=== PATIENT | female | born 1940 | race Caucasian/White ===

== ENCOUNTER 2024-01-05 13:37 | Emergency (ER) | payer MEDICARE, SELFPAY ==
[2024-01-05] VITALS (9 sets, daily range): BP systolic 96–121; BP diastolic 52–88; PULSE 53–131; TEMP 35.8; O2SAT 78–97; BMI 40.4
--- NOTE | 2024-01-05 13:48 | ED.FALL1 ---
HPI HPI - Fall General Chief Complaint: Fall Stated Complaint: GENERAL WEAKNESS/FALL Time Seen by Provider: 01/05/24 13:48 Source: patient and family Mode of arrival: ambulance History of Present Illness HPI Narrative: This patient brought to us by ambulance from her home. Apparently came home from work and found her laying on the floor. She was fine at 630 this morning when he left for work. She was talking to him and was fine. She is able to give his history that she was at home and adjusting her drapes when she turned around she tripped on the speaker. She could not get up to her came home. She is complaining of severe pain in her left shoulder area. She does take blood thinners and has minor contusions to the forehead but denies any severe headache. She also has pain in her right hip and knee. She has not had syncopal episodes and as I said seems to be a pretty reliable historian in regards to what happened today. She denies any chest pain or abdominal pain. Related Data Home Medications ?Medication ?Instructions ?Recorded ?Confirmed diltiazem HCl 180 mg 180 mg PO Q24H 01/05/24 01/05/24 capsule,extended release 24 hr metoprolol tartrate 50 mg tablet 50 mg PO Q12H 01/05/24 01/05/24 simvastatin 10 mg tablet 10 mg PO DAILY 01/05/24 01/05/24 warfarin 2.5 mg tablet 2.5 mg PO .COMPLEX 01/05/24 01/05/24 Allergies Allergy/AdvReac Type Severity Reaction Status Date / Time No Known Drug Allergies Allergy Verified 01/05/24 13:50 Opioid HPI Opioid Management Most Recent Pain and Opioid Data: Last Pain Scale 10 01/05/24 14:35 Last MAR Pain Assessment 01/05/24 14:03 Exam Narrative Exam Narrative: This patient was brought to us by paramedics on a [place] collar and backboard. She was seen immediately on arrival here. Her GCS is 15 she is awake alert and is able to describe the event. However she does appear both chronically ill. Her vital signs were noted she does have some tachycardia. She has a minor abrasion to the left frontal area. She has extreme pain in the right lower extremity and also left shoulder are her 2 areas of complaint. She was kept on the backboard and collar until all imaging was completed. She has good breath sounds bilaterally and there is no respiratory distress. Heart rate and rhythm are normal. Abdomen is benign with no pain with pelvic rocking. She is able to move the left lower extremity without too much difficulty but has a lot of pain in her femur area on the right side. MDM - Fall MDM Narrative Medical decision making narrative: Extensive imaging was done and consolidation the findings include a small 4 mm subdural hematoma that may be acute. There is no midline shift. She has a mid shaft fracture with bayonet apposition of the right femur. She has a left humeral head fracture. Her white blood cell count is substantially elevated. She has white blood cells in her urine. Her lactate level substantially elevated. She was started on antibiotic therapy intravenously early on and was given 2 L of fluid. As soon as we receive the CT report on her had [facility] was summoned and I gave report to the ER physician Dr. Brar in [facility]. He is excepted the case and transfer. At the time of report her vital signs were stable. The was updated to the serious nature of all these medical problems. Discharge Plan Discharge Chief Complaint: Fall Clinical Impression: Sepsis, Acute subdural hematoma, Femur fracture, right, Closed left humeral fracture Patient Disposition: [facility] Time of Disposition Decision: 15:56 Condition: Critical Prescriptions / Home Meds: No Action diltiazem HCl 180 mg capsule,extended release 24hr 180 mg PO Q24H metoprolol tartrate 50 mg tablet 50 mg PO Q12H simvastatin 10 mg tablet 10 mg PO DAILY warfarin 2.5 mg tablet 2.5 mg PO .COMPLEX Rx Instructions: 2.5 mg orally Take 2 tablets by mouth on Friday and 1 tablet by mouth on all other days; Print Language: Telugu Referrals: Physician,Non-Staff, [Physician] - 1 week
--- NOTE | 2024-01-05 13:49 | XR_ITS ---
The [address] [address] Patient Name: MARIA GAUDALUPE JAIN MRN: [id number] date: 1940 Sex: F Assigned Patient Location: ER Current Patient Location: ER Accession/Order Number: [id number] Exam Date: 01/05/2024 14:40 Report Date: 01/05/2024 15:31 At the request of: LAZARA ASHFORD Procedure: XR chest 1V EXAM: XR shoulder LT min 2V, XR chest 1V HISTORY: Fall COMPARISON: CT chest study dated 05/21/2016, left humerus study dated 04/17/2016 TECHNIQUE: 2 views of the left shoulder were obtained. FINDINGS: There is a comminuted fracture of the left humeral head with likely involvement of the left humeral neck. Major fracture line is transversely oriented. Impaction and/or overriding of major fracture fragments possibly up to 3 cm. Mild to moderate separation of fracture fragments. No obvious dislocation. Acromioclavicular joint appears grossly intact. Soft tissues are grossly within normal limits. AP view of the chest was obtained. FINDINGS: Heart is mildly enlarged. Mild ill-defined increased density overlying the left hemithorax may represent pleural effusion, atelectatic and/or infiltrative changes. There are what appear to be mild to moderately displaced fractures of the lateral left sixth and seventh ribs. Possibility of left hemothorax may at least be considered. No obvious pneumothorax. Comminuted fracture of the left humeral head/neck as noted above. XR/XR chest 1V IMPRESSION: Left shoulder study demonstrates comminuted fracture of left humeral head with likely involvement of the left humeral neck as described. Chest study demonstrates left rib fractures as noted. Ill-defined mild increased density overlying the left hemithorax which may represent mild atelectatic and/or infiltrative changes. Left pleural effusion, possibility of left hemothorax may at least be considered. No obvious pneumothorax. Follow-up as needed. Electronically authenticated by: TAINA HENNING Date: 01/05/2024 15:31
--- NOTE | 2024-01-05 13:49 | CT_ITS ---
The [address] [address] Patient Name: MARIA GUADALUPE JAIN MRN: [facility]:[id number] date: 1940 Sex: F Assigned Patient Location: ER Current Patient Location: ER Accession/Order Number: [id number] Exam Date: 01/05/2024 14:40 Report Date: 01/05/2024 15:28 At the request of: JOE BRODY Procedure: CT cervical spine wo con EXAM: CT head/brain wo con, CT cervical spine wo con HISTORY: Unwitnessed fall, found down COMPARISON: CT head 06/21/2018. TECHNIQUE: Axial noncontrast CT imaging of the head and cervical spine was performed with coronal and sagittal reformats. This CT exam was performed using one or more of the following dose reduction techniques: Automated exposure control, adjustment of the MA and/or kV according to patient size, or use of iterative reconstruction technique. FINDINGS: CT head Calvarium/skull base: No evidence of acute fracture or destructive lesion. Mastoids and middle ears demonstrate no substantial mucosal disease. Bilateral [place] ocular lens replacements area Paranasal sinuses: No air fluid levels. Brain: Right cerebral convexity extra-axial collection which is minimally more hyperdense compared to CSF greater along the frontal convexity measuring up to 4 mm in diameter consistent with age-indeterminate subdural hemorrhage. No acute large vascular territory infarct. Remote right basal ganglia, internal capsule and prasad radiata infarct. No mass lesion or mass effect. No hydrocephalus. CT cervical spine Alignment: No substantial subluxation. Vertebrae: Vertebral body heights are maintained. No fracture. Craniocervical junction: No focal abnormality. Degenerative changes: Moderate degenerative change greater involving the lower cervical spine with multilevel advanced disc height loss and sclerotic degenerative endplate change. Small posterior disc osteophyte complexes are present at multiple levels most prominent at C6-C7 and C7-T1 with resulting likely mild canal stenosis. Multilevel moderate and/or advanced facet arthropathy with mild and/or moderate uncovertebral arthropathy is noted with multilevel mild foraminal stenosis. There is advanced left facet arthropathy at C4-C5. Additional Comments: Atherosclerotic change. Visualized portion of the upper lungs are clear. CT/CT cervical spine wo con IMPRESSION: 1. Small age-indeterminate right cerebral convexity subdural hemorrhage greater anteriorly measuring up to 4 mm with minimal mass effect on adjacent brain parenchyma. This is near CSF attenuation suggesting this subacute hemorrhage, although hyperacute hemorrhage cannot be excluded. 2. 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 3. No acute fracture or traumatic malalignment of the cervical spine. 4. Degenerative change of the cervical spine detailed above. Notification of Results Provider/Agent notified: Dr. Joe Brody Time/Date notified: 01/05/2024 1:24 PM MDT Notifying Staff: Dr. Erickson Electronically authenticated by: YESI ERICKSON Date: 01/05/2024 15:28
--- NOTE | 2024-01-05 13:49 | CT_ITS ---
The [address] [address] Patient Name: MARIA GUADALUPE JAIN MRN: [facility]:[id number] date: 1940 Sex: F Assigned Patient Location: ER Current Patient Location: ER Accession/Order Number: [id number] Exam Date: 01/05/2024 14:40 Report Date: 01/05/2024 15:28 At the request of: JOE BRODY Procedure: CT head/brain wo con EXAM: CT head/brain wo con, CT cervical spine wo con HISTORY: Unwitnessed fall, found down COMPARISON: CT head 06/21/2018. TECHNIQUE: Axial noncontrast CT imaging of the head and cervical spine was performed with coronal and sagittal reformats. This CT exam was performed using one or more of the following dose reduction techniques: Automated exposure control, adjustment of the MA and/or kV according to patient size, or use of iterative reconstruction technique. FINDINGS: CT head Calvarium/skull base: No evidence of acute fracture or destructive lesion. Mastoids and middle ears demonstrate no substantial mucosal disease. Bilateral [place] ocular lens replacements area Paranasal sinuses: No air fluid levels. Brain: Right cerebral convexity extra-axial collection which is minimally more hyperdense compared to CSF greater along the frontal convexity measuring up to 4 mm in diameter consistent with age-indeterminate subdural hemorrhage. No acute large vascular territory infarct. Remote right basal ganglia, internal capsule and prasad radiata infarct. No mass lesion or mass effect. No hydrocephalus. CT cervical spine Alignment: No substantial subluxation. Vertebrae: Vertebral body heights are maintained. No fracture. Craniocervical junction: No focal abnormality. Degenerative changes: Moderate degenerative change greater involving the lower cervical spine with multilevel advanced disc height loss and sclerotic degenerative endplate change. Small posterior disc osteophyte complexes are present at multiple levels most prominent at C6-C7 and C7-T1 with resulting likely mild canal stenosis. Multilevel moderate and/or advanced facet arthropathy with mild and/or moderate uncovertebral arthropathy is noted with multilevel mild foraminal stenosis. There is advanced left facet arthropathy at C4-C5. Additional Comments: Atherosclerotic change. Visualized portion of the upper lungs are clear. CT/CT head/brain wo con IMPRESSION: 1. Small age-indeterminate right cerebral convexity subdural hemorrhage greater anteriorly measuring up to 4 mm with minimal mass effect on adjacent brain parenchyma. This is near CSF attenuation suggesting this subacute hemorrhage, although hyperacute hemorrhage cannot be excluded. 2. 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 3. No acute fracture or traumatic malalignment of the cervical spine. 4. Degenerative change of the cervical spine detailed above. Notification of Results Provider/Agent notified: Dr. Joe Brody Time/Date notified: 01/05/2024 1:24 PM MDT Notifying Staff: Dr. Erickson Electronically authenticated by: YESI ERICKSON Date: 01/05/2024 15:28
[2024-01-05] MEDS: 0.9 % SODIUM CHLORIDE 1,000 ML 999 ML IV ×2 (14:03→15:26)
[2024-01-05] MEDS: MORPHINE SULFATE 2 MG/ML SYRINGE IV ×2 (14:03→15:58)
[2024-01-05 14:05] LABS: Basophils Absolute Auto 0.1 10^3/uL (0.0-0.1); Basophils Percent Auto 0.3 % (0.2-2.0); Hematocrit 37.5 % (36.0-48.0); Hemoglobin 11.6 g/dL (12.0-16.0); Immature Granulocytes Abs Auto 0.15 10^3/uL (0.00-0.03); Immature Granulocytes Pct Auto 0.7 % (0.0-0.5); Lymphocytes Absolute Auto 1.6 10^3/uL (1.2-3.8); Lymphocytes Percent Auto 6.9 % (20.5-60.0); Mean Corpuscular HGB Conc 30.9 g/dL (29.9-35.2); Mean Corpuscular Hemoglobin 30.3 pg (26.7-34.0); Mean Corpuscular Volume 97.9 fL (81.0-99.0); Mean Platelet Volume 12.7 fL (9.5-13.5); Monocytes Absolute Auto 1.6 10^3/uL (0.3-0.8); Monocytes Percent Auto 6.9 % (1.7-12.0); Neutrophils Absolute Auto 19.3 10^3/uL (1.4-6.5); Neutrophils Percent Auto 85.2 % (43.0-75.0); Platelet Count 183 10^3/uL (150-450); Red Blood Count 3.83 10^6/uL (4.20-5.40); Red Cell Distribution Width 14.4 % (11.0-15.0); White Blood Count 22.6 10^3/uL (4.0-11.0)
[2024-01-05 14:21] LABS: Glucometer 309 mg/dL (74-106)
[2024-01-05 14:21] LABS: Alanine Aminotransferase 21 U/L (14-59); Albumin Level 3.1 g/dL (3.4-5.0); Alkaline Phosphatase 88 U/L (46-116); Anion Gap 22.1; Aspartate Amino Transferase 24 U/L (15-37); BUN Creatinine Ratio 13.7; Bilirubin Total 0.7 mg/dL (0.2-1.0); Calcium 8.8 mg/dL (8.5-10.1); Carbon Dioxide 19.2 mmol/L (21.0-32.0); Chloride 106 mmol/L (98-107); Estimated GFR (African America 29 (>=60); Estimated GFR (Non-African Ame 24 (>=60); Globulin 3.1 g/dL; Glucose 299 mg/dL (74-106); Potassium 3.3 mmol/L (3.5-5.1); Sodium 144 mmol/L (136-145); Total Protein 6.2 g/dL (6.4-8.2)
[2024-01-05 14:25] LABS: Lactate/Lactic Acid 8.8 mmol/L (0.4-2.0); Troponin I High Sensitivity 52.3 pg/mL (4.0-51.3)
[2024-01-05 14:37] LABS: Bilirubin Urine NEGATIVE (NEGATIVE); Blood Urine TRACE-I (NEGATIVE); Clarity Urine CLEAR (CLEAR); Color Urine YELLOW (YELLOW); Glucose Urine UA NEGATIVE (NEGATIVE); Ketones Urine NEGATIVE (NEGATIVE); Leukocyte Esterase Urine TRACE (NEGATIVE); Nitrite Urine POSITIVE (NEGATIVE); Protein Urine NEGATIVE (NEG/TRACE); Specific Gravity Urine >=1.030 (1.005-1.025); Urobilinogen Urine 0.2 EU/dL (0.2-1.0); pH Urine 5.5 (5.0-9.0)
[2024-01-05 14:46] LABS: Bacteria Urine LARGE #/HPF (NONE SEEN); Mucus Urine NONE SEEN (NONE SEEN); Squamous Epithelial Cell Urine FEW #/LPF (NONE/RARE)
--- NOTE | 2024-01-05 15:00 | CT_ITS ---
The [address] [address] Patient Name: MARIA GUADALUPE JAIN MRN: [id number] date: 1940 Sex: F Assigned Patient Location: ER Current Patient Location: ER Accession/Order Number: [id number] Exam Date: 01/05/2024 14:40 Report Date: 01/05/2024 15:45 At the request of: LAZARA ASHFORD Procedure: CT pelvis wo con EXAM: CT pelvis wo con HISTORY: Fall COMPARISON: None TECHNIQUE: CT pelvis study was performed without the use of intravenous contrast. Multiple axial images were obtained. Reformatted coronal and sagittal images were obtained and reviewed. FINDINGS: There is an oblique fracture of the likely middle one third of the right femoral shaft with a greater than one shaft's width medial displacement of the distal fracture fragment. Approximately 3.5 cm overriding of the fracture fragments. Moderate lateral angulation at the fracture site. Degenerative changes about the hip joints, [id number] on the right and mild on the left. No convincing evidence of femoral head or neck fracture. No convincing evidence of pelvic fracture. Sacroiliac joints appear grossly intact. [id number] degenerative changes visualized lower lumbar spine. Partially visualized Vastus medialis, intermedius and lateralis muscles on the right appear enlarged, assumed assumed to be related to edema and/or hematoma secondary to the fracture. Similar considerations though lesser findings suggested involving the more posterior muscles. Assumed lobulated uterus which may be related to mild fibroid changes.. No obvious adnexal mass. Maldonado catheter in the bladder with air in the bladder likely related to catheterization. Bladder is contracted and not well assessed. Moderate diverticulosis of the sigmoid colon, no obvious acute diverticulitis. CT/CT pelvis wo con IMPRESSION: CT pelvis study demonstrates displaced and angulated fracture of the right femoral shaft as described. Swelling of the adjacent musculature laterally suspect for edema and/or hematoma related to the fracture. Similar considerations though lesser findings suggested involving the more posterior muscles. Degenerative changes as noted. Assumed lobulated uterus which may be related to mild fibroid changes. Electronically authenticated by: TAINA HENNING Date: 01/05/2024 15:45
--- NOTE | 2024-01-05 15:00 | XR_ITS ---
The [address] [address] Patient Name: MARIA GUADALUPE JAIN MRN: [id number] date: 1940 Sex: F Assigned Patient Location: ER Current Patient Location: ER Accession/Order Number: [id number] Exam Date: 01/05/2024 14:40 Report Date: 01/05/2024 15:31 At the request of: LAZARA ASHFORD Procedure: XR shoulder LT min 2V EXAM: XR shoulder LT min 2V, XR chest 1V HISTORY: Fall COMPARISON: CT chest study dated 05/21/2016, left humerus study dated 04/17/2016 TECHNIQUE: 2 views of the left shoulder were obtained. FINDINGS: There is a comminuted fracture of the left humeral head with likely involvement of the left humeral neck. Major fracture line is transversely oriented. Impaction and/or overriding of major fracture fragments possibly up to 3 cm. Mild to moderate separation of fracture fragments. No obvious dislocation. Acromioclavicular joint appears grossly intact. Soft tissues are grossly within normal limits. AP view of the chest was obtained. FINDINGS: Heart is mildly enlarged. Mild ill-defined increased density overlying the left hemithorax may represent pleural effusion, atelectatic and/or infiltrative changes. There are what appear to be mild to moderately displaced fractures of the lateral left sixth and seventh ribs. Possibility of left hemothorax may at least be considered. No obvious pneumothorax. Comminuted fracture of the left humeral head/neck as noted above. XR/XR shoulder LT min 2V IMPRESSION: Left shoulder study demonstrates comminuted fracture of left humeral head with likely involvement of the left humeral neck as described. Chest study demonstrates left rib fractures as noted. Ill-defined mild increased density overlying the left hemithorax which may represent mild atelectatic and/or infiltrative changes. Left pleural effusion, possibility of left hemothorax may at least be considered. No obvious pneumothorax. Follow-up as needed. Electronically authenticated by: TAINA HENNING Date: 01/05/2024 15:31
[2024-01-05] MEDS: LEVOFLOXACIN IN DEXTROSE 5 % 500 MG/100 ML PIGGYBACK 100 MG IV (15:10)
--- NOTE | 2024-01-05 15:39 | ECG_ITS ---
The [facility] Test Date: 2024-01-05 Pat Name: MARIA GUADALUPE JAIN Department: Room: - Gender: Female [employer]: : 1940 Requested By: [id number] Order Number: [id number] Reading MD: Measurements Intervals [place] Rate: 126 P: -[id number] [place]: -[id number] QRS: -39 QRSD: 94 T: 125 QT: 344 QTc: 418 Interpretive Statements 74186 Atrial fibrillation with rapid ventricular response [address] depression, probably digitalis effect 26323 Twave abnormality, possible lateral ischemia or digitalis effect 5222 Moderate voltage criteria for LVH, may be normal variant 7200 Abnormal left axis deviation 8003 Consistent with pulmonary disease 9150 abnormal ECG Compared to ECG 01/05/2024 14:03:32 No significant changes
[2024-01-05 16:28] LABS: Prothrombin Time 32.8 sec (9.0-11.6)
== END 2024-01-05 16:40 | disposition short-term general hospital (02) ==
PROVIDERS: Emergency Provider Emergency Medicine Emergency Medical Services; PCP Nurse Practitioner Family
DX: S06.5X0A Traumatic subdural hemorrhage without loss of consciousness, initial encounter (principal); A41.9 Sepsis, unspecified organism; S72.301A Unspecified fracture of shaft of right femur, initial encounter for closed fracture; S42.202A Unspecified fracture of upper end of left humerus, initial encounter for closed fracture; W01.10XA Fall on same level from slipping, tripping and stumbling with subsequent striking against unspecified object, initial encounter; Z79.01 Long term (current) use of anticoagulants
CPT/HCPCS: 36415; 36416; 70450; 71045; 72125; 72192; 73030; 80053; 81001; 83605; 84484; 85025; 85610; 93005; 96374; 96375; 96376; 99285

== ENCOUNTER 2024-04-07 14:31 | Outpatient (REF) | payer MEDICARE, SELFPAY ==
[2024-04-07 14:44] LABS: Basophils Percent Auto 0.5 % (0.2-2.0); Eosinophils Absolute Auto 0.1 10^3/uL (0.0-0.7); Eosinophils Percent Auto 1.4 % (0.9-7.0); Hemoglobin 12.3 g/dL (12.0-16.0); Immature Granulocytes Abs Auto 0.02 10^3/uL (0.00-0.03); Immature Granulocytes Pct Auto 0.3 % (0.0-0.5); Lymphocytes Absolute Auto 2.1 10^3/uL (1.2-3.8); Lymphocytes Percent Auto 33.6 % (20.5-60.0); Mean Corpuscular HGB Conc 31.5 g/dL (29.9-35.2); Mean Corpuscular Hemoglobin 29.4 pg (26.7-34.0); Mean Corpuscular Volume 93.3 fL (81.0-99.0); Mean Platelet Volume 12.7 fL (9.5-13.5); Monocytes Absolute Auto 0.5 10^3/uL (0.3-0.8); Monocytes Percent Auto 8.4 % (1.7-12.0); Neutrophils Absolute Auto 3.5 10^3/uL (1.4-6.5); Neutrophils Percent Auto 55.8 % (43.0-75.0); Platelet Count 216 10^3/uL (150-450); Red Blood Count 4.18 10^6/uL (4.20-5.40); Red Cell Distribution Width 15.7 % (11.0-15.0); White Blood Count 6.3 10^3/uL (4.0-11.0)
[2024-04-07 15:02] LABS: Estimated Average Glucose 103 mg/dL; Glycohemoglobin A1C 5.2 % (4.5-6.2)
[2024-04-07 15:08] LABS: INR 1.24; Prothrombin Time 12.9 sec (9.0-11.6)
[2024-04-07 15:28] LABS: Alanine Aminotransferase 13 U/L (14-59); Albumin Globulin Ratio 0.8; Albumin Level 2.9 g/dL (3.4-5.0); Alkaline Phosphatase 122 U/L (46-116); Anion Gap 11.1; Aspartate Amino Transferase 12 U/L (15-37); Bilirubin Total 0.5 mg/dL (0.2-1.0); Calcium 8.9 mg/dL (8.5-10.1); Carbon Dioxide 29.6 mmol/L (21.0-32.0); Chloride 102 mmol/L (98-107); Chol HDL Ratio 2.5; Cholesterol 139 mg/dL (<=200); Estimated GFR (African America >60 (>=60); Estimated GFR (Non-African Ame 57 (>=60); Globulin 3.8 g/dL; Glucose 145 mg/dL (74-106); HDL Cholesterol 55 mg/dL (40-60); Potassium 3.7 mmol/L (3.5-5.1); Sodium 139 mmol/L (136-145); Thyroid Stimulating Hormone 3.942 uIU/mL (0.358-3.740); Total Protein 6.7 g/dL (6.4-8.2); Triglycerides 100 mg/dL (<=150)
== END 2024-04-07 14:32 | disposition home or self-care (01) ==
LOC: LAB 14:31
PROVIDERS: PCP Nurse Practitioner Family; Visit Provider Nurse Practitioner Family
DX: I48.91 Unspecified atrial fibrillation (principal)
CPT/HCPCS: 36415; 80053; 80061; 83036; 83525; 84439; 84443; 85025; 85610

== ENCOUNTER 2024-04-12 11:17 | Outpatient (OUT) | payer MEDICARE, SELFPAY ==
--- OUTSIDE RECORDS SUMMARY | 2024-04-12 11:37 | XMS_ITS | CCD ---
Author Organization [facility] Care Team Providers Care Siderographist Name Role Phone DANIEL ., DR DE LEON Admitting Unavailable HOY ., DR DE LEON Attending Unavailable JOSESITO, FATMATA Primary Care Unavailable HOY ., DR DE LEON Consulting Unavailable HOY ., DR DE LEON Admitting Unavailable HOY ., DR DE LEON Attending Unavailable JOSESITO, FATMATA Primary Care Unavailable HOY ., DR DE LEON Consulting Unavailable HOY ., DR DE LEON Admitting Unavailable HOY ., DR DE LEON Attending Unavailable JOSESITO, FATMATA Primary Care Unavailable HOY ., DR DE LEON Consulting Unavailable JOSESITO, FATMATA Primary Care Unavailable PAY ., DR BAEZ Admitting Unavailable PAY ., DR BAEZ Attending Unavailable HOLSTEIN, DR CONCEPCIÓN Wang Consulting Unavailable PAY ., DR BAEZ Consulting Unavailable YVONNE CHANDLER Consulting Unavailable JOSESITO, FATMATA Admitting Unavailable JOSESITO, FATMATA Attending Unavailable JOSESITO, FATMATA Primary Care Unavailable HOY ., DR DE LEON Admitting Unavailable HOY ., DR DE LEON Attending Unavailable JOSESITO, FATMATA Primary Care Unavailable HOY ., DR DE LEON Consulting Unavailable JOSESITO, FATMATA Admitting Unavailable JOSESITO, FATMATA Attending Unavailable JOSESITO, FATMATA Primary Care Unavailable DR BERTO ALEJO Consulting Unavailable JOSESITO, FATMATA Consulting Unavailable Josesito FOUR ROLL CALENDER OPERATOR - SWITCHBOARD RECEPTIONIST, Fatmata S Primary Care Provide r TAE LAWRENCE Referring Unavailable JOSESITO, FATMATA S Primary Care Unavailable TAE LAWRENCE Referring Unavailable JOSESITO, FATMATA S Primary Care Unavailable TAE LAWRENCE Referring Unavailable JOSESITO, FATMATA S Primary Care Unavailable GER GUZMAN Referring Unavailable JOSESITO, FATMATA S Primary Care Unavailable MOISES SANCHEZ Referring Unavailable MELINDATAE BUSTOS Referring Unavailable JOSESITO, FATMATA S Primary Care Unavailable AUSTIN ZEE Admitting Unavailable AUSTIN ZEE Attending Unavailable JOSESITO, FATMATA S Primary Care Unavailable ADELINE BURLESON Consulting Unavailable EDITH GOMEZ Consulting Unavailable AUSTIN ZEE Referring Unavailable JOSESITO, FATMATA S Primary Care Unavailable AUSTIN ZEE Referring Unavailable JOSESITO, FATMATA S Primary Care Unavailable BECKY FOLEY Consulting Unavailable BECKY FOLEY Admitting Unavailable BECKY FOLEY Attending Unavailable JOSESITO, FATMATA S Primary Care Unavailable GENNY NICOLE Consulting Unavailable AUSTIN ZEE Consulting Unavailable CELINA DIAZ Consulting Unavailable ELENO RODRIGUEZ Consulting Unavailabl e Allergies Allergy Classification Reported Allergen(s) Allergy Type Date of Onset Reaction(s) Facility (2 sources) Sulfonamides (Antibiotic) Drug allergy (disorder) 3 [facility] (3 sources) Penicillins Propensity to adverse reactions to drug 4 [facility] (3 sources) Sulfonamides (Antibiotic) Propensity to adverse reactions to drug 4 [facility] Medications Current Medications Medication Drug Class(es) Dates Sig (Normalized) Sig (Original) dilTIAZem hydrochloride 90 mg oral tablet (3 sources) Calcium Channel Maxime Start: 01-14-2024 take 1 tablet by mouth once daily dilTIAZem (CARDIZEM) 90 MG tablet Take 1 tablet by mouth daily 120 tablet 3 01/14/2024 Active gabapentin 300 mg oral capsule (1 source) Anti-epileptic Agent Start: 01-12-2024 End: 01-22-2024 take 1 capsule by mouth every eight hours gabapentin (NEURONTIN) 300 MG capsule Take 1 capsule by mouth every 8 (eight) hours for 10 days. 30 capsule 0 01/12/2024 01/22/2024 Active methocarbamol 500 mg oral tablet (1 source) Muscle Relaxant Start: 01-12-2024 End: 01-22-2024 take 1 tablet by mouth every six hours methocarbamol (ROBAXIN) 500 MG tablet Take 1 tablet by mouth every 6 hours for 10 days 40 tablet 0 01/12/2024 01/22/2024 Active metoprolol tartrate 50 mg oral tablet (3 sources) beta-Adrenergic Maxime Start: 01-14-2024 take 1 tablet by mouth twice daily metoprolol tartrate (LOPRESSOR) 50 MG tablet Take 1 tablet by mouth 2 times daily 60 tablet 3 01/14/2024 Active oxyCODONE hydrochloride 5 mg oral tablet (3 sources) Opioid Agonist Start: 01-14-2024 End: 02-13-2024 take 0.5 tablet by mouth every six hours as needed for pain oxyCODONE (ROXICODONE) 5 MG immediate release tablet Indications: Displaced fracture of right femoral neck (HCC) Take 0.5 tablets by mouth every 6 hours as needed for Pain for up to 30 days. Patient takes 2.5 mg on Friday/Friday////Friday. And takes 5 mg on Friday Max Daily Amount: 10 mg 15 tablet 0 01/14/2024 02/13/2024 Active sennosides, fpc 1.76 mg/ml oral solution (3 sources) Start: 01-14-2024 take 5 mL by mouth once daily senna (SENOKOT) 8.8 MG/5ML SYRP syrup Take 5 mLs by mouth nightly 105 mL 0 01/14/2024 Active warfarin sodium 5 mg oral tablet (3 sources) Vitamin K Antagonist Start: 01-14-2024 take 1 tablet by mouth once daily warfarin (COUMADIN) 5 MG tablet Take 1 tablet by mouth daily 30 tablet 3 01/14/2024 Active Problems Active Problems Problem Classification Problem Date Documented Date Episodic/Chronic Acute cerebrovascular disease (4 sources) Hematoma of subdural space of neuraxis; Translations: [SDH (subdural hematoma)] Onset: 4 01-05-2024 Chronic Administrative/socia l admission (9 sources) Patient encounter status; Translations: [Other specified counseling] Onset: 4 01-07-2024 Episodic Cardiac dysrhythmias (5 sources) Unspecified atrial fibrillation; Translations: [UNSPECIFIED ATRIAL FIBRILLATION] Onset: 2 Chronic Deficiency and other anemia (2 sources) Anemia, unspecified; Translations: [Anemia, unspecified] Onset: 4 Episodic Disorders of lipid metabolism (1 source) Pure hypercholesterolemia, unspecified; Translations: [PURE HYPERCHOLESTEROLEMIA UNSPEC] Onset: 3 Chronic Fracture of lower limb (6 sources) Closed fracture of shaft of right femur; Translations: [Unspecified fracture of shaft of right femur, initial encounter for closed fracture] Onset: 4 01-06-2024 Episodic Fracture of neck of femur (hip) (1 source) Fracture of unspecified part of neck of right femur, initial encounter for closed fracture; Translations: [Fracture of unspecified part of neck of right femur, initial encounter for closed fracture] Onset: 4 Episodic Fracture of upper limb (7 sources) Closed fracture of proximal left humerus; Translations: [Unspecified fracture of upper end of left humerus, initial encounter for closed fracture] Onset: 4 01-06-2024 Episodic Malaise and fatigue (1 source) Chronic fatigue, unspecified; Translations: [CHRONIC FATIGUE UNSPECIFIED] Onset: 3 Chronic Nutritional deficiencies (1 source) Vitamin D deficiency, unspecified; Translations: [VITAMIN D DEFICIENCY UNSPECIFIED] Onset: 2 Chronic Other nervous system disorders (1 source) Other acute postprocedural pain; Translations: [Other acute postprocedural pain] Onset: 4 Episodic Residual codes; unclassified (1 source) Insomnia, unspecified; Translations: [INSOMNIA UNSPECIFIED] Onset: 3 Episodic Residual codes; unclassified (1 source) Pain, unspecified; Translations: [Pain, unspecified] Onset: 4 Episodic Septicemia (except in labor) (4 sources) Infectious agent in bloodstream; Translations: [Sepsis, unspecified organism] Onset: 4 01-06-2024 Episodic Unclassified (2 sources) Traumatic subdural hemorrhage with loss of consciousness status unknown, initial encounter; Translations: [Traumatic subdural hemorrhage with loss of consciousness status unknown, initial encounter] Onset: 4 Urinary tract infections (1 source) Acute cystitis without hematuria; Translations: [Acute cystitis without hematuria] Onset: 4 Episodic Past or Other Problems Problem Classification Problem Date Documented Da te Episodic/Chronic Malaise and fatigue (4 sources) Other fatigue; Translations: [OTHER FATIGUE] Onset: 03-01-2022 Episodic Other aftercare (1 source) [facility] (current) use of anticoagulants; Translations: [NURSING HOME CURRNT USE ANTICOAGULANTS] Onset: 08-12-2022 Episodic Other aftercare (1 source) [facility] (current) use of aspirin; Translations: [NURSING HOME CURRENT USE OF ASPIRIN] Onset: 08-12-2022 Episodic Other aftercare (2 sources) Other medical terminologist (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 therapy; Translations: [Other senior care (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 therapy] Onset: 07-03-2023 Episodic Other circulatory disease (1 source) Personal history of transient ischemic attack (TIA), and cerebral infarction without residual deficits; Translations: [PERS HX TIA AND CI NO RESID DEFICIT] Onset: 08-12-2022 Episodic Other connective tissue disease (4 sources) Pain in left upper arm; Translations: [PAIN IN LEFT UPPER ARM] Onset: 08-09-2022 Episodic Other connective tissue disease (1 source) Pain in left foot; Translations: [PAIN IN LEFT FOOT] Onset: 03-07-2022 Episodic Phlebitis; thrombophlebitis and thromboembolism (1 source) Personal history of other venous thrombosis and embolism; Translations: [PERS HX OTH VENOUS THROMBOSIS AND EMBO] Onset: 08-12-2022 Episodic Residual codes; unclassified (1 source) Acquired absence of both cervix and uterus; Translations: [ACQUIRED ABSENCE BOTH CERVIX AND UTERUS] Onset: 08-12-2022 Episodic Results Test Name Value Interpretation Reference Range Facility XR FEMUR RIGHT (MIN 2 VIEWS) on 03-17-2024 XR FEMUR RIGHT (MIN 2 VIEWS) History: 83-year-old female status post fixation right femur Comparison: February 09, 2024 Findings: 2 views of the right femur (AP/lateral) in a skeletally mature patient showing redemonstration orthopedic hardware in the form intramedullary nail to right femur. No signs of hardware failure or loosening. Interval signs of callus formation when compared to prior films. No acute complication visualized. Impression: Stable hardware right female with interval healing Interpreted by: Austin Zee DO Signed by: Austin Zee DO 03/17/24 Final result Normal [facility] XR SHOULDER LEFT (MIN 2 VIEW S)on 03-17-2024 XR SHOULDER LEFT (MIN 2 VIEWS) History: 83-year-old female status post left shoulder arthroplasty Comparison: 02/18/2024 Findings: 3 views of the left shoulder (AP/scapular Y/Grashey) in a skeletally mature patient showing redemonstration of left reverse total shoulder arthroplasty without any acute complication visualized. Multiple bony fragments adjacent to proximal humerus, unchanged from prior evaluation. No subluxations or dislocations visualized. Impression: Left reverse shoulder arthroplasty without acute complication Interpreted by: Austin Zee DO Signed by: Austin Zee DO 03/17/24 Final result Normal [facility] XR FEMUR RIGHT (MIN 2 VIEWS) on 02-25-2024 XR FEMUR RIGHT (MIN 2 VIEWS) History: 83yo female with left proximal humerus and right femur fracture Comparison: 01/06/24 Findings: 2 radiographic views of the right femur (AP, lateral) re-demonstrating orthopedic hardware in the form of an intramedullary nail with interlocking screws. No evidence of hardware failure. Interval healing appreciated compared to prior serial imaging. Impression: Right femoral shaft fracture s/p IMN with routine healing ____ Interpreted by: Austin Zee DO Signed by: Austin Zee, 02/25/24 Final result Normal [facility] XR SHOULDER LEFT (MIN 2 VIEW S)on 02-25-2024 XR SHOULDER LEFT (MIN 2 VIEWS) History: 83yo female with left proximal humerus and right femur fracture Comparison: 01/06/24 Findings: 3 radiographic views of the left shoulder (AP, scapular y, grashey) re-demonstrating proximal humerus fracture in unchanged alignment. Interval healing appreciated when compared to prior serial imaging. No new fracture or dislocation. No soft tissue abnormalities. Viewable lung tissue is unremarkable. Impression: Left proximal humerus fracture with routine healing. Interpreted by: Austin Zee DO Signed by: Austin Zee, 02/25/24 Final result Normal [facility] Basic Metab w/rfx MGon 02-22 Anion gap [Moles/Vol] 6 mmol/L Low 9-16 [facility] Comment on above: Performed By: #### B MPX, PT, CBC ####[id number] [place] [address] [facility] Director: Sarath Olivera MD Calcium [Mass/Vol] 8.6 mg/dL Normal 8.6-10.4 [facility] Comment on above: Performed By: #### B MPX, PT, CBC ####[facility] [address] [place] [address] Lab Director: Sarath Olivera MD Chloride [Moles/Vol] 108 mmol/L High 98-107 [facility] Comment on above: Performed By: #### B MPX, PT, CBC ####[facility] [address] [place] [address] Lab Director: Sarath Olivera MD CO2 [Moles/Vol] 30 mmol/L Normal 20-31 [facility] Comment on above: Performed By: #### B MPX, PT, CBC ####[facility] [address] [place] [address] [phone] Director: Sarath Olivera MD Creatinine [Mass/Vol] 0.7 mg/dL Normal 0.50-0.90 [facility] Comment on above: Performed By: #### B MPX, PT, CBC ####[facility] [address] [place] [address] Lab Director: Sarath Olivera MD GFR/1.73 sq M.predicted among non-blacks MDRD (S/P/Bld) [Vol rate/Area] 86 mL/min/{1.73_m2} Normal >60 [facility] Comment on above: Result Comment: These results are not intended for use in patients <18 years of age. eGFR results are calculated without a race factor using the 2020 CKD-EPI equation. Careful clinical correlation is recommended, particularly when comparing to results calculated using previous equations. The CKD-EPI equation is less accurate in patients with extremes of muscle mass, extra-renal metabolism of creatine, excessive creatine ingestion, or following therapy that affects renal tubular secretion. Performed By: #### B MPX, PT, CBC ####[facility] [address] [place] [address] Lab Director: Sarath Olivera MD Glucose [Mass/Vol] 91 mg/dL Normal 74-99 [facility] Comment on above: Performed By: #### B MPX, PT, CBC ####[facility] [address] [place] [address] Lab Director: Sarath Olivera MD Potassium [Moles/Vol] 3.9 mmol/L Normal 3.7-5.3 [facility] Comment on above: Performed By: #### B MPX, PT, CBC ####[facility] [address] [place], [place] [phone] Director: Sarath Olivera MD Sodium [Moles/Vol] 144 mmol/L Normal 136-145 [facility] Comment on above: Performed By: #### B MPX, PT, CBC ####[facility] [address] [place], [place] [phone] Director: Sarath Olivera MD Urea nitrogen [Mass/Vol] 20 mg/dL Normal 8-23 [facility] Comment on above: Performed By: #### B MPX, PT, CBC ####[facility] [address] [place], [place] [address])[phone] Director: Sarath Olivera MD CBCon 02-23-2024 Erythrocyte distribution width (RBC) [Ratio] 17.4 % High 11.8-14.4 [facility] Comment on above: Performed By: #### B MPX, PT, CBC ####[facility] [address] [place], [place] [address])[phone] Director: Sarath Olivera MD Hematocrit (Bld) [Volume fraction] 35.7 % Low 36.3-47.1 [facility] Comment on above: Performed By: #### B MPX, PT, CBC ####[facility] [address] [place], [place] [phone] Director: Sarath Olivera MD Hemoglobin (Bld) [Mass/Vol] 10.5 g/dL Low 11.9-15.1 [facility] Comment on above: Performed By: #### B MPX, PT, CBC ####[facility] [address] [place] [address])[phone] Director: Sarath Olivera MD MCH (RBC) [Entitic mass] 30.0 pg Normal 25.2-33.5 [facility] Comment on above: Performed By: #### B MPX, PT, CBC ####[facility] [address] [place], [place] [address])[phone] Director: Sarath Olivera MD MCHC (RBC) [Mass/Vol] 29.4 g/dL Normal 28.4-34.8 [facility] Comment on above: Performed By: #### B MPX, PT, CBC ####[facility] [address] [place], [place] [address])[phone] Director: Sarath Olivera MD MCV (RBC) [Entitic vol] 102.0 fL Normal 82.6-102.9 [facility] Comment on above: Performed By: #### B MPX, PT, CBC ####[place], [place] [address])[phone] Director: Sarath Olivera MD NRBC Automated 0.0 per 100 WBC Normal 0.0 [facility] Comment on above: Performed By: #### B MPX, PT, CBC ####[facility] [address] [place], [place] [address])[phone] Director: Sarath Olivera MD Platelet mean volume (Bld) [Entitic vol] 11.8 fL Normal 8.1-13.5 [facility] Comment on above: Performed By: #### B MPX, PT, CBC ####[facility] [address] [place], [place] [address])[phone] Director: Sarath Olivera MD Platelets (Bld) [#/Vol] 181 10*3/uL Normal 138-453 [facility] Comment on above: Performed By: #### B MPX, PT, CBC ####[facility] [address] [place], [place] [id number])[phone] Director: Sarath Olivera MD RBC (Bld) [#/Vol] 3.50 10*6/uL Low 3.95-5.11 [facility] Comment on above: Performed By: #### B MPX, PT, CBC ####[facility] [address] [place] [address] [id number])[phone] Director: Sarath Olivera MD WBC (Bld) [#/Vol] 5.8 10*3/uL Normal 3.5-11.3 [facility] Comment on above: Performed By: #### B MPX, PT, CBC ####[address] [address])[phone] Director: Sarath Olivera MD PTon 02-23-2024 INR Coag (PPP) [Relative time] 1.6 {INR} Normal [facility] Comment on above: Result Comment: Therapeutic Range: Moderate Anticoagulant Intensity: INR = 2.0-3.0 High Anticoagulant Intensity: INR = 2.5-3.5 Performed By: #### B MPX, PT, CBC ####[facility] [address] [place] [address])[phone] Director: Sarath Olivera MD PT Coag (PPP) [Time] 18.8 s High 11.7-14.9 [facility] Comment on above: Performed By: #### B MPX, PT, CBC ####[facility] [address] [place], [place] [phone])[phone] Director: Sarath Olivera MD Basic Metab w/rfx MGon 02-21 Anion gap [Moles/Vol] 7 mmol/L Low 9-16 [facility] Comment on above: Performed By: #### B MPX, CBC ####[facility] [address] [place] [address] Lab Director: Sarath Olivera MD Calcium [Mass/Vol] 8.3 mg/dL Low 8.6-10.4 [facility] Comment on above: Performed By: #### B MPX, CBC ####[facility] [address] [place] [address] [id number])[phone] Director: Sarath Olivera MD Chloride [Moles/Vol] 107 mmol/L Normal 98-107 [facility] Comment on above: Performed By: #### B MPX, CBC ####[facility] [address] [place] [address] [phone] Director: Sarath Olivera MD CO2 [Moles/Vol] 28 mmol/L Normal 20-31 [facility] Comment on above: Performed By: #### B MPX, CBC ####[address] [address] Lab Director: Sarath Olivera MD Creatinine [Mass/Vol] 0.9 mg/dL Normal 0.50-0.90 [facility] Comment on above: Performed By: #### B MPX, CBC ####[address] [phone])[phone] Director: Sarath Olivera MD GFR/1.73 sq M.predicted among non-blacks MDRD (S/P/Bld) [Vol rate/Area] 67 mL/min/{1.73_m2} Normal >60 [facility] Comment on above: Result Comment: These results are not intended for use in patients <18 years of age. eGFR results are calculated without a race factor using the 2020 CKD-EPI equation. Careful clinical correlation is recommended, particularly when comparing to results calculated using previous equations. The CKD-EPI equation is less accurate in patients with extremes of muscle mass, extra-renal metabolism of creatine, excessive creatine ingestion, or following therapy that affects renal tubular secretion. Performed By: #### B MPX, CBC ####[address] [address] Lab Director: Sarath Olivera MD Glucose [Mass/Vol] 105 mg/dL High 74-99 [facility] Comment on above: Performed By: #### B MPX, CBC ####[facility] [address] [place], [place] [id number])[phone] Director: Sarath Olivera MD Potassium [Moles/Vol] 4.0 mmol/L Normal 3.7-5.3 [facility] Comment on above: Performed By: #### B MPX, CBC ####[facility] [address] [place], [place] [id number])[phone] Director: Sarath Olivera MD Sodium [Moles/Vol] 142 mmol/L Normal 136-145 [facility] Comment on above: Performed By: #### B MPX, CBC ####[facility] [address] [place], [place] [address])[phone] Director: Sarath Olivera MD Urea nitrogen [Mass/Vol] 24 mg/dL High 8-23 [facility] Comment on above: Performed By: #### B MPX, CBC ####[facility] [address] [place], [place] [address])[phone] Director: Sarath Olivera MD CBCon 02-22-2024 Erythrocyte distribution width (RBC) [Ratio] 17.2 % High 11.8-14.4 [facility] Comment on above: Performed By: #### B MPX, CBC ####[facility] [address] [place], [place] [address])[phone] Director: Sarath Olivera MD Hematocrit (Bld) [Volume fraction] 32.6 % Low 36.3-47.1 [facility] Comment on above: Performed By: #### B MPX, CBC ####[facility] [address] [place], [place] [id number])[phone] Director: Sarath Olivera MD Hemoglobin (Bld) [Mass/Vol] 9.9 g/dL Low 11.9-15.1 [facility] Comment on above: Performed By: #### B MPX, CBC ####[address] [address] Lab Director: Sarath Olivera MD MCH (RBC) [Entitic mass] 30.6 pg Normal 25.2-33.5 [facility] Comment on above: Performed By: #### B MPX, CBC ####[facility] [address] [place] [address])[phone] Director: Sarath Olivera MD MCHC (RBC) [Mass/Vol] 30.4 g/dL Normal 28.4-34.8 [facility] Comment on above: Performed By: #### B MPX, CBC ####[place], [place] [address])[phone] Director: Sarath Olivera MD MCV (RBC) [Entitic vol] 100.6 fL Normal 82.6-102.9 [facility] Comment on above: Performed By: #### B MPX, CBC ####[address] [address] Lab Director: Sarath Olivera MD NRBC Automated 0.0 per 100 WBC Normal 0.0 [facility] Comment on above: Performed By: #### B MPX, CBC ####[facility] [address] [place] [address] Lab Director: Sarath Olivera MD Platelet mean volume (Bld) [Entitic vol] 12.0 fL Normal 8.1-13.5 [facility] Comment on above: Performed By: #### B MPX, CBC ####[facility] [address] [place] [address] Lab Director: Sarath Olivera MD Platelets (Bld) [#/Vol] 192 10*3/uL Normal 138-453 [facility] Comment on above: Performed By: #### B MPX, CBC ####[facility] [address] [place], [place] [phone] Director: Sarath Olivera MD RBC (Bld) [#/Vol] 3.24 10*6/uL Low 3.95-5.11 [facility] Comment on above: Performed By: #### B MPX, CBC ####[facility] [address] [place], [place] [id number])[phone] Director: Sarath Olivera MD WBC (Bld) [#/Vol] 8.0 10*3/uL Normal 3.5-11.3 [facility] Comment on above: Performed By: #### B MPX, CBC ####[facility] [address] [place] [address] [id number])[phone] Director: Sarath Olivera MD PTon 02-22-2024 INR Coag (PPP) [Relative time] 1.6 {INR} Normal [facility] Comment on above: Result Comment: Therapeutic Range: Moderate Anticoagulant Intensity: INR = 2.0-3.0 High Anticoagulant Intensity: INR = 2.5-3.5 Performed By: #### P T ####[address] [phone])[phone] Director: Sarath Olivera MD PT Coag (PPP) [Time] 18.6 s High 11.7-14.9 [facility] Comment on above: Performed By: #### P T ####[facility] [address] [place], [place] [id number])[phone] Director: Sarath Olivera MD Basic Metab w/rfx MGon 02-20 Anion gap [Moles/Vol] 6 mmol/L Low 9-16 [facility] Comment on above: Performed By: #### D AU, UAMIC #### [facility] [place] [address] [employer] Operator: Sarath Olivera MD Calcium [Mass/Vol] 8.5 mg/dL Low 8.6-10.4 [facility] Comment on above: Performed By: #### Ashley CELESTE, UAMIC #### [facility] [address] [place] [address] [phone] [employer]: Sarath Olivera MD Chloride [Moles/Vol] 108 mmol/L High 98-107 [facility] Comment on above: Performed By: #### Ashley CELESTE, UAMIC #### [facility] [address] [place] [address] [employer]: Sarath Olivera MD CO2 [Moles/Vol] 29 mmol/L Normal 20-31 [facility] Comment on above: Performed By: #### Ashley CELESTE, UAMIC #### [address] [phone] [employer] Operator: Sarath Olivera MD Creatinine [Mass/Vol] 0.7 mg/dL Normal 0.50-0.90 [facility] Comment on above: Performed By: #### Ashley CELESTE UAMIC #### [address] [address] [employer] Operator: Sarath Olivera MD GFR/1.73 sq M.predicted among non-blacks MDRD (S/P/Bld) [Vol rate/Area] 81 mL/min/{1.73_m2} Normal >60 [facility] Comment on above: Result Comment: These results are not intended for use in patients <18 years of age. eGFR results are calculated without a race factor using the 2020 CKD-EPI equation. Careful clinical correlation is recommended, particularly when comparing to results calculated using previous equations. The CKD-EPI equation is less accurate in patients with extremes of muscle mass, extra-renal metabolism of creatine, excessive creatine ingestion, or following therapy that affects renal tubular secretion. Performed By: #### Ashley CELESTE, UAMIC #### [address] [phone] [employer] Operator: Sarath Olivera MD Glucose [Mass/Vol] 122 mg/dL High 74-99 [facility] Comment on above: Performed By: #### Ashley CELESTE, UAMIC #### [facility] [address] [place] [address] [employer] Operator: Sarath Olivera MD Potassium [Moles/Vol] 4.2 mmol/L Normal 3.7-5.3 [facility] Comment on above: Performed By: #### Ashley CELESTE, UAMIC #### [facility] [address] [place] [address] [employer] Operator: Sarath Olivera MD Sodium [Moles/Vol] 143 mmol/L Normal 136-145 [facility] Comment on above: Performed By: #### Ashley CELESTE, UAMIC #### [facility] [address] [place] [address] [employer] Operator: Sarath Olivera MD Urea nitrogen [Mass/Vol] 22 mg/dL Normal 8-23 [facility] Comment on above: Performed By: #### Ashley CELESTE UAMIC #### [facility] [address] [place] [address] [employer] Operator: Sarath Olivera MD CBCon 02-21-2024 Erythrocyte distribution width (RBC) [Ratio] 17.5 % High 11.8-14.4 [facility] Comment on above: Performed By: #### Ashley CELESTE UAMIC #### [facility] [address] [place] [address] [employer] Operator: Sarath Olivera MD Hematocrit (Bld) [Volume fraction] 32.1 % Low 36.3-47.1 [facility] Comment on above: Performed By: #### Ashley CELESTE, UAMIC #### [facility] [address] [place] [address] [employer] Operator: Sarath Olivera MD Hemoglobin (Bld) [Mass/Vol] 9.7 g/dL Low 11.9-15.1 [facility] Comment on above: Performed By: #### Ashley CELESTE UAMIC #### [address] [address] [employer] Operator: Sarath Olivera MD MCH (RBC) [Entitic mass] 30.5 pg Normal 25.2-33.5 [facility] Comment on above: Performed By: #### Ashley CELESTE UAMIC #### [address] [address] [employer] Operator: Sarath Olivera MD MCHC (RBC) [Mass/Vol] 30.2 g/dL Normal 28.4-34.8 [facility] Comment on above: Performed By: #### Ashley CELESTE UAMIC #### [address] [address] [employer] Operator: Sarath Olivera MD MCV (RBC) [Entitic vol] 100.9 fL Normal 82.6-102.9 [facility] Comment on above: Performed By: #### Ashley CELESTE UAMIC #### [address] [address] [employer] Operator: Sarath Olivera MD NRBC Automated 0.0 per 100 WBC Normal 0.0 [facility] Comment on above: Performed By: #### Ashley CELESTE UAMIC #### [address] [address] [employer] Operator: Sarath Olivera MD Platelet mean volume (Bld) [Entitic vol] 11.8 fL Normal 8.1-13.5 [facility] Comment on above: Performed By: #### Ashley CELESTE UAMIC #### [address] [address] [employer] Operator: Sarath Olivera MD Platelets (Bld) [#/Vol] 183 10*3/uL Normal 138-453 [facility] Comment on above: Performed By: #### Ashley CELESTE UAMIC #### [address] [address] [employer] Operator: Sarath Olivera MD RBC (Bld) [#/Vol] 3.18 10*6/uL Low 3.95-5.11 [facility] Comment on above: Performed By: #### Ashley CELESTE UAMIC #### [address] [address] [employer] Operator: Sarath Olivera MD WBC (Bld) [#/Vol] 10.7 10*3/uL Normal 3.5-11.3 [facility] Comment on above: Performed By: #### Ashley CELESTE UAMIC #### [address] [address] [employer] Operator: Sarath Olivera MD PTon 02-21-2024 INR Coag (PPP) [Relative time] 1.6 {INR} Normal [facility] Comment on above: Result Comment: Therapeutic Range: Moderate Anticoagulant Intensity: INR = 2.0-3.0 High Anticoagulant Intensity: INR = 2.5-3.5 Performed By: #### Ashley CELESTE UAMIC #### [address] [address] [employer] Operator: Sarath Olivera MD PT Coag (PPP) [Time] 18.8 s High 11.7-14.9 [facility] Comment on above: Performed By: #### Ashley CELESTE UAMIC #### [address] [address] [employer] Operator: Sarath Olivera MD Basic Metab w/rfx MGon 02-19 Anion gap [Moles/Vol] 6 mmol/L Low 9-16 [facility] Comment on above: Performed By: #### Ashley CELESTE UAMIC #### [address] [address] [employer] Operator: Sarath Olivera MD Calcium [Mass/Vol] 8.6 mg/dL Normal 8.6-10.4 [facility] Comment on above: Performed By: #### Ashley CELESTE, UAMIC #### [address] [address] [employer] Operator: Sarath Olivera MD Chloride [Moles/Vol] 107 mmol/L Normal 98-107 [facility] Comment on above: Performed By: #### Ashley CELESTE, UAMIC #### [address] [address] [employer] Operator: Sarath Olivera MD CO2 [Moles/Vol] 30 mmol/L Normal 20-31 [facility] Comment on above: Performed By: #### Ashley CELESTE, UAMIC #### [address] [address] [employer] Operator: Sarath Olivera MD Creatinine [Mass/Vol] 0.9 mg/dL Normal 0.50-0.90 [facility] Comment on above: Performed By: ###Everton CELESTE UAMIC #### [address] [address] [employer] Operator: Sarath Olivera MD GFR/1.73 sq M.predicted among non-blacks MDRD (S/P/Bld) [Vol rate/Area] 64 mL/min/{1.73_m2} Normal >60 [facility] Comment on above: Result Comment: These results are not intended for use in patients <18 years of age. eGFR results are calculated without a race factor using the 2020 CKD-EPI equation. Careful clinical correlation is recommended, particularly when comparing to results calculated using previous equations. The CKD-EPI equation is less accurate in patients with extremes of muscle mass, extra-renal metabolism of creatine, excessive creatine ingestion, or following therapy that affects renal tubular secretion. Performed By: #### Ashley CELESTE, UAMIC #### [address] [address] [employer] Operator: Sarath Olivera MD Glucose [Mass/Vol] 143 mg/dL High 74-99 [facility] Comment on above: Performed By: #### Ashley CELESTE, UAMIC #### [facility] [address] [place] [address] [employer] Operator: Sarath Olivera MD Potassium [Moles/Vol] 4.2 mmol/L Normal 3.7-5.3 [facility] Comment on above: Performed By: #### Ashley CELESTE, UAMIC #### [facility] [address] [place] [address] [employer] Operator: Sarath Olivera MD Sodium [Moles/Vol] 143 mmol/L Normal 136-145 [facility] Comment on above: Performed By: #### Ashley CELESTE UAMIC #### [facility] [address] [place] [address] [employer] Operator: Sarath Olivera MD Urea nitrogen [Mass/Vol] 20 mg/dL Normal 8-23 [facility] Comment on above: Performed By: #### Ashley CELESTE UAMIC #### [facility] [address] [place] [address] [employer] Operator: Sarath Olivera MD CBCon 02-20-2024 Erythrocyte distribution width (RBC) [Ratio] 17.4 % High 11.8-14.4 [facility] Comment on above: Performed By: #### Ashley CELESTE UAMIC #### [facility] [address] [place] [address] [employer] Operator: Sarath Olivera MD Hematocrit (Bld) [Volume fraction] 32.6 % Low 36.3-47.1 [facility] Comment on above: Performed By: #### Ashley CELESTE UAMIC #### [facility] [address] [place] [address] [employer] Operator: Sarath Olivera MD Hemoglobin (Bld) [Mass/Vol] 9.9 g/dL Low 11.9-15.1 [facility] Comment on above: Performed By: #### Ashley CELESTE UAMIC #### [address] [address] [employer] Operator: Sarath Olivera MD MCH (RBC) [Entitic mass] 30.7 pg Normal 25.2-33.5 [facility] Comment on above: Performed By: #### Ashley CELESTE UAMIC #### [address] [address] [employer] Operator: Sarath Olivera MD MCHC (RBC) [Mass/Vol] 30.4 g/dL Normal 28.4-34.8 [facility] Comment on above: Performed By: #### Ashley CELESTE UAMIC #### [address] [address] [employer] Operator: Sarath Olivera MD MCV (RBC) [Entitic vol] 100.9 fL Normal 82.6-102.9 [facility] Comment on above: Performed By: #### Ashley CELESTE UAMIC #### [address] [address] [employer] Operator: Sarath Olivera MD NRBC Automated 0.0 per 100 WBC Normal 0.0 [facility] Comment on above: Performed By: #### Ashley CELESTE UAMIC #### [address] [address] [employer] Operator: Sarath Olivera MD Platelet mean volume (Bld) [Entitic vol] 11.6 fL Normal 8.1-13.5 [facility] Comment on above: Performed By: #### Ashley CELESTE UAMIC #### [address] [address] [employer] Operator: Sarath Olivera MD Platelets (Bld) [#/Vol] 176 10*3/uL Normal 138-453 [facility] Comment on above: Performed By: #### Ashley CELESTE UAMIC #### [facility] [address] [place] [address] [employer] Operator: Sarath Olivera MD RBC (Bld) [#/Vol] 3.23 10*6/uL Low 3.95-5.11 [facility] Comment on above: Performed By: #### Ashley CELESTE UAMIC #### [address] [address] [employer] Operator: Sarath Olivera MD WBC (Bld) [#/Vol] 12.8 10*3/uL High 3.5-11.3 [facility] Comment on above: Performed By: #### Ashley CELESTE UAMIC #### [address] [address] [employer] Operator: Sarath Olivera MD PTon 02-20-2024 INR Coag (PPP) [Relative time] 1.7 {INR} Normal [facility] Comment on above: Result Comment: Therapeutic Range: Moderate Anticoagulant Intensity: INR = 2.0-3.0 High Anticoagulant Intensity: INR = 2.5-3.5 Performed By: #### Ashley CELESTE UAMIC #### [address] [address] [employer] Operator: Sarath Olivera MD PT Coag (PPP) [Time] 19.9 s High 11.7-14.9 [facility] Comment on above: Performed By: #### Ashley CELESTE UAMIC #### [facility] [address] [place] [address] [employer] Operator: Sarath Olivera MD Basic Metab w/rfx MGon 02-18 Anion gap [Moles/Vol] 7 mmol/L Low 9-16 [facility] Comment on above: Performed By: #### B MPX, PT, CBC ####[facility] [address] [place] [address] Lab Director: Sarath Olivera MD Calcium [Mass/Vol] 8.3 mg/dL Low 8.6-10.4 [facility] Comment on above: Performed By: #### B MPX, PT, CBC ####[facility] [address] [place], [place] [phone] Director: Sarath Olivera MD Chloride [Moles/Vol] 106 mmol/L Normal 98-107 [facility] Comment on above: Performed By: #### B MPX, PT, CBC ####[facility] [address] [place], [place] [address])[phone] Director: Sarath Olivera MD CO2 [Moles/Vol] 27 mmol/L Normal 20-31 [facility] Comment on above: Performed By: #### B MPX, PT, CBC ####[facility] [address] [place], [place] [address])[phone] Director: Sarath Olivera MD Creatinine [Mass/Vol] 0.8 mg/dL Normal 0.50-0.90 [facility] Comment on above: Performed By: #### B MPX, PT, CBC ####[facility] [address] [place], [place] [phone] Director: Sarath Olivera MD GFR/1.73 sq M.predicted among non-blacks MDRD (S/P/Bld) [Vol rate/Area] 78 mL/min/{1.73_m2} Normal >60 [facility] Comment on above: Result Comment: These results are not intended for use in patients <18 years of age. eGFR results are calculated without a race factor using the 2020 CKD-EPI equation. Careful clinical correlation is recommended, particularly when comparing to results calculated using previous equations. The CKD-EPI equation is less accurate in patients with extremes of muscle mass, extra-renal metabolism of creatine, excessive creatine ingestion, or following therapy that affects renal tubular secretion. Performed By: #### B MPX, PT, CBC ####[facility] [address] [place], [place] [phone] Director: Sarath Olivera MD Glucose [Mass/Vol] 174 mg/dL High 74-99 [facility] Comment on above: Performed By: #### B MPX, PT, CBC ####[facility] [address] [place], [place] [id number])[phone] Director: Sarath Olivera MD Potassium [Moles/Vol] 4.3 mmol/L Normal 3.7-5.3 [facility] Comment on above: Performed By: #### B MPX, PT, CBC ####[facility] [address] [place], [place] [phone] Director: Sarath Olivera MD Sodium [Moles/Vol] 140 mmol/L Normal 136-145 [facility] Comment on above: Performed By: #### B MPX, PT, CBC ####[facility] [address] [place], [place] [id number])[phone] Director: Sarath Olivera MD Urea nitrogen [Mass/Vol] 14 mg/dL Normal 8-23 [facility] Comment on above: Performed By: #### B MPX, PT, CBC ####[facility] [address] [place], [place] [phone] Director: Sarath Olivera MD CBCon 02-19-2024 Erythrocyte distribution width (RBC) [Ratio] 17.8 % High 11.8-14.4 [facility] Comment on above: Performed By: #### B MPX, PT, CBC ####[facility] [address] [place], [place] [address])[phone] Director: Sarath Olivera MD Hematocrit (Bld) [Volume fraction] 33.5 % Low 36.3-47.1 [facility] Comment on above: Performed By: #### B MPX, PT, CBC ####[facility] [address] [place] [address] Lab Director: Sarath Olivera MD Hemoglobin (Bld) [Mass/Vol] 9.7 g/dL Low 11.9-15.1 [facility] Comment on above: Performed By: #### B MPX, PT, CBC ####[facility] [address] [place], [place] [phone])[phone] Director: Sarath Olivera MD MCH (RBC) [Entitic mass] 31.1 pg Normal 25.2-33.5 [facility] Comment on above: Performed By: #### B MPX, PT, CBC ####[facility] [address] [place] [address])[phone] Director: Sarath Olivera MD MCHC (RBC) [Mass/Vol] 29.0 g/dL Normal 28.4-34.8 [facility] Comment on above: Performed By: #### B MPX, PT, CBC ####[facility] [address] [place], [place] [address])[phone] Director: Sarath Olivera MD MCV (RBC) [Entitic vol] 107.4 fL High 82.6-102.9 [facility] Comment on above: Performed By: #### B MPX, PT, CBC ####[facility] [address] [place] [address] Lab Director: Sarath Olivera MD NRBC Automated 0.0 per 100 WBC Normal 0.0 [facility] Comment on above: Performed By: #### B MPX, PT, CBC ####[facility] [address] [place] [address] Lab Director: Sarath Olivera MD Platelet mean volume (Bld) [Entitic vol] 11.5 fL Normal 8.1-13.5 [facility] Comment on above: Performed By: #### B MPX, PT, CBC ####[facility] [address] [place], [place] [phone])[phone] Director: Sarath Olivera MD Platelets (Bld) [#/Vol] 165 10*3/uL Normal 138-453 [facility] Comment on above: Performed By: #### B MPX, PT, CBC ####[facility] [address] [place], [place] [phone])[phone] Director: Sarath Olivera MD RBC (Bld) [#/Vol] 3.12 10*6/uL Low 3.95-5.11 [facility] Comment on above: Performed By: #### B MPX, PT, CBC ####[place], [place] [address])[phone] Director: Sarath Olivera MD WBC (Bld) [#/Vol] 10.3 10*3/uL Normal 3.5-11.3 [facility] Comment on above: Performed By: #### B MPX, PT, CBC ####[facility] [address] [place], [place] [id number])[phone] Director: Sarath Olivera MD PTon 02-19-2024 INR Coag (PPP) [Relative time] 1.7 {INR} Normal [facility] Comment on above: Result Comment: Therapeutic Range: Moderate Anticoagulant Intensity: INR = 2.0-3.0 High Anticoagulant Intensity: INR = 2.5-3.5 Performed By: #### B MPX, PT, CBC ####[facility] [address] [place], [place] [phone])[phone] Director: Sarath Olivera MD PT Coag (PPP) [Time] 19.3 s High 11.7-14.9 [facility] Comment on above: Performed By: #### B MPX, PT, CBC ####[facility] [address] [place], [place] [phone] Director: Sarath Olivera MD CBC with Diffon 02-18-2024 Abs. Basophil <0.03 Normal 0.00-0.20 [facility] Comment on above: Performed By: #### P T, CMPX, CDP ####[place], [place] [address])[phone] Director: Sarath Olivera MD Abs. Eosinophil <0.03 Normal 0.00-0.44 [facility] Comment on above: Performed By: #### P T, CMPX, CDP ####[place], [place] [address])[phone] Director: Sarath Olivera MD Abs.Imm.Granulocyte 0.06 k/uL Normal 0.00-0.30 [facility] Comment on above: Performed By: #### P T, CMPX, CDP ####[place], [place] [address])[phone] Director: Sarath Olivera MD Abs.Neutrophil (Seg) 9.40 k/uL High 1.50-8.10 [facility] Comment on above: Performed By: #### P T, CMPX, CDP ####[place], [place] [address])[phone] Director: Sarath Olivera MD Basophils/100 WBC (Bld) 0 % Normal 0-2 [facility] Comment on above: Performed By: #### P T, CMPX, CDP ####[place], [place] [address])[phone] Director: Sarath Olivera MD Eosinophils/100 WBC (Bld) 0 % Low 1-4 [facility] Comment on above: Performed By: #### P T, CMPX, CDP ####[place], [place] [address])[phone] Director: Sarath Olivera MD Erythrocyte distribution width (RBC) [Ratio] 17.9 % High 11.8-14.4 [facility] Comment on above: Performed By: #### P T, CMPX, CDP ####[facility] [address] [place], [place] [id number])[phone] Director: Sarath Olivera MD Hematocrit (Bld) [Volume fraction] 39.2 % Normal 36.3-47.1 [facility] Comment on above: Performed By: #### P T, CMPX, CDP ####[facility] [address] [place], [place] [phone])[phone] Director: Sarath Olivera MD Hemoglobin (Bld) [Mass/Vol] 11.9 g/dL Normal 11.9-15.1 [facility] Comment on above: Performed By: #### P T, CMPX, CDP ####[facility] [address] [place], [place] [phone] Director: Sarath Olivera MD Immature granulocytes/100 WBC (Bld) 1 % High 0 [facility] Comment on above: Performed By: #### P T, CMPX, CDP ####[facility] [address] [place], [place] [id number])[phone] Director: Sarath Olivera MD Lymphocytes (Bld) [#/Vol] 1.51 10*3/uL Normal 1.10-3.70 [facility] Comment on above: Performed By: #### P T, CMPX, CDP ####[facility] [address] [place], [place] [id number])[phone] Director: Sarath Olivera MD Lymphocytes/100 WBC (Bld) 13 % Low 24-43 [facility] Comment on above: Performed By: #### P T, CMPX, CDP ####[facility] [address] [place], [place] [phone] Director: Sarath Olivera MD MCH (RBC) [Entitic mass] 30.9 pg Normal 25.2-33.5 [facility] Comment on above: Performed By: #### P T, CMPX, CDP ####[facility] [address] [place], [place] [phone])[phone] Director: Sarath Olivera MD MCHC (RBC) [Mass/Vol] 30.4 g/dL Normal 28.4-34.8 [facility] Comment on above: Performed By: #### P T, CMPX, CDP ####[facility] [address] [place] [address] [id number])[phone] Director: Sarath Olivera MD MCV (RBC) [Entitic vol] 101.8 fL Normal 82.6-102.9 [facility] Comment on above: Performed By: #### P T, CMPX, CDP ####[facility] [address] [place] [address])[phone] Director: Sarath Olivera MD Monocytes (Bld) [#/Vol] 0.50 10*3/uL Normal 0.10-1.20 [facility] Comment on above: Performed By: #### P T, CMPX, CDP ####[facility] [address] [place] [address] [phone] Director: Sarath Olivera MD Monocytes/100 WBC (Bld) 4 % Normal 3-12 [facility] Comment on above: Performed By: #### P T, CMPX, CDP ####[address] [id number])[phone] Director: Sarath Olivera MD Neutrophil (Seg) 82 % High 36-65 [facility] Comment on above: Performed By: #### P T, CMPX, CDP ####[facility] [address] [place] [address] [id number])[phone] Director: Sarath Olivera MD NRBC Automated 0.0 per 100 WBC Normal 0.0 [facility] Comment on above: Performed By: #### P T, CMPX, CDP ####[facility] [address] [place] [address] [phone] Director: Sarath Olivera MD Platelet mean volume (Bld) [Entitic vol] 11.2 fL Normal 8.1-13.5 [facility] Comment on above: Performed By: #### P T, CMPX, CDP ####[facility] [address] [place], [place] [id number])[phone] Director: Sarath Olivera MD Platelets (Bld) [#/Vol] 254 10*3/uL Normal 138-453 [facility] Comment on above: Performed By: #### P T, CMPX, CDP ####[facility] [address] [place], [place] [id number])[phone] Director: Sarath Olivera MD RBC (Bld) [#/Vol] 3.85 10*6/uL Low 3.95-5.11 [facility] Comment on above: Performed By: #### P T, CMPX, CDP ####[facility] [address] [place] [address] [id number])[phone] Director: Sarath Olivera MD RBC morphology finding Nom (Bld) ANISOCYTOSIS PRESENT Normal [facility] Comment on above: Performed By: #### P T, CMPX, CDP ####[facility] [address] [place], [place] [id number])[phone] Director: Sarath Olivera MD WBC (Bld) [#/Vol] 11.5 10*3/uL High 3.5-11.3 [facility] Comment on above: Performed By: #### P T, CMPX, CDP ####[facility] [address] [place], [place] [id number])[phone] Director: Sarath Olivera MD Comp Metabolic Pr/rfx MGon 0 7- Albumin [Mass/Vol] 3.6 g/dL Normal 3.5-5.2 [facility] Comment on above: Performed By: #### P T, CMPX, CDP ####[facility] [address] [place], [place] [id number])[phone] Director: Sarath Olivera MD Albumin/Glob Ratio 1.0 Normal 1.0-2.5 [facility] Comment on above: Performed By: #### P T, CMPX, CDP ####[facility] [address] [place], [place] [id number])[phone] Director: Sarath Olivera MD Alkaline Phos 131 U/L High 35-104 [facility] Comment on above: Performed By: #### P T, CMPX, CDP ####[facility] [address] [place] [address] [id number])[phone] Director: Sarath Olivera MD ALT [Catalytic activity/Vol] 7 U/L Low 10-35 [facility] Comment on above: Performed By: #### P T, CMPX, CDP ####[facility] [address] [place] [address] [phone] Director: Sarath Olivera MD Anion gap [Moles/Vol] 13 mmol/L Normal 9-16 [facility] Comment on above: Performed By: #### P T, CMPX, CDP ####[facility] [address] [place] [address] [phone] Director: Sarath Olivera MD AST [Catalytic activity/Vol] 26 U/L Normal 10-35 [facility] Comment on above: Performed By: #### P T, CMPX, CDP ####[facility] [address] [place] [address] [phone] Director: Sarath Olivera MD Bilirubin [Mass/Vol] 0.5 mg/dL Normal 0.00-1.20 [facility] Comment on above: Performed By: #### P T, CMPX, CDP ####[facility] [address] [place], [place] [phone] Director: Sarath Olivera MD Calcium [Mass/Vol] 9.0 mg/dL Normal 8.6-10.4 [facility] Comment on above: Performed By: #### P T, CMPX, CDP ####[facility] [address] [place] [address] 85[address])[phone] Director: Sarath Olivera MD Chloride [Moles/Vol] 103 mmol/L Normal 98-107 [facility] Comment on above: Performed By: #### P T, CMPX, CDP ####[facility] [address] [place] [address] 86002[facility])[phone] Director: Sarath Olivera MD CO2 [Moles/Vol] 27 mmol/L Normal 20-31 [facility] Comment on above: Performed By: #### P T, CMPX, CDP ####[address] [address])[phone] Director: Sarath Olivera MD Creatinine [Mass/Vol] 0.9 mg/dL Normal 0.50-0.90 [facility] Comment on above: Performed By: #### P T, CMPX, CDP ####[address] [address])[phone] Director: Sarath Olivera MD GFR/1.73 sq M.predicted among non-blacks MDRD (S/P/Bld) [Vol rate/Area] 61 mL/min/{1.73_m2} Normal >60 [facility] Comment on above: Result Comment: These results are not intended for use in patients <18 years of age. eGFR results are calculated without a race factor using the 2020 CKD-EPI equation. Careful clinical correlation is recommended, particularly when comparing to results calculated using previous equations. The CKD-EPI equation is less accurate in patients with extremes of muscle mass, extra-renal metabolism of creatine, excessive creatine ingestion, or following therapy that affects renal tubular secretion. Performed By: #### P T, CMPX, CDP ####[address] [phone] Director: Sarath Olivera MD Glucose [Mass/Vol] 240 mg/dL High 74-99 [facility] Comment on above: Performed By: #### P T, CMPX, CDP ####[facility] [address] [place], [place] [phone] Director: Sarath Olivera MD Potassium [Moles/Vol] 4.4 mmol/L Normal 3.7-5.3 [facility] Comment on above: Performed By: #### P T, CMPX, CDP ####[facility] [address] [place], [place] [phone] Director: Sarath Olivera MD Protein [Mass/Vol] 6.4 g/dL Low 6.6-8.7 [facility] Comment on above: Performed By: #### P T, CMPX, CDP ####[facility] [address] [place], [place] [phone] Director: Sarath Olivera MD Sodium [Moles/Vol] 143 mmol/L Normal 136-145 [facility] Comment on above: Performed By: #### P T, CMPX, CDP ####[facility] [address] [place], [place] [phone] Director: Sarath Olivera MD Urea nitrogen [Mass/Vol] 10 mg/dL Normal 8-23 [facility] Comment on above: Performed By: #### P T, CMPX, CDP ####[facility] [address] [place], [place] [phone] Director: Sarath Olivera MD PTon 02-18-2024 INR Coag (PPP) [Relative time] 1.4 {INR} Normal [facility] Comment on above: Result Comment: Therapeutic Range: Moderate Anticoagulant Intensity: INR = 2.0-3.0 High Anticoagulant Intensity: INR = 2.5-3.5 Performed By: #### P T, CMPX, CDP ####[facility] [address] [place], [place] [phone] lab Director: Sarath Olivera MD PT Coag (PPP) [Time] 17.1 s High 11.7-14.9 [facility] Comment on above: Performed By: #### P T, CMPX, CDP ####[facility] CenterCoCubes.comTqqbpqupxwdp3799 [place] [address] lab Director: Sarath Olivera MD Type + Screenon 02-18-2024 Type + Screen Sample Expiration 02/20/2024,2359 Arm Band Number [id number] ABO/Rh(D) O POSITIVE Antibody Screen NEGATIVE Unit Number [id number] Blood Component Type Leukocyte Reduced Red Cell Unit Division 00 Status of Unit REL FROM ALLOC Transfusion Status OK TO TRANSFUSE Crossmatch Result COMPATIBLE Unit Number [id number] Blood Component Type Leukocyte Reduced Red Cell Unit Division 00 Status of Unit REL FROM ALLOC Transfusion Status OK TO TRANSFUSE Crossmatch Result COMPATIBLE Normal [facility] Comment on above: Performed By: #### T YS ####[facility] CenterCoCubes.comVqdqrfnmxxmt5295 [place] [address] lab Director: Sarath Olivera MD XR SHOULDER LEFT (MIN 2 VIEW S)on 02-18-2024 XR SHOULDER LEFT (MIN 2 VIEWS) EXAMINATION: XRAY VIEWS OF THE LEFT SHOULDER 02/18/2024 10:57 am COMPARISON: Left shoulder radiographs performed 02/09/2024. HISTORY: ORDERING SYSTEM PROVIDED HISTORY: Post Op in PACU please, thank you!! TECHNOLOGIST PROVIDED HISTORY: Post Op in PACU please, thank you!! FINDINGS: There is a left shoulder arthroplasty without immediate complication. The AC joint is maintained. There is postsurgical change in the adjacent soft tissues. IMPRESSION: Left shoulder arthroplasty without immediate complication. Interpreted by: Lucian Dee MD Signed by: Lucian Dee MD 02/18/24 Final result Normal [facility] APTTon 02-17-2024 aPTT Coag (Bld) [Time] 28.7 s Normal 23.0-36.5 [facility] Comment on above: Result Comment: IV Heparin Therapy Range: 66.0-92.0 sec Performed By: #### P T, PTT ####[address] [address] Lab Director: Sarath Olivera MD aPTT Coag (Bld) [Time] 30.9 s Normal 23.0-36.5 [facility] Comment on above: Result Comment: IV Heparin Therapy Range: 66.0-92.0 sec Performed By: #### P TT, PT ####[address] [address] Lab Director: Sarath Olivera MD FFP, Transfuseon 02-17-2024 FFP, Transfuse Unit Number [id number] Blood Component Type FRESH PLASMA Unit Division 00 Status of Unit TRANSFUSED Transfusion Status OK TO TRANSFUSE Normal [facility] Comment on above: Performed By: #### T FFP ####[address] [address] [facility] Director: Sarath Olivera MD FFP, Transfuse Unit Number [id number] Blood Component Type FRESH PLASMA Unit Division 00 Status of Unit TRANSFUSED Transfusion Status OK TO TRANSFUSE Normal [facility] Comment on above: Performed By: #### T FFP ####[address] [address] Lab Director: Sarath Olivera MD PTon 02-17-2024 INR Coag (PPP) [Relative time] 1.5 {INR} Normal [facility] Comment on above: Result Comment: Therapeutic Range: Moderate Anticoagulant Intensity: INR = 2.0-3.0 High Anticoagulant Intensity: INR = 2.5-3.5 Performed By: #### P T, PTT ####[address] [address] Lab Director: Sarath Olivera MD PT Coag (PPP) [Time] 17.4 s High 11.7-14.9 [facility] Comment on above: Performed By: #### P T, PTT ####[address] [phone] lab Director: Sarath Olivera MD INR Coag (PPP) [Relative time] 1.7 {INR} Normal [facility] Comment on above: Result Comment: Therapeutic Range: Moderate Anticoagulant Intensity: INR = 2.0-3.0 High Anticoagulant Intensity: INR = 2.5-3.5 Performed By: #### P TT, PT ####[facility] [address] [place], [place] [phone] Lab Director: Sarath Olivera MD PT Coag (PPP) [Time] 19.8 s High 11.7-14.9 [facility] Comment on above: Performed By: #### P TT, PT ####[facility] [address] [place], [place] [phone] lab Director: Sartah Olivera MD PT (Whole Blood)on 4 Intl. Normal. Ratio 2.0 Normal [facility] Comment on above: Result Comment: Therapeutic Range: Moderate Anticoagulant Intensity: INR = 2.0-3.0 High Anticoagulant Intensity: INR = 2.5-3.5 PT Coag (PPP) [Time] 23.6 s High 10.4-14.2 [facility] CBC with Auto Differentialon 02-02-2024 Basophils (Bld) [#/Vol] [employer] Basophils/100 WBC (Bld) 0 % 0 - 2 % [facility] Eosinophils (Bld) [#/Vol] 0.08 10*3/uL [facility] Eosinophils/100 WBC (Bld) 1 % 1 - 4 % [facility] Erythrocyte distribution width (RBC) [Ratio] 16.1 % High 11.8 - 14.4 % [facility] Hematocrit (Bld) [Volume fraction] 33.7 % Low 36.3 - 47.1 % [facility] Hemoglobin (Bld) [Mass/Vol] 10.4 g/dL Low 11.9 - 15.1 g/dL [facility] Immature granulocytes (Bld) [#/Vol] [facility] Immature granulocytes/100 WBC (Bld) 0 % 0 [facility] Interpretation and review of laboratory results Abnormal [facility] Lymphocytes/100 WBC (Bld) 34 % 24 - 43 % [facility] Lymphocytes/100 WBC (Bld) 1.89 % [facility] MCH (RBC) [Entitic mass] 30.6 pg 25.2 - 33.5 pg [facility] MCHC (RBC) [Mass/Vol] 30.9 g/dL 28.4 - 34.8 g/dL [facility] MCV (RBC) [Entitic vol] 99.1 fL 82.6 - 102.9 fL [facility] Monocytes/100 WBC (Bld) 8 % 3 - 12 % [facility] Monocytes/100 WBC (Bld) 0.44 % [facility] Neutrophils/100 WBC (Bld) 57 % 36 - 65 % [facility] Nucleated RBC/100 WBC (Bld) [Ratio] 0.0 % 0.0 per 100 WBC [facility] Platelet mean volume (Bld) [Entitic vol] 11.6 fL 8.1 - 13.5 fL [facility] Platelets (Bld) [#/Vol] 250 10*3/uL [facility] RBC (Bld) [#/Vol] 3.40 10*6/uL Low 3.95 - 5.1 1 m/uL [facility] Segmented neutrophils/100 WBC (Bld) 3.17 % [facility] WBC other (Bld) [#/Vol] 5.6 [facility] CBC with Diffon 02-02-2024 Abs. Basophil <0.03 Normal 0.00-0.20 [facility] Comment on above: Performed By: #### C P, CDP #### [facility] [address] [place] [address] [employer] Operator: Concepción De La Torre MD Abs.Imm.Granulocyte <0.03 Normal 0.00-0.30 [facility] Comment on above: Performed By: #### C P, CDP #### [facility] [address] [place], [facility]83 [employer] Operator: Concepción De La Torre MD Abs.Neutrophil (Seg) 3.17 k/uL Normal 1.50-8.[address] [facility] Comment on above: Performed By: #### C P, CDP #### [address] [place], [facility]83 [employer]: Concepción De La Torre MD Basophils/100 WBC (Bld) 0 % Normal 0-2 [facility] Comment on above: Performed By: #### C P, CDP #### [address] [place], [place] [address] [employer]: Concepción De La Torre MD Eosinophils (Bld) [#/Vol] 0.08 10*3/uL Normal 0.00-0.44 [facility] Comment on above: Performed By: #### C P, CDP #### [address] [place], [facility]83 [employer]: Concepción De La Torre MD Eosinophils/100 WBC (Bld) 1 % Normal 1-4 [facility] Comment on above: Performed By: #### C P, CDP #### [address] [place], [facility]83 [employer]: Concepción De La Torre MD Erythrocyte distribution width (RBC) [Ratio] 16.1 % High 11.8-14.4 [facility] Comment on above: Performed By: #### C P, CDP #### [address] [place], [facility]83 [employer]: Concepción De La Torre MD Hematocrit (Bld) [Volume fraction] 33.7 % Low 36.3-47.1 [facility] Comment on above: Performed By: #### C P, CDP #### [address] [place] [id number] [employer]: Concepción De La Torre MD Hemoglobin (Bld) [Mass/Vol] 10.4 g/dL Low 11.9-15.1 [facility] Comment on above: Performed By: #### C P, CDP #### [facility] [address] [place], [place] [phone] [employer]: Concepción De La Torre MD Immature granulocytes/100 WBC (Bld) 0 % Normal 0 [facility] Comment on above: Performed By: #### C P, CDP #### [facility] [address] [place], [place] [phone] [employer]: Concepción De La Torre MD Lymphocytes (Bld) [#/Vol] 1.89 10*3/uL Normal 1.10-3.70 [facility] Comment on above: Performed By: #### C P, CDP #### [address] [place], [facility]83 [employer]: Concepción De La Torre MD Lymphocytes/100 WBC (Bld) 34 % Normal 24-43 [facility] Comment on above: Performed By: #### C P, CDP #### [address] [place], [place] [phone] [employer]: Concepción De La Torre MD MCH (RBC) [Entitic mass] 30.6 pg Normal 25.2-33.5 [facility] Comment on above: Performed By: #### C P, CDP #### [address] [place], [place] [phone] [employer]: Concepción De La Torre MD MCHC (RBC) [Mass/Vol] 30.9 g/dL Normal 28.4-34.8 [facility] Comment on above: Performed By: #### C P, CDP #### [address] [place] [address] [employer] Operator: Concepción De La Torre MD MCV (RBC) [Entitic vol] 99.1 fL Normal 82.6-102.9 [facility] Comment on above: Performed By: #### C P, CDP #### [facility] [address] [place] [address] [employer]: Concepción De La Torre MD Monocytes (Bld) [#/Vol] 0.44 10*3/uL Normal 0.10-1.20 [facility] Comment on above: Performed By: #### C P, CDP #### [facility] [address] [place], [place] [phone] [employer]: Concepción De La Torre MD Monocytes/100 WBC (Bld) 8 % Normal 3-12 [facility] Comment on above: Performed By: #### C P, CDP #### [address] [place] [address] [employer]: Concepción De La Torre MD Neutrophil (Seg) 57 % Normal 36-65 [facility] Comment on above: Performed By: #### C P, CDP #### [address] [place], [place] [phone] [employer]: Concepción De La Torre MD NRBC Automated 0.0 per 100 WBC Normal 0.0 [facility] Comment on above: Performed By: #### C P, CDP #### [address] [place] [address] [employer]: Concepción De La Torre MD Platelet mean volume (Bld) [Entitic vol] 11.6 fL Normal 8.1-13.5 [facility] Comment on above: Performed By: #### C P, CDP #### [address] [place] [address] [employer]: Concepción De La Torre MD Platelets (Bld) [#/Vol] 250 10*3/uL Normal 138-453 [facility] Comment on above: Performed By: #### C P, CDP #### [address] [place] [address] [employer]: Concepción De La Torre MD RBC (Bld) [#/Vol] 3.40 10*6/uL Low 3.95-5.11 [facility] Comment on above: Performed By: #### C P, CDP #### [facility] [address] [place], [place] [phone] [employer]: Concepción De La Torre MD WBC (Bld) [#/Vol] 5.6 10*3/uL Normal 3.5-11.3 [facility] Comment on above: Performed By: #### C P, CDP #### [facility] [address] [place], [place] [phone] [employer]: Concepción De La Torre MD Comp Metabolic Profon 2023 Albumin [Mass/Vol] 2.7 g/dL Low 3.5-5.2 [facility] Comment on above: Performed By: #### C P, CDP #### [facility] [address] [place], [place] [phone] [employer]: Concepción De La Torre MD Albumin/Glob Ratio 1.0 Normal 1.0-2.5 [facility] Comment on above: Performed By: #### C P, CDP #### [facility] [address] [place], [place] [phone] [employer]: Concpeción De La Torre MD Alkaline Phos 116 U/L High 35-104 [facility] Comment on above: Performed By: #### C P, CDP #### [facility] [address] [place], [place] [phone] [employer]: Concepción De La Torre MD ALT [Catalytic activity/Vol] 10 U/L Normal 5-33 [facility] Comment on above: Performed By: #### C P, CDP #### [facility] [address] [place], [place] [phone] [employer]: Concepción De La Torre MD Anion gap [Moles/Vol] 11 mmol/L Normal 9-17 [facility] Comment on above: Performed By: #### C P, CDP #### [facility] [address] [place], [place] [phone] [employer]: Concepción De La Torre MD AST [Catalytic activity/Vol] 21 U/L Normal <32 [facility] Comment on above: Performed By: #### C P, CDP #### [facility] [address] [place], [place] [phone] [employer]: Concepción De La Torre MD Bilirubin [Mass/Vol] 0.4 mg/dL Normal 0.3-1.[address] [facility] Comment on above: Performed By: #### C P, CDP #### [address] [place], [place] [phone] [employer]: Concepción De La Torre MD BUN/CRE Ratio 15 Normal 9-20 [facility] Comment on above: Performed By: #### C P, CDP #### [address] [place], [place] [phone] [employer]: Concepción De La Torre MD Calcium [Mass/Vol] 7.8 mg/dL Low 8.6-10.4 [facility] Comment on above: Performed By: #### C P, CDP #### [facility] [address] [place], [place] 7274483 [employer]: Concepción De La Torre MD Chloride [Moles/Vol] 108 mmol/L High 98-[address] [facility] Comment on above: Performed By: #### C P, CDP #### [facility] [address] [place], [place] [phone] [employer]: Concepción De La Torre MD CO2 [Moles/Vol] 24 mmol/L Normal 20-31 [facility] Comment on above: Performed By: #### C P, CDP #### [facility] [address] [place] [address] [employer]: Concepción De La Torre MD Creatinine [Mass/Vol] 0.8 mg/dL Normal 0.5-0.9 [facility] Comment on above: Performed By: #### C P, CDP #### [facility] [address] [place] [address] [employer]: Concepción De La Torre MD GFR/1.73 sq M.predicted among non-blacks MDRD (S/P/Bld) [Vol rate/Area] 73 mL/min/{1.73_m2} Normal >60 [facility] Comment on above: Result Comment: These results are not intended for use in patients <18 years of age. eGFR results are calculated without a race factor using the 2020 CKD-EPI equation. Careful clinical correlation is recommended, particularly when comparing to results calculated using previous equations. The CKD-EPI equation is less accurate in patients with extremes of muscle mass, extra-renal metabolism of creatine, excessive creatine ingestion, or following therapy that affects renal tubular secretion. Performed By: #### C P, CDP #### [facility] [address] [place] [address] [place] [address] [employer]: Concepción De aL Torre MD Glucose [Mass/Vol] 123 mg/dL High 70-99 [facility] Comment on above: Performed By: #### C P, CDP #### [facility] [address] [place] [address] [employer] Operator: Concepción De La Torre MD Potassium [Moles/Vol] 4.0 mmol/L Normal 3.7-5.3 [facility] Comment on above: Performed By: #### C P, CDP #### [facility] [address] [place] [address] [employer]: Concepción De La Torre MD Protein [Mass/Vol] 5.4 g/dL Low 6.4-8.3 [facility] Comment on above: Performed By: #### C P, CDP #### [facility] [address] [place] [address] Dr[place] [phone] [employer]: Concepción De La Torre MD Sodium [Moles/Vol] 143 mmol/L Normal 135-144 [facility] Comment on above: Performed By: #### C P, CDP #### [facility] [address] [place], [place] [phone] [employer]: Concepción De La Torre MD Urea nitrogen [Mass/Vol] 12 mg/dL Normal 8-23 [facility] Comment on above: Performed By: #### C P, CDP #### [facility] [address] [place] [address] [employer]: Concepción De La Torre MD Comprehensive Metabolic Pane [facility] 02-02-2024 Albumin [Mass/Vol] 2.7 g/dL Low 3.5 - 5.2 g/dL [facility] Albumin/Globulin [Mass ratio] 1.0 {ratio} 1.0 - 2.5 [facility] ALP [Catalytic activity/Vol] 116 U/L High 35 - 104 U/L [facility] ALT [Catalytic activity/Vol] 10 U/L 5 - 33 U/L [facility] Anion gap [Moles/Vol] 11 mmol/L 9 - 17 mmol/L [facility] AST [Catalytic activity/Vol] 21 U/L NINF - 32 U/L [facility] Bilirubin [Mass/Vol] 0.4 mg/dL 0.3 - 1 .2 mg/dL [facility] Calcium [Mass/Vol] 7.8 mg/dL Low 8.6 - 10. 4 mg/dL [facility] Chloride [Moles/Vol] 108 mmol/L High 98 - 10 7 mmol/L [facility] CO2 [Moles/Vol] 24 mmol/L 20 - 31 mmol/L [facility] Creatinine [Mass/Vol] 0.8 mg/dL 0.5 - 0.9 mg/dL [facility] Est, Glom Filt Rate 73 - [facility] Comment on above: These results are not intended for use in patients <18 years of age. eGFR results are calculated without a race factor using the 2020 CKD-EPI equation. Careful clinical correlation is recommended, particularly when comparing to results calculated using previous equations. The CKD-EPI equation is less accurate in patients with extremes of muscle mass, extra-renal metabolism of creatine, excessive creatine ingestion, or following therapy that affects renal tubular secretion. Glucose [Mass/Vol] 123 mg/dL High 70 - 99 mg/dL [facility] Interpretation and review of laboratory results Abnormal [facility] Potassium [Moles/Vol] 4.0 mmol/L 3.7 - 5.3 mmol/L [facility] Protein [Mass/Vol] 5.4 g/dL Low 6.4 - 8.3 g/dL [facility] Sodium [Moles/Vol] 143 mmol/L 135 - 144 mmol/L [facility] Urea nitrogen [Mass/Vol] 12 mg/dL 8 - 23 mg/dL [facility] Urea nitrogen/Creatinine [Mass ratio] 15 mg/mg 9 - [address] [facility] [address] HEAD WO CONTRASTon 2023 CT HEAD WO CONTRAST EXAMINATION: CT OF THE HEAD WITHOUT CONTRAST 01/23/2024 8:27 am TECHNIQUE: CT of the head was performed without the administration of intravenous contrast. Automated exposure control, iterative reconstruction, and/or weight based adjustment of the mA/kV was utilized to reduce the radiation dose to as low as reasonably achievable. COMPARISON: 01/06/2024 HISTORY: ORDERING SYSTEM PROVIDED HISTORY: SDH (subdural hematoma) ([facility]) TECHNOLOGIST PROVIDED HISTORY: F/U SDH FINDINGS: BRAIN/VENTRICLES: There is no acute infarct or acute intracranial hemorrhage present. There is no mass effect or midline shift present. 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 Periventricular hypoattenuation is unchanged. There is no ventriculomegaly or abnormal extra-axial fluid collection present. ORBITS: Limited evaluation of the orbits is unremarkable. SINUSES: The paranasal sinuses and mastoid air cells are clear. SOFT TISSUES/SKULL: No lytic or blastic osseous lesions are identified. IMPRESSION: Stable appearance of the brain without acute intracranial process identified. Interpreted by: Renny Rdoriguez MD Signed by: Renny Rodriguez MD 01/27/24 Final result Normal [facility] CBC with Diffon 01-26-2024 Abs. Basophil <0.03 Normal 0.00-0.20 [facility] Comment on above: Performed By: #### C DP, CMPF #### [facility] [address] [place], [place] [phone] [employer]: Concepción De La Torre MD Abs.Imm.Granulocyte 0.03 k/uL Normal 0.00-0.30 [facility] Comment on above: Performed By: #### C DP, CMPF #### [facility] [address] [place], [place] [phone] [employer] Operator: Concepción De La Torre MD Abs.Neutrophil (Seg) 2.15 k/uL Normal 1.50-8.[address] [facility] Comment on above: Performed By: #### C DP, CMPF #### [address] [place], [facility]83 [employer]: Concepción De La Torre MD Basophils/100 WBC (Bld) 1 % Normal 0-2 [facility] Comment on above: Performed By: #### C DP, CMPF #### [address] [place] [address] [employer]: Concepción De La Torre MD Eosinophils (Bld) [#/Vol] 0.04 10*3/uL Normal 0.00-0.44 [facility] Comment on above: Performed By: #### C DP, CMPF #### [facility] [address] [place] [address] Dr. [place], [place] [phone] [employer]: Concepción De La Torre MD Eosinophils/100 WBC (Bld) 1 % Normal 1-4 [facility] Comment on above: Performed By: #### C DP, CMPF #### [address] [place], [place] [phone] [employer]: Concepción De La Torre MD Erythrocyte distribution width (RBC) [Ratio] 16.3 % High 11.8-14.4 [facility] Comment on above: Performed By: #### C DP, CMPF #### [facility] [address] [place] [address] [place] [address] [employer]: Concepción De La Torre MD Hematocrit (Bld) [Volume fraction] 30.9 % Low 36.3-47.1 [facility] Comment on above: Performed By: #### C DP, CMPF #### [address] [place] [address] [employer]: Concepción De La Torre MD Hemoglobin (Bld) [Mass/Vol] 9.7 g/dL Low 11.9-15.1 [facility] Comment on above: Performed By: #### C DP, CMPF #### [address] [place] [address] [employer]: Concepción De La Torre MD Immature granulocytes/100 WBC (Bld) 1 % High 0 [facility] Comment on above: Performed By: #### C DP, CMPF #### [address] [place], [place] [address] [employer]: Concepción De La Torre MD Lymphocytes (Bld) [#/Vol] 0.79 10*3/uL Low 1.10-3.70 [facility] Comment on above: Performed By: #### C DP, CMPF #### [facility] [address] [place] [address] Dr. [place], [place] [address] [employer]: Concepción De La Torre MD Lymphocytes/100 WBC (Bld) 22 % Low 24-43 [facility] Comment on above: Performed By: #### C DP, CMPF #### [address] [place], [facility]83 [employer]: Concepción De La Torre MD MCH (RBC) [Entitic mass] 31.4 pg Normal 25.2-33.5 [facility] Comment on above: Performed By: #### C DP, CMPF #### [facility] [address] [place], [place] [phone] [employer]: Concepción De La Torre MD MCHC (RBC) [Mass/Vol] 31.4 g/dL Normal 28.4-34.8 [facility] Comment on above: Performed By: #### C DP, CMPF #### [facility] [address] [place], [place] [phone] [employer]: Concepción De La Torre MD MCV (RBC) [Entitic vol] 100.0 fL Normal 82.6-102.9 [facility] Comment on above: Performed By: #### C DP, CMPF #### [facility] [address] [place], [place] [phone] [employer]: Concepción De La Torre MD Monocytes (Bld) [#/Vol] 0.49 10*3/uL Normal 0.10-1.20 [facility] Comment on above: Performed By: #### C DP, CMPF #### [facility] [address] [place], [place] [phone] [employer]: Concepción De La Torre MD Monocytes/100 WBC (Bld) 14 % High 3-12 [facility] Comment on above: Performed By: #### C DP, CMPF #### [facility] [address] [place], [place] [phone] [employer]: Concepción De La Torre MD Neutrophil (Seg) 61 % Normal 36-65 [facility] Comment on above: Performed By: #### C DP, CMPF #### [facility] [address] [place], [place] [phone] [employer]: Concepción De La Torre MD NRBC Automated 0.0 per 100 WBC Normal 0.0 [facility] Comment on above: Performed By: #### C DP, CMPF #### [facility] [address] [place], [place] [phone] [employer]: Concepción De La Torre MD Platelet mean volume (Bld) [Entitic vol] 11.5 fL Normal 8.1-13.5 [facility] Comment on above: Performed By: #### C DP, CMPF #### [facility] [address] [place], [place] [phone] [employer]: Concepción De La Torre MD Platelets (Bld) [#/Vol] 271 10*3/uL Normal 138-453 [facility] Comment on above: Performed By: #### C DP, CMPF #### [facility] [address] [place], [place] [phone] [employer]: Concepción De La Torre MD RBC (Bld) [#/Vol] 3.09 10*6/uL Low 3.95-5.11 [facility] Comment on above: Performed By: #### C DP, CMPF #### [address] [place], [place] [id number] [employer]: Concepción De La Torre MD WBC (Bld) [#/Vol] 3.5 10*3/uL Normal 3.5-11.3 [facility] Comment on above: Performed By: #### C DP, CMPF #### [address] [place], [place] [phone] [employer]: Concepción De La Torre MD Comp Metabol,Fastingon 01-25 Albumin [Mass/Vol] 2.6 g/dL Low 3.5-5.2 [facility] Comment on above: Performed By: #### C DP, CMPF #### [address] [place], [place] [phone] [employer]: Concepción De La Torre MD Albumin/Glob Ratio 1.1 Normal 1.0-2.5 [facility] Comment on above: Performed By: #### C DP, CMPF #### [address] [place] [address] [employer]: Concepción De La Torre MD Alkaline Phos 92 U/L Normal 35-104 [facility] Comment on above: Performed By: #### C DP, CMPF #### [facility] [address] [place] [address] [employer]: Concepción De La Torre MD ALT [Catalytic activity/Vol] 18 U/L Normal 5-33 [facility] Comment on above: Performed By: #### C DP, CMPF #### [facility] [address] [place] [address] [employer]: Concepción De La Torre MD Anion gap [Moles/Vol] 8 mmol/L Low 9-17 [facility] Comment on above: Performed By: #### C DP, CMPF #### [facility] [address] [place] [address] [employer]: Concepción De La Torre MD AST [Catalytic activity/Vol] 23 U/L Normal <32 [facility] Comment on above: Performed By: #### C DP, CMPF #### [facility] [address] [place] [address] [employer]: Concepción De La Torre MD Bilirubin [Mass/Vol] 0.5 mg/dL Normal 0.3-1.[address] [facility] Comment on above: Performed By: #### C DP, CMPF #### [facility] [address] [place] [address] [employer]: Concepción De La Torre MD BUN/CRE Ratio 19 Normal 9-20 [facility] Comment on above: Performed By: #### C DP, CMPF #### [facility] [address] [place] [address] [employer]: Concepción De La Torre MD Calcium [Mass/Vol] 7.9 mg/dL Low 8.6-10.4 [facility] Comment on above: Performed By: #### C DP, CMPF #### [facility] [address] [place] [address] [employer]: Concepción De La Torre MD Chloride [Moles/Vol] 105 mmol/L Normal 98-[address] [facility] Comment on above: Performed By: #### C DP, CMPF #### [facility] [address] [place] [address] [employer]: Concepción De La Torre MD CO2 [Moles/Vol] 27 mmol/L Normal 20-31 [facility] Comment on above: Performed By: #### C DP, CMPF #### [facility] [address] [place], [place] [phone] [employer]: Concepción De La Torre MD Creatinine [Mass/Vol] 0.8 mg/dL Normal 0.5-0.9 [facility] Comment on above: Performed By: #### C DP, CMPF #### [facility] [address] [place] [address] [employer]: Concepción De La Torre MD GFR/1.73 sq M.predicted among non-blacks MDRD (S/P/Bld) [Vol rate/Area] 73 mL/min/{1.73_m2} Normal >60 [facility] Comment on above: Result Comment: These results are not intended for use in patients <18 years of age. eGFR results are calculated without a race factor using the 2020 CKD-EPI equation. Careful clinical correlation is recommended, particularly when comparing to results calculated using previous equations. The CKD-EPI equation is less accurate in patients with extremes of muscle mass, extra-renal metabolism of creatine, excessive creatine ingestion, or following therapy that affects renal tubular secretion. Performed By: #### C DP, CMPF #### [facility] [address] [place] [address] [employer]: Concepción De La Torre MD Glucose [Mass/Vol] 90 mg/dL Normal 70-99 [facility] Comment on above: Performed By: #### C DP, CMPF #### [facility] [address] [place], [place] [phone] [employer]: Concepción De La Torre MD Potassium [Moles/Vol] 4.1 mmol/L Normal 3.7-5.3 [facility] Comment on above: Performed By: #### C DP, CMPF #### [address] [place], [place] 6[address]1983 [employer]: Concepción De La Torre MD Protein [Mass/Vol] 5.0 g/dL Low 6.4-8.3 [facility] Comment on above: Performed By: #### C DP, CMPF #### [address] [place], [place] 1111583 [employer]: Concepción De La Torre MD Sodium [Moles/Vol] 140 mmol/L Normal 135-144 [facility] Comment on above: Performed By: #### C DP, CMPF #### [address] [place], [place] [phone] [employer]: Concepción De La Torre MD Urea nitrogen [Mass/Vol] 15 mg/dL Normal 8-23 [facility] Comment on above: Performed By: #### C DP, CMPF #### [address] [place], [facility]83 [employer]: Concepción De La Torre MD CBC with Diffon 01-19-2024 Abs. Basophil 0.03 k/uL Normal 0.00-0.20 [facility] Comment on above: Performed By: #### C DP, CP #### [facility] [address] [place] [address] Dr. [place], [place] [phone] [employer]: Concepción De La Torre MD Abs.Imm.Granulocyte 0.05 k/uL Normal 0.00-0.30 [facility] Comment on above: Performed By: #### C DP, CP #### [facility] [address] [place] [address] Dr. [place], [place] [phone] [employer]: Concepción De La Torre MD Abs.Neutrophil (Seg) 5.33 k/uL Normal 1.50-8.[address] [facility] Comment on above: Performed By: #### C DP, CP #### [address] [place], [place] [phone] [employer]: Concepción De La Torre MD Basophils/100 WBC (Bld) 0 % Normal 0-2 [facility] Comment on above: Performed By: #### C DP, CP #### [address] [place], [place] [phone] [employer]: Concepción De La Torre MD Eosinophils (Bld) [#/Vol] 0.07 10*3/uL Normal 0.00-0.44 [facility] Comment on above: Performed By: #### C DP, CP #### [address] [place], [facility]83 [employer]: Concepción De La Torre MD Eosinophils/100 WBC (Bld) 1 % Normal 1-4 [facility] Comment on above: Performed By: #### C DP, CP #### [address] [place], [facility]83 [employer]: Concepción De La Torre MD Erythrocyte distribution width (RBC) [Ratio] 16.6 % High 11.8-14.4 [facility] Comment on above: Performed By: #### C DP, CP #### [address] [place], [facility]83 [employer]: Concepción De La Torre MD Hematocrit (Bld) [Volume fraction] 30.7 % Low 36.3-47.1 [facility] Comment on above: Performed By: #### C DP, CP #### [address] [place] [address] [employer]: Concepción De La Torre MD Hemoglobin (Bld) [Mass/Vol] 9.7 g/dL Low 11.9-15.1 [facility] Comment on above: Performed By: #### C DP, CP #### [facility] [address] [place], [place] [address] [employer]: Concepción De La Torre MD Immature granulocytes/100 WBC (Bld) 1 % High 0 [facility] Comment on above: Performed By: #### C DP, CP #### [facility] [address] [place], [facility]83 [employer]: Concepción De La Torre MD Lymphocytes (Bld) [#/Vol] 1.11 10*3/uL Normal 1.10-3.70 [facility] Comment on above: Performed By: #### C DP, CP #### [address] [place], [place] [address] [employer]: Concepción De La Torre MD Lymphocytes/100 WBC (Bld) 15 % Low 24-43 [facility] Comment on above: Performed By: #### C DP, CP #### [address] [place], [facility]83 [employer]: Concepción De La Torre MD MCH (RBC) [Entitic mass] 31.1 pg Normal 25.2-33.5 [facility] Comment on above: Performed By: #### C DP, CP #### [address] [place], [place] [address] [employer]: Concepción De La Torre MD MCHC (RBC) [Mass/Vol] 31.6 g/dL Normal 28.4-34.8 [facility] Comment on above: Performed By: #### C DP, CP #### [address] [place] [address] [employer]: Concepción De La Torre MD MCV (RBC) [Entitic vol] 98.4 fL Normal 82.6-102.9 [facility] Comment on above: Performed By: #### C DP, CP #### [facility] [address] [place], [place] [phone] [employer]: Concepción De La Torre MD Monocytes (Bld) [#/Vol] 0.95 10*3/uL Normal 0.10-1.20 [facility] Comment on above: Performed By: #### C DP, CP #### [facility] [address] [place], [facility]83 [employer]: Concepción De La Torre MD Monocytes/100 WBC (Bld) 13 % High 3-12 [facility] Comment on above: Performed By: #### C DP, CP #### [facility] [address] [place], [place] [address] [employer]: Concepción De La Torre MD Neutrophil (Seg) 71 % High 36-65 [facility] Comment on above: Performed By: #### C DP, CP #### [facility] [address] [place], [facility]83 [employer]: Concepción De La Torre MD NRBC Automated 0.0 per 100 WBC Normal 0.0 [facility] Comment on above: Performed By: #### C DP, CP #### [address] [place], [facility]83 [employer]: Concepción De La Torre MD Platelet mean volume (Bld) [Entitic vol] 11.9 fL Normal 8.1-13.5 [facility] Comment on above: Performed By: #### C DP, CP #### [facility] [address] [place], [facility]83 [employer]: Concepción De La Torre MD Platelets (Bld) [#/Vol] 249 10*3/uL Normal 138-453 [facility] Comment on above: Performed By: #### C DP, CP #### [facility] [address] [place], [facility]83 [employer]: Concepción De La Torre MD RBC (Bld) [#/Vol] 3.12 10*6/uL Low 3.95-5.11 [facility] Comment on above: Performed By: #### C DP, CP #### [facility] [address] [place] [address] Dr. [place], [place] [phone] [employer]: Concepción De La Torre MD WBC (Bld) [#/Vol] 7.5 10*3/uL Normal 3.5-11.3 [facility] Comment on above: Performed By: #### C DP, CP #### [address] [place], [place] 1967483 [employer]: Concepción De La Torre MD Comp Metabolic Profon 2023 Albumin [Mass/Vol] 2.6 g/dL Low 3.5-5.2 [facility] Comment on above: Performed By: #### C DP, CP #### [address] [place] [address] [employer]: Concepción De La Torre MD Albumin/Glob Ratio 1.2 Normal 1.0-2.5 [facility] Comment on above: Performed By: #### C DP, CP #### [address] [place], [place] [phone] [employer]: Concepción De La Torre MD Alkaline Phos 78 U/L Normal 35-104 [facility] Comment on above: Performed By: #### C DP, CP #### [facility] [address] [place] [address] [place] [address] [employer]: Concepción De La Torre MD ALT [Catalytic activity/Vol] 42 U/L High 5-33 [facility] Comment on above: Performed By: #### C DP, CP #### [address] [place], [place] 8086083 [employer]: Concepción De La Torre MD Anion gap [Moles/Vol] 5 mmol/L Low 9-17 [facility] Comment on above: Performed By: #### C DP, CP #### [facility] [address] [place], [place] 0195683 [employer]: Concepción De La Torre MD AST [Catalytic activity/Vol] 43 U/L High <32 [facility] Comment on above: Performed By: #### C DP, CP #### [facility] [address] [place], [place] [phone] [employer]: Concepción De La Torre MD Bilirubin [Mass/Vol] 1.2 mg/dL Normal 0.3-1.[address] [facility] Comment on above: Performed By: #### C DP, CP #### [facility] [address] [place], [place] [phone] [employer]: Concepción De La Torre MD BUN/CRE Ratio 27 High 9-20 [facility] Comment on above: Performed By: #### C DP, CP #### [facility] [address] [place], [place] [phone] [employer]: Concepción De La Torre MD Calcium [Mass/Vol] 7.6 mg/dL Low 8.6-10.4 [facility] Comment on above: Performed By: #### C DP, CP #### [facility] [address] [place], [place] [phone] [employer]: Concepción De La Torre MD Chloride [Moles/Vol] 100 mmol/L Normal 98-[address] [facility] Comment on above: Performed By: #### C DP, CP #### [facility] [address] [place], [place] [phone] [employer]: Concepción De La Torre MD CO2 [Moles/Vol] 30 mmol/L Normal 20-31 [facility] Comment on above: Performed By: #### C DP, CP #### [facility] [address] [place], [place] [phone] [employer]: Concepción De La Torre MD Creatinine [Mass/Vol] 0.7 mg/dL Normal 0.5-0.9 [facility] Comment on above: Performed By: #### C SCHUYLER, CP #### [facility] [address] [place] [address] [employer]: Concepción De La Torre MD GFR/1.73 sq M.predicted among non-blacks MDRD (S/P/Bld) [Vol rate/Area] 85 mL/min/{1.73_m2} Normal >60 [facility] Comment on above: Result Comment: These results are not intended for use in patients <18 years of age. eGFR results are calculated without a race factor using the 2020 CKD-EPI equation. Careful clinical correlation is recommended, particularly when comparing to results calculated using previous equations. The CKD-EPI equation is less accurate in patients with extremes of muscle mass, extra-renal metabolism of creatine, excessive creatine ingestion, or following therapy that affects renal tubular secretion. Performed By: #### C SCHUYLER, CP #### [facility] [address] [place], [place] [phone] [employer]: Concepción De La Torre MD Glucose [Mass/Vol] 98 mg/dL Normal 70-99 [facility] Comment on above: Performed By: #### C SCHUYLER, CP #### [address] [place], [place] [phone] [employer]: Concepción De La Torre MD Potassium [Moles/Vol] 3.8 mmol/L Normal 3.7-5.3 [facility] Comment on above: Performed By: #### C DP, CP #### [facility] [address] [place], [place] [phone] [employer]: Concepción De La Torre MD Protein [Mass/Vol] 4.8 g/dL Low 6.4-8.3 [facility] Comment on above: Performed By: #### C SCHUYLER, CP #### [facility] [address] [place] [address] [employer]: Concepción De La Torre MD Sodium [Moles/Vol] 135 mmol/L Normal 135-144 [facility] Comment on above: Performed By: #### C DP, CP #### [facility] [address] [place] [address] [employer]: Concepción De La Torre MD Urea nitrogen [Mass/Vol] 19 mg/dL Normal 8-23 [facility] Comment on above: Performed By: #### C DP, CP #### [facility] [address] [place] [address] [employer]: Concepción De La Torre MD CBC with Auto Differentialon 01-15-2024 Basophils (Bld) [#/Vol] 0.03 10*3/uL [facility] Basophils/100 WBC (Bld) 0 % 0 - 2 % [facility] Eosinophils (Bld) [#/Vol] 0.05 10*3/uL [facility] Eosinophils/100 WBC (Bld) 0 % Low 1 - 4 % [facility] Erythrocyte distribution width (RBC) [Ratio] 15.9 % High 11.8 - 14.4 % [facility] Hematocrit (Bld) [Volume fraction] 31.7 % Low 36.3 - 47.1 % [facility] Hemoglobin (Bld) [Mass/Vol] 10.3 g/dL Low 11.9 - 15.1 g/dL [facility] Immature granulocytes (Bld) [#/Vol] 0.09 10*3/uL [facility] Immature granulocytes/100 WBC (Bld) 1 % High 0 [facility] Interpretation and review of laboratory results Abnormal [facility] Lymphocytes/100 WBC (Bld) 7 % Low 24 - 43 % [facility] Lymphocytes/100 WBC (Bld) 0.83 % Low [facility] MCH (RBC) [Entitic mass] 31.1 pg 25.2 - 33.5 pg [facility] MCHC (RBC) [Mass/Vol] 32.5 g/dL 28.4 - 34.8 g/dL [facility] MCV (RBC) [Entitic vol] 95.8 fL 82.6 - 102.9 fL [facility] Monocytes/100 WBC (Bld) 11 % 3 - 12 % [facility] Monocytes/100 WBC (Bld) 1.30 % High [facility] Neutrophils/100 WBC (Bld) 81 % High 36 - 65 % [facility] Nucleated RBC/100 WBC (Bld) [Ratio] 0.0 % 0.0 per 100 WBC [facility] Platelet mean volume (Bld) [Entitic vol] 11.8 fL 8.1 - 13.5 fL [facility] Platelets (Bld) [#/Vol] 176 10*3/uL [facility] RBC (Bld) [#/Vol] 3.31 10*6/uL Low 3.95 - 5.1 1 m/uL [facility] Segmented neutrophils/100 WBC (Bld) 9.73 % High [facility] WBC other (Bld) [#/Vol] 12.0 High [facility] CBC with Diffon 01-15-2024 Abs. Basophil 0.03 k/uL Normal 0.00-0.20 [facility] Comment on above: Performed By: #### C DP, CP #### [facility] [address] [place] [address] Dr. [place], [place] [phone] [employer]: Concepción De La Torre MD Abs.Imm.Granulocyte 0.09 k/uL Normal 0.00-0.30 [facility] Comment on above: Performed By: #### C DP, CP #### [facility] [address] [place] [address] [employer]: Concepción De La Torre MD Abs.Neutrophil (Seg) 9.73 k/uL High 1.50-8.[address] [facility] Comment on above: Performed By: #### C DP, CP #### [facility] [address] [place] [address] Dr. [place], [place] [phone] [employer]: Concepción De La Torre MD Basophils/100 WBC (Bld) 0 % Normal 0-2 [facility] Comment on above: Performed By: #### C DP, CP #### [address] [place] [address] [employer]: Concepción De La Torre MD Eosinophils (Bld) [#/Vol] 0.05 10*3/uL Normal 0.00-0.44 [facility] Comment on above: Performed By: #### C DP, CP #### [address] [place], [place] [address] [employer]: Concepción De La Torre MD Eosinophils/100 WBC (Bld) 0 % Low 1-4 [facility] Comment on above: Performed By: #### C DP, CP #### [address] [place] [address] [employer]: Concepción De La Torre MD Erythrocyte distribution width (RBC) [Ratio] 15.9 % High 11.8-14.4 [facility] Comment on above: Performed By: #### C DP, CP #### [address] [place], [place] [address] [employer]: Concepción De La Torre MD Hematocrit (Bld) [Volume fraction] 31.7 % Low 36.3-47.1 [facility] Comment on above: Performed By: #### C DP, CP #### [address] [place], [place] [address] [employer]: Concepción De La Torre MD Hemoglobin (Bld) [Mass/Vol] 10.3 g/dL Low 11.9-15.1 [facility] Comment on above: Performed By: #### C DP, CP #### [address] [place] [phone] [employer]: Concepción De La Torre MD Immature granulocytes/100 WBC (Bld) 1 % High 0 [facility] Comment on above: Performed By: #### C DP, CP #### [facility] [address] [place] [address] [employer]: Concepción De La Torre MD Lymphocytes (Bld) [#/Vol] 0.83 10*3/uL Low 1.10-3.70 [facility] Comment on above: Performed By: #### C DP, CP #### [facility] [address] [place] [address] [employer]: Concepción De La Torre MD Lymphocytes/100 WBC (Bld) 7 % Low 24-43 [facility] Comment on above: Performed By: #### C DP, CP #### [address] [place], [facility]83 [employer]: Concepción De La Torre MD MCH (RBC) [Entitic mass] 31.1 pg Normal 25.2-33.5 [facility] Comment on above: Performed By: #### C DP, CP #### [address] [place], [facility]83 [employer]: Concepción De La Torre MD MCHC (RBC) [Mass/Vol] 32.5 g/dL Normal 28.4-34.8 [facility] Comment on above: Performed By: #### C DP, CP #### [address] [place], [facility]83 [employer]: Conecpción De La Torre MD MCV (RBC) [Entitic vol] 95.8 fL Normal 82.6-102.9 [facility] Comment on above: Performed By: #### C DP, CP #### [address] [place] [address] [employer]: Concepción De La Torre MD Monocytes (Bld) [#/Vol] 1.30 10*3/uL High 0.10-1.20 [facility] Comment on above: Performed By: #### C DP, CP #### [address] [place] [phone] [employer]: Concepción De La Torre MD Monocytes/100 WBC (Bld) 11 % Normal 3-12 [facility] Comment on above: Performed By: #### C DP, CP #### [facility] [address] [place], [place] [phone] [employer]: Concepción De La Torre MD Neutrophil (Seg) 81 % High 36-65 [facility] Comment on above: Performed By: #### C DP, CP #### [facility] [address] [place], [place] [phone] [employer]: Concepción De La Torre MD NRBC Automated 0.0 per 100 WBC Normal 0.0 [facility] Comment on above: Performed By: #### C DP, CP #### [facility] [address] [place], [place] [phone] [employer]: Concepción De La Torre MD Platelet mean volume (Bld) [Entitic vol] 11.8 fL Normal 8.1-13.5 [facility] Comment on above: Performed By: #### C DP, CP #### [address] [place], [place] [phone] [employer]: Concepción De La Torre MD Platelets (Bld) [#/Vol] 176 10*3/uL Normal 138-453 [facility] Comment on above: Performed By: #### C DP, CP #### [facility] [address] [place] [address] Dr. [place], [place] [phone] [employer]: Concepción De La Torre MD RBC (Bld) [#/Vol] 3.31 10*6/uL Low 3.95-5.11 [facility] Comment on above: Performed By: #### C DP, CP #### [address] [place] [address] [employer]: Concepción De La Torre MD WBC (Bld) [#/Vol] 12.0 10*3/uL High 3.5-11.3 [facility] Comment on above: Performed By: #### C DP, CP #### [facility] [address] [place], [place] [phone] [employer]: Concepción De La Torre MD Comp Metabolic Profon 2023 Albumin [Mass/Vol] 2.8 g/dL Low 3.5-5.2 [facility] Comment on above: Performed By: #### C DP, CP #### [facility] [address] [place], [place] [phone] [employer] Operator: Concepción De La Torre MD Albumin/Glob Ratio 1.2 Normal 1.0-2.5 [facility] Comment on above: Performed By: #### C DP, CP #### [facility] [address] [place] [address] Dr. [place], [place] [phone] [employer]: Concepción De La Torre MD Alkaline Phos 74 U/L Normal 35-104 [facility] Comment on above: Performed By: #### C DP, CP #### [facility] [address] [place], [place] [phone] [employer] Operator: Concepción De La Torre MD ALT [Catalytic activity/Vol] 22 U/L Normal 5-33 [facility] Comment on above: Performed By: #### C DP, CP #### [facility] [address] [place], [place] [phone] [employer] Operator: Concepción De La Torre MD Anion gap [Moles/Vol] 10 mmol/L Normal 9-17 [facility] Comment on above: Performed By: #### C DP, CP #### [facility] [address] [place], [place] [phone] [employer] Operator: Concepción De La Torre MD AST [Catalytic activity/Vol] 36 U/L High <32 [facility] Comment on above: Performed By: #### C DP, CP #### [facility] [address] [place], [place] [phone] [employer] Operator: Concepción De La Torre MD Bilirubin [Mass/Vol] 1.3 mg/dL High 0.3-1.[address] [facility] Comment on above: Performed By: #### C DP, CP #### [facility] [address] [place], [place] [phone] [employer] Operator: Concepción De La Torre MD BUN/CRE Ratio 34 High 9-20 [facility] Comment on above: Performed By: #### C DP, CP #### [facility] [address] [place], [place] [phone] [employer] Operator: Concepción De La Torre MD Calcium [Mass/Vol] 8.2 mg/dL Low 8.6-10.4 [facility] Comment on above: Performed By: #### C DP, CP #### [facility] [address] [place], [place] [phone] [employer] Operator: Concepción De La Torre MD Chloride [Moles/Vol] 101 mmol/L Normal 98-[address] [facility] Comment on above: Performed By: #### C DP, CP #### [facility] [address] [place], [place] [phone] [employer] Operator: Concepción De La Torre MD CO2 [Moles/Vol] 26 mmol/L Normal 20-31 [facility] Comment on above: Performed By: #### C DP, CP #### [facility] [address] [place], [place] [phone] [employer] Operator: Concepción De La Torre MD Creatinine [Mass/Vol] 0.8 mg/dL Normal 0.5-0.9 [facility] Comment on above: Performed By: #### C DP, CP #### [facility] [address] [place], [place] [phone] [employer] Operator: Concepción De La Torre MD GFR/1.73 sq M.predicted among non-blacks MDRD (S/P/Bld) [Vol rate/Area] 73 mL/min/{1.73_m2} Normal >60 [facility] Comment on above: Result Comment: These results are not intended for use in patients <18 years of age. eGFR results are calculated without a race factor using the 2020 CKD-EPI equation. Careful clinical correlation is recommended, particularly when comparing to results calculated using previous equations. The CKD-EPI equation is less accurate in patients with extremes of muscle mass, extra-renal metabolism of creatine, excessive creatine ingestion, or following therapy that affects renal tubular secretion. Performed By: #### C DP, CP #### [facility] [address] [place] [address] [place] [address] [employer]: Concepción De La Torre MD Glucose [Mass/Vol] 101 mg/dL High 70-99 [facility] Comment on above: Performed By: #### C DP, CP #### [address] [place] [address] [employer] Operator: Concepción De La Torre MD Potassium [Moles/Vol] 4.6 mmol/L Normal 3.7-5.3 [facility] Comment on above: Performed By: #### C DP, CP #### [address] [place], [place] [phone] [employer] Operator: Concepción De La Torre MD Protein [Mass/Vol] 5.2 g/dL Low 6.4-8.3 [facility] Comment on above: Performed By: #### C DP, CP #### [facility] [address] [place] [address] [place] [address] [employer] Operator: Concepción De La Torre MD Sodium [Moles/Vol] 137 mmol/L Normal 135-144 [facility] Comment on above: Performed By: #### C DP, CP #### [facility] [address] [place] [address] [place] [address] [employer] Operator: Concepción De La Torre MD Urea nitrogen [Mass/Vol] 27 mg/dL High 8-23 [facility] Comment on above: Performed By: #### C DP, CP #### [facility] [address] [place] [address] [employer] Operator: Concepción De La Torre MD [facility] Metabolic [facility] 01-15-2024 Albumin [Mass/Vol] 2.8 g/dL Low 3.5 - 5.2 g/dL [facility] Albumin/Globulin [Mass ratio] 1.2 {ratio} 1.0 - 2.5 [facility] ALP [Catalytic activity/Vol] 74 U/L 35 - 104 U/L [facility] ALT [Catalytic activity/Vol] 22 U/L 5 - 33 U/L [facility] Anion gap [Moles/Vol] 10 mmol/L 9 - 17 mmol/L [facility] AST [Catalytic activity/Vol] 36 U/L High NINF - 32 U/L [facility] Bilirubin [Mass/Vol] 1.3 mg/dL High 0.3 - 1 .2 mg/dL [facility] Calcium [Mass/Vol] 8.2 mg/dL Low 8.6 - 10. 4 mg/dL [facility] Chloride [Moles/Vol] 101 mmol/L 98 - 10 7 mmol/L [facility] CO2 [Moles/Vol] 26 mmol/L 20 - 31 mmol/L [facility] Creatinine [Mass/Vol] 0.8 mg/dL 0.5 - 0.9 mg/dL [facility] Est, Glom Filt Rate 73 - [facility] Comment on above: These results are not intended for use in patients <18 years of age. eGFR results are calculated without a race factor using the 2020 CKD-EPI equation. Careful clinical correlation is recommended, particularly when comparing to results calculated using previous equations. The CKD-EPI equation is less accurate in patients with extremes of muscle mass, extra-renal metabolism of creatine, excessive creatine ingestion, or following therapy that affects renal tubular secretion. Glucose [Mass/Vol] 101 mg/dL High 70 - 99 mg/dL [facility] Interpretation and review of laboratory results Abnormal [facility] Potassium [Moles/Vol] 4.6 mmol/L 3.7 - 5.3 mmol/L [facility] Protein [Mass/Vol] 5.2 g/dL Low 6.4 - 8.3 g/dL [facility] Sodium [Moles/Vol] 137 mmol/L 135 - 144 mmol/L [facility] Urea nitrogen [Mass/Vol] 27 mg/dL High 8 - 23 mg/dL [facility] Urea nitrogen/Creatinine [Mass ratio] 34 mg/mg High 9 - 20 [facility] PTon 01-13-2024 INR Coag (PPP) [Relative time] 1.3 {INR} Normal [facility] Comment on above: Result Comment: Therapeutic Range: Moderate Anticoagulant Intensity: INR = 2.0-3.0 High Anticoagulant Intensity: INR = 2.5-3.5 Performed By: #### P T ####[address] [address] Lab Director: Sarath Olivera MD PT Coag (PPP) [Time] 15.6 s High 11.7-14.9 [facility] Comment on above: Performed By: #### P T ####[facility] [address] [place] [address] Lab Director: Sarath Olivera MD Basic Metab w/rfx MGon 01-11 Anion gap [Moles/Vol] 9 mmol/L Normal 9-16 [facility] Comment on above: Performed By: #### B MPX, CDP ####[facility] [address] [place] [address] Lab Director: Sarath Olivera MD Calcium [Mass/Vol] 8.3 mg/dL Low 8.6-10.4 [facility] Comment on above: Performed By: #### B MPX, CDP ####[facility] [address] [place] [address] Lab Director: Sarath Olievra MD Chloride [Moles/Vol] 103 mmol/L Normal 98-107 [facility] Comment on above: Performed By: #### B MPX, CDP ####[facility] [address] [place] [address] Lab Director: Sarath Olivera MD CO2 [Moles/Vol] 25 mmol/L Normal 20-31 [facility] Comment on above: Performed By: #### B MPX, CDP ####[facility] [address] [place] [address] Lab Director: Sarath Olivera MD Creatinine [Mass/Vol] 0.8 mg/dL Normal 0.50-0.90 [facility] Comment on above: Performed By: #### B MPX, CDP ####[facility] [address] [place] [address] Lab Director: Sarath Olivera MD GFR/1.73 sq M.predicted among non-blacks MDRD (S/P/Bld) [Vol rate/Area] 78 mL/min/{1.73_m2} Normal >60 [facility] Comment on above: Result Comment: These results are not intended for use in patients <18 years of age. eGFR results are calculated without a race factor using the 2020 CKD-EPI equation. Careful clinical correlation is recommended, particularly when comparing to results calculated using previous equations. The CKD-EPI equation is less accurate in patients with extremes of muscle mass, extra-renal metabolism of creatine, excessive creatine ingestion, or following therapy that affects renal tubular secretion. Performed By: #### B MPX, CDP ####[facility] [address] [place] [address] Lab Director: Sarath Olivera MD Glucose [Mass/Vol] 92 mg/dL Normal 74-99 [facility] Comment on above: Performed By: #### B MPX, CDP ####[facility] [address] [place] [address] Lab Director: Sarath Olivera MD Potassium [Moles/Vol] 4.5 mmol/L Normal 3.7-5.3 [facility] Comment on above: Performed By: #### B MPX, CDP ####[facility] [address] [place], [place] [address])[phone] Director: Sarath Olivera MD Sodium [Moles/Vol] 137 mmol/L Normal 136-145 [facility] Comment on above: Performed By: #### B MPX, CDP ####[facility] [address] [place] [address])[phone] Director: Sarath Olivera MD Urea nitrogen [Mass/Vol] 28 mg/dL High 8-23 [facility] Comment on above: Performed By: #### B MPX, CDP ####[facility] [address] [place] [address])[phone] Director: Sarath Olivera MD CBC with Diffon 01-12-2024 Abs. Basophil 0.03 k/uL Normal 0.00-0.20 [facility] Comment on above: Performed By: #### B MPX, CDP ####[facility] [address] [place] [address])[phone] Director: Sarath Olivera MD Abs.Imm.Granulocyte 0.24 k/uL Normal 0.00-0.30 [facility] Comment on above: Performed By: #### B MPX, CDP ####[facility] [address] [place], [place] [address])[phone] Director: Sarath Olivera MD Abs.Neutrophil (Seg) 6.54 k/uL Normal 1.50-8.10 [facility] Comment on above: Performed By: #### B MPX, CDP ####[facility] [address] [place], [place] [address])[phone] Director: Sarath Olivera MD Basophils/100 WBC (Bld) 0 % Normal 0-2 [facility] Comment on above: Performed By: #### B MPX, CDP ####[facility] [address] [place] [address] [place] [address] Lab Director: Sarath Olivera MD Eosinophils (Bld) [#/Vol] 0.19 10*3/uL Normal 0.00-0.44 [facility] Comment on above: Performed By: #### B MPX, CDP ####[facility] [address] [place] [address] [phone] Director: Sarath Olivera MD Eosinophils/100 WBC (Bld) 2 % Normal 1-4 [facility] Comment on above: Performed By: #### B MPX, CDP ####[address] [address])[phone] Director: Sarath Olivera MD Erythrocyte distribution width (RBC) [Ratio] 15.8 % High 11.8-14.4 [facility] Comment on above: Performed By: #### B MPX, CDP ####[place], [place] [address])[phone] Director: Sarath Olivera MD Hematocrit (Bld) [Volume fraction] 29.8 % Low 36.3-47.1 [facility] Comment on above: Performed By: #### B MPX, CDP ####[address] [address])[phone] Director: Sarath Olivera MD Hemoglobin (Bld) [Mass/Vol] 9.3 g/dL Low 11.9-15.1 [facility] Comment on above: Performed By: #### B MPX, CDP ####[facility] [address] [place] [address] [phone] Director: Saraht Olivera MD Immature granulocytes/100 WBC (Bld) 3 % High 0 [facility] Comment on above: Performed By: #### B MPX, CDP ####[facility] [address] [place] [address] Lab Director: Sarath Olivera MD Lymphocytes (Bld) [#/Vol] 1.23 10*3/uL Normal 1.10-3.70 [facility] Comment on above: Performed By: #### B MPX, CDP ####[facility] [address] [place], [place] [phone] Director: Sarath Olivera MD Lymphocytes/100 WBC (Bld) 13 % Low 24-43 [facility] Comment on above: Performed By: #### B MPX, CDP ####[facility] [address] [place], [place] [phone] Director: Sarath Olivera MD MCH (RBC) [Entitic mass] 30.9 pg Normal 25.2-33.5 [facility] Comment on above: Performed By: #### B MPX, CDP ####[facility] [address] [place] [address] [phone])[phone] Director: Sarath Olivera MD MCHC (RBC) [Mass/Vol] 31.2 g/dL Normal 28.4-34.8 [facility] Comment on above: Performed By: #### B MPX, CDP ####[facility] [address] [place] [address] [phone] Director: Sarath Olivera MD MCV (RBC) [Entitic vol] 99.0 fL Normal 82.6-102.9 [facility] Comment on above: Performed By: #### B MPX, CDP ####[facility] [address] [place], [place] [phone] Director: Sarath Olivera MD Monocytes (Bld) [#/Vol] 1.19 10*3/uL Normal 0.10-1.20 [facility] Comment on above: Performed By: #### B MPX, CDP ####[facility] [address] [place], [place] [phone] Director: Sarath Olivera MD Monocytes/100 WBC (Bld) 13 % High 3-12 [facility] Comment on above: Performed By: #### B MPX, CDP ####[facility] [address] [place] [address] Lab Director: Sarath Olivera MD Neutrophil (Seg) 69 % High 36-65 [facility] Comment on above: Performed By: #### B MPX, CDP ####[facility] [address] [place] [address] Lab Director: Sarath Olivera MD NRBC Automated 0.5 per 100 WBC High 0.0 [facility] Comment on above: Performed By: #### B MPX, CDP ####[facility] [address]aclj[address] [place] [address] Lab Director: Sarath Olivera MD Platelet mean volume (Bld) [Entitic vol] 12.4 fL Normal 8.1-13.5 [facility] Comment on above: Performed By: #### B MPX, CDP ####[facility] [address] [place] [address] Lab Director: Sarath Olivera MD Platelets (Bld) [#/Vol] 140 10*3/uL Normal 138-453 [facility] Comment on above: Performed By: #### B MPX, CDP ####[facility] [address] [place] [address] Lab Director: Sarath Olivera MD RBC (Bld) [#/Vol] 3.01 10*6/uL Low 3.95-5.11 [facility] Comment on above: Performed By: #### B MPX, CDP ####[facility] [address] [place] [address] Lab Director: Sarath Olivera MD RBC morphology finding Nom (Bld) ANISOCYTOSIS PRESENT Normal [facility] Comment on above: Performed By: #### B MPX, CDP ####[facility] [address] [place] [address] Lab Director: Sarath Olivera MD WBC (Bld) [#/Vol] 9.4 10*3/uL Normal 3.5-11.3 [facility] Comment on above: Performed By: #### B MPX, CDP ####[address] [address] lab Director: Sarath Olivera MD PTon 01-12-2024 INR Coag (PPP) [Relative time] 1.2 {INR} Normal [facility] Comment on above: Result Comment: Therapeutic Range: Moderate Anticoagulant Intensity: INR = 2.0-3.0 High Anticoagulant Intensity: INR = 2.5-3.5 Performed By: #### P T ####[address] [address] lab Director: Sarath Olivera MD PT Coag (PPP) [Time] 14.6 s Normal 11.7-14.9 [facility] Comment on above: Performed By: #### P T ####[address] [address] lab Director: Sarath Olivera MD XR CHEST PORTABLEon 01-12-20 24 XR CHEST PORTABLE EXAMINATION: ONE XRAY VIEW OF THE CHEST 01/05/2024 7:50 pm COMPARISON: CT today HISTORY: ORDERING SYSTEM PROVIDED HISTORY: eval for central line placement TECHNOLOGIST PROVIDED HISTORY: eval for central line placement FINDINGS: Small left pleural effusion. Mild left basilar atelectasis. Trace pneumothorax better characterized on the recent chest CT. Right IJ catheter extends into the region of right atrium. No right-sided pneumothorax. The right lung is clear. Stable cardiomegaly. Left rib fractures are noted. IMPRESSION: 1. Right IJ catheter with tip in the region of the right atrium. No right-sided pneumothorax noted. 2. Trace left pneumothorax as characterized on the recent chest CT. Left rib fractures and mild left basilar atelectasis remain. Interpreted by: Deon Webb MD Signed by: Deon Webb MD 01/12/24 Final result Normal [facility] Basic Metab w/rfx MGon 01-10 Anion gap [Moles/Vol] 7 mmol/L Low 9-16 [facility] Comment on above: Performed By: #### B MPX, CDP ####[facility] [address] [place], [place] [phone] Director: Sarath Olivera MD Calcium [Mass/Vol] 8.0 mg/dL Low 8.6-10.4 [facility] Comment on above: Performed By: #### B MPX, CDP ####[facility] [address] [place], [place] [phone] Director: Sarath Olivera MD Chloride [Moles/Vol] 104 mmol/L Normal 98-107 [facility] Comment on above: Performed By: #### B MPX, CDP ####[facility] [address] [place] [address] [phone] Director: Sarath Olivera MD CO2 [Moles/Vol] 24 mmol/L Normal 20-31 [facility] Comment on above: Performed By: #### B MPX, CDP ####[facility] [address] [place] [address] Lab Director: Sarath Olivera MD Creatinine [Mass/Vol] 0.8 mg/dL Normal 0.50-0.90 [facility] Comment on above: Performed By: #### B MPX, CDP ####[facility] [address] [place], [place] [phone] Director: Sarath Olivera MD GFR/1.73 sq M.predicted among non-blacks MDRD (S/P/Bld) [Vol rate/Area] 70 mL/min/{1.73_m2} Normal >60 [facility] Comment on above: Result Comment: These results are not intended for use in patients <18 years of age. eGFR results are calculated without a race factor using the 2020 CKD-EPI equation. Careful clinical correlation is recommended, particularly when comparing to results calculated using previous equations. The CKD-EPI equation is less accurate in patients with extremes of muscle mass, extra-renal metabolism of creatine, excessive creatine ingestion, or following therapy that affects renal tubular secretion. Performed By: #### B MPX, CDP ####[facility] [address] [place], [place] [address])[phone] Director: Sarath Olivera MD Glucose [Mass/Vol] 106 mg/dL High 74-99 [facility] Comment on above: Performed By: #### B MPX, CDP ####[address] [address])[phone] Director: Sarath Olivera MD Potassium [Moles/Vol] 4.7 mmol/L Normal 3.7-5.3 [facility] Comment on above: Performed By: #### B MPX, CDP ####[facility] [address] [place] [address])[phone] Director: Sarath Olivera MD Sodium [Moles/Vol] 135 mmol/L Low 136-145 [facility] Comment on above: Performed By: #### B MPX, CDP ####[facility] [address] [place] [address])[phone] Director: Sarath Olivera MD Urea nitrogen [Mass/Vol] 28 mg/dL High 8-23 [facility] Comment on above: Performed By: #### B MPX, CDP ####[facility] [address] [place], [place] [address])[phone] Director: Sarath Olivera MD CBC with Diffon 01-11-2024 Abs. Basophil <0.03 Normal 0.00-0.20 [facility] Comment on above: Performed By: #### B MPX, CDP ####[facility] [address] [place] [address])[phone] Director: Sarath Olviera MD Abs.Imm.Granulocyte 0.23 k/uL Normal 0.00-0.30 [facility] Comment on above: Performed By: #### B MPX, CDP ####[address] [address])[phone] Director: Sarath Olivera MD Abs.Neutrophil (Seg) 7.27 k/uL Normal 1.50-8.10 [facility] Comment on above: Performed By: #### B MPX, CDP ####[facility] [address] [place], [place] [address])[phone] Director: Sarath Olivera MD Basophils/100 WBC (Bld) 0 % Normal 0-2 [facility] Comment on above: Performed By: #### B MPX, CDP ####[place] [address])[phone] Director: Sarath Olivera MD Eosinophils (Bld) [#/Vol] 0.11 10*3/uL Normal 0.00-0.44 [facility] Comment on above: Performed By: #### B MPX, CDP ####[address] [address])[phone] Director: Sarath Olivera MD Eosinophils/100 WBC (Bld) 1 % Normal 1-4 [facility] Comment on above: Performed By: #### B MPX, CDP ####[facility] [address] [place] [address])[phone] Director: Sarath Olivera MD Erythrocyte distribution width (RBC) [Ratio] 15.6 % High 11.8-14.4 [facility] Comment on above: Performed By: #### B MPX, CDP ####[facility] [address] [place], [place] [address])[phone] Director: Sarath Olivera MD Hematocrit (Bld) [Volume fraction] 28.4 % Low 36.3-47.1 [facility] Comment on above: Performed By: #### B MPX, CDP ####[facility] [address] [place], [place] [address])[phone] Director: Sarath Olivera MD Hemoglobin (Bld) [Mass/Vol] 8.9 g/dL Low 11.9-15.1 [facility] Comment on above: Performed By: #### B MPX, CDP ####[facility] Fzzyhqpmdrhx9174 [place], [place] [phone])[phone] Director: Sarath Olivera MD Immature granulocytes/100 WBC (Bld) 2 % High 0 [facility] Comment on above: Performed By: #### B MPX, CDP ####[facility] [address]cp[address] [place], [place] [address])[phone] Director: Sarath Olivera MD Lymphocytes (Bld) [#/Vol] 1.31 10*3/uL Normal 1.10-3.70 [facility] Comment on above: Performed By: #### B MPX, CDP ####[facility] [address] [place] [address] [phone])[phone] Director: Sarath Olivera MD Lymphocytes/100 WBC (Bld) 13 % Low 24-43 [facility] Comment on above: Performed By: #### B MPX, CDP ####[facility] [address] [place], [place] [address])[phone] Director: Sarath Olivera MD MCH (RBC) [Entitic mass] 30.9 pg Normal 25.2-33.5 [facility] Comment on above: Performed By: #### B MPX, CDP ####[facility] [address]ud[address] [place], [place] [id number])[phone] Director: Sarath Olivera MD MCHC (RBC) [Mass/Vol] 31.3 g/dL Normal 28.4-34.8 [facility] Comment on above: Performed By: #### B MPX, CDP ####[facility] [address] [place], [place] [id number])[phone] Director: Sarath Olivera MD MCV (RBC) [Entitic vol] 98.6 fL Normal 82.6-102.9 [facility] Comment on above: Performed By: #### B MPX, CDP ####[facility] [address]uj[address] [place], [place] [id number])[phone] Director: Sarath Olivera MD Monocytes (Bld) [#/Vol] 1.42 10*3/uL High 0.10-1.20 [facility] Comment on above: Performed By: #### B MPX, CDP ####[facility] Iuqqsvlitsvf35[address] [place], [place] [phone])[phone] Director: Sarath Olivera MD Monocytes/100 WBC (Bld) 14 % High 3-12 [facility] Comment on above: Performed By: #### B MPX, CDP ####[facility] [address] [place] [address] [phone])[phone] Director: Sarath Olivera MD Neutrophil (Seg) 70 % High 36-65 [facility] Comment on above: Performed By: #### B MPX, CDP ####[facility] [address]jqff[address] [place], [place] [phone])[phone] Director: Sarath Olivera MD NRBC Automated 1.3 per 100 WBC High 0.0 [facility] Comment on above: Performed By: #### B MPX, CDP ####[facility] [address]my[address]20[address] [place], [place] [id number])[phone] Director: Sarath Olivera MD Platelet mean volume (Bld) [Entitic vol] 12.1 fL Normal 8.1-13.5 [facility] Comment on above: Performed By: #### B MPX, CDP ####[facility] [address]zmorc[address] [place], [place] [phone])[phone] Director: Sarath Olivera MD Platelets (Bld) [#/Vol] 109 10*3/uL Low 138-453 [facility] Comment on above: Performed By: #### B MPX, CDP ####[facility] Kgprlnamvrig9225 [place], [place] [phone])[phone] Director: Sarath Olivera MD RBC (Bld) [#/Vol] 2.88 10*6/uL Low 3.95-5.11 [facility] Comment on above: Performed By: #### B MPX, CDP ####[facility] [address]lf[address] [place], [place] [id number])[phone] Director: Sarath Olivera MD RBC morphology finding Nom (Bld) ANISOCYTOSIS PRESENT Normal [facility] Comment on above: Performed By: #### B MPX, CDP ####[facility] S[address]ovtebskmb5561 [place], [place] [phone])[phone] Director: Sarath Olivera MD WBC (Bld) [#/Vol] 10.4 10*3/uL Normal 3.5-11.3 [facility] Comment on above: Performed By: #### B MPX, CDP ####[facility] [address]im[address]z15[address] [place], [place] [id number])[phone] Director: Sarath Olivera MD Basic Metab w/rfx MGon 01-09 Anion gap [Moles/Vol] 7 mmol/L Low 9-16 [facility] Comment on above: Performed By: #### B MPX, CDP ####[facility] [address] [place], [place] 19305419)[phone] Director: Sarath Olivera MD Calcium [Mass/Vol] 8.4 mg/dL Low 8.6-10.4 [facility] Comment on above: Performed By: #### B MPX, CDP ####[facility] [address]sensixli8578 [place], [place] [phone])[phone] Director: Sarath Olivera MD Chloride [Moles/Vol] 109 mmol/L High 98-107 [facility] Comment on above: Performed By: #### B MPX, CDP ####[facility] Asznjxdnhwxp0953 [place], [place] [phone])[phone] Director: Sarath Olivera MD CO2 [Moles/Vol] 25 mmol/L Normal 20-31 [facility] Comment on above: Performed By: #### B MPX, CDP ####[facility] [address] [place] [address] [phone])[phone] Director: Sarath Olivera MD Creatinine [Mass/Vol] 0.8 mg/dL Normal 0.50-0.90 [facility] Comment on above: Performed By: #### B MPX, CDP ####[address] [phone] Director: Sarath Olivera MD GFR/1.73 sq M.predicted among non-blacks MDRD (S/P/Bld) [Vol rate/Area] 68 mL/min/{1.73_m2} Normal >60 [facility] Comment on above: Result Comment: These results are not intended for use in patients <18 years of age. eGFR results are calculated without a race factor using the 2020 CKD-EPI equation. Careful clinical correlation is recommended, particularly when comparing to results calculated using previous equations. The CKD-EPI equation is less accurate in patients with extremes of muscle mass, extra-renal metabolism of creatine, excessive creatine ingestion, or following therapy that affects renal tubular secretion. Performed By: #### B MPX, CDP ####[facility] [address]es[address]vxjpjw[address] [place], [place] [phone])[phone] Director: Sarath Olivera MD Glucose [Mass/Vol] 96 mg/dL Normal 74-99 [facility] Comment on above: Performed By: #### B MPX, CDP ####[facility] [address]yx[address]wjyseix67[address] [place], [place] [phone] Director: Sarath Olivera MD Potassium [Moles/Vol] 4.9 mmol/L Normal 3.7-5.3 [facility] Comment on above: Performed By: #### B MPX, CDP ####[facility] [address]iihum[address]3 [place], [place] [address])[phone] Director: Sarath Olivera MD Sodium [Moles/Vol] 141 mmol/L Normal 136-145 [facility] Comment on above: Performed By: #### B MPX, CDP ####[facility] [address] [place], [place] [address])[phone] Director: Sarath Olivera MD Urea nitrogen [Mass/Vol] 31 mg/dL High 8-23 [facility] Comment on above: Performed By: #### B MPX, CDP ####[facility] [address] [place], [place] [address])[phone] Director: Sarath Olivera MD CBC with Diffon 01-10-2024 Abs. Basophil <0.03 Normal 0.00-0.20 [facility] Comment on above: Performed By: #### B MPX, CDP ####[facility] [address] [place], [place] [address])[phone] Director: Sarath Olivera MD Abs. Eosinophil <0.03 Normal 0.00-0.44 [facility] Comment on above: Performed By: #### B MPX, CDP ####[facility] [address] [place], [place] [address])[phone] Director: Sarath Olivera MD Abs.Imm.Granulocyte 0.12 k/uL Normal 0.00-0.30 [facility] Comment on above: Performed By: #### B MPX, CDP ####[facility] [address] [place], [place] [address])[phone] Director: Sarath Olivera MD Abs.Neutrophil (Seg) 7.01 k/uL Normal 1.50-8.10 [facility] Comment on above: Performed By: #### B MPX, CDP ####[facility] [address]iolzr44[address] [place], [place] [phone])[phone] Director: Sarath Olivera MD Basophils/100 WBC (Bld) 0 % Normal 0-2 [facility] Comment on above: Performed By: #### B MPX, CDP ####[facility] [address]387 [place], [place] [id number])[phone] Director: Sarath Olivera MD Eosinophils/100 WBC (Bld) 0 % Low 1-4 [facility] Comment on above: Performed By: #### B MPX, CDP ####[facility] [address] [place] [address] [phone])[phone] Director: Sarath Olivera MD Erythrocyte distribution width (RBC) [Ratio] 15.7 % High 11.8-14.4 [facility] Comment on above: Performed By: #### B MPX, CDP ####[facility] [address] [place] [address] [phone])[phone] Director: Sarath Olivera MD Hematocrit (Bld) [Volume fraction] 28.2 % Low 36.3-47.1 [facility] Comment on above: Performed By: #### B MPX, CDP ####[facility] [address] [place] [address] [id number])[phone] Director: Sarath Olivera MD Hemoglobin (Bld) [Mass/Vol] 9.0 g/dL Low 11.9-15.1 [facility] Comment on above: Performed By: #### B MPX, CDP ####[facility] Mrshmpiodvca4425 [place], [place] [id number])[phone] Director: Sarath Olivera MD Immature granulocytes/100 WBC (Bld) 1 % High 0 [facility] Comment on above: Performed By: #### B MPX, CDP ####[facility] [address] [place] [address] [phone] Director: Sarath Olivera MD Lymphocytes (Bld) [#/Vol] 1.46 10*3/uL Normal 1.10-3.70 [facility] Comment on above: Performed By: #### B MPX, CDP ####[facility] Y[address]2471 [place], [place] [phone])[phone] Director: Sarath Olivera MD Lymphocytes/100 WBC (Bld) 15 % Low 24-43 [facility] Comment on above: Performed By: #### B MPX, CDP ####[facility] Nmhie[address]qaew[address]1153 [place], [place] [id number])[phone] Director: Sarath Olivera MD MCH (RBC) [Entitic mass] 30.8 pg Normal 25.2-33.5 [facility] Comment on above: Performed By: #### B MPX, CDP ####[facility] [address] [place] [address] [id number])[phone] Director: Sarath Olivera MD MCHC (RBC) [Mass/Vol] 31.9 g/dL Normal 28.4-34.8 [facility] Comment on above: Performed By: #### B MPX, CDP ####[facility] [address] [place], [place] [phone])[phone] Director: Sarath Olivera MD MCV (RBC) [Entitic vol] 96.6 fL Normal 82.6-102.9 [facility] Comment on above: Performed By: #### B MPX, CDP ####[facility] Visapzhqsnnm7785 [place], [place] [id number])[phone] Director: Sarath Olivera MD Monocytes (Bld) [#/Vol] 1.28 10*3/uL High 0.10-1.20 [facility] Comment on above: Performed By: #### B MPX, CDP ####[facility] Iqhyhnrvocvm2143 [place], [place] [id number])[phone] Director: Sarath Olivera MD Monocytes/100 WBC (Bld) 13 % High 3-12 [facility] Comment on above: Performed By: #### B MPX, CDP ####[facility] [address]evx[address]mt8013 [place] [address] Lab Director: Sarath Olivera MD Neutrophil (Seg) 71 % High 36-65 [facility] Comment on above: Performed By: #### B MPX, CDP ####[facility] Pxvokzovosvg0176 [place], [place] [phone])[phone] Director: Sarath Olivera MD NRBC Automated 1.1 per 100 WBC High 0.0 [facility] Comment on above: Performed By: #### B MPX, CDP ####[facility] [address]jetqjksigxa3738 [place], [place] [phone])[phone] Director: Sarath Olivera MD Platelet mean volume (Bld) [Entitic vol] 12.7 fL Normal 8.1-13.5 [facility] Comment on above: Performed By: #### B MPX, CDP ####[facility] Pqrzmceohtcj5972 [place], [place] [id number])[phone] Director: Sarath Olivera MD Platelets (Bld) [#/Vol] 102 10*3/uL Low 138-453 [facility] Comment on above: Performed By: #### B MPX, CDP ####[facility] Ffm[address]neofmtey7882 [place] [address] Lab Director: Sarath Olivera MD RBC (Bld) [#/Vol] 2.92 10*6/uL Low 3.95-5.11 [facility] Comment on above: Performed By: #### B MPX, CDP ####[facility] Erqwrmfmewju2871 [place], [place] [phone] Director: Sarath Olivera MD RBC morphology finding Nom (Bld) ANISOCYTOSIS PRESENT Normal [facility] Comment on above: Performed By: #### B MPX, CDP ####[facility] [address]uscs[address]mrhm6444 [place] [address] Lab Director: Sarath Olivera MD WBC (Bld) [#/Vol] 9.9 10*3/uL Normal 3.5-11.3 [facility] Comment on above: Performed By: #### B MPX, CDP ####[facility] [address]fghsrlm5970 [place] [address] Lab Director: Sarath Olivera MD Cult, Bloodon 01-10-2024 Cult, Blood Specimen Description .BLOOD Special Requests RT HAND NO MLS GIVEN Culture NO GROWTH 5 DAYS Report Status FINAL 01/10/2024 Normal [facility] Comment on above: Performed By: #### B CUL2 ####[address] [address] Lab Director: Sarath Olivera MD Cult,Bloodon 01-10-2024 Cult,Blood Specimen Description .BLOOD Special Requests RT AC 10ML Culture NO GROWTH 5 DAYS Report Status FINAL 01/10/2024 Normal [facility] Comment on above: Performed By: #### B C #### [address] [address] [employer] Operator: Sartah Olivera MD Fentanyl, Urineon 01-10-2024 Fentanyl/Metab Ur 21.9 ng/mL Normal [facility] Comment on above: Result Comment: (NOT E) INTERPRETIVE INFORMATION: Fentanyl and Metabolite, Urine Methodology: Quantitative Liquid Chromatography-Tandem Mass Spectrometry Positive cutoff: 1.0 ng/mL For medical purposes only; not valid for forensic use. The absence of expected drug(s) and/or drug metabolite(s) may indicate non-compliance, inappropriate timing of specimen collection relative to drug administration, poor drug absorption, diluted/adulterated urine, or limitations of testing. The concentration value must be greater than or equal to the cutoff to be reported as positive. Interpretive questions should be directed to the laboratory. This test was developed and its performance characteristics determined by [employer]. It has not been cleared or approved by the [place] Food and Drug Administration. This test was performed in a CLIA certified laboratory and is intended for clinical purposes. Performed By: #### A OPICO, AFENTU ####[facility] [address] [place], [place] [id number])[phone] Director: Claude Peter MD Norfentanyl, Ur See Note [facility] Comment on above: Result Comment: (NOT E) Unable to identify due to interfering substance(s) in the specimen. Performed By: [facility] [address] [place] [address] Quality Control Tech: Taco Chang MD, PhD CLIA Number: [id number] Performed By: #### A OPICO, AFENTU ####[facility] [address] [place] [address])[phone] Director: Claude Peter MD Opiates,Ur Confirmon 024 Codeine, Ur <20 [facility] Comment on above: Performed By: #### A OPICO, AFENTU ####[facility] [address] [place], [place] [address])[phone] Director: Claude Peter MD Hydrocodone, Ur <20 [facility] Comment on above: Performed By: #### A OPICO, AFENTU ####[facility] [address] [place] [address] Lab Director: Claude Peter MD Hydromorphone, Ur <20 [facility] Comment on above: Performed By: #### A OPICO, AFENTU ####[facility] [address]xp[address]kcq736 [place] [address] Lab Director: Claude Peter MD Morphine, Ur 331 ng/mL [facility] Comment on above: Performed By: #### A OPICO, AFENTU ####[facility] [address]yl[address] [place], [place] [id number])[phone] Director: Claude Peter MD Norhydrocodone, U <20 Normal [facility] Comment on above: Result Comment: (NOT E) Performed By: [facility] [address] [place] [id number] Quality Control Tech: Taco Chang MD, PhD CLIA Number: [id number] Performed By: #### A OPICO, AFENTU ####[facility] [address]461 [place] [address] Lab Director: Claude Peter MD Noroxycodone, Ur <20 [facility] Comment on above: Performed By: #### A OPICO AFENTU ####[facility] [address] [place] [address] Lab Director: Claude Peter MD Noroxymorphone,U <20 [facility] Comment on above: Performed By: #### A OPIPREETI AFENTU ####[facility] [address] [place] [address] Lab Director: Claude Peter MD Opiates, 6 AM Ur <10 [facility] Comment on above: Result Comment: (NOT E) INTERPRETIVE INFORMATION: Opiates, Urine, Quantitative Methodology: Quantitative Liquid Chromatography-Tandem Mass Spectrometry Positive cutoff: 20 ng/mL except as specified below 6-acetylmorphine 10 ng/mL For medical purposes only; not valid for forensic use. Identification of specific drug(s) taken by specimen donor is problematic due to common metabolites, some of which are prescription drugs themselves. The absence of expected drug(s) and/or drug metabolite(s) may indicate non-compliance, inappropriate timing of specimen collection relative to drug administration, poor drug absorption, diluted/adulterated urine, or limitations of testing. All drug analytes covered are in the non-glucuronidated (free) forms. The concentration value must be greater than or equal to the cutoff to be reported as positive. A very small amount of an unexpected drug analyte in the presence of a large amount of an expected drug analyte may reflect pharmaceutical impurity. Interpretive questions should be directed to the laboratory. This test was developed and its performance characteristics determined by [employer]. It has not been cleared or approved by the [place] Food and Drug Administration. This test was performed in a CLIA certified laboratory and is intended for clinical purposes. Performed By: #### A TRISH FOUNTAIN ####[facility] [address] [place], [place] [id number] Lab Director: Claude Peter MD Oxycodone, Ur <20 Normal [facility] Comment on above: Performed By: #### A ROSIO FOUNTAINU ####[facility] [address] [place] [address] lab Director: Claude Peter MD Oxymorphone, Ur <20 Normal [facility] Comment on above: Performed By: #### A TRISH FOUNTAIN ####[facility] [address] [place], [place] [id number] lab Director: Claude Peter MD Basic Metab w/rfx MGon 01-08 Anion gap [Moles/Vol] 7 mmol/L Low 9-16 [facility] Comment on above: Performed By: #### C SCHUYLER BMPX ####[address] [address] Lab Director: Sarath Olivera MD Calcium [Mass/Vol] 8.0 mg/dL Low 8.6-10.4 [facility] Comment on above: Performed By: #### C DP, BMPX ####[facility] [address]ogbu[address] [place] [address] Lab Director: Sarath Olivera MD Chloride [Moles/Vol] 113 mmol/L High 98-107 [facility] Comment on above: Performed By: #### C DP, BMPX ####[facility] [address]umcos[address]pt[address] [place] [address] Lab Director: Sarath Olivera MD CO2 [Moles/Vol] 23 mmol/L Normal 20-31 [facility] Comment on above: Performed By: #### C DP, BMPX ####[facility] [address] [place] [address] Lab Director: Sarath Olivera MD Creatinine [Mass/Vol] 0.9 mg/dL Normal 0.50-0.90 [facility] Comment on above: Performed By: #### C DP, BMPX ####[address] [phone] Director: Sarath Olivera MD GFR/1.73 sq M.predicted among non-blacks MDRD (S/P/Bld) [Vol rate/Area] 61 mL/min/{1.73_m2} Normal >60 [facility] Comment on above: Result Comment: These results are not intended for use in patients <18 years of age. eGFR results are calculated without a race factor using the 2020 CKD-EPI equation. Careful clinical correlation is recommended, particularly when comparing to results calculated using previous equations. The CKD-EPI equation is less accurate in patients with extremes of muscle mass, extra-renal metabolism of creatine, excessive creatine ingestion, or following therapy that affects renal tubular secretion. Performed By: #### C DP, BMPX ####[address] [address])[phone] Director: Sarath Olivera MD Glucose [Mass/Vol] 112 mg/dL High 74-99 [facility] Comment on above: Performed By: #### C DP, BMPX ####[facility] [address] [place] [address] [id number])[phone] Director: Sarath Olivera MD Potassium [Moles/Vol] 5.1 mmol/L Normal 3.7-5.3 [facility] Comment on above: Performed By: #### C DP, BMPX ####[facility] [address]qtmlqrxdzty5408 [place], [place] [id number])[phone] Director: Sarath Olivera MD Sodium [Moles/Vol] 143 mmol/L Normal 136-145 [facility] Comment on above: Performed By: #### C DP, BMPX ####[facility] [address]iffxnj9[address] [place], [place] [address])[phone] Director: Sarath Olivera MD Urea nitrogen [Mass/Vol] 31 mg/dL High 8-23 [facility] Comment on above: Performed By: #### C DP, BMPX ####[facility] [address] [place], [place] [address])[phone] Director: Sarath Olivera MD CBC with Diffon 01-09-2024 Platelet, Fluoresc. 84 k/uL Low 138-453 [facility] Comment on above: Performed By: #### Ashley CELESTE, UAMIC #### [place] [address] [employer] Operator: Sarath Olivera MD PLT, Immature Fract. 11.1 % High 1.1-10.3 [facility] Comment on above: Performed By: #### Ashley AU, UAMIC #### [place] [address] [employer] Operator: Sarath Olivera MD Abs. Basophil <0.03 Normal 0.00-0.20 [facility] Comment on above: Performed By: #### Ashley CELESTE, UAMIC #### [place] [address] [employer] Operator: Sarath Olivera MD Abs. Eosinophil <0.03 Normal 0.00-0.44 [facility] Comment on above: Performed By: #### Ashley AU, UAMIC #### [facility] [address] [place] [address] [employer] Operator: Sarath Olivera MD Abs.Imm.Granulocyte 0.09 k/uL Normal 0.00-0.30 [facility] Comment on above: Performed By: #### Ashley AU, UAMIC #### [facility] [address] [place] [address] [employer] Operator: Sarath Olivera MD Abs.Neutrophil (Seg) 9.66 k/uL High 1.50-8.10 [facility] Comment on above: Performed By: #### Ashley CELESTE UAMIC #### [address] [address] [employer] Operator: Sarath Olivera MD Basophils/100 WBC (Bld) 0 % Normal 0-2 [facility] Comment on above: Performed By: #### Ashley CELESTE UAMIC #### [address] [address] [employer] Operator: Sarath Olivera MD Eosinophils/100 WBC (Bld) 0 % Low 1-4 [facility] Comment on above: Performed By: #### Ashley CELESTE UAMIC #### [address] [address] [employer] Operator: Sarath Olivera MD Immature granulocytes/100 WBC (Bld) 1 % High 0 [facility] Comment on above: Performed By: #### Ashley CELESTE UAMIC #### [address] [address] [employer] Operator: Sarath Olivera MD Lymphocytes (Bld) [#/Vol] 0.83 10*3/uL Low 1.10-3.70 [facility] Comment on above: Performed By: #### Ashley CELESTE UAMIC #### [address] [address] [employer] Operator: Sarath Olivera MD Lymphocytes/100 WBC (Bld) 7 % Low 24-43 [facility] Comment on above: Performed By: #### Ashley CELESTE, UAMIC #### [facility] [address] [place] [address] [employer] Operator: Sarath Olivera MD Monocytes (Bld) [#/Vol] 1.03 10*3/uL Normal 0.10-1.20 [facility] Comment on above: Performed By: #### Ashley CELESTE UAMIC #### [address] [address] [employer] Operator: Sarath Olivera MD Monocytes/100 WBC (Bld) 9 % Normal 3-12 [facility] Comment on above: Performed By: #### Ashley CELESTE UAMIC #### [address] [address] [employer] Operator: Sarath Olivera MD Neutrophil (Seg) 83 % High 36-65 [facility] Comment on above: Performed By: #### Ashley CELESTE UAMIC #### [address] [address] [employer] Operator: Sarath Olivera MD Erythrocyte distribution width (RBC) [Ratio] 16.0 % High 11.8-14.4 [facility] Comment on above: Performed By: #### Ashley CELESTE UAMIC #### [address] [address] [employer] Operator: Sarath Olivera MD Hematocrit (Bld) [Volume fraction] 28.1 % Low 36.3-47.1 [facility] Comment on above: Performed By: #### Ashley CELESTE UAMIC #### [address] [address] [employer] Operator: Sarath Olivera MD Hemoglobin (Bld) [Mass/Vol] 8.5 g/dL Low 11.9-15.1 [facility] Comment on above: Performed By: #### Ashley CELESTE UAMIC #### [address] [address] [employer] Operator: Sarath Olivera MD MCH (RBC) [Entitic mass] 30.0 pg Normal 25.2-33.5 [facility] Comment on above: Performed By: #### D AU, UAMIC #### [address] [address] [employer] Operator: Sarath Olivera MD MCHC (RBC) [Mass/Vol] 30.2 g/dL Normal 28.4-34.8 [facility] Comment on above: Performed By: #### Ashley CELESTE, UAMIC #### [address] [address] [employer] Operator: Sarath Olivera MD MCV (RBC) [Entitic vol] 99.3 fL Normal 82.6-102.9 [facility] Comment on above: Performed By: #### Ashley CELESTE, UAMIC #### [address] [address] [employer] Operator: Sarath Olivera MD NRBC Automated 0.9 per 100 WBC High 0.0 [facility] Comment on above: Performed By: #### Ashley CELESTE, UAMIC #### [address] [address] [employer] Operator: Sarath Olivera MD Platelet Count See Reflexed IPF Result Normal 138-453 [facility] Comment on above: Performed By: #### Ashley CELESTE, UAMIC #### [address] [address] [employer]: Sarath Olivera MD RBC (Bld) [#/Vol] 2.83 10*6/uL Low 3.95-5.11 [facility] Comment on above: Performed By: #### Ashley CELESTE, UAMIC #### [address] [address] [employer] Operator: Sarath Olivera MD RBC morphology finding Nom (Bld) ANISOCYTOSIS PRESENT Normal [facility] Comment on above: Performed By: #### Ashley CELESTE, UAMIC #### [address] [address] [employer] Operator: Sarath Olivera MD WBC (Bld) [#/Vol] 11.6 10*3/uL High 3.5-11.3 [facility] Comment on above: Performed By: #### Ashley CELESTE UAMIC #### [facility] [address] [place] [address] [employer] Operator: Sarath Olivera MD Basic Metab w/rfx MGon 01-07 Anion gap [Moles/Vol] 8 mmol/L Low 9-16 [facility] Comment on above: Performed By: #### Ashley CELESTE UAMIC #### [address] [address] [employer] Operator: Sarath Olivera MD Calcium [Mass/Vol] 7.6 mg/dL Low 8.6-10.4 [facility] Comment on above: Performed By: #### Ashley CELESTE UAMIC #### [address] [address] [employer] Operator: Sarath Olivera MD Chloride [Moles/Vol] 114 mmol/L High 98-107 [facility] Comment on above: Performed By: #### Ashley CELESTE UAMIC #### [facility] [address] [place] [address] [employer] Operator: Sarath Olivera MD CO2 [Moles/Vol] 20 mmol/L Normal 20-31 [facility] Comment on above: Performed By: #### Ashley CELESTE UAMIC #### [facility] [address] [place] [address] [employer] Operator: Sarath Olivera MD Creatinine [Mass/Vol] 1.1 mg/dL High 0.50-0.90 [facility] Comment on above: Performed By: #### Ashley CELESTE UAMIC #### [facility] [address] [place] [address] [employer] Operator: Sarath Olivera MD GFR/1.73 sq M.predicted among non-blacks MDRD (S/P/Bld) [Vol rate/Area] 48 mL/min/{1.73_m2} Low >60 [facility] Comment on above: Result Comment: These results are not intended for use in patients <18 years of age. eGFR results are calculated without a race factor using the 2020 CKD-EPI equation. Careful clinical correlation is recommended, particularly when comparing to results calculated using previous equations. The CKD-EPI equation is less accurate in patients with extremes of muscle mass, extra-renal metabolism of creatine, excessive creatine ingestion, or following therapy that affects renal tubular secretion. Performed By: #### Ashley CELESTE, UAMIC #### [facility] [address] [place] [address] [employer] Operator: Sarath Olivera MD Glucose [Mass/Vol] 158 mg/dL High 74-99 [facility] Comment on above: Performed By: #### Ashley CELESTE UAMIC #### [facility] [address] [place] [address] [employer] Operator: Sarath Olivera MD Potassium [Moles/Vol] 5.1 mmol/L Normal 3.7-5.3 [facility] Comment on above: Performed By: #### Ashley AU, UAMIC #### [facility] [address] [place] [address] [employer] Operator: Sarath Olivera MD Sodium [Moles/Vol] 142 mmol/L Normal 136-145 [facility] Comment on above: Performed By: #### Ashley AU, UAMIC #### [facility] [address] [place] [address] [employer] Operator: Sarath Olivera MD Urea nitrogen [Mass/Vol] 31 mg/dL High 8-23 [facility] Comment on above: Performed By: #### Ashley AU, UAMIC #### [facility] [address] [place] [address] [employer] Operator: Sarath Olivera MD CBC with Diffon 01-08-2024 Abs. Basophil 0.00 k/uL Normal 0.0-0.2 [facility] Comment on above: Performed By: #### Ashley CELESTE UAMIC #### [address] [address] [employer] Operator: Sarath Olivera MD Abs.Imm.Granulocyte 0.13 k/uL Normal 0.00-0.30 [facility] Comment on above: Performed By: #### Ashley CELESTE UAMIC #### [address] [address] [employer] Operator: Sarath Olivera MD Abs.Neutrophil (Seg) 10.66 k/uL High 1.8-7.7 [facility] Comment on above: Performed By: #### Ashley CELESTE UAMIC #### [place] [address] [employer] Operator: Sarath Olivera MD Basophils/100 WBC (Bld) 0 % Normal 0-2 [facility] Comment on above: Performed By: #### Ashley CELESTE UAMIC #### [place] [address] [employer] Operator: Sarath Olivera MD Eosinophils (Bld) [#/Vol] 0.00 10*3/uL Normal 0.0-0.4 [facility] Comment on above: Performed By: #### Ashley CELESTE UAMIC #### [place] [address] [employer] Operator: Sarath Olivera MD Eosinophils/100 WBC (Bld) 0 % Low 1-4 [facility] Comment on above: Performed By: #### Ashley CELESTE UAMIC #### [facility] [address] [place] [address] [employer] Operator: Sarath Olivera MD Immature granulocytes/100 WBC (Bld) 1 % High 0 [facility] Comment on above: Performed By: #### D AU, UAMIC #### [facility] [place] [address] [employer] Operator: Sarath Olivera MD Lymphocytes (Bld) [#/Vol] 0.51 10*3/uL Low 1.0-4.8 [facility] Comment on above: Performed By: #### Ashley AU, UAMIC #### [facility] [address] [place] [address] [employer] Operator: Sarath Olivera MD Lymphocytes/100 WBC (Bld) 4 % Low 24-44 [facility] Comment on above: Performed By: #### Ashley AU, UAMIC #### [address] [address] [employer] Operator: Sarath Olivera MD Monocytes (Bld) [#/Vol] 1.40 10*3/uL High 0.1-0.8 [facility] Comment on above: Performed By: #### Ashley AU, UAMIC #### [address] [address] [employer] Operator: Sarath Olivera MD Monocytes/100 WBC (Bld) 11 % High 1-7 [facility] Comment on above: Performed By: #### Ashley AU, UAMIC #### [address] [address] [employer] Operator: Sarath Olivera MD Morphology Manoj (Bld) [Interp] ANISOCYTOSIS PRESENT Normal [facility] Comment on above: Performed By: #### Ashley AU, UAMIC #### [address] [address] [employer] Operator: Sarath Olivera MD Neutrophil (Seg) 84 % High 36-66 [facility] Comment on above: Performed By: #### Ashley AU, UAMIC #### [facility] [address] [place] [address] [employer] Operator: Sarath Olivera MD Erythrocyte distribution width (RBC) [Ratio] 15.8 % High 11.8-14.4 [facility] Comment on above: Performed By: #### Ashley CELESTE, UAMIC #### [address] [address] [employer] Operator: Sarath Olivera MD Hematocrit (Bld) [Volume fraction] 26.2 % Low 36.3-47.1 [facility] Comment on above: Performed By: #### Ashley CELESTE, UAMIC #### [address] [address] [employer] Operator: Sarath Olivera MD Hemoglobin (Bld) [Mass/Vol] 8.4 g/dL Low 11.9-15.1 [facility] Comment on above: Performed By: #### Ashley CELESTE, UAMIC #### [address] [address] [employer] Operator: Sarath Olivera MD MCH (RBC) [Entitic mass] 29.8 pg Normal 25.2-33.5 [facility] Comment on above: Performed By: #### Ashley CELESTE UAMIC #### [address] [address] [employer] Operator: Sarath Olivera MD MCHC (RBC) [Mass/Vol] 32.1 g/dL Normal 28.4-34.8 [facility] Comment on above: Performed By: #### Ashley CELESTE, UAMIC #### [address] [address] [employer] Operator: Sarath Olivera MD MCV (RBC) [Entitic vol] 92.9 fL Normal 82.6-102.9 [facility] Comment on above: Performed By: #### Ashley CELESTE, UAMIC #### [facility] [address] [place] [address] [employer] Operator: Sarath Olivera MD NRBC Automated 0.3 per 100 WBC High 0.0 [facility] Comment on above: Performed By: #### Ashley CELESTE UAMIC #### [address] [address] [employer] Operator: Sarath Olivera MD Platelet Count See Reflexed IPF Result Normal 138-453 [facility] Comment on above: Performed By: #### Ashley CELESTE, UAMIC #### [address] [address] [employer] Operator: Sarath Olivera MD Platelet, Fluoresc. 65 k/uL Low 138-453 [facility] Comment on above: Performed By: #### Ashley CELESTE UAMIC #### [address] [address] [employer] Operator: Sarath Olivera MD PLT, Immature Fract. 11.2 % High 1.1-10.3 [facility] Comment on above: Performed By: #### Ashley CELESTE, UAMIC #### [address] [address] [employer] Operator: Sarath Olivera MD RBC (Bld) [#/Vol] 2.82 10*6/uL Low 3.95-5.11 [facility] Comment on above: Performed By: #### Ashley CELESTE UAMIC #### [address] [address] [employer] Operator: Sarath Olivera MD WBC (Bld) [#/Vol] 12.7 10*3/uL High 3.5-11.3 [facility] Comment on above: Performed By: #### Ashley CELESTE, UAMIC #### [address] [address] [employer] Operator: Sarath Olivera MD Calcium, Ionicon 01-08-2024 Calcium [Moles/Vol] 1.12 mmol/L Low 1.13-1.33 [facility] Comment on above: Performed By: #### D AU, UAMIC #### [facility] [address] [place], [place] [id number] [employer] Operator: Sarath Olivera MD Magnesiumon 01-08-2024 Magnesium [Mass/Vol] 2.0 mg/dL Normal 1.6-2.4 [facility] Comment on above: Performed By: #### Ashley CELESTE, UAMIC #### [facility] [address] [place], [place] [address] [employer] Operator: Sarath Olivera MD Phosphorus, Inorg.on 024 Phosphorus, Inorg. 1.9 mg/dL Low 2.5-4.5 [facility] Comment on above: Performed By: #### Ashley CELESTE, UAMIC #### [facility] [address] [place], [place] [id number] [employer] Operator: Sarath Olivera MD XR CHEST PORTABLEon 01-08-20 XR CHEST PORTABLE EXAMINATION: ONE XRAY VIEW OF THE CHEST 01/08/2024 5:21 am COMPARISON: Yesterday HISTORY: ORDERING SYSTEM PROVIDED HISTORY: rib fractures TECHNOLOGIST PROVIDED HISTORY: rib fractures FINDINGS: Lines and tubes: Right IJ catheter with tip extending towards the right atrium is similar to the prior examination. Endotracheal tube and nasogastric tube have been removed. Cardiomegaly with left-sided pleural effusion left lower lobe consolidation being unchanged. Mild increased interstitial markings suggesting component of edema is unchanged. No pneumothorax. Comminuted left humeral fracture. Left-sided rib fractures. IMPRESSION: 1. No change in left-sided pleural effusion a left lower lobe consolidation. 2. Probable component of mild pulmonary edema. 3. Left-sided rib and shoulder fractures. Interpreted by: Berhane Pressley MD Signed by: Berhane Pressley MD 01/08/24 Final result Normal [facility] Arterial Bld Gas,POCon 01-06 FIO2 60.0 Normal [facility] HCO3 (Bld) [Moles/Vol] 20.2 mmol/L Low 21.0-28.0 [facility] Negative Base Excess (calc) 4.5 mmol/L High 0.0-2.0 [facility] Oxygen saturation in Blood 99.4 % High 94.0-98.0 [facility] pCO2, Arterial 34.6 mm Hg Low 35.0-48.0 [facility] pH, Arterial 7.374 Normal 7.350-7.450 [facility] pO2, Arterial 155.4 mm Hg High 83.0-108.0 [facility] Site Drawn Arterial Line Normal [facility] FIO2 70.0 Normal [facility] HCO3 (Bld) [Moles/Vol] 21.2 mmol/L Normal 21.0-28.0 [facility] Negative Base Excess (calc) 4.4 mmol/L High 0.0-2.0 [facility] Oxygen saturation in Blood 97.4 % Normal 94.0-98.0 [facility] pCO2, Arterial 39.8 mm Hg Normal 35.0-48.0 [facility] pH, Arterial 7.333 Low 7.350-7.450 [facility] pO2, Arterial 100.9 mm Hg Normal 83.0-108.0 [facility] FIO2 80.0 Normal [facility] HCO3 (Bld) [Moles/Vol] 21.0 mmol/L Normal 21.0-28.0 [facility] Negative Base Excess (calc) 4.1 mmol/L High 0.0-2.0 [facility] Oxygen saturation in Blood 97.2 % Normal 94.0-98.0 [facility] pCO2, Arterial 37.9 mm Hg Normal 35.0-48.0 [facility] pH, Arterial 7.353 Normal 7.350-7.450 [facility] pO2, Arterial 96.9 mm Hg Normal 83.0-108.0 [facility] Site Drawn Arterial Line Normal [facility] Basic Metab w/rfx MGon 01-06 Anion gap [Moles/Vol] 8 mmol/L Low 9-16 [facility] Comment on above: Performed By: #### C DP, MG, SRAVANTHI, BMPX ####[facility] [address] [place], [place] [address])[phone] Director: Sarath Olivera MD Calcium [Mass/Vol] 7.7 mg/dL Low 8.6-10.4 [facility] Comment on above: Performed By: #### C DP, MG, SRAVANTHI, BMPX ####[facility] [address] [place], [place] [address])[phone] Director: Sarath Olivera MD Chloride [Moles/Vol] 115 mmol/L High 98-107 [facility] Comment on above: Performed By: #### C DP, MG, SRAVANTHI, BMPX ####[facility] [address] [place], [place] [address])[phone] Director: Sarath Olivera MD CO2 [Moles/Vol] 20 mmol/L Normal 20-31 [facility] Comment on above: Performed By: #### C DP, MG, SRAVANTHI, BMPX ####[facility] [address] [place] [address] Lab Director: Sarath Olivera MD Creatinine [Mass/Vol] 1.3 mg/dL High 0.50-0.90 [facility] Comment on above: Performed By: #### C DP, MG, SRAVANTHI, BMPX ####[facility] [address] [place], [place] [address])[phone] Director: Sarath Olivera MD GFR/1.73 sq M.predicted among non-blacks MDRD (S/P/Bld) [Vol rate/Area] 41 mL/min/{1.73_m2} Low >60 [facility] Comment on above: Result Comment: These results are not intended for use in patients <18 years of age. eGFR results are calculated without a race factor using the 2020 CKD-EPI equation. Careful clinical correlation is recommended, particularly when comparing to results calculated using previous equations. The CKD-EPI equation is less accurate in patients with extremes of muscle mass, extra-renal metabolism of creatine, excessive creatine ingestion, or following therapy that affects renal tubular secretion. Performed By: #### C DP, MG, SRAVANTHI, BMPX ####[facility] [address] [place] [address])[phone] Director: Sarath Olivera MD Glucose [Mass/Vol] 150 mg/dL High 74-99 [facility] Comment on above: Performed By: #### C DP, MG, SRAVANTHI, BMPX ####[address] [address])[phone] Director: Sarath Olivera MD Potassium [Moles/Vol] 4.2 mmol/L Normal 3.7-5.3 [facility] Comment on above: Performed By: #### C DP, MG, SRAVANTHI, BMPX ####[address] [address])[phone] Director: Sarath Olivera MD Sodium [Moles/Vol] 143 mmol/L Normal 136-145 [facility] Comment on above: Performed By: #### C DP, MG, SRAVANTHI, BMPX ####[facility] [address] [place] [address])[phone] Director: Sarath Olivera MD Urea nitrogen [Mass/Vol] 36 mg/dL High 8-23 [facility] Comment on above: Performed By: #### C DP, MG, SRAVANTHI, BMPX ####[facility] [address] [place], [place] [address])[phone] Director: Sarath Olivera MD CBC with Diffon 01-07-2024 Abs. Basophil 0.00 k/uL Normal 0.0-0.2 [facility] Comment on above: Performed By: #### C DP, MG, SRAVANTHI, BMPX ####[facility] [address] [place] [address])[phone] Director: Sarath Olivera MD Abs.Imm.Granulocyte 0.00 k/uL Normal 0.00-0.30 [facility] Comment on above: Performed By: #### C DP, MG, SRAVANTHI, BMPX ####[facility] [address] [place], [place] [phone])[phone] Director: Sarath Olivera MD Abs.Neutrophil (Seg) 8.81 k/uL High 1.8-7.7 [facility] Comment on above: Performed By: #### C DP, MG, SRAVANTHI, BMPX ####[facility] [address] [place], [place] [address])[phone] Director: Sarath Olivera MD Basophils/100 WBC (Bld) 0 % Normal 0-2 [facility] Comment on above: Performed By: #### C DP, MG, SRAVATNHI, BMPX ####[facility] [address] [place], [place] [address])[phone] Director: Sarath Olivera MD Eosinophils (Bld) [#/Vol] 0.00 10*3/uL Normal 0.0-0.4 [facility] Comment on above: Performed By: #### C DP, MG, SRAVANTHI, BMPX ####[facility] [address] [place], [place] [address])[phone] Director: Sarath Olivera MD Eosinophils/100 WBC (Bld) 0 % Low 1-4 [facility] Comment on above: Performed By: #### C DP, MG, SRAVANTHI, BMPX ####[facility] [address] [place], [place] [address])[phone] Director: Sarath Olivera MD Immature granulocytes/100 WBC (Bld) 0 % Normal 0 [facility] Comment on above: Performed By: #### C DP, MG, SRAVANTHI, BMPX ####[facility] [address] [place], [place] [address])[phone] Director: Sarath Olivera MD Lymphocytes (Bld) [#/Vol] 0.69 10*3/uL Low 1.0-4.8 [facility] Comment on above: Performed By: #### C DP, MG, SRAVANTHI, BMPX ####[facility] [address] [place] [address] Lab Director: Sarath Olivera MD Lymphocytes/100 WBC (Bld) 7 % Low 24-44 [facility] Comment on above: Performed By: #### C DP, MG, SRAVANTHI, BMPX ####[facility] [address] [place], [place] [address])[phone] Director: Sarath Olivera MD Monocytes (Bld) [#/Vol] 0.40 10*3/uL Normal 0.1-0.8 [facility] Comment on above: Performed By: #### C DP, MG, SRAVANTHI, BMPX ####[facility] [address] [place] [address]([facility])[phone] Director: Sarath Olivera MD Monocytes/100 WBC (Bld) 4 % Normal 1-7 [facility] Comment on above: Performed By: #### C DP, MG, SRAVANTHI, BMPX ####[facility] [address] [place] [address])[phone] Director: Sarath Olivera MD Morphology Manoj (Bld) [Interp] ANISOCYTOSIS PRESENT Normal [facility] Comment on above: Result Comment: INCR EASED BANDS PRESENT Performed By: #### C DP, MG, SRAVANTHI, BMPX ####[facility] [address] [place], [place] [address])[phone] Director: Sarath Olivera MD Neutrophil (Seg) 89 % High 36-66 [facility] Comment on above: Performed By: #### C DP, MG, SRAVANTHI, BMPX ####[facility] [address] [place], [place] [address])[phone] Director: Sarath Olivera MD Erythrocyte distribution width (RBC) [Ratio] 14.8 % High 11.8-14.4 [facility] Comment on above: Performed By: #### C DP, MG, SRAVANTHI, BMPX ####[facility] [address] [place] [address])[phone] Director: Sarath Olivera MD Hematocrit (Bld) [Volume fraction] 25.3 % Low 36.3-47.1 [facility] Comment on above: Performed By: #### C DP, MG, SRAVANTHI, BMPX ####[facility] [address] [place], [place] [address])[phone] Director: Sarath Olivera MD Hemoglobin (Bld) [Mass/Vol] 8.3 g/dL Low 11.9-15.1 [facility] Comment on above: Performed By: #### C DP, MG, SRAVANTHI, BMPX ####[facility] [address] [place], [place] [address])[phone] Director: Sarath Olivera MD MCH (RBC) [Entitic mass] 30.3 pg Normal 25.2-33.5 [facility] Comment on above: Performed By: #### C DP, MG, SRAVANTHI, BMPX ####[facility] [address] [place], [place] [address])[phone] Director: Sarath Olivera MD MCHC (RBC) [Mass/Vol] 32.8 g/dL Normal 28.4-34.8 [facility] Comment on above: Performed By: #### C DP, MG, SRAVANTHI, BMPX ####[facility] [address] [place], [place] [address])[phone] Director: Sarath Olivera MD MCV (RBC) [Entitic vol] 92.3 fL Normal 82.6-102.9 [facility] Comment on above: Performed By: #### C DP, MG, SRAVANTHI, BMPX ####[facility] [address] [place], [place] [address])[phone] Director: Sarath Olivera MD NRBC Automated 0.0 per 100 WBC Normal 0.0 [facility] Comment on above: Performed By: #### C DP, MG, SRAVANTHI, BMPX ####[facility] [address] [place], [place] [address]19)[phone] Director: Sarath Olivera MD Platelet Count See Reflexed IPF Result Normal 138-453 [facility] Comment on above: Performed By: #### C DP, MG, SRAVANTHI, BMPX ####[facility] [address] [place], [place] [phone])[phone] Director: Sarath Olivera MD Platelet, Fluoresc. 70 k/uL Low 138-453 [facility] Comment on above: Performed By: #### C DP, MG, SRAVANTHI, BMPX ####[facility] [address] [place] [address] [phone])[phone] Director: Sarath Olivera MD PLT, Immature Fract. 10.5 % High 1.1-10.3 [facility] Comment on above: Performed By: #### C DP, MG, SRAVANTHI, BMPX ####[facility] [address] [place], [place] [address]19)[phone] Director: Sarath Olivera MD RBC (Bld) [#/Vol] 2.74 10*6/uL Low 3.95-5.11 [facility] Comment on above: Performed By: #### C DP, MG, SRAVANTHI, BMPX ####[facility] [address] [place], [place] [phone] Director: Sarath Olivera MD WBC (Bld) [#/Vol] 9.9 10*3/uL Normal 3.5-11.3 [facility] Comment on above: Performed By: #### C DP, MG, SRAVANTHI, BMPX ####[facility] [address] [place], [place] [phone])[phone] Director: Sarath Olivera MD Calcium, Ionicon 01-07-2024 Calcium [Moles/Vol] 1.13 mmol/L Normal 1.13-1.33 [facility] Comment on above: Performed By: #### I OCAL ####[address] [phone] Director: Sarath Olivera MD Cult,Urineon 01-07-2024 Cult,Urine Specimen Description .CLEAN CATCH URINE Special Requests Site: Urine Culture NO GROWTH Report Status FINAL 01/07/2024 Normal [facility] Comment on above: Performed By: #### U RC ####[address] [phone] Director: Sarath Olivera MD Gl Hemostasis TEG w/Lysison 01-07-2024 Fibrinogen, Func TEG 17.9 mm Normal 15.0-32.0 [facility] Comment on above: Performed By: #### G HLTEG ####[address] [phone] Director: Sarath Olivera MD LY30 (Lysis) TEG 1.0 % Normal 0.0-2.6 [facility] Comment on above: Performed By: #### G HLTEG ####[address] [phone] Director: Sarath Olivera MD MA Rapid TEG 54.9 mm Normal 52.0-70 [facility] Comment on above: Performed By: #### G HLTEG ####[address] [phone] Director: Sarath Olivera MD R(Reaction Time) TEG 5.7 min Normal 4.6-9.1 [facility] Comment on above: Performed By: #### G HLTEG ####[address] [phone] Director: Sarath Olivera MD Glucose (POC)on 01-07-2024 Glucose [Mass/Vol] 161 mg/dL High 74-100 [facility] Glucose [Mass/Vol] 143 mg/dL High 74-100 [facility] Glucose [Mass/Vol] 157 mg/dL High 74-100 [facility] Glucose,Whole Bloodon 2023 Glucose [Mass/Vol] 142 mg/dL High 65-105 [facility] Glucose [Mass/Vol] 145 mg/dL High 65-105 [facility] Lactic Acid (POC)on 01-07-20 24 Lactate [Moles/Vol] 1.0 mmol/L Normal 0.56-1.39 [facility] Lactate [Moles/Vol] 1.0 mmol/L Normal 0.56-1.39 [facility] Lactate [Moles/Vol] 1.1 mmol/L Normal 0.56-1.39 [facility] Magnesiumon 01-07-2024 Magnesium [Mass/Vol] 1.9 mg/dL Normal 1.6-2.4 [facility] Comment on above: Performed By: #### C DP, MG, SRAVANTHI, BMPX ####[address] [place] [address] lab Director: Sarath Olivera MD Phosphorus, Inorg.on 024 Phosphorus, Inorg. 3.1 mg/dL Normal 2.5-4.5 [facility] Comment on above: Performed By: #### C DP, MG, SRAVANTHI, BMPX ####[employer] [place], [place] [id number] Lab Director: Sarath Olivera MD XR CHEST PORTABLEon 01-07-20 24 XR CHEST PORTABLE EXAMINATION: ONE XRAY VIEW OF THE CHEST 01/07/2024 4:48 am COMPARISON: 07 January 2024 HISTORY: ORDERING SYSTEM PROVIDED HISTORY: rib fractures TECHNOLOGIST PROVIDED HISTORY: rib fractures Reason for Exam: port supine FINDINGS: AP portable view of the chest time stamped at 605 hours demonstrates an endotracheal tube terminating 2 cm above the ave and intestinal tube extending below the fundus of the stomach, tip out of the field of view. Right IJ catheter terminates in the distal SVC. No change in cardiomegaly and left pleural effusion as well as left basilar atelectasis. There is been a slight increase in the pulmonary vascularity since prior study. No extrapleural air is noted. IMPRESSION: 1. Slight increase in pulmonary vascularity since prior study. 2. No change in cardiomegaly and left pleural effusion. 3. Support tubes and lines as described above. Interpreted by: Mayelin Reynolds MD Signed by: Mayelin Reynolds MD 01/07/24 Final result Normal [facility] XR CHEST PORTABLE EXAMINATION: ONE XRAY VIEW OF THE CHEST 01/07/2024 1:23 am COMPARISON: Yesterday HISTORY: ORDERING SYSTEM PROVIDED HISTORY: assess for pneumo with increasing peep TECHNOLOGIST PROVIDED HISTORY: assess for pneumo with increasing peep Reason for Exam: port upright FINDINGS: Endotracheal tube terminates 3 cm above the ave. Enteric tube courses below the diaphragm. No pneumothorax. Severe left basilar atelectasis with small left pleural effusion similar to prior exam. Heart size is stable. IMPRESSION: Satisfactory position of support devices. Interpreted by: Deon Webb MD Signed by: Deon Webb MD 01/07/24 Final result Normal [facility] Albuminon 01-06-2024 Albumin [Mass/Vol] 2.8 g/dL Low 3.5-5.2 [facility] Comment on above: Performed By: #### V D25, HH, GLYHGB, TSHX, FT4, ALB ####[address] [place] [address] [facility] Director: Sarath Olivera MD Arterial Bld Gas,POCon 01-05 FIO2 100.0 Normal [facility] HCO3 (Bld) [Moles/Vol] 20.7 mmol/L Low 21.0-28.0 [facility] Negative Base Excess (calc) 3.5 mmol/L High 0.0-2.0 [facility] Oxygen saturation in Blood 99.5 % High 94.0-98.0 [facility] pCO2, Arterial 32.9 mm Hg Low 35.0-48.0 [facility] pH, Arterial 7.406 Normal 7.350-7.450 [facility] pO2, Arterial 164.9 mm Hg High 83.0-108.0 [facility] Site Drawn Arterial Line Normal [facility] FIO2 100.0 Normal [facility] HCO3 (Bld) [Moles/Vol] 19.1 mmol/L Low 21.0-28.0 [facility] Negative Base Excess (calc) 4.6 mmol/L High 0.0-2.0 [facility] Oxygen saturation in Blood 99.3 % High 94.0-98.0 [facility] pCO2, Arterial 29.3 mm Hg Low 35.0-48.0 [facility] pH, Arterial 7.421 Normal 7.350-7.450 [facility] pO2, Arterial 142.4 mm Hg High 83.0-108.0 [facility] Site Drawn Arterial Line Normal [facility] FIO2 3.0 Normal [facility] HCO3 (Bld) [Moles/Vol] 18.8 mmol/L Low 21.0-28.0 [facility] Negative Base Excess (calc) 5.5 mmol/L High 0.0-2.0 [facility] O2 Device Cannula Normal [facility] Oxygen saturation in Blood 90.0 % Low 94.0-98.0 [facility] pCO2, Arterial 30.6 mm Hg Low 35.0-48.0 [facility] pH, Arterial 7.395 Normal 7.350-7.450 [facility] pO2, Arterial 57.8 mm Hg Low 83.0-108.0 [facility] Site Drawn Right Radial Artery Normal [facility] FIO2 5.0 Normal [facility] HCO3 (Bld) [Moles/Vol] 12.6 mmol/L Low 21.0-28.0 [facility] Negative Base Excess (calc) 14.2 mmol/L High 0.0-2.0 [facility] Oxygen saturation in Blood 94.6 % Normal 94.0-98.0 [facility] pCO2, Arterial 32.3 mm Hg Low 35.0-48.0 [facility] pH, Arterial 7.199 Critically low 7.350-7.450 [facility] pO2, Arterial 88.8 mm Hg Normal 83.0-108.0 [facility] Site Drawn Right Radial Artery Normal [facility] Basic Metab w/rfx MGon 01-05 Anion gap [Moles/Vol] 18 mmol/L High 9-16 [facility] Comment on above: Performed By: #### C DP, SRAVANTHI, MG, BMPX, PT ####[facility] [address] [place] [address] Lab Director: Sarath Olivera MD Calcium [Mass/Vol] 7.7 mg/dL Low 8.6-10.4 [facility] Comment on above: Performed By: #### C DP, SRAVANTHI, MG, BMPX, PT ####[facility] [address] [place] [address] Lab Director: Sarath Olivera MD Chloride [Moles/Vol] 110 mmol/L High 98-107 [facility] Comment on above: Performed By: #### C DP, SRAVANTHI, MG, BMPX, PT ####[facility] [address] [place] [address] Lab Director: Sarath Olivera MD CO2 [Moles/Vol] 15 mmol/L Low 20-31 [facility] Comment on above: Performed By: #### C DP, SRAVANTHI, MG, BMPX, PT ####[address] [place] [address] Lab Director: Sarath Olivera MD Creatinine [Mass/Vol] 1.9 mg/dL High 0.50-0.90 [facility] Comment on above: Performed By: #### C DP, SRAVANTHI, MG, BMPX, PT ####[employer] [address] [place] [address] Lab Director: Sarath Olivera MD GFR/1.73 sq M.predicted among non-blacks MDRD (S/P/Bld) [Vol rate/Area] 26 mL/min/{1.73_m2} Low >60 [facility] Comment on above: Result Comment: These results are not intended for use in patients <18 years of age. eGFR results are calculated without a race factor using the 2020 CKD-EPI equation. Careful clinical correlation is recommended, particularly when comparing to results calculated using previous equations. The CKD-EPI equation is less accurate in patients with extremes of muscle mass, extra-renal metabolism of creatine, excessive creatine ingestion, or following therapy that affects renal tubular secretion. Performed By: #### C DP, SRAVANTHI, MG, BMPX, PT ####[address] [place], [place] [address])[phone] Director: Sarath Olivera MD Glucose [Mass/Vol] 173 mg/dL High 74-99 [facility] Comment on above: Performed By: #### C DP, SRAVANTHI, MG, BMPX, PT ####[employer] [address] [place] [address] Lab Director: Sarath Olivera MD Potassium [Moles/Vol] 4.6 mmol/L Normal 3.7-5.3 [facility] Comment on above: Performed By: #### C DP, SRAVANTHI, MG, BMPX, PT ####[facility] [address] [place] [address] Lab Director: Sarath Olivera MD Sodium [Moles/Vol] 143 mmol/L Normal 136-145 [facility] Comment on above: Performed By: #### C DP, SRAVANTHI, MG, BMPX, PT ####[facility] [address] [place], [place] [id number])[phone] Director: Sarath Olivera MD Urea nitrogen [Mass/Vol] 32 mg/dL High 8-23 [facility] Comment on above: Performed By: #### C DP, SRAVANTHI, MG, BMPX, PT ####[facility] [address] [place], [place] [id number])[phone] Director: Sarath Olivera MD Anion gap [Moles/Vol] 21 mmol/L High 9-16 [facility] Comment on above: Performed By: #### B MPX, CDP, SRAVANTHI, MG, LACDS ####[facility] [address] [place], [place] [address])[phone] Director: Sarath Olivera MD Calcium [Mass/Vol] 7.6 mg/dL Low 8.6-10.4 [facility] Comment on above: Performed By: #### B MPX, CDP, SRAVANTHI, MG, LACDS ####[facility] [address] [place], [place] [address])[phone] Director: Sarath Olivera MD Chloride [Moles/Vol] 113 mmol/L High 98-107 [facility] Comment on above: Performed By: #### B MPX, CDP, SRAVANTHI, MG, LACDS ####[facility] [address] [place], [place] [address])[phone] Director: Sarath Olivera MD CO2 [Moles/Vol] 9 mmol/L Critically low 20-31 [facility] Comment on above: Performed By: #### B MPX, CDP, SRAVANTHI, MG, LACDS ####[facility] [address] [place], [place] [address])[phone] Director: Saraht Olivera MD Creatinine [Mass/Vol] 1.7 mg/dL High 0.50-0.90 [facility] Comment on above: Performed By: #### B MPX, CDP, SRAVANTHI, MG, LACDS ####[address] [place] [address] Lab Director: Sarath Olivera MD GFR/1.73 sq M.predicted among non-blacks MDRD (S/P/Bld) [Vol rate/Area] 20 mL/min/{1.73_m2} Low >60 [facility] Comment on above: Result Comment: These results are not intended for use in patients <18 years of age. eGFR results are calculated without a race factor using the 2020 CKD-EPI equation. Careful clinical correlation is recommended, particularly when comparing to results calculated using previous equations. The CKD-EPI equation is less accurate in patients with extremes of muscle mass, extra-renal metabolism of creatine, excessive creatine ingestion, or following therapy that affects renal tubular secretion. Performed By: #### B MPX, CDP, SRAVANTHI, MG, LACDS ####[address] [address] Lab Director: Sarath Olivera MD Glucose [Mass/Vol] 184 mg/dL High 74-99 [facility] Comment on above: Performed By: #### B MPX, CDP, SRAVANTHI, MG, LACDS ####[address] [address])[phone] Director: Sarath Olivera MD Potassium [Moles/Vol] 4.7 mmol/L Normal 3.7-5.3 [facility] Comment on above: Performed By: #### B MPX, CDP, SRAVANTHI, MG, LACDS ####[facility] [address] [place] [address] Lab Director: Sarath Olivera MD Sodium [Moles/Vol] 143 mmol/L Normal 136-145 [facility] Comment on above: Performed By: #### B MPX, CDP, SRAVANTHI, MG, LACDS ####[facility] [address] [place] [address] Lab Director: Sarath Olivera MD Urea nitrogen [Mass/Vol] 30 mg/dL High 8-23 [facility] Comment on above: Performed By: #### B MPX, CDP, SRAVANTHI, MG, LACDS ####[facility] [address] [place], [place] [id number])[phone] Director: Sarath Olivera MD Basic Metabolic Profon 01-05 Anion gap [Moles/Vol] 9 mmol/L Normal 9-16 [facility] Comment on above: Performed By: #### P HO, MG, PT, CDP, IOCAL, BMP ####[facility] [address] [place], [place] [id number])[phone] Director: Sarath Olivear MD Calcium [Mass/Vol] 8.0 mg/dL Low 8.6-10.4 [facility] Comment on above: Performed By: #### P HO, MG, PT, CDP, IOCAL, BMP ####[facility] [address] [place] [address])[phone] Director: Sarath Olivera MD Chloride [Moles/Vol] 114 mmol/L High 98-107 [facility] Comment on above: Performed By: #### P HO, MG, PT, CDP, IOCAL, BMP ####[facility] [address] [place], [place] [id number])[phone] Director: Sarath Olivera MD CO2 [Moles/Vol] 19 mmol/L Low 20-31 [facility] Comment on above: Performed By: #### P HO, MG, PT, CDP, IOCAL, BMP ####[facility] [address] [place], [place] [id number])[phone] Director: Sarath Olivera MD Creatinine [Mass/Vol] 1.4 mg/dL High 0.50-0.90 [facility] Comment on above: Performed By: #### P HO, MG, PT, CDP, IOCAL, BMP ####[facility] [address] [place], [place] [phone] Director: Sarath Olivera MD GFR/1.73 sq M.predicted among non-blacks MDRD (S/P/Bld) [Vol rate/Area] 38 mL/min/{1.73_m2} Low >60 [facility] Comment on above: Result Comment: These results are not intended for use in patients <18 years of age. eGFR results are calculated without a race factor using the 2020 CKD-EPI equation. Careful clinical correlation is recommended, particularly when comparing to results calculated using previous equations. The CKD-EPI equation is less accurate in patients with extremes of muscle mass, extra-renal metabolism of creatine, excessive creatine ingestion, or following therapy that affects renal tubular secretion. Performed By: #### P HO, MG, PT, CDP, IOCAL, BMP ####[facility] [address] [place] [address])[phone] Director: Sarath Olivera MD Glucose [Mass/Vol] 147 mg/dL High 74-99 [facility] Comment on above: Performed By: #### P HO, MG, PT, CDP, IOCAL, BMP ####[facility] [address] [place] [address])[phone] Director: Sarath Olivera MD Potassium [Moles/Vol] 4.4 mmol/L Normal 3.7-5.3 [facility] Comment on above: Performed By: #### P HO, MG, PT, CDP, IOCAL, BMP ####[facility] [address] [place] [address] Lab Director: Sarath Olivera MD Sodium [Moles/Vol] 142 mmol/L Normal 136-145 [facility] Comment on above: Performed By: #### P HO, MG, PT, CDP, IOCAL, BMP ####[facility] [address] [place] [address])[phone] Director: Sarath Olivera MD Urea nitrogen [Mass/Vol] 36 mg/dL High 8-23 [facility] Comment on above: Performed By: #### P HO, MG, PT, CDP, IOCAL, BMP ####[facility] [address] [place], [place] [address])[phone] Director: Sarath Olivera MD CBC with Diffon 01-06-2024 Abs. Basophil 0.00 k/uL Normal 0.0-0.2 [facility] Comment on above: Performed By: #### P HO, MG, PT, CDP, IOCAL, BMP ####[facility] [address] [place], [place] [address])[phone] Director: Sarath Olivera MD Abs.Imm.Granulocyte 0.00 k/uL Normal 0.00-0.30 [facility] Comment on above: Performed By: #### P HO, MG, PT, CDP, IOCAL, BMP ####[place], [place] [address])[phone] Director: Sarath Olivera MD Abs.Neutrophil (Seg) 9.26 k/uL High 1.8-7.7 [facility] Comment on above: Performed By: #### P HO, MG, PT, CDP, IOCAL, BMP ####[place], [place] [address])[phone] Director: Sarath Olivera MD Basophils/100 WBC (Bld) 0 % Normal 0-2 [facility] Comment on above: Performed By: #### P HO, MG, PT, CDP, IOCAL, BMP ####[place], [place] [address])[phone] Director: Sarath Olivera MD Eosinophils (Bld) [#/Vol] 0.00 10*3/uL Normal 0.0-0.4 [facility] Comment on above: Performed By: #### P HO, MG, PT, CDP, IOCAL, BMP ####[place], [place] [address])[phone] Director: Sarath Olivera MD Eosinophils/100 WBC (Bld) 0 % Low 1-4 [facility] Comment on above: Performed By: #### P HO, MG, PT, CDP, IOCAL, BMP ####[address] [address])[phone] Director: Sarath Olivera MD Immature granulocytes/100 WBC (Bld) 0 % Normal 0 [facility] Comment on above: Performed By: #### P HO, MG, PT, CDP, IOCAL, BMP ####[address] [address])[phone] Director: Sarath Olivera MD Lymphocytes (Bld) [#/Vol] 0.52 10*3/uL Low 1.0-4.8 [facility] Comment on above: Performed By: #### P HO, MG, PT, CDP, IOCAL, BMP ####[address] [address])[phone] Director: Sarath Olivera MD Lymphocytes/100 WBC (Bld) 5 % Low 24-44 [facility] Comment on above: Performed By: #### P HO, MG, PT, CDP, IOCAL, BMP ####[address] [address])[phone] Director: Sarath Olivera MD Monocytes (Bld) [#/Vol] 0.52 10*3/uL Normal 0.1-0.8 [facility] Comment on above: Performed By: #### P HO, MG, PT, CDP, IOCAL, BMP ####[address] [address])[phone] Director: Sarath Olivera MD Monocytes/100 WBC (Bld) 5 % Normal 1-7 [facility] Comment on above: Performed By: #### P HO, MG, PT, CDP, IOCAL, BMP ####[address] [address])[phone] Director: Sarath Olivera MD Morphology Manoj (Bld) [Interp] Normal Normal [facility] Comment on above: Performed By: #### P HO, MG, PT, CDP, IOCAL, BMP ####[address] [place], [place] [id number])[phone] Director: Sarath Olivera MD Neutrophil (Seg) 90 % High 36-66 [facility] Comment on above: Performed By: #### P HO, MG, PT, CDP, IOCAL, BMP ####[facility] [address] [place], [place] [id number])[phone] Director: Sarath Olivera MD Erythrocyte distribution width (RBC) [Ratio] 14.5 % High 11.8-14.4 [facility] Comment on above: Performed By: #### P HO, MG, PT, CDP, IOCAL, BMP ####[address] [address])[phone] Director: Sarath Olivera MD Hematocrit (Bld) [Volume fraction] 26.9 % Low 36.3-47.1 [facility] Comment on above: Performed By: #### P HO, MG, PT, CDP, IOCAL, BMP ####[address] [id number])[phone] Director: Sarath Olivera MD Hemoglobin (Bld) [Mass/Vol] 9.0 g/dL Low 11.9-15.1 [facility] Comment on above: Performed By: #### P HO, MG, PT, CDP, IOCAL, BMP ####[facility] [address] [place], [place] [id number])[phone] Director: Sarath Olivera MD MCH (RBC) [Entitic mass] 30.8 pg Normal 25.2-33.5 [facility] Comment on above: Performed By: #### P HO, MG, PT, CDP, IOCAL, BMP ####[facility] [address] [place] [address] Lab Director: Sarath Olivera MD MCHC (RBC) [Mass/Vol] 33.5 g/dL Normal 28.4-34.8 [facility] Comment on above: Performed By: #### P HO, MG, PT, CDP, IOCAL, BMP ####[address] [id number])[phone] Director: Sarath Olivera MD MCV (RBC) [Entitic vol] 92.1 fL Normal 82.6-102.9 [facility] Comment on above: Performed By: #### P HO, MG, PT, CDP, IOCAL, BMP ####[place], [place] [address])[phone] Director: Sarath Olivera MD NRBC Automated 0.0 per 100 WBC Normal 0.0 [facility] Comment on above: Performed By: #### P HO, MG, PT, CDP, IOCAL, BMP ####[place], [place] [address])[phone] Director: Sarath Olivera MD Platelet mean volume (Bld) [Entitic vol] 12.9 fL Normal 8.1-13.5 [facility] Comment on above: Performed By: #### P HO, MG, PT, CDP, IOCAL, BMP ####[place], [place] [address])[phone] Director: Sarath Olivera MD Platelets (Bld) [#/Vol] 66 10*3/uL Low 138-453 [facility] Comment on above: Performed By: #### P HO, MG, PT, CDP, IOCAL, BMP ####[address] [id number])[phone] Director: Sarath Olivera MD RBC (Bld) [#/Vol] 2.92 10*6/uL Low 3.95-5.11 [facility] Comment on above: Performed By: #### P HO, MG, PT, CDP, IOCAL, BMP ####[address] [address])[phone] Director: Sarath Olivera MD WBC (Bld) [#/Vol] 10.3 10*3/uL Normal 3.5-11.3 [facility] Comment on above: Performed By: #### P HO, MG, PT, CDP, IOCAL, BMP ####[place], [place] [address])[phone] Director: Sarath Olivera MD Abs. Basophil 0.00 k/uL Normal 0.00-0.20 [facility] Comment on above: Performed By: #### C DP ####[place], [place] [address])[phone] Director: Sarath Olivera MD Abs.Imm.Granulocyte 0.00 k/uL Normal 0.00-0.30 [facility] Comment on above: Performed By: #### C DP ####[place], [place] [address])[phone] Director: Sarath Olivera MD Abs.Neutrophil (Seg) 12.38 k/uL High 1.50-8.10 [facility] Comment on above: Performed By: #### C DP ####[place], [place] [address])[phone] Director: Sarath Olivera MD Basophils/100 WBC (Bld) 0 % Normal 0-2 [facility] Comment on above: Performed By: #### C DP ####[place], [place] [address])[phone] Director: Sarath Olivera MD Eosinophils (Bld) [#/Vol] 0.00 10*3/uL Normal 0.00-0.44 [facility] Comment on above: Performed By: #### C DP ####[address] [id number])[phone] Director: Sarath Olivera MD Eosinophils/100 WBC (Bld) 0 % Low 1-4 [facility] Comment on above: Performed By: #### C DP ####[address] [id number])[phone] Director: Sarath Olivera MD Immature granulocytes/100 WBC (Bld) 0 % Normal 0 [facility] Comment on above: Performed By: #### C DP ####[address] [id number])[phone] Director: Sarath Olivera MD Lymphocytes (Bld) [#/Vol] 0.91 10*3/uL Low 1.10-3.70 [facility] Comment on above: Performed By: #### C DP ####[address] [id number])[phone] Director: Sarath Olivera MD Lymphocytes/100 WBC (Bld) 6 % Low 24-43 [facility] Comment on above: Performed By: #### C DP ####[address] [id number])[phone] Director: Sarath Olivera MD Monocytes (Bld) [#/Vol] 1.81 10*3/uL High 0.10-1.20 [facility] Comment on above: Performed By: #### C DP ####[address] [phone])[phone] Director: Sarath Olivera MD Monocytes/100 WBC (Bld) 12 % Normal 3-12 [facility] Comment on above: Performed By: #### C DP ####[address] [id number])[phone] Director: Sarath Olivera MD Morphology Manoj (Bld) [Interp] ANISOCYTOSIS PRESENT Normal [facility] Comment on above: Performed By: #### C DP ####[facility] [address] [place], [place] [id number])[phone] Director: Sarath Olivera MD Neutrophil (Seg) 82 % High 36-65 [facility] Comment on above: Performed By: #### C DP ####[address] [address] Lab Director: Sarath Olivera MD Erythrocyte distribution width (RBC) [Ratio] 14.9 % High 11.8-14.4 [facility] Comment on above: Performed By: #### C DP ####[address] [address])[phone] Director: Sarath Olivera MD Hematocrit (Bld) [Volume fraction] 25.3 % Low 36.3-47.1 [facility] Comment on above: Performed By: #### C DP ####[address] [phone] Director: Sarath Olivera MD Hemoglobin (Bld) [Mass/Vol] 7.7 g/dL Low 11.9-15.1 [facility] Comment on above: Performed By: #### C DP ####[address] [phone] Director: Sarath Olivera MD MCH (RBC) [Entitic mass] 30.8 pg Normal 25.2-33.5 [facility] Comment on above: Performed By: #### C DP ####[address] [phone])[phone] Director: Sarath Olivera MD MCHC (RBC) [Mass/Vol] 30.4 g/dL Normal 28.4-34.8 [facility] Comment on above: Performed By: #### C DP ####[address] [phone] Director: Sarath Olivera MD MCV (RBC) [Entitic vol] 101.2 fL Normal 82.6-102.9 [facility] Comment on above: Performed By: #### C DP ####[address] [place], [place] [phone] Director: Sarath Olivera MD NRBC Automated 0.0 per 100 WBC Normal 0.0 [facility] Comment on above: Performed By: #### C DP ####[address] [address])[phone] Director: Sarath Olivera MD Platelet mean volume (Bld) [Entitic vol] 12.7 fL Normal 8.1-13.5 [facility] Comment on above: Performed By: #### C DP ####[address] [address])[phone] Director: Sarath Olivera MD Platelets (Bld) [#/Vol] 97 10*3/uL Low 138-453 [facility] Comment on above: Performed By: #### C DP ####[address] [address])[phone] Director: Sarath Olivera MD RBC (Bld) [#/Vol] 2.50 10*6/uL Low 3.95-5.11 [facility] Comment on above: Performed By: #### C DP ####[address] [address])[phone] Director: Sarath Olivera MD WBC (Bld) [#/Vol] 15.1 10*3/uL High 3.5-11.3 [facility] Comment on above: Performed By: #### C DP ####[address] [phone] Director: Sarath Olivera MD Abs. Basophil 0.00 k/uL Normal 0.0-0.2 [facility] Comment on above: Performed By: #### C DP, SRAVANTHI, MG, BMPX, PT ####[facility] [address] [place], [place] [address])[phone] Director: Sarath Olivera MD Abs.Imm.Granulocyte 0.00 k/uL Normal 0.00-0.30 [facility] Comment on above: Performed By: #### C DP, SRAVANTHI, MG, BMPX, PT ####[facility] [address] [place] [address] Lab Director: Sarath Olivera MD Abs.Neutrophil (Seg) 17.28 k/uL High 1.8-7.7 [facility] Comment on above: Performed By: #### C DP, SRAVANTHI, MG, BMPX, PT ####[place], [place] [address])[phone] Director: Sarath Oilvera MD Basophils/100 WBC (Bld) 0 % Normal 0-2 [facility] Comment on above: Performed By: #### C DP, SRAVANTHI, MG, BMPX, PT ####[place], [place] [address])[phone] Director: Sarath Olivera MD Eosinophils (Bld) [#/Vol] 0.00 10*3/uL Normal 0.0-0.4 [facility] Comment on above: Performed By: #### C DP, SRAVANTHI, MG, BMPX, PT ####[facility] [address] [place] [address] [phone])[phone] Director: Sarath Olivera MD Eosinophils/100 WBC (Bld) 0 % Low 1-4 [facility] Comment on above: Performed By: #### C DP, SRAVANTHI, MG, BMPX, PT ####[address] [address])[phone] Director: Sarath Olivera MD Immature granulocytes/100 WBC (Bld) 0 % Normal 0 [facility] Comment on above: Performed By: #### C DP, SRAVANTHI, MG, BMPX, PT ####[facility] [address] [place] [address] Lab Director: Sarath Olivera MD Lymphocytes (Bld) [#/Vol] 1.41 10*3/uL Normal 1.0-4.8 [facility] Comment on above: Performed By: #### C DP, SRAVANTHI, MG, BMPX, PT ####[facility] [address] [place] [address] Lab Director: Sarath Olivera MD Lymphocytes/100 WBC (Bld) 7 % Low 24-44 [facility] Comment on above: Performed By: #### C DP, SRAVANTHI, MG, BMPX, PT ####[facility] [address] [place] [address])[phone] Director: Sarath Olivera MD Monocytes (Bld) [#/Vol] 1.41 10*3/uL High 0.1-0.8 [facility] Comment on above: Performed By: #### C DP, SRAVANTHI, MG, BMPX, PT ####[facility] [address] [place] [address] [phone])[phone] Director: Sarath Olivera MD Monocytes/100 WBC (Bld) 7 % Normal 1-7 [facility] Comment on above: Performed By: #### C DP, SRAVANTHI, MG, BMPX, PT ####[facility] [address] [place], [place] [phone] Director: Sarath Olivera MD Morphology Manoj (Bld) [Interp] Normal Normal [facility] Comment on above: Performed By: #### C DP, SRAVANTHI, MG, BMPX, PT ####[facility] [address] [place] [address] Lab Director: Sarath Olivera MD Neutrophil (Seg) 86 % High 36-66 [facility] Comment on above: Performed By: #### C DP, SRAVANTHI, MG, BMPX, PT ####[facility] [address] [place], [place] [id number])[phone] Director: Sarath Olivera MD Platelet, Fluoresc. Platelet clumps present, count appears decreased. Normal 138-453 [facility] Comment on above: Performed By: #### C DP, SRAVANTHI, MG, BMPX, PT ####[facility] [address] [place] [address])[phone] Director: Sarath Olivera MD Erythrocyte distribution width (RBC) [Ratio] 14.6 % High 11.8-14.4 [facility] Comment on above: Performed By: #### C DP, SRAVANTHI, MG, BMPX, PT ####[facility] [address] [place] [address])[phone] Director: Sarath Olivera MD Hematocrit (Bld) [Volume fraction] 29.0 % Low 36.3-47.1 [facility] Comment on above: Performed By: #### C DP, SRAVANTHI, MG, BMPX, PT ####[facility] [address] [place] [address])[phone] Director: Sarath Olivera MD Hemoglobin (Bld) [Mass/Vol] 9.2 g/dL Low 11.9-15.1 [facility] Comment on above: Performed By: #### C DP, SRAVANTHI, MG, BMPX, PT ####[facility] [address] [place], [place] [phone])[phone] Director: Sarath Olivera MD MCH (RBC) [Entitic mass] 31.0 pg Normal 25.2-33.5 [facility] Comment on above: Performed By: #### C DP, SRAVANTHI, MG, BMPX, PT ####[facility] [address] [place], [place] [phone] Director: Sarath Olivera MD MCHC (RBC) [Mass/Vol] 31.7 g/dL Normal 28.4-34.8 [facility] Comment on above: Performed By: #### C DP, SRAVANTHI, MG, BMPX, PT ####[address] [address] Lab Director: Sarath Olivera MD MCV (RBC) [Entitic vol] 97.6 fL Normal 82.6-102.9 [facility] Comment on above: Performed By: #### C DP, SRAVANTHI, MG, BMPX, PT ####[address] [address] Lab Director: Sarath Olivera MD NRBC Automated 0.0 per 100 WBC Normal 0.0 [facility] Comment on above: Performed By: #### C DP, SRAVANTHI, MG, BMPX, PT ####[address] [address] Lab Director: Sarath Olivera MD Platelet Count See Reflexed IPF Result Normal 138-453 [facility] Comment on above: Performed By: #### C DP, SRAVANTHI, MG, BMPX, PT ####[address] [address] Lab Director: Sarath Olivera MD RBC (Bld) [#/Vol] 2.97 10*6/uL Low 3.95-5.11 [facility] Comment on above: Performed By: #### C DP, SRAVANTHI, MG, BMPX, PT ####[address] [address] Lab Director: Sarath Olivera MD WBC (Bld) [#/Vol] 20.1 10*3/uL High 3.5-11.3 [facility] Comment on above: Performed By: #### C DP, SRAVANTHI, MG, BMPX, PT ####[address] [address] Lab Director: Sarath Olivera MD Abs. Basophil 0.00 k/uL Normal 0.0-0.2 [facility] Comment on above: Performed By: #### B MPX, CDP, SRAVANTHI, MG, LACDS ####[facility] [address] [place], [place] [address])[phone] Director: Sarath Olivera MD Abs.Imm.Granulocyte 0.00 k/uL Normal 0.00-0.30 [facility] Comment on above: Performed By: #### B MPX, CDP, SRAVANTHI, MG, LACDS ####[facility] [address] [place], [place] [address])[phone] Director: Sarath Olivera MD Abs.Neutrophil (Seg) 16.68 k/uL High 1.8-7.7 [facility] Comment on above: Performed By: #### B MPX, CDP, SRAVANTHI, MG, LACDS ####[facility] [address] [place], [place] [address])[phone] Director: Sarath Olivera MD Basophils/100 WBC (Bld) 0 % Normal 0-2 [facility] Comment on above: Performed By: #### B MPX, CDP, SRAVANTHI, MG, LACDS ####[facility] [address] [place], [place] [address])[phone] Director: Sarath Olivera MD Eosinophils (Bld) [#/Vol] 0.00 10*3/uL Normal 0.0-0.4 [facility] Comment on above: Performed By: #### B MPX, CDP, SRAVANTHI, MG, LACDS ####[facility] [address] [place], [place] [address])[phone] Director: Sarath Olivera MD Eosinophils/100 WBC (Bld) 0 % Low 1-4 [facility] Comment on above: Performed By: #### B MPX, CDP, SRAVANTHI, MG, LACDS ####[address] [id number])[phone] Director: Sarath Olivera MD Immature granulocytes/100 WBC (Bld) 0 % Normal 0 [facility] Comment on above: Performed By: #### B MPX, CDP, SRAVANTHI, MG, LACDS ####[address] [id number])[phone] Director: Sarath Olivera MD Lymphocytes (Bld) [#/Vol] 1.01 10*3/uL Normal 1.0-4.8 [facility] Comment on above: Performed By: #### B MPX, CDP, SRAVANTHI, MG, LACDS ####[address] [phone] Director: Sarath Olivera MD Lymphocytes/100 WBC (Bld) 5 % Low 24-44 [facility] Comment on above: Performed By: #### B MPX, CDP, SRAVANTHI, MG, LACDS ####[address] [address])[phone] Director: Sarath Olivera MD Monocytes (Bld) [#/Vol] 2.41 10*3/uL High 0.1-0.8 [facility] Comment on above: Performed By: #### B MPX, CDP, SRAVANTHI, MG, LACDS ####[address] [address])[phone] Director: Sarath Olivera MD Monocytes/100 WBC (Bld) 12 % High 1-7 [facility] Comment on above: Performed By: #### B MPX, CDP, SRAVANTHI, MG, LACDS ####[address] [phone] Director: Sarath Olivera MD Morphology Manoj (Bld) [Interp] MACROCYTOSIS PRESENT Normal [facility] Comment on above: Performed By: #### B MPX, CDP, SRAVANTHI, MG, LACDS ####[facility] [address] [place] [address] Lab Director: Sarath Olivera MD Neutrophil (Seg) 83 % High 36-66 [facility] Comment on above: Performed By: #### B MPX, CDP, SRAVANTHI, MG, LACDS ####[facility] [address] [place] [address] Lab Director: Sarath Olivera MD Erythrocyte distribution width (RBC) [Ratio] 14.5 % High 11.8-14.4 [facility] Comment on above: Performed By: #### B MPX, CDP, SRAVANTHI, MG, LACDS ####[facility] [address] [place], [place] [id number])[phone] Director: Sarath Olivera MD Hematocrit (Bld) [Volume fraction] 34.4 % Low 36.3-47.1 [facility] Comment on above: Performed By: #### B MPX, CDP, SRAVANTHI, MG, LACDS ####[facility] [address] [place], [place] [phone] Director: Sarath Olivera MD Hemoglobin (Bld) [Mass/Vol] 10.2 g/dL Low 11.9-15.1 [facility] Comment on above: Performed By: #### B MPX, CDP, SRAVANTHI, MG, LACDS ####[facility] [address] [place], [place] [id number])[phone] Director: Sarath Olivera MD MCH (RBC) [Entitic mass] 31.2 pg Normal 25.2-33.5 [facility] Comment on above: Performed By: #### B MPX, CDP, SRAVANTHI, MG, LACDS ####[facility] [address] [place], [place] [phone] Director: Sarath Olivera MD MCHC (RBC) [Mass/Vol] 29.7 g/dL Normal 28.4-34.8 [facility] Comment on above: Performed By: #### B MPX, CDP, SRAVANTHI, MG, LACDS ####[facility] [address] [place] [address] [id number])[phone] Director: Sarath Olivera MD MCV (RBC) [Entitic vol] 105.2 fL High 82.6-102.9 [facility] Comment on above: Performed By: #### B MPX, CDP, SRAVANTHI, MG, LACDS ####[facility] [address] [place] [address] [id number])[phone] Director: Sarath Olivera MD NRBC Automated 0.0 per 100 WBC Normal 0.0 [facility] Comment on above: Performed By: #### B MPX, CDP, SRAVANTHI, MG, LACDS ####[address] [address])[phone] Director: Sarath Olivera MD Platelet mean volume (Bld) [Entitic vol] 12.8 fL Normal 8.1-13.5 [facility] Comment on above: Performed By: #### B MPX, CDP, SRAVANTHI, MG, LACDS ####[facility] [address] [place] [address] [phone] Director: Sarath Olivera MD Platelets (Bld) [#/Vol] 126 10*3/uL Low 138-453 [facility] Comment on above: Performed By: #### B MPX, CDP, SRAVANTHI, MG, LACDS ####[facility] [address] [place] [address] [id number])[phone] Director: Sarath Olivera MD RBC (Bld) [#/Vol] 3.27 10*6/uL Low 3.95-5.11 [facility] Comment on above: Performed By: #### B MPX, CDP, SRAVANTHI, MG, LACDS ####[facility] [address] [place], [place] [id number])[phone] Director: Sarath Olivera MD WBC (Bld) [#/Vol] 20.1 10*3/uL High 3.5-11.3 [facility] Comment on above: Performed By: #### B MPX, CDP, SRAVANTHI, MG, LACDS ####[facility] [place] [address] Lab Director: Sarath Olivera MD CT CHEST ABDOMEN PELVIS WO C [facility] 01-06-2024 CT CHEST ABDOMEN PELVIS WO CONTRAST EXAMINATION: CT OF THE CHEST, ABDOMEN, AND PELVIS WITHOUT CONTRAST 01/06/2024 6:08 am TECHNIQUE: CT of the chest, abdomen and pelvis was performed without the administration of intravenous contrast. Multiplanar reformatted images are provided for review. Automated exposure control, iterative reconstruction, and/or weight based adjustment of the mA/kV was utilized to reduce the radiation dose to as low as reasonably achievable. COMPARISON: 01/05/2024 at 17:25 HISTORY: ORDERING SYSTEM PROVIDED HISTORY: liver laceration, splenic laceration, left TECHNOLOGIST PROVIDED HISTORY: liver laceration, splenic laceration, left Reason for Exam: liver lac, splenic lac FINDINGS: THE STUDY IS LIMITED DUE TO THE LACK OF IV CONTRAST Chest: Mediastinum: Cardiomegaly. Unchanged. Right-sided central line terminates in right atrium. No mediastinal lymphadenopathy. There is patulous fluid-filled esophagus along with a sliding hiatal hernia. With fluid-filled esophagus is more prominent compared to prior. Risk of aspiration. Lungs/pleura: Small left pneumothorax but showing significant increased from prior. Bilateral small pleural effusions increased from prior particularly on the right. Left lower lobe consolidations have also worsened. Soft Tissues/Bones: Comminuted impacted left humeral neck fracture unchanged. Left 2nd, 4th, 5th, 6th, 7th, 8th, 9th and 10th rib fractures. The 5th, 6, 7th, 8th ribs are fractured in 2 places. Segment of the 8th rib in between the fractures is displaced inward. Grade 4 chest wall injury. Subcutaneous emphysema posterolateral chest wall and also in the supraspinous region. Abdomen/Pelvis: Organs: A history of liver laceration is provided. This is not clearly evident on this unenhanced study. Spleen is heterogeneous with surrounding hyperdensity compatible with intra/perisplenic hematoma secondary to splenic laceration. Difficult to grade the laceration due to lack of IV contrast. Again noted is simple right renal cyst 5 cm. Fullness of the adrenal glands may reflect hyperplasia. Pancreas and gallbladder unremarkable. GI/Bowel: Sliding hiatal hernia. No bowel obstruction. No acute infective process. Pelvis: Increase in pelvic fluid which is mildly hyperdense compatible with hemo peritoneum most probably from the splenic laceration. Urinary bladder catheterized. Peritoneum/Retroperiton eum: Pelvic free fluid representing blood as noted above. Trace perihepatic pneumoperitoneum along the posteroinferior aspect. No significant lymphadenopathy. No free intraperitoneal air.. Bones/Soft Tissues: Diffuse degenerative changes. IMPRESSION: 1. Worsening left pneumothorax. There is small left pneumothorax but showing significant increased from prior. 2. Bilateral small pleural effusions increased from prior particularly on the right. 3. Left lower lobe consolidations have worsened. 4. Grade 4 chest wall injury manifested by multiple left rib fractures several of which are fractured in 2 [address].. Detailed description above. 5. Comminuted impacted left humeral neck fracture unchanged. 6. Heterogeneous spleen with surrounding hyperdensity compatible with intra/perisplenic hematoma secondary to splenic laceration. Difficult to grade the laceration due to lack of IV contrast. 7. Worsening hemoperitoneum most probably from the splenic laceration. This would indicate continued hemorrhage. Please correlate with hemodynamic status and hemoglobin levels. 8. Trace perihepatic pneumoperitoneum along the posteroinferior aspect. 9. Patulous fluid-filled esophagus along with a sliding hiatal hernia. With fluid-filled esophagus is more prominent compared to prior. Risk of aspiration. The findings were sent to the Radiology Results Communication [facility] at 9:38 am on 01/06/2024 to be communicated to a licensed caregiver. Interpreted by: Pierre Cao MD Signed by: Pierre Cao MD 01/06/24 Final result Normal [facility] CT CYSTOGRAM W CONTRASTon CT CYSTOGRAM W CONTRAST EXAMINATION: CT CYSTOGRAM 01/06/2024 6:08 am TECHNIQUE: CT of the pelvis was performed after the administration of contrast into the bladder. Multiplanar reformatted images are provided for review. Automated exposure control, iterative reconstruction, and/or weight based adjustment of the mA/kV was utilized to reduce the radiation dose to as low as reasonably achievable. COMPARISON: None. HISTORY: ORDERING SYSTEM PROVIDED HISTORY: concern for bladder injury TECHNOLOGIST PROVIDED HISTORY: concern for bladder injury Additional Contrast?->1 Reason for Exam: possible bladder injury FINDINGS: There is contrast material in the urinary bladder with a Madlonado catheter in place. Urinary bladder wall is smooth with no findings of contrast extravasation to indicate bladder wall injury. Sigmoid diverticulosis is noted. There is a moderate amount of mildly hyperdense pelvic ascites suggestive of hemorrhage. There is no acute osseous abnormality of the bony pelvis. IMPRESSION: 1. Negative CT cystogram. 2. Mildly hyperdense pelvic ascites suspicious for hemorrhage. Interpreted by: Jose Todd MD Signed by: Jose Todd MD 01/06/24 Final result Normal [facility] CT HEAD WO CONTRASTon 2023 CT HEAD WO CONTRAST EXAMINATION: CT OF THE HEAD WITHOUT CONTRAST 01/06/2024 6:08 am TECHNIQUE: CT of the head was performed without the administration of intravenous contrast. Automated exposure control, iterative reconstruction, and/or weight based adjustment of the mA/kV was utilized to reduce the radiation dose to as low as reasonably achievable. COMPARISON: None. HISTORY: ORDERING SYSTEM PROVIDED HISTORY: Reported SDH TECHNOLOGIST PROVIDED HISTORY: Reported SDH FINDINGS: BRAIN/VENTRICLES: There is no acute intracranial hemorrhage, mass effect, or midline shift. There is satisfactory overall morgan-white matter differentiation. There is cerebral atrophy. There is remote infarct in the right basal ganglia. The ventricular structures are symmetric and unremarkable. The infratentorial structures are unremarkable. ORBITS: The visualized portion of the orbits demonstrate no acute abnormality. SINUSES: The visualized paranasal sinuses and mastoid air cells demonstrate no acute abnormality. SOFT TISSUES/SKULL: No acute abnormality of the visualized skull or soft tissues. IMPRESSION: Atrophy without acute intracranial abnormality. Remote infarct in the right basal ganglia. Interpreted by: Lucian Dee MD Signed by: Lucian Dee MD 01/06/24 Final result Normal [facility] Calcium, Ionicon 01-06-2024 Calcium [Moles/Vol] 1.14 mmol/L Normal 1.13-1.33 [facility] Comment on above: Performed By: #### P HO, MG, PT, CDP, IOCAL, BMP ####[address] [place] [address] Lab Director: Sarath Olivera MD Calcium [Moles/Vol] 1.45 mmol/L High 1.13-1.33 [facility] Comment on above: Performed By: #### Ashley CELESTE, UAMIC #### [facility] [address] [place] [address] Boat Camp Operator: Sarath Olivera MD Calcium [Moles/Vol] 1.07 mmol/L Low 1.13-1.33 [facility] Comment on above: Performed By: #### I OCKEITH, LACTIC, OHP ####[facility] [address] [place], [place] [address])[phone] Director: Sarath Olivera MD Calcium [Moles/Vol] 1.07 mmol/L Low 1.13-1.33 [facility] Comment on above: Performed By: #### Ashley CELESTE UAMIC #### [facility] [address] [place] [address] [employer] Operator: Sarath Olivera MD Calcium [Moles/Vol] 1.09 mmol/L Low 1.13-1.33 [facility] Comment on above: Performed By: #### I OCAL ####[facility] [address] [place], [place] [address])[phone] Director: Sarath Olivera MD Creatinine,Random Uron 01-05 Creatinine [Mass/Vol] 155.0 mg/dL Normal 28.0-217.0 [facility] Comment on above: Performed By: #### Ashley CELESTE, URCRE, URNA ####[facility] [address] [place], [place] [address])[phone] Director: Sarath Olivera MD Drug Scr, Abuse, Uron 2023 Fentanyl, Urine Sent to reference laboratory. Separate report to follow. Abnormal NEG [facility] Comment on above: Performed By: #### Ashley CELESTE, URCRE, URNA ####[facility] [address] [facility] [place] [address] Lab Director: Sarath Olivera MD Interpretive Info Assay provides rapid clinical screening only. Presumptive positive results for Normal [facility] Comment on above: Result Comment: lega l purposes should be confirmed by another method. To request confirmation, please call the lab within 7 days of sample submission. Performed By: #### D AU, URCRE, URNA ####[facility] [address] [place] [address] Lab Director: Sarath Olivera MD Opiate(s), Ur Positive Abnormal NEG [facility] Comment on above: Result Comment: Cuto ff: 300 ng/ml Performed By: #### D AU, URCRE, URNA ####[facility] [address] [place] [address] Lab Director: Sarath Olivera MD Oxycodone, Urine Sent to reference laboratory. Separate report to follow. Abnormal NEG [facility] Comment on above: Performed By: #### D AU, URCRE, URNA ####[facility] [address] [place] [address] Lab Director: Sarath Olivera MD Amphetamine(s),Ur Negative Normal NEG [facility] Comment on above: Result Comment: Cuto ff: 1000 ng/mL Performed By: #### D AU, URCRE, URNA ####[facility] [address] [place] [address] Lab Director: Sarath Olivera MD Barbiturate(s),Ur Negative Normal NEG [facility] Comment on above: Result Comment: Cuto ff: 200 ng/ml Performed By: #### D AU, URCRE, URNA ####[facility] [address] [place] [address] Lab Director: Sarath Olivera MD Benzodiazepine(s) Negative Normal NEG [facility] Comment on above: Result Comment: Cuto ff: 200 ng/ml Performed By: #### D AU, URCRE, URNA ####[facility] [address] [place] [address] Lab Director: Sarath Olivera MD Cannabinoid(s),Ur Negative Normal NEG [facility] Comment on above: Result Comment: Cuto ff: 50 ng/ml Performed By: #### D AU, URCRE, URNA ####[facility] [address]htgli[address] [place] [address] Lab Director: Sarath Olivera MD Cocaine Metabolite Negative Normal NEG [facility] Comment on above: Result Comment: Cuto ff: 300 ng/ml Performed By: #### D AU, URCRE, URNA ####[facility] [address] [place] [address] Lab Director: Sarath Olivera MD Methadone Ql (U) Negative Normal NEG [facility] Comment on above: Result Comment: Cuto ff: 300 ng/ml Performed By: #### D AU, URCRE, URNA ####[facility] [address]zkx42[address] [place] [address] Lab Director: Sarath Olivera MD Phencyclidine, Ur Negative Normal NEG [facility] Comment on above: Result Comment: Cuto ff: 25 ng/ml Performed By: #### D AU, URCRE, URNA ####[facility] [address] [place] [address] Lab Director: Sarath Olivera MD FLUORO FOR SURGICAL PROCEDUR ESon 01-06-2024 FLUORO FOR SURGICAL PROCEDURES Radiology exam is complete. No Radiologist dictation. Please follow up with ordering provider. Final result Normal [facility] Gl Hemostasis TEG w/Lysison 01-06-2024 Fibrinogen, Func TEG 20.5 mm Normal 15.0-32.0 [facility] Comment on above: Performed By: #### G HLTEG ####[facility] [address] [place] [address] Lab Director: Sarath Olivera MD LY30 (Lysis) TEG 0.4 % Normal 0.0-2.6 [facility] Comment on above: Performed By: #### G HLTEG ####[address] [place] [address] Lab Director: Sarath Olivera MD MA Rapid TEG 61.6 mm Normal 52.0-70 [facility] Comment on above: Performed By: #### G HLTEG ####[address] [address])[phone] Director: Sarath Olivera MD R(Reaction Time) TEG 6.0 min Normal 4.6-9.1 [facility] Comment on above: Performed By: #### G HLTEG ####[address] [address])[phone] Director: Sartah Olivera MD Fibrinogen, Func TEG 21.6 mm Normal 15.0-32.0 [facility] Comment on above: Performed By: #### G HLTEG ####[address] [address])[phone] Director: Sarath Olivera MD LY30 (Lysis) TEG 0.1 % Normal 0.0-2.6 [facility] Comment on above: Performed By: #### G HLTEG ####[address] [address])[phone] Director: Sarath Olivera MD MA Rapid TEG 62.3 mm Normal 52.0-70.0 [facility] Comment on above: Performed By: #### G HLTEG ####[address] [address])[phone] Director: Sarath Olivera MD R(Reaction Time) TEG 5.7 min Normal 4.6-9.1 [facility] Comment on above: Performed By: #### G HLTEG ####[facility] [address] [place], [place] [address] Lab Director: Sarath Olivera MD Glucose (POC)on 01-06-2024 Glucose [Mass/Vol] 150 mg/dL High 74-100 [facility] Glucose [Mass/Vol] 146 mg/dL High 74-100 [facility] Glucose [Mass/Vol] 164 mg/dL High 74-100 [facility] Glucose,Whole Bloodon 2023 Glucose [Mass/Vol] 155 mg/dL High 65-105 [facility] Hemoglobin A1Con 01-06-2024 Glucose [Mass/Vol] 111 mg/dL Normal [facility] Comment on above: Result Comment: The ADA and AACC recommend providing the estimated average glucose result to permit better patient understanding of their HBA1c result. Performed By: #### V D25, HH, GLYHGB, TSHX, FT4, ALB ####[facility] [address] [place], [place] [id number] Lab Director: Sarath Olivera MD HbA1c (Bld) [Mass fraction] 5.5 % Normal 4.0-6.0 [facility] Comment on above: Performed By: #### V D25, HH, GLYHGB, TSHX, FT4, ALB ####[facility] [address] [place], [place] [phone] Lab Director: Sarath Olivera MD Hgb/Hcton 01-06-2024 Hematocrit (Bld) [Volume fraction] 29.1 % Low 36.3-47.1 [facility] Comment on above: Performed By: #### V D25, HH, GLYHGB, TSHX, FT4, ALB ####[facility] [address] [place], [place] [id number] Lab Director: Sarath Olivera MD Hemoglobin (Bld) [Mass/Vol] 8.6 g/dL Low 11.9-15.1 [facility] Comment on above: Performed By: #### V D25, HH, GLYHGB, TSHX, FT4, ALB ####[facility] [address] [place] [address] Lab Director: Sarath Olivera MD Lactate, Sepsison 01-06-2024 Lactic Acid,Sep Wbld 7.4 mmol/L High 0.5-1.9 [facility] Comment on above: Performed By: #### B MPX, CDP, SRAVANTHI, MG, LACDS ####[facility] [address] [place] [address] Lab Director: Sarath Olivera MD Lactic Acidon 01-06-2024 Lactic Acid,Whole Bl 2.8 mmol/L High 0.7-2.1 [facility] Comment on above: Performed By: #### D AU, UAMIC #### [facility] [address] [place] [address] Boat [employer] Operator: Sarath Olivera MD Lactic Acid,Whole Bl 1.8 mmol/L Normal 0.7-2.1 [facility] Comment on above: Performed By: #### I OCAL, LACTIC, OHP ####[facility] [address] [place] [address] Lab Director: Sarath Olivera MD Lactic Acid (POC)on 01-06-20 24 Lactate [Moles/Vol] 1.3 mmol/L Normal 0.56-1.39 [facility] Lactate [Moles/Vol] 1.5 mmol/L High 0.56-1.39 [facility] Lactate [Moles/Vol] 1.7 mmol/L High 0.56-1.39 [facility] Lactate [Moles/Vol] 7.2 mmol/L High 0.56-1.39 [facility] Liver Profileon 01-06-2024 Albumin [Mass/Vol] 3.0 g/dL Low 3.5-5.2 [facility] Comment on above: Performed By: #### L IVP, VD25, TROPI, PT ####[facility] [address] [place] [address])[phone] Director: Sarath Olivera MD Albumin/Glob Ratio 2.0 Normal 1.0-2.5 [facility] Comment on above: Performed By: #### L IVP, VD25, TROPI, PT ####[facility] [address] [place] [address] [phone] Director: Sarath Olivera MD Alkaline Phos 61 U/L Normal 35-104 [facility] Comment on above: Performed By: #### L IVP, VD25, TROPI, PT ####[facility] [address] [place] [address])[phone] Director: Sarath Olivera MD ALT [Catalytic activity/Vol] 19 U/L Normal 10-35 [facility] Comment on above: Performed By: #### L IVP, VD25, TROPI, PT ####[facility] [address] [place] [address])[phone] Director: Sarath Olivera MD AST [Catalytic activity/Vol] 62 U/L High 10-35 [facility] Comment on above: Performed By: #### L IVP, VD25, TROPI, PT ####[address] [address])[phone] Director: Sarath Olivera MD Bilirubin [Mass/Vol] 0.3 mg/dL Normal 0.00-1.20 [facility] Comment on above: Performed By: #### L IVP, VD25, TROPI, PT ####[facility] [address] [place] [address] [phone])[phone] Director: Sarath Olivera MD Bilirubin, Indirect Can not be calculated Normal 0.0-1 .0 [facility] Comment on above: Performed By: #### L IVP, VD25, TROPI, PT ####[facility] [address] [place] [address] Lab Director: Sarath Olivera MD Bilirubin.indirect [Mass/Vol] mg/dL Normal 0.00-0.30 [facility] Comment on above: Performed By: #### L IVP, VD25, TROPI, PT ####[facility] [address] [place], [place] [address])[phone] Director: Sarath Olivera MD Globulin (S) [Mass/Vol] 1.8 g/dL Normal [facility] Comment on above: Performed By: #### L IVP, VD25, TROPI, PT ####[facility] [address] [place], [place] [address])[phone] Director: Sarath Olivera MD Protein [Mass/Vol] 4.8 g/dL Low 6.6-8.7 [facility] Comment on above: Performed By: #### L IVP, VD25, TROPI, PT ####[facility] [address] [place], [place] [address])[phone] Director: Sarath Olivera MD Magnesiumon 01-06-2024 Magnesium [Mass/Vol] 1.9 mg/dL Normal 1.6-2.4 [facility] Comment on above: Performed By: #### P HO, MG, PT, CDP, IOCAL, BMP ####[facility] [address] [place], [place] [address])[phone] Director: Sarath Olivera MD Magnesium [Mass/Vol] 1.6 mg/dL Normal 1.6-2.4 [facility] Comment on above: Performed By: #### C DP, SRAVANTHI, MG, BMPX, PT ####[facility] [address] [place], [place] [phone] Director: Sarath Olivera MD Magnesium [Mass/Vol] 1.8 mg/dL Normal 1.6-2.4 [facility] Comment on above: Result Comment: QA F LAGS AND/OR RANGES MODIFIED BY DEMOGRAPHIC UPDATE ON 01/05 AT 0131 Performed By: #### B MPX, CDP, SRAVANTHI, MG, LACDS ####[address] [address] Lab Director: Sarath Olivera MD Open Heart Panelon 4 Jerrell Test INFORMATION NOT PROVIDED [facility] Comment on above: Performed By: #### Ashley AU, UAMIC #### [address] [address] [employer] Operator: Sarath Olivera MD Body Temp. 37.0 Normal [facility] Comment on above: Performed By: #### Ashley CELESTE, UAMIC #### [address] [address] [employer] Operator: Sarath Olivera MD Carboxy Hgb 0.8 % Normal 0-5 [facility] Comment on above: Result Comment: Reference Range: Non-Smokers 0-2% Average Smoker 2-4% Heavy Smoker <10% Performed By: #### Ashley CELESTE, UAMIC #### [address] [address] [employer] Operator: Sarath Olivera MD Chloride [Moles/Vol] 116 mmol/L High 98-110 [facility] Comment on above: Performed By: #### Ashley CELESTE, UAMIC #### [address] [address] [employer] Operator: Sarath Olivera MD FIO2 50% Normal [facility] Comment on above: Performed By: #### Ashley AU, UAMIC #### [facility] [address] [place] [address] [employer] Operator: Sarath Olivera MD Glucose [Mass/Vol] 138 mg/dL High 65-105 [facility] Comment on above: Performed By: #### D AU, UAMIC #### [email or web address] [address] [place] [address] [employer] Operator: Sarath Olivera MD HCO3 (Bld) [Moles/Vol] 19.3 mmol/L Low 22-27 [facility] Comment on above: Performed By: #### Ashley AU, UAMIC #### [facility] [address] [place] [address] [employer] Operator: Sarath Olivera MD Hematocrit (Bld) [Volume fraction] 25.5 % Low 36.3-47.1 [facility] Comment on above: Performed By: #### Ashley CELESTE, UAMIC #### [email or web address] [address] [place] [address] [employer] Operator: Sarath Olivera MD Hemoglobin (Bld) [Mass/Vol] 8.2 g/dL Low 11.9-15.1 [facility] Comment on above: Performed By: #### Ashley AU, UAMIC #### [facility] [address] [place] [address] [employer] Operator: Sarath Olivera MD Negative Base Excess 6.1 mmol/L High 0.0-2.0 [facility] Comment on above: Performed By: #### Ashley CELESTE, UAMIC #### [email or web address] [address] [place] [address] [employer] Operator: Sarath Olivera MD Oxygen (Bld) [Partial pressure] 106.0 mm[Hg] High 75-95 [facility] Comment on above: Performed By: #### Ashley CELESTE, UAMIC #### [email or web address] [address] [place] [address] [employer] Operator: Sarath Olivera MD Oxygen saturation in Blood 97.7 % Normal 94-100 [facility] Comment on above: Performed By: #### Ashley AU, UAMIC #### [facility] [address] [place] [address] [employer] Operator: Sarath Olivera MD pCO2 40.0 mmHg Normal 32-45 [facility] Comment on above: Performed By: #### Ashley CELESTE, UAMIC #### [facility] [address] [place] [address] [employer] Operator: Sarath Olivera MD pH (Bld) 7.304 [pH] Low 7.350-7.450 [facility] Comment on above: Performed By: #### Ashley CELESTE UAMIC #### [facility] [address] [place] [address] [employer] Operator: Sarath Olivera MD Potassium [Moles/Vol] 4.6 mmol/L Normal 3.6-5.0 [facility] Comment on above: Performed By: #### Ashley CELESTE UAMIC #### [address] [address] [employer] Operator: Sarath Olivera MD Sodium [Moles/Vol] 142 mmol/L Normal 136-145 [facility] Comment on above: Performed By: #### Ashley CELESTE UAMIC #### [facility] [address] [place] [address] [employer] Operator: Sarath Olivera MD Jerrell Test INFORMATION NOT PROVIDED [facility] Comment on above: Performed By: #### I OCAL, LACTIC, OHP ####[facility] [address] [place] [address] Lab Director: Sarath Olivera MD Body Temp. 36.0 Normal [facility] Comment on above: Performed By: #### I OCAL, LACTIC, OHP ####[facility] [address] [place] [address] Lab Director: Sarath Olivera MD Carboxy Hgb 1.6 % Normal 0-5 [facility] Comment on above: Result Comment: Reference Range: Non-Smokers 0-2% Average Smoker 2-4% Heavy Smoker <10% Performed By: #### I OCAL, LACTIC, OHP ####[facility] [address] [place] [address] Lab Director: Sarath Olivera MD Chloride [Moles/Vol] 115 mmol/L High 98-110 [facility] Comment on above: Performed By: #### I OCAL, LACTIC, OHP ####[facility] [address] [place], [place] [phone])[phone] Director: Sarath Olivera MD FIO2 70% Normal [facility] Comment on above: Performed By: #### I OCAL, LACTIC, OHP ####[facility] [address] [place], [place] [phone])[phone] Director: Sarath Olivera MD Glucose [Mass/Vol] 138 mg/dL High 65-105 [facility] Comment on above: Performed By: #### I OCAL, LACTIC, OHP ####[facility] [address] [place], [place] [address])[phone] Director: Sarath Olivera MD HCO3 (Bld) [Moles/Vol] 17.8 mmol/L Low 22-27 [facility] Comment on above: Performed By: #### I OCAL, LACTIC, OHP ####[facility] [address] [place] [address] Lab Director: Sarath Olivera MD Hematocrit (Bld) [Volume fraction] 25.6 % Low 36.3-47.1 [facility] Comment on above: Performed By: #### I OCAL, LACTIC, OHP ####[facility] [address] [place], [place] [address])[phone] Director: Sarath Olivera MD Hemoglobin (Bld) [Mass/Vol] 8.2 g/dL Low 11.9-15.1 [facility] Comment on above: Performed By: #### I OCAL, LACTIC, OHP ####[facility] [address] [place], [place] [phone])[phone] Director: Sarath Olivera MD Negative Base Excess 8.4 mmol/L High 0.0-2.0 [facility] Comment on above: Performed By: #### I OCAL, LACTIC, OHP ####[facility] [address] [place], [place] [phone])[phone] Director: Sarath Olivera MD Oxygen (Bld) [Partial pressure] 102.0 mm[Hg] High 75-95 [facility] Comment on above: Performed By: #### I OCAL, LACTIC, OHP ####[facility] [address]ub[address] [place], [place] [phone] Director: Sarath Olivera MD Oxygen saturation in Blood 96.8 % Normal 94-100 [facility] Comment on above: Performed By: #### I OCAL, LACTIC, OHP ####[facility] [address] [place], [place] [phone])[phone] Director: Sarath Olivera MD pCO2 42.6 mmHg Normal 32-45 [facility] Comment on above: Performed By: #### I OCAL, LACTIC, OHP ####[facility] [address] [place], [place] [phone])[phone] Director: Sarath Olivera MD pH (Bld) 7.246 [pH] Low 7.350-7.450 [facility] Comment on above: Performed By: #### I OCAL, LACTIC, OHP ####[facility] [address] [place], [place] [phone])[phone] Director: Sarath Olivera MD Potassium [Moles/Vol] 4.5 mmol/L Normal 3.6-5.0 [facility] Comment on above: Performed By: #### I OCAL, LACTIC, OHP ####[facility] [address] [place], [place] [phone])[phone] Director: Sarath Olivera MD Sodium [Moles/Vol] 140 mmol/L Normal 136-145 [facility] Comment on above: Performed By: #### I OCAL, LACTIC, OHP ####[facility] [address] [place] [address] Lab Director: Sarath Olivera MD PTon 01-06-2024 INR Coag (PPP) [Relative time] 1.4 {INR} Normal [facility] Comment on above: Result Comment: Therapeutic Range: Moderate Anticoagulant Intensity: INR = 2.0-3.0 High Anticoagulant Intensity: INR = 2.5-3.5 Performed By: #### P HO, MG, PT, CDP, IOCAL, BMP ####[facility] [address] [place], [place] [address])[phone] Director: Sarath Olivera MD PT Coag (PPP) [Time] 17.3 s High 11.7-14.9 [facility] Comment on above: Performed By: #### P HO, MG, PT, CDP, IOCAL, BMP ####[facility] [address] [place], [place] [address])[phone] Director: Sarath Olivera MD INR Coag (PPP) [Relative time] 1.6 {INR} Normal [facility] Comment on above: Result Comment: Therapeutic Range: Moderate Anticoagulant Intensity: INR = 2.0-3.0 High Anticoagulant Intensity: INR = 2.5-3.5 Performed By: #### L IVP, VD25, TROPI, PT ####[facility] [address] [place], [place] [phone])[phone] Director: Sarath Olivera MD PT Coag (PPP) [Time] 18.4 s High 11.7-14.9 [facility] Comment on above: Performed By: #### L IVP, VD25, TROPI, PT ####[facility] [address] [place], [place] [address])[phone] Director: Sarath Olivera MD INR Coag (PPP) [Relative time] 1.5 {INR} Normal [facility] Comment on above: Result Comment: Therapeutic Range: Moderate Anticoagulant Intensity: INR = 2.0-3.0 High Anticoagulant Intensity: INR = 2.5-3.5 Performed By: #### C DP, SRAVANTHI, MG, BMPX, PT ####[facility] [address] [place], [place] [address])[phone] Director: Sarath Olivera MD PT Coag (PPP) [Time] 17.8 s High 11.7-14.9 [facility] Comment on above: Performed By: #### C DP, SRAVANTHI, MG, BMPX, PT ####[facility] [address] [place], [place] [address])[phone] Director: Sarath Olivera MD Phosphorus, Inorg.on 024 Phosphorus, Inorg. 3.2 mg/dL Normal 2.5-4.5 [facility] Comment on above: Performed By: #### P HO, MG, PT, CDP, IOCAL, BMP ####[facility] [address] [place], [place] [address])[phone] Director: Sarath Olivera MD Phosphorus, Inorg. 4.7 mg/dL High 2.5-4.5 [facility] Comment on above: Performed By: #### C DP, SRAVANTHI, MG, BMPX, PT ####[facility] [address] [place], [place] [address])[phone] Director: Sarath Olivera MD Phosphorus, Inorg. 4.7 mg/dL High 2.5-4.5 [facility] Comment on above: Performed By: #### B MPX, CDP, SRAVANTHI, MG, LACDS ####[facility] [address] [place], [place] [address])[phone] Director: Sarath Olivera MD Sodium, Random Uron 01-06-20 24 Sodium (U) [Moles/Vol] 25 mmol/L Normal [facility] Comment on above: Result Comment: No n ormal range established. Performed By: #### D AU, URCRE, URNA ####[facility] [address] [place], [place] [id number] Lab Director: Sarath Olivera MD TSH w/reflex to FT4on 2023 Thyroid Stim. Horm. 3.13 uIU/mL Normal 0.27-4.20 [facility] Comment on above: Performed By: #### V D25, HH, GLYHGB, TSHX, FT4, ALB ####[facility] [address] [place] [address] Lab Director: Sarath Olivera MD Thyroxine, Freeon 01-06-2024 Thyroxine, Free 0.9 ng/dL Low 0.92-1.68 [facility] Comment on above: Performed By: #### V D25, HH, GLYHGB, TSHX, FT4, ALB ####[facility] [address] [place] [address] Lab Director: Sarath Olivera MD Troponinon 01-06-2024 Troponin, High Sens 114 ng/L Critically high 0-14 [facility] Comment on above: Result Comment: High Sensitivity Troponin values cannot be compared with other Troponin methodologies. Performed By: #### L IVP, VD25, TROPI, PT ####[facility] [address] [place] [address] Lab Director: Sarath Olivera MD Type + Screenon 01-06-2024 Type + Screen Sample Expiration 01/08/2024,8499 Arm Band Number [id number] ABO/Rh(D) O POSITIVE Antibody Screen NEGATIVE Unit Number [id number] Blood Component Type Leukocyte Reduced Red Cell Unit Division 00 Status of Unit TRANSFUSED Transfusion Status OK TO TRANSFUSE Crossmatch Result COMPATIBLE Unit Number [id number] Blood Component Type Leukocyte Reduced Red Cell Unit Division 00 Status of Unit TRANSFUSED Transfusion Status OK TO TRANSFUSE Crossmatch Result COMPATIBLE Normal [facility] Comment on above: Performed By: #### T YS ####[address] [address] Lab Director: Sarath Olivera MD Vitamin B12on 01-06-2024 Cobalamin (Vitamin B12) [Mass/Vol] 253 pg/mL Normal 232-1245 [facility] Comment on above: Performed By: #### E RTPF, GHTEG, B12 ####[address] [address] Lab Director: Sarath Olivera MD Vitamin D 25 OHon 01-06-2024 Vitamin D 25 OH 34.7 ng/mL Normal 30.0-100.0 [facility] Comment on above: Result Comment: Reference Range: Vitamin D status Range Deficiency <20 ng/mL Mild Deficiency 20-30 ng/mL Sufficiency 30-100 ng/mL Toxicity >100 ng/mL Performed By: #### V D25, HH, GLYHGB, TSHX, FT4, ALB ####[address] [address] lab Director: Sarath Olivera MD Vitamin D 25 OH 34.3 ng/mL Normal 30.0-100.0 [facility] Comment on above: Result Comment: Reference Range: Vitamin D status Range Deficiency <20 ng/mL Mild Deficiency 20-30 ng/mL Sufficiency 30-100 ng/mL Toxicity >100 ng/mL Performed By: #### L IVP, VD25, TROPI, PT ####[address] [address] Lab Director: Sarath Olivera MD XR CHEST PORTABLEon 01-06-20 24 XR CHEST PORTABLE EXAMINATION: ONE XRAY VIEW OF THE CHEST 01/06/2024 9:32 pm COMPARISON: January 06, 2024 HISTORY: ORDERING SYSTEM PROVIDED HISTORY: intubated TECHNOLOGIST PROVIDED HISTORY: intubated FINDINGS: There is mild cardiomegaly. Pulmonary venous congestion is seen. Perihilar pulmonary consolidation is present. No pneumothorax. Endotracheal tube tip terminates in the midthoracic trachea. Feeding tube terminates within the proximal stomach. Central line terminates in the SVC or junction. There is mild left-sided pleural effusion. Left humeral head fracture is seen. IMPRESSION: 1. Cardiomegaly with pulmonary venous congestion. 2. Perihilar pulmonary consolidation. 3. Mild left-sided pleural effusion. 4. Lines and tubes as above. Interpreted by: Chevy Parra MD Signed by: Chevy Parra MD 01/06/24 Final result Normal [facility] XR CHEST PORTABLE EXAMINATION: ONE XRAY VIEW OF THE CHEST 01/06/2024 4:23 am COMPARISON: January 05, 2024 HISTORY: ORDERING SYSTEM PROVIDED HISTORY: pneumo hemothorax TECHNOLOGIST PROVIDED HISTORY: pneumo hemothorax FINDINGS: The cardiomediastinal silhouette is enlarged, stable. Right-sided central venous catheter extends into the right atrium. Mild congestive changes are present. Left-sided pleural effusion with trace left apical pneumothorax. Worsening atelectasis or contusion at the left lung base. Stable left-sided rib fractures. IMPRESSION: 1. Left-sided pleural effusion with trace left apical pneumothorax. 2. Worsening atelectasis or contusion at the left lung base. 3. Cardiomegaly. Mild congestive changes. Interpreted by: Concepción Godoy MD Signed by: Concepción Godoy MD 01/06/24 Final result Normal [facility] XR FEMUR RIGHT (MIN 2 VIEWS) on 01-06-2024 XR FEMUR RIGHT (MIN 2 VIEWS) EXAMINATION: 4 XRAY VIEWS OF THE RIGHT FEMUR 01/06/2024 9:32 pm COMPARISON: None. HISTORY: ORDERING SYSTEM PROVIDED HISTORY: S/p IMN. Please capture all hardware and full length of femur. To be completed in PACU TECHNOLOGIST PROVIDED HISTORY: S/p IMN. Please capture all hardware and full length of femur. To be completed in PACU FINDINGS: The joints are normal in alignment. Internal fixation hardware is seen in-situ of MR fixating the humeral diaphysis fracture. The alignment has improved following internal fixation. Soft tissue gas is seen. No unexpected radiopaque foreign bodies are seen. IMPRESSION: Internal fixation hardware fixating the humeral diaphysis fracture with improved alignment. Interpreted by: Chevy Parra MD Signed by: Chevy Parra MD 01/06/24 Final result Normal [facility] XR SHOULDER LEFT (MIN 2 VIEW S)on 01-06-2024 XR SHOULDER LEFT (MIN 2 VIEWS) EXAMINATION: 3 XRAY VIEWS OF THE LEFT SHOULDER 01/06/2024 9:32 pm COMPARISON: None. HISTORY: ORDERING SYSTEM PROVIDED HISTORY: s/p closed treatment TECHNOLOGIST PROVIDED HISTORY: s/p closed treatment FINDINGS: Comminuted fracture of the proximal humerus is seen, with similar alignment compared to prior radiograph. Joint is normal in alignment. Endotracheal tube terminates in the lower thoracic trachea. Central line, feeding tube are optimal inspiration. There is mild left-sided pleural effusion. Left-sided rib fractures are seen. IMPRESSION: 1. Comminuted fracture of the proximal humerus with similar alignment compared to prior radiograph. 2. Mild left-sided pleural effusion. Interpreted by: Chevy Parra MD Signed by: Chevy Parra MD 01/06/24 Final result Normal [facility] Basic Metabolic Profon 01-04 Anion gap [Moles/Vol] 16 mmol/L Normal 9-16 [facility] Comment on above: Performed By: #### ESTEFANÍA HENDRICKS, BMP ####[facility] [address] [place] [address] Lab Director: Sarath Olivera MD Calcium [Mass/Vol] 6.3 mg/dL Low 8.6-10.4 [facility] Comment on above: Performed By: #### Andrés SIMON CK, BMP ####[facility] [address] [place] [address] lab Director: Sarath Olivera MD Chloride [Moles/Vol] 115 mmol/L High 98-107 [facility] Comment on above: Performed By: #### Andrés SIMON CK, BMP ####[facility] [address] [place] [address] lab Director: Sarath Olivera MD CO2 [Moles/Vol] 13 mmol/L Low 20-31 [facility] Comment on above: Performed By: #### Andrés SIMON CK, BMP ####[facility] [address] [place] [address] Lab Director: Sarath Olivera MD Creatinine [Mass/Vol] 1.3 mg/dL High 0.50-0.90 [facility] Comment on above: Performed By: #### M AURORA CK, BMP ####[address] [address] Lab Director: Sarath Olivera MD GFR/1.73 sq M.predicted among non-blacks MDRD (S/P/Bld) [Vol rate/Area] 29 mL/min/{1.73_m2} Low >60 [facility] Comment on above: Result Comment: These results are not intended for use in patients <18 years of age. eGFR results are calculated without a race factor using the 2020 CKD-EPI equation. Careful clinical correlation is recommended, particularly when comparing to results calculated using previous equations. The CKD-EPI equation is less accurate in patients with extremes of muscle mass, extra-renal metabolism of creatine, excessive creatine ingestion, or following therapy that affects renal tubular secretion. Performed By: #### ESTEFANÍA HENDRICKS, BMP ####[facility] [address] [place] [address] Lab Director: Sarath Olivera MD Glucose [Mass/Vol] 174 mg/dL High 74-99 [facility] Comment on above: Performed By: #### Andrés SIMON CK, BMP ####[facility] [address] [place] [address] Lab Director: Sarath Olivera MD Potassium [Moles/Vol] 3.4 mmol/L Low 3.7-5.3 [facility] Comment on above: Result Comment: SPEC IMEN SLIGHTLY HEMOLYZED, RESULTS MAY BE ADVERSELY AFFECTED. Performed By: #### M AURORA CK, BMP ####[facility] [address] [place] [address] Lab Director: Sarath Olivera MD Sodium [Moles/Vol] 144 mmol/L Normal 136-145 [facility] Comment on above: Performed By: #### Andrés SIMON CK, BMP ####[facility] [address] [place] [address] [phone] Director: Sarath Olivera MD Urea nitrogen [Mass/Vol] 23 mg/dL Normal 8-23 [facility] Comment on above: Performed By: #### Andrés SIMON CK, BMP ####[facility] [address] [place] [address] [phone] Director: Sarath Olivera MD CBCon 01-05-2024 Erythrocyte distribution width (RBC) [Ratio] 14.4 % Normal 11.8-14.4 [facility] Comment on above: Performed By: #### Ashley CELESTE UAMIC #### [address] [address] [employer]: Sarath Olivera MD Hematocrit (Bld) [Volume fraction] 31.8 % Low 36.3-47.1 [facility] Comment on above: Performed By: #### Ashley CELESTE UAMIC #### [address] [address] [employer] Operator: Sarath Olivera MD Hemoglobin (Bld) [Mass/Vol] 9.9 g/dL Low 11.9-15.1 [facility] Comment on above: Performed By: #### Ashley CELESTE UAMIC #### [facility] [address] [place] [address] [employer]: Sarath Olivera MD MCH (RBC) [Entitic mass] 31.2 pg Normal 25.2-33.5 [facility] Comment on above: Performed By: #### Ashley CELESTE, UAMIC #### [facility] [address] [place] [address] [employer]: Sarath Olivera MD MCHC (RBC) [Mass/Vol] 31.1 g/dL Normal 28.4-34.8 [facility] Comment on above: Performed By: #### Ashley CELESTE, UAMIC #### [address] [address] [employer]: Sarath Olivera MD MCV (RBC) [Entitic vol] 100.3 fL Normal 82.6-102.9 [facility] Comment on above: Performed By: #### Ashley CELESTE, UAMIC #### [address] [address] [employer]: Sarath Olivera MD NRBC Automated 0.0 per 100 WBC Normal 0.0 [facility] Comment on above: Performed By: #### Ashley CELESTE UAMIC #### [address] [address] [employer]: Sarath Olivera MD Platelet mean volume (Bld) [Entitic vol] 12.8 fL Normal 8.1-13.5 [facility] Comment on above: Performed By: #### Ashley CELESTE UAMIC #### [address] [address] [employer]: Sarath Olivera MD Platelets (Bld) [#/Vol] 146 10*3/uL Normal 138-453 [facility] Comment on above: Performed By: #### Ashley CELESTE UAMIC #### [address] [address] [employer]: Sarath Olivera MD RBC (Bld) [#/Vol] 3.17 10*6/uL Low 3.95-5.11 [facility] Comment on above: Performed By: #### Ashley CELESTE, UAMIC #### [address] [address] [employer] Operator: Sarath Olivera MD WBC (Bld) [#/Vol] 22.0 10*3/uL High 3.5-11.3 [facility] Comment on above: Performed By: #### D AU, UAMIC #### [facility] [place] [phone] [employer] Operator: Sarath Olivera MD CT CHEST ABDOMEN PELVIS WO C Sergio 01-05-2024 CT CHEST ABDOMEN PELVIS WO CONTRAST EXAMINATION: CT OF THE CHEST, ABDOMEN, AND PELVIS WITHOUT CONTRAST; CT OF THE LUMBAR SPINE WITHOUT CONTRAST; CT OF THE THORACIC SPINE WITHOUT CONTRAST 01/05/2024 5:09 pm TECHNIQUE: CT of the chest, abdomen and pelvis was performed without the administration of intravenous contrast. Multiplanar reformatted images are provided for review. Automated exposure control, iterative reconstruction, and/or weight based adjustment of the mA/kV was utilized to reduce the radiation dose to as low as reasonably achievable.; CT of the lumbar spine was performed without the administration of intravenous contrast. Multiplanar reformatted images are provided for review. Adjustment of mA and/or kV according to patient size was utilized. Automated exposure control, iterative reconstruction, and/or weight based adjustment of the mA/kV was utilized to reduce the radiation dose to as low as reasonably achievable.; CT of the thoracic spine was performed without the administration of intravenous contrast. Multiplanar reformatted images are provided for review. Automated exposure control, iterative reconstruction, and/or weight based adjustment of the mA/kV was utilized to reduce the radiation dose to as low as reasonably achievable. COMPARISON: None HISTORY: ORDERING SYSTEM PROVIDED HISTORY: trauma TECHNOLOGIST PROVIDED HISTORY: trauma Decision Support Exception - unselect if not a suspected or confirmed emergency medical condition->Emergency Medical Condition (MA) Reason for Exam: trauma FINDINGS: Chest: Mediastinum: There are a few less than 1 cm mediastinal lymph nodes but no obvious lymphadenopathy. The thoracic aorta is not aneurysmal. The heart size is enlarged. Lungs/pleura: The lung parenchyma demonstrates left lower lobe consolidation. There are scattered calcified granulomas. There is right basilar atelectasis. There is a tiny left pneumothorax. There is a small left hemothorax. Soft Tissues/Bones: There is a comminuted fracture involving the surgical neck of the humerus with avulsion of the greater tuberosity. There are minimally displaced fractures involving the left lateral 4th through 7th ribs. There is also minimally displaced posterior left 6th rib fracture. There are displaced left posterior 7th, 8th and 9th rib fractures. There is also a displaced fracture involving the left 8th posterolateral rib. There is subcutaneous emphysema noted at the fracture sites. Abdomen/Pelvis: Organs: The liver, gallbladder, pancreas and adrenal glands appear unremarkable for a non contrasted study. The kidneys demonstrate no calcifications. There is a 5 cm cyst involving the right kidney. No hydronephrosis is seen. There is a suggestion of a perisplenic hematoma GI/Bowel: Evaluation of the bowel is limited as no enteric contrast was given. No dilated loops of bowel are seen. 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 Pelvis: There is a small amount of high density pelvic fluid. Peritoneum/Retroperiton eum: The abdominal aorta is not aneurysmal. There are shotty mesenteric and retroperitoneal lymph nodes but no retroperitoneal or mesenteric lymphadenopathy is seen. There is stranding within the left paracolic gutter. Bones/Soft Tissues: No acute bony abnormalities are noted. There are shotty inguinal lymph nodes noted. CT thoracic and lumbar spine: Bones/alignment: The alignment of the thoracic and lumbar spine is within normal limits. No acute fractures or dislocations are seen. 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 Paraspinal soft tissues: No paraspinal masses are seen. IMPRESSION: 1. Multiple left-sided rib fractures with a tiny left pneumothorax and small left hemothorax. 2. Left lower lobe consolidation likely representing pulmonary contusion. 3. Comminuted fracture involving the surgical neck of the left humerus with avulsion of the greater tuberosity. 4. Question perisplenic hematoma. I would suggest follow-up CT scan with intravenous contrast for further evaluation. 5. Small amount of high density pelvic fluid likely blood products. 6. No acute osseous abnormality involving the thoracic or lumbar spine. Interpreted by: Amol Martínez MD Signed by: Amol Martínez MD 01/05/24 Final result Normal [facility] CT LUMBAR SPINE BONY RECONST RUCTIONon 01-05-2024 CT LUMBAR SPINE BONY RECONSTRUCTION EXAMINATION: CT OF THE CHEST, ABDOMEN, AND PELVIS WITHOUT CONTRAST; CT OF THE LUMBAR SPINE WITHOUT CONTRAST; CT OF THE THORACIC SPINE WITHOUT CONTRAST 01/05/2024 5:09 pm TECHNIQUE: CT of the chest, abdomen and pelvis was performed without the administration of intravenous contrast. Multiplanar reformatted images are provided for review. Automated exposure control, iterative reconstruction, and/or weight based adjustment of the mA/kV was utilized to reduce the radiation dose to as low as reasonably achievable.; CT of the lumbar spine was performed without the administration of intravenous contrast. Multiplanar reformatted images are provided for review. Adjustment of mA and/or kV according to patient size was utilized. Automated exposure control, iterative reconstruction, and/or weight based adjustment of the mA/kV was utilized to reduce the radiation dose to as low as reasonably achievable.; CT of the thoracic spine was performed without the administration of intravenous contrast. Multiplanar reformatted images are provided for review. Automated exposure control, iterative reconstruction, and/or weight based adjustment of the mA/kV was utilized to reduce the radiation dose to as low as reasonably achievable. COMPARISON: None HISTORY: ORDERING SYSTEM PROVIDED HISTORY: trauma TECHNOLOGIST PROVIDED HISTORY: trauma Decision Support Exception - unselect if not a suspected or confirmed emergency medical condition->Emergency Medical Condition (MA) Reason for Exam: trauma FINDINGS: Chest: Mediastinum: There are a few less than 1 cm mediastinal lymph nodes but no obvious lymphadenopathy. The thoracic aorta is not aneurysmal. The heart size is enlarged. Lungs/pleura: The lung parenchyma demonstrates left lower lobe consolidation. There are scattered calcified granulomas. There is right basilar atelectasis. There is a tiny left pneumothorax. There is a small left hemothorax. Soft Tissues/Bones: There is a comminuted fracture involving the surgical neck of the humerus with avulsion of the greater tuberosity. There are minimally displaced fractures involving the left lateral 4th through 7th ribs. There is also minimally displaced posterior left 6th rib fracture. There are displaced left posterior 7th, 8th and 9th rib fractures. There is also a displaced fracture involving the left 8th posterolateral rib. There is subcutaneous emphysema noted at the fracture sites. Abdomen/Pelvis: Organs: The liver, gallbladder, pancreas and adrenal glands appear unremarkable for a non contrasted study. The kidneys demonstrate no calcifications. There is a 5 cm cyst involving the right kidney. No hydronephrosis is seen. There is a suggestion of a perisplenic hematoma GI/Bowel: Evaluation of the bowel is limited as no enteric contrast was given. No dilated loops of bowel are seen. 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 Pelvis: There is a small amount of high density pelvic fluid. Peritoneum/Retroperiton eum: The abdominal aorta is not aneurysmal. There are shotty mesenteric and retroperitoneal lymph nodes but no retroperitoneal or mesenteric lymphadenopathy is seen. There is stranding within the left paracolic gutter. Bones/Soft Tissues: No acute bony abnormalities are noted. There are shotty inguinal lymph nodes noted. CT thoracic and lumbar spine: Bones/alignment: The alignment of the thoracic and lumbar spine is within normal limits. No acute fractures or dislocations are seen. 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 Paraspinal soft tissues: No paraspinal masses are seen. IMPRESSION: 1. Multiple left-sided rib fractures with a tiny left pneumothorax and small left hemothorax. 2. Left lower lobe consolidation likely representing pulmonary contusion. 3. Comminuted fracture involving the surgical neck of the left humerus with avulsion of the greater tuberosity. 4. Question perisplenic hematoma. I would suggest follow-up CT scan with intravenous contrast for further evaluation. 5. Small amount of high density pelvic fluid likely blood products. 6. No acute osseous abnormality involving the thoracic or lumbar spine. Interpreted by: Amol Martínez MD Signed by: Amol Martínez MD 01/05/24 Final result Normal [facility] CT THORACIC SPINE BONY RECON STRUCTIONon 01-05-2024 CT THORACIC SPINE BONY RECONSTRUCTION EXAMINATION: CT OF THE CHEST, ABDOMEN, AND PELVIS WITHOUT CONTRAST; CT OF THE LUMBAR SPINE WITHOUT CONTRAST; CT OF THE THORACIC SPINE WITHOUT CONTRAST 01/05/2024 5:09 pm TECHNIQUE: CT of the chest, abdomen and pelvis was performed without the administration of intravenous contrast. Multiplanar reformatted images are provided for review. Automated exposure control, iterative reconstruction, and/or weight based adjustment of the mA/kV was utilized to reduce the radiation dose to as low as reasonably achievable.; CT of the lumbar spine was performed without the administration of intravenous contrast. Multiplanar reformatted images are provided for review. Adjustment of mA and/or kV according to patient size was utilized. Automated exposure control, iterative reconstruction, and/or weight based adjustment of the mA/kV was utilized to reduce the radiation dose to as low as reasonably achievable.; CT of the thoracic spine was performed without the administration of intravenous contrast. Multiplanar reformatted images are provided for review. Automated exposure control, iterative reconstruction, and/or weight based adjustment of the mA/kV was utilized to reduce the radiation dose to as low as reasonably achievable. COMPARISON: None HISTORY: ORDERING SYSTEM PROVIDED HISTORY: trauma TECHNOLOGIST PROVIDED HISTORY: trauma Decision Support Exception - unselect if not a suspected or confirmed emergency medical condition->Emergency Medical Condition (MA) Reason for Exam: trauma FINDINGS: Chest: Mediastinum: There are a few less than 1 cm mediastinal lymph nodes but no obvious lymphadenopathy. The thoracic aorta is not aneurysmal. The heart size is enlarged. Lungs/pleura: The lung parenchyma demonstrates left lower lobe consolidation. There are scattered calcified granulomas. There is right basilar atelectasis. There is a tiny left pneumothorax. There is a small left hemothorax. Soft Tissues/Bones: There is a comminuted fracture involving the surgical neck of the humerus with avulsion of the greater tuberosity. There are minimally displaced fractures involving the left lateral 4th through 7th ribs. There is also minimally displaced posterior left 6th rib fracture. There are displaced left posterior 7th, 8th and 9th rib fractures. There is also a displaced fracture involving the left 8th posterolateral rib. There is subcutaneous emphysema noted at the fracture sites. Abdomen/Pelvis: Organs: The liver, gallbladder, pancreas and adrenal glands appear unremarkable for a non contrasted study. The kidneys demonstrate no calcifications. There is a 5 cm cyst involving the right kidney. No hydronephrosis is seen. There is a suggestion of a perisplenic hematoma GI/Bowel: Evaluation of the bowel is limited as no enteric contrast was given. No dilated loops of bowel are seen. 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 Pelvis: There is a small amount of high density pelvic fluid. Peritoneum/Retroperiton eum: The abdominal aorta is not aneurysmal. There are shotty mesenteric and retroperitoneal lymph nodes but no retroperitoneal or mesenteric lymphadenopathy is seen. There is stranding within the left paracolic gutter. Bones/Soft Tissues: No acute bony abnormalities are noted. There are shotty inguinal lymph nodes noted. CT thoracic and lumbar spine: Bones/alignment: The alignment of the thoracic and lumbar spine is within normal limits. No acute fractures or dislocations are seen. 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 Paraspinal soft tissues: No paraspinal masses are seen. IMPRESSION: 1. Multiple left-sided rib fractures with a tiny left pneumothorax and small left hemothorax. 2. Left lower lobe consolidation likely representing pulmonary contusion. 3. Comminuted fracture involving the surgical neck of the left humerus with avulsion of the greater tuberosity. 4. Question perisplenic hematoma. I would suggest follow-up CT scan with intravenous contrast for further evaluation. 5. Small amount of high density pelvic fluid likely blood products. 6. No acute osseous abnormality involving the thoracic or lumbar spine. Interpreted by: Amol Martínez MD Signed by: Amol Martínez MD 01/05/24 Final result Normal [facility] Creatine Kinaseon 01-05-2024 CK [Catalytic activity/Vol] 725 U/L High 26-192 [facility] Comment on above: Performed By: #### M YO, CK, BMP ####[facility] [address] [place] [phone] Lab Director: Sarath Olivera MD Drug Scr, Abuse, Uron 2023 Fentanyl, Urine Sent to reference laboratory. Separate report to follow. Abnormal NEG [facility] Comment on above: Result Comment: OZZIE CHRISTINE NOTIFIED (Positive cutoff 5 ng/ml) Performed By: #### Ashley CELESTE UAMIC #### [facility] [address] [place] [address] [phone] [employer] Operator: Sarath Olivera MD Oxycodone, Urine Sent to reference laboratory. Separate report to follow. Abnormal NEG [facility] Comment on above: Result Comment: OZZIE CHRISTINE NOTIFIED (Positive cutoff 100 ng/mL) Performed By: #### Ashley AU, UAMIC #### [facility] [address] [place], [place] [id number] [employer] Operator: Sarath Olivera MD Interpretive Info Assay provides rapid clinical screening only. Presumptive positive results for Normal [facility] Comment on above: Result Comment: lega l purposes should be confirmed by another method. To request confirmation, please call the lab within 7 days of sample submission. Performed By: #### D AU, UAMIC #### [email or web address] [address] [place] [address] [employer] Operator: Sarath Olivera MD Opiate(s), Ur Positive Abnormal NEG [facility] Comment on above: Result Comment: Cuto ff: 300 ng/ml Performed By: #### Ashley AU, UAMIC #### [facility] [address] [place] [address] [employer] Operator: Sarath Olivera MD Amphetamine(s),Ur Negative Normal NEG [facility] Comment on above: Result Comment: Cuto ff: 1000 ng/mL Performed By: #### Ashley AU, UAMIC #### [facility] [address] [place] [phone] [employer] Operator: Sarath Olivera MD Barbiturate(s),Ur Negative Normal NEG [facility] Comment on above: Result Comment: Cuto ff: 200 ng/ml Performed By: #### Ashley AU, UAMIC #### [email or web address] [address] [place] [address] [employer] Operator: Sarath Olivera MD Benzodiazepine(s) Negative Normal NEG [facility] Comment on above: Result Comment: Cuto ff: 200 ng/ml Performed By: #### Ashley AU, UAMIC #### [facility] [address] [place] [address] [employer] Operator: Sarath Olivera MD Cannabinoid(s),Ur Negative Normal NEG [facility] Comment on above: Result Comment: Cuto ff: 50 ng/ml Performed By: #### D AU, UAMIC #### [facility] [address] [place] [phone] [employer] Operator: Sarath Olivera MD Cocaine Metabolite Negative Normal NEG [facility] Comment on above: Result Comment: Cuto ff: 300 ng/ml Performed By: #### D AU, UAMIC #### [facility] [address] [place] [address] [employer] Operator: Sarath Olivera MD Methadone Ql (U) Negative Normal NEG [facility] Comment on above: Result Comment: Cuto ff: 300 ng/ml Performed By: #### Ashley AU, UAMIC #### [email or web address] [address] [place] [address] [employer] Operator: Sarath Olivera MD Phencyclidine, Ur Negative Normal NEG [facility] Comment on above: Result Comment: Cuto ff: 25 ng/ml Performed By: #### Ashley CELESTE, UAMIC #### [facility] [address] [place] [address] [employer] Operator: Sarath Olivera MD Ethanol Alcoholon 01-05-2024 Ethanol [Mass/Vol] mg/dL Normal <10 [facility] Comment on above: Performed By: #### Abel ACTMARILIN ALCB ####[facility] [address] [place] [address] [phone] Director: Sarath Olivera MD Ethanol percent <0.010 Normal <0.010 [facility] Comment on above: Performed By: #### Abel ACTMARILIN ALCB ####[facility] [address] [place], [place] [address])[phone] Director: Sarath Olivera MD Global Hemostasis(TEG 6S)on 01-05-2024 Angle TEG 75.0 deg Normal 63.0-78.0 [facility] Comment on above: Performed By: #### E RTPF GHTEG, B12 ####[facility] [address] [place], [place] [phone] Director: Sarath Olivera MD Fibrinogen, Func TEG 23.0 mm Normal 15.0-32.0 [facility] Comment on above: Performed By: #### E RTPF GHTEG, B12 ####[facility] [address] [place], [place] [phone] Director: Sarath Olivera MD K (Kinetics) TEG 1.1 min Normal 0.8-2.1 [facility] Comment on above: Performed By: #### E RTPFRACHIDTEG, B12 ####[facility] [address] [place], [place] [phone] Director: Sarath Olivera MD MA (Max Clot) TEG 65.4 mm Normal 52.0-69.0 [facility] Comment on above: Performed By: #### E RTPFRACHIDTEG, B12 ####[facility] [address]xcdcus[address] [place], [place] [phone] Director: Sarath Olivera MD MA Rapid TEG 65.2 mm Normal 52.0-70 [facility] Comment on above: Performed By: #### E RTPRACHID OrtizTECachorro, B12 ####[facility] [address]ypblznw[address] [place], [place] [phone] Director: Sarath Olivera MD R TEG w/Hep 4.6 min Normal 4.3-8.3 [facility] Comment on above: Performed By: #### E RTPRACHID OrtizTECachorro, B12 ####[facility] [address]bieajn[address] [place], [place] [phone] Director: Sarath Olivera MD R(Reaction Time) TEG 4.7 min Normal 4.6-9.1 [facility] Comment on above: Performed By: #### E RTPFRACHIDTEG, B12 ####[facility] [address]ibpjnvs[address] [place], [place] [phone] Director: Sarath Olivera MD Lactate, Sepsison 01-05-2024 Lactic Acid,Sep Wbld 7.9 mmol/L High 0.5-1.9 [facility] Comment on above: Performed By: #### L ACDS ####[facility] [address]jmfjff[address] [place], [place] [phone] Director: Sarath Olivera MD Lactic Acidon 01-05-2024 Lactic Acid,Whole Bl 7.0 mmol/L High 0.7-2.1 [facility] Comment on above: Performed By: #### L ACTIC, ALCB ####[facility] [address]lbyx[address] [place] [address] Lab Director: Sarath Olivera MD Myoglobinon 01-05-2024 Myoglobin [Mass/Vol] 3228 ng/mL High 25-58 [facility] Comment on above: Performed By: #### M YO, CK, BMP ####[facility] [address] [place] [address] Lab Director: Sarath Olivera MD PTon 01-05-2024 INR Coag (PPP) [Relative time] 1.4 {INR} Normal [facility] Comment on above: Result Comment: Therapeutic Range: Moderate Anticoagulant Intensity: INR = 2.0-3.0 High Anticoagulant Intensity: INR = 2.5-3.5 Performed By: #### Ashley CELESTE UAMIC #### [facility] [place] [address] Boat [employer] Operator: Sarath Olivera MD PT Coag (PPP) [Time] 16.6 s High 11.7-14.9 [facility] Comment on above: Performed By: #### Ashley CELESTE UAMIC #### [facility] [address] [place] [address] [employer] Operator: Sarath Olivera MD Trauma Profileon 01-05-2024 Anion gap [Moles/Vol] 15 mmol/L Normal 9-16 [facility] Comment on above: Performed By: #### E RTPF, GHTEG, B12 ####[facility] [address] [place] [address] [phone] Director: Sarath Olivera MD Chloride [Moles/Vol] 111 mmol/L High 98-107 [facility] Comment on above: Performed By: #### E RTPF GHTEG, B12 ####[facility] [address]cx[address]fa[address] [place] [address] Lab Director: Sarath Olivera MD CO2 [Moles/Vol] 17 mmol/L Low 20-31 [facility] Comment on above: Performed By: #### E RTPF, GHTEG, B12 ####[facility] [address] [place], [place] [address])[phone] Director: Sarath Olivera MD Creatinine [Mass/Vol] 1.5 mg/dL High 0.50-0.90 [facility] Comment on above: Performed By: #### E RTPAngel GHTEG, B12 ####[facility] [address] [place], [place] [phone] Director: Sarath Olivera MD Ethanol [Mass/Vol] mg/dL Normal <10 [facility] Comment on above: Performed By: #### E RTPF, GHTEG, B12 ####[facility] [address] [place], [place] [phone] Director: Sarath Olivera MD Ethanol percent <0.010 Normal <0.010 [facility] Comment on above: Performed By: #### E RTPAngel, GHTEG, B12 ####[facility] [address] [place], [place] [address])[phone] Director: Sarath Olivera MD GFR/1.73 sq M.predicted among non-blacks MDRD (S/P/Bld) [Vol rate/Area] 23 mL/min/{1.73_m2} Low >60 [facility] Comment on above: Result Comment: These results are not intended for use in patients <18 years of age. eGFR results are calculated without a race factor using the 2020 CKD-EPI equation. Careful clinical correlation is recommended, particularly when comparing to results calculated using previous equations. The CKD-EPI equation is less accurate in patients with extremes of muscle mass, extra-renal metabolism of creatine, excessive creatine ingestion, or following therapy that affects renal tubular secretion. Performed By: #### E RTPAngel GHTEG, B12 ####[facility] [address] [place], [place] [phone] Director: Sarath Olivera MD Glucose [Mass/Vol] 191 mg/dL High 74-99 [facility] Comment on above: Performed By: #### E RTPAngel GHTEG, B12 ####[facility] [address] [place], [place] [phone] Director: Sarath Olivera MD Potassium [Moles/Vol] 3.6 mmol/L Low 3.7-5.3 [facility] Comment on above: Performed By: #### E RTPAngel GHTEG, B12 ####[facility] [address] [place] [address] [phone] Director: Sarath Olivera MD Sodium [Moles/Vol] 143 mmol/L Normal 136-145 [facility] Comment on above: Performed By: #### E RTRACHID WATSONTEG, B12 ####[facility] [address] [place], [place] [phone] Director: Sarath Olivera MD Urea nitrogen [Mass/Vol] 26 mg/dL High 8-23 [facility] Comment on above: Performed By: #### E RTPAngel GHTEG, B12 ####[facility] [address] [place] [address] [phone] Director: Sarath Olivera MD HCG Screen, Blood Negative Normal NEG [facility] Comment on above: Result Comment: Spec imens with hCG levels near the threshold of the test (25 mIU/mL) may give a negative or indeterminate result. In such cases, another test should be performed with a new specimen in 48-72 hours. If early is suspected clinically in this setting, correlation with quantitative serum b-hCG level is suggested. [employer] has confirmed the use of plasma for this test. This has not been cleared or approved by the U.S. Food and Drug Administration. The FDA has determined that such clearance is not necessary. Performed By: #### E FRANCESCA JUNE, B12 ####[facility]jal [address]ipwjnn[address] [place] [address] lab Director: Sarath Olivera MD aPTT Coag (Bld) [Time] 28.7 s Normal 23.0-36.5 [facility] Comment on above: Result Comment: IV Heparin Therapy Range: 66.0-92.0 sec Performed By: #### E FRANCESCA JUNE, B12 ####[facility] [address] [address] lab Director: Sarath Olivera MD INR Coag (PPP) [Relative time] 4.4 {INR} Normal [facility] Comment on above: Result Comment: Therapeutic Range: Moderate Anticoagulant Intensity: INR = 2.0-3.0 High Anticoagulant Intensity: INR = 2.5-3.5 Performed By: #### E FRANCESCA JUNE, B12 ####[facility] CenterCoCubes.comNfftzifiwahq[address] [place] [address] lab Director: Sarath Olivera MD PT Coag (PPP) [Time] 40.5 s High 11.7-14.9 [facility] Comment on above: Performed By: #### E FRANCESCA JUNE, B12 ####[facility] CenterCoCubes.comEwojzjnilboq[address] [place] [address] Lab Director: Sarath Olivera MD Body Temp. 37.0 Normal [facility] Comment on above: Performed By: #### E FRANCESCA JUNE, B12 ####[facility] [address] [place] [address] lab Director: Sarath Olivera MD Carboxy Hgb 2.7 % Normal 0-5 [facility] Comment on above: Result Comment: Reference Range: Non-Smokers 0-2% Average Smoker 2-4% Heavy Smoker <10% Performed By: #### E RACHID JUNETECachorro, B12 ####[facility] [address]iz[address] [place] [address] Lab Director: Sarath Olivera MD Erythrocyte distribution width (RBC) [Ratio] 14.4 % Normal 11.8-14.4 [facility] Comment on above: Performed By: #### E RACHID JUNETECachorro, B12 ####[facility] [address] [place] [address] Lab Director: Sarath Olivera MD FIO2 INFORMATION NOT PROVIDED Normal [facility] Comment on above: Performed By: #### E RACHID JUNETECachorro, B12 ####[facility] [address] [place], [place] [phone] Director: Sarath Olivera MD HCO3 (Bld) [Moles/Vol] 17.2 mmol/L Low 24-30 [facility] Comment on above: Performed By: #### E RACHID JUNETECachorro, B12 ####[facility] [address] [place] [address] Lab Director: Sarath Olivera MD Hematocrit (Bld) [Volume fraction] 32.6 % Low 36.3-47.1 [facility] Comment on above: Performed By: #### E RACHID JUNETECachorro, B12 ####[facility] [address] [place] [address] Lab Director: Sarath Olivera MD Hemoglobin (Bld) [Mass/Vol] 9.8 g/dL Low 11.9-15.1 [facility] Comment on above: Performed By: #### E RACHID JUNETECachorro, B12 ####[facility] [address] [place], [place] [phone] Director: Sarath Olivera MD MCH (RBC) [Entitic mass] 31.4 pg Normal 25.2-33.5 [facility] Comment on above: Performed By: #### E RTRACHID WATSONTEG, B12 ####[facility] [address] [place], [place] [phone] Director: Sarath Olivera MD MCHC (RBC) [Mass/Vol] 30.1 g/dL Normal 28.4-34.8 [facility] Comment on above: Performed By: #### E RTRACHID WATSONTEG, B12 ####[facility] [address] [place] [address] Lab Director: Sarath Olivera MD MCV (RBC) [Entitic vol] 104.5 fL High 82.6-102.9 [facility] Comment on above: Performed By: #### E RACHID JUNETEG, B12 ####[facility] [address] [place] [address])[phone] Director: Sarath Olivera MD Negative Base Excess 9.9 mmol/L High 0.0-2.0 [facility] Comment on above: Performed By: #### E RACHID JUNETECachorro, B12 ####[facility] [address] [place] [address] [phone] Director: Sarath Olivera MD NRBC Automated 0.0 per 100 WBC Normal 0.0 [facility] Comment on above: Performed By: #### E RACHID JUNETECachorro, B12 ####[facility] [address] [place] [address] [phone] Director: Sarath Olivera MD Oxygen saturation in Blood 65.9 % Normal 60.0-85.0 [facility] Comment on above: Performed By: #### E RTRACHID WATSONTECachorro, B12 ####[facility] [address] [place], [place] [phone] Director: Sarath Olivera MD pCO2 45.1 mm Hg Normal 39-55 [facility] Comment on above: Performed By: #### E RTRACHID WATSONTEG, B12 ####[facility] [address] [place] [address] Lab Director: Sarath Olivera MD pH (Bld) 7.205 [pH] Critically low 7.320-7.420 [facility] Comment on above: Performed By: #### E RACHID JUNETEG, B12 ####[facility] [address] [place] [address] Lab Director: Sarath Olivera MD Platelet mean volume (Bld) [Entitic vol] 12.6 fL Normal 8.1-13.5 [facility] Comment on above: Performed By: #### E FRANCESCA JUNE, B12 ####[facility] [address] [place] [address] Lab Director: Sarath Olivera MD Platelets (Bld) [#/Vol] 140 10*3/uL Normal 138-453 [facility] Comment on above: Performed By: #### E RACHID JUNETECachorro, B12 ####[facility] [address] [place] [address] Lab Director: Sarath Olivera MD pO2 41.3 mm Hg Normal 30-50 [facility] Comment on above: Performed By: #### E RACHID JUNETECachorro, B12 ####[facility] [address]75[address] [place] [address] Lab Director: Sarath Olivera MD RBC (Bld) [#/Vol] 3.12 10*6/uL Low 3.95-5.11 [facility] Comment on above: Performed By: #### E RACHID JUNETECachorro, B12 ####[facility] [address] [place] [address] Lab Director: Sarath Olivera MD WBC (Bld) [#/Vol] 22.6 10*3/uL High 3.5-11.3 [facility] Comment on above: Performed By: #### E RTPF, RACHIDTEG, B12 ####[facility] [address] [place], [place] [phone] Director: Sarath Olivera MD Blood Bank BILL FOR SERVICES PERFORMED Normal [facility] Comment on above: Performed By: #### E RTPF, RACHIDTEG, B12 ####[facility] [address] [place] [address] [phone] Director: Sarath Olivera MD Urinalysis w/ Microon 2023 Bilirubin, SemiQt,Ur Negative Abnormal NEG [facility] Comment on above: Performed By: #### D AU, UAMIC #### [address] [address] [employer] Operator: Sarath Olivera MD Casts 5 TO 10 Normal 0-2 [facility] Comment on above: Result Comment: HYAL INE Performed By: #### D AU, UAMIC #### [facility] [address] [place] [address] [employer] Operator: Sarath Olivera MD Epithelial cells LM Ql (Urine sed) 20 TO 50 Normal 0-5 [facility] Comment on above: Performed By: #### D AU, UAMIC #### [address] [address] [employer] Operator: Sarath Olivera MD Mucus Strands 1+ Normal [facility] Comment on above: Performed By: #### D AU, UAMIC #### [facility] [address] [place] [address] [employer] Operator: Sarath Olivera MD Urine RBC's 0 TO 2 Normal 0-2 [facility] Comment on above: Performed By: #### D AU, UAMIC #### [facility] [address] [place] [address] [employer] Operator: Sarath Olivera MD Urine WBC's 20 TO 50 Normal 0-5 [facility] Comment on above: Performed By: #### Ashley CELESTE, UAMIC #### [facility] [address] [place] [address] [employer] Operator: Sarath Olivera MD Blood, Urine MODERATE Abnormal NEG [facility] Comment on above: Performed By: #### Ashley AU, UAMIC #### [facility] [address] [place] [address] [employer] Operator: Sarath Olivera MD Clarity (U) Turbid Abnormal CLEAR [facility] Comment on above: Performed By: #### Ashley AU, UAMIC #### [facility] [address] [place] [address] [employer] Operator: Sarath Olivera MD Color (U) Dark Yellow Abnormal YEL [facility] Comment on above: Performed By: #### Ashley AU, UAMIC #### [facility] [address] [place] [address] [employer]: Sarath Olivera MD Glucose Ql (U) TRACE Abnormal NEG [facility] Comment on above: Performed By: #### Ashley AU, UAMIC #### [facility] [address] [place] [address] [employer]: Sarath Olivera MD Ketones Ql (U) Negative Normal NEG [facility] Comment on above: Performed By: #### Ashley AU, UAMIC #### [facility] [address] [place] [address] [employer] Operator: Sarath Olivera MD Leukocyte esterase Test strip Ql (U) TRACE Abnormal NEG [facility] Comment on above: Performed By: #### Ashley AU, UAMIC #### [facility] [address] [place] [address] [employer] Operator: Sarath Olivera MD Nitrite,Ur Negative Normal NEG [facility] Comment on above: Performed By: #### D AU, UAMIC #### [facility] [place] [address] [employer] Operator: Sarath Olivera MD PH,Ur 5.0 Normal 5.0-8.0 [facility] Comment on above: Performed By: #### Ashley AU, UAMIC #### [address] [address] [employer] Operator: Sarath Olivera MD Protein Ql (U) 2+ mg/dL Abnormal NEG [facility] Comment on above: Performed By: #### Ashley CELESTE, UAMIC #### [facility] [address] [place] [address] [employer] Operator: Sarath Olivera MD Spec. [place],Ur 1.022 Normal 1.005-1.030 [facility] Comment on above: Performed By: #### Ashley CELESTE, UAMIC #### [address] [address] [employer] Operator: Sarath Olivera MD Urobilinogen,Ur Normal Normal 0.0-1.0 [facility] Comment on above: Performed By: #### Ashley AU, UAMIC #### [address] [address] [employer] Operator: Sarath Olivera MD XR ELBOW LEFT (MIN 3 VIEWS)o n 01-05-2024 XR ELBOW LEFT (MIN 3 VIEWS) EXAMINATION: THREE XRAY VIEWS OF THE LEFT ELBOW 01/05/2024 7:50 pm COMPARISON: None. HISTORY: ORDERING SYSTEM PROVIDED HISTORY: AP, Lat, Obl, trauma TECHNOLOGIST PROVIDED HISTORY: AP, Lat, Obl, trauma FINDINGS: No elbow joint effusion. No elevation of the anterior fat pad. Bones, joint spaces, and alignment are maintained. No acute fracture or dislocation. IMPRESSION: No acute fracture or dislocation. Interpreted by: Deon Webb MD Signed by: Deon Webb MD 01/05/24 Final result Normal [facility] XR FEMUR LEFT (MIN 2 VIEWS)o n 01-05-2024 XR FEMUR LEFT (MIN 2 VIEWS) EXAMINATION: 2 XRAY VIEWS OF THE LEFT FEMUR 01/05/2024 9:41 pm COMPARISON: None. HISTORY: ORDERING SYSTEM PROVIDED HISTORY: Trauma/Fracture, Ap, Lat TECHNOLOGIST PROVIDED HISTORY: Trauma/Fracture, Ap, Lat FINDINGS: Left femur is intact. No acute fracture. 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 IMPRESSION: No acute fracture. 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 Interpreted by: Deon Webb MD Signed by: Deon Webb MD 01/05/24 Final result Normal [facility] XR FEMUR RIGHT (MIN 2 VIEWS) on 01-05-2024 XR FEMUR RIGHT (MIN 2 VIEWS) EXAMINATION: 2 XRAY VIEWS OF THE RIGHT FEMUR 01/05/2024 9:41 pm COMPARISON: None. HISTORY: ORDERING SYSTEM PROVIDED HISTORY: Trauma post traction, AP, Lat TECHNOLOGIST PROVIDED HISTORY: Trauma post traction, AP, Lat FINDINGS: Interval placement of traction device in the distal femur. There is partial improvement of the alignment in the proximal 3rd of the femur at the fracture site. There is persistent medial displacement of the femur with improved fracture overlap. IMPRESSION: Interval placement of traction device in the distal femur with partial improvement of the alignment in the proximal 3rd of the femur at the fracture site. Interpreted by: Deon Webb MD Signed by: Deon Webb MD 01/05/24 Final result Normal [facility] XR FEMUR RIGHT (MIN 2 VIEWS) EXAMINATION: 2 XRAY VIEWS OF THE RIGHT FEMUR 01/05/2024 7:50 pm COMPARISON: None. HISTORY: ORDERING SYSTEM PROVIDED HISTORY: AP, Lat femur fx TECHNOLOGIST PROVIDED HISTORY: AP, Lat femur fx FINDINGS: Acute traumatic fracture is present in the proximal 3rd right femoral diaphysis with apex lateral angulation and fracture overlap. The right hip joint is maintained. Distal right femur is intact. The knee joint is grossly maintained. IMPRESSION: Acute traumatic fracture of the proximal 3rd right femoral diaphysis. Interpreted by: Deon Webb MD Signed by: Deon Webb MD 01/05/24 Final result Normal [facility] XR KNEE RIGHT (1-2 VIEWS)on 01-05-2024 XR KNEE RIGHT (1-2 VIEWS) EXAMINATION: TWO XRAY VIEWS OF THE RIGHT KNEE 01/05/2024 9:41 pm COMPARISON: Earlier today HISTORY: ORDERING SYSTEM PROVIDED HISTORY: post traction. TECHNOLOGIST PROVIDED HISTORY: post traction. FINDINGS: Traction device in the distal femur. Remaining bones and joint spaces are maintained. Patellofemoral osteoarthritis. No acute fracture or dislocation. IMPRESSION: No acute abnormality in the right knee. Interpreted by: Deon Webb MD Signed by: Deon Webb MD 01/05/24 Final result Normal [facility] XR KNEE RIGHT (3 VIEWS)on XR KNEE RIGHT (3 VIEWS) EXAMINATION: THREE XRAY VIEWS OF THE RIGHT KNEE 01/05/2024 7:50 pm COMPARISON: None. HISTORY: ORDERING SYSTEM PROVIDED HISTORY: AP, Lat and obl trauma TECHNOLOGIST PROVIDED HISTORY: AP, Lat and obl trauma FINDINGS: No joint effusion. Mild patellofemoral osteoarthritis. Mild medial compartment osteoarthritis. Remaining bones and joint spaces are maintained. No acute fracture or dislocation. IMPRESSION: 1. No acute fracture or dislocation. 2. Mild osteoarthritis. Interpreted by: Deon Webb MD Signed by: Deon Webb MD 01/05/24 Final result Normal [facility] XR SHOULDER LEFT (MIN 2 VIEW S)on 01-05-2024 XR SHOULDER LEFT (MIN 2 VIEWS) EXAMINATION: 3 XRAY VIEWS OF THE LEFT SHOULDER 01/05/2024 7:50 pm COMPARISON: None. HISTORY: ORDERING SYSTEM PROVIDED HISTORY: trauma prox humerus, ap, scap y and axillary. TECHNOLOGIST PROVIDED HISTORY: trauma prox humerus, ap, scap y and axillary. FINDINGS: Comminuted acute traumatic fracture is present of the left proximal humerus involving the surgical neck, greater tuberosity and lesser tuberosity. The humeral head is displaced posterior relative to the glenohumeral joint and humeral shaft. Acromioclavicular alignment is maintained. Left rib fractures partially imaged. IMPRESSION: 1. Comminuted acute traumatic fracture of the left proximal humerus involving the surgical neck, greater tuberosity and lesser tuberosity. 2. Posterior displacement of the humeral head relative to the glenohumeral joint and humeral shaft. 3. Left rib fractures partially imaged. Interpreted by: Deon Webb MD Signed by: Deon Webb MD 01/05/24 Final result Normal [facility] CBC AUTO DIFFon 12-10-2022 BASO # 0.0 103/ul Normal 0.0-0.1 [facility] Comment on above: Performed By: #### C BC ####[facility] [address] [place] [phone]. Sofiya Lozano Basophils/100 WBC (Bld) 0.4 % Normal 0.2-2.0 [facility] Comment on above: Performed By: #### C BC ####[facility] [address] [place] [address]Dr. Sofiya Lozano EO # 0.0 103/ul Normal 0.0-0.7 [facility] Comment on above: Performed By: #### C BC ####[facility] [address] [place] [address]Dr. Sofiya Lozano Eosinophils/100 WBC (Bld) 0.8 % Critically low 0.9-7.0 [facility] Comment on above: Performed By: #### C BC ####[facility] [address] [place] [address]Dr. Sofiya Lozano Erythrocyte distribution width (RBC) [Ratio] 13.6 % Normal 11.0-15.0 [facility] Comment on above: Performed By: #### C BC ####[facility] [address] [place] [phone]. Sofiya Lozano Hematocrit (Bld) [Volume fraction] 41.0 % Normal 36.0-48.0 [facility] Comment on above: Performed By: #### C BC ####[facility] [address] [place] [phone]. Sofiya Lozano Hemoglobin (Bld) [Mass/Vol] 13.0 g/dL Normal 12.0-16.0 [facility] Comment on above: Performed By: #### C BC ####[facility] [address] [place], [place] [address]Dr. Sofiya Lozano IG # 0.00 10e3/ul Normal 0.00-0.03 [facility] Comment on above: Performed By: #### C BC ####[facility] [address] [place], [place] [address]Vu. Sofiya Lozano IG % 0.0 % Normal 0.0-0.5 [facility] Comment on above: Performed By: #### C BC ####[facility] [address] [place] [phone]. Sofiya Lozano LYMPH # 1.5 103/ul Normal 1.2-3.8 [facility] Comment on above: Performed By: #### C BC ####[facility] [address] [place] [phone]. Sofiya Lozano Lymphocytes/100 WBC (Bld) 27.9 % Normal 20.5-60.0 [facility] Comment on above: Performed By: #### C BC ####[facility] [address] [place] [phone]. Sofiya Lozano MANUAL DIFF REQ NO Normal [facility] Comment on above: Performed By: #### C BC ####[facility] [address] [place] [phone]. Sofiya Lozano MCH (RBC) [Entitic mass] 30.0 pg Normal 26.7-34.0 [facility] Comment on above: Performed By: #### C BC ####[facility] [address] [place] [id number]. Sofiya Lozano MCHC (RBC) [Mass/Vol] 31.7 g/dL Normal 29.9-35.2 [facility] Comment on above: Performed By: #### C BC ####[facility] [address] [place] [id number]. Sofiya Lozano MCV (RBC) [Entitic vol] 94.5 fL Normal 81.0-99.0 [facility] Comment on above: Performed By: #### C BC ####[facility] X[address]cx[address]li[address] [place] [id number]. Sofiya Lozano MONO # 0.5 103/ul Normal 0.3-0.8 [facility] Comment on above: Performed By: #### C BC ####[facility] [address]vdbmc[address] [place] [id number]. Sofiya Lozano Monocytes/100 WBC (Bld) 8.6 % Normal 1.7-12.0 [facility] Comment on above: Performed By: #### C BC ####[facility] [address]azs[address] [place] [id number]. Sofiya Lozano NEUT # 3.3 103/ul Normal 1.4-6.5 [facility] Comment on above: Performed By: #### C BC ####[facility] [address]dpfugmkrf78[address] [place] [id number]. Sofiya Lozano Neutrophils/100 WBC (Bld) 62.3 % Normal 43.0-75.0 [facility] Comment on above: Performed By: #### C BC ####[facility] [address] [place] [id number]. Sofiya Lozano Platelet mean volume (Bld) [Entitic vol] 11.9 fL Normal 9.5-13.5 [facility] Comment on above: Performed By: #### C BC ####[facility] [address]wfw[address] [place] [id number]. Sofiya Lozano PLT 166 103/ul Normal 150-450 [facility] Comment on above: Performed By: #### C BC ####[facility] [address]xrhkuida44[address] [place] [id number]. Sofiya Lozano RBC 4.34 106/ul Normal 4.20-5.40 [facility] Comment on above: Performed By: #### C BC ####[facility] Yyqntj[address]vjk[address] [place] [id number]. Sofiya Lozano WBC 5.2 103/ul Normal 4.0-11.0 [facility] Comment on above: Performed By: #### C BC ####[facility] [address]xoprrzg[address] [place] [id number]. Sofiya Lozano FREE THYROXINE INDEX T7on FTI 2.50 Normal 1.30-4.50 [facility] Comment on above: Performed By: #### C MP, TSH, LIPID, T7 ####[facility] [address] [place], [place] [address]KwDr. Sofiya Lozano T3U 32.0 % Normal 30.0-39.0 [facility] Comment on above: Performed By: #### C MP, TSH, LIPID, T7 ####[facility] Istcygnskk12[address] [place], [place] [address]LyDr. Sofiya Lozano T4 [Mass/Vol] 7.80 ug/dL Normal 4.80-13.90 [facility] Comment on above: Performed By: #### C MP, TSH, LIPID, T7 ####[facility] [address]nbxgfylvy75[address] [place], [place] [address]DtSandi Lozano GLYCOHEMOGLOBIN A1Con 2022 ADA RECOMMENDATION SEE BELOW Normal [facility] Comment on above: Result Comment: ADA RECOMMENDED LIMIT 4.0 - 6.0 ADA THERAPEUTIC TARGET < 7.0 ACTION SUGGESTED > 7.0 Performed By: #### A 1C #### [facility] [address] [address] [address] Sofiya Lozano Glucose [Mass/Vol] 117 mg/dL Normal [facility] Comment on above: Performed By: #### A 1C #### [facility] [address] [address] [address] Sofiya Lozano HbA1c (Bld) [Mass fraction] 5.7 % Normal 4.5-6.2 [facility] Comment on above: Performed By: #### A 1C #### [facility] [address] [address] [address] Sofiya Lozano LIPID PROFILEon 12-10-2022 CHOL-HDL RATIO NORM SEE BELOW Normal [facility] Comment on above: Result Comment: 3.3 - 4.4 LOW RISK 4.4 - 7.1 AVERAGE RISK 7.1 - 11.0 MODERATE RISK >11.0 HIGH RISK Performed By: #### C MP, TSH, LIPID, T7 ####[facility] [address] [place] [id number]. Sofiya Lozano Cholesterol [Mass/Vol] 155 mg/dL Normal <=200 [facility] Comment on above: Performed By: #### C MP, TSH, LIPID, T7 ####[facility] [address]nrjouxbmm68[address] [place], [place] [address]Ad. Sofiya Lozano Cholesterol in HDL [Mass/Vol] 61 mg/dL Critically high 40-60 [facility] Comment on above: Performed By: #### C MP, TSH, LIPID, T7 ####[facility] X[address]dvysevg[address] [place] [id number]. Sofiya Lozano Cholesterol in LDL [Mass/Vol] 75.6 mg/dL Normal [facility] Comment on above: Performed By: #### C MP, TSH, LIPID, T7 ####[facility] X[address]lh[address] [place] [id number]. Sofiya Lozano Cholesterol.total/Cho lesterol in HDL [Mass ratio] 2.5 {ratio} Normal [facility] Comment on above: Performed By: #### C MP, TSH, LIPID, T7 ####[facility] [address]invhogf[address] [place] [id number]. Sofiya Lozano HDL NORMAL > or = 60 mg/dl - LO W CARDIOVASCULAR RISK <40 mg/dl - HIGH CARDIOVASCULAR RISK Normal [facility] Comment on above: Performed By: #### C MP, TSH, LIPID, T7 ####[facility] [address]pq[address]dl[address] [place] [id number]. Sofiya Lozano LDL CALC NORMAL SEE BELOW Normal [facility] Comment on above: Result Comment: <100 mg/dl OPTIMAL 100 - 129 mg/dl NEAR OR ABOVE OPTIMAL 130 - 159 mg/dl BORDERLINE HIGH 160 - 189 mg/dl HIGH >190 mg/dl VERY HIGH Performed By: #### C MP, TSH, LIPID, T7 ####[facility] [address] [place] [id number]. Sofiya Lozano Triglyceride [Mass/Vol] 92 mg/dL Normal <=150 [facility] Comment on above: Performed By: #### C MP, TSH, LIPID, T7 ####[facility] Gbbcngvmmd34[address] [place] [id number]. Sofiya Lozano VLDL CALC 18.4 mg/dL Normal [facility] Comment on above: Performed By: #### C MP, TSH, LIPID, T7 ####[facility] [address] [place] [address]Dr. Sofiya Lozano PROF 14(COMP METB)on 023 Albumin [Mass/Vol] 3.4 g/dL Normal 3.4-5.0 [facility] Comment on above: Performed By: #### C MP, TSH, LIPID, T7 ####[facility] [address]re[address] [place] [address]Dr. Sofiya Lozano Albumin/Globulin [Mass ratio] 1.0 {ratio} Normal [facility] Comment on above: Performed By: #### C MP, TSH, LIPID, T7 ####[facility] [address]pnmadbcwf12[address] [place] [address]Dr. Sofiya Lozano ALP [Catalytic activity/Vol] 85 U/L Normal 46-116 [facility] Comment on above: Performed By: #### C MP, TSH, LIPID, T7 ####[facility] [address]zrwks[address]yb[address] [place] [address]Dr. Sofiya Lozano ALT [Catalytic activity/Vol] 21 U/L Normal 14-59 [facility] Comment on above: Performed By: #### C MP, TSH, LIPID, T7 ####[facility] [address] [place], [place] [address]Dr. Sofiya Lozano Anion gap [Moles/Vol] 9.0 mmol/L Normal [facility] Comment on above: Performed By: #### C MP, TSH, LIPID, T7 ####[facility] [address] [place] [address]Dr. Sofiya Lozano AST [Catalytic activity/Vol] 18 U/L Normal 15-37 [facility] Comment on above: Performed By: #### C MP, TSH, LIPID, T7 ####[facility] [address]klwkxe[address] [place] [address]Dr. Sofiya Lozano Bilirubin [Mass/Vol] 0.4 mg/dL Normal 0.2-1.0 [facility] Comment on above: Performed By: #### C MP, TSH, LIPID, T7 ####[facility] [address]vjysjyjjx[address] [place] [address]Dr. Sofiya Lozano Calcium [Mass/Vol] 9.0 mg/dL Normal 8.5-10.1 [facility] Comment on above: Performed By: #### C MP, TSH, LIPID, T7 ####[facility] [address]frzxlbwmr62[address] [place] [address]Dr. Sofiya Lozano Chloride [Moles/Vol] 109 mmol/L Critically high 98-107 [facility] Comment on above: Performed By: #### C MP, TSH, LIPID, T7 ####[facility] [address]vmdvmixmy[address] [place] [address]Dr. Sofiya Lozano CO2 [Moles/Vol] 31.0 mmol/L Normal 21.0-32.0 [facility] Comment on above: Performed By: #### C MP, TSH, LIPID, T7 ####[facility] V[address]ctwusyzm[address] [place] [address]Dr. Sofiya Lozano Creatinine [Mass/Vol] 1.10 mg/dL Critically high 0.55-1.02 [facility] Comment on above: Performed By: #### C MP, TSH, LIPID, T7 ####[facility] [address]rwrqrzvgx64[address] [place] [address]Dr. Sofiya Lozano EGFR-AF [place] 57 mL/min/1.73m2 Critically low >=60 [facility] Comment on above: Performed By: #### C MP, TSH, LIPID, T7 ####[facility] It[address]ipyb[address] [place] [address]Dr. Sofiya Lozano EGFR-NON AF [place] 47 mL/min/1.73m2 Critically low >=60 [facility] Comment on above: Performed By: #### C MP, TSH, LIPID, T7 ####[facility] Rizb[address]jwxj36[address] [place] [address]Dr. Sofiya Lozano Globulin (S) [Mass/Vol] 3.4 g/dL Normal [facility] Comment on above: Performed By: #### C MP, TSH, LIPID, T7 ####[facility] [address]ixjet[address] [place] [address]Dr. Sofiya Lozano Glucose [Mass/Vol] 109 mg/dL Critically high 74-106 [facility] Comment on above: Performed By: #### C MP, TSH, LIPID, T7 ####[facility] Dciakts[address]xg17[address] [place] [address]Dr. Sofiya Lozano Potassium [Moles/Vol] 4.0 mmol/L Normal 3.5-5.1 [facility] Comment on above: Performed By: #### C MP, TSH, LIPID, T7 ####[facility] Gyorsiuusx[address] [place], [place] [address]Dr. Sofiya Lozano Protein [Mass/Vol] 6.8 g/dL Normal 6.4-8.2 [facility] Comment on above: Performed By: #### C MP, TSH, LIPID, T7 ####[facility] [address]oltat[address] [place], [place] [address]Dr. Sofiya Lozano Sodium [Moles/Vol] 145 mmol/L Normal 136-145 [facility] Comment on above: Performed By: #### C MP, TSH, LIPID, T7 ####[facility] Eeqtvwc[address] [place], [place] [address]Dr. Sofiya Lozano Urea nitrogen [Mass/Vol] 21.0 mg/dL Critically high 7.0-18.0 [facility] Comment on above: Performed By: #### C MP, TSH, LIPID, T7 ####[facility] [address] [place], [place] [address]Dr. Sofiya Lozano Urea nitrogen/Creatinine [Mass ratio] 19.1 mg/mg Normal [facility] Comment on above: Performed By: #### C MP, TSH, LIPID, T7 ####[facility] [address]xfxxyob[address] [place], [place] [address]Dr. Sofiya Lozano TSHon 12-10-2022 TSH 3.603 uIU/mL Normal 0.358-3.740 [facility] Comment on above: Performed By: #### C MP, TSH, LIPID, T7 ####[facility] [address] [place], [place] [address]Dr. Sofiya Lozano CBC AUTO DIFFon 08-09-2022 BASO # 0.0 103/ul Normal 0.0-0.1 [facility] Comment on above: Performed By: #### C BC #### [facility] [address] [address] [address] Sofiya Lozano Basophils/100 WBC (Bld) 0.2 % Normal 0.2-2.0 [facility] Comment on above: Performed By: #### C BC #### [facility] [address] [place] [address] Dr. Sofiya Lozano EO # 0.0 103/ul Normal 0.0-0.7 [facility] Comment on above: Performed By: #### C BC #### [facility] [address] [place] [address] Dr. Sofiya Lozano Eosinophils/100 WBC (Bld) 0.8 % Critically low 0.9-7.0 [facility] Comment on above: Performed By: #### C BC #### [facility] [address] [place] [address] Dr. Sofiya Lozano Erythrocyte distribution width (RBC) [Ratio] 13.7 % Normal 11.0-15.0 [facility] Comment on above: Performed By: #### C BC #### [facility] [address] [place] [address] Dr. Sofiya Lozano Hematocrit (Bld) [Volume fraction] 39.0 % Normal 36.0-48.0 [facility] Comment on above: Performed By: #### C BC #### [facility] [address] [place] [address] Dr. Sofiya Lozano Hemoglobin (Bld) [Mass/Vol] 13.0 g/dL Normal 12.0-16.0 [facility] Comment on above: Performed By: #### C BC #### [facility] [address] [place] [address] Dr. Sofiya Lozano IG # 0.01 10e3/ul Normal 0.00-0.03 [facility] Comment on above: Performed By: #### C BC #### [facility] [address] [place] [address] Dr. Sofiya Lozano IG % 0.2 % Normal 0.0-0.5 [facility] Comment on above: Performed By: #### C BC #### [facility] [address] [address] [address] Sofiya Lozano LYMPH # 0.9 103/ul Critically low 1.2-3.8 [facility] Comment on above: Performed By: #### C BC #### [facility] [address] [address] [address] Sofiya Lozano Lymphocytes/100 WBC (Bld) 19.1 % Critically low 20.5-60.0 [facility] Comment on above: Performed By: #### C BC #### [facility] [address] [place] [address] Dr. Sofiya Lozano MANUAL DIFF REQ NO Normal [facility] Comment on above: Performed By: #### C BC #### [facility] [address] [place] [address] Dr. Sofiya Lozano MCH (RBC) [Entitic mass] 30.6 pg Normal 26.7-34.0 [facility] Comment on above: Performed By: #### C BC #### [facility] [address] [place] [address] Dr. Sofiya Lozano MCHC (RBC) [Mass/Vol] 33.3 g/dL Normal 29.9-35.2 [facility] Comment on above: Performed By: #### C BC #### [facility] [address] [place] [address] Dr. Sofiya Lozano MCV (RBC) [Entitic vol] 91.8 fL Normal 81.0-99.0 [facility] Comment on above: Performed By: #### C BC #### [facility] [address] [place] [address] Dr. Sofiya Lozano MONO # 0.5 103/ul Normal 0.3-0.8 [facility] Comment on above: Performed By: #### C BC #### [facility] [address] [place] [address] Dr. Sofiya Lozano Monocytes/100 WBC (Bld) 10.5 % Normal 1.7-12.0 [facility] Comment on above: Performed By: #### C BC #### [facility] [address] [place] [address] Dr. Sofiya Lozano NEUT # 3.4 103/ul Normal 1.4-6.5 [facility] Comment on above: Performed By: #### C BC #### [facility] [address] [place] [address] Dr. Sofiya Lozano Neutrophils/100 WBC (Bld) 69.2 % Normal 43.0-75.0 [facility] Comment on above: Performed By: #### C BC #### [facility] [address] [place] [address] Dr. Sofiya Lozano Platelet mean volume (Bld) [Entitic vol] 11.7 fL Normal 9.5-13.5 [facility] Comment on above: Performed By: #### C BC #### [facility] [address] [place] [address] Dr. Sofiya Lozano PLT 158 103/ul Normal 150-450 [facility] Comment on above: Performed By: #### C BC #### [facility] [address] [place] [address] Dr. Sofiya Lozano RBC 4.25 106/ul Normal 4.20-5.40 [facility] Comment on above: Performed By: #### C BC #### [facility] [address] [place] [address] Dr. Sofiya Lozano WBC 4.9 103/ul Normal 4.0-11.0 [facility] Comment on above: Performed By: #### C BC #### [facility] [address] [place] [address] Dr. Sofiya Lozano PROF CHEM 8 (BAS METB)on Anion gap [Moles/Vol] 10.1 mmol/L Normal [facility] Comment on above: Performed By: #### B MP #### [facility] [address] [place] [address] Dr. Sofiya Lozano Calcium [Mass/Vol] 8.5 mg/dL Normal 8.5-10.1 [facility] Comment on above: Performed By: #### B MP #### [facility] [address] [address] [address] Sofiya Lozano Chloride [Moles/Vol] 102 mmol/L Normal 98-107 [facility] Comment on above: Performed By: #### B MP #### [facility] [address] [address] [address] Sofiya Lozano CO2 [Moles/Vol] 28.1 mmol/L Normal 21.0-32.0 [facility] Comment on above: Performed By: #### B MP #### [facility] [address] [address] [address] Sofiya Lozano Creatinine [Mass/Vol] 0.97 mg/dL Normal 0.55-1.02 [facility] Comment on above: Performed By: #### B MP #### [facility] [address] [place] [address] Dr. Sofiya Lozano EGFR-AF [place] >60 Normal >=60 [facility] Comment on above: Performed By: #### B MP #### [facility] [address] [address] [address] Sofiya Lozano EGFR-NON AF [place] 55 mL/min/1.73m2 Critically low >=60 [facility] Comment on above: Performed By: #### B MP #### [facility] [address] [address] [address] Sofiya Lozano Glucose [Mass/Vol] 128 mg/dL Critically high 74-106 [facility] Comment on above: Performed By: #### B MP #### [facility] [address] [address] [address] Sofiya Lozano Potassium [Moles/Vol] 4.2 mmol/L Normal 3.5-5.1 [facility] Comment on above: Performed By: #### B MP #### [facility] [address] [place] [address] Dr. Sofiya Lozano Sodium [Moles/Vol] 136 mmol/L Normal 136-145 [facility] Comment on above: Performed By: #### B MP #### [facility] [address] [address] [address] Sofiya Lozano Urea nitrogen [Mass/Vol] 20.0 mg/dL Critically high 7.0-18.0 [facility] Comment on above: Performed By: #### B MP #### [facility] [address] [place] [address] Dr. Sofiya Lozano Urea nitrogen/Creatinine [Mass ratio] 20.6 mg/mg Normal [facility] Comment on above: Performed By: #### B MP #### [facility] [address] [place] [address] Dr. Sofiya Lozano PROTIMEon 08-09-2022 INR Coag (PPP) [Relative time] 2.00 {INR} Normal [facility] Comment on above: Performed By: #### P TT, PT #### [facility] [address] [place] [address] Dr. Sofiya Lozano INR GUIDELINES SEE BELOW Normal [facility] Comment on above: Result Comment: FIGUEROA RED INR: 2.0 - 3.0 CONDITIONS NOT LISTED BELOW 2.5 - 3.5 FOR PROSTHETIC HEART VALVE REPLACEMENT 2.5 - 3.5 RECURRENT THROMBOSIS Performed By: #### P TT, PT #### [facility] [address] [place] [address] Dr. Sofiya Lozano PT Coag (PPP) [Time] 20.6 s Critically high 9.0-11.6 [facility] Comment on above: Performed By: #### P TT, PT #### [facility] [address] [place] [address] Dr. Sofiya Lozano PTTon 08-09-2022 aPTT Coag (Bld) [Time] 38.5 s Critically high 22.3-36.2 [facility] Comment on above: Performed By: #### P TT, PT ####[facility] [address] [place], [place] [address]Dr. Sofiya Lozano US VENOUS DOPPLER L Isabel US VENOUS DOPPLER L ARM EXAMINATION: US VENOUS DOPPLER L ARM HISTORY: Pain COMPARISON: 03/03/2019 TECHNIQUE: Grayscale and color ultrasound FINDINGS: Region: Left arm Thrombus: None Flow: Normal Compressibility: Noncompressibility of the superficial basilic vein, likely sequela of chronic thrombus seen on the prior exam IMPRESSION: No deep vein thrombus in the left arm *Exam performed in accordance with [facility] practice guidelines- Peripheral venous ultrasound, October 28, 2009. Electronically authenticated by: CONCEPCIÓN WOMACK Date: 2022-08-09 15:59 Normal [facility] PROTIMEon 05-13-2022 INR Coag (PPP) [Relative time] 2.76 {INR} Normal [facility] Comment on above: Performed By: #### P T #### [facility] [address] [place] [address] Dr. Sofiya Lozano INR GUIDELINES SEE BELOW Normal [facility] Comment on above: Result Comment: FIGUEROA RED INR: 2.0 - 3.0 CONDITIONS NOT LISTED BELOW 2.5 - 3.5 FOR PROSTHETIC HEART VALVE REPLACEMENT 2.5 - 3.5 RECURRENT THROMBOSIS Performed By: #### P T #### [facility] [address] [place] [address] Dr. Sofiya Lozano PT Coag (PPP) [Time] 27.9 s Critically high 9.0-11.6 [facility] Comment on above: Performed By: #### P T #### [facility] [address] [place] [address] Dr. Sofiya Lozano PROTIMEon 04-15-2022 INR Coag (PPP) [Relative time] 2.18 {INR} Normal [facility] Comment on above: Performed By: #### P T #### [facility] [address] [place] [address] Dr. Sofiya Lozano INR GUIDELINES SEE BELOW Normal [facility] Comment on above: Result Comment: FIGUEROA RED INR: 2.0 - 3.0 CONDITIONS NOT LISTED BELOW 2.5 - 3.5 FOR PROSTHETIC HEART VALVE REPLACEMENT 2.5 - 3.5 RECURRENT THROMBOSIS Performed By: #### P T #### [facility] [address] [place] [address] Dr. Sofiya Lozano PT Coag (PPP) [Time] 22.4 s Critically high 9.0-11.6 [facility] Comment on above: Performed By: #### P T #### [facility] [address] [address] [address] Sofiya Lozano VIT D 25-OH LABCORPon 2021 Vitamin D, 25-Hydroxy 23.7 ng/mL Critically low 30.0-100.0 [facility] Comment on above: Result Comment: Jailyn min D deficiency has been defined by the [place] of Medicine and an Endocrine Society practice guideline as a level of serum 25-OH vitamin D less than 20 ng/mL (1,2). The Endocrine Society went on to further define vitamin D insufficiency as a level between 21 and 29 ng/mL (2). 1. IOM ([place] of Medicine). 2010. Dietary reference intakes for calcium and D. [place]: The National Academies Press. 2. Negin MF, Francisco CUNN[place], Summer FERNANDEZ, et al. Evaluation, treatment, and prevention of vitamin D deficiency: an Endocrine Society clinical practice guideline. JCEM. 2010; 96(7):1911-30. Performed By: #### V ITADLC #### [facility] [address] [place] [address] Dr. Sofiya Lozano VITAMIN B12on 03-01-2022 Cobalamin (Vitamin B12) [Mass/Vol] 258.0 pg/mL Normal 193.0-986.0 [facility] Comment on above: Performed By: #### V ITB12 #### [facility] [address] [address] [address] Sofiya Lozano PROTIMEon 12-24-2021 INR Coag (PPP) [Relative time] 1.79 {INR} Normal [facility] Comment on above: Performed By: #### P T #### [facility] [address] [address] [address] Sofiya Lozano INR GUIDELINES SEE BELOW Normal [facility] Comment on above: Result Comment: FIGUEROA RED INR: 2.0 - 3.0 CONDITIONS NOT LISTED BELOW 2.5 - 3.5 FOR PROSTHETIC HEART VALVE REPLACEMENT 2.5 - 3.5 RECURRENT THROMBOSIS Performed By: #### P T #### [facility] [address] [place] [address] Dr. Sofiya Lozano PT Coag (PPP) [Time] 18.6 s Critically high 9.0-11.6 [facility] Comment on above: Performed By: #### P T #### [facility] [address] [address] [address] Sofiya Lozano Encounters Encounter Date Encounter Type Care Provider Facility Start: 03-15-2024 End: 03-15-[address] [facility] Start: 02-17-2024 End: 02-23-2024 Evaluation and management of inpatient [facility] Start: 02-09-2024 End: 02-09-[address] [facility] Start: 02-02-2024 End: 02-02-2024 ambulatory [facility] Start: 02-02-2024 End: 02-02-2024 Subsequent hospital visit by physician Fatmata De Dios CNP [facility] Start: 01-26-2024 End: 01-26-2024 ambulatory [facility] Start: 01-23-2024 End: 01-25-2024 ambulatory [facility] Start: 01-23-2024 End: 01-25-2024 Subsequent hospital visit by physician Dima Cat Scan Room [facility] CT Scan Comment on above: SDH (subdural hemato ma) (HCC) Start: 01-19-2024 End: 01-19-2024 ambulatory [facility] Start: 01-15-2024 End: 01-15-2024 ambulatory [facility] Start: 01-15-2024 End: 01-15-2024 Subsequent hospital visit by physician Fatmata De Dios CNP Work Phone: [facility] Start: 01-05-2024 End: 01-13-2024 Evaluation and management of inpatient BECKY FOLEY [facility] Start: 07-03-2023 End: 07-03-2023 ambulatory [facility] [facility] Start: 12-14-2022 Encounter for genera l adult medical examination without abnormal findings DR MOISES SANCHEZ . [facility] Start: 12-10-2022 End: 12-11-[address] MOISES SANCHEZ . Facility: Start: 12-10-2022 End: 12-11-2022 Encounter for general adult medical examination without abnormal findings DR MOISES SANCHEZ . Facility:[facility]1 Start: 08-12-2022 ambulatory FATMATA BELLAMY Facility: [facility]1 Start: 08-09-2022 End: 08-09-2022 ambulatory FATMATA BELLAMY Facility:[facility]1 Start: 05-13-2022 End: 06-03-[address] MOISES SANCHEZ . Facility:[facility]1 Start: 04-15-2022 End: 05-04-[address] MOISES SANCHEZ . Facility:[facility]1 Start: 03-01-2022 End: 03-02-2022 ambulatory FATMATA BELLAMY Facility:[facility]1 Start: 12-24-2021 End: 01-01-[address] MOISES SANCHEZ . Facility: Procedures Date Procedure Procedure Detail Performing Clinician Start: 02-02-2024 Comprehensive metabo lic panel Tae Lawrence MD Work Phone: Start: 01-15-2024 Comprehensive metabo lic panel Tae Lawrence MD Work Phone: Plan of Treatment Date Care Activity Detail Author Start: 03-04-2024 Influenza vaccination Flu vaccine (# 1) [facility] Start: 02-19-2024 End: 02-19-2024 Patient encounter procedure 02/19/2024 10:30 AM EDT Office Visit [facility] [address] [address] [place] [address] Celina Daiz, DO [address] [facility] [address] [place] [address] Follow up with Sylvia or Adelina in two weeks with CTH prior to appointment for SDH [facility] Comment on above: Follow up with Sylvia or Adelina in two weeks with CTH prior to appointment for SDH Start: 02-09-2024 End: 02-09-2024 Patient encounter procedure 02/09/2024 11:30 AM EDT Office Visit [facility] [address] [place] [address] [address] [place] [address] Austin Zee, DO [address] [phone] LEFT PROX HUMERUS/ RIGHT TIB COMING FORM [facility]. R/S w/Deisy due to Covid [phone] [facility] Comment on above: LEFT PROX HUMERUS/ R IGHT TIB COMING FORM [facility]. R/S w/Deisy due to Covid [phone] Start: 02-02-2024 End: 02-02-2024 Patient encounter procedure 02/02/2024 10:15 AM EDT Office Visit [facility] [address] [place] [phone] Austin Zee, DO [address] [address] LEFT PROX HUMERUS/ RIGHT TIB COMING FORM [facility] Comment on above: LEFT PROX HUMERUS/ R IGHT TIB COMING FORM [facility] Start: 01-21-2024 End: 01-21-2024 Patient encounter procedure 01/21/2024 3:15 PM EDT Office Visit [facility] [address] [phone] Austin Zee, DO [address] [phone] R fem IMN, closed tx left proximal humerus [facility] Comment on above: R fem IMN, closed tx left proximal humerus Start: 01-21-2024 End: 01-21-2024 Patient encounter procedure 01/21/2024 11:30 AM EDT Office Visit [place] [address] [facility] [address] Floor, [address] [place] [phone] Sylvia Malone W, FOUR ROLL CALENDER OPERATOR - SWITCHBOARD RECEPTIONIST [address] [facility] [address] [place], [place] [id number] Follow up with Sylvia or Adelina in two weeks with CTH prior to appointment for [facility] Comment on above: Follow up with Sylvia or Adelina in two weeks with CTH prior to appointment for SDH Start: 08-04-2023 Annual Wellness Visi t (Medicare Advantage) Annual Wellness Visit (Medicare Advantage) [facility] Start: 04-04-2023 COVID-19 Vaccine ( season) COVID-19 Vaccine ( season) [facility] Start: 1999 Respiratory Syncytia l Virus (RSV) or age 60 yrs+ (1 - 1-dose 60+ series) Respiratory Syncytial Virus (RSV) or age 60 yrs+ (1 - 1-dose 60+ series) [facility] Start: 1994 Screening for osteoporosis DEXA (modify frequency per FRAX score) [facility] Start: 1958 DTaP/Tdap/Td vaccine (1 - Tdap) DTaP/Tdap/Td vaccine (1 - Tdap) [facility] Start: 1951 Depression Screen Depression Screen [facility] End: 01-23-2024 CT Head WO contrast [facility] Work Phone: Comment on above: 1 Occurrences starti ng 01/23/2024 until 01/23/2024 Payers Date Payer Category Payer Self-pay [id number] 1960 Unknown [id number] 1940 Unknown [id number] 2.16.84 [id number] 1940 Unknown [id number] 2.16.84 0.1.073211.3.579.2.593 1940 Unknown [id number] 2.16.84 0.1.300090.3.579.2.593 1940 Unknown [id number] 2.16.84 0.1.493414.3.579.2.593 1940 Unknown [id number] 2.16.84 0.1.680449.3.579.2.593 1940 Unknown [id number] 2.16.84 0.1.461773.3.579.2.593 1939 Unknown [id number] 2.16.84 0.1.606082.3.579.2.593 1939 Unknown [id number] 2.16.8 40.1.070024.3.579.2.173 1939 Unknown [id number] 2.16.8 40.1.443739.3.579.2.173 1939 Unknown [id number] 2.16.8 40.1.262871.3.579.2.173 1939 Unknown [id number] 2.16.8 40.1.202894.3.579.2.173 1939 Unknown [id number] 2.16.8 40.1.105477.3.579.2.173 1940 Unknown [id number] 2.16. 840.1.268941.3.579.2.175 1940 Unknown [id number] 2.16 840.1.344833.3.579.2.175 1940 Unknown [id number] 2.16 840.1.465722.3.579.2.175 1940 Unknown [id number] 2.16 840.1.695763.3.579.2.175 Social History Date Type Detail Facility Start: 01-10-2024 Tobacco smoking stat [facility] Never smoked tobacco [facility] Start: 01-10-2024 Tobacco use and exposure Smokeless tobacco non-user [facility] Start: 01-05-2024 End: 01-10-2024 History of Social function [facility] [employer] Start: 01-05-2024 End: 01-10-2024 Tobacco use panel [facility] [employer] Physical abuse Denies [facility] Start: 1940 Sex Assigned At Not on file B ON [employer] Medical Equipment Procedure Code Equipment Code Equipment Origin al Text Equipment Identifier Dates Nail Im Fem 12x4 20 Mm Rt Greater Trochanteric Strl T2 Alpha - [id number], [id number] FDA Start: 01-06-2024 Screw Bne L90mm Dia6.5mm Canc Fem Ti Lag Rory Saad Partially - [id number] [id number], [id number] FDA Start: 01-06-2024 Screw Bne L90mm Dia6.5mm Canc Fem Ti Lag Rory Saad Partially - [id number] ()[id number], [id number] FDA Start: 01-06-[address] 5x37 5mm - [id number] ()[id number] [id number], [id number] FDA Start: 01-06-2024 Screw Bne L50mm Dia5mm Saad For T2 Alpha Nailing Sys - [id number] [id number], [id number] FDA Start: 01-06-2024 Screw Bne Lck 5x 45 Mm Adv Strl Alpha - [id number] Start: 01-06-2024 Clinical Note 03-01-2022 Note Date & Type Note Facility 03-01-2022 Note PROCEDURE: XR FOOT L T MIN 3 VIEWS HISTORY: Pain in left foot , chronic COMPARISON: None. FINDINGS: BONES:Moderate degenerative changes involving the tarsal-metatarsal joints. No fracture, dislocation, bone lesion. Small calcaneal plantar spur. SOFT TISSUES:No visible soft tissue swelling. EFFUSION:None visible. OTHER: Negative. IMPRESSION: 1. Moderate degenerative changes of the midfoot. 2. No acute bone abnormality. Electronically authenticated by: BERTO ALEJO Date: 2022-03-01 17:38 [facility] Evaluation note Note Date & Type Note Facility Evaluation note Diagnosis SDH (subdural hematoma) (HCC) Subdural hemorrhage documented in this encounter [facility] Summary Purpose Family History No Family History Records FoundNo Family History Records FoundNo Family History Records Found Advance Directives No Advanced Directives Records FoundLatest Code Status on File Code Status Date Activated Date Inactivated Comments Full Code 01/05/2024 7:14 PM 01/13/2024 11:31 PM Healthcare Agents on File Name Relationship Healthcare Agent Relationshi p Communication Chava Jain Spouse Primary Decision Maker Latest Code Status on File Code Status Date Activated Date Inactivated Comments Full Code 01/05/2024 7:14 PM 01/13/2024 11:31 PM Healthcare Agents on File Name Relationship Healthcare Agent Relationshi p Communication Chava Jain Spouse Primary Decision Maker Healthcare Agents on File Name Relationship Healthcare Agent Relationshi p Communication Chava Jain Spouse Primary Decision Maker Reason for Referral Specialty Diagnoses / Procedures Referred By Brianna t Referred To Contact Radiology Diagnoses SDH (subdural hematoma) (HCC) Procedures CT HEAD WO CONTRAST Ger Guzman APRN - CNP [address] [address] Referral ID Status Reason Start Date Expiration Date Visits Re quested Visits Authorized [id number] Closed 01/20/2024 04/18/2024 1 1 Additional Source Comments INFORMATION SOURCE (unrecogn ized section and content) DATE CREATED AUTHOR 12/15/2022 [facility] DATE CREATED AUTHOR AUTHOR'S ORGANIZ ATION 02/03/2024 [facility] DATE CREATED AUTHOR AUTHOR'S ORGANIZ ATION 03/19/2024 [facility] Care Teams (unrecognized sec tion and content) Siderographist Relationship Specialty Start Date End Date Fatmata Bellamy APRN - CNP [address] [place] [address] [place] [address] PCP - General 01/06/24 Siderographist Relationship Specialty Start Date End Date Josesito Fatmata Barney APRN - MARLIN [address] [place] [address] [place] [address] PCP - General 01/06/24 Siderographist Relationship Specialty Start Date End Date Josesito Fatmata Barney APRN - MARLIN [address] [place] [address] [place] [address] PCP - General 01/06/24 Reason for Visit (unrecogniz ed section and content) Specialty Diagnoses / Procedures Referred By Brianna christensen Referred To Contact Radiology Diagnoses SDH (subdural hematoma) (HCC) Procedures CT HEAD WO CONTRAST Ger Guzman, FOUR ROLL CALENDER OPERATOR - SWITCHBOARD RECEPTIONIST [address] [address] Referral ID Status Reason Start Date Expiration Date Visits Re quested Visits Authorized [id number] Closed 01/20/2024 04/18/2024 1 1 FOR RECORDS PERTAINING TO PATIENTS WHO ARE OR HAVE BEEN ENROLLED IN A CHEMICAL DEPENDENCY/SUBSTANCEABUSE PROGRAM, SOME INFORMATION MAY BE OMITTED. This clinical summary was aggregated from multiple sources. Caution should be exercised in using it in the provision of clinical care. This summary normalizes information from multiple sources, and as a consequence, information in this document may materially change the coding, format and clinical context of patient data. In addition, data may be omitted in some cases. CLINICAL DECISIONS SHOULD BE BASED ON THE PRIMARY CLINICAL RECORDS. [facility] [employer] provides no warranty or guarantee of the accuracy or completeness of information in this document.
[2024-04-12 12:47] LABS: INR 1.71; Prothrombin Time 17.2 sec (9.0-11.6)
== END 2024-04-12 11:18 | disposition home or self-care (01) ==
LOC: LAB 11:18
PROVIDERS: PCP Nurse Practitioner Family; Visit Provider Nurse Practitioner Family
DX: I48.91 Unspecified atrial fibrillation (principal)
CPT/HCPCS: 36415; 85610

== ENCOUNTER 2024-11-08 10:55 | Outpatient (OUT) | payer MEDICARE, SELFPAY ==
--- NOTE | 2024-11-08 11:04 | XR_ITS ---
The [place] [id number] Patient Name: MARIA GUADALUPE JAIN MRN: [id number] date: 1940 Sex: F Assigned Patient Location: [facility] Current Patient Location: [facility] Accession/Order Number: [id number] Exam Date: 11/08/2024 13:19 Report Date: 11/08/2024 13:21 At the request of: LIGIA BELLAMY Procedure: XR hip RT min 2V 3 views right hip plain film COMPARISON: 09/26/2020 HISTORY: Acute right hip pain for 2 weeks. ACUTE FINDINGS: Healed/healing fracture of the proximal shaft of right femur DEGENERATIVE CHANGE: Similar mild right hip degeneration SOFT TISSUE FINDINGS: Unremarkable JOINT EFFUSION: None POSTOP CHANGES: No hardware complication. BONY MINERALIZATION: Adequate XR/XR hip RT min 2V IMPRESSION: Adequate visualized fixation hardware of the right hip. No acute bony findings. Leena/healing fracture of the proximal shaft of the right femur. Similar degenerative change Impression dictated by: Garfield Mathew M.D.11/08/2024 1:21 PM Dictation Location: [employer] Electronically authenticated by: [id number] Y Date: 11/08/2024 13:21
--- OUTSIDE RECORDS SUMMARY | 2024-11-08 11:17 | XMS_ITS | CCD ---
Author Organization [facility] Care Team Providers Care Electrical Design Engineer Name Role Phone DANIEL ., DR DE [...] Unavailable PAY ., DR BAEZ Attending Unavailable [place], DR CONCEPCIÓN Wang Consulting Unavailable PAY ., [...] Consulting Unavailable JOSESITO, FATMATA Consulting Unavailable Josesito FISHER SPONGE HOOKING - WHITE SUGAR SYRUP OPERATOR, Fatmata S Primary Care Provide r TAE LAWRENCE Referring Unavailable JOSESITO, FATMATA S Primary Care Unavailable TAE LAWRENCE Referring Unavailable JOSESITO, FATMATA S Primary Care Unavailable TAE LAWRENCE Referring Unavailable JOSESITO, FATMATA S Primary Care Unavailable GER GUZMAN Referring Unavailable JOSESITO, FATMATA S Primary Care Unavailable MOISES SANCHEZ Referring Unavailable TAE LAWRENCE Referring Unavailable JOSESITO, FATMATA S Primary Care Unavailable JOSESITO, FATMATA S Primary Care Unavailable AUSTIN ZEE Referring Unavailable JOSESITO, FATMATA S Primary Care Unavailable AUSTIN ZEE Referring Unavailable JOSESITO, FATMATA S Primary Care Unavailable BECKY FOLEY Admitting Unavailable BECKY FOLEY Consulting Unavailable BECKY FOLEY Attending Unavailable GENNY NICOLE Consulting Unavailable AUSTIN ZEE Consulting Unavailable CELINA DIAZ Consulting Unavailable ELENO RODRIGUEZ Consulting UnavailAUSTIN Pacheco Admitting Unavailable FATMATA BELLAMY Primary Care Unavailable AUSTIN ZEE Attending Unavailable ADELINE BURLESON Consulting Unavailable EDITH GOMEZ Consulting Unavailable FATMATA BELLAMY Primary Care Unavailable AUSTIN ZEE Referring Unavailable Allergies Allergy Classification Reported Allergen(s) Allergy Type Date of Onset Reaction(s) Facility (2 sources) Sulfonamides (Antibiotic) Drug allergy (disorder) 3 [facility] (3 sources) Penicillins Propensity to adverse reactions to drug 4 [facility] (3 sources) Sulfonamides (Antibiotic) Propensity to adverse reactions to drug 4 [facility] Medications Current Medications Medication Drug Class(es) Dates [...] 15 tablet 0 01/14/2024 02/13/2024 Active sennosides, senior living 1.76 mg/ml oral solution (3 sources) Start: [...] Translations: [PURE HYPERCHOLESTEROLEMIA UNSPEC] Onset: 3 Chronic Malaise and fatigue (1 source) Chronic fatigue, unspecified; Translations: [CHRONIC FATIGUE UNSPECIFIED] Onset: 3 Chronic Nutritional deficiencies (1 source) Vitamin D deficiency, unspecified; Translations: [VITAMIN D DEFICIENCY UNSPECIFIED] Onset: 2 Chronic Residual codes; unclassified (1 source) Insomnia, unspecified; Translations: [INSOMNIA UNSPECIFIED] Onset: 3 Episodic Residual codes; unclassified (1 source) Pain, unspecified; Translations: [Pain, unspecified] Onset: 4 Episodic Unclassified (2 sources) Traumatic subdural hemorrhage with loss of consciousness status unknown, initial encounter; Translations: [Traumatic subdural hemorrhage with loss of consciousness status unknown, initial encounter] Onset: 4 Past or Other Problems Problem Classification Problem Date Documented Da te Episodic/Chronic Fracture of lower limb (6 sources) Closed fracture of shaft of right femur; Translations: [Unspecified fracture of shaft of right femur, initial encounter for closed fracture] Onset: 01-06-2024 01-06-2024 Episodic Fracture of neck of femur (hip) (1 source) Fracture of unspecified part of neck of right femur, initial encounter for closed fracture; Translations: [Fracture of unspecified part of neck of right femur, initial encounter for closed fracture] Onset: 01-05-2024 Episodic Fracture of upper limb (7 sources) Closed fracture of proximal left humerus; Translations: [Unspecified fracture of upper end of left humerus, initial encounter for closed fracture] Onset: 01-06-2024 01-06-2024 Episodic Malaise and fatigue (4 sources) Other fatigue; Translations: [OTHER FATIGUE] Onset: 03-01-2022 Episodic Other aftercare (1 source) hearing therapist (current) use of anticoagulants; Translations: [IRRIGATION INSTALLATION SPECIALIST CURRNT USE ANTICOAGULANTS] Onset: 08-12-2022 Episodic Other aftercare (1 source) nursing home (current) use of aspirin; Translations: [DETENTION CURRENT USE OF ASPIRIN] Onset: 08-12-2022 Episodic Other aftercare (2 sources) Other 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 (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 therapy; Translations: [Other 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 (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 therapy] Onset: 07-03-2023 Episodic Other [...] [PAIN IN LEFT FOOT] Onset: 03-07-2022 Episodic Other nervous system disorders (1 source) Other acute postprocedural pain; Translations: [Other acute postprocedural pain] Onset: 02-17-2024 Episodic Phlebitis; thrombophlebitis and thromboembolism (1 source) Personal history of other venous thrombosis and embolism; Translations: [PERS HX OTH VENOUS THROMBOSIS AND EMBO] Onset: 08-12-2022 Episodic Residual codes; unclassified (1 source) Acquired absence of both cervix and uterus; Translations: [ACQUIRED ABSENCE BOTH CERVIX AND UTERUS] Onset: 08-12-2022 Episodic Septicemia (except in labor) (4 sources) Infectious agent in bloodstream; Translations: [Sepsis, unspecified organism] Onset: 01-06-2024 01-06-2024 Episodic Urinary tract infections (1 source) Acute cystitis without hematuria; Translations: [Acute cystitis without hematuria] Onset: 01-05-2024 Episodic Results Test Name Value Interpretation Reference Range Facility XR FEMUR RIGHT (MIN 2 VIEWS) on 06-02-2024 XR FEMUR RIGHT (MIN 2 VIEWS) History: 83 y.o. year old female status post intramedullary fixation Right femur Comparison: 03/15/2024 Findings: 2 views of the Right femur (AP/lateral) in a skeletally mature patient showing redemonstration of orthopedic hardware in the form of intramedullary nail to Right femur. No signs of hardware failure or loosening. Unchanged alignment. Interval callus formation when compared to prior films. No new acute osseous abnormalities. No radiopaque foreign bodies. Impression: Stable hardware Right femur Interpreted by: Austin Zee DO Signed by: Austin Zee DO 06/02/24 Final result Normal [facility] XR SHOULDER LEFT (MIN 2 VIEW S)on 06-02-2024 XR SHOULDER LEFT (MIN 2 VIEWS) History: 83-year-old female status post left reverse shoulder arthroplasty Comparison: 03/15/2024 Findings: 3 views of left shoulder (AP/Grashey/scapular Y) in a skeletally mature individual showing redemonstration of the left shoulder arthroplasty without any acute complication. No subluxations or dislocations visualized. Multiple bony ossicles consistent with proximal humerus fracture once again visualized, but no change in alignment. Impression: Stable arthroplasty left proximal humerus Interpreted by: Austin Zee DO Signed by: Austin Zee DO 06/02/24 Final result Normal [facility] XR FEMUR RIGHT (MIN 2 VIEWS) on [...] Austin Zee DO 03/17/24 Final result Normal [facility] XR SHOULDER LEFT (MIN 2 VIEW S)on [...] Austin Zee DO 03/17/24 Final result Normal [facility] XR FEMUR RIGHT (MIN 2 VIEWS) on [...] by: Austin Zee, 02/25/24 Final result Normal [facility] XR SHOULDER LEFT (MIN 2 VIEW S)on [...] by: Austin Zee, 02/25/24 Final result Normal [facility] Basic Metab w/rfx MGon 02-22 Anion gap [Moles/Vol] 6 mmol/L Low 9-16 [facility] Comment on above: Performed By: #### B C #### [place] [address] Rag Washer: Sarath Olivera MD Calcium [Mass/Vol] 8.6 mg/dL Normal 8.6-10.4 [facility] Comment on above: Performed By: #### B C #### [place] [address] Rag Washer: Sarath lOivera MD Chloride [Moles/Vol] 108 mmol/L High 98-[address] [facility] Comment on above: Performed By: #### B C #### [place] [address] Rag Washer: Sarath Olivera MD CO2 [Moles/Vol] 30 mmol/L Normal 20-31 [facility] Comment on above: Performed By: #### B C #### [address] [place] [address] Rag Washer: Sarath Olivera MD Creatinine [Mass/Vol] 0.7 mg/dL Normal 0.50-0.90 [facility] Comment on above: Performed By: #### B C #### [facility] [address] [place] [address] Rag Washer: Sarath Olivera MD GFR/1.73 sq M.predicted among non-blacks MDRD (S/P/Bld) [Vol rate/Area] 86 mL/min/{1.73_m2} Normal >60 [facility] Comment on above: Result Comment: These results [...] renal tubular secretion. Performed By: #### B C #### [facility] [address] [place] [address] Rag Washer: Sarath Olivera MD Glucose [Mass/Vol] 91 mg/dL Normal 74-99 [facility] Comment on above: Performed By: #### B C #### [facility] [address] [place] [address] Rag Washer: Sarath Olivera MD Potassium [Moles/Vol] 3.9 mmol/L Normal 3.7-5.3 [facility] Comment on above: Performed By: #### B C #### [facility] [address] [place] [address] Rag Washer: Sarath Olivera MD Sodium [Moles/Vol] 144 mmol/L Normal 136-145 [facility] Comment on above: Performed By: #### B C #### [facility] [address] [place] [address] Rag Washer: Sarath Olivera MD Urea nitrogen [Mass/Vol] 20 mg/dL Normal 8-23 [facility] Comment on above: Performed By: #### B C #### [address] [address] Rag Washer: Sarath Olivera MD CBCon 02-23-2024 Erythrocyte distribution width (RBC) [Ratio] 17.4 % High 11.8-14.4 [facility] Comment on above: Performed By: #### B C #### [address] [address] Rag Washer: Sarath Olivera MD Hematocrit (Bld) [Volume fraction] 35.7 % Low 36.3-47.1 [facility] Comment on above: Performed By: #### B C #### [address] [address] Rag Washer: Sarath Olivera MD Hemoglobin (Bld) [Mass/Vol] 10.5 g/dL Low 11.9-15.1 [facility] Comment on above: Performed By: #### B C #### [address] [address] Rag Washer: Sarath Olivera MD MCH (RBC) [Entitic mass] 30.0 pg Normal 25.2-33.5 [facility] Comment on above: Performed By: #### B C #### [address] [address] Rag Washer: Sarath Olivera MD MCHC (RBC) [Mass/Vol] 29.4 g/dL Normal 28.4-34.8 [facility] Comment on above: Performed By: #### B C #### [address] [address] Rag Washer: Sarath Olivera MD MCV (RBC) [Entitic vol] 102.0 fL Normal 82.6-102.9 [facility] Comment on above: Performed By: #### B C #### [address] [address] Rag Washer: Sarath Olivera MD NRBC Automated 0.0 per 100 WBC Normal 0.0 [facility] Comment on above: Performed By: #### B C #### [address] [address] Rag Washer: Sarath Olivera MD Platelet mean volume (Bld) [Entitic vol] 11.8 fL Normal 8.1-13.5 [facility] Comment on above: Performed By: #### B C #### [address] [address] Rag Washer: Sarath Olivera MD Platelets (Bld) [#/Vol] 181 10*3/uL Normal 138-453 [facility] Comment on above: Performed By: #### B C #### [address] [address] Rag Washer: Sarath Olivera MD RBC (Bld) [#/Vol] 3.50 10*6/uL Low 3.95-5.11 [facility] Comment on above: Performed By: #### B C #### [address] [address] Rag Washer: Sarath Olivera MD WBC (Bld) [#/Vol] 5.8 10*3/uL Normal 3.5-11.3 [facility] Comment on above: Performed By: #### B C #### [address] [address] Rag Washer: Sarath Olivera MD PTon 02-23-2024 INR Coag (PPP) [Relative time] 1.6 {INR} Normal [facility] Comment on above: Result Comment: Therapeutic Range: Moderate Anticoagulant Intensity: INR = 2.0-3.0 High Anticoagulant Intensity: INR = 2.5-3.5 Performed By: #### B C #### [address] [address] Rag Washer: Sarath Olivera MD PT Coag (PPP) [Time] 18.8 s High 11.7-14.[address] [facility] Comment on above: Performed By: #### B C #### [address] [address] Rag Washer: Sarath Olivera MD Basic Metab w/rfx MGon 02-21 Anion gap [Moles/Vol] 7 mmol/L Low 9-16 [facility] Comment on above: Performed By: #### B C #### [address] [address] Rag Washer: Sarath Olivera MD Calcium [Mass/Vol] 8.3 mg/dL Low 8.6-10.4 [facility] Comment on above: Performed By: #### B C #### [address] [address] Rag Washer: Sarath Olivera MD Chloride [Moles/Vol] 107 mmol/L Normal 98-[address] [facility] Comment on above: Performed By: #### B C #### [address] [address] Rag Washer: Sarath Olivera MD CO2 [Moles/Vol] 28 mmol/L Normal 20-31 [facility] Comment on above: Performed By: #### B C #### [address] [address] Rag Washer: Sarath Olivera MD Creatinine [Mass/Vol] 0.9 mg/dL Normal 0.50-0.90 [facility] Comment on above: Performed By: #### B C #### [facility] [address] [place] [address] Rag Washer: Sarath Olivera MD GFR/1.73 sq M.predicted among non-blacks MDRD (S/P/Bld) [Vol rate/Area] 67 mL/min/{1.73_m2} Normal >60 [facility] Comment on above: Result Comment: These results [...] renal tubular secretion. Performed By: #### B C #### [address] [address] Rag Washer: Sarath Olivera MD Glucose [Mass/Vol] 105 mg/dL High 74-99 [facility] Comment on above: Performed By: #### B C #### [facility] [address] [place] [address] Rag Washer: Sarath Olivera MD Potassium [Moles/Vol] 4.0 mmol/L Normal 3.7-5.3 [facility] Comment on above: Performed By: #### B C #### [facility] [address] [place] [address] Rag Washer: Sarath Olivera MD Sodium [Moles/Vol] 142 mmol/L Normal 136-145 [facility] Comment on above: Performed By: #### B C #### [facility] [address] [place] [address] Rag Washer: Sarath Olivera MD Urea nitrogen [Mass/Vol] 24 mg/dL High 8-23 [facility] Comment on above: Performed By: #### B C #### [address] [address] Rag Washer: Sarath Olivera MD CBCon 02-22-2024 Erythrocyte distribution width (RBC) [Ratio] 17.2 % High 11.8-14.4 [facility] Comment on above: Performed By: #### B C #### [address] [address] Rag Washer: Sarath Olivera MD Hematocrit (Bld) [Volume fraction] 32.6 % Low 36.3-47.1 [facility] Comment on above: Performed By: #### B C #### [address] [address] Rag Washer: Sarath Olivera MD Hemoglobin (Bld) [Mass/Vol] 9.9 g/dL Low 11.9-15.1 [facility] Comment on above: Performed By: #### B C #### [address] [address] Rag Washer: Sarath Olivera MD MCH (RBC) [Entitic mass] 30.6 pg Normal 25.2-33.5 [facility] Comment on above: Performed By: #### B C #### [address] [address] Rag Washer: Sarath Olivera MD MCHC (RBC) [Mass/Vol] 30.4 g/dL Normal 28.4-34.8 [facility] Comment on above: Performed By: #### B C #### [address] [address] Rag Washer: Sarath Olivera MD MCV (RBC) [Entitic vol] 100.6 fL Normal 82.6-102.9 [facility] Comment on above: Performed By: #### B C #### [address] [address] Rag Washer: Sarath Olivera MD NRBC Automated 0.0 per 100 WBC Normal 0.0 [facility] Comment on above: Performed By: #### B C #### [address] [address] Rag Washer: Sarath Olivera MD Platelet mean volume (Bld) [Entitic vol] 12.0 fL Normal 8.1-13.5 [facility] Comment on above: Performed By: #### B C #### [address] [address] Rag Washer: Sarath Olivera MD Platelets (Bld) [#/Vol] 192 10*3/uL Normal 138-453 [facility] Comment on above: Performed By: #### B C #### [address] [address] Rag Washer: Sarath Olivera MD RBC (Bld) [#/Vol] 3.24 10*6/uL Low 3.95-5.11 [facility] Comment on above: Performed By: #### B C #### [address] [address] Rag Washer: Sarath Olivera MD WBC (Bld) [#/Vol] 8.0 10*3/uL Normal 3.5-11.3 [facility] Comment on above: Performed By: #### B C #### [address] [address] Rag Washer: Sarath Olivera MD PTon 02-22-2024 INR Coag (PPP) [Relative time] 1.6 {INR} Normal [facility] Comment on above: Result Comment: Therapeutic Range: Moderate Anticoagulant Intensity: INR = 2.0-3.0 High Anticoagulant Intensity: INR = 2.5-3.5 Performed By: #### D AU, UAMIC #### [address] [address] Rag Washer: Sarath Olivera MD PT Coag (PPP) [Time] 18.6 s High 11.7-14.[address] [facility] Comment on above: Performed By: #### D AU UAMIC #### [facility] [address] [place] [address] Rag Washer: Sarath Olivera MD Basic Metab w/rfx MGon 02-20 Anion gap [Moles/Vol] 6 mmol/L Low 9-16 [facility] Comment on above: Performed By: #### P T, BMPX, CBC ####[facility] [address] [place], [place] [address])[phone] Director: Sarath Olivera MD Calcium [Mass/Vol] 8.5 mg/dL Low 8.6-10.4 [facility] Comment on above: Performed By: #### P T, BMPX, CBC ####[facility] [address] [place], [place] [address])[phone] Director: Sarath Olivera MD Chloride [Moles/Vol] 108 mmol/L High 98-[address] [facility] Comment on above: Performed By: #### P T, BMPX, CBC ####[facility] [address] [place], [place] [id number])[phone] Director: Sarath Olivera MD CO2 [Moles/Vol] 29 mmol/L Normal 20-31 [facility] Comment on above: Performed By: #### P T, BMPX, CBC ####[facility] [address] [place], [place] [id number])[phone] Director: Sarath Olivera MD Creatinine [Mass/Vol] 0.7 mg/dL Normal 0.50-0.90 [facility] Comment on above: Performed By: #### P T, BMPX, CBC ####[facility] [address] [place], [place] [address])[phone] Director: Sarath Olivera MD GFR/1.73 sq M.predicted among non-blacks MDRD (S/P/Bld) [Vol rate/Area] 81 mL/min/{1.73_m2} Normal >60 [facility] Comment on above: Result Comment: These results [...] tubular secretion. Performed By: #### P T, BMPX, CBC ####[facility] [address] [place] [address])[phone] Director: Sarath Olivera MD Glucose [Mass/Vol] 122 mg/dL High 74-99 [facility] Comment on above: Performed By: #### P T, BMPX, CBC ####[facility] [address] [place] [address])[phone] Director: Sarath Olivera MD Potassium [Moles/Vol] 4.2 mmol/L Normal 3.7-5.3 [facility] Comment on above: Performed By: #### P T, BMPX, CBC ####[facility] [address] [place] [address] Lab Director: Sarath Olivera MD Sodium [Moles/Vol] 143 mmol/L Normal 136-145 [facility] Comment on above: Performed By: #### P T, BMPX, CBC ####[facility] [address] [place] [address] Lab Director: Sarath Olivera MD Urea nitrogen [Mass/Vol] 22 mg/dL Normal 8-23 [facility] Comment on above: Performed By: #### P T, BMPX, CBC ####[facility] [address] [place] [address])[phone] Director: Sarath Olivera MD CBCon 02-21-2024 Erythrocyte distribution width (RBC) [Ratio] 17.5 % High 11.8-14.4 [facility] Comment on above: Performed By: #### P T, BMPX, CBC ####[facility] [address] [place] [address] Lab Director: Sarath Olivera MD Hematocrit (Bld) [Volume fraction] 32.1 % Low 36.3-47.1 [facility] Comment on above: Performed By: #### P T, BMPX, CBC ####[facility] [address] [place], [place] [address])[phone] Director: Sarath Olivera MD Hemoglobin (Bld) [Mass/Vol] 9.7 g/dL Low 11.9-15.1 [facility] Comment on above: Performed By: #### P T, BMPX, CBC ####[facility] [address] [place], [place] [address])[phone] Director: Sarath Olivera MD MCH (RBC) [Entitic mass] 30.5 pg Normal 25.2-33.5 [facility] Comment on above: Performed By: #### P T, BMPX, CBC ####[facility] [address] [place], [place] [address])[phone] Director: Sarath Olivera MD MCHC (RBC) [Mass/Vol] 30.2 g/dL Normal 28.4-34.8 [facility] Comment on above: Performed By: #### P T, BMPX, CBC ####[facility] [address] [place], [place] [address])[phone] Director: Sarath Olivera MD MCV (RBC) [Entitic vol] 100.9 fL Normal 82.6-102.9 [facility] Comment on above: Performed By: #### P T, BMPX, CBC ####[facility] [address] [place] [address] Lab Director: Sarath Olivera MD NRBC Automated 0.0 per 100 WBC Normal 0.0 [facility] Comment on above: Performed By: #### P T, BMPX, CBC ####[facility] [address] [place], [place] [id number])[phone] Director: Sarath Olivera MD Platelet mean volume (Bld) [Entitic vol] 11.8 fL Normal 8.1-13.5 [facility] Comment on above: Performed By: #### P T, BMPX, CBC ####[facility] [address] [place], [place] [id number])[phone] Director: Sarath Olivera MD Platelets (Bld) [#/Vol] 183 10*3/uL Normal 138-453 [facility] Comment on above: Performed By: #### P T, BMPX, CBC ####[facility] [address] [place], [place] [id number])[phone] Director: Sarath Olivera MD RBC (Bld) [#/Vol] 3.18 10*6/uL Low 3.95-5.11 [facility] Comment on above: Performed By: #### P T, BMPX, CBC ####[facility] [address] [place] [address] [id number])[phone] Director: Sarath Olivear MD WBC (Bld) [#/Vol] 10.7 10*3/uL Normal 3.5-11.3 [facility] Comment on above: Performed By: #### P T, BMPX, CBC ####[facility] [address] [place], [place] [address])[phone] Director: Sarath Olivera MD PTon 02-21-2024 INR Coag (PPP) [Relative time] 1.6 {INR} Normal [facility] Comment on above: Result Comment: Therapeutic Range: Moderate Anticoagulant Intensity: INR = 2.0-3.0 High Anticoagulant Intensity: INR = 2.5-3.5 Performed By: #### P T, BMPX, CBC ####[facility] [address] [place], [place] [address])[phone] Director: Sarath Olivera MD PT Coag (PPP) [Time] 18.8 s High 11.7-14.[address] [facility] Comment on above: Performed By: #### P T, BMPX, CBC ####[facility] [address] [place], [place] [address])[phone] Director: Sarath Olivera MD Basic Metab w/rfx MGon 02-19 Anion gap [Moles/Vol] 6 mmol/L Low 9-16 [facility] Comment on above: Performed By: #### P T, BMPX, CBC ####[facility] [address] [place], [place] [address])[phone] Director: Sarath Olivera MD Calcium [Mass/Vol] 8.6 mg/dL Normal 8.6-10.4 [facility] Comment on above: Performed By: #### P T, BMPX, CBC ####[facility] [address] [place], [place] [address])[phone] Director: Sarath Olivera MD Chloride [Moles/Vol] 107 mmol/L Normal 98-[address] [facility] Comment on above: Performed By: #### P T, BMPX, CBC ####[facility] [address] [place], [place] [address])[phone] Director: Sarath Olivera MD CO2 [Moles/Vol] 30 mmol/L Normal 20-31 [facility] Comment on above: Performed By: #### P T, BMPX, CBC ####[facility] [address] [place], [place] [address])[phone] Director: Sarath Olivera MD Creatinine [Mass/Vol] 0.9 mg/dL Normal 0.50-0.90 [facility] Comment on above: Performed By: #### P T, BMPX, CBC ####[facility] [address] [place] [address] Lab Director: Sarath Olivera MD GFR/1.73 sq M.predicted among non-blacks MDRD (S/P/Bld) [Vol rate/Area] 64 mL/min/{1.73_m2} Normal >60 [facility] Comment on above: Result Comment: These results [...] tubular secretion. Performed By: #### P T, BMPX, CBC ####[facility] [place] [address] [phone] Director: Sarath Olivera MD Glucose [Mass/Vol] 143 mg/dL High 74-99 [facility] Comment on above: Performed By: #### P T, BMPX, CBC ####[facility] [address] [place] [address] Lab Director: Sarath Olivera MD Potassium [Moles/Vol] 4.2 mmol/L Normal 3.7-5.3 [facility] Comment on above: Performed By: #### P T, BMPX, CBC ####[facility] [address]blawk79[address] [place] [address] Lab Director: Sarath Olivera MD Sodium [Moles/Vol] 143 mmol/L Normal 136-145 [facility] Comment on above: Performed By: #### P T, BMPX, CBC ####[facility] Sllcmmftfzya1096 [place], [place] [phone] Director: Sarath Olivera MD Urea nitrogen [Mass/Vol] 20 mg/dL Normal 8-23 [facility] Comment on above: Performed By: #### P T, BMPX, CBC ####[facility] [address] [place] [address] Lab Director: Sarath Olivera MD CBCon 02-20-2024 Erythrocyte distribution width (RBC) [Ratio] 17.4 % High 11.8-14.4 [facility] Comment on above: Performed By: #### P T, BMPX, CBC ####[facility] If[address]ctyzdh[address] [place] [address] [phone] Director: Sarath Olivera MD Hematocrit (Bld) [Volume fraction] 32.6 % Low 36.3-47.1 [facility] Comment on above: Performed By: #### P T, BMPX, CBC ####[facility] [address] [place] [address] 90956[facility])[phone] Director: Sarath Olivera MD Hemoglobin (Bld) [Mass/Vol] 9.9 g/dL Low 11.9-15.1 [facility] Comment on above: Performed By: #### P T, BMPX, CBC ####[facility] [place] [facility] [address] [place] [address] 39324[facility])[phone] Director: Sarath Olivera MD MCH (RBC) [Entitic mass] 30.7 pg Normal 25.2-33.5 [facility] Comment on above: Performed By: #### P T, BMPX, CBC ####[facility] [address] [place] [address] Lab Director: Sarath Olivera MD MCHC (RBC) [Mass/Vol] 30.4 g/dL Normal 28.4-34.8 [facility] Comment on above: Performed By: #### P T, BMPX, CBC ####[facility] [address] [place] [address] Lab Director: Sarath Olivera MD MCV (RBC) [Entitic vol] 100.9 fL Normal 82.6-102.9 [facility] Comment on above: Performed By: #### P T, BMPX, CBC ####[facility] [place] [facility] [address] [place] [address] [phone] Director: Sarath Olivera MD NRBC Automated 0.0 per 100 WBC Normal 0.0 [facility] Comment on above: Performed By: #### P T, BMPX, CBC ####[facility] [place] [facility] [address] [place] [address] [phone] Director: Sarath Olivera MD Platelet mean volume (Bld) [Entitic vol] 11.6 fL Normal 8.1-13.5 [facility] Comment on above: Performed By: #### P T, BMPX, CBC ####[address] [phone] Director: Sarath Olivera MD Platelets (Bld) [#/Vol] 176 10*3/uL Normal 138-453 [facility] Comment on above: Performed By: #### P T, BMPX, CBC ####[address] [phone])[phone] Director: Sarath Olivera MD RBC (Bld) [#/Vol] 3.23 10*6/uL Low 3.95-5.11 [facility] Comment on above: Performed By: #### P T, BMPX, CBC ####[facility] [place] [facility] [address] [place] [address] [phone] Director: Sarath Olivera MD WBC (Bld) [#/Vol] 12.8 10*3/uL High 3.5-11.3 [facility] Comment on above: Performed By: #### P T, BMPX, CBC ####[facility] [place] [facility] [address] [place], [place] [phone] Director: Sarath Olivera MD PTon 02-20-2024 INR Coag (PPP) [Relative time] 1.7 {INR} Normal [facility] Comment on above: Result Comment: Therapeutic Range: Moderate Anticoagulant Intensity: INR = 2.0-3.0 High Anticoagulant Intensity: INR = 2.5-3.5 Performed By: #### P T, BMPX, CBC ####[facility] [place] [facility] [address] [place] [address] [phone] Director: Sarath Olivera MD PT Coag (PPP) [Time] 19.9 s High 11.7-14.[address] [facility] Comment on above: Performed By: #### P T, BMPX, CBC ####[facility] [address] [place] [address] 79397[facility])[phone] Director: Sarath Olivera MD Basic Metab w/rfx MGon 02-18 Anion gap [Moles/Vol] 7 mmol/L Low 9-16 [facility] Comment on above: Performed By: #### C BC, PT, BMPX ####[facility] [address] [place] [address] [phone] Director: Sarath Olivera MD Calcium [Mass/Vol] 8.3 mg/dL Low 8.6-10.4 [facility] Comment on above: Performed By: #### C BC, PT, BMPX ####[facility] [address] [place] [address] [phone] Director: Sarath Olivera MD Chloride [Moles/Vol] 106 mmol/L Normal 98-[address] [facility] Comment on above: Performed By: #### C BC, PT, BMPX ####[facility] [address]jtslwaqwng750[address] [place], [place] [phone] Director: Sarath Olivera MD CO2 [Moles/Vol] 27 mmol/L Normal 20-31 [facility] Comment on above: Performed By: #### C BC, PT, BMPX ####[facility] Wuqcinfvzepy0453 [place] [address] Lab Director: Sarath Olivera MD Creatinine [Mass/Vol] 0.8 mg/dL Normal 0.50-0.90 [facility] Comment on above: Performed By: #### C PAOLA PT, BMPX ####[facility] [address] [place] [address] Lab Director: Sarath Olivera MD GFR/1.73 sq M.predicted among non-blacks MDRD (S/P/Bld) [Vol rate/Area] 78 mL/min/{1.73_m2} Normal >60 [facility] Comment on above: Result Comment: These results [...] renal tubular secretion. Performed By: #### C PAOLA PT, BMPX ####[facility] [address] [place] [address] 67987[facility])[phone] Director: Sarath Olivera MD Glucose [Mass/Vol] 174 mg/dL High 74-99 [facility] Comment on above: Performed By: #### C PAOLA PT, BMPX ####[facility] [address] [place] [address] Lab Director: Sarath Olivera MD Potassium [Moles/Vol] 4.3 mmol/L Normal 3.7-5.3 [facility] Comment on above: Performed By: #### C PAOLA PT, BMPX ####[facility] [address] [place] [address] 11949 Lab Director: Sarath Olivera MD Sodium [Moles/Vol] 140 mmol/L Normal 136-145 [facility] Comment on above: Performed By: #### C PAOLA PT, BMPX ####[address] [address] Lab Director: Sarath Olivera MD Urea nitrogen [Mass/Vol] 14 mg/dL Normal 8-23 [facility] Comment on above: Performed By: #### C BC, PT, BMPX ####[facility] Ef[address]hrfxekd85[address] [place], [place] [phone] Director: Sarath Olivera MD CBCon 02-19-2024 Erythrocyte distribution width (RBC) [Ratio] 17.8 % High 11.8-14.4 [facility] Comment on above: Performed By: #### C BC, PT, BMPX ####[facility] [place] [facility] [address] [place] [address] [phone] Director: Sarath Olivera MD Hematocrit (Bld) [Volume fraction] 33.5 % Low 36.3-47.1 [facility] Comment on above: Performed By: #### C BC, PT, BMPX ####[facility] [place] [facility] [address] [place] [address] [phone] Director: Sarath Olivera MD Hemoglobin (Bld) [Mass/Vol] 9.7 g/dL Low 11.9-15.1 [facility] Comment on above: Performed By: #### C BC, PT, BMPX ####[facility] [address] [place] [address] [phone] Director: Sarath Olivera MD MCH (RBC) [Entitic mass] 31.1 pg Normal 25.2-33.5 [facility] Comment on above: Performed By: #### C BC, PT, BMPX ####[facility] [place] [facility] [address]14[address] [place], [place] [phone] Director: Sarath Olivera MD MCHC (RBC) [Mass/Vol] 29.0 g/dL Normal 28.4-34.8 [facility] Comment on above: Performed By: #### C BC, PT, BMPX ####[facility] [address]rvrej[address] [place], [place] [phone] Director: Sarath Olivera MD MCV (RBC) [Entitic vol] 107.4 fL High 82.6-102.9 [facility] Comment on above: Performed By: #### C BC, PT, BMPX ####[facility] [address]ub[address]oeaz[address] [place], [place] [phone] Director: Sarath Olivera MD NRBC Automated 0.0 per 100 WBC Normal 0.0 [facility] Comment on above: Performed By: #### C BC, PT, BMPX ####[facility] T[address]pcblna0072 [place], [place] [phone] Director: Sarath Olivera MD Platelet mean volume (Bld) [Entitic vol] 11.5 fL Normal 8.1-13.5 [facility] Comment on above: Performed By: #### C BC, PT, BMPX ####[facility] Fsqlanczomvz8746 [place], [place] [phone] Director: Sarath Olivera MD Platelets (Bld) [#/Vol] 165 10*3/uL Normal 138-453 [facility] Comment on above: Performed By: #### C BC, PT, BMPX ####[facility] Iphpzefmgieu2892 [place], [place] [phone] Director: Sarath Olivera MD RBC (Bld) [#/Vol] 3.12 10*6/uL Low 3.95-5.11 [facility] Comment on above: Performed By: #### C BC, PT, BMPX ####[facility] Qhcygmuhhkry5[address] [place], [place] [phone] Director: Sarath Olivera MD WBC (Bld) [#/Vol] 10.3 10*3/uL Normal 3.5-11.3 [facility] Comment on above: Performed By: #### C BC, PT, BMPX ####[facility] [place] [facility] [address] [place] [address]18 Lab Director: Sarath Olivera MD PTon INR Coag (PPP) [Relative time] 1.7 {INR} Normal [facility] Comment on above: Result Comment: Therapeutic Range: Moderate Anticoagulant Intensity: INR = 2.0-3.0 High Anticoagulant Intensity: INR = 2.5-3.5 Performed By: #### C BC, PT, BMPX ####[facility] [address] [place] [address] 99963 Lab Director: Sarath Olivera MD PT Coag (PPP) [Time] 19.3 s High 11.7-14.[address] [facility] Comment on above: Performed By: #### C BC, PT, BMPX ####[address] [address])[phone] Director: Sarath Olivera MD CBC with Diffon Abs. Basophil <0.03 Normal 0.00-0.20 [facility] Comment on above: Performed By: #### B C #### [place] [address] Rag Washer: Sarath Olivera MD Abs. Eosinophil <0.03 Normal 0.00-0.44 [facility] Comment on above: Performed By: #### B C #### [facility] [place] [facility] [address] [place] [address] Rag Washer: Sarath Olivera MD Abs.Imm.Granulocyte 0.06 k/uL Normal 0.00-0.30 [facility] Comment on above: Performed By: #### B C #### [place] [address] Rag Washer: Sarath Olivera MD Abs.Neutrophil (Seg) 9.40 k/uL High 1.50-8.[address] [facility] Comment on above: Performed By: #### B C #### [address] [address] Rag Washer: Sarath Olivera MD Basophils/100 WBC (Bld) 0 % Normal 0-2 [facility] Comment on above: Performed By: #### B C #### [address] [address] Rag Washer: Sarath Olivera MD Eosinophils/100 WBC (Bld) 0 % Low 1-4 [facility] Comment on above: Performed By: #### B C #### [address] [address] Rag Washer: Sarath Olivera MD Erythrocyte distribution width (RBC) [Ratio] 17.9 % High 11.8-14.4 [facility] Comment on above: Performed By: #### B C #### [address] [address] Rag Washer: Sarath Olivera MD Hematocrit (Bld) [Volume fraction] 39.2 % Normal 36.3-47.1 [facility] Comment on above: Performed By: #### B C #### [address] [address] Rag Washer: Sarath Olivera MD Hemoglobin (Bld) [Mass/Vol] 11.9 g/dL Normal 11.9-15.1 [facility] Comment on above: Performed By: #### B C #### [address] [address] Rag Washer: Sarath Olivera MD Immature granulocytes/100 WBC (Bld) 1 % High 0 [facility] Comment on above: Performed By: #### B C #### [address] [address] Rag Washer: Sarath Olivera MD Lymphocytes (Bld) [#/Vol] 1.51 10*3/uL Normal 1.10-3.70 [facility] Comment on above: Performed By: #### B C #### [address] [address] Rag Washer: Sarath Olivera MD Lymphocytes/100 WBC (Bld) 13 % Low 24-43 [facility] Comment on above: Performed By: #### B C #### [place] [address] Rag Washer: Sarath Olivera MD MCH (RBC) [Entitic mass] 30.9 pg Normal 25.2-33.5 [facility] Comment on above: Performed By: #### B C #### [place] [address] Rag Washer: Sarath Olivera MD MCHC (RBC) [Mass/Vol] 30.4 g/dL Normal 28.4-34.8 [facility] Comment on above: Performed By: #### B C #### [place] [address] Rag Washer: Sarath Olivera MD MCV (RBC) [Entitic vol] 101.8 fL Normal 82.6-102.9 [facility] Comment on above: Performed By: #### B C #### [place] [address] Rag Washer: Sarath Olivera MD Monocytes (Bld) [#/Vol] 0.50 10*3/uL Normal 0.10-1.20 [facility] Comment on above: Performed By: #### B C #### [place] [address] Rag Washer: Sarath Olivera MD Monocytes/100 WBC (Bld) 4 % Normal 3-12 [facility] Comment on above: Performed By: #### B C #### [address] [address] Rag Washer: Sarath Olivera MD Neutrophil (Seg) 82 % High 36-65 [facility] Comment on above: Performed By: #### B C #### [address] [address] Rag Washer: Sarath Olivera MD NRBC Automated 0.0 per 100 WBC Normal 0.0 [facility] Comment on above: Performed By: #### B C #### [address] [address] Rag Washer: Sarath Olivera MD Platelet mean volume (Bld) [Entitic vol] 11.2 fL Normal 8.1-13.5 [facility] Comment on above: Performed By: #### B C #### [address] [address] Rag Washer: Sarath Olivera MD Platelets (Bld) [#/Vol] 254 10*3/uL Normal 138-453 [facility] Comment on above: Performed By: #### B C #### [address] [address] Rag Washer: Sarath Olivera MD RBC (Bld) [#/Vol] 3.85 10*6/uL Low 3.95-5.11 [facility] Comment on above: Performed By: #### B C #### [address] [address] Rag Washer: Sarath Olivera MD RBC morphology finding Nom (Bld) ANISOCYTOSIS PRESENT Normal [facility] Comment on above: Performed By: #### B C #### [address] [address] Rag Washer: Sarath Olivera MD WBC (Bld) [#/Vol] 11.5 10*3/uL High 3.5-11.3 [facility] Comment on above: Performed By: #### B C #### [address] [address] Rag Washer: Sarath Olivera MD Comp Metabolic Pr/rfx MGon 0 - Albumin [Mass/Vol] 3.6 g/dL Normal 3.5-5.2 [facility] Comment on above: Performed By: #### B C #### [address] [address] Rag Washer: Sarath Olivera MD Albumin/Glob Ratio 1.0 Normal 1.0-2.5 [facility] Comment on above: Performed By: #### B C #### [address] [address] Rag Washer: Sarath Olivera MD Alkaline Phos 131 U/L High 35-104 [facility] Comment on above: Performed By: #### B C #### [address] [address] Rag Washer: Sarath Olivera MD ALT [Catalytic activity/Vol] 7 U/L Low 10-35 [facility] Comment on above: Performed By: #### B C #### [address] [address] Rag Washer: Sarath Olivera MD Anion gap [Moles/Vol] 13 mmol/L Normal 9-16 [facility] Comment on above: Performed By: #### B C #### [address] [address] Rag Washer: Sarath Olivera MD AST [Catalytic activity/Vol] 26 U/L Normal 10-35 [facility] Comment on above: Performed By: #### B C #### [address] [address] Rag Washer: Sarath Olivera MD Bilirubin [Mass/Vol] 0.5 mg/dL Normal 0.00-1.[address] [facility] Comment on above: Performed By: #### B C #### [address] [address] Rag Washer: Sarath Olivera MD Calcium [Mass/Vol] 9.0 mg/dL Normal 8.6-10.4 [facility] Comment on above: Performed By: #### B C #### [address] [address] Rag Washer: Sarath Olivera MD Chloride [Moles/Vol] 103 mmol/L Normal 98-[address] [facility] Comment on above: Performed By: #### B C #### [address] [address] Rag Washer: Sarath Olivera MD CO2 [Moles/Vol] 27 mmol/L Normal 20-31 [facility] Comment on above: Performed By: #### B C #### [address] [address] Rag Washer: Sarath Olivera MD Creatinine [Mass/Vol] 0.9 mg/dL Normal 0.50-0.90 [facility] Comment on above: Performed By: #### B C #### [address] [address] Rag Washer: Sarath Olivera MD GFR/1.73 sq M.predicted among non-blacks MDRD (S/P/Bld) [Vol rate/Area] 61 mL/min/{1.73_m2} Normal >60 [facility] Comment on above: Result Comment: These results [...] renal tubular secretion. Performed By: #### B C #### [address] [address] Rag Washer: Sarath Olivera MD Glucose [Mass/Vol] 240 mg/dL High 74-99 [facility] Comment on above: Performed By: #### B C #### [address] [address] Rag Washer: Sarath Olivera MD Potassium [Moles/Vol] 4.4 mmol/L Normal 3.7-5.3 [facility] Comment on above: Performed By: #### B C #### [address] [address] Rag Washer: Sarath Olivera MD Protein [Mass/Vol] 6.4 g/dL Low 6.6-8.7 [facility] Comment on above: Performed By: #### B C #### [address] [address] Rag Washer: Sarath Olivera MD Sodium [Moles/Vol] 143 mmol/L Normal 136-145 [facility] Comment on above: Performed By: #### B C #### [address] [address] Rag Washer: Sarath Olivera MD Urea nitrogen [Mass/Vol] 10 mg/dL Normal 8-23 [facility] Comment on above: Performed By: #### B C #### [address] [address] Rag Washer: Sarath Olivera MD PTon 02-18-2024 INR Coag (PPP) [Relative time] 1.4 {INR} Normal [facility] Comment on above: Result Comment: Therapeutic Range: Moderate Anticoagulant Intensity: INR = 2.0-3.0 High Anticoagulant Intensity: INR = 2.5-3.5 Performed By: #### B C #### [address] [address] Rag Washer: Sarath Olivera MD PT Coag (PPP) [Time] 17.1 s High 11.7-14.[address] [facility] Comment on above: Performed By: #### B C #### [address] [id number] Rag Washer: Sarath Olivera MD Type + Screenon 02-18-2024 Type + Screen Sample Expiration 02/20/2024,2359 Arm Band Number [id number] ABO/Rh(D) O POSITIVE Antibody Screen NEGATIVE Unit Number [id number] Blood Component Type Leukocyte Reduced Red Cell Unit Division 00 Status of Unit REL FROM ALLOC Transfusion Status OK TO TRANSFUSE Crossmatch Result COMPATIBLE Unit Number [id number] Blood Component Type Leukocyte Reduced Red Cell Unit Division 00 Status of Unit REL FROM ALLOC Transfusion Status OK TO TRANSFUSE Crossmatch Result COMPATIBLE Normal [facility] Comment on above: Performed By: #### T YS #### [address] [address] Rag Washer: Sarath Olivera MD XR SHOULDER LEFT (MIN [...] Lucian Dee MD 02/18/24 Final result Normal [facility] APTTon 02-17-2024 aPTT Coag (Bld) [Time] 28.7 s Normal 23.0-36.5 [facility] Comment on above: Result Comment: IV Heparin Therapy Range: 66.0-92.0 sec Performed By: #### D BOOKER UAMIC #### [address] [address] Rag Washer: Sarath Olivera MD aPTT Coag (Bld) [Time] 30.9 s Normal 23.0-36.5 [facility] Comment on above: Result Comment: IV Heparin Therapy Range: 66.0-92.0 sec Performed By: #### B C #### [address] [address] Rag Washer: Saraht Olivera MD FFP, Transfuseon 02-17-2024 FFP, Transfuse Unit Number [id number] Blood Component Type FRESH PLASMA Unit Division 00 Status of Unit TRANSFUSED Transfusion Status OK TO TRANSFUSE [facility] Comment on above: Performed By: #### B C #### [address] [address] Rag Washer: Sarath Olivera MD FFP, Transfuse Unit Number [id number] Blood Component Type FRESH PLASMA Unit Division 00 Status of Unit TRANSFUSED Transfusion Status OK TO TRANSFUSE [facility] Comment on above: Performed By: #### T FFP #### [place] [address] Rag Washer: Sarath Olivera MD PTon 02-17-2024 INR Coag (PPP) [Relative time] 1.5 {INR} Normal [facility] Comment on above: Result Comment: Therapeutic Range: Moderate Anticoagulant Intensity: INR = 2.0-3.0 High Anticoagulant Intensity: INR = 2.5-3.5 Performed By: #### D BOOKER UAMIC #### [address] [address] Rag Washer: Sarath Olivera MD PT Coag (PPP) [Time] 17.4 s High 11.7-14.[address] [facility] Comment on above: Performed By: #### D AU, UAMIC #### [employer] [address] [place], [place] [phone] Rag Washer: Sarath Olivera MD INR Coag (PPP) [Relative time] 1.7 {INR} Normal [facility] Comment on above: Result Comment: Therapeutic Range: Moderate Anticoagulant Intensity: INR = 2.0-3.0 High Anticoagulant Intensity: INR = 2.5-3.5 Performed By: #### B C #### [employer] [address] [place] [address] [phone] Rag Washer: Sarath Olivera MD PT Coag (PPP) [Time] 19.8 s High 11.7-14.[address] [facility] Comment on above: Performed By: #### B C #### [employer] [address] [place] [address] Rag Washer: Sarath Olivera MD PT (Whole Blood)on 4 Intl. Normal. Ratio 2.0 Normal [facility] Comment on above: Result Comment: Therapeutic Range: Moderate Anticoagulant Intensity: INR = 2.0-3.0 High Anticoagulant Intensity: INR = 2.5-3.5 PT Coag (PPP) [Time] 23.6 s High 10.4-14.[address] [facility] CBC with Auto Differentialon 02-02-2024 Basophils (Bld) [#/Vol] [facility] Basophils/100 WBC (Bld) 0 % 0 - 2 % [facility] Eosinophils (Bld) [#/Vol] 0.08 10*3/uL [facility] Eosinophils/100 WBC (Bld) 1 % 1 - 4 % [facility] Erythrocyte distribution width (RBC) [Ratio] 16.1 % High 11.8 - 14.4 % [facility] Hematocrit (Bld) [Volume fraction] 33.7 % Low 36.3 - 47.1 % [facility] Hemoglobin (Bld) [Mass/Vol] 10.4 g/dL Low 11.9 - 15.1 g/dL [facility] Immature granulocytes (Bld) [#/Vol] [facility] Immature granulocytes/100 WBC (Bld) 0 % 0 [facility] Interpretation and review of laboratory results Abnormal [facility] Lymphocytes/100 WBC (Bld) 34 % 24 - 43 % [facility] Lymphocytes/100 WBC (Bld) 1.89 % [facility] MCH (RBC) [Entitic mass] 30.6 pg 25.2 - 33.5 pg [facility] MCHC (RBC) [Mass/Vol] 30.9 g/dL 28.4 - 34.8 g/dL [facility] MCV (RBC) [Entitic vol] 99.1 fL 82.6 - 102.9 fL [facility] Monocytes/100 WBC (Bld) 8 % 3 - 12 % [facility] Monocytes/100 WBC (Bld) 0.44 % [facility] Neutrophils/100 WBC (Bld) 57 % 36 - 65 % [facility] Nucleated RBC/100 WBC (Bld) [Ratio] 0.0 % 0.0 per 100 WBC [facility] Platelet mean volume (Bld) [Entitic vol] 11.6 fL 8.1 - 13.5 fL [facility] Platelets (Bld) [#/Vol] 250 10*3/uL [facility] RBC (Bld) [#/Vol] 3.40 10*6/uL Low 3.95 - 5.1 1 m/uL [facility] Segmented neutrophils/100 WBC (Bld) 3.17 % [facility] WBC other (Bld) [#/Vol] 5.6 [facility] CBC with Diffon 02-02-2024 Abs. Basophil <0.03 Normal 0.00-0.[address] [facility] Comment on above: Performed By: #### C P, CDP #### [facility] [address] [place] [address] Rag Washer: Concepción De La Torre MD Abs.Imm.Granulocyte <0.03 Normal 0.00-0.30 [facility] Comment on above: Performed By: #### C P, CDP #### [address] [place], [id number] Rag Washer: Concepción De La Torre MD Abs.Neutrophil (Seg) 3.17 k/uL Normal 1.50-8.10 [facility] Comment on above: Performed By: #### C P, CDP #### [address] [place], [id number] Rag Washer: Concepción De La Torre MD Basophils/100 WBC (Bld) 0 % Normal 0-2 [facility] Comment on above: Performed By: #### C P, CDP #### [address] [place] [address] Rag Washer: Concepción De La Torre MD Eosinophils (Bld) [#/Vol] 0.08 10*3/uL Normal 0.00-0.44 [facility] Comment on above: Performed By: #### C P, CDP #### [address] [place], [place] [address] Rag Washer: Concepción De La Torre MD Eosinophils/100 WBC (Bld) 1 % Normal 1-4 [facility] Comment on above: Performed By: #### C P, CDP #### [address] [place], [id number] Rag Washer: Concepción De La Torre MD Erythrocyte distribution width (RBC) [Ratio] 16.1 % High 11.8-14.4 [facility] Comment on above: Performed By: #### C P, CDP #### [address] [place] [id number] Rag Washer: Concepción De La Torre MD Hematocrit (Bld) [Volume fraction] 33.7 % Low 36.3-47.1 [facility] Comment on above: Performed By: #### C P, CDP #### [facility] [address] [place] [address] Rag Washer: Concepción De La Torre MD Hemoglobin (Bld) [Mass/Vol] 10.4 g/dL Low 11.9-15.1 [facility] Comment on above: Performed By: #### C P, CDP #### [address] [place], [place] [id number] Rag Washer: Concepción De La Torre MD Immature granulocytes/100 WBC (Bld) 0 % Normal 0 [facility] Comment on above: Performed By: #### C P, CDP #### [address] [place] [address] Rag Washer: Concepción De La Torre MD Lymphocytes (Bld) [#/Vol] 1.89 10*3/uL Normal 1.10-3.70 [facility] Comment on above: Performed By: #### C P, CDP #### [address] [place], [place] [id number] Rag Washer: Concepción De La Torre MD Lymphocytes/100 WBC (Bld) 34 % Normal 24-43 [facility] Comment on above: Performed By: #### C P, CDP #### [address] [place] [address] Rag Washer: Concepción De La Torre MD MCH (RBC) [Entitic mass] 30.6 pg Normal 25.2-33.5 [facility] Comment on above: Performed By: #### C P, CDP #### [address] [place] [address] Rag Washer: Concepción De La Torre MD MCHC (RBC) [Mass/Vol] 30.9 g/dL Normal 28.4-34.8 [facility] Comment on above: Performed By: #### C P, CDP #### [address] [place] [address] Rag Washer: Concepción De La Torre MD MCV (RBC) [Entitic vol] 99.1 fL Normal 82.6-102.9 [facility] Comment on above: Performed By: #### C P, CDP #### [facility] [address] [place] [address] Dr. [place], [place] [phone] Rag Washer: Concepción De La Torre MD Monocytes (Bld) [#/Vol] 0.44 10*3/uL Normal 0.10-1.20 [facility] Comment on above: Performed By: #### C P, CDP #### [address] [place], [place] [id number] Rag Washer: Concepción De La Torre MD Monocytes/100 WBC (Bld) 8 % Normal 3-12 [facility] Comment on above: Performed By: #### C P, CDP #### [address] [place], [id number] Rag Washer: Concepción De La Torre MD Neutrophil (Seg) 57 % Normal 36-65 [facility] Comment on above: Performed By: #### C P, CDP #### [address] [place], [place] [phone] Rag Washer: Concepción De La Torre MD NRBC Automated 0.0 per 100 WBC Normal 0.0 [facility] Comment on above: Performed By: #### C P, CDP #### [address] [place], [id number] Rag Washer: Concepción De La Torre MD Platelet mean volume (Bld) [Entitic vol] 11.6 fL Normal 8.1-13.5 [facility] Comment on above: Performed By: #### C P, CDP #### [address] [place], [place] [phone] Rag Washer: Concepción De La Torre MD Platelets (Bld) [#/Vol] 250 10*3/uL Normal 138-453 [facility] Comment on above: Performed By: #### C P, CDP #### [facility] [address] [place], [place] [phone] Rag Washer: Concepción De La Torre MD RBC (Bld) [#/Vol] 3.40 10*6/uL Low 3.95-5.11 [facility] Comment on above: Performed By: #### C P, CDP #### [facility] [address] [place], [place] [phone] Rag Washer: Concepción De La Torre MD WBC (Bld) [#/Vol] 5.6 10*3/uL Normal 3.5-11.3 [facility] Comment on above: Performed By: #### C P, CDP #### [facility] [address] [place], [place] [phone] Rag Washer: Concepción De La Torre MD Comp Metabolic Profon 2023 Albumin [Mass/Vol] 2.7 g/dL Low 3.5-5.2 [facility] Comment on above: Performed By: #### C P, CDP #### [facility] [address] [place], [place] [phone] Rag Washer: Concepción De La Torre MD Albumin/Glob Ratio 1.0 Normal 1.0-2.5 [facility] Comment on above: Performed By: #### C P, CDP #### [facility] [address] [place], [place] [phone] Rag Washer: Concepción De La Torre MD Alkaline Phos 116 U/L High 35-[address] [facility] Comment on above: Performed By: #### C P, CDP #### [facility] [address] [place] [address] Rag Washer: Concepción De La Torre MD ALT [Catalytic activity/Vol] 10 U/L Normal 5-33 [facility] Comment on above: Performed By: #### C P, CDP #### [facility] [address] [place], [place] [phone] Rag Washer: Concepción De La Torre MD Anion gap [Moles/Vol] 11 mmol/L Normal 9-17 [facility] Comment on above: Performed By: #### C P, CDP #### [facility] [address] [place], [place] [phone] Rag Washer: Concepción De La Torre MD AST [Catalytic activity/Vol] 21 U/L Normal <32 [facility] Comment on above: Performed By: #### C P, CDP #### [facility] [address] [place], [place] [phone] Rag Washer: Concepción D eLa Torre MD Bilirubin [Mass/Vol] 0.4 mg/dL Normal 0.3-1.2 [facility] Comment on above: Performed By: #### C P, CDP #### [facility] [address] [place] [address] Dr. [place], [place] [phone] Rag Washer: Concepción De La Torre MD BUN/CRE Ratio 15 Normal 9-[address] [facility] Comment on above: Performed By: #### C P, CDP #### [address] [place], [place] [phone] Rag Washer: Concepción De La Torre MD Calcium [Mass/Vol] 7.8 mg/dL Low 8.6-10.4 [facility] Comment on above: Performed By: #### C P, CDP #### [facility] [address] [place], [place] [phone] Rag Washer: Concepción De La Torre MD Chloride [Moles/Vol] 108 mmol/L High 98-107 [facility] Comment on above: Performed By: #### C P, CDP #### [facility] [address] [place], [place] 7241583 Rag Washer: Concepción De La Torre MD CO2 [Moles/Vol] 24 mmol/L Normal 20-31 [facility] Comment on above: Performed By: #### C P, CDP #### [facility] [address] [place] [address] Rag Washer: Concepción De La Torre MD Creatinine [Mass/Vol] 0.8 mg/dL Normal 0.5-0.9 [facility] Comment on above: Performed By: #### C P, CDP #### [facility] [address] [place] [address] Rag Washer: Concepción De La Torre MD GFR/1.73 sq M.predicted among non-blacks MDRD (S/P/Bld) [Vol rate/Area] 73 mL/min/{1.73_m2} Normal >60 [facility] Comment on above: Result Comment: These [...] Performed By: #### C P, CDP #### [facility] [address] [place] [address] Rag Washer: Concepción De La Torre MD Glucose [Mass/Vol] 123 mg/dL High 70-99 [facility] Comment on above: Performed By: #### C P, CDP #### [facility] [address] [place] [address] Rag Washer: Concepción De La Torre MD Potassium [Moles/Vol] 4.0 mmol/L Normal 3.7-5.3 [facility] Comment on above: Performed By: #### C P, CDP #### [facility] [address] [place] [address] Rag Washer: Concepción De La Torre MD Protein [Mass/Vol] 5.4 g/dL Low 6.4-8.3 [facility] Comment on above: Performed By: #### C P, CDP #### [facility] [address] [place] [address] Rag Washer: Concepción De La Torre MD Sodium [Moles/Vol] 143 mmol/L Normal 135-144 [facility] Comment on above: Performed By: #### C P, CDP #### [facility] [address] [place] [address] Rag Washer: Concepción De La Torre MD Urea nitrogen [Mass/Vol] 12 mg/dL Normal 8-23 [facility] Comment on above: Performed By: #### C P, CDP #### [facility] [address] [place] [address] Rag Washer: Concepción De La Torre MD Comprehensive Metabolic Pane [facility] 02-02-2024 Albumin [Mass/Vol] 2.7 g/dL Low 3.5 - 5.2 g/dL [facility] Albumin/Globulin [Mass ratio] 1.0 {ratio} 1.0 - 2.5 [facility] ALP [Catalytic activity/Vol] 116 U/L High 35 - 104 U/L [facility] ALT [Catalytic activity/Vol] 10 U/L 5 - 33 U/L [facility] Anion gap [Moles/Vol] 11 mmol/L 9 - 17 mmol/L [facility] AST [Catalytic activity/Vol] 21 U/L NINF - 32 U/L [facility] Bilirubin [Mass/Vol] 0.4 mg/dL 0.3 - 1 .2 mg/dL [facility] Calcium [Mass/Vol] 7.8 mg/dL Low 8.6 - 10. 4 mg/dL [facility] Chloride [Moles/Vol] 108 mmol/L High 98 - 10 7 mmol/L [facility] CO2 [Moles/Vol] 24 mmol/L 20 - 31 mmol/L [facility] Creatinine [Mass/Vol] 0.8 mg/dL 0.5 - 0.9 mg/dL [facility] Est, Glom Filt Rate 73 - PINF [facility] Comment on above: These results are not [...] 123 mg/dL High 70 - 99 mg/dL [facility] Interpretation and review of laboratory results Abnormal [facility] Potassium [Moles/Vol] 4.0 mmol/L 3.7 - 5.3 mmol/L [facility] Protein [Mass/Vol] 5.4 g/dL Low 6.4 - 8.3 g/dL [facility] Sodium [Moles/Vol] 143 mmol/L 135 - 144 mmol/L [facility] Urea nitrogen [Mass/Vol] 12 mg/dL 8 - 23 mg/dL [facility] Urea nitrogen/Creatinine [Mass ratio] 15 mg/mg 9 - [address] [facility] [address] HEAD WO CONTRASTon 2023 [...] ORDERING SYSTEM PROVIDED HISTORY: SDH (subdural hematoma) ([facility]) TECHNOLOGIST PROVIDED HISTORY: F/U SDH FINDINGS: BRAIN/VENTRICLES: [...] acute intracranial process identified. Interpreted by: Renny Rodriguez MD Signed by: Renny Rodriguez MD 01/27/24 Final result Normal [facility] CBC with Diffon 01-26-2024 Abs. Basophil <0.03 Normal 0.00-0.[address] [facility] Comment on above: Performed By: #### C DP, CMPF #### [address] [place] [address] Rag Washer: Concepción De La Torre MD Abs.Imm.Granulocyte 0.03 k/uL Normal 0.00-0.30 [facility] Comment on above: Performed By: #### C DP, CMPF #### [address] [place] [address] Rag Washer: Concepción De La Torre MD Abs.Neutrophil (Seg) 2.15 k/uL Normal 1.50-8.10 [facility] Comment on above: Performed By: #### C DP, CMPF #### [address] [place] [address] Rag Washer: Concepción De La Torre MD Basophils/100 WBC (Bld) 1 % Normal 0-2 [facility] Comment on above: Performed By: #### C DP, CMPF #### [address] [place] [address] Rag Washer: Concepción De La Torre MD Eosinophils (Bld) [#/Vol] 0.04 10*3/uL Normal 0.00-0.44 [facility] Comment on above: Performed By: #### C DP, CMPF #### [address] [place] [phone] Rag Washer: Concepción De La Torre MD Eosinophils/100 WBC (Bld) 1 % Normal 1-4 [facility] Comment on above: Performed By: #### C DP, CMPF #### [address] [place] [address] Rag Washer: Concepción De La Torre MD Erythrocyte distribution width (RBC) [Ratio] 16.3 % High 11.8-14.4 [facility] Comment on above: Performed By: #### C DP, CMPF #### [facility] [address] [place] [address] Rag Washer: Concepción De La Torre MD Hematocrit (Bld) [Volume fraction] 30.9 % Low 36.3-47.1 [facility] Comment on above: Performed By: #### C DP, CMPF #### [address] [place] [address] Rag Washer: Concepción De La Torre MD Hemoglobin (Bld) [Mass/Vol] 9.7 g/dL Low 11.9-15.1 [facility] Comment on above: Performed By: #### C DP, CMPF #### [facility] [address] [place] [address] Dr. [place] [phone] Rag Washer: Concepción De La Torre MD Immature granulocytes/100 WBC (Bld) 1 % High 0 [facility] Comment on above: Performed By: #### C DP, CMPF #### [address] [place], [id number] Rag Washer: Concepción De La Torre MD Lymphocytes (Bld) [#/Vol] 0.79 10*3/uL Low 1.10-3.70 [facility] Comment on above: Performed By: #### C DP, CMPF #### [facility] [address] [place], [id number] Rag Washer: Concepción De La Torre MD Lymphocytes/100 WBC (Bld) 22 % Low 24-43 [facility] Comment on above: Performed By: #### C DP, CMPF #### [facility] [address] [place], [id number] Rag Washer: Concepción De La Torre MD MCH (RBC) [Entitic mass] 31.4 pg Normal 25.2-33.5 [facility] Comment on above: Performed By: #### C DP, CMPF #### [facility] [address] [place] [address] [place] [address] Rag Washer: Concepción De La Torre MD MCHC (RBC) [Mass/Vol] 31.4 g/dL Normal 28.4-34.8 [facility] Comment on above: Performed By: #### C DP, CMPF #### [facility] [address] [place] [address] [place] [address] Rag Washer: Concepción De La Torre MD MCV (RBC) [Entitic vol] 100.0 fL Normal 82.6-102.9 [facility] Comment on above: Performed By: #### C DP, CMPF #### [address] [place] [address] Rag Washer: Concepción De La Torre MD Monocytes (Bld) [#/Vol] 0.49 10*3/uL Normal 0.10-1.20 [facility] Comment on above: Performed By: #### C DP, CMPF #### [address] [place] [address] Rag Washer: Concepción De La Torre MD Monocytes/100 WBC (Bld) 14 % High 3-12 [facility] Comment on above: Performed By: #### C DP, CMPF #### [facility] [address] [place] [address] [place] [address] Rag Washer: Concepción De La Torre MD Neutrophil (Seg) 61 % Normal 36-65 [facility] Comment on above: Performed By: #### C DP, CMPF #### [facility] [address] [place], [place] [phone] Rag Washer: Concepción De La Torre MD NRBC Automated 0.0 per 100 WBC Normal 0.0 [facility] Comment on above: Performed By: #### C DP, CMPF #### [facility] [address] [place], [place] [phone] Rag Washer: Concepción De La Torre MD Platelet mean volume (Bld) [Entitic vol] 11.5 fL Normal 8.1-13.5 [facility] Comment on above: Performed By: #### C DP, CMPF #### [facility] [address] [place], [place] [phone] Rag Washer: Concepción De La Torre MD Platelets (Bld) [#/Vol] 271 10*3/uL Normal 138-453 [facility] Comment on above: Performed By: #### C DP, CMPF #### [facility] [address] [place], [place] [phone] Rag Washer: Concepción De La Torre MD RBC (Bld) [#/Vol] 3.09 10*6/uL Low 3.95-5.11 [facility] Comment on above: Performed By: #### C DP, CMPF #### [facility] [address] [place], [place] [phone] Rag Washer: Concepción De La Torre MD WBC (Bld) [#/Vol] 3.5 10*3/uL Normal 3.5-11.3 [facility] Comment on above: Performed By: #### C DP, CMPF #### [facility] [address] [place], [place] [phone] Rag Washer: Concepción De La Torre MD Comp Metabol,Fastingon 01-25 -2023 Albumin [Mass/Vol] 2.6 g/dL Low 3.5-5.2 [facility] Comment on above: Performed By: #### C DP, CMPF #### [facility] [address] [place], [place] [phone] Rag Washer: Concepción De La Torre MD Albumin/Glob Ratio 1.1 Normal 1.0-2.5 [facility] Comment on above: Performed By: #### C DP, CMPF #### [facility] [address] [place], [place] [phone] Rag Washer: Concepción De La Torre MD Alkaline Phos 92 U/L Normal 35-[address] [facility] Comment on above: Performed By: #### C DP, CMPF #### [facility] [address] [place], [place] [phone] Rag Washer: Concepción De La Torre MD ALT [Catalytic activity/Vol] 18 U/L Normal 5-33 [facility] Comment on above: Performed By: #### C DP, CMPF #### [facility] [address] [place], [place] [phone] Rag Washer: Concepción De La Torre MD Anion gap [Moles/Vol] 8 mmol/L Low 9-17 [facility] Comment on above: Performed By: #### C DP, CMPF #### [facility] [address] [place], [place] 1445483 Rag Washer: Concepción De La Torre MD AST [Catalytic activity/Vol] 23 U/L Normal <32 [facility] Comment on above: Performed By: #### C DP, CMPF #### [facility] [address] [place], [place] [phone] Rag Washer: Concepción De La Torre MD Bilirubin [Mass/Vol] 0.5 mg/dL Normal 0.3-1.2 [facility] Comment on above: Performed By: #### C DP, CMPF #### [facility] [address] [place], [place] 1129683 Rag Washer: Concepción De La Torre MD BUN/CRE Ratio 19 Normal 9-[address] [facility] Comment on above: Performed By: #### C DP, CMPF #### [facility] [address] [place], [place] [phone] Rag Washer: Concepción De La Torre MD Calcium [Mass/Vol] 7.9 mg/dL Low 8.6-10.4 [facility] Comment on above: Performed By: #### C DP, CMPF #### [facility] [address] [place], [place] [phone] Rag Washer: Concepción De La Torre MD Chloride [Moles/Vol] 105 mmol/L Normal 98-107 [facility] Comment on above: Performed By: #### C DP, CMPF #### [facility] [address] [place] [address] Rag Washer: Concepción De La Torre MD CO2 [Moles/Vol] 27 mmol/L Normal 20-31 [facility] Comment on above: Performed By: #### C DP, CMPF #### [facility] [address] [place] [address] Rag Washer: Concepción De La Torre MD Creatinine [Mass/Vol] 0.8 mg/dL Normal 0.5-0.9 [facility] Comment on above: Performed By: #### C DP, CMPF #### [facility] [address] [place] [address] Dr. [place], [place] [phone] Rag Washer: Concepción De La Torre MD GFR/1.73 sq M.predicted among non-blacks MDRD (S/P/Bld) [Vol rate/Area] 73 mL/min/{1.73_m2} Normal >60 [facility] Comment on above: Result Comment: These [...] Performed By: #### C DP, CMPF #### [facility] [address] [place] [address] Rag Washer: Concepción De La Torre MD Glucose [Mass/Vol] 90 mg/dL Normal 70-99 [facility] Comment on above: Performed By: #### C DP, CMPF #### [facility] [address] [place], [place] [phone] Rag Washer: Concepción De La Torre MD Potassium [Moles/Vol] 4.1 mmol/L Normal 3.7-5.3 [facility] Comment on above: Performed By: #### C DP, CMPF #### [facility] [address] [place], [place] [phone] Rag Washer: Concepción De La Torre MD Protein [Mass/Vol] 5.0 g/dL Low 6.4-8.3 [facility] Comment on above: Performed By: #### C DP, CMPF #### [address] [place], [place] [phone] Rag Washer: Concepción De La Torre MD Sodium [Moles/Vol] 140 mmol/L Normal 135-144 [facility] Comment on above: Performed By: #### C DP, CMPF #### [address] [place], [place] [phone] Rag Washer: Concepción De La Torre MD Urea nitrogen [Mass/Vol] 15 mg/dL Normal 8-23 [facility] Comment on above: Performed By: #### C DP, CMPF #### [facility] [address] [place] [address] Dr. [place], [place] [phone] Rag Washer: Concepción De La Torre MD CBC with Diffon 01-19-2024 Abs. Basophil 0.03 k/uL Normal 0.00-0.[address] [facility] Comment on above: Performed By: #### C DP, CP #### [facility] [address] [place] [address] Rag Washer: Concepción De La Torre MD Abs.Imm.Granulocyte 0.05 k/uL Normal 0.00-0.30 [facility] Comment on above: Performed By: #### C DP, CP #### [address] [place], [place] [address] Rag Washer: Concepción De La Torre MD Abs.Neutrophil (Seg) 5.33 k/uL Normal 1.50-8.10 [facility] Comment on above: Performed By: #### C DP, CP #### [address] [place], [place] [address] Rag Washer: Concepción De La Torre MD Basophils/100 WBC (Bld) 0 % Normal 0-2 [facility] Comment on above: Performed By: #### C DP, CP #### [address] [place] [address] Rag Washer: Concepción De La Torre MD Eosinophils (Bld) [#/Vol] 0.07 10*3/uL Normal 0.00-0.44 [facility] Comment on above: Performed By: #### C DP, CP #### [address] [place] [address] Rag Washer: Concepción De La Torre MD Eosinophils/100 WBC (Bld) 1 % Normal 1-4 [facility] Comment on above: Performed By: #### C DP, CP #### [address] [place], [place] [address] Rag Washer: Concepción De La Torre MD Erythrocyte distribution width (RBC) [Ratio] 16.6 % High 11.8-14.4 [facility] Comment on above: Performed By: #### C DP, CP #### [address] [place] [address] Rag Washer: Concepción De La Torre MD Hematocrit (Bld) [Volume fraction] 30.7 % Low 36.3-47.1 [facility] Comment on above: Performed By: #### C DP, CP #### [address] [place], [place] 6231483 Rag Washer: Concepción De La Torre MD Hemoglobin (Bld) [Mass/Vol] 9.7 g/dL Low 11.9-15.1 [facility] Comment on above: Performed By: #### C DP, CP #### [facility] [address] [place], [place] [phone] Rag Washer: Concepción De La Torre MD Immature granulocytes/100 WBC (Bld) 1 % High 0 [facility] Comment on above: Performed By: #### C DP, CP #### [facility] [address] [place], [place] [phone] Rag Washer: Concepción De La Torre MD Lymphocytes (Bld) [#/Vol] 1.11 10*3/uL Normal 1.10-3.70 [facility] Comment on above: Performed By: #### C DP, CP #### [facility] [address] [place] [address] Dr. [place], [id number] Rag Washer: Concepción De La Torre MD Lymphocytes/100 WBC (Bld) 15 % Low 24-43 [facility] Comment on above: Performed By: #### C DP, CP #### [address] [place], [place] [phone] Rag Washer: Concepción De La Torre MD MCH (RBC) [Entitic mass] 31.1 pg Normal 25.2-33.5 [facility] Comment on above: Performed By: #### C DP, CP #### [facility] [address] [place] [address] Dr. [place], [place] [phone] Rag Washer: Concepción De La Torre MD MCHC (RBC) [Mass/Vol] 31.6 g/dL Normal 28.4-34.8 [facility] Comment on above: Performed By: #### C DP, CP #### [facility] [address] [place] [address] [place] [address] Rag Washer: Concepción De La Torre MD MCV (RBC) [Entitic vol] 98.4 fL Normal 82.6-102.9 [facility] Comment on above: Performed By: #### C DP, CP #### [facility] [address] [place], [id number] Rag Washer: Concepción De La Torre MD Monocytes (Bld) [#/Vol] 0.95 10*3/uL Normal 0.10-1.20 [facility] Comment on above: Performed By: #### C DP, CP #### [facility] [address] [place], [place] [address] Rag Washer: Concepción De La Torre MD Monocytes/100 WBC (Bld) 13 % High 3-12 [facility] Comment on above: Performed By: #### C DP, CP #### [address] [place], [place] [address] Rag Washer: Concepción De La Torre MD Neutrophil (Seg) 71 % High 36-65 [facility] Comment on above: Performed By: #### C DP, CP #### [address] Mendez, [place] [address] Rag Washer: Concepción De La Torre MD NRBC Automated 0.0 per 100 WBC Normal 0.0 [facility] Comment on above: Performed By: #### C DP, CP #### [address] Mendez, [place] [address] Rag Washer: Concepción De La Torre MD Platelet mean volume (Bld) [Entitic vol] 11.9 fL Normal 8.1-13.5 [facility] Comment on above: Performed By: #### C DP, CP #### [address] Mendez, [id number] Rag Washer: Concepción De La Torre MD Platelets (Bld) [#/Vol] 249 10*3/uL Normal 138-453 [facility] Comment on above: Performed By: #### C DP, CP #### [facility] [address] [place], [place] [id number] Rag Washer: Concepción De La Torre MD RBC (Bld) [#/Vol] 3.12 10*6/uL Low 3.95-5.11 [facility] Comment on above: Performed By: #### C DP, CP #### [facility] [address] [place], [place] [phone] Rag Washer: Concepción De La Torre MD WBC (Bld) [#/Vol] 7.5 10*3/uL Normal 3.5-11.3 [facility] Comment on above: Performed By: #### C DP, CP #### [address] [place]endez, [place] [id number] Rag Washer: Concepción De La Torre MD Comp Metabolic Profon 2023 Albumin [Mass/Vol] 2.6 g/dL Low 3.5-5.2 [facility] Comment on above: Performed By: #### C DP, CP #### [address] [place]endez, [place] [id number] Rag Washer: Concepción De La Torre MD Albumin/Glob Ratio 1.2 Normal 1.0-2.5 [facility] Comment on above: Performed By: #### C DP, CP #### [facility] [address] [place], [place] [id number] Rag Washer: Concepción De La Torre MD Alkaline Phos 78 U/L Normal 35-[address] [facility] Comment on above: Performed By: #### C DP, CP #### [facility] [address] [place], [place] [phone] Rag Washer: Concepción De La Torre MD ALT [Catalytic activity/Vol] 42 U/L High 5-33 [facility] Comment on above: Performed By: #### C DP, CP #### [facility] [address] [place], [place] [phone] Rag Washer: Concepción De La Torre MD Anion gap [Moles/Vol] 5 mmol/L Low 9-17 [facility] Comment on above: Performed By: #### C DP, CP #### [facility] [address] [place], [place] [phone] Rag Washer: Concepción De La Torre MD AST [Catalytic activity/Vol] 43 U/L High <32 [facility] Comment on above: Performed By: #### C DP, CP #### [facility] [address] [place], [place] [id number] Rag Washer: Concepción De La Torre MD Bilirubin [Mass/Vol] 1.2 mg/dL Normal 0.3-1.2 [facility] Comment on above: Performed By: #### C DP, CP #### [facility] [address] [place], [place] [phone] Rag Washer: Concepción De La Torre MD BUN/CRE Ratio 27 High 9-[address] [facility] Comment on above: Performed By: #### C DP, CP #### [facility] [address] [place], [place] [phone] Rag Washer: Concepción De La Torre MD Calcium [Mass/Vol] 7.6 mg/dL Low 8.6-10.4 [facility] Comment on above: Performed By: #### C DP, CP #### [facility] [address] [place], [place] [phone] Rag Washer: Concepción De La Torre MD Chloride [Moles/Vol] 100 mmol/L Normal 98-107 [facility] Comment on above: Performed By: #### C DP, CP #### [facility] [address] [place], [place] [phone] Rag Washer: Concepción De La Torre MD CO2 [Moles/Vol] 30 mmol/L Normal 20-31 [facility] Comment on above: Performed By: #### C DP, CP #### [facility] [address] [place] [address] Rag Washer: Concepción De La Torre MD Creatinine [Mass/Vol] 0.7 mg/dL Normal 0.5-0.9 [facility] Comment on above: Performed By: #### C DP, CP #### [facility] [address] [place] [address] Rag Washer: Concepción De La Torre MD GFR/1.73 sq M.predicted among non-blacks MDRD (S/P/Bld) [Vol rate/Area] 85 mL/min/{1.73_m2} Normal >60 [facility] Comment on above: Result Comment: These [...] Performed By: #### C DP, CP #### [address] [place] [address] Rag Washer: Concepción De La Torre MD Glucose [Mass/Vol] 98 mg/dL Normal 70-99 [facility] Comment on above: Performed By: #### C DP, CP #### [address] [place] [address] Rag Washer: Concepción De La Torre MD Potassium [Moles/Vol] 3.8 mmol/L Normal 3.7-5.3 [facility] Comment on above: Performed By: #### C DP, CP #### [address] [place] [address] Rag Washer: Concepción De La Torre MD Protein [Mass/Vol] 4.8 g/dL Low 6.4-8.3 [facility] Comment on above: Performed By: #### C DP, CP #### [facility] [address] [place] [address] Rag Washer: Concepción De La Torre MD Sodium [Moles/Vol] 135 mmol/L Normal 135-144 [facility] Comment on above: Performed By: #### C DP, CP #### [facility] [address] [place] [address] Rag Washer: Concepción De La Torre MD Urea nitrogen [Mass/Vol] 19 mg/dL Normal 8-23 [facility] Comment on above: Performed By: #### C DP, CP #### [facility] [address] [place] [address] Rag Washer: Concepción De La Torre MD CBC with Auto Differentialon 01-15-2024 Basophils (Bld) [#/Vol] 0.03 10*3/uL [facility] Basophils/100 WBC (Bld) 0 % 0 - 2 % [facility] Eosinophils (Bld) [#/Vol] 0.05 10*3/uL [facility] Eosinophils/100 WBC (Bld) 0 % Low 1 - 4 % [facility] Erythrocyte distribution width (RBC) [Ratio] 15.9 % High 11.8 - 14.4 % [facility] Hematocrit (Bld) [Volume fraction] 31.7 % Low 36.3 - 47.1 % [facility] Hemoglobin (Bld) [Mass/Vol] 10.3 g/dL Low 11.9 - 15.1 g/dL [facility] Immature granulocytes (Bld) [#/Vol] 0.09 10*3/uL [facility] Immature granulocytes/100 WBC (Bld) 1 % High 0 [facility] Interpretation and review of laboratory results Abnormal [facility] Lymphocytes/100 WBC (Bld) 7 % Low 24 - 43 % [facility] Lymphocytes/100 WBC (Bld) 0.83 % Low [facility] MCH (RBC) [Entitic mass] 31.1 pg 25.2 - 33.5 pg [facility] MCHC (RBC) [Mass/Vol] 32.5 g/dL 28.4 - 34.8 g/dL [facility] MCV (RBC) [Entitic vol] 95.8 fL 82.6 - 102.9 fL [facility] Monocytes/100 WBC (Bld) 11 % 3 - 12 % [facility] Monocytes/100 WBC (Bld) 1.30 % High [facility] Neutrophils/100 WBC (Bld) 81 % High 36 - 65 % [facility] Nucleated RBC/100 WBC (Bld) [Ratio] 0.0 % 0.0 per 100 WBC [facility] Platelet mean volume (Bld) [Entitic vol] 11.8 fL 8.1 - 13.5 fL [facility] Platelets (Bld) [#/Vol] 176 10*3/uL [facility] RBC (Bld) [#/Vol] 3.31 10*6/uL Low 3.95 - 5.1 1 m/uL [facility] Segmented neutrophils/100 WBC (Bld) 9.73 % High [facility] WBC other (Bld) [#/Vol] 12.0 High [facility] CBC with Diffon 01-15-2024 Abs. Basophil 0.03 k/uL Normal 0.00-0.[address] [facility] Comment on above: Performed By: #### C SCHUYLER, CP #### [facility] [address] [place] [address] [place] [address] Rag Washer: Concepción De La Torre MD Abs.Imm.Granulocyte 0.09 k/uL Normal 0.00-0.30 [facility] Comment on above: Performed By: #### C SCHUYLER, CP #### [facility] [address] [place] [address] [place] [address] Rag Washer: Concepción De La Torre MD Abs.Neutrophil (Seg) 9.73 k/uL High 1.50-8.10 [facility] Comment on above: Performed By: #### C DP, CP #### [facility] [address] [place] [address] Dr. [place]endez, [place] [phone] Rag Washer: Concepción De La Torre MD Basophils/100 WBC (Bld) 0 % Normal 0-2 [facility] Comment on above: Performed By: #### C DP, CP #### [facility] [address] [place] [address] Dr. [place]endez, [id number] Rag Washer: Concepción DeL a Torre MD Eosinophils (Bld) [#/Vol] 0.05 10*3/uL Normal 0.00-0.44 [facility] Comment on above: Performed By: #### C DP, CP #### [address] [place], [place] [address] Rag Washer: Concepción De La Torre MD Eosinophils/100 WBC (Bld) 0 % Low 1-4 [facility] Comment on above: Performed By: #### C DP, CP #### [address] [place], [place] [address] Rag Washer: Concepción De La Torre MD Erythrocyte distribution width (RBC) [Ratio] 15.9 % High 11.8-14.4 [facility] Comment on above: Performed By: #### C DP, CP #### [address] [place], [id number] Rag Washer: Concepción De La Torre MD Hematocrit (Bld) [Volume fraction] 31.7 % Low 36.3-47.1 [facility] Comment on above: Performed By: #### C DP, CP #### [address] [place], [id number] Rag Washer: Concepción De La Torre MD Hemoglobin (Bld) [Mass/Vol] 10.3 g/dL Low 11.9-15.1 [facility] Comment on above: Performed By: #### C DP, CP #### [address] [place]endez, [id number] Rag Washer: Concepción De La Torre MD Immature granulocytes/100 WBC (Bld) 1 % High 0 [facility] Comment on above: Performed By: #### C DP, CP #### [facility] [address] [place] [address] Dr. [place]endez, [place] [phone] Rag Washer: Concepción De La Torre MD Lymphocytes (Bld) [#/Vol] 0.83 10*3/uL Low 1.10-3.70 [facility] Comment on above: Performed By: #### C DP, CP #### [address] [place] [address] Rag Washer: Concepción De La Torre MD Lymphocytes/100 WBC (Bld) 7 % Low 24-43 [facility] Comment on above: Performed By: #### C DP, CP #### [address] [place] [phone] Rag Washer: Concepción De La Torre MD MCH (RBC) [Entitic mass] 31.1 pg Normal 25.2-33.5 [facility] Comment on above: Performed By: #### C DP, CP #### [address] [place] [address] Rag Washer: Concepción De La Torre MD MCHC (RBC) [Mass/Vol] 32.5 g/dL Normal 28.4-34.8 [facility] Comment on above: Performed By: #### C DP, CP #### [address] [place] [address] Rag Washer: Concepción De La Torre MD MCV (RBC) [Entitic vol] 95.8 fL Normal 82.6-102.9 [facility] Comment on above: Performed By: #### C DP, CP #### [address] [place] [address] Rag Washer: Concepción De La Torre MD Monocytes (Bld) [#/Vol] 1.30 10*3/uL High 0.10-1.20 [facility] Comment on above: Performed By: #### C DP, CP #### [facility] [address] [place], [place] [phone] Rag Washer: Concepción De La Torre MD Monocytes/100 WBC (Bld) 11 % Normal 3-12 [facility] Comment on above: Performed By: #### C DP, CP #### [facility] [address] [place], [id number] Rag Washer: Concepción De La Torre MD Neutrophil (Seg) 81 % High 36-65 [facility] Comment on above: Performed By: #### C DP, CP #### [address] [place], [id number] Rag Washer: Concepción De La Torre MD NRBC Automated 0.0 per 100 WBC Normal 0.0 [facility] Comment on above: Performed By: #### C DP, CP #### [address] [place], [id number] Rag Washer: Concepción De La Torre MD Platelet mean volume (Bld) [Entitic vol] 11.8 fL Normal 8.1-13.5 [facility] Comment on above: Performed By: #### C DP, CP #### [address] [place], [id number] Rag Washer: Concepción De La Torre MD Platelets (Bld) [#/Vol] 176 10*3/uL Normal 138-453 [facility] Comment on above: Performed By: #### C DP, CP #### [facility] [address] [place] [address] Dr. [place]endez, [place] [phone] Rag Washer: Concepción De La Torre MD RBC (Bld) [#/Vol] 3.31 10*6/uL Low 3.95-5.11 [facility] Comment on above: Performed By: #### C DP, CP #### [address] [place] [address] Rag Washer: Concepción De La Torre MD WBC (Bld) [#/Vol] 12.0 10*3/uL High 3.5-11.3 [facility] Comment on above: Performed By: #### C DP, CP #### [facility] [address] [place], [place] [phone] Rag Washer: Concepción De La Torre MD Comp Metabolic Profon 2023 Albumin [Mass/Vol] 2.8 g/dL Low 3.5-5.2 [facility] Comment on above: Performed By: #### C DP, CP #### [facility] [address] [place], [place] [phone] Rag Washer: Concepción De La Torre MD Albumin/Glob Ratio 1.2 Normal 1.0-2.5 [facility] Comment on above: Performed By: #### C DP, CP #### [facility] [address] [place], [place] [phone] Rag Washer: Concepción De La Torre MD Alkaline Phos 74 U/L Normal 35-[address] [facility] Comment on above: Performed By: #### C DP, CP #### [facility] [address] [place], [place] [phone] Rag Washer: Concepción De La Torre MD ALT [Catalytic activity/Vol] 22 U/L Normal 5-33 [facility] Comment on above: Performed By: #### C DP, CP #### [facility] [address] [place], [place] [phone] Rag Washer: Concepción De La Torre MD Anion gap [Moles/Vol] 10 mmol/L Normal 9-17 [facility] Comment on above: Performed By: #### C DP, CP #### [facility] [address] [place] [address] Rag Washer: Concepción De La Torre MD AST [Catalytic activity/Vol] 36 U/L High <32 [facility] Comment on above: Performed By: #### C DP, CP #### [facility] [address] [place], [place] [phone] Rag Washer: Concepción De La Torre MD Bilirubin [Mass/Vol] 1.3 mg/dL High 0.3-1.2 [facility] Comment on above: Performed By: #### C DP, CP #### [facility] [address] [place], [place] [phone] Rag Washer: Concepción De La Torre MD BUN/CRE Ratio 34 High 9-[address] [facility] Comment on above: Performed By: #### C DP, CP #### [facility] [address] [place], [place] [phone] Rag Washer: Concepción De La Torre MD Calcium [Mass/Vol] 8.2 mg/dL Low 8.6-10.4 [facility] Comment on above: Performed By: #### C DP, CP #### [facility] [address] [place], [place] [phone] Rag Washer: Concepción De La Torre MD Chloride [Moles/Vol] 101 mmol/L Normal 98-107 [facility] Comment on above: Performed By: #### C DP, CP #### [facility] [address] [place], [place] [phone] Rag Washer: Concepción De La Torre MD CO2 [Moles/Vol] 26 mmol/L Normal 20-31 [facility] Comment on above: Performed By: #### C DP, CP #### [facility] [address] [place], [place] [phone] Rag Washer: Concepción De La Torre MD Creatinine [Mass/Vol] 0.8 mg/dL Normal 0.5-0.9 [facility] Comment on above: Performed By: #### C DP, CP #### [facility] [address] [place] [address] Rag Washer: Concepción De La Torre MD GFR/1.73 sq M.predicted among non-blacks MDRD (S/P/Bld) [Vol rate/Area] 73 mL/min/{1.73_m2} Normal >60 [facility] Comment on above: Result Comment: These [...] Performed By: #### C DP, CP #### [address] [place] [address] Rag Washer: Concepción De La Torre MD Glucose [Mass/Vol] 101 mg/dL High 70-99 [facility] Comment on above: Performed By: #### C DP, CP #### [address] [place] [address] Rag Washer: Concepción De La Torre MD Potassium [Moles/Vol] 4.6 mmol/L Normal 3.7-5.3 [facility] Comment on above: Performed By: #### C DP, CP #### [address] [place] [address] Rag Washer: Concepción De La Torre MD Protein [Mass/Vol] 5.2 g/dL Low 6.4-8.3 [facility] Comment on above: Performed By: #### C DP, CP #### [address] [place] [address] Rag Washer: Concepción De La Torre MD Sodium [Moles/Vol] 137 mmol/L Normal 135-144 [facility] Comment on above: Performed By: #### C DP, CP #### [address] [place] [address] Rag Washer: Concepción De La Torre MD Urea nitrogen [Mass/Vol] 27 mg/dL High 8-23 [facility] Comment on above: Performed By: #### C DP, CP #### [facility] [address] [place] [address] Rag Washer: Concepción De La Torre MD Comprehensive Metabolic Pane [facility] 01-15-2024 Albumin [Mass/Vol] 2.8 g/dL Low 3.5 - 5.2 g/dL [facility] Albumin/Globulin [Mass ratio] 1.2 {ratio} 1.0 - 2.5 [facility] ALP [Catalytic activity/Vol] 74 U/L 35 - 104 U/L [facility] ALT [Catalytic activity/Vol] 22 U/L 5 - 33 U/L [facility] Anion gap [Moles/Vol] 10 mmol/L 9 - 17 mmol/L [facility] AST [Catalytic activity/Vol] 36 U/L High NINF - 32 U/L [facility] Bilirubin [Mass/Vol] 1.3 mg/dL High 0.3 - 1 .2 mg/dL [facility] Calcium [Mass/Vol] 8.2 mg/dL Low 8.6 - 10. 4 mg/dL [facility] Chloride [Moles/Vol] 101 mmol/L 98 - 10 7 mmol/L [facility] CO2 [Moles/Vol] 26 mmol/L 20 - 31 mmol/L [facility] Creatinine [Mass/Vol] 0.8 mg/dL 0.5 - 0.9 mg/dL [facility] Est, Glom Filt Rate 73 - PINF [facility] Comment on above: These results are not [...] 101 mg/dL High 70 - 99 mg/dL [facility] Interpretation and review of laboratory results Abnormal [facility] Potassium [Moles/Vol] 4.6 mmol/L 3.7 - 5.3 mmol/L [facility] Protein [Mass/Vol] 5.2 g/dL Low 6.4 - 8.3 g/dL [facility] Sodium [Moles/Vol] 137 mmol/L 135 - 144 mmol/L [facility] Urea nitrogen [Mass/Vol] 27 mg/dL High 8 - 23 mg/dL [facility] Urea nitrogen/Creatinine [Mass ratio] 34 mg/mg High 9 - 20 [facility] PTon 01-13-2024 INR Coag (PPP) [Relative time] 1.3 {INR} Normal [facility] Comment on above: Result Comment: Therapeutic Range: Moderate Anticoagulant Intensity: INR = 2.0-3.0 High Anticoagulant Intensity: INR = 2.5-3.5 Performed By: #### P T ####[place] [address] Lab Director: Sarath Olivera MD PT Coag (PPP) [Time] 15.6 s High 11.7-14.[address] [facility] Comment on above: Performed By: #### P T ####[address] [address] Lab Director: Sarath Olivera MD Basic Metab w/rfx MGon 01-11 Anion gap [Moles/Vol] 9 mmol/L Normal 9-16 [facility] Comment on above: Performed By: #### B C #### [facility] [address] [place] [id number] Rag Washer: Sarath Olivera MD Calcium [Mass/Vol] 8.3 mg/dL Low 8.6-10.4 [facility] Comment on above: Performed By: #### B C #### [place] [address] Rag Washer: Sarath Olivera MD Chloride [Moles/Vol] 103 mmol/L Normal 98-[address] [facility] Comment on above: Performed By: #### B C #### [address] [address] Rag Washer: Sarath Olivera MD CO2 [Moles/Vol] 25 mmol/L Normal 20-31 [facility] Comment on above: Performed By: #### B C #### [address] [address] Rag Washer: Sarath Olivera MD Creatinine [Mass/Vol] 0.8 mg/dL Normal 0.50-0.90 [facility] Comment on above: Performed By: #### B C #### [address] [address] Rag Washer: Sarath Olivera MD GFR/1.73 sq M.predicted among non-blacks MDRD (S/P/Bld) [Vol rate/Area] 78 mL/min/{1.73_m2} Normal >60 [facility] Comment on above: Result Comment: These results [...] renal tubular secretion. Performed By: #### B C #### [address] [address] Rag Washer: Sarath Olivera MD Glucose [Mass/Vol] 92 mg/dL Normal 74-99 [facility] Comment on above: Performed By: #### B C #### [address] [address] Rag Washer: Sarath Olivera MD Potassium [Moles/Vol] 4.5 mmol/L Normal 3.7-5.3 [facility] Comment on above: Performed By: #### B C #### [place] [address] Rag Washer: Sarath Olivera MD Sodium [Moles/Vol] 137 mmol/L Normal 136-145 [facility] Comment on above: Performed By: #### B C #### [place] [address] Rag Washer: Sarath Olivera MD Urea nitrogen [Mass/Vol] 28 mg/dL High 8- [facility] Comment on above: Performed By: #### B C #### [place] [address] Rag Washer: Sarath Olivera MD CBC with Diffon 01-12-2024 Abs. Basophil 0.03 k/uL Normal 0.00-0.20 [facility] Comment on above: Performed By: #### B C #### [place] [address] Rag Washer: Sarath Olivera MD Abs.Imm.Granulocyte 0.24 k/uL Normal 0.00-0.30 [facility] Comment on above: Performed By: #### B C #### [place] [address] Rag Washer: Sarath Olivera MD Abs.Neutrophil (Seg) 6.54 k/uL Normal 1.50-8.[address] [facility] Comment on above: Performed By: #### B C #### [place] [address] Rag Washer: Sarath Olivera MD Basophils/100 WBC (Bld) 0 % Normal 0-2 [facility] Comment on above: Performed By: #### B C #### [address] [place] [address] Rag Washer: Sarath Olivera MD Eosinophils (Bld) [#/Vol] 0.19 10*3/uL Normal 0.00-0.44 [facility] Comment on above: Performed By: #### B C #### [address] [address] Rag Washer: Sarath Olivera MD Eosinophils/100 WBC (Bld) 2 % Normal 1-4 [facility] Comment on above: Performed By: #### B C #### [address] [address] Rag Washer: Sarath Olivera MD Erythrocyte distribution width (RBC) [Ratio] 15.8 % High 11.8-14.4 [facility] Comment on above: Performed By: #### B C #### [address] [address] Rag Washer: Sarath Olivera MD Hematocrit (Bld) [Volume fraction] 29.8 % Low 36.3-47.1 [facility] Comment on above: Performed By: #### B C #### [address] [address] Rag Washer: Sarath Olivera MD Hemoglobin (Bld) [Mass/Vol] 9.3 g/dL Low 11.9-15.1 [facility] Comment on above: Performed By: #### B C #### [address] [address] Rag Washer: Sarath Olivera MD Immature granulocytes/100 WBC (Bld) 3 % High 0 [facility] Comment on above: Performed By: #### B C #### [address] [address] Rag Washer: Sarath Olivera MD Lymphocytes (Bld) [#/Vol] 1.23 10*3/uL Normal 1.10-3.70 [facility] Comment on above: Performed By: #### B C #### [place] [address] Rag Washer: Sarath Olivera MD Lymphocytes/100 WBC (Bld) 13 % Low 24-43 [facility] Comment on above: Performed By: #### B C #### [place] [address] Rag Washer: Sarath Olivera MD MCH (RBC) [Entitic mass] 30.9 pg Normal 25.2-33.5 [facility] Comment on above: Performed By: #### B C #### [place] [address] Rag Washer: Sarath Olivera MD MCHC (RBC) [Mass/Vol] 31.2 g/dL Normal 28.4-34.8 [facility] Comment on above: Performed By: #### B C #### [place] [address] Rag Washer: Sarath Olivera MD MCV (RBC) [Entitic vol] 99.0 fL Normal 82.6-102.9 [facility] Comment on above: Performed By: #### B C #### [place] [address] Rag Washer: Sarath Olivera MD Monocytes (Bld) [#/Vol] 1.19 10*3/uL Normal 0.10-1.20 [facility] Comment on above: Performed By: #### B C #### [place] [address] Rag Washer: Sarath Olivera MD Monocytes/100 WBC (Bld) 13 % High 3-12 [facility] Comment on above: Performed By: #### B C #### [address] [address] Rag Washer: Sarath Olivera MD Neutrophil (Seg) 69 % High 36-65 [facility] Comment on above: Performed By: #### B C #### [address] [address] Rag Washer: Sarath Olivera MD NRBC Automated 0.5 per 100 WBC High 0.0 [facility] [facility] Comment on above: Performed By: #### B C #### [address] [address] Rag Washer: Sarath Olivera MD Platelet mean volume (Bld) [Entitic vol] 12.4 fL Normal 8.1-13.5 [facility] Comment on above: Performed By: #### B C #### [address] [address] Rag Washer: Sarath Olivera MD Platelets (Bld) [#/Vol] 140 10*3/uL Normal 138-453 [facility] Comment on above: Performed By: #### B C #### [address] [address] Rag Washer: Sarath Olivera MD RBC (Bld) [#/Vol] 3.01 10*6/uL Low 3.95-5.11 [facility] Comment on above: Performed By: #### B C #### [address] [address] Rag Washer: Sarath Olivera MD RBC morphology finding Nom (Bld) ANISOCYTOSIS PRESENT Normal [facility] Comment on above: Performed By: #### B C #### [address] [address] Rag Washer: Sarath Olivera MD WBC (Bld) [#/Vol] 9.4 10*3/uL Normal 3.5-11.3 [facility] Comment on above: Performed By: #### B C #### [address] [address] Rag Washer: Sarath Olivera MD PTon 01-12-2024 INR Coag (PPP) [Relative time] 1.2 {INR} Normal [facility] Comment on above: Result Comment: Therapeutic Range: Moderate Anticoagulant Intensity: INR = 2.0-3.0 High Anticoagulant Intensity: INR = 2.5-3.5 Performed By: #### B C #### [address] [id number] Rag Washer: Sarath Olivera MD PT Coag (PPP) [Time] 14.6 s Normal 11.7-14.[address] [facility] Comment on above: Performed By: #### B C #### [address] [address] Rag Washer: Sarath Olivera MD XR CHEST PORTABLEon 01-12-20 XR CHEST PORTABLE EXAMINATION: ONE XRAY VIEW [...] Deon Webb MD 01/12/24 Final result Normal [facility] Basic Metab w/rfx MGon 01-10 Anion gap [Moles/Vol] 7 mmol/L Low 9-16 [facility] Comment on above: Performed By: #### L ACTIC, ALCB #### [facility] [address] [place] [address] Rag Washer: Sarath Olivera MD Calcium [Mass/Vol] 8.0 mg/dL Low 8.6-10.4 [facility] Comment on above: Performed By: #### L ACTIC, ALCB #### [facility] [address] [place] [address] Rag Washer: Sarath Olivera MD Chloride [Moles/Vol] 104 mmol/L Normal 98-[address] [facility] Comment on above: Performed By: #### L ACTMARILIN ALCB #### [facility] [address] [place] [address] Rag Washer: Sarath Olivera MD CO2 [Moles/Vol] 24 mmol/L Normal 20-31 [facility] Comment on above: Performed By: #### L ACTMARILIN ALCB #### [facility] [address] [place] [address] Rag Washer: Sarath Olivera MD Creatinine [Mass/Vol] 0.8 mg/dL Normal 0.50-0.90 [facility] Comment on above: Performed By: #### L ACTMARILIN, ALCB #### [address] [address] Rag Washer: Sarath Olivera MD GFR/1.73 sq M.predicted among non-blacks MDRD (S/P/Bld) [Vol rate/Area] 70 mL/min/{1.73_m2} Normal >60 [facility] Comment on above: Result Comment: These results [...] affects renal tubular secretion. Performed By: #### L ACTIC, ALCB #### [facility] [address] [place] [address] Rag Washer: Sarath Olivera MD Glucose [Mass/Vol] 106 mg/dL High 74-99 [facility] Comment on above: Performed By: #### L ACTIC, ALCB #### [facility] [address] [place] [address] Rag Washer: Sarath Olivera MD Potassium [Moles/Vol] 4.7 mmol/L Normal 3.7-5.3 [facility] Comment on above: Performed By: #### L ACTIC, ALCB #### [facility] [address] [place] [address] Rag Washer: Sarath Olivera MD Sodium [Moles/Vol] 135 mmol/L Low 136-145 [facility] Comment on above: Performed By: #### L ACTIC, ALCB #### [facility] [address] [place] [address] Rag Washer: Sarath Olivera MD Urea nitrogen [Mass/Vol] 28 mg/dL High 8-23 [facility] Comment on above: Performed By: #### L ACTIC, ALCB #### [facility] [address] [place] [address] Rag Washer: Sarath Olivera MD CBC with Diffon 01-11-2024 Abs. Basophil <0.03 Normal 0.00-0.20 [facility] Comment on above: Performed By: #### L ACTIC, ALCB #### [facility] [address] [place] [address] Rag Washer: Sarath Olivera MD Abs.Imm.Granulocyte 0.23 k/uL Normal 0.00-0.30 [facility] Comment on above: Performed By: #### L ACTIC, ALCB #### [address] [address] Rag Washer: Sarath Olivera MD Abs.Neutrophil (Seg) 7.27 k/uL Normal 1.50-8.[address] [facility] Comment on above: Performed By: #### L ACTIC, ALCB #### [address] [address] Rag Washer: Sarath Olivera MD Basophils/100 WBC (Bld) 0 % Normal 0-2 [facility] Comment on above: Performed By: #### L ACTIC, ALCB #### [address] [address] Rag Washer: Sarath Olivera MD Eosinophils (Bld) [#/Vol] 0.11 10*3/uL Normal 0.00-0.44 [facility] Comment on above: Performed By: #### L ACTIC, ALCB #### [address] [address] Rag Washer: Sarath Olivera MD Eosinophils/100 WBC (Bld) 1 % Normal 1-4 [facility] Comment on above: Performed By: #### L ACTIC, ALCB #### [address] [address] Rag Washer: Sarath Olivera MD Erythrocyte distribution width (RBC) [Ratio] 15.6 % High 11.8-14.4 [facility] Comment on above: Performed By: #### L ACTIC, ALCB #### [facility] [address] [place] [address] Rag Washer: Sarath Olivera MD Hematocrit (Bld) [Volume fraction] 28.4 % Low 36.3-47.1 [facility] Comment on above: Performed By: #### L ACTIC, ALCB #### [address] [address] Rag Washer: Sarath Olivera MD Hemoglobin (Bld) [Mass/Vol] 8.9 g/dL Low 11.9-15.1 [facility] Comment on above: Performed By: #### L ACTIC, ALCB #### [address] [address] Rag Washer: Sarath Olivera MD Immature granulocytes/100 WBC (Bld) 2 % High 0 [facility] Comment on above: Performed By: #### L ACTIC, ALCB #### [address] [address] Rag Washer: Sarath Olivera MD Lymphocytes (Bld) [#/Vol] 1.31 10*3/uL Normal 1.10-3.70 [facility] Comment on above: Performed By: #### L MARY ALCB #### [address] [address] Rag Washer: Sarath Olivera MD Lymphocytes/100 WBC (Bld) 13 % Low 24-43 [facility] Comment on above: Performed By: #### L ACTIC, ALCB #### [address] [address] Rag Washer: Sarath Olivera MD MCH (RBC) [Entitic mass] 30.9 pg Normal 25.2-33.5 [facility] Comment on above: Performed By: #### L ACTIC, ALCB #### [address] [address] Rag Washer: Sarath Olivera MD MCHC (RBC) [Mass/Vol] 31.3 g/dL Normal 28.4-34.8 [facility] Comment on above: Performed By: #### L ACTMARILIN, ALCB #### [facility] [address] [place] [address] Rag Washer: Sarath Olivera MD MCV (RBC) [Entitic vol] 98.6 fL Normal 82.6-102.9 [facility] Comment on above: Performed By: #### L MARY ALCB #### [address] [address] Rag Washer: Sarath Olivera MD Monocytes (Bld) [#/Vol] 1.42 10*3/uL High 0.10-1.20 [facility] Comment on above: Performed By: #### L ACTMARILIN ALCB #### [address] [address] Rag Washer: Sarath Olivera MD Monocytes/100 WBC (Bld) 14 % High 3-12 [facility] Comment on above: Performed By: #### L MARY ALCB #### [address] [address] Rag Washer: Sarath Olivera MD Neutrophil (Seg) 70 % High 36-65 [facility] Comment on above: Performed By: #### L MARY ALCB #### [address] [address] Rag Washer: Sarath Olivera MD NRBC Automated 1.3 per 100 WBC High 0.0 [facility] Comment on above: Performed By: #### L MARY ALCB #### [address] [address] Rag Washer: Sarath Olivera MD Platelet mean volume (Bld) [Entitic vol] 12.1 fL Normal 8.1-13.5 [facility] Comment on above: Performed By: #### L MARY ALCB #### [address] [address] Rag Washer: Sarath Olivera MD Platelets (Bld) [#/Vol] 109 10*3/uL Low 138-453 [facility] Comment on above: Performed By: #### L MARY ALCB #### [address] [address] Rag Washer: Sarath Olivera MD RBC (Bld) [#/Vol] 2.88 10*6/uL Low 3.95-5.11 [facility] Comment on above: Performed By: #### L MARY ALCB #### [address] [address] Rag Washer: Sarath Olivera MD RBC morphology finding Nom (Bld) ANISOCYTOSIS PRESENT Normal [facility] Comment on above: Performed By: #### L MARY ALCB #### [address] [address] Rag Washer: Sarath Olivera MD WBC (Bld) [#/Vol] 10.4 10*3/uL Normal 3.5-11.3 [facility] Comment on above: Performed By: #### L MARY ALCB #### [address] [address] Rag Washer: Sarath Olivera MD Basic Metab w/rfx MGon 01-09 Anion gap [Moles/Vol] 7 mmol/L Low 9-16 [facility] Comment on above: Performed By: #### B C #### [address] [address] Rag Washer: Sarath Olivera MD Calcium [Mass/Vol] 8.4 mg/dL Low 8.6-10.4 [facility] Comment on above: Performed By: #### B C #### [address] [address] Rag Washer: Sarath Olivera MD Chloride [Moles/Vol] 109 mmol/L High 98-[address] [facility] Comment on above: Performed By: #### B C #### [address] [address] Rag Washer: Sarath Olivera MD CO2 [Moles/Vol] 25 mmol/L Normal 20-31 [facility] Comment on above: Performed By: #### B C #### [address] [address] Rag Washer: Sarath Olivera MD Creatinine [Mass/Vol] 0.8 mg/dL Normal 0.50-0.90 [facility] Comment on above: Performed By: #### B C #### [address] [address] Rag Washer: Sarath Olivera MD GFR/1.73 sq M.predicted among non-blacks MDRD (S/P/Bld) [Vol rate/Area] 68 mL/min/{1.73_m2} Normal >60 [facility] Comment on above: Result Comment: These results [...] renal tubular secretion. Performed By: #### B C #### [address] [address] Rag Washer: Sarath Olivera MD Glucose [Mass/Vol] 96 mg/dL Normal 74-99 [facility] Comment on above: Performed By: #### B C #### [address] [address] Rag Washer: Sarath Olivera MD Potassium [Moles/Vol] 4.9 mmol/L Normal 3.7-5.3 [facility] Comment on above: Performed By: #### B C #### [address] [place] [address] Rag Washer: Sarath Olivera MD Sodium [Moles/Vol] 141 mmol/L Normal 136-145 [facility] Comment on above: Performed By: #### B C #### [address] [address] Rag Washer: Sarath Olivera MD Urea nitrogen [Mass/Vol] 31 mg/dL High 8-23 [facility] Comment on above: Performed By: #### B C #### [address] [address] Rag Washer: Sarath Olivera MD CBC with Diffon 01-10-2024 Abs. Basophil <0.03 Normal 0.00-0.20 [facility] Comment on above: Performed By: #### B C #### [address] [address] Rag Washer: Sarath Olivera MD Abs. Eosinophil <0.03 Normal 0.00-0.44 [facility] Comment on above: Performed By: #### B C #### [address] [address] Rag Washer: Sarath Olivera MD Abs.Imm.Granulocyte 0.12 k/uL Normal 0.00-0.30 [facility] Comment on above: Performed By: #### B C #### [address] [address] Rag Washer: Sarath Olivera MD Abs.Neutrophil (Seg) 7.01 k/uL Normal 1.50-8.[address] [facility] Comment on above: Performed By: #### B C #### [address] [address] Rag Washer: Sarath Olivera MD Basophils/100 WBC (Bld) 0 % Normal 0-2 [facility] Comment on above: Performed By: #### B C #### [address] [address] Rag Washer: Sarath Olivera MD Eosinophils/100 WBC (Bld) 0 % Low 1-4 [facility] Comment on above: Performed By: #### B C #### [address] [address] Rag Washer: Sarath Olivera MD Erythrocyte distribution width (RBC) [Ratio] 15.7 % High 11.8-14.4 [facility] Comment on above: Performed By: #### B C #### [address] [address] Rag Washer: Sarath Olivera MD Hematocrit (Bld) [Volume fraction] 28.2 % Low 36.3-47.1 [facility] Comment on above: Performed By: #### B C #### [address] [address] Rag Washer: Sarath Olivera MD Hemoglobin (Bld) [Mass/Vol] 9.0 g/dL Low 11.9-15.1 [facility] Comment on above: Performed By: #### B C #### [address] [address] Rag Washer: Sarath Olivera MD Immature granulocytes/100 WBC (Bld) 1 % High 0 [facility] Comment on above: Performed By: #### B C #### [address] [address] Rag Washer: Sarath Olivera MD Lymphocytes (Bld) [#/Vol] 1.46 10*3/uL Normal 1.10-3.70 [facility] Comment on above: Performed By: #### B C #### [address] [address] Rag Washer: Sarath Olivera MD Lymphocytes/100 WBC (Bld) 15 % Low 24-43 [facility] Comment on above: Performed By: #### B C #### [address] [address] Rag Washer: Sarath Olivera MD MCH (RBC) [Entitic mass] 30.8 pg Normal 25.2-33.5 [facility] Comment on above: Performed By: #### B C #### [address] [address] Rag Washer: Sarath Olivera MD MCHC (RBC) [Mass/Vol] 31.9 g/dL Normal 28.4-34.8 [facility] Comment on above: Performed By: #### B C #### [place] [address] Rag Washer: Sarath Olivera MD MCV (RBC) [Entitic vol] 96.6 fL Normal 82.6-102.9 [facility] Comment on above: Performed By: #### B C #### [address] [address] Rag Washer: Sarath Olivera MD Monocytes (Bld) [#/Vol] 1.28 10*3/uL High 0.10-1.20 [facility] Comment on above: Performed By: #### B C #### [place] [address] Rag Washer: Sarath Olivera MD Monocytes/100 WBC (Bld) 13 % High 3-12 [facility] Comment on above: Performed By: #### B C #### [address] [address] Rag Washer: Sarath Olivera MD Neutrophil (Seg) 71 % High 36-65 [facility] Comment on above: Performed By: #### B C #### [address] [address] Rag Washer: Sarath Olivera MD NRBC Automated 1.1 per 100 WBC High 0.0 [facility] Comment on above: Performed By: #### B C #### [address] [address] Rag Washer: Sarath Olivera MD Platelet mean volume (Bld) [Entitic vol] 12.7 fL Normal 8.1-13.5 [facility] Comment on above: Performed By: #### B C #### [address] [address] Rag Washer: Sarath Olivera MD Platelets (Bld) [#/Vol] 102 10*3/uL Low 138-453 [facility] Comment on above: Performed By: #### B C #### [address] [address] Rag Washer: Sarath Olivera MD RBC (Bld) [#/Vol] 2.92 10*6/uL Low 3.95-5.11 [facility] Comment on above: Performed By: #### B C #### [address] [address] Rag Washer: Sarath Olivera MD RBC morphology finding Nom (Bld) ANISOCYTOSIS PRESENT Normal [facility] Comment on above: Performed By: #### B C #### [address] [address] Rag Washer: Sarath Olivera MD WBC (Bld) [#/Vol] 9.9 10*3/uL Normal 3.5-11.3 [facility] Comment on above: Performed By: #### B C #### [address] [address] Rag Washer: Sarath Olivera MD Cult, Bloodon 01-10-2024 Cult, Blood Specimen Description .BLOOD Special Requests RT HAND NO MLS GIVEN Culture NO GROWTH 5 DAYS Report Status FINAL 01/10/2024 [facility] Comment on above: Performed By: #### B C #### [facility] [address] [place], [place] [phone] Rag Washer: Sarath Olivera MD Cult,Bloodon 01-10-2024 Cult,Blood Specimen Description .BLOOD Special Requests RT AC 10ML Culture NO GROWTH 5 DAYS Report Status FINAL 01/10/2024 [facility] Comment on above: Performed By: #### B C #### [facility] [address] [place] [address] [phone] Rag Washer: Sarath Olivera MD Fentanyl, Urineon 01-10-2024 Fentanyl/Metab Ur 21.9 ng/mL [facility] Comment on above: Result Comment: (NOT E) [...] developed and its performance characteristics determined by [facility]. It has not been cleared or approved by the [place] Food and Drug Administration. This test was performed in a CLIA certified laboratory and is intended for clinical purposes. Performed By: #### D AU, UAMIC #### [facility] [address] [place] [address] [phone] Rag Washer: Sarath Olivera MD Norfentanyl, Ur See Note [facility] Comment on above: Result Comment: (NOT E) Unable to identify due to interfering substance(s) in the specimen. Performed By: [facility] [address] [place] [address] Travel Attendants: Taco Chang MD, PhD CLIA Number: [id number] Performed By: #### D AU, UAMIC #### [facility] [address] [place] [address] Rag Washer: Sarath Olivera MD Opiates,Ur Confirmon 024 Codeine, Ur <20 Normal [facility] Comment on above: Performed By: #### D AU, UAMIC #### [facility] [address] [place] [address] Rag Washer: Sarath Olivera MD Hydrocodone, Ur <20 Normal [facility] Comment on above: Performed By: #### D AU, UAMIC #### [facility] [address] [place] [address] Rag Washer: Sarath Olivera MD Hydromorphone, Ur <20 Normal [facility] Comment on above: Performed By: #### D AU, UAMIC #### [facility] [address] [place] [address] Rag Washer: Sarath Olivera MD Morphine, Ur 331 ng/mL Normal [facility] Comment on above: Performed By: #### D AU, UAMIC #### [facility] [address] [place] [phone] Rag Washer: Sarath Olivera MD Norhydrocodone, U <20 Normal [facility] Comment on above: Result Comment: (NOT E) Performed By: [facility] [address] [place] [address] Travel Attendants: Taco Chang MD, PhD CLIA Number: [id number] Performed By: #### D AU, UAMIC #### [facility] [address] [place] [address] Rag Washer: Sarath Olivera MD Noroxycodone, Ur <20 Normal [facility] Comment on above: Performed By: #### D AU, UAMIC #### [facility] [address] [place] [address] [phone] Rag Washer: Sarath Olivera MD Noroxymorphone,U <20 Normal [facility] Comment on above: Performed By: #### Ashley AU, UAMIC #### [facility] [address] [place] [address] [phone] Rag Washer: Sarath Olivera MD Opiates, 6 AM Ur <10 Normal [facility] Comment on above: Result Comment: (NOT [...] developed and its performance characteristics determined by [facility]. It has not been cleared or approved by the [place] Food and Drug Administration. This test was performed in a CLIA certified laboratory and is intended for clinical purposes. Performed By: #### D AU, UAMIC #### [facility] [address] [place] [address] [phone] Rag Washer: Sarath Olivera MD Oxycodone, Ur <20 Normal [facility] Comment on above: Performed By: #### Ashley AU, UAMIC #### [facility] [address] [place] [phone] Rag Washer: Sarath Madoff, MD Oxymorphone, Ur <20 Normal [facility] Comment on above: Performed By: #### D AU, UAMIC #### [address] [address] Rag Washer: Sarath Olivera MD Basic Metab w/rfx MGon 01-08 Anion gap [Moles/Vol] 7 mmol/L Low 9-16 [facility] Comment on above: Performed By: #### B C #### [address] [address] Rag Washer: Sarath Olivera MD Calcium [Mass/Vol] 8.0 mg/dL Low 8.6-10.4 [facility] Comment on above: Performed By: #### B C #### [address] [address] Rag Washer: Sarath Olivera MD Chloride [Moles/Vol] 113 mmol/L High 98-[address] [facility] Comment on above: Performed By: #### B C #### [address] [address] Rag Washer: Sarath Olivera MD CO2 [Moles/Vol] 23 mmol/L Normal 20-31 [facility] Comment on above: Performed By: #### B C #### [address] [address] Rag Washer: Sarath Olivera MD Creatinine [Mass/Vol] 0.9 mg/dL Normal 0.50-0.90 [facility] Comment on above: Performed By: #### B C #### [address] [address] Rag Washer: Sarath Olivera MD GFR/1.73 sq M.predicted among non-blacks MDRD (S/P/Bld) [Vol rate/Area] 61 mL/min/{1.73_m2} Normal >60 [facility] Comment on above: Result Comment: These results [...] renal tubular secretion. Performed By: #### B C #### [address] [address] Rag Washer: Sarath Olivera MD Glucose [Mass/Vol] 112 mg/dL High 74-99 [facility] Comment on above: Performed By: #### B C #### [address] [address] Rag Washer: Sarath Olivera MD Potassium [Moles/Vol] 5.1 mmol/L Normal 3.7-5.3 [facility] Comment on above: Performed By: #### B C #### [address] [address] Rag Washer: Sarath Olivera MD Sodium [Moles/Vol] 143 mmol/L Normal 136-145 [facility] Comment on above: Performed By: #### B C #### [address] [address] Rag Washer: Sarath Olivera MD Urea nitrogen [Mass/Vol] 31 mg/dL High 8-23 [facility] Comment on above: Performed By: #### B C #### [address] [address] Rag Washer: Sarath Olivera MD CBC with Diffon 01-09-2024 Platelet, Fluoresc. 84 k/uL Low 138-453 [facility] Comment on above: Performed By: #### B C #### [address] [address] Rag Washer: Sarath Olivera MD PLT, Immature Fract. 11.1 % High 1.1-10.[address] [facility] Comment on above: Performed By: #### B C #### [address] [address] Rag Washer: Sarath Olivera MD Abs. Basophil <0.03 Normal 0.00-0.20 [facility] Comment on above: Performed By: #### B C #### [place] [address] Rag Washer: Sarath Olivera MD Abs. Eosinophil <0.03 Normal 0.00-0.44 [facility] Comment on above: Performed By: #### B C #### [place] [address] Rag Washer: Sarath Olivera MD Abs.Imm.Granulocyte 0.09 k/uL Normal 0.00-0.30 [facility] Comment on above: Performed By: #### B C #### [place] [address] Rag Washer: Sarath Olivera MD Abs.Neutrophil (Seg) 9.66 k/uL High 1.50-8.[address] [facility] Comment on above: Performed By: #### B C #### [place] [address] Rag Washer: Sarath Olivera MD Basophils/100 WBC (Bld) 0 % Normal 0-2 [facility] Comment on above: Performed By: #### B C #### [place] [address] Rag Washer: Sarath Olivera MD Eosinophils/100 WBC (Bld) 0 % Low 1-4 [facility] Comment on above: Performed By: #### B C #### [address] [address] Rag Washer: Sarath Olivera MD Immature granulocytes/100 WBC (Bld) 1 % High 0 [facility] Comment on above: Performed By: #### B C #### [address] [address] Rag Washer: Sarath Olivera MD Lymphocytes (Bld) [#/Vol] 0.83 10*3/uL Low 1.10-3.70 [facility] Comment on above: Performed By: #### B C #### [address] [address] Rag Washer: Sarath Olivera MD Lymphocytes/100 WBC (Bld) 7 % Low 24-43 [facility] Comment on above: Performed By: #### B C #### [address] [address] Rag Washer: Sarath Olivera MD Monocytes (Bld) [#/Vol] 1.03 10*3/uL Normal 0.10-1.20 [facility] Comment on above: Performed By: #### B C #### [address] [address] Rag Washer: Sarath Olivera MD Monocytes/100 WBC (Bld) 9 % Normal 3-12 [facility] Comment on above: Performed By: #### B C #### [address] [address] Rag Washer: Sarath Olivera MD Neutrophil (Seg) 83 % High 36-65 [facility] Comment on above: Performed By: #### B C #### [address] [address] Rag Washer: Sarath Olivera MD Erythrocyte distribution width (RBC) [Ratio] 16.0 % High 11.8-14.4 [facility] Comment on above: Performed By: #### B C #### [address] [address] Rag Washer: Sarath Olivera MD Hematocrit (Bld) [Volume fraction] 28.1 % Low 36.3-47.1 [facility] Comment on above: Performed By: #### B C #### [address] [address] Rag Washer: Sarath Olivera MD Hemoglobin (Bld) [Mass/Vol] 8.5 g/dL Low 11.9-15.1 [facility] Comment on above: Performed By: #### B C #### [address] [address] Rag Washer: Sarath Olivera MD MCH (RBC) [Entitic mass] 30.0 pg Normal 25.2-33.5 [facility] Comment on above: Performed By: #### B C #### [address] [address] Rag Washer: Sarath Olivera MD MCHC (RBC) [Mass/Vol] 30.2 g/dL Normal 28.4-34.8 [facility] Comment on above: Performed By: #### B C #### [address] [address] Rag Washer: Sarath Olivera MD MCV (RBC) [Entitic vol] 99.3 fL Normal 82.6-102.9 [place] [facility] Comment on above: Performed By: #### B C #### [address] [address] Rag Washer: Sarath Olivera MD NRBC Automated 0.9 per 100 WBC High 0.0 [facility] Comment on above: Performed By: #### B C #### [address] [address] Rag Washer: Sarath Olivera MD Platelet Count See Reflexed IPF Result Normal 138-453 [facility] Comment on above: Performed By: #### B C #### [address] [address] Rag Washer: Sarath Olivera MD RBC (Bld) [#/Vol] 2.83 10*6/uL Low 3.95-5.11 [facility] Comment on above: Performed By: #### B C #### [address] [address] Rag Washer: Sarath Olivera MD RBC morphology finding Nom (Bld) ANISOCYTOSIS PRESENT Normal [facility] Comment on above: Performed By: #### B C #### [address] [address] Rag Washer: Sarath Olivera MD WBC (Bld) [#/Vol] 11.6 10*3/uL High 3.5-11.3 [facility] Comment on above: Performed By: #### B C #### [address] [address] Rag Washer: Sarath Olivera MD Basic Metab w/rfx MGon 01-07 Anion gap [Moles/Vol] 8 mmol/L Low 9-16 [facility] Comment on above: Performed By: #### B C #### [address] [address] Rag Washer: Sarath Olivera MD Calcium [Mass/Vol] 7.6 mg/dL Low 8.6-10.4 [facility] Comment on above: Performed By: #### B C #### [address] [address] Rag Washer: Sarath Olivera MD Chloride [Moles/Vol] 114 mmol/L High 98-[address] [facility] Comment on above: Performed By: #### B C #### [address] [address] Rag Washer: Sarath Olivera MD CO2 [Moles/Vol] 20 mmol/L Normal 20-31 [facility] Comment on above: Performed By: #### B C #### [address] [address] Rag Washer: Sarath Olivera MD Creatinine [Mass/Vol] 1.1 mg/dL High 0.50-0.90 [facility] Comment on above: Performed By: #### B C #### [address] [address] Rag Washer: Sarath Olivera MD GFR/1.73 sq M.predicted among non-blacks MDRD (S/P/Bld) [Vol rate/Area] 48 mL/min/{1.73_m2} Low >60 [facility] Comment on above: Result Comment: These results [...] renal tubular secretion. Performed By: #### B C #### [address] [address] Rag Washer: Sarath Olivera MD Glucose [Mass/Vol] 158 mg/dL High 74-99 [facility] Comment on above: Performed By: #### B C #### [address] [address] Rag Washer: Sarath Olivera MD Potassium [Moles/Vol] 5.1 mmol/L Normal 3.7-5.3 [facility] Comment on above: Performed By: #### B C #### [address] [address] Rag Washer: Sarath Olivera MD Sodium [Moles/Vol] 142 mmol/L Normal 136-145 [facility] Comment on above: Performed By: #### B C #### [address] [address] Rag Washer: Sarath Olivera MD Urea nitrogen [Mass/Vol] 31 mg/dL High 8-23 [facility] Comment on above: Performed By: #### B C #### [address] [address] Rag Washer: Sarath Olivera MD CBC with Diffon 01-08-2024 Abs. Basophil 0.00 k/uL Normal 0.0-0.2 [facility] Comment on above: Performed By: #### B C #### [address] [address] Rag Washer: Sarath Olivera MD Abs.Imm.Granulocyte 0.13 k/uL Normal 0.00-0.30 [facility] Comment on above: Performed By: #### B C #### [address] [address] Rag Washer: Sarath Olivera MD Abs.Neutrophil (Seg) 10.66 k/uL High 1.8-7.[address] [facility] Comment on above: Performed By: #### B C #### [address] [address] Rag Washer: Sarath Olivera MD Basophils/100 WBC (Bld) 0 % Normal 0-2 [facility] Comment on above: Performed By: #### B C #### [address] [address] Rag Washer: Sarath Olivera MD Eosinophils (Bld) [#/Vol] 0.00 10*3/uL Normal 0.0-0.4 [facility] Comment on above: Performed By: #### B C #### [address] [address] Rag Washer: Sarath Olivera MD Eosinophils/100 WBC (Bld) 0 % Low 1-4 [facility] Comment on above: Performed By: #### B C #### [address] [address] Rag Washer: Sarath Olivera MD Immature granulocytes/100 WBC (Bld) 1 % High 0 [facility] Comment on above: Performed By: #### B C #### [address] [address] Rag Washer: Sarath Olivera MD Lymphocytes (Bld) [#/Vol] 0.51 10*3/uL Low 1.0-4.8 [facility] Comment on above: Performed By: #### B C #### [address] [address] Rag Washer: Sarath Olivera MD Lymphocytes/100 WBC (Bld) 4 % Low 24-44 [facility] Comment on above: Performed By: #### B C #### [address] [address] Rag Washer: Sarath Olivera MD Monocytes (Bld) [#/Vol] 1.40 10*3/uL High 0.1-0.8 [facility] Comment on above: Performed By: #### B C #### [address] [address] Rag Washer: Sarath Olivera MD Monocytes/100 WBC (Bld) 11 % High 1-7 [facility] Comment on above: Performed By: #### B C #### [address] [address] Rag Washer: Sarath Olivera MD Morphology Manoj (Bld) [Interp] ANISOCYTOSIS PRESENT Normal [facility] Comment on above: Performed By: #### B C #### [address] [address] Rag Washer: Sarath Olivera MD Neutrophil (Seg) 84 % High 36-66 [facility] Comment on above: Performed By: #### B C #### [address] [address] Rag Washer: Sarath Olivera MD Erythrocyte distribution width (RBC) [Ratio] 15.8 % High 11.8-14.4 [facility] Comment on above: Performed By: #### B C #### [address] [address] Rag Washer: Sarath Olivera MD Hematocrit (Bld) [Volume fraction] 26.2 % Low 36.3-47.1 [facility] Comment on above: Performed By: #### B C #### [address] [address] Rag Washer: Sarath Olivera MD Hemoglobin (Bld) [Mass/Vol] 8.4 g/dL Low 11.9-15.1 [facility] Comment on above: Performed By: #### B C #### [address] [address] Rag Washer: Sarath Olivera MD MCH (RBC) [Entitic mass] 29.8 pg Normal 25.2-33.5 [facility] Comment on above: Performed By: #### B C #### [address] [address] Rag Washer: Sarath Olivera MD MCHC (RBC) [Mass/Vol] 32.1 g/dL Normal 28.4-34.8 [facility] Comment on above: Performed By: #### B C #### [address] [address] Rag Washer: Sarath Olivera MD MCV (RBC) [Entitic vol] 92.9 fL Normal 82.6-102.9 [facility] Comment on above: Performed By: #### B C #### [address] [address] Rag Washer: Sarath Olivera MD NRBC Automated 0.3 per 100 WBC High 0.0 [facility] Comment on above: Performed By: #### B C #### [address] [address] Rag Washer: Sarath Olivera MD Platelet Count See Reflexed IPF Result Normal [facility] [place] [address] Comment on above: Performed By: #### B C #### [address] [address] Rag Washer: Sarath Olivera MD Platelet, Fluoresc. 65 k/uL Low 138-[address] [place] [address] Comment on above: Performed By: #### B C #### [address] [address] Rag Washer: Sarath Olivera MD PLT, Immature Fract. 11.2 % High 1.1-10.[address] [facility] Comment on above: Performed By: #### B C #### [address] [address] Rag Washer: Sarath Olivera MD RBC (Bld) [#/Vol] 2.82 10*6/uL Low 3.95-5.11 [facility] Comment on above: Performed By: #### B C #### [address] [address] Rag Washer: Sarath Olivera MD WBC (Bld) [#/Vol] 12.7 10*3/uL High 3.5-11.3 [facility] Comment on above: Performed By: #### B C #### [facility] [address] [place] [address] Rag Washer: Sarath Olivera MD Calcium, Ionicon 01-08-2024 Calcium [Moles/Vol] 1.12 mmol/L Low 1.13-1.[address] [facility] Comment on above: Performed By: #### B C #### [facility] [address] [place] [address] Rag Washer: Sarath Olivera MD Magnesiumon 01-08-2024 Magnesium [Mass/Vol] 2.0 mg/dL Normal 1.6-2.[address] [facility] Comment on above: Performed By: #### B C #### [facility] [address] [place] [address] Rag Washer: Sarath Olivera MD Phosphorus, Inorg.on 024 Phosphorus, Inorg. 1.9 mg/dL Low 2.5-4.5 [facility] Comment on above: Performed By: #### B C #### [facility] [address] [place] [address] Rag Washer: Sarath Olivera MD XR CHEST PORTABLEon 01-08-20 24 XR CHEST PORTABLE EXAMINATION: ONE XRAY [...] Berhane Pressley MD 01/08/24 Final result Normal [facility] Arterial Bld Gas,POCon 01-06 FIO2 60.0 Normal [facility] HCO3 (Bld) [Moles/Vol] 20.2 mmol/L Low 21.0-28.0 [facility] Negative Base Excess (calc) 4.5 mmol/L High 0.0-2.0 [facility] Oxygen saturation in Blood 99.4 % High 94.0-98.0 [facility] pCO2, Arterial 34.6 mm Hg Low 35.0-48.0 [facility] pH, Arterial 7.374 Normal 7.350-7.450 [facility] pO2, Arterial 155.4 mm Hg High 83.0-108.0 [facility] Site Drawn Arterial Line Normal [facility] FIO2 70.0 Normal [facility] HCO3 (Bld) [Moles/Vol] 21.2 mmol/L Normal 21.0-28.0 [facility] Negative Base Excess (calc) 4.4 mmol/L High 0.0-2.0 [facility] Oxygen saturation in Blood 97.4 % Normal 94.0-98.0 [facility] pCO2, Arterial 39.8 mm Hg Normal 35.0-48.0 [facility] pH, Arterial 7.333 Low 7.350-7.450 [facility] pO2, Arterial 100.9 mm Hg Normal 83.0-108.0 [facility] FIO2 80.0 Normal [facility] HCO3 (Bld) [Moles/Vol] 21.0 mmol/L Normal 21.0-28.0 [facility] Negative Base Excess (calc) 4.1 mmol/L High 0.0-2.0 [facility] Oxygen saturation in Blood 97.2 % Normal 94.0-98.0 [facility] pCO2, Arterial 37.9 mm Hg Normal 35.0-48.0 [facility] pH, Arterial 7.353 Normal 7.350-7.450 [facility] pO2, Arterial 96.9 mm Hg Normal 83.0-108.0 [facility] Site Drawn Arterial Line Normal [facility] Basic Metab w/rfx MGon 01-06 Anion gap [Moles/Vol] 8 mmol/L Low 9-16 [facility] Comment on above: Performed By: #### B C #### [address] [address] Rag Washer: Sarath Olivera MD Calcium [Mass/Vol] 7.7 mg/dL Low 8.6-10.4 [facility] Comment on above: Performed By: #### B C #### [address] [address] Rag Washer: Sarath Olivera MD Chloride [Moles/Vol] 115 mmol/L High 98-[address] [facility] Comment on above: Performed By: #### B C #### [address] [address] Rag Washer: Sarath Olivera MD CO2 [Moles/Vol] 20 mmol/L Normal 20-31 [facility] Comment on above: Performed By: #### B C #### [facility] [address] [place] [address] Rag Washer: Sarath Olivera MD Creatinine [Mass/Vol] 1.3 mg/dL High 0.50-0.90 [facility] Comment on above: Performed By: #### B C #### [address] [address] Rag Washer: Sarath Olivera MD GFR/1.73 sq M.predicted among non-blacks MDRD (S/P/Bld) [Vol rate/Area] 41 mL/min/{1.73_m2} Low >60 [facility] Comment on above: Result Comment: These results [...] renal tubular secretion. Performed By: #### B C #### [address] [address] Rag Washer: Sarath Olivera MD Glucose [Mass/Vol] 150 mg/dL High 74-99 [facility] Comment on above: Performed By: #### B C #### [address] [address] Rag Washer: Sarath Olivera MD Potassium [Moles/Vol] 4.2 mmol/L Normal 3.7-5.3 [facility] Comment on above: Performed By: #### B C #### [address] [address] Rag Washer: Sarath Olivera MD Sodium [Moles/Vol] 143 mmol/L Normal 136-145 [facility] Comment on above: Performed By: #### B C #### [address] [address] Rag Washer: Sarath Olivera MD Urea nitrogen [Mass/Vol] 36 mg/dL High 8-23 [facility] Comment on above: Performed By: #### B C #### [address] [address] Rag Washer: Sarath Olivera MD CBC with Diffon 01-07-2024 Abs. Basophil 0.00 k/uL Normal 0.0-0.2 [facility] Comment on above: Performed By: #### B C #### [address] [address] Rag Washer: Sarath Olivera MD Abs.Imm.Granulocyte 0.00 k/uL Normal 0.00-0.30 [facility] Comment on above: Performed By: #### B C #### [place] [address] Rag Washer: Sarath Olivera MD Abs.Neutrophil (Seg) 8.81 k/uL High 1.8-7.[address] [facility] Comment on above: Performed By: #### B C #### [place] [address] Rag Washer: Sarath Olivera MD Basophils/100 WBC (Bld) 0 % Normal 0-2 [facility] Comment on above: Performed By: #### B C #### [place] [address] Rag Washer: Sarath Olivera MD Eosinophils (Bld) [#/Vol] 0.00 10*3/uL Normal 0.0-0.4 [facility] Comment on above: Performed By: #### B C #### [address] [address] Rag Washer: Sarath Olivera MD Eosinophils/100 WBC (Bld) 0 % Low 1-4 [facility] Comment on above: Performed By: #### B C #### [address] [address] Rag Washer: Sarath Olivera MD Immature granulocytes/100 WBC (Bld) 0 % Normal 0 [facility] Comment on above: Performed By: #### B C #### [address] [address] Rag Washer: Sarath Olivera MD Lymphocytes (Bld) [#/Vol] 0.69 10*3/uL Low 1.0-4.8 [facility] Comment on above: Performed By: #### B C #### [address] [place] [address] Rag Washer: Sarath Olivera MD Lymphocytes/100 WBC (Bld) 7 % Low 24-44 [facility] Comment on above: Performed By: #### B C #### [address] [address] Rag Washer: Sarath Olivera MD Monocytes (Bld) [#/Vol] 0.40 10*3/uL Normal 0.1-0.8 [facility] Comment on above: Performed By: #### B C #### [address] [address] Rag Washer: Sarath Olivera MD Monocytes/100 WBC (Bld) 4 % Normal 1-7 [facility] Comment on above: Performed By: #### B C #### [address] [address] Rag Washer: Sarath Olivera MD Morphology Manoj (Bld) [Interp] ANISOCYTOSIS PRESENT Normal [facility] Comment on above: Result Comment: INCR EASED BANDS PRESENT Performed By: #### B C #### [address] [address] Rag Washer: Sarath Olivera MD Neutrophil (Seg) 89 % High 36-66 [facility] Comment on above: Performed By: #### B C #### [address] [address] Rag Washer: Sarath Olivera MD Erythrocyte distribution width (RBC) [Ratio] 14.8 % High 11.8-14.4 [facility] Comment on above: Performed By: #### B C #### [address] [address] Rag Washer: Sarath Olivera MD Hematocrit (Bld) [Volume fraction] 25.3 % Low 36.3-47.1 [facility] Comment on above: Performed By: #### B C #### [address] [address] Rag Washer: Sarath Olivera MD Hemoglobin (Bld) [Mass/Vol] 8.3 g/dL Low 11.9-15.1 [facility] Comment on above: Performed By: #### B C #### [address] [address] Rag Washer: Sarath Olivera MD MCH (RBC) [Entitic mass] 30.3 pg Normal 25.2-33.5 [facility] Comment on above: Performed By: #### B C #### [address] [address] Rag Washer: Sarath Olivera MD MCHC (RBC) [Mass/Vol] 32.8 g/dL Normal 28.4-34.8 [facility] Comment on above: Performed By: #### B C #### [address] [address] Rag Washer: Sarath Olivera MD MCV (RBC) [Entitic vol] 92.3 fL Normal 82.6-102.9 [facility] Comment on above: Performed By: #### B C #### [address] [address] Rag Washer: Sarath Olivera MD NRBC Automated 0.0 per 100 WBC Normal 0.0 [facility] Comment on above: Performed By: #### B C #### [address] [address] Rag Washer: Sarath Olivera MD Platelet Count See Reflexed IPF Result Normal 138-453 [facility] Comment on above: Performed By: #### B C #### [address] [address] Rag Washer: Sarath Olivera MD Platelet, Fluoresc. 70 k/uL Low 138-453 [facility] Comment on above: Performed By: #### B C #### [address] [address] Rag Washer: Sarath Olivera MD PLT, Immature Fract. 10.5 % High 1.1-10.[address] [facility] Comment on above: Performed By: #### B C #### [address] [address] Rag Washer: Sarath Olivera MD RBC (Bld) [#/Vol] 2.74 10*6/uL Low 3.95-5.11 [facility] Comment on above: Performed By: #### B C #### [address] [address] Rag Washer: Sarath Olivera MD WBC (Bld) [#/Vol] 9.9 10*3/uL Normal 3.5-11.3 [facility] Comment on above: Performed By: #### B C #### [place] [address] Rag Washer: Sarath Olivera MD Calcium, Ionicon 01-07-2024 Calcium [Moles/Vol] 1.13 mmol/L Normal 1.13-1.[address] [facility] Comment on above: Performed By: #### I OCAL ####[address] [phone] Director: Sarath Olivera MD Cult,Urineon 01-07-2024 Cult,Urine Specimen Description .CLEAN CATCH URINE Special Requests Site: Urine Culture NO GROWTH Report Status FINAL 01/07/2024 Normal [facility] Comment on above: Performed By: #### B C #### [address] [address] Rag Washer: Sarath Olivera MD Gl Hemostasis TEG w/Lysison 01-07-2024 Fibrinogen, Func TEG 17.9 mm Normal 15.0-32.[address] [facility] Comment on above: Performed By: #### B C #### [address] [address] Rag Washer: Sarath Olivera MD LY30 (Lysis) TEG 1.0 % Normal 0.0-2.6 [facility] Comment on above: Performed By: #### B C #### [address] [address] Rag Washer: Sarath Olivera MD MA Rapid TEG 54.9 mm Normal 52.0-70 [facility] Comment on above: Performed By: #### B C #### [address] [address] Rag Washer: Sarath Olivera MD R(Reaction Time) TEG 5.7 min Normal 4.6-9.[address] [facility] Comment on above: Performed By: #### B C #### [address] [address] Rag Washer: Sarath Olivera MD Glucose (POC)on 01-07-2024 Glucose [Mass/Vol] 161 mg/dL High 74-100 [facility] Glucose [Mass/Vol] 143 mg/dL High 74-100 [facility] Glucose [Mass/Vol] 157 mg/dL High 74-100 [facility] Glucose,Whole Bloodon 2023 Glucose [Mass/Vol] 142 mg/dL High 65-105 [facility] Glucose [Mass/Vol] 145 mg/dL High 65-105 [facility] Lactic Acid (POC)on 01-07-20 Lactate [Moles/Vol] 1.0 mmol/L Normal 0.56-1.39 [facility] Lactate [Moles/Vol] 1.0 mmol/L Normal 0.56-1.39 [facility] Lactate [Moles/Vol] 1.1 mmol/L Normal 0.56-1.39 [facility] Magnesiumon 01-07-2024 Magnesium [Mass/Vol] 1.9 mg/dL Normal 1.6-2.[address] [facility] Comment on above: Performed By: #### B C #### [facility] [address] [place], [place] [phone] Rag Washer: Sarath Olivera MD Phosphorus, Inorg.on 024 Phosphorus, Inorg. 3.1 mg/dL Normal 2.5-4.5 [facility] Comment on above: Performed By: #### B C #### [employer] [address] [place], [place] [id number] Rag Washer: Sarath Olivera MD XR CHEST PORTABLEon 01-07-20 XR CHEST PORTABLE EXAMINATION: ONE XRAY VIEW [...] Mayelin Reynolds MD 01/07/24 Final result Normal [facility] XR CHEST PORTABLE EXAMINATION: ONE XRAY VIEW [...] Deon Webb MD 01/07/24 Final result Normal [facility] Albuminon 01-06-2024 Albumin [Mass/Vol] 2.8 g/dL Low 3.5-5.2 [facility] Comment on above: Performed By: #### A LB, FT4, TSHX, GLYHGB, HH, VD25 ####[facility] [address] [place] [address] [facility] Director: Sarath Olivera MD Arterial Bld Gas,POCon 01-05 FIO2 100.0 Normal [facility] HCO3 (Bld) [Moles/Vol] 20.7 mmol/L Low 21.0-28.0 [facility] Negative Base Excess (calc) 3.5 mmol/L High 0.0-2.0 [facility] Oxygen saturation in Blood 99.5 % High 94.0-98.0 [facility] pCO2, Arterial 32.9 mm Hg Low 35.0-48.0 [facility] pH, Arterial 7.406 Normal 7.350-7.450 [facility] pO2, Arterial 164.9 mm Hg High 83.0-108.0 [facility] Site Drawn Arterial Line Normal [facility] FIO2 100.0 Normal [facility] HCO3 (Bld) [Moles/Vol] 19.1 mmol/L Low 21.0-28.0 [facility] Negative Base Excess (calc) 4.6 mmol/L High 0.0-2.0 [facility] Oxygen saturation in Blood 99.3 % High 94.0-98.0 [facility] pCO2, Arterial 29.3 mm Hg Low 35.0-48.0 [facility] pH, Arterial 7.421 Normal 7.350-7.450 [facility] pO2, Arterial 142.4 mm Hg High 83.0-108.0 [facility] Site Drawn Arterial Line Normal [facility] FIO2 3.0 Normal [facility] HCO3 (Bld) [Moles/Vol] 18.8 mmol/L Low 21.0-28.0 [facility] Negative Base Excess (calc) 5.5 mmol/L High 0.0-2.0 [facility] O2 Device Cannula Normal [facility] Oxygen saturation in Blood 90.0 % Low 94.0-98.0 [facility] pCO2, Arterial 30.6 mm Hg Low 35.0-48.0 [facility] pH, Arterial 7.395 Normal 7.350-7.450 [facility] pO2, Arterial 57.8 mm Hg Low 83.0-108.0 [facility] Site Drawn Right Radial Artery Normal [facility] FIO2 5.0 Normal [facility] HCO3 (Bld) [Moles/Vol] 12.6 mmol/L Low 21.0-28.0 [facility] Negative Base Excess (calc) 14.2 mmol/L High 0.0-2.0 [facility] Oxygen saturation in Blood 94.6 % Normal 94.0-98.0 [facility] pCO2, Arterial 32.3 mm Hg Low 35.0-48.0 [facility] pH, Arterial 7.199 Critically low 7.350-7.450 [facility] pO2, Arterial 88.8 mm Hg Normal 83.0-108.0 [facility] Site Drawn Right Radial Artery Normal [facility] Basic Metab w/rfx MGon 01-05 Anion gap [Moles/Vol] 18 mmol/L High 9-16 [facility] Comment on above: Performed By: #### Ashley CELESTE UAMIC #### [facility] [address] [place] [address] Rag Washer: Sarath Olivera MD Calcium [Mass/Vol] 7.7 mg/dL Low 8.6-10.4 [facility] Comment on above: Performed By: #### Ashley CELESTE UAMIC #### [address] [address] Rag Washer: Sarath Olivera MD Chloride [Moles/Vol] 110 mmol/L High 98-[address] [facility] Comment on above: Performed By: #### Ashley CELESTE UAMIC #### [facility] [address] [place] [address] Rag Washer: Sarath Olivera MD CO2 [Moles/Vol] 15 mmol/L Low 20-31 [facility] Comment on above: Performed By: ###Everton CELESTE UAMIC #### [facility] [address] [place] [address] Rag Washer: Sarath Olivera MD Creatinine [Mass/Vol] 1.9 mg/dL High 0.50-0.90 [facility] Comment on above: Performed By: #### Ashley CELESTE UAMIC #### [facility] [address] [place] [address] Rag Washer: Sarath Olivera MD GFR/1.73 sq M.predicted among non-blacks MDRD (S/P/Bld) [Vol rate/Area] 26 mL/min/{1.73_m2} Low >60 [facility] Comment on above: Result Comment: These results [...] renal tubular secretion. Performed By: #### Ashley CELESTE UAMIC #### [facility] [address] [place] [address] Rag Washer: Sarath Olivera MD Glucose [Mass/Vol] 173 mg/dL High 74-99 [facility] Comment on above: Performed By: #### Ashley CELESTE UAMIC #### [facility] [address] [place] [address] Rag Washer: Sarath Olivera MD Potassium [Moles/Vol] 4.6 mmol/L Normal 3.7-5.3 [facility] Comment on above: Performed By: #### Ashley CELESTE UAMIC #### [facility] [address] [place] [address] Rag Washer: Sarath Olivera MD Sodium [Moles/Vol] 143 mmol/L Normal 136-145 [facility] Comment on above: Performed By: #### Ashley CELESTE UAMIC #### [facility] [address] [place] [address] Rag Washer: Sarath Olivera MD Urea nitrogen [Mass/Vol] 32 mg/dL High 8-23 [facility] Comment on above: Performed By: #### Ashley CELESTE UAMIC #### [facility] [employer] ([employer]) [address] [place] [address] Rag Washer: Sarath Olivera MD Anion gap [Moles/Vol] 21 mmol/L High 9-16 [facility] Comment on above: Performed By: #### B C #### [facility] [address] [place] [address] Rag Washer: Sarath Olivera MD Calcium [Mass/Vol] 7.6 mg/dL Low 8.6-10.4 [facility] Comment on above: Performed By: #### B C #### [facility] [place] [address] Rag Washer: Sarath Olivera MD Chloride [Moles/Vol] 113 mmol/L High 98-[address] [facility] Comment on above: Performed By: #### B C #### [facility] [address] [place] [address] Rag Washer: Sarath Olivera MD CO2 [Moles/Vol] 9 mmol/L Critically low 20-31 [facility] Comment on above: Performed By: #### B C #### [facility] [place] [address] Rag Washer: Sarath Olivera MD Creatinine [Mass/Vol] 1.7 mg/dL High 0.50-0.90 [facility] Comment on above: Performed By: #### B C #### [address] [address] Rag Washer: Sarath Olivera MD GFR/1.73 sq M.predicted among non-blacks MDRD (S/P/Bld) [Vol rate/Area] 20 mL/min/{1.73_m2} Low >60 [facility] Comment on above: Result Comment: These results [...] renal tubular secretion. Performed By: #### B C #### [id number] [place] [address] Rag Washer: Sarath Olivera MD Glucose [Mass/Vol] 184 mg/dL High 74-99 [facility] Comment on above: Performed By: #### B C #### [id number] [place] [address] Rag Washer: Sarath Olivera MD Potassium [Moles/Vol] 4.7 mmol/L Normal 3.7-5.3 [facility] Comment on above: Performed By: #### B C #### [facility] [address] [place] [address] Rag Washer: Sarath Olivera MD Sodium [Moles/Vol] 143 mmol/L Normal 136-145 [facility] Comment on above: Performed By: #### B C #### [facility] [address] [place] [address] Rag Washer: Sarath Olivera MD Urea nitrogen [Mass/Vol] 30 mg/dL High 8-23 [facility] Comment on above: Performed By: #### B C #### [address] [address] Rag Washer: Sarath Olivera MD Basic Metabolic Profon 01-05 Anion gap [Moles/Vol] 9 mmol/L Normal 9-16 [facility] Comment on above: Performed By: #### B MP, IOCAL, PT, SRAVANTHI, CDP, MG ####[facility] [address] [place] [address] Lab Director: Sarath Olivera MD Calcium [Mass/Vol] 8.0 mg/dL Low 8.6-10.4 [facility] Comment on above: Performed By: #### B MP, IOCAL, PT, SRAVANTHI, CDP, MG ####[facility] [address] [place] [address] Lab Director: Sarath Olivera MD Chloride [Moles/Vol] 114 mmol/L High 98-[address] [facility] Comment on above: Performed By: #### B MP, IOCAL, PT, SRAVANTHI, CDP, MG ####[facility] [address] [place] [address] Lab Director: Sarath Olivera MD CO2 [Moles/Vol] 19 mmol/L Low 20-31 [facility] Comment on above: Performed By: #### B MP, IOCAL, PT, SRAVANTHI, CDP, MG ####[address] [place] [address] Lab Director: Sarath Olivera MD Creatinine [Mass/Vol] 1.4 mg/dL High 0.50-0.90 [facility] Comment on above: Performed By: #### B MP, IOCAL, PT, SRAVANTHI, CDP, MG ####[address] [address] Lab Director: Sarath Olivera MD GFR/1.73 sq M.predicted among non-blacks MDRD (S/P/Bld) [Vol rate/Area] 38 mL/min/{1.73_m2} Low >60 [facility] Comment on above: Result Comment: These results [...] renal tubular secretion. Performed By: #### B MP, IOCAL, PT, SRAVANTHI, CDP, MG ####[address] [place] [address] Lab Director: Sarath Olivera MD Glucose [Mass/Vol] 147 mg/dL High 74-99 [facility] Comment on above: Performed By: #### B MP, IOCAL, PT, SRAVANTHI, CDP, MG ####[address] [place] [address] Lab Director: Sarath Olivera MD Potassium [Moles/Vol] 4.4 mmol/L Normal 3.7-5.3 [facility] Comment on above: Performed By: #### B MP, IOCAL, PT, SRAVANTHI, CDP, MG ####[facility] [address] [place], [place] [address])[phone] Director: Sarath Olivera MD Sodium [Moles/Vol] 142 mmol/L Normal 136-145 [facility] Comment on above: Performed By: #### B MP, IOCAL, PT, SRAVANTHI, CDP, MG ####[facility] [address] [place], [place] [address])[phone] Director: Sarath Olivera MD Urea nitrogen [Mass/Vol] 36 mg/dL High 8-23 [facility] Comment on above: Performed By: #### B MP, IOCAL, PT, SRAVANTHI, CDP, MG ####[facility] [address] [place], [place] [address])[phone] Director: Sarath Olivera MD CBC with Diffon 01-06-2024 Abs. Basophil 0.00 k/uL Normal 0.0-0.2 [facility] Comment on above: Performed By: #### B MP, IOCAL, PT, SRAVANTHI, CDP, MG ####[facility] [address] [place], [place] [address])[phone] Director: Sarath Olivera MD Abs.Imm.Granulocyte 0.00 k/uL Normal 0.00-0.30 [facility] Comment on above: Performed By: #### B MP, IOCAL, PT, SRAVANTHI, CDP, MG ####[facility] [address] [place], [place] [address])[phone] Director: Sarath Olivera MD Abs.Neutrophil (Seg) 9.26 k/uL High 1.8-7.[address] [facility] Comment on above: Performed By: #### B MP, IOCAL, PT, SRAVANTHI, CDP, MG ####[facility] [address] [place], [place] [address])[phone] Director: Sarath Olivera MD Basophils/100 WBC (Bld) 0 % Normal 0-2 [facility] Comment on above: Performed By: #### B MP, IOCAL, PT, SRAVANTHI, CDP, MG ####[address] [address])[phone] Director: Sarath Olivera MD Eosinophils (Bld) [#/Vol] 0.00 10*3/uL Normal 0.0-0.4 [facility] Comment on above: Performed By: #### B MP, IOCAL, PT, SRAVANTHI, CDP, MG ####[facility] [address] [place] [address])[phone] Director: Sarath Olivera MD Eosinophils/100 WBC (Bld) 0 % Low 1-4 [facility] Comment on above: Performed By: #### B MP, IOCAL, PT, SRAVANTHI, CDP, MG ####[address] [address])[phone] Director: Sarath Olivera MD Immature granulocytes/100 WBC (Bld) 0 % Normal 0 [facility] Comment on above: Performed By: #### B MP, IOCAL, PT, SRAVANTHI, CDP, MG ####[address] [address])[phone] Director: Sarath Olivera MD Lymphocytes (Bld) [#/Vol] 0.52 10*3/uL Low 1.0-4.8 [facility] Comment on above: Performed By: #### B MP, IOCAL, PT, SRAVANTHI, CDP, MG ####[facility] [address] [place] [address])[phone] Director: Sarath Olivera MD Lymphocytes/100 WBC (Bld) 5 % Low 24-44 [facility] Comment on above: Performed By: #### B MP, IOCAL, PT, SRAVANTHI, CDP, MG ####[facility] [address] [place] [address] Lab Director: Sarath Olivera MD Monocytes (Bld) [#/Vol] 0.52 10*3/uL Normal 0.1-0.8 [facility] Comment on above: Performed By: #### B MP, IOCAL, PT, SRAVANTHI, CDP, MG ####[address] [phone] Director: Sarath Olivera MD Monocytes/100 WBC (Bld) 5 % Normal 1-7 [facility] Comment on above: Performed By: #### B MP, IOCAL, PT, SRAVANTHI, CDP, MG ####[address] [address])[phone] Director: Sarath Olivera MD Morphology Manoj (Bld) [Interp] Normal Normal [facility] Comment on above: Performed By: #### B MP, IOCAL, PT, SRAVANTHI, CDP, MG ####[address] [address])[phone] Director: Sarath Olivera MD Neutrophil (Seg) 90 % High 36-66 [facility] Comment on above: Performed By: #### B MP, IOCAL, PT, SRAVANTHI, CDP, MG ####[address] [address])[phone] Director: Sarath Olivera MD Erythrocyte distribution width (RBC) [Ratio] 14.5 % High 11.8-14.4 [facility] Comment on above: Performed By: #### B MP, IOCAL, PT, SRAVANTHI, CDP, MG ####[facility] [address] [place], [place] [address])[phone] Director: Sarath Olivera MD Hematocrit (Bld) [Volume fraction] 26.9 % Low 36.3-47.1 [facility] Comment on above: Performed By: #### B MP, IOCAL, PT, SRAVANTHI, CDP, MG ####[address] [place] [address] Lab Director: Sarath Olivera MD Hemoglobin (Bld) [Mass/Vol] 9.0 g/dL Low 11.9-15.1 [facility] Comment on above: Performed By: #### B MP, IOCAL, PT, SRAVANTHI, CDP, MG ####[address] [address] Lab Director: Sartah Olivera MD MCH (RBC) [Entitic mass] 30.8 pg Normal 25.2-33.5 [facility] Comment on above: Performed By: #### B MP, IOCAL, PT, SRAVANTHI, CDP, MG ####[place] [address] lab Director: Sarath Olivera MD MCHC (RBC) [Mass/Vol] 33.5 g/dL Normal 28.4-34.8 [facility] Comment on above: Performed By: #### B MP, IOCAL, PT, RSAVANTHI, CDP, MG ####[place] [address] Lab Director: Sarath Olivera MD MCV (RBC) [Entitic vol] 92.1 fL Normal 82.6-102.9 [facility] Comment on above: Performed By: #### B MP, IOCAL, PT, SRAVANTHI, CDP, MG ####[place] [address] Lab Director: Sarath Olivera MD NRBC Automated 0.0 per 100 WBC Normal 0.0 [facility] Comment on above: Performed By: #### B MP, IOCAL, PT, SRAVANTHI, CDP, MG ####[place] [address] Lab Director: Sarath Olivera MD Platelet mean volume (Bld) [Entitic vol] 12.9 fL Normal 8.1-13.5 [facility] Comment on above: Performed By: #### B MP, IOCAL, PT, SRAVANTHI, CDP, MG ####[facility] [address] [place] [address] Lab Director: Sarath Olivera MD Platelets (Bld) [#/Vol] 66 10*3/uL Low 138-453 [facility] Comment on above: Performed By: #### B MP, IOCAL, PT, SRAVANTHI, CDP, MG ####[facility] [address] [place] [address]([facility])[phone] Director: Sarath Olivera MD RBC (Bld) [#/Vol] 2.92 10*6/uL Low 3.95-5.11 [facility] Comment on above: Performed By: #### B MP, IOCAL, PT, SRAVANTHI, CDP, MG ####[address] [address])[phone] Director: Sarath Olivera MD WBC (Bld) [#/Vol] 10.3 10*3/uL Normal 3.5-11.3 [facility] Comment on above: Performed By: #### B MP, IOCAL, PT, SRAVANTHI, CDP, MG ####[facility] [address] [place] [address]([facility])[phone] Director: Sarath Olivera MD Abs. Basophil 0.00 k/uL Normal 0.00-0.20 [facility] Comment on above: Performed By: #### C DP ####[facility] [address] [place], [place] [address])[phone] Director: Sartah Olivera MD Abs.Imm.Granulocyte 0.00 k/uL Normal 0.00-0.30 [facility] Comment on above: Performed By: #### C DP ####[facility] [address] [place], [place] [address])[phone] Director: Sarath Olivera MD Abs.Neutrophil (Seg) 12.38 k/uL High 1.50-8.[address] [facility] Comment on above: Performed By: #### C DP ####[address] [address])[phone] Director: Sarath Olivera MD Basophils/100 WBC (Bld) 0 % Normal 0-2 [facility] Comment on above: Performed By: #### C DP ####[address] [address]([facility])[phone] Director: Sarath Olivera MD Eosinophils (Bld) [#/Vol] 0.00 10*3/uL Normal 0.00-0.44 [facility] Comment on above: Performed By: #### C DP ####[address] [address])[phone] Director: Sarath Olivera MD Eosinophils/100 WBC (Bld) 0 % Low 1-4 [facility] Comment on above: Performed By: #### C DP ####[address] [address])[phone] Director: Sarath Olivera MD Immature granulocytes/100 WBC (Bld) 0 % Normal 0 [facility] Comment on above: Performed By: #### C DP ####[address] [address])[phone] Director: Sarath Olivera MD Lymphocytes (Bld) [#/Vol] 0.91 10*3/uL Low 1.10-3.70 [facility] Comment on above: Performed By: #### C DP ####[address] [address])[phone] Director: Sarath Olivera MD Lymphocytes/100 WBC (Bld) 6 % Low 24-43 [facility] Comment on above: Performed By: #### C DP ####[address] [address] Lab Director: Sarath Olivera MD Monocytes (Bld) [#/Vol] 1.81 10*3/uL High 0.10-1.20 [facility] Comment on above: Performed By: #### C DP ####[address] [id number])[phone] Director: Sarath Olivera MD Monocytes/100 WBC (Bld) 12 % Normal 3-12 [facility] Comment on above: Performed By: #### C DP ####[address] [phone] Director: Sarath Olivera MD Morphology Manoj (Bld) [Interp] ANISOCYTOSIS PRESENT Normal [facility] Comment on above: Performed By: #### C DP ####[address] [address])[phone] Director: Sarath Olivera MD Neutrophil (Seg) 82 % High 36-65 [facility] Comment on above: Performed By: #### C DP ####[address] [address])[phone] Director: Sarath Olivera MD Erythrocyte distribution width (RBC) [Ratio] 14.9 % High 11.8-14.4 [facility] Comment on above: Performed By: #### C DP ####[address] [address])[phone] Director: Sarath Olivera MD Hematocrit (Bld) [Volume fraction] 25.3 % Low 36.3-47.1 [facility] Comment on above: Performed By: #### C DP ####[address] [address])[phone] Director: Sarath Olivera MD Hemoglobin (Bld) [Mass/Vol] 7.7 g/dL Low 11.9-15.1 [facility] Comment on above: Performed By: #### C DP ####[address] [place], [place] [id number])[phone] Director: Sarath Olivera MD MCH (RBC) [Entitic mass] 30.8 pg Normal 25.2-33.5 [facility] Comment on above: Performed By: #### C DP ####[address] [phone] Director: Sarath Olivera MD MCHC (RBC) [Mass/Vol] 30.4 g/dL Normal 28.4-34.8 [facility] Comment on above: Performed By: #### C DP ####[address] [phone] Director: Sarath Olivera MD MCV (RBC) [Entitic vol] 101.2 fL Normal 82.6-102.9 [facility] Comment on above: Performed By: #### C DP ####[address] [id number])[phone] Director: Sarath Olivera MD NRBC Automated 0.0 per 100 WBC Normal 0.0 [facility] Comment on above: Performed By: #### C DP ####[address] [id number])[phone] Director: Sarath Olivera MD Platelet mean volume (Bld) [Entitic vol] 12.7 fL Normal 8.1-13.5 [facility] Comment on above: Performed By: #### C DP ####[address] [phone] Director: Sarath Olivera MD Platelets (Bld) [#/Vol] 97 10*3/uL Low 138-453 [facility] Comment on above: Performed By: #### C DP ####[address] [phone] Director: Sarath Olivera MD RBC (Bld) [#/Vol] 2.50 10*6/uL Low 3.95-5.11 [facility] Comment on above: Performed By: #### C DP ####[address] [id number])[phone] Director: Sarath Olivera MD WBC (Bld) [#/Vol] 15.1 10*3/uL High 3.5-11.3 [facility] Comment on above: Performed By: #### C DP ####[address] [address])[phone] Director: Sarath Olivera MD Abs. Basophil 0.00 k/uL Normal 0.0-0.2 [facility] Comment on above: Performed By: #### Ashley CELESTE UAMIC #### [place] [address] Rag Washer: Sarath Olivera MD Abs.Imm.Granulocyte 0.00 k/uL Normal 0.00-0.30 [facility] Comment on above: Performed By: #### Ashley CELESTE UAMIC #### [address] [address] Rag Washer: Sarath Olivera MD Abs.Neutrophil (Seg) 17.28 k/uL High 1.8-7.[address] [facility] Comment on above: Performed By: #### Ashley CELESTE UAMIC #### [address] [address] Rag Washer: Sarath Olivera MD Basophils/100 WBC (Bld) 0 % Normal 0-2 [facility] Comment on above: Performed By: #### Ashley CELESTE UAMIC #### [address] [address] Rag Washer: Sarath Olivera MD Eosinophils (Bld) [#/Vol] 0.00 10*3/uL Normal 0.0-0.4 [facility] Comment on above: Performed By: #### Ashley CELESTE, UAMIC #### [facility] [address] [place] [address] Rag Washer: Sarath Olivera MD Eosinophils/100 WBC (Bld) 0 % Low 1-4 [facility] Comment on above: Performed By: #### Ashley CELESTE, UAMIC #### [facility] [address] [place] [address] Rag Washer: Sarath Olivera MD Immature granulocytes/100 WBC (Bld) 0 % Normal 0 [facility] Comment on above: Performed By: #### Ashley CELESTE, UAMIC #### [facility] [address] [place] [address] Rag Washer: Sarath Olivera MD Lymphocytes (Bld) [#/Vol] 1.41 10*3/uL Normal 1.0-4.8 [facility] Comment on above: Performed By: #### Ashley CELESTE, UAMIC #### [facility] [address] [place] [address] Rag Washer: Sarath Olivera MD Lymphocytes/100 WBC (Bld) 7 % Low 24-44 [facility] Comment on above: Performed By: #### Ashley CELESTE UAMIC #### [facility] [address] [place] [address] Rag Washer: Sarath Olivera MD Monocytes (Bld) [#/Vol] 1.41 10*3/uL High 0.1-0.8 [facility] Comment on above: Performed By: #### Ashley CELESTE, UAMIC #### [facility] [address] [place] [address] Rag Washer: Sarath Olivera MD Monocytes/100 WBC (Bld) 7 % Normal 1-7 [facility] Comment on above: Performed By: #### Ashley CELESTE, UAMIC #### [facility] [place] [address] Rag Washer: Sarath Olivera MD Morphology Manoj (Bld) [Interp] Normal Normal [facility] Comment on above: Performed By: #### Ashley AU, UAMIC #### [address] [address] Rag Washer: Sarath Olivera MD Neutrophil (Seg) 86 % High 36-66 [facility] Comment on above: Performed By: #### Ashley AU, UAMIC #### [address] [address] Rag Washer: Sarath Olivera MD Platelet, Fluoresc. Platelet clumps present, count appears decreased. Normal 138-453 [facility] Comment on above: Performed By: #### Ashley CELESTE UAMIC #### [address] [address] Rag Washer: Sarath Olivera MD Erythrocyte distribution width (RBC) [Ratio] 14.6 % High 11.8-14.4 [facility] Comment on above: Performed By: #### Ashley CELESTE, UAMIC #### [address] [address] Rag Washer: Sarath Olivera MD Hematocrit (Bld) [Volume fraction] 29.0 % Low 36.3-47.1 [facility] Comment on above: Performed By: #### Ashley AU, UAMIC #### [address] [address] Rag Washer: Sarath Olivera MD Hemoglobin (Bld) [Mass/Vol] 9.2 g/dL Low 11.9-15.1 [facility] Comment on above: Performed By: #### Ashley CELESTE, UAMIC #### [facility] [address] [place] [address] Rag Washer: Sarath Olivera MD MCH (RBC) [Entitic mass] 31.0 pg Normal 25.2-33.5 [facility] Comment on above: Performed By: #### Ashley CELESTE UAMIC #### [address] [address] Rag Washer: Sarath Olivera MD MCHC (RBC) [Mass/Vol] 31.7 g/dL Normal 28.4-34.8 [facility] Comment on above: Performed By: #### Ashley CELESTE UAMIC #### [address] [address] Rag Washer: Sarath Olivera MD MCV (RBC) [Entitic vol] 97.6 fL Normal 82.6-102.9 [facility] Comment on above: Performed By: #### Ashley CELESTE UAMIC #### [address] [address] Rag Washer: Sarath Olivera MD NRBC Automated 0.0 per 100 WBC Normal 0.0 [facility] Comment on above: Performed By: #### Ashley CELESTE UAMIC #### [address] [address] Rag Washer: Sarath Olivera MD Platelet Count See Reflexed IPF Result Normal 138-453 [facility] Comment on above: Performed By: #### Ashley CELESTE UAMIC #### [address] [address] Rag Washer: Sarath Olivera MD RBC (Bld) [#/Vol] 2.97 10*6/uL Low 3.95-5.11 [facility] Comment on above: Performed By: #### Ashley CELESTE UAMIC #### [address] [address] Rag Washer: Sarath Olivera MD WBC (Bld) [#/Vol] 20.1 10*3/uL High 3.5-11.3 [facility] Comment on above: Performed By: #### D AU, UAMIC #### [address] [address] Rag Washer: Sarath Olivera MD Abs. Basophil 0.00 k/uL Normal 0.0-0.2 [facility] Comment on above: Performed By: #### B C #### [address] [address] Rag Washer: Sarath Olivera MD Abs.Imm.Granulocyte 0.00 k/uL Normal 0.00-0.30 [facility] Comment on above: Performed By: #### B C #### [address] [address] Rag Washer: Sarath Olivera MD Abs.Neutrophil (Seg) 16.68 k/uL High 1.8-7.[address] [facility] Comment on above: Performed By: #### B C #### [address] [address] Rag Washer: Sarath Olivera MD Basophils/100 WBC (Bld) 0 % Normal 0-2 [facility] Comment on above: Performed By: #### B C #### [address] [address] Rag Washer: Sarath Olivera MD Eosinophils (Bld) [#/Vol] 0.00 10*3/uL Normal 0.0-0.4 [facility] Comment on above: Performed By: #### B C #### [address] [address] Rag Washer: Sarath Olivera MD Eosinophils/100 WBC (Bld) 0 % Low 1-4 [facility] Comment on above: Performed By: #### B C #### [address] [address] Rag Washer: Sarath Olivera MD Immature granulocytes/100 WBC (Bld) 0 % Normal 0 [facility] Comment on above: Performed By: #### B C #### [address] [address] Rag Washer: Sarath Olivera MD Lymphocytes (Bld) [#/Vol] 1.01 10*3/uL Normal 1.0-4.8 [facility] Comment on above: Performed By: #### B C #### [address] [address] Rag Washer: Sarath Olivera MD Lymphocytes/100 WBC (Bld) 5 % Low 24-44 [facility] Comment on above: Performed By: #### B C #### [address] [address] Rag Washer: Sarath Olivera MD Monocytes (Bld) [#/Vol] 2.41 10*3/uL High 0.1-0.8 [facility] Comment on above: Performed By: #### B C #### [address] [address] Rag Washer: Sarath Olivera MD Monocytes/100 WBC (Bld) 12 % High 1-7 [facility] Comment on above: Performed By: #### B C #### [address] [address] Rag Washer: Sarath Olivera MD Morphology Manoj (Bld) [Interp] MACROCYTOSIS PRESENT Normal [facility] Comment on above: Performed By: #### B C #### [address] [address] Rag Washer: Sarath Olivera MD Neutrophil (Seg) 83 % High 36-66 [facility] Comment on above: Performed By: #### B C #### [address] [address] Rag Washer: Sarath Olivera MD Erythrocyte distribution width (RBC) [Ratio] 14.5 % High 11.8-14.4 [facility] Comment on above: Performed By: #### B C #### [address] [address] Rag Washer: Sarath Olivera MD Hematocrit (Bld) [Volume fraction] 34.4 % Low 36.3-47.1 [facility] Comment on above: Performed By: #### B C #### [address] [address] Rag Washer: Sarath Olivera MD Hemoglobin (Bld) [Mass/Vol] 10.2 g/dL Low 11.9-15.1 [facility] Comment on above: Performed By: #### B C #### [address] [address] Rag Washer: Sarath Olivera MD MCH (RBC) [Entitic mass] 31.2 pg Normal 25.2-33.5 [facility] Comment on above: Performed By: #### B C #### [address] [address] Rag Washer: Sarath Olivera MD MCHC (RBC) [Mass/Vol] 29.7 g/dL Normal 28.4-34.8 [facility] Comment on above: Performed By: #### B C #### [address] [address] Rag Washer: Sarath Olivera MD MCV (RBC) [Entitic vol] 105.2 fL High 82.6-102.9 [facility] Comment on above: Performed By: #### B C #### [address] [address] Rag Washer: Sarath Olivera MD NRBC Automated 0.0 per 100 WBC Normal 0.0 [facility] Comment on above: Performed By: #### B C #### [address] [address] Rag Washer: Sarath Olivera MD Platelet mean volume (Bld) [Entitic vol] 12.8 fL Normal 8.1-13.5 [facility] Comment on above: Performed By: #### B C #### [facility] [address] [place] [address] Rag Washer: Sarath Olivera MD Platelets (Bld) [#/Vol] 126 10*3/uL Low 138-453 [facility] Comment on above: Performed By: #### B C #### [place] [address] Rag Washer: Sarath Olivera MD RBC (Bld) [#/Vol] 3.27 10*6/uL Low 3.95-5.11 [facility] Comment on above: Performed By: #### B C #### [address] [address] Rag Washer: Sarath Olivera MD WBC (Bld) [#/Vol] 20.1 10*3/uL High 3.5-11.3 [facility] Comment on above: Performed By: #### B C #### [address] [address] Rag Washer: Sarath Olivera MD CT CHEST ABDOMEN PELVIS WO C [facility] 01-06-2024 CT CHEST ABDOMEN PELVIS WO CONTRAST [...] Pierre Cao MD 01/06/24 Final result Normal [facility] CT CYSTOGRAM W CONTRASTon CT CYSTOGRAM W [...] material in the urinary bladder with a Maldonado catheter in place. Urinary bladder wall is [...] Jose Todd MD 01/06/24 Final result Normal [facility] CT HEAD WO CONTRASTon 2023 CT HEAD [...] Lucian Dee MD 01/06/24 Final result Normal [facility] Calcium, Ionicon 01-06-2024 Calcium [Moles/Vol] 1.14 mmol/L Normal 1.13-1.[address] [facility] Comment on above: Performed By: #### B MP, IOCAL, PT, SRAVANTHI, CDP, MG ####[facility] [address] [place] [address] Lab Director: Sarath Olivera MD Calcium [Moles/Vol] 1.45 mmol/L High 1.13-1.[address] [facility] Comment on above: Performed By: #### I OCAL, LACTIC, OHP ####[facility] [address] [place] [address] Lab Director: Sarath Olivera MD Calcium [Moles/Vol] 1.07 mmol/L Low 1.13-1.[address] [facility] Comment on above: Performed By: #### B C #### [facility] [address] [place] [address] Rag Washer: Sarath Olivera MD Calcium [Moles/Vol] 1.07 mmol/L Low 1.13-1.[address] [facility] Comment on above: Performed By: #### I OCAL ####[place] [address] Lab Director: Sarath Olivera MD Calcium [Moles/Vol] 1.09 mmol/L Low 1.13-1.[address] [facility] Comment on above: Performed By: #### B C #### [place] [address] Rag Washer: Sarath Olivera MD Creatinine,Random Uron 01-05 Creatinine [Mass/Vol] 155.0 mg/dL Normal 28.0-217.0 [facility] Comment on above: Performed By: #### U RNA, URCRE, CLARENCE ####[place], [place] [address])[phone] Director: Sarath Olivera MD Drug Scr, Abuse, Uron 2023 Fentanyl, Urine Sent to reference laboratory. Separate report to follow. Abnormal NEG [facility] Comment on above: Performed By: #### U RNA, URCRE, CLARENCE ####[place] [address] Lab Director: Sarath Olivera MD Interpretive Info Assay provides rapid clinical screening only. Presumptive positive results for Normal [facility] Comment on above: Result Comment: lega l purposes should be confirmed by another method. To request confirmation, please call the lab within 7 days of sample submission. Performed By: #### U RNA, URCRE, CLARENCE ####[place] [address] Lab Director: Sarath Olivera MD Opiate(s), Ur Positive Abnormal NEG [facility] Comment on above: Result Comment: Cuto ff: 300 ng/ml Performed By: #### U RNA, URCRE, CLARENCE ####[place] [address] Lab Director: Sarath Olivera MD Oxycodone, Urine Sent to reference laboratory. Separate report to follow. Abnormal NEG [facility] Comment on above: Performed By: #### U RNA, URCRE, CLARENCE ####[facility] [address] [place] [address] Lab Director: Sarath Olivera MD Amphetamine(s),Ur Negative Normal NEG [facility] Comment on above: Result Comment: Cuto ff: 1000 ng/mL Performed By: #### U RNA, URCRE, CLARENCE ####[facility] [address] [place], [place] [phone] Director: Sarath Olivera MD Barbiturate(s),Ur Negative Normal NEG [facility] Comment on above: Result Comment: Cuto ff: 200 ng/ml Performed By: #### U RNA, URCRE, CLARENCE ####[facility] [address] [place], [place] [phone] Director: Sarath Olivera MD Benzodiazepine(s) Negative Normal NEG [facility] Comment on above: Result Comment: Cuto ff: 200 ng/ml Performed By: #### U RNA, URCRE, CLARENCE ####[facility] [address] [place] [address] Lab Director: Sarath Olivera MD Cannabinoid(s),Ur Negative Normal NEG [facility] Comment on above: Result Comment: Cuto ff: 50 ng/ml Performed By: #### U RNA, URCRE, CLARENCE ####[facility] [address] [place], [place] [phone] Director: Sarath Olivera MD Cocaine Metabolite Negative Normal NEG [facility] Comment on above: Result Comment: Cuto ff: 300 ng/ml Performed By: #### U RNA, URCRE, CLARENCE ####[facility] [address] [place] [address] Lab Director: Sarath Olivera MD Methadone Ql (U) Negative Normal NEG [facility] Comment on above: Result Comment: Cuto ff: 300 ng/ml Performed By: #### U RNA, URCRE, CLARENCE ####[address] [place] [address] Lab Director: Sarath Olivera MD Phencyclidine, Ur Negative Normal NEG [facility] Comment on above: Result Comment: Cuto ff: 25 ng/ml Performed By: #### U RNA, URCRE, CLARENCE ####[address] [address] Lab Director: Sarath Olivera MD FLUORO FOR SURGICAL PROCEDUR ESon 01-06-2024 FLUORO FOR SURGICAL PROCEDURES Radiology exam is complete. No Radiologist dictation. Please follow up with ordering provider. Final result Normal [facility] Gl Hemostasis TEG w/Lysison 01-06-2024 Fibrinogen, Func TEG 20.5 mm Normal 15.0-32.[address] [facility] Comment on above: Performed By: #### Ashley CELESTE UAMIC #### [place] [address] Rag Washer: Sarath Olivera MD LY30 (Lysis) TEG 0.4 % Normal 0.0-2.6 [facility] Comment on above: Performed By: #### Ashley CELESTE UAMIC #### [address] [address] Rag Washer: Sarath Olivera MD MA Rapid TEG 61.6 mm Normal 52.0-70 [facility] Comment on above: Performed By: #### Ashley CELESTE UAMIC #### [address] [address] Rag Washer: Sarath Olivera MD R(Reaction Time) TEG 6.0 min Normal 4.6-9.[address] [facility] Comment on above: Performed By: #### Ashley CELESTE UAMIC #### [id number] [place] [address] Rag Washer: Sarath Olivera MD Fibrinogen, Func TEG 21.6 mm Normal 15.0-32.[address] [facility] Comment on above: Performed By: #### B C #### [address] [address] Rag Washer: Sarath Olivera MD LY30 (Lysis) TEG 0.1 % Normal 0.0-2.6 [facility] Comment on above: Performed By: #### B C #### [address] [address] Rag Washer: Sarath Olivera MD MA Rapid TEG 62.3 mm Normal 52.0-70.0 [facility] Comment on above: Performed By: #### B C #### [address] [address] Rag Washer: Sarath Olivera MD R(Reaction Time) TEG 5.7 min Normal 4.6-9.[address] [facility] Comment on above: Performed By: #### B C #### [address] [address] Rag Washer: Sarath Olivera MD Glucose (POC)on 01-06-2024 Glucose [Mass/Vol] 150 mg/dL High 74-100 [facility] Glucose [Mass/Vol] 146 mg/dL High 74-100 [facility] Glucose [Mass/Vol] 164 mg/dL High 74-100 [facility] Glucose,Whole Bloodon 2023 Glucose [Mass/Vol] 155 mg/dL High 65-105 [facility] Hemoglobin A1Con 01-06-2024 Glucose [Mass/Vol] 111 mg/dL Normal [facility] Comment on above: Result Comment: The ADA and AACC recommend providing the estimated average glucose result to permit better patient understanding of their HBA1c result. Performed By: #### D BOOKER UAMIC #### [facility] [address] [place] [address] Rag Washer: Sarath Olivera MD HbA1c (Bld) [Mass fraction] 5.5 % Normal 4.0-6.0 [facility] Comment on above: Performed By: #### D BOOKER UAMIC #### [facility] [address] [place] [address] Rag Washer: Sarath Olivera MD Hgb/Hcton 01-06-2024 Hematocrit (Bld) [Volume fraction] 29.1 % Low 36.3-47.1 [facility] Comment on above: Performed By: #### A LB, FT4, TSHX, GLYHGB, HH, VD25 ####[facility] [address] [place], [place] [phone] Director: Sarath Olivera MD Hemoglobin (Bld) [Mass/Vol] 8.6 g/dL Low 11.9-15.1 [facility] Comment on above: Performed By: #### A LB, FT4, TSHX, GLYHGB, HH, VD25 ####[facility] [address] [place], [place] [phone])[phone] Director: Sarath Olivera MD Lactate, Sepsison 01-06-2024 Lactic Acid,Sep Wbld 7.4 mmol/L High 0.5-1.[address] [facility] Comment on above: Performed By: #### B C #### [facility] [address] [place] [address] Rag Washer: Sarath Olivera MD Lactic Acidon 01-06-2024 Lactic Acid,Whole Bl 2.8 mmol/L High 0.7-2.[address] [facility] Comment on above: Performed By: #### I OCAL, LACTIC, OHP ####[facility] [address] [place] [address] Lab Director: Sarath Olivera MD Lactic Acid,Whole Bl 1.8 mmol/L Normal 0.7-2.[address] [facility] Comment on above: Performed By: #### B C #### [facility] [address] [place] [address] [phone] Rag Washer: Sarath Olivera MD Lactic Acid (POC)on 01-06-20 24 Lactate [Moles/Vol] 1.3 mmol/L Normal 0.56-1.39 [facility] Lactate [Moles/Vol] 1.5 mmol/L High 0.56-1.39 [facility] Lactate [Moles/Vol] 1.7 mmol/L High 0.56-1.39 [facility] Lactate [Moles/Vol] 7.2 mmol/L High 0.56-1.39 [facility] Liver Profileon 01-06-2024 Albumin [Mass/Vol] 3.0 g/dL Low 3.5-5.2 [facility] Comment on above: Performed By: #### Abel HERNANDEZ ALCB #### [facility] [address] [place] [address] Rag Washer: Sarath Olivera MD Albumin/Glob Ratio 2.0 Normal 1.0-2.5 [facility] Comment on above: Performed By: #### Abel HERNANDEZ ALCB #### [facility] [address] [place] [address] [phone] Rag Washer: Sarath Olivera MD Alkaline Phos 61 U/L Normal 35-104 [facility] Comment on above: Performed By: #### Abel HERNANDEZ ALCB #### [facility] [address] [place] [address] [phone] Rag Washer: Sarath Olivera MD ALT [Catalytic activity/Vol] 19 U/L Normal 10-35 [facility] Comment on above: Performed By: #### Abel HERNANDEZ ALCB #### [facility] [address] [place] [address] Rag Washer: Sarath Olivera MD AST [Catalytic activity/Vol] 62 U/L High 10-35 [facility] Comment on above: Performed By: #### L ACTIC, ALCB #### [address] [address] Rag Washer: Sarath Olivera MD Bilirubin [Mass/Vol] 0.3 mg/dL Normal 0.00-1.[address] [facility] Comment on above: Performed By: #### L ACTIC, ALCB #### [address] [address] Rag Washer: Sarath Olivera MD Bilirubin, Indirect Can not be calculated Normal 0.0-1 .0 [facility] Comment on above: Performed By: #### L ACTIC, ALCB #### [address] [address] Rag Washer: Sarath Olivera MD Bilirubin.indirect [Mass/Vol] mg/dL Normal 0.00-0.30 [facility] Comment on above: Performed By: #### L ACTIC, ALCB #### [facility] [address] [place] [address] Rag Washer: Sarath Olivera MD Globulin (S) [Mass/Vol] 1.8 g/dL Normal [facility] Comment on above: Performed By: #### L ACTIC, ALCB #### [facility] [address] [place] [address] Rag Washer: Sarath Olivera MD Protein [Mass/Vol] 4.8 g/dL Low 6.6-8.7 [facility] Comment on above: Performed By: #### L ACTIC, ALCB #### [facility] [address] [place] [address] Rag Washer: Sarath Olivera MD Magnesiumon 06-04-2024 Magnesium [Mass/Vol] 1.9 mg/dL Normal 1.6-2.[address] [facility] Comment on above: Performed By: #### B MP, IOCAL, PT, SRAVANTHI, CDP, MG ####[facility] [address] [place] [address] Lab Director: Sarath Olivera MD Magnesium [Mass/Vol] 1.6 mg/dL Normal 1.6-2.[address] [facility] Comment on above: Performed By: #### D AU, UAMIC #### [facility] [address] [place] [address] Rag Washer: Sarath Olivera MD Magnesium [Mass/Vol] 1.8 mg/dL Normal 1.6-2.[address] [facility] Comment on above: Result Comment: QA F LAGS AND/OR RANGES MODIFIED BY DEMOGRAPHIC UPDATE ON 01/05 AT 0131 Performed By: #### B C #### [facility] [address] [place] [address] Rag Washer: Sarath Olivera MD Open Heart Panelon 4 Jerrell Test INFORMATION NOT PROVIDED Normal [facility] Comment on above: Performed By: #### I OCAL, LACTIC, OHP ####[facility] [address] [place] [address] Lab Director: Sarath Olivera MD Body Temp. 37.0 Normal [facility] Comment on above: Performed By: #### I OCAL, LACTIC, OHP ####[facility] [address] [place] [address] Lab Director: Sarath Olivera MD Carboxy Hgb 0.8 % Normal 0-5 [facility] Comment on above: Result Comment: Reference Range: Non-Smokers 0-2% Average Smoker 2-4% Heavy Smoker <10% Performed By: #### I OCAL, LACTIC, OHP ####[facility] [address] [place] [address] Lab Director: Sarath Olivera MD Chloride [Moles/Vol] 116 mmol/L High 98-[address] [facility] Comment on above: Performed By: #### I OCAL, LACTIC, OHP ####[facility] [address] [place] [address] Lab Director: Sarath Olivera MD FIO2 50% Normal [facility] Comment on above: Performed By: #### I OCAL, LACTIC, OHP ####[facility] [address] [place], [place] [phone] Director: Sarath Olivera MD Glucose [Mass/Vol] 138 mg/dL High 65-105 [facility] Comment on above: Performed By: #### I OCAL, LACTIC, OHP ####[facility] [address] [place] [address] Lab Director: Sarath Olivera MD HCO3 (Bld) [Moles/Vol] 19.3 mmol/L Low 22-27 [facility] Comment on above: Performed By: #### I OCAL, LACTIC, OHP ####[facility] [address] [place], [place] [phone] Director: Sarath Olivera MD Hematocrit (Bld) [Volume fraction] 25.5 % Low 36.3-47.1 [facility] Comment on above: Performed By: #### I OCAL, LACTIC, OHP ####[facility] [address] [place], [place] [phone] Director: Sarath Olivera MD Hemoglobin (Bld) [Mass/Vol] 8.2 g/dL Low 11.9-15.1 [facility] Comment on above: Performed By: #### I OCAL, LACTIC, OHP ####[facility] [address] [place] [address] Lab Director: Sarath Olivera MD Negative Base Excess 6.1 mmol/L High 0.0-2.[address] [facility] Comment on above: Performed By: #### I OCAL, LACTIC, OHP ####[facility] [address] [place], [place] [phone] Director: Sarath Olivera MD Oxygen (Bld) [Partial pressure] 106.0 mm[Hg] High 75-95 [facility] Comment on above: Performed By: #### I OCAL, LACTIC, OHP ####[facility] [address] [place], [place] [phone] Director: Sarath Olivera MD Oxygen saturation in Blood 97.7 % Normal 94-100 [facility] Comment on above: Performed By: #### I OCAL, LACTIC, OHP ####[facility] [address] [place] [address] [phone] Director: Sarath Olivera MD pCO2 40.0 mmHg Normal 32-45 [facility] Comment on above: Performed By: #### I OCAL, LACTIC, OHP ####[facility] [address] [place], [place] [phone] Director: Sarath Olivera MD pH (Bld) 7.304 [pH] Low 7.350-7.450 [facility] Comment on above: Performed By: #### I OCAL, LACTIC, OHP ####[facility] [address] [place], [place] [phone] Director: Sarath Olivera MD Potassium [Moles/Vol] 4.6 mmol/L Normal 3.6-5.0 [facility] Comment on above: Performed By: #### I OCAL, LACTIC, OHP ####[facility] [address] [place], [place] [phone] Director: Sarath Olivera MD Sodium [Moles/Vol] 142 mmol/L Normal 136-145 [facility] Comment on above: Performed By: #### I OCAL, LACTIC, OHP ####[facility] [address] [place] [address] Lab Director: Sarath Olivera MD Jerrell Test INFORMATION NOT PROVIDED [facility] Comment on above: Performed By: #### B C #### [address] [address] Rag Washer: Sarath Olivera MD Body Temp. 36.0 Normal [facility] Comment on above: Performed By: #### B C #### [address] [address] Rag Washer: Sarath Olivera MD Carboxy Hgb 1.6 % Normal 0-5 [facility] Comment on above: Result Comment: Reference Range: Non-Smokers 0-2% Average Smoker 2-4% Heavy Smoker <10% Performed By: #### B C #### [address] [address] Rag Washer: Sarath Olivera MD Chloride [Moles/Vol] 115 mmol/L High 98-[address] [facility] Comment on above: Performed By: #### B C #### [address] [address] Rag Washer: Sarath Olivera MD FIO2 70% Normal [facility] Comment on above: Performed By: #### B C #### [address] [address] Rag Washer: Sarath Olivera MD Glucose [Mass/Vol] 138 mg/dL High 65-105 [facility] Comment on above: Performed By: #### B C #### [address] [address] Rag Washer: Sarath Olivera MD HCO3 (Bld) [Moles/Vol] 17.8 mmol/L Low 22-27 [facility] Comment on above: Performed By: #### B C #### [address] [address] Rag Washer: Sarath Olivera MD Hematocrit (Bld) [Volume fraction] 25.6 % Low 36.3-47.1 [facility] Comment on above: Performed By: #### B C #### [address] [address] Rag Washer: Sarath Olivera MD Hemoglobin (Bld) [Mass/Vol] 8.2 g/dL Low 11.9-15.1 [facility] Comment on above: Performed By: #### B C #### [address] [address] Rag Washer: Sarath Olivera MD Negative Base Excess 8.4 mmol/L High 0.0-2.[address] [facility] Comment on above: Performed By: #### B C #### [address] [address] Rag Washer: Sarath Olivera MD Oxygen (Bld) [Partial pressure] 102.0 mm[Hg] High 75-95 [facility] Comment on above: Performed By: #### B C #### [address] [address] Rag Washer: Sarath Olivera MD Oxygen saturation in Blood 96.8 % Normal 94-100 [facility] Comment on above: Performed By: #### B C #### [address] [address] Rag Washer: Sarath Olivera MD pCO2 42.6 mmHg Normal 32-45 [facility] Comment on above: Performed By: #### B C #### [address] [address] Rag Washer: Sarath Olivera MD pH (Bld) 7.246 [pH] Low 7.350-7.450 [facility] Comment on above: Performed By: #### B C #### [address] [address] Rag Washer: Sarath Olivera MD Potassium [Moles/Vol] 4.5 mmol/L Normal 3.6-5.0 [facility] Comment on above: Performed By: #### B C #### [address] [address] Rag Washer: Sarath Olivera MD Sodium [Moles/Vol] 140 mmol/L Normal 136-145 [facility] Comment on above: Performed By: #### B C #### [place] [address] Rag Washer: Sarath Olivera MD PTon 01-06-2024 INR Coag (PPP) [Relative time] 1.4 {INR} Normal [facility] Comment on above: Result Comment: Therapeutic Range: Moderate Anticoagulant Intensity: INR = 2.0-3.0 High Anticoagulant Intensity: INR = 2.5-3.5 Performed By: #### B MP, IOCAL, PT, SRAVANTHI, CDP, MG ####[place], [place] [address])[phone] Director: Sarath Olivera MD PT Coag (PPP) [Time] 17.3 s High 11.7-14.[address] [facility] Comment on above: Performed By: #### B MP, IOCAL, PT, SRAVANTHI, CDP, MG ####[address] [address])[phone] Director: Sarath Olivera MD INR Coag (PPP) [Relative time] 1.6 {INR} Normal [facility] Comment on above: Result Comment: Therapeutic Range: Moderate Anticoagulant Intensity: INR = 2.0-3.0 High Anticoagulant Intensity: INR = 2.5-3.5 Performed By: #### L ACTMARILIN ALCB #### [facility] [address] [place] [phone] Rag Washer: Sarath Olivera MD PT Coag (PPP) [Time] 18.4 s High 11.7-14.[address] [facility] Comment on above: Performed By: #### L ACTMARILIN, ALCB #### [facility] [address] [place] [address] Rag Washer: Sarath Olivera MD INR Coag (PPP) [Relative time] 1.5 {INR} Normal [facility] Comment on above: Result Comment: Therapeutic Range: Moderate Anticoagulant Intensity: INR = 2.0-3.0 High Anticoagulant Intensity: INR = 2.5-3.5 Performed By: #### D BOOKER UAMIC #### [facility] [address] [place] [address] Rag Washer: Sarath Olivera MD PT Coag (PPP) [Time] 17.8 s High 11.7-14.[address] [facility] Comment on above: Performed By: #### Ashley CELESTE UAMIC #### [facility] [address] [place] [phone] Rag Washer: Sarath Olivera MD Phosphorus, Inorg.on 024 Phosphorus, Inorg. 3.2 mg/dL Normal 2.5-4.5 [facility] Comment on above: Performed By: #### B MP, IOCAL, PT, SRAVANTHI, CDP, MG ####[facility] [place] [address] Lab Director: Sarath Olivera MD Phosphorus, Inorg. 4.7 mg/dL High 2.5-4.5 [facility] Comment on above: Performed By: #### D BOOKER, UAMIC #### [facility] [address] [place] [address] Rag Washer: Sarath Olivera MD Phosphorus, Inorg. 4.7 mg/dL High 2.5-4.5 [facility] Comment on above: Performed By: #### B C #### [facility] [address] [place] [address] Rag Washer: Sarath Olivera MD Sodium, Random Uron 01-06-20 24 Sodium (U) [Moles/Vol] 25 mmol/L Normal [facility] Comment on above: Result Comment: No n ormal range established. Performed By: #### U RNA, URCRE, CLARENCE ####[facility] [address] [place] [address] Lab Director: Sarath Olivera MD TSH w/reflex to FT4on 2023 Thyroid Stim. Horm. 3.13 uIU/mL Normal 0.27-4.[address] [facility] Comment on above: Performed By: #### A LB, FT4, TSHX, GLYHGB, HH, VD25 ####[facility] [place] [address] Lab Director: Sarath Olivera MD Thyroxine, Freeon 01-06-2024 Thyroxine, Free 0.9 ng/dL Low 0.92-1.68 [facility] Comment on above: Performed By: #### A LB, FT4, TSHX, GLYHGB, HH, VD25 ####[facility] [address] [place] [address] Lab Director: Sarath Olivera MD Troponinon 01-06-2024 Troponin, High Sens 114 ng/L Critically high 0-14 [facility] Comment on above: Result Comment: High Sensitivity Troponin values cannot be compared with other Troponin methodologies. Performed By: #### L ACTIC, ALCB #### [facility] [address] [place] [address] Rag Washer: Sarath Olivera MD Type + Screenon 01-06-2024 Type + Screen Sample Expiration 01/08/2024,2359 Arm Band Number [id number] ABO/Rh(D) O POSITIVE Antibody Screen NEGATIVE Unit Number [id number] Blood Component Type Leukocyte Reduced Red Cell Unit Division 00 Status of Unit TRANSFUSED Transfusion Status OK TO TRANSFUSE Crossmatch Result COMPATIBLE Unit Number [id number] Blood Component Type Leukocyte Reduced Red Cell Unit Division 00 Status of Unit TRANSFUSED Transfusion Status OK TO TRANSFUSE Crossmatch Result COMPATIBLE Normal [facility] Comment on above: Performed By: #### B C #### [facility] [address] [place] [address] Rag Washer: Sarath Olivera MD Vitamin B12on 01-06-2024 Cobalamin (Vitamin B12) [Mass/Vol] 253 pg/mL Normal 232-1245 [facility] Comment on above: Performed By: #### B C #### [address] [address] Rag Washer: Sarath Olivera MD Vitamin D 25 OHon 01-06-2024 Vitamin D 25 OH 34.7 ng/mL Normal 30.0-100.0 [facility] Comment on above: Result Comment: Reference Range: Vitamin D status Range Deficiency <20 ng/mL Mild Deficiency 20-30 ng/mL Sufficiency 30-100 ng/mL Toxicity >100 ng/mL Performed By: #### D AU, UAMIC #### [address] [address] Rag Washer: Sarath Olivera MD Vitamin D 25 [place] 34.3 ng/mL Normal 30.0-100.0 [facility] Comment on above: Result Comment: Reference Range: Vitamin D status Range Deficiency <20 ng/mL Mild Deficiency 20-30 ng/mL Sufficiency 30-100 ng/mL Toxicity >100 ng/mL Performed By: #### L ACTIC, ALCB #### [address] [address] Rag Washer: Sarath Olivera MD XR CHEST PORTABLEon 01-06-20 [...] Chevy Parra MD 01/06/24 Final result Normal [facility] XR CHEST PORTABLE EXAMINATION: ONE XRAY VIEW [...] Concepción Godoy MD 01/06/24 Final result Normal [facility] XR FEMUR RIGHT (MIN 2 VIEWS) on [...] Chevy Parra MD 01/06/24 Final result Normal [facility] XR SHOULDER LEFT (MIN 2 VIEW S)on [...] Chevy Parra MD 01/06/24 Final result Normal [facility] Basic Metabolic Profon 01-04 Anion gap [Moles/Vol] 16 mmol/L Normal 9-16 [facility] Comment on above: Performed By: #### Ashley CELESTE UAMIC #### [employer] [address] [place] [address] [phone] Rag Washer: Sarath Olivera MD Calcium [Mass/Vol] 6.3 mg/dL Low 8.6-10.4 [facility] Comment on above: Performed By: #### Ashley CELESTE UAMIC #### [employer] [address] [place] [address] [phone] Rag Washer: Sarath Olivera MD Chloride [Moles/Vol] 115 mmol/L High 98-[address] [facility] Comment on above: Performed By: #### Ashley CELESTE UAMIC #### [facility] [address] [place] [address] Rag Washer: Sarath Olivera MD CO2 [Moles/Vol] 13 mmol/L Low 20-31 [facility] Comment on above: Performed By: #### Ashley CELESTE UAMIC #### [address] [address] Rag Washer: Sarath Olivera MD Creatinine [Mass/Vol] 1.3 mg/dL High 0.50-0.90 [facility] Comment on above: Performed By: #### Ashley CELESTE UAMIC #### [address] [address] Rag Washer: Sarath Olivera MD GFR/1.73 sq M.predicted among non-blacks MDRD (S/P/Bld) [Vol rate/Area] 29 mL/min/{1.73_m2} Low >60 [facility] Comment on above: Result Comment: These results [...] renal tubular secretion. Performed By: #### Ashley CELESTE UAMIC #### [address] [address] Rag Washer: Sarath Olivera MD Glucose [Mass/Vol] 174 mg/dL High 74-99 [facility] Comment on above: Performed By: #### Ashley CELESTE UAMIC #### [address] [address] Rag Washer: Sarath Olivera MD Potassium [Moles/Vol] 3.4 mmol/L Low 3.7-5.3 [facility] Comment on above: Result Comment: SPEC IMEN SLIGHTLY HEMOLYZED, RESULTS MAY BE ADVERSELY AFFECTED. Performed By: #### Ashley CELESTE UAMIC #### [address] [address] Rag Washer: Sarath Olivera MD Sodium [Moles/Vol] 144 mmol/L Normal 136-145 [facility] Comment on above: Performed By: #### Ashley CELESTE UAMIC #### [address] [address] Rag Washer: Sarath Olivera MD Urea nitrogen [Mass/Vol] 23 mg/dL Normal 8-23 [facility] Comment on above: Performed By: #### Ashley CELESTE UAMIC #### [address] [address] Rag Washer: Sarath Olivera MD CBCon 01-05-2024 Erythrocyte distribution width (RBC) [Ratio] 14.4 % Normal 11.8-14.4 [facility] Comment on above: Performed By: #### B C #### [address] [address] Rag Washer: Sarath Olivera MD Hematocrit (Bld) [Volume fraction] 31.8 % Low 36.3-47.1 [facility] Comment on above: Performed By: #### B C #### [address] [address] Rag Washer: Sarath Olivera MD Hemoglobin (Bld) [Mass/Vol] 9.9 g/dL Low 11.9-15.1 [facility] Comment on above: Performed By: #### B C #### [address] [address] Rag Washer: Sarath Olivera MD MCH (RBC) [Entitic mass] 31.2 pg Normal 25.2-33.5 [facility] Comment on above: Performed By: #### B C #### [address] [address] Rag Washer: Sarath Olivera MD MCHC (RBC) [Mass/Vol] 31.1 g/dL Normal 28.4-34.8 [facility] Comment on above: Performed By: #### B C #### [address] [address] Rag Washer: Sarath Olivera MD MCV (RBC) [Entitic vol] 100.3 fL Normal 82.6-102.9 [facility] Comment on above: Performed By: #### B C #### [address] [address] Rag Washer: Sarath Olivera MD NRBC Automated 0.0 per 100 WBC Normal 0.0 [facility] Comment on above: Performed By: #### B C #### [address] [address] Rag Washer: Sarath Olivera MD Platelet mean volume (Bld) [Entitic vol] 12.8 fL Normal 8.1-13.5 [facility] Comment on above: Performed By: #### B C #### [address] [address] Rag Washer: Sarath Olivera MD Platelets (Bld) [#/Vol] 146 10*3/uL Normal 138-453 [facility] Comment on above: Performed By: #### B C #### [address] [address] Rag Washer: Sarath Olivera MD RBC (Bld) [#/Vol] 3.17 10*6/uL Low 3.95-5.11 [facility] Comment on above: Performed By: #### B C #### [address] [address] Rag Washer: Sarath Olivera MD WBC (Bld) [#/Vol] 22.0 10*3/uL High 3.5-11.3 [facility] Comment on above: Performed By: #### B C #### [employer] [address] [place] [address] Rag Washer: Sarath Olivera MD CT CHEST [facility] CHEST ABDOMEN PELVIS WO CONTRAST [...] Amol Martínez MD 01/05/24 Final result Normal [facility] CT LUMBAR SPINE BONY RECONST RUCTIONon 01-05-2024 [...] Amol Martínez MD 01/05/24 Final result Normal [facility] CT THORACIC SPINE BONY RECON STRUCTIONon 01-05-2024 [...] Amol Martínez MD 01/05/24 Final result Normal [facility] Creatine Kinaseon 01-05-2024 CK [Catalytic activity/Vol] 725 U/L High 26-192 [facility] Comment on above: Performed By: #### Ashley CELESTE UAMIC #### [employer] [address] [place] [address] [phone] Rag Washer: Sarath Olivera MD Drug Scr, Abuse, Uron 2023 Fentanyl, Urine Sent to reference laboratory. Separate report to follow. Abnormal NEG [facility] Comment on above: Result Comment: OZZIE CHRISTINE NOTIFIED (Positive cutoff 5 ng/ml) Performed By: #### Ashley CELESTE UAMIC #### [employer] [address] [place] [address] [phone] Rag Washer: Sarath Olivera MD Oxycodone, Urine Sent to reference laboratory. Separate report to follow. Abnormal NEG [facility] Comment on above: Result Comment: OZZIE CHRISTINE NOTIFIED (Positive cutoff 100 ng/mL) Performed By: #### Ashley CELESTE UAMIC #### [employer] [address] [place] [address] [phone] Rag Washer: Sarath Olivera MD Interpretive Info Assay provides rapid clinical screening only. Presumptive positive results for Normal [facility] Comment on above: Result Comment: lega l purposes should be confirmed by another method. To request confirmation, please call the lab within 7 days of sample submission. Performed By: #### Ashley AU, UAMIC #### [facility] [address] [place] [phone] Rag Washer: Sarath Olivera MD Opiate(s), Ur Positive Abnormal NEG [facility] Comment on above: Result Comment: Cuto ff: 300 ng/ml Performed By: #### Ashley AU, UAMIC #### [facility] [address] [place] [address] Rag Washer: Sarath Olivera MD Amphetamine(s),Ur Negative Normal NEG [facility] Comment on above: Result Comment: Cuto ff: 1000 ng/mL Performed By: #### Ashley AU, UAMIC #### [facility] [address] [place] [address] Rag Washer: Sarath Olivera MD Barbiturate(s),Ur Negative Normal NEG [facility] Comment on above: Result Comment: Cuto ff: 200 ng/ml Performed By: #### Ashley AU, UAMIC #### [address] [address] Rag Washer: Sartah Olivera MD Benzodiazepine(s) Negative Normal NEG [facility] Comment on above: Result Comment: Cuto ff: 200 ng/ml Performed By: #### Ashley AU, UAMIC #### [facility] [address] [place] [address] Rag Washer: Sarath Olivera MD Cannabinoid(s),Ur Negative Normal NEG [facility] Comment on above: Result Comment: Cuto ff: 50 ng/ml Performed By: #### Ashley AU, UAMIC #### [facility] [address] [place] [address] Rag Washer: Sarath Olivera MD Cocaine Metabolite Negative Normal NEG [facility] Comment on above: Result Comment: Cuto ff: 300 ng/ml Performed By: #### D AU, UAMIC #### [address] [address] Rag Washer: Sarath Olivera MD Methadone Ql (U) Negative Normal NEG [facility] Comment on above: Result Comment: Cuto ff: 300 ng/ml Performed By: #### D AU, UAMIC #### [address] [address] Rag Washer: Sarath Olivera MD Phencyclidine, Ur Negative Normal NEG [facility] Comment on above: Result Comment: Cuto ff: 25 ng/ml Performed By: #### D BOOKER UAMIC #### [address] [address] Rag Washer: Sarath Olivera MD Ethanol Alcoholon 01-05-2024 Ethanol [Mass/Vol] mg/dL Normal <10 [facility] Comment on above: Performed By: #### B C #### [address] [address] Rag Washer: Sarath Olivera MD Ethanol percent <0.010 Normal <0.010 [facility] Comment on above: Performed By: #### B C #### [address] [address] Rag Washer: Sarath Olivera MD Global Hemostasis(TEG 6S)on 01-05-2024 Angle TEG 75.0 deg Normal 63.0-78.0 [facility] Comment on above: Performed By: #### B C #### [address] [address] Rag Washer: Sarath Olivera MD Fibrinogen, Func TEG 23.0 mm Normal 15.0-32.[address] [facility] Comment on above: Performed By: #### B C #### [address] [address] Rag Washer: Sarath Olivera MD K (Kinetics) TEG 1.1 min Normal 0.8-2.1 [facility] Comment on above: Performed By: #### B C #### [address] [address] Rag Washer: Sarath Olivera MD MA (Max Clot) TEG 65.4 mm Normal 52.0-69.0 [facility] Comment on above: Performed By: #### B C #### [address] [address] Rag Washer: Sarath Olivera MD MA Rapid TEG 65.2 mm Normal 52.0-70 [facility] Comment on above: Performed By: #### B C #### [address] [address] Rag Washer: Sarath Olivera MD R TEG w/Hep 4.6 min Normal 4.3-8.3 [facility] Comment on above: Performed By: #### B C #### [address] [address] Rag Washer: Sarath Olivera MD R(Reaction Time) TEG 4.7 min Normal 4.6-9.[address] [facility] Comment on above: Performed By: #### B C #### [address] [address] Rag Washer: Sarath Olivera MD Lactate, Sepsison 01-05-2024 Lactic Acid,Sep Wbld 7.9 mmol/L High 0.5-1.[address] [facility] Comment on above: Performed By: #### D AU, UAMIC #### [address] [address] Rag Washer: Sarath Olivera MD Lactic Acidon 01-05-2024 Lactic Acid,Whole Bl 7.0 mmol/L High 0.7-2.[address] [facility] Comment on above: Performed By: #### L ACTMARILIN ALCB #### [address] [address] Rag Washer: Sarath Olivera MD Myoglobinon 01-05-2024 Myoglobin [Mass/Vol] 3228 ng/mL High 25-[address] [facility] Comment on above: Performed By: #### D AU, UAMIC #### [address] [address] Rag Washer: Sarath Olivera MD PTon 01-05-2024 INR Coag (PPP) [Relative time] 1.4 {INR} Normal [facility] Comment on above: Result Comment: Therapeutic Range: Moderate Anticoagulant Intensity: INR = 2.0-3.0 High Anticoagulant Intensity: INR = 2.5-3.5 Performed By: #### B C #### [address] [address] Rag Washer: Sarath Olivera MD PT Coag (PPP) [Time] 16.6 s High 11.7-14.[address] [facility] Comment on above: Performed By: #### B C #### [address] [address] Rag Washer: Sarath Olivera MD Trauma Profileon 01-05-2024 Anion gap [Moles/Vol] 15 mmol/L Normal 9-16 [facility] Comment on above: Performed By: #### B C #### [address] [address] Rag Washer: Sarath Olivera MD Chloride [Moles/Vol] 111 mmol/L High 98-[address] [facility] Comment on above: Performed By: #### B C #### [address] [address] Rag Washer: Sarath Olivera MD CO2 [Moles/Vol] 17 mmol/L Low 20-31 [facility] Comment on above: Performed By: #### B C #### [address] [address] Rag Washer: Sarath Olivera MD Creatinine [Mass/Vol] 1.5 mg/dL High 0.50-0.90 [facility] Comment on above: Performed By: #### B C #### [address] [address] Rag Washer: Sarath Olivera MD Ethanol [Mass/Vol] mg/dL Normal <10 [facility] Comment on above: Performed By: #### B C #### [address] [address] Rag Washer: Sarath Olivera MD Ethanol percent <0.010 Normal <0.010 [facility] Comment on above: Performed By: #### B C #### [address] [address] Rag Washer: Sarath Olivera MD GFR/1.73 sq M.predicted among non-blacks MDRD (S/P/Bld) [Vol rate/Area] 23 mL/min/{1.73_m2} Low >60 [facility] Comment on above: Result Comment: These results [...] renal tubular secretion. Performed By: #### B C #### [address] [address] Rag Washer: Sarath Olivera MD Glucose [Mass/Vol] 191 mg/dL High 74-99 [facility] Comment on above: Performed By: #### B C #### [facility] [place] [address] [place] [address] Rag Washer: Sarath Olivera MD Potassium [Moles/Vol] 3.6 mmol/L Low 3.7-5.3 [facility] Comment on above: Performed By: #### B C #### [address] [address] Rag Washer: Sarath Olivera MD Sodium [Moles/Vol] 143 mmol/L Normal 136-145 [facility] Comment on above: Performed By: #### B C #### [facility] [address] [place] [address] Rag Washer: Sarath Olivera MD Urea nitrogen [Mass/Vol] 26 mg/dL High 8-23 [facility] Comment on above: Performed By: #### B C #### [address] [address] Rag Washer: Sarath Olivera MD HCG Screen, Blood Negative Normal NEG [facility] Comment on above: Result Comment: Spec imens with hCG levels near the threshold of the test (25 mIU/mL) may give a negative or indeterminate result. In such cases, another test should be performed with a new specimen in 48-72 hours. If early is suspected clinically in this setting, correlation with quantitative serum b-hCG level is suggested. [employer] has confirmed the use of plasma for this test. This has not been cleared or approved by the [place]. Food and Drug Administration. The FDA has determined that such clearance is not necessary. Performed By: #### B C #### [address] [address] Rag Washer: Sarath Olivera MD aPTT Coag (Bld) [Time] 28.7 s Normal 23.0-36.5 [facility] Comment on above: Result Comment: IV Heparin Therapy Range: 66.0-92.0 sec Performed By: #### B C #### [address] [address] Rag Washer: Sarath Olivera MD INR Coag (PPP) [Relative time] 4.4 {INR} Normal [facility] Comment on above: Result Comment: Therapeutic Range: Moderate Anticoagulant Intensity: INR = 2.0-3.0 High Anticoagulant Intensity: INR = 2.5-3.5 Performed By: #### B C #### [address] [address] Rag Washer: Sarath Olivera MD PT Coag (PPP) [Time] 40.5 s High 11.7-14.[address] [facility] Comment on above: Performed By: #### B C #### [address] [address] Rag Washer: Sarath Olivera MD Body Temp. 37.0 Normal [facility] Comment on above: Performed By: #### B C #### [address] [address] Rag Washer: Sarath Olivera MD Carboxy Hgb 2.7 % Normal 0-5 [facility] Comment on above: Result Comment: Reference Range: Non-Smokers 0-2% Average Smoker 2-4% Heavy Smoker <10% Performed By: #### B C #### [address] [address] Rag Washer: Sarath Olivera MD Erythrocyte distribution width (RBC) [Ratio] 14.4 % Normal 11.8-14.4 [facility] Comment on above: Performed By: #### B C #### [address] [address] Rag Washer: Sarath Olivera MD FIO2 INFORMATION NOT PROVIDED Normal [facility] Comment on above: Performed By: #### B C #### [address] [address] Rag Washer: Sarath Olivera MD HCO3 (Bld) [Moles/Vol] 17.2 mmol/L Low 24-30 [facility] Comment on above: Performed By: #### B C #### [address] [address] Rag Washer: Sarath Olivera MD Hematocrit (Bld) [Volume fraction] 32.6 % Low 36.3-47.1 [facility] Comment on above: Performed By: #### B C #### [address] [address] Rag Washer: Sarath Olivera MD Hemoglobin (Bld) [Mass/Vol] 9.8 g/dL Low 11.9-15.1 [facility] Comment on above: Performed By: #### B C #### [address] [address] Rag Washer: Sarath Olivera MD MCH (RBC) [Entitic mass] 31.4 pg Normal 25.2-33.5 [facility] Comment on above: Performed By: #### B C #### [address] [address] Rag Washer: Sarath Olivera MD MCHC (RBC) [Mass/Vol] 30.1 g/dL Normal 28.4-34.8 [facility] Comment on above: Performed By: #### B C #### [address] [address] Rag Washer: Sarath Olivera MD MCV (RBC) [Entitic vol] 104.5 fL High 82.6-102.9 [facility] Comment on above: Performed By: #### B C #### [address] [address] Rag Washer: Sarath Olivera MD Negative Base Excess 9.9 mmol/L High 0.0-2.[address] [facility] Comment on above: Performed By: #### B C #### [address] [address] Rag Washer: Sarath Olivera MD NRBC Automated 0.0 per 100 WBC Normal 0.0 [facility] Comment on above: Performed By: #### B C #### [address] [address] Rag Washer: Sarath Olivera MD Oxygen saturation in Blood 65.9 % Normal 60.0-85.0 [facility] Comment on above: Performed By: #### B C #### [address] [address] Rag Washer: Sarath Olivera MD pCO2 45.1 mm Hg Normal 39-55 [facility] Comment on above: Performed By: #### B C #### [address] [address] Rag Washer: Sarath Olivera MD pH (Bld) 7.205 [pH] Critically low 7.320-7.420 [facility] Comment on above: Performed By: #### B C #### [address] [address] Rag Washer: Sarath Olivera MD Platelet mean volume (Bld) [Entitic vol] 12.6 fL Normal 8.1-13.5 [facility] Comment on above: Performed By: #### B C #### [address] [address] Rag Washer: Sarath Olivera MD Platelets (Bld) [#/Vol] 140 10*3/uL Normal 138-453 [facility] Comment on above: Performed By: #### B C #### [address] [address] Rag Washer: Sarath Olivera MD pO2 41.3 mm Hg Normal 30-50 [facility] Comment on above: Performed By: #### B C #### [address] [address] Rag Washer: Sarath Olivera MD RBC (Bld) [#/Vol] 3.12 10*6/uL Low 3.95-5.11 [facility] Comment on above: Performed By: #### B C #### [address] [address] Rag Washer: Sarath Olivera MD WBC (Bld) [#/Vol] 22.6 10*3/uL High 3.5-11.3 [facility] Comment on above: Performed By: #### B C #### [address] [address] Rag Washer: Sarath Olivera MD Blood Bank BILL FOR SERVICES PERFORMED Normal [facility] Comment on above: Performed By: #### B C #### [address] [address] Rag Washer: Sarath Olivera MD Urinalysis w/ Microon 2023 Bilirubin, SemiQt,Ur Negative Abnormal NEG [facility] Comment on above: Performed By: #### Ashley CELESTE UAMIC #### [address] [address] Rag Washer: Sarath Olivera MD Casts 5 TO 10 Normal 0-2 [facility] Comment on above: Result Comment: HYAL INE Performed By: #### Ashley CELESTE UAMIC #### [address] [address] Rag Washer: Sarath Olivera MD Epithelial cells LM Ql (Urine sed) 20 TO 50 Normal 0-5 [facility] Comment on above: Performed By: #### D AU, UAMIC #### [facility] [address] [place] [address] Rag Washer: Sarath Olivera MD Mucus Strands 1+ Normal [facility] Comment on above: Performed By: #### D AU, UAMIC #### [facility] [address] [place] [address] Rag Washer: Sarath Olivera MD Urine RBC's 0 TO 2 Normal 0-2 [facility] Comment on above: Performed By: #### D AU, UAMIC #### [facility] [address] [place] [address] Rag Washer: Sarath Olivera MD Urine WBC's 20 TO 50 Normal 0-5 [facility] Comment on above: Performed By: #### Ashley AU, UAMIC #### [facility] [address] [place] [address] Rag Washer: Sarath Olivera MD Blood, Urine MODERATE Abnormal NEG [facility] Comment on above: Performed By: #### Ashley AU, UAMIC #### [address] [address] Rag Washer: Sarath Olivera MD Clarity (U) Turbid Abnormal CLEAR [facility] Comment on above: Performed By: #### Ashley AU, UAMIC #### [facility] [address] [place] [address] Rag Washer: Sarath Olivera MD Color (U) Dark Yellow Abnormal YEL [facility] Comment on above: Performed By: #### Ashley AU, UAMIC #### [facility] [address] [place] [address] Rag Washer: Sarath Olivera MD Glucose Ql (U) TRACE Abnormal NEG [facility] Comment on above: Performed By: #### Ashley AU, UAMIC #### [facility] [address] [place] [address] Rag Washer: Sarath Olivera MD Ketones Ql (U) Negative Normal NEG [facility] Comment on above: Performed By: #### Ashley AU, UAMIC #### [facility] [address] [address] Rag Washer: Sarath Olivera MD Leukocyte esterase Test strip Ql (U) TRACE Abnormal NEG [facility] Comment on above: Performed By: #### Ashley AU, UAMIC #### [facility] [address] [place] [address] Rag Washer: Sarath Olivera MD Nitrite,Ur Negative Normal NEG [facility] Comment on above: Performed By: #### Ashley AU, UAMIC #### [address] [address] Rag Washer: Sarath Olivera MD PH,Ur 5.0 Normal 5.0-8.0 [facility] Comment on above: Performed By: #### Ashley AU, UAMIC #### [address] [address] Rag Washer: Sarath Olivera MD Protein Ql (U) 2+ mg/dL Abnormal NEG [facility] Comment on above: Performed By: #### Ashley AU, UAMIC #### [address] [address] Rag Washer: Sarath Olivera MD Spec. [place],Ur 1.022 Normal 1.005-1.030 [facility] Comment on above: Performed By: #### Ashley AU, UAMIC #### [address] [address] Rag Washer: Sarath Olivera MD Urobilinogen,Ur Normal Normal 0.0-1.0 [facility] Comment on above: Performed By: #### Ashley AU, UAMIC #### [facility] [address] [place] [address] Rag Washer: Sarath Olivera MD XR ELBOW LEFT (MIN [...] Deon Webb MD 01/05/24 Final result Normal [facility] XR FEMUR LEFT (MIN 2 VIEWS)o n [...] Deon Webb MD 01/05/24 Final result Normal [facility] XR FEMUR RIGHT (MIN 2 VIEWS) on [...] Deon Webb MD 01/05/24 Final result Normal [facility] XR FEMUR RIGHT (MIN 2 VIEWS) EXAMINATION: [...] Deon Webb MD 01/05/24 Final result Normal [facility] XR KNEE RIGHT (1-2 VIEWS)on 01-05-2024 XR [...] Deon Webb MD 01/05/24 Final result Normal [facility] XR KNEE RIGHT (3 VIEWS)on XR KNEE [...] Deon Webb MD 01/05/24 Final result Normal [facility] XR SHOULDER LEFT (MIN 2 VIEW S)on [...] Deon Webb MD 01/05/24 Final result Normal [facility] CBC AUTO DIFFon 12-10-2022 BASO # 0.0 103/ul Normal 0.0-0.1 [facility] Comment on above: Performed By: #### C BC ####[facility] [address] [place], [place] [address]Dr. Sofiya Loznao Basophils/100 WBC (Bld) 0.4 % Normal 0.2-2.0 [facility] Comment on above: Performed By: #### C BC ####[facility] Zrrpdfphcw[address] [place], [place] [address]Dr. Sofiya Lozano EO # 0.0 103/ul Normal 0.0-0.7 [facility] Comment on above: Performed By: #### C BC ####[facility] Flmkcxwoxc[address] [place], [place] [address]Dr. Sofiya Lozano Eosinophils/100 WBC (Bld) 0.8 % Critically low 0.9-7.0 [facility] Comment on above: Performed By: #### C BC ####[facility] [address]vkvzyhgn[address] [place], [place] [address]Dr. Sofiya Lozano Erythrocyte distribution width (RBC) [Ratio] 13.6 % Normal 11.0-15.0 [facility] Comment on above: Performed By: #### C BC ####[facility] [address] [place], [place] [address]Dr. Sofiya Lozano Hematocrit (Bld) [Volume fraction] 41.0 % Normal 36.0-48.0 [facility] Comment on above: Performed By: #### C BC ####[facility] [address] [place] [address]Dr. Sofiya Lozano Hemoglobin (Bld) [Mass/Vol] 13.0 g/dL Normal 12.0-16.0 [facility] Comment on above: Performed By: #### C BC ####[facility] [address] [place] [address]Dr. Sofiya Lozano IG # 0.00 10e3/ul Normal 0.00-0.03 [facility] Comment on above: Performed By: #### C BC ####[facility] [address]wnetqmp[address] [place] [address]Dr. Sofiya Lozano IG % 0.0 % Normal 0.0-0.5 [facility] Comment on above: Performed By: #### C BC ####[facility] Migixbavzl[address] [place] [address]Dr. Sofiya Lozano LYMPH # 1.5 103/ul Normal 1.2-3.8 [facility] Comment on above: Performed By: #### C BC ####[facility] Sfpwpjwrgd4607 [place] [address]DrSandi Lozano Lymphocytes/100 WBC (Bld) 27.9 % Normal 20.5-60.0 [facility] Comment on above: Performed By: #### C BC ####[facility] [address]avqftre[address] [place] [address]DrSandi Lozano MANUAL DIFF REQ NO Normal [facility] Comment on above: Performed By: #### C BC ####[facility] Jgrcrvzxqk3152 [place] [address]DrSandi Lozano MCH (RBC) [Entitic mass] 30.0 pg Normal 26.7-34.0 [facility] Comment on above: Performed By: #### C BC ####[facility] [address]jhoxueik[address] [place] [address]Dr. Sofiya Lozano MCHC (RBC) [Mass/Vol] 31.7 g/dL Normal 29.9-35.2 [facility] Comment on above: Performed By: #### C BC ####[facility] [address] [place] [id number]. Sofiya Lozano MCV (RBC) [Entitic vol] 94.5 fL Normal 81.0-99.0 [facility] Comment on above: Performed By: #### C BC ####[facility] Qgelujlkml[address] [place], [place] [address]DrSandi Lozano MONO # 0.5 103/ul Normal 0.3-0.8 [facility] Comment on above: Performed By: #### C BC ####[facility] Il[address]xdfqf[address] [place], [place] [address]Dr. Sofiya Lozano Monocytes/100 WBC (Bld) 8.6 % Normal 1.7-12.0 [facility] Comment on above: Performed By: #### C BC ####[facility] Dzwkybwhox[address] [place], [place] [address]Dr. Sofiya Lozano NEUT # 3.3 103/ul Normal 1.4-6.5 [facility] Comment on above: Performed By: #### C BC ####[facility] Jxbef[address] [place], [place] [address]DrSandi Lzoano Neutrophils/100 WBC (Bld) 62.3 % Normal 43.0-75.0 [facility] Comment on above: Performed By: #### C BC ####[facility] U[address]sw[address] [place], [place] [address]Dr. Sofiya Lozano Platelet mean volume (Bld) [Entitic vol] 11.9 fL Normal 9.5-13.5 [facility] Comment on above: Performed By: #### C BC ####[facility] Yocusgfvbc[address] [place], [place] [address]Dr. Sofiya Lozano PLT 166 103/ul Normal 150-450 [facility] Comment on above: Performed By: #### C BC ####[facility] [address] [place], [place] [address]Dr. Sofiya Lozano RBC 4.34 106/ul Normal 4.20-5.40 [facility] Comment on above: Performed By: #### C BC ####[facility] A[address] [place] [address]Dr. Sofiya Lozano WBC 5.2 103/ul Normal 4.0-11.0 [facility] Comment on above: Performed By: #### C BC ####[facility] [address]mezffx36[address] [place] [address]Dr. Sofiya Lozano FREE THYROXINE INDEX T7on FTI 2.50 Normal 1.30-4.50 [facility] Comment on above: Performed By: #### C MP, TSH, LIPID, T7 ####[facility] [address]eg[address]wlb[address] [place] [address]Dr. Sofiya Lozano T3U 32.0 % Normal 30.0-39.0 [facility] Comment on above: Performed By: #### C MP, TSH, LIPID, T7 ####[facility] Esdpxtvwru[address] [place] [address]DrSandi Lozano T4 [Mass/Vol] 7.80 ug/dL Normal 4.80-13.90 [facility] Comment on above: Performed By: #### C MP, TSH, LIPID, T7 ####[facility] Xxoute[address]ht[address] [place] [address]Dr. Sofiya Lozano GLYCOHEMOGLOBIN A1Con 2022 ADA RECOMMENDATION SEE BELOW Normal [facility] Comment on above: Result Comment: ADA RECOMMENDED LIMIT 4.0 - 6.0 ADA THERAPEUTIC TARGET < 7.0 ACTION SUGGESTED > 7.0 Performed By: #### A 1C #### [facility] [address] [place] [address] [address] Sofiya Lozano Glucose [Mass/Vol] 117 mg/dL Normal [facility] Comment on above: Performed By: #### A 1C #### [facility] [address] [place] [address] [address] Sofiya Lozano HbA1c (Bld) [Mass fraction] 5.7 % Normal 4.5-6.2 [facility] Comment on above: Performed By: #### A 1C #### [facility] [address] [place], [place] [address] Dr. Sofiya Lozano LIPID PROFILEon 12-10-2022 CHOL-HDL RATIO NORM SEE BELOW Normal [facility] Comment on above: Result Comment: 3.3 - 4.4 LOW RISK 4.4 - 7.1 AVERAGE RISK 7.1 - 11.0 MODERATE RISK >11.0 HIGH RISK Performed By: #### C MP, TSH, LIPID, T7 ####[facility] [address] [place], [place] [address]Sx. Sofiya Lozano Cholesterol [Mass/Vol] 155 mg/dL Normal <=200 [facility] Comment on above: Performed By: #### C MP, TSH, LIPID, T7 ####[facility] [address]xevszmhd1660 [place], [place] [address]Tg. Sofiya Lozano Cholesterol in HDL [Mass/Vol] 61 mg/dL Critically high 40-60 [facility] Comment on above: Performed By: #### C MP, TSH, LIPID, T7 ####[facility] [address]ysfu[address]spi[address] [place] [id number]. Sofiya Lozano Cholesterol in LDL [Mass/Vol] 75.6 mg/dL Normal [facility] Comment on above: Performed By: #### C MP, TSH, LIPID, T7 ####[facility] Lazxtqppgx7506 [place], [place] [address]Jg. Sofiya Lozano Cholesterol.total/Cho lesterol in HDL [Mass ratio] 2.5 {ratio} Normal [facility] Comment on above: Performed By: #### C MP, TSH, LIPID, T7 ####[facility] [address]zarcgotk8[address] [place] [id number]. Sofiya Lozano HDL NORMAL > or = 60 mg/dl - LO W CARDIOVASCULAR RISK <40 mg/dl - HIGH CARDIOVASCULAR RISK Normal [facility] Comment on above: Performed By: #### C MP, TSH, LIPID, T7 ####[facility] Qxmdbysggh[address] [place] [id number]. Sofiya Lozano LDL CALC NORMAL SEE BELOW Normal [facility] Comment on above: Result Comment: <100 mg/dl OPTIMAL 100 - 129 mg/dl NEAR OR ABOVE OPTIMAL 130 - 159 mg/dl BORDERLINE HIGH 160 - 189 mg/dl HIGH >190 mg/dl VERY HIGH Performed By: #### C MP, TSH, LIPID, T7 ####[facility] [address]xp[address] [place] [id number]. Sofiya Lozano Triglyceride [Mass/Vol] 92 mg/dL Normal <=150 [facility] Comment on above: Performed By: #### C MP, TSH, LIPID, T7 ####[facility] Zgejkrqbgi6725 [place] [id number]. Sofiya Lozano VLDL CALC 18.4 mg/dL Normal [facility] Comment on above: Performed By: #### C MP, TSH, LIPID, T7 ####[facility] [address]zuvouqa4[address] [place] [address]Dr. Sofiya Lozano PROF 14(COMP METB)on 023 Albumin [Mass/Vol] 3.4 g/dL Normal 3.4-5.0 [facility] Comment on above: Performed By: #### C MP, TSH, LIPID, T7 ####[facility] [address]wsyai[address] [place] [id number]. Sofiya Lozano Albumin/Globulin [Mass ratio] 1.0 {ratio} Normal [facility] Comment on above: Performed By: #### C MP, TSH, LIPID, T7 ####[facility] [address]qua[address] [place] [address]Dr. Sofiya Lozano ALP [Catalytic activity/Vol] 85 U/L Normal 46-116 [facility] Comment on above: Performed By: #### C MP, TSH, LIPID, T7 ####[facility] Ch[address]zvaowwr4705 [place] [id number]. Sofiya Lozano ALT [Catalytic activity/Vol] 21 U/L Normal 14-59 [facility] Comment on above: Performed By: #### C MP, TSH, LIPID, T7 ####[facility] Mpsygquxho8601 [place] [address]Dr. Sofiya Lozano Anion gap [Moles/Vol] 9.0 mmol/L Normal [facility] Comment on above: Performed By: #### C MP, TSH, LIPID, T7 ####[facility] Wptdbrmnyo[address] [place] [address]Dr. Sofiya Lozano AST [Catalytic activity/Vol] 18 U/L Normal 15-37 [facility] Comment on above: Performed By: #### C MP, TSH, LIPID, T7 ####[facility] S[address]mytswpf[address] [place] [address]Dr. Sofiya Lozano Bilirubin [Mass/Vol] 0.4 mg/dL Normal 0.2-1.0 [facility] Comment on above: Performed By: #### C MP, TSH, LIPID, T7 ####[facility] [address] [place], [place] [address]Dr. Sofiya Lozano Calcium [Mass/Vol] 9.0 mg/dL Normal 8.5-10.1 [facility] Comment on above: Performed By: #### C MP, TSH, LIPID, T7 ####[facility] [address]ounhrs[address] [place], [place] [address]Dr. Sofiya Lozano Chloride [Moles/Vol] 109 mmol/L Critically high 98-107 [facility] Comment on above: Performed By: #### C MP, TSH, LIPID, T7 ####[facility] [address]ec[address] [place], [place] [address]Dr. Sofiya Lozano CO2 [Moles/Vol] 31.0 mmol/L Normal 21.0-32.0 [facility] Comment on above: Performed By: #### C MP, TSH, LIPID, T7 ####[facility] [address]udof[address]km[address] [place] [address]Dr. Sofiya Lozano Creatinine [Mass/Vol] 1.10 mg/dL Critically high 0.55-1.02 [facility] Comment on above: Performed By: #### C MP, TSH, LIPID, T7 ####[facility] Yqsglksttz[address] [place] [address]Dr. Sofiya Lozano EGFR-AF SAO TOMEAN 57 mL/min/1.73m2 Critically low >=60 [facility] Comment on above: Performed By: #### C MP, TSH, LIPID, T7 ####[facility] Tkbneeftig[address] [place] [id number]. Sofiya Lozano EGFR-NON AF SAO TOMEAN 47 mL/min/1.73m2 Critically low >=60 [facility] Comment on above: Performed By: #### C MP, TSH, LIPID, T7 ####[facility] [address] [place] [address]Dr. Sofiya Lozano Globulin (S) [Mass/Vol] 3.4 g/dL Normal [facility] Comment on above: Performed By: #### C MP, TSH, LIPID, T7 ####[facility] Monfuscnve[address] [place] [address]Dr. Sofiya Lozano Glucose [Mass/Vol] 109 mg/dL Critically high 74-106 [facility] Comment on above: Performed By: #### C MP, TSH, LIPID, T7 ####[facility] [address]fsduxtvr[address] [place] [address]Dr. Sofiya Lozano Potassium [Moles/Vol] 4.0 mmol/L Normal 3.5-5.1 [facility] Comment on above: Performed By: #### C MP, TSH, LIPID, T7 ####[facility] Acaldtziwt[address] [place] [address]Dr. Sofiya Lozano Protein [Mass/Vol] 6.8 g/dL Normal 6.4-8.2 [facility] Comment on above: Performed By: #### C MP, TSH, LIPID, T7 ####[facility] [address]pacw[address] [place] [address]Dr. Sofiya Lozano Sodium [Moles/Vol] 145 mmol/L Normal 136-145 [facility] Comment on above: Performed By: #### C MP, TSH, LIPID, T7 ####[facility] Zxctivjqth[address] [place] [address]Dr. Sofiya Lozano Urea nitrogen [Mass/Vol] 21.0 mg/dL Critically high 7.0-18.0 [facility] Comment on above: Performed By: #### C MP, TSH, LIPID, T7 ####[facility] [address] [place], [place] [address]Dr. Sofiya Lozano Urea nitrogen/Creatinine [Mass ratio] 19.1 mg/mg Normal [facility] Comment on above: Performed By: #### C MP, TSH, LIPID, T7 ####[facility] [address]fr[address] [place], [place] [address]TnDr. Sofiya Lozano TSHon 12-10-2022 TSH 3.603 uIU/mL Normal 0.358-3.740 [facility] Comment on above: Performed By: #### C MP, TSH, LIPID, T7 ####[facility] I[address]qmmtp[address] [place], [place] [address]YwSandi Lozano CBC AUTO DIFFon 08-09-2022 BASO # 0.0 103/ul Normal 0.0-0.1 [facility] Comment on above: Performed By: #### C BC #### [facility] [address] [place] [address] [address] Sofiya Lozano Basophils/100 WBC (Bld) 0.2 % Normal 0.2-2.0 [facility] Comment on above: Performed By: #### C BC #### [facility] [address] [place] [address] [address] Sofiya Lozano EO # 0.0 103/ul Normal 0.0-0.7 [facility] Comment on above: Performed By: #### C BC #### [facility] [address] [place] [address] [address] Sofiya Lozano Eosinophils/100 WBC (Bld) 0.8 % Critically low 0.9-7.0 [facility] Comment on above: Performed By: #### C BC #### [facility] [address] [place] [address] [address] Sofiya Lozano Erythrocyte distribution width (RBC) [Ratio] 13.7 % Normal 11.0-15.0 [facility] Comment on above: Performed By: #### C BC #### [facility] [address] [place] [address] [address] Sofiya Lozano Hematocrit (Bld) [Volume fraction] 39.0 % Normal 36.0-48.0 [facility] Comment on above: Performed By: #### C BC #### [facility] [address] [place] [address] Dr. Sofiya Lozano Hemoglobin (Bld) [Mass/Vol] 13.0 g/dL Normal 12.0-16.0 [facility] Comment on above: Performed By: #### C BC #### [facility] [address] [place] [address] Dr. Sofiya Lozano IG # 0.01 10e3/ul Normal 0.00-0.03 [facility] Comment on above: Performed By: #### C BC #### [facility] [address] [place] [address] Dr. Sofiya Lozano IG % 0.2 % Normal 0.0-0.5 [facility] Comment on above: Performed By: #### C BC #### [facility] [address] [place] [address] Dr. Sofiya Lozano LYMPH # 0.9 103/ul Critically low 1.2-3.8 [facility] Comment on above: Performed By: #### C BC #### [facility] [address] [place] [address] Dr. Sofiya Lozano Lymphocytes/100 WBC (Bld) 19.1 % Critically low 20.5-60.0 [facility] Comment on above: Performed By: #### C BC #### [facility] [address] [place] [address] Dr. Sofiya Lozano MANUAL DIFF REQ NO Normal [facility] Comment on above: Performed By: #### C BC #### [facility] [address] [place] [address] Dr. Sofiya Lozano MCH (RBC) [Entitic mass] 30.6 pg Normal 26.7-34.0 [facility] Comment on above: Performed By: #### C BC #### [facility] [address] [place] [address] Dr. Sofiya Lozano MCHC (RBC) [Mass/Vol] 33.3 g/dL Normal 29.9-35.2 [facility] Comment on above: Performed By: #### C BC #### [facility] [address] [place] [address] [address] Sofiya Lozano MCV (RBC) [Entitic vol] 91.8 fL Normal 81.0-99.0 [facility] Comment on above: Performed By: #### C BC #### [facility] [address] [place] [address] [address] Sofiya Lozano MONO # 0.5 103/ul Normal 0.3-0.8 [facility] Comment on above: Performed By: #### C BC #### [facility] [address] [place] [address] Dr. Sofiya Lozano Monocytes/100 WBC (Bld) 10.5 % Normal 1.7-12.0 [facility] Comment on above: Performed By: #### C BC #### [facility] [address] [place] [address] Dr. Sofiya Lozano NEUT # 3.4 103/ul Normal 1.4-6.5 [facility] Comment on above: Performed By: #### C BC #### [facility] [address] [place] [address] Dr. Sofiya Lozano Neutrophils/100 WBC (Bld) 69.2 % Normal 43.0-75.0 [facility] Comment on above: Performed By: #### C BC #### [facility] [address] [place] [address] Dr. Sofiya Lozano Platelet mean volume (Bld) [Entitic vol] 11.7 fL Normal 9.5-13.5 [facility] Comment on above: Performed By: #### C BC #### [facility] [address] [place] [address] Dr. Sofiya Lozano PLT 158 103/ul Normal 150-450 [facility] Comment on above: Performed By: #### C BC #### [facility] [address] [place] [address] Dr. Sofiya Lozano RBC 4.25 106/ul Normal 4.20-5.40 [facility] Comment on above: Performed By: #### C BC #### [facility] [address] [place] [address] Dr. Sofiya Lozano WBC 4.9 103/ul Normal 4.0-11.0 [facility] Comment on above: Performed By: #### C BC #### [facility] [address] [place] [address] [address] Sofiya Lozano PROF CHEM 8 (BAS METB)on Anion gap [Moles/Vol] 10.1 mmol/L Normal [facility] Comment on above: Performed By: #### B MP #### [facility] [address] [place] [address] [address] Sofiya Lozano Calcium [Mass/Vol] 8.5 mg/dL Normal 8.5-10.1 [facility] Comment on above: Performed By: #### B MP #### [facility] [address] [place] [address] [address] Sofiya Lozano Chloride [Moles/Vol] 102 mmol/L Normal 98-107 [facility] Comment on above: Performed By: #### B MP #### [facility] [address] [place] [address] [address] Sofiya Lozano CO2 [Moles/Vol] 28.1 mmol/L Normal 21.0-32.0 [facility] Comment on above: Performed By: #### B MP #### [facility] [address] [place] [address] Dr. Sofiya Lozano Creatinine [Mass/Vol] 0.97 mg/dL Normal 0.55-1.02 [facility] Comment on above: Performed By: #### B MP #### [facility] [address] [place] [address] Dr. Sofiya Lozano EGFR-AF SAO TOMEAN >60 Normal >=60 [facility] Comment on above: Performed By: #### B MP #### [facility] [address] [place] [address] [address] Sofiya Lozano EGFR-NON AF SAO TOMEAN 55 mL/min/1.73m2 Critically low >=60 [facility] Comment on above: Performed By: #### B MP #### [facility] [address] [place] [address] [address] Sofiya Lozano Glucose [Mass/Vol] 128 mg/dL Critically high 74-106 [facility] Comment on above: Performed By: #### B MP #### [facility] [address] [place] [address] [address] Sofiya Lozano Potassium [Moles/Vol] 4.2 mmol/L Normal 3.5-5.1 [facility] Comment on above: Performed By: #### B MP #### [facility] [address] [place] [address] [address] Sofiya Lozano Sodium [Moles/Vol] 136 mmol/L Normal 136-145 [facility] Comment on above: Performed By: #### B MP #### [facility] [address] [place] [address] Dr. Sofiya Lozano Urea nitrogen [Mass/Vol] 20.0 mg/dL Critically high 7.0-18.0 [facility] Comment on above: Performed By: #### B MP #### [facility] [address] [place] [address] Dr. Sofiya Lozano Urea nitrogen/Creatinine [Mass ratio] 20.6 mg/mg Normal [facility] Comment on above: Performed By: #### B MP #### [facility] [address] [place] [address] Dr. Sofiya Lozano PROTIMEon 08-09-2022 INR Coag (PPP) [Relative time] 2.00 {INR} Normal [facility] Comment on above: Performed By: #### P TT, PT #### [facility] [address] [place] [address] Dr. Sofiya Lozano INR GUIDELINES SEE BELOW Normal [facility] Comment on above: Result Comment: FIGUEROA RED INR: 2.0 - 3.0 CONDITIONS NOT LISTED BELOW 2.5 - 3.5 FOR PROSTHETIC HEART VALVE REPLACEMENT 2.5 - 3.5 RECURRENT THROMBOSIS Performed By: #### P TT, PT #### [facility] [address] [place] [address] Dr. Sofiya Lozano PT Coag (PPP) [Time] 20.6 s Critically high 9.0-11.6 [facility] Comment on above: Performed By: #### P TT, PT #### [facility] [address] [place] [address] [address] Sofiya Lozano PTTon 08-09-2022 aPTT Coag (Bld) [Time] 38.5 s Critically high 22.3-36.2 [facility] Comment on above: Performed By: #### P TT, PT ####[facility] [address] [place] [address]Dr. Sofiya Lozano US VENOUS DOPPLER L Isabel [...] left arm *Exam performed in accordance with AIUM practice guidelines- Peripheral venous ultrasound, October 28, 2009. Electronically authenticated by: CONCEPCIÓN WOMACK Date: 2022-08-09 15:59 Normal [facility] PROTIMEon 05-13-2022 INR Coag (PPP) [Relative time] 2.76 {INR} Normal [facility] Comment on above: Performed By: #### P T #### [facility] [address] [place] [address] Dr. Sofiya Lozano INR GUIDELINES SEE BELOW Normal [facility] Comment on above: Result Comment: FIGUEROA RED INR: 2.0 - 3.0 CONDITIONS NOT LISTED BELOW 2.5 - 3.5 FOR PROSTHETIC HEART VALVE REPLACEMENT 2.5 - 3.5 RECURRENT THROMBOSIS Performed By: #### P T #### [facility] [address] [place] [address] [address] Sofiya Lozano PT Coag (PPP) [Time] 27.9 s Critically high 9.0-11.6 [facility] Comment on above: Performed By: #### P T #### [facility] [address] [place] [address] [address] Sofiya Lozano PROTIMEon 04-15-2022 INR Coag (PPP) [Relative time] 2.18 {INR} Normal [facility] Comment on above: Performed By: #### P T #### [facility] [address] [place] [address] [address] Sofiya Lozano INR GUIDELINES SEE BELOW Normal [facility] Comment on above: Result Comment: FIGUEROA RED INR: 2.0 - 3.0 CONDITIONS NOT LISTED BELOW 2.5 - 3.5 FOR PROSTHETIC HEART VALVE REPLACEMENT 2.5 - 3.5 RECURRENT THROMBOSIS Performed By: #### P T #### [facility] [address] [place] [address] [address] Sofiya Lozano PT Coag (PPP) [Time] 22.4 s Critically high 9.0-11.6 [facility] Comment on above: Performed By: #### P T #### [facility] [address] [place] [address] Dr. Sofiya Lozano VIT D 25-OH LABCORPon 2021 Vitamin D, 25-Hydroxy 23.7 ng/mL Critically low 30.0-100.0 [facility] Comment on above: Result Comment: Jailyn min D deficiency has been defined by the [place] of [employer] and an Endocrine Society practice guideline as a level of serum 25-OH vitamin D less than 20 ng/mL (1,2). The Endocrine Society went on to further define vitamin D insufficiency as a level between 21 and 29 ng/mL (2). 1. IOM ([place] of [employer]). 2010. Dietary reference intakes for calcium and D. [place]: The National Academies Press. 2. Negin MF, [place], Summer FERNANDEZ, et al. Evaluation, treatment, and prevention of vitamin D deficiency: an Endocrine Society clinical practice guideline. JCEM. 2010; 96(7):1911-30. Performed By: #### V ITADLC #### [facility] [address] [place] [address] Dr. Sofiya Lozano VITAMIN B12on 03-01-2022 Cobalamin (Vitamin B12) [Mass/Vol] 258.0 pg/mL Normal 193.0-986.0 [facility] Comment on above: Performed By: #### V ITB12 #### [facility] [address] [place], [place] [address] Dr. Sofiya Lozano PROTIMEon 12-24-2021 INR Coag (PPP) [Relative time] 1.79 {INR} Normal [facility] Comment on above: Performed By: #### P T #### [facility] [address] [place] [address] [address] Sofiya Lozano INR GUIDELINES SEE BELOW Normal [facility] Comment on above: Result Comment: FIGUEROA RED INR: 2.0 - 3.0 CONDITIONS NOT LISTED BELOW 2.5 - 3.5 FOR PROSTHETIC HEART VALVE REPLACEMENT 2.5 - 3.5 RECURRENT THROMBOSIS Performed By: #### P T #### [facility] [address] [place] [id number] Dr. Sofiya Lozano PT Coag (PPP) [Time] 18.6 s Critically high 9.0-11.6 [facility] Comment on above: Performed By: #### P T #### [facility] [address] [place] [address] Dr. Sofiya Lozano Encounters Encounter Date Encounter Type Care Provider Facility Start: 05-17-2024 End: 05-17-2024 ambulatory [facility] Start: 03-15-2024 End: 03-15-2024 ambulatory [facility] Start: 02-17-2024 End: 02-23-2024 [facility] Start: 02-09-2024 End: 02-09-2024 ambulatory [facility] Start: 02-02-2024 End: 02-02-2024 ambulatory [facility] Start: 02-02-2024 End: 02-02-2024 Subsequent hospital visit by physician Fatmata Bellamy APRN - MAR[place] Work Phone: [facility] Start: 01-26-2024 End: 01-26-2024 ambulatory TAE TIERA LAWRENCE [facility] Start: 01-23-2024 End: 01-25-2024 ambulatory GER GUZMAN [facility] Start: 01-23-2024 End: 01-25-2024 Subsequent hospital visit by physician [facility] Cat Scan Room [facility] CT Scan Comment on above: SDH (subdural hemato ma) (HCC) Start: 01-19-2024 End: 01-19-2024 ambulatory T[facility]ed [facility] Start: 01-15-2024 End: 01-15-2024 ambulatory [facility] Start: 01-15-2024 End: 01-15-2024 Subsequent hospital visit by physician Fatmata De Dios CNP Work Phone: [facility] Start: 01-05-2024 End: 01-13-2024 Evaluation and management of inpatient FATMATA Savita JOSESITO [facility] Start: 07-03-2023 End: 07-03-2023 ambulatory MOISES Andrés [facility]injal [facility] Start: 12-14-2022 Encounter for genera l adult medical examination without abnormal findings DR MOISES SANCHEZ . [facility] Start: 12-10-2022 End: 12-11-[address] MOISES SANCHEZ . Facility:[facility]1 Start: 12-10-2022 End: 12-11-2022 Encounter for general [...] End: 01-01-[address] MOISES SANCHEZ . Facility:[facility]1 Procedures Date Procedure Procedure Detail Performing Clinician Start: 02-02-2024 Comprehensive metabo lic panel Tae Lawrence MD Work Phone: Start: 01-15-2024 Comprehensive metabo lic panel Tae Lawrence MD Work Phone: Plan of Treatment Date Care Activity Detail Author Start: 03-04-2024 Influenza vaccination Flu vaccine (# 1) ANTOINE STEARNS [facility] Start: 02-19-2024 End: 02-19-2024 Patient encounter procedure 02/19/2024 10:30 AM EDT Office Visit [facility] [id number] [place] [address] [id number] Celina Diaz, DO [address] [place] [address] Follow up with Sylvia or Adelina in two weeks with CTH prior to appointment for SDH [facility] Comment on above: Follow up with Sylvia or Adelina in two weeks with CTH prior to appointment for SDH Start: 02-09-2024 End: 02-09-2024 Patient encounter procedure 02/09/2024 11:30 AM EDT Office Visit [facility] [address] [place] [id number] Austin Zee, DO [address] [facility] [address] [place], [place] [phone] LEFT PROX HUMERUS/ RIGHT TIB COMING FORM [facility]. R/S w/Deisy due to Covid [phone] [facility] Comment on above: LEFT PROX HUMERUS/ R IGHT TIB COMING FORM [facility]. R/S w/Deisy due to Covid [phone] Start: 02-02-2024 End: 02-02-2024 Patient encounter procedure 02/02/2024 10:15 AM EDT Office Visit [facility] [address] [place] [phone] Austin Zee, DO [address] [place], [place] [address] LEFT PROX HUMERUS/ RIGHT TIB COMING FORM [facility] Comment on above: LEFT PROX HUMERUS/ R IGHT TIB COMING FORM [facility] Start: 01-21-2024 End: 01-21-2024 Patient encounter procedure 01/21/2024 3:15 PM EDT [facility] [address] [place] [phone] Austin Zee, [address] [facility] [address] [place], [place] [phone] R fem IMN, closed tx left proximal humerus [facility] Comment on above: R fem IMN, closed tx left proximal humerus Start: 01-21-2024 End: 01-21-2024 Patient encounter procedure 01/21/2024 11:30 AM EDT Office Visit [facility] [address] [facility] [address] - [address] Floor, [address] [place] [address] Sylvia Malone W, [employer] - WHITE [employer]AR SYRUP OPERATOR [address] [facility] [address] [place], [place] [id number] Follow up with Sylvia or Adelina in two weeks with CTH prior to appointment for SDH [facility] Comment on above: Follow up with Sylvia or Adelina in two weeks with CTH prior to appointment for SDH Start: 08-04-2023 Annual Wellness Visi t (Medicare Advantage) Annual Wellness Visit (Medicare Advantage) [facility] Start: 04-04-2023 COVID-19 Vaccine ( season) COVID-19 Vaccine ( season) [facility] Start: 1999 Respiratory Syncytia l Virus (RSV) or age 60 yrs+ (1 - 1-dose 60+ series) Respiratory Syncytial Virus (RSV) or age 60 yrs+ (1 - 1-dose 60+ series) [facility] Start: 1994 Screening for osteoporosis DEXA (modify frequency per FRAX score) [facility] Start: 1958 DTaP/Tdap/Td vaccine (1 - Tdap) DTaP/Tdap/Td vaccine (1 - Tdap) [facility] Start: 1951 Depression Screen Depression Screen [facility] [place] [employer] End: 01-23-2024 CT Head WO [facility] Work Phone: Comment on above: 1 Occurrences starti ng 01/23/2024 until 01/23/2024 Payers Date Payer Category Payer Self-pay [id number] 1960 Unknown [id number] 1939 Unknown [id number] 2.16.84 0.1.731124.3.579.2.593 1939 Unknown [id number] 2.16.84 0.1.745212.3.579.2.593 1939 Unknown [id number] 2.16.84 0.1.379394.3.579.2.593 1939 Unknown [id number] 2.16.84 0.1.747380.3.579.2.593 1939 Unknown [id number] 2.16.84 0.1.937185.3.579.2.593 1939 Unknown [id number] 2.16.84 0.1.992802.3.579.2.593 1939 Unknown [id number] 2.16.84 0.1.813700.3.579.2.593 1939 Unknown [id number] 2.16.8 40.1.162961.3.579.2.173 1939 Unknown [id number] 2.16.8 40.1.491623.3.579.2.173 1939 Unknown [id number] 2.16.8 40.1.348520.3.579.2.173 1939 Unknown [id number] 2.16.8 40.1.047586.3.579.2.173 1939 Unknown [id number] 2.16.8 40.1.560569.3.579.2.173 1939 Unknown [id number] 2.16. 840.1.032908.3.579.2.175 1939 Unknown [id number] 2.16. 840.1.322878.3.579.2.175 1939 Unknown [id number] 2.16. 840.1.957780.3.579.2.175 1939 Unknown [id number] 2.16. 840.1.198921.3.579.2.175 1939 Unknown [id number] 2.16. 840.1.224420.3.579.2.175 Social History Date Type Detail Facility Start: 01-10-2024 Tobacco smoking stat [facility] Never smoked tobacco [facility] Start: 01-10-2024 Tobacco use and exposure Smokeless tobacco non-user [facility] Start: 01-05-2024 End: 01-10-2024 History of Social function [facility] Start: 01-05-2024 End: 01-10-2024 Tobacco use panel [facility] Physical abuse Denies [facility] [employer] [facility] Start: 1940 Sex Assigned At Not on file B [facility] Medical Equipment Procedure Code Equipment Code Equipment Origin al Text Equipment Identifier Dates Nail Im Fem 12x4 20 Mm Rt Greater Trochanteric Strl T2 Alpha - [id number], [id number] FDA Start: 01-06-2024 Screw Bne L90mm Dia6.5mm Canc Fem Ti Lag Rory Saad Partially - [id number] [id number], [id number] FDA Start: 01-06-2024 Screw Bne L90mm Dia6.5mm Canc Fem Ti Lag Rory Saad Partially - [id number] [id number], [id number] FDA Start: 01-06-[address] 5x37 5mm - [id number] [id number], [id number] FDA Start: 01-06-2024 Screw Bne L50mm Dia5mm Saad For T2 Alpha Nailing Sys - [id number] [id number], [id number] FDA Start: 01-06-2024 Screw Bne Lck 5x 45 Mm Adv Strl Alpha - [id number] Start: 01-06-2024 Clinical Note 03-01-2022 Note [...] by: BERTO ALEJO Date: 2022-03-01 17:38 [facility] Evaluation note Note Date & Type Note Facility Evaluation note Diagnosis SDH (subdural hematoma) (HCC) Subdural hemorrhage documented in this encounter [facility] Summary Purpose Family History No Family History [...] Referral Specialty Diagnoses / Procedures Referred By Contac t Referred To Contact Radiology Diagnoses SDH (subdural hematoma) (HCC) Procedures CT HEAD WO CONTRAST Ger Guzman APRN - WHITE [employer] SYRUP OPERATOR [address] [address] Referral ID Status Reason Start Date Expiration Date Visits Re quested Visits Authorized [id number] Closed 01/20/2024 04/18/2024 1 1 Additional Source Comments INFORMATION SOURCE (unrecogn ized section and content) DATE CREATED AUTHOR 12/15/2022 [facility] DATE CREATED AUTHOR AUTHOR'S ORGANIZ ATION [facility]03/2024 [facility] DATE CREATED AUTHOR AUTHOR'S ORGANIZ ATION 06/04/2024 [facility] Care Teams (unrecognized sec tion and content) Electrical Design Engineer Relationship Specialty Start Date End Date Fatmata Bellamy APRN - CNP [facility] [place] [address] PCP - General 01/06/24 Electrical Design Engineer Relationship Specialty Start Date End Date Fatmata Bellamy APRN - CNP [address] [place] [id number] PCP - General 01/06/24 Electrical Design Engineer Relationship Specialty Start Date End Date Fatmata Bellamy APRN - CNP [facility] [place] [address] PCP - General 01/06/24 Reason for Visit (unrecogniz ed section and content) Specialty Diagnoses / Procedures Referred By Contac t Referred To Contact Radiology Diagnoses SDH (subdural hematoma) (HCC) Procedures CT HEAD WO CONTRAST Ger Guzman APRN - WH[employer] SYRUP OPERATOR [address] [address] Referral ID Status Reason Start Date Expiration Date Visits Re quested Visits Authorized [id number] Closed 01/20/2024 04/18/2024 1 1 FOR RECORDS [...] BE BASED ON THE PRIMARY CLINICAL RECORDS. [facility]. provides no warranty or guarantee of the accuracy or completeness of information in this document.
== END 2024-11-08 10:56 | disposition home or self-care (01) ==
LOC: RAD 10:58
PROVIDERS: PCP Nurse Practitioner Family; Visit Provider Nurse Practitioner Family
DX: M25.551 Pain in right hip (principal); S72.301D Unspecified fracture of shaft of right femur, subsequent encounter for closed fracture with routine healing; Z98.890 Other specified postprocedural states
CPT/HCPCS: 73502

== ENCOUNTER 2024-11-10 10:02 | Outpatient (RCR) | payer MEDICARE, SELFPAY | END 2024-11-11 07:08 | disposition home or self-care (01) | LOC: PT 10:02 | PROVIDERS: PCP Nurse Practitioner Family; Visit Provider Nurse Practitioner Family | DX: M25.551 Pain in right hip (principal) | CPT/HCPCS: 97163 ==

== ENCOUNTER 2024-12-06 09:29 | Outpatient (OUT) | payer MEDICARE, SELFPAY | END 2024-12-06 09:30 | disposition home or self-care (01) | LOC: RAD 09:29 | PROVIDERS: PCP Nurse Practitioner Family; Visit Provider Nurse Practitioner Family | DX: M81.0 Age-related osteoporosis without current pathological fracture (principal); M85.80 Other specified disorders of bone density and structure, unspecified site | CPT/HCPCS: 77080 ==

== ENCOUNTER 2024-12-13 23:27 | Emergency (ER) | payer MEDICARE, SELFPAY ==
[2024-12-13 23:34] VITALS: BP 150/85; PULSE 70; TEMP 36.9; O2SAT 97; BMI 24.3
--- OUTSIDE RECORDS SUMMARY | 2024-12-13 23:37 | XMS_ITS | CCD ---
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 Role Phone DANIEL ., DR DE [...] Unavailable PAY ., DR BAEZ Attending Unavailable REYNOLDS, DR CONCEPCIÓN Wang Consulting Unavailable PAY ., [...] Consulting Unavailable JOSESITO, FATMATA Consulting Unavailable Josesito NETWORK ASSOCIATE - REPAIRER SHOE STICKS, Fatmata S Primary Care Provide r TAE LAWRENCE Referring Unavailable JOSESITO, FATMATA S Primary Care Unavailable TAE LAWRENCE Referring Unavailable JOSESITO, FATMATA S Primary Care Unavailable TAE LAWRENCE Referring Unavailable JOSESITO, FATMTAA S Primary Care Unavailable GER GUZMAN Referring Unavailable JOSESITO, FATMATA S Primary Care Unavailable MOISES SANCHEZ Referring Unavailable TAE LAWRENCE Referring Unavailable JOSESITO, FATMATA S Primary Care Unavailable AUSTIN ZEE Referring Unavailable JOSESITO, FATMATA S Primary Care Unavailable JOSESITO, FATMATA S Primary Care Unavailable BOOTHBYAUSTIN C Referring Unavailable TILLE, STEPHANY A Referring Unavailable JOSESITO, FATMATA S Primary Care Unavailable MARY GILMORE Referring Unavailable JOSESITO, FATMATA S Primary Care Unavailable AUSTIN ZEE Attending Unavailable JOSESITO, FATMATA S Primary Care Unavailable ADELINE BURLESON Consulting Unavailable AUSTIN ZEE Admitting Unavailable EDITH GOMEZ Consulting Unavailable JOSESITO, FATMATA S Primary Care Unavailable BECKY FOLEY Admitting Unavailable BECKY FOLEY Consulting Unavailable BECKY FOLEY Attending Unavailable GENNY NICOLE Consulting Unavailable AUSTIN ZEE Consulting Unavailable CELINA DIAZ Consulting Unavailable ELENO RODRIGUEZ Consulting Unavaillisbeth e AUSTIN ZEE Referring Unavailable JOSESITO, FATMATA S Primary Care Unavailable Allergies Allergy Classification Reported Allergen(s) Allergy Type Date of Onset Reaction(s) Facility (2 sources) Sulfonamides (Antibiotic) Drug allergy (disorder) 3 [facility] (3 sources) Penicillins Propensity to adverse reactions to drug 4 [facility] (3 sources) Sulfonamides (Antibiotic) Propensity to adverse reactions to drug 4 [facility] Medications Current Medications Medication Drug [...] 15 tablet 0 01/14/2024 02/13/2024 Active sennosides, detention 1.76 mg/ml oral solution (3 sources) Start: [...] unspecified; Translations: [INSOMNIA UNSPECIFIED] Onset: 3 Episodic Unclassified (2 sources) Traumatic subdural hemorrhage with loss of consciousness status unknown, initial encounter; Translations: [Traumatic subdural hemorrhage with loss of consciousness status unknown, initial encounter] Onset: 4 Unclassified (1 source) Low back pain, unspecified; Translations: [Low back pain, unspecified] Onset: 5 Past or Other Problems Problem Classification Problem [...] Onset: 03-01-2022 Episodic Other aftercare (1 source) 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; Translations: [SNF CURRNT USE ANTICOAGULANTS] Onset: 08-12-2022 Episodic Other aftercare (1 source) group home (current) use of aspirin; Translations: [SNF CURRENT USE OF ASPIRIN] Onset: 08-12-2022 Episodic Other aftercare (2 sources) 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; Translations: [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] Onset: 07-03-2023 Episodic Other [...] BOTH CERVIX AND UTERUS] Onset: 08-12-2022 Episodic Residual codes; unclassified (1 source) Pain, unspecified; Translations: [Pain, unspecified] Onset: 02-09-2024 Episodic Septicemia (except in labor) (4 sources) Infectious agent in bloodstream; Translations: [Sepsis, unspecified organism] Onset: 01-06-2024 01-06-2024 Episodic Urinary tract infections (1 source) Acute cystitis without hematuria; Translations: [Acute cystitis without hematuria] Onset: 01-05-2024 Episodic Results Test Name Value Interpretation Reference Range Facility XR FEMUR RIGHT (MIN 2 VIEWS) on 11-22-2024 XR FEMUR RIGHT (MIN 2 VIEWS) History: [...] Interpreted by: Mary Gilmore PA Preliminary result Normal [facility] XR SHOULDER LEFT (MIN 2 VIEW S)on 11-22-2024 XR SHOULDER LEFT (MIN 2 VIEWS) History: 83 y.o. year [...] Interpreted by: Mary Gilmore PA Preliminary result Normal [facility] XR FEMUR RIGHT (MIN 2 VIEWS) on [...] Austin Zee DO 06/02/24 Final result Normal [facility] XR SHOULDER LEFT (MIN 2 VIEW S)on [...] Austin Zee DO Signed by: Austin Zee, 06/02/24 Final result Normal [facility] XR FEMUR RIGHT (MIN 2 VIEWS) on [...] Signed by: Austin Zee, 03/17/24 Final result Normal [facility] XR SHOULDER LEFT (MIN 2 VIEW S)on [...] Signed by: Austin Zee, 03/17/24 Final result Normal [facility] XR FEMUR RIGHT (MIN 2 VIEWS) on [...] by: Austin Zee, 02/25/24 Final result Normal [facility] XR SHOULDER LEFT (MIN 2 VIEW S)on [...] by: Austin Zee, 02/25/24 Final result Normal [facility] Basic Metab w/rfx MGon 02-22 Anion gap [Moles/Vol] 6 mmol/L Low 9-16 [facility] Comment on above: Performed By: #### B C #### [facility] [address] [place] [address] [employer]: Sarath Olivera MD Calcium [Mass/Vol] 8.6 mg/dL Normal 8.6-10.4 [facility] Comment on above: Performed By: #### B C #### [facility] [address] [place], [place] [phone] [employer]: Sarath Olivera MD Chloride [Moles/Vol] 108 mmol/L High 98-107 [facility] Comment on above: Performed By: #### B C #### [address] [address] [employer]: Sarath Olivera MD CO2 [Moles/Vol] 30 mmol/L Normal 20-31 [facility] Comment on above: Performed By: #### B C #### [address] [address] [employer]: Sarath Olivera MD Creatinine [Mass/Vol] 0.7 mg/dL Normal 0.50-0.90 [facility] Comment on above: Performed By: #### B C #### [address] [address] [employer]: Sarath Olivera MD GFR/1.73 sq M.predicted among non-blacks MDRD (S/P/Bld) [Vol rate/Area] 86 mL/min/{1.73_m2} Normal >60 [facility] Comment on above: Result Comment: These results [...] secretion. Performed By: #### B C #### [address] [address] [employer]: Sarath Olivera MD Glucose [Mass/Vol] 91 mg/dL Normal 74-99 [facility] Comment on above: Performed By: #### B C #### [address] [address] [employer]: Sarath Olivera MD Potassium [Moles/Vol] 3.9 mmol/L Normal 3.7-5.3 [facility] Comment on above: Performed By: #### B C #### [address] [address] [employer]: Sarath Olivera MD Sodium [Moles/Vol] 144 mmol/L Normal 136-145 [facility] Comment on above: Performed By: #### B C #### [address] [address] [employer]: Sarath Olivera MD Urea nitrogen [Mass/Vol] 20 mg/dL Normal 8-23 [facility] Comment on above: Performed By: #### B C #### [address] [address] [employer]: Sarath Olivera MD CBCon 02-23-2024 Erythrocyte distribution width (RBC) [Ratio] 17.4 % High 11.8-14.4 [facility] Comment on above: Performed By: #### B C #### [address] [address] [employer]: Sarath Olivera MD Hematocrit (Bld) [Volume fraction] 35.7 % Low 36.3-47.1 [facility] Comment on above: Performed By: #### B C #### [address] [address] [employer]: Sarath Olivera MD Hemoglobin (Bld) [Mass/Vol] 10.5 g/dL Low 11.9-15.1 [facility] Comment on above: Performed By: #### B C #### [address] [address] [employer]: Sarath Olivera MD MCH (RBC) [Entitic mass] 30.0 pg Normal 25.2-33.5 [facility] Comment on above: Performed By: #### B C #### [address] [address] [employer]: Sarath Olivera MD MCHC (RBC) [Mass/Vol] 29.4 g/dL Normal 28.4-34.8 [facility] Comment on above: Performed By: #### B C #### [address] [address] [employer]: Sarath Olivera MD MCV (RBC) [Entitic vol] 102.0 fL Normal 82.6-102.9 [facility] Comment on above: Performed By: #### B C #### [address] [address] [employer]: Sarath Olivera MD NRBC Automated 0.0 per 100 WBC Normal 0.0 [facility] Comment on above: Performed By: #### B C #### [address] [address] [employer]: Sarath Olivera MD Platelet mean volume (Bld) [Entitic vol] 11.8 fL Normal 8.1-13.5 [facility] Comment on above: Performed By: #### B C #### [address] [address] [employer]: Sarath Olivera MD Platelets (Bld) [#/Vol] 181 10*3/uL Normal 138-453 [facility] Comment on above: Performed By: #### B C #### [address] [address] [employer]: Sarath Olivera MD RBC (Bld) [#/Vol] 3.50 10*6/uL Low 3.95-5.11 [facility] Comment on above: Performed By: #### B C #### [address] [address] [employer]: Sarath Olivera MD WBC (Bld) [#/Vol] 5.8 10*3/uL Normal 3.5-11.3 [facility] Comment on above: Performed By: #### B C #### [address] [address] [employer]: Sarath Olivera MD PTon 02-23-2024 INR Coag (PPP) [Relative time] 1.6 {INR} Normal [facility] Comment on above: Result Comment: Therapeutic Range: Moderate Anticoagulant Intensity: INR = 2.0-3.0 High Anticoagulant Intensity: INR = 2.5-3.5 Performed By: #### B C #### [address] [address] [employer]: Sarath Olivear MD PT Coag (PPP) [Time] 18.8 s High 11.7-14.9 [facility] Comment on above: Performed By: #### B C #### [address] [address] [employer]: Sarath Olivera MD Basic Metab w/rfx MGon 02-21 Anion gap [Moles/Vol] 7 mmol/L Low 9-16 [facility] Comment on above: Performed By: #### B C #### [address] [address] [employer]: Sarath Olivera MD Calcium [Mass/Vol] 8.3 mg/dL Low 8.6-10.4 [facility] Comment on above: Performed By: #### B C #### [address] [address] [employer]: Sarath Olivera MD Chloride [Moles/Vol] 107 mmol/L Normal 98-107 [facility] Comment on above: Performed By: #### B C #### [address] [address] [employer]: Sarath Olivera MD CO2 [Moles/Vol] 28 mmol/L Normal 20-31 [facility] Comment on above: Performed By: #### B C #### [facility] [employer] [address] [place] [address] [employer]: Sarath Olivera MD Creatinine [Mass/Vol] 0.9 mg/dL Normal 0.50-0.90 [facility] Comment on above: Performed By: #### B C #### [facility] [employer] [address] [place] [address] [employer]: Sarath Olivera MD GFR/1.73 sq M.predicted among non-blacks MDRD (S/P/Bld) [Vol rate/Area] 67 mL/min/{1.73_m2} Normal >60 [facility] Comment on above: Result Comment: These results [...] secretion. Performed By: #### B C #### [facility] [employer] [address] [place] [address] [employer]: Sarath Olivera MD Glucose [Mass/Vol] 105 mg/dL High 74-99 [facility] Comment on above: Performed By: #### B C #### [facility] [employer] [address] [place] [address] [employer]: Sarath Olivera MD Potassium [Moles/Vol] 4.0 mmol/L Normal 3.7-5.3 [facility] Comment on above: Performed By: #### B C #### [facility] [employer] [address] [place] [address] [employer]: Sarath Olivera MD Sodium [Moles/Vol] 142 mmol/L Normal 136-145 [facility] Comment on above: Performed By: #### B C #### [address] [address] [employer]: Sarath Olivera MD Urea nitrogen [Mass/Vol] 24 mg/dL High 8- [facility] Comment on above: Performed By: #### B C #### [address] [address] [employer]: Sarath Olivera MD CBCon 02-22-2024 Erythrocyte distribution width (RBC) [Ratio] 17.2 % High 11.8-14.4 [facility] Comment on above: Performed By: #### B C #### [address] [address] [employer]: Sarath Olivera MD Hematocrit (Bld) [Volume fraction] 32.6 % Low 36.3-47.1 [facility] Comment on above: Performed By: #### B C #### [address] [address] [employer]: Sarath Olivera MD Hemoglobin (Bld) [Mass/Vol] 9.9 g/dL Low 11.9-15.1 [facility] Comment on above: Performed By: #### B C #### [address] [address] [employer]: Sarath Olivera MD MCH (RBC) [Entitic mass] 30.6 pg Normal 25.2-33.5 [facility] Comment on above: Performed By: #### B C #### [address] [address] [employer]: Sarath Olivera MD MCHC (RBC) [Mass/Vol] 30.4 g/dL Normal 28.4-34.8 [facility] Comment on above: Performed By: #### B C #### [address] [address] [employer]: Sarath Olivera MD MCV (RBC) [Entitic vol] 100.6 fL Normal 82.6-102.9 [facility] Comment on above: Performed By: #### B C #### [address] [address] [employer]: Sarath Olivera MD NRBC Automated 0.0 per 100 WBC Normal 0.0 [facility] Comment on above: Performed By: #### B C #### [address] [address] [employer]: Sarath Olivera MD Platelet mean volume (Bld) [Entitic vol] 12.0 fL Normal 8.1-13.5 [facility] Comment on above: Performed By: #### B C #### [address] [address] [employer]: Sarath Olivera MD Platelets (Bld) [#/Vol] 192 10*3/uL Normal 138-453 [facility] Comment on above: Performed By: #### B C #### [address] [address] [employer]: Sarath Olivera MD RBC (Bld) [#/Vol] 3.24 10*6/uL Low 3.95-5.11 [facility] Comment on above: Performed By: #### B C #### [address] [address] [employer]: Sarath Olivera MD WBC (Bld) [#/Vol] 8.0 10*3/uL Normal 3.5-11.3 [facility] Comment on above: Performed By: #### B C #### [address] [address] [employer]: Sarath Olivera MD PTon 02-22-2024 INR Coag (PPP) [Relative time] 1.6 {INR} Normal [facility] Comment on above: Result Comment: Therapeutic Range: Moderate Anticoagulant Intensity: INR = 2.0-3.0 High Anticoagulant Intensity: INR = 2.5-3.5 Performed By: #### D BOOKER UAMIC #### [facility] [address] [place] [address] [employer]: Sarath Olivera MD PT Coag (PPP) [Time] 18.6 s High 11.7-14.9 [facility] Comment on above: Performed By: #### D BOOKER UAMIC #### [facility] [employer] [address] [place] [address] [employer]: Sarath Olivera MD Basic Metab w/rfx MGon 02-20 Anion gap [Moles/Vol] 6 mmol/L Low 9-16 [facility] Comment on above: Performed By: #### B MPX, PT, CBC ####[facility] [address] [place], [place] [address])[phone] Director: Sarath Olivera MD Calcium [Mass/Vol] 8.5 mg/dL Low 8.6-10.4 [facility] Comment on above: Performed By: #### B MPX, PT, CBC ####[facility] [address] [place], [place] [phone] Director: Sarath Olivera MD Chloride [Moles/Vol] 108 mmol/L High 98-107 [facility] Comment on above: Performed By: #### B MPX, PT, CBC ####[facility] [address] [place], [place] [phone] Director: Sarath Olivera MD CO2 [Moles/Vol] 29 mmol/L Normal 20-31 [facility] Comment on above: Performed By: #### B MPX, PT, CBC ####[facility] [address] [place], [place] [address])[phone] Director: Sarath Olivera MD Creatinine [Mass/Vol] 0.7 mg/dL Normal 0.50-0.90 [facility] Comment on above: Performed By: #### B MPX, PT, CBC ####[facility] [address] [place] [address] Lab Director: Sarath Olivera MD GFR/1.73 sq M.predicted among non-blacks MDRD (S/P/Bld) [Vol rate/Area] 81 mL/min/{1.73_m2} Normal >60 [facility] Comment on above: Result Comment: These results [...] Performed By: #### B MPX, PT, CBC ####[facility] [address] [place] [address] [phone] Director: Sarath Olivera MD Glucose [Mass/Vol] 122 mg/dL High 74-99 [facility] Comment on above: Performed By: #### B MPX, PT, CBC ####[facility] [address] [place] [address] [phone])[phone] Director: Sarath Olivera MD Potassium [Moles/Vol] 4.2 mmol/L Normal 3.7-5.3 [facility] Comment on above: Performed By: #### B MPX, PT, CBC ####[facility] [address] [place] [address] [phone] Director: Sarath Olivera MD Sodium [Moles/Vol] 143 mmol/L Normal 136-145 [facility] Comment on above: Performed By: #### B MPX, PT, CBC ####[facility] [address] [place] [address] Lab Director: Sarath Olivera MD Urea nitrogen [Mass/Vol] 22 mg/dL Normal 8-23 [facility] Comment on above: Performed By: #### B MPX, PT, CBC ####[facility] [address] [place], [place] [phone] Director: Sarath Olivera MD CBCon 02-21-2024 Erythrocyte distribution width (RBC) [Ratio] 17.5 % High 11.8-14.4 [facility] Comment on above: Performed By: #### B MPX, PT, CBC ####[facility] [address] [place], [place] [phone] Director: Sarath Olivera MD Hematocrit (Bld) [Volume fraction] 32.1 % Low 36.3-47.1 [facility] Comment on above: Performed By: #### B MPX, PT, CBC ####[facility] [address] [place], [place] [phone])[phone] Director: Sarath Olivera MD Hemoglobin (Bld) [Mass/Vol] 9.7 g/dL Low 11.9-15.1 [facility] Comment on above: Performed By: #### B MPX, PT, CBC ####[facility] [address] [place], [place] [phone] Director: Sarath Olivera MD MCH (RBC) [Entitic mass] 30.5 pg Normal 25.2-33.5 [facility] Comment on above: Performed By: #### B MPX, PT, CBC ####[facility] [address] [place], [place] [phone] Director: Sarath Olivera MD MCHC (RBC) [Mass/Vol] 30.2 g/dL Normal 28.4-34.8 [facility] Comment on above: Performed By: #### B MPX, PT, CBC ####[facility] [address] [place], [place] [phone] Director: Sarath Olivera MD MCV (RBC) [Entitic vol] 100.9 fL Normal 82.6-102.9 [facility] Comment on above: Performed By: #### B MPX, PT, CBC ####[facility] [address] [place] [address] [phone] Director: Sarath Olivera MD NRBC Automated 0.0 per 100 WBC Normal 0.0 [facility] Comment on above: Performed By: #### B MPX, PT, CBC ####[address] [phone] Director: Sarath Olivera MD Platelet mean volume (Bld) [Entitic vol] 11.8 fL Normal 8.1-13.5 [facility] Comment on above: Performed By: #### B MPX, PT, CBC ####[facility] [address] [place] [address] [phone])[phone] Director: Sarath Olivera MD Platelets (Bld) [#/Vol] 183 10*3/uL Normal 138-453 [facility] Comment on above: Performed By: #### B MPX, PT, CBC ####[address] [phone] Director: Sarath Olivera MD RBC (Bld) [#/Vol] 3.18 10*6/uL Low 3.95-5.11 [facility] Comment on above: Performed By: #### B MPX, PT, CBC ####[facility] [address] [place] [address] [phone] Director: Sarath Olivera MD WBC (Bld) [#/Vol] 10.7 10*3/uL Normal 3.5-11.3 [facility] Comment on above: Performed By: #### B MPX, PT, CBC ####[facility] [address] Lab Director: Sarath Olivera MD PTon 02-21-2024 INR Coag (PPP) [Relative time] 1.6 {INR} Normal [facility] Comment on above: Result Comment: Therapeutic Range: Moderate Anticoagulant Intensity: INR = 2.0-3.0 High Anticoagulant Intensity: INR = 2.5-3.5 Performed By: #### B MPX, PT, CBC ####[address] [address] Lab Director: Sarath Olivera MD PT Coag (PPP) [Time] 18.8 s High 11.7-14.9 [facility] Comment on above: Performed By: #### B MPX, PT, CBC ####[facility] [address] [place] [address] Lab Director: Sarath Olivera MD Basic Metab w/rfx MGon 02-193 Anion gap [Moles/Vol] 6 mmol/L Low 9-16 [facility] Comment on above: Performed By: #### P T, BMPX, CBC ####[facility] [address] [place] [address] Lab Director: Sarath Olivera MD Calcium [Mass/Vol] 8.6 mg/dL Normal 8.6-10.4 [facility] Comment on above: Performed By: #### P T, BMPX, CBC ####[facility] [address] [place] [address] Lab Director: Sarath Olivera MD Chloride [Moles/Vol] 107 mmol/L Normal 98-107 [facility] Comment on above: Performed By: #### P T, BMPX, CBC ####[facility] [address] [place] [address] Lab Director: Sarath Olivera MD CO2 [Moles/Vol] 30 mmol/L Normal 20-31 [facility] Comment on above: Performed By: #### P T, BMPX, CBC ####[facility] [address] [place] [address] Lab Director: Sarath Olivera MD Creatinine [Mass/Vol] 0.9 mg/dL Normal 0.50-0.90 [facility] Comment on above: Performed By: #### P T, BMPX, CBC ####[facility] [address] [place] [address] Lab Director: Sarath Olivera MD GFR/1.73 sq M.predicted among non-blacks MDRD (S/P/Bld) [Vol rate/Area] 64 mL/min/{1.73_m2} Normal >60 [facility] Comment on above: Result Comment: These results [...] By: #### P T, BMPX, CBC ####[facility] [address] [place] [address] Lab Director: Sarath Olivera MD Glucose [Mass/Vol] 143 mg/dL High 74-99 [facility] Comment on above: Performed By: #### P T, BMPX, CBC ####[facility] [address] [place] [address] Lab Director: Sarath Olivera MD Potassium [Moles/Vol] 4.2 mmol/L Normal 3.7-5.3 [facility] Comment on above: Performed By: #### P T, BMPX, CBC ####[facility] [address] [place] [address] Lab Director: Sarath Olivera MD Sodium [Moles/Vol] 143 mmol/L Normal 136-145 [facility] Comment on above: Performed By: #### P T, BMPX, CBC ####[facility] [address] [place] [address] Lab Director: Sarath Olivera MD Urea nitrogen [Mass/Vol] 20 mg/dL Normal 8-23 [facility] Comment on above: Performed By: #### P T, BMPX, CBC ####[facility] [address] [place] [address] Lab Director: Sarath Olivera MD CBCon 02-20-2024 Erythrocyte distribution width (RBC) [Ratio] 17.4 % High 11.8-14.4 [facility] Comment on above: Performed By: #### P T, BMPX, CBC ####[facility] [address] [place] [address] Lab Director: Sarath Olivera MD Hematocrit (Bld) [Volume fraction] 32.6 % Low 36.3-47.1 [facility] Comment on above: Performed By: #### P T, BMPX, CBC ####[facility] [address] [place] [address] Lab Director: Sarath Olivera MD Hemoglobin (Bld) [Mass/Vol] 9.9 g/dL Low 11.9-15.1 [facility] Comment on above: Performed By: #### P T, BMPX, CBC ####[facility] [address] [place] [address] Lab Director: Sarath Olivera MD MCH (RBC) [Entitic mass] 30.7 pg Normal 25.2-33.5 [facility] Comment on above: Performed By: #### P T, BMPX, CBC ####[facility] [address] [place] [address] Lab Director: Sarath Olivera MD MCHC (RBC) [Mass/Vol] 30.4 g/dL Normal 28.4-34.8 [facility] Comment on above: Performed By: #### P T, BMPX, CBC ####[facility] [address] [place] [address] [phone] Director: Sarath Olivera MD MCV (RBC) [Entitic vol] 100.9 fL Normal 82.6-102.9 [facility] Comment on above: Performed By: #### P T, BMPX, CBC ####[facility] [address] [place] [address] [phone] Director: Sarath Olivera MD NRBC Automated 0.0 per 100 WBC Normal 0.0 [facility] Comment on above: Performed By: #### P T, BMPX, CBC ####[address] [phone] Director: Sarath Olivera MD Platelet mean volume (Bld) [Entitic vol] 11.6 fL Normal 8.1-13.5 [facility] Comment on above: Performed By: #### P T, BMPX, CBC ####[address] [phone] Director: Sarath Olivera MD Platelets (Bld) [#/Vol] 176 10*3/uL Normal 138-453 [facility] Comment on above: Performed By: #### P T, BMPX, CBC ####[facility] [address] [place] [address] [phone] Director: Sarath Olivera MD RBC (Bld) [#/Vol] 3.23 10*6/uL Low 3.95-5.11 [facility] Comment on above: Performed By: #### P T, BMPX, CBC ####[facility] [address] [place] [address] [phone] Director: Sarath Olivera MD WBC (Bld) [#/Vol] 12.8 10*3/uL High 3.5-11.3 [facility] Comment on above: Performed By: #### P T, BMPX, CBC ####[facility] [address] [place] [address] Lab Director: Sarath Olivera MD PTon 02-20-2024 INR Coag (PPP) [Relative time] 1.7 {INR} Normal [facility] Comment on above: Result Comment: Therapeutic Range: Moderate Anticoagulant Intensity: INR = 2.0-3.0 High Anticoagulant Intensity: INR = 2.5-3.5 Performed By: #### P T, BMPX, CBC ####[facility] [address] [place] [address] Lab Director: Sarath Olivera MD PT Coag (PPP) [Time] 19.9 s High 11.7-14.9 [facility] Comment on above: Performed By: #### P T, BMPX, CBC ####[facility] [address] [place] [address] Lab Director: Sarath Olivera MD Basic Metab w/rfx MGon 02-18 Anion gap [Moles/Vol] 7 mmol/L Low 9-16 [facility] Comment on above: Performed By: #### C BC, PT, BMPX ####[facility] [address] [place] [address] Lab Director: Sarath Olivera MD Calcium [Mass/Vol] 8.3 mg/dL Low 8.6-10.4 [facility] Comment on above: Performed By: #### C BC, PT, BMPX ####[facility] [address] [place] [address] Lab Director: Sarath Olivera MD Chloride [Moles/Vol] 106 mmol/L Normal 98-107 [facility] Comment on above: Performed By: #### C BC, PT, BMPX ####[facility] [address] [place] [address] Lab Director: Sarath Olivera MD CO2 [Moles/Vol] 27 mmol/L Normal 20-31 [facility] Comment on above: Performed By: #### C BC, PT, BMPX ####[address] [address] Lab Director: Sarath Olivera MD Creatinine [Mass/Vol] 0.8 mg/dL Normal 0.50-0.90 [facility] Comment on above: Performed By: #### C PAOLA, PT, BMPX ####[address] [address] Lab Director: Sarath Olivera MD GFR/1.73 sq M.predicted among non-blacks MDRD (S/P/Bld) [Vol rate/Area] 78 mL/min/{1.73_m2} Normal >60 [facility] Comment on above: Result Comment: These results [...] Performed By: #### C PAOLA PT, BMPX ####[facility] [address] [place] [address] Lab Director: Sarath Olivera MD Glucose [Mass/Vol] 174 mg/dL High 74-99 [facility] Comment on above: Performed By: #### C BC PT, BMPX ####[facility] [address] [place] [address] Lab Director: Sarath Olivera MD Potassium [Moles/Vol] 4.3 mmol/L Normal 3.7-5.3 [facility] Comment on above: Performed By: #### C BC, PT, BMPX ####[facility] [address] [place], [place] [phone] Director: Sarath Olivera MD Sodium [Moles/Vol] 140 mmol/L Normal 136-145 [facility] Comment on above: Performed By: #### C BC, PT, BMPX ####[facility] [address] [place], [place] [phone] Director: Sarath Olivera MD Urea nitrogen [Mass/Vol] 14 mg/dL Normal 8-23 [facility] Comment on above: Performed By: #### C BC, PT, BMPX ####[facility] [address] [place], [place] [phone] Director: Sarath Olivera MD CBCon 02-19-2024 Erythrocyte distribution width (RBC) [Ratio] 17.8 % High 11.8-14.4 [facility] Comment on above: Performed By: #### C BC, PT, BMPX ####[facility] [address] [place], [place] [address])[phone] Director: Sarath Olivera MD Hematocrit (Bld) [Volume fraction] 33.5 % Low 36.3-47.1 [facility] Comment on above: Performed By: #### C BC, PT, BMPX ####[facility] [address] [place], [place] [address])[phone] Director: Sarath Olivera MD Hemoglobin (Bld) [Mass/Vol] 9.7 g/dL Low 11.9-15.1 [facility] Comment on above: Performed By: #### C BC, PT, BMPX ####[facility] [address] [place], [place] [phone] Director: Sarath Olivera MD MCH (RBC) [Entitic mass] 31.1 pg Normal 25.2-33.5 [facility] Comment on above: Performed By: #### C BC, PT, BMPX ####[facility] [address] [place], [place] [phone] Director: Sarath Olivera MD MCHC (RBC) [Mass/Vol] 29.0 g/dL Normal 28.4-34.8 [facility] Comment on above: Performed By: #### C BC, PT, BMPX ####[facility] [address] [place], [place] [phone] Director: Sarath Olivera MD MCV (RBC) [Entitic vol] 107.4 fL High 82.6-102.9 [facility] Comment on above: Performed By: #### C BC, PT, BMPX ####[facility] [address] [place], [place] [phone] Director: Sarath Olivera MD NRBC Automated 0.0 per 100 WBC Normal 0.0 [facility] Comment on above: Performed By: #### C BC, PT, BMPX ####[facility] [address] [place] [address] [phone] Director: Sarath Olivera MD Platelet mean volume (Bld) [Entitic vol] 11.5 fL Normal 8.1-13.5 [facility] Comment on above: Performed By: #### C BC, PT, BMPX ####[facility] [address] [place] [address] [phone] Director: Sarath Olivera MD Platelets (Bld) [#/Vol] 165 10*3/uL Normal 138-453 [facility] Comment on above: Performed By: #### C BC, PT, BMPX ####[facility] [address] [place], [place] [phone] Director: Sarath Olivera MD RBC (Bld) [#/Vol] 3.12 10*6/uL Low 3.95-5.11 [facility] Comment on above: Performed By: #### C BC, PT, BMPX ####[facility] [address] [place], [place] [phone] Director: Sarath Olivera MD WBC (Bld) [#/Vol] 10.3 10*3/uL Normal 3.5-11.3 [facility] Comment on above: Performed By: #### C BC, PT, BMPX ####[facility] [address] [place], [place] [address])[phone] Director: Sarath Olivera MD PTon 9 INR Coag (PPP) [Relative time] 1.7 {INR} Normal [facility] Comment on above: Result Comment: Therapeutic Range: Moderate Anticoagulant Intensity: INR = 2.0-3.0 High Anticoagulant Intensity: INR = 2.5-3.5 Performed By: #### C BC, PT, BMPX ####[place], [place] [address])[phone] Director: Sarath Olivera MD PT Coag (PPP) [Time] 19.3 s High 11.7-14.9 [facility] Comment on above: Performed By: #### C BC, PT, BMPX ####[place], [place] [address])[phone] Director: Sarath Olivera MD CBC with Diffon 7 Abs. Basophil <0.03 Normal 0.00-0.20 [facility] Comment on above: Performed By: #### B C #### [facility] [employer] [address] [place] [address] [employer]: Sarath Olivera MD Abs. Eosinophil <0.03 Normal 0.00-0.44 [facility] Comment on above: Performed By: #### B C #### [facility] [address] [place] [address] [employer]: Sarath Olivera MD Abs.Imm.Granulocyte 0.06 k/uL Normal 0.00-0.30 [facility] Comment on above: Performed By: #### B C #### [address] [address] [employer]: Sarath Olivera MD Abs.Neutrophil (Seg) 9.40 k/uL High 1.50-8.10 [facility] Comment on above: Performed By: #### B C #### [address] [address] [employer]: Sarath Olivera MD Basophils/100 WBC (Bld) 0 % Normal 0-2 [facility] Comment on above: Performed By: #### B C #### [address] [address] [employer]: Sarath Olivera MD Eosinophils/100 WBC (Bld) 0 % Low 1-4 [facility] Comment on above: Performed By: #### B C #### [address] [address] [employer]: Sarath Olivera MD Erythrocyte distribution width (RBC) [Ratio] 17.9 % High 11.8-14.4 [facility] Comment on above: Performed By: #### B C #### [address] [address] [employer]: Sarath Olivera MD Hematocrit (Bld) [Volume fraction] 39.2 % Normal 36.3-47.1 [facility] Comment on above: Performed By: #### B C #### [address] [address] [employer]: Sarath Olivera MD Hemoglobin (Bld) [Mass/Vol] 11.9 g/dL Normal 11.9-15.1 [facility] Comment on above: Performed By: #### B C #### [address] [address] [employer]: Sarath Olivera MD Immature granulocytes/100 WBC (Bld) 1 % High 0 [facility] Comment on above: Performed By: #### B C #### [address] [address] [employer]: Sarath Olivera MD Lymphocytes (Bld) [#/Vol] 1.51 10*3/uL Normal 1.10-3.70 [facility] Comment on above: Performed By: #### B C #### [address] [address] [employer]: Sarath Olivera MD Lymphocytes/100 WBC (Bld) 13 % Low 24-43 [facility] Comment on above: Performed By: #### B C #### [address] [address] [employer]: Sarath Olivera MD MCH (RBC) [Entitic mass] 30.9 pg Normal 25.2-33.5 [facility] Comment on above: Performed By: #### B C #### [place] [address] [employer]: Sarath Olivera MD MCHC (RBC) [Mass/Vol] 30.4 g/dL Normal 28.4-34.8 [facility] Comment on above: Performed By: #### B C #### [address] [address] [employer]: Sarath Olivera MD MCV (RBC) [Entitic vol] 101.8 fL Normal 82.6-102.9 [facility] Comment on above: Performed By: #### B C #### [address] [address] [employer]: Sarath Olivera MD Monocytes (Bld) [#/Vol] 0.50 10*3/uL Normal 0.10-1.20 [facility] Comment on above: Performed By: #### B C #### [address] [address] [employer]: Sarath Olivera MD Monocytes/100 WBC (Bld) 4 % Normal 3-12 [facility] Comment on above: Performed By: #### B C #### [address] [address] [employer]: Sarath Olivera MD Neutrophil (Seg) 82 % High 36-65 [facility] Comment on above: Performed By: #### B C #### [address] [address] [employer]: Sarath Olivera MD NRBC Automated 0.0 per 100 WBC Normal 0.0 [facility] Comment on above: Performed By: #### B C #### [address] [address] [employer]: Sarath Olivera MD Platelet mean volume (Bld) [Entitic vol] 11.2 fL Normal 8.1-13.5 [facility] Comment on above: Performed By: #### B C #### [address] [address] [employer]: Sarath Olivera MD Platelets (Bld) [#/Vol] 254 10*3/uL Normal 138-453 [facility] Comment on above: Performed By: #### B C #### [address] [address] [employer]: Sarath Olivera MD RBC (Bld) [#/Vol] 3.85 10*6/uL Low 3.95-5.11 [facility] Comment on above: Performed By: #### B C #### [address] [address] [employer]: Sarath Olivera MD RBC morphology finding Nom (Bld) ANISOCYTOSIS PRESENT Normal [facility] Comment on above: Performed By: #### B C #### [address] [address] [employer]: Sarath Olivera MD WBC (Bld) [#/Vol] 11.5 10*3/uL High 3.5-11.3 [facility] Comment on above: Performed By: #### B C #### [address] [address] [employer]: Sarath Olivera MD Comp Metabolic Pr/rfx MGon 0 - Albumin [Mass/Vol] 3.6 g/dL Normal 3.5-5.2 [facility] Comment on above: Performed By: #### B C #### [address] [address] [employer]: Sarath Olivera MD Albumin/Glob Ratio 1.0 Normal 1.0-2.5 [facility] Comment on above: Performed By: #### B C #### [address] [address] [employer]: Sarath Olivera MD Alkaline Phos 131 U/L High 35-104 [facility] Comment on above: Performed By: #### B C #### [address] [address] [employer]: Sarath Olivera MD ALT [Catalytic activity/Vol] 7 U/L Low 10-35 [facility] Comment on above: Performed By: #### B C #### [address] [address] [employer]: Sarath Olivera MD Anion gap [Moles/Vol] 13 mmol/L Normal 9-16 [facility] Comment on above: Performed By: #### B C #### [address] [address] [employer]: Sarath Olivera MD AST [Catalytic activity/Vol] 26 U/L Normal 10-35 [facility] Comment on above: Performed By: #### B C #### [address] [address] [employer]: Sarath Olivera MD Bilirubin [Mass/Vol] 0.5 mg/dL Normal 0.00-1.20 [facility] Comment on above: Performed By: #### B C #### [address] [address] [employer]: Sarath Olivera MD Calcium [Mass/Vol] 9.0 mg/dL Normal 8.6-10.4 [facility] Comment on above: Performed By: #### B C #### [address] [address] [employer]: Sarath Olivera MD Chloride [Moles/Vol] 103 mmol/L Normal 98-107 [facility] Comment on above: Performed By: #### B C #### [address] [address] [employer]: Sarath Olivera MD CO2 [Moles/Vol] 27 mmol/L Normal 20-31 [facility] Comment on above: Performed By: #### B C #### [address] [address] [employer]: Sarath Olivera MD Creatinine [Mass/Vol] 0.9 mg/dL Normal 0.50-0.90 [facility] Comment on above: Performed By: #### B C #### [address] [address] [employer]: Sarath Olivera MD GFR/1.73 sq M.predicted among non-blacks MDRD (S/P/Bld) [Vol rate/Area] 61 mL/min/{1.73_m2} Normal >60 [facility] Comment on above: Result Comment: These results [...] secretion. Performed By: #### B C #### [facility] [employer] [address] [place] [address] [employer]: Sarath Olivera MD Glucose [Mass/Vol] 240 mg/dL High 74-99 [facility] Comment on above: Performed By: #### B C #### [address] [address] [employer]: Sarath Olivera MD Potassium [Moles/Vol] 4.4 mmol/L Normal 3.7-5.3 [facility] Comment on above: Performed By: #### B C #### [facility] [employer] [address] [place] [address] [employer]: Sarath Olivera MD Protein [Mass/Vol] 6.4 g/dL Low 6.6-8.7 [facility] Comment on above: Performed By: #### B C #### [facility] [employer] [address] [place] [address] [employer]: Sarath Olivera MD Sodium [Moles/Vol] 143 mmol/L Normal 136-145 [facility] Comment on above: Performed By: #### B C #### [address] [address] [employer]: Sarath Olivera MD Urea nitrogen [Mass/Vol] 10 mg/dL Normal 8-23 [facility] Comment on above: Performed By: #### B C #### [address] [address] [employer]: Sarath Olivera MD PTon 02-18-2024 INR Coag (PPP) [Relative time] 1.4 {INR} Normal [facility] Comment on above: Result Comment: Therapeutic Range: Moderate Anticoagulant Intensity: INR = 2.0-3.0 High Anticoagulant Intensity: INR = 2.5-3.5 Performed By: #### B C #### [address] [address] [employer]: Sarath Olivera MD PT Coag (PPP) [Time] 17.1 s High 11.7-14.9 [facility] Comment on above: Performed By: #### B C #### [address] [address] [employer]: Sarath Olivera MD Type + Screenon 02-18-2024 Type + Screen Sample Expiration 02/20/2024,2359 Arm Band Number [id number] ABO/Rh(D) O POSITIVE Antibody Screen NEGATIVE Unit Number [id number] Blood Component Type Leukocyte Reduced Red Cell Unit Division 00 Status of Unit REL FROM ALLOC Transfusion Status OK TO TRANSFUSE Crossmatch Result COMPATIBLE Unit Number [id number] Blood Component Type Leukocyte Reduced Red Cell Unit Division 00 Status of Unit REL FROM ALLOC Transfusion Status OK TO TRANSFUSE Crossmatch Result COMPATIBLE Normal [facility] Comment on above: Performed By: #### T YS #### [address] [address] [employer]: Sarath Olivera MD XR SHOULDER LEFT (MIN [...] Lucian Dee MD 02/18/24 Final result Normal [facility] APTTon 02-17-2024 aPTT Coag (Bld) [Time] 28.7 s Normal 23.0-36.5 [facility] Comment on above: Result Comment: IV Heparin Therapy Range: 66.0-92.0 sec Performed By: #### D AU, UAMIC #### [address] [address] [employer]: Sarath Olivera MD aPTT Coag (Bld) [Time] 30.9 s Normal 23.0-36.5 [facility] Comment on above: Result Comment: IV Heparin Therapy Range: 66.0-92.0 sec Performed By: #### B C #### [address] [address] [employer]: Sarath Olivera MD FFP, Transfuseon 02-17-2024 FFP, Transfuse Unit Number [id number] Blood Component Type FRESH PLASMA Unit Division 00 Status of Unit TRANSFUSED Transfusion Status OK TO TRANSFUSE [facility] Comment on above: Performed By: #### B C #### [address] [address] [employer]: Sarath Olivera MD FFP, Transfuse Unit Number [id number] Blood Component Type FRESH PLASMA Unit Division 00 Status of Unit TRANSFUSED Transfusion Status OK TO TRANSFUSE [facility] Comment on above: Performed By: #### T FFP #### [address] [address] [employer]: Sarath Olivera MD PTon 02-17-2024 INR Coag (PPP) [Relative time] 1.5 {INR} Normal [facility] Comment on above: Result Comment: Therapeutic Range: Moderate Anticoagulant Intensity: INR = 2.0-3.0 High Anticoagulant Intensity: INR = 2.5-3.5 Performed By: #### D CECY CELESTE #### [facility] [address] [place] [address] [employer]: Sarath Olivera MD PT Coag (PPP) [Time] 17.4 s High 11.7-14.9 [facility] Comment on above: Performed By: #### D CECY CELESTE #### [facility] [address] [place] [address] [employer]: Sarath Olivera MD INR Coag (PPP) [Relative time] 1.7 {INR} Normal [facility] Comment on above: Result Comment: Therapeutic Range: Moderate Anticoagulant Intensity: INR = 2.0-3.0 High Anticoagulant Intensity: INR = 2.5-3.5 Performed By: #### B C #### [facility] [address] [place] [address] [employer]: Sarath Olivera MD PT Coag (PPP) [Time] 19.8 s High 11.7-14.9 [facility] Comment on above: Performed By: #### B C #### [facility] [address] [place] [address] [employer]: Sarath Olivera MD PT (Whole Blood)on 4 Intl. Normal. Ratio 2.0 Normal [facility] Comment on above: Result Comment: Therapeutic Range: Moderate Anticoagulant Intensity: INR = 2.0-3.0 High Anticoagulant Intensity: INR = 2.5-3.5 PT Coag (PPP) [Time] 23.6 s High 10.4-14.2 [facility] CBC with Auto Differentialon 02-02-2024 Basophils (Bld) [#/Vol] [place] Basophils/100 WBC (Bld) 0 % 0 - 2 % [place] Eosinophils (Bld) [#/Vol] 0.08 10*3/uL [place] Eosinophils/100 WBC (Bld) 1 % 1 - 4 % [facility] Erythrocyte distribution width (RBC) [Ratio] 16.1 % High 11.8 - 14.4 % [facility] Hematocrit (Bld) [Volume fraction] 33.7 % Low 36.3 - 47.1 % [facility] Hemoglobin (Bld) [Mass/Vol] 10.4 g/dL Low 11.9 - 15.1 g/dL [facility] Immature granulocytes (Bld) [#/Vol] [facility] Immature granulocytes/100 WBC (Bld) 0 % 0 [facility] Interpretation and review of laboratory results Abnormal [facility] Lymphocytes/100 WBC (Bld) 34 % 24 - 43 % [facility] Lymphocytes/100 WBC (Bld) 1.89 % [facility] MCH (RBC) [Entitic mass] 30.6 pg 25.2 - 33.5 pg [facility] MCHC (RBC) [Mass/Vol] 30.9 g/dL 28.4 - 34.8 g/dL [facility] MCV (RBC) [Entitic vol] 99.1 fL 82.6 - 102.9 fL [facility] Monocytes/100 WBC (Bld) 8 % 3 - 12 % [facility] Monocytes/100 WBC (Bld) 0.44 % [facility] Neutrophils/100 WBC (Bld) 57 % 36 - 65 % [facility] Nucleated RBC/100 WBC (Bld) [Ratio] 0.0 % 0.0 per 100 WBC [facility] Platelet mean volume (Bld) [Entitic vol] 11.6 fL 8.1 - 13.5 fL [facility] Platelets (Bld) [#/Vol] 250 10*3/uL [facility] RBC (Bld) [#/Vol] 3.40 10*6/uL Low 3.95 - 5.1 1 m/uL [facility] Segmented neutrophils/100 WBC (Bld) 3.17 % [facility] WBC other (Bld) [#/Vol] 5.6 [facility] CBC with Diffon 02-02-2024 Abs. Basophil <0.03 Normal 0.00-0.20 [facility] Comment on above: Performed By: #### C P, CDP #### [facility] [address] [place], [place] [phone] [employer]: Concepción De La Torre MD Abs.Imm.Granulocyte <0.03 Normal 0.00-0.30 [facility] Comment on above: Performed By: #### C P, CDP #### [facility] [address] [place], [place] [address] [employer]: Concepción De La Torre MD Abs.Neutrophil (Seg) 3.17 k/uL Normal 1.50-8.10 [facility] Comment on above: Performed By: #### C P, CDP #### [facility] [address] [place], [facility] [employer]: Concepción De La Torre MD Basophils/100 WBC (Bld) 0 % Normal 0-2 [facility] Comment on above: Performed By: #### C P, CDP #### [facility] [address] [place] [address] [place] [place], [place] [phone] [employer]: Concepción De La Torre MD Eosinophils (Bld) [#/Vol] 0.08 10*3/uL Normal 0.00-0.44 [facility] Comment on above: Performed By: #### C P, CDP #### [facility] [address] [place], [place] [phone] [employer]: Concepción De La Torre MD Eosinophils/100 WBC (Bld) 1 % Normal 1-4 [facility] Comment on above: Performed By: #### C P, CDP #### [address] [place], [place] [phone] [employer]: Concepción De La Torre MD Erythrocyte distribution width (RBC) [Ratio] 16.1 % High 11.8-14.4 [facility] Comment on above: Performed By: #### C P, CDP #### [facility] [address] [place], [place] [phone] [employer]: Concepción De La Torre MD Hematocrit (Bld) [Volume fraction] 33.7 % Low 36.3-47.1 [facility] Comment on above: Performed By: #### C P, CDP #### [facility] [address] [place], [facility]83 [employer]: Concepción De La Torre MD Hemoglobin (Bld) [Mass/Vol] 10.4 g/dL Low 11.9-15.1 [facility] Comment on above: Performed By: #### C P, CDP #### [address] [place], [place] [phone] [employer]: Concepción De La Torre MD Immature granulocytes/100 WBC (Bld) 0 % Normal 0 [facility] Comment on above: Performed By: #### C P, CDP #### [address] [place], [place] [id number] [employer]: Concepción De La Torre MD Lymphocytes (Bld) [#/Vol] 1.89 10*3/uL Normal 1.10-3.70 [facility] Comment on above: Performed By: #### C P, CDP #### [facility] [address] [place] [address] Dr. [place], [place] [address] [employer]: Concepción De La Torre MD Lymphocytes/100 WBC (Bld) 34 % Normal 24-43 [facility] Comment on above: Performed By: #### C P, CDP #### [address] [place], [facility]83 [employer]: Concepción De La Torre MD MCH (RBC) [Entitic mass] 30.6 pg Normal 25.2-33.5 [facility] Comment on above: Performed By: #### C P, CDP #### [address] [place], [place] [phone] [employer]: Concepción De La Torre MD MCHC (RBC) [Mass/Vol] 30.9 g/dL Normal 28.4-34.[address] [facility] Comment on above: Performed By: #### C P, CDP #### [address] [place], [place] [phone] [employer]: Concepción De La Torre MD MCV (RBC) [Entitic vol] 99.1 fL Normal 82.6-102.9 [facility] Comment on above: Performed By: #### C P, CDP #### [address] [place], [place] [phone] [employer]: Concepción De La Torre MD Monocytes (Bld) [#/Vol] 0.44 10*3/uL Normal 0.10-1.20 [facility] Comment on above: Performed By: #### C P, CDP #### [address] [place], [place] [phone] [employer]: Concepción De La Torre MD Monocytes/100 WBC (Bld) 8 % Normal 3-12 [facility] Comment on above: Performed By: #### C P, CDP #### [address] [place], [place] [phone] [employer]: Concepción De La Torre MD Neutrophil (Seg) 57 % Normal 36-65 [facility] Comment on above: Performed By: #### C P, CDP #### [address] [place], [place] [phone] [employer]: Concepción De La Torre MD NRBC Automated 0.0 per 100 WBC Normal 0.0 [facility] Comment on above: Performed By: #### C P, CDP #### [address] [place], [place] [phone] [employer]: Concepción De La Torre MD Platelet mean volume (Bld) [Entitic vol] 11.6 fL Normal 8.1-13.5 [facility] Comment on above: Performed By: #### C P, CDP #### [facility] [address] [place] [address] [employer]: Concepción De La Torre MD Platelets (Bld) [#/Vol] 250 10*3/uL Normal 138-453 [facility] Comment on above: Performed By: #### C P, CDP #### [facility] [address] [place] [address] Dr. [place], [place] [phone] [employer]: Concepción De La Torre MD RBC (Bld) [#/Vol] 3.40 10*6/uL Low 3.95-5.11 [facility] Comment on above: Performed By: #### C P, CDP #### [address] [place], [place] [phone] [employer]: Concepción De La Torre MD WBC (Bld) [#/Vol] 5.6 10*3/uL Normal 3.5-11.3 [facility] Comment on above: Performed By: #### C P, CDP #### [address] [place], [place] [phone] [employer]: Concepción De La Torre MD Comp Metabolic Profon 2023 Albumin [Mass/Vol] 2.7 g/dL Low 3.5-5.2 [facility] Comment on above: Performed By: #### C P, CDP #### [facility] [address] [place] [address] Dr. [place], [place] [phone] [employer]: Concepción De La Torre MD Albumin/Glob Ratio 1.0 Normal 1.0-2.5 [facility] Comment on above: Performed By: #### C P, CDP #### [facility] [address] [place] [address] [place] [address] [employer]: Concepción De La Torre MD Alkaline Phos 116 U/L High 35-104 [facility] Comment on above: Performed By: #### C P, CDP #### [facility] [address] [place], [place] [phone] [employer]: Concepción De La Torre MD ALT [Catalytic activity/Vol] 10 U/L Normal 5-33 [facility] Comment on above: Performed By: #### C P, CDP #### [facility] [address] [place], [place] [phone] [employer]: Concepción De La Torre MD Anion gap [Moles/Vol] 11 mmol/L Normal 9-[address] [facility] Comment on above: Performed By: #### C P, CDP #### [facility] [address] [place], [place] [phone] [employer]: Concepción De La Torre MD AST [Catalytic activity/Vol] 21 U/L Normal <32 [facility] Comment on above: Performed By: #### C P, CDP #### [facility] [address] [place], [place] [phone] [employer]: Concepción De La Torre MD Bilirubin [Mass/Vol] 0.4 mg/dL Normal 0.3-1.2 [facility] Comment on above: Performed By: #### C P, CDP #### [facility] [address] [place], [place] [phone] [employer]: Concepción De La Torre MD BUN/CRE Ratio 15 Normal 9-20 [facility] Comment on above: Performed By: #### C P, CDP #### [facility] [address] [place], [place] [phone] [employer]: Concepción De La Torre MD Calcium [Mass/Vol] 7.8 mg/dL Low 8.6-10.4 [facility] Comment on above: Performed By: #### C P, CDP #### [facility] [address] [place], [place] [phone] [employer]: Concepción De La Torre MD Chloride [Moles/Vol] 108 mmol/L High 98-107 [facility] Comment on above: Performed By: #### C P, CDP #### [facility] [address] [place], [place] [phone] [employer]: Concepción De La Torre MD CO2 [Moles/Vol] 24 mmol/L Normal 20-31 [facility] Comment on above: Performed By: #### C P, CDP #### [facility] [address] [place], [place] [phone] [employer]: Concepción De La Torre MD Creatinine [Mass/Vol] 0.8 mg/dL Normal 0.5-0.[address] [facility] Comment on above: Performed By: #### C P, CDP #### [facility] [address] [place] [address] [employer]: Concepción De La Torre MD GFR/1.73 sq M.predicted among non-blacks MDRD (S/P/Bld) [Vol rate/Area] 73 mL/min/{1.73_m2} Normal >60 [facility] Comment on above: Result Comment: These [...] Performed By: #### C P, CDP #### [facility] [address] [place], [place] [phone] [employer]: Concepción De La Torre MD Glucose [Mass/Vol] 123 mg/dL High 70-99 [facility] Comment on above: Performed By: #### C P, CDP #### [facility] [address] [place] [address] [employer]: Concepción De La Torre MD Potassium [Moles/Vol] 4.0 mmol/L Normal 3.7-5.[address] [facility] Comment on above: Performed By: #### C P, CDP #### [facility] [address] [place] [address] [employer]: Concepción De La Torre MD Protein [Mass/Vol] 5.4 g/dL Low 6.4-8.3 [facility] Comment on above: Performed By: #### C P, CDP #### [facility] [address] [place] [address] [employer]: Concepción De La Torre MD Sodium [Moles/Vol] 143 mmol/L Normal 135-144 [facility] Comment on above: Performed By: #### C P, CDP #### [facility] [address] [place], [place] [phone] [employer]: Concepción De La Torre MD Urea nitrogen [Mass/Vol] 12 mg/dL Normal 8-23 [facility] Comment on above: Performed By: #### C P, CDP #### [facility] [address] [place] [address] [employer]: Concepción De La Torre MD Comprehensive Metabolic Pane [facility] 02-02-2024 Albumin [Mass/Vol] 2.7 g/dL Low 3.5 - 5.2 g/dL [facility] Albumin/Globulin [Mass ratio] 1.0 {ratio} 1.0 - 2.5 [facility] ALP [Catalytic activity/Vol] 116 U/L High 35 - 104 U/L [facility] ALT [Catalytic activity/Vol] 10 U/L 5 - 33 U/L [facility] Anion gap [Moles/Vol] 11 mmol/L 9 - 17 mmol/L [facility] AST [Catalytic activity/Vol] 21 U/L NINF - 32 U/L [facility] Bilirubin [Mass/Vol] 0.4 mg/dL 0.3 - 1 .2 mg/dL [facility] Calcium [Mass/Vol] 7.8 mg/dL Low 8.6 - 10. 4 mg/dL [facility] Chloride [Moles/Vol] 108 mmol/L High 98 - 10 7 mmol/L [facility] CO2 [Moles/Vol] 24 mmol/L 20 - 31 mmol/L [facility] Creatinine [Mass/Vol] 0.8 mg/dL 0.5 - 0.9 mg/dL [facility] Est, Glom Filt Rate 73 - [facility] Comment on above: These results are [...] 123 mg/dL High 70 - 99 mg/dL [facility] Interpretation and review of laboratory results Abnormal [facility] Potassium [Moles/Vol] 4.0 mmol/L 3.7 - 5.3 mmol/L [facility] Protein [Mass/Vol] 5.4 g/dL Low 6.4 - 8.3 g/dL [facility] Sodium [Moles/Vol] 143 mmol/L 135 - 144 mmol/L [facility] Urea nitrogen [Mass/Vol] 12 mg/dL 8 - 23 mg/dL [facility] Urea nitrogen/Creatinine [Mass ratio] 15 mg/mg 9 - [address] [facility] [address] HEAD WO CONTRASTon 2023 CT [...] acute intracranial process identified. Interpreted by: Renny Rodirguez MD Signed by: Renny Rodriguez MD 01/27/24 Final result Normal [facility] CBC with Diffon 01-26-2024 Abs. Basophil <0.03 Normal 0.00-0.20 [facility] Comment on above: Performed By: #### C SCHUYLER CMPF #### [address] [place] [phone] [employer]: Concepción De La Torre MD Abs.Imm.Granulocyte 0.03 k/uL Normal 0.00-0.30 [facility] Comment on above: Performed By: #### C SCHUYLER CMPF #### [address] [place], [facility]83 [employer]: Concepción De La Torre MD Abs.Neutrophil (Seg) 2.15 k/uL Normal 1.50-8.10 [facility] Comment on above: Performed By: #### C SCHUYLER CMPF #### [address] [place], [facility]83 [employer]: Concepción De La Torre MD Basophils/100 WBC (Bld) 1 % Normal 0-2 [facility] Comment on above: Performed By: #### C SCHUYLER CMPF #### [address] [place] [address] [employer]: Concepción De La Torre MD Eosinophils (Bld) [#/Vol] 0.04 10*3/uL Normal 0.00-0.44 [facility] Comment on above: Performed By: #### C SCHUYLER CMPF #### [facility] [address] [place], [place] [phone] [employer]: Concepción De La Torre MD Eosinophils/100 WBC (Bld) 1 % Normal 1-4 [facility] Comment on above: Performed By: #### C DP, CMPF #### [address] [place], [place] [phone] [employer]: Concepción De La Torre MD Erythrocyte distribution width (RBC) [Ratio] 16.3 % High 11.8-14.4 [facility] Comment on above: Performed By: #### C DP, CMPF #### [address] [place], [place] [phone] [employer]: Concepción De La Torre MD Hematocrit (Bld) [Volume fraction] 30.9 % Low 36.3-47.1 [facility] Comment on above: Performed By: #### C DP, CMPF #### [address] [place], [place] [phone] [employer]: Concepción De La Torre MD Hemoglobin (Bld) [Mass/Vol] 9.7 g/dL Low 11.9-15.1 [facility] Comment on above: Performed By: #### C DP, CMPF #### [address] [place], [place] [phone] [employer]: Concepción De La Torre MD Immature granulocytes/100 WBC (Bld) 1 % High 0 [facility] Comment on above: Performed By: #### C DP, CMPF #### [address] [place], [place] [phone] [employer]: Concepción De La Torre MD Lymphocytes (Bld) [#/Vol] 0.79 10*3/uL Low 1.10-3.70 [facility] Comment on above: Performed By: #### C DP, CMPF #### [address] [place] [address] [employer]: Concepción De La Torre MD Lymphocytes/100 WBC (Bld) 22 % Low 24-43 [facility] Comment on above: Performed By: #### C DP, CMPF #### [facility] [address] [place] [address] [employer]: Concepción De La Torre MD MCH (RBC) [Entitic mass] 31.4 pg Normal 25.2-33.5 [facility] Comment on above: Performed By: #### C DP, CMPF #### [facility] [address] [place], [facility]83 [employer]: Concepción De La Torre MD MCHC (RBC) [Mass/Vol] 31.4 g/dL Normal 28.4-34.[address] [facility] Comment on above: Performed By: #### C DP, CMPF #### [address] [place], [facility]83 [employer]: Concepción De La Torre MD MCV (RBC) [Entitic vol] 100.0 fL Normal 82.6-102.9 [facility] Comment on above: Performed By: #### C DP, CMPF #### [address] [place], [place] [phone] [employer]: Concepción De La Torre MD Monocytes (Bld) [#/Vol] 0.49 10*3/uL Normal 0.10-1.20 [facility] Comment on above: Performed By: #### C DP, CMPF #### [facility] [address] [place] [address] [employer]: Concepción De La Torre MD Monocytes/100 WBC (Bld) 14 % High 3-12 [facility] Comment on above: Performed By: #### C DP, CMPF #### [facility] [address] [place], [place] [phone] [employer]: Concepción De La Torre MD Neutrophil (Seg) 61 % Normal 36-65 [facility] Comment on above: Performed By: #### C DP, CMPF #### [facility] [address] [place] [address] [employer]: Concepción De La Torre MD NRBC Automated 0.0 per 100 WBC Normal 0.0 [facility] Comment on above: Performed By: #### C DP, CMPF #### [facility] [address] [place] [address] [employer]: Concepción De La Torre MD Platelet mean volume (Bld) [Entitic vol] 11.5 fL Normal 8.1-13.5 [facility] Comment on above: Performed By: #### C DP, CMPF #### [address] [place] [address] [employer]: Concepción De La Torre MD Platelets (Bld) [#/Vol] 271 10*3/uL Normal 138-453 [facility] Comment on above: Performed By: #### C DP, CMPF #### [address] [place], [place] [phone] [employer]: Concepción De La Torre MD RBC (Bld) [#/Vol] 3.09 10*6/uL Low 3.95-5.11 [facility] Comment on above: Performed By: #### C DP, CMPF #### [address] [place] [address] [employer]: Concepción De La Torre MD WBC (Bld) [#/Vol] 3.5 10*3/uL Normal 3.5-11.3 [facility] Comment on above: Performed By: #### C DP, CMPF #### [facility] [address] [place] [address] [employer]: Concepción De La Torre MD Comp Metabol,Fastingon 01-25 Albumin [Mass/Vol] 2.6 g/dL Low 3.5-5.2 [facility] Comment on above: Performed By: #### C DP, CMPF #### [facility] [address] [place], [place] [phone] [employer]: Concepción De La Torre MD Albumin/Glob Ratio 1.1 Normal 1.0-2.5 [facility] Comment on above: Performed By: #### C DP, CMPF #### [facility] [address] [place], [place] [phone] [employer]: Concepción De La Torre MD Alkaline Phos 92 U/L Normal 35-104 [facility] Comment on above: Performed By: #### C DP, CMPF #### [facility] [address] [place], [place] [phone] [employer]: Concepción De La Torre MD ALT [Catalytic activity/Vol] 18 U/L Normal 5-33 [facility] Comment on above: Performed By: #### C DP, CMPF #### [facility] [address] [place] [address] Dr. [place], [place] [phone] [employer]: Concepción De La Torre MD Anion gap [Moles/Vol] 8 mmol/L Low 9-[address] [facility] Comment on above: Performed By: #### C DP, CMPF #### [facility] [address] [place] [address] Dr. [place], [place] [phone] [employer]: Concepción De La Torre MD AST [Catalytic activity/Vol] 23 U/L Normal <32 [facility] Comment on above: Performed By: #### C DP, CMPF #### [facility] [address] [place] [address] Dr. [place], [place] [phone] [employer]: Concepción De La Torre MD Bilirubin [Mass/Vol] 0.5 mg/dL Normal 0.3-1.2 [facility] Comment on above: Performed By: #### C DP, CMPF #### [facility] [address] [place] [address] [place] [address] [employer]: Concepción De La Torre MD BUN/CRE Ratio 19 Normal 9-20 [facility] Comment on above: Performed By: #### C DP, CMPF #### [facility] [address] [place], [place] [phone] [employer]: Concepción De La Torre MD Calcium [Mass/Vol] 7.9 mg/dL Low 8.6-10.4 [facility] Comment on above: Performed By: #### C DP, CMPF #### [facility] [address] [place], [place] [phone] [employer]: Concepción De La Torre MD Chloride [Moles/Vol] 105 mmol/L Normal 98-107 [facility] Comment on above: Performed By: #### C DP, CMPF #### [facility] [address] [place], [place] [phone] [employer]: Concepción De La Torre MD CO2 [Moles/Vol] 27 mmol/L Normal 20-31 [facility] Comment on above: Performed By: #### C DP, CMPF #### [facility] [address] [place], [place] [phone] [employer]: Concepción De La Torre MD Creatinine [Mass/Vol] 0.8 mg/dL Normal 0.5-0.[address] [facility] Comment on above: Performed By: #### C DP, CMPF #### [facility] [address] [place] [address] [employer]: Concepción De La Torre MD GFR/1.73 sq M.predicted among non-blacks MDRD (S/P/Bld) [Vol rate/Area] 73 mL/min/{1.73_m2} Normal >60 [facility] Comment on above: Result Comment: These [...] tubular secretion. Performed By: #### C SCHUYLER, CMPF #### [facility] [address] [place] [address] Dr. [place], [place] [phone] [employer]: Concepción De La Torre MD Glucose [Mass/Vol] 90 mg/dL Normal 70-99 [facility] Comment on above: Performed By: #### C DP, CMPF #### [facility] [address] [place] [address] [employer]: Concepción De La Torre MD Potassium [Moles/Vol] 4.1 mmol/L Normal 3.7-5.[address] [facility] Comment on above: Performed By: #### C SCHUYLER, CMPF #### [address] [place] [address] [employer]: Concepción De La Torre MD Protein [Mass/Vol] 5.0 g/dL Low 6.4-8.3 [facility] Comment on above: Performed By: #### C SCHUYLER, CMPF #### [address] [place] [address] [employer]: Concepción De La Torre MD Sodium [Moles/Vol] 140 mmol/L Normal 135-144 [facility] Comment on above: Performed By: #### C DP, CMPF #### [facility] [address] [place] [address] [place] [address] [employer]: Concepción De La Torre MD Urea nitrogen [Mass/Vol] 15 mg/dL Normal 8-23 [facility] Comment on above: Performed By: #### C DP, CMPF #### [address] [place], [place] [phone] [employer]: Concepción De La Torre MD CBC with Diffon 01-19-2024 Abs. Basophil 0.03 k/uL Normal 0.00-0.20 [facility] Comment on above: Performed By: #### C DP, CP #### [address] [place] [address] [employer]: Concepción De La Torre MD Abs.Imm.Granulocyte 0.05 k/uL Normal 0.00-0.30 [facility] Comment on above: Performed By: #### C DP, CP #### [address] [place] [address] [employer]: Concepción De La Torre MD Abs.Neutrophil (Seg) 5.33 k/uL Normal 1.50-8.10 [facility] Comment on above: Performed By: #### C DP, CP #### [address] [place] [address] [employer]: Concepción De La Torre MD Basophils/100 WBC (Bld) 0 % Normal 0-2 [facility] Comment on above: Performed By: #### C DP, CP #### [address] [place] [address] [employer]: Concepción De La Torre MD Eosinophils (Bld) [#/Vol] 0.07 10*3/uL Normal 0.00-0.44 [facility] Comment on above: Performed By: #### C DP, CP #### [address] [place], [place] [address] [employer]: Concepción De La Torre MD Eosinophils/100 WBC (Bld) 1 % Normal 1-4 [facility] Comment on above: Performed By: #### C DP, CP #### [address] [place] [address] [employer]: Concepción De La Torre MD Erythrocyte distribution width (RBC) [Ratio] 16.6 % High 11.8-14.4 [facility] Comment on above: Performed By: #### C DP, CP #### [place] [address] [place], [place] [phone] [employer]: Concepción De La Torre MD Hematocrit (Bld) [Volume fraction] 30.7 % Low 36.3-47.1 [facility] Comment on above: Performed By: #### C DP, CP #### [facility] [address] [place], [facility]83 [employer]: Concepción De La Torre MD Hemoglobin (Bld) [Mass/Vol] 9.7 g/dL Low 11.9-15.1 [facility] Comment on above: Performed By: #### C DP, CP #### [address] [place], [facility]83 [employer]: Concepción De La Torre MD Immature granulocytes/100 WBC (Bld) 1 % High 0 [facility] Comment on above: Performed By: #### C DP, CP #### [facility] [address] [place] [address] Dr. [place], [facility]83 [employer]: Concepción De La Torre MD Lymphocytes (Bld) [#/Vol] 1.11 10*3/uL Normal 1.10-3.70 [facility] Comment on above: Performed By: #### C DP, CP #### [address] [place], [facility]83 [employer]: Concepción De La Torre MD Lymphocytes/100 WBC (Bld) 15 % Low 24-43 [facility] Comment on above: Performed By: #### C DP, CP #### [facility] [address] [place], [facility]83 [employer]: Concepción De La Torre MD MCH (RBC) [Entitic mass] 31.1 pg Normal 25.2-33.5 [facility] Comment on above: Performed By: #### C DP, CP #### [facility] [address] [place] [address] Dr. [place], [facility]83 [employer]: Concepción De La Torre MD MCHC (RBC) [Mass/Vol] 31.6 g/dL Normal 28.4-34.[address] [facility] [address] [facility] Comment on above: Performed By: #### C DP, CP #### [facility] [address] [place], [place] [id number] [employer]: Concepción De La Torre MD MCV (RBC) [Entitic vol] 98.4 fL Normal 82.6-102.9 [facility] Comment on above: Performed By: #### C DP, CP #### [address] [place] [address] [employer]: Concepción De La Torre MD Monocytes (Bld) [#/Vol] 0.95 10*3/uL Normal 0.10-1.20 [facility] Comment on above: Performed By: #### C DP, CP #### [address] [place] [address] [employer]: Concepción De La Torre MD Monocytes/100 WBC (Bld) 13 % High 3-12 [facility] Comment on above: Performed By: #### C DP, CP #### [address] [place] [address] [employer]: Concepción De La Torre MD Neutrophil (Seg) 71 % High 36-65 [facility] Comment on above: Performed By: #### C DP, CP #### [address] [place], [place] [phone] [employer]: Concepción De La Torre MD NRBC Automated 0.0 per 100 WBC Normal 0.0 [facility] Comment on above: Performed By: #### C DP, CP #### [address] [place], [place] [phone] [employer]: Concepción De La Torre MD Platelet mean volume (Bld) [Entitic vol] 11.9 fL Normal 8.1-13.5 [facility] Comment on above: Performed By: #### C DP, CP #### [facility] [address] [place], [place] [phone] [employer]: Concepción De La Torre MD Platelets (Bld) [#/Vol] 249 10*3/uL Normal 138-453 [facility] Comment on above: Performed By: #### C DP, CP #### [facility] [address] [place] [address] [employer]: Concepción DeL a Torre MD RBC (Bld) [#/Vol] 3.12 10*6/uL Low 3.95-5.11 [facility] Comment on above: Performed By: #### C DP, CP #### [facility] [address] [place], [place] [phone] [employer]: Concepción De La Torre MD WBC (Bld) [#/Vol] 7.5 10*3/uL Normal 3.5-11.3 [facility] Comment on above: Performed By: #### C DP, CP #### [facility] [address] [place], [place] [phone] [employer]: Concepción De La Torre MD Comp Metabolic Profon 2023 Albumin [Mass/Vol] 2.6 g/dL Low 3.5-5.2 [facility] Comment on above: Performed By: #### C DP, CP #### [facility] [address] [place], [place] [phone] [employer]: Concepción De La Torre MD Albumin/Glob Ratio 1.2 Normal 1.0-2.5 [facility] Comment on above: Performed By: #### C DP, CP #### [facility] [address] [place] [address] [employer]: Concepción De La Torre MD Alkaline Phos 78 U/L Normal 35-104 [facility] Comment on above: Performed By: #### C DP, CP #### [facility] [address] [place], [place] [phone] [employer]: Concepción De La Torre MD ALT [Catalytic activity/Vol] 42 U/L High 5-33 [facility] Comment on above: Performed By: #### C DP, CP #### [facility] [address] [place], [place] [phone] [employer]: Concepción De La Torre MD Anion gap [Moles/Vol] 5 mmol/L Low 9-[address] [facility] Comment on above: Performed By: #### C DP, CP #### [facility] [address] [place], [place] [phone] [employer]: Concepción De La Torre MD AST [Catalytic activity/Vol] 43 U/L High <32 [facility] Comment on above: Performed By: #### C DP, CP #### [facility] [address] [place], [place] [phone] [employer]: Concepción De La Torre MD Bilirubin [Mass/Vol] 1.2 mg/dL Normal 0.3-1.2 [facility] Comment on above: Performed By: #### C DP, CP #### [facility] [address] [place], [place] [phone] [employer]: Concepción De La Torre MD BUN/CRE Ratio 27 High 9-20 [facility] Comment on above: Performed By: #### C DP, CP #### [facility] [address] [place], [place] [phone] [employer]: Concepción De La Torre MD Calcium [Mass/Vol] 7.6 mg/dL Low 8.6-10.4 [facility] Comment on above: Performed By: #### C DP, CP #### [facility] [address] [place], [place] [phone] [employer]: Concepción De La Torre MD Chloride [Moles/Vol] 100 mmol/L Normal 98-107 [facility] Comment on above: Performed By: #### C DP, CP #### [facility] [address] [place] [address] [employer]: Concepción De La Torre MD CO2 [Moles/Vol] 30 mmol/L Normal 20-31 [facility] Comment on above: Performed By: #### C DP, CP #### [facility] [address] [place] [address] [employer]: Concepción De La Torre MD Creatinine [Mass/Vol] 0.7 mg/dL Normal 0.5-0.[address] [facility] Comment on above: Performed By: #### C DP, CP #### [facility] [address] [place] [address] [employer]: Concepción De La Torre MD GFR/1.73 sq M.predicted among non-blacks MDRD (S/P/Bld) [Vol rate/Area] 85 mL/min/{1.73_m2} Normal >60 [facility] Comment on above: Result Comment: These [...] Performed By: #### C DP, CP #### [facility] [address] [place] [address] [employer]: Concepción De La Torre MD Glucose [Mass/Vol] 98 mg/dL Normal 70-99 [facility] Comment on above: Performed By: #### C DP, CP #### [facility] [address] [place] [address] [employer]: Concepción De La Torre MD Potassium [Moles/Vol] 3.8 mmol/L Normal 3.7-5.[address] [facility] Comment on above: Performed By: #### C DP, CP #### [facility] [address] [place] [address] [employer]: Concepción De La Torre MD Protein [Mass/Vol] 4.8 g/dL Low 6.4-8.3 [facility] Comment on above: Performed By: #### C DP, CP #### [facility] [address] [place] [address] [employer]: Concepción De La Torre MD Sodium [Moles/Vol] 135 mmol/L Normal 135-144 [facility] Comment on above: Performed By: #### C DP, CP #### [facility] [address] [place] [address] [employer]: Concepción De La Torre MD Urea nitrogen [Mass/Vol] 19 mg/dL Normal 8-23 [facility] Comment on above: Performed By: #### C DP, CP #### [facility] [address] [place] [address] [employer]: Concepción De La Torre MD CBC with Auto Differentialon 01-15-2024 Basophils (Bld) [#/Vol] 0.03 10*3/uL [facility] Basophils/100 WBC (Bld) 0 % 0 - 2 % [facility] Eosinophils (Bld) [#/Vol] 0.05 10*3/uL [facility] Eosinophils/100 WBC (Bld) 0 % Low 1 - 4 % [facility] Erythrocyte distribution width (RBC) [Ratio] 15.9 % High 11.8 - 14.4 % [facility] Hematocrit (Bld) [Volume fraction] 31.7 % Low 36.3 - 47.1 % [facility] Hemoglobin (Bld) [Mass/Vol] 10.3 g/dL Low 11.9 - 15.1 g/dL [facility] Immature granulocytes (Bld) [#/Vol] 0.09 10*3/uL [facility] Immature granulocytes/100 WBC (Bld) 1 % High 0 [facility] Interpretation and review of laboratory results Abnormal [facility] Lymphocytes/100 WBC (Bld) 7 % Low 24 - 43 % [facility] Lymphocytes/100 WBC (Bld) 0.83 % Low [facility] MCH (RBC) [Entitic mass] 31.1 pg 25.2 - 33.5 pg [facility] MCHC (RBC) [Mass/Vol] 32.5 g/dL 28.4 - 34.8 g/dL [facility] MCV (RBC) [Entitic vol] 95.8 fL 82.6 - 102.9 fL [facility] Monocytes/100 WBC (Bld) 11 % 3 - 12 % [facility] Monocytes/100 WBC (Bld) 1.30 % High [facility] Neutrophils/100 WBC (Bld) 81 % High 36 - 65 % [facility] Nucleated RBC/100 WBC (Bld) [Ratio] 0.0 % 0.0 per 100 WBC [facility] Platelet mean volume (Bld) [Entitic vol] 11.8 fL 8.1 - 13.5 fL [facility] Platelets (Bld) [#/Vol] 176 10*3/uL [facility] RBC (Bld) [#/Vol] 3.31 10*6/uL Low 3.95 - 5.1 1 m/uL [facility] Segmented neutrophils/100 WBC (Bld) 9.73 % High [facility] WBC other (Bld) [#/Vol] 12.0 High [facility] CBC with Diffon 01-15-2024 Abs. Basophil 0.03 k/uL Normal 0.00-0.20 [facility] Comment on above: Performed By: #### C SCHUYLER, CP #### [facility] [address] [place] [address] [employer]: Concepción De La Torre MD Abs.Imm.Granulocyte 0.09 k/uL Normal 0.00-0.30 [facility] Comment on above: Performed By: #### C SCHUYLER, CP #### [facility] [address] [place], [place] [phone] [employer]: Concepción De La Torre MD Abs.Neutrophil (Seg) 9.73 k/uL High 1.50-8.10 [facility] Comment on above: Performed By: #### C DP, CP #### [address] [place], [facility]83 [employer]: Concepción De La Torre MD Basophils/100 WBC (Bld) 0 % Normal 0-2 [facility] Comment on above: Performed By: #### C DP, CP #### [address] [place] [address] [employer]: Concepción De La Torre MD Eosinophils (Bld) [#/Vol] 0.05 10*3/uL Normal 0.00-0.44 [facility] Comment on above: Performed By: #### C DP, CP #### [address] [place], [facility]83 [employer]: Concepción De La Torre MD Eosinophils/100 WBC (Bld) 0 % Low 1-4 [facility] Comment on above: Performed By: #### C DP, CP #### [address] [place], [facility]83 [employer]: Concepción De La Torre MD Erythrocyte distribution width (RBC) [Ratio] 15.9 % High 11.8-14.4 [facility] Comment on above: Performed By: #### C DP, CP #### [address] [place], [facility]83 [employer]: Concepción De La Torre MD Hematocrit (Bld) [Volume fraction] 31.7 % Low 36.3-47.1 [facility] Comment on above: Performed By: #### C DP, CP #### [address] [place], [facility]83 [employer]: Concecpión De La Torre MD Hemoglobin (Bld) [Mass/Vol] 10.3 g/dL Low 11.9-15.1 [facility] Comment on above: Performed By: #### C DP, CP #### [address] [place] [address] [employer]: Concepción De La Torre MD Immature granulocytes/100 WBC (Bld) 1 % High 0 [facility] Comment on above: Performed By: #### C DP, CP #### [facility] [address] [place] [address] Dr[address] [place], [place] [phone] [employer]: Concepción De La Torre MD Lymphocytes (Bld) [#/Vol] 0.83 10*3/uL Low 1.10-3.70 [facility] Comment on above: Performed By: #### C DP, CP #### [address] [place], [facility]83 [employer]: Concepción De La Torre MD Lymphocytes/100 WBC (Bld) 7 % Low 24-43 [facility] Comment on above: Performed By: #### C DP, CP #### [address] [place], [place] [phone] [employer]: Concepción De La Torre MD MCH (RBC) [Entitic mass] 31.1 pg Normal 25.2-33.5 [facility] Comment on above: Performed By: #### C DP, CP #### [address] [place], [place] [phone] [employer]: Concepción De La Torre MD MCHC (RBC) [Mass/Vol] 32.5 g/dL Normal 28.4-34.[address] [facility] Comment on above: Performed By: #### C DP, CP #### [address] [place] [address] [employer]: Concepción De La Torre MD MCV (RBC) [Entitic vol] 95.8 fL Normal 82.6-102.9 [facility] Comment on above: Performed By: #### C DP, CP #### [facility] [address] [place], [place] [phone] [employer]: Concepción De La Torre MD Monocytes (Bld) [#/Vol] 1.30 10*3/uL High 0.10-1.20 [facility] Comment on above: Performed By: #### C DP, CP #### [facility] [address] [place], [place] [phone] [employer]: Concepción De La Torre MD Monocytes/100 WBC (Bld) 11 % Normal 3-12 [facility] Comment on above: Performed By: #### C DP, CP #### [address] [place], [facility]83 [employer]: Concepción De La Torre MD Neutrophil (Seg) 81 % High 36-65 [facility] Comment on above: Performed By: #### C DP, CP #### [address] [place], [place] [phone] [employer]: Concepción De La Torre MD NRBC Automated 0.0 per 100 WBC Normal 0.0 [facility] Comment on above: Performed By: #### C DP, CP #### [address] [place], [facility]83 [employer]: Concepción De La Torre MD Platelet mean volume (Bld) [Entitic vol] 11.8 fL Normal 8.1-13.5 [facility] Comment on above: Performed By: #### C DP, CP #### [address] [place], [place] [phone] [employer]: Concepción De La Torre MD Platelets (Bld) [#/Vol] 176 10*3/uL Normal 138-453 [facility] Comment on above: Performed By: #### C DP, CP #### [address] [place], [place] [phone] [employer]: Concepción De La Torre MD RBC (Bld) [#/Vol] 3.31 10*6/uL Low 3.95-5.11 [facility] Comment on above: Performed By: #### C DP, CP #### [facility] [address] [place], [place] [phone] [employer]: Concepción De La Torre MD WBC (Bld) [#/Vol] 12.0 10*3/uL High 3.5-11.3 [facility] Comment on above: Performed By: #### C DP, CP #### [address] [place] [address] [employer]: Concepción De La Torre MD Comp Metabolic Profon 2023 Albumin [Mass/Vol] 2.8 g/dL Low 3.5-5.2 [facility] Comment on above: Performed By: #### C DP, CP #### [facility] [address] [place] [address] Dr. [place], [place] [phone] [employer]: Concepicón De La Torre MD Albumin/Glob Ratio 1.2 Normal 1.0-2.5 [facility] Comment on above: Performed By: #### C DP, CP #### [address] [place], [place] [phone] [employer]: Concepción De La Torre MD Alkaline Phos 74 U/L Normal 35-104 [facility] Comment on above: Performed By: #### C DP, CP #### [facility] [address] [place], [place] [phone] [employer]: Concepción De La Torre MD ALT [Catalytic activity/Vol] 22 U/L Normal 5-33 [facility] Comment on above: Performed By: #### C DP, CP #### [facility] [address] [place], [place] [phone] [employer]: Concepción De La Torre MD Anion gap [Moles/Vol] 10 mmol/L Normal 9-[address] [facility] Comment on above: Performed By: #### C DP, CP #### [facility] [address] [place], [place] [phone] [employer]: Concepción De La Torre MD AST [Catalytic activity/Vol] 36 U/L High <32 [facility] Comment on above: Performed By: #### C DP, CP #### [facility] [address] [place], [place] [phone] [employer]: Concepción De La Torre MD Bilirubin [Mass/Vol] 1.3 mg/dL High 0.3-1.2 [facility] Comment on above: Performed By: #### C DP, CP #### [facility] [address] [place], [place] [phone] [employer]: Concepción De La Torre MD BUN/CRE Ratio 34 High 9-20 [facility] Comment on above: Performed By: #### C DP, CP #### [address] [place], [place] [phone] [employer]: Concepción De La Torre MD Calcium [Mass/Vol] 8.2 mg/dL Low 8.6-10.4 [facility] Comment on above: Performed By: #### C DP, CP #### [facility] [address] [place], [place] [phone] [employer]: Concepción De La Torre MD Chloride [Moles/Vol] 101 mmol/L Normal 98-107 [facility] Comment on above: Performed By: #### C DP, CP #### [facility] [address] [place] [address] [employer]: Concepción De La Torre MD CO2 [Moles/Vol] 26 mmol/L Normal 20-31 [facility] Comment on above: Performed By: #### C DP, CP #### [facility] [address] [place] [address] [place] [address] [employer]: Concepción De La Torre MD Creatinine [Mass/Vol] 0.8 mg/dL Normal 0.5-0.[address] [facility] Comment on above: Performed By: #### C DP, CP #### [address] [place] [address] [employer]: Concepción De La Torre MD GFR/1.73 sq M.predicted among non-blacks MDRD (S/P/Bld) [Vol rate/Area] 73 mL/min/{1.73_m2} Normal >60 [facility] Comment on above: Result Comment: These [...] Performed By: #### C DP, CP #### [address] [place] [address] [employer]: Concepción De La Torre MD Glucose [Mass/Vol] 101 mg/dL High 70-99 [facility] Comment on above: Performed By: #### C DP, CP #### [address] [place] [address] [employer]: Concepción De La Torre MD Potassium [Moles/Vol] 4.6 mmol/L Normal 3.7-5.[address] [facility] Comment on above: Performed By: #### C DP, CP #### [address] [place] [address] [employer]: Concepción De La Torre MD Protein [Mass/Vol] 5.2 g/dL Low 6.4-8.3 [facility] Comment on above: Performed By: #### C DP, CP #### [facility] [address] [place], [place] [phone] [employer]: Concepción De La Torre MD Sodium [Moles/Vol] 137 mmol/L Normal 135-144 [facility] Comment on above: Performed By: #### C DP, CP #### [facility] [address] [place], [place] [phone] [employer]: Concepción De La Torre MD Urea nitrogen [Mass/Vol] 27 mg/dL High 8-23 [facility] Comment on above: Performed By: #### C DP, CP #### [facility] [address] [place] [address] [employer]: Concepción De La Torre MD Comprehensive Metabolic Pane [facility] 01-15-2024 Albumin [Mass/Vol] 2.8 g/dL Low 3.5 - 5.2 g/dL [facility] Albumin/Globulin [Mass ratio] 1.2 {ratio} 1.0 - 2.5 [facility] ALP [Catalytic activity/Vol] 74 U/L 35 - 104 U/L [facility] ALT [Catalytic activity/Vol] 22 U/L 5 - 33 U/L [facility] Anion gap [Moles/Vol] 10 mmol/L 9 - 17 mmol/L [facility] AST [Catalytic activity/Vol] 36 U/L High NINF - 32 U/L [facility] Bilirubin [Mass/Vol] 1.3 mg/dL High 0.3 - 1 .2 mg/dL [facility] Calcium [Mass/Vol] 8.2 mg/dL Low 8.6 - 10. 4 mg/dL [facility] Chloride [Moles/Vol] 101 mmol/L 98 - 10 7 mmol/L [facility] CO2 [Moles/Vol] 26 mmol/L 20 - 31 mmol/L [facility] Creatinine [Mass/Vol] 0.8 mg/dL 0.5 - 0.9 mg/dL [facility] Est, Glom Filt Rate 73 - PINF [facility] Comment on above: These results are [...] 101 mg/dL High 70 - 99 mg/dL [facility] Interpretation and review of laboratory results Abnormal [facility] Potassium [Moles/Vol] 4.6 mmol/L 3.7 - 5.3 mmol/L [facility] Protein [Mass/Vol] 5.2 g/dL Low 6.4 - 8.3 g/dL [facility] Sodium [Moles/Vol] 137 mmol/L 135 - 144 mmol/L [facility] Urea nitrogen [Mass/Vol] 27 mg/dL High 8 - 23 mg/dL [facility] Urea nitrogen/Creatinine [Mass ratio] 34 mg/mg High 9 - 20 [facility] PTon 01-13-2024 INR Coag (PPP) [Relative time] 1.3 {INR} Normal [facility] Comment on above: Result Comment: Therapeutic Range: Moderate Anticoagulant Intensity: INR = 2.0-3.0 High Anticoagulant Intensity: INR = 2.5-3.5 Performed By: #### P T ####[id number] [place], [place] [id number] Lab Director: Sarath Olivera MD PT Coag (PPP) [Time] 15.6 s High 11.7-14.9 [facility] Comment on above: Performed By: #### P T ####[employer] [id number] [place], [place] [id number] Lab Director: Sarath Olivera MD Basic Metab w/rfx MGon 01-11 Anion gap [Moles/Vol] 9 mmol/L Normal 9-16 [facility] Comment on above: Performed By: #### B C #### [address] [address] [employer]: Sarath Olivera MD Calcium [Mass/Vol] 8.3 mg/dL Low 8.6-10.4 [facility] Comment on above: Performed By: #### B C #### [address] [address] [employer]: Sarath Olivera MD Chloride [Moles/Vol] 103 mmol/L Normal 98-107 [facility] Comment on above: Performed By: #### B C #### [address] [address] [employer]: Sarath Olivera MD CO2 [Moles/Vol] 25 mmol/L Normal 20-31 [facility] Comment on above: Performed By: #### B C #### [address] [address] [employer]: Sarath Olivera MD Creatinine [Mass/Vol] 0.8 mg/dL Normal 0.50-0.90 [facility] Comment on above: Performed By: #### B C #### [address] [address] [employer]: Sarath Olivera MD GFR/1.73 sq M.predicted among non-blacks MDRD (S/P/Bld) [Vol rate/Area] 78 mL/min/{1.73_m2} Normal >60 [facility] Comment on above: Result Comment: These results [...] secretion. Performed By: #### B C #### [address] [address] [employer]: Sarath Olivera MD Glucose [Mass/Vol] 92 mg/dL Normal 74-99 [facility] Comment on above: Performed By: #### B C #### [address] [address] [employer]: Sarath Olivera MD Potassium [Moles/Vol] 4.5 mmol/L Normal 3.7-5.3 [facility] Comment on above: Performed By: #### B C #### [address] [address] [employer]: Sarath Olivera MD Sodium [Moles/Vol] 137 mmol/L Normal 136-145 [facility] Comment on above: Performed By: #### B C #### [address] [address] [employer]: Sarath Olivera MD Urea nitrogen [Mass/Vol] 28 mg/dL High 8-23 [facility] Comment on above: Performed By: #### B C #### [address] [address] [employer]: Sarath Olivera MD CBC with Diffon 01-12-2024 Abs. Basophil 0.03 k/uL Normal 0.00-0.20 [facility] Comment on above: Performed By: #### B C #### [address] [address] [employer]: Sarath Olivera MD Abs.Imm.Granulocyte 0.24 k/uL Normal 0.00-0.30 [facility] Comment on above: Performed By: #### B C #### [address] [address] [employer]: Sarath Olivrea MD Abs.Neutrophil (Seg) 6.54 k/uL Normal 1.50-8.10 [facility] Comment on above: Performed By: #### B C #### [address] [address] [employer]: Sarath Olivera MD Basophils/100 WBC (Bld) 0 % Normal 0-2 [facility] Comment on above: Performed By: #### B C #### [address] [address] [employer]: Sarath Olivera MD Eosinophils (Bld) [#/Vol] 0.19 10*3/uL Normal 0.00-0.44 [facility] Comment on above: Performed By: #### B C #### [address] [address] [employer]: Sarath Olivera MD Eosinophils/100 WBC (Bld) 2 % Normal 1-4 [facility] Comment on above: Performed By: #### B C #### [address] [address] [employer]: Sarath Olivera MD Erythrocyte distribution width (RBC) [Ratio] 15.8 % High 11.8-14.4 [facility] Comment on above: Performed By: #### B C #### [address] [address] [employer]: Sarath Olivera MD Hematocrit (Bld) [Volume fraction] 29.8 % Low 36.3-47.1 [facility] Comment on above: Performed By: #### B C #### [address] [address] [employer]: Sarath Olivera MD Hemoglobin (Bld) [Mass/Vol] 9.3 g/dL Low 11.9-15.1 [facility] Comment on above: Performed By: #### B C #### [address] [address] [employer]: Sarath Olivera MD Immature granulocytes/100 WBC (Bld) 3 % High 0 [facility] Comment on above: Performed By: #### B C #### [address] [address] [employer]: Sarath Olivera MD Lymphocytes (Bld) [#/Vol] 1.23 10*3/uL Normal 1.10-3.70 [facility] Comment on above: Performed By: #### B C #### [address] [address] [employer]: Sarath Olivera MD Lymphocytes/100 WBC (Bld) 13 % Low 24-43 [facility] Comment on above: Performed By: #### B C #### [place] [address] [employer]: Sarath Olivera MD MCH (RBC) [Entitic mass] 30.9 pg Normal 25.2-33.5 [facility] Comment on above: Performed By: #### B C #### [address] [address] [employer]: Sarath Olivera MD MCHC (RBC) [Mass/Vol] 31.2 g/dL Normal 28.4-34.8 [facility] Comment on above: Performed By: #### B C #### [place] [address] [employer]: Sarath Olivera MD MCV (RBC) [Entitic vol] 99.0 fL Normal 82.6-102.9 [facility] Comment on above: Performed By: #### B C #### [place] [address] [employer]: Sarath Olivera MD Monocytes (Bld) [#/Vol] 1.19 10*3/uL Normal 0.10-1.20 [facility] Comment on above: Performed By: #### B C #### [address] [address] [employer]: Sarath Olivera MD Monocytes/100 WBC (Bld) 13 % High 3-12 [facility] Comment on above: Performed By: #### B C #### [address] [address] [employer]: Sarath Olivera MD Neutrophil (Seg) 69 % High 36-65 [facility] Comment on above: Performed By: #### B C #### [address] [address] [employer]: Sarath Olivera MD NRBC Automated 0.5 per 100 WBC High 0.0 [facility] Comment on above: Performed By: #### B C #### [address] [address] [employer]: Sarath Olivera MD Platelet mean volume (Bld) [Entitic vol] 12.4 fL Normal 8.1-13.5 [facility] Comment on above: Performed By: #### B C #### [address] [address] [employer]: Sarath Olivera MD Platelets (Bld) [#/Vol] 140 10*3/uL Normal 138-453 [facility] Comment on above: Performed By: #### B C #### [address] [address] [employer]: Sarath Olivera MD RBC (Bld) [#/Vol] 3.01 10*6/uL Low 3.95-5.11 [facility] Comment on above: Performed By: #### B C #### [address] [address] [employer]: Sarath Olivera MD RBC morphology finding Nom (Bld) ANISOCYTOSIS PRESENT Normal [facility] Comment on above: Performed By: #### B C #### [address] [address] [employer]: Sarath Olivera MD WBC (Bld) [#/Vol] 9.4 10*3/uL Normal 3.5-11.3 [facility] Comment on above: Performed By: #### B C #### [address] [address] [employer]: Sarath Olivera MD PTon 01-12-2024 INR Coag (PPP) [Relative time] 1.2 {INR} Normal [facility] Comment on above: Result Comment: Therapeutic Range: Moderate Anticoagulant Intensity: INR = 2.0-3.0 High Anticoagulant Intensity: INR = 2.5-3.5 Performed By: #### B C #### [address] [address] [employer]: Sarath Olivera MD PT Coag (PPP) [Time] 14.6 s Normal 11.7-14.9 [facility] Comment on above: Performed By: #### B C #### [address] [address] [employer]: Sarath Olivera MD XR CHEST PORTABLEon 01-12-20 [...] Deon Webb MD 01/12/24 Final result Normal [facility] Basic Metab w/rfx MGon 01-10 Anion gap [Moles/Vol] 7 mmol/L Low 9-16 [facility] Comment on above: Performed By: #### L ACTIC ALCB #### [address] [address] [employer]: Sarath Olivera MD Calcium [Mass/Vol] 8.0 mg/dL Low 8.6-10.4 [facility] Comment on above: Performed By: #### L ACTIC ALCB #### [facility] [employer] [address] [place] [address] [employer]: Sarath Olivera MD Chloride [Moles/Vol] 104 mmol/L Normal 98-107 [facility] Comment on above: Performed By: #### L ACTIC ALCB #### [facility] [employer] [address] [place] [address] [employer]: Sarath Olivera MD CO2 [Moles/Vol] 24 mmol/L Normal 20-31 [facility] Comment on above: Performed By: #### L ACTIC ALCB #### [facility] [employer] [address] [place] [address] [employer]: Sarath Olivera MD Creatinine [Mass/Vol] 0.8 mg/dL Normal 0.50-0.90 [facility] Comment on above: Performed By: #### L ACTMARILIN ALCB #### [facility] [employer] [address] [place] [address] [employer]: Sarath Olivera MD GFR/1.73 sq M.predicted among non-blacks MDRD (S/P/Bld) [Vol rate/Area] 70 mL/min/{1.73_m2} Normal >60 [facility] Comment on above: Result Comment: These results [...] renal tubular secretion. Performed By: #### L MARY ALCB #### [facility] [employer] [address] [place] [address] [employer]: Sarath Olivera MD Glucose [Mass/Vol] 106 mg/dL High 74-99 [facility] Comment on above: Performed By: #### L MARY ALCB #### [facility] [employer] [address] [place] [address] [employer]: Sarath Olivera MD Potassium [Moles/Vol] 4.7 mmol/L Normal 3.7-5.3 [facility] Comment on above: Performed By: #### L MARY ALCB #### [address] [address] [employer]: Sarath Olivera MD Sodium [Moles/Vol] 135 mmol/L Low 136-145 [facility] Comment on above: Performed By: #### L MARY ALCB #### [facility] [employer] [address] [place] [address] [employer]: Sarath Olivera MD Urea nitrogen [Mass/Vol] 28 mg/dL High 8-23 [facility] Comment on above: Performed By: #### L MARY ALCB #### [facility] [employer] [address] [place] [address] [employer]: Sarath Olivera MD CBC with Diffon 01-10-2023 Abs. Basophil <0.03 Normal 0.00-0.20 [facility] Comment on above: Performed By: #### L MARY ALCB #### [address] [place] [address] [employer]: Sarath Olivera MD Abs.Imm.Granulocyte 0.23 k/uL Normal 0.00-0.30 [facility] Comment on above: Performed By: #### L ACTIC, ALCB #### [facility] [employer] [address] [place] [address] [employer]: Sarath Olivera MD Abs.Neutrophil (Seg) 7.27 k/uL Normal 1.50-8.10 [facility] Comment on above: Performed By: #### L ACTIC, ALCB #### [facility] [employer] [address] [place] [address] [employer]: Sarath Olivera MD Basophils/100 WBC (Bld) 0 % Normal 0-2 [facility] Comment on above: Performed By: #### L ACTIC, ALCB #### [facility] [employer] [address] [place] [address] [employer]: Sarath Olivera MD Eosinophils (Bld) [#/Vol] 0.11 10*3/uL Normal 0.00-0.44 [facility] Comment on above: Performed By: #### L ACTIC, ALCB #### [facility] [employer] [address] [place] [address] [employer]: Sarath Olivera MD Eosinophils/100 WBC (Bld) 1 % Normal 1-4 [facility] Comment on above: Performed By: #### L ACTIC, ALCB #### [facility] [employer] [address] [place] [address] [employer]: Sarath Olivera MD Erythrocyte distribution width (RBC) [Ratio] 15.6 % High 11.8-14.4 [facility] Comment on above: Performed By: #### L ACTIC, ALCB #### [facility] [employer] [address] [place] [address] [employer]: Sarath Olivera MD Hematocrit (Bld) [Volume fraction] 28.4 % Low 36.3-47.1 [facility] Comment on above: Performed By: #### L ACTIC, ALCB #### [facility] [employer] [address] [place] [address] [employer]: Sarath Olivera MD Hemoglobin (Bld) [Mass/Vol] 8.9 g/dL Low 11.9-15.1 [facility] Comment on above: Performed By: #### L ACTIC, ALCB #### [address] [address] [employer]: Sarath Olivera MD Immature granulocytes/100 WBC (Bld) 2 % High 0 [facility] Comment on above: Performed By: #### L ACTIC, ALCB #### [facility] [employer] [address] [place] [address] [employer]: Sarath Olivera MD Lymphocytes (Bld) [#/Vol] 1.31 10*3/uL Normal 1.10-3.70 [facility] Comment on above: Performed By: #### L ACTIC, ALCB #### [facility] [employer] [address] [place] [address] [employer]: Sarath Olivera MD Lymphocytes/100 WBC (Bld) 13 % Low 24-43 [facility] Comment on above: Performed By: #### L ACTIC, ALCB #### [facility] [address] [place] [address] [employer]: Sarath Olivera MD MCH (RBC) [Entitic mass] 30.9 pg Normal 25.2-33.5 [facility] Comment on above: Performed By: #### L ACTIC, ALCB #### [facility] [employer] [address] [place] [address] [employer]: Sarath Olivera MD MCHC (RBC) [Mass/Vol] 31.3 g/dL Normal 28.4-34.8 [facility] Comment on above: Performed By: #### L MARY ALCB #### [address] [address] [employer]: Sarath Olivera MD MCV (RBC) [Entitic vol] 98.6 fL Normal 82.6-102.9 [facility] Comment on above: Performed By: #### L MARY ALCB #### [address] [address] [employer]: Sarath Olivera MD Monocytes (Bld) [#/Vol] 1.42 10*3/uL High 0.10-1.20 [facility] Comment on above: Performed By: #### Abel HERNANDEZ ALCB #### [address] [address] [employer]: Sarath Olivera MD Monocytes/100 WBC (Bld) 14 % High 3-12 [facility] Comment on above: Performed By: #### L MARY ALCB #### [address] [address] [employer]: Sarath Olivera MD Neutrophil (Seg) 70 % High 36-65 [facility] Comment on above: Performed By: #### L MARY ALCB #### [address] [address] [employer]: Sarath Olivera MD NRBC Automated 1.3 per 100 WBC High 0.0 [facility] Comment on above: Performed By: #### L MARY ALCB #### [address] [address] [employer]: Sarath Olivera MD Platelet mean volume (Bld) [Entitic vol] 12.1 fL Normal 8.1-13.5 [facility] Comment on above: Performed By: #### L ACTIC, ALCB #### [address] [address] [employer]: Sarath Olivera MD Platelets (Bld) [#/Vol] 109 10*3/uL Low 138-453 [facility] Comment on above: Performed By: #### L ACTIC, ALCB #### [address] [address] [employer]: Sarath Olivera MD RBC (Bld) [#/Vol] 2.88 10*6/uL Low 3.95-5.11 [facility] Comment on above: Performed By: #### L ACTIC, ALCB #### [address] [address] [employer]: Sarath Olivera MD RBC morphology finding Nom (Bld) ANISOCYTOSIS PRESENT Normal [facility] Comment on above: Performed By: #### L ACTMARILIN, ALCB #### [address] [address] [employer]: Sarath Olivera MD WBC (Bld) [#/Vol] 10.4 10*3/uL Normal 3.5-11.3 [facility] Comment on above: Performed By: #### L ACTMARILIN, ALCB #### [address] [address] [employer]: Sarath Olivera MD Basic Metab w/rfx MGon 01-09 Anion gap [Moles/Vol] 7 mmol/L Low 9-16 [facility] Comment on above: Performed By: #### B C #### [address] [address] [employer]: Sarath Olivera MD Calcium [Mass/Vol] 8.4 mg/dL Low 8.6-10.4 [facility] Comment on above: Performed By: #### B C #### [facility] [employer] [address] [place] [address] [employer]: Sarath Olivera MD Chloride [Moles/Vol] 109 mmol/L High 98-107 [facility] Comment on above: Performed By: #### B C #### [facility] [address] [place] [address] [employer]: Sarath Olivera MD CO2 [Moles/Vol] 25 mmol/L Normal 20-31 [facility] Comment on above: Performed By: #### B C #### [facility] [employer] [address] [place] [address] [employer]: Sarath Olivera MD Creatinine [Mass/Vol] 0.8 mg/dL Normal 0.50-0.90 [facility] Comment on above: Performed By: #### B C #### [address] [address] [employer]: Sarath Olivera MD GFR/1.73 sq M.predicted among non-blacks MDRD (S/P/Bld) [Vol rate/Area] 68 mL/min/{1.73_m2} Normal >60 [facility] Comment on above: Result Comment: These results [...] secretion. Performed By: #### B C #### [facility] [employer] [address] [place] [address] [employer]: Sarath Olivera MD Glucose [Mass/Vol] 96 mg/dL Normal 74-99 [facility] Comment on above: Performed By: #### B C #### [address] [address] [employer]: Sarath Olivera MD Potassium [Moles/Vol] 4.9 mmol/L Normal 3.7-5.3 [facility] Comment on above: Performed By: #### B C #### [address] [address] [employer]: Sarath Olivera MD Sodium [Moles/Vol] 141 mmol/L Normal 136-145 [facility] Comment on above: Performed By: #### B C #### [address] [address] [employer]: Sarath Olivera MD Urea nitrogen [Mass/Vol] 31 mg/dL High 8-23 [facility] Comment on above: Performed By: #### B C #### [address] [address] [employer]: Sarath Olivera MD CBC with Diffon 01-10-2024 Abs. Basophil <0.03 Normal 0.00-0.20 [facility] Comment on above: Performed By: #### B C #### [address] [address] [employer]: Sarath Olivera MD Abs. Eosinophil <0.03 Normal 0.00-0.44 [facility] Comment on above: Performed By: #### B C #### [address] [address] [employer]: Sarath Olivera MD Abs.Imm.Granulocyte 0.12 k/uL Normal 0.00-0.30 [facility] Comment on above: Performed By: #### B C #### [address] [address] [employer]: Sarath Olivera MD Abs.Neutrophil (Seg) 7.01 k/uL Normal 1.50-8.10 [facility] Comment on above: Performed By: #### B C #### [address] [address] [employer]: Sarath Olivera MD Basophils/100 WBC (Bld) 0 % Normal 0-2 [facility] Comment on above: Performed By: #### B C #### [address] [address] [employer]: Sarath Olivera MD Eosinophils/100 WBC (Bld) 0 % Low 1-4 [facility] Comment on above: Performed By: #### B C #### [address] [address] [employer]: Sarath Olivera MD Erythrocyte distribution width (RBC) [Ratio] 15.7 % High 11.8-14.4 [facility] Comment on above: Performed By: #### B C #### [address] [address] [employer]: Sarath Olivera MD Hematocrit (Bld) [Volume fraction] 28.2 % Low 36.3-47.1 [facility] Comment on above: Performed By: #### B C #### [address] [address] [employer]: Sarath Olivera MD Hemoglobin (Bld) [Mass/Vol] 9.0 g/dL Low 11.9-15.1 [facility] Comment on above: Performed By: #### B C #### [address] [address] [employer]: Sarath Olivera MD Immature granulocytes/100 WBC (Bld) 1 % High 0 [facility] Comment on above: Performed By: #### B C #### [address] [address] [employer]: Sarath Olivera MD Lymphocytes (Bld) [#/Vol] 1.46 10*3/uL Normal 1.10-3.70 [facility] Comment on above: Performed By: #### B C #### [address] [address] [employer]: Sarath Olivera MD Lymphocytes/100 WBC (Bld) 15 % Low 24-43 [facility] Comment on above: Performed By: #### B C #### [address] [address] [employer]: Sarath Olivera MD MCH (RBC) [Entitic mass] 30.8 pg Normal 25.2-33.5 [facility] Comment on above: Performed By: #### B C #### [address] [address] [employer]: Sarath Olivera MD MCHC (RBC) [Mass/Vol] 31.9 g/dL Normal 28.4-34.8 [facility] Comment on above: Performed By: #### B C #### [address] [address] [employer]: Sarath Olivera MD MCV (RBC) [Entitic vol] 96.6 fL Normal 82.6-102.9 [facility] Comment on above: Performed By: #### B C #### [address] [address] [employer]: Sarath Olivera MD Monocytes (Bld) [#/Vol] 1.28 10*3/uL High 0.10-1.20 [facility] Comment on above: Performed By: #### B C #### [address] [address] [employer]: Sarath Olivera MD Monocytes/100 WBC (Bld) 13 % High 3-12 [facility] Comment on above: Performed By: #### B C #### [address] [address] [employer]: Sarath Olivera MD Neutrophil (Seg) 71 % High 36-65 [facility] Comment on above: Performed By: #### B C #### [address] [address] [employer]: Sarath Olivera MD NRBC Automated 1.1 per 100 WBC High 0.0 [facility] Comment on above: Performed By: #### B C #### [address] [address] [employer]: Sarath Olivera MD Platelet mean volume (Bld) [Entitic vol] 12.7 fL Normal 8.1-13.5 [facility] Comment on above: Performed By: #### B C #### [address] [address] [employer]: Sarath Olivera MD Platelets (Bld) [#/Vol] 102 10*3/uL Low 138-453 [facility] Comment on above: Performed By: #### B C #### [address] [address] [employer]: Sarath Olivera MD RBC (Bld) [#/Vol] 2.92 10*6/uL Low 3.95-5.11 [facility] Comment on above: Performed By: #### B C #### [address] [address] [employer]: Sarath Olivera MD RBC morphology finding Nom (Bld) ANISOCYTOSIS PRESENT Normal [facility] Comment on above: Performed By: #### B C #### [address] [address] [employer]: Sarath Olivera MD WBC (Bld) [#/Vol] 9.9 10*3/uL Normal 3.5-11.3 [facility] Comment on above: Performed By: #### B C #### [address] [address] [employer]: Sarath Olivera MD Cult, Bloodon 01-10-2024 Cult, Blood Specimen Description .BLOOD Special Requests RT HAND NO MLS GIVEN Culture NO GROWTH 5 DAYS Report Status FINAL 01/10/2024 Normal [facility] Comment on above: Performed By: #### B C #### [address] [address] [employer]: Sarath Olivera MD Cult,Bloodon 01-10-2024 Cult,Blood Specimen Description .BLOOD Special Requests RT AC 10ML Culture NO GROWTH 5 DAYS Report Status FINAL 01/10/2024 [facility] Comment on above: Performed By: #### B C #### [address] [address] [employer]: Sarath Olivera MD Fentanyl, Urineon 01-10-2024 Fentanyl/Metab Ur 21.9 ng/mL Normal [facility] Comment on above: Result Comment: [...] developed and its performance characteristics determined by [employer]. It has not been cleared or approved by the [place] Food and Drug Administration. This test was performed in a CLIA certified laboratory and is intended for clinical purposes. Performed By: #### D AU, UAMIC #### [address] [address] [employer]: Sarath Olivera MD Norfentanyl, Ur See Note Normal [facility] Comment on above: Result Comment: (NOT E) Unable to identify due to interfering substance(s) in the specimen. Performed By: [employer] [address] [place] [address] Environmental Services Technician: Taco Chang MD, PhD CLIA Number: [id number] Performed By: #### D AU, UAMIC #### [address] [address] [employer]: Sarath Olivera MD Opiates,Ur Confirmon 024 Codeine, Ur <20 Normal [facility] Comment on above: Performed By: #### D AU, UAMIC #### [address] [address] [employer]: Sarath Olivera MD Hydrocodone, Ur <20 Normal [facility] Comment on above: Performed By: #### D AU, UAMIC #### [address] [address] [employer]: Sarath Olivera MD Hydromorphone, Ur <20 Normal [facility] Comment on above: Performed By: #### D AU, UAMIC #### [address] [address] [employer]: Sarath Olivera MD Morphine, Ur 331 ng/mL Normal [facility] Comment on above: Performed By: #### D AU, UAMIC #### [address] [address] [employer]: Sarath Olivera MD Norhydrocodone, U <20 Normal [facility] Comment on above: Result Comment: (NOT E) Performed By: [employer] [address] [place] [id number] Environmental Services Technician: Taco Chang MD, PhD CLIA Number: [id number] Performed By: #### D AU, UAMIC #### [facility] [address] [place] [address] [employer]: Sarath Olivera MD Noroxycodone, Ur <20 Normal [facility] Comment on above: Performed By: #### D AU, UAMIC #### [facility] [address] [place] [address] [employer]: Sarath Olivera MD Noroxymorphone,U <20 Normal [facility] Comment on above: Performed By: #### D AU, UAMIC #### [facility] [address] [place] [address] [employer]: Sarath Olivera MD Opiates, 6 AM Ur <10 Normal [facility] Comment on above: Result Comment: (NOT E) [...] developed and its performance characteristics determined by [employer]. It has not been cleared or approved by the [place] Food and Drug Administration. This test was performed in a CLIA certified laboratory and is intended for clinical purposes. Performed By: #### D AU, UAMIC #### [facility] [employer] [address] [place] [address] [employer]: Sarath Olivera MD Oxycodone, Ur <20 Normal [facility] Comment on above: Performed By: #### D BOOKER UAMIC #### [address] [address] [employer]: Sarath Olivera MD Oxymorphone, Ur <20 Normal [facility] Comment on above: Performed By: #### D BOOKER UAMIC #### [address] [address] [employer]: Sarath Olivera MD Basic Metab w/rfx MGon 01-08 Anion gap [Moles/Vol] 7 mmol/L Low 9-16 [facility] Comment on above: Performed By: #### B C #### [address] [address] [employer]: Sarath Olivera MD Calcium [Mass/Vol] 8.0 mg/dL Low 8.6-10.4 [facility] Comment on above: Performed By: #### B C #### [address] [address] [employer]: Sarath Olivera MD Chloride [Moles/Vol] 113 mmol/L High 98-107 [facility] Comment on above: Performed By: #### B C #### [address] [address] [employer]: Sarath Olivera MD CO2 [Moles/Vol] 23 mmol/L Normal 20-31 [facility] Comment on above: Performed By: #### B C #### [address] [address] [employer]: Sarath Olivera MD Creatinine [Mass/Vol] 0.9 mg/dL Normal 0.50-0.90 [facility] Comment on above: Performed By: #### B C #### [facility] [employer] [address] [place] [address] [employer]: Sarath Olivera MD GFR/1.73 sq M.predicted among non-blacks MDRD (S/P/Bld) [Vol rate/Area] 61 mL/min/{1.73_m2} Normal >60 [facility] Comment on above: Result Comment: These results [...] secretion. Performed By: #### B C #### [address] [address] [employer]: Sarath Olivera MD Glucose [Mass/Vol] 112 mg/dL High 74-99 [facility] Comment on above: Performed By: #### B C #### [address] [address] [employer]: Sarath Olivera MD Potassium [Moles/Vol] 5.1 mmol/L Normal 3.7-5.3 [facility] Comment on above: Performed By: #### B C #### [facility] [employer] [address] [place] [address] [employer]: Sarath Olivera MD Sodium [Moles/Vol] 143 mmol/L Normal 136-145 [facility] Comment on above: Performed By: #### B C #### [facility] [employer] [address] [place] [address] [employer]: Sarath Olivera MD Urea nitrogen [Mass/Vol] 31 mg/dL High 8-23 [facility] Comment on above: Performed By: #### B C #### [address] [address] [employer]: Sarath Olivera MD CBC with Diffon 01-09-2024 Platelet, Fluoresc. 84 k/uL Low 138-453 [facility] Comment on above: Performed By: #### B C #### [place] [address] [employer]: Sarath Olivera MD PLT, Immature Fract. 11.1 % High 1.1-10.3 [facility] Comment on above: Performed By: #### B C #### [place] [address] [employer]: Sarath Olivera MD Abs. Basophil <0.03 Normal 0.00-0.20 [facility] Comment on above: Performed By: #### B C #### [place] [address] [employer]: Sarath Olivera MD Abs. Eosinophil <0.03 Normal 0.00-0.44 [facility] Comment on above: Performed By: #### B C #### [address] [address] [employer]: Sarath Olivera MD Abs.Imm.Granulocyte 0.09 k/uL Normal 0.00-0.30 [facility] Comment on above: Performed By: #### B C #### [place] [address] [employer]: Sarath Olivera MD Abs.Neutrophil (Seg) 9.66 k/uL High 1.50-8.10 [facility] Comment on above: Performed By: #### B C #### [address] [address] [employer]: Sarath Olivera MD Basophils/100 WBC (Bld) 0 % Normal 0-2 [facility] Comment on above: Performed By: #### B C #### [address] [address] [employer]: Sarath Olivera MD Eosinophils/100 WBC (Bld) 0 % Low 1-4 [facility] Comment on above: Performed By: #### B C #### [address] [address] [employer]: Sarath Olivera MD Immature granulocytes/100 WBC (Bld) 1 % High 0 [facility] Comment on above: Performed By: #### B C #### [address] [address] [employer]: Sarath Olivera MD Lymphocytes (Bld) [#/Vol] 0.83 10*3/uL Low 1.10-3.70 [facility] Comment on above: Performed By: #### B C #### [address] [address] [employer]: Sarath Olivera MD Lymphocytes/100 WBC (Bld) 7 % Low 24-43 [facility] Comment on above: Performed By: #### B C #### [address] [address] [employer]: Sarath Olivera MD Monocytes (Bld) [#/Vol] 1.03 10*3/uL Normal 0.10-1.20 [facility] Comment on above: Performed By: #### B C #### [address] [address] [employer]: Sarath Olivera MD Monocytes/100 WBC (Bld) 9 % Normal 3-12 [facility] Comment on above: Performed By: #### B C #### [address] [address] [employer]: Sarath Olivera MD Neutrophil (Seg) 83 % High 36-65 [facility] Comment on above: Performed By: #### B C #### [address] [address] [employer]: Sarath Olivera MD Erythrocyte distribution width (RBC) [Ratio] 16.0 % High 11.8-14.4 [facility] Comment on above: Performed By: #### B C #### [place] [address] [employer]: Sarath Olivera MD Hematocrit (Bld) [Volume fraction] 28.1 % Low 36.3-47.1 [facility] Comment on above: Performed By: #### B C #### [place] [address] [employer]: Sarath Olivera MD Hemoglobin (Bld) [Mass/Vol] 8.5 g/dL Low 11.9-15.1 [facility] Comment on above: Performed By: #### B C #### [place] [address] [employer]: Sarath Olivera MD MCH (RBC) [Entitic mass] 30.0 pg Normal 25.2-33.5 [facility] Comment on above: Performed By: #### B C #### [place] [address] [employer]: Sarath Olivera MD MCHC (RBC) [Mass/Vol] 30.2 g/dL Normal 28.4-34.8 [facility] Comment on above: Performed By: #### B C #### [address] [address] [employer]: Sarath Olivera MD MCV (RBC) [Entitic vol] 99.3 fL Normal 82.6-102.9 [facility] Comment on above: Performed By: #### B C #### [address] [address] [employer]: Sarath Olivera MD NRBC Automated 0.9 per 100 WBC High 0.0 [facility] Comment on above: Performed By: #### B C #### [address] [address] [employer]: Sarath Olivera MD Platelet Count See Reflexed IPF Result Normal 138-453 [facility] Comment on above: Performed By: #### B C #### [address] [address] [employer]: Sarath Olivera MD RBC (Bld) [#/Vol] 2.83 10*6/uL Low 3.95-5.11 [facility] Comment on above: Performed By: #### B C #### [address] [address] [employer]: Sarath Olivera MD RBC morphology finding Nom (Bld) ANISOCYTOSIS PRESENT Normal [facility] Comment on above: Performed By: #### B C #### [address] [address] [employer]: Sarath Olivera MD WBC (Bld) [#/Vol] 11.6 10*3/uL High 3.5-11.3 [facility] Comment on above: Performed By: #### B C #### [address] [address] [employer]: Sarath Olivera MD Basic Metab w/rfx MGon 01-07 Anion gap [Moles/Vol] 8 mmol/L Low 9-16 [facility] Comment on above: Performed By: #### B C #### [address] [address] [employer]: Sarath Olivera MD Calcium [Mass/Vol] 7.6 mg/dL Low 8.6-10.4 [facility] Comment on above: Performed By: #### B C #### [facility] [address] [place] [address] [employer]: Sarath Olivera MD Chloride [Moles/Vol] 114 mmol/L High 98-107 [facility] Comment on above: Performed By: #### B C #### [facility] [address] [place] [address] [employer]: Sarath Olivera MD CO2 [Moles/Vol] 20 mmol/L Normal 20-31 [facility] Comment on above: Performed By: #### B C #### [address] [address] [employer]: Sarath Olivera MD Creatinine [Mass/Vol] 1.1 mg/dL High 0.50-0.90 [facility] Comment on above: Performed By: #### B C #### [address] [address] [employer]: Sarath Olivera MD GFR/1.73 sq M.predicted among non-blacks MDRD (S/P/Bld) [Vol rate/Area] 48 mL/min/{1.73_m2} Low >60 [facility] Comment on above: Result Comment: These results [...] secretion. Performed By: #### B C #### [address] [address] [employer]: Sarath Olivera MD Glucose [Mass/Vol] 158 mg/dL High 74-99 [facility] Comment on above: Performed By: #### B C #### [address] [address] [employer]: Sarath Olivera MD Potassium [Moles/Vol] 5.1 mmol/L Normal 3.7-5.3 [facility] Comment on above: Performed By: #### B C #### [address] [address] [employer]: Sarath Olivera MD Sodium [Moles/Vol] 142 mmol/L Normal 136-145 [facility] Comment on above: Performed By: #### B C #### [address] [address] [employer]: Sarath Olivera MD Urea nitrogen [Mass/Vol] 31 mg/dL High 8-23 [facility] Comment on above: Performed By: #### B C #### [address] [address] [employer]: Sarath Olivera MD CBC with Diffon 01-08-2024 Abs. Basophil 0.00 k/uL Normal 0.0-0.2 [facility] Comment on above: Performed By: #### B C #### [address] [address] [employer]: Sarath Olivera MD Abs.Imm.Granulocyte 0.13 k/uL Normal 0.00-0.30 [facility] Comment on above: Performed By: #### B C #### [address] [address] [employer]: Sarath Olivera MD Abs.Neutrophil (Seg) 10.66 k/uL High 1.8-7.7 [facility] Comment on above: Performed By: #### B C #### [address] [id number] [employer]: Sarath Olivera MD Basophils/100 WBC (Bld) 0 % Normal 0-2 [facility] Comment on above: Performed By: #### B C #### [address] [address] [employer]: Sarath Olivera MD Eosinophils (Bld) [#/Vol] 0.00 10*3/uL Normal 0.0-0.4 [facility] Comment on above: Performed By: #### B C #### [address] [address] [employer]: Sarath Olivera MD Eosinophils/100 WBC (Bld) 0 % Low 1-4 [facility] Comment on above: Performed By: #### B C #### [address] [address] [employer]: Sarath Olivera MD Immature granulocytes/100 WBC (Bld) 1 % High 0 [facility] Comment on above: Performed By: #### B C #### [address] [address] [employer]: Sarath Olivera MD Lymphocytes (Bld) [#/Vol] 0.51 10*3/uL Low 1.0-4.8 [facility] Comment on above: Performed By: #### B C #### [address] [address] [employer]: Sarath Olivera MD Lymphocytes/100 WBC (Bld) 4 % Low 24-44 [facility] Comment on above: Performed By: #### B C #### [address] [address] [employer]: Sarath Olivera MD Monocytes (Bld) [#/Vol] 1.40 10*3/uL High 0.1-0.8 [facility] Comment on above: Performed By: #### B C #### [address] [address] [employer]: Sarath Olivera MD Monocytes/100 WBC (Bld) 11 % High 1-7 [facility] Comment on above: Performed By: #### B C #### [address] [address] [employer]: Sarath Olivera MD Morphology Manoj (Bld) [Interp] ANISOCYTOSIS PRESENT Normal [facility] Comment on above: Performed By: #### B C #### [address] [address] [employer]: Sarath Olivera MD Neutrophil (Seg) 84 % High 36-66 [facility] Comment on above: Performed By: #### B C #### [address] [address] [employer]: Sarath Olivera MD Erythrocyte distribution width (RBC) [Ratio] 15.8 % High 11.8-14.4 [facility] Comment on above: Performed By: #### B C #### [address] [address] [employer]: Sarath Olivera MD Hematocrit (Bld) [Volume fraction] 26.2 % Low 36.3-47.1 [facility] Comment on above: Performed By: #### B C #### [address] [address] [employer]: Sarath Olivera MD Hemoglobin (Bld) [Mass/Vol] 8.4 g/dL Low 11.9-15.1 [facility] Comment on above: Performed By: #### B C #### [address] [address] [employer]: Sarath Olivera MD MCH (RBC) [Entitic mass] 29.8 pg Normal 25.2-33.5 [facility] Comment on above: Performed By: #### B C #### [address] [address] [employer]: Sarath Olivera MD MCHC (RBC) [Mass/Vol] 32.1 g/dL Normal 28.4-34.8 [facility] Comment on above: Performed By: #### B C #### [address] [address] [employer]: Sarath Olivera MD MCV (RBC) [Entitic vol] 92.9 fL Normal 82.6-102.9 [facility] Comment on above: Performed By: #### B C #### [address] [address] [employer]: Sarath Olivera MD NRBC Automated 0.3 per 100 WBC High 0.0 [facility] Comment on above: Performed By: #### B C #### [address] [address] [employer]: Sarath Olivera MD Platelet Count See Reflexed IPF Result Normal [address] [place] [address] Comment on above: Performed By: #### B C #### [address] [address] [employer]: Sarath Olivera MD Platelet, Fluoresc. 65 k/uL Low 138-969 [facility] Comment on above: Performed By: #### B C #### [address] [address] [employer]: Sarath Olivera MD PLT, Immature Fract. 11.2 % High 1.1-10.3 [facility] Comment on above: Performed By: #### B C #### [address] [address] [employer]: Sarath Olivera MD RBC (Bld) [#/Vol] 2.82 10*6/uL Low 3.95-5.11 [facility] Comment on above: Performed By: #### B C #### [facility] [address] [place] [address] [employer]: Saarth Olivera MD WBC (Bld) [#/Vol] 12.7 10*3/uL High 3.5-11.3 [facility] Comment on above: Performed By: #### B C #### [address] [address] [employer]: Sarath Olivera MD Calcium, Ionicon 01-08-2024 Calcium [Moles/Vol] 1.12 mmol/L Low 1.13-1.33 [facility] Comment on above: Performed By: #### B C #### [address] [address] [employer]: Sarath Olivera MD Magnesiumon 01-08-2024 Magnesium [Mass/Vol] 2.0 mg/dL Normal 1.6-2.4 [facility] Comment on above: Performed By: #### B C #### [address] [address] [employer]: Sarath Olivera MD Phosphorus, Inorg.on 024 Phosphorus, Inorg. 1.9 mg/dL Low 2.5-4.5 [facility] Comment on above: Performed By: #### B C #### [address] [address] [employer]: Sarath Olivera MD XR CHEST PORTABLEon 01-08-20 [...] Berhane Pressley MD 01/08/24 Final result Normal [facility] Arterial Bld Gas,POCon 01-06 FIO2 60.0 Normal [facility] HCO3 (Bld) [Moles/Vol] 20.2 mmol/L Low 21.0-28.0 [facility] Negative Base Excess (calc) 4.5 mmol/L High 0.0-2.0 [facility] Oxygen saturation in Blood 99.4 % High 94.0-98.0 [facility] pCO2, Arterial 34.6 mm Hg Low 35.0-48.0 [facility] pH, Arterial 7.374 Normal 7.350-7.450 [facility] pO2, Arterial 155.4 mm Hg High 83.0-108.0 [facility] Site Drawn Arterial Line Normal [facility] FIO2 70.0 Normal [facility] HCO3 (Bld) [Moles/Vol] 21.2 mmol/L Normal 21.0-28.0 [facility] Negative Base Excess (calc) 4.4 mmol/L High 0.0-2.0 [facility] Oxygen saturation in Blood 97.4 % Normal 94.0-98.0 [facility] pCO2, Arterial 39.8 mm Hg Normal 35.0-48.0 [facility] pH, Arterial 7.333 Low 7.350-7.450 [facility] pO2, Arterial 100.9 mm Hg Normal 83.0-108.0 [facility] FIO2 80.0 Normal [facility] HCO3 (Bld) [Moles/Vol] 21.0 mmol/L Normal 21.0-28.0 [facility] Negative Base Excess (calc) 4.1 mmol/L High 0.0-2.0 [facility] Oxygen saturation in Blood 97.2 % Normal 94.0-98.0 [facility] pCO2, Arterial 37.9 mm Hg Normal 35.0-48.0 [facility] pH, Arterial 7.353 Normal 7.350-7.450 [facility] pO2, Arterial 96.9 mm Hg Normal 83.0-108.0 [facility] Site Drawn Arterial Line Normal [facility] Basic Metab w/rfx MGon 01-06 Anion gap [Moles/Vol] 8 mmol/L Low 9-16 [facility] Comment on above: Performed By: #### B C #### [facility] [employer] [address] [place] [address] [employer]: Sarath Olivera MD Calcium [Mass/Vol] 7.7 mg/dL Low 8.6-10.4 [facility] Comment on above: Performed By: #### B C #### [facility] [employer] [address] [place] [address] [employer]: Sarath Olivera MD Chloride [Moles/Vol] 115 mmol/L High 98-107 [facility] Comment on above: Performed By: #### B C #### [facility] [employer] [address] [place] [address] [employer]: Sarath Olivera MD CO2 [Moles/Vol] 20 mmol/L Normal 20-31 [facility] Comment on above: Performed By: #### B C #### [facility] [employer] [address] [place] [id number] [employer]: Sarath Olivera MD Creatinine [Mass/Vol] 1.3 mg/dL High 0.50-0.90 [facility] Comment on above: Performed By: #### B C #### [address] [address] [employer]: Sarath Olivera MD GFR/1.73 sq M.predicted among non-blacks MDRD (S/P/Bld) [Vol rate/Area] 41 mL/min/{1.73_m2} Low >60 [facility] Comment on above: Result Comment: These results [...] secretion. Performed By: #### B C #### [address] [address] [employer]: Sarath Olivera MD Glucose [Mass/Vol] 150 mg/dL High 74-99 [facility] Comment on above: Performed By: #### B C #### [facility] [employer] [address] [place] [address] [employer]: Sarath Olivera MD Potassium [Moles/Vol] 4.2 mmol/L Normal 3.7-5.3 [facility] Comment on above: Performed By: #### B C #### [facility] [employer] [address] [place] [address] [employer]: Sarath Olivera MD Sodium [Moles/Vol] 143 mmol/L Normal 136-145 [facility] Comment on above: Performed By: #### B C #### [address] [address] [employer]: Sarath Olivera MD Urea nitrogen [Mass/Vol] 36 mg/dL High 8-23 [facility] Comment on above: Performed By: #### B C #### [address] [address] [employer]: Sarath Olivera MD CBC with Diffon 01-07-2024 Abs. Basophil 0.00 k/uL Normal 0.0-0.2 [facility] Comment on above: Performed By: #### B C #### [address] [address] [employer]: Sarath Olivera MD Abs.Imm.Granulocyte 0.00 k/uL Normal 0.00-0.30 [facility] Comment on above: Performed By: #### B C #### [address] [address] [employer]: Sarath Olivera MD Abs.Neutrophil (Seg) 8.81 k/uL High 1.8-7.7 [facility] Comment on above: Performed By: #### B C #### [address] [address] [employer]: Sarath Olivera MD Basophils/100 WBC (Bld) 0 % Normal 0-2 [facility] Comment on above: Performed By: #### B C #### [address] [address] [employer]: Sarath Olivera MD Eosinophils (Bld) [#/Vol] 0.00 10*3/uL Normal 0.0-0.4 [facility] Comment on above: Performed By: #### B C #### [address] [address] [employer]: Sarath Olivera MD Eosinophils/100 WBC (Bld) 0 % Low 1-4 [facility] Comment on above: Performed By: #### B C #### [address] [address] [employer]: Sarath Olivera MD Immature granulocytes/100 WBC (Bld) 0 % Normal 0 [facility] Comment on above: Performed By: #### B C #### [address] [address] [employer]: Sarath Olivera MD Lymphocytes (Bld) [#/Vol] 0.69 10*3/uL Low 1.0-4.8 [facility] Comment on above: Performed By: #### B C #### [address] [address] [employer]: Sarath Olivera MD Lymphocytes/100 WBC (Bld) 7 % Low 24-44 [facility] Comment on above: Performed By: #### B C #### [address] [address] [employer]: Sarath Olivera MD Monocytes (Bld) [#/Vol] 0.40 10*3/uL Normal 0.1-0.8 [facility] Comment on above: Performed By: #### B C #### [address] [address] [employer]: Sarath Olivera MD Monocytes/100 WBC (Bld) 4 % Normal 1-7 [facility] Comment on above: Performed By: #### B C #### [address] [address] [employer]: Sarath Olivera MD Morphology Manoj (Bld) [Interp] ANISOCYTOSIS PRESENT Normal [facility] Comment on above: Result Comment: INCR EASED BANDS PRESENT Performed By: #### B C #### [address] [address] [employer]: Sarath Olivera MD Neutrophil (Seg) 89 % High 36-66 [facility] Comment on above: Performed By: #### B C #### [address] [address] [employer]: Sarath Olivrea MD Erythrocyte distribution width (RBC) [Ratio] 14.8 % High 11.8-14.4 [facility] Comment on above: Performed By: #### B C #### [address] [address] [employer]: Sarath Olivera MD Hematocrit (Bld) [Volume fraction] 25.3 % Low 36.3-47.1 [facility] Comment on above: Performed By: #### B C #### [address] [address] [employer]: Sarath Olivera MD Hemoglobin (Bld) [Mass/Vol] 8.3 g/dL Low 11.9-15.1 [facility] Comment on above: Performed By: #### B C #### [address] [address] [employer]: Sarath Olivera MD MCH (RBC) [Entitic mass] 30.3 pg Normal 25.2-33.5 [facility] Comment on above: Performed By: #### B C #### [address] [address] [employer]: Sarath Olivera MD MCHC (RBC) [Mass/Vol] 32.8 g/dL Normal 28.4-34.8 [facility] Comment on above: Performed By: #### B C #### [address] [address] [employer]: Sarath Olivera MD MCV (RBC) [Entitic vol] 92.3 fL Normal 82.6-102.9 [facility] Comment on above: Performed By: #### B C #### [address] [address] [employer]: Sarath Olivera MD NRBC Automated 0.0 per 100 WBC Normal 0.0 [facility] Comment on above: Performed By: #### B C #### [address] [address] [employer]: Sarath Olivera MD Platelet Count See Reflexed IPF Result Normal 138-453 [facility] Comment on above: Performed By: #### B C #### [address] [address] [employer]: Sarath Olivera MD Platelet, Fluoresc. 70 k/uL Low 138-453 [facility] Comment on above: Performed By: #### B C #### [address] [address] [employer]: Sarath Olivera MD PLT, Immature Fract. 10.5 % High 1.1-10.3 [facility] Comment on above: Performed By: #### B C #### [address] [address] [employer]: Sarath Olivera MD RBC (Bld) [#/Vol] 2.74 10*6/uL Low 3.95-5.11 [facility] Comment on above: Performed By: #### B C #### [address] [address] [employer]: Sarath Olivera MD WBC (Bld) [#/Vol] 9.9 10*3/uL Normal 3.5-11.3 [facility] Comment on above: Performed By: #### B C #### [address] [address] [employer]: Sarath Olivera MD Calcium, Ionicon 01-07-2024 Calcium [Moles/Vol] 1.13 mmol/L Normal 1.13-1.33 [facility] Comment on above: Performed By: #### I OCAL ####[address] [address] Lab Director: Sarath Olivera MD Cult,Urineon 01-07-2024 Cult,Urine Specimen Description .CLEAN CATCH URINE Special Requests Site: Urine Culture NO GROWTH Report Status FINAL 01/07/2024 Normal [facility] Comment on above: Performed By: #### B C #### [address] [address] [employer]: Sarath Olivera MD Gl Hemostasis TEG w/Lysison 01-07-2024 Fibrinogen, Func TEG 17.9 mm Normal 15.0-32.0 [facility] Comment on above: Performed By: #### B C #### [address] [address] [employer]: Sarath Olivera MD LY30 (Lysis) TEG 1.0 % Normal 0.0-2.6 [facility] Comment on above: Performed By: #### B C #### [address] [address] [employer]: Sarath Olivera MD MA Rapid TEG 54.9 mm Normal 52.0-70 [facility] Comment on above: Performed By: #### B C #### [address] [address] [employer]: Sarath Olivera MD R(Reaction Time) TEG 5.7 min Normal 4.6-9.1 [facility] Comment on above: Performed By: #### B C #### [address] [address] [employer]: Sarath Olivera MD Glucose (POC)on 01-07-2024 Glucose [Mass/Vol] 161 mg/dL High 74-100 [facility] Glucose [Mass/Vol] 143 mg/dL High 74-100 [facility] Glucose [Mass/Vol] 157 mg/dL High 74-100 [facility] Glucose,Whole Bloodon 2023 Glucose [Mass/Vol] 142 mg/dL High 65-105 [facility] Glucose [Mass/Vol] 145 mg/dL High 65-105 [facility] Lactic Acid (POC)on 01-07-20 24 Lactate [Moles/Vol] 1.0 mmol/L Normal 0.56-1.39 [facility] Lactate [Moles/Vol] 1.0 mmol/L Normal 0.56-1.39 [facility] Lactate [Moles/Vol] 1.1 mmol/L Normal 0.56-1.39 [facility] Magnesiumon 01-07-2024 Magnesium [Mass/Vol] 1.9 mg/dL Normal 1.6-2.4 [facility] Comment on above: Performed By: #### B C #### [employer] [address] [place] [address] [employer]: Sarath Olivera MD Phosphorus, Inorg.on 024 Phosphorus, Inorg. 3.1 mg/dL Normal 2.5-4.5 [facility] Comment on above: Performed By: #### B C #### [employer] [address] [place] [address] [phone] [employer]: Sarath Olivera MD XR CHEST PORTABLEon 01-07-20 [...] Mayelin Reynolds MD 01/07/24 Final result Normal [facility] XR CHEST PORTABLE EXAMINATION: ONE XRAY VIEW [...] Deon Webb MD 01/07/24 Final result Normal [facility] Albuminon 01-06-2024 Albumin [Mass/Vol] 2.8 g/dL Low 3.5-5.2 [facility] Comment on above: Performed By: #### A LB, FT4, TSHX, GLYHGB, HH, VD25 ####[facility] [address] [place] [address] [facility] Director: Sarath Olivera MD Arterial Bld Gas,POCon 01-05 FIO2 100.0 Normal [facility] HCO3 (Bld) [Moles/Vol] 20.7 mmol/L Low 21.0-28.0 [facility] Negative Base Excess (calc) 3.5 mmol/L High 0.0-2.0 [facility] Oxygen saturation in Blood 99.5 % High 94.0-98.0 [facility] pCO2, Arterial 32.9 mm Hg Low 35.0-48.0 [facility] pH, Arterial 7.406 Normal 7.350-7.450 [facility] pO2, Arterial 164.9 mm Hg High 83.0-108.0 [facility] Site Drawn Arterial Line Normal [facility] FIO2 100.0 Normal [facility] HCO3 (Bld) [Moles/Vol] 19.1 mmol/L Low 21.0-28.0 [facility] Negative Base Excess (calc) 4.6 mmol/L High 0.0-2.0 [facility] Oxygen saturation in Blood 99.3 % High 94.0-98.0 [facility] pCO2, Arterial 29.3 mm Hg Low 35.0-48.0 [facility] pH, Arterial 7.421 Normal 7.350-7.450 [facility] pO2, Arterial 142.4 mm Hg High 83.0-108.0 [facility] Site Drawn Arterial Line Normal [facility] FIO2 3.0 Normal [facility] HCO3 (Bld) [Moles/Vol] 18.8 mmol/L Low 21.0-28.0 [facility] Negative Base Excess (calc) 5.5 mmol/L High 0.0-2.0 [facility] O2 Device Cannula Normal [facility] Oxygen saturation in Blood 90.0 % Low 94.0-98.0 [facility] pCO2, Arterial 30.6 mm Hg Low 35.0-48.0 [facility] pH, Arterial 7.395 Normal 7.350-7.450 [facility] pO2, Arterial 57.8 mm Hg Low 83.0-108.0 [facility] Site Drawn Right Radial Artery Normal [facility] FIO2 5.0 Normal [facility] HCO3 (Bld) [Moles/Vol] 12.6 mmol/L Low 21.0-28.0 [facility] Negative Base Excess (calc) 14.2 mmol/L High 0.0-2.0 [facility] Oxygen saturation in Blood 94.6 % Normal 94.0-98.0 [facility] pCO2, Arterial 32.3 mm Hg Low 35.0-48.0 [facility] pH, Arterial 7.199 Critically low 7.350-7.450 [facility] pO2, Arterial 88.8 mm Hg Normal 83.0-108.0 [facility] Site Drawn Right Radial Artery Normal [facility] Basic Metab w/rfx MGon 01-05 Anion gap [Moles/Vol] 18 mmol/L High 9-16 [facility] Comment on above: Performed By: #### Ashley CELESTE UAMIC #### [facility] [employer] [address] [place] [address] [employer]: Sarath Olivera MD Calcium [Mass/Vol] 7.7 mg/dL Low 8.6-10.4 [facility] Comment on above: Performed By: #### Ashley CELESTE UAMIC #### [facility] [employer] [address] [place] [address] [employer]: Sarath Olivera MD Chloride [Moles/Vol] 110 mmol/L High 98-107 [facility] Comment on above: Performed By: #### Ashley CELESTE UAMIC #### [facility] [address] [place] [address] [employer]: Sarath Olivera MD CO2 [Moles/Vol] 15 mmol/L Low 20-31 [facility] Comment on above: Performed By: #### Ashley CELESTE UAMIC #### [employer] [address] [place] [address] [employer]: Sarath Olivera MD Creatinine [Mass/Vol] 1.9 mg/dL High 0.50-0.90 [facility] Comment on above: Performed By: #### Ashley CELESTE UAMIC #### [facility] [address] [place] [address] [employer]: Sarath Olivera MD GFR/1.73 sq M.predicted among non-blacks MDRD (S/P/Bld) [Vol rate/Area] 26 mL/min/{1.73_m2} Low >60 [facility] Comment on above: Result Comment: These results [...] Performed By: #### Ashley CELESTE, UAMIC #### [facility] [address] [place] [address] [employer]: Sarath Olivera MD Glucose [Mass/Vol] 173 mg/dL High 74-99 [facility] Comment on above: Performed By: #### Ashley CELESTE, UAMIC #### [facility] [employer] [address] [place] [address] [employer]: Sarath Olivera MD Potassium [Moles/Vol] 4.6 mmol/L Normal 3.7-5.3 [facility] Comment on above: Performed By: #### Ashley AU, UAMIC #### [facility] [address] [place] [address] [employer]: Sarath Olivera MD Sodium [Moles/Vol] 143 mmol/L Normal 136-145 [facility] Comment on above: Performed By: #### Ashley AU, UAMIC #### [facility] [address] [place] [address] [employer]: Sarath Olivera MD Urea nitrogen [Mass/Vol] 32 mg/dL High 8-23 [facility] Comment on above: Performed By: #### Ashley AU, UAMIC #### [facility] [address] [place] [address] [employer]: Sarath Olivera MD Anion gap [Moles/Vol] 21 mmol/L High 9-16 [facility] Comment on above: Performed By: #### B C #### [address] [address] [employer]: Sarath Olivera MD Calcium [Mass/Vol] 7.6 mg/dL Low 8.6-10.4 [facility] Comment on above: Performed By: #### B C #### [address] [address] [employer]: Sarath Olivera MD Chloride [Moles/Vol] 113 mmol/L High 98-107 [facility] Comment on above: Performed By: #### B C #### [address] [address] [employer]: Sarath Olivera MD CO2 [Moles/Vol] 9 mmol/L Critically low 20-31 [facility] Comment on above: Performed By: #### B C #### [address] [address] [employer]: Sarath Olivera MD Creatinine [Mass/Vol] 1.7 mg/dL High 0.50-0.90 [facility] Comment on above: Performed By: #### B C #### [address] [address] [employer]: Sarath Olivera MD GFR/1.73 sq M.predicted among non-blacks MDRD (S/P/Bld) [Vol rate/Area] 20 mL/min/{1.73_m2} Low >60 [facility] Comment on above: Result Comment: These results [...] secretion. Performed By: #### B C #### [facility] [employer] [address] [place] [address] [employer]: Sarath Olivera MD Glucose [Mass/Vol] 184 mg/dL High 74-99 [facility] Comment on above: Performed By: #### B C #### [address] [address] [employer]: Sarath Olivera MD Potassium [Moles/Vol] 4.7 mmol/L Normal 3.7-5.3 [facility] Comment on above: Performed By: #### B C #### [address] [address] [employer]: Sarath Olivera MD Sodium [Moles/Vol] 143 mmol/L Normal 136-145 [facility] Comment on above: Performed By: #### B C #### [address] [address] [employer]: Sarath Olivera MD Urea nitrogen [Mass/Vol] 30 mg/dL High 8-23 [facility] Comment on above: Performed By: #### B C #### [address] [address] [employer]: Sarath Olivera MD Basic Metabolic Profon 01-05 Anion gap [Moles/Vol] 9 mmol/L Normal 9-16 [facility] Comment on above: Performed By: #### B MP, IOCAL, CDP, PT, MG, SRAVANTHI ####[facility] [address] [place] [address])[phone] Director: Sarath Olivera MD Calcium [Mass/Vol] 8.0 mg/dL Low 8.6-10.4 [facility] Comment on above: Performed By: #### B MP, IOCAL, CDP, PT, MG, SRAVANTHI ####[facility] [address] [place] [address] Lab Director: Sarath Olivera MD Chloride [Moles/Vol] 114 mmol/L High 98-107 [facility] Comment on above: Performed By: #### B MP, IOCAL, CDP, PT, MG, SRAVANTHI ####[facility] [address] [place] [address] Lab Director: Sarath Olivera MD CO2 [Moles/Vol] 19 mmol/L Low 20-31 [facility] Comment on above: Performed By: #### B MP, IOCAL, CDP, PT, MG, SRAVANTHI ####[address] [address] Lab Director: Sarath Olivera MD Creatinine [Mass/Vol] 1.4 mg/dL High 0.50-0.90 [facility] Comment on above: Performed By: #### B MP, IOCAL, CDP, PT, MG, SRAVANTHI ####[address] [address] Lab Director: Sarath Olivera MD GFR/1.73 sq M.predicted among non-blacks MDRD (S/P/Bld) [Vol rate/Area] 38 mL/min/{1.73_m2} Low >60 [facility] Comment on above: Result Comment: These results [...] secretion. Performed By: #### B MP, IOCAL, CDP, PT, MG, SRAVANTHI ####[facility] [address] [place] [address] Lab Director: Sarath Olivera MD Glucose [Mass/Vol] 147 mg/dL High 74-99 [facility] Comment on above: Performed By: #### B MP, IOCAL, CDP, PT, MG, SRAVANTHI ####[facility] [address] [place], [place] [address])[phone] Director: Sarath Olivera MD Potassium [Moles/Vol] 4.4 mmol/L Normal 3.7-5.3 [facility] Comment on above: Performed By: #### B MP, IOCAL, CDP, PT, MG, SRAVANTHI ####[facility] [address] [place], [place] [address])[phone] Director: Sarath Olivera MD Sodium [Moles/Vol] 142 mmol/L Normal 136-145 [facility] Comment on above: Performed By: #### B MP, IOCAL, CDP, PT, MG, SRAVANTHI ####[facility] [address] [place], [place] [address])[phone] Director: Sarath Olivera MD Urea nitrogen [Mass/Vol] 36 mg/dL High 8-23 [facility] Comment on above: Performed By: #### B MP, IOCAL, CDP, PT, MG, SRAVANTHI ####[facility] [address] [place], [place] [address])[phone] Director: Sarath Olivera MD CBC with Diffon 01-06-2024 Abs. Basophil 0.00 k/uL Normal 0.0-0.2 [facility] Comment on above: Performed By: #### B MP, IOCAL, CDP, PT, MG, SRAVANTHI ####[facility] [address] [place], [place] [address])[phone] Director: Sarath Olivera MD Abs.Imm.Granulocyte 0.00 k/uL Normal 0.00-0.30 [facility] Comment on above: Performed By: #### B MP, IOCAL, CDP, PT, MG, SRAVANTHI ####[facility] [address] [place], [place] [address])[phone] Director: Sarath Olivera MD Abs.Neutrophil (Seg) 9.26 k/uL High 1.8-7.7 [facility] Comment on above: Performed By: #### B MP, IOCAL, CDP, PT, MG, SRAVANTHI ####[address] [address])[phone] Director: Sarath Olivera MD Basophils/100 WBC (Bld) 0 % Normal 0-2 [facility] Comment on above: Performed By: #### B MP, IOCAL, CDP, PT, MG, SRAVANTHI ####[facility] [address] [place] [address] Lab Director: Sarath Olivera MD Eosinophils (Bld) [#/Vol] 0.00 10*3/uL Normal 0.0-0.4 [facility] Comment on above: Performed By: #### B MP, IOCAL, CDP, PT, MG, SRAVANTHI ####[address] [address])[phone] Director: Sarath Olivera MD Eosinophils/100 WBC (Bld) 0 % Low 1-4 [facility] Comment on above: Performed By: #### B MP, IOCAL, CDP, PT, MG, SRAVANTHI ####[address] [address])[phone] Director: Sarath Olivera MD Immature granulocytes/100 WBC (Bld) 0 % Normal 0 [facility] Comment on above: Performed By: #### B MP, IOCAL, CDP, PT, MG, SRAVANTHI ####[facility] [address] [place] [address])[phone] Director: Sarath Olivera MD Lymphocytes (Bld) [#/Vol] 0.52 10*3/uL Low 1.0-4.8 [facility] Comment on above: Performed By: #### B MP, IOCAL, CDP, PT, MG, SRAVANTHI ####[facility] [address] [place] [address])[phone] Director: Sarath Olivera MD Lymphocytes/100 WBC (Bld) 5 % Low 24-44 [facility] Comment on above: Performed By: #### B MP, IOCAL, CDP, PT, MG, SRAVANTHI ####[address] [id number])[phone] Director: Sarath Olivera MD Monocytes (Bld) [#/Vol] 0.52 10*3/uL Normal 0.1-0.8 [facility] Comment on above: Performed By: #### B MP, IOCAL, CDP, PT, MG, SRAVANTHI ####[place], [place] [address])[phone] Director: Sarath Olivera MD Monocytes/100 WBC (Bld) 5 % Normal 1-7 [facility] Comment on above: Performed By: #### B MP, IOCAL, CDP, PT, MG, SRAVANTHI ####[place], [place] [address])[phone] Director: Sarath Olivera MD Morphology Manoj (Bld) [Interp] Normal Normal [facility] Comment on above: Performed By: #### B MP, IOCAL, CDP, PT, MG, SRAVANTHI ####[address] [id number])[phone] Director: Sarath Olivera MD Neutrophil (Seg) 90 % High 36-66 [facility] Comment on above: Performed By: #### B MP, IOCAL, CDP, PT, MG, SRAVANTHI ####[address] [address])[phone] Director: Sarath Olivera MD Erythrocyte distribution width (RBC) [Ratio] 14.5 % High 11.8-14.4 [facility] Comment on above: Performed By: #### B MP, IOCAL, CDP, PT, MG, SRAVANTHI ####[address] [place] [address] Lab Director: Sarath Olivera MD Hematocrit (Bld) [Volume fraction] 26.9 % Low 36.3-47.1 [facility] Comment on above: Performed By: #### B MP, IOCAL, CDP, PT, MG, SRAVANTHI ####[facility] [address] [place] [address] Lab Director: Sarath Olivera MD Hemoglobin (Bld) [Mass/Vol] 9.0 g/dL Low 11.9-15.1 [facility] Comment on above: Performed By: #### B MP, IOCAL, CDP, PT, MG, SRAVANTHI ####[place] [address] Lab Director: Sarath Olivera MD MCH (RBC) [Entitic mass] 30.8 pg Normal 25.2-33.5 [facility] Comment on above: Performed By: #### B MP, IOCAL, CDP, PT, MG, SRAVANTHI ####[facility] [address] [place] [address] Lab Director: Sarath Olivera MD MCHC (RBC) [Mass/Vol] 33.5 g/dL Normal 28.4-34.8 [facility] Comment on above: Performed By: #### B MP, IOCAL, CDP, PT, MG, SRAVANTHI ####[facility] [address] [place] [address] Lab Director: Sarath Olivera MD MCV (RBC) [Entitic vol] 92.1 fL Normal 82.6-102.9 [facility] Comment on above: Performed By: #### B MP, IOCAL, CDP, PT, MG, SRAVANTHI ####[facility] [address] [place] [address] Lab Director: Sarath Olivera MD NRBC Automated 0.0 per 100 WBC Normal 0.0 [facility] Comment on above: Performed By: #### B MP, IOCAL, CDP, PT, MG, SRAVANTHI ####[address] [address])[phone] Director: Sarath Olivera MD Platelet mean volume (Bld) [Entitic vol] 12.9 fL Normal 8.1-13.5 [facility] Comment on above: Performed By: #### B MP, IOCAL, CDP, PT, MG, SRAVANTHI ####[address] [address])[phone] Director: Sarath Olivera MD Platelets (Bld) [#/Vol] 66 10*3/uL Low 138-453 [facility] Comment on above: Performed By: #### B MP, IOCAL, CDP, PT, MG, SRAVANTHI ####[place], [place] [address])[phone] Director: Sarath Olivera MD RBC (Bld) [#/Vol] 2.92 10*6/uL Low 3.95-5.11 [facility] Comment on above: Performed By: #### B MP, IOCAL, CDP, PT, MG, SRAVANTHI ####[place], [place] [address])[phone] Director: Sarath Olivera MD WBC (Bld) [#/Vol] 10.3 10*3/uL Normal 3.5-11.3 [facility] Comment on above: Performed By: #### B MP, IOCAL, CDP, PT, MG, SRAVANTHI ####[address] [address])[phone] Director: Sarath Olivera MD Abs. Basophil 0.00 k/uL Normal 0.00-0.20 [facility] Comment on above: Performed By: #### C DP ####[address] [address])[phone] Director: Sarath Olivera MD Abs.Imm.Granulocyte 0.00 k/uL Normal 0.00-0.30 [facility] Comment on above: Performed By: #### C DP ####[place], [place] [address])[phone] Director: Sarath Olivera MD Abs.Neutrophil (Seg) 12.38 k/uL High 1.50-8.10 [facility] Comment on above: Performed By: #### C DP ####[place], [place] [address])[phone] Director: Sarath Olivera MD Basophils/100 WBC (Bld) 0 % Normal 0-2 [facility] Comment on above: Performed By: #### C DP ####[place], [place] [address])[phone] Director: Sarath Olivera MD Eosinophils (Bld) [#/Vol] 0.00 10*3/uL Normal 0.00-0.44 [facility] Comment on above: Performed By: #### C DP ####[place], [place] [address])[phone] Director: Sarath Olivera MD Eosinophils/100 WBC (Bld) 0 % Low 1-4 [facility] Comment on above: Performed By: #### C DP ####[place], [place] [address])[phone] Director: Sarath Olivera MD Immature granulocytes/100 WBC (Bld) 0 % Normal 0 [facility] Comment on above: Performed By: #### C DP ####[place], [place] [address])[phone] Director: Sarath Olivera MD Lymphocytes (Bld) [#/Vol] 0.91 10*3/uL Low 1.10-3.70 [facility] Comment on above: Performed By: #### C DP ####[address], [place] 50632419)[phone] Director: Sarath Olivera MD Lymphocytes/100 WBC (Bld) 6 % Low 24-43 [facility] Comment on above: Performed By: #### C DP ####[address] [phone] Director: Sarath Olivera MD Monocytes (Bld) [#/Vol] 1.81 10*3/uL High 0.10-1.20 [facility] Comment on above: Performed By: #### C DP ####[address] [id number])[phone] Director: Sarath Olivera MD Monocytes/100 WBC (Bld) 12 % Normal 3-12 [facility] Comment on above: Performed By: #### C DP ####[address] [address])[phone] Director: Sarath Olivera MD Morphology Manoj (Bld) [Interp] ANISOCYTOSIS PRESENT Normal [facility] Comment on above: Performed By: #### C DP ####[address] [id number])[phone] Director: Sarath Olivera MD Neutrophil (Seg) 82 % High 36-65 [facility] Comment on above: Performed By: #### C DP ####[address] [address])[phone] Director: Sarath Olivera MD Erythrocyte distribution width (RBC) [Ratio] 14.9 % High 11.8-14.4 [facility] Comment on above: Performed By: #### C DP ####[address] [address])[phone] Director: Sarath Olivera MD Hematocrit (Bld) [Volume fraction] 25.3 % Low 36.3-47.1 [facility] Comment on above: Performed By: #### C DP ####[address] [address] Lab Director: Sarath Olivera MD Hemoglobin (Bld) [Mass/Vol] 7.7 g/dL Low 11.9-15.1 [facility] Comment on above: Performed By: #### C DP ####[place], [place] [address])[phone] Director: Sarath Olivera MD MCH (RBC) [Entitic mass] 30.8 pg Normal 25.2-33.5 [facility] Comment on above: Performed By: #### C DP ####[place], [place] [address])[phone] Director: Sarath Olivera MD MCHC (RBC) [Mass/Vol] 30.4 g/dL Normal 28.4-34.8 [facility] Comment on above: Performed By: #### C DP ####[address] [address])[phone] Director: Sarath Olivera MD MCV (RBC) [Entitic vol] 101.2 fL Normal 82.6-102.9 [facility] Comment on above: Performed By: #### C DP ####[place], [place] [address])[phone] Director: Sarath Olivera MD NRBC Automated 0.0 per 100 WBC Normal 0.0 [facility] Comment on above: Performed By: #### C DP ####[place], [place] [address])[phone] Director: Sarath Olivera MD Platelet mean volume (Bld) [Entitic vol] 12.7 fL Normal 8.1-13.5 [facility] Comment on above: Performed By: #### C DP ####[place], [place] [address])[phone] Director: Sarath Olivera MD Platelets (Bld) [#/Vol] 97 10*3/uL Low 138-453 [facility] Comment on above: Performed By: #### C DP ####[address] [id number])[phone] Director: Sarath Olivera MD RBC (Bld) [#/Vol] 2.50 10*6/uL Low 3.95-5.11 [facility] Comment on above: Performed By: #### C DP ####[address] [address])[phone] Director: Sarath Olivera MD WBC (Bld) [#/Vol] 15.1 10*3/uL High 3.5-11.3 [facility] Comment on above: Performed By: #### C DP ####[address] [address])[phone] Director: Sarath Olivera MD Abs. Basophil 0.00 k/uL Normal 0.0-0.2 [facility] Comment on above: Performed By: #### JOSIE RUSSELLMIC #### [facility] [employer] [address] [place] [address] [employer]: Sarath Olivera MD Abs.Imm.Granulocyte 0.00 k/uL Normal 0.00-0.30 [facility] Comment on above: Performed By: #### Ashley CELESTE UAMIC #### [facility] [employer] [address] [place] [address] [employer]: Sarath Olivera MD Abs.Neutrophil (Seg) 17.28 k/uL High 1.8-7.7 [facility] Comment on above: Performed By: #### Ashley CELESTE UAMIC #### [facility] [employer] [address] [place] [address] [employer]: Sarath Olivera MD Basophils/100 WBC (Bld) 0 % Normal 0-2 [facility] Comment on above: Performed By: #### Ashley CELESTE UAMIC #### [address] [address] [employer]: Sarath Olivera MD Eosinophils (Bld) [#/Vol] 0.00 10*3/uL Normal 0.0-0.4 [facility] Comment on above: Performed By: #### Ashley CELESTE UAMIC #### [address] [address] [employer]: Sarath Olivera MD Eosinophils/100 WBC (Bld) 0 % Low 1-4 [facility] Comment on above: Performed By: #### Ashley CELESTE UAMIC #### [address] [address] [employer]: Sarath Olivera MD Immature granulocytes/100 WBC (Bld) 0 % Normal 0 [facility] Comment on above: Performed By: #### Ashley CELESTE UAMIC #### [address] [address] [employer]: Sarath Olivera MD Lymphocytes (Bld) [#/Vol] 1.41 10*3/uL Normal 1.0-4.8 [facility] Comment on above: Performed By: #### Ashley CELESTE UAMIC #### [address] [address] [employer]: Sarath Olivera MD Lymphocytes/100 WBC (Bld) 7 % Low 24-44 [facility] Comment on above: Performed By: #### Ashley CELESTE, UAMIC #### [address] [address] [employer]: Sarath Olivera MD Monocytes (Bld) [#/Vol] 1.41 10*3/uL High 0.1-0.8 [facility] Comment on above: Performed By: #### Ashley AU, UAMIC #### [address] [address] [employer]: Sarath Olivera MD Monocytes/100 WBC (Bld) 7 % Normal 1-7 [facility] Comment on above: Performed By: #### Ashley AU, UAMIC #### [address] [address] [employer]: Sarath Olivera MD Morphology Manoj (Bld) [Interp] Normal Normal [facility] Comment on above: Performed By: #### Ashley AU, UAMIC #### [address] [address] [employer]: Sarath Olivera MD Neutrophil (Seg) 86 % High 36-66 [facility] Comment on above: Performed By: #### Ashley CELESTE, UAMIC #### [address] [address] [employer]: Sarath Olivera MD Platelet, Fluoresc. Platelet clumps present, count appears decreased. Normal 138-453 [facility] Comment on above: Performed By: #### Ashley AU, UAMIC #### [address] [address] [employer]: Sarath Olivera MD Erythrocyte distribution width (RBC) [Ratio] 14.6 % High 11.8-14.4 [facility] Comment on above: Performed By: #### Ashley AU, UAMIC #### [facility] [employer] [address] [place] [address] [employer]: Sarath Olivera MD Hematocrit (Bld) [Volume fraction] 29.0 % Low 36.3-47.1 [facility] Comment on above: Performed By: #### Ashley AU, UAMIC #### [facility] [employer] [address] [place] [address] [employer]: Sarath Olivera MD Hemoglobin (Bld) [Mass/Vol] 9.2 g/dL Low 11.9-15.1 [facility] Comment on above: Performed By: #### Ashley CELESTE UAMIC #### [address] [address] [employer]: Sarath Olivera MD MCH (RBC) [Entitic mass] 31.0 pg Normal 25.2-33.5 [facility] Comment on above: Performed By: #### Ashley CELESTE UAMIC #### [address] [address] [employer]: Sarath Olivera MD MCHC (RBC) [Mass/Vol] 31.7 g/dL Normal 28.4-34.8 [facility] Comment on above: Performed By: #### Ashley CELESTE UAMIC #### [address] [address] [employer]: Sarath Olivera MD MCV (RBC) [Entitic vol] 97.6 fL Normal 82.6-102.9 [facility] Comment on above: Performed By: #### Ashley CELESTE UAMIC #### [address] [address] [employer]: Sarath Olivera MD NRBC Automated 0.0 per 100 WBC Normal 0.0 [facility] Comment on above: Performed By: #### Ashley CELESTE UAMIC #### [address] [address] [employer]: Sarath Olivera MD Platelet Count See Reflexed IPF Result Normal 138-453 [facility] Comment on above: Performed By: #### Ashley CELESTE UAMIC #### [address] [address] [employer]: Sarath Olivera MD RBC (Bld) [#/Vol] 2.97 10*6/uL Low 3.95-5.11 [facility] Comment on above: Performed By: #### D BOOKER UAMIC #### [place] [address] [employer]: Sarath Olivera MD WBC (Bld) [#/Vol] 20.1 10*3/uL High 3.5-11.3 [facility] Comment on above: Performed By: #### D BOOKER UAMIC #### [place] [address] [employer]: Sarath Olivera MD Abs. Basophil 0.00 k/uL Normal 0.0-0.2 [facility] Comment on above: Performed By: #### B C #### [place] [address] [employer]: Sarath Olivera MD Abs.Imm.Granulocyte 0.00 k/uL Normal 0.00-0.30 [facility] Comment on above: Performed By: #### B C #### [place] [address] [employer]: Sarath Olivera MD Abs.Neutrophil (Seg) 16.68 k/uL High 1.8-7.7 [facility] Comment on above: Performed By: #### B C #### [place] [address] [employer]: Sarath Olivera MD Basophils/100 WBC (Bld) 0 % Normal 0-2 [facility] Comment on above: Performed By: #### B C #### [place] [address] [employer]: Sarath Olivera MD Eosinophils (Bld) [#/Vol] 0.00 10*3/uL Normal 0.0-0.4 [facility] Comment on above: Performed By: #### B C #### [address] [address] [employer]: Sarath Olivera MD Eosinophils/100 WBC (Bld) 0 % Low 1-4 [facility] Comment on above: Performed By: #### B C #### [address] [address] [employer]: Sarath Olivera MD Immature granulocytes/100 WBC (Bld) 0 % Normal 0 [facility] Comment on above: Performed By: #### B C #### [address] [address] [employer]: Sarath Olivera MD Lymphocytes (Bld) [#/Vol] 1.01 10*3/uL Normal 1.0-4.8 [facility] Comment on above: Performed By: #### B C #### [address] [address] [employer]: Sarath Olivear MD Lymphocytes/100 WBC (Bld) 5 % Low 24-44 [facility] Comment on above: Performed By: #### B C #### [address] [address] [employer]: Sarath Olivera MD Monocytes (Bld) [#/Vol] 2.41 10*3/uL High 0.1-0.8 [facility] Comment on above: Performed By: #### B C #### [address] [address] [employer]: Sarath Olivera MD Monocytes/100 WBC (Bld) 12 % High 1-7 [facility] Comment on above: Performed By: #### B C #### [address] [address] [employer]: Sarath Olivera MD Morphology Manoj (Bld) [Interp] MACROCYTOSIS PRESENT Normal [facility] Comment on above: Performed By: #### B C #### [address] [address] [employer]: Sarath Olivera MD Neutrophil (Seg) 83 % High 36-66 [facility] Comment on above: Performed By: #### B C #### [address] [address] [employer]: Sarath Olivera MD Erythrocyte distribution width (RBC) [Ratio] 14.5 % High 11.8-14.4 [facility] Comment on above: Performed By: #### B C #### [address] [address] [employer]: Sarath Olivera MD Hematocrit (Bld) [Volume fraction] 34.4 % Low 36.3-47.1 [facility] Comment on above: Performed By: #### B C #### [address] [address] [employer]: Sarath Olivera MD Hemoglobin (Bld) [Mass/Vol] 10.2 g/dL Low 11.9-15.1 [facility] Comment on above: Performed By: #### B C #### [address] [address] [employer]: Sarath Olivera MD MCH (RBC) [Entitic mass] 31.2 pg Normal 25.2-33.5 [facility] Comment on above: Performed By: #### B C #### [address] [address] [employer]: Sarath Olivera MD MCHC (RBC) [Mass/Vol] 29.7 g/dL Normal 28.4-34.8 [facility] Comment on above: Performed By: #### B C #### [address] [address] [employer]: Sarath Olivera MD MCV (RBC) [Entitic vol] 105.2 fL High 82.6-102.9 [facility] Comment on above: Performed By: #### B C #### [address] [address] [employer]: Sarath Olivera MD NRBC Automated 0.0 per 100 WBC Normal 0.0 [facility] Comment on above: Performed By: #### B C #### [address] [address] [employer]: Sarath Olivera MD Platelet mean volume (Bld) [Entitic vol] 12.8 fL Normal 8.1-13.5 [facility] Comment on above: Performed By: #### B C #### [address] [address] [employer]: Sarath Olivera MD Platelets (Bld) [#/Vol] 126 10*3/uL Low 138-453 [facility] Comment on above: Performed By: #### B C #### [address] [address] [employer]: Sarath Olivera MD RBC (Bld) [#/Vol] 3.27 10*6/uL Low 3.95-5.11 [facility] Comment on above: Performed By: #### B C #### [address] [address] [employer]: Sarath Olivera MD WBC (Bld) [#/Vol] 20.1 10*3/uL High 3.5-11.3 [facility] Comment on above: Performed By: #### B C #### [address] [address] [employer]: Sarath Olivera MD CT CHEST ABDOMEN PELVIS [facility] 01-06-2024 CT CHEST ABDOMEN PELVIS WO [...] Pierre Cao MD 01/06/24 Final result Normal [facility] CT CYSTOGRAM W CONTRASTon CT CYSTOGRAM W [...] Jose Todd MD 01/06/24 Final result Normal [facility] CT HEAD WO CONTRASTon 2023 CT HEAD [...] Lucian Dee MD 01/06/24 Final result Normal [facility] Calcium, Ionicon 01-06-2024 Calcium [Moles/Vol] 1.14 mmol/L Normal 1.13-1.33 [facility] Comment on above: Performed By: #### B MP, IOCAL, CDP, PT, MG, SRAVANTHI ####[facility] [address] [place], [place] [id number] Lab Director: Sarath Olivera MD Calcium [Moles/Vol] 1.45 mmol/L High 1.13-1.33 [facility] Comment on above: Performed By: #### I OCAL, LACTIC, OHP ####[employer] [address] [place], [place] [id number] Lab Director: Sarath Olivera MD Calcium [Moles/Vol] 1.07 mmol/L Low 1.13-1.33 [facility] Comment on above: Performed By: #### B C #### [address] [address] [employer]: Sarath Olivera MD Calcium [Moles/Vol] 1.07 mmol/L Low 1.13-1.33 [facility] Comment on above: Performed By: #### I OCAL ####[address] [address] Lab Director: Sarath Olivera MD Calcium [Moles/Vol] 1.09 mmol/L Low 1.13-1.33 [facility] Comment on above: Performed By: #### B C #### [address] [address] [employer]: Sarath Olivera MD Creatinine,Random Uron 01-05 Creatinine [Mass/Vol] 155.0 mg/dL Normal 28.0-217.0 [facility] Comment on above: Performed By: #### U RNA, URCRE, CLARENCE ####[address] [address] Lab Director: Sarath Olivera MD Drug Scr, Abuse, Uron 2023 Fentanyl, Urine Sent to reference laboratory. Separate report to follow. Abnormal NEG [facility] Comment on above: Performed By: #### U RNA, URCRE, CLARENCE ####[address] [address] Lab Director: Sarath Olivera MD Interpretive Info Assay provides rapid clinical screening only. Presumptive positive results for Normal [facility] Comment on above: Result Comment: lega l purposes should be confirmed by another method. To request confirmation, please call the lab within 7 days of sample submission. Performed By: #### U RNA, URCRE, CLARENCE ####[address] [address] Lab Director: Sarath Olivera MD Opiate(s), Ur Positive Abnormal NEG [facility] Comment on above: Result Comment: Cuto ff: 300 ng/ml Performed By: #### U RNA, URCRE, CLARENCE ####[facility] [address] [place] [address] Lab Director: Sarath Olivera MD Oxycodone, Urine Sent to reference laboratory. Separate report to follow. Abnormal NEG [facility] Comment on above: Performed By: #### U RNA, URCRE, CLARENCE ####[facility] [address] [place] [address] Lab Director: Sarath Olivera MD Amphetamine(s),Ur Negative Normal NEG [facility] [place] [facility] Comment on above: Result Comment: Cuto ff: 1000 ng/mL Performed By: #### U RNA, URCRE, CLARENCE ####[facility] [address] [place] [address] Lab Director: Sarath Olivera MD Barbiturate(s),Ur Negative Normal NEG [facility] [place] [facility] Comment on above: Result Comment: Cuto ff: 200 ng/ml Performed By: #### U RNA, URCRE, CLARENCE ####[facility] [address] [place] [address] Lab Director: Sarath Olivera MD Benzodiazepine(s) Negative Normal NEG [facility] [place] [facility] Comment on above: Result Comment: Cuto ff: 200 ng/ml Performed By: #### U RNA, URCRE, CLARENCE ####[facility] [address] [place] [address] Lab Director: Sarath Olivera MD Cannabinoid(s),Ur Negative Normal NEG [facility] [place] [facility] Comment on above: Result Comment: Cuto ff: 50 ng/ml Performed By: #### U RNA, URCRE, CLARENCE ####[facility] [address] [place] [address] Lab Director: Sarath Olivera MD Cocaine Metabolite Negative Normal NEG [facility] Comment on above: Result Comment: Cuto ff: 300 ng/ml Performed By: #### U RNA, URCRE, CLARENCE ####[facility] [address] [place] [address] Lab Director: Sarath Olivera MD Methadone Ql (U) Negative Normal NEG [facility] Comment on above: Result Comment: Cuto ff: 300 ng/ml Performed By: #### U RNA, URCRE, CLARENCE ####[address] [address] Lab Director: Sarath Olivera MD Phencyclidine, Ur Negative Normal NEG [facility] [place] [facility] Comment on above: Result Comment: Cuto ff: 25 ng/ml Performed By: #### U RNA, URCRE, CLARENCE ####[facility] [address] [place] [address] Lab Director: Sarath Olivera MD FLUORO FOR SURGICAL PROCEDUR ESon 01-06-2024 FLUORO FOR SURGICAL PROCEDURES Radiology exam is complete. No Radiologist dictation. Please follow up with ordering provider. Final result Normal [facility] Gl Hemostasis TEG w/Lysison 01-06-2024 Fibrinogen, Func TEG 20.5 mm Normal 15.0-32.0 [facility] Comment on above: Performed By: #### D AU UAMIC #### [facility] [employer] [address] [place] [address] [employer]: Sarath Olivera MD LY30 (Lysis) TEG 0.4 % Normal 0.0-2.6 [facility] Comment on above: Performed By: #### D AU, UAMIC #### [facility] [employer] [address] [place] [address] [employer]: Sarath Olivera MD MA Rapid TEG 61.6 mm Normal 52.0-70 [facility] Comment on above: Performed By: #### D AU, UAMIC #### [address] [address] [employer]: Sarath Olivera MD R(Reaction Time) TEG 6.0 min Normal 4.6-9.1 [facility] Comment on above: Performed By: #### D AU, UAMIC #### [address] [address] [employer]: Sarath Olivera MD Fibrinogen, Func TEG 21.6 mm Normal 15.0-32.0 [facility] Comment on above: Performed By: #### B C #### [address] [address] [employer]: Sarath Olivera MD LY30 (Lysis) TEG 0.1 % Normal 0.0-2.6 [facility] Comment on above: Performed By: #### B C #### [address] [address] [employer]: Sarath Olivera MD MA Rapid TEG 62.3 mm Normal 52.0-70.0 [facility] Comment on above: Performed By: #### B C #### [address] [address] [employer]: Sarath Olivera MD R(Reaction Time) TEG 5.7 min Normal 4.6-9.1 [facility] Comment on above: Performed By: #### B C #### [address] [address] [employer]: Sarath Olivera MD Glucose (POC)on 01-06-2024 Glucose [Mass/Vol] 150 mg/dL High 74-100 [facility] Glucose [Mass/Vol] 146 mg/dL High 74-100 [facility] Glucose [Mass/Vol] 164 mg/dL High 74-100 [facility] Glucose,Whole Bloodon 2023 Glucose [Mass/Vol] 155 mg/dL High 65-105 [facility] Hemoglobin A1Con 01-06-2024 Glucose [Mass/Vol] 111 mg/dL Normal [facility] Comment on above: Result Comment: The ADA and AACC recommend providing the estimated average glucose result to permit better patient understanding of their HBA1c result. Performed By: #### D BOOKER UAMIC #### [employer] [address] [place] [address] [employer]: Sarath Olivera MD HbA1c (Bld) [Mass fraction] 5.5 % Normal 4.0-6.0 [facility] Comment on above: Performed By: #### D BOOKER UAMIC #### [facility] [address] [place] [address] [employer]: Sarath Olivera MD Hgb/Hcton 01-06-2024 Hematocrit (Bld) [Volume fraction] 29.1 % Low 36.3-47.1 [facility] Comment on above: Performed By: #### A LB, FT4, TSHX, GLYHGB, HH, VD25 ####[employer] [address] [place] [address] Lab Director: Sarath Olivera MD Hemoglobin (Bld) [Mass/Vol] 8.6 g/dL Low 11.9-15.1 [facility] Comment on above: Performed By: #### A LB, FT4, TSHX, GLYHGB, HH, VD25 ####[facility] [address] [place] [address] Lab Director: Sarath Olivera MD Lactate, Sepsison 01-06-2024 Lactic Acid,Sep Wbld 7.4 mmol/L High 0.5-1.9 [facility] Comment on above: Performed By: #### B C #### [facility] [address] [place] [address] [employer]: Sarath Olivera MD Lactic Acidon 01-06-2024 Lactic Acid,Whole Bl 2.8 mmol/L High 0.7-2.1 [facility] Comment on above: Performed By: #### I OCAL LACTIC, OHP ####[facility] [address] [place], [place] [id number] Lab Director: Sarath Olivera MD Lactic Acid,Whole Bl 1.8 mmol/L Normal 0.7-2.1 [facility] Comment on above: Performed By: #### B C #### [facility] [employer] [address] [place] [address] [employer]: Sarath Olivera MD Lactic Acid (POC)on 01-06-20 24 Lactate [Moles/Vol] 1.3 mmol/L Normal 0.56-1.39 [facility] Lactate [Moles/Vol] 1.5 mmol/L High 0.56-1.39 [facility] Lactate [Moles/Vol] 1.7 mmol/L High 0.56-1.39 [facility] Lactate [Moles/Vol] 7.2 mmol/L High 0.56-1.39 [facility] Liver Profileon 01-06-2024 Albumin [Mass/Vol] 3.0 g/dL Low 3.5-5.2 [facility] Comment on above: Performed By: #### L MARY ALCB #### [facility] [address] [place] [address] [employer]: Sarath Olivera MD Albumin/Glob Ratio 2.0 Normal 1.0-2.5 [facility] Comment on above: Performed By: #### L ACTMARILIN ALCB #### [employer] [address] [place] [address] [employer]: Sarath Olivera MD Alkaline Phos 61 U/L Normal 35-104 [facility] Comment on above: Performed By: #### L ACTMARILIN, ALCB #### [facility] [address] [place] [address] [employer]: Sarath Olivera MD ALT [Catalytic activity/Vol] 19 U/L Normal [address] [place] [address] Comment on above: Performed By: #### L ACTIC, ALCB #### [facility] [address] [place] [address] [employer]: Sarath Olivera MD AST [Catalytic activity/Vol] 62 U/L High 10-35 [facility] Comment on above: Performed By: #### L ACTIC, ALCB #### [facility] [employer] [address] [place] [address] [employer]: Sarath Olivera MD Bilirubin [Mass/Vol] 0.3 mg/dL Normal 0.00-1.20 [facility] Comment on above: Performed By: #### L ACTIC, ALCB #### [facility] [employer] [address] [place] [address] [employer]: Sarath Olivera MD Bilirubin, Indirect Can not be calculated Normal 0.0-1 .0 [facility] Comment on above: Performed By: #### L ACTIC, ALCB #### [facility] [employer] [address] [place] [address] [employer]: Sarath Olivera MD Bilirubin.indirect [Mass/Vol] mg/dL Normal 0.00-0.30 [facility] Comment on above: Performed By: #### L ACTIC, ALCB #### [facility] [employer] [address] [place] [address] [employer]: Sarath Olivera MD Globulin (S) [Mass/Vol] 1.8 g/dL Normal [facility] Comment on above: Performed By: #### L ACTIC, ALCB #### [facility] [employer] [address] [place] [address] [employer]: Sarath Olivera MD Protein [Mass/Vol] 4.8 g/dL Low 6.6-8.7 [facility] Comment on above: Performed By: #### L ACTIC, ALCB #### [facility] [address] [place] [address] [employer]: Sarath Olivera MD Magnesiumon 0 Magnesium [Mass/Vol] 1.9 mg/dL Normal 1.6-2.4 [facility] Comment on above: Performed By: #### B MP, IOCAL, CDP, PT, MG, SRAVANTHI ####[facility] [address] [place] [address])[phone] Director: Sarath Olivera MD Magnesium [Mass/Vol] 1.6 mg/dL Normal 1.6-2.4 [facility] Comment on above: Performed By: #### D AU, UAMIC #### [facility] [employer] [address] [place] [address] [employer]: Sarath Olivera MD Magnesium [Mass/Vol] 1.8 mg/dL Normal 1.6-2.4 [facility] Comment on above: Result Comment: QA F LAGS AND/OR RANGES MODIFIED BY DEMOGRAPHIC UPDATE ON 01/05 AT 0131 Performed By: #### B C #### [facility] [employer] [facility] [place] [address] [employer]: Sarath Olivera MD Open Heart Panelon 4 Jerrell Test INFORMATION NOT PROVIDED Normal [facility] Comment on above: Performed By: #### I OCAL, LACTIC, OHP ####[facility] [address] [place], [place] [phone] Director: Sarath Olivera MD Body Temp. 37.0 Normal [facility] Comment on above: Performed By: #### I OCAL, LACTIC, OHP ####[facility] [address] [place] [address] Lab Director: Sarath Olivera MD Carboxy Hgb 0.8 % Normal 0-5 [facility] Comment on above: Result Comment: Reference Range: Non-Smokers 0-2% Average Smoker 2-4% Heavy Smoker <10% Performed By: #### I OCAL, LACTIC, OHP ####[facility] [address] [place], [place] [phone] Director: Sarath Olivera MD Chloride [Moles/Vol] 116 mmol/L High 98-110 [facility] Comment on above: Performed By: #### I OCAL, LACTIC, OHP ####[facility] [address] [place], [place] [phone] Director: Sarath Olivera MD FIO2 50% Normal [facility] Comment on above: Performed By: #### I OCAL, LACTIC, OHP ####[facility] [address] [place], [place] [phone] Director: Sarath Olivera MD Glucose [Mass/Vol] 138 mg/dL High 65-105 [facility] Comment on above: Performed By: #### I OCAL, LACTIC, OHP ####[facility] [address] [place], [place] [phone])[phone] Director: Sarath Olivera MD HCO3 (Bld) [Moles/Vol] 19.3 mmol/L Low 22-27 [facility] Comment on above: Performed By: #### I OCAL, LACTIC, OHP ####[facility] [address] [place], [place] [phone] Director: Sarath Olivera MD Hematocrit (Bld) [Volume fraction] 25.5 % Low 36.3-47.1 [facility] Comment on above: Performed By: #### I OCAL, LACTIC, OHP ####[facility] [address] [place] [address] Lab Director: Sarath Olivera MD Hemoglobin (Bld) [Mass/Vol] 8.2 g/dL Low 11.9-15.1 [facility] Comment on above: Performed By: #### I OCAL, LACTIC, OHP ####[facility] [address] [place], [place] [phone] Director: Sarath Olivera MD Negative Base Excess 6.1 mmol/L High 0.0-2.0 [facility] Comment on above: Performed By: #### I OCAL, LACTIC, OHP ####[facility] [address] [place], [place] [phone] Director: Sarath Olivera MD Oxygen (Bld) [Partial pressure] 106.0 mm[Hg] High 75-95 [facility] Comment on above: Performed By: #### I OCAL, LACTIC, OHP ####[facility] [address] [place], [place] [phone] Director: Sarath Olivera MD Oxygen saturation in Blood 97.7 % Normal 94-100 [facility] Comment on above: Performed By: #### I OCAL, LACTIC, OHP ####[facility] [address] [place], [place] [phone] Director: Sarath Olivera MD pCO2 40.0 mmHg Normal 32-45 [facility] Comment on above: Performed By: #### I OCAL, LACTIC, OHP ####[facility] [address] [place], [place] [phone] Director: Sarath Olivera MD pH (Bld) 7.304 [pH] Low 7.350-7.450 [facility] Comment on above: Performed By: #### I OCAL, LACTIC, OHP ####[facility] [address] [place], [place] [phone] Director: Sarath Olivera MD Potassium [Moles/Vol] 4.6 mmol/L Normal 3.6-5.0 [facility] Comment on above: Performed By: #### I OCAL, LACTIC, OHP ####[facility] [address] [place] [address] Lab Director: Sarath Olivera MD Sodium [Moles/Vol] 142 mmol/L Normal 136-145 [facility] Comment on above: Performed By: #### I OCAL, LACTIC, OHP ####[address] [address] Lab Director: Sarath Olivera MD Jerrell Test INFORMATION NOT PROVIDED [facility] Comment on above: Performed By: #### B C #### [address] [address] [employer]: Sarath Olivera MD Body Temp. 36.0 Normal [facility] Comment on above: Performed By: #### B C #### [address] [address] [employer]: Sarath Olivera MD Carboxy Hgb 1.6 % Normal 0-5 [facility] Comment on above: Result Comment: Reference Range: Non-Smokers 0-2% Average Smoker 2-4% Heavy Smoker <10% Performed By: #### B C #### [address] [address] [employer]: Sarath Olivera MD Chloride [Moles/Vol] 115 mmol/L High 98-110 [facility] Comment on above: Performed By: #### B C #### [address] [address] [employer]: Sarath Olivera MD FIO2 70% Normal [facility] Comment on above: Performed By: #### B C #### [address] [address] [employer]: Sarath Olivera MD Glucose [Mass/Vol] 138 mg/dL High 65-105 [facility] Comment on above: Performed By: #### B C #### [address] [address] [employer]: Sarath Olivera MD HCO3 (Bld) [Moles/Vol] 17.8 mmol/L Low 22-27 [facility] Comment on above: Performed By: #### B C #### [address] [address] [employer]: Sarath Olivera MD Hematocrit (Bld) [Volume fraction] 25.6 % Low 36.3-47.1 [facility] Comment on above: Performed By: #### B C #### [address] [address] [employer]: Sarath Olivera MD Hemoglobin (Bld) [Mass/Vol] 8.2 g/dL Low 11.9-15.1 [facility] Comment on above: Performed By: #### B C #### [address] [address] [employer]: Sarath Olivera MD Negative Base Excess 8.4 mmol/L High 0.0-2.0 [facility] Comment on above: Performed By: #### B C #### [address] [address] [employer]: Sarath Olivera MD Oxygen (Bld) [Partial pressure] 102.0 mm[Hg] High 75-95 [facility] Comment on above: Performed By: #### B C #### [address] [address] [employer]: Sarath Olivera MD Oxygen saturation in Blood 96.8 % Normal 94-100 [facility] Comment on above: Performed By: #### B C #### [address] [address] [employer]: Sarath Olivera MD pCO2 42.6 mmHg Normal 32-45 [facility] Comment on above: Performed By: #### B C #### [address] [address] [employer]: Sarath Olivera MD pH (Bld) 7.246 [pH] Low 7.350-7.450 [facility] Comment on above: Performed By: #### B C #### [address] [address] [employer]: Sarath Olivera MD Potassium [Moles/Vol] 4.5 mmol/L Normal 3.6-5.0 [facility] Comment on above: Performed By: #### B C #### [address] [address] [employer]: Sarath Olivera MD Sodium [Moles/Vol] 140 mmol/L Normal 136-145 [facility] Comment on above: Performed By: #### B C #### [address] [address] [employer]: Sarath Olivera MD PTon 01-06-2024 INR Coag (PPP) [Relative time] 1.4 {INR} Normal [facility] Comment on above: Result Comment: Therapeutic Range: Moderate Anticoagulant Intensity: INR = 2.0-3.0 High Anticoagulant Intensity: INR = 2.5-3.5 Performed By: #### B MP, IOCAL, CDP, PT, MG, SRAVANTHI ####[address] [address] Lab Director: Sarath Olivera MD PT Coag (PPP) [Time] 17.3 s High 11.7-14.9 [facility] Comment on above: Performed By: #### B MP, IOCAL, CDP, PT, MG, SRAVANTHI ####[address] [address] [place] [address] Lab Director: Sarath Olivera MD INR Coag (PPP) [Relative time] 1.6 {INR} Normal [facility] Comment on above: Result Comment: Therapeutic Range: Moderate Anticoagulant Intensity: INR = 2.0-3.0 High Anticoagulant Intensity: INR = 2.5-3.5 Performed By: #### RIOS SANZ #### [facility] [address] [place] [address] [employer]: Sarath Olivera MD PT Coag (PPP) [Time] 18.4 s High 11.7-14.9 [facility] Comment on above: Performed By: #### L MELANY HERNANDEZB #### [facility] [address] [place] [address] [employer]: Sarath Olivera MD INR Coag (PPP) [Relative time] 1.5 {INR} Normal [facility] Comment on above: Result Comment: Therapeutic Range: Moderate Anticoagulant Intensity: INR = 2.0-3.0 High Anticoagulant Intensity: INR = 2.5-3.5 Performed By: #### Ashley CELESTE UAMIC #### [facility] [employer] [address] [place] [address] [employer]: Sarath Olivera MD PT Coag (PPP) [Time] 17.8 s High 11.7-14.9 [facility] Comment on above: Performed By: #### D BOOKER UAMIC #### [facility] [address] [place] [address] [employer]: Sarath Olivera MD Phosphorus, Inorg.on 024 Phosphorus, Inorg. 3.2 mg/dL Normal 2.5-4.5 [facility] Comment on above: Performed By: #### B MP, IOCAL, CDP, PT, MG, SRAVANTHI ####[facility] [address] [place] [address] Lab Director: Sarath Olivera MD Phosphorus, Inorg. 4.7 mg/dL High 2.5-4.5 [facility] Comment on above: Performed By: #### D AU, UAMIC #### [facility] [address] [place] [address] [employer]: Sarath Olivera MD Phosphorus, Inorg. 4.7 mg/dL High 2.5-4.5 [facility] Comment on above: Performed By: #### B C #### [facility] [employer] [facility] [place] [address] [employer]: Sarath Olivera MD Sodium, Random Uron 01-06-20 24 Sodium (U) [Moles/Vol] 25 mmol/L Normal [facility] Comment on above: Result Comment: No n ormal range established. Performed By: #### U RNA, URCRE, CLARENCE ####[facility] [address] [place] [address] Lab Director: Sarath Olivera MD TSH w/reflex to FT4on 2023 Thyroid Stim. Horm. 3.13 uIU/mL Normal 0.27-4.20 [facility] Comment on above: Performed By: #### A LB, FT4, TSHX, GLYHGB, HH, VD25 ####[facility] [address] [place] [address] Lab Director: Sarath Olivera MD Thyroxine, Freeon 01-06-2024 Thyroxine, Free 0.9 ng/dL Low 0.92-1.68 [facility] Comment on above: Performed By: #### A LB, FT4, TSHX, GLYHGB, HH, VD25 ####[facility] [address] [place] [address] Lab Director: Sarath Olivera MD Troponinon 01-06-2024 Troponin, High Sens 114 ng/L Critically high 0-14 [facility] Comment on above: Result Comment: High Sensitivity Troponin values cannot be compared with other Troponin methodologies. Performed By: #### L MELANY HERNANDEZB #### [facility] [employer] [address] [place] [address] [employer]: Sarath Olivera MD Type + Screenon 01-06-2024 Type + Screen Sample Expiration 01/08/2024,2359 Arm Band Number [id number] ABO/Rh(D) O POSITIVE Antibody Screen NEGATIVE Unit Number [id number] Blood Component Type Leukocyte Reduced Red Cell Unit Division 00 Status of Unit TRANSFUSED Transfusion Status OK TO TRANSFUSE Crossmatch Result COMPATIBLE Unit Number [id number] Blood Component Type Leukocyte Reduced Red Cell Unit Division 00 Status of Unit TRANSFUSED Transfusion Status OK TO TRANSFUSE Crossmatch Result COMPATIBLE Normal [facility] Comment on above: Performed By: #### B C #### [facility] [employer] [address] [place] [address] [employer]: Sarath Olivera MD Vitamin B12on 01-06-2024 Cobalamin (Vitamin B12) [Mass/Vol] 253 pg/mL Normal 232-1245 [facility] Comment on above: Performed By: #### B C #### [facility] [employer] [address] [place] [address] [employer]: Sarath Olivera MD Vitamin D 25 OHon 01-06-2024 Vitamin D 25 [place] 34.7 ng/mL Normal 30.0-100.0 [facility] Comment on above: Result Comment: Reference Range: Vitamin D status Range Deficiency <20 ng/mL Mild Deficiency 20-30 ng/mL Sufficiency 30-100 ng/mL Toxicity >100 ng/mL Performed By: #### D AU, UAMIC #### [address] [address] [employer]: Sarath Olivera MD Vitamin D 25 [place] 34.3 ng/mL Normal 30.0-100.0 [facility] Comment on above: Result Comment: Reference Range: Vitamin D status Range Deficiency <20 ng/mL Mild Deficiency 20-30 ng/mL Sufficiency 30-100 ng/mL Toxicity >100 ng/mL Performed By: #### L ACTIC, ALCB #### [facility] [employer] [facility] [place] [phone] [employer]: Sarath Olivera MD XR CHEST PORTABLEon 01-06-20 XR CHEST PORTABLE EXAMINATION: ONE XRAY VIEW [...] Chevy Parra MD 01/06/24 Final result Normal [facility] XR CHEST PORTABLE EXAMINATION: ONE XRAY VIEW [...] Concepción Godoy MD 01/06/24 Final result Normal [facility] XR FEMUR RIGHT (MIN 2 VIEWS) on [...] Chevy Parra MD 01/06/24 Final result Normal [facility] XR SHOULDER LEFT (MIN 2 VIEW S)on [...] Chevy Parra MD 01/06/24 Final result Normal [facility] Basic Metabolic Profon 01-04 Anion gap [Moles/Vol] 16 mmol/L Normal 9-16 [facility] Comment on above: Performed By: #### D AU, UAMIC #### [facility] [employer] [facility] [place] [address] [employer]: Sarath Olivera MD Calcium [Mass/Vol] 6.3 mg/dL Low 8.6-10.4 [facility] Comment on above: Performed By: #### D AU, UAMIC #### [facility] [address] [place] [address] [employer]: Sarath Olivera MD Chloride [Moles/Vol] 115 mmol/L High 98-107 [facility] Comment on above: Performed By: #### D AU, UAMIC #### [facility] [address] [place] [address] [employer]: Sarath Olivera MD CO2 [Moles/Vol] 13 mmol/L Low 20-31 [facility] Comment on above: Performed By: #### Ashley CELESTE, UAMIC #### [facility] [address] [place] [address] [employer]: Sarath Olivera MD Creatinine [Mass/Vol] 1.3 mg/dL High 0.50-0.90 [facility] Comment on above: Performed By: #### Ashley CELESTE, UAMIC #### [address] [address] [employer]: Sarath Olivera MD GFR/1.73 sq M.predicted among non-blacks MDRD (S/P/Bld) [Vol rate/Area] 29 mL/min/{1.73_m2} Low >60 [facility] Comment on above: Result Comment: These results [...] renal tubular secretion. Performed By: #### Ashley AU, UAMIC #### [address] [address] [employer]: Sarath Olivera MD Glucose [Mass/Vol] 174 mg/dL High 74-99 [facility] Comment on above: Performed By: #### Ashley CELESTE UAMIC #### [facility] [employer] [address] [place] [address] [employer]: Sarath Olivera MD Potassium [Moles/Vol] 3.4 mmol/L Low 3.7-5.3 [facility] Comment on above: Result Comment: SPEC IMEN SLIGHTLY HEMOLYZED, RESULTS MAY BE ADVERSELY AFFECTED. Performed By: #### Ashley CELESTE UAMIC #### [facility] [employer] [address] [place] [address] [employer]: Sarath Olivera MD Sodium [Moles/Vol] 144 mmol/L Normal 136-145 [facility] Comment on above: Performed By: #### Ashley CELESTE UAMIC #### [facility] [employer] [address] [place] [address] [employer]: Sarath Olivera MD Urea nitrogen [Mass/Vol] 23 mg/dL Normal 8-23 [facility] Comment on above: Performed By: #### Ashley CELESTE UAMIC #### [facility] [employer] [address] [place] [address] [employer]: Sarath Olivera MD CBCon 01-05-2024 Erythrocyte distribution width (RBC) [Ratio] 14.4 % Normal 11.8-14.4 [facility] Comment on above: Performed By: #### B C #### [facility] [employer] [address] [place] [address] [employer]: Sarath Olivera MD Hematocrit (Bld) [Volume fraction] 31.8 % Low 36.3-47.1 [facility] Comment on above: Performed By: #### B C #### [facility] [employer] [address] [place] [address] [employer]: Sarath Olivera MD Hemoglobin (Bld) [Mass/Vol] 9.9 g/dL Low 11.9-15.1 [facility] Comment on above: Performed By: #### B C #### [address] [address] [employer]: Sarath Olivera MD MCH (RBC) [Entitic mass] 31.2 pg Normal 25.2-33.5 [facility] Comment on above: Performed By: #### B C #### [address] [address] [employer]: Sarath Olivera MD MCHC (RBC) [Mass/Vol] 31.1 g/dL Normal 28.4-34.8 [facility] Comment on above: Performed By: #### B C #### [address] [address] [employer]: Sarath Olivera MD MCV (RBC) [Entitic vol] 100.3 fL Normal 82.6-102.9 [facility] Comment on above: Performed By: #### B C #### [address] [address] [employer]: Sarath Olivera MD NRBC Automated 0.0 per 100 WBC Normal 0.0 [facility] Comment on above: Performed By: #### B C #### [address] [address] [employer]: Sarath Olivera MD Platelet mean volume (Bld) [Entitic vol] 12.8 fL Normal 8.1-13.5 [facility] Comment on above: Performed By: #### B C #### [address] [address] [employer]: Sarath Olivera MD Platelets (Bld) [#/Vol] 146 10*3/uL Normal 138-453 [facility] Comment on above: Performed By: #### B C #### [address] [address] [employer]: Sarath Olivera MD RBC (Bld) [#/Vol] 3.17 10*6/uL Low 3.95-5.11 [facility] Comment on above: Performed By: #### B C #### [facility] [address] [place], [place] [phone] [employer]: Sarath Olivera MD WBC (Bld) [#/Vol] 22.0 10*3/uL High 3.5-11.3 [facility] Comment on above: Performed By: #### B C #### [facility] [address] [place], [place] [id number] [employer]: Sarath Olivera MD CT CHEST ABDOMEN PELVIS WO C ONTRASTon 01-05-2024 CT CHEST ABDOMEN PELVIS WO CONTRAST [...] Amol Martínez MD 01/05/24 Final result Normal [facility] CT LUMBAR SPINE BONY RECONST RUCTIONon 01-05-2024 [...] Amol Martínez MD 01/05/24 Final result Normal [facility] CT THORACIC SPINE BONY RECON STRUCTIONon 01-05-2024 [...] Amol Martínez MD 01/05/24 Final result Normal [facility] Creatine Kinaseon 01-05-2024 CK [Catalytic activity/Vol] 725 U/L High 26-192 [facility] Comment on above: Performed By: #### Ashley CELESTE UAMIC #### [facility] [address] [place] [address] [employer]: Sarath Olivera MD Drug Scr, Abuse, Uron 2023 Fentanyl, Urine Sent to reference laboratory. Separate report to follow. Abnormal NEG [facility] Comment on above: Result Comment: OZZIE CHRISTINE NOTIFIED (Positive cutoff 5 ng/ml) Performed By: #### Ashley CELESTE UAMIC #### [facility] [employer] [address] [place] [phone] [employer]: Sarath Olivera MD Oxycodone, Urine Sent to reference laboratory. Separate report to follow. Abnormal NEG [facility] Comment on above: Result Comment: OZZIE CHRISTINE NOTIFIED (Positive cutoff 100 ng/mL) Performed By: #### Ashley AU, UAMIC #### [facility] [address] [place] [address] [employer]: Sarath Olivera MD Interpretive Info Assay provides rapid clinical screening only. Presumptive positive results for Normal [facility] Comment on above: Result Comment: lega l purposes should be confirmed by another method. To request confirmation, please call the lab within 7 days of sample submission. Performed By: #### Ashley AU, UAMIC #### [facility] [address] [place] [address] [employer]: Sarath Olivera MD Opiate(s), Ur Positive Abnormal NEG [facility] Comment on above: Result Comment: Cuto ff: 300 ng/ml Performed By: #### Ashley AU, UAMIC #### [facility] [address] [place] [address] [employer]: Sarath Olivera MD Amphetamine(s),Ur Negative Normal NEG [facility] [place] [facility] Comment on above: Result Comment: Cuto ff: 1000 ng/mL Performed By: #### Ashley AU, UAMIC #### [facility] [address] [place] [address] [employer]: Sarath Olivera MD Barbiturate(s),Ur Negative Normal NEG [facility] [place] [facility] Comment on above: Result Comment: Cuto ff: 200 ng/ml Performed By: #### Ashley AU, UAMIC #### [facility] [address] [place] [address] [employer]: Sarath Olivera MD Benzodiazepine(s) Negative Normal NEG [facility] [place] [facility] Comment on above: Result Comment: Cuto ff: 200 ng/ml Performed By: #### D AU, UAMIC #### [facility] [address] [place] [address] [employer]: Sarath Olivera MD Cannabinoid(s),Ur Negative Normal NEG [facility] [place] [facility] Comment on above: Result Comment: Cuto ff: 50 ng/ml Performed By: #### Ashley AU, UAMIC #### [address] [address] [employer]: Sarath Olivera MD Cocaine Metabolite Negative Normal NEG [facility] Comment on above: Result Comment: Cuto ff: 300 ng/ml Performed By: #### Ashley CELESTE, UAMIC #### [address] [address] [employer]: Sarath Olivera MD Methadone Ql (U) Negative Normal NEG [facility] Comment on above: Result Comment: Cuto ff: 300 ng/ml Performed By: #### Ashley CELESTE, UAMIC #### [address] [address] [employer]: Sarath Olivera MD Phencyclidine, Ur Negative Normal NEG [facility] [place] [facility] Comment on above: Result Comment: Cuto ff: 25 ng/ml Performed By: #### Ashley CELESTE, UAMIC #### [address] [address] [employer]: Sarath Olivera MD Ethanol Alcoholon 01-05-2024 Ethanol [Mass/Vol] mg/dL Normal <10 [facility] Comment on above: Performed By: #### B C #### [address] [address] [employer]: Sarath Olivera MD Ethanol percent <0.010 Normal <0.010 [facility] Comment on above: Performed By: #### B C #### [facility] [employer] [address] [place] [address] [employer]: Sarath Olivera MD Global Hemostasis(TEG 6S)on 01-05-2024 Angle TEG 75.0 deg Normal 63.0-78.0 [facility] Comment on above: Performed By: #### B C #### [address] [address] [employer]: Sarath Olivera MD Fibrinogen, Func TEG 23.0 mm Normal 15.0-32.0 [facility] Comment on above: Performed By: #### B C #### [address] [address] [employer]: Sarath Olivera MD K (Kinetics) TEG 1.1 min Normal 0.8-2.1 [facility] Comment on above: Performed By: #### B C #### [address] [address] [employer]: Sarath Olivera MD MA (Max Clot) TEG 65.4 mm Normal 52.0-69.0 [facility] [place] [facility] Comment on above: Performed By: #### B C #### [address] [address] [employer]: Sarath Olivera MD MA Rapid TEG 65.2 mm Normal 52.0-70 [facility] Comment on above: Performed By: #### B C #### [address] [address] [employer]: Sarath Olivera MD R TEG w/Hep 4.6 min Normal 4.3-8.3 [facility] Comment on above: Performed By: #### B C #### [address] [address] [employer]: Sarath Olivera MD R(Reaction Time) TEG 4.7 min Normal 4.6-9.1 [facility] Comment on above: Performed By: #### B C #### [address] [address] [employer]: Sarath Olivera MD Lactate, Sepsison 01-05-2024 Lactic Acid,Sep Wbld 7.9 mmol/L High 0.5-1.9 [facility] Comment on above: Performed By: #### Ashley CELESTE UAMIC #### [address] [address] [employer]: Sarath Olivera MD Lactic Acidon 01-05-2024 Lactic Acid,Whole Bl 7.0 mmol/L High 0.7-2.1 [facility] Comment on above: Performed By: #### L ACTIC, ALCB #### [facility] [address] [place] [address] [employer]: Sarath Olivera MD Myoglobinon 01-05-2024 Myoglobin [Mass/Vol] 3228 ng/mL High 25-58 [facility] Comment on above: Performed By: #### Ashley CELESTE UAMIC #### [address] [address] [employer]: Sarath Olivera MD PTon 01-05-2024 INR Coag (PPP) [Relative time] 1.4 {INR} Normal [facility] Comment on above: Result Comment: Therapeutic Range: Moderate Anticoagulant Intensity: INR = 2.0-3.0 High Anticoagulant Intensity: INR = 2.5-3.5 Performed By: #### B C #### [address] [address] [employer]: Sarath Olivera MD PT Coag (PPP) [Time] 16.6 s High 11.7-14.9 [facility] Comment on above: Performed By: #### B C #### [address] [address] [employer]: Sarath Olivera MD Trauma Profileon 01-05-2024 Anion gap [Moles/Vol] 15 mmol/L Normal 9-16 [facility] Comment on above: Performed By: #### B C #### [address] [address] [employer]: Sarath Olivera MD Chloride [Moles/Vol] 111 mmol/L High 98-107 [facility] Comment on above: Performed By: #### B C #### [address] [address] [employer]: Sarath Olivera MD CO2 [Moles/Vol] 17 mmol/L Low 20-31 [facility] Comment on above: Performed By: #### B C #### [address] [address] [employer]: Sarath Olivera MD Creatinine [Mass/Vol] 1.5 mg/dL High 0.50-0.90 [facility] Comment on above: Performed By: #### B C #### [address] [address] [employer]: Sarath Olivera MD Ethanol [Mass/Vol] mg/dL Normal <10 [facility] Comment on above: Performed By: #### B C #### [address] [address] [employer]: Sarath Olivera MD Ethanol percent <0.010 Normal <0.010 [facility] Comment on above: Performed By: #### B C #### [address] [address] [employer]: Sarath Olivera MD GFR/1.73 sq M.predicted among non-blacks MDRD (S/P/Bld) [Vol rate/Area] 23 mL/min/{1.73_m2} Low >60 [facility] Comment on above: Result Comment: These results [...] secretion. Performed By: #### B C #### [address] [address] [employer]: Sarath Olivera MD Glucose [Mass/Vol] 191 mg/dL High 74-99 [facility] Comment on above: Performed By: #### B C #### [address] [address] [employer]: Sarath Olivera MD Potassium [Moles/Vol] 3.6 mmol/L Low 3.7-5.3 [facility] Comment on above: Performed By: #### B C #### [address] [address] [employer]: Sarath Olivera MD Sodium [Moles/Vol] 143 mmol/L Normal 136-145 [facility] Comment on above: Performed By: #### B C #### [address] [address] [employer]: Sarath Olivera MD Urea nitrogen [Mass/Vol] 26 mg/dL High 8-23 [facility] Comment on above: Performed By: #### B C #### [address] [address] [employer]: Sarath Olivera MD HCG Screen, Blood Negative Normal NEG [facility] Comment on above: Result Comment: Spec imens with hCG levels near the threshold of the test (25 mIU/mL) may give a negative or indeterminate result. In such cases, another test should be performed with a new specimen in 48-72 hours. If early is suspected clinically in this setting, correlation with quantitative serum b-hCG level is suggested. [facility] has confirmed the use of plasma for this test. This has not been cleared or approved by the U.[place]. Food and Drug Administration. The FDA has determined that such clearance is not necessary. Performed By: #### B C #### [address] [address] [employer]: Sarath Olivera MD aPTT Coag (Bld) [Time] 28.7 s Normal 23.0-36.5 [facility] Comment on above: Result Comment: IV Heparin Therapy Range: 66.0-92.0 sec Performed By: #### B C #### [address] [address] [employer]: Sarath Olivera MD INR Coag (PPP) [Relative time] 4.4 {INR} Normal [facility] Comment on above: Result Comment: Therapeutic Range: Moderate Anticoagulant Intensity: INR = 2.0-3.0 High Anticoagulant Intensity: INR = 2.5-3.5 Performed By: #### B C #### [address] [address] [employer]: Sarath Olivera MD PT Coag (PPP) [Time] 40.5 s High 11.7-14.9 [facility] Comment on above: Performed By: #### B C #### [address] [address] [employer]: Sarath Olivera MD Body Temp. 37.0 Normal [facility] Comment on above: Performed By: #### B C #### [address] [address] [employer]: Sarath Olivera MD Carboxy Hgb 2.7 % Normal 0-5 [facility] Comment on above: Result Comment: Reference Range: Non-Smokers 0-2% Average Smoker 2-4% Heavy Smoker <10% Performed By: #### B C #### [address] [address] [employer]: Sarath Olivera MD Erythrocyte distribution width (RBC) [Ratio] 14.4 % Normal 11.8-14.4 [facility] Comment on above: Performed By: #### B C #### [address] [address] [employer]: Sarath Olivera MD FIO2 INFORMATION NOT PROVIDED [facility] Comment on above: Performed By: #### B C #### [address] [address] [employer]: Sarath Olivera MD HCO3 (Bld) [Moles/Vol] 17.2 mmol/L Low 24-30 [facility] Comment on above: Performed By: #### B C #### [address] [address] [employer]: Sarath Olivera MD Hematocrit (Bld) [Volume fraction] 32.6 % Low 36.3-47.1 [facility] Comment on above: Performed By: #### B C #### [address] [address] [employer]: Sarath Olivera MD Hemoglobin (Bld) [Mass/Vol] 9.8 g/dL Low 11.9-15.1 [facility] Comment on above: Performed By: #### B C #### [address] [address] [employer]: Sarath Olivera MD MCH (RBC) [Entitic mass] 31.4 pg Normal 25.2-33.5 [facility] Comment on above: Performed By: #### B C #### [address] [address] [employer]: Sarath Olivera MD MCHC (RBC) [Mass/Vol] 30.1 g/dL Normal 28.4-34.8 [facility] Comment on above: Performed By: #### B C #### [address] [address] [employer]: Sarath Olivera MD MCV (RBC) [Entitic vol] 104.5 fL High 82.6-102.9 [facility] Comment on above: Performed By: #### B C #### [address] [address] [employer]: Sarath Olivera MD Negative Base Excess 9.9 mmol/L High 0.0-2.0 [facility] Comment on above: Performed By: #### B C #### [address] [address] [employer]: Sarath Olivera MD NRBC Automated 0.0 per 100 WBC Normal 0.0 [facility] Comment on above: Performed By: #### B C #### [address] [address] [employer]: Sarath Olivera MD Oxygen saturation in Blood 65.9 % Normal 60.0-85.0 [facility] Comment on above: Performed By: #### B C #### [address] [address] [employer]: Sarath Olivera MD pCO2 45.1 mm Hg Normal 39-55 [facility] Comment on above: Performed By: #### B C #### [address] [address] [employer]: Sarath Olivera MD pH (Bld) 7.205 [pH] Critically low 7.320-7.420 [facility] Comment on above: Performed By: #### B C #### [address] [address] [employer]: Sarath Olivera MD Platelet mean volume (Bld) [Entitic vol] 12.6 fL Normal 8.1-13.5 [facility] Comment on above: Performed By: #### B C #### [address] [place] [address] [employer]: Sarath Olivera MD Platelets (Bld) [#/Vol] 140 10*3/uL Normal 138-453 [facility] Comment on above: Performed By: #### B C #### [address] [address] [employer]: Sarath Olivera MD pO2 41.3 mm Hg Normal 30-50 [facility] Comment on above: Performed By: #### B C #### [address] [address] [employer]: Sarath Olivera MD RBC (Bld) [#/Vol] 3.12 10*6/uL Low 3.95-5.11 [facility] Comment on above: Performed By: #### B C #### [address] [address] [employer]: Sarath Olivera MD WBC (Bld) [#/Vol] 22.6 10*3/uL High 3.5-11.3 [facility] Comment on above: Performed By: #### B C #### [address] [address] [employer]: Sarath Olivera MD Blood Bank BILL FOR SERVICES PERFORMED Normal [facility] Comment on above: Performed By: #### B C #### [address] [address] [employer]: Sarath Olivera MD Urinalysis w/ Microon 2023 Bilirubin, SemiQt,Ur Negative Abnormal NEG [facility] Comment on above: Performed By: #### D AU, UAMIC #### [address] [address] [employer]: Sarath Olivera MD Casts 5 TO 10 Normal 0-2 [facility] Comment on above: Result Comment: HYAL INE Performed By: #### Ashley AU, UAMIC #### [address] [address] [employer]: Sarath Olivera MD Epithelial cells LM Ql (Urine sed) 20 TO 50 Normal 0-5 [facility] Comment on above: Performed By: #### Ashley CELESTE, UAMIC #### [address] [address] [employer]: Sarath Olivera MD Mucus Strands 1+ Normal [facility] Comment on above: Performed By: #### Ashley CELESTE, UAMIC #### [address] [address] [employer]: Sarath Olivera MD Urine RBC's 0 TO 2 Normal 0-2 [facility] Comment on above: Performed By: #### Ashley CELESTE, UAMIC #### [facility] [employer] [address] [place] [address] [employer]: Sarath Olivera MD Urine WBC's 20 TO 50 Normal 0-5 [facility] Comment on above: Performed By: #### Ashley AU, UAMIC #### [address] [address] [employer]: Sarath Olivera MD Blood, Urine MODERATE Abnormal NEG [facility] Comment on above: Performed By: #### Ashley AU, UAMIC #### [facility] [employer] [address] [place] [address] [employer]: Sarath Olivera MD Clarity (U) Turbid Abnormal CLEAR [facility] Comment on above: Performed By: #### Ashley AU, UAMIC #### [facility] [employer] [address] [place] [address] [employer]: Sarath Olivera MD Color (U) Dark Yellow Abnormal YEL [facility] Comment on above: Performed By: #### Ashley AU, UAMIC #### [address] [address] [employer]: Sarath Olivera MD Glucose Ql (U) TRACE Abnormal NEG [facility] Comment on above: Performed By: #### Ashley AU, UAMIC #### [address] [address] [employer]: Sarath Olivera MD Ketones Ql (U) Negative Normal NEG [facility] Comment on above: Performed By: #### Ashley AU, UAMIC #### [address] [address] [employer]: Sarath Olivera MD Leukocyte esterase Test strip Ql (U) TRACE Abnormal NEG [facility] Comment on above: Performed By: #### Ashley CELESTE, UAMIC #### [address] [address] [employer]: Sarath Olivera MD Nitrite,Ur Negative Normal NEG [facility] Comment on above: Performed By: #### Ashley CELESTE, UAMIC #### [address] [address] [employer]: Sarath Olivera MD PH,Ur 5.0 Normal 5.0-8.0 [facility] Comment on above: Performed By: #### Ashley CELESTE, UAMIC #### [address] [address] [employer]: Sarath Olivera MD Protein Ql (U) 2+ mg/dL Abnormal NEG [facility] Comment on above: Performed By: #### Ashley AU, UAMIC #### [address] [address] [employer]: Sarath Olivera MD Spec. Snowflake,Ur 1.022 Normal 1.005-1.030 [facility] Comment on above: Performed By: #### D AU, UAMIC #### [facility] [address] [place] [address] [employer]: Sarath Olivera MD Urobilinogen,Ur Normal Normal 0.0-1.0 [facility] Comment on above: Performed By: #### D AU, UAMIC #### [facility] [employer] [address] [place] [address] [employer]: Sarath Olivera MD XR ELBOW LEFT (MIN [...] Deon Webb MD 01/05/24 Final result Normal [facility] XR FEMUR LEFT (MIN 2 VIEWS)o n [...] Deon Webb MD 01/05/24 Final result Normal [facility] XR FEMUR RIGHT (MIN 2 VIEWS) on [...] Deon Webb MD 01/05/24 Final result Normal [facility] XR FEMUR RIGHT (MIN 2 VIEWS) EXAMINATION: [...] Deon Webb MD 01/05/24 Final result Normal [facility] XR KNEE RIGHT (1-2 VIEWS)on 01-05-2024 XR [...] Deon Webb MD 01/05/24 Final result Normal [facility] XR KNEE RIGHT (3 VIEWS)on XR KNEE [...] Deon Webb MD 01/05/24 Final result Normal [facility] XR SHOULDER LEFT (MIN 2 VIEW S)on [...] Deon Webb MD 01/05/24 Final result Normal [facility] CBC AUTO DIFFon 12-10-2022 BASO # 0.0 103/ul Normal 0.0-0.1 [facility] Comment on above: Performed By: #### C BC ####[facility] [address] [place] [id number]. Sofiya Lozano Basophils/100 WBC (Bld) 0.4 % Normal 0.2-2.0 [facility] Comment on above: Performed By: #### C BC ####[facility] Rdvunrmhee[address] [place] [address]Dr. Yilan Lozano EO # 0.0 103/ul Normal 0.0-0.7 [facility] Comment on above: Performed By: #### C BC ####[facility] G[address] [place] [id number]. Yilan Lozano Eosinophils/100 WBC (Bld) 0.8 % Critically low 0.9-7.0 [facility] Comment on above: Performed By: #### C BC ####[facility] Kirpf[address] [place] [address]Dr. Sofiya Lozano Erythrocyte distribution width (RBC) [Ratio] 13.6 % Normal 11.0-15.0 [facility] Comment on above: Performed By: #### C BC ####[facility] G[address] [place], [place] [address]Dr. Sofiya Lozano Hematocrit (Bld) [Volume fraction] 41.0 % Normal 36.0-48.0 [facility] Comment on above: Performed By: #### C BC ####[facility] Uptolvdfts[address] [place], [place] [address]Dr. Sofiya Lozano Hemoglobin (Bld) [Mass/Vol] 13.0 g/dL Normal 12.0-16.0 [facility] Comment on above: Performed By: #### C BC ####[facility] Hnttm[address] [place], [place] [address]Dr. Sofiya Lozano IG # 0.00 10e3/ul Normal 0.00-0.03 [facility] Comment on above: Performed By: #### C BC ####[facility] Xganafvsyq[address] [place], [place] [address]Dr. Sofiya Lozano IG % 0.0 % Normal 0.0-0.5 [facility] Comment on above: Performed By: #### C BC ####[facility] W[address]eggl[address]ftc[address] [place], [place] [address]Dr. Sofiya Lozano LYMPH # 1.5 103/ul Normal 1.2-3.8 [facility] Comment on above: Performed By: #### C BC ####[facility] Onkphmxmpv[address] [place], [place] [address]Dr. Sofiya Lozano Lymphocytes/100 WBC (Bld) 27.9 % Normal 20.5-60.0 [facility] Comment on above: Performed By: #### C BC ####[facility] Gehysongmb[address] [place], [place] [address]Dr. Sofiya Lozano MANUAL DIFF REQ NO Normal [facility] Comment on above: Performed By: #### C BC ####[facility] Dnnclxjnpy[address] [place] [phone]. Sofiya Lozano MCH (RBC) [Entitic mass] 30.0 pg Normal 26.7-34.0 [facility] Comment on above: Performed By: #### C BC ####[facility] Xqkhfgleaf[address] [place] [address]Dr. Sofiya Lozano MCHC (RBC) [Mass/Vol] 31.7 g/dL Normal 29.9-35.2 [facility] Comment on above: Performed By: #### C BC ####[facility] Mnltimnihc[address] [place] [address]Dr. Sofiya Blake MCV (RBC) [Entitic vol] 94.5 fL Normal 81.0-99.0 [facility] Comment on above: Performed By: #### C BC ####[facility] Wurdqvvs[address] [place], [place] [address]Dr. Sofiya Lozano MONO # 0.5 103/ul Normal 0.3-0.8 [facility] Comment on above: Performed By: #### C BC ####[facility] Ssnuuafric[address] [place], [place] [address]Dr. Landyjonathan Lozano Monocytes/100 WBC (Bld) 8.6 % Normal 1.7-12.0 [facility] Comment on above: Performed By: #### C BC ####[facility] Dakpelzzfn[address] [place], [place] [address]Dr. Landyjonathan Lozano NEUT # 3.3 103/ul Normal 1.4-6.5 [facility] Comment on above: Performed By: #### C BC ####[facility] Ebayfr[address]cd[address] [place], [place] [address]Dr. Sofiya Lozano Neutrophils/100 WBC (Bld) 62.3 % Normal 43.0-75.0 [facility] Comment on above: Performed By: #### C BC ####[facility] Bosoogxlys[address] [place], [place] [address]Dr. Sofiya Lozano Platelet mean volume (Bld) [Entitic vol] 11.9 fL Normal 9.5-13.5 [facility] Comment on above: Performed By: #### C BC ####[facility] [address]mpw[address] [place], [place] [address]Ry. Sofiya Lozano PLT 166 103/ul Normal 150-450 [facility] Comment on above: Performed By: #### C BC ####[facility] Hbjmhcfjpk9531 [place], [place] [address]Fx. Sofiya Lozano RBC 4.34 106/ul Normal 4.20-5.40 [facility] Comment on above: Performed By: #### C BC ####[facility] Laruohlodn6162 [place], [place] [address]Mf. Sofiya Lozano WBC 5.2 103/ul Normal 4.0-11.0 [facility] Comment on above: Performed By: #### C BC ####[facility] Ultodxtfxk3835 [place], [place] [address]Mx. Landyjonathan Blake FREE THYROXINE INDEX T7on FTI 2.50 Normal 1.30-4.50 [facility] Comment on above: Performed By: #### C MP, TSH, LIPID, T7 ####[facility] Xxqzsoazzj3792 [place], [place] [address]Ar. Sofiya Blake T3U 32.0 % Normal 30.0-39.0 [facility] Comment on above: Performed By: #### C MP, TSH, LIPID, T7 ####[facility] Dzwrvwuqtv16[address] [place], [place] [address]Qy. Sofiya Blake T4 [Mass/Vol] 7.80 ug/dL Normal 4.80-13.90 [facility] Comment on above: Performed By: #### C MP, TSH, LIPID, T7 ####[facility] Adkhw[address]ij[address] [place], [place] [address]Vn. Sofiya Blake GLYCOHEMOGLOBIN A1Con 2022 ADA RECOMMENDATION SEE BELOW Normal [facility] Comment on above: Result Comment: ADA RECOMMENDED LIMIT 4.0 - 6.0 ADA THERAPEUTIC TARGET < 7.0 ACTION SUGGESTED > 7.0 Performed By: #### A 1C #### [facility] [address] [place], [place] [address] Dr. Sofiya Lozano Glucose [Mass/Vol] 117 mg/dL Normal [facility] Comment on above: Performed By: #### A 1C #### [facility] [address] [place] [address] [address] Sofiya Lozano HbA1c (Bld) [Mass fraction] 5.7 % Normal 4.5-6.2 [facility] Comment on above: Performed By: #### A 1C #### [facility] [address] [place] [address] [address] Sofiya Lozano LIPID PROFILEon 12-10-2022 CHOL-HDL RATIO NORM SEE BELOW Normal [facility] Comment on above: Result Comment: 3.3 - 4.4 LOW RISK 4.4 - 7.1 AVERAGE RISK 7.1 - 11.0 MODERATE RISK >11.0 HIGH RISK Performed By: #### C MP, TSH, LIPID, T7 ####[facility] Z[address]hs[address] [place] [address]Dr. Sofiya Lozano Cholesterol [Mass/Vol] 155 mg/dL Normal <=200 [facility] Comment on above: Performed By: #### C MP, TSH, LIPID, T7 ####[facility] Ex[address] [place] [address]DrSandi Lozano Cholesterol in HDL [Mass/Vol] 61 mg/dL Critically high 40-60 [facility] Comment on above: Performed By: #### C MP, TSH, LIPID, T7 ####[facility] Lrrrwedsgz[address] [place] [address]Dr. Sofiya Lozano Cholesterol in LDL [Mass/Vol] 75.6 mg/dL Normal [facility] Comment on above: Performed By: #### C MP, TSH, LIPID, T7 ####[facility] [address] [place] [address]DrSandi Lozano Cholesterol.total/Cho lesterol in HDL [Mass ratio] 2.5 {ratio} Normal [facility] Comment on above: Performed By: #### C MP, TSH, LIPID, T7 ####[facility] Ejrphjcnxn[address] [place] [id number]. Sofiya Lozano HDL NORMAL > or = 60 mg/dl - LO W CARDIOVASCULAR RISK <40 mg/dl - HIGH CARDIOVASCULAR RISK Normal [facility] Comment on above: Performed By: #### C MP, TSH, LIPID, T7 ####[facility] Fbenbzmvyi[address] [place] [address]Dr. oSfiya Lozano LDL CALC NORMAL SEE BELOW Normal [facility] Comment on above: Result Comment: <100 mg/dl OPTIMAL 100 - 129 mg/dl NEAR OR ABOVE OPTIMAL 130 - 159 mg/dl BORDERLINE HIGH 160 - 189 mg/dl HIGH >190 mg/dl VERY HIGH Performed By: #### C MP, TSH, LIPID, T7 ####[facility] Jts[address]zp[address] [place] [address]Dr. Sofiya Lozano Triglyceride [Mass/Vol] 92 mg/dL Normal <=150 [facility] Comment on above: Performed By: #### C MP, TSH, LIPID, T7 ####[facility] Urmwxscnax[address] [place] [address]Dr. Sofiya Lozano VLDL CALC 18.4 mg/dL Normal [facility] Comment on above: Performed By: #### C MP, TSH, LIPID, T7 ####[facility] Pi[address]jq[address]zql[address] [place] [address]Dr. Sofiya Lozano PROF 14(COMP METB)on 023 Albumin [Mass/Vol] 3.4 g/dL Normal 3.4-5.0 [facility] Comment on above: Performed By: #### C MP, TSH, LIPID, T7 ####[facility] Ugukj[address]ymn[address] [place] [address]Dr. Sofiya Lozano Albumin/Globulin [Mass ratio] 1.0 {ratio} Normal [facility] Comment on above: Performed By: #### C MP, TSH, LIPID, T7 ####[facility] Qhavvwqkcx[address] [place] [address]Dr. Sofiya Lozano ALP [Catalytic activity/Vol] 85 U/L Normal 46-116 [facility] Comment on above: Performed By: #### C MP, TSH, LIPID, T7 ####[facility] Gbohgewwcc[address] [place] [address]Dr. Sofiya Lozano ALT [Catalytic activity/Vol] 21 U/L Normal 14-59 [facility] Comment on above: Performed By: #### C MP, TSH, LIPID, T7 ####[facility] Eojgcjgbov[address] [place] [address]Dr. Sofiya Lozano Anion gap [Moles/Vol] 9.0 mmol/L Normal [facility] Comment on above: Performed By: #### C MP, TSH, LIPID, T7 ####[facility] Ycdxlltggx[address] [place] [address]Dr. Sofiya Lozano AST [Catalytic activity/Vol] 18 U/L Normal 15-37 [facility] Comment on above: Performed By: #### C MP, TSH, LIPID, T7 ####[facility] Bzhsgizthi[address] [place] [address]Dr. Sofiya Lozano Bilirubin [Mass/Vol] 0.4 mg/dL Normal 0.2-1.0 [facility] Comment on above: Performed By: #### C MP, TSH, LIPID, T7 ####[facility] [address] [place], [place] [address]Dr. Sofiya Lozano Calcium [Mass/Vol] 9.0 mg/dL Normal 8.5-10.1 [facility] Comment on above: Performed By: #### C MP, TSH, LIPID, T7 ####[facility] Dbbgcwdktw[address] [place] [address]Dr. Sofiya Lozano Chloride [Moles/Vol] 109 mmol/L Critically high 98-107 [facility] Comment on above: Performed By: #### C MP, TSH, LIPID, T7 ####[facility] Ttlsffxwrb[address] [place] [address]Dr. Sofiya Lozano CO2 [Moles/Vol] 31.0 mmol/L Normal 21.0-32.0 [facility] Comment on above: Performed By: #### C MP, TSH, LIPID, T7 ####[facility] Hrutpdbasu[address] [place] [address]Dr. Sofiya Lozano Creatinine [Mass/Vol] 1.10 mg/dL Critically high 0.55-1.02 [facility] Comment on above: Performed By: #### C MP, TSH, LIPID, T7 ####[facility] W[address]jfjm[address] [place] [address]Dr. Sofiya Lozano EGFR-AF GABONESE 57 mL/min/1.73m2 Critically low >=60 [facility] Comment on above: Performed By: #### C MP, TSH, LIPID, T7 ####[facility] Sjnedimwcv[address] [place] [address]Dr. Sofiya Lozano EGFR-NON AF GABONESE 47 mL/min/1.73m2 Critically low >=60 [facility] Comment on above: Performed By: #### C MP, TSH, LIPID, T7 ####[facility] Oqnzwvacbp[address] [place] [address]Dr. Sofiya Lozano Globulin (S) [Mass/Vol] 3.4 g/dL Normal [facility] Comment on above: Performed By: #### C MP, TSH, LIPID, T7 ####[facility] Upjetchobb[address] [place] [address]Dr. Sofiya Lozano Glucose [Mass/Vol] 109 mg/dL Critically high 74-106 [facility] Comment on above: Performed By: #### C MP, TSH, LIPID, T7 ####[facility] Jmwawlfcoe[address] [place] [address]Dr. Sofiya Lozano Potassium [Moles/Vol] 4.0 mmol/L Normal 3.5-5.1 [facility] Comment on above: Performed By: #### C MP, TSH, LIPID, T7 ####[facility] Doxoridtuk[address] [place] [address]Dr. Sofiya Lozano Protein [Mass/Vol] 6.8 g/dL Normal 6.4-8.2 [facility] Comment on above: Performed By: #### C MP, TSH, LIPID, T7 ####[facility] Seggnfwpgx4[address] [place] [address]Dr. Sofiya Lozano Sodium [Moles/Vol] 145 mmol/L Normal 136-145 [facility] Comment on above: Performed By: #### C MP, TSH, LIPID, T7 ####[facility] Eyqizejkad[address] [place] [address]Dr. Sofiya Lozano Urea nitrogen [Mass/Vol] 21.0 mg/dL Critically high 7.0-18.0 [facility] Comment on above: Performed By: #### C MP, TSH, LIPID, T7 ####[facility] Vzrabwicia[address] [place] [id number]. Sofiya Lozano Urea nitrogen/Creatinine [Mass ratio] 19.1 mg/mg Normal [facility] Comment on above: Performed By: #### C MP, TSH, LIPID, T7 ####[facility] Ppov[address]odxkz[address] [place] [address]DrSandi Lozano TSHon 12-10-2022 TSH 3.603 uIU/mL Normal 0.358-3.740 [facility] Comment on above: Performed By: #### C MP, TSH, LIPID, T7 ####[facility] Ncmavcobnl7566 [place] [address]Dr. Sofiya Lozano CBC AUTO DIFFon 08-09-2022 BASO # 0.0 103/ul Normal 0.0-0.1 [facility] Comment on above: Performed By: #### C BC #### [facility] [address] [place] [address] Dr. Sofiya Lozano Basophils/100 WBC (Bld) 0.2 % Normal 0.2-2.0 [facility] Comment on above: Performed By: #### C BC #### [facility] [address] [place] [address] Dr. Sofiya Lozano EO # 0.0 103/ul Normal 0.0-0.7 [facility] Comment on above: Performed By: #### C BC #### [facility] [address] [place] [address] Dr. Sofiya Lozano Eosinophils/100 WBC (Bld) 0.8 % Critically low 0.9-7.0 [facility] Comment on above: Performed By: #### C BC #### [facility] [address] [address] [address] Sofiya Lozano Erythrocyte distribution width (RBC) [Ratio] 13.7 % Normal 11.0-15.0 [facility] Comment on above: Performed By: #### C BC #### [facility] [address] [place] [address] Dr. Sofiya Lozano Hematocrit (Bld) [Volume fraction] 39.0 % Normal 36.0-48.0 [facility] Comment on above: Performed By: #### C BC #### [facility] [address] [place] [address] Dr. Sofiya Lozano Hemoglobin (Bld) [Mass/Vol] 13.0 g/dL Normal 12.0-16.0 [facility] Comment on above: Performed By: #### C BC #### [facility] [address] [place] [address] Dr. Sofiya Lozano IG # 0.01 10e3/ul Normal 0.00-0.03 [facility] Comment on above: Performed By: #### C BC #### [facility] [address] [place] [address] Dr. Sofiya Lozano IG % 0.2 % Normal 0.0-0.5 [facility] Comment on above: Performed By: #### C BC #### [facility] [address] [place] [address] Dr. Sofiya Lozano LYMPH # 0.9 103/ul Critically low 1.2-3.8 [facility] Comment on above: Performed By: #### C BC #### [facility] [address] [place] [address] Dr. Sofiya Lozano Lymphocytes/100 WBC (Bld) 19.1 % Critically low 20.5-60.0 [facility] Comment on above: Performed By: #### C BC #### [facility] [address] [place] [address] Dr. Sofiya Lozano MANUAL DIFF REQ NO Normal [facility] Comment on above: Performed By: #### C BC #### [facility] [address] [place] [address] Dr. Sofiya Lozano MCH (RBC) [Entitic mass] 30.6 pg Normal 26.7-34.0 [facility] Comment on above: Performed By: #### C BC #### [facility] [address] [place] [address] Dr. Sofiya Lozano MCHC (RBC) [Mass/Vol] 33.3 g/dL Normal 29.9-35.2 [facility] Comment on above: Performed By: #### C BC #### [facility] [address] [place] [address] Dr. Sofiya Lozano MCV (RBC) [Entitic vol] 91.8 fL Normal 81.0-99.0 [facility] Comment on above: Performed By: #### C BC #### [facility] [address] [place] [address] Dr. Sofiya Lozano MONO # 0.5 103/ul Normal 0.3-0.8 [facility] Comment on above: Performed By: #### C BC #### [facility] [address] [place] [address] Dr. Sofiya Lozano Monocytes/100 WBC (Bld) 10.5 % Normal 1.7-12.0 [facility] Comment on above: Performed By: #### C BC #### [facility] [address] [place] [address] Dr. Sofiya Lozano NEUT # 3.4 103/ul Normal 1.4-6.5 [facility] Comment on above: Performed By: #### C BC #### [facility] [address] [place] [address] Dr. Sofiya Lozano Neutrophils/100 WBC (Bld) 69.2 % Normal 43.0-75.0 [facility] Comment on above: Performed By: #### C BC #### [facility] [address] [place] [address] Dr. Sofiya Lozano Platelet mean volume (Bld) [Entitic vol] 11.7 fL Normal 9.5-13.5 [facility] Comment on above: Performed By: #### C BC #### [facility] [address] [place] [address] Dr. Sofiya Lozano PLT 158 103/ul Normal 150-450 [facility] Comment on above: Performed By: #### C BC #### [facility] [address] [place] [address] Dr. Sofiya Lozano RBC 4.25 106/ul Normal 4.20-5.40 [facility] Comment on above: Performed By: #### C BC #### [facility] [address] [place] [address] Dr. Sofiya Lozano WBC 4.9 103/ul Normal 4.0-11.0 [facility] Comment on above: Performed By: #### C BC #### [facility] [address] [place] [address] Dr. Sofiya Lozano PROF CHEM 8 (BAS METB)on Anion gap [Moles/Vol] 10.1 mmol/L Normal [facility] Comment on above: Performed By: #### B MP #### [facility] [address] [place] [address] Dr. Sofiya Lozano Calcium [Mass/Vol] 8.5 mg/dL Normal 8.5-10.1 [facility] Comment on above: Performed By: #### B MP #### [facility] [address] [place] [address] Dr. Sofiya Lozano Chloride [Moles/Vol] 102 mmol/L Normal 98-107 [facility] Comment on above: Performed By: #### B MP #### [facility] [address] [place] [address] Dr. Sofiya Lozano CO2 [Moles/Vol] 28.1 mmol/L Normal 21.0-32.0 [facility] Comment on above: Performed By: #### B MP #### [facility] [address] [place] [address] Dr. Sofiya Lozano Creatinine [Mass/Vol] 0.97 mg/dL Normal 0.55-1.02 [facility] Comment on above: Performed By: #### B MP #### [facility] [address] [place] [address] Dr. Sofiya Lozano EGFR-AF GABONESE >60 Normal >=60 [facility] Comment on above: Performed By: #### B MP #### [facility] [address] [address] [address] Sofiya Lozano EGFR-NON AF GABONESE 55 mL/min/1.73m2 Critically low >=60 [facility] Comment on above: Performed By: #### B MP #### [facility] [address] [address] [address] Sofiya Lozano Glucose [Mass/Vol] 128 mg/dL Critically high 74-106 [facility] Comment on above: Performed By: #### B MP #### [facility] [address] [address] [address] Sofiya Lozano Potassium [Moles/Vol] 4.2 mmol/L Normal 3.5-5.1 [facility] Comment on above: Performed By: #### B MP #### [facility] [address] [address] [address] Sofiya Lozano Sodium [Moles/Vol] 136 mmol/L Normal 136-145 [facility] Comment on above: Performed By: #### B MP #### [facility] [address] [address] [address] Sofiya Lozano Urea nitrogen [Mass/Vol] 20.0 mg/dL Critically high 7.0-18.0 [facility] Comment on above: Performed By: #### B MP #### [facility] [address] [address] [address] oSfiya Lozano Urea nitrogen/Creatinine [Mass ratio] 20.6 mg/mg Normal [facility] Comment on above: Performed By: #### B MP #### [facility] [address] [address] [address] Sofiya Lozano PROTIMEon 08-09-2022 INR Coag (PPP) [Relative time] 2.00 {INR} Normal [facility] Comment on above: Performed By: #### P TT, PT #### [facility] [address] [address] [address] Sofiya Lozano INR GUIDELINES SEE BELOW Normal [facility] Comment on above: Result Comment: FIGUEROA RED INR: 2.0 - 3.0 CONDITIONS NOT LISTED BELOW 2.5 - 3.5 FOR PROSTHETIC HEART VALVE REPLACEMENT 2.5 - 3.5 RECURRENT THROMBOSIS Performed By: #### P TT, PT #### [facility] [address] [address] [address] Sofiya Lozano PT Coag (PPP) [Time] 20.6 s Critically high 9.0-11.6 [facility] Comment on above: Performed By: #### P TT, PT #### [facility] [address] [address] [address] Sofiya Lozano PTTon 08-09-2022 aPTT Coag (Bld) [Time] 38.5 s Critically high 22.3-36.2 [facility] Comment on above: Performed By: #### P TT, PT ####[facility] [id number] [place] [address]Dr. Sofiya Lozano US VENOUS DOPPLER L Isabel [...] CONCEPCIÓN WOMACK Date: 2022-08-09 15:59 Normal [facility] PROTIMEon 05-13-2022 INR Coag (PPP) [Relative time] 2.76 {INR} Normal [facility] Comment on above: Performed By: #### P T #### [facility] [address] [address] [address] Sofiya Lozano INR GUIDELINES SEE BELOW Normal [facility] Comment on above: Result Comment: FIGUEROA RED INR: 2.0 - 3.0 CONDITIONS NOT LISTED BELOW 2.5 - 3.5 FOR PROSTHETIC HEART VALVE REPLACEMENT 2.5 - 3.5 RECURRENT THROMBOSIS Performed By: #### P T #### [facility] [address] [address] [address] Sofiya Lozano PT Coag (PPP) [Time] 27.9 s Critically high 9.0-11.6 [facility] Comment on above: Performed By: #### P T #### [facility] [address] [address] [address] Sofiya Lozano PROTIMEon 04-15-2022 INR Coag (PPP) [Relative time] 2.18 {INR} Normal [facility] Comment on above: Performed By: #### P T #### [facility] [address] [address] [address] Sofiya Lozano INR GUIDELINES SEE BELOW Normal [facility] Comment on above: Result Comment: FIGUEROA RED INR: 2.0 - 3.0 CONDITIONS NOT LISTED BELOW 2.5 - 3.5 FOR PROSTHETIC HEART VALVE REPLACEMENT 2.5 - 3.5 RECURRENT THROMBOSIS Performed By: #### P T #### [facility] [address] [address] [address] Sofiya Lozano PT Coag (PPP) [Time] 22.4 s Critically high 9.0-11.6 [facility] Comment on above: Performed By: #### P T #### [facility] [address] [address] [address] Sofiya Lozano VIT D 25-OH LABCORPon 2021 Vitamin D, 25-Hydroxy 23.7 ng/mL Critically low 30.0-100.0 [facility] Comment on above: Result Comment: Jailyn min D deficiency has been defined by the [place] of [employer] and an Endocrine Society practice guideline as a level of serum 25-OH vitamin D less than 20 ng/mL (1,2). The Endocrine Society went on to further define vitamin D insufficiency as a level between 21 and 29 ng/mL (2). 1. IOM ([place] of [employer]). 2010. Dietary reference intakes for calcium and D. [place]: The National Academies Press. 2. Negin MATSON, Francisco CUNNINGHAM, Summer FERNANDEZ, et al. Evaluation, treatment, and prevention of vitamin D deficiency: an Endocrine Society clinical practice guideline. JCEM. 2010; 96(7):1911-30. Performed By: #### V ITADLC #### [facility] [address] [address] [address] Sofiya Lozano VITAMIN B12on 03-01-2022 Cobalamin (Vitamin B12) [Mass/Vol] 258.0 pg/mL Normal 193.0-986.0 [facility] Comment on above: Performed By: #### V ITB12 #### [facility] [address] [address] [address] Sofiya Lozano PROTIMEon 12-24-2021 INR Coag (PPP) [Relative time] 1.79 {INR} Normal [facility] Comment on above: Performed By: #### P T #### [facility] [address] [address] [address] Sofiya Lozano INR GUIDELINES SEE BELOW Normal [facility] Comment on above: Result Comment: FIGUEROA RED INR: 2.0 - 3.0 CONDITIONS NOT LISTED BELOW 2.5 - 3.5 FOR PROSTHETIC HEART VALVE REPLACEMENT 2.5 - 3.5 RECURRENT THROMBOSIS Performed By: #### P T #### [facility] [address] [address] [address] Sofiya Lozano PT Coag (PPP) [Time] 18.6 s Critically high 9.0-11.6 [facility] Comment on above: Performed By: #### P T #### [facility] [address] [address] [address] Sofiya Lozano Encounters Encounter Date Encounter Type Care Provider Facility Start: 11-29-2024 End: 11-29-2024 ambulatory STEPHANY HARGROVE [facility] Start: 11-15-2024 End: 11-15-2024 ambulatory MARY GILMORE [facility] Start: 05-17-2024 End: 05-17-2024 ambulatory [facility] Start: 03-15-2024 End: 03-15-2024 ambulatory [facility] Start: 02-17-2024 End: 02-23-2024 Evaluation and management of inpatient [facility] Start: 02-09-2024 End: 02-09-2024 ambulatory FATMATA BELLAMY [facility] Start: 02-02-2024 End: 02-02-2024 ambulatory [facility] Start: 02-02-2024 End: 02-02-2024 Subsequent hospital visit by physician Fatmata Bellamy APRN - [employer] Work Phone: [facility] Start: 01-26-2024 End: 01-26-2024 ambulatory TAE [facility] Start: 01-23-2024 End: 01-25-2024 ambulatory GER [facility] Start: 01-23-2024 End: 01-25-2024 Subsequent hospital visit by physician Dima [facility] Scan Room [facility] CT Scan Comment on above: SDH (subdural hemato ma) ([facility]) Start: 01-19-2024 End: 01-19-2024 ambulatory [facility] Start: 01-15-2024 End: 01-15-2024 ambulatory [facility] Start: 01-15-2024 End: 01-15-2024 Subsequent hospital visit by physician Fatmata Bellamy APRN - [employer] Work Phone: [facility] Start: 01-05-2024 End: 01-13-2024 Evaluation and management of inpatient FATMATA BELLAMY [facility] Start: 07-03-2023 End: 07-03-2023 ambulatory MOISES SANCHEZ [facility] Start: 12-14-2022 Encounter for genera l adult medical examination without abnormal findings DR MOISES SANCHEZ . [facility] Start: 12-10-2022 End: 12-11-[address] MOISES SANCHEZ . Facility:[facility] Start: 12-10-2022 End: 12-11-2022 Encounter for general adult medical examination without abnormal findings DR MOISES SANCHEZ . Facility:[facility] Start: 08-12-2022 ambulatory FATMATA BELLAMY Facility: [facility] Start: 08-09-2022 End: 08-09-2022 ambulatory FATMATA JOSESITO Facility:[facility] Start: 05-13-2022 End: 06-03-[address] MOISES SANCHEZ . Facility: Start: 04-15-2022 End: 05-04-[address] MOISES [...] Influenza vaccination Flu vaccine (# 1) ANTOINE DARYN [facility] Start: 02-19-2024 End: 02-19-2024 Patient encounter procedure 02/19/2024 10:30 AM EDT Office Visit [facility] [address] [place] [address] [place] [address] Celina Diaz, DO [address] [facility] [address] [place] [address] Follow up with Sylvia or Adelina in two weeks with CTH prior to appointment for SDH [facility] Comment on above: Follow up with Sylvia or Adelina in two weeks with CTH prior to appointment for SDH Start: 02-09-2024 End: 02-09-2024 Patient encounter procedure 02/09/2024 11:30 AM EDT Office Visit [facility] Medicine [address] [place] [address] [place] [id number] Austin Zee, DO [address] [place], [place] [id number] LEFT PROX HUMERUS/ RIGHT TIB COMING FORM [facility]. R/S w/Deisy due to Covid [phone] [facility] Comment on above: LEFT PROX HUMERUS/ R IGHT TIB COMING FORM [facility]. R/S w/Deisy due to Covid [phone] Start: 02-02-2024 End: 02-02-2024 Patient encounter procedure 02/02/2024 10:15 AM EDT Office Visit [facility] [address] [facility] [address] [place] [phone] Austin Zee, DO [address] [facility] [address] [place] [address] LEFT PROX HUMERUS/ RIGHT TIB COMING FORM [facility] Comment on above: LEFT PROX HUMERUS/ R IGHT TIB COMING FORM [facility] Start: 01-21-2024 End: 01-21-2024 Patient encounter procedure 01/21/2024 3:15 PM EDT Office Visit [facility] [address] [facility] [address] [place] [phone] Austin Zee, DO [address] [facility] [address] [place] [address] R fem IMN, closed tx left proximal humerus [facility] Comment on above: R fem IMN, closed tx left proximal humerus Start: 01-21-2024 End: 01-21-2024 Patient encounter procedure 01/21/2024 11:30 AM EDT Office Visit [facility] [address] [facility] [address] Floor, [address] [place] [phone] Sylvia Malone W, NETWORK ASSOCIATE - REPAIRER [employer]OE [employer]ICKS [address] [facility] [address] [place], [place] [id number] Follow up with Sylvia or Adelina in two weeks with CTH prior to appointment for SDH [facility] Comment on above: Follow up with Sylvia or Adelina in two weeks with C[facility] prior to appointment for SDH Start: 08-04-2023 Annual Wellness Visi t (Medicare Advantage) Annual Wellness Visit (Medicare Advantage) [facility] Start: 04-04-2023 COVID-19 Vaccine ( season) COVID-19 Vaccine ( season) [facility] Start: 1999 Respiratory Syncytia l Virus (RSV) or age 60 yrs+ (1 - 1-dose 60+ series) Respiratory Syncytial Virus (RSV) or age 60 yrs+ (1 - 1-dose 60+ series) [facility] Start: 1994 Screening for osteoporosis DEXA (modify frequency per FRAX score) [facility] Start: 1958 DTaP/Tdap/Td vaccine (1 - Tdap) DTaP/Tdap/Td vaccine (1 - Tdap) [facility] Start: 1951 Depression Screen Depression Screen [facility] End: 01-23-2024 CT Head WO contrast [facility] Work Phone: Comment on above: 1 Occurrences starti ng 01/23/2024 until 01/23/2024 Payers Date Payer Category Payer Self-pay [id number] Unknown [id number] 1940 Unknown [id number] 2.16.84 [id number] 1939 Unknown [id number] 2.16.84 0.1.235711.3.579.2.593 1939 Unknown [id number] 2.16.84 0.1.586307.3.579.2.593 1939 Unknown [id number] 2.16.84 0.1.699406.3.579.2.593 1939 Unknown [id number] 2.16.84 0.1.676976.3.579.2.593 1939 Unknown [id number] 2.16.84 0.1.713697.3.579.2.593 1939 Unknown [id number] 2.16.84 0.1.620993.3.579.2.593 1939 Unknown [id number] 2.16.8 40.1.351735.3.579.2.173 1939 Unknown [id number] 2.16.8 40.1.885092.3.579.2.173 1939 Unknown [id number] 2.16.8 40.1.311071.3.579.2.173 1939 Unknown [id number] 2.16.8 40.1.491831.3.579.2.173 1939 Unknown [id number] 2.16.8 40.1.061523.3.579.2.173 1939 Unknown [id number] 2.16. 840.1.426260.3.579.2.175 1939 Unknown [id number] 2.16. 840.1.061204.3.579.2.175 1939 Unknown [id number] 2.16. 840.1.397756.3.579.2.175 1939 Unknown [id number] 2.16. 840.1.021232.3.579.2.175 1939 Unknown [id number] 2.16. 840.1.524983.3.579.2.175 1939 Unknown [id number] 2.16. 840.1.362337.3.579.2.175 1939 Unknown [id number] 2.16. 840.1.441876.3.579.2.175 Social History Date Type Detail Facility Start: 01-10-2024 Tobacco smoking stat [facility] Never smoked tobacco [facility] Start: 01-10-2024 Tobacco use and exposure Smokeless tobacco non-user [facility] Start: 01-05-2024 End: 01-10-2024 History of Social function [facility] Start: 01-05-2024 End: 01-10-2024 Tobacco use panel [facility] Physical abuse Denies [facility] Start: 1940 Sex Assigned At Not on file B ON [facility] Medical Equipment Procedure Code Equipment Code Equipment Origin al Text Equipment Identifier Dates Nail Im Fem 12x4 20 Mm Rt Greater Trochanteric Strl T2 Alpha - [id number], [id number] FDA Start: 01-06-2024 Screw Bne L90mm Dia6.5mm Canc Fem Ti Lag Rory Saad Partially - [id number] ()[id number] [id number], [id number] FDA Start: 01-06-2024 Screw Bne L90mm Dia6.5mm Canc Fem Ti Lag Rory Saad Partially - [id number] ()[id number] [id number], [id number] FDA Start: 01-06-[address] 5x37 5mm - [id number] ()[id number] [id number], [id number] FDA Start: 01-06-2024 Screw Bne L50mm Dia5mm Saad For T2 Alpha Nailing Sys - [id number] ()[id number] [id number], [id number] FDA Start: 01-06-2024 Screw Bne Lck 5x 45 Mm Adv Strl Alpha - [id number] Start: 01-06-2024 Clinical Note 03-01-2022 Note [...] by: BERTO ALEJO Date: 2022-03-01 17:38 [facility] Evaluation note Note Date & Type Note Facility Evaluation note Diagnosis SDH (subdural hematoma) (HCC) Subdural hemorrhage documented in this encounter [facility] Summary Purpose Family History No [...] Procedures CT HEAD WO CONTRAST Ger Guzman, NETWORK ASSOCIATE - REPAIRER [employer] [address] [address] Referral ID Status Reason Start Date Expiration Date Visits Re quested Visits Authorized [id number] Closed 01/20/2024 04/18/2024 1 1 Additional Source Comments INFORMATION SOURCE (unrecogn ized section and content) DATE CREATED AUTHOR 12/15/2022 [facility] DATE CREATED AUTHOR AUTHOR'S ORGANIZ ATION 02/03/2024 [facility] DATE CREATED AUTHOR AUTHOR'S ORGANIZ ATION 12/02/2024 [facility] Care Teams (unrecognized sec tion and content) Die Cut Operator Relationship Specialty Start Date End Date Fatmata Bellamy APRN - REPAIRER [employer] [address] [place] [address] PCP - General 01/06/24 Die Cut Operator Relationship Specialty Start Date End Date Fatmata BellamyKARISSA - MARLIN [address] [place] [address] [place] [address] PCP - General 01/06/24 Die Cut Operator Relationship Specialty Start Date End Date Fatmata BellamyKARISSA - REPAIRER [employer]OE STICKS [address] [facility] [place] [address] PCP - General 01/06/24 Reason for Visit (unrecogniz ed section and content) Specialty Diagnoses / Procedures Referred By Contac t Referred To Contact Radiology Diagnoses SDH (subdural hematoma) (HCC) Procedures CT HEAD WO CONTRAST Ger Guzman, KARISSA - MARLIN [address] [facility] [address] [place] [address] Referral ID Status Reason Start Date Expiration Date Visits Re quested Visits Authorized [id number] Closed 01/20/2024 04/18/2024 1 1 FOR RECORDS [...] BE BASED ON THE PRIMARY CLINICAL RECORDS. [facility] [employer] provides no warranty or guarantee of the accuracy or completeness of information in this document.
[2024-12-14] MEDS: HYDROCODONE/ACET 5-325 MG TABLET 1 TAB PO (00:42)
[2024-12-14] MEDS: ONDANSETRON 4 MG RAPDIS TABLET SL (00:42)
--- NOTE | 2024-12-14 00:44 | ED.BACK1 ---
HPI HPI - Back Pain/Injury General Chief Complaint: Back Pain/Injury Stated Complaint: SCIATIC NERVE PAIN Time Seen by Provider: 12/13/24 23:51 Source: patient Mode of arrival: Wheelchair Limitations: no limitations History of Present Illness HPI Narrative: This 84-year-old female is brought to the emergency department by her for evaluation of right buttock pain that radiates down the anterior aspect of her right leg to her knee. The patient was recently seen by orthopedic surgery in [place] where she was told that she has sciatica. She recently had a fall with a left shoulder fracture and right knee injury/fracture. She had surgery at that time. She has had sciatica symptoms in the past but most recently she started having some low back pain several weeks ago. She followed up with her surgeon who did x-rays and told her that her low back is a mess . She followed up with a chiropractor and had a manipulation without significant improvement. She then followed up with her family physician and was given a shot of Toradol and a short course of prednisone and diclofenac. This helped her somewhat but she is out of these medications at this time. She denies any recent falls but states she thinks that she flared up her sciatica when she was standing at the sink and almost fell over her wheelchair. She twisted her back at that time and her sciatica symptoms seem to emanate from that event. She does not have any weakness or numbness. She only has pain. The pain is in the right buttock area and on the right anterior leg. She has no calf pain or swelling. She is on Coumadin. Her neuroexam is normal. She is not having any fever. She is tender over the piriformis muscle and lateral aspect of the right greater trochanter and consistent with acute sciatica. She was anxious to be medicated in the emergency department and stated that she was on multiple narcotic medications while hospitalized for 3 months last year and does not feel that this is a problem for her. She was given a dose of [place] in the emergency department and a Zofran. She was given a shot of Toradol at her 's request. I explained to her that in light of the fact that she is on Coumadin Lopez 2 inhibitors are somewhat contraindicated. I agreed to give her a shot of Toradol but otherwise was not going to prescribe additional steroids or Lopez 2 inhibitors. She was agreeable to this. Related Data Home Medications ?Medication ?Instructions ?Recorded ?Confirmed simvastatin 10 mg tablet 10 mg PO DAILY 01/05/24 12/13/24 warfarin 2.5 mg tablet 2.5 mg PO .COMPLEX 01/05/24 12/13/24 alendronate 70 mg tablet mg PO 12/13/24 diclofenac sodium 75 mg mg PO 12/13/24 tablet,delayed release diltiazem HCl 60 mg tablet mg 12/13/24 metoprolol tartrate 25 mg tablet mg 12/13/24 prednisone 20 mg tablet mg 12/13/24 Allergies Allergy/AdvReac Type Severity Reaction Status Date / Time Sulfa (Sulfonamide Allergy Unknown Verified 12/13/24 23:41 Antibiotics) Opioid HPI Opioid Management Most Recent Opioid Data: Last Pain Scale 10 12/13/24, 23:42 Review of Systems ROS Status of ROS 10 or more systems reviewed and unremarkable except as noted in history and below Exam Narrative Exam Narrative: Vital signs and Nursing Notes reviewed: Is afebrile with a normal pulse, blood pressure is elevated 150/85, she is not hypoxic also ox of 97% on room air General: Awake, alert, oriented, no acute distress, sitting in a wheelchair HEENT: Normocephalic atraumatic, mucous membranes are moist and pink, eyes are clear, normal conjunctiva, vision is grossly intact Chest: Lungs are clear to auscultation with good air entry, there is no wheezing rhonchi or rales appreciated no accessory muscle use, patient is speaking in complete sentences-no chest wall tenderness to palpation CVS: Regular rate and rhythm S1-S2, no murmurs rubs or gallops, pulses are brisk and equal bilaterally ABD: Soft, nondistended, nontender, no rebound guarding or rigidity, bowel sounds are normal, no pulsatile masses appreciated Extremities: There is tenderness in the right buttock area and at the greater trochanter on the right consistent with acute sciatica/piriformis syndrome. Palpation of the sciatic nerve refers the patient's pain down her leg. She does not have any calf pain or swelling. There is no weakness numbness or tingling. Skin: Normal in appearance without rash,pallor, petechiae or purpura Neuro: No focal deficits, upper and lower extremity strength and sensation is intact, there is no saddle anesthesia Constitutional Vital Signs, click to edit/add: Last Vital Signs Temp 98.4 F 12/13/24 23:34 Pulse 70 12/13/24 23:34 Resp 14 12/13/24 23:34 BP 150/85 H 12/13/24 23:34 Pulse Ox 97 12/13/24 23:34 O2 Del Method Room Air 12/13/24 23:34 Course Vital Signs Vital signs: Vital Signs Temperature 98.4 F 12/13/24 23:34 Pulse Rate 70 12/13/24 23:34 Respiratory Rate 14 12/13/24 23:34 Blood Pressure 150/85 H 12/13/24 23:34 Pulse Oximetry 97 12/13/24 23:34 Oxygen Delivery Method Room Air 12/13/24 23:34 Temperature 98.4 F 12/13/24 23:34 Pulse Rate 70 12/13/24 23:34 Respiratory Rate 14 12/13/24 23:34 Blood Pressure 150/85 H 12/13/24 23:34 Pulse Oximetry 97 12/13/24 23:34 Oxygen Delivery Method Room Air 12/13/24 23:34 MDM - Back Pain/Injury MDM Narrative Medical decision making narrative: Patient medicated with Toradol and a dose of [place] in the emergency department. OARRS was reviewed. She does not have any active narcotic prescriptions. I explained to the patient and her that I am reluctant to give her any Lopez 2 inhibitors or additional steroids. She has been on narcotics in the past without any untoward side effects. I did explain that this could cause her to have dizziness and increase her propensity for falls but they verbalized understanding of this. At this point her pain is their major concern. She recently had x-rays done at her orthopedics office and radiographic studies did not appear to be indicated. She does not have any urinary symptoms. She has no weakness numbness or tingling just pain. She was discharged home with a prescription for [place] Zofran and Colace. I encouraged her to follow-up closely with her family physician for further evaluation and treatment. The orthopedic surgeon she did see in [place] has referred her to somebody in [facility] for pain management or further evaluation and treatment. Neither the patient nor her could exactly tell me who she had been referred to. Discharge Plan Discharge Chief Complaint: Back Pain/Injury Clinical Impression: Sciatica Patient Disposition: Home, Self-Care Time of Disposition Decision: 00:45 Condition: Good Mode of Transportation: Private Vehicle Prescriptions / Home Meds: No Action prednisone 20 mg tablet alendronate 70 mg tablet PO diclofenac sodium 75 mg tablet,delayed release (DR/EC) PO diltiazem HCl 60 mg tablet metoprolol tartrate 25 mg tablet simvastatin 10 mg tablet 10 mg PO DAILY warfarin 2.5 mg tablet 2.5 mg PO .COMPLEX Rx Instructions: 2.5 mg orally Take 2 tablets by mouth on Friday and 1 tablet by mouth on all other days; Print Language: Nicaraguan Instructions: Sciatica (ED) Referrals: LIGIA BELLAMY [Primary Care Provider, Family Practice] - 1 week Discharge Date/Time: 12/14/24 01:05
[2024-12-14] MEDS: KETOROLAC TROMETHAMINE 30 MG/ML VIAL IM (01:00)
[2024-12-14] MEDS: HYDROCODONE/ACET 5-325 MG TABLET 2 TAB PO (01:00)
== END 2024-12-14 01:05 | disposition home or self-care (01) ==
PROVIDERS: Emergency Provider Emergency Medicine; PCP Nurse Practitioner Family
DX: M54.41 Lumbago with sciatica, right side (principal); M79.661 Pain in right lower leg; M25.561 Pain in right knee
CPT/HCPCS: 96372; 99285; J1885; Q0162

== ENCOUNTER 2024-12-15 10:30 | Outpatient (OUT) | payer MEDICARE, SELFPAY ==
--- NOTE | 2024-12-15 10:39 | MR_ITS ---
The [address] [address] Patient Name: MARIA GUADALUPE JAIN MRN: [facility]:[id number] date: 1940 Sex: F Assigned Patient Location: MRI Current Patient Location: MRI Accession/Order Number: [id number] Exam Date: 12/15/2024 14:29 Report Date: 12/15/2024 14:36 At the request of: LIGIA BELLAMY Procedure: MR lumbar spine wo con MR lumbar spine wo con 12/15/2024 11:44 AM SIGNS AND SYMPTOMS: Low back pain radiating into right hip ^Spondylolisthesis PROTOCOL: Multiplanar multisequence MR images of the lumbar spine without IV contrast COMPARISON: 05/31/2021 FINDINGS: 2 mm of retrolisthesis of L2 upon L3. There is 3 mm of anterolisthesis of L4 upon L5.. There is preservation of vertebral body heights. There is disc desiccation and mild disc height loss at L2-L3 at L3-L4. There is disc desiccation and moderate to severe disc height loss at L5-S1. There is Modic type II fatty endplate degenerative change at L5-S1.. The marrow signal is within normal limits, otherwise. The conus terminates at the superior endplate of the L2 vertebral body level. No epidural or paraspinous fluid collection is appreciated. 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 This abuts the lateral margin of the L3 vertebral body on the right also approximating the exiting right L3 nerve roots in the lateral margin of the right elbow 3 L4 neural foramen. No definite extent into the spinal canal. Lesion appears to extend anteriorly and inferiorly along the iliopsoas off of the inferior margin of the exam. There is a large simple cyst in the right renal cortex. At T12-L1: There is a normal disc, central canal, and neural foramen. At L1-L2: There is a normal disc, central canal, and neural foramen. At L2-L3: There is a broad-based disc bulge with facet hypertrophy and ligament flavum thickening. There is mild narrowing of the spinal canal with moderate right neural foraminal stenosis. At L3-L4: There is a broad-based disc bulge with facet hypertrophy and ligament flavum thickening. There is moderate spinal canal stenosis. No significant neural foraminal narrowing is noted. At L4-L5: There is a broad-based disc bulge with facet hypertrophy. There is mild spinal canal stenosis with mild to moderate left and moderate neural foraminal narrowing. At L5-S1: There is a circumferential disc bulge with facet hypertrophy and ligamentum flavum thickening. There is mild spinal canal narrowing with moderate to severe right and moderate left neural foraminal narrowing. Is mild mass effect on the exiting right L5 nerve roots. 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 This abuts the lateral margin of the L3 vertebral body on the right also approximating the exiting right L3 nerve roots in the lateral margin of the right elbow 3 L4 neural foramen. No definite extent into the spinal canal. Lesion appears to extend anteriorly and inferiorly along the iliopsoas off of the inferior margin of the exam. Follow-up with contrast-enhanced MR images of the lumbar spine and contrast-enhanced CT of the abdomen and pelvis may be helpful in further defining this process. At L5-S1: There is a circumferential disc bulge with facet hypertrophy and ligamentum flavum thickening. There is mild spinal canal narrowing with moderate to severe right and moderate left neural foraminal narrowing. Is mild mass effect on the exiting right L5 nerve roots. Lesser degrees of degenerative changes are noted as above. Impression dictated by: Rohith Harris M.D. 12/15/2024 2:36 PM Dictation Location: [place] [address] Electronically authenticated by: [id number] Y Date: 12/15/2024 14:36
== END 2024-12-15 10:31 | disposition home or self-care (01) ==
LOC: MRI 10:32
PROVIDERS: PCP Nurse Practitioner Family; Visit Provider Nurse Practitioner Family
DX: M43.16 Spondylolisthesis, lumbar region (principal); M51.369 Other intervertebral disc degeneration, lumbar region without mention of lumbar back pain or lower extremity pain; R93.7 Abnormal findings on diagnostic imaging of other parts of musculoskeletal system
CPT/HCPCS: 72148

== ENCOUNTER 2024-12-22 07:29 | Emergency (ER) | payer MEDICARE, SELFPAY ==
[2024-12-22 07:42] VITALS: BP 119/75; PULSE 97; TEMP 36.6; O2SAT 97; BMI 24.3
--- OUTSIDE RECORDS SUMMARY | 2024-12-22 08:00 | XMS_ITS | CCD ---
Author Organization [facility] Care Team Providers Care Senior Sales Compensation Analyst Name Role Phone DANIEL ., DR DE [...] Unavailable PAY ., DR BAEZ Attending Unavailable FIVE POINTS, DR CONCEPCIÓN Wang Consulting Unavailable PAY ., [...] Consulting Unavailable JOSESITO, FATMATA Consulting Unavailable Josesito EMPLOYEE BENEFITS ATTORNEY - COMPUTER HARDWARE ENGINEER, Fatmata S Primary Care Provide r TAE [...] Sulfonamides (Antibiotic) Drug allergy (disorder) 3 [facility] (3 sources) Penicillins Propensity to adverse reactions to drug 4 [facility] (3 sources) Sulfonamides (Antibiotic) Propensity to adverse reactions to drug 4 [facility] Medications Current Medications Medication Drug Class(es) [...] 15 tablet 0 01/14/2024 02/13/2024 Active sennosides, halfway 1.76 mg/ml oral solution (3 sources) Start: [...] Onset: 03-01-2022 Episodic Other aftercare (1 source) 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; Translations: [[facility] CURRNT USE ANTICOAGULANTS] Onset: 08-12-2022 Episodic Other aftercare (1 source) retirement (current) use of aspirin; Translations: [[facility] CURRENT USE OF ASPIRIN] Onset: 08-12-2022 Episodic Other aftercare (2 sources) Other 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 (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 therapy; Translations: [Other 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 (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 therapy] Onset: 07-03-2023 Episodic Other [...] by: Mary Gilmore PA Preliminary result Normal [facility] XR SHOULDER LEFT (MIN 2 VIEW [...] by: Mary Gilmore PA Preliminary result Normal [facility] XR FEMUR RIGHT (MIN 2 VIEWS) [...] Austin Zee DO 06/02/24 Final result Normal [facility] XR SHOULDER LEFT (MIN 2 VIEW [...] by: Austin Zee, 06/02/24 Final result Normal [facility] XR FEMUR RIGHT (MIN 2 VIEWS) [...] by: Austin Zee, 03/17/24 Final result Normal [facility] XR SHOULDER LEFT (MIN 2 VIEW [...] by: Austin Zee, 03/17/24 Final result Normal [facility] XR FEMUR RIGHT (MIN 2 VIEWS) [...] by: Austin Zee, 02/25/24 Final result Normal [facility] XR SHOULDER LEFT (MIN 2 VIEW [...] by: Austin Zee, 02/25/24 Final result Normal [facility] Basic Metab w/rfx MGon 02-22 Anion gap [Moles/Vol] 6 mmol/L Low 9-16 [facility] Comment on above: Performed By: #### B C #### [employer] [address] [place] [address] Director Counseling Bureau: Sarath Olivera MD Calcium [Mass/Vol] 8.6 mg/dL Normal 8.6-10.4 [facility] Comment on above: Performed By: #### B C #### [employer] [address] [place], [place] [id number] Director Counseling Bureau: Sarath Olivera MD Chloride [Moles/Vol] 108 mmol/L High 98-107 [facility] Comment on above: Performed By: #### B C #### [address] [address] Director Counseling Bureau: Sarath Olivera MD CO2 [Moles/Vol] 30 mmol/L Normal 20-31 [facility] Comment on above: Performed By: #### B C #### [address] [address] Director Counseling Bureau: Sarath Olivera MD Creatinine [Mass/Vol] 0.7 mg/dL Normal 0.50-0.90 [facility] Comment on above: Performed By: #### B C #### [address] [address] Director Counseling Bureau: Sarath Olivera MD GFR/1.73 sq M.predicted among non-blacks MDRD (S/P/Bld) [Vol rate/Area] 86 mL/min/{1.73_m2} Normal >60 [facility] Comment on above: Result Comment: These [...] secretion. Performed By: #### B C #### [address] [address] Director Counseling Bureau: Sarath Olivera MD Glucose [Mass/Vol] 91 mg/dL Normal 74-99 [facility] Comment on above: Performed By: #### B C #### [address] [address] Director Counseling Bureau: Sarath Olivera MD Potassium [Moles/Vol] 3.9 mmol/L Normal 3.7-5.3 [facility] Comment on above: Performed By: #### B C #### [address] [address] Director Counseling Bureau: Sarath Olivera MD Sodium [Moles/Vol] 144 mmol/L Normal 136-145 [facility] Comment on above: Performed By: #### B C #### [address] [address] Director Counseling Bureau: Sarath Olivera MD Urea nitrogen [Mass/Vol] 20 mg/dL Normal 8-23 [facility] Comment on above: Performed By: #### B C #### [address] [address] Director Counseling Bureau: Sarath Olivera MD CBCon 02-23-2024 Erythrocyte distribution width (RBC) [Ratio] 17.4 % High 11.8-14.4 [facility] Comment on above: Performed By: #### B C #### [address] [address] Director Counseling Bureau: Sarath Olivera MD Hematocrit (Bld) [Volume fraction] 35.7 % Low 36.3-47.1 [facility] Comment on above: Performed By: #### B C #### [address] [address] Director Counseling Bureau: Sarath Olivera MD Hemoglobin (Bld) [Mass/Vol] 10.5 g/dL Low 11.9-15.1 [facility] Comment on above: Performed By: #### B C #### [address] [address] Director Counseling Bureau: Sarath Olivera MD MCH (RBC) [Entitic mass] 30.0 pg Normal 25.2-33.5 [facility] Comment on above: Performed By: #### B C #### [address] [address] Director Counseling Bureau: Sarath Olivera MD MCHC (RBC) [Mass/Vol] 29.4 g/dL Normal 28.4-34.8 [facility] Comment on above: Performed By: #### B C #### [address] [address] Director Counseling Bureau: Sarath Olievra MD MCV (RBC) [Entitic vol] 102.0 fL Normal 82.6-102.9 [facility] Comment on above: Performed By: #### B C #### [address] [address] Director Counseling Bureau: Sarath Olivera MD NRBC Automated 0.0 per 100 WBC Normal 0.0 [facility] Comment on above: Performed By: #### B C #### [address] [address] Director Counseling Bureau: Sarath Olivera MD Platelet mean volume (Bld) [Entitic vol] 11.8 fL Normal 8.1-13.5 [facility] Comment on above: Performed By: #### B C #### [address] [address] Director Counseling Bureau: Sarath Olivera MD Platelets (Bld) [#/Vol] 181 10*3/uL Normal 138-453 [facility] Comment on above: Performed By: #### B C #### [address] [address] Director Counseling Bureau: Sarath Olivera MD RBC (Bld) [#/Vol] 3.50 10*6/uL Low 3.95-5.11 [facility] Comment on above: Performed By: #### B C #### [address] [address] Director Counseling Bureau: Sarath Olivera MD WBC (Bld) [#/Vol] 5.8 10*3/uL Normal 3.5-11.3 [facility] Comment on above: Performed By: #### B C #### [address] [address] Director Counseling Bureau: Sarath Olivera MD PTon 02-23-2024 INR Coag (PPP) [Relative time] 1.6 {INR} Normal [facility] Comment on above: Result Comment: Therapeutic Range: Moderate Anticoagulant Intensity: INR = 2.0-3.0 High Anticoagulant Intensity: INR = 2.5-3.5 Performed By: #### B C #### [address] [address] Director Counseling Bureau: Sarath Olivera MD PT Coag (PPP) [Time] 18.8 s High 11.7-14.9 [facility] Comment on above: Performed By: #### B C #### [address] [address] Director Counseling Bureau: Sarath Olivera MD Basic Metab w/rfx MGon 02-21 Anion gap [Moles/Vol] 7 mmol/L Low 9-16 [facility] Comment on above: Performed By: #### B C #### [address] [address] Director Counseling Bureau: Sarath Olivera MD Calcium [Mass/Vol] 8.3 mg/dL Low 8.6-10.4 [facility] Comment on above: Performed By: #### B C #### [address] [address] Director Counseling Bureau: Sarath Olivera MD Chloride [Moles/Vol] 107 mmol/L Normal 98-107 [facility] Comment on above: Performed By: #### B C #### [address] [address] Director Counseling Bureau: Sarath Olivera MD CO2 [Moles/Vol] 28 mmol/L Normal 20-31 [facility] Comment on above: Performed By: #### B C #### [facility] [address] [place] [address] Director Counseling Bureau: Sarath Olivera MD Creatinine [Mass/Vol] 0.9 mg/dL Normal 0.50-0.90 [facility] Comment on above: Performed By: #### B C #### [facility] [address] [place] [address] Director Counseling Bureau: Sarath Olivera MD GFR/1.73 sq M.predicted among non-blacks MDRD (S/P/Bld) [Vol rate/Area] 67 mL/min/{1.73_m2} Normal >60 [facility] Comment on above: Result Comment: These [...] secretion. Performed By: #### B C #### [facility] [address] [place] [address] Director Counseling Bureau: Sarath Olivera MD Glucose [Mass/Vol] 105 mg/dL High 74-99 [facility] Comment on above: Performed By: #### B C #### [facility] [address] [place] [address] Director Counseling Bureau: Sarath Olivera MD Potassium [Moles/Vol] 4.0 mmol/L Normal 3.7-5.3 [facility] Comment on above: Performed By: #### B C #### [facility] [address] [place] [address] Director Counseling Bureau: Sarath Olivera MD Sodium [Moles/Vol] 142 mmol/L Normal 136-145 [facility] Comment on above: Performed By: #### B C #### [address] [address] Director Counseling Bureau: Sarath Olivera MD Urea nitrogen [Mass/Vol] 24 mg/dL High 8- [facility] Comment on above: Performed By: #### B C #### [address] [address] Director Counseling Bureau: Sarath Olivera MD CBCon 02-22-2024 Erythrocyte distribution width (RBC) [Ratio] 17.2 % High 11.8-14.4 [facility] Comment on above: Performed By: #### B C #### [address] [address] Director Counseling Bureau: Sarath Olivera MD Hematocrit (Bld) [Volume fraction] 32.6 % Low 36.3-47.1 [facility] Comment on above: Performed By: #### B C #### [address] [address] Director Counseling Bureau: Sarath Olivera MD Hemoglobin (Bld) [Mass/Vol] 9.9 g/dL Low 11.9-15.1 [facility] Comment on above: Performed By: #### B C #### [address] [address] Director Counseling Bureau: Sarath Olivera MD MCH (RBC) [Entitic mass] 30.6 pg Normal 25.2-33.5 [facility] Comment on above: Performed By: #### B C #### [address] [address] Director Counseling Bureau: Sarath Olivera MD MCHC (RBC) [Mass/Vol] 30.4 g/dL Normal 28.4-34.8 [facility] Comment on above: Performed By: #### B C #### [address] [address] Director Counseling Bureau: Sarath Olivera MD MCV (RBC) [Entitic vol] 100.6 fL Normal 82.6-102.9 [facility] Comment on above: Performed By: #### B C #### [address] [address] Director Counseling Bureau: Sarath Olivera MD NRBC Automated 0.0 per 100 WBC Normal 0.0 [facility] Comment on above: Performed By: #### B C #### [address] [address] Director Counseling Bureau: Sarath Olivera MD Platelet mean volume (Bld) [Entitic vol] 12.0 fL Normal 8.1-13.5 [facility] Comment on above: Performed By: #### B C #### [address] [address] Director Counseling Bureau: Sarath Olivera MD Platelets (Bld) [#/Vol] 192 10*3/uL Normal 138-453 [facility] Comment on above: Performed By: #### B C #### [address] [address] Director Counseling Bureau: Sarath Olivera MD RBC (Bld) [#/Vol] 3.24 10*6/uL Low 3.95-5.11 [facility] Comment on above: Performed By: #### B C #### [address] [address] Director Counseling Bureau: Sarath Olivera MD WBC (Bld) [#/Vol] 8.0 10*3/uL Normal 3.5-11.3 [facility] Comment on above: Performed By: #### B C #### [address] [address] Director Counseling Bureau: Sarath Olivera MD PTon 02-22-2024 INR Coag (PPP) [Relative time] 1.6 {INR} Normal [facility] Comment on above: Result Comment: Therapeutic Range: Moderate Anticoagulant Intensity: INR = 2.0-3.0 High Anticoagulant Intensity: INR = 2.5-3.5 Performed By: #### D BOOKER UAMIC #### [facility] [address] [place] [address] Director Counseling Bureau: Sarath Olivera MD PT Coag (PPP) [Time] 18.6 s High 11.7-14.9 [facility] Comment on above: Performed By: #### D BOOKER UAMIC #### [facility] [address] [place] [address] Director Counseling Bureau: Sarath Olivera MD Basic Metab w/rfx MGon 02-20 Anion gap [Moles/Vol] 6 mmol/L Low 9-16 [facility] Comment on above: Performed By: #### B MPX, PT, CBC ####[facility] [address] [place], [place] [address])[phone] Director: Sarath Olivera MD Calcium [Mass/Vol] 8.5 mg/dL Low 8.6-10.4 [facility] Comment on above: Performed By: #### B MPX, PT, CBC ####[facility] [address] [place], [place] [phone] Director: Sarath Olivera MD Chloride [Moles/Vol] 108 mmol/L High 98-107 [facility] Comment on above: Performed By: #### B MPX, PT, CBC ####[facility] [address] [place], [place] [phone] Director: Sarath Olivera MD CO2 [Moles/Vol] 29 mmol/L Normal 20-31 [facility] Comment on above: Performed By: #### B MPX, PT, CBC ####[facility] [address] [place], [place] [address])[phone] Director: Sarath Olivera MD Creatinine [Mass/Vol] 0.7 mg/dL Normal 0.50-0.90 [facility] Comment on above: Performed By: #### B MPX, PT, CBC ####[facility] [address] [place] [address] Lab Director: Sarath Olivera MD GFR/1.73 sq M.predicted among non-blacks MDRD (S/P/Bld) [Vol rate/Area] 81 mL/min/{1.73_m2} Normal >60 [facility] Comment on above: Result Comment: These [...] Performed By: #### B MPX, PT, CBC ####[facility] [address] [place] [address] [phone] Director: Sarath Olivera MD Glucose [Mass/Vol] 122 mg/dL High 74-99 [facility] Comment on above: Performed By: #### B MPX, PT, CBC ####[facility] [address] [place] [address] [phone] Director: Sarath Olivera MD Potassium [Moles/Vol] 4.2 mmol/L Normal 3.7-5.3 [facility] Comment on above: Performed By: #### B MPX, PT, CBC ####[facility] [address] [place] [address] [phone] Director: Sarath Olivera MD Sodium [Moles/Vol] 143 mmol/L Normal 136-145 [facility] Comment on above: Performed By: #### B MPX, PT, CBC ####[facility] [address] [place] [address] Lab Director: Sarath Olivera MD Urea nitrogen [Mass/Vol] 22 mg/dL Normal 8-23 [facility] Comment on above: Performed By: #### B MPX, PT, CBC ####[facility] [address] [place], [place] [phone] Director: Sarath Olivera MD CBCon 02-21-2024 Erythrocyte distribution width (RBC) [Ratio] 17.5 % High 11.8-14.4 [facility] Comment on above: Performed By: #### B MPX, PT, CBC ####[facility] [address] [place], [place] [phone] Director: Sarath Olivera MD Hematocrit (Bld) [Volume fraction] 32.1 % Low 36.3-47.1 [facility] Comment on above: Performed By: #### B MPX, PT, CBC ####[facility] [address] [place], [place] [phone] Director: Sarath Olivera MD Hemoglobin (Bld) [Mass/Vol] 9.7 g/dL Low 11.9-15.1 [facility] Comment on above: Performed By: #### B MPX, PT, CBC ####[facility] [address] [place], [place] [phone] Director: Sarath Olivera MD MCH (RBC) [Entitic mass] 30.5 pg Normal 25.2-33.5 [facility] Comment on above: Performed By: #### B MPX, PT, CBC ####[facility] [address] [place], [place] [phone] Director: Sarath Olivera MD MCHC (RBC) [Mass/Vol] 30.2 g/dL Normal 28.4-34.8 [facility] Comment on above: Performed By: #### B MPX, PT, CBC ####[facility] [address] [place], [place] [phone] Director: Sarath Olivera MD MCV (RBC) [Entitic vol] 100.9 fL Normal 82.6-102.9 [facility] Comment on above: Performed By: #### B MPX, PT, CBC ####[facility] [address] [place] [address] [phone] Director: Sarath Olivera MD NRBC Automated 0.0 per 100 WBC Normal 0.0 [facility] Comment on above: Performed By: #### B MPX, PT, CBC ####[address] [phone] Director: Sarath Olivera MD Platelet mean volume (Bld) [Entitic vol] 11.8 fL Normal 8.1-13.5 [facility] Comment on above: Performed By: #### B MPX, PT, CBC ####[facility] [address] [place] [address] [phone] Director: Sarath Olivera MD Platelets (Bld) [#/Vol] 183 10*3/uL Normal 138-453 [facility] Comment on above: Performed By: #### B MPX, PT, CBC ####[address] [phone] Director: Sarath Olivera MD RBC (Bld) [#/Vol] 3.18 10*6/uL Low 3.95-5.11 [facility] Comment on above: Performed By: #### B MPX, PT, CBC ####[facility] [address] [place] [address] [phone] Director: Sarath Olivera MD WBC (Bld) [#/Vol] 10.7 10*3/uL Normal 3.5-11.3 [facility] Comment on above: Performed By: #### B MPX, PT, CBC ####[facility] [address] Lab Director: Sarath Olivera MD PTon 02-21-2024 INR Coag (PPP) [Relative time] 1.6 {INR} Normal [facility] Comment on above: Result Comment: Therapeutic Range: Moderate Anticoagulant Intensity: INR = 2.0-3.0 High Anticoagulant Intensity: INR = 2.5-3.5 Performed By: #### B MPX, PT, CBC ####[address] [address] Lab Director: Sarath Olivera MD PT Coag (PPP) [Time] 18.8 s High 11.7-14.9 [facility] Comment on above: Performed By: #### B MPX, PT, CBC ####[facility] [address] [place] [address] Lab Director: Sarath Olivera MD Basic Metab w/rfx MGon 02-193 Anion gap [Moles/Vol] 6 mmol/L Low 9-16 [facility] Comment on above: Performed By: #### P T, BMPX, CBC ####[facility] [address] [place] [address] Lab Director: Sarath Olivera MD Calcium [Mass/Vol] 8.6 mg/dL Normal 8.6-10.4 [facility] Comment on above: Performed By: #### P T, BMPX, CBC ####[facility] [address] [place] [address] Lab Director: Sarath Olivera MD Chloride [Moles/Vol] 107 mmol/L Normal 98-107 [facility] Comment on above: Performed By: #### P T, BMPX, CBC ####[facility] [address] [place] [address] Lab Director: Sarath lOivera MD CO2 [Moles/Vol] 30 mmol/L Normal 20-31 [facility] Comment on above: Performed By: #### P T, BMPX, CBC ####[facility] [address] [place] [address] Lab Director: Sarath Olivera MD Creatinine [Mass/Vol] 0.9 mg/dL Normal 0.50-0.90 [facility] Comment on above: Performed By: #### P T, BMPX, CBC ####[facility] [address] [place] [address] Lab Director: Sarath Olivera MD GFR/1.73 sq M.predicted among non-blacks MDRD (S/P/Bld) [Vol rate/Area] 64 mL/min/{1.73_m2} Normal >60 [facility] Comment on above: Result Comment: These [...] By: #### P T, BMPX, CBC ####[facility] [address] [place] [address] Lab Director: Sarath Olivera MD Glucose [Mass/Vol] 143 mg/dL High 74-99 [facility] Comment on above: Performed By: #### P T, BMPX, CBC ####[facility] [address] [place] [address] Lab Director: Sarath Olivera MD Potassium [Moles/Vol] 4.2 mmol/L Normal 3.7-5.3 [facility] Comment on above: Performed By: #### P T, BMPX, CBC ####[facility] [address] [place] [address] Lab Director: Sarath Olivera MD Sodium [Moles/Vol] 143 mmol/L Normal 136-145 [facility] Comment on above: Performed By: #### P T, BMPX, CBC ####[facility] [address] [place] [address] Lab Director: Sarath Olivera MD Urea nitrogen [Mass/Vol] 20 mg/dL Normal 8-23 [facility] Comment on above: Performed By: #### P T, BMPX, CBC ####[facility] [address] [place] [address] Lab Director: Sarath Olivera MD CBCon 02-20-2024 Erythrocyte distribution width (RBC) [Ratio] 17.4 % High 11.8-14.4 [facility] Comment on above: Performed By: #### P T, BMPX, CBC ####[facility] [address] [place] [address] Lab Director: Sarath Olivera MD Hematocrit (Bld) [Volume fraction] 32.6 % Low 36.3-47.1 [facility] Comment on above: Performed By: #### P T, BMPX, CBC ####[facility] [address] [place] [address] Lab Director: Sarath Olivera MD Hemoglobin (Bld) [Mass/Vol] 9.9 g/dL Low 11.9-15.1 [facility] Comment on above: Performed By: #### P T, BMPX, CBC ####[facility] [address] [place] [address] Lab Director: Sarath Olivera MD MCH (RBC) [Entitic mass] 30.7 pg Normal 25.2-33.5 [facility] Comment on above: Performed By: #### P T, BMPX, CBC ####[facility] [address] [place] [address] Lab Director: Sarath Olivera MD MCHC (RBC) [Mass/Vol] 30.4 g/dL Normal 28.4-34.8 [facility] Comment on above: Performed By: #### P T, BMPX, CBC ####[facility] [address] [place] [address] [phone] Director: Sarath Olivera MD MCV (RBC) [Entitic vol] 100.9 fL Normal 82.6-102.9 [facility] Comment on above: Performed By: #### P T, BMPX, CBC ####[facility] [address] [place] [address] [phone] Director: Sarath Olivera MD NRBC Automated 0.0 per 100 WBC Normal 0.0 [facility] Comment on above: Performed By: #### P T, BMPX, CBC ####[address] [phone] Director: Sarath Olivera MD Platelet mean volume (Bld) [Entitic vol] 11.6 fL Normal 8.1-13.5 [facility] Comment on above: Performed By: #### P T, BMPX, CBC ####[address] [phone] Director: Sarath Olivera MD Platelets (Bld) [#/Vol] 176 10*3/uL Normal 138-453 [facility] Comment on above: Performed By: #### P T, BMPX, CBC ####[facility] [address] [place] [address] [phone] Director: Sarath Olivera MD RBC (Bld) [#/Vol] 3.23 10*6/uL Low 3.95-5.11 [facility] Comment on above: Performed By: #### P T, BMPX, CBC ####[facility] [address] [place] [address] [phone] Director: Sarath Olivera MD WBC (Bld) [#/Vol] 12.8 10*3/uL High 3.5-11.3 [facility] Comment on above: Performed By: #### P T, BMPX, CBC ####[facility] [address] [place] [address] Lab Director: Sarath Olivera MD PTon 02-20-2024 INR Coag (PPP) [Relative time] 1.7 {INR} Normal [facility] Comment on above: Result Comment: Therapeutic Range: Moderate Anticoagulant Intensity: INR = 2.0-3.0 High Anticoagulant Intensity: INR = 2.5-3.5 Performed By: #### P T, BMPX, CBC ####[facility] [address] [place] [address] Lab Director: Sarath Olivera MD PT Coag (PPP) [Time] 19.9 s High 11.7-14.9 [facility] Comment on above: Performed By: #### P T, BMPX, CBC ####[facility] [address] [place] [address] Lab Director: Sarath Olivera MD Basic Metab w/rfx MGon 02-18 Anion gap [Moles/Vol] 7 mmol/L Low 9-16 [facility] Comment on above: Performed By: #### C BC, PT, BMPX ####[facility] [address] [place] [address] Lab Director: Sarath Olivera MD Calcium [Mass/Vol] 8.3 mg/dL Low 8.6-10.4 [facility] Comment on above: Performed By: #### C BC, PT, BMPX ####[facility] [address] [place] [address] Lab Director: Sarath Olivera MD Chloride [Moles/Vol] 106 mmol/L Normal 98-107 [facility] Comment on above: Performed By: #### C BC, PT, BMPX ####[facility] [address] [place] [address] Lab Director: Sarath Olivera MD CO2 [Moles/Vol] 27 mmol/L Normal 20-31 [facility] Comment on above: Performed By: #### C BC, PT, BMPX ####[address] [address] Lab Director: Sarath Olivera MD Creatinine [Mass/Vol] 0.8 mg/dL Normal 0.50-0.90 [facility] Comment on above: Performed By: #### C PAOLA, PT, BMPX ####[address] [address] Lab Director: Sarath Olivera MD GFR/1.73 sq M.predicted among non-blacks MDRD (S/P/Bld) [Vol rate/Area] 78 mL/min/{1.73_m2} Normal >60 [facility] Comment on above: Result Comment: These [...] Performed By: #### C PAOLA PT, BMPX ####[facility] [address] [place] [address] Lab Director: Sarath Olivera MD Glucose [Mass/Vol] 174 mg/dL High 74-99 [facility] Comment on above: Performed By: #### C BC PT, BMPX ####[facility] [address] [place] [address] Lab Director: Sarath Olivera MD Potassium [Moles/Vol] 4.3 mmol/L Normal 3.7-5.3 [facility] Comment on above: Performed By: #### C BC, PT, BMPX ####[facility] [address] [place], [place] [phone] Director: Sarath Olivera MD Sodium [Moles/Vol] 140 mmol/L Normal 136-145 [facility] Comment on above: Performed By: #### C BC, PT, BMPX ####[facility] [address] [place], [place] [phone] Director: Sarath Olivera MD Urea nitrogen [Mass/Vol] 14 mg/dL Normal 8-23 [facility] Comment on above: Performed By: #### C BC, PT, BMPX ####[facility] [address] [place], [place] [phone] Director: Sarath Olivera MD CBCon 02-19-2024 Erythrocyte distribution width (RBC) [Ratio] 17.8 % High 11.8-14.4 [facility] Comment on above: Performed By: #### C BC, PT, BMPX ####[facility] [address] [place], [place] [address])[phone] Director: Sarath Olivera MD Hematocrit (Bld) [Volume fraction] 33.5 % Low 36.3-47.1 [facility] Comment on above: Performed By: #### C BC, PT, BMPX ####[facility] [address] [place], [place] [address])[phone] Director: Sarath Olivera MD Hemoglobin (Bld) [Mass/Vol] 9.7 g/dL Low 11.9-15.1 [facility] Comment on above: Performed By: #### C BC, PT, BMPX ####[facility] [address] [place], [place] [phone] Director: Sarath Olivera MD MCH (RBC) [Entitic mass] 31.1 pg Normal 25.2-33.5 [facility] Comment on above: Performed By: #### C BC, PT, BMPX ####[facility] [address] [place], [place] [phone] Director: Sarath Olivera MD MCHC (RBC) [Mass/Vol] 29.0 g/dL Normal 28.4-34.8 [facility] Comment on above: Performed By: #### C BC, PT, BMPX ####[facility] [address] [place], [place] [phone] Director: Sarath Olivera MD MCV (RBC) [Entitic vol] 107.4 fL High 82.6-102.9 [facility] Comment on above: Performed By: #### C BC, PT, BMPX ####[facility] [address] [place], [place] [phone] Director: Sarath Olivera MD NRBC Automated 0.0 per 100 WBC Normal 0.0 [facility] Comment on above: Performed By: #### C BC, PT, BMPX ####[facility] [address] [place] [address] [phone] Director: Sarath Olivera MD Platelet mean volume (Bld) [Entitic vol] 11.5 fL Normal 8.1-13.5 [facility] Comment on above: Performed By: #### C BC, PT, BMPX ####[facility] [address] [place] [address] [phone] Director: Sarath Olivera MD Platelets (Bld) [#/Vol] 165 10*3/uL Normal 138-453 [facility] Comment on above: Performed By: #### C BC, PT, BMPX ####[facility] [address] [place], [place] [phone] Director: Sarath Olivera MD RBC (Bld) [#/Vol] 3.12 10*6/uL Low 3.95-5.11 [facility] Comment on above: Performed By: #### C BC, PT, BMPX ####[facility] [address] [place], [place] [phone] Director: Sarath Olivera MD WBC (Bld) [#/Vol] 10.3 10*3/uL Normal 3.5-11.3 [facility] Comment on above: Performed By: #### C BC, PT, BMPX ####[facility] [address] [place], [place] [address])[phone] Director: Sarath Olivera MD PTon 8 INR Coag (PPP) [Relative time] 1.7 {INR} Normal [facility] Comment on above: Result Comment: Therapeutic Range: Moderate Anticoagulant Intensity: INR = 2.0-3.0 High Anticoagulant Intensity: INR = 2.5-3.5 Performed By: #### C BC, PT, BMPX ####[place], [place] [address])[phone] Director: Sarath Olivera MD PT Coag (PPP) [Time] 19.3 s High 11.7-14.9 [facility] Comment on above: Performed By: #### C BC, PT, BMPX ####[place], [place] [address])[phone] Director: Sarath Olivera MD CBC with Diffon 8 Abs. Basophil <0.03 Normal 0.00-0.20 [facility] Comment on above: Performed By: #### B C #### [facility] [place] [address] [place] [address] Director Counseling Bureau: Sarath Olivera MD Abs. Eosinophil <0.03 Normal 0.00-0.44 [facility] Comment on above: Performed By: #### B C #### [facility] [address] [place] [address] Director Counseling Bureau: Sarath Olivera MD Abs.Imm.Granulocyte 0.06 k/uL Normal 0.00-0.30 [facility] Comment on above: Performed By: #### B C #### [address] [address] Director Counseling Bureau: Sarath Olivera MD Abs.Neutrophil (Seg) 9.40 k/uL High 1.50-8.10 [facility] Comment on above: Performed By: #### B C #### [address] [address] Director Counseling Bureau: Sarath Olivera MD Basophils/100 WBC (Bld) 0 % Normal 0-2 [facility] Comment on above: Performed By: #### B C #### [address] [address] Director Counseling Bureau: Sarath Olivera MD Eosinophils/100 WBC (Bld) 0 % Low 1-4 [facility] Comment on above: Performed By: #### B C #### [address] [address] Director Counseling Bureau: Sarath Olivera MD Erythrocyte distribution width (RBC) [Ratio] 17.9 % High 11.8-14.4 [facility] Comment on above: Performed By: #### B C #### [address] [address] Director Counseling Bureau: Sarath Olivera MD Hematocrit (Bld) [Volume fraction] 39.2 % Normal 36.3-47.1 [facility] Comment on above: Performed By: #### B C #### [address] [address] Director Counseling Bureau: Sarath Olivera MD Hemoglobin (Bld) [Mass/Vol] 11.9 g/dL Normal 11.9-15.1 [facility] Comment on above: Performed By: #### B C #### [address] [address] Director Counseling Bureau: Sarath Olivera MD Immature granulocytes/100 WBC (Bld) 1 % High 0 [facility] Comment on above: Performed By: #### B C #### [address] [address] Director Counseling Bureau: Sarath Olivera MD Lymphocytes (Bld) [#/Vol] 1.51 10*3/uL Normal 1.10-3.70 [facility] Comment on above: Performed By: #### B C #### [address] [address] Director Counseling Bureau: Sarath Olivera MD Lymphocytes/100 WBC (Bld) 13 % Low 24-43 [facility] Comment on above: Performed By: #### B C #### [address] [address] Director Counseling Bureau: Sarath Olivera MD MCH (RBC) [Entitic mass] 30.9 pg Normal 25.2-33.5 [facility] Comment on above: Performed By: #### B C #### [place] [address] Director Counseling Bureau: Sarath Olivera MD MCHC (RBC) [Mass/Vol] 30.4 g/dL Normal 28.4-34.8 [facility] Comment on above: Performed By: #### B C #### [address] [address] Director Counseling Bureau: Sarath Olivera MD MCV (RBC) [Entitic vol] 101.8 fL Normal 82.6-102.9 [facility] Comment on above: Performed By: #### B C #### [address] [address] Director Counseling Bureau: Sarath Olivera MD Monocytes (Bld) [#/Vol] 0.50 10*3/uL Normal 0.10-1.20 [facility] Comment on above: Performed By: #### B C #### [address] [address] Director Counseling Bureau: Sarath Olivera MD Monocytes/100 WBC (Bld) 4 % Normal 3-12 [facility] Comment on above: Performed By: #### B C #### [address] [address] Director Counseling Bureau: Sarath Olivera MD Neutrophil (Seg) 82 % High 36-65 [facility] Comment on above: Performed By: #### B C #### [address] [address] Director Counseling Bureau: Sarath Olivera MD NRBC Automated 0.0 per 100 WBC Normal 0.0 [facility] Comment on above: Performed By: #### B C #### [address] [address] Director Counseling Bureau: Sarath Olivera MD Platelet mean volume (Bld) [Entitic vol] 11.2 fL Normal 8.1-13.5 [facility] Comment on above: Performed By: #### B C #### [address] [address] Director Counseling Bureau: Sarath Olivera MD Platelets (Bld) [#/Vol] 254 10*3/uL Normal 138-453 [facility] Comment on above: Performed By: #### B C #### [address] [address] Director Counseling Bureau: Sarath Olivera MD RBC (Bld) [#/Vol] 3.85 10*6/uL Low 3.95-5.11 [facility] Comment on above: Performed By: #### B C #### [address] [address] Director Counseling Bureau: Sarath Olivera MD RBC morphology finding Nom (Bld) ANISOCYTOSIS PRESENT Normal [facility] Comment on above: Performed By: #### B C #### [address] [address] Director Counseling Bureau: Sarath Olivera MD WBC (Bld) [#/Vol] 11.5 10*3/uL High 3.5-11.3 [facility] Comment on above: Performed By: #### B C #### [address] [address] Director Counseling Bureau: Sarath Olivera MD Comp Metabolic Pr/rfx MGon 0 - Albumin [Mass/Vol] 3.6 g/dL Normal 3.5-5.2 [facility] Comment on above: Performed By: #### B C #### [address] [address] Director Counseling Bureau: Sarath Olivera MD Albumin/Glob Ratio 1.0 Normal 1.0-2.5 [facility] Comment on above: Performed By: #### B C #### [address] [address] Director Counseling Bureau: Sarath Olivera MD Alkaline Phos 131 U/L High 35-104 [facility] Comment on above: Performed By: #### B C #### [address] [address] Director Counseling Bureau: Sarath Olivera MD ALT [Catalytic activity/Vol] 7 U/L Low 10-35 [facility] Comment on above: Performed By: #### B C #### [address] [address] Director Counseling Bureau: Sarath Olivera MD Anion gap [Moles/Vol] 13 mmol/L Normal 9-16 [facility] Comment on above: Performed By: #### B C #### [address] [address] Director Counseling Bureau: Sarath Olivera MD AST [Catalytic activity/Vol] 26 U/L Normal 10-35 [facility] Comment on above: Performed By: #### B C #### [address] [address] Director Counseling Bureau: Sarath Olivera MD Bilirubin [Mass/Vol] 0.5 mg/dL Normal 0.00-1.20 [facility] Comment on above: Performed By: #### B C #### [address] [address] Director Counseling Bureau: Sarath Olivera MD Calcium [Mass/Vol] 9.0 mg/dL Normal 8.6-10.4 [facility] Comment on above: Performed By: #### B C #### [address] [address] Director Counseling Bureau: Sarath Olivera MD Chloride [Moles/Vol] 103 mmol/L Normal 98-107 [facility] Comment on above: Performed By: #### B C #### [address] [address] Director Counseling Bureau: Sarath Olivera MD CO2 [Moles/Vol] 27 mmol/L Normal 20-31 [facility] Comment on above: Performed By: #### B C #### [address] [address] Director Counseling Bureau: Sarath Olivera MD Creatinine [Mass/Vol] 0.9 mg/dL Normal 0.50-0.90 [facility] Comment on above: Performed By: #### B C #### [address] [address] Director Counseling Bureau: Sarath Olivera MD GFR/1.73 sq M.predicted among non-blacks MDRD (S/P/Bld) [Vol rate/Area] 61 mL/min/{1.73_m2} Normal >60 [facility] Comment on above: Result Comment: These [...] secretion. Performed By: #### B C #### [facility] [address] [place] [address] Director Counseling Bureau: Sarath Olivera MD Glucose [Mass/Vol] 240 mg/dL High 74-99 [facility] Comment on above: Performed By: #### B C #### [address] [address] Director Counseling Bureau: Sarath Olivera MD Potassium [Moles/Vol] 4.4 mmol/L Normal 3.7-5.3 [facility] Comment on above: Performed By: #### B C #### [facility] [address] [place] [address] Director Counseling Bureau: Sarath Olivera MD Protein [Mass/Vol] 6.4 g/dL Low 6.6-8.7 [facility] Comment on above: Performed By: #### B C #### [facility] [address] [place] [address] Director Counseling Bureau: Sarath Olivera MD Sodium [Moles/Vol] 143 mmol/L Normal 136-145 [facility] Comment on above: Performed By: #### B C #### [address] [address] Director Counseling Bureau: Sarath Olivera MD Urea nitrogen [Mass/Vol] 10 mg/dL Normal 8-23 [facility] Comment on above: Performed By: #### B C #### [address] [address] Director Counseling Bureau: Sarath Olivera MD PTon 02-18-2024 INR Coag (PPP) [Relative time] 1.4 {INR} Normal [facility] Comment on above: Result Comment: Therapeutic Range: Moderate Anticoagulant Intensity: INR = 2.0-3.0 High Anticoagulant Intensity: INR = 2.5-3.5 Performed By: #### B C #### [address] [address] Director Counseling Bureau: Sarath Olivera MD PT Coag (PPP) [Time] 17.1 s High 11.7-14.9 [facility] Comment on above: Performed By: #### B C #### [address] [address] Director Counseling Bureau: Sarath Olivera MD Type + Screenon 02-18-2024 Type + Screen Sample Expiration 02/20/2024,2359 Arm Band Number [id number] ABO/Rh(D) O POSITIVE Antibody Screen NEGATIVE Unit Number [id number] Blood Component Type Leukocyte Reduced Red Cell Unit Division 00 Status of Unit REL FROM ALLOC Transfusion Status OK TO TRANSFUSE Crossmatch Result COMPATIBLE Unit Number [id number] Blood Component Type Leukocyte Reduced Red Cell Unit Division 00 Status of Unit REL FROM ALLOC Transfusion Status OK TO TRANSFUSE Crossmatch Result COMPATIBLE Normal [facility] Comment on above: Performed By: #### T YS #### [address] [address] Director Counseling Bureau: Sarath Olivera MD XR SHOULDER LEFT (MIN [...] Lucian Dee MD 02/18/24 Final result Normal [facility] APTTon 02-17-2024 aPTT Coag (Bld) [Time] 28.7 s Normal 23.0-36.5 [facility] Comment on above: Result Comment: IV Heparin Therapy Range: 66.0-92.0 sec Performed By: #### D AU, UAMIC #### [address] [address] Director Counseling Bureau: Sarath Olivera MD aPTT Coag (Bld) [Time] 30.9 s Normal 23.0-36.5 [facility] Comment on above: Result Comment: IV Heparin Therapy Range: 66.0-92.0 sec Performed By: #### B C #### [address] [address] Director Counseling Bureau: Sarath Olivera MD FFP, Transfuseon 02-17-2024 FFP, Transfuse Unit Number [id number] Blood Component Type FRESH PLASMA Unit Division 00 Status of Unit TRANSFUSED Transfusion Status OK TO TRANSFUSE [facility] Comment on above: Performed By: #### B C #### [address] [address] Director Counseling Bureau: Sarath Olivera MD FFP, Transfuse Unit Number [id number] Blood Component Type FRESH PLASMA Unit Division 00 Status of Unit TRANSFUSED Transfusion Status OK TO TRANSFUSE [facility] Comment on above: Performed By: #### T FFP #### [address] [address] Director Counseling Bureau: Sarath Olivera MD PTon 02-17-2024 INR Coag (PPP) [Relative time] 1.5 {INR} Normal [facility] Comment on above: Result Comment: Therapeutic Range: Moderate Anticoagulant Intensity: INR = 2.0-3.0 High Anticoagulant Intensity: INR = 2.5-3.5 Performed By: #### D CECY CELESTE #### [facility] [address] [place] [address] Director Counseling Bureau: Sarath Olivera MD PT Coag (PPP) [Time] 17.4 s High 11.7-14.9 [facility] Comment on above: Performed By: #### D CECY CELESTE #### [facility] [address] [place] [address] Director Counseling Bureau: Sarath Olivera MD INR Coag (PPP) [Relative time] 1.7 {INR} Normal [facility] Comment on above: Result Comment: Therapeutic Range: Moderate Anticoagulant Intensity: INR = 2.0-3.0 High Anticoagulant Intensity: INR = 2.5-3.5 Performed By: #### B C #### [facility] [address] [place] [address] Director Counseling Bureau: Sarath Olivera MD PT Coag (PPP) [Time] 19.8 s High 11.7-14.9 [facility] Comment on above: Performed By: #### B C #### [facility] [address] [place] [address] Director Counseling Bureau: Sarath Olivera MD PT (Whole Blood)on 4 Intl. Normal. Ratio 2.0 Normal [facility] Comment on above: Result Comment: Therapeutic Range: Moderate Anticoagulant Intensity: INR = 2.0-3.0 High Anticoagulant Intensity: INR = 2.5-3.5 PT Coag (PPP) [Time] 23.6 s High 10.4-14.2 [facility] CBC with Auto Differentialon 02-02-2024 Basophils (Bld) [#/Vol] [employer] Basophils/100 WBC (Bld) 0 % 0 - 2 % [employer] Eosinophils (Bld) [#/Vol] 0.08 10*3/uL [employer] Eosinophils/100 WBC (Bld) 1 % 1 - 4 % [facility] Erythrocyte distribution width (RBC) [Ratio] 16.1 % High 11.8 - 14.4 % [facility] Hematocrit (Bld) [Volume fraction] 33.7 % Low 36.3 - 47.1 % [facility] Hemoglobin (Bld) [Mass/Vol] 10.4 g/dL Low 11.9 - 15.1 g/dL [facility] Immature granulocytes (Bld) [#/Vol] [facility] Immature granulocytes/100 WBC (Bld) 0 % 0 [facility] Interpretation and review of laboratory results Abnormal [facility] Lymphocytes/100 WBC (Bld) 34 % 24 - 43 % [facility] Lymphocytes/100 WBC (Bld) 1.89 % [facility] MCH (RBC) [Entitic mass] 30.6 pg 25.2 - 33.5 pg [facility] MCHC (RBC) [Mass/Vol] 30.9 g/dL 28.4 - 34.8 g/dL [facility] MCV (RBC) [Entitic vol] 99.1 fL 82.6 - 102.9 fL [facility] Monocytes/100 WBC (Bld) 8 % 3 - 12 % [facility] Monocytes/100 WBC (Bld) 0.44 % [facility] Neutrophils/100 WBC (Bld) 57 % 36 - 65 % [facility] Nucleated RBC/100 WBC (Bld) [Ratio] 0.0 % 0.0 per 100 WBC [facility] Platelet mean volume (Bld) [Entitic vol] 11.6 fL 8.1 - 13.5 fL [facility] Platelets (Bld) [#/Vol] 250 10*3/uL [facility] RBC (Bld) [#/Vol] 3.40 10*6/uL Low 3.95 - 5.1 1 m/uL [facility] Segmented neutrophils/100 WBC (Bld) 3.17 % [facility] WBC other (Bld) [#/Vol] 5.6 [facility] CBC with Diffon 02-02-2024 Abs. Basophil <0.03 Normal 0.00-0.[address] [facility] Comment on above: Performed By: #### C P, CDP #### [facility] [address] [place], [place] [id number] Director Counseling Bureau: Concepción De La Torre MD Abs.Imm.Granulocyte <0.03 Normal 0.00-0.30 [facility] Comment on above: Performed By: #### C P, CDP #### [facility] [address] [place], [place] [address] Director Counseling Bureau: Concepción De La Torre MD Abs.Neutrophil (Seg) 3.17 k/uL Normal 1.50-8.10 [facility] Comment on above: Performed By: #### C P, CDP #### [facility] [address] [place], [facility]83 Director Counseling Bureau: Concepción De La Torre MD Basophils/100 WBC (Bld) 0 % Normal 0-2 [facility] Comment on above: Performed By: #### C P, CDP #### [facility] [address] [place] [address] Dr. [place], [place] [id number] Director Counseling Bureau: Concepción De La Torre MD Eosinophils (Bld) [#/Vol] 0.08 10*3/uL Normal 0.00-0.44 [facility] Comment on above: Performed By: #### C P, CDP #### [facility] [address] [place], [place] [id number] Director Counseling Bureau: Concepción De La Torre MD Eosinophils/100 WBC (Bld) 1 % Normal 1-4 [facility] Comment on above: Performed By: #### C P, CDP #### [address] [place], [place] 0907983 Director Counseling Bureau: Concepción De La Torre MD Erythrocyte distribution width (RBC) [Ratio] 16.1 % High 11.8-14.4 [facility] Comment on above: Performed By: #### C P, CDP #### [facility] [address] [place], [place] [id number] Director Counseling Bureau: Concepción De La Torre MD Hematocrit (Bld) [Volume fraction] 33.7 % Low 36.3-47.1 [facility] Comment on above: Performed By: #### C P, CDP #### [facility] [address] [place], [facility]83 Director Counseling Bureau: Concepción De La Torre MD Hemoglobin (Bld) [Mass/Vol] 10.4 g/dL Low 11.9-15.1 [facility] Comment on above: Performed By: #### C P, CDP #### [address] [place], [place] [id number] Director Counseling Bureau: Concepción De La Torre MD Immature granulocytes/100 WBC (Bld) 0 % Normal 0 [facility] Comment on above: Performed By: #### C P, CDP #### [address] [place], [place] [id number] Director Counseling Bureau: Concepción De La Torre MD Lymphocytes (Bld) [#/Vol] 1.89 10*3/uL Normal 1.10-3.70 [facility] Comment on above: Performed By: #### C P, CDP #### [facility] [address] [place] [address] Dr. [place], [place] [address] Director Counseling Bureau: Concepción De La Torre MD Lymphocytes/100 WBC (Bld) 34 % Normal 24-43 [facility] Comment on above: Performed By: #### C P, CDP #### [address] [place], [facility]83 Director Counseling Bureau: Concepción De La Torre MD MCH (RBC) [Entitic mass] 30.6 pg Normal 25.2-33.5 [facility] Comment on above: Performed By: #### C P, CDP #### [address] [place], [place] 7278883 Director Counseling Bureau: Concepción De La Torre MD MCHC (RBC) [Mass/Vol] 30.9 g/dL Normal 28.4-34.8 [facility] Comment on above: Performed By: #### C P, CDP #### [address] [place], [place] 0389083 Director Counseling Bureau: Concepción De La Torre MD MCV (RBC) [Entitic vol] 99.1 fL Normal 82.6-102.9 [facility] Comment on above: Performed By: #### C P, CDP #### [address] [place], [place] [id number] Director Counseling Bureau: Concepción De La Torre MD Monocytes (Bld) [#/Vol] 0.44 10*3/uL Normal 0.10-1.20 [facility] Comment on above: Performed By: #### C P, CDP #### [address] [place], [place] [id number] Director Counseling Bureau: Concepción De La Torre MD Monocytes/100 WBC (Bld) 8 % Normal 3-12 [facility] Comment on above: Performed By: #### C P, CDP #### [address] [place], [place] [phone] Director Counseling Bureau: Concepción De La Torre MD Neutrophil (Seg) 57 % Normal 36-65 [facility] Comment on above: Performed By: #### C P, CDP #### [address] [place], [place] [id number] Director Counseling Bureau: Concepción De La Torre MD NRBC Automated 0.0 per 100 WBC Normal 0.0 [facility] Comment on above: Performed By: #### C P, CDP #### [address] [place], [place] [id number] Director Counseling Bureau: Concepción De La Torre MD Platelet mean volume (Bld) [Entitic vol] 11.6 fL Normal 8.1-13.5 [facility] Comment on above: Performed By: #### C P, CDP #### [facility] [address] [place] [address] Director Counseling Bureau: Concepción De La Torre MD Platelets (Bld) [#/Vol] 250 10*3/uL Normal 138-453 [facility] Comment on above: Performed By: #### C P, CDP #### [facility] [address] [place] [address] Dr. [place], [place] [phone] Director Counseling Bureau: Concepción De La Torre MD RBC (Bld) [#/Vol] 3.40 10*6/uL Low 3.95-5.11 [facility] Comment on above: Performed By: #### C P, CDP #### [address] [place], [place] [id number] Director Counseling Bureau: Concepción De La Torre MD WBC (Bld) [#/Vol] 5.6 10*3/uL Normal 3.5-11.3 [facility] Comment on above: Performed By: #### C P, CDP #### [address] [place], [place] [id number] Director Counseling Bureau: Concepción De La Torre MD Comp Metabolic Profon 2023 Albumin [Mass/Vol] 2.7 g/dL Low 3.5-5.2 [facility] Comment on above: Performed By: #### C P, CDP #### [facility] [address] [place] [address] Dr. [place], [place] [id number] Director Counseling Bureau: Concepción De La Torre MD Albumin/Glob Ratio 1.0 Normal 1.0-2.5 [facility] Comment on above: Performed By: #### C P, CDP #### [facility] [address] [place] [address] [place] [address] Director Counseling Bureau: Concepción De La Torre MD Alkaline Phos 116 U/L High 35-[address] [facility] Comment on above: Performed By: #### C P, CDP #### [facility] [address] [place], [place] [phone] Director Counseling Bureau: Concepción De La Torre MD ALT [Catalytic activity/Vol] 10 U/L Normal 5-33 [facility] Comment on above: Performed By: #### C P, CDP #### [facility] [address] [place], [place] [id number] Director Counseling Bureau: Concepción De La Torre MD Anion gap [Moles/Vol] 11 mmol/L Normal 9-17 [facility] Comment on above: Performed By: #### C P, CDP #### [facility] [address] [place], [place] 1929683 Director Counseling Bureau: Concepción De La Torre MD AST [Catalytic activity/Vol] 21 U/L Normal <32 [facility] Comment on above: Performed By: #### C P, CDP #### [facility] [address] [place], [place] [id number] Director Counseling Bureau: Concepción De La Torre MD Bilirubin [Mass/Vol] 0.4 mg/dL Normal 0.3-1.2 [facility] Comment on above: Performed By: #### C P, CDP #### [facility] [address] [place], [place] 9961283 Director Counseling Bureau: Concepción De La Torre MD BUN/CRE Ratio 15 Normal 9-[address] [facility] Comment on above: Performed By: #### C P, CDP #### [facility] [address] [place], [place] [phone] Director Counseling Bureau: Concepción De La Trore MD Calcium [Mass/Vol] 7.8 mg/dL Low 8.6-10.4 [facility] Comment on above: Performed By: #### C P, CDP #### [facility] [address] [place], [place] [phone] Director Counseling Bureau: Concepción De La Torre MD Chloride [Moles/Vol] 108 mmol/L High 98-107 [facility] Comment on above: Performed By: #### C P, CDP #### [facility] [address] [place], [place] 9344483 Director Counseling Bureau: Concepción De La Torre MD CO2 [Moles/Vol] 24 mmol/L Normal 20-31 [facility] Comment on above: Performed By: #### C P, CDP #### [facility] [address] [place], [place] [phone] Director Counseling Bureau: Concepción De La Torre MD Creatinine [Mass/Vol] 0.8 mg/dL Normal 0.5-0.9 [facility] Comment on above: Performed By: #### C P, CDP #### [facility] [address] [place] [address] Director Counseling Bureau: Concepción De La Torre MD GFR/1.73 sq M.predicted among non-blacks MDRD (S/P/Bld) [Vol rate/Area] 73 mL/min/{1.73_m2} Normal >60 [facility] Comment on above: Result Comment: [...] Performed By: #### C P, CDP #### [facility] [address] [place], [place] [phone] Director Counseling Bureau: Concepción De La Torre MD Glucose [Mass/Vol] 123 mg/dL High 70-99 [facility] Comment on above: Performed By: #### C P, CDP #### [facility] [address] [place] [address] Director Counseling Bureau: Concepción De La Torre MD Potassium [Moles/Vol] 4.0 mmol/L Normal 3.7-5.3 [facility] Comment on above: Performed By: #### C P, CDP #### [facility] [address] [place] [address] Director Counseling Bureau: Concepción De La Torre MD Protein [Mass/Vol] 5.4 g/dL Low 6.4-8.3 [facility] Comment on above: Performed By: #### C P, CDP #### [facility] [address] [place] [address] Director Counseling Bureau: Concepción De La Torre MD Sodium [Moles/Vol] 143 mmol/L Normal 135-144 [facility] Comment on above: Performed By: #### C P, CDP #### [facility] [address] [place], [place] [phone] Director Counseling Bureau: Concepción De La Torre MD Urea nitrogen [Mass/Vol] 12 mg/dL Normal 8-23 [facility] Comment on above: Performed By: #### C P, CDP #### [facility] [address] [place] [address] Director Counseling Bureau: Concepción De La Torre MD Comprehensive Metabolic Pane [facility] 02-02-2024 Albumin [Mass/Vol] 2.7 g/dL Low 3.5 - 5.2 g/dL [facility] Albumin/Globulin [Mass ratio] 1.0 {ratio} 1.0 - 2.5 [facility] ALP [Catalytic activity/Vol] 116 U/L High 35 - 104 U/L [facility] ALT [Catalytic activity/Vol] 10 U/L 5 - 33 U/L [facility] Anion gap [Moles/Vol] 11 mmol/L 9 - 17 mmol/L [facility] AST [Catalytic activity/Vol] 21 U/L NINF - 32 U/L [facility] Bilirubin [Mass/Vol] 0.4 mg/dL 0.3 - 1 .2 mg/dL [facility] Calcium [Mass/Vol] 7.8 mg/dL Low 8.6 - 10. 4 mg/dL [facility] Chloride [Moles/Vol] 108 mmol/L High 98 - 10 7 mmol/L [facility] CO2 [Moles/Vol] 24 mmol/L 20 - 31 mmol/L [facility] Creatinine [Mass/Vol] 0.8 mg/dL 0.5 - 0.9 mg/dL [facility] Est, Glom Filt Rate 73 - PINF [facility] Comment on above: These results are [...] 123 mg/dL High 70 - 99 mg/dL [facility] Interpretation and review of laboratory results Abnormal [facility] Potassium [Moles/Vol] 4.0 mmol/L 3.7 - 5.3 mmol/L [facility] Protein [Mass/Vol] 5.4 g/dL Low 6.4 - 8.3 g/dL [facility] Sodium [Moles/Vol] 143 mmol/L 135 - 144 mmol/L [facility] Urea nitrogen [Mass/Vol] 12 mg/dL 8 - 23 mg/dL [facility] Urea nitrogen/Creatinine [Mass ratio] 15 mg/mg 9 - [address] [facility] [address] HEAD WO CONTRASTon 2023 CT HEAD [...] ORDERING SYSTEM PROVIDED HISTORY: SDH (subdural hematoma) ([facility]) TECHNOLOGIST PROVIDED HISTORY: F/U SDH [...] Renny Rodriguez MD 01/27/24 Final result Normal [facility] CBC with Diffon 01-26-2024 Abs. Basophil <0.03 Normal 0.00-0.[address] [facility] Comment on above: Performed By: #### C SCHUYLER CMPF #### [address] [place] [id number] Director Counseling Bureau: Concepción De La Torre MD Abs.Imm.Granulocyte 0.03 k/uL Normal 0.00-0.30 [facility] Comment on above: Performed By: #### C SCHUYLER CMPF #### [address] [place], [facility]83 Director Counseling Bureau: Concepción De La Torre MD Abs.Neutrophil (Seg) 2.15 k/uL Normal 1.50-8.10 [facility] Comment on above: Performed By: #### C SCHUYLER CMPF #### [address] [place], [facility]83 Director Counseling Bureau: Concepción De La Torre MD Basophils/100 WBC (Bld) 1 % Normal 0-2 [facility] Comment on above: Performed By: #### C SCHUYLER CMPF #### [address] [place] [address] Director Counseling Bureau: Concepción De La Torre MD Eosinophils (Bld) [#/Vol] 0.04 10*3/uL Normal 0.00-0.44 [facility] Comment on above: Performed By: #### C SCHUYLER CMPF #### [facility] [address] [place], [place] [phone] Director Counseling Bureau: Concepción De La Torre MD Eosinophils/100 WBC (Bld) 1 % Normal 1-4 [facility] Comment on above: Performed By: #### C DP, CMPF #### [address] [place], [place] [id number] Director Counseling Bureau: Concepción De La Torre MD Erythrocyte distribution width (RBC) [Ratio] 16.3 % High 11.8-14.4 [facility] Comment on above: Performed By: #### C DP, CMPF #### [address] [place], [place] [id number] Director Counseling Bureau: Concepción De La Torre MD Hematocrit (Bld) [Volume fraction] 30.9 % Low 36.3-47.1 [facility] Comment on above: Performed By: #### C DP, CMPF #### [address] [place], [place] [phone] Director Counseling Bureau: Concepción De La Torre MD Hemoglobin (Bld) [Mass/Vol] 9.7 g/dL Low 11.9-15.1 [facility] Comment on above: Performed By: #### C DP, CMPF #### [address] [place], [place] [id number] Director Counseling Bureau: Concepción De La Torre MD Immature granulocytes/100 WBC (Bld) 1 % High 0 [facility] Comment on above: Performed By: #### C DP, CMPF #### [address] [place], [place] [phone] Director Counseling Bureau: Concepción De La Torre MD Lymphocytes (Bld) [#/Vol] 0.79 10*3/uL Low 1.10-3.70 [facility] Comment on above: Performed By: #### C DP, CMPF #### [address] [place] [address] Director Counseling Bureau: Concepción De La Torre MD Lymphocytes/100 WBC (Bld) 22 % Low 24-43 [facility] Comment on above: Performed By: #### C DP, CMPF #### [facility] [address] [place] [address] Director Counseling Bureau: Concepción De La Torre MD MCH (RBC) [Entitic mass] 31.4 pg Normal 25.2-33.5 [facility] Comment on above: Performed By: #### C DP, CMPF #### [facility] [address] [place], [facility]83 Director Counseling Bureau: Concepción De La Torre MD MCHC (RBC) [Mass/Vol] 31.4 g/dL Normal 28.4-34.8 [facility] Comment on above: Performed By: #### C DP, CMPF #### [address] [place], [facility]83 Director Counseling Bureau: Concepción De La Torre MD MCV (RBC) [Entitic vol] 100.0 fL Normal 82.6-102.9 [facility] Comment on above: Performed By: #### C DP, CMPF #### [address] [place], [place] 8509483 Director Counseling Bureau: Concepción De La Torre MD Monocytes (Bld) [#/Vol] 0.49 10*3/uL Normal 0.10-1.20 [facility] Comment on above: Performed By: #### C DP, CMPF #### [facility] [address] [place] [address] Director Counseling Bureau: Concepción De La Torre MD Monocytes/100 WBC (Bld) 14 % High 3-12 [facility] Comment on above: Performed By: #### C DP, CMPF #### [facility] [address] [place], [place] [phone] Director Counseling Bureau: Concepción De La Torre MD Neutrophil (Seg) 61 % Normal 36-65 [facility] Comment on above: Performed By: #### C DP, CMPF #### [facility] [address] [place] [address] Director Counseling Bureau: Concepción De La Torre MD NRBC Automated 0.0 per 100 WBC Normal 0.0 [facility] Comment on above: Performed By: #### C DP, CMPF #### [facility] [address] [place] [address] Director Counseling Bureau: Concepción De La Torre MD Platelet mean volume (Bld) [Entitic vol] 11.5 fL Normal 8.1-13.5 [facility] Comment on above: Performed By: #### C DP, CMPF #### [address] [place] [address] Director Counseling Bureau: Concepción De La Torre MD Platelets (Bld) [#/Vol] 271 10*3/uL Normal 138-453 [facility] Comment on above: Performed By: #### C DP, CMPF #### [address] [place], [place] [phone] Director Counseling Bureau: Concepción De La Torre MD RBC (Bld) [#/Vol] 3.09 10*6/uL Low 3.95-5.11 [facility] Comment on above: Performed By: #### C DP, CMPF #### [address] [place] [address] Director Counseling Bureau: Concepción De La Torre MD WBC (Bld) [#/Vol] 3.5 10*3/uL Normal 3.5-11.3 [facility] Comment on above: Performed By: #### C DP, CMPF #### [facility] [address] [place] [address] Director Counseling Bureau: Concepción De La Torre MD Comp Metabol,Fastingon 01-25 Albumin [Mass/Vol] 2.6 g/dL Low 3.5-5.2 [facility] Comment on above: Performed By: #### C DP, CMPF #### [facility] [address] [place], [place] [phone] Director Counseling Bureau: Concepción De La Torre MD Albumin/Glob Ratio 1.1 Normal 1.0-2.5 [facility] Comment on above: Performed By: #### C DP, CMPF #### [facility] [address] [place], [place] [phone] Director Counseling Bureau: Concepción De La Torre MD Alkaline Phos 92 U/L Normal 35-[address] [facility] Comment on above: Performed By: #### C DP, CMPF #### [facility] [address] [place], [place] [phone] Director Counseling Bureau: Concepción De La Torre MD ALT [Catalytic activity/Vol] 18 U/L Normal 5-33 [facility] Comment on above: Performed By: #### C DP, CMPF #### [facility] [address] [place] [address] Dr. [place], [place] [phone] Director Counseling Bureau: Concepción De La Torre MD Anion gap [Moles/Vol] 8 mmol/L Low 9-17 [facility] Comment on above: Performed By: #### C DP, CMPF #### [facility] [address] [place] [address] Dr. [place], [place] [phone] Director Counseling Bureau: Concepción De La Torre MD AST [Catalytic activity/Vol] 23 U/L Normal <32 [facility] Comment on above: Performed By: #### C DP, CMPF #### [facility] [address] [place] [address] Dr. [place], [place] [id number] Director Counseling Bureau: Concepción De La Torre MD Bilirubin [Mass/Vol] 0.5 mg/dL Normal 0.3-1.2 [facility] Comment on above: Performed By: #### C DP, CMPF #### [facility] [address] [place] [address] [place] [address] Director Counseling Bureau: Concepción De La Torre MD BUN/CRE Ratio 19 Normal 9-[address] [facility] Comment on above: Performed By: #### C DP, CMPF #### [facility] [address] [place], [place] 9574583 Director Counseling Bureau: Concepción De La Torre MD Calcium [Mass/Vol] 7.9 mg/dL Low 8.6-10.4 [facility] Comment on above: Performed By: #### C DP, CMPF #### [facility] [address] [place], [place] 9002583 Director Counseling Bureau: Concepción De La Torre MD Chloride [Moles/Vol] 105 mmol/L Normal 98-107 [facility] Comment on above: Performed By: #### C DP, CMPF #### [facility] [address] [place], [place] [phone] Director Counseling Bureau: Concepción De La Torre MD CO2 [Moles/Vol] 27 mmol/L Normal 20-31 [facility] Comment on above: Performed By: #### C DP, CMPF #### [facility] [address] [place], [place] [phone] Director Counseling Bureau: Concepción De La Torre MD Creatinine [Mass/Vol] 0.8 mg/dL Normal 0.5-0.9 [facility] Comment on above: Performed By: #### C DP, CMPF #### [facility] [address] [place] [address] Director Counseling Bureau: Concepción De La Torre MD GFR/1.73 sq M.predicted among non-blacks MDRD (S/P/Bld) [Vol rate/Area] 73 mL/min/{1.73_m2} Normal >60 [facility] Comment on above: Result Comment: [...] Performed By: #### C SCHUYLER, CMPF #### [facility] [address] [place] [address] Dr. [place], [place] [phone] Director Counseling Bureau: Concepción De La Torre MD Glucose [Mass/Vol] 90 mg/dL Normal 70-99 [facility] Comment on above: Performed By: #### C DP, CMPF #### [facility] [address] [place] [address] Director Counseling Bureau: Concepción De La Torre MD Potassium [Moles/Vol] 4.1 mmol/L Normal 3.7-5.3 [facility] Comment on above: Performed By: #### C SCHUYLER, CMPF #### [address] [place] [address] Director Counseling Bureau: Concepción De La Torre MD Protein [Mass/Vol] 5.0 g/dL Low 6.4-8.3 [facility] Comment on above: Performed By: #### C SCHUYLER, CMPF #### [address] [place] [address] Director Counseling Bureau: Concepción De La Torre MD Sodium [Moles/Vol] 140 mmol/L Normal 135-144 [facility] Comment on above: Performed By: #### C DP, CMPF #### [facility] [address] [place] [address] [place] [address] Director Counseling Bureau: Concepción De La Torre MD Urea nitrogen [Mass/Vol] 15 mg/dL Normal 8-23 [facility] Comment on above: Performed By: #### C DP, CMPF #### [address] [place], [place] [id number] Director Counseling Bureau: Concepción De La Torre MD CBC with Diffon 01-19-2024 Abs. Basophil 0.03 k/uL Normal 0.00-0.[address] [facility] Comment on above: Performed By: #### C DP, CP #### [address] [place] [address] Director Counseling Bureau: Concepción De La Torre MD Abs.Imm.Granulocyte 0.05 k/uL Normal 0.00-0.30 [facility] Comment on above: Performed By: #### C DP, CP #### [address] [place] [address] Director Counseling Bureau: Concepción De La Torre MD Abs.Neutrophil (Seg) 5.33 k/uL Normal 1.50-8.10 [facility] Comment on above: Performed By: #### C DP, CP #### [address] [place] [address] Director Counseling Bureau: Concepción De La Torre MD Basophils/100 WBC (Bld) 0 % Normal 0-2 [facility] Comment on above: Performed By: #### C DP, CP #### [address] [place] [address] Director Counseling Bureau: Concepción De La Torre MD Eosinophils (Bld) [#/Vol] 0.07 10*3/uL Normal 0.00-0.44 [facility] Comment on above: Performed By: #### C DP, CP #### [address] [place], [place] [address] Director Counseling Bureau: Concepción De La Torre MD Eosinophils/100 WBC (Bld) 1 % Normal 1-4 [facility] Comment on above: Performed By: #### C DP, CP #### [address] [place] [address] Director Counseling Bureau: Concepción De La Torre MD Erythrocyte distribution width (RBC) [Ratio] 16.6 % High 11.8-14.4 [facility] Comment on above: Performed By: #### C DP, CP #### [place] [address] [place], [place] [id number] Director Counseling Bureau: Concepción De La Torre MD Hematocrit (Bld) [Volume fraction] 30.7 % Low 36.3-47.1 [facility] Comment on above: Performed By: #### C DP, CP #### [facility] [address] [place], [facility]83 Director Counseling Bureau: Concepción De La Torre MD Hemoglobin (Bld) [Mass/Vol] 9.7 g/dL Low 11.9-15.1 [facility] Comment on above: Performed By: #### C DP, CP #### [address] [place], [facility]83 Director Counseling Bureau: Concepción De La Torre MD Immature granulocytes/100 WBC (Bld) 1 % High 0 [facility] Comment on above: Performed By: #### C DP, CP #### [facility] [address] [place] [address] Dr. [place], [facility]83 Director Counseling Bureau: Concepción De La Torre MD Lymphocytes (Bld) [#/Vol] 1.11 10*3/uL Normal 1.10-3.70 [facility] Comment on above: Performed By: #### C DP, CP #### [address] [place], [facility]83 Director Counseling Bureau: Concepción De La Torre MD Lymphocytes/100 WBC (Bld) 15 % Low 24-43 [facility] Comment on above: Performed By: #### C DP, CP #### [facility] [address] [place], [facility]83 Director Counseling Bureau: Concepción De La Torre MD MCH (RBC) [Entitic mass] 31.1 pg Normal 25.2-33.5 [facility] Comment on above: Performed By: #### C DP, CP #### [facility] [address] [place] [address] Dr. [place], [facility]83 Director Counseling Bureau: Concepción De La Torre MD MCHC (RBC) [Mass/Vol] 31.6 g/dL Normal 28.4-34.8 [facility] Comment on above: Performed By: #### C DP, CP #### [facility] [address] [place], [place] [id number] Director Counseling Bureau: Concepción De La Torre MD MCV (RBC) [Entitic vol] 98.4 fL Normal 82.6-102.9 [facility] Comment on above: Performed By: #### C DP, CP #### [address] [place] [address] Director Counseling Bureau: Concepción De La Torre MD Monocytes (Bld) [#/Vol] 0.95 10*3/uL Normal 0.10-1.20 [facility] Comment on above: Performed By: #### C DP, CP #### [address] [place] [address] Director Counseling Bureau: Concepción De La Torre MD Monocytes/100 WBC (Bld) 13 % High 3-12 [facility] Comment on above: Performed By: #### C DP, CP #### [address] [place] [address] Director Counseling Bureau: Concepción De La Torre MD Neutrophil (Seg) 71 % High 36-65 [facility] Comment on above: Performed By: #### C DP, CP #### [address] [place], [place] [id number] Director Counseling Bureau: Concepción De La Torre MD NRBC Automated 0.0 per 100 WBC Normal 0.0 [facility] Comment on above: Performed By: #### C DP, CP #### [address] [place], [place] [id number] Director Counseling Bureau: Concepción De La Torre MD Platelet mean volume (Bld) [Entitic vol] 11.9 fL Normal 8.1-13.5 [facility] Comment on above: Performed By: #### C DP, CP #### [facility] [address] [place], [place] [id number] Director Counseling Bureau: Concepción De La Torre MD Platelets (Bld) [#/Vol] 249 10*3/uL Normal 138-453 [facility] Comment on above: Performed By: #### C DP, CP #### [facility] [address] [place] [address] Director Counseling Bureau: Concepción De La Torre MD RBC (Bld) [#/Vol] 3.12 10*6/uL Low 3.95-5.11 [facility] Comment on above: Performed By: #### C DP, CP #### [facility] [address] [place], [place] [id number] Director Counseling Bureau: Concepción De La Torre MD WBC (Bld) [#/Vol] 7.5 10*3/uL Normal 3.5-11.3 [facility] Comment on above: Performed By: #### C DP, CP #### [facility] [address] [place], [place] [id number] Director Counseling Bureau: Concepción De La Torre MD Comp Metabolic Profon 2023 Albumin [Mass/Vol] 2.6 g/dL Low 3.5-5.2 [facility] Comment on above: Performed By: #### C DP, CP #### [facility] [address] [place], [place] [id number] Director Counseling Bureau: Concepción De aL Torre MD Albumin/Glob Ratio 1.2 Normal 1.0-2.5 [facility] Comment on above: Performed By: #### C DP, CP #### [facility] [address] [place] [address] Director Counseling Bureau: Concepción De La Torre MD Alkaline Phos 78 U/L Normal 35-[address] [facility] Comment on above: Performed By: #### C DP, CP #### [facility] [address] [place], [place] [id number] Director Counseling Bureau: Concepción De La Torre MD ALT [Catalytic activity/Vol] 42 U/L High 5-33 [facility] Comment on above: Performed By: #### C DP, CP #### [facility] [address] [place], [place] [id number] Director Counseling Bureau: Concepción De La Torre MD Anion gap [Moles/Vol] 5 mmol/L Low 9-17 [facility] Comment on above: Performed By: #### C DP, CP #### [facility] [address] [place], [place] [id number] Director Counseling Bureau: Concepción De La Torre MD AST [Catalytic activity/Vol] 43 U/L High <32 [facility] Comment on above: Performed By: #### C DP, CP #### [facility] [address] [place], [place] [id number] Director Counseling Bureau: Concepción De La Torre MD Bilirubin [Mass/Vol] 1.2 mg/dL Normal 0.3-1.2 [facility] Comment on above: Performed By: #### C DP, CP #### [facility] [address] [place], [place] [id number] Director Counseling Bureau: Concepción De La Torre MD BUN/CRE Ratio 27 High 9-[address] [facility] Comment on above: Performed By: #### C DP, CP #### [facility] [address] [place], [place] [id number] Director Counseling Bureau: Concepción De La Torre MD Calcium [Mass/Vol] 7.6 mg/dL Low 8.6-10.4 [facility] Comment on above: Performed By: #### C DP, CP #### [facility] [address] [place], [place] [id number] Director Counseling Bureau: Concepción De La Torre MD Chloride [Moles/Vol] 100 mmol/L Normal 98-107 [facility] Comment on above: Performed By: #### C DP, CP #### [facility] [address] [place] [address] Director Counseling Bureau: Concepción De La Torre MD CO2 [Moles/Vol] 30 mmol/L Normal 20-31 [facility] Comment on above: Performed By: #### C DP, CP #### [facility] [address] [place] [address] Director Counseling Bureau: Concepción De La Torre MD Creatinine [Mass/Vol] 0.7 mg/dL Normal 0.5-0.9 [facility] Comment on above: Performed By: #### C DP, CP #### [facility] [address] [place] [address] Director Counseling Bureau: Concepción De La Torre MD GFR/1.73 sq M.predicted among non-blacks MDRD (S/P/Bld) [Vol rate/Area] 85 mL/min/{1.73_m2} Normal >60 [facility] Comment on above: Result Comment: [...] Performed By: #### C DP, CP #### [facility] [address] [place] [address] Director Counseling Bureau: Concepción De La Torre MD Glucose [Mass/Vol] 98 mg/dL Normal 70-99 [facility] Comment on above: Performed By: #### C DP, CP #### [facility] [address] [place] [address] Director Counseling Bureau: Concepción De La Torre MD Potassium [Moles/Vol] 3.8 mmol/L Normal 3.7-5.3 [facility] Comment on above: Performed By: #### C DP, CP #### [facility] [address] [place] [address] Director Counseling Bureau: Concepción De La Torre MD Protein [Mass/Vol] 4.8 g/dL Low 6.4-8.3 [facility] Comment on above: Performed By: #### C DP, CP #### [facility] [address] [place] [address] Director Counseling Bureau: Concepción De La Torre MD Sodium [Moles/Vol] 135 mmol/L Normal 135-144 [facility] Comment on above: Performed By: #### C DP, CP #### [facility] [address] [place] [address] Director Counseling Bureau: Concepción De La Torre MD Urea nitrogen [Mass/Vol] 19 mg/dL Normal 8-23 [facility] Comment on above: Performed By: #### C DP, CP #### [facility] [address] [place] [address] Director Counseling Bureau: Concepción De La Torre MD CBC with Auto Differentialon 01-15-2024 Basophils (Bld) [#/Vol] 0.03 10*3/uL [facility] Basophils/100 WBC (Bld) 0 % 0 - 2 % [facility] Eosinophils (Bld) [#/Vol] 0.05 10*3/uL [facility] Eosinophils/100 WBC (Bld) 0 % Low 1 - 4 % [facility] Erythrocyte distribution width (RBC) [Ratio] 15.9 % High 11.8 - 14.4 % [facility] Hematocrit (Bld) [Volume fraction] 31.7 % Low 36.3 - 47.1 % [facility] Hemoglobin (Bld) [Mass/Vol] 10.3 g/dL Low 11.9 - 15.1 g/dL [facility] Immature granulocytes (Bld) [#/Vol] 0.09 10*3/uL [facility] Immature granulocytes/100 WBC (Bld) 1 % High 0 [facility] Interpretation and review of laboratory results Abnormal [facility] Lymphocytes/100 WBC (Bld) 7 % Low 24 - 43 % [facility] Lymphocytes/100 WBC (Bld) 0.83 % Low [facility] MCH (RBC) [Entitic mass] 31.1 pg 25.2 - 33.5 pg [facility] MCHC (RBC) [Mass/Vol] 32.5 g/dL 28.4 - 34.8 g/dL [facility] MCV (RBC) [Entitic vol] 95.8 fL 82.6 - 102.9 fL [facility] Monocytes/100 WBC (Bld) 11 % 3 - 12 % [facility] Monocytes/100 WBC (Bld) 1.30 % High [facility] Neutrophils/100 WBC (Bld) 81 % High 36 - 65 % [facility] Nucleated RBC/100 WBC (Bld) [Ratio] 0.0 % 0.0 per 100 WBC [facility] Platelet mean volume (Bld) [Entitic vol] 11.8 fL 8.1 - 13.5 fL [facility] Platelets (Bld) [#/Vol] 176 10*3/uL [facility] RBC (Bld) [#/Vol] 3.31 10*6/uL Low 3.95 - 5.1 1 m/uL [facility] Segmented neutrophils/100 WBC (Bld) 9.73 % High [facility] WBC other (Bld) [#/Vol] 12.0 High [facility] CBC with Diffon 01-15-2024 Abs. Basophil 0.03 k/uL Normal 0.00-0.[address] [facility] Comment on above: Performed By: #### C SCHUYLER, CP #### [facility] [address] [place] [address] Director Counseling Bureau: Concepción De La Torre MD Abs.Imm.Granulocyte 0.09 k/uL Normal 0.00-0.30 [facility] Comment on above: Performed By: #### C SCHUYLER, CP #### [facility] [address] [place], [place] [id number] Director Counseling Bureau: Concepción De La Torre MD Abs.Neutrophil (Seg) 9.73 k/uL High 1.50-8.10 [facility] Comment on above: Performed By: #### C DP, CP #### [address] [place], [facility]83 Director Counseling Bureau: Concepción De La Torre MD Basophils/100 WBC (Bld) 0 % Normal 0-2 [facility] Comment on above: Performed By: #### C DP, CP #### [address] [place] [address] Director Counseling Bureau: Concepción De La Torre MD Eosinophils (Bld) [#/Vol] 0.05 10*3/uL Normal 0.00-0.44 [facility] Comment on above: Performed By: #### C DP, CP #### [address] [place], [facility]83 Director Counseling Bureau: Concepción De La Torre MD Eosinophils/100 WBC (Bld) 0 % Low 1-4 [facility] Comment on above: Performed By: #### C DP, CP #### [address] [place], [facility]83 Director Counseling Bureau: Concepción De La Torre MD Erythrocyte distribution width (RBC) [Ratio] 15.9 % High 11.8-14.4 [facility] Comment on above: Performed By: #### C DP, CP #### [address] [place], [facility]83 Director Counseling Bureau: Concepción De La Torre MD Hematocrit (Bld) [Volume fraction] 31.7 % Low 36.3-47.1 [facility] Comment on above: Performed By: #### C DP, CP #### [address] [place], [facility]83 Director Counseling Bureau: Concepción De La Torre MD Hemoglobin (Bld) [Mass/Vol] 10.3 g/dL Low 11.9-15.1 [facility] Comment on above: Performed By: #### C DP, CP #### [address] [place] [address] Director Counseling Bureau: Concepción De La Torre MD Immature granulocytes/100 WBC (Bld) 1 % High 0 [facility] Comment on above: Performed By: #### C DP, CP #### [facility] [address] [place] [address] Dr. [place], [place] [id number] Director Counseling Bureau: Cocnepción De La Torre MD Lymphocytes (Bld) [#/Vol] 0.83 10*3/uL Low 1.10-3.70 [facility] Comment on above: Performed By: #### C DP, CP #### [address] [place], [facility]83 Director Counseling Bureau: Concepción De La Torre MD Lymphocytes/100 WBC (Bld) 7 % Low 24-43 [facility] Comment on above: Performed By: #### C DP, CP #### [address] [place], [place] [id number] Director Counseling Bureau: Concepción De La Torre MD MCH (RBC) [Entitic mass] 31.1 pg Normal 25.2-33.5 [facility] Comment on above: Performed By: #### C DP, CP #### [address] [place], [place] [id number] Director Counseling Bureau: Concepción De La Torre MD MCHC (RBC) [Mass/Vol] 32.5 g/dL Normal 28.4-34.8 [facility] Comment on above: Performed By: #### C DP, CP #### [address] [place] [address] Director Counseling Bureau: Concepción De La Torre MD MCV (RBC) [Entitic vol] 95.8 fL Normal 82.6-102.9 [facility] Comment on above: Performed By: #### C DP, CP #### [facility] [address] [place], [place] [id number] Director Counseling Bureau: Concepción De La Torre MD Monocytes (Bld) [#/Vol] 1.30 10*3/uL High 0.10-1.20 [facility] Comment on above: Performed By: #### C DP, CP #### [facility] [address] [place], [place] [id number] Director Counseling Bureau: Concepción De La Torre MD Monocytes/100 WBC (Bld) 11 % Normal 3-12 [facility] Comment on above: Performed By: #### C DP, CP #### [address] [place], [facility]83 Director Counseling Bureau: Concepción De La Torre MD Neutrophil (Seg) 81 % High 36-65 [facility] Comment on above: Performed By: #### C DP, CP #### [address] [place], [place] [id number] Director Counseling Bureau: Concepción De La Torre MD NRBC Automated 0.0 per 100 WBC Normal 0.0 [facility] Comment on above: Performed By: #### C DP, CP #### [address] [place], [facility]83 Director Counseling Bureau: Concepción De La Torre MD Platelet mean volume (Bld) [Entitic vol] 11.8 fL Normal 8.1-13.5 [facility] Comment on above: Performed By: #### C DP, CP #### [address] [place], [place] [id number] Director Counseling Bureau: Concepción De La Torre MD Platelets (Bld) [#/Vol] 176 10*3/uL Normal 138-453 [facility] Comment on above: Performed By: #### C DP, CP #### [address] [place], [place] [id number] Director Counseling Bureau: Concepción De La Torre MD RBC (Bld) [#/Vol] 3.31 10*6/uL Low 3.95-5.11 [facility] Comment on above: Performed By: #### C DP, CP #### [facility] [address] [place], [place] [phone] Director Counseling Bureau: Concepción De La Torre MD WBC (Bld) [#/Vol] 12.0 10*3/uL High 3.5-11.3 [facility] Comment on above: Performed By: #### C DP, CP #### [address] [place] [address] Director Counseling Bureau: Concepción De La Torre MD Comp Metabolic Profon 2023 Albumin [Mass/Vol] 2.8 g/dL Low 3.5-5.2 [facility] Comment on above: Performed By: #### C DP, CP #### [facility] [address] [place] [address] Dr. [place], [place] [id number] Director Counseling Bureau: Concepción De La Torre MD Albumin/Glob Ratio 1.2 Normal 1.0-2.5 [facility] Comment on above: Performed By: #### C DP, CP #### [address] [place], [place] 0534383 Director Counseling Bureau: Concepción De La Torre MD Alkaline Phos 74 U/L Normal 35-[address] [facility] Comment on above: Performed By: #### C DP, CP #### [facility] [address] [place], [place] [id number] Director Counseling Bureau: Concepción De La Torre MD ALT [Catalytic activity/Vol] 22 U/L Normal 5-33 [facility] Comment on above: Performed By: #### C DP, CP #### [facility] [address] [place], [place] [id number] Director Counseling Bureau: Concepción De La Torre MD Anion gap [Moles/Vol] 10 mmol/L Normal 9-17 [facility] Comment on above: Performed By: #### C DP, CP #### [facility] [address] [place], [place] [id number] Director Counseling Bureau: Concepción De La Torre MD AST [Catalytic activity/Vol] 36 U/L High <32 [facility] Comment on above: Performed By: #### C DP, CP #### [facility] [address] [place], [place] [id number] Director Counseling Bureau: Concepción De La Torre MD Bilirubin [Mass/Vol] 1.3 mg/dL High 0.3-1.2 [facility] Comment on above: Performed By: #### C DP, CP #### [facility] [address] [place], [place] [id number] Director Counseling Bureau: Concepción De La Torre MD BUN/CRE Ratio 34 High 9-[address] [facility] Comment on above: Performed By: #### C DP, CP #### [address] [place], [place] 0622083 Director Counseling Bureau: Concepción De La Torre MD Calcium [Mass/Vol] 8.2 mg/dL Low 8.6-10.4 [facility] Comment on above: Performed By: #### C DP, CP #### [facility] [address] [place], [place] [id number] Director Counseling Bureau: Concepción De La Torre MD Chloride [Moles/Vol] 101 mmol/L Normal 98-107 [facility] Comment on above: Performed By: #### C DP, CP #### [facility] [address] [place] [address] Director Counseling Bureau: Concepción De La Torre MD CO2 [Moles/Vol] 26 mmol/L Normal 20-31 [facility] Comment on above: Performed By: #### C DP, CP #### [facility] [address] [place] [address] [place] [address] Director Counseling Bureau: Concepción De La Torre MD Creatinine [Mass/Vol] 0.8 mg/dL Normal 0.5-0.9 [facility] Comment on above: Performed By: #### C DP, CP #### [address] [place] [address] Director Counseling Bureau: Concepción De La Torre MD GFR/1.73 sq M.predicted among non-blacks MDRD (S/P/Bld) [Vol rate/Area] 73 mL/min/{1.73_m2} Normal >60 [facility] Comment on above: Result Comment: [...] Performed By: #### C DP, CP #### [address] [place] [address] Director Counseling Bureau: Concepción De La Torre MD Glucose [Mass/Vol] 101 mg/dL High 70-99 [facility] Comment on above: Performed By: #### C DP, CP #### [address] [place] [address] Director Counseling Bureau: Concepción De La Torre MD Potassium [Moles/Vol] 4.6 mmol/L Normal 3.7-5.3 [facility] Comment on above: Performed By: #### C DP, CP #### [address] [place] [address] Director Counseling Bureau: Concepción De La Torre MD Protein [Mass/Vol] 5.2 g/dL Low 6.4-8.3 [facility] Comment on above: Performed By: #### C DP, CP #### [facility] [address] [place], [place] [id number] Director Counseling Bureau: Concepción De La Torre MD Sodium [Moles/Vol] 137 mmol/L Normal 135-144 [facility] Comment on above: Performed By: #### C DP, CP #### [facility] [address] [place], [place] [id number] Director Counseling Bureau: Concepción De La Torre MD Urea nitrogen [Mass/Vol] 27 mg/dL High 8-23 [facility] Comment on above: Performed By: #### C DP, CP #### [facility] [address] [place] [address] Director Counseling Bureau: Concepción De La Torre MD Comprehensive Metabolic Pane [facility] 01-15-2024 Albumin [Mass/Vol] 2.8 g/dL Low 3.5 - 5.2 g/dL [facility] Albumin/Globulin [Mass ratio] 1.2 {ratio} 1.0 - 2.5 [facility] ALP [Catalytic activity/Vol] 74 U/L 35 - 104 U/L [facility] ALT [Catalytic activity/Vol] 22 U/L 5 - 33 U/L [facility] Anion gap [Moles/Vol] 10 mmol/L 9 - 17 mmol/L [facility] AST [Catalytic activity/Vol] 36 U/L High NINF - 32 U/L [facility] Bilirubin [Mass/Vol] 1.3 mg/dL High 0.3 - 1 .2 mg/dL [facility] Calcium [Mass/Vol] 8.2 mg/dL Low 8.6 - 10. 4 mg/dL [facility] Chloride [Moles/Vol] 101 mmol/L 98 - 10 7 mmol/L [facility] CO2 [Moles/Vol] 26 mmol/L 20 - 31 mmol/L [facility] Creatinine [Mass/Vol] 0.8 mg/dL 0.5 - 0.9 mg/dL [facility] Est, Glom Filt Rate 73 - PINF [facility] Comment on above: These results are [...] 101 mg/dL High 70 - 99 mg/dL [facility] Interpretation and review of laboratory results Abnormal [facility] Potassium [Moles/Vol] 4.6 mmol/L 3.7 - 5.3 mmol/L [facility] Protein [Mass/Vol] 5.2 g/dL Low 6.4 - 8.3 g/dL [facility] Sodium [Moles/Vol] 137 mmol/L 135 - 144 mmol/L [facility] Urea nitrogen [Mass/Vol] 27 mg/dL High 8 - 23 mg/dL [facility] Urea nitrogen/Creatinine [Mass ratio] 34 mg/mg High 9 - 20 [facility] PTon 01-13-2024 INR Coag (PPP) [Relative time] 1.3 {INR} Normal [facility] Comment on above: Result Comment: Therapeutic Range: Moderate Anticoagulant Intensity: INR = 2.0-3.0 High Anticoagulant Intensity: INR = 2.5-3.5 Performed By: #### P T ####[facility] CenterNeighborMDGfemawnepow[facility] [place], [place] [id number] Lab Director: Sarath Olivera MD PT Coag (PPP) [Time] 15.6 s High 11.7-14.9 [facility] Comment on above: Performed By: #### P T ####[employer] [address] [place], [place] [id number] Lab Director: Sarath Olivera MD Basic Metab w/rfx MGon 01-11 Anion gap [Moles/Vol] 9 mmol/L Normal 9-16 [facility] Comment on above: Performed By: #### B C #### [address] [address] Director Counseling Bureau: Sarath Olivera MD Calcium [Mass/Vol] 8.3 mg/dL Low 8.6-10.4 [facility] Comment on above: Performed By: #### B C #### [address] [address] Director Counseling Bureau: Sarath Olivera MD Chloride [Moles/Vol] 103 mmol/L Normal 98-107 [facility] Comment on above: Performed By: #### B C #### [address] [address] Director Counseling Bureau: Sarath Olivera MD CO2 [Moles/Vol] 25 mmol/L Normal 20-31 [facility] Comment on above: Performed By: #### B C #### [address] [address] Director Counseling Bureau: Sarath Olivera MD Creatinine [Mass/Vol] 0.8 mg/dL Normal 0.50-0.90 [facility] Comment on above: Performed By: #### B C #### [address] [address] Director Counseling Bureau: Sarath Olivera MD GFR/1.73 sq M.predicted among non-blacks MDRD (S/P/Bld) [Vol rate/Area] 78 mL/min/{1.73_m2} Normal >60 [facility] Comment on above: Result Comment: These [...] secretion. Performed By: #### B C #### [address] [address] Director Counseling Bureau: Sarath Olivera MD Glucose [Mass/Vol] 92 mg/dL Normal 74-99 [facility] Comment on above: Performed By: #### B C #### [address] [address] Director Counseling Bureau: Sarath Olivera MD Potassium [Moles/Vol] 4.5 mmol/L Normal 3.7-5.3 [facility] Comment on above: Performed By: #### B C #### [address] [address] Director Counseling Bureau: Sarath Olivera MD Sodium [Moles/Vol] 137 mmol/L Normal 136-145 [facility] Comment on above: Performed By: #### B C #### [address] [address] Director Counseling Bureau: Sarath Olivera MD Urea nitrogen [Mass/Vol] 28 mg/dL High 8-23 [facility] Comment on above: Performed By: #### B C #### [address] [address] Director Counseling Bureau: Sarath Olivera MD CBC with Diffon 01-12-2024 Abs. Basophil 0.03 k/uL Normal 0.00-0.20 [facility] Comment on above: Performed By: #### B C #### [address] [address] Director Counseling Bureau: Sarath Olivera MD Abs.Imm.Granulocyte 0.24 k/uL Normal 0.00-0.30 [facility] Comment on above: Performed By: #### B C #### [address] [address] Director Counseling Bureau: Sarath Olivera MD Abs.Neutrophil (Seg) 6.54 k/uL Normal 1.50-8.10 [facility] Comment on above: Performed By: #### B C #### [address] [address] Director Counseling Bureau: Sarath Olivera MD Basophils/100 WBC (Bld) 0 % Normal 0-2 [facility] Comment on above: Performed By: #### B C #### [address] [address] Director Counseling Bureau: Sarath Olivera MD Eosinophils (Bld) [#/Vol] 0.19 10*3/uL Normal 0.00-0.44 [facility] Comment on above: Performed By: #### B C #### [address] [address] Director Counseling Bureau: Sarath Olivera MD Eosinophils/100 WBC (Bld) 2 % Normal 1-4 [facility] Comment on above: Performed By: #### B C #### [address] [address] Director Counseling Bureau: Sarath Olivera MD Erythrocyte distribution width (RBC) [Ratio] 15.8 % High 11.8-14.4 [facility] Comment on above: Performed By: #### B C #### [address] [address] Director Counseling Bureau: Sarath Olivera MD Hematocrit (Bld) [Volume fraction] 29.8 % Low 36.3-47.1 [facility] Comment on above: Performed By: #### B C #### [address] [address] Director Counseling Bureau: Sarath Olivera MD Hemoglobin (Bld) [Mass/Vol] 9.3 g/dL Low 11.9-15.1 [facility] Comment on above: Performed By: #### B C #### [address] [address] Director Counseling Bureau: Sarath Olivera MD Immature granulocytes/100 WBC (Bld) 3 % High 0 [facility] Comment on above: Performed By: #### B C #### [address] [address] Director Counseling Bureau: Sarath Olivera MD Lymphocytes (Bld) [#/Vol] 1.23 10*3/uL Normal 1.10-3.70 [facility] Comment on above: Performed By: #### B C #### [address] [address] Director Counseling Bureau: Sarath Olivera MD Lymphocytes/100 WBC (Bld) 13 % Low 24-43 [facility] Comment on above: Performed By: #### B C #### [place] [address] Director Counseling Bureau: Sarath Olivera MD MCH (RBC) [Entitic mass] 30.9 pg Normal 25.2-33.5 [facility] Comment on above: Performed By: #### B C #### [address] [address] Director Counseling Bureau: Sarath Olivera MD MCHC (RBC) [Mass/Vol] 31.2 g/dL Normal 28.4-34.8 [facility] Comment on above: Performed By: #### B C #### [place] [address] Director Counseling Bureau: Sarath Olivera MD MCV (RBC) [Entitic vol] 99.0 fL Normal 82.6-102.9 [facility] Comment on above: Performed By: #### B C #### [place] [address] Director Counseling Bureau: Sarath Olivera MD Monocytes (Bld) [#/Vol] 1.19 10*3/uL Normal 0.10-1.20 [facility] Comment on above: Performed By: #### B C #### [address] [address] Director Counseling Bureau: Sarath Olivera MD Monocytes/100 WBC (Bld) 13 % High 3-12 [facility] Comment on above: Performed By: #### B C #### [address] [address] Director Counseling Bureau: Sarath Olivera MD Neutrophil (Seg) 69 % High 36-65 [facility] Comment on above: Performed By: #### B C #### [address] [address] Director Counseling Bureau: Sarath Olivera MD NRBC Automated 0.5 per 100 WBC High 0.0 [facility] Comment on above: Performed By: #### B C #### [address] [address] Director Counseling Bureau: Sarath Olivera MD Platelet mean volume (Bld) [Entitic vol] 12.4 fL Normal 8.1-13.5 [facility] Comment on above: Performed By: #### B C #### [address] [address] Director Counseling Bureau: Sarath Olivera MD Platelets (Bld) [#/Vol] 140 10*3/uL Normal 138-453 [facility] Comment on above: Performed By: #### B C #### [address] [address] Director Counseling Bureau: Sarath Olivera MD RBC (Bld) [#/Vol] 3.01 10*6/uL Low 3.95-5.11 [facility] Comment on above: Performed By: #### B C #### [address] [address] Director Counseling Bureau: Sarath Olivera MD RBC morphology finding Nom (Bld) ANISOCYTOSIS PRESENT Normal [facility] Comment on above: Performed By: #### B C #### [address] [address] Director Counseling Bureau: Sarath Olivera MD WBC (Bld) [#/Vol] 9.4 10*3/uL Normal 3.5-11.3 [facility] Comment on above: Performed By: #### B C #### [address] [address] Director Counseling Bureau: Sarath Olivera MD PTon 01-12-2024 INR Coag (PPP) [Relative time] 1.2 {INR} Normal [facility] Comment on above: Result Comment: Therapeutic Range: Moderate Anticoagulant Intensity: INR = 2.0-3.0 High Anticoagulant Intensity: INR = 2.5-3.5 Performed By: #### B C #### [address] [address] Director Counseling Bureau: Sarath Olivera MD PT Coag (PPP) [Time] 14.6 s Normal 11.7-14.9 [facility] Comment on above: Performed By: #### B C #### [address] [address] Director Counseling Bureau: Sarath Olivera MD XR CHEST PORTABLEon 01-12-20 [...] Deon Webb MD 01/12/24 Final result Normal [facility] Basic Metab w/rfx MGon 01-10 Anion gap [Moles/Vol] 7 mmol/L Low 9-16 [facility] Comment on above: Performed By: #### L ACTIC ALCB #### [address] [address] Director Counseling Bureau: Sarath Olivera MD Calcium [Mass/Vol] 8.0 mg/dL Low 8.6-10.4 [facility] Comment on above: Performed By: #### L ACTIC ALCB #### [facility] [address] [place] [address] Director Counseling Bureau: Sarath Olivera MD Chloride [Moles/Vol] 104 mmol/L Normal 98-107 [facility] Comment on above: Performed By: #### L ACTIC ALCB #### [facility] [address] [place] [address] Director Counseling Bureau: Sarath Olivera MD CO2 [Moles/Vol] 24 mmol/L Normal 20-31 [facility] Comment on above: Performed By: #### L ACTIC ALCB #### [facility] [address] [place] [address] Director Counseling Bureau: Sarath Olivera MD Creatinine [Mass/Vol] 0.8 mg/dL Normal 0.50-0.90 [facility] Comment on above: Performed By: #### L ACTMARILIN ALCB #### [facility] [address] [place] [address] Director Counseling Bureau: Sarath Olivera MD GFR/1.73 sq M.predicted among non-blacks MDRD (S/P/Bld) [Vol rate/Area] 70 mL/min/{1.73_m2} Normal >60 [facility] Comment on above: Result Comment: These [...] Performed By: #### L MARY ALCB #### [facility] [address] [place] [address] Director Counseling Bureau: Sarath Olivera MD Glucose [Mass/Vol] 106 mg/dL High 74-99 [facility] Comment on above: Performed By: #### L MARY ALCB #### [facility] [address] [place] [address] Director Counseling Bureau: Sarath Olivera MD Potassium [Moles/Vol] 4.7 mmol/L Normal 3.7-5.3 [facility] Comment on above: Performed By: #### L MARY ALCB #### [address] [address] Director Counseling Bureau: Sarath Olivera MD Sodium [Moles/Vol] 135 mmol/L Low 136-145 [facility] Comment on above: Performed By: #### L MARY ALCB #### [facility] [address] [place] [address] Director Counseling Bureau: Sarath Olivera MD Urea nitrogen [Mass/Vol] 28 mg/dL High 8-23 [facility] Comment on above: Performed By: #### L MARY ALCB #### [facility] [address] [place] [address] Director Counseling Bureau: Sarath Olivera MD CBC with Diffon 01-10-2023 Abs. Basophil <0.03 Normal 0.00-0.20 [facility] Comment on above: Performed By: #### L MARY ALCB #### [address] [place] [address] Director Counseling Bureau: Sarath Olivera MD Abs.Imm.Granulocyte 0.23 k/uL Normal 0.00-0.30 [facility] Comment on above: Performed By: #### L ACTIC, ALCB #### [facility] [address] [place] [address] Director Counseling Bureau: Sarath Olivera MD Abs.Neutrophil (Seg) 7.27 k/uL Normal 1.50-8.10 [facility] Comment on above: Performed By: #### L ACTIC, ALCB #### [facility] [address] [place] [address] Director Counseling Bureau: Sarath Olivera MD Basophils/100 WBC (Bld) 0 % Normal 0-2 [facility] Comment on above: Performed By: #### L ACTIC, ALCB #### [facility] [address] [place] [address] Director Counseling Bureau: Sarath Olivera MD Eosinophils (Bld) [#/Vol] 0.11 10*3/uL Normal 0.00-0.44 [facility] Comment on above: Performed By: #### L ACTIC, ALCB #### [facility] [address] [place] [address] Director Counseling Bureau: Sarath Olivera MD Eosinophils/100 WBC (Bld) 1 % Normal 1-4 [facility] Comment on above: Performed By: #### L ACTIC, ALCB #### [facility] [address] [place] [address] Director Counseling Bureau: Sarath Olivera MD Erythrocyte distribution width (RBC) [Ratio] 15.6 % High 11.8-14.4 [facility] Comment on above: Performed By: #### L ACTIC, ALCB #### [facility] [address] [place] [address] Director Counseling Bureau: Sarath Olivera MD Hematocrit (Bld) [Volume fraction] 28.4 % Low 36.3-47.1 [facility] Comment on above: Performed By: #### L ACTIC, ALCB #### [facility] [address] [place] [address] Director Counseling Bureau: Sarath Olivera MD Hemoglobin (Bld) [Mass/Vol] 8.9 g/dL Low 11.9-15.1 [facility] Comment on above: Performed By: #### L ACTIC, ALCB #### [address] [address] Director Counseling Bureau: Sarath Olivera MD Immature granulocytes/100 WBC (Bld) 2 % High 0 [facility] Comment on above: Performed By: #### L ACTIC, ALCB #### [facility] [address] [place] [address] Director Counseling Bureau: Sarath Olivera MD Lymphocytes (Bld) [#/Vol] 1.31 10*3/uL Normal 1.10-3.70 [facility] Comment on above: Performed By: #### L ACTIC, ALCB #### [facility] [address] [place] [address] Director Counseling Bureau: Sarath Olivera MD Lymphocytes/100 WBC (Bld) 13 % Low 24-43 [facility] Comment on above: Performed By: #### L ACTIC, ALCB #### [facility] [address] [place] [address] Director Counseling Bureau: Sarath Olivera MD MCH (RBC) [Entitic mass] 30.9 pg Normal 25.2-33.5 [facility] Comment on above: Performed By: #### L ACTIC, ALCB #### [facility] [address] [place] [address] Director Counseling Bureau: Sarath Olivera MD MCHC (RBC) [Mass/Vol] 31.3 g/dL Normal 28.4-34.8 [facility] Comment on above: Performed By: #### L MARY ALCB #### [address] [address] Director Counseling Bureau: Sarath Olivera MD MCV (RBC) [Entitic vol] 98.6 fL Normal 82.6-102.9 [facility] Comment on above: Performed By: #### L MARY ALCB #### [address] [address] Director Counseling Bureau: Sarath Olivera MD Monocytes (Bld) [#/Vol] 1.42 10*3/uL High 0.10-1.20 [facility] Comment on above: Performed By: #### Abel HERNANDEZ ALCB #### [address] [address] Director Counseling Bureau: Sarath Olivera MD Monocytes/100 WBC (Bld) 14 % High 3-12 [facility] Comment on above: Performed By: #### L MARY ALCB #### [address] [address] Director Counseling Bureau: aSrath Olivera MD Neutrophil (Seg) 70 % High 36-65 [facility] Comment on above: Performed By: #### L MARY ALCB #### [address] [address] Director Counseling Bureau: Sarath Olivera MD NRBC Automated 1.3 per 100 WBC High 0.0 [facility] Comment on above: Performed By: #### L MARY ALCB #### [address] [address] Director Counseling Bureau: Sarath Olivera MD Platelet mean volume (Bld) [Entitic vol] 12.1 fL Normal 8.1-13.5 [facility] Comment on above: Performed By: #### L ACTIC, ALCB #### [address] [address] Director Counseling Bureau: Sarath Olivera MD Platelets (Bld) [#/Vol] 109 10*3/uL Low 138-453 [facility] Comment on above: Performed By: #### L ACTIC, ALCB #### [address] [address] Director Counseling Bureau: Sarath Olivera MD RBC (Bld) [#/Vol] 2.88 10*6/uL Low 3.95-5.11 [facility] Comment on above: Performed By: #### L ACTIC, ALCB #### [address] [address] Director Counseling Bureau: Sarath Olivera MD RBC morphology finding Nom (Bld) ANISOCYTOSIS PRESENT Normal [facility] Comment on above: Performed By: #### L ACTMARILIN, ALCB #### [address] [address] Director Counseling Bureau: Sarath Olivera MD WBC (Bld) [#/Vol] 10.4 10*3/uL Normal 3.5-11.3 [facility] Comment on above: Performed By: #### L ACTMARILIN, ALCB #### [address] [address] Director Counseling Bureau: Sarath Olivera MD Basic Metab w/rfx MGon 01-09 Anion gap [Moles/Vol] 7 mmol/L Low 9-16 [facility] Comment on above: Performed By: #### B C #### [address] [address] Director Counseling Bureau: Sarath Olivera MD Calcium [Mass/Vol] 8.4 mg/dL Low 8.6-10.4 [facility] Comment on above: Performed By: #### B C #### [facility] [address] [place] [address] Director Counseling Bureau: Sarath Olivera MD Chloride [Moles/Vol] 109 mmol/L High 98-107 [facility] Comment on above: Performed By: #### B C #### [facility] [address] [place] [address] Director Counseling Bureau: Sarath Olivera MD CO2 [Moles/Vol] 25 mmol/L Normal 20-31 [facility] Comment on above: Performed By: #### B C #### [facility] [address] [place] [address] Director Counseling Bureau: Sarath Olivera MD Creatinine [Mass/Vol] 0.8 mg/dL Normal 0.50-0.90 [facility] Comment on above: Performed By: #### B C #### [address] [address] Director Counseling Bureau: Sarath Olivera MD GFR/1.73 sq M.predicted among non-blacks MDRD (S/P/Bld) [Vol rate/Area] 68 mL/min/{1.73_m2} Normal >60 [facility] Comment on above: Result Comment: These [...] secretion. Performed By: #### B C #### [facility] [address] [place] [address] Director Counseling Bureau: Sarath Olivera MD Glucose [Mass/Vol] 96 mg/dL Normal 74-99 [facility] Comment on above: Performed By: #### B C #### [address] [address] Director Counseling Bureau: Sarath Olivera MD Potassium [Moles/Vol] 4.9 mmol/L Normal 3.7-5.3 [facility] Comment on above: Performed By: #### B C #### [address] [address] Director Counseling Bureau: Sarath Olivera MD Sodium [Moles/Vol] 141 mmol/L Normal 136-145 [facility] Comment on above: Performed By: #### B C #### [address] [address] Director Counseling Bureau: Sarath Olivera MD Urea nitrogen [Mass/Vol] 31 mg/dL High 8-23 [facility] Comment on above: Performed By: #### B C #### [address] [address] Director Counseling Bureau: Sarath Olivera MD CBC with Diffon 01-10-2024 Abs. Basophil <0.03 Normal 0.00-0.20 [facility] Comment on above: Performed By: #### B C #### [address] [address] Director Counseling Bureau: Sarath Olivera MD Abs. Eosinophil <0.03 Normal 0.00-0.44 [facility] Comment on above: Performed By: #### B C #### [address] [address] Director Counseling Bureau: Sarath Olivera MD Abs.Imm.Granulocyte 0.12 k/uL Normal 0.00-0.30 [facility] Comment on above: Performed By: #### B C #### [address] [address] Director Counseling Bureau: Sarath Olivera MD Abs.Neutrophil (Seg) 7.01 k/uL Normal 1.50-8.10 [facility] Comment on above: Performed By: #### B C #### [address] [address] Director Counseling Bureau: Sarath Olivera MD Basophils/100 WBC (Bld) 0 % Normal 0-2 [facility] Comment on above: Performed By: #### B C #### [address] [address] Director Counseling Bureau: Sarath Olivera MD Eosinophils/100 WBC (Bld) 0 % Low 1-4 [facility] Comment on above: Performed By: #### B C #### [address] [address] Director Counseling Bureau: Sarath Olivera MD Erythrocyte distribution width (RBC) [Ratio] 15.7 % High 11.8-14.4 [facility] Comment on above: Performed By: #### B C #### [address] [address] Director Counseling Bureau: Sarath Olivera MD Hematocrit (Bld) [Volume fraction] 28.2 % Low 36.3-47.1 [facility] Comment on above: Performed By: #### B C #### [address] [address] Director Counseling Bureau: Sarath Olivera MD Hemoglobin (Bld) [Mass/Vol] 9.0 g/dL Low 11.9-15.1 [facility] Comment on above: Performed By: #### B C #### [address] [address] Director Counseling Bureau: Sarath Olivera MD Immature granulocytes/100 WBC (Bld) 1 % High 0 [facility] Comment on above: Performed By: #### B C #### [address] [address] Director Counseling Bureau: Sarath Olivera MD Lymphocytes (Bld) [#/Vol] 1.46 10*3/uL Normal 1.10-3.70 [facility] Comment on above: Performed By: #### B C #### [address] [address] Director Counseling Bureau: Sarath Olviera MD Lymphocytes/100 WBC (Bld) 15 % Low 24-43 [facility] Comment on above: Performed By: #### B C #### [address] [address] Director Counseling Bureau: Sarath Olivera MD MCH (RBC) [Entitic mass] 30.8 pg Normal 25.2-33.5 [facility] Comment on above: Performed By: #### B C #### [address] [address] Director Counseling Bureau: Sarath Olivera MD MCHC (RBC) [Mass/Vol] 31.9 g/dL Normal 28.4-34.8 [facility] Comment on above: Performed By: #### B C #### [address] [address] Director Counseling Bureau: Sarath Olivera MD MCV (RBC) [Entitic vol] 96.6 fL Normal 82.6-102.9 [facility] Comment on above: Performed By: #### B C #### [address] [address] Director Counseling Bureau: Sarath Olivera MD Monocytes (Bld) [#/Vol] 1.28 10*3/uL High 0.10-1.20 [facility] Comment on above: Performed By: #### B C #### [address] [address] Director Counseling Bureau: Sarath Olivera MD Monocytes/100 WBC (Bld) 13 % High 3-12 [facility] Comment on above: Performed By: #### B C #### [address] [address] Director Counseling Bureau: Sarath Olivera MD Neutrophil (Seg) 71 % High 36-65 [facility] Comment on above: Performed By: #### B C #### [address] [address] Director Counseling Bureau: Sarath Olivera MD NRBC Automated 1.1 per 100 WBC High 0.0 [facility] Comment on above: Performed By: #### B C #### [address] [address] Director Counseling Bureau: Sarath Olivera MD Platelet mean volume (Bld) [Entitic vol] 12.7 fL Normal 8.1-13.5 [facility] Comment on above: Performed By: #### B C #### [address] [address] Director Counseling Bureau: Sarath Olivera MD Platelets (Bld) [#/Vol] 102 10*3/uL Low 138-453 [facility] Comment on above: Performed By: #### B C #### [address] [address] Director Counseling Bureau: Sarath Olviera MD RBC (Bld) [#/Vol] 2.92 10*6/uL Low 3.95-5.11 [facility] Comment on above: Performed By: #### B C #### [address] [address] Director Counseling Bureau: Sarath Olivera MD RBC morphology finding Nom (Bld) ANISOCYTOSIS PRESENT Normal [facility] Comment on above: Performed By: #### B C #### [address] [address] Director Counseling Bureau: Sarath Olivera MD WBC (Bld) [#/Vol] 9.9 10*3/uL Normal 3.5-11.3 [facility] Comment on above: Performed By: #### B C #### [address] [address] Director Counseling Bureau: Sarath Olivera MD Cult, Bloodon 01-10-2024 Cult, Blood Specimen Description .BLOOD Special Requests RT HAND NO MLS GIVEN Culture NO GROWTH 5 DAYS Report Status FINAL 01/10/2024 Normal [facility] Comment on above: Performed By: #### B C #### [address] [address] Director Counseling Bureau: Sarath Olivera MD Cult,Bloodon 01-10-2024 Cult,Blood Specimen Description .BLOOD Special Requests RT AC 10ML Culture NO GROWTH 5 DAYS Report Status FINAL 01/10/2024 [facility] Comment on above: Performed By: #### B C #### [address] [address] Director Counseling Bureau: Sarath Olivera MD Fentanyl, Urineon 01-10-2024 Fentanyl/Metab Ur 21.9 ng/mL Normal [facility] Comment on above: Result Comment: (NOT E) [...] developed and its performance characteristics determined by [employer]. It has not been cleared or approved by the [place] Food and Drug Administration. This test was performed in a CLIA certified laboratory and is intended for clinical purposes. Performed By: #### D AU, UAMIC #### [address] [address] Director Counseling Bureau: Sarath Olivera MD Norfentanyl, Ur See Note Normal [facility] Comment on above: Result Comment: (NOT E) Unable to identify due to interfering substance(s) in the specimen. Performed By: [employer] [address] [place] [address] Home Administrator: Taco Chang MD, PhD CLIA Number: [id number] Performed By: #### D AU, UAMIC #### [address] [address] Director Counseling Bureau: Sarath Olivera MD Opiates,Ur Confirmon 024 Codeine, Ur <20 Normal [facility] Comment on above: Performed By: #### D AU, UAMIC #### [address] [address] Director Counseling Bureau: Sarath Olivera MD Hydrocodone, Ur <20 Normal [facility] Comment on above: Performed By: #### D AU, UAMIC #### [address] [address] Director Counseling Bureau: Sarath Olivera MD Hydromorphone, Ur <20 Normal [facility] Comment on above: Performed By: #### D AU, UAMIC #### [address] [address] Director Counseling Bureau: Sarath Olivera MD Morphine, Ur 331 ng/mL Normal [facility] Comment on above: Performed By: #### D AU, UAMIC #### [address] [address] Director Counseling Bureau: Sarath Olivera MD Norhydrocodone, U <20 Normal [facility] Comment on above: Result Comment: (NOT E) Performed By: [employer] [address] [place] [address] Home Administrator: Taco Chang MD, PhD CLIA Number: [id number] Performed By: #### D AU, UAMIC #### [facility] [address] [place] [address] Director Counseling Bureau: Sarath Olivera MD Noroxycodone, Ur <20 Normal [facility] Comment on above: Performed By: #### D AU, UAMIC #### [facility] [address] [place] [address] Director Counseling Bureau: Sarath Olivera MD Noroxymorphone,U <20 Normal [facility] Comment on above: Performed By: #### D AU, UAMIC #### [facility] [address] [place] [address] Director Counseling Bureau: Sarath Olivera MD Opiates, 6 AM Ur <10 Normal [facility] Comment on above: Result Comment: [...] developed and its performance characteristics determined by [employer]. It has not been cleared or approved by the [place] Food and Drug Administration. This test was performed in a CLIA certified laboratory and is intended for clinical purposes. Performed By: #### D AU, UAMIC #### [facility] [address] [place] [address] Director Counseling Bureau: Sarath Olivera MD Oxycodone, Ur <20 Normal [facility] Comment on above: Performed By: #### D BOOKER UAMIC #### [address] [address] Director Counseling Bureau: Sarath Olivera MD Oxymorphone, Ur <20 Normal [facility] Comment on above: Performed By: #### D BOOKER UAMIC #### [address] [address] Director Counseling Bureau: Sarath Olivera MD Basic Metab w/rfx MGon 01-08 Anion gap [Moles/Vol] 7 mmol/L Low 9-16 [facility] Comment on above: Performed By: #### B C #### [address] [address] Director Counseling Bureau: Sarath Olivera MD Calcium [Mass/Vol] 8.0 mg/dL Low 8.6-10.4 [facility] Comment on above: Performed By: #### B C #### [address] [address] Director Counseling Bureau: Sarath Olivera MD Chloride [Moles/Vol] 113 mmol/L High 98-107 [facility] Comment on above: Performed By: #### B C #### [address] [address] Director Counseling Bureau: Sarath Olivera MD CO2 [Moles/Vol] 23 mmol/L Normal 20-31 [facility] Comment on above: Performed By: #### B C #### [address] [address] Director Counseling Bureau: Sarath Olivera MD Creatinine [Mass/Vol] 0.9 mg/dL Normal 0.50-0.90 [facility] Comment on above: Performed By: #### B C #### [facility] [address] [place] [address] Director Counseling Bureau: Sarath Olivera MD GFR/1.73 sq M.predicted among non-blacks MDRD (S/P/Bld) [Vol rate/Area] 61 mL/min/{1.73_m2} Normal >60 [facility] Comment on above: Result Comment: These [...] secretion. Performed By: #### B C #### [address] [address] Director Counseling Bureau: Sarath Olivera MD Glucose [Mass/Vol] 112 mg/dL High 74-99 [facility] Comment on above: Performed By: #### B C #### [address] [address] Director Counseling Bureau: Sarath Olivera MD Potassium [Moles/Vol] 5.1 mmol/L Normal 3.7-5.3 [facility] Comment on above: Performed By: #### B C #### [facility] [address] [place] [address] Director Counseling Bureau: Sarath Olivera MD Sodium [Moles/Vol] 143 mmol/L Normal 136-145 [facility] Comment on above: Performed By: #### B C #### [facility] [address] [place] [address] Director Counseling Bureau: Sarath Olivera MD Urea nitrogen [Mass/Vol] 31 mg/dL High 8-23 [facility] Comment on above: Performed By: #### B C #### [address] [address] Director Counseling Bureau: Sarath Olivera MD CBC with Diffon 01-09-2024 Platelet, Fluoresc. 84 k/uL Low 138-453 [facility] Comment on above: Performed By: #### B C #### [place] [address] Director Counseling Bureau: Sarath Olivera MD PLT, Immature Fract. 11.1 % High 1.1-10.3 [facility] Comment on above: Performed By: #### B C #### [place] [address] Director Counseling Bureau: Sarath Olivera MD Abs. Basophil <0.03 Normal 0.00-0.20 [facility] Comment on above: Performed By: #### B C #### [place] [address] Director Counseling Bureau: Sarath Olivera MD Abs. Eosinophil <0.03 Normal 0.00-0.44 [facility] Comment on above: Performed By: #### B C #### [address] [address] Director Counseling Bureau: Sarath Olivera MD Abs.Imm.Granulocyte 0.09 k/uL Normal 0.00-0.30 [facility] Comment on above: Performed By: #### B C #### [place] [address] Director Counseling Bureau: Sarath Olivera MD Abs.Neutrophil (Seg) 9.66 k/uL High 1.50-8.10 [facility] Comment on above: Performed By: #### B C #### [address] [address] Director Counseling Bureau: Sarath Olivera MD Basophils/100 WBC (Bld) 0 % Normal 0-2 [facility] Comment on above: Performed By: #### B C #### [address] [address] Director Counseling Bureau: Sarath Olivera MD Eosinophils/100 WBC (Bld) 0 % Low 1-4 [facility] Comment on above: Performed By: #### B C #### [address] [address] Director Counseling Bureau: Sarath Olivera MD Immature granulocytes/100 WBC (Bld) 1 % High 0 [facility] Comment on above: Performed By: #### B C #### [address] [address] Director Counseling Bureau: Sarath Olivera MD Lymphocytes (Bld) [#/Vol] 0.83 10*3/uL Low 1.10-3.70 [facility] Comment on above: Performed By: #### B C #### [address] [address] Director Counseling Bureau: Sarath Olivera MD Lymphocytes/100 WBC (Bld) 7 % Low 24-43 [facility] Comment on above: Performed By: #### B C #### [address] [address] Director Counseling Bureau: Sarath Olivera MD Monocytes (Bld) [#/Vol] 1.03 10*3/uL Normal 0.10-1.20 [facility] Comment on above: Performed By: #### B C #### [address] [address] Director Counseling Bureau: Sarath Olivera MD Monocytes/100 WBC (Bld) 9 % Normal 3-12 [facility] Comment on above: Performed By: #### B C #### [address] [address] Director Counseling Bureau: Sarath Olivera MD Neutrophil (Seg) 83 % High 36-65 [facility] Comment on above: Performed By: #### B C #### [address] [address] Director Counseling Bureau: Sarath Olivera MD Erythrocyte distribution width (RBC) [Ratio] 16.0 % High 11.8-14.4 [facility] Comment on above: Performed By: #### B C #### [place] [address] Director Counseling Bureau: Sarath Olivera MD Hematocrit (Bld) [Volume fraction] 28.1 % Low 36.3-47.1 [facility] Comment on above: Performed By: #### B C #### [place] [address] Director Counseling Bureau: Sarath Olivera MD Hemoglobin (Bld) [Mass/Vol] 8.5 g/dL Low 11.9-15.1 [facility] Comment on above: Performed By: #### B C #### [place] [address] Director Counseling Bureau: Sarath Olivera MD MCH (RBC) [Entitic mass] 30.0 pg Normal 25.2-33.5 [facility] Comment on above: Performed By: #### B C #### [place] [address] Director Counseling Bureau: Sarath Olivera MD MCHC (RBC) [Mass/Vol] 30.2 g/dL Normal 28.4-34.8 [facility] Comment on above: Performed By: #### B C #### [address] [address] Director Counseling Bureau: Sarath Olivera MD MCV (RBC) [Entitic vol] 99.3 fL Normal 82.6-102.9 [facility] Comment on above: Performed By: #### B C #### [address] [address] Director Counseling Bureau: Sarath Olivera MD NRBC Automated 0.9 per 100 WBC High 0.0 [facility] Comment on above: Performed By: #### B C #### [address] [address] Director Counseling Bureau: Sarath Olivera MD Platelet Count See Reflexed IPF Result Normal 138-453 [facility] Comment on above: Performed By: #### B C #### [address] [address] Director Counseling Bureau: Sarath Olivera MD RBC (Bld) [#/Vol] 2.83 10*6/uL Low 3.95-5.11 [facility] Comment on above: Performed By: #### B C #### [address] [address] Director Counseling Bureau: Sarath Olivera MD RBC morphology finding Nom (Bld) ANISOCYTOSIS PRESENT Normal [facility] Comment on above: Performed By: #### B C #### [address] [address] Director Counseling Bureau: Sarath Olivera MD WBC (Bld) [#/Vol] 11.6 10*3/uL High 3.5-11.3 [facility] Comment on above: Performed By: #### B C #### [address] [address] Director Counseling Bureau: Sarath Olivera MD Basic Metab w/rfx MGon 01-07 Anion gap [Moles/Vol] 8 mmol/L Low 9-16 [facility] Comment on above: Performed By: #### B C #### [address] [address] Director Counseling Bureau: Sarath Olivera MD Calcium [Mass/Vol] 7.6 mg/dL Low 8.6-10.4 [facility] Comment on above: Performed By: #### B C #### [facility] [address] [place] [address] Director Counseling Bureau: Sarath Olivera MD Chloride [Moles/Vol] 114 mmol/L High 98-107 [facility] Comment on above: Performed By: #### B C #### [facility] [address] [place] [address] Director Counseling Bureau: Sarath Olivera MD CO2 [Moles/Vol] 20 mmol/L Normal 20-31 [facility] Comment on above: Performed By: #### B C #### [address] [address] Director Counseling Bureau: Sarath Olivera MD Creatinine [Mass/Vol] 1.1 mg/dL High 0.50-0.90 [facility] Comment on above: Performed By: #### B C #### [address] [address] Director Counseling Bureau: Sarath Olivera MD GFR/1.73 sq M.predicted among non-blacks MDRD (S/P/Bld) [Vol rate/Area] 48 mL/min/{1.73_m2} Low >60 [facility] Comment on above: Result Comment: These [...] secretion. Performed By: #### B C #### [address] [address] Director Counseling Bureau: Sarath Olivera MD Glucose [Mass/Vol] 158 mg/dL High 74-99 [facility] Comment on above: Performed By: #### B C #### [address] [address] Director Counseling Bureau: Sarath Olivera MD Potassium [Moles/Vol] 5.1 mmol/L Normal 3.7-5.3 [facility] Comment on above: Performed By: #### B C #### [address] [address] Director Counseling Bureau: Sarath Olivera MD Sodium [Moles/Vol] 142 mmol/L Normal 136-145 [facility] Comment on above: Performed By: #### B C #### [address] [address] Director Counseling Bureau: Sarath Olivera MD Urea nitrogen [Mass/Vol] 31 mg/dL High 8-23 [facility] Comment on above: Performed By: #### B C #### [address] [address] Director Counseling Bureau: Sarath Olivera MD CBC with Diffon 01-08-2024 Abs. Basophil 0.00 k/uL Normal 0.0-0.2 [facility] Comment on above: Performed By: #### B C #### [address] [address] Director Counseling Bureau: Sarath Olivera MD Abs.Imm.Granulocyte 0.13 k/uL Normal 0.00-0.30 [facility] Comment on above: Performed By: #### B C #### [address] [address] Director Counseling Bureau: Sarath Olivera MD Abs.Neutrophil (Seg) 10.66 k/uL High 1.8-7.7 [facility] Comment on above: Performed By: #### B C #### [address] [id number] Director Counseling Bureau: Sarath Olivera MD Basophils/100 WBC (Bld) 0 % Normal 0-2 [facility] Comment on above: Performed By: #### B C #### [address] [address] Director Counseling Bureau: Sarath Olivera MD Eosinophils (Bld) [#/Vol] 0.00 10*3/uL Normal 0.0-0.4 [facility] Comment on above: Performed By: #### B C #### [address] [address] Director Counseling Bureau: Sarath Olivera MD Eosinophils/100 WBC (Bld) 0 % Low 1-4 [facility] Comment on above: Performed By: #### B C #### [address] [address] Director Counseling Bureau: Sarath Olivera MD Immature granulocytes/100 WBC (Bld) 1 % High 0 [facility] Comment on above: Performed By: #### B C #### [address] [address] Director Counseling Bureau: Sarath Olivera MD Lymphocytes (Bld) [#/Vol] 0.51 10*3/uL Low 1.0-4.8 [facility] Comment on above: Performed By: #### B C #### [address] [address] Director Counseling Bureau: Sarath Olivera MD Lymphocytes/100 WBC (Bld) 4 % Low 24-44 [facility] Comment on above: Performed By: #### B C #### [address] [address] Director Counseling Bureau: Sarath Olivera MD Monocytes (Bld) [#/Vol] 1.40 10*3/uL High 0.1-0.8 [facility] Comment on above: Performed By: #### B C #### [address] [address] Director Counseling Bureau: Sarath Olivera MD Monocytes/100 WBC (Bld) 11 % High 1-7 [facility] Comment on above: Performed By: #### B C #### [address] [address] Director Counseling Bureau: Sarath Olivera MD Morphology Manoj (Bld) [Interp] ANISOCYTOSIS PRESENT Normal [facility] Comment on above: Performed By: #### B C #### [address] [address] Director Counseling Bureau: Sarath Olivera MD Neutrophil (Seg) 84 % High 36-66 [facility] Comment on above: Performed By: #### B C #### [address] [address] Director Counseling Bureau: Sarath Olivera MD Erythrocyte distribution width (RBC) [Ratio] 15.8 % High 11.8-14.4 [facility] Comment on above: Performed By: #### B C #### [address] [address] Director Counseling Bureau: Sarath Olivera MD Hematocrit (Bld) [Volume fraction] 26.2 % Low 36.3-47.1 [facility] Comment on above: Performed By: #### B C #### [address] [address] Director Counseling Bureau: Sarath Olivera MD Hemoglobin (Bld) [Mass/Vol] 8.4 g/dL Low 11.9-15.1 [facility] Comment on above: Performed By: #### B C #### [address] [address] Director Counseling Bureau: Sarath Olivera MD MCH (RBC) [Entitic mass] 29.8 pg Normal 25.2-33.5 [facility] Comment on above: Performed By: #### B C #### [address] [address] Director Counseling Bureau: Sarath Olivera MD MCHC (RBC) [Mass/Vol] 32.1 g/dL Normal 28.4-34.8 [facility] Comment on above: Performed By: #### B C #### [address] [address] Director Counseling Bureau: Sarath Olivera MD MCV (RBC) [Entitic vol] 92.9 fL Normal 82.6-102.9 [facility] Comment on above: Performed By: #### B C #### [address] [address] Director Counseling Bureau: Sarath Olivera MD NRBC Automated 0.3 per 100 WBC High 0.0 [facility] Comment on above: Performed By: #### B C #### [address] [address] Director Counseling Bureau: Sarath Olivera MD Platelet Count See Reflexed IPF Result Normal [address] [place] [address] Comment on above: Performed By: #### B C #### [address] [address] Director Counseling Bureau: Sarath Olivera MD Platelet, Fluoresc. 65 k/uL Low 138-582 [facility] Comment on above: Performed By: #### B C #### [address] [address] Director Counseling Bureau: Sarath Olivera MD PLT, Immature Fract. 11.2 % High 1.1-10.3 [facility] Comment on above: Performed By: #### B C #### [address] [address] Director Counseling Bureau: Sarath Olivera MD RBC (Bld) [#/Vol] 2.82 10*6/uL Low 3.95-5.11 [facility] Comment on above: Performed By: #### B C #### [facility] [address] [place] [address] Director Counseling Bureau: Sarath Olivera MD WBC (Bld) [#/Vol] 12.7 10*3/uL High 3.5-11.3 [facility] Comment on above: Performed By: #### B C #### [address] [address] Director Counseling Bureau: Sarath Olivera MD Calcium, Ionicon 01-08-2024 Calcium [Moles/Vol] 1.12 mmol/L Low 1.13-1.33 [facility] Comment on above: Performed By: #### B C #### [address] [address] Director Counseling Bureau: Sarath Olivera MD Magnesiumon 01-08-2024 Magnesium [Mass/Vol] 2.0 mg/dL Normal 1.6-2.4 [facility] Comment on above: Performed By: #### B C #### [address] [address] Director Counseling Bureau: Sarath Olivera MD Phosphorus, Inorg.on 024 Phosphorus, Inorg. 1.9 mg/dL Low 2.5-4.5 [facility] Comment on above: Performed By: #### B C #### [address] [address] Director Counseling Bureau: Sarath Olivera MD XR CHEST PORTABLEon 01-08-20 [...] Berhane Pressley MD 01/08/24 Final result Normal [facility] Arterial Bld Gas,POCon 01-06 FIO2 60.0 Normal [facility] HCO3 (Bld) [Moles/Vol] 20.2 mmol/L Low 21.0-28.0 [facility] Negative Base Excess (calc) 4.5 mmol/L High 0.0-2.0 [facility] Oxygen saturation in Blood 99.4 % High 94.0-98.0 [facility] pCO2, Arterial 34.6 mm Hg Low 35.0-48.0 [facility] pH, Arterial 7.374 Normal 7.350-7.450 [facility] pO2, Arterial 155.4 mm Hg High 83.0-108.0 [facility] Site Drawn Arterial Line Normal [facility] FIO2 70.0 Normal [facility] HCO3 (Bld) [Moles/Vol] 21.2 mmol/L Normal 21.0-28.0 [facility] Negative Base Excess (calc) 4.4 mmol/L High 0.0-2.0 [facility] Oxygen saturation in Blood 97.4 % Normal 94.0-98.0 [facility] pCO2, Arterial 39.8 mm Hg Normal 35.0-48.0 [facility] pH, Arterial 7.333 Low 7.350-7.450 [facility] pO2, Arterial 100.9 mm Hg Normal 83.0-108.0 [facility] FIO2 80.0 Normal [facility] HCO3 (Bld) [Moles/Vol] 21.0 mmol/L Normal 21.0-28.0 [facility] Negative Base Excess (calc) 4.1 mmol/L High 0.0-2.0 [facility] Oxygen saturation in Blood 97.2 % Normal 94.0-98.0 [facility] pCO2, Arterial 37.9 mm Hg Normal 35.0-48.0 [facility] pH, Arterial 7.353 Normal 7.350-7.450 [facility] pO2, Arterial 96.9 mm Hg Normal 83.0-108.0 [facility] Site Drawn Arterial Line Normal [facility] Basic Metab w/rfx MGon 01-06 Anion gap [Moles/Vol] 8 mmol/L Low 9-16 [facility] Comment on above: Performed By: #### B C #### [facility] [address] [place] [address] Director Counseling Bureau: Sarath Olivera MD Calcium [Mass/Vol] 7.7 mg/dL Low 8.6-10.4 [facility] Comment on above: Performed By: #### B C #### [facility] [address] [place] [address] Director Counseling Bureau: Sarath Olivera MD Chloride [Moles/Vol] 115 mmol/L High 98-107 [facility] Comment on above: Performed By: #### B C #### [facility] [address] [place] [address] Director Counseling Bureau: Sarath Olivera MD CO2 [Moles/Vol] 20 mmol/L Normal 20-31 [facility] Comment on above: Performed By: #### B C #### [facility] [address] [place] [phone] Director Counseling Bureau: Sarath Olivera MD Creatinine [Mass/Vol] 1.3 mg/dL High 0.50-0.90 [facility] Comment on above: Performed By: #### B C #### [address] [address] Director Counseling Bureau: Sarath Olivera MD GFR/1.73 sq M.predicted among non-blacks MDRD (S/P/Bld) [Vol rate/Area] 41 mL/min/{1.73_m2} Low >60 [facility] Comment on above: Result Comment: These [...] secretion. Performed By: #### B C #### [address] [address] Director Counseling Bureau: Sarath Olivera MD Glucose [Mass/Vol] 150 mg/dL High 74-99 [facility] Comment on above: Performed By: #### B C #### [facility] [address] [place] [address] Director Counseling Bureau: Sarath Olivera MD Potassium [Moles/Vol] 4.2 mmol/L Normal 3.7-5.3 [facility] Comment on above: Performed By: #### B C #### [facility] [address] [place] [address] Director Counseling Bureau: Sarath Olivera MD Sodium [Moles/Vol] 143 mmol/L Normal 136-145 [facility] Comment on above: Performed By: #### B C #### [address] [address] Director Counseling Bureau: Sarath Olivera MD Urea nitrogen [Mass/Vol] 36 mg/dL High 8-23 [facility] Comment on above: Performed By: #### B C #### [address] [address] Director Counseling Bureau: Sarath Olivera MD CBC with Diffon 01-07-2024 Abs. Basophil 0.00 k/uL Normal 0.0-0.2 [facility] Comment on above: Performed By: #### B C #### [address] [address] Director Counseling Bureau: Sarath Olivera MD Abs.Imm.Granulocyte 0.00 k/uL Normal 0.00-0.30 [facility] Comment on above: Performed By: #### B C #### [address] [address] Director Counseling Bureau: Sarath Olivera MD Abs.Neutrophil (Seg) 8.81 k/uL High 1.8-7.7 [facility] Comment on above: Performed By: #### B C #### [address] [address] Director Counseling Bureau: Sarath Olivera MD Basophils/100 WBC (Bld) 0 % Normal 0-2 [facility] Comment on above: Performed By: #### B C #### [address] [address] Director Counseling Bureau: Sarath Olivera MD Eosinophils (Bld) [#/Vol] 0.00 10*3/uL Normal 0.0-0.4 [facility] Comment on above: Performed By: #### B C #### [address] [address] Director Counseling Bureau: Sarath Olivera MD Eosinophils/100 WBC (Bld) 0 % Low 1-4 [facility] Comment on above: Performed By: #### B C #### [address] [address] Director Counseling Bureau: Sarath Olivera MD Immature granulocytes/100 WBC (Bld) 0 % Normal 0 [facility] Comment on above: Performed By: #### B C #### [address] [address] Director Counseling Bureau: Sarath Olivera MD Lymphocytes (Bld) [#/Vol] 0.69 10*3/uL Low 1.0-4.8 [facility] Comment on above: Performed By: #### B C #### [address] [address] Director Counseling Bureau: Sarath Olivera MD Lymphocytes/100 WBC (Bld) 7 % Low 24-44 [facility] Comment on above: Performed By: #### B C #### [address] [address] Director Counseling Bureau: Sarath Olivera MD Monocytes (Bld) [#/Vol] 0.40 10*3/uL Normal 0.1-0.8 [facility] Comment on above: Performed By: #### B C #### [address] [address] Director Counseling Bureau: Sarath Olivera MD Monocytes/100 WBC (Bld) 4 % Normal 1-7 [facility] Comment on above: Performed By: #### B C #### [address] [address] Director Counseling Bureau: Sarath Olivera MD Morphology Manoj (Bld) [Interp] ANISOCYTOSIS PRESENT Normal [facility] Comment on above: Result Comment: INCR EASED BANDS PRESENT Performed By: #### B C #### [address] [address] Director Counseling Bureau: Sarath Olivera MD Neutrophil (Seg) 89 % High 36-66 [facility] Comment on above: Performed By: #### B C #### [address] [address] Director Counseling Bureau: Sarath Olivera MD Erythrocyte distribution width (RBC) [Ratio] 14.8 % High 11.8-14.4 [facility] Comment on above: Performed By: #### B C #### [address] [address] Director Counseling Bureau: Sarath Olivera MD Hematocrit (Bld) [Volume fraction] 25.3 % Low 36.3-47.1 [facility] Comment on above: Performed By: #### B C #### [address] [address] Director Counseling Bureau: Sarath Olivera MD Hemoglobin (Bld) [Mass/Vol] 8.3 g/dL Low 11.9-15.1 [facility] Comment on above: Performed By: #### B C #### [address] [address] Director Counseling Bureau: Sarath Olivera MD MCH (RBC) [Entitic mass] 30.3 pg Normal 25.2-33.5 [facility] Comment on above: Performed By: #### B C #### [address] [address] Director Counseling Bureau: Sarath Olivera MD MCHC (RBC) [Mass/Vol] 32.8 g/dL Normal 28.4-34.8 [facility] Comment on above: Performed By: #### B C #### [address] [address] Director Counseling Bureau: Sarath Olivera MD MCV (RBC) [Entitic vol] 92.3 fL Normal 82.6-102.9 [facility] Comment on above: Performed By: #### B C #### [address] [address] Director Counseling Bureau: Sarath Olivera MD NRBC Automated 0.0 per 100 WBC Normal 0.0 [facility] Comment on above: Performed By: #### B C #### [address] [address] Director Counseling Bureau: Sarath Olivera MD Platelet Count See Reflexed IPF Result Normal 138-453 [facility] Comment on above: Performed By: #### B C #### [address] [address] Director Counseling Bureau: Sarath Olivera MD Platelet, Fluoresc. 70 k/uL Low 138-453 [facility] Comment on above: Performed By: #### B C #### [address] [address] Director Counseling Bureau: Sarath Olivera MD PLT, Immature Fract. 10.5 % High 1.1-10.3 [facility] Comment on above: Performed By: #### B C #### [address] [address] Director Counseling Bureau: Sarath Olivera MD RBC (Bld) [#/Vol] 2.74 10*6/uL Low 3.95-5.11 [facility] Comment on above: Performed By: #### B C #### [address] [address] Director Counseling Bureau: Sarath Olivera MD WBC (Bld) [#/Vol] 9.9 10*3/uL Normal 3.5-11.3 [facility] Comment on above: Performed By: #### B C #### [address] [address] Director Counseling Bureau: Sarath Olivera MD Calcium, Ionicon 01-07-2024 Calcium [Moles/Vol] 1.13 mmol/L Normal 1.13-1.33 [facility] Comment on above: Performed By: #### I OCAL ####[address] [address] Lab Director: Sarath Olivera MD Cult,Urineon 01-07-2024 Cult,Urine Specimen Description .CLEAN CATCH URINE Special Requests Site: Urine Culture NO GROWTH Report Status FINAL 01/07/2024 Normal [facility] Comment on above: Performed By: #### B C #### [address] [address] Director Counseling Bureau: Sarath Olivera MD Gl Hemostasis TEG w/Lysison 01-07-2024 Fibrinogen, Func TEG 17.9 mm Normal 15.0-32.0 [facility] Comment on above: Performed By: #### B C #### [address] [address] Director Counseling Bureau: Sarath Olivera MD LY30 (Lysis) TEG 1.0 % Normal 0.0-2.6 [facility] Comment on above: Performed By: #### B C #### [address] [address] Director Counseling Bureau: Sarath Olivera MD MA Rapid TEG 54.9 mm Normal 52.0-70 [facility] Comment on above: Performed By: #### B C #### [address] [address] Director Counseling Bureau: Sarath Olivera MD R(Reaction Time) TEG 5.7 min Normal 4.6-9.1 [facility] Comment on above: Performed By: #### B C #### [address] [address] Director Counseling Bureau: Sarath Olivera MD Glucose (POC)on 01-07-2024 Glucose [Mass/Vol] 161 mg/dL High 74-100 [facility] Glucose [Mass/Vol] 143 mg/dL High 74-100 [facility] Glucose [Mass/Vol] 157 mg/dL High 74-100 [facility] Glucose,Whole Bloodon 2023 Glucose [Mass/Vol] 142 mg/dL High 65-105 [facility] Glucose [Mass/Vol] 145 mg/dL High 65-105 [facility] Lactic Acid (POC)on 01-07-20 24 Lactate [Moles/Vol] 1.0 mmol/L Normal 0.56-1.39 [facility] Lactate [Moles/Vol] 1.0 mmol/L Normal 0.56-1.39 [facility] Lactate [Moles/Vol] 1.1 mmol/L Normal 0.56-1.39 [facility] Magnesiumon 01-07-2024 Magnesium [Mass/Vol] 1.9 mg/dL Normal 1.6-2.4 [facility] Comment on above: Performed By: #### B C #### [employer] [address] [place] [address] Director Counseling Bureau: Sarath Olivera MD Phosphorus, Inorg.on 024 Phosphorus, Inorg. 3.1 mg/dL Normal 2.5-4.5 [facility] Comment on above: Performed By: #### B C #### [employer] [address] [place] [address] [phone] Director Counseling Bureau: Sarath Olivera MD XR CHEST PORTABLEon 01-07-20 [...] Mayelin Reynolds MD 01/07/24 Final result Normal [facility] XR CHEST PORTABLE EXAMINATION: ONE XRAY [...] Deon Webb MD 01/07/24 Final result Normal [facility] Albuminon 01-06-2024 Albumin [Mass/Vol] 2.8 g/dL Low 3.5-5.2 [facility] Comment on above: Performed By: #### A LB, FT4, TSHX, GLYHGB, HH, VD25 ####[facility] [address] [place] [address] [facility] Director: Sarath Olivera MD Arterial Bld Gas,POCon 01-05 FIO2 100.0 Normal [facility] HCO3 (Bld) [Moles/Vol] 20.7 mmol/L Low 21.0-28.0 [facility] Negative Base Excess (calc) 3.5 mmol/L High 0.0-2.0 [facility] Oxygen saturation in Blood 99.5 % High 94.0-98.0 [facility] pCO2, Arterial 32.9 mm Hg Low 35.0-48.0 [facility] pH, Arterial 7.406 Normal 7.350-7.450 [facility] pO2, Arterial 164.9 mm Hg High 83.0-108.0 [facility] Site Drawn Arterial Line Normal [facility] FIO2 100.0 Normal [facility] HCO3 (Bld) [Moles/Vol] 19.1 mmol/L Low 21.0-28.0 [facility] Negative Base Excess (calc) 4.6 mmol/L High 0.0-2.0 [facility] Oxygen saturation in Blood 99.3 % High 94.0-98.0 [facility] pCO2, Arterial 29.3 mm Hg Low 35.0-48.0 [facility] pH, Arterial 7.421 Normal 7.350-7.450 [facility] pO2, Arterial 142.4 mm Hg High 83.0-108.0 [facility] Site Drawn Arterial Line Normal [facility] FIO2 3.0 Normal [facility] HCO3 (Bld) [Moles/Vol] 18.8 mmol/L Low 21.0-28.0 [facility] Negative Base Excess (calc) 5.5 mmol/L High 0.0-2.0 [facility] O2 Device Cannula Normal [facility] Oxygen saturation in Blood 90.0 % Low 94.0-98.0 [facility] pCO2, Arterial 30.6 mm Hg Low 35.0-48.0 [facility] pH, Arterial 7.395 Normal 7.350-7.450 [facility] pO2, Arterial 57.8 mm Hg Low 83.0-108.0 [facility] Site Drawn Right Radial Artery Normal [facility] FIO2 5.0 Normal [facility] HCO3 (Bld) [Moles/Vol] 12.6 mmol/L Low 21.0-28.0 [facility] Negative Base Excess (calc) 14.2 mmol/L High 0.0-2.0 [facility] Oxygen saturation in Blood 94.6 % Normal 94.0-98.0 [facility] pCO2, Arterial 32.3 mm Hg Low 35.0-48.0 [facility] pH, Arterial 7.199 Critically low 7.350-7.450 [facility] pO2, Arterial 88.8 mm Hg Normal 83.0-108.0 [facility] Site Drawn Right Radial Artery Normal [facility] Basic Metab w/rfx MGon 01-05 Anion gap [Moles/Vol] 18 mmol/L High 9-16 [facility] Comment on above: Performed By: #### Ashley CELESTE UAMIC #### [facility] [place] [address] [place] [address] Director Counseling Bureau: Sarath Olivera MD Calcium [Mass/Vol] 7.7 mg/dL Low 8.6-10.4 [facility] Comment on above: Performed By: #### Ashley CELESTE UAMIC #### [facility] [place] [address] [place] [address] Director Counseling Bureau: Sarath Olivera MD Chloride [Moles/Vol] 110 mmol/L High 98-107 [facility] Comment on above: Performed By: #### Ashley CELESTE UAMIC #### [facility] [address] [place] [address] Director Counseling Bureau: Sarath Olivera MD CO2 [Moles/Vol] 15 mmol/L Low 20-31 [facility] Comment on above: Performed By: #### Ashley CELESTE UAMIC #### [employer] [address] [place] [address] Director Counseling Bureau: Sarath Olivera MD Creatinine [Mass/Vol] 1.9 mg/dL High 0.50-0.90 [facility] Comment on above: Performed By: #### Ashley CELESTE UAMIC #### [facility] [address] [place] [address] Director Counseling Bureau: Sarath Olivera MD GFR/1.73 sq M.predicted among non-blacks MDRD (S/P/Bld) [Vol rate/Area] 26 mL/min/{1.73_m2} Low >60 [facility] Comment on above: Result Comment: These [...] Performed By: #### Ashley CELESTE, UAMIC #### [facility] [address] [place] [address] Director Counseling Bureau: Sarath Olivera MD Glucose [Mass/Vol] 173 mg/dL High 74-99 [facility] Comment on above: Performed By: #### Ashley CELESTE, UAMIC #### [facility] [place] [address] [place] [address] Director Counseling Bureau: Sarath Olivera MD Potassium [Moles/Vol] 4.6 mmol/L Normal 3.7-5.3 [facility] Comment on above: Performed By: #### Ashley AU, UAMIC #### [facility] [address] [place] [address] Director Counseling Bureau: Sarath Olivera MD Sodium [Moles/Vol] 143 mmol/L Normal 136-145 [facility] Comment on above: Performed By: #### Ashley AU, UAMIC #### [facility] [address] [place] [address] Director Counseling Bureau: Sarath Olivera MD Urea nitrogen [Mass/Vol] 32 mg/dL High 8-23 [facility] Comment on above: Performed By: #### Ashley AU, UAMIC #### [facility] [address] [place] [address] Director Counseling Bureau: Sarath Olivera MD Anion gap [Moles/Vol] 21 mmol/L High 9-16 [facility] Comment on above: Performed By: #### B C #### [address] [address] Director Counseling Bureau: Sarath Olivera MD Calcium [Mass/Vol] 7.6 mg/dL Low 8.6-10.4 [facility] Comment on above: Performed By: #### B C #### [address] [address] Director Counseling Bureau: Sarath Olivera MD Chloride [Moles/Vol] 113 mmol/L High 98-107 [facility] Comment on above: Performed By: #### B C #### [address] [address] Director Counseling Bureau: Sarath Olivera MD CO2 [Moles/Vol] 9 mmol/L Critically low 20-31 [facility] Comment on above: Performed By: #### B C #### [address] [address] Director Counseling Bureau: Sarath Olivera MD Creatinine [Mass/Vol] 1.7 mg/dL High 0.50-0.90 [facility] Comment on above: Performed By: #### B C #### [address] [address] Director Counseling Bureau: Sarath Olivera MD GFR/1.73 sq M.predicted among non-blacks MDRD (S/P/Bld) [Vol rate/Area] 20 mL/min/{1.73_m2} Low >60 [facility] Comment on above: Result Comment: These [...] secretion. Performed By: #### B C #### [facility] [place] [address] [place] [address] Director Counseling Bureau: Sarath Olivera MD Glucose [Mass/Vol] 184 mg/dL High 74-99 [facility] Comment on above: Performed By: #### B C #### [address] [address] Director Counseling Bureau: Sarath Olivera MD Potassium [Moles/Vol] 4.7 mmol/L Normal 3.7-5.3 [facility] Comment on above: Performed By: #### B C #### [address] [address] Director Counseling Bureau: Sarath Olivera MD Sodium [Moles/Vol] 143 mmol/L Normal 136-145 [facility] Comment on above: Performed By: #### B C #### [address] [address] Director Counseling Bureau: Sarath Olivera MD Urea nitrogen [Mass/Vol] 30 mg/dL High 8-23 [facility] Comment on above: Performed By: #### B C #### [address] [address] Director Counseling Bureau: Sarath Olivera MD Basic Metabolic Profon 01-05 Anion gap [Moles/Vol] 9 mmol/L Normal 9-16 [facility] Comment on above: Performed By: #### B MP, IOCAL, CDP, PT, MG, SRAVANTHI ####[facility] [address] [place] [address])[phone] Director: Sarath Olivera MD Calcium [Mass/Vol] 8.0 mg/dL Low 8.6-10.4 [facility] Comment on above: Performed By: #### B MP, IOCAL, CDP, PT, MG, SRAVANTHI ####[facility] [address] [place] [address] Lab Director: Sarath Olivera MD Chloride [Moles/Vol] 114 mmol/L High 98-107 [facility] Comment on above: Performed By: #### B MP, IOCAL, CDP, PT, MG, SRAVANTHI ####[facility] [address] [place] [address] Lab Director: Sarath Olivera MD CO2 [Moles/Vol] 19 mmol/L Low 20-31 [facility] Comment on above: Performed By: #### B MP, IOCAL, CDP, PT, MG, SRAVANTHI ####[address] [address] Lab Director: Sarath Olivera MD Creatinine [Mass/Vol] 1.4 mg/dL High 0.50-0.90 [facility] Comment on above: Performed By: #### B MP, IOCAL, CDP, PT, MG, SRAVANTHI ####[address] [address] Lab Director: Sarath Olivera MD GFR/1.73 sq M.predicted among non-blacks MDRD (S/P/Bld) [Vol rate/Area] 38 mL/min/{1.73_m2} Low >60 [facility] Comment on above: Result Comment: These [...] B MP, IOCAL, CDP, PT, MG, SRAVANTHI ####[facility] [address] [place] [address] Lab Director: Sarath Olivera MD Glucose [Mass/Vol] 147 mg/dL High 74-99 [facility] Comment on above: Performed By: #### B MP, IOCAL, CDP, PT, MG, SRAVANTHI ####[facility] [address] [place], [place] [address])[phone] Director: Sarath Olivera MD Potassium [Moles/Vol] 4.4 mmol/L Normal 3.7-5.3 [facility] Comment on above: Performed By: #### B MP, IOCAL, CDP, PT, MG, SRAVANTHI ####[facility] [address] [place], [place] [address])[phone] Director: Sarath Olivera MD Sodium [Moles/Vol] 142 mmol/L Normal 136-145 [facility] Comment on above: Performed By: #### B MP, IOCAL, CDP, PT, MG, SRAVANTHI ####[facility] [address] [place], [place] [address])[phone] Director: Sarath Olivera MD Urea nitrogen [Mass/Vol] 36 mg/dL High 8-23 [facility] Comment on above: Performed By: #### B MP, IOCAL, CDP, PT, MG, SRAVANTHI ####[facility] [address] [place], [place] [address])[phone] Director: Sarath Olivera MD CBC with Diffon 01-06-2024 Abs. Basophil 0.00 k/uL Normal 0.0-0.2 [facility] Comment on above: Performed By: #### B MP, IOCAL, CDP, PT, MG, SRAVANTHI ####[facility] [address] [place], [place] [address])[phone] Director: Sarath Olivera MD Abs.Imm.Granulocyte 0.00 k/uL Normal 0.00-0.30 [facility] Comment on above: Performed By: #### B MP, IOCAL, CDP, PT, MG, SRAVANTHI ####[facility] [address] [place], [place] [address])[phone] Director: Sarath Olivera MD Abs.Neutrophil (Seg) 9.26 k/uL High 1.8-7.7 [facility] Comment on above: Performed By: #### B MP, IOCAL, CDP, PT, MG, SRAVANTHI ####[address] [address])[phone] Director: Sarath Olivera MD Basophils/100 WBC (Bld) 0 % Normal 0-2 [facility] Comment on above: Performed By: #### B MP, IOCAL, CDP, PT, MG, SRAVANTHI ####[facility] [address] [place] [address] Lab Director: Sarath Olivera MD Eosinophils (Bld) [#/Vol] 0.00 10*3/uL Normal 0.0-0.4 [facility] Comment on above: Performed By: #### B MP, IOCAL, CDP, PT, MG, SRAVANTHI ####[address] [address])[phone] Director: Sarath Olivera MD Eosinophils/100 WBC (Bld) 0 % Low 1-4 [facility] Comment on above: Performed By: #### B MP, IOCAL, CDP, PT, MG, SRAVANTHI ####[address] [address])[phone] Director: Sarath Olivera MD Immature granulocytes/100 WBC (Bld) 0 % Normal 0 [facility] Comment on above: Performed By: #### B MP, IOCAL, CDP, PT, MG, SRAVANTHI ####[facility] [address] [place] [address])[phone] Director: Sarath Olivera MD Lymphocytes (Bld) [#/Vol] 0.52 10*3/uL Low 1.0-4.8 [facility] Comment on above: Performed By: #### B MP, IOCAL, CDP, PT, MG, SRAVANTHI ####[facility] [address] [place] [address])[phone] Director: Sarath Olivera MD Lymphocytes/100 WBC (Bld) 5 % Low 24-44 [facility] Comment on above: Performed By: #### B MP, IOCAL, CDP, PT, MG, SRAVANTHI ####[address] [id number])[phone] Director: Sarath Olivera MD Monocytes (Bld) [#/Vol] 0.52 10*3/uL Normal 0.1-0.8 [facility] Comment on above: Performed By: #### B MP, IOCAL, CDP, PT, MG, SRAVANTHI ####[place], [place] [address])[phone] Director: Sarath Olivera MD Monocytes/100 WBC (Bld) 5 % Normal 1-7 [facility] Comment on above: Performed By: #### B MP, IOCAL, CDP, PT, MG, SRAVANTHI ####[place], [place] [address])[phone] Director: Sarath Olivera MD Morphology Manoj (Bld) [Interp] Normal Normal [facility] Comment on above: Performed By: #### B MP, IOCAL, CDP, PT, MG, SRAVANTHI ####[address] [phone] Director: Sarath Olivera MD Neutrophil (Seg) 90 % High 36-66 [facility] Comment on above: Performed By: #### B MP, IOCAL, CDP, PT, MG, SRAVANTHI ####[address] [address])[phone] Director: Sarath Olivera MD Erythrocyte distribution width (RBC) [Ratio] 14.5 % High 11.8-14.4 [facility] Comment on above: Performed By: #### B MP, IOCAL, CDP, PT, MG, SRAVANTHI ####[address] [place] [address] Lab Director: Sraath Olivera MD Hematocrit (Bld) [Volume fraction] 26.9 % Low 36.3-47.1 [facility] Comment on above: Performed By: #### B MP, IOCAL, CDP, PT, MG, SRAVANTHI ####[facility] [address] [place] [address] Lab Director: Sarath Olivera MD Hemoglobin (Bld) [Mass/Vol] 9.0 g/dL Low 11.9-15.1 [facility] Comment on above: Performed By: #### B MP, IOCAL, CDP, PT, MG, SRAVANTHI ####[place] [address] Lab Director: Sarath Olivera MD MCH (RBC) [Entitic mass] 30.8 pg Normal 25.2-33.5 [facility] Comment on above: Performed By: #### B MP, IOCAL, CDP, PT, MG, SRAVANTHI ####[facility] [address] [place] [address] Lab Director: Sarath Olivera MD MCHC (RBC) [Mass/Vol] 33.5 g/dL Normal 28.4-34.8 [facility] Comment on above: Performed By: #### B MP, IOCAL, CDP, PT, MG, SRAVANTHI ####[facility] [address] [place] [address] Lab Director: Sarath Olivera MD MCV (RBC) [Entitic vol] 92.1 fL Normal 82.6-102.9 [facility] Comment on above: Performed By: #### B MP, IOCAL, CDP, PT, MG, SRAVANTHI ####[facility] [address] [place] [address] Lab Director: Sarath Olivera MD NRBC Automated 0.0 per 100 WBC Normal 0.0 [facility] Comment on above: Performed By: #### B MP, IOCAL, CDP, PT, MG, SRAVANTHI ####[address] [address])[phone] Director: Sarath Olivera MD Platelet mean volume (Bld) [Entitic vol] 12.9 fL Normal 8.1-13.5 [facility] Comment on above: Performed By: #### B MP, IOCAL, CDP, PT, MG, SRAVANTHI ####[address] [address])[phone] Director: Sarath Olivera MD Platelets (Bld) [#/Vol] 66 10*3/uL Low 138-453 [facility] Comment on above: Performed By: #### B MP, IOCAL, CDP, PT, MG, SRAVANTHI ####[place], [place] [address])[phone] Director: Sarath Olivera MD RBC (Bld) [#/Vol] 2.92 10*6/uL Low 3.95-5.11 [facility] Comment on above: Performed By: #### B MP, IOCAL, CDP, PT, MG, SRAVANTHI ####[place], [place] [address])[phone] Director: Sarath Olivera MD WBC (Bld) [#/Vol] 10.3 10*3/uL Normal 3.5-11.3 [facility] Comment on above: Performed By: #### B MP, IOCAL, CDP, PT, MG, SRAVANTHI ####[address] [address])[phone] Director: Sarath Olivera MD Abs. Basophil 0.00 k/uL Normal 0.00-0.20 [facility] Comment on above: Performed By: #### C DP ####[address] [address])[phone] Director: Sarath Olivera MD Abs.Imm.Granulocyte 0.00 k/uL Normal 0.00-0.30 [facility] Comment on above: Performed By: #### C DP ####[place], [place] [address])[phone] Director: Sarath Olivera MD Abs.Neutrophil (Seg) 12.38 k/uL High 1.50-8.10 [facility] Comment on above: Performed By: #### C DP ####[place], [place] [address])[phone] Director: Sarath Olivera MD Basophils/100 WBC (Bld) 0 % Normal 0-2 [facility] Comment on above: Performed By: #### C DP ####[place], [place] [address])[phone] Director: Sarath Olivera MD Eosinophils (Bld) [#/Vol] 0.00 10*3/uL Normal 0.00-0.44 [facility] Comment on above: Performed By: #### C DP ####[place], [place] [address])[phone] Director: Sarath Olivera MD Eosinophils/100 WBC (Bld) 0 % Low 1-4 [facility] Comment on above: Performed By: #### C DP ####[place], [place] [address])[phone] Director: Sarath Olivera MD Immature granulocytes/100 WBC (Bld) 0 % Normal 0 [facility] Comment on above: Performed By: #### C DP ####[place], [place] [address])[phone] Director: Sarath Olivera MD Lymphocytes (Bld) [#/Vol] 0.91 10*3/uL Low 1.10-3.70 [facility] Comment on above: Performed By: #### C DP ####[address], [place] [phone] Director: Sarath Olivera MD Lymphocytes/100 WBC (Bld) 6 % Low 24-43 [facility] Comment on above: Performed By: #### C DP ####[address] [id number])[phone] Director: Sarath Olivera MD Monocytes (Bld) [#/Vol] 1.81 10*3/uL High 0.10-1.20 [facility] Comment on above: Performed By: #### C DP ####[address] [phone])[phone] Director: Sarath Olivera MD Monocytes/100 WBC (Bld) 12 % Normal 3-12 [facility] Comment on above: Performed By: #### C DP ####[address] [address])[phone] Director: Sarath Olivera MD Morphology Manoj (Bld) [Interp] ANISOCYTOSIS PRESENT Normal [facility] Comment on above: Performed By: #### C DP ####[address] [id number])[phone] Director: Sarath Olivera MD Neutrophil (Seg) 82 % High 36-65 [facility] Comment on above: Performed By: #### C DP ####[address] [address])[phone] Director: Sarath Olivera MD Erythrocyte distribution width (RBC) [Ratio] 14.9 % High 11.8-14.4 [facility] Comment on above: Performed By: #### C DP ####[address] [address])[phone] Director: Sarath Olivera MD Hematocrit (Bld) [Volume fraction] 25.3 % Low 36.3-47.1 [facility] Comment on above: Performed By: #### C DP ####[address] [address] Lab Director: Sarath Olivera MD Hemoglobin (Bld) [Mass/Vol] 7.7 g/dL Low 11.9-15.1 [facility] Comment on above: Performed By: #### C DP ####[place], [place] [address])[phone] Director: Sarath Olivera MD MCH (RBC) [Entitic mass] 30.8 pg Normal 25.2-33.5 [facility] Comment on above: Performed By: #### C DP ####[place], [place] [address])[phone] Director: Sarath Olivera MD MCHC (RBC) [Mass/Vol] 30.4 g/dL Normal 28.4-34.8 [facility] Comment on above: Performed By: #### C DP ####[address] [address])[phone] Director: Sarath Olivera MD MCV (RBC) [Entitic vol] 101.2 fL Normal 82.6-102.9 [facility] Comment on above: Performed By: #### C DP ####[place], [place] [address])[phone] Director: Sarath Olivera MD NRBC Automated 0.0 per 100 WBC Normal 0.0 [facility] Comment on above: Performed By: #### C DP ####[place], [place] [address])[phone] Director: Sarath Olivera MD Platelet mean volume (Bld) [Entitic vol] 12.7 fL Normal 8.1-13.5 [facility] Comment on above: Performed By: #### C DP ####[place], [place] [address])[phone] Director: Sarath Olivera MD Platelets (Bld) [#/Vol] 97 10*3/uL Low 138-453 [facility] Comment on above: Performed By: #### C DP ####[address] [id number])[phone] Director: Sarath Olivera MD RBC (Bld) [#/Vol] 2.50 10*6/uL Low 3.95-5.11 [facility] Comment on above: Performed By: #### C DP ####[address] [address])[phone] Director: Sarath Olivera MD WBC (Bld) [#/Vol] 15.1 10*3/uL High 3.5-11.3 [facility] Comment on above: Performed By: #### C DP ####[address] [address])[phone] Director: Sarath Olivera MD Abs. Basophil 0.00 k/uL Normal 0.0-0.2 [facility] Comment on above: Performed By: #### JOSIE RUSSELLMIC #### [facility] [address] [place] [address] Director Counseling Bureau: Sarath Olivera MD Abs.Imm.Granulocyte 0.00 k/uL Normal 0.00-0.30 [facility] Comment on above: Performed By: #### Ashley CELESTE UAMIC #### [facility] [address] [place] [address] Director Counseling Bureau: Sarath Olivera MD Abs.Neutrophil (Seg) 17.28 k/uL High 1.8-7.7 [facility] Comment on above: Performed By: #### Ashley CELESTE UAMIC #### [facility] [address] [place] [address] Director Counseling Bureau: Sarath Olivera MD Basophils/100 WBC (Bld) 0 % Normal 0-2 [facility] Comment on above: Performed By: #### Ashley CELESTE UAMIC #### [address] [address] Director Counseling Bureau: Sarath Olivera MD Eosinophils (Bld) [#/Vol] 0.00 10*3/uL Normal 0.0-0.4 [facility] Comment on above: Performed By: #### Ashley CELESTE UAMIC #### [address] [address] Director Counseling Bureau: Sarath Olivera MD Eosinophils/100 WBC (Bld) 0 % Low 1-4 [facility] Comment on above: Performed By: #### Ashley CELESTE UAMIC #### [address] [address] Director Counseling Bureau: Sarath Olivera MD Immature granulocytes/100 WBC (Bld) 0 % Normal 0 [facility] Comment on above: Performed By: #### Ashley CELESTE UAMIC #### [address] [address] Director Counseling Bureau: Sarath Olivera MD Lymphocytes (Bld) [#/Vol] 1.41 10*3/uL Normal 1.0-4.8 [facility] Comment on above: Performed By: #### Ashley CELESTE UAMIC #### [address] [address] Director Counseling Bureau: Sarath Olivera MD Lymphocytes/100 WBC (Bld) 7 % Low 24-44 [facility] Comment on above: Performed By: #### Ashley CELESTE, UAMIC #### [address] [address] Director Counseling Bureau: Sarath Olivera MD Monocytes (Bld) [#/Vol] 1.41 10*3/uL High 0.1-0.8 [facility] Comment on above: Performed By: #### Ashley AU, UAMIC #### [address] [address] Director Counseling Bureau: Sarath Olivera MD Monocytes/100 WBC (Bld) 7 % Normal 1-7 [facility] Comment on above: Performed By: #### Ashley AU, UAMIC #### [address] [address] Director Counseling Bureau: Sarath Olivera MD Morphology Manoj (Bld) [Interp] Normal Normal [facility] Comment on above: Performed By: #### Ashley AU, UAMIC #### [address] [address] Director Counseling Bureau: Sarath Olivera MD Neutrophil (Seg) 86 % High 36-66 [facility] Comment on above: Performed By: #### Ashley CELESTE, UAMIC #### [address] [address] Director Counseling Bureau: Sarath Olivera MD Platelet, Fluoresc. Platelet clumps present, count appears decreased. Normal 138-453 [facility] Comment on above: Performed By: #### Ashley AU, UAMIC #### [address] [address] Director Counseling Bureau: Sarath Olivera MD Erythrocyte distribution width (RBC) [Ratio] 14.6 % High 11.8-14.4 [facility] Comment on above: Performed By: #### Ashley AU, UAMIC #### [facility] [address] [place] [address] Director Counseling Bureau: Sarath Olivera MD Hematocrit (Bld) [Volume fraction] 29.0 % Low 36.3-47.1 [facility] Comment on above: Performed By: #### Ashley AU, UAMIC #### [facility] [address] [place] [address] Director Counseling Bureau: Sarath Olivera MD Hemoglobin (Bld) [Mass/Vol] 9.2 g/dL Low 11.9-15.1 [facility] Comment on above: Performed By: #### Ashley CELESTE UAMIC #### [address] [address] Director Counseling Bureau: Sarath Olivera MD MCH (RBC) [Entitic mass] 31.0 pg Normal 25.2-33.5 [facility] Comment on above: Performed By: #### Ashley CELESTE UAMIC #### [address] [address] Director Counseling Bureau: Sarath Olivera MD MCHC (RBC) [Mass/Vol] 31.7 g/dL Normal 28.4-34.8 [facility] Comment on above: Performed By: #### Ashley CELESTE UAMIC #### [address] [address] Director Counseling Bureau: Sarath Olivera MD MCV (RBC) [Entitic vol] 97.6 fL Normal 82.6-102.9 [facility] Comment on above: Performed By: #### Ashley CELESTE UAMIC #### [address] [address] Director Counseling Bureau: Sarath Olivera MD NRBC Automated 0.0 per 100 WBC Normal 0.0 [facility] Comment on above: Performed By: #### Ashley CELESTE UAMIC #### [address] [address] Director Counseling Bureau: Sarath Olivera MD Platelet Count See Reflexed IPF Result Normal 138-453 [facility] Comment on above: Performed By: #### Ashley CELESTE UAMIC #### [address] [address] Director Counseling Bureau: Sarath Olivera MD RBC (Bld) [#/Vol] 2.97 10*6/uL Low 3.95-5.11 [facility] Comment on above: Performed By: #### D BOOKER UAMIC #### [place] [address] Director Counseling Bureau: Sarath Olivera MD WBC (Bld) [#/Vol] 20.1 10*3/uL High 3.5-11.3 [facility] Comment on above: Performed By: #### D BOOKER UAMIC #### [place] [address] Director Counseling Bureau: Sarath Olivera MD Abs. Basophil 0.00 k/uL Normal 0.0-0.2 [facility] Comment on above: Performed By: #### B C #### [place] [address] Director Counseling Bureau: Sarath Olivera MD Abs.Imm.Granulocyte 0.00 k/uL Normal 0.00-0.30 [facility] Comment on above: Performed By: #### B C #### [place] [address] Director Counseling Bureau: Sarath Olivera MD Abs.Neutrophil (Seg) 16.68 k/uL High 1.8-7.7 [facility] Comment on above: Performed By: #### B C #### [place] [address] Director Counseling Bureau: Sarath Olivera MD Basophils/100 WBC (Bld) 0 % Normal 0-2 [facility] Comment on above: Performed By: #### B C #### [place] [address] Director Counseling Bureau: Sarath Olivera MD Eosinophils (Bld) [#/Vol] 0.00 10*3/uL Normal 0.0-0.4 [facility] Comment on above: Performed By: #### B C #### [address] [address] Director Counseling Bureau: Sarath Olivera MD Eosinophils/100 WBC (Bld) 0 % Low 1-4 [facility] Comment on above: Performed By: #### B C #### [address] [address] Director Counseling Bureau: Sarath Olivera MD Immature granulocytes/100 WBC (Bld) 0 % Normal 0 [facility] Comment on above: Performed By: #### B C #### [address] [address] Director Counseling Bureau: Sarath Olivera MD Lymphocytes (Bld) [#/Vol] 1.01 10*3/uL Normal 1.0-4.8 [facility] Comment on above: Performed By: #### B C #### [address] [address] Director Counseling Bureau: Sarath Olivera MD Lymphocytes/100 WBC (Bld) 5 % Low 24-44 [facility] Comment on above: Performed By: #### B C #### [address] [address] Director Counseling Bureau: Sarath Olivera MD Monocytes (Bld) [#/Vol] 2.41 10*3/uL High 0.1-0.8 [facility] Comment on above: Performed By: #### B C #### [address] [address] Director Counseling Bureau: Sarath Olivera MD Monocytes/100 WBC (Bld) 12 % High 1-7 [facility] Comment on above: Performed By: #### B C #### [address] [address] Director Counseling Bureau: Sarath Olivera MD Morphology Manoj (Bld) [Interp] MACROCYTOSIS PRESENT Normal [facility] Comment on above: Performed By: #### B C #### [address] [address] Director Counseling Bureau: Sarath Olivera MD Neutrophil (Seg) 83 % High 36-66 [facility] Comment on above: Performed By: #### B C #### [address] [address] Director Counseling Bureau: Sarath Olivera MD Erythrocyte distribution width (RBC) [Ratio] 14.5 % High 11.8-14.4 [facility] Comment on above: Performed By: #### B C #### [address] [address] Director Counseling Bureau: Sarath Olivera MD Hematocrit (Bld) [Volume fraction] 34.4 % Low 36.3-47.1 [facility] Comment on above: Performed By: #### B C #### [address] [address] Director Counseling Bureau: Sarath Olivera MD Hemoglobin (Bld) [Mass/Vol] 10.2 g/dL Low 11.9-15.1 [facility] Comment on above: Performed By: #### B C #### [address] [address] Director Counseling Bureau: Sarath Olivera MD MCH (RBC) [Entitic mass] 31.2 pg Normal 25.2-33.5 [facility] Comment on above: Performed By: #### B C #### [address] [address] Director Counseling Bureau: Sarath Olivera MD MCHC (RBC) [Mass/Vol] 29.7 g/dL Normal 28.4-34.8 [facility] Comment on above: Performed By: #### B C #### [address] [address] Director Counseling Bureau: Sarath Olivera MD MCV (RBC) [Entitic vol] 105.2 fL High 82.6-102.9 [facility] Comment on above: Performed By: #### B C #### [address] [address] Director Counseling Bureau: Sarath Olivera MD NRBC Automated 0.0 per 100 WBC Normal 0.0 [facility] Comment on above: Performed By: #### B C #### [address] [address] Director Counseling Bureau: Sarath Olivera MD Platelet mean volume (Bld) [Entitic vol] 12.8 fL Normal 8.1-13.5 [facility] Comment on above: Performed By: #### B C #### [address] [address] Director Counseling Bureau: Sarath Olivera MD Platelets (Bld) [#/Vol] 126 10*3/uL Low 138-453 [facility] Comment on above: Performed By: #### B C #### [address] [address] Director Counseling Bureau: Sarath Olivera MD RBC (Bld) [#/Vol] 3.27 10*6/uL Low 3.95-5.11 [facility] Comment on above: Performed By: #### B C #### [address] [address] Director Counseling Bureau: Sarath Olivera MD WBC (Bld) [#/Vol] 20.1 10*3/uL High 3.5-11.3 [facility] Comment on above: Performed By: #### B C #### [address] [address] Director Counseling Bureau: Sarath Olivera MD CT CHEST ABDOMEN PELVIS [facility] 01-06-2024 CT CHEST ABDOMEN PELVIS WO [...] Pierre Cao MD 01/06/24 Final result Normal [facility] CT CYSTOGRAM W CONTRASTon CT CYSTOGRAM [...] Jose Todd MD 01/06/24 Final result Normal [facility] CT HEAD WO CONTRASTon 2023 CT [...] Lucian Dee MD 01/06/24 Final result Normal [facility] Calcium, Ionicon 01-06-2024 Calcium [Moles/Vol] 1.14 mmol/L Normal 1.13-1.33 [facility] Comment on above: Performed By: #### B MP, IOCAL, CDP, PT, MG, SRAVANTHI ####[facility] [address] [place], [place] [id number] Lab Director: Sarath Olivera MD Calcium [Moles/Vol] 1.45 mmol/L High 1.13-1.33 [facility] Comment on above: Performed By: #### I OCAL, LACTIC, OHP ####[employer] [address] [place], [place] [address] Lab Director: Sarath Olivera MD Calcium [Moles/Vol] 1.07 mmol/L Low 1.13-1.33 [facility] Comment on above: Performed By: #### B C #### [address] [address] Director Counseling Bureau: Sarath Olivera MD Calcium [Moles/Vol] 1.07 mmol/L Low 1.13-1.33 [facility] Comment on above: Performed By: #### I OCAL ####[address] [address] Lab Director: Sarath Olivera MD Calcium [Moles/Vol] 1.09 mmol/L Low 1.13-1.33 [facility] Comment on above: Performed By: #### B C #### [address] [address] Director Counseling Bureau: Sarath Olivera MD Creatinine,Random Uron 01-05 Creatinine [Mass/Vol] 155.0 mg/dL Normal 28.0-217.0 [facility] Comment on above: Performed By: #### U RNA, URCRE, CLARENCE ####[address] [address] Lab Director: Sarath Olivera MD Drug Scr, Abuse, Uron 2023 Fentanyl, Urine Sent to reference laboratory. Separate report to follow. Abnormal NEG [facility] Comment on above: Performed By: #### U RNA, URCRE, CLARENCE ####[address] [address] Lab Director: Sarath Olivera MD Interpretive Info Assay provides rapid clinical screening only. Presumptive positive results for Normal [facility] Comment on above: Result Comment: lega l purposes should be confirmed by another method. To request confirmation, please call the lab within 7 days of sample submission. Performed By: #### U RNA, URCRE, CLARENCE ####[address] [address] Lab Director: Sarath Olivera MD Opiate(s), Ur Positive Abnormal NEG [facility] Comment on above: Result Comment: Cuto ff: 300 ng/ml Performed By: #### U RNA, URCRE, CLARENCE ####[facility] [address] [place] [address] Lab Director: Sarath Olivera MD Oxycodone, Urine Sent to reference laboratory. Separate report to follow. Abnormal NEG [facility] Comment on above: Performed By: #### U RNA, URCRE, CLARENCE ####[facility] [address] [place] [address] Lab Director: Sarath Olivera MD Amphetamine(s),Ur Negative Normal NEG [facility] Comment on above: Result Comment: Cuto ff: 1000 ng/mL Performed By: #### U RNA, URCRE, CLARENCE ####[facility] [address] [place] [address] Lab Director: Sarath Olivera MD Barbiturate(s),Ur Negative Normal NEG [facility] Comment on above: Result Comment: Cuto ff: 200 ng/ml Performed By: #### U RNA, URCRE, CLARENCE ####[facility] [address] [place] [address] Lab Director: Sarath Olivera MD Benzodiazepine(s) Negative Normal NEG [facility] Comment on above: Result Comment: Cuto ff: 200 ng/ml Performed By: #### U RNA, URCRE, CLARENCE ####[facility] [address] [place] [address] Lab Director: Sarath Olivera MD Cannabinoid(s),Ur Negative Normal NEG [facility] Comment on above: Result Comment: Cuto ff: 50 ng/ml Performed By: #### U RNA, URCRE, CLARENCE ####[facility] [address] [place] [address] Lab Director: Sarath Olivera MD Cocaine Metabolite Negative Normal NEG [facility] Comment on above: Result Comment: Cuto ff: 300 ng/ml Performed By: #### U RNA, URCRE, CLARENCE ####[facility] [address] [place] [address] Lab Director: Sarath Olivera MD Methadone Ql (U) Negative Normal NEG [facility] Comment on above: Result Comment: Cuto ff: 300 ng/ml Performed By: #### U RNA, URCRE, CLARENCE ####[address] [address] Lab Director: Sarath Olivera MD Phencyclidine, Ur Negative Normal NEG [facility] Comment on above: Result Comment: Cuto ff: 25 ng/ml Performed By: #### U RNA, URCRE, CLARENCE ####[facility] [address] [place] [address] Lab Director: Sarath Olivera MD FLUORO FOR SURGICAL PROCEDUR ESon 01-06-2024 FLUORO FOR SURGICAL PROCEDURES Radiology exam is complete. No Radiologist dictation. Please follow up with ordering provider. Final result Normal [facility] Gl Hemostasis TEG w/Lysison 01-06-2024 Fibrinogen, Func TEG 20.5 mm Normal 15.0-32.0 [facility] Comment on above: Performed By: #### D AU UAMIC #### [facility] [address] [place] [address] Director Counseling Bureau: Sarath Olivera MD LY30 (Lysis) TEG 0.4 % Normal 0.0-2.6 [facility] Comment on above: Performed By: #### D AU, UAMIC #### [facility] [address] [place] [address] Director Counseling Bureau: Sarath Olivera MD MA Rapid TEG 61.6 mm Normal 52.0-70 [facility] Comment on above: Performed By: #### D AU, UAMIC #### [address] [address] Director Counseling Bureau: Sarath Olivera MD R(Reaction Time) TEG 6.0 min Normal 4.6-9.1 [facility] Comment on above: Performed By: #### D AU, UAMIC #### [address] [address] Director Counseling Bureau: Sarath Olivera MD Fibrinogen, Func TEG 21.6 mm Normal 15.0-32.0 [facility] Comment on above: Performed By: #### B C #### [address] [address] Director Counseling Bureau: Sarath Olivera MD LY30 (Lysis) TEG 0.1 % Normal 0.0-2.6 [facility] Comment on above: Performed By: #### B C #### [address] [address] Director Counseling Bureau: Sarath Olivera MD MA Rapid TEG 62.3 mm Normal 52.0-70.0 [facility] Comment on above: Performed By: #### B C #### [address] [address] Director Counseling Bureau: Sarath Olivera MD R(Reaction Time) TEG 5.7 min Normal 4.6-9.1 [facility] Comment on above: Performed By: #### B C #### [address] [address] Director Counseling Bureau: Sarath Olivera MD Glucose (POC)on 01-06-2024 Glucose [Mass/Vol] 150 mg/dL High 74-100 [facility] Glucose [Mass/Vol] 146 mg/dL High 74-100 [facility] Glucose [Mass/Vol] 164 mg/dL High 74-100 [facility] Glucose,Whole Bloodon 2023 Glucose [Mass/Vol] 155 mg/dL High 65-105 [facility] Hemoglobin A1Con 01-06-2024 Glucose [Mass/Vol] 111 mg/dL Normal [facility] Comment on above: Result Comment: The ADA and AACC recommend providing the estimated average glucose result to permit better patient understanding of their HBA1c result. Performed By: #### D BOOKER UAMIC #### [employer] [address] [place] [address] Director Counseling Bureau: Sarath Olivera MD HbA1c (Bld) [Mass fraction] 5.5 % Normal 4.0-6.0 [facility] Comment on above: Performed By: #### D BOOKER UAMIC #### [employer] [address] [place] [address] Director Counseling Bureau: Sarath Olivera MD Hgb/Hcton 01-06-2024 Hematocrit (Bld) [Volume fraction] 29.1 % Low 36.3-47.1 [facility] Comment on above: Performed By: #### A LB, FT4, TSHX, GLYHGB, HH, VD25 ####[employer] [address] [place] [address] Lab Director: Saarth Olivera MD Hemoglobin (Bld) [Mass/Vol] 8.6 g/dL Low 11.9-15.1 [facility] Comment on above: Performed By: #### A LB, FT4, TSHX, GLYHGB, HH, VD25 ####[facility] [address] [place] [address] Lab Director: Sarath Olivera MD Lactate, Sepsison 01-06-2024 Lactic Acid,Sep Wbld 7.4 mmol/L High 0.5-1.9 [facility] Comment on above: Performed By: #### B C #### [employer] [address] [place] [address] Director Counseling Bureau: Sarath Olivera MD Lactic Acidon 01-06-2024 Lactic Acid,Whole Bl 2.8 mmol/L High 0.7-2.1 [facility] Comment on above: Performed By: #### I OCAL LACTIC, OHP ####[facility] [address] [place], [place] [id number] Lab Director: Sarath Olivera MD Lactic Acid,Whole Bl 1.8 mmol/L Normal 0.7-2.1 [facility] Comment on above: Performed By: #### B C #### [facility] [address] [place] [address] Director Counseling Bureau: Sarath Olivera MD Lactic Acid (POC)on 01-06-20 24 Lactate [Moles/Vol] 1.3 mmol/L Normal 0.56-1.39 [facility] Lactate [Moles/Vol] 1.5 mmol/L High 0.56-1.39 [facility] Lactate [Moles/Vol] 1.7 mmol/L High 0.56-1.39 [facility] Lactate [Moles/Vol] 7.2 mmol/L High 0.56-1.39 [facility] Liver Profileon 01-06-2024 Albumin [Mass/Vol] 3.0 g/dL Low 3.5-5.2 [facility] Comment on above: Performed By: #### L MARY ALCB #### [employer] [address] [place] [address] Director Counseling Bureau: Sarath Olivera MD Albumin/Glob Ratio 2.0 Normal 1.0-2.5 [facility] Comment on above: Performed By: #### L ACTMARILIN ALCB #### [employer] [place] [address] [place] [address] Director Counseling Bureau: Sarath Olivera MD Alkaline Phos 61 U/L Normal 35-104 [facility] Comment on above: Performed By: #### L ACTMARILIN, ALCB #### [facility] [place] [address] [place] [address] Director Counseling Bureau: Sarath Olivera MD ALT [Catalytic activity/Vol] 19 U/L Normal [address] [place] [address] Comment on above: Performed By: #### L ACTIC, ALCB #### [facility] [place] [address] [place] [address] Director Counseling Bureau: Sarath Olivera MD AST [Catalytic activity/Vol] 62 U/L High 10-35 [facility] Comment on above: Performed By: #### L ACTIC, ALCB #### [facility] [address] [place] [address] Director Counseling Bureau: Sarath Olivera MD Bilirubin [Mass/Vol] 0.3 mg/dL Normal 0.00-1.20 [facility] Comment on above: Performed By: #### L ACTIC, ALCB #### [facility] [address] [place] [address] Director Counseling Bureau: Sarath Olivera MD Bilirubin, Indirect Can not be calculated Normal 0.0-1 .0 [facility] Comment on above: Performed By: #### L ACTIC, ALCB #### [facility] [address] [place] [address] Director Counseling Bureau: Sarath Olivera MD Bilirubin.indirect [Mass/Vol] mg/dL Normal 0.00-0.30 [facility] Comment on above: Performed By: #### L ACTIC, ALCB #### [facility] [address] [place] [address] Director Counseling Bureau: Sarath Olivera MD Globulin (S) [Mass/Vol] 1.8 g/dL Normal [facility] Comment on above: Performed By: #### L ACTIC, ALCB #### [facility] [address] [place] [address] Director Counseling Bureau: Sarath Olivera MD Protein [Mass/Vol] 4.8 g/dL Low 6.6-8.7 [facility] Comment on above: Performed By: #### L ACTIC, ALCB #### [facility] [address] [place] [address] Director Counseling Bureau: Sarath Olivera MD Magnesiumon 7 Magnesium [Mass/Vol] 1.9 mg/dL Normal 1.6-2.4 [facility] Comment on above: Performed By: #### B MP, IOCAL, CDP, PT, MG, SRAVANTHI ####[facility] [address] [place] [phone])[phone] Director: Sarath Olivera MD Magnesium [Mass/Vol] 1.6 mg/dL Normal 1.6-2.4 [facility] Comment on above: Performed By: #### D AU, UAMIC #### [facility] [address] [place] [address] Director Counseling Bureau: Sarath Olivera MD Magnesium [Mass/Vol] 1.8 mg/dL Normal 1.6-2.4 [facility] Comment on above: Result Comment: QA F LAGS AND/OR RANGES MODIFIED BY DEMOGRAPHIC UPDATE ON 01/05 AT 0131 Performed By: #### B C #### [facility] [place] [facility] [place] [address] Director Counseling Bureau: Sarath Olivera MD Open Heart Panelon 4 Jerrell Test INFORMATION NOT PROVIDED Normal [facility] Comment on above: Performed By: #### I OCAL, LACTIC, OHP ####[facility] [address] [place], [place] [phone] Director: Sarath Olivera MD Body Temp. 37.0 Normal [facility] Comment on above: Performed By: #### I OCAL, LACTIC, OHP ####[facility] [address] [place] [address] Lab Director: Sarath Olivera MD Carboxy Hgb 0.8 % Normal 0-5 [facility] Comment on above: Result Comment: Reference Range: Non-Smokers 0-2% Average Smoker 2-4% Heavy Smoker <10% Performed By: #### I OCAL, LACTIC, OHP ####[facility] [address] [place], [place] [phone] Director: Sarath Olivera MD Chloride [Moles/Vol] 116 mmol/L High 98-110 [facility] Comment on above: Performed By: #### I OCAL, LACTIC, OHP ####[facility] [address] [place], [place] [phone] Director: Sarath Olivera MD FIO2 50% Normal [facility] Comment on above: Performed By: #### I OCAL, LACTIC, OHP ####[facility] [address] [place], [place] [phone] Director: Sarath Olivera MD Glucose [Mass/Vol] 138 mg/dL High 65-105 [facility] Comment on above: Performed By: #### I OCAL, LACTIC, OHP ####[facility] [address] [place], [place] [phone] Director: Sarath Olivera MD HCO3 (Bld) [Moles/Vol] 19.3 mmol/L Low 22-27 [facility] Comment on above: Performed By: #### I OCAL, LACTIC, OHP ####[facility] [address] [place], [place] [phone] Director: Sarath Olivera MD Hematocrit (Bld) [Volume fraction] 25.5 % Low 36.3-47.1 [facility] Comment on above: Performed By: #### I OCAL, LACTIC, OHP ####[facility] [address] [place] [address] Lab Director: Sarath Olivera MD Hemoglobin (Bld) [Mass/Vol] 8.2 g/dL Low 11.9-15.1 [facility] Comment on above: Performed By: #### I OCAL, LACTIC, OHP ####[facility] [address] [place], [place] [phone] Director: Sarath Olivera MD Negative Base Excess 6.1 mmol/L High 0.0-2.0 [facility] Comment on above: Performed By: #### I OCAL, LACTIC, OHP ####[facility] [address] [place], [place] [phone] Director: Sarath Olivera MD Oxygen (Bld) [Partial pressure] 106.0 mm[Hg] High 75-95 [facility] Comment on above: Performed By: #### I OCAL, LACTIC, OHP ####[facility] [address] [place], [place] [phone] Director: Sarath Olivera MD Oxygen saturation in Blood 97.7 % Normal 94-100 [facility] Comment on above: Performed By: #### I OCAL, LACTIC, OHP ####[facility] [address] [place], [place] [phone] Director: Sarath Olivera MD pCO2 40.0 mmHg Normal 32-45 [facility] Comment on above: Performed By: #### I OCAL, LACTIC, OHP ####[facility] [address] [place], [place] [phone] Director: Sarath Olivera MD pH (Bld) 7.304 [pH] Low 7.350-7.450 [facility] Comment on above: Performed By: #### I OCAL, LACTIC, OHP ####[facility] [address] [place], [place] [phone] Director: Sarath Olivera MD Potassium [Moles/Vol] 4.6 mmol/L Normal 3.6-5.0 [facility] Comment on above: Performed By: #### I OCAL, LACTIC, OHP ####[facility] [address] [place] [address] Lab Director: Sarath Olivera MD Sodium [Moles/Vol] 142 mmol/L Normal 136-145 [facility] Comment on above: Performed By: #### I OCAL, LACTIC, OHP ####[address] [address] Lab Director: Sarath Olivera MD Jerrell Test INFORMATION NOT PROVIDED [facility] Comment on above: Performed By: #### B C #### [address] [address] Director Counseling Bureau: Sarath Olivera MD Body Temp. 36.0 Normal [facility] Comment on above: Performed By: #### B C #### [address] [address] Director Counseling Bureau: Sarath Olivera MD Carboxy Hgb 1.6 % Normal 0-5 [facility] Comment on above: Result Comment: Reference Range: Non-Smokers 0-2% Average Smoker 2-4% Heavy Smoker <10% Performed By: #### B C #### [address] [address] Director Counseling Bureau: Sarath Olivera MD Chloride [Moles/Vol] 115 mmol/L High 98-110 [facility] Comment on above: Performed By: #### B C #### [address] [address] Director Counseling Bureau: Sarath Olivera MD FIO2 70% Normal [facility] Comment on above: Performed By: #### B C #### [address] [address] Director Counseling Bureau: Sarath Olivera MD Glucose [Mass/Vol] 138 mg/dL High 65-105 [facility] Comment on above: Performed By: #### B C #### [address] [address] Director Counseling Bureau: Sarath Olivera MD HCO3 (Bld) [Moles/Vol] 17.8 mmol/L Low 22-27 [facility] Comment on above: Performed By: #### B C #### [address] [address] Director Counseling Bureau: Sarath Olivera MD Hematocrit (Bld) [Volume fraction] 25.6 % Low 36.3-47.1 [facility] Comment on above: Performed By: #### B C #### [address] [address] Director Counseling Bureau: Sarath Olivera MD Hemoglobin (Bld) [Mass/Vol] 8.2 g/dL Low 11.9-15.1 [facility] Comment on above: Performed By: #### B C #### [address] [address] Director Counseling Bureau: Sarath Olivera MD Negative Base Excess 8.4 mmol/L High 0.0-2.0 [facility] Comment on above: Performed By: #### B C #### [address] [address] Director Counseling Bureau: Sarath Olivera MD Oxygen (Bld) [Partial pressure] 102.0 mm[Hg] High 75-95 [facility] Comment on above: Performed By: #### B C #### [address] [address] Director Counseling Bureau: Sarath Olivera MD Oxygen saturation in Blood 96.8 % Normal 94-100 [facility] Comment on above: Performed By: #### B C #### [address] [address] Director Counseling Bureau: Sarath Olivera MD pCO2 42.6 mmHg Normal 32-45 [facility] Comment on above: Performed By: #### B C #### [address] [address] Director Counseling Bureau: Sarath Olivera MD pH (Bld) 7.246 [pH] Low 7.350-7.450 [facility] Comment on above: Performed By: #### B C #### [address] [address] Director Counseling Bureau: Sarath Olivera MD Potassium [Moles/Vol] 4.5 mmol/L Normal 3.6-5.0 [facility] Comment on above: Performed By: #### B C #### [address] [address] Director Counseling Bureau: Sarath Olivera MD Sodium [Moles/Vol] 140 mmol/L Normal 136-145 [facility] Comment on above: Performed By: #### B C #### [address] [address] Director Counseling Bureau: Sarath Olivera MD PTon 01-06-2024 INR Coag (PPP) [Relative time] 1.4 {INR} Normal [facility] Comment on above: Result Comment: Therapeutic Range: Moderate Anticoagulant Intensity: INR = 2.0-3.0 High Anticoagulant Intensity: INR = 2.5-3.5 Performed By: #### B MP, IOCAL, CDP, PT, MG, SRAVANTHI ####[address] [address] Lab Director: Sarath Olivera MD PT Coag (PPP) [Time] 17.3 s High 11.7-14.9 [facility] Comment on above: Performed By: #### B MP, IOCAL, CDP, PT, MG, SRAVANTHI ####[address] [address] [place] [address] Lab Director: Sarath Olivera MD INR Coag (PPP) [Relative time] 1.6 {INR} Normal [facility] Comment on above: Result Comment: Therapeutic Range: Moderate Anticoagulant Intensity: INR = 2.0-3.0 High Anticoagulant Intensity: INR = 2.5-3.5 Performed By: #### RIOS SANZ #### [facility] [address] [place] [address] Director Counseling Bureau: Sarath Olivera MD PT Coag (PPP) [Time] 18.4 s High 11.7-14.9 [facility] Comment on above: Performed By: #### L MELANY HERNANDEZB #### [facility] [address] [place] [address] Director Counseling Bureau: Sarath Olivera MD INR Coag (PPP) [Relative time] 1.5 {INR} Normal [facility] Comment on above: Result Comment: Therapeutic Range: Moderate Anticoagulant Intensity: INR = 2.0-3.0 High Anticoagulant Intensity: INR = 2.5-3.5 Performed By: #### Ashley CELESTE UAMIC #### [facility] [address] [place] [address] Director Counseling Bureau: Sarath Olivera MD PT Coag (PPP) [Time] 17.8 s High 11.7-14.9 [facility] Comment on above: Performed By: #### D BOOKER UAMIC #### [facility] [address] [place] [address] Director Counseling Bureau: Sarath Olivera MD Phosphorus, Inorg.on 024 Phosphorus, Inorg. 3.2 mg/dL Normal 2.5-4.5 [facility] Comment on above: Performed By: #### B MP, IOCAL, CDP, PT, MG, SRAVANTHI ####[facility] [address] [place] [address] Lab Director: Sarath Olivera MD Phosphorus, Inorg. 4.7 mg/dL High 2.5-4.5 [facility] Comment on above: Performed By: #### D AU, UAMIC #### [facility] [address] [place] [address] Director Counseling Bureau: Sarath Olivera MD Phosphorus, Inorg. 4.7 mg/dL High 2.5-4.5 [facility] Comment on above: Performed By: #### B C #### [facility] [place] [facility] [place] [address] Director Counseling Bureau: Sarath Olivera MD Sodium, Random Uron 01-06-20 24 Sodium (U) [Moles/Vol] 25 mmol/L Normal [facility] Comment on above: Result Comment: No n ormal range established. Performed By: #### U RNA, URCRE, CLARENCE ####[facility] [address] [place] [address] Lab Director: Sarath Olivera MD TSH w/reflex to FT4on 2023 Thyroid Stim. Horm. 3.13 uIU/mL Normal 0.27-4.20 [facility] Comment on above: Performed By: #### A LB, FT4, TSHX, GLYHGB, HH, VD25 ####[facility] [address] [place] [address] Lab Director: Sarath Olivera MD Thyroxine, Freeon 01-06-2024 Thyroxine, Free 0.9 ng/dL Low 0.92-1.68 [facility] Comment on above: Performed By: #### A LB, FT4, TSHX, GLYHGB, HH, VD25 ####[facility] [address] [place] [address] Lab Director: Sarath Olivera MD Troponinon 01-06-2024 Troponin, High Sens 114 ng/L Critically high 0-14 [facility] Comment on above: Result Comment: High Sensitivity Troponin values cannot be compared with other Troponin methodologies. Performed By: #### L MELANY HERNANDEZB #### [facility] [address] [place] [address] Director Counseling Bureau: Sarath Olivera MD Type + Screenon 01-06-2024 Type + Screen Sample Expiration 01/08/2024,2359 Arm Band Number [id number] ABO/Rh(D) O POSITIVE Antibody Screen NEGATIVE Unit Number [id number] Blood Component Type Leukocyte Reduced Red Cell Unit Division 00 Status of Unit TRANSFUSED Transfusion Status OK TO TRANSFUSE Crossmatch Result COMPATIBLE Unit Number [id number] Blood Component Type Leukocyte Reduced Red Cell Unit Division 00 Status of Unit TRANSFUSED Transfusion Status OK TO TRANSFUSE Crossmatch Result COMPATIBLE Normal [facility] Comment on above: Performed By: #### B C #### [facility] [address] [place] [address] Director Counseling Bureau: Sarath Olivera MD Vitamin B12on 01-06-2024 Cobalamin (Vitamin B12) [Mass/Vol] 253 pg/mL Normal 232-1245 [facility] Comment on above: Performed By: #### B C #### [facility] [address] [place] [address] Director Counseling Bureau: Sarath Olivera MD Vitamin D 25 OHon 01-06-2024 Vitamin D 25 [place] 34.7 ng/mL Normal 30.0-100.0 [facility] Comment on above: Result Comment: Reference Range: Vitamin D status Range Deficiency <20 ng/mL Mild Deficiency 20-30 ng/mL Sufficiency 30-100 ng/mL Toxicity >100 ng/mL Performed By: #### D AU, UAMIC #### [address] [address] Director Counseling Bureau: Sarath Olivera MD Vitamin D 25 [place] 34.3 ng/mL Normal 30.0-100.0 [facility] Comment on above: Result Comment: Reference Range: Vitamin D status Range Deficiency <20 ng/mL Mild Deficiency 20-30 ng/mL Sufficiency 30-100 ng/mL Toxicity >100 ng/mL Performed By: #### L ACTIC, ALCB #### [facility] [place] [phone] Director Counseling Bureau: Sarath Olivera MD XR CHEST PORTABLEon 01-06-20 [...] Chevy Parra MD 01/06/24 Final result Normal [facility] XR CHEST PORTABLE EXAMINATION: ONE XRAY [...] Concepción Godoy MD 01/06/24 Final result Normal [facility] XR FEMUR RIGHT (MIN 2 VIEWS) [...] Chevy Parra MD 01/06/24 Final result Normal [facility] XR SHOULDER LEFT (MIN 2 VIEW [...] Chevy Parra MD 01/06/24 Final result Normal [facility] Basic Metabolic Profon 01-04 Anion gap [Moles/Vol] 16 mmol/L Normal 9-16 [facility] Comment on above: Performed By: #### D AU, UAMIC #### [facility] [place] [address] Director Counseling Bureau: Sarath Olivera MD Calcium [Mass/Vol] 6.3 mg/dL Low 8.6-10.4 [facility] Comment on above: Performed By: #### D AU, UAMIC #### [facility] [address] [place] [address] Director Counseling Bureau: Sarath Olivera MD Chloride [Moles/Vol] 115 mmol/L High 98-107 [facility] Comment on above: Performed By: #### D AU, UAMIC #### [facility] [address] [place] [address] Director Counseling Bureau: Sarath Olivera MD CO2 [Moles/Vol] 13 mmol/L Low 20-31 [facility] Comment on above: Performed By: #### Ashley CELESTE, UAMIC #### [facility] [address] [place] [address] Director Counseling Bureau: Sarath Olivera MD Creatinine [Mass/Vol] 1.3 mg/dL High 0.50-0.90 [facility] Comment on above: Performed By: #### Ashley CELESTE, UAMIC #### [address] [address] Director Counseling Bureau: Sarath Olivera MD GFR/1.73 sq M.predicted among non-blacks MDRD (S/P/Bld) [Vol rate/Area] 29 mL/min/{1.73_m2} Low >60 [facility] Comment on above: Result Comment: These [...] Performed By: #### Ashley AU, UAMIC #### [address] [address] Director Counseling Bureau: Sarath Olivera MD Glucose [Mass/Vol] 174 mg/dL High 74-99 [facility] Comment on above: Performed By: #### Ashley CELESTE UAMIC #### [facility] [address] [place] [address] Director Counseling Bureau: Sarath Olivera MD Potassium [Moles/Vol] 3.4 mmol/L Low 3.7-5.3 [facility] Comment on above: Result Comment: SPEC IMEN SLIGHTLY HEMOLYZED, RESULTS MAY BE ADVERSELY AFFECTED. Performed By: #### Ashley CELESTE UAMIC #### [facility] [address] [place] [address] Director Counseling Bureau: Sarath Olivera MD Sodium [Moles/Vol] 144 mmol/L Normal 136-145 [facility] Comment on above: Performed By: #### Ashley CELESTE UAMIC #### [facility] [address] [place] [address] Director Counseling Bureau: Sarath Olivera MD Urea nitrogen [Mass/Vol] 23 mg/dL Normal 8-23 [facility] Comment on above: Performed By: #### Ashley CELESTE UAMIC #### [facility] [address] [place] [address] Director Counseling Bureau: Sarath Olivera MD CBCon 01-05-2024 Erythrocyte distribution width (RBC) [Ratio] 14.4 % Normal 11.8-14.4 [facility] Comment on above: Performed By: #### B C #### [facility] [address] [place] [address] Director Counseling Bureau: Sarath Olivera MD Hematocrit (Bld) [Volume fraction] 31.8 % Low 36.3-47.1 [facility] Comment on above: Performed By: #### B C #### [facility] [address] [place] [address] Director Counseling Bureau: Sarath Olivera MD Hemoglobin (Bld) [Mass/Vol] 9.9 g/dL Low 11.9-15.1 [facility] Comment on above: Performed By: #### B C #### [address] [address] Director Counseling Bureau: Sarath Olivera MD MCH (RBC) [Entitic mass] 31.2 pg Normal 25.2-33.5 [facility] Comment on above: Performed By: #### B C #### [address] [address] Director Counseling Bureau: Sarath Olivera MD MCHC (RBC) [Mass/Vol] 31.1 g/dL Normal 28.4-34.8 [facility] Comment on above: Performed By: #### B C #### [address] [address] Director Counseling Bureau: Sarath Olivera MD MCV (RBC) [Entitic vol] 100.3 fL Normal 82.6-102.9 [facility] Comment on above: Performed By: #### B C #### [address] [address] Director Counseling Bureau: Sarath Olivera MD NRBC Automated 0.0 per 100 WBC Normal 0.0 [facility] Comment on above: Performed By: #### B C #### [address] [address] Director Counseling Bureau: Sarath Olivera MD Platelet mean volume (Bld) [Entitic vol] 12.8 fL Normal 8.1-13.5 [facility] Comment on above: Performed By: #### B C #### [address] [address] Director Counseling Bureau: Sarath Olivera MD Platelets (Bld) [#/Vol] 146 10*3/uL Normal 138-453 [facility] Comment on above: Performed By: #### B C #### [address] [address] Director Counseling Bureau: Sarath Olivera MD RBC (Bld) [#/Vol] 3.17 10*6/uL Low 3.95-5.11 [facility] Comment on above: Performed By: #### B C #### [employer] [address] [place], [place] [phone] Director Counseling Bureau: Sarath Olivera MD WBC (Bld) [#/Vol] 22.0 10*3/uL High 3.5-11.3 [facility] Comment on above: Performed By: #### B C #### [employer] [address] [place], [place] [phone] Director Counseling Bureau: Sarath Olivera MD CT CHEST ABDOMEN PELVIS [...] Amol Martínez MD 01/05/24 Final result Normal [facility] CT LUMBAR SPINE BONY RECONST RUCTIONon [...] Amol Martínez MD 01/05/24 Final result Normal [facility] CT THORACIC SPINE BONY RECON STRUCTIONon [...] Amol Martínez MD 01/05/24 Final result Normal [facility] Creatine Kinaseon 01-05-2024 CK [Catalytic activity/Vol] 725 U/L High 26-192 [facility] Comment on above: Performed By: #### Ashley CELESTE UAMIC #### [facility] [address] [place] [address] Director Counseling Bureau: Sarath Olivera MD Drug Scr, Abuse, Uron 2023 Fentanyl, Urine Sent to reference laboratory. Separate report to follow. Abnormal NEG [facility] Comment on above: Result Comment: OZZIE CHRISTINE NOTIFIED (Positive cutoff 5 ng/ml) Performed By: #### Ashley CELESTE UAMIC #### [facility] [address] [place] [phone] Director Counseling Bureau: Sartah Olivera MD Oxycodone, Urine Sent to reference laboratory. Separate report to follow. Abnormal NEG [facility] Comment on above: Result Comment: OZZIE CHRISTINE NOTIFIED (Positive cutoff 100 ng/mL) Performed By: #### Ashley AU, UAMIC #### [employer] [address] [place] [address] Director Counseling Bureau: Sarath Olivera MD Interpretive Info Assay provides rapid clinical screening only. Presumptive positive results for Normal [facility] Comment on above: Result Comment: lega l purposes should be confirmed by another method. To request confirmation, please call the lab within 7 days of sample submission. Performed By: #### Ashley AU, UAMIC #### [employer] [address] [place] [address] Director Counseling Bureau: Sarath Olivera MD Opiate(s), Ur Positive Abnormal NEG [facility] Comment on above: Result Comment: Cuto ff: 300 ng/ml Performed By: #### Ashley AU, UAMIC #### [employer] [address] [place] [address] Director Counseling Bureau: Sarath Olivera MD Amphetamine(s),Ur Negative Normal NEG [facility] Comment on above: Result Comment: Cuto ff: 1000 ng/mL Performed By: #### Ashley AU, UAMIC #### [employer] [address] [place] [address] Director Counseling Bureau: Sarath Olivera MD Barbiturate(s),Ur Negative Normal NEG [facility] Comment on above: Result Comment: Cuto ff: 200 ng/ml Performed By: #### Ashley AU, UAMIC #### [employer] [address] [place] [address] Director Counseling Bureau: Sarath Olivera MD Benzodiazepine(s) Negative Normal NEG [facility] Comment on above: Result Comment: Cuto ff: 200 ng/ml Performed By: #### D AU, UAMIC #### [employer] [address] [place] [address] Director Counseling Bureau: Sarath Olivera MD Cannabinoid(s),Ur Negative Normal NEG [facility] Comment on above: Result Comment: Cuto ff: 50 ng/ml Performed By: #### Ashley AU, UAMIC #### [address] [address] Director Counseling Bureau: Sarath Olivera MD Cocaine Metabolite Negative Normal NEG [facility] Comment on above: Result Comment: Cuto ff: 300 ng/ml Performed By: #### Ashley CELESTE, UAMIC #### [address] [address] Director Counseling Bureau: Sarath Olivera MD Methadone Ql (U) Negative Normal NEG [facility] Comment on above: Result Comment: Cuto ff: 300 ng/ml Performed By: #### Ashley CELESTE, UAMIC #### [address] [address] Director Counseling Bureau: Sarath Olivera MD Phencyclidine, Ur Negative Normal NEG [facility] Comment on above: Result Comment: Cuto ff: 25 ng/ml Performed By: #### Ashley CELESTE, UAMIC #### [address] [address] Director Counseling Bureau: Sarath Olivera MD Ethanol Alcoholon 01-05-2024 Ethanol [Mass/Vol] mg/dL Normal <10 [facility] Comment on above: Performed By: #### B C #### [address] [address] Director Counseling Bureau: Sarath Olivera MD Ethanol percent <0.010 Normal <0.010 [facility] Comment on above: Performed By: #### B C #### [facility] [address] [place] [address] Director Counseling Bureau: Sarath Olivera MD Global Hemostasis(TEG 6S)on 01-05-2024 Angle TEG 75.0 deg Normal 63.0-78.0 [facility] Comment on above: Performed By: #### B C #### [address] [address] Director Counseling Bureau: Sarath Olivera MD Fibrinogen, Func TEG 23.0 mm Normal 15.0-32.0 [facility] Comment on above: Performed By: #### B C #### [address] [address] Director Counseling Bureau: Sarath Olivera MD K (Kinetics) TEG 1.1 min Normal 0.8-2.1 [facility] Comment on above: Performed By: #### B C #### [address] [address] Director Counseling Bureau: Sarath Olivera MD MA (Max Clot) TEG 65.4 mm Normal 52.0-69.0 [facility] Comment on above: Performed By: #### B C #### [address] [address] Director Counseling Bureau: Sarath Olivera MD MA Rapid TEG 65.2 mm Normal 52.0-70 [facility] Comment on above: Performed By: #### B C #### [address] [address] Director Counseling Bureau: Sarath Olivera MD R TEG w/Hep 4.6 min Normal 4.3-8.3 [facility] Comment on above: Performed By: #### B C #### [address] [address] Director Counseling Bureau: Sarath Olivera MD R(Reaction Time) TEG 4.7 min Normal 4.6-9.1 [facility] Comment on above: Performed By: #### B C #### [address] [address] Director Counseling Bureau: Sarath Olivera MD Lactate, Sepsison 01-05-2024 Lactic Acid,Sep Wbld 7.9 mmol/L High 0.5-1.9 [facility] Comment on above: Performed By: #### Ashley CELESTE UAMIC #### [address] [address] Director Counseling Bureau: Sarath Olivera MD Lactic Acidon 01-05-2024 Lactic Acid,Whole Bl 7.0 mmol/L High 0.7-2.1 [facility] Comment on above: Performed By: #### L ACTIC, ALCB #### [facility] [address] [place] [address] Director Counseling Bureau: Sarath Olivera MD Myoglobinon 01-05-2024 Myoglobin [Mass/Vol] 3228 ng/mL High 25-58 [facility] Comment on above: Performed By: #### Ashley CELESTE UAMIC #### [address] [address] Director Counseling Bureau: Sarath Olivera MD PTon 01-05-2024 INR Coag (PPP) [Relative time] 1.4 {INR} Normal [facility] Comment on above: Result Comment: Therapeutic Range: Moderate Anticoagulant Intensity: INR = 2.0-3.0 High Anticoagulant Intensity: INR = 2.5-3.5 Performed By: #### B C #### [address] [address] Director Counseling Bureau: Sarath Olivera MD PT Coag (PPP) [Time] 16.6 s High 11.7-14.9 [facility] Comment on above: Performed By: #### B C #### [address] [address] Director Counseling Bureau: Sarath Olivera MD Trauma Profileon 01-05-2024 Anion gap [Moles/Vol] 15 mmol/L Normal 9-16 [facility] Comment on above: Performed By: #### B C #### [address] [address] Director Counseling Bureau: Sarath Olivera MD Chloride [Moles/Vol] 111 mmol/L High 98-107 [facility] Comment on above: Performed By: #### B C #### [address] [address] Director Counseling Bureau: Sarath Olivera MD CO2 [Moles/Vol] 17 mmol/L Low 20-31 [facility] Comment on above: Performed By: #### B C #### [address] [address] Director Counseling Bureau: Sarath Olivera MD Creatinine [Mass/Vol] 1.5 mg/dL High 0.50-0.90 [facility] Comment on above: Performed By: #### B C #### [address] [address] Director Counseling Bureau: Sarath Olivera MD Ethanol [Mass/Vol] mg/dL Normal <10 [facility] Comment on above: Performed By: #### B C #### [address] [address] Director Counseling Bureau: Sarath Olivera MD Ethanol percent <0.010 Normal <0.010 [facility] Comment on above: Performed By: #### B C #### [address] [address] Director Counseling Bureau: Sarath Olivera MD GFR/1.73 sq M.predicted among non-blacks MDRD (S/P/Bld) [Vol rate/Area] 23 mL/min/{1.73_m2} Low >60 [facility] Comment on above: Result Comment: These [...] secretion. Performed By: #### B C #### [address] [address] Director Counseling Bureau: Sarath Olivera MD Glucose [Mass/Vol] 191 mg/dL High 74-99 [facility] Comment on above: Performed By: #### B C #### [address] [address] Director Counseling Bureau: Sarath Olivera MD Potassium [Moles/Vol] 3.6 mmol/L Low 3.7-5.3 [facility] Comment on above: Performed By: #### B C #### [address] [address] Director Counseling Bureau: Sarath Olivera MD Sodium [Moles/Vol] 143 mmol/L Normal 136-145 [facility] Comment on above: Performed By: #### B C #### [address] [address] Director Counseling Bureau: Sarath Olivera MD Urea nitrogen [Mass/Vol] 26 mg/dL High 8-23 [facility] Comment on above: Performed By: #### B C #### [address] [address] Director Counseling Bureau: Sarath Olivera MD HCG Screen, Blood Negative Normal NEG [facility] Comment on above: Result Comment: Spec imens with hCG levels near the threshold of the test (25 mIU/mL) may give a negative or indeterminate result. In such cases, another test should be performed with a new specimen in 48-72 hours. If early is suspected clinically in this setting, correlation with quantitative serum b-hCG level is suggested. [facility] has confirmed the use of plasma for this test. This has not been cleared or approved by the U.S. Food and Drug Administration. The FDA has determined that such clearance is not necessary. Performed By: #### B C #### [address] [address] Director Counseling Bureau: Sarath Olivera MD aPTT Coag (Bld) [Time] 28.7 s Normal 23.0-36.5 [facility] Comment on above: Result Comment: IV Heparin Therapy Range: 66.0-92.0 sec Performed By: #### B C #### [address] [address] Director Counseling Bureau: Sarath Olivera MD INR Coag (PPP) [Relative time] 4.4 {INR} Normal [facility] Comment on above: Result Comment: Therapeutic Range: Moderate Anticoagulant Intensity: INR = 2.0-3.0 High Anticoagulant Intensity: INR = 2.5-3.5 Performed By: #### B C #### [address] [address] Director Counseling Bureau: Sarath Olivera MD PT Coag (PPP) [Time] 40.5 s High 11.7-14.9 [facility] Comment on above: Performed By: #### B C #### [address] [address] Director Counseling Bureau: Sarath Olivera MD Body Temp. 37.0 Normal [facility] Comment on above: Performed By: #### B C #### [address] [address] Director Counseling Bureau: Sarath Olivera MD Carboxy Hgb 2.7 % Normal 0-5 [facility] Comment on above: Result Comment: Reference Range: Non-Smokers 0-2% Average Smoker 2-4% Heavy Smoker <10% Performed By: #### B C #### [address] [address] Director Counseling Bureau: Sarath Olivera MD Erythrocyte distribution width (RBC) [Ratio] 14.4 % Normal 11.8-14.4 [facility] Comment on above: Performed By: #### B C #### [address] [address] Director Counseling Bureau: Sarath Olivera MD FIO2 INFORMATION NOT PROVIDED [facility] Comment on above: Performed By: #### B C #### [address] [address] Director Counseling Bureau: Sarath Olivera MD HCO3 (Bld) [Moles/Vol] 17.2 mmol/L Low 24-30 [facility] Comment on above: Performed By: #### B C #### [address] [address] Director Counseling Bureau: Sarath Olivera MD Hematocrit (Bld) [Volume fraction] 32.6 % Low 36.3-47.1 [facility] Comment on above: Performed By: #### B C #### [address] [address] Director Counseling Bureau: Sarath Olivera MD Hemoglobin (Bld) [Mass/Vol] 9.8 g/dL Low 11.9-15.1 [facility] Comment on above: Performed By: #### B C #### [address] [address] Director Counseling Bureau: Sarath Olivera MD MCH (RBC) [Entitic mass] 31.4 pg Normal 25.2-33.5 [facility] Comment on above: Performed By: #### B C #### [address] [address] Director Counseling Bureau: Sarath Olivera MD MCHC (RBC) [Mass/Vol] 30.1 g/dL Normal 28.4-34.8 [facility] Comment on above: Performed By: #### B C #### [address] [address] Director Counseling Bureau: Sarath Olivera MD MCV (RBC) [Entitic vol] 104.5 fL High 82.6-102.9 [facility] Comment on above: Performed By: #### B C #### [address] [address] Director Counseling Bureau: Sarath Olivera MD Negative Base Excess 9.9 mmol/L High 0.0-2.0 [facility] Comment on above: Performed By: #### B C #### [address] [address] Director Counseling Bureau: Sarath Olivera MD NRBC Automated 0.0 per 100 WBC Normal 0.0 [facility] Comment on above: Performed By: #### B C #### [address] [address] Director Counseling Bureau: Sarath Olivera MD Oxygen saturation in Blood 65.9 % Normal 60.0-85.0 [facility] Comment on above: Performed By: #### B C #### [address] [address] Director Counseling Bureau: Sarath Olivera MD pCO2 45.1 mm Hg Normal 39-55 [facility] Comment on above: Performed By: #### B C #### [address] [address] Director Counseling Bureau: Sarath Olivera MD pH (Bld) 7.205 [pH] Critically low 7.320-7.420 [facility] Comment on above: Performed By: #### B C #### [address] [address] Director Counseling Bureau: Sarath Olivera MD Platelet mean volume (Bld) [Entitic vol] 12.6 fL Normal 8.1-13.5 [facility] Comment on above: Performed By: #### B C #### [address] [place] [address] Director Counseling Bureau: Sarath Olivera MD Platelets (Bld) [#/Vol] 140 10*3/uL Normal 138-453 [facility] Comment on above: Performed By: #### B C #### [address] [address] Director Counseling Bureau: Sarath Olivera MD pO2 41.3 mm Hg Normal 30-50 [facility] Comment on above: Performed By: #### B C #### [address] [address] Director Counseling Bureau: Sarath Olivera MD RBC (Bld) [#/Vol] 3.12 10*6/uL Low 3.95-5.11 [facility] Comment on above: Performed By: #### B C #### [address] [address] Director Counseling Bureau: Sarath Olivera MD WBC (Bld) [#/Vol] 22.6 10*3/uL High 3.5-11.3 [facility] Comment on above: Performed By: #### B C #### [address] [address] Director Counseling Bureau: Sarath Olivera MD Blood Bank BILL FOR SERVICES PERFORMED Normal [facility] Comment on above: Performed By: #### B C #### [address] [address] Director Counseling Bureau: Sarath Olivera MD Urinalysis w/ Microon 2023 Bilirubin, SemiQt,Ur Negative Abnormal NEG [facility] Comment on above: Performed By: #### D AU, UAMIC #### [address] [address] Director Counseling Bureau: Sarath Olivera MD Casts 5 TO 10 Normal 0-2 [facility] Comment on above: Result Comment: HYAL INE Performed By: #### Ashley AU, UAMIC #### [address] [address] Director Counseling Bureau: Sarath Olivera MD Epithelial cells LM Ql (Urine sed) 20 TO 50 Normal 0-5 [facility] Comment on above: Performed By: #### Ashley CELESTE, UAMIC #### [address] [address] Director Counseling Bureau: Sarath Olivera MD Mucus Strands 1+ Normal [facility] Comment on above: Performed By: #### Ashley CELESTE, UAMIC #### [address] [address] Director Counseling Bureau: Sarath Olivera MD Urine RBC's 0 TO 2 Normal 0-2 [facility] Comment on above: Performed By: #### Ashley CELESTE, UAMIC #### [facility] [address] [place] [address] Director Counseling Bureau: Sarath Olivera MD Urine WBC's 20 TO 50 Normal 0-5 [facility] Comment on above: Performed By: #### Ashley AU, UAMIC #### [address] [address] Director Counseling Bureau: Sarath Olivera MD Blood, Urine MODERATE Abnormal NEG [facility] Comment on above: Performed By: #### Ashley AU, UAMIC #### [facility] [address] [place] [address] Director Counseling Bureau: Sarath Olivera MD Clarity (U) Turbid Abnormal CLEAR [facility] Comment on above: Performed By: #### Ashley AU, UAMIC #### [facility] [address] [place] [address] Director Counseling Bureau: Sarath Olivera MD Color (U) Dark Yellow Abnormal YEL [facility] Comment on above: Performed By: #### Ashley AU, UAMIC #### [address] [address] Director Counseling Bureau: Sarath Olivera MD Glucose Ql (U) TRACE Abnormal NEG [facility] Comment on above: Performed By: #### Ashley AU, UAMIC #### [address] [address] Director Counseling Bureau: Sarath Olivera MD Ketones Ql (U) Negative Normal NEG [facility] Comment on above: Performed By: #### Ashley AU, UAMIC #### [address] [address] Director Counseling Bureau: Sarath Olivera MD Leukocyte esterase Test strip Ql (U) TRACE Abnormal NEG [facility] Comment on above: Performed By: #### Ashley CELESTE, UAMIC #### [address] [address] Director Counseling Bureau: Sarath Olivera MD Nitrite,Ur Negative Normal NEG [facility] Comment on above: Performed By: #### Ashley CELESTE, UAMIC #### [address] [address] Director Counseling Bureau: Sarath Olivera MD PH,Ur 5.0 Normal 5.0-8.0 [facility] Comment on above: Performed By: #### Ashley CELESTE, UAMIC #### [address] [address] Director Counseling Bureau: Sarath Olivera MD Protein Ql (U) 2+ mg/dL Abnormal NEG [facility] Comment on above: Performed By: #### Ashley AU, UAMIC #### [address] [address] Director Counseling Bureau: Sarath Olivera MD Spec. [place],Ur 1.022 Normal 1.005-1.030 [facility] Comment on above: Performed By: #### D AU, UAMIC #### [facility] [address] [place] [address] Director Counseling Bureau: Sarath Olivera MD Urobilinogen,Ur Normal Normal 0.0-1.0 [facility] Comment on above: Performed By: #### D AU, UAMIC #### [facility] [address] [place] [address] Director Counseling Bureau: Sarath Olivera MD XR ELBOW LEFT (MIN [...] Deon Webb MD 01/05/24 Final result Normal [facility] XR FEMUR LEFT (MIN 2 VIEWS)o [...] Deon Webb MD 01/05/24 Final result Normal [facility] XR FEMUR RIGHT (MIN 2 VIEWS) [...] Deon Webb MD 01/05/24 Final result Normal [facility] XR FEMUR RIGHT (MIN 2 VIEWS) [...] Deon Webb MD 01/05/24 Final result Normal [facility] XR KNEE RIGHT (1-2 VIEWS)on 01-05-2024 [...] Deon Webb MD 01/05/24 Final result Normal [facility] XR KNEE RIGHT (3 VIEWS)on XR [...] Deon Webb MD 01/05/24 Final result Normal [facility] XR SHOULDER LEFT (MIN 2 VIEW [...] Deon Webb MD 01/05/24 Final result Normal [facility] CBC AUTO DIFFon 12-10-2022 BASO # 0.0 103/ul Normal 0.0-0.1 [facility] Comment on above: Performed By: #### C BC ####[facility] [address] [place] [id number]. Sofiya Lozano Basophils/100 WBC (Bld) 0.4 % Normal 0.2-2.0 [facility] Comment on above: Performed By: #### C BC ####[facility] [address] [place] [id number]. Yilan Lozano EO # 0.0 103/ul Normal 0.0-0.7 [facility] Comment on above: Performed By: #### C BC ####[facility] [address] [place] [id number]. Yilan Lozano Eosinophils/100 WBC (Bld) 0.8 % Critically low 0.9-7.0 [facility] Comment on above: Performed By: #### C BC ####[facility] [address] [place] [address]Dr. Sofiya Lozano Erythrocyte distribution width (RBC) [Ratio] 13.6 % Normal 11.0-15.0 [facility] Comment on above: Performed By: #### C BC ####[facility] [address] [place], [place] [address]Dr. Sofiya Lozano Hematocrit (Bld) [Volume fraction] 41.0 % Normal 36.0-48.0 [facility] Comment on above: Performed By: #### C BC ####[facility] [address] [place], [place] [address]Dr. Sofiya Lozano Hemoglobin (Bld) [Mass/Vol] 13.0 g/dL Normal 12.0-16.0 [facility] Comment on above: Performed By: #### C BC ####[facility] [address] [place], [place] [address]Dr. Sofiya Lozano IG # 0.00 10e3/ul Normal 0.00-0.03 [facility] Comment on above: Performed By: #### C BC ####[facility] [address] [place], [place] [address]Dr. Sofiya Lozano IG % 0.0 % Normal 0.0-0.5 [facility] Comment on above: Performed By: #### C BC ####[facility] [address] [place], [place] [address]Dr. Sofiya Lozano LYMPH # 1.5 103/ul Normal 1.2-3.8 [facility] Comment on above: Performed By: #### C BC ####[facility] [address] [place], [place] [address]Dr. Sofiya Lozano Lymphocytes/100 WBC (Bld) 27.9 % Normal 20.5-60.0 [facility] Comment on above: Performed By: #### C BC ####[facility] [address] [place], [place] [address]Dr. Sofiya Lozano MANUAL DIFF REQ NO Normal [facility] [place] [facility] Comment on above: Performed By: #### C BC ####[facility] [address] [place] [phone]. Sofiya Lozano MCH (RBC) [Entitic mass] 30.0 pg Normal 26.7-34.0 [facility] Comment on above: Performed By: #### C BC ####[facility] [address] [place] [phone]. Sofiya Lozano MCHC (RBC) [Mass/Vol] 31.7 g/dL Normal 29.9-35.2 [facility] Comment on above: Performed By: #### C BC ####[facility] [address] [place] [phone]. Sofiya Blake MCV (RBC) [Entitic vol] 94.5 fL Normal 81.0-99.0 [facility] Comment on above: Performed By: #### C BC ####[facility] [address] [place], [place] [address]Dr. Sofiya Lozano MONO # 0.5 103/ul Normal 0.3-0.8 [facility] Comment on above: Performed By: #### C BC ####[facility] [address] [place], [place] [address]Dr. Landyjonathan Lozano Monocytes/100 WBC (Bld) 8.6 % Normal 1.7-12.0 [facility] Comment on above: Performed By: #### C BC ####[facility] [address] [place], [place] [address]Dr. Landyjonathan Lozano NEUT # 3.3 103/ul Normal 1.4-6.5 [facility] Comment on above: Performed By: #### C BC ####[facility] [address] [place], [place] [address]Dr. Sofiya Lozano Neutrophils/100 WBC (Bld) 62.3 % Normal 43.0-75.0 [facility] Comment on above: Performed By: #### C BC ####[facility] [address] [place], [place] [address]Dr. Sofiya Lozano Platelet mean volume (Bld) [Entitic vol] 11.9 fL Normal 9.5-13.5 [facility] Comment on above: Performed By: #### C BC ####[facility] [address] [place], [place] [address]Np. Sofiya Lozano PLT 166 103/ul Normal 150-450 [facility] Comment on above: Performed By: #### C BC ####[facility] [address] [place], [place] [address]Ab. Sofiya Lozano RBC 4.34 106/ul Normal 4.20-5.40 [facility] Comment on above: Performed By: #### C BC ####[facility] [address] [place], [place] [address]Lp. Sofiya Lozano WBC 5.2 103/ul Normal 4.0-11.0 [facility] Comment on above: Performed By: #### C BC ####[facility] [address] [place], [place] [address]Re. Landyjonathan Blake FREE THYROXINE INDEX T7on FTI 2.50 Normal 1.30-4.50 [facility] Comment on above: Performed By: #### C MP, TSH, LIPID, T7 ####[facility] [address] [place], [place] [address]Hf. Sofiya Blake T3U 32.0 % Normal 30.0-39.0 [facility] Comment on above: Performed By: #### C MP, TSH, LIPID, T7 ####[facility] [address] [place], [place] [address]Yc. Sofiya Blake T4 [Mass/Vol] 7.80 ug/dL Normal 4.80-13.90 [facility] Comment on above: Performed By: #### C MP, TSH, LIPID, T7 ####[facility] [address] [place], [place] [address]Ub. Sofiya Blake GLYCOHEMOGLOBIN A1Con 2022 ADA RECOMMENDATION SEE BELOW Normal [facility] Comment on above: Result Comment: ADA RECOMMENDED LIMIT 4.0 - 6.0 ADA THERAPEUTIC TARGET < 7.0 ACTION SUGGESTED > 7.0 Performed By: #### A 1C #### [facility] [address] [place], [place] [address] Dr. Sofiya Lozano Glucose [Mass/Vol] 117 mg/dL Normal [facility] Comment on above: Performed By: #### A 1C #### [facility] [address] [place] [address] [address] Sofiya Lozano HbA1c (Bld) [Mass fraction] 5.7 % Normal 4.5-6.2 [facility] Comment on above: Performed By: #### A 1C #### [facility] [address] [place] [address] [address] Sofiya Lozano LIPID PROFILEon 12-10-2022 CHOL-HDL RATIO NORM SEE BELOW Normal [facility] Comment on above: Result Comment: 3.3 - 4.4 LOW RISK 4.4 - 7.1 AVERAGE RISK 7.1 - 11.0 MODERATE RISK >11.0 HIGH RISK Performed By: #### C MP, TSH, LIPID, T7 ####[facility] [address] [place] [address]Dr. Sofiya Lozano Cholesterol [Mass/Vol] 155 mg/dL Normal <=200 [facility] Comment on above: Performed By: #### C MP, TSH, LIPID, T7 ####[facility] [address] [place] [address]DrSandi Lozano Cholesterol in HDL [Mass/Vol] 61 mg/dL Critically high 40-60 [facility] Comment on above: Performed By: #### C MP, TSH, LIPID, T7 ####[facility] [address] [place] [id number]. Sofiya Lozano Cholesterol in LDL [Mass/Vol] 75.6 mg/dL Normal [facility] Comment on above: Performed By: #### C MP, TSH, LIPID, T7 ####[facility] [address] [place] [address]DrSandi Lozano Cholesterol.total/Cho lesterol in HDL [Mass ratio] 2.5 {ratio} Normal [facility] Comment on above: Performed By: #### C MP, TSH, LIPID, T7 ####[facility] [address] [place] [id number]. Sofiya Lozano HDL NORMAL > or = 60 mg/dl - LO W CARDIOVASCULAR RISK <40 mg/dl - HIGH CARDIOVASCULAR RISK Normal [facility] Comment on above: Performed By: #### C MP, TSH, LIPID, T7 ####[facility] [address] [place] [address]Dr. Sofiya Lozano LDL CALC NORMAL SEE BELOW Normal [facility] [place] [facility] Comment on above: Result Comment: <100 mg/dl OPTIMAL 100 - 129 mg/dl NEAR OR ABOVE OPTIMAL 130 - 159 mg/dl BORDERLINE HIGH 160 - 189 mg/dl HIGH >190 mg/dl VERY HIGH Performed By: #### C MP, TSH, LIPID, T7 ####[facility] [address] [place] [address]Dr. Sofiya Lozano Triglyceride [Mass/Vol] 92 mg/dL Normal <=150 [facility] Comment on above: Performed By: #### C MP, TSH, LIPID, T7 ####[facility] [address] [place] [address]Dr. Sofiya Lozano VLDL CALC 18.4 mg/dL Normal [facility] Comment on above: Performed By: #### C MP, TSH, LIPID, T7 ####[facility] [address] [place] [address]Dr. Sofiya Lozano PROF 14(COMP METB)on 023 Albumin [Mass/Vol] 3.4 g/dL Normal 3.4-5.0 [facility] Comment on above: Performed By: #### C MP, TSH, LIPID, T7 ####[facility] [address] [place] [address]Dr. Sofiya Lozano Albumin/Globulin [Mass ratio] 1.0 {ratio} Normal [facility] Comment on above: Performed By: #### C MP, TSH, LIPID, T7 ####[facility] [address] [place] [address]Dr. Sofiya Lozano ALP [Catalytic activity/Vol] 85 U/L Normal 46-116 [facility] Comment on above: Performed By: #### C MP, TSH, LIPID, T7 ####[facility] [address] [place] [address]Dr. Sofiya Lozano ALT [Catalytic activity/Vol] 21 U/L Normal 14-59 [facility] Comment on above: Performed By: #### C MP, TSH, LIPID, T7 ####[facility] [address] [place] [address]Dr. Sofiya Lozano Anion gap [Moles/Vol] 9.0 mmol/L Normal [facility] Comment on above: Performed By: #### C MP, TSH, LIPID, T7 ####[facility] [address] [place] [address]Dr. Sofiya Lozano AST [Catalytic activity/Vol] 18 U/L Normal 15-37 [facility] Comment on above: Performed By: #### C MP, TSH, LIPID, T7 ####[facility] [address] [place] [address]Dr. Sofiya Lozano Bilirubin [Mass/Vol] 0.4 mg/dL Normal 0.2-1.0 [facility] Comment on above: Performed By: #### C MP, TSH, LIPID, T7 ####[facility] [address] [place], [place] [address]Dr. Sofiya Lozano Calcium [Mass/Vol] 9.0 mg/dL Normal 8.5-10.1 [facility] Comment on above: Performed By: #### C MP, TSH, LIPID, T7 ####[facility] [address] [place] [address]Dr. Sofiya Lozano Chloride [Moles/Vol] 109 mmol/L Critically high 98-107 [facility] Comment on above: Performed By: #### C MP, TSH, LIPID, T7 ####[facility] [address] [place] [address]Dr. Sofiya Lozano CO2 [Moles/Vol] 31.0 mmol/L Normal 21.0-32.0 [facility] Comment on above: Performed By: #### C MP, TSH, LIPID, T7 ####[facility] [address] [place] [address]Dr. Sofiya Lozano Creatinine [Mass/Vol] 1.10 mg/dL Critically high 0.55-1.02 [facility] Comment on above: Performed By: #### C MP, TSH, LIPID, T7 ####[facility] [address] [place] [address]Dr. Sofiya Lozano EGFR-AF DUTCH 57 mL/min/1.73m2 Critically low >=60 [facility] Comment on above: Performed By: #### C MP, TSH, LIPID, T7 ####[facility] [address] [place] [address]Dr. Sofiya Lozano EGFR-NON AF DUTCH 47 mL/min/1.73m2 Critically low >=60 [facility] Comment on above: Performed By: #### C MP, TSH, LIPID, T7 ####[facility] [address] [address]Dr. Sofiya Lozano Globulin (S) [Mass/Vol] 3.4 g/dL Normal [facility] Comment on above: Performed By: #### C MP, TSH, LIPID, T7 ####[facility] [address] [address]Dr. Sofiya Lozano Glucose [Mass/Vol] 109 mg/dL Critically high 74-106 [facility] Comment on above: Performed By: #### C MP, TSH, LIPID, T7 ####[facility] [address] [address]Dr. Sofiya Lozano Potassium [Moles/Vol] 4.0 mmol/L Normal 3.5-5.1 [facility] Comment on above: Performed By: #### C MP, TSH, LIPID, T7 ####[facility] [address] [address]Dr. Sofiya Lozano Protein [Mass/Vol] 6.8 g/dL Normal 6.4-8.2 [facility] Comment on above: Performed By: #### C MP, TSH, LIPID, T7 ####[facility] [address] [address]Dr. Sofiya Lozano Sodium [Moles/Vol] 145 mmol/L Normal 136-145 [facility] Comment on above: Performed By: #### C MP, TSH, LIPID, T7 ####[facility] [address] [id number]. Sofiya Lozano Urea nitrogen [Mass/Vol] 21.0 mg/dL Critically high 7.0-18.0 [facility] Comment on above: Performed By: #### C MP, TSH, LIPID, T7 ####[facility] [address] [id number]. Sofiya Lozano Urea nitrogen/Creatinine [Mass ratio] 19.1 mg/mg Normal [facility] Comment on above: Performed By: #### C MP, TSH, LIPID, T7 ####[facility] [address] [address]DrSandi Lozano TSHon 12-10-2022 TSH 3.603 uIU/mL Normal 0.358-3.740 [facility] Comment on above: Performed By: #### C MP, TSH, LIPID, T7 ####[facility] [address] [address]Dr. Sofiya Lozano CBC AUTO DIFFon 08-09-2022 BASO # 0.0 103/ul Normal 0.0-0.1 [facility] Comment on above: Performed By: #### C BC #### [facility] [address] [place] [address] Dr. Sofiya Lozano Basophils/100 WBC (Bld) 0.2 % Normal 0.2-2.0 [facility] Comment on above: Performed By: #### C BC #### [facility] [address] [place] [address] Dr. Sofiya Lozano EO # 0.0 103/ul Normal 0.0-0.7 [facility] Comment on above: Performed By: #### C BC #### [facility] [address] [place] [address] Dr. Sofiya Lozano Eosinophils/100 WBC (Bld) 0.8 % Critically low 0.9-7.0 [facility] Comment on above: Performed By: #### C BC #### [facility] [address] [address] [address] Sofiya Lozano Erythrocyte distribution width (RBC) [Ratio] 13.7 % Normal 11.0-15.0 [facility] Comment on above: Performed By: #### C BC #### [facility] [address] [place] [address] Dr. Sofiya Lozano Hematocrit (Bld) [Volume fraction] 39.0 % Normal 36.0-48.0 [facility] Comment on above: Performed By: #### C BC #### [facility] [address] [place] [address] Dr. Sofiya Lozano Hemoglobin (Bld) [Mass/Vol] 13.0 g/dL Normal 12.0-16.0 [facility] Comment on above: Performed By: #### C BC #### [facility] [address] [place] [address] Dr. Sofiya Lozano IG # 0.01 10e3/ul Normal 0.00-0.03 [facility] Comment on above: Performed By: #### C BC #### [facility] [address] [place] [address] Dr. Sofiya Lozano IG % 0.2 % Normal 0.0-0.5 [facility] Comment on above: Performed By: #### C BC #### [facility] [address] [place] [address] Dr. Sofiya Lozano LYMPH # 0.9 103/ul Critically low 1.2-3.8 [facility] Comment on above: Performed By: #### C BC #### [facility] [address] [place] [address] Dr. Sofiya Lozano Lymphocytes/100 WBC (Bld) 19.1 % Critically low 20.5-60.0 [facility] Comment on above: Performed By: #### C BC #### [facility] [address] [place] [address] Dr. Sofiya Lozano MANUAL DIFF REQ NO Normal [facility] Comment on above: Performed By: #### C BC #### [facility] [address] [place] [address] Dr. Sofiya Lozano MCH (RBC) [Entitic mass] 30.6 pg Normal 26.7-34.0 [facility] Comment on above: Performed By: #### C BC #### [facility] [address] [place] [address] Dr. Sofiya Lozano MCHC (RBC) [Mass/Vol] 33.3 g/dL Normal 29.9-35.2 [facility] Comment on above: Performed By: #### C BC #### [facility] [address] [place] [address] Dr. Sofiya Lozano MCV (RBC) [Entitic vol] 91.8 fL Normal 81.0-99.0 [facility] Comment on above: Performed By: #### C BC #### [facility] [address] [place] [address] Dr. Sofiya Lozano MONO # 0.5 103/ul Normal 0.3-0.8 [facility] Comment on above: Performed By: #### C BC #### [facility] [address] [place] [address] Dr. Sofiya Lozano Monocytes/100 WBC (Bld) 10.5 % Normal 1.7-12.0 [facility] Comment on above: Performed By: #### C BC #### [facility] [address] [place] [address] Dr. Sofiya Lozano NEUT # 3.4 103/ul Normal 1.4-6.5 [facility] Comment on above: Performed By: #### C BC #### [facility] [address] [place] [address] Dr. Sofiya Lozano Neutrophils/100 WBC (Bld) 69.2 % Normal 43.0-75.0 [facility] Comment on above: Performed By: #### C BC #### [facility] [address] [place] [address] Dr. Sfoiya Lozano Platelet mean volume (Bld) [Entitic vol] 11.7 fL Normal 9.5-13.5 [facility] Comment on above: Performed By: #### C BC #### [facility] [address] [place] [address] Dr. Sofiya Lozano PLT 158 103/ul Normal 150-450 [facility] Comment on above: Performed By: #### C BC #### [facility] [address] [place] [address] Dr. Sofiya Lozano RBC 4.25 106/ul Normal 4.20-5.40 [facility] Comment on above: Performed By: #### C BC #### [facility] [address] [place] [address] Dr. Sofiya Lozano WBC 4.9 103/ul Normal 4.0-11.0 [facility] Comment on above: Performed By: #### C BC #### [facility] [address] [place] [address] Dr. Sofiya Lozano PROF CHEM 8 (BAS METB)on Anion gap [Moles/Vol] 10.1 mmol/L Normal [facility] Comment on above: Performed By: #### B MP #### [facility] [address] [place] [address] Dr. Sofiya Lozano Calcium [Mass/Vol] 8.5 mg/dL Normal 8.5-10.1 [facility] Comment on above: Performed By: #### B MP #### [facility] [address] [place] [address] Dr. Sofiya Lozano Chloride [Moles/Vol] 102 mmol/L Normal 98-107 [facility] Comment on above: Performed By: #### B MP #### [facility] [address] [place] [address] Dr. Sofiya Lozano CO2 [Moles/Vol] 28.1 mmol/L Normal 21.0-32.0 [facility] Comment on above: Performed By: #### B MP #### [facility] [address] [place] [address] Dr. Sofiya Lozano Creatinine [Mass/Vol] 0.97 mg/dL Normal 0.55-1.02 [facility] Comment on above: Performed By: #### B MP #### [facility] [address] [place] [address] Dr. Sofiya Lozano EGFR-AF DUTCH >60 Normal >=60 [facility] Comment on above: Performed By: #### B MP #### [facility] [address] [address] [address] Sofiya Lozano EGFR-NON AF DUTCH 55 mL/min/1.73m2 Critically low >=60 [facility] Comment on above: Performed By: #### B MP #### [facility] [address] [address] [address] Sofiya Lozano Glucose [Mass/Vol] 128 mg/dL Critically high 74-106 [facility] Comment on above: Performed By: #### B MP #### [facility] [address] [address] [address] Sofiya Lozano Potassium [Moles/Vol] 4.2 mmol/L Normal 3.5-5.1 [facility] Comment on above: Performed By: #### B MP #### [facility] [address] [address] [address] Sofiya Lozano Sodium [Moles/Vol] 136 mmol/L Normal 136-145 [facility] Comment on above: Performed By: #### B MP #### [facility] [address] [address] [address] Sofiya Lozano Urea nitrogen [Mass/Vol] 20.0 mg/dL Critically high 7.0-18.0 [facility] Comment on above: Performed By: #### B MP #### [facility] [address] [address] [address] Sofiya Lozano Urea nitrogen/Creatinine [Mass ratio] 20.6 mg/mg Normal [facility] Comment on above: Performed By: #### B MP #### [facility] [address] [address] [address] Sofiya Lozano PROTIMEon 08-09-2022 INR Coag (PPP) [Relative time] 2.00 {INR} Normal [facility] Comment on above: Performed By: #### P TT, PT #### [facility] [address] [address] [address] Sofiya Lozano INR GUIDELINES SEE BELOW Normal [facility] Comment on above: Result Comment: FIGUEROA RED INR: 2.0 - 3.0 CONDITIONS NOT LISTED BELOW 2.5 - 3.5 FOR PROSTHETIC HEART VALVE REPLACEMENT 2.5 - 3.5 RECURRENT THROMBOSIS Performed By: #### P TT, PT #### [facility] [address] [address] [address] Sofiya Lozano PT Coag (PPP) [Time] 20.6 s Critically high 9.0-11.6 [facility] Comment on above: Performed By: #### P TT, PT #### [facility] [address] [address] [address] Sofiya Lozano PTTon 08-09-2022 aPTT Coag (Bld) [Time] 38.5 s Critically high 22.3-36.2 [facility] Comment on above: Performed By: #### P TT, PT ####[facility] [address] [address]Dr. Sofiya Lozano US VENOUS DOPPLER L Isabel [...] CONCEPCIÓN WOMACK Date: 2022-08-09 15:59 Normal [facility] PROTIMEon 05-13-2022 INR Coag (PPP) [Relative time] 2.76 {INR} Normal [facility] Comment on above: Performed By: #### P T #### [facility] [address] [address] [address] Sofiya Lozano INR GUIDELINES SEE BELOW Normal [facility] Comment on above: Result Comment: FIGUEROA RED INR: 2.0 - 3.0 CONDITIONS NOT LISTED BELOW 2.5 - 3.5 FOR PROSTHETIC HEART VALVE REPLACEMENT 2.5 - 3.5 RECURRENT THROMBOSIS Performed By: #### P T #### [facility] [address] [address] [address] Sofiya Lozano PT Coag (PPP) [Time] 27.9 s Critically high 9.0-11.6 [facility] Comment on above: Performed By: #### P T #### [facility] [address] [address] [address] Sofiya Lozano PROTIMEon 04-15-2022 INR Coag (PPP) [Relative time] 2.18 {INR} Normal [facility] Comment on above: Performed By: #### P T #### [facility] [address] [address] [address] Sofiya Lozano INR GUIDELINES SEE BELOW Normal [facility] Comment on above: Result Comment: FIGUEROA RED INR: 2.0 - 3.0 CONDITIONS NOT LISTED BELOW 2.5 - 3.5 FOR PROSTHETIC HEART VALVE REPLACEMENT 2.5 - 3.5 RECURRENT THROMBOSIS Performed By: #### P T #### [facility] [address] [address] [address] Sofiya Lozano PT Coag (PPP) [Time] 22.4 s Critically high 9.0-11.6 [facility] Comment on above: Performed By: #### P T #### [facility] [address] [address] [address] Sofiya Lozano VIT D 25-OH LABCORPon 2021 Vitamin D, 25-Hydroxy 23.7 ng/mL Critically low 30.0-100.0 [facility] Comment on above: Result Comment: Jailyn min D deficiency has been defined by the [place] of [employer] and an Endocrine Society practice guideline as a level of serum 25-OH vitamin D less than 20 ng/mL (1,2). The Endocrine Society went on to further define vitamin D insufficiency as a level between 21 and 29 ng/mL (2). 1. IOM ([place] of [employer]). 2010. Dietary reference intakes for calcium and D. [place]: The National Academies Press. 2. Negin MATSON, Francisco CUNNINGHAM, Summer FERNANDEZ, et al. Evaluation, treatment, and prevention of vitamin D deficiency: an Endocrine Society clinical practice guideline. JCEM. 2010; 96(7):1911-30. Performed By: #### V ITADLC #### [facility] [address] [address] [address] Sofiya Lozano VITAMIN B12on 03-01-2022 Cobalamin (Vitamin B12) [Mass/Vol] 258.0 pg/mL Normal 193.0-986.0 [facility] Comment on above: Performed By: #### V ITB12 #### [facility] [address] [address] [address] Sofiya Lozano PROTIMEon 12-24-2021 INR Coag (PPP) [Relative time] 1.79 {INR} Normal [facility] Comment on above: Performed By: #### P T #### [facility] [address] [address] [address] Sofyia Lozano INR GUIDELINES SEE BELOW Normal [facility] Comment on above: Result Comment: FIGUEROA RED INR: 2.0 - 3.0 CONDITIONS NOT LISTED BELOW 2.5 - 3.5 FOR PROSTHETIC HEART VALVE REPLACEMENT 2.5 - 3.5 RECURRENT THROMBOSIS Performed By: #### P T #### [facility] [address] [address] [address] Sofiya Lozano PT Coag (PPP) [Time] 18.6 s Critically high 9.0-11.6 [facility] Comment on above: Performed By: #### P T #### [facility] [address] [address] [address] Sofiya Lozano Encounters Encounter Date Encounter Type Care Provider Facility Start: 11-29-2024 End: 11-29-2024 ambulatory STEPHANY HARGROVE [facility] Start: 11-15-2024 End: 11-15-2024 ambulatory MARY GILMORE [facility] Start: 05-17-2024 End: 05-17-2024 ambulatory [facility] Start: 03-15-2024 End: 03-15-2024 ambulatory [facility] Start: 02-17-2024 End: 02-23-2024 Evaluation and management of inpatient [facility] Start: 02-09-2024 End: 02-09-2024 ambulatory FATMATA BELLAMY [facility] Start: 02-02-2024 End: 02-02-2024 ambulatory TAE Hameed [facility] Start: 02-02-2024 End: 02-02-2024 Subsequent hospital visit by physician Fatmata Bellamy APRN - COMPUTER HARDWARE ENGINEER Work Phone: [facility] Start: 01-26-2024 End: 01-26-2024 ambulatory TAE Hameed [facility] Start: 01-23-2024 End: 01-25-2024 ambulatory GER Hameed [facility] Start: 01-23-2024 End: 01-25-2024 Subsequent hospital visit by physician D[facility] Scan Room [facility] Scan Comment on above: SDH (subdural hemato ma) ([facility]) Start: 01-19-2024 End: 01-19-2024 ambulatory TAE Hameed [facility] Start: 01-15-2024 End: 01-15-2024 ambulatory [facility] Start: 01-15-2024 End: 01-15-2024 Subsequent hospital visit by physician Fatmtaa Bellamy APRN - COMPUTER HARDWARE ENGINEER Work Phone: [facility] Start: 01-05-2024 End: 01-13-2024 Evaluation and management of inpatient FATMATA BELLAMY [facility] Start: 07-03-2023 End: 07-03-2023 ambulatory MOISES SANCHEZ [facility] Start: 12-14-2022 Encounter for genera l adult medical examination without abnormal findings DR MOISES SANCHEZ . [facility] Start: 12-10-2022 End: 12-11-[address] MOISES [...] vaccination Flu vaccine (# 1) ANTOINE DARYN [facility] Start: 02-19-2024 End: 02-19-2024 Patient encounter procedure 02/19/2024 10:30 AM EDT Office Visit [facility] [address] [place] [address] [place] [address] Celina Diaz, DO [address] [facility] [address] [place] [address] Follow up with Sylvia or Adelina in two weeks with CTH prior to appointment for SDH [facility] Comment on above: Follow up with Sylvia or Adelina in two weeks with CTH prior to appointment for SDH Start: 02-09-2024 End: 02-09-2024 Patient encounter procedure 02/09/2024 11:30 AM EDT Office Visit [facility] [address] [place] [address] [place] [address] Austin Zee, DO [address] [place], [place] [id number] LEFT PROX HUMERUS/ RIGHT TIB COMING FORM [facility]. R/S w/Deisy due to Covid [phone] [facility] Comment on above: LEFT PROX HUMERUS/ R IGHT TIB COMING FORM [facility]. R/S w/Deisy due to Covid [phone] Start: 02-02-2024 End: 02-02-2024 Patient encounter procedure 02/02/2024 10:15 AM EDT Office Visit [facility] [address] [facility] [address] [place] [phone] Austin Zee, DO [address] [facility] [address] [place] [address] LEFT PROX HUMERUS/ RIGHT TIB COMING FORM [facility] Comment on above: LEFT PROX HUMERUS/ R IGHT TIB COMING FORM [facility] Start: 01-21-2024 End: 01-21-2024 Patient encounter procedure 01/21/2024 3:15 PM EDT Office Visit [facility] [address] [facility] [address] [place] [phone] Austin eZe, DO [address] [facility] [address] [place] [address] R fem IMN, closed tx left proximal humerus [facility] Comment on above: R fem IMN, closed tx left proximal humerus Start: 01-21-2024 End: 01-21-2024 Patient encounter procedure 01/21/2024 11:30 AM EDT Office Visit [facility] [address] [facility] [address], [address] [place] [phone] Sylvia Malone W, EMPLOYEE BENEFITS ATTORNEY - COMPUTER HARDWARE ENGINEER [address] [facility] [address] [place] [employer], [place] [id number] Follow up with Sylvia or Adelina in two weeks with CTH prior to appointment for SDH [facility] Comment on above: Follow up with Sylvia or Adelina in two weeks with CTH prior to appointment for SDH Start: 08-04-2023 Annual Wellness Visi t (Medicare Advantage) Annual Wellness Visit (Medicare Advantage) [facility] Start: 04-04-2023 COVID-19 Vaccine ( season) COVID-19 Vaccine ( season) [facility] Start: 1999 Respiratory Syncytia l Virus (RSV) or age 60 yrs+ (1 - 1-dose 60+ series) Respiratory Syncytial Virus (RSV) or age 60 yrs+ (1 - 1-dose 60+ series) [facility] Start: 1994 Screening for osteoporosis DEXA (modify frequency per FRAX score) [facility] Start: 1958 DTaP/Tdap/Td vaccine (1 - Tdap) DTaP/Tdap/Td vaccine (1 - Tdap) [facility] Start: 1951 Depression Screen Depression Screen [facility] End: 01-23-2024 CT Head WO contrast [facility] Work Phone: Comment on above: 1 Occurrences starti ng 01/23/2024 until 01/23/2024 Payers Date Payer Category Payer Self-pay [id number] 1960 Unknown [id number] 1940 Unknown [id number] 2.16.84 [id number] 1939 Unknown [id number] 2.16.84 0.1.056180.3.579.2.593 1939 Unknown [id number] 2.16.84 0.1.046813.3.579.2.593 1939 Unknown [id number] 2.16.84 0.1.467058.3.579.2.593 1939 Unknown [id number] 2.16.84 0.1.991978.3.579.2.593 1939 Unknown [id number] 2.16.84 0.1.060155.3.579.2.593 1939 Unknown [id number] 2.16.84 0.1.837568.3.579.2.593 1939 Unknown [id number] 2.16.8 40.1.194420.3.579.2.173 1939 Unknown [id number] 2.16.8 40.1.758215.3.579.2.173 1939 Unknown [id number] 2.16.8 40.1.614078.3.579.2.173 1939 Unknown [id number] 2.16.8 40.1.301776.3.579.2.173 1939 Unknown [id number] 2.16.8 40.1.142672.3.579.2.173 1939 Unknown [id number] 2.16. 840.1.062732.3.579.2.175 1939 Unknown [id number] 2.16. 840.1.253439.3.579.2.175 1939 Unknown [id number] 2.16. 840.1.211323.3.579.2.175 1939 Unknown [id number] 2.16. 840.1.974512.3.579.2.175 1939 Unknown [id number] 2.16. 840.1.184569.3.579.2.175 1939 Unknown [id number] 2.16. 840.1.841123.3.579.2.175 1939 Unknown [id number] 2.16. 840.1.610902.3.579.2.175 Social History Date Type Detail Facility Start: 01-10-2024 Tobacco smoking stat [facility] Never smoked tobacco [facility] Start: 01-10-2024 Tobacco use and exposure Smokeless tobacco non-user [facility] Start: 01-05-2024 End: 01-10-2024 History of Social function [facility] Start: 01-05-2024 End: 01-10-2024 Tobacco use panel [facility] Physical abuse Denies [facility] Start: 1940 Sex Assigned At Not on file B ON [facility] Medical Equipment Procedure Code Equipment Code Equipment Origin al Text Equipment Identifier Dates Nail Im Fem 12x4 20 Mm Rt Greater Trochanteric Strl T2 Alpha - [id number], [id number] FDA Start: 01-06-2024 Screw Bne L90mm Dia6.5mm Canc Fem Ti Lag Rory Saad Partially - [id number] ()[id number] [id number], [id number] FDA Start: 01-06-2024 Screw Bne L90mm Dia6.5mm Canc Fem Ti Lag Rory Saad Partially - [id number] ()[id number] [id number], [id number] FDA Start: 01-06-[address] 5x37 5mm - [id number] ()[id number] [id number] 6, [id number] FDA Start: 01-06-2024 Screw Bne L50mm Dia5mm Saad For T2 Alpha Nailing Sys - [id number] ()[id number] [id number], [id number] FDA Start: 01-06-2024 Screw Bne Lck 5x 45 Mm Adv Strl Alpha - [id number] Start: 01-06-2024 Clinical Note 03-01-2022 Note [...] by: BERTO ALEJO Date: 2022-03-01 17:38 [facility] Evaluation note Note Date & Type Note Facility Evaluation note Diagnosis SDH (subdural hematoma) (HCC) Subdural hemorrhage documented in this encounter [facility] Summary Purpose Family History No Family [...] Procedures CT HEAD WO CONTRAST Ger Guzman, EMPLOYEE BENEFITS ATTORNEY - COMPUTER HARDWARE ENGINEER [address] [address] Referral ID Status Reason Start Date Expiration Date Visits Re quested Visits Authorized [id number] Closed 01/20/2024 04/18/2024 1 1 Additional Source Comments INFORMATION SOURCE (unrecogn ized section and content) DATE CREATED AUTHOR 12/15/2022 [facility] DATE CREATED AUTHOR AUTHOR'S ORGANIZ ATION 02/03/2024 [facility] DATE CREATED AUTHOR AUTHOR'S ORGANIZ ATION 12/02/2024 [facility] Care Teams (unrecognized sec tion and content) Senior Sales Compensation Analyst Relationship Specialty Start Date End Date Fatmata Bellamy APRN - COMPUTER HARDWARE ENGINEER [address] [place] [id number] PCP - General 01/06/24 Senior Sales Compensation Analyst Relationship Specialty Start Date End Date Fatmata BellamyKARISSA - MARLIN [address] [place] [address] [place] [address] PCP - General 01/06/24 Senior Sales Compensation Analyst Relationship Specialty Start Date End Date Fatmata BellamyKARISSA - COMPUTER HARDWARE ENGINEER [address] [place] [address] PCP - General 01/06/24 Reason for Visit (unrecogniz ed section and content) Specialty Diagnoses / Procedures Referred By Contac t Referred To Contact Radiology Diagnoses SDH (subdural hematoma) (HCC) Procedures CT HEAD WO CONTRAST Ger Guzman, KARISSA - MARLIN [address] [facility] [address] [place] [address] Referral ID Status Reason Start Date Expiration Date Visits Re quested Visits Authorized [id number] Closed 01/20/2024 04/18/2024 1 1 FOR RECORDS [...] BE BASED ON THE PRIMARY CLINICAL RECORDS. [facility] [employer] provides no warranty or guarantee of the accuracy or completeness of information in this document.
--- NOTE | 2024-12-22 08:32 | ED.GENADUL1 ---
HPI HPI - General Adult General Chief complaint: Extremity Injury, Lower Stated complaint: LEG/BACK PAIN Time Seen by Provider: 12/22/24 07:39 Source: patient and family Mode of arrival: Wheelchair Limitations: no limitations History of Present Illness HPI narrative: This 84-year-old female presents to the ED with chief complaint of severe sciatic-like distribution pain of the right leg. She had a fall 11 months ago resulting in a subdural hematoma and a fracture of the midshaft of the right femur for which she underwent open reduction internal fixation. A few months after that she started noticing right gluteal and right hip and thigh pain. She has been treated for this off-and-on and most recently was seen 8 days ago in this ED. She has been placed on steroids, gabapentin and diclofenac. 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 Patient states they have an appointment scheduled with an orthopedist in [place] in a month from now but will try to expedite it and they have made another appointment with an orthopedist across the street which is in 2 weeks from now. In the meantime her pain is not significantly improved. She states she took 3 of the 75 mg tablets last night which helped her pain. Based on her drug list I feel she is referring to diclofenac. Patient has chronic atrial fibrillation and takes Coumadin and metoprolol. Related Data Home Medications ?Medication ?Instructions ?Recorded ?Confirmed simvastatin 10 mg tablet 10 mg PO DAILY 01/05/24 12/22/24 warfarin 2.5 mg tablet 2.5 mg PO DAILY 01/05/24 12/22/24 alendronate 70 mg tablet 70 mg PO .weekly 12/13/24 12/22/24 diclofenac sodium 75 mg 75 mg PO BID PRN pain 12/13/24 12/22/24 tablet,delayed release diltiazem HCl 60 mg tablet 60 mg PO DAILY 12/13/24 12/22/24 metoprolol tartrate 25 mg tablet 12.5 mg PO BID 12/13/24 12/22/24 ascorbic acid (vitamin C) 500 mg 500 mg PO DAILY 12/22/24 12/22/24 tablet gabapentin 100 mg capsule 100 mg PO .QHS 12/22/24 12/22/24 Previous Rx's ?Medication ?Instructions ?Recorded hydrocodone 5 mg-acetaminophen 325 1 tab PO TID PRN pain #15 tabs 12/22/24 mg tablet Allergies Allergy/AdvReac Type Severity Reaction Status Date / Time Sulfa (Sulfonamide Allergy Unknown Verified 12/22/24 07:42 Antibiotics) Opioid HPI Opioid Management Most Recent Opioid Data: Last Pain Scale 10 Today, 08:02 Review of Systems ROS Status of ROS 10 or more systems reviewed and unremarkable except as noted in history and below PFSH PFS Social History Little interest or pleasure in doing things: not at all Feeling down, depressed, or hopeless: not at all Exam Narrative Exam Narrative: Patient is sitting on a chair when I walk into and appears uncomfortable. She does not wish to lay on the cart stating that the seated position is less painful for her. Hemodynamics are stable. She is mentating normally. HEENT exam is normal to inspection. Neck is supple. Lung sounds are clear to auscultation bilaterally with good air entry. Heart has irregular rhythm with controlled rate abdomen soft, protuberant, nontender. She localizes tenderness in the right lower paralumbar soft tissue. Due to obesity and her legs being quite heavy she does not tolerate any attempted straight leg raising. Constitutional Vital Signs, click to edit/add: Last Vital Signs Temp 97.9 F 12/22/24 07:42 Pulse 97 H 12/22/24 07:42 Resp 22 H 12/22/24 07:42 BP 119/75 12/22/24 07:42 Pulse Ox 97 12/22/24 07:42 O2 Del Method Room Air 12/22/24 07:42 Course Vital Signs Vital signs: Vital Signs Temperature 97.9 F 12/22/24 07:42 Pulse Rate 97 H 12/22/24 07:42 Respiratory Rate 22 H 12/22/24 07:42 Blood Pressure 119/75 12/22/24 07:42 Pulse Oximetry 97 12/22/24 07:42 Oxygen Delivery Method Room Air 12/22/24 07:42 Temperature 97.9 F 12/22/24 07:42 Pulse Rate 97 H 12/22/24 07:42 Respiratory Rate 22 H 12/22/24 07:42 Blood Pressure 119/75 12/22/24 07:42 Pulse Oximetry 97 12/22/24 07:42 Oxygen Delivery Method Room Air 12/22/24 07:42 Medical Decision Making MDM Narrative Medical decision making narrative: Patient presents with worsening of her known problem. She was last seen for this problem in the ED on December 14. The following day she had an MRI of the lumbar spine that had been ordered earlier. I have reviewed the results of that and discussed it with her and her . I feel that she will benefit from surgery. No short-term solutions are available at this time. Also she will need further workup for the mass on the right iliopsoas. Patient was concerned that she was not getting any relief at home and I offered her a hospital stay. She was seen by Dr. Rayo who came down to the ED but then declined hospital admission when she found out she would be transferred to a rehab facility. She reports good relief in the ED with IV morphine and I am placing her on a short course of [place]. Her INR was elevated at 4.15. She is to skip 1 dose of Coumadin. I have also advised that with her being on a blood thinner such as Coumadin she should not take any nonsteroidals and is to stop taking diclofenac. Follow-up is advised with her PCP and she is to return anytime for worsening symptoms. Lab Data Labs: Lab Results 12/22/24 Range/Units 08:40 WBC 8.2 (4.0-11.0) 10^3/uL RBC 4.12 L (4.20-5.40) 10^6/uL Hgb 12.4 (12.0-16.0) g/dL Hct 38.4 (36.0-48.0) % MCV 93.2 (81.0-99.0) fL MCH 30.1 (26.7-34.0) pg MCHC 32.3 (29.9-35.2) g/dL RDW 16.9 H (11.0-15.0) % Plt Count 208 (150-450) 10^3/uL MPV 11.9 (9.5-13.5) fL Neut % (Auto) 81.0 H (43.0-75.0) % Lymph % (Auto) 9.3 L (20.5-60.0) % [place] % (Auto) 9.1 (1.7-12.0) % Eos % (Auto) 0.2 L (0.9-7.0) % Baso % (Auto) 0.2 (0.2-2.0) % Neut # (Auto) 6.6 H (1.4-6.5) 10^3/uL Lymph # (Auto) 0.8 L (1.2-3.8) 10^3/uL [place]arro # (Auto) 0.7 (0.3-0.8) 10^3/uL Eos # (Auto) 0.0 (0.0-0.7) 10^3/uL Baso # (Auto) 0.0 (0.0-0.1) 10^3/uL Abs Immat Gran (auto) 0.02 (0.00-0.03) 10^3/uL Imm/Tot Granulo (auto) 0.2 (0.0-0.5) % PT 38.2 H (9.0-11.6) sec INR 4.15 H* Sodium 144 (136-145) mmol/L Potassium 4.3 (3.5-5.1) mmol/L Chloride 106 (98-107) mmol/L Carbon Dioxide 28.4 (21.0-32.0) mmol/L Anion Gap 13.9 BUN 27.0 H (7.0-18.0) mg/dL Creatinine 1.04 H (0.55-1.02) mg/dL Est GFR ( Amer) >60 (>=60 mL/min/1.73m^2) Est GFR (Non-Af Amer) 50 L (>=60 mL/min/1.73m^2) BUN/Creatinine Ratio 26.0 Glucose 163 H (74-106) mg/dL Calcium 8.7 (8.5-10.1) mg/dL Total Bilirubin 0.9 (0.2-1.0) mg/dL AST 18 (15-37) U/L ALT 32 (14-59) U/L Alkaline Phosphatase 77 (46-116) U/L Total Protein 5.7 L (6.4-8.2) g/dL Albumin 2.8 L (3.4-5.0) g/dL Globulin 2.9 g/dL Albumin/Globulin Ratio 1.0 Discharge Plan Discharge Chief Complaint: Extremity Injury, Lower Clinical Impression: Right lumbar radiculopathy, Elevated INR Patient Disposition: Home, Self-Care Time of Disposition Decision: 11:07 Condition: Fair Mode of Transportation: Private Vehicle Prescriptions / Home Meds: New hydrocodone-acetaminophen 5-325 mg tablet 1 tab PO TID PRN (Reason: pain) Qty: 15 0RF No Action alendronate 70 mg tablet 70 mg PO .weekly Rx Instructions: mondays diclofenac sodium 75 mg tablet,delayed release (DR/EC) 75 mg PO BID PRN (Reason: pain) diltiazem HCl 60 mg tablet 60 mg PO DAILY metoprolol tartrate 25 mg tablet 12.5 mg PO BID gabapentin 100 mg capsule 100 mg PO .QHS ascorbic acid (vitamin C) 500 mg tablet 500 mg PO DAILY simvastatin 10 mg tablet 10 mg PO DAILY warfarin 2.5 mg tablet 2.5 mg PO DAILY Print Language: Icelandic Instructions: Lumbar Radiculopathy (ED), Elevated INR (ED) Additional Instructions: Stop taking diclofenac because it interacts unfavorably with Coumadin. Skip today's dose of Coumadin. Get your INR repeated in 2 or 3 days. Take an [id number] stool softener to prevent constipation caused by the new pain medication you are being prescribed today. Return anytime for worsening symptoms. Referrals: LIGIA BELLAMY [Primary Care Provider, Family Practice] - 1 week Discharge Date/Time: 12/22/24 11:34
[2024-12-22 08:49] LABS: Basophils Percent Auto 0.2 % (0.2-2.0); Eosinophils Percent Auto 0.2 % (0.9-7.0); Hematocrit 38.4 % (36.0-48.0); Hemoglobin 12.4 g/dL (12.0-16.0); Immature Granulocytes Abs Auto 0.02 10^3/uL (0.00-0.03); Immature Granulocytes Pct Auto 0.2 % (0.0-0.5); Lymphocytes Absolute Auto 0.8 10^3/uL (1.2-3.8); Lymphocytes Percent Auto 9.3 % (20.5-60.0); Mean Corpuscular HGB Conc 32.3 g/dL (29.9-35.2); Mean Corpuscular Hemoglobin 30.1 pg (26.7-34.0); Mean Corpuscular Volume 93.2 fL (81.0-99.0); Mean Platelet Volume 11.9 fL (9.5-13.5); Monocytes Absolute Auto 0.7 10^3/uL (0.3-0.8); Monocytes Percent Auto 9.1 % (1.7-12.0); Neutrophils Absolute Auto 6.6 10^3/uL (1.4-6.5); Platelet Count 208 10^3/uL (150-450); Red Blood Count 4.12 10^6/uL (4.20-5.40); Red Cell Distribution Width 16.9 % (11.0-15.0); White Blood Count 8.2 10^3/uL (4.0-11.0)
[2024-12-22] MEDS: 0.9 % SODIUM CHLORIDE 1,000 ML 125 ML IV (08:51)
[2024-12-22] MEDS: ONDANSETRON PF 4 MG/2 ML VIAL IV (08:51)
[2024-12-22] MEDS: MORPHINE SULFATE 2 MG/ML SYRINGE IV (08:53)
[2024-12-22 09:04] LABS: Prothrombin Time 38.2 sec (9.0-11.6)
[2024-12-22 09:05] LABS: Alanine Aminotransferase 32 U/L (14-59); Albumin Level 2.8 g/dL (3.4-5.0); Alkaline Phosphatase 77 U/L (46-116); Anion Gap 13.9; Aspartate Amino Transferase 18 U/L (15-37); Bilirubin Total 0.9 mg/dL (0.2-1.0); Calcium 8.7 mg/dL (8.5-10.1); Carbon Dioxide 28.4 mmol/L (21.0-32.0); Chloride 106 mmol/L (98-107); Estimated GFR (African America >60 (>=60 mL/min/1.73m^2); Estimated GFR (Non-African Ame 50 (>=60 mL/min/1.73m^2); Globulin 2.9 g/dL; Glucose 163 mg/dL (74-106); Potassium 4.3 mmol/L (3.5-5.1); Sodium 144 mmol/L (136-145); Total Protein 5.7 g/dL (6.4-8.2)
[2024-12-22 09:08] LABS: INR 4.15
== END 2024-12-22 11:34 | disposition home or self-care (01) ==
PROVIDERS: Emergency Provider Emergency Medicine; PCP Nurse Practitioner Family
DX: M51.16 Intervertebral disc disorders with radiculopathy, lumbar region (principal); I48.20 Chronic atrial fibrillation, unspecified; Z79.01 Long term (current) use of anticoagulants; Z79.899 Other long term (current) drug therapy; R79.1 Abnormal coagulation profile; R22.41 Localized swelling, mass and lump, right lower limb
CPT/HCPCS: 36415; 80053; 85025; 85610; 96374; 96375; 99284; J2270; J2405

== ENCOUNTER 2024-12-26 02:18 | Inpatient (IN) | payer MEDICARE, SELFPAY ==
--- OUTSIDE RECORDS SUMMARY | 2024-11-29 14:50 | XMS_ITS ---
Author Name Auto Generated Organization [facility] Care Team Providers Care Head Up Operator Name Role Phone LIGIA BELLAMY S Primary Care Unavailable AUSTIN ZEE Referring Unavailable STEPHANY HARGROVE Referring Unavailable JOSESITO, LIGIA S Primary Care Unavailable JOSESITO, LIGIA S Primary Care Unavailable BECKY FOLEY Admitting Unavailable BECKY FOLEY Consulting Unavailable BECKY FOLEY Attending Unavailable GENNY NICOLE Consulting Unavailable AUSTIN ZEE Consulting Unavailable CELINA PATRICK Consulting Unavailable ELENO RODRIGUEZ Consulting UnavailAUSTIN Pacheco Attending Unavailable JOSESITO, LIGIA S Primary Care Unavailable ADELINE BURLESON Consulting Unavailable AUSTIN ZEE Admitting Unavailable EDITH GOMEZ Consulting Unavailable MARY GILMORE Referring Unavailable JOSESITO, LIGIA S Primary Care Unavailable AUSTIN ZEE Referring Unavailable JOSESITO, LIGIA S Primary Care Unavailable AUSTIN ZEE Referring Unavailable JOSESITO, LIGIA S Primary Care Unavailable MELINDATAE Referring Unavailable JOSESITO, LIGIA S Primary Care Unavailable GER GUZMAN Referring Unavailable JOSESITO, LIGIA S Primary Care Unavailable MELINDATAE BUSTOS Referring Unavailable JOSESITO, LIGIA S Primary Care Unavailable JOSESITO, LIGIA S Primary Care Unavailable MELINDATAE BUSTOS Referring Unavailable JOSESITO, LIGIA S Primary Care Unavailable MELINDATAE BUSTOS Referring Unavailable PROBLEMS DATE TYPE CONDITION / CODE ATTENDING STATUS [facility] 11/29/2024 Unknown Low back pain, unspecified / M54.50(ICD-10) [facility] 01/06/2024 Unknown Unspecified frac ture of shaft of right femur, subsequent encounter for closed fracture with routine healing / S72.301D(ICD-10) [facility] 01/06/2024 Unknown Unspecified frac ture of upper end of left humerus, subsequent encounter for fracture with routine healing / S42.202D(ICD-10) [facility] 02/17/2024 Unknown Other acute postprocedural pain / G89.18(ICD-10) AUSTIN ZEE [facility] 02/09/2024 Unknown Pain, unspecifie d / R52(ICD-10) [facility] 02/02/2024 Admitting diagnosis Unspecified fracture of right femur, initial encounter for closed fracture / S72.91XA(ICD-10) [facility] 01/26/2024 Admitting diagnosis Unspecified fracture of shaft of humerus, unspecified arm, initial encounter for closed fracture / S42.309A(ICD-10) [facility] 01/15/2024 Admitting diagnosis Anemia, unspecified / D64.9(ICD-10) [facility] 01/06/2024 Unknown Other displaced fracture of upper end of left humerus, initial encounter for closed fracture / S42.292A(ICD-10) BECKY FOLEY [facility] 01/06/2024 Unknown Sepsis, unspecif ied organism / A41.9(ICD-10) BECKY FOLEY [facility] 01/05/2024 Unknown Traumatic subdur al hemorrhage with loss of consciousness status unknown, initial encounter / S06.5XAA(ICD-10) BECKY FOLEY [facility] 01/05/2024 Unknown Acute cystitis without hematuria / N30.00(ICD-10) BECKY FOLEY [facility] 01/05/2024 Unknown Fracture of unspecified part of neck of right femur, initial encounter for closed fracture / S72.001A(ICD-10) BECKY FOLEY [facility] PROCEDURES No Procedure Records Found RESULTS XR SHOULDER LEFT (MIN 2 VIEWS) Observed: 11/22/2024 8:35 AM Status: P Source: [facility] History: 83 y.o. year old fe male status post intramedullary fixation Right femur Comparison: 05/17/2024 Findings: 2 views of the Right femur (AP/lateral) in a skeletally mature patient showing redemonstration of orthopedic hardware in the form of intramedullary nail to Right femur. No signs of hardware failure or loosening. Unchanged alignment. Interval callus formation when compared to prior films. No new acute osseous abnormalities. No radiopaque foreign bodies. Impression: Stable hardware Right femur History: 83-year-old female status post left reverse shoulder arthroplasty Comparison: 05/17/2024 Findings: 3 views of left shoulder (AP/Grashey/scapular Y) in a skeletally mature individual showing redemonstration of the left shoulder arthroplasty without any acute complication. No subluxations or dislocations visualized. Multiple bony ossicles consistent with proximal humerus fracture once again visualized, but no change in alignment. Impression: Stable arthroplasty left proximal humerus Interpreted by: Mary Gilmore PA Preliminary result XR FEMUR RIGHT (MIN 2 VIEWS) Observed: 0 11/22/2024 8:35 AM Status: P Source: [facility] History: 83 y.o. year old fe male status post intramedullary fixation Right femur Comparison: 05/17/2024 Findings: 2 views of the Right femur (AP/lateral) in a skeletally mature patient showing redemonstration of orthopedic hardware in the form of intramedullary nail to Right femur. No signs of hardware failure or loosening. Unchanged alignment. Interval callus formation when compared to prior films. No new acute osseous abnormalities. No radiopaque foreign bodies. Impression: Stable hardware Right femur History: 83-year-old female status post left reverse shoulder arthroplasty Comparison: 05/17/2024 Findings: 3 views of left shoulder (AP/Grashey/scapular Y) in a skeletally mature individual showing redemonstration of the left shoulder arthroplasty without any acute complication. No subluxations or dislocations visualized. Multiple bony ossicles consistent with proximal humerus fracture once again visualized, but no change in alignment. Impression: Stable arthroplasty left proximal humerus Interpreted by: Mary Gilmore PA Preliminary result XR SHOULDER LEFT (MIN 2 VIEWS) Observed: 06/02/2024 10:08 AM Status: F Source: [facility] History: 83-year-old female status post left reverse [...] by: Austin Zee DO 06/02/24 Final result XR FEMUR RIGHT (MIN 2 VIEWS) Observed: 1 10:08 AM Status: F Source: [facility] History: 83 y.o. year old fe male status post intramedullary fixation Right femur Comparison: [...] by: Austin Zee DO 06/02/24 Final result XR SHOULDER LEFT (MIN 2 VIEWS) Observed: 03/17/2024 10:26 AM Status: F Source: [facility] History: 83-year-old female status post left shoulder [...] Austin Zee DO Signed by: Austin Zee, 03/17/24 Final result XR FEMUR RIGHT (MIN 2 VIEWS) Observed: 0 03/17/2024 10:26 AM Status: F Source: [facility] History: 83-year-old female status post fixation right [...] by: Austin Zee DO 03/17/24 Final result XR SHOULDER LEFT (MIN 2 VIEWS) Observed: 02/25/2024 10:48 AM Status: F Source: [facility] History: 83yo female with left proximal humerus and right femur fracture Comparison: 01/06/24 Findings: 3 radiographic views of the left shoulder (AP, scapular y, grashey) re- demonstrating proximal humerus fracture in unchanged alignment. Interval healing appreciated when compared to prior serial imaging. No new fracture or dislocation. No soft tissue abnormalities. Viewable lung tissue is unremarkable. Impression: Left proximal humerus fracture with routine healing. Interpreted by: Austin Zee DO Signed by: Austin Zee DO 02/25/24 Final result XR FEMUR RIGHT (MIN 2 VIEWS) Observed: 0 02/25/2024 10:47 AM Status: F Source: [facility] History: 83yo female with left proximal humerus and right femur fracture Comparison: 01/06/24 Findings: 2 radiographic views of the right femur (AP, lateral) re-demonstrating orthopedic hardware in the form of an intramedullary nail with interlocking screws. No evidence of hardware failure. Interval healing appreciated compared to prior serial imaging. Impression: Right femoral shaft fracture s/p IMN with routine healing Interpreted by: Austin Zee DO Signed by: Austin Zee, 02/25/24 Final result CBC Collected: 6:39 AM Status: F Source: [facility] TYPE CODE TESTS RESULT OUT OF RANGE REFERENCE UNITS LAB WBC(LOINC) WBC Count 5.8 3.5-11.3 k/uL LAB RBC(LOINC) RBC Count 3.50 Low 3.95-5.11 m/uL LAB HGB(LOINC) Hemoglobin 10.5 Low 11.9-15.1 g/dL LAB HCT(LOINC) Hematocrit 35.7 Low 36.3-47.1 % LAB MCV(LOINC) MCV 102.0 82.6-102.9 fL LAB MCH(LOINC) MCH 30.0 25.2-33.5 pg LAB MCHC(LOINC) MCHC 29.4 28.4-34.8 g/dL LAB RDW(LOINC) RDW 17.4 High 11.8-14.4 % LAB PLT(LOINC) Platelet Count 181 138-453 k/uL LAB MPVX(LOINC) MPV 11.8 8.1-13.5 fL LAB NRBCS(LOINC) NRBC Automated 0.0 0.0 per 100 WBC Performed By: #### BMPX, CBC , PT #### [facility] [facility] [place] [address] Cnc Maintenance Technician: Sarath Olivera MD PT Collected: 02/23/2024 6:39 AM Status: F Source: [facility] TYPE CODE TESTS RESULT OUT OF RANGE REFERENCE UNITS LAB PTR(LOINC) Prothrombin Time 18.8 High 11.7-14.9 se c LAB INR(LOINC) INR 1.6 Result Comment: Therapeutic Range: Moderate Anticoagulant Intensity: INR = 2.0-3.0 High Anticoagulant Intensity: INR = 2.5-3.5 Performed By: #### BMPX, CBC , PT #### [facility] [facility] [address] [place] [address] Cnc Maintenance Technician: Sarath Olivera MD BASIC METAB W/RFX MG Collected: 02/23/2024 6:39 AM S tatus: F Source: [facility] TYPE CODE TESTS RESULT OUT OF RANGE REFERENCE UNITS LAB NA(LOINC) NA (Sodium) 144 136-145 mmol/L LAB K(LOINC) K (Potassium) 3.9 3.7-5.3 mmol/L LAB CL(LOINC) Chloride 108 High 98-107 mmol/L LAB HCO(LOINC) CO2 30 20-31 mmol/L LAB GAP(LOINC) Anion Gap 6 Low 9-16 mmol/L LAB GLU(LOINC) Glucose 91 74-99 mg/dL LAB BUN(LOINC) BUN (Urea N) 20 8-23 mg/dL LAB CRE(LOINC) Creatinine 0.7 0.50-0.90 mg/dL LAB EGFR(LOINC) eGFR 86 >60 mL/min/1. 73m2 Result Comment: These results are not intended [...] following therapy that affects renal tubular secretion. LAB CA(LOINC) Calcium 8.6 8.6-10.4 mg/dL Performed By: #### BMPX, CBC , PT #### [facility] [facility] [address] [place] [address] Cnc Maintenance Technician: Sarath Olivera MD PT Collected: 02/22/2024 1:58 PM Status: F Source: [facility] TYPE CODE TESTS RESULT OUT OF RANGE REFERENCE UNITS LAB PTR(LOINC) Prothrombin Time 18.6 High 11.7-14.9 se c LAB INR(LOINC) INR 1.6 Result Comment: Therapeutic Range: Moderate Anticoagulant Intensity: INR = 2.0-3.0 High Anticoagulant Intensity: INR = 2.5-3.5 Performed By: #### PT #### [address] [id number] Cnc Maintenance Technician: Sarath Olivera MD CBC Collected: 7:36 AM Status: F Source: [facility] TYPE CODE TESTS RESULT OUT OF RANGE REFERENCE UNITS LAB WBC(LOINC) WBC Count 8.0 3.5-11.3 k/uL LAB RBC(LOINC) RBC Count 3.24 Low 3.95-5.11 m/uL LAB HGB(LOINC) Hemoglobin 9.9 Low 11.9-15.1 g/dL LAB HCT(LOINC) Hematocrit 32.6 Low 36.3-47.1 % LAB MCV(LOINC) MCV 100.6 82.6-102.9 fL LAB MCH(LOINC) MCH 30.6 25.2-33.5 pg LAB MCHC(LOINC) MCHC 30.4 28.4-34.8 g/dL LAB RDW(LOINC) RDW 17.2 High 11.8-14.4 % LAB PLT(LOINC) Platelet Count 192 138-453 k/uL LAB MPVX(LOINC) MPV 12.0 8.1-13.5 fL LAB NRBCS(LOINC) NRBC Automated 0.0 0.0 per 100 WBC Performed By: #### CBC, BMPX #### [address] [id number] Cnc Maintenance Technician: Sarath Olivera MD BASIC METAB W/RFX MG Collected: 02/22/2024 7:36 AM S tatus: F Source: [facility] TYPE CODE TESTS RESULT OUT OF RANGE REFERENCE UNITS LAB NA(LOINC) NA (Sodium) 142 136-145 mmol/L LAB K(LOINC) K (Potassium) 4.0 3.7-5.3 mmol/L LAB CL(LOINC) Chloride 107 98-107 mmol/L LAB HCO(LOINC) CO2 28 20-31 mmol/L LAB GAP(LOINC) Anion Gap 7 Low 9-16 mmol/L LAB GLU(LOINC) Glucose 105 High 74-99 mg/dL LAB BUN(LOINC) BUN (Urea N) 24 High 8-23 mg/dL LAB CRE(LOINC) Creatinine 0.9 0.50-0.90 mg/dL LAB EGFR(LOINC) eGFR 67 >60 mL/min/1. 73m2 Result Comment: These results are not intended [...] following therapy that affects renal tubular secretion. LAB CA(LOINC) Calcium 8.3 Low 8.6-10.4 mg/dL Performed By: #### CBC, BMPX #### [facility] [place] [address] Cnc Maintenance Technician: Sarath Olivera MD CBC Collected: 4 5:45 AM Status: F Source: [facility] TYPE CODE TESTS RESULT OUT OF RANGE REFERENCE UNITS LAB WBC(LOINC) WBC Count 10.7 3.5-11.3 k/uL LAB RBC(LOINC) RBC Count 3.18 Low 3.95-5.11 m/uL LAB HGB(LOINC) Hemoglobin 9.7 Low 11.9-15.1 g/dL LAB HCT(LOINC) Hematocrit 32.1 Low 36.3-47.1 % LAB MCV(LOINC) MCV 100.9 82.6-102.9 fL LAB MCH(LOINC) MCH 30.5 25.2-33.5 pg LAB MCHC(LOINC) MCHC 30.2 28.4-34.8 g/dL LAB RDW(LOINC) RDW 17.5 High 11.8-14.4 % LAB PLT(LOINC) Platelet Count 183 138-453 k/uL LAB MPVX(LOINC) MPV 11.8 8.1-13.5 fL LAB NRBCS(LOINC) NRBC Automated 0.0 0.0 per 100 WBC Performed By: #### BMPX, PT, CBC #### [facility] [facility] [address] [place] [id number] Cnc Maintenance Technician: Sarath Olivera MD BASIC METAB W/RFX MG Collected: 02/21/2024 5:45 AM S tatus: F Source: [facility] TYPE CODE TESTS RESULT OUT OF RANGE REFERENCE UNITS LAB NA(LOINC) NA (Sodium) 143 136-145 mmol/L LAB K(LOINC) K (Potassium) 4.2 3.7-5.3 mmol/L LAB CL(LOINC) Chloride 108 High 98-107 mmol/L LAB HCO(LOINC) CO2 29 20-31 mmol/L LAB GAP(LOINC) Anion Gap 6 Low 9-16 mmol/L LAB GLU(LOINC) Glucose 122 High 74-99 mg/dL LAB BUN(LOINC) BUN (Urea N) 22 8-23 mg/dL LAB CRE(LOINC) Creatinine 0.7 0.50-0.90 mg/dL LAB EGFR(LOINC) eGFR 81 >60 mL/min/1. 73m2 Result Comment: These results are not intended [...] following therapy that affects renal tubular secretion. LAB CA(LOINC) Calcium 8.5 Low 8.6-10.4 mg/dL Performed By: #### BMPX, PT, CBC #### [facility] [facility] [address] [place] [id number] Cnc Maintenance Technician: Sarath Olivera MD PT Collected: 02/21/2024 5:45 AM Status: F Source: [facility] TYPE CODE TESTS RESULT OUT OF RANGE REFERENCE UNITS LAB PTR(LOINC) Prothrombin Time 18.8 High 11.7-14.9 se c LAB INR(LOINC) INR 1.6 Result Comment: Therapeutic Range: Moderate Anticoagulant Intensity: INR = 2.0-3.0 High Anticoagulant Intensity: INR = 2.5-3.5 Performed By: #### BMPX, PT, CBC #### [address] [id number] Cnc Maintenance Technician: Sarath Olivera MD CBC Collected: 5:05 AM Status: F Source: [facility] TYPE CODE TESTS RESULT OUT OF RANGE REFERENCE UNITS LAB WBC(LOINC) WBC Count 12.8 High 3.5-11.3 k/uL LAB RBC(LOINC) RBC Count 3.23 Low 3.95-5.11 m/uL LAB HGB(LOINC) Hemoglobin 9.9 Low 11.9-15.1 g/dL LAB HCT(LOINC) Hematocrit 32.6 Low 36.3-47.1 % LAB MCV(LOINC) MCV 100.9 82.6-102.9 fL LAB MCH(LOINC) MCH 30.7 25.2-33.5 pg LAB MCHC([facility]) MCHC 30.4 28.4-34.8 g/dL LAB RDW(LOINC) RDW 17.4 High 11.8-14.4 % LAB PLT(LOINC) Platelet Count 176 138-453 k/uL LAB MPVX(INC) MPV 11.6 8.1-13.5 fL LAB NRBCS([facility]) NRBC Automated 0.0 0.0 per 100 WBC Performed By: #### PT, BMPX, CBC #### [facility] [address] [place] [id number] Cnc Maintenance Technician: Sarath Olivera MD PT Collected: 02/20/2024 5:05 AM Status: F Source: [facility] TYPE CODE TESTS RESULT OUT OF RANGE REFERENCE UNITS LAB PTR(LOINC) Prothrombin Time 19.9 High 11.7-14.9 se c LAB INR(LOINC) INR 1.7 Result Comment: Therapeutic Range: Moderate Anticoagulant Intensity: INR = 2.0-3.0 High Anticoagulant Intensity: INR = 2.5-3.5 Performed By: #### PT, BMPX, CBC #### [facility] [employer] [address] [place] [address] [phone] Cnc Maintenance Technician: Sarath Olivera MD BASIC METAB W/RFX MG Collected: 02/20/2024 5:05 AM S tatus: F Source: [facility] TYPE CODE TESTS RESULT OUT OF RANGE REFERENCE UNITS LAB NA(LOINC) NA (Sodium) 143 136-145 mmol/L LAB K(LOINC) K (Potassium) 4.2 3.7-5.3 mmol/L LAB CL(LOINC) Chloride 107 98-107 mmol/L LAB HCO(LOINC) CO2 30 20-31 mmol/L LAB GAP(LOINC) Anion Gap 6 Low 9-16 mmol/L LAB GLU(LOINC) Glucose 143 High 74-99 mg/dL LAB BUN(LOINC) BUN (Urea N) 20 8-23 mg/dL LAB CRE(LOINC) Creatinine 0.9 0.50-0.90 mg/dL LAB EGFR(LOINC) eGFR 64 >60 mL/min/1. 73m2 Result Comment: These results are not intended [...] following therapy that affects renal tubular secretion. LAB CA(LOINC) Calcium 8.6 8.6-10.4 mg/dL Performed By: #### PT, BMPX, CBC #### [employer] [address] [place] [address] [phone] Cnc Maintenance Technician: Sarath Olivera MD PT Collected: 02/19/2024 6:03 AM Status: F Source: [facility] TYPE CODE TESTS RESULT OUT OF RANGE REFERENCE UNITS LAB PTR(LOINC) Prothrombin Time 19.3 High 11.7-14.9 se c LAB INR(LOINC) INR 1.7 Result Comment: Therapeutic Range: Moderate Anticoagulant Intensity: INR = 2.0-3.0 High Anticoagulant Intensity: INR = 2.5-3.5 Performed By: #### CBC, PT, BMPX #### [employer] [address] [place] [phone] Cnc Maintenance Technician: Sarath Olivera MD BASIC METAB W/RFX MG Collected: 02/19/2024 6:03 AM S tatus: F Source: [facility] TYPE CODE TESTS RESULT OUT OF RANGE REFERENCE UNITS LAB NA(LOINC) NA (Sodium) 140 136-145 mmol/L LAB K(LOINC) K (Potassium) 4.3 3.7-5.3 mmol/L LAB CL(LOINC) Chloride 106 98-107 mmol/L LAB HCO(LOINC) CO2 27 20-31 mmol/L LAB GAP(LOINC) Anion Gap 7 Low 9-16 mmol/L LAB GLU(LOINC) Glucose 174 High 74-99 mg/dL LAB BUN(LOINC) BUN (Urea N) 14 8-23 mg/dL LAB CRE(LOINC) Creatinine 0.8 0.50-0.90 mg/dL LAB EGFR(LOINC) eGFR 78 >60 mL/min/1. 73m2 Result Comment: These results are not intended [...] following therapy that affects renal tubular secretion. LAB CA(LOINC) Calcium 8.3 Low 8.6-10.4 mg/dL Performed By: #### CBC, PT, BMPX #### [facility] [employer] [facility] [place] [address] Cnc Maintenance Technician: Sarath Olivera MD CBC Collected: 6:03 AM Status: F Source: [facility] TYPE CODE TESTS RESULT OUT OF RANGE REFERENCE UNITS LAB WBC(LOINC) WBC Count 10.3 3.5-11.3 k/uL LAB RBC(LOINC) RBC Count 3.12 Low 3.95-5.11 m/uL LAB HGB(LOINC) Hemoglobin 9.7 Low 11.9-15.1 g/dL LAB HCT(LOINC) Hematocrit 33.5 Low 36.3-47.1 % LAB MCV(LOINC) MCV 107.4 High 82.6-102.9 fL LAB MCH(LOINC) MCH 31.1 25.2-33.5 pg LAB MCHC(LOINC) MCHC 29.0 28.4-34.8 g/dL LAB RDW(LOINC) RDW 17.8 High 11.8-14.4 % LAB PLT(LOINC) Platelet Count 165 138-453 k/uL LAB MPVX(LOINC) MPV 11.5 8.1-13.5 fL LAB NRBCS(LOINC) NRBC Automated 0.0 0.0 per 100 WBC Performed By: #### CBC, PT, BMPX #### [facility] [employer] [facility] [place] [address] Cnc Maintenance Technician: Sarath Olivera MD CBC WITH DIFF Collected: 4 2:35 PM Status: F Source: [facility] TYPE CODE TESTS RESULT OUT OF RANGE REFERENCE UNITS LAB WBC(LOINC) WBC Count 11.5 High 3.5-11.3 k/uL LAB RBC(LOINC) RBC Count 3.85 Low 3.95-5.11 m/uL LAB HGB(LOINC) Hemoglobin 11.9 11.9-15.1 g/dL LAB HCT(LOINC) Hematocrit 39.2 36.3-47.1 % LAB MCV(LOINC) MCV 101.8 82.6-102.9 fL LAB MCH(LOINC) MCH 30.9 25.2-33.5 pg LAB MCHC(LOINC) MCHC 30.4 28.4-34.8 g/dL LAB RDW(LOINC) RDW 17.9 High 11.8-14.4 % LAB PLT(LOINC) Platelet Count 254 138-453 k/uL LAB MPVX(LOINC) MPV 11.2 8.1-13.5 fL LAB NRBCS(LOINC) NRBC Automated 0.0 0.0 per 100 WBC LAB SEG(LOINC) Neutrophil (Seg) 82 High 36-65 % LAB LYM(LOINC) Lymphocyte 13 Low 24-43 % LAB MON(LOINC) Monocyte 4 3-12 % LAB EO(LOINC) Eosinophil 0 Low 1-4 % LAB BASO(LOINC) Basophil 0 0-2 % LAB IGRAN(LOINC) Immature Granulocyte 1 High 0 % LAB ASEG(LOINC) Abs.Neutrophil (Seg) 9.40 High 1.50-8.10 k/uL LAB ALYM(LOINC) Abs. Lymph 1.51 1.10-3.70 k/uL LAB AMONO(LOINC) Abs. Monocyte 0.50 0.10-1.20 k/u L LAB AEO(LOINC) Abs. Eosinophil <0.03 0.00-0.44 k/uL LAB ABASO(LOINC) Abs. Basophil <0.03 0.00-0.20 k/u L LAB AIGRAN(LOINC) Abs.Imm.Granul ocyte 0.06 0.00-0.30 k/uL LAB RCOM(LOINC) RBC Morphology ANISOCYTOSIS PRESENT Performed By: #### RUBIA CMPX , PT #### [employer] [address] [place] [phone] [employer]nc Maintenance Technician: Sarath Olivera MD PT Collected: 02/18/2024 2:35 PM Status: F Source: [facility] TYPE CODE TESTS RESULT OUT OF RANGE REFERENCE UNITS LAB PTR(LOINC) Prothrombin Time 17.1 High 11.7-14.9 se c LAB INR(LOINC) INR 1.4 Result Comment: Therapeutic Range: Moderate Anticoagulant Intensity: INR = 2.0-3.0 High Anticoagulant Intensity: INR = 2.5-3.5 Performed By: #### YAMILKA BARKLEYX , PT #### [facility] [employer] [address] [place] [phone] Cnc Maintenance Technician: Sarath Olivera MD COMP METABOLIC NJ/RFX MG Collected: 02/18/2024 2:35 P M Status: F Source: [facility] TYPE CODE TESTS RESULT OUT OF RANGE REFERENCE UNITS LAB NA(LOINC) NA (Sodium) 143 136-145 mmol/L LAB K(LOINC) K (Potassium) 4.4 3.7-5.3 mmol/L LAB CL(LOINC) Chloride 103 98-107 mmol/L LAB HCO(LOINC) CO2 27 20-31 mmol/L LAB GAP(LOINC) Anion Gap 13 9-16 mmol/L LAB GLU(LOINC) Glucose 240 High 74-99 mg/dL LAB BUN(LOINC) BUN (Urea N) 10 8-23 mg/dL LAB CRE(LOINC) Creatinine 0.9 0.50-0.90 mg/dL LAB EGFR(LOINC) eGFR 61 >60 mL/min/1. 73m2 Result Comment: These results are not intended [...] following therapy that affects renal tubular secretion. LAB CA(LOINC) Calcium 9.0 8.6-10.4 mg/dL LAB TP(LOINC) Protein, Total 6.4 Low 6.6-8.7 g/dL LAB ALB(LOINC) Albumin 3.6 3.5-5.2 g/dL LAB AG(LOINC) Albumin/Glob Ratio 1.0 1.0-2.5 LAB TBIL(LOINC) Bilirubin, Total 0.5 0.00-1.20 mg/dL LAB ALP(LOINC) Alkaline Phos 131 High 35-104 U/L LAB ALT(LOINC) ALT 7 Low 10-35 U/L LAB AST(LOINC) AST 26 10-35 U/L Performed By: #### CDP, CMPX , PT #### [facility] [employer] [address] [place] [id number] Cnc Maintenance Technician: Sarath Olivera MD XR SHOULDER LEFT (MIN 2 VIEWS) Observed: 02/18/2024 12:00 PM Status: F Source: [facility] EXAMINATION: XRAY VIEWS OF THE LEFT SHOULDER [...] by: Lucian Dee MD 02/18/24 Final result PT Collected: 02/17/2024 2:39 PM Status: F Source: [facility] TYPE CODE TESTS RESULT OUT OF RANGE REFERENCE UNITS LAB PTR(LOINC) Prothrombin Time 17.4 High 11.7-14.9 se c LAB INR(LOINC) INR 1.5 Result Comment: Therapeutic Range: Moderate Anticoagulant Intensity: INR = 2.0-3.0 High Anticoagulant Intensity: INR = 2.5-3.5 Performed By: #### PTT, PT # ### [address] [address] [employer]nc Maintenance Technician: Sarath Olivera MD APTT Collected: 2:39 PM Status: F Source: [facility] TYPE CODE TESTS RESULT OUT OF RANGE REFERENCE UNITS LAB PTTR(LOINC) PTT 28.7 23.0-36.5 sec Result Comment: IV Heparin Therapy Range: 66.0-92.0 sec Performed By: #### PTT, PT # ### [address] [id number] [employer]nc Maintenance Technician: Sarath Olivera MD FFP, TRANSFUSE Observed: 02/17/2024 12:45 PM Status: F Source: [facility] Unit Number [id number] Blood Component Type FRESH PLASMA Unit Division 00 Status of Unit TRANSFUSED Transfusion Status OK TO TRANSFUSE Performed By: #### TFFP #### [address] [phone] [employer]nc Maintenance Technician: Sarath Olivera MD PT Collected: 02/17/2024 10:52 AM Status: F Source: [facility] TYPE CODE TESTS RESULT OUT OF RANGE REFERENCE UNITS LAB PTR(LOINC) Prothrombin Time 19.8 High 11.7-14.9 se c LAB INR(LOINC) INR 1.7 Result Comment: Therapeutic Range: Moderate Anticoagulant Intensity: INR = 2.0-3.0 High Anticoagulant Intensity: INR = 2.5-3.5 Performed By: #### PT, PTT # ### [address] [id number] [employer] Maintenance Technician: Sarath Olivera MD APTT Collected: 07/16/202 4 10:52 AM Status: F Source: [facility] TYPE CODE TESTS RESULT OUT OF RANGE REFERENCE UNITS LAB PTTR(LOINC) PTT 30.9 23.0-36.5 sec Result Comment: IV Heparin Therapy Range: 66.0-92.0 sec Performed By: #### PT, PTT # ### [address] [address] [employer] Maintenance Technician: Sarath Olivera MD FFP, TRANSFUSE Observed: 02/17/2024 8:30 AM Status: F Source: [facility] Unit Number [id number] Blood Component Type FRESH PLASMA Unit Division 00 Status of Unit TRANSFUSED Transfusion Status OK TO TRANSFUSE Performed By: #### TFFP #### [address] [address] [employer]nc Maintenance Technician: Sarath Olivera MD TYPE + SCREEN Observed: 02/17/2024 7:58 AM Status: F Source: [facility] Sample Expiration 02/20/2024 ,2359 Arm Band Number [id number] ABO/Rh(D) O POSITIVE Antibody Screen NEGATIVE Unit Number [id number] Blood Component Type Leukocyte Reduced Red Cell Unit Division 00 Status of Unit REL FROM ALLOC Transfusion Status OK TO TRANSFUSE Crossmatch Result COMPATIBLEUnit Number [id number] Blood Component Type Leukocyte Reduced Red Cell Unit Division 00 Status of Unit REL FROM ALLOC Transfusion Status OK TO TRANSFUSE Crossmatch Result COMPATIBLE Performed By: #### TYS #### [address] [id number] Cnc Maintenance Technician: Sarath Olivera MD PT (WHOLE BLOOD) Collected: 7:26 AM Status: F Source: [facility] TYPE CODE TESTS RESULT OUT OF RANGE REFERENCE UNITS LAB PTOR(LOINC) PT (Whole Blood) 23.6 High 10.4-14.2 sec LAB INRO(LOINC) Intl. Normal. Ratio 2.0 Result Comment: Therapeutic Range: Moderate Anticoagulant Intensity: INR = 2.0-3.0 High Anticoagulant Intensity: INR = 2.5-3.5 CBC WITH DIFF Collected: 02/02/2024 10:06 AM Status: F Source: [facility] TYPE CODE TESTS RESULT OUT OF RANGE REFERENCE UNITS LAB WBC(LOINC) WBC Count 5.6 3.5-11.3 k/uL LAB RBC(LOINC) RBC Count 3.40 Low 3.95-5.11 m/uL LAB HGB(LOINC) Hemoglobin 10.4 Low 11.9-15.1 g/dL LAB HCT(LOINC) Hematocrit 33.7 Low 36.3-47.1 % LAB MCV(LOINC) MCV 99.1 82.6-102.9 fL LAB MCH(LOINC) MCH 30.6 25.2-33.5 pg LAB MCHC(LOINC) MCHC 30.9 28.4-34.8 g/dL LAB RDW(LOINC) RDW 16.1 High 11.8-14.4 % LAB PLT(LOINC) Platelet Count 250 138-453 k/uL LAB MPVX(LOINC) MPV 11.6 8.1-13.5 fL LAB NRBCS(LOINC) NRBC Automated 0.0 0.0 per 100 WBC LAB SEG(LOINC) Neutrophil (Seg) 57 36-65 % LAB LYM(LOINC) Lymphocyte 34 24-43 % LAB MON(LOINC) Monocyte 8 3-12 % LAB EO(LOINC) Eosinophil 1 1-4 % LAB BASO(LOINC) Basophil 0 0-2 % LAB IGRAN(LOINC) Immature Granulocyte 0 0 % LAB ASEG(LOINC) Abs.Neutrophil (Seg) 3.17 1.50-8.10 k/uL LAB ALYM(LOINC) Abs. Lymph 1.89 1.10-3.70 k/uL LAB AMONO(LOINC) Abs. Monocyte 0.44 0.10-1.20 k/u L LAB AEO(LOINC) Abs. Eosinophil 0.08 0.00-0.44 k/u L LAB ABASO(LOINC) Abs. Basophil <0.03 0.00-0.20 k/u L LAB AIGRAN(LOINC) Abs.Imm.Granulo cyte <0.03 0.00-0.30 k/uL Performed By: #### CP, CDP # ### [facility] [address] [place] [address] Cnc Maintenance Technician: Juaquin De La Torre MD COMP METABOLIC PROF Collected: 02/02/20 24 10:06 AM Status: F Source: [facility] TYPE CODE TESTS RESULT OUT OF RANGE REFERENCE UNITS LAB NA(LOINC) NA (Sodium) 143 135-144 mmol/L LAB K(LOINC) K (Potassium) 4.0 3.7-5.3 mmol/L LAB CL(LOINC) Chloride 108 High 98-107 mmol/L LAB HCO(LOINC) CO2 24 20-31 mmol/L LAB GAP(LOINC) Anion Gap 11 9-17 mmol/L LAB GLU(LOINC) Glucose 123 High 70-99 mg/dL LAB BUN(LOINC) BUN (Urea N) 12 8-23 mg/dL LAB CRE(LOINC) Creatinine 0.8 0.5-0.9 mg/dL LAB EGFR(LOINC) eGFR 73 >60 mL/min/1. 73m2 Result Comment: These results are not intended [...] following therapy that affects renal tubular secretion. LAB BUNCRE(LOINC) BUN/CRE Ratio 15 9-20 LAB CA(LOINC) Calcium 7.8 Low 8.6-10.4 mg/dL LAB TP(LOINC) Protein, Total 5.4 Low 6.4-8.3 g/dL LAB ALB(LOINC) Albumin 2.7 Low 3.5-5.2 g/dL LAB AG(LOINC) Albumin/Glob Ratio 1.0 1.0-2.5 LAB TBIL(LOINC) Bilirubin, Total 0.4 0.3-1.2 mg/dL LAB ALP(LOINC) Alkaline Phos 116 High 35-104 U/L LAB ALT(LOINC) ALT 10 5-33 U/L LAB AST(LOINC) AST 21 <32 U/L Performed By: #### CP, CDP # ### [facility] [address] [place] [address] Cnc Maintenance Technician: Juaquin De La Torre MD CT HEAD WO CONTRAST Observed: 01/27/2024 9:44 AM Status: F Source: [facility] EXAMINATION: CT OF THE HEAD WITHOUT CONTRAST 01/23/2024 8:27 am TECHNIQUE: CT of the head was performed without the administration of intravenous contrast. Automated exposure control, iterative reconstruction, and/or weight based adjustment of the mA/kV was utilized to reduce the radiation dose to as low as reasonably achievable. COMPARISON: 01/06/2024 HISTORY: ORDERING SYSTEM PROVIDED HISTORY: SDH (subdural hematoma) ([facility]) TECHNOLOGIST PROVIDED HISTORY: F/U SDH [...] by: Renny Rodriguez MD 01/27/24 Final result CBC WITH DIFF Collected: 01/26/2024 6:35 AM Status: F Source: [facility] TYPE CODE TESTS RESULT OUT OF RANGE REFERENCE UNITS LAB WBC(LOINC) WBC Count 3.5 3.5-11.3 k/uL LAB RBC(LOINC) RBC Count 3.09 Low 3.95-5.11 m/uL LAB HGB(LOINC) Hemoglobin 9.7 Low 11.9-15.1 g/dL LAB HCT(LOINC) Hematocrit 30.9 Low 36.3-47.1 % LAB MCV(LOINC) MCV 100.0 82.6-102.9 fL LAB MCH(LOINC) MCH 31.4 25.2-33.5 pg LAB MCHC(LOINC) MCHC 31.4 28.4-34.8 g/dL LAB RDW(LOINC) RDW 16.3 High 11.8-14.4 % LAB PLT(LOINC) Platelet Count 271 138-453 k/uL LAB MPVX(LOINC) MPV 11.5 8.1-13.5 fL LAB NRBCS(LOINC) NRBC Automated 0.0 0.0 per 100 WBC LAB SEG(LOINC) Neutrophil (Seg) 61 36-65 % LAB LYM(LOINC) Lymphocyte 22 Low 24-43 % LAB MON(LOINC) Monocyte 14 High 3-12 % LAB EO(LOINC) Eosinophil 1 1-4 % LAB BASO(LOINC) Basophil 1 0-2 % LAB IGRAN(LOINC) Immature Granulocyte 1 High 0 % LAB ASEG(LOINC) Abs.Neutrophil (Seg) 2.15 1.50-8.10 k/uL LAB ALYM(LOINC) Abs. Lymph 0.79 Low 1.10-3.70 k/uL LAB AMONO(LOINC) Abs. Monocyte 0.49 0.10-1.20 k/u L LAB AEO(LOINC) Abs. Eosinophil 0.04 0.00-0.44 k/u L LAB ABASO(LOINC) Abs. Basophil <0.03 0.00-0.20 k/u L LAB AIGRAN(LOINC) Abs.Imm.Granulo cyte 0.03 0.00-0.30 k/uL Performed By: #### CDP, CMPF #### [facility] [address] [place] [address] Cnc Maintenance Technician: Juaquin De La Torre MD COMP METABOL,FASTING Collected: 024 6:35 AM Status: F Source: [facility] TYPE CODE TESTS RESULT OUT OF RANGE REFERENCE UNITS LAB NA(LOINC) NA (Sodium) 140 135-144 mmol/L LAB K(LOINC) K (Potassium) 4.1 3.7-5.3 mmol/L LAB CL(LOINC) Chloride 105 98-107 mmol/L LAB HCO(LOINC) CO2 27 20-31 mmol/L LAB GAP(LOINC) Anion Gap 8 Low 9-17 mmol/L LAB GLUF(LOINC) Glucose, Fasting 90 70-99 mg/dL LAB BUN(LOINC) BUN (Urea N) 15 8-23 mg/dL LAB CRE(LOINC) Creatinine 0.8 0.5-0.9 mg/dL LAB EGFR(LOINC) eGFR 73 >60 mL/min/1 .73m2 Result Comment: These results are not intended [...] following therapy that affects renal tubular secretion. LAB BUNCRE(LOINC) BUN/CRE Ratio 19 9-20 LAB CA(LOINC) Calcium 7.9 Low 8.6-10.4 mg/dL LAB TP(LOINC) Protein, Total 5.0 Low 6.4-8.3 g/dL LAB ALB(LOINC) Albumin 2.6 Low 3.5-5.2 g/dL LAB AG(LOINC) Albumin/Glob Ratio 1.1 1.0-2.5 LAB TBIL(LOINC) Bilirubin, Total 0.5 0.3-1.2 mg/dL LAB ALP(LOINC) Alkaline Phos 92 35-104 U/L LAB ALT(LOINC) ALT 18 5-33 U/L LAB AST(LOINC) AST 23 <32 U/L Performed By: #### CDP, CMPF #### [facility] [address] [place] [address] Cnc Maintenance Technician: Juaquin De La Torre MD CBC WITH DIFF Collected: 01/19/2024 7:30 AM Status: F Source: [facility] TYPE CODE TESTS RESULT OUT OF RANGE REFERENCE UNITS LAB WBC(LOINC) WBC Count 7.5 3.5-11.3 k/uL LAB RBC(LOINC) RBC Count 3.12 Low 3.95-5.11 m/uL LAB HGB(LOINC) Hemoglobin 9.7 Low 11.9-15.1 g/dL LAB HCT(LOINC) Hematocrit 30.7 Low 36.3-47.1 % LAB MCV(LOINC) MCV 98.4 82.6-102.9 fL LAB MCH(LOINC) MCH 31.1 25.2-33.5 pg LAB MCHC(LOINC) MCHC 31.6 28.4-34.8 g/dL LAB RDW(LOINC) RDW 16.6 High 11.8-14.4 % LAB PLT(LOINC) Platelet Count 249 138-453 k/uL LAB MPVX(LOINC) MPV 11.9 8.1-13.5 fL LAB NRBCS(LOINC) NRBC Automated 0.0 0.0 per 100 WBC LAB SEG(LOINC) Neutrophil (Seg) 71 High 36-65 % LAB LYM(LOINC) Lymphocyte 15 Low 24-43 % LAB MON(LOINC) Monocyte 13 High 3-12 % LAB EO(LOINC) Eosinophil 1 1-4 % LAB BASO(LOINC) Basophil 0 0-2 % LAB IGRAN(LOINC) Immature Granulocyte 1 High 0 % LAB ASEG(LOINC) Abs.Neutrophil (Seg) 5.33 1.50-8.10 k/uL LAB ALYM(LOINC) Abs. Lymph 1.11 1.10-3.70 k/uL LAB AMONO(LOINC) Abs. Monocyte 0.95 0.10-1.20 k/u L LAB AEO(LOINC) Abs. Eosinophil 0.07 0.00-0.44 k/u L LAB ABASO(LOINC) Abs. Basophil 0.03 0.00-0.20 k/u L LAB AIGRAN(LOINC) Abs.Imm.Granulo cyte 0.05 0.00-0.30 k/uL Performed By: #### CDP, CP # ### [facility] [address] [place] [address] Cnc Maintenance Technician: Juaquin De La Torre MD COMP METABOLIC PROF Collected: 01/19/20 24 7:30 AM Status: F Source: [facility] TYPE CODE TESTS RESULT OUT OF RANGE REFERENCE UNITS LAB NA(LOINC) NA (Sodium) 135 135-144 mmol/L LAB K(LOINC) K (Potassium) 3.8 3.7-5.3 mmol/L LAB CL(LOINC) Chloride 100 98-107 mmol/L LAB HCO(LOINC) CO2 30 20-31 mmol/L LAB GAP(LOINC) Anion Gap 5 Low 9-17 mmol/L LAB GLU(LOINC) Glucose 98 70-99 mg/dL LAB BUN(LOINC) BUN (Urea N) 19 8-23 mg/dL LAB CRE(LOINC) Creatinine 0.7 0.5-0.9 mg/dL LAB EGFR(LOINC) eGFR 85 >60 mL/min/1. 73m2 Result Comment: These results are not intended [...] following therapy that affects renal tubular secretion. LAB BUNCRE(LOINC) BUN/CRE Ratio 27 High 9-20 LAB CA(LOINC) Calcium 7.6 Low 8.6-10.4 mg/dL LAB TP(LOINC) Protein, Total 4.8 Low 6.4-8.3 g/dL LAB ALB(LOINC) Albumin 2.6 Low 3.5-5.2 g/dL LAB AG(LOINC) Albumin/Glob Ratio 1.2 1.0-2.5 LAB TBIL(LOINC) Bilirubin, Total 1.2 0.3-1.2 mg/dL LAB ALP(LOINC) Alkaline Phos 78 35-104 U/L LAB ALT(LOINC) ALT 42 High 5-33 U/L LAB AST(LOINC) AST 43 High <32 U/L Performed By: #### CDP, CP # ### [facility] [address] [place] [address] Cnc Maintenance Technician: Juaquin De La Torre MD CBC WITH DIFF Collected: 01/15/2024 7:25 AM Status: F Source: [facility] TYPE CODE TESTS RESULT OUT OF RANGE REFERENCE UNITS LAB WBC(LOINC) WBC Count 12.0 High 3.5-11.3 k/uL LAB RBC(LOINC) RBC Count 3.31 Low 3.95-5.11 m/uL LAB HGB(LOINC) Hemoglobin 10.3 Low 11.9-15.1 g/dL LAB HCT(LOINC) Hematocrit 31.7 Low 36.3-47.1 % LAB MCV(LOINC) MCV 95.8 82.6-102.9 fL LAB MCH(LOINC) MCH 31.1 25.2-33.5 pg LAB MCHC(LOINC) MCHC 32.5 28.4-34.8 g/dL LAB RDW(LOINC) RDW 15.9 High 11.8-14.4 % LAB PLT(LOINC) Platelet Count 176 138-453 k/uL LAB MPVX(LOINC) MPV 11.8 8.1-13.5 fL LAB NRBCS(LOINC) NRBC Automated 0.0 0.0 per 100 WBC LAB SEG(LOINC) Neutrophil (Seg) 81 High 36-65 % LAB LYM(LOINC) Lymphocyte 7 Low 24-43 % LAB MON(LOINC) Monocyte 11 3-12 % LAB EO(LOINC) Eosinophil 0 Low 1-4 % LAB BASO(LOINC) Basophil 0 0-2 % LAB IGRAN(LOINC) Immature Granulocyte 1 High 0 % LAB ASEG(LOINC) Abs.Neutrophil (Seg) 9.73 High 1.50-8.10 k/uL LAB ALYM(LOINC) Abs. Lymph 0.83 Low 1.10-3.70 k/uL LAB AMONO(LOINC) Abs. Monocyte 1.30 High 0.10-1.20 k/u L LAB AEO(LOINC) Abs. Eosinophil 0.05 0.00-0.44 k/u L LAB ABASO(LOINC) Abs. Basophil 0.03 0.00-0.20 k/u L LAB AIGRAN(LOINC) Abs.Imm.Granulo cyte 0.09 0.00-0.30 k/uL Performed By: #### CP, CDP # ### [facility] [address] [place] [address] Cnc Maintenance Technician: Juaquin De La Torre MD COMP METABOLIC PROF Collected: 01/15/20 24 7:25 AM Status: F Source: [facility] TYPE CODE TESTS RESULT OUT OF RANGE REFERENCE UNITS LAB NA(LOINC) NA (Sodium) 137 135-144 mmol/L LAB K(LOINC) K (Potassium) 4.6 3.7-5.3 mmol/L LAB CL(LOINC) Chloride 101 98-107 mmol/L LAB HCO(LOINC) CO2 26 20-31 mmol/L LAB GAP(LOINC) Anion Gap 10 9-17 mmol/L LAB GLU(LOINC) Glucose 101 High 70-99 mg/dL LAB BUN(LOINC) BUN (Urea N) 27 High 8-23 mg/dL LAB CRE(LOINC) Creatinine 0.8 0.5-0.9 mg/dL LAB EGFR(LOINC) eGFR 73 >60 mL/min/1. 73m2 Result Comment: These results are not intended [...] following therapy that affects renal tubular secretion. LAB BUNCRE(LOINC) BUN/CRE Ratio 34 High 9-20 LAB CA(LOINC) Calcium 8.2 Low 8.6-10.4 mg/dL LAB TP(LOINC) Protein, Total 5.2 Low 6.4-8.3 g/dL LAB ALB(LOINC) Albumin 2.8 Low 3.5-5.2 g/dL LAB AG(LOINC) Albumin/Glob Ratio 1.2 1.0-2.5 LAB TBIL(LOINC) Bilirubin, Total 1.3 High 0.3-1.2 mg/dL LAB ALP(LOINC) Alkaline Phos 74 35-104 U/L LAB ALT(LOINC) ALT 22 5-33 U/L LAB AST(LOINC) AST 36 High <32 U/L Performed By: #### CP, CDP # ### [facility] [address] [place] [address] Cnc Maintenance Technician: Juaquin De La Torre MD PT Collected: 01/13/2024 9:48 AM Status: F Source: [facility] TYPE CODE TESTS RESULT OUT OF RANGE REFERENCE UNITS LAB PTR(LOINC) Prothrombin Time 15.6 High 11.7-14.9 se c LAB INR(LOINC) INR 1.3 Result Comment: Therapeutic Range: Moderate Anticoagulant Intensity: INR = 2.0-3.0 High Anticoagulant Intensity: INR = 2.5-3.5 Performed By: #### PT #### [address] [place] [address] Cnc Maintenance Technician: Sarath Olivera MD PT Collected: 01/12/2024 12:54 PM Status: F Source: [facility] TYPE CODE TESTS RESULT OUT OF RANGE REFERENCE UNITS LAB PTR(LOINC) Prothrombin Time 14.6 11.7-14.9 se c LAB INR(LOINC) INR 1.2 Result Comment: Therapeutic Range: Moderate Anticoagulant Intensity: INR = 2.0-3.0 High Anticoagulant Intensity: INR = 2.5-3.5 Performed By: #### PT #### [facility] [address] [place] [address] Cnc Maintenance Technician: Sarath Olivera MD XR CHEST PORTABLE Observed: 01/12/2024 10:36 AM Status: F Source: [facility] EXAMINATION: ONE XRAY VIEW OF THE CHEST [...] by: Deon Webb MD 01/12/24 Final result CBC WITH DIFF Collected: 8:18 AM Status: F Source: [facility] TYPE CODE TESTS RESULT OUT OF RANGE REFERENCE UNITS LAB WBC(LOINC) WBC Count 9.4 3.5-11.3 k/uL LAB RBC(LOINC) RBC Count 3.01 Low 3.95-5.11 m/uL LAB HGB(LOINC) Hemoglobin 9.3 Low 11.9-15.1 g/dL LAB HCT(LOINC) Hematocrit 29.8 Low 36.3-47.1 % LAB MCV(LOINC) MCV 99.0 82.6-102.9 fL LAB MCH(LOINC) MCH 30.9 25.2-33.5 pg LAB MCHC(LOINC) MCHC 31.2 28.4-34.8 g/dL LAB RDW(LOINC) RDW 15.8 High 11.8-14.4 % LAB PLT(LOINC) Platelet Count 140 138-453 k/uL LAB MPVX(LOINC) MPV 12.4 8.1-13.5 fL LAB NRBCS(LOINC) NRBC Automated 0.5 High 0.0 per 100 WBC LAB SEG(LOINC) Neutrophil (Seg) 69 High 36-65 % LAB LYM(LOINC) Lymphocyte 13 Low 24-43 % LAB MON(LOINC) Monocyte 13 High 3-12 % LAB EO(LOINC) Eosinophil 2 1-4 % LAB BASO(LOINC) Basophil 0 0-2 % LAB IGRAN(LOINC) Immature Granulocyte 3 High 0 % LAB ASEG(LOINC) Abs.Neutrophil (Seg) 6.54 1.50-8.10 k/uL LAB ALYM(LOINC) Abs. Lymph 1.23 1.10-3.70 k/uL LAB AMONO(LOINC) Abs. Monocyte 1.19 0.10-1.20 k/u L LAB AEO(LOINC) Abs. Eosinophil 0.19 0.00-0.44 k/uL LAB ABASO(LOINC) Abs. Basophil 0.03 0.00-0.20 k/u L LAB AIGRAN(LOINC) Abs.Imm.Granul ocyte 0.24 0.00-0.30 k/uL LAB RCOM(LOINC) RBC Morphology ANISOCYTOSIS PRESENT Performed By: #### CDP, BMPX #### [facility] [place], [place] [id number] Cnc Maintenance Technician: Sarath Olivera MD BASIC METAB W/RFX MG Collected: 01/12/2024 8:18 AM S tatus: F Source: [facility] TYPE CODE TESTS RESULT OUT OF RANGE REFERENCE UNITS LAB NA(LOINC) NA (Sodium) 137 136-145 mmol/L LAB K(LOINC) K (Potassium) 4.5 3.7-5.3 mmol/L LAB CL(LOINC) Chloride 103 98-107 mmol/L LAB HCO(LOINC) CO2 25 20-31 mmol/L LAB GAP(LOINC) Anion Gap 9 9-16 mmol/L LAB GLU(LOINC) Glucose 92 74-99 mg/dL LAB BUN(LOINC) BUN (Urea N) 28 High 8-23 mg/dL LAB CRE(LOINC) Creatinine 0.8 0.50-0.90 mg/dL LAB EGFR(LOINC) eGFR 78 >60 mL/min/1. 73m2 Result Comment: These results are not intended [...] following therapy that affects renal tubular secretion. LAB CA(LOINC) Calcium 8.3 Low 8.6-10.4 mg/dL Performed By: #### CDP, BMPX #### [facility] [address] [place] [id number] Cnc Maintenance Technician: Sarath Olivera MD CBC WITH DIFF Collected: 4 6:40 AM Status: F Source: [facility] TYPE CODE TESTS RESULT OUT OF RANGE REFERENCE UNITS LAB WBC(LOINC) WBC Count 10.4 3.5-11.3 k/uL LAB RBC(LOINC) RBC Count 2.88 Low 3.95-5.11 m/uL LAB HGB(LOINC) Hemoglobin 8.9 Low 11.9-15.1 g/dL LAB HCT(LOINC) Hematocrit 28.4 Low 36.3-47.1 % LAB MCV(LOINC) MCV 98.6 82.6-102.9 fL LAB MCH(LOINC) MCH 30.9 25.2-33.5 pg LAB MCHC(LOINC) MCHC 31.3 28.4-34.8 g/dL LAB RDW(LOINC) RDW 15.6 High 11.8-14.4 % LAB PLT(LOINC) Platelet Count 109 Low 138-453 k/uL LAB MPVX(LOINC) MPV 12.1 8.1-13.5 fL LAB NRBCS(LOINC) NRBC Automated 1.3 High 0.0 per 100 WBC LAB SEG(LOINC) Neutrophil (Seg) 70 High 36-65 % LAB LYM(LOINC) Lymphocyte 13 Low 24-43 % LAB MON(LOINC) Monocyte 14 High 3-12 % LAB EO(LOINC) Eosinophil 1 1-4 % LAB BASO(LOINC) Basophil 0 0-2 % LAB IGRAN(LOINC) Immature Granulocyte 2 High 0 % LAB ASEG(LOINC) Abs.Neutrophil (Seg) 7.27 1.50-8.10 k/uL LAB ALYM(LOINC) Abs. Lymph 1.31 1.10-3.70 k/uL LAB AMONO(LOINC) Abs. Monocyte 1.42 High 0.10-1.20 k/u L LAB AEO(LOINC) Abs. Eosinophil 0.11 0.00-0.44 k/uL LAB ABASO(LOINC) Abs. Basophil <0.03 0.00-0.20 k/u L LAB AIGRAN(LOINC) Abs.Imm.Granul ocyte 0.23 0.00-0.30 k/uL LAB RCOM(LOINC) RBC Morphology ANISOCYTOSIS PRESENT Performed By: #### CDP, BMPX #### [place] [address] Cnc Maintenance Technician: Sarath Olivera MD BASIC METAB W/RFX MG Collected: 01/11/2024 6:40 AM S tatus: F Source: [facility] TYPE CODE TESTS RESULT OUT OF RANGE REFERENCE UNITS LAB NA(LOINC) NA (Sodium) 135 Low 136-145 mmol/L LAB K(LOINC) K (Potassium) 4.7 3.7-5.3 mmol/L LAB CL(LOINC) Chloride 104 98-107 mmol/L LAB HCO(LOINC) CO2 24 20-31 mmol/L LAB GAP(LOINC) Anion Gap 7 Low 9-16 mmol/L LAB GLU(LOINC) Glucose 106 High 74-99 mg/dL LAB BUN(LOINC) BUN (Urea N) 28 High 8-23 mg/dL LAB CRE(LOINC) Creatinine 0.8 0.50-0.90 mg/dL LAB EGFR(LOINC) eGFR 70 >60 mL/min/1. 73m2 Result Comment: These results are not intended [...] following therapy that affects renal tubular secretion. LAB CA(LOINC) Calcium 8.0 Low 8.6-10.4 mg/dL Performed By: #### CDP, BMPX #### [facility] [address] [place] [address] Cnc Maintenance Technician: Sarath Olivera MD CBC WITH DIFF Collected: 4 6:49 AM Status: F Source: [facility] TYPE CODE TESTS RESULT OUT OF RANGE REFERENCE UNITS LAB WBC(LOINC) WBC Count 9.9 3.5-11.3 k/uL LAB RBC(LOINC) RBC Count 2.92 Low 3.95-5.11 m/uL LAB HGB(LOINC) Hemoglobin 9.0 Low 11.9-15.1 g/dL LAB HCT(LOINC) Hematocrit 28.2 Low 36.3-47.1 % LAB MCV(LOINC) MCV 96.6 82.6-102.9 fL LAB MCH(LOINC) MCH 30.8 25.2-33.5 pg LAB MCHC(LOINC) MCHC 31.9 28.4-34.8 g/dL LAB RDW(LOINC) RDW 15.7 High 11.8-14.4 % LAB PLT(LOINC) Platelet Count 102 Low 138-453 k/uL LAB MPVX(LOINC) MPV 12.7 8.1-13.5 fL LAB NRBCS(LOINC) NRBC Automated 1.1 High 0.0 per 100 WBC LAB SEG(LOINC) Neutrophil (Seg) 71 High 36-65 % LAB LYM(LOINC) Lymphocyte 15 Low 24-43 % LAB MON(LOINC) Monocyte 13 High 3-12 % LAB EO(LOINC) Eosinophil 0 Low 1-4 % LAB BASO(LOINC) Basophil 0 0-2 % LAB IGRAN(LOINC) Immature Granulocyte 1 High 0 % LAB ASEG(LOINC) Abs.Neutrophil (Seg) 7.01 1.50-8.10 k/uL LAB ALYM(LOINC) Abs. Lymph 1.46 1.10-3.70 k/uL LAB AMONO(LOINC) Abs. Monocyte 1.28 High 0.10-1.20 k/u L LAB AEO(LOINC) Abs. Eosinophil <0.03 0.00-0.44 k/uL LAB ABASO(LOINC) Abs. Basophil <0.03 0.00-0.20 k/u L LAB AIGRAN(LOINC) Abs.Imm.Granul ocyte 0.12 0.00-0.30 k/uL LAB RCOM(LOINC) RBC Morphology ANISOCYTOSIS PRESENT Performed By: #### CDP, BMPX #### [facility] [place], [place] [id number] Cnc Maintenance Technician: Sarath Olivera MD BASIC METAB W/RFX MG Collected: 01/10/2024 6:49 AM S tatus: F Source: [facility] TYPE CODE TESTS RESULT OUT OF RANGE REFERENCE UNITS LAB NA(LOINC) NA (Sodium) 141 136-145 mmol/L LAB K(LOINC) K (Potassium) 4.9 3.7-5.3 mmol/L LAB CL(LOINC) Chloride 109 High 98-107 mmol/L LAB HCO(LOINC) CO2 25 20-31 mmol/L LAB GAP(LOINC) Anion Gap 7 Low 9-16 mmol/L LAB GLU(LOINC) Glucose 96 74-99 mg/dL LAB BUN(LOINC) BUN (Urea N) 31 High 8-23 mg/dL LAB CRE(LOINC) Creatinine 0.8 0.50-0.90 mg/dL LAB EGFR(LOINC) eGFR 68 >60 mL/min/1. 73m2 Result Comment: These results are not intended [...] following therapy that affects renal tubular secretion. LAB CA(LOINC) Calcium 8.4 Low 8.6-10.4 mg/dL Performed By: #### CDP, BMPX #### [facility] [address] [place] [address] Cnc Maintenance Technician: Sarath Olivera MD BASIC METAB W/RFX MG Collected: 01/09/2024 8:03 AM S tatus: F Source: [facility] TYPE CODE TESTS RESULT OUT OF RANGE REFERENCE UNITS LAB NA(LOINC) NA (Sodium) 143 136-145 mmol/L LAB K(LOINC) K (Potassium) 5.1 3.7-5.3 mmol/L LAB CL(LOINC) Chloride 113 High 98-107 mmol/L LAB HCO(LOINC) CO2 23 20-31 mmol/L LAB GAP(LOINC) Anion Gap 7 Low 9-16 mmol/L LAB GLU(LOINC) Glucose 112 High 74-99 mg/dL LAB BUN(LOINC) BUN (Urea N) 31 High 8-23 mg/dL LAB CRE(LOINC) Creatinine 0.9 0.50-0.90 mg/dL LAB EGFR(LOINC) eGFR 61 >60 mL/min/1. 73m2 Result Comment: These results are not intended [...] following therapy that affects renal tubular secretion. LAB CA(LOINC) Calcium 8.0 Low 8.6-10.4 mg/dL Performed By: #### BMPX, CDP #### [facility] [address], [place] [id number] Cnc Maintenance Technician: Sarath Olievra MD CBC WITH DIFF Collected: 8:03 AM Status: F Source: [facility] TYPE CODE TESTS RESULT OUT OF RANGE REFERENCE UNITS LAB WBC(LOINC) WBC Count 11.6 High 3.5-11.3 k/uL LAB RBC(LOINC) RBC Count 2.83 Low 3.95-5.11 m/uL LAB HGB(LOINC) Hemoglobin 8.5 Low 11.9-15.1 g/dL LAB HCT(LOINC) Hematocrit 28.1 Low 36.3-47.1 % LAB MCV(LOINC) MCV 99.3 82.6-102.9 fL LAB MCH(LOINC) MCH 30.0 25.2-33.5 pg LAB MCHC(LOINC) MCHC 30.2 28.4-34.8 g/dL LAB RDW(LOINC) RDW 16.0 High 11.8-14.4 % LAB PLT(LOINC) Platelet Count See Reflexed IPF Result 138-453 k/uL LAB PLTFL(LOINC) Platelet, Fluoresc. 84 Low 138-453 k/uL LAB IPLTF(LOINC) PLT, Immature Fract. 11.1 High 1.1-10.3 % LAB NRBCS(LOINC) NRBC Automated 0.9 High 0.0 per 100 WBC LAB RCOM(LOINC) RBC Morphology ANISOCYTOSIS PRESENT LAB SEG(LOINC) Neutrophil (Seg) 83 High 36-65 % LAB LYM(LOINC) Lymphocyte 7 Low 24-43 % LAB MON(LOINC) Monocyte 9 3-12 % LAB EO(LOINC) Eosinophil 0 Low 1-4 % LAB BASO(LOINC) Basophil 0 0-2 % LAB IGRAN(LOINC) Immature Granulocyte 1 High 0 % LAB ASEG(LOINC) Abs.Neutrophil (Seg) 9.66 High 1.50-8.10 k/uL LAB ALYM(LOINC) Abs. Lymph 0.83 Low 1.10-3.70 k/uL LAB AMONO(LOINC) Abs. Monocyte 1.03 0.10-1.20 k/u L LAB AEO(LOINC) Abs. Eosinophil <0.03 0.00-0.44 k/uL LAB ABASO(LOINC) Abs. Basophil <0.03 0.00-0.20 k/u L LAB AIGRAN(LOINC) Abs.Imm.Granul ocyte 0.09 0.00-0.30 k/uL Performed By: #### BMPX, CDP #### [facility] [address] [place] [address] Cnc Maintenance Technician: Sarath Olivera MD XR CHEST PORTABLE Observed: 01/08/2024 7:03 AM Status: F Source: [facility] EXAMINATION: ONE XRAY VIEW OF THE CHEST [...] by: Berhane Pressley MD 01/08/24 Final result BASIC METAB W/RFX MG Collected: 01/08/2024 4:20 AM S tatus: F Source: [facility] TYPE CODE TESTS RESULT OUT OF RANGE REFERENCE UNITS LAB NA(LOINC) NA (Sodium) 142 136-145 mmol/L LAB K(LOINC) K (Potassium) 5.1 3.7-5.3 mmol/L LAB CL(LOINC) Chloride 114 High 98-107 mmol/L LAB HCO(LOINC) CO2 20 20-31 mmol/L LAB GAP(LOINC) Anion Gap 8 Low 9-16 mmol/L LAB GLU(LOINC) Glucose 158 High 74-99 mg/dL LAB BUN(LOINC) BUN (Urea N) 31 High 8-23 mg/dL LAB CRE(LOINC) Creatinine 1.1 High 0.50-0.90 mg/dL LAB EGFR(LOINC) eGFR 48 Low >60 mL/min/1. 73m2 Result Comment: These results are not intended [...] following therapy that affects renal tubular secretion. LAB CA(LOINC) Calcium 7.6 Low 8.6-10.4 mg/dL Performed By: #### BMPX, SRAVANTHI , CDP, MG, IOCAL #### [facility] [address] [place] [id number] Cnc Maintenance Technician: Sarath Olivera MD MAGNESIUM Collected: 4:20 AM Status: F Source: [facility] TYPE CODE TESTS RESULT OUT OF RANGE REFERENCE UNITS LAB MG(LOINC) Magnesium 2.0 1.6-2.4 mg/dL Performed By: #### BMPX, SRAVANTHI , CDP, MG, IOCAL #### [facility] [address] [place] [id number] Cnc Maintenance Technician: Sarath Olivera MD PHOSPHORUS, INORG. Collected: 01/08/2024 4:20 AM Sta tus: F Source: [facility] TYPE CODE TESTS RESULT OUT OF RANGE REFERENCE UNITS LAB SRAVANTHI(LOINC) Phosphorus, Inorg. 1.9 Low 2.5-4.5 mg/dL Performed By: #### BMPX, SRAVANTHI , CDP, MG, IOCAL #### [facility] [address] [place] [id number] Cnc Maintenance Technician: Sarath Olivera MD CALCIUM, IONIC Collected: 4:20 AM Status: F Source: [facility] TYPE CODE TESTS RESULT OUT OF RANGE REFERENCE UNITS LAB IOCA(LOINC) Calcium, Ionic 1.12 Low 1.13-1.33 mmol/L Performed By: #### BMPX, SRAVANTHI , CDP, MG, IOCAL #### [facility] [address] [place] [id number] Cnc Maintenance Technician: Sarath Olivera MD CBC WITH DIFF Collected: 4:20 AM Status: F Source: [facility] TYPE CODE TESTS RESULT OUT OF RANGE REFERENCE UNITS LAB WBC(LOINC) WBC Count 12.7 High 3.5-11.3 k/uL LAB RBC(LOINC) RBC Count 2.82 Low 3.95-5.11 m/uL LAB HGB(LOINC) Hemoglobin 8.4 Low 11.9-15.1 g/dL LAB HCT(LOINC) Hematocrit 26.2 Low 36.3-47.1 % LAB MCV(LOINC) MCV 92.9 82.6-102.9 fL LAB MCH(LOINC) MCH 29.8 25.2-33.5 pg LAB MCHC(LOINC) MCHC 32.1 28.4-34.8 g/dL LAB RDW(LOINC) RDW 15.8 High 11.8-14.4 % LAB PLT(LOINC) Platelet Count See Reflexed IPF Result 138-453 k/uL LAB PLTFL(LOINC) Platelet, Fluoresc. 65 Low 138-453 k/uL LAB IPLTF(LOINC) PLT, Immature Fract. 11.2 High 1.1-10.3 % LAB NRBCS(LOINC) NRBC Automated 0.3 High 0.0 per 100 WBC LAB IGRAN(LOINC) Immature Granulocyte 1 High 0 % LAB SEG(LOINC) Neutrophil (Seg) 84 High 36-66 % LAB LYM(LOINC) Lymphocyte 4 Low 24-44 % LAB MON(LOINC) Monocyte 11 High 1-7 % LAB EO(LOINC) Eosinophil 0 Low 1-4 % LAB BASO(LOINC) Basophil 0 0-2 % LAB AIGRAN(LOINC) Abs.Imm.Granul ocyte 0.13 0.00-0.30 k/uL LAB ASEG(LOINC) Abs.Neutrophil (Seg) 10.66 High 1.8-7.7 k/uL LAB ALYM(LOINC) Abs. Lymph 0.51 Low 1.0-4.8 k/uL LAB AMONO(LOINC) Abs. Monocyte 1.40 High 0.1-0.8 k/uL LAB AEO(LOINC) Abs. Eosinophil 0.00 0.0-0.4 k/uL LAB ABASO(LOINC) Abs. Basophil 0.00 0.0-0.2 k/uL LAB MORPH(LOINC) Morphology ANISOCYTOSIS PRESENT Performed By: #### BMPX, SRAVANTHI , CDP, MG, IOCAL #### [facility] [id number] Cnc Maintenance Technician: Sarath Olivera MD ARTERIAL BLD GAS,POC Collected: 11:35 AM Status: F Source: [facility] TYPE CODE TESTS RESULT OUT OF RANGE REFERENCE UNITS LAB PHOAP(LOINC) pH, Arterial 7.374 7.350-7.450 LAB PCO2AP(LOINC) pCO2, Arterial 34.6 Low 35.0-48.0 mm Hg LAB PO2AP(LOINC) pO2, Arterial 155.4 High 83.0-108.0 mm Hg LAB HCOOA(LOINC) Bicarbonate,A rterial (calc) 20.2 Low 21.0-28.0 mmol/L LAB NBEOA(LOINC) Negative Base Excess (calc) 4.5 High 0.0-2.0 mmol/L LAB SOOA(LOINC) O2 Sat, Art (calc) 99.4 High 94.0-98.0 % LAB SITEP(LOINC) Site Drawn Arterial Line LAB FIO2O(LOINC) FIO2 60.0 GLUCOSE (POC) Collected: 01/07/2024 11:35 AM Status: F Source: [facility] TYPE CODE TESTS RESULT OUT OF RANGE REFERENCE UNITS LAB GLUCO(LOINC) Glucose (POC) 161 High 74-100 mg/dL LACTIC ACID (POC) Collected: 01/07/2024 11:35 AM Sta tus: F Source: [facility] TYPE CODE TESTS RESULT OUT OF RANGE REFERENCE UNITS LAB LACOP(LOINC) Lactic Acid (POC) 1.0 0.56-1.39 mmol/L XR CHEST PORTABLE Observed: 01/07/2024 8:34 AM Status: F Source: [facility] EXAMINATION: ONE XRAY VIEW OF THE CHEST [...] by: Mayelin Reynolds MD 01/07/24 Final result GLUCOSE,WHOLE BLOOD Collected: 01/07/20 6:53 AM Status: F Source: [facility] TYPE CODE TESTS RESULT OUT OF RANGE REFERENCE UNITS LAB FGLU(LOINC) Glucose,Whol e Blood 142 High 65-105 mg/dL ARTERIAL BLD GAS,POC Collected: 01/07/2024 5:47 AM S tatus: F Source: [facility] TYPE CODE TESTS RESULT OUT OF RANGE REFERENCE UNITS LAB PHOAP(LOINC) pH, Arterial 7.333 Low 7.350-7.450 LAB PCO2AP(LOINC) pCO2, Arterial 39.8 35.0-48.0 m m Hg LAB PO2AP(LOINC) pO2, Arterial 100.9 83.0-108.0 mm Hg LAB HCOOA(LOINC) Bicarbonate,Ar terial (calc) 21.2 21.0-28.0 mmol/L LAB NBEOA(LOINC) Negative Base Excess (calc) 4.4 High 0.0-2.0 mmol/L LAB SOOA(LOINC) O2 Sat, Art (calc) 97.4 94.0-98.0 % LAB FIO2O(LOINC) FIO2 70.0 GLUCOSE (POC) Collected: 01/07/2024 5:47 AM Status: F Source: [facility] TYPE CODE TESTS RESULT OUT OF RANGE REFERENCE UNITS LAB GLUCO(LOINC) Glucose (POC) 143 High 74-100 mg/dL LACTIC ACID (POC) Collected: 01/07/2024 5:47 AM Stat us: F Source: [facility] TYPE CODE TESTS RESULT OUT OF RANGE REFERENCE UNITS LAB LACOP(LOINC) Lactic Acid (POC) 1.0 0.56-1.39 mmol/L BASIC METAB W/RFX MG Collected: 01/07/2024 3:45 AM S tatus: F Source: [facility] TYPE CODE TESTS RESULT OUT OF RANGE REFERENCE UNITS LAB NA(LOINC) NA (Sodium) 143 136-145 mmol/L LAB K(LOINC) K (Potassium) 4.2 3.7-5.3 mmol/L LAB CL(LOINC) Chloride 115 High 98-107 mmol/L LAB HCO(LOINC) CO2 20 20-31 mmol/L LAB GAP(LOINC) Anion Gap 8 Low 9-16 mmol/L LAB GLU(LOINC) Glucose 150 High 74-99 mg/dL LAB BUN(LOINC) BUN (Urea N) 36 High 8-23 mg/dL LAB CRE(LOINC) Creatinine 1.3 High 0.50-0.90 mg/dL LAB EGFR(LOINC) eGFR 41 Low >60 mL/min/1. 73m2 Result Comment: These results are not intended [...] following therapy that affects renal tubular secretion. LAB CA(LOINC) Calcium 7.7 Low 8.6-10.4 mg/dL Performed By: #### BMPX, SRAVANTHI , MG, CDP #### [facility] [address] [place] [phone] Cnc Maintenance Technician: Sarath Olivera MD MAGNESIUM Collected: 3:45 AM Status: F Source: [facility] TYPE CODE TESTS RESULT OUT OF RANGE REFERENCE UNITS LAB MG(LOINC) Magnesium 1.9 1.6-2.4 mg/dL Performed By: #### BMPX, SRAVANTHI , MG, CDP #### [facility] [address] [place] [address] [phone] Cnc Maintenance Technician: Sarath Olivera MD PHOSPHORUS, INORG. Collected: 01/07/2024 3:45 AM Sta tus: F Source: [facility] TYPE CODE TESTS RESULT OUT OF RANGE REFERENCE UNITS LAB SRAVANTHI(LOINC) Phosphorus, Inorg. 3.1 2.5-4.5 mg/dL Performed By: #### BMPX, SRAVANTHI , MG, CDP #### [facility] [place], [place] [phone] Cnc Maintenance Technician: Sarath Olivera MD CBC WITH DIFF Collected: 4 3:45 AM Status: F Source: [facility] TYPE CODE TESTS RESULT OUT OF RANGE REFERENCE UNITS LAB WBC(LOINC) WBC Count 9.9 3.5-11.3 k/uL LAB RBC(LOINC) RBC Count 2.74 Low 3.95-5.11 m/uL LAB HGB(LOINC) Hemoglobin 8.3 Low 11.9-15.1 g/dL LAB HCT(LOINC) Hematocrit 25.3 Low 36.3-47.1 % LAB MCV(LOINC) MCV 92.3 82.6-102.9 fL LAB MCH(LOINC) MCH 30.3 25.2-33.5 pg LAB MCHC(LOINC) MCHC 32.8 28.4-34.8 g/dL LAB RDW(LOINC) RDW 14.8 High 11.8-14.4 % LAB PLT(LOINC) Platelet Count See Reflexed IPF Result 138-453 k/uL LAB PLTFL(LOINC) Platelet, Fluoresc. 70 Low 138-453 k/uL LAB IPLTF(LOINC) PLT, Immature Fract. 10.5 High 1.1-10.3 % LAB NRBCS(LOINC) NRBC Automated 0.0 0.0 per 100 WBC LAB IGRAN(LOINC) Immature Granulocyte 0 0 % LAB SEG(LOINC) Neutrophil (Seg) 89 High 36-66 % LAB LYM(LOINC) Lymphocyte 7 Low 24-44 % LAB MON(LOINC) Monocyte 4 1-7 % LAB EO(LOINC) Eosinophil 0 Low 1-4 % LAB BASO(LOINC) Basophil 0 0-2 % LAB AIGRAN(LOINC) Abs.Imm.Granul ocyte 0.00 0.00-0.30 k/uL LAB ASEG(LOINC) Abs.Neutrophil (Seg) 8.81 High 1.8-7.7 k/uL LAB ALYM(LOINC) Abs. Lymph 0.69 Low 1.0-4.8 k/uL LAB AMONO(LOINC) Abs. Monocyte 0.40 0.1-0.8 k/uL LAB AEO(LOINC) Abs. Eosinophil 0.00 0.0-0.4 k/uL LAB ABASO(LOINC) Abs. Basophil 0.00 0.0-0.2 k/uL LAB MORPH(LOINC) Morphology ANISOCYTOSIS PRESENT Result Comment: INCREASED BA NDS PRESENT Performed By: #### BMPX, SRAVANTHI , MG, CDP #### [facility] [place], [place] [phone] Cnc Maintenance Technician: Sarath Olivera MD XR CHEST PORTABLE Observed: 01/07/2024 3:27 AM Status: F Source: [facility] EXAMINATION: ONE XRAY VIEW OF THE CHEST [...] by: Deon Webb MD 01/07/24 Final result GLUCOSE,WHOLE BLOOD Collected: 01/07/20 2:55 AM Status: F Source: [facility] TYPE CODE TESTS RESULT OUT OF RANGE REFERENCE UNITS LAB FGLU(LOINC) Glucose,Whol e Blood 145 High 65-105 mg/dL CALCIUM, IONIC Collected: 2:36 AM Status: F Source: [facility] TYPE CODE TESTS RESULT OUT OF RANGE REFERENCE UNITS LAB IOCA(LOINC) Calcium, Ionic 1.13 1.13-1.33 mmol/L Performed By: #### IOCAL ### # [facility] [address] [place] [id number] Cnc Maintenance Technician: Sarath Olivera MD ARTERIAL BLD GAS,POC Collected: 01/07/2024 2:07 AM S tatus: F Source: [facility] TYPE CODE TESTS RESULT OUT OF RANGE REFERENCE UNITS LAB PHOAP(LOINC) pH, Arterial 7.353 7.350-7.450 LAB PCO2AP(LOINC) pCO2, Arterial 37.9 35.0-48.0 mm Hg LAB PO2AP(LOINC) pO2, Arterial 96.9 83.0-108.0 mm Hg LAB HCOOA(LOINC) Bicarbonate,A rterial (calc) 21.0 21.0-28.0 mmol/L LAB NBEOA(LOINC) Negative Base Excess (calc) 4.1 High 0.0-2.0 mmol/L LAB SOOA(LOINC) O2 Sat, Art (calc) 97.2 94.0-98.0 % LAB SITEP(LOINC) Site Drawn Arterial Line LAB FIO2O(LOINC) FIO2 80.0 GLUCOSE (POC) Collected: 01/07/2024 2:07 AM Status: F Source: [facility] TYPE CODE TESTS RESULT OUT OF RANGE REFERENCE UNITS LAB GLUCO(LOINC) Glucose (POC) 157 High 74-100 mg/dL LACTIC ACID (POC) Collected: 01/07/2024 2:07 AM Stat us: F Source: [facility] TYPE CODE TESTS RESULT OUT OF RANGE REFERENCE UNITS LAB LACOP(LOINC) Lactic Acid (POC) 1.1 0.56-1.39 mmol/L ARTERIAL BLD GAS,POC Collected: 024 11:40 PM Status: F Source: [facility] TYPE CODE TESTS RESULT OUT OF RANGE REFERENCE UNITS LAB PHOAP(LOINC) pH, Arterial 7.406 7.350-7.450 LAB PCO2AP(LOINC) pCO2, Arterial 32.9 Low 35.0-48.0 mm Hg LAB PO2AP(LOINC) pO2, Arterial 164.9 High 83.0-108.0 mm Hg LAB HCOOA(LOINC) Bicarbonate,A rterial (calc) 20.7 Low 21.0-28.0 mmol/L LAB NBEOA(LOINC) Negative Base Excess (calc) 3.5 High 0.0-2.0 mmol/L LAB SOOA(LOINC) O2 Sat, Art (calc) 99.5 High 94.0-98.0 % LAB SITEP(LOINC) Site Drawn Arterial Line LAB FIO2O(LOINC) FIO2 100.0 GLUCOSE (POC) Collected: 01/06/2024 11:40 PM Status: F Source: [facility] TYPE CODE TESTS RESULT OUT OF RANGE REFERENCE UNITS LAB GLUCO(LOINC) Glucose (POC) 150 High 74-100 mg/dL LACTIC ACID (POC) Collected: 01/06/2024 11:40 PM Sta tus: F Source: [facility] TYPE CODE TESTS RESULT OUT OF RANGE REFERENCE UNITS LAB LACOP(LOINC) Lactic Acid (POC) 1.3 0.56-1.39 mmol/L XR SHOULDER LEFT (MIN 2 VIEWS) Observed: 01/06/2024 11:19 PM Status: F Source: [facility] EXAMINATION: 3 XRAY VIEWS OF THE LEFT [...] by: Chevy Parra MD 01/06/24 Final result XR FEMUR RIGHT (MIN 2 VIEWS) Observed: 01/06/2024 11:17 PM Status: F Source: [facility] EXAMINATION: 4 XRAY VIEWS OF THE RIGHT [...] by: Chevy Parra MD 01/06/24 Final result XR CHEST PORTABLE Observed: 01/06/2024 11:12 PM Status: F Source: [facility] EXAMINATION: ONE XRAY VIEW OF THE CHEST [...] by: Chevy Parra MD 01/06/24 Final result PT Collected: 01/06/2024 10:38 PM Status: F Source: [facility] TYPE CODE TESTS RESULT OUT OF RANGE REFERENCE UNITS LAB PTR(LOINC) Prothrombin Time 17.3 High 11.7-14.9 se c LAB INR(LOINC) INR 1.4 Result Comment: Therapeutic Range: Moderate Anticoagulant Intensity: INR = 2.0-3.0 High Anticoagulant Intensity: INR = 2.5-3.5 Performed By: #### BMP, IOCA L, CDP, PT, MG, SRAVANTHI #### [facility] [address] [place] [address] Cnc Maintenance Technician: Sarath Olivera MD BASIC METABOLIC PROF Collected: 024 10:38 PM Status: F Source: [facility] TYPE CODE TESTS RESULT OUT OF RANGE REFERENCE UNITS LAB NA(LOINC) NA (Sodium) 142 136-145 mmol/L LAB K(LOINC) K (Potassium) 4.4 3.7-5.3 mmol/L LAB CL(LOINC) Chloride 114 High 98-107 mmol/L LAB HCO(LOINC) CO2 19 Low 20-31 mmol/L LAB GAP(LOINC) Anion Gap 9 9-16 mmol/L LAB GLU(LOINC) Glucose 147 High 74-99 mg/dL LAB BUN(LOINC) BUN (Urea N) 36 High 8-23 mg/dL LAB CRE(LOINC) Creatinine 1.4 High 0.50-0.90 mg/dL LAB EGFR(LOINC) eGFR 38 Low >60 mL/min/1. 73m2 Result Comment: These results are not intended [...] following therapy that affects renal tubular secretion. LAB CA(LOINC) Calcium 8.0 Low 8.6-10.4 mg/dL Performed By: #### BMP, IOCA L, CDP, PT, MG, SRAVANTHI #### [facility] [address] [place] [phone] Cnc Maintenance Technician: Sarath Olivera MD MAGNESIUM Collected: 4 10:38 PM Status: F Source: [facility] TYPE CODE TESTS RESULT OUT OF RANGE REFERENCE UNITS LAB MG(LOINC) Magnesium 1.9 1.6-2.4 mg/dL Performed By: #### BMP, IOCA L, CDP, PT, MG, SRAVANTHI #### [facility] [address] [place] [phone] Cnc Maintenance Technician: Sarath Olivera MD PHOSPHORUS, INORG. Collected: 4 10:38 PM Status: F Source: [facility] TYPE CODE TESTS RESULT OUT OF RANGE REFERENCE UNITS LAB SRAVANTHI(LOINC) Phosphorus, Inorg. 3.2 2.5-4.5 mg/dL Performed By: #### BMP, IOCA L, CDP, PT, MG, SRAVANTHI #### [facility] [address] [place] [phone] Cnc Maintenance Technician: Sarath Olivera MD CALCIUM, IONIC Collected: 4 10:38 PM Status: F Source: [facility] TYPE CODE TESTS RESULT OUT OF RANGE REFERENCE UNITS LAB IOCA(LOINC) Calcium, Ionic 1.14 1.13-1.33 mmol/L Performed By: #### BMP, IOCA L, CDP, PT, MG, SRAVANTHI #### [facility] [phone] Cnc Maintenance Technician: Sarath Olivera MD CBC WITH DIFF Collected: 4 10:38 PM Status: F Source: [facility] TYPE CODE TESTS RESULT OUT OF RANGE REFERENCE UNITS LAB WBC(LOINC) WBC Count 10.3 3.5-11.3 k/uL LAB RBC(LOINC) RBC Count 2.92 Low 3.95-5.11 m/uL LAB HGB(LOINC) Hemoglobin 9.0 Low 11.9-15.1 g/dL LAB HCT(LOINC) Hematocrit 26.9 Low 36.3-47.1 % LAB MCV(LOINC) MCV 92.1 82.6-102.9 fL LAB MCH(LOINC) MCH 30.8 25.2-33.5 pg LAB MCHC(LOINC) MCHC 33.5 28.4-34.8 g/dL LAB RDW(LOINC) RDW 14.5 High 11.8-14.4 % LAB PLT(LOINC) Platelet Count 66 Low 138-453 k/uL LAB MPVX(LOINC) MPV 12.9 8.1-13.5 fL LAB NRBCS(LOINC) NRBC Automated 0.0 0.0 per 100 WBC LAB IGRAN(LOINC) Immature Granulocyte 0 0 % LAB SEG(LOINC) Neutrophil (Seg) 90 High 36-66 % LAB LYM(LOINC) Lymphocyte 5 Low 24-44 % LAB MON(LOINC) Monocyte 5 1-7 % LAB EO(LOINC) Eosinophil 0 Low 1-4 % LAB BASO(LOINC) Basophil 0 0-2 % LAB AIGRAN(LOINC) Abs.Imm.Granulo cyte 0.00 0.00-0.30 k/uL LAB ASEG(LOINC) Abs.Neutrophil (Seg) 9.26 High 1.8-7.7 k/uL LAB ALYM(LOINC) Abs. Lymph 0.52 Low 1.0-4.8 k/uL LAB AMONO(LOINC) Abs. Monocyte 0.52 0.1-0.8 k/uL LAB AEO(LOINC) Abs. Eosinophil 0.00 0.0-0.4 k/uL LAB ABASO(LOINC) Abs. Basophil 0.00 0.0-0.2 k/uL LAB MORPH(LOINC) Morphology Normal Performed By: #### BMP, IOCA L, CDP, PT, MG, SRAVANTHI #### [facility] [place], [place] [phone] Cnc Maintenance Technician: Sarath Olivera MD GL HEMOSTASIS TEG W/LYSIS Collected: 10:38 PM Status: F Source: [facility] TYPE CODE TESTS RESULT OUT OF RANGE REFERENCE UNITS LAB RTEG(LOINC) R(Reaction Time) TEG 5.7 4.6-9.1 min LAB LY30(LOINC) LY30 (Lysis) TEG 1.0 0.0-2.6 % LAB MARTEG(INC) MA Rapid TEG 54.9 52.0-70 mm LAB MAFF(LOINC) Fibrinogen, Func TEG 17.9 15.0-32.0 mm Performed By: #### GHLTEG ## ## [facility] [place], [place] [phone] Cnc Maintenance Technician: Sarath Olivera MD ARTERIAL BLD GAS,POC Collected: 024 10:31 PM Status: F Source: [facility] TYPE CODE TESTS RESULT OUT OF RANGE REFERENCE UNITS LAB PHOAP(LOINC) pH, Arterial 7.421 7.350-7.450 LAB PCO2AP(LOINC) pCO2, Arterial 29.3 Low 35.0-48.0 mm Hg LAB PO2AP(LOINC) pO2, Arterial 142.4 High 83.0-108.0 mm Hg LAB HCOOA(LOINC) Bicarbonate,A rterial (calc) 19.1 Low 21.0-28.0 mmol/L LAB NBEOA(LOINC) Negative Base Excess (calc) 4.6 High 0.0-2.0 mmol/L LAB SOOA(LOINC) O2 Sat, Art (calc) 99.3 High 94.0-98.0 % LAB SITEP(LOINC) Site Drawn Arterial Line LAB FIO2O(LOINC) FIO2 100.0 GLUCOSE (POC) Collected: 01/06/2024 10:31 PM Status: F Source: [facility] TYPE CODE TESTS RESULT OUT OF RANGE REFERENCE UNITS LAB GLUCO(LOINC) Glucose (POC) 146 High 74-100 mg/dL LACTIC ACID (POC) Collected: 01/06/2024 10:31 PM Sta tus: F Source: [facility] TYPE CODE TESTS RESULT OUT OF RANGE REFERENCE UNITS LAB LACOP(LOINC) Lactic Acid (POC) 1.5 High 0.56-1.39 mmol/L FLUORO FOR SURGICAL PROCEDURES Observed: 01/06/2024 9:13 PM Status: F Source: [facility] Radiology exam is complete. No Radiologist dictation. Please follow up with ordering provider. Final result OPEN HEART PANEL Collected: 8:44 PM Status: F Source: [facility] TYPE CODE TESTS RESULT OUT OF RANGE REFERENCE UNITS LAB PHGAS(LOINC) pH 7.304 Low 7.350-7.450 LAB PCO2(LOINC) pCO2 40.0 32-45 mmHg LAB PO2(LOINC) pO2 106.0 High 75-95 mmHg LAB HCO3(LOINC) HCO3 19.3 Low 22-27 mmol/L LAB NBEX(LOINC) Negative Base Excess 6.1 High 0.0-2.0 mmol/L LAB O2SAT(LOINC) O2 Saturation 97.7 94-100 % LAB COHB(LOINC) Carboxy Hgb 0.8 0-5 % Result Comment: Reference Range: Non-Smokers 0-2% Average Smoker 2-4% Heavy Smoker <10% LAB TEMP(LOINC) Body Temp. 37.0 LAB JERRELL(LOINC) Jerrell Test INFORMATION NOT PROVIDED LAB FIO2(LOINC) FIO2 50% LAB CVHGB(LOINC) Hemoglobin 8.2 Low 11.9-15.1 gm/dL LAB CVHCT(LOINC) Hematocrit 25.5 Low 36.3-47.1 % LAB GLUO(LOINC) Glucose,Whole Blood 138 High 65-105 mg/dL LAB WBCL(LOINC) Chloride - Whole Bl 116 High 98-110 mmol/L LAB WBK(LOINC) Potassium - Whole Bl 4.6 3.6-5.0 mmol/L LAB WBNA(LOINC) Sodium - Whole Blood 142 136-145 mmol/L Performed By: #### IOCAL, AMINA CTIC, OHP #### [facility] [address] [place] [address] [phone] Cnc Maintenance Technician: Sarath Olivera MD CALCIUM, IONIC Collected: 4 8:44 PM Status: F Source: [facility] TYPE CODE TESTS RESULT OUT OF RANGE REFERENCE UNITS LAB IOCA([facility]) Calcium, Ionic 1.45 High 1.13-1.33 mmol/L Performed By: #### IOCAL, AMINA CTIC, OHP #### [facility] [address] [place] [address] [phone] Cnc Maintenance Technician: Sarath Olivera MD LACTIC ACID Collected: 4 8:44 PM Status: F Source: [facility] TYPE CODE TESTS RESULT OUT OF RANGE REFERENCE UNITS LAB LACWB(INC) Lactic Acid,Whole Bl 2.8 High 0.7-2.1 mmol/L Performed By: #### IOCAL, AMINA CTIC, OHP #### [facility] [employer] [address] [place] [address] [phone] Cnc Maintenance Technician: Sarath Olivera MD OPEN HEART PANEL Collected: 4 8:07 PM Status: F Source: [facility] TYPE CODE TESTS RESULT OUT OF RANGE REFERENCE UNITS LAB PHGAS(LOINC) pH 7.246 Low 7.350-7.450 LAB PCO2(LOINC) pCO2 42.6 32-45 mmHg LAB PO2(LOINC) pO2 102.0 High 75-95 mmHg LAB HCO3(LOINC) HCO3 17.8 Low 22-27 mmol/L LAB NBEX(LOINC) Negative Base Excess 8.4 High 0.0-2.0 mmol/L LAB O2SAT(LOINC) O2 Saturation 96.8 94-100 % LAB COHB(LOINC) Carboxy Hgb 1.6 0-5 % Result Comment: Reference Range: Non-Smokers 0-2% Average Smoker 2-4% Heavy Smoker <10% LAB TEMP([facility]) Body Temp. 36.0 LAB JERRELL([facility]) Jerrell Test INFORMATION NOT PROVIDED LAB FIO2([facility]) FIO2 70% LAB CVHGB([facility]) Hemoglobin 8.2 Low 11.9-15.1 gm/dL LAB CVHCT([facility]) Hematocrit 25.6 Low 36.3-47.1 % LAB GLUO([facility]) Glucose,Whole Blood 138 High 65-105 mg/dL LAB WBCL([facility]) Chloride - Whole Bl 115 High 98-110 mmol/L LAB WBK([facility]) Potassium - Whole Bl 4.5 3.6-5.0 mmol/L LAB WBNA([facility]) Sodium - Whole Blood 140 136-145 mmol/L Performed By: #### OHP, LACT IC, IOCAL #### [facility] [employer] [address] [place] [address] [phone] Cnc Maintenance Technician: Sarath Olivera MD CALCIUM, IONIC Collected: 8:07 PM Status: F Source: [facility] TYPE CODE TESTS RESULT OUT OF RANGE REFERENCE UNITS LAB IOCA([facility]) Calcium, Ionic 1.07 Low 1.13-1.33 mmol/L Performed By: #### OHP, LACT IC, IOCAL #### [facility] [employer] [address] [place] [address] [phone] Cnc Maintenance Technician: Sarath Olivera MD LACTIC ACID Collected: 8:07 PM Status: F Source: [facility] TYPE CODE TESTS RESULT OUT OF RANGE REFERENCE UNITS LAB LACWB([facility]) Lactic Acid,Whole Bl 1.8 0.7-2.1 mmol/L Performed By: #### OHP, LACT IC, IOCAL #### [facility] [employer] [address] [place] [address] [phone] Cnc Maintenance Technician: Sarath Olivera MD GL HEMOSTASIS TEG W/LYSIS Collected: 01/06/2024 6:11 PM Status: F Source: [facility] TYPE CODE TESTS RESULT OUT OF RANGE REFERENCE UNITS LAB RTEG(LOINC) R(Reaction Time) TEG 6.0 4.6-9.1 min LAB LY30(LOINC) LY30 (Lysis) TEG 0.4 0.0-2.6 % LAB MARTEG(LOINC) MA Rapid TEG 61.6 52.0-70 mm LAB MAFF(LOINC) Fibrinogen, Func TEG 20.5 15.0-32.0 mm Performed By: #### GHLTEG ## ## [facility] [employer] [facility] [place] [address] Cnc Maintenance Technician: Sarath Olivera MD CBC WITH DIFF Collected: 4 6:11 PM Status: F Source: [facility] TYPE CODE TESTS RESULT OUT OF RANGE REFERENCE UNITS LAB WBC(LOINC) WBC Count 15.1 High 3.5-11.3 k/uL LAB RBC(LOINC) RBC Count 2.50 Low 3.95-5.11 m/uL LAB HGB(LOINC) Hemoglobin 7.7 Low 11.9-15.1 g/dL LAB HCT(LOINC) Hematocrit 25.3 Low 36.3-47.1 % LAB MCV(LOINC) MCV 101.2 82.6-102.9 fL LAB MCH(LOINC) MCH 30.8 25.2-33.5 pg LAB MCHC(LOINC) MCHC 30.4 28.4-34.8 g/dL LAB RDW(LOINC) RDW 14.9 High 11.8-14.4 % LAB PLT(LOINC) Platelet Count 97 Low 138-453 k/uL LAB MPVX(LOINC) MPV 12.7 8.1-13.5 fL LAB NRBCS(LOINC) NRBC Automated 0.0 0.0 per 100 WBC LAB IGRAN(LOINC) Immature Granulocyte 0 0 % LAB SEG(LOINC) Neutrophil (Seg) 82 High 36-65 % LAB LYM(LOINC) Lymphocyte 6 Low 24-43 % LAB MON(LOINC) Monocyte 12 3-12 % LAB EO(LOINC) Eosinophil 0 Low 1-4 % LAB BASO(LOINC) Basophil 0 0-2 % LAB AIGRAN(LOINC) Abs.Imm.Granul ocyte 0.00 0.00-0.30 k/uL LAB ASEG(LOINC) Abs.Neutrophil (Seg) 12.38 High 1.50-8.10 k/uL LAB ALYM(LOINC) Abs. Lymph 0.91 Low 1.10-3.70 k/uL LAB AMONO(LOINC) Abs. Monocyte 1.81 High 0.10-1.20 k/u L LAB AEO(LOINC) Abs. Eosinophil 0.00 0.00-0.44 k/uL LAB ABASO(LOINC) Abs. Basophil 0.00 0.00-0.20 k/u L LAB MORPH(LOINC) Morphology ANISOCYTOSIS PRESENT Performed By: #### CDP #### [employer] [facility] [place] [address] Cnc Maintenance Technician: Sarath Olivera MD ARTERIAL BLD GAS,POC Collected: 01/06/2024 4:40 PM S tatus: F Source: [facility] TYPE CODE TESTS RESULT OUT OF RANGE REFERENCE UNITS LAB PHOAP(LOINC) pH, Arterial 7.395 7.350-7.450 LAB PCO2AP(LOINC) pCO2, Arterial 30.6 Low 35.0-48.0 m m Hg LAB PO2AP(LOINC) pO2, Arterial 57.8 Low 83.0-108.0 mm Hg LAB HCOOA(LOINC) Bicarbonate,Ar terial (calc) 18.8 Low 21.0-28.0 mmol/L LAB NBEOA(LOINC) Negative Base Excess (calc) 5.5 High 0.0-2.0 mmol/L LAB SOOA(LOINC) O2 Sat, Art (calc) 90.0 Low 94.0-98.0 % LAB O2DELO(LOINC) O2 Device Cannula LAB SITEP(LOINC) Site Drawn Right Radial Artery LAB FIO2O(LOINC) FIO2 3.0 LACTIC ACID (POC) Collected: 01/06/2024 4:40 PM Stat us: F Source: [facility] TYPE CODE TESTS RESULT OUT OF RANGE REFERENCE UNITS LAB LACOP(LOINC) Lactic Acid (POC) 1.7 High 0.56-1.39 mmol/L XR CHEST PORTABLE Observed: 01/06/2024 1:09 PM Status: F Source: [facility] EXAMINATION: ONE XRAY VIEW OF THE CHEST [...] 3. Cardiomegaly. Mild congestive changes. Interpreted by: Juaquin Godoy MD Signed by: Juaquin Godoy MD 01/06/24 Final result HGB/HCT Collected: 12:58 PM Status: F Source: [facility] TYPE CODE TESTS RESULT OUT OF RANGE REFERENCE UNITS LAB HGB(LOINC) Hemoglobin 8.6 Low 11.9-15.1 g/dL LAB HCT(LOINC) Hematocrit 29.1 Low 36.3-47.1 % Performed By: #### ALB, FT4, TSHX, GLYHGB, HH, VD25 #### [employer] [address] [place] [id number] Cnc Maintenance Technician: Sarath Olivera MD ALBUMIN Collected: 12:58 PM Status: F Source: [facility] TYPE CODE TESTS RESULT OUT OF RANGE REFERENCE UNITS LAB ALB(LOINC) Albumin 2.8 Low 3.5-5.2 g/dL Performed By: #### ALB, FT4, TSHX, GLYHGB, HH, VD25 #### [employer] [address] [place] [address] [id number] Cnc Maintenance Technician: Sarath Olivera MD THYROXINE, FREE Collected: 12:58 PM Status: F Source: [facility] TYPE CODE TESTS RESULT OUT OF RANGE REFERENCE UNITS LAB FT4(LOINC) Thyroxine, Free 0.9 Low 0.92-1.68 ng/dL Performed By: #### ALB, FT4, TSHX, GLYHGB, HH, VD25 #### [facility] [employer] [address] [place] [phone] Cnc Maintenance Technician: Sarath Olivera MD TSH W/REFLEX TO FT4 Collected: 01/06/20 12:58 PM Status: F Source: [facility] TYPE CODE TESTS RESULT OUT OF RANGE REFERENCE UNITS LAB TSH([facility]) Thyroid Stim. Horm. 3.13 0.27-4.20 uIU/mL Performed By: #### ALB, FT4, TSHX, GLYHGB, HH, VD25 #### [address] [address] Cnc Maintenance Technician: Sarath Olivera MD VITAMIN D 25 [place] Collected: 12:58 PM Status: F Source: [facility] TYPE CODE TESTS RESULT OUT OF RANGE REFERENCE UNITS LAB VD25([facility]) Vitamin D 25 [place] 34.7 30.0-100.0 ng/mL Result Comment: Reference Range: Vitamin D status Range Deficiency <20 ng/mL Mild Deficiency 20-30 ng/mL Sufficiency 30-100 ng/mL Toxicity >100 ng/mL Performed By: #### ALB, FT4, TSHX, GLYHGB, HH, VD25 #### [facility] [employer] [address] [place] [address] [phone] Cnc Maintenance Technician: Sarath Olivera MD HEMOGLOBIN A1C Collected: 01/06/2024 12:58 PM Status : F Source: [facility] TYPE CODE TESTS RESULT OUT OF RANGE REFERENCE UNITS LAB PA1CM(LOINC) Hemoglobin A1C 5.5 4.0-6.0 % LAB EAG(LOINC) Estimated Ave Gluc 111 mg/dL Result Comment: The ADA and AACC recommend providing the estimated average glucose result to permit better patient understanding of their HBA1c result. Performed By: #### ALB, FT4, TSHX, GLYHGB, HH, VD25 #### [employer] [address] [place] [phone] Cnc Maintenance Technician: Sarath Olivera MD CT CHEST ABDOMEN PELVIS WO CONTRAST Observed: 01/06/2024 9:41 AM Status: F Source: [facility] EXAMINATION: CT OF THE CHEST, ABDOMEN, AND [...] from the splenic laceration. Urinary bladder catheterized. Peritoneum/Retroperitoneum: Pelvic free fluid representing blood as noted [...] by: Pierre Cao MD 01/06/[address] CYSTOGRAM W CONTRAST Observed: 2023 8:31 AM Status: F Source: [facility] EXAMINATION: CT CYSTOGRAM 01/06/2024 6:08 am TECHNIQUE: [...] by: Jose Todd MD 01/06/[address] HEAD WO CONTRAST Observed: 01/06/2024 8:19 AM Status: F Source: [facility] EXAMINATION: CT OF THE HEAD WITHOUT CONTRAST [...] by: Lucian Dee MD 01/06/24 Final result CALCIUM, IONIC Collected: 4:19 AM Status: F Source: [facility] TYPE CODE TESTS RESULT OUT OF RANGE REFERENCE UNITS LAB IOCA(LOINC) Calcium, Ionic 1.07 Low 1.13-1.33 mmol/L Performed By: #### IOCAL ### # [employer] [facility] [place] [address] Cnc Maintenance Technician: Sarath Olivera MD PT Collected: 01/06/2024 4:19 AM Status: F Source: [facility] TYPE CODE TESTS RESULT OUT OF RANGE REFERENCE UNITS LAB PTR(LOINC) Prothrombin Time 18.4 High 11.7-14.9 se c LAB INR(LOINC) INR 1.6 Result Comment: Therapeutic Range: Moderate Anticoagulant Intensity: INR = 2.0-3.0 High Anticoagulant Intensity: INR = 2.5-3.5 Performed By: #### PT, TROPI , VD25, LIVP #### [facility] [address] [place] [address] [phone] Cnc Maintenance Technician: Sarath Olivera MD LIVER PROFILE Collected: 4:19 AM Status: F Source: [facility] TYPE CODE TESTS RESULT OUT OF RANGE REFERENCE UNITS LAB ALB(LOINC) Albumin 3.0 Low 3.5-5.2 g/dL LAB ALP(LOINC) Alkaline Phos 61 35-104 U/L LAB ALT(LOINC) ALT 19 10-35 U/L LAB AST(LOINC) AST 62 High 10-35 U/L LAB TBIL(LOINC) Bilirubin, Total 0.3 0.00-1.20 mg/dL LAB DBILI(LOINC) Bilirubin, Direct <0.2 0.00-0.30 mg/dL LAB IBIL(LOINC) Bilirubin, Indirect Can not be calculated 0.0-1.0 mg/dL LAB TP(LOINC) Protein, Total 4.8 Low 6.6-8.7 g/dL LAB GLOB(LOINC) Globulin Fraction 1.8 g/dL LAB AG(LOINC) Albumin/Glob Ratio 2.0 1.0-2.5 Performed By: #### PT, TROPI , VD25, LIVP #### [facility] [employer] [address] [place] [phone] Cnc Maintenance Technician: Sarath Olivera MD TROPONIN Collected: 01/06/2024 4:19 AM Status: F Source: [facility] TYPE CODE TESTS RESULT OUT OF RANGE REFERENCE UNITS LAB HSTROP(LOINC) Troponin, High Sens 114 High alert 0-14 ng/L Result Comment: High Sensiti vity Troponin values cannot be compared with other Troponin methodologies. Performed By: #### PT, TROPI , VD25, LIVP #### [facility] [employer] [address] [place] [address] [phone] Cnc Maintenance Technician: Sarath Olivera MD VITAMIN D 25 [place] Collected: 4:19 AM Status: F Source: [facility] TYPE CODE TESTS RESULT OUT OF RANGE REFERENCE UNITS LAB VD25(LOINC) Vitamin D 25 [place] 34.3 30.0-100.0 ng/mL Result Comment: Reference Range: Vitamin D status Range Deficiency <20 ng/mL Mild Deficiency 20-30 ng/mL Sufficiency 30-100 ng/mL Toxicity >100 ng/mL Performed By: #### PT, TROPI , VD25, LIVP #### [facility] [place], [place] [phone] Cnc Maintenance Technician: Sarath Olivera MD GL HEMOSTASIS TEG W/LYSIS Collected: 01/06/2024 4:19 AM Status: F Source: [facility] TYPE CODE TESTS RESULT OUT OF RANGE REFERENCE UNITS LAB RTEG(LOINC) R(Reaction Time) TEG 5.7 4.6-9.1 min LAB LY30(LOINC) LY30 (Lysis) TEG 0.1 0.0-2.6 % LAB MARTEG(LOINC) MA Rapid TEG 62.3 52.0-70.0 mm LAB MAFF(LOINC) Fibrinogen, Func TEG 21.6 15.0-32.0 mm Performed By: #### GHLTEG ## ## [facility] [employer] [facility] [place], [place] [phone] Cnc Maintenance Technician: Sarath Olivera MD ARTERIAL BLD GAS,POC Collected: 01/06/2024 3:04 AM S tatus: F Source: [facility] TYPE CODE TESTS RESULT OUT OF RANGE REFERENCE UNITS LAB PHOAP(LOINC) pH, Arterial 7.199 Low alert 7.350-7.450 LAB PCO2AP(LOINC) pCO2, Arterial 32.3 Low 35.0-48.0 m m Hg LAB PO2AP(LOINC) pO2, Arterial 88.8 83.0-108.0 mm Hg LAB HCOOA(LOINC) Bicarbonate,Ar terial (calc) 12.6 Low 21.0-28.0 mmol/L LAB NBEOA(LOINC) Negative Base Excess (calc) 14.2 High 0.0-2.0 mmol/L LAB SOOA(LOINC) O2 Sat, Art (calc) 94.6 94.0-98.0 % LAB SITEP(LOINC) Site Drawn Right Radial Artery LAB FIO2O(LOINC) FIO2 5.0 GLUCOSE (POC) Collected: 01/06/2024 3:04 AM Status: F Source: [facility] TYPE CODE TESTS RESULT OUT OF RANGE REFERENCE UNITS LAB GLUCO(LOINC) Glucose (POC) 164 High 74-100 mg/dL LACTIC ACID (POC) Collected: 01/06/2024 3:04 AM Stat us: F Source: [facility] TYPE CODE TESTS RESULT OUT OF RANGE REFERENCE UNITS LAB LACOP(LOINC) Lactic Acid (POC) 7.2 High 0.56-1.39 mmol/L GLUCOSE,WHOLE BLOOD Collected: 01/06/20 2:56 AM Status: F Source: [facility] TYPE CODE TESTS RESULT OUT OF RANGE REFERENCE UNITS LAB FGLU(LOINC) Glucose,Whol e Blood 155 High 65-105 mg/dL PT Collected: 01/06/2024 2:33 AM Status: F Source: [facility] TYPE CODE TESTS RESULT OUT OF RANGE REFERENCE UNITS LAB PTR(LOINC) Prothrombin Time 17.8 High 11.7-14.9 se c LAB INR(LOINC) INR 1.5 Result Comment: Therapeutic Range: Moderate Anticoagulant Intensity: INR = 2.0-3.0 High Anticoagulant Intensity: INR = 2.5-3.5 Performed By: #### PT, BMPX, MG, SRAVANTHI, CDP #### [facility] [address] [place] [phone] Cnc Maintenance Technician: Sarath Olivera MD BASIC METAB W/RFX MG Collected: 01/06/2024 2:33 AM S tatus: F Source: [facility] TYPE CODE TESTS RESULT OUT OF RANGE REFERENCE UNITS LAB NA(LOINC) NA (Sodium) 143 136-145 mmol/L LAB K(LOINC) K (Potassium) 4.6 3.7-5.3 mmol/L LAB CL(LOINC) Chloride 110 High 98-107 mmol/L LAB HCO(LOINC) CO2 15 Low 20-31 mmol/L LAB GAP(LOINC) Anion Gap 18 High 9-16 mmol/L LAB GLU(LOINC) Glucose 173 High 74-99 mg/dL LAB BUN(LOINC) BUN (Urea N) 32 High 8-23 mg/dL LAB CRE(LOINC) Creatinine 1.9 High 0.50-0.90 mg/dL LAB EGFR(LOINC) eGFR 26 Low >60 mL/min/1. 73m2 Result Comment: These results are not intended [...] following therapy that affects renal tubular secretion. LAB CA(LOINC) Calcium 7.7 Low 8.6-10.4 mg/dL Performed By: #### PT, BMPX, MG, SRAVANTHI, CDP #### [facility] [address] [place] [phone] Cnc Maintenance Technician: Sarath Olivera MD MAGNESIUM Collected: 2:33 AM Status: F Source: [facility] TYPE CODE TESTS RESULT OUT OF RANGE REFERENCE UNITS LAB MG(LOINC) Magnesium 1.6 1.6-2.4 mg/dL Performed By: #### PT, BMPX, MG, SRAVANTHI, CDP #### [employer] [address] [place] [phone] Cnc Maintenance Technician: Sarath Olivera MD PHOSPHORUS, INORG. Collected: 01/06/2024 2:33 AM Sta tus: F Source: [facility] TYPE CODE TESTS RESULT OUT OF RANGE REFERENCE UNITS LAB SRAVANTHI(LOINC) Phosphorus, Inorg. 4.7 High 2.5-4.5 mg/dL Performed By: #### PT, BMPX, MG, SRAVANTHI, CDP #### [facility] [facility] [address] [place] [phone] Cnc Maintenance Technician: Sarath Olivera MD CBC WITH DIFF Collected: 01/06/2024 2:33 AM Status: F Source: [facility] TYPE CODE TESTS RESULT OUT OF RANGE REFERENCE UNITS LAB WBC(LOINC) WBC Count 20.1 High 3.5-11.3 k/uL LAB RBC(LOINC) RBC Count 2.97 Low 3.95-5.11 m/uL LAB HGB(LOINC) Hemoglobin 9.2 Low 11.9-15.1 g/dL LAB HCT(LOINC) Hematocrit 29.0 Low 36.3-47.1 % LAB MCV(LOINC) MCV 97.6 82.6-102.9 fL LAB MCH(LOINC) MCH 31.0 25.2-33.5 pg LAB MCHC(LOINC) MCHC 31.7 28.4-34.8 g/dL LAB RDW(LOINC) RDW 14.6 High 11.8-14.4 % LAB PLT(LOINC) Platelet Count See Reflexed IPF Result 138-453 k/uL LAB PLTFL(LOINC) Platelet, Fluoresc. Platelet clumps present, count appears decreased. 138-453 k/uL LAB NRBCS(LOINC) NRBC Automated 0.0 0.0 per 100 WBC LAB IGRAN(LOINC) Immature Granulocyte 0 0 % LAB SEG(LOINC) Neutrophil (Seg) 86 High 36-66 % LAB LYM(LOINC) Lymphocyte 7 Low 24-44 % LAB MON(LOINC) Monocyte 7 1-7 % LAB EO(LOINC) Eosinophil 0 Low 1-4 % LAB BASO(LOINC) Basophil 0 0-2 % LAB AIGRAN(LOINC) Abs.Imm.Granulo cyte 0.00 0.00-0.30 k/uL LAB ASEG(LOINC) Abs.Neutrophil (Seg) 17.28 High 1.8-7.7 k/uL LAB ALYM(LOINC) Abs. Lymph 1.41 1.0-4.8 k/uL LAB AMONO(LOINC) Abs. Monocyte 1.41 High 0.1-0.8 k/uL LAB AEO(LOINC) Abs. Eosinophil 0.00 0.0-0.4 k/uL LAB ABASO(LOINC) Abs. Basophil 0.00 0.0-0.2 k/uL LAB MORPH(LOINC) Morphology Normal Performed By: #### PT, BMPX, MG, SRAVANTHI, CDP #### [facility] [address] [place] [address] Cnc Maintenance Technician: Sarath Olivera MD CREATININE,RANDOM UR Collected: 024 1:59 AM Status: F Source: [facility] TYPE CODE TESTS RESULT OUT OF RANGE REFERENCE UNITS LAB CREUR(LOINC) Creatinine Conc. 155.0 28.0-217.0 mg/dL Performed By: #### URNA, URC RE, CLARENCE #### [facility] [employer] [address] [place] [address] [phone] Cnc Maintenance Technician: Sarath Olivera MD SODIUM, RANDOM UR Collected: 4 1:59 AM Status: F Source: [facility] TYPE CODE TESTS RESULT OUT OF RANGE REFERENCE UNITS LAB NAUR(LOINC) Na Conc. Urine 25 mmol/L Result Comment: No normal ra nge established. Performed By: #### URNA, URC RE, CLARENCE #### [address] [address] Cnc Maintenance Technician: Sarath Olivera MD DRUG SCR, ABUSE, UR Collected: 01/06/20 24 1:59 AM Status: F Source: [facility] TYPE CODE TESTS RESULT OUT OF RANGE REFERENCE UNITS LAB AMPH(LOINC) Amphetamine(s), Ur NEGATIVE NEG Result Comment: Cutoff: 1000 ng/mL LAB NADER(LOINC) Barbiturate(s), Ur NEGATIVE NEG Result Comment: Cutoff: 200 ng/ml LAB JOSH(LOINC) Benzodiazepine( s) NEGATIVE NEG Result Comment: Cutoff: 200 ng/ml LAB BE(LOINC) Cocaine Metabolite NEGATIVE NEG Result Comment: Cutoff: 300 ng/ml LAB METH(LOINC) Methadone NEGATIVE NEG Result Comment: Cutoff: 300 ng/ml LAB OPIA(LOINC) Opiate(s), Ur POSITIVE Abnormal NEG Result Comment: Cutoff: 300 ng/ml LAB PCP(LOINC) Phencyclidine, Ur NEGATIVE NEG Result Comment: Cutoff: 25 n g/ml LAB THC(LOINC) Cannabinoid(s), Ur NEGATIVE NEG Result Comment: Cutoff: 50 n g/ml LAB UOXY(LOINC) Oxycodone, Urine Sent to reference laboratory. Separate report to follow. Abnormal NEG LAB UFENT(LOINC) Fentanyl, Urine Sent to reference laboratory. Separate report to follow. Abnormal NEG LAB DAUII(LOINC) Interpretive Info Assay provides rapid clinical screening only. Presumptive positive results for Result Comment: legal purpos es should be confirmed by another method. To request confirmation, please call the lab within 7 days of sample submission. Performed By: #### URNA, URC RE, CLARENCE #### [address] [address] Cnc Maintenance Technician: Sarath Olivera MD CALCIUM, IONIC Collected: 4 12:41 AM Status: F Source: [facility] TYPE CODE TESTS RESULT OUT OF RANGE REFERENCE UNITS LAB IOCA(LOINC) Calcium, Ionic 1.09 Low 1.13-1.33 mmol/L Performed By: #### IOCAL ### # [address] [phone] Cnc Maintenance Technician: Sarath Olivera MD LACTATE, SEPSIS Collected: 4 12:11 AM Status: F Source: [facility] TYPE CODE TESTS RESULT OUT OF RANGE REFERENCE UNITS LAB LACSWB(LOINC) Lactic Acid,Sep Wbld 7.4 High 0.5-1.9 mmol/L Performed By: #### LACDS, MG , SRAVANTHI, CDP, BMPX #### [address] [phone] Cnc Maintenance Technician: Sarath Olivera MD BASIC METAB W/RFX MG Collected: 024 12:11 AM Status: F Source: [facility] TYPE CODE TESTS RESULT OUT OF RANGE REFERENCE UNITS LAB NA(LOINC) NA (Sodium) 143 136-145 mmol/L LAB K(LOINC) K (Potassium) 4.7 3.7-5.3 mmol/L LAB CL(LOINC) Chloride 113 High 98-107 mmol/L LAB HCO(LOINC) CO2 9 Low alert 20-31 mmol/L LAB GAP(LOINC) Anion Gap 21 High 9-16 mmol/L LAB GLU(LOINC) Glucose 184 High 74-99 mg/dL LAB BUN(LOINC) BUN (Urea N) 30 High 8-23 mg/dL LAB CRE(LOINC) Creatinine 1.7 High 0.50-0.90 mg/dL LAB EGFR(LOINC) eGFR 20 Low >60 mL/min/1. 73m2 Result Comment: These results are not intended [...] following therapy that affects renal tubular secretion. LAB CA(LOINC) Calcium 7.6 Low 8.6-10.4 mg/dL Performed By: #### LACDS, MG , SRAVANTHI, CDP, BMPX #### [facility] [address] [place] [address] [phone] Cnc Maintenance Technician: Sarath Olivera MD MAGNESIUM Collected: 4 12:11 AM Status: F Source: [facility] TYPE CODE TESTS RESULT OUT OF RANGE REFERENCE UNITS LAB MG(LOINC) Magnesium 1.8 1.6-2.4 mg/dL Result Comment: QA FLAGS AND /OR RANGES MODIFIED BY DEMOGRAPHIC UPDATE ON 01/05 AT 0131 Performed By: #### LACDS, MG , SRAVANTHI, CDP, BMPX #### [facility] [address] [place] [phone] Cnc Maintenance Technician: Sarath Olivera MD PHOSPHORUS, INORG. Collected: 12:11 AM Status: F Source: [facility] TYPE CODE TESTS RESULT OUT OF RANGE REFERENCE UNITS LAB SRAVANTHI(LOINC) Phosphorus, Inorg. 4.7 High 2.5-4.5 mg/dL Performed By: #### LACDS, MG , SRAVANTHI, CDP, BMPX #### [facility] [facility] [address] [place] [address] [phone] Cnc Maintenance Technician: Sarath Olivera MD CBC WITH DIFF Collected: 4 12:11 AM Status: F Source: [facility] TYPE CODE TESTS RESULT OUT OF RANGE REFERENCE UNITS LAB WBC(LOINC) WBC Count 20.1 High 3.5-11.3 k/uL LAB RBC(LOINC) RBC Count 3.27 Low 3.95-5.11 m/uL LAB HGB(LOINC) Hemoglobin 10.2 Low 11.9-15.1 g/dL LAB HCT(LOINC) Hematocrit 34.4 Low 36.3-47.1 % LAB MCV(LOINC) MCV 105.2 High 82.6-102.9 fL LAB MCH(LOINC) MCH 31.2 25.2-33.5 pg LAB MCHC(LOINC) MCHC 29.7 28.4-34.8 g/dL LAB RDW(LOINC) RDW 14.5 High 11.8-14.4 % LAB PLT(LOINC) Platelet Count 126 Low 138-453 k/uL LAB MPVX(LOINC) MPV 12.8 8.1-13.5 fL LAB NRBCS(LOINC) NRBC Automated 0.0 0.0 per 100 WBC LAB IGRAN(LOINC) Immature Granulocyte 0 0 % LAB SEG(LOINC) Neutrophil (Seg) 83 High 36-66 % LAB LYM(LOINC) Lymphocyte 5 Low 24-44 % LAB MON(LOINC) Monocyte 12 High 1-7 % LAB EO(LOINC) Eosinophil 0 Low 1-4 % LAB BASO(LOINC) Basophil 0 0-2 % LAB AIGRAN(LOINC) Abs.Imm.Granul ocyte 0.00 0.00-0.30 k/uL LAB ASEG(LOINC) Abs.Neutrophil (Seg) 16.68 High 1.8-7.7 k/uL LAB ALYM(LOINC) Abs. Lymph 1.01 1.0-4.8 k/uL LAB AMONO(LOINC) Abs. Monocyte 2.41 High 0.1-0.8 k/uL LAB AEO(LOINC) Abs. Eosinophil 0.00 0.0-0.4 k/uL LAB ABASO(LOINC) Abs. Basophil 0.00 0.0-0.2 k/uL LAB MORPH(LOINC) Morphology MACROCYTOSIS PRESENT Performed By: #### LACDS, MG , SRAVANTHI, CDP, BMPX #### [facility] [place] [address] Cnc Maintenance Technician: Sarath Olivera MD CULT,URINE Observed: 01/05/2024 11:15 PM Status: F Source: [facility] Specimen Description .CLEAN CATCH URINE Special Requests Site: Urine Culture NO GROWTH Report Status FINAL 01/07/2024 Performed By: #### URC #### [facility] [employer] [facility] [place] [address] Cnc Maintenance Technician: Sarath Olivera MD XR KNEE RIGHT (1-2 VIEWS) Observed: 10/2023 11:08 PM Status: F Source: [facility] EXAMINATION: TWO XRAY VIEWS OF THE RIGHT [...] by: Deon Webb MD 01/05/24 Final result XR FEMUR RIGHT (MIN 2 VIEWS) Observed: 0 01/05/2024 11:07 PM Status: F Source: [facility] EXAMINATION: 2 XRAY VIEWS OF THE RIGHT [...] by: Deon Webb MD 01/05/24 Final result XR FEMUR LEFT (MIN 2 VIEWS) Observed: 11:06 PM Status: F Source: [facility] EXAMINATION: 2 XRAY VIEWS OF THE LEFT FEMUR 01/05/2024 9:41 pm COMPARISON: None. HISTORY: ORDERING SYSTEM PROVIDED HISTORY: Trauma/Fracture, Ap, Lat TECHNOLOGIST PROVIDED HISTORY: Trauma/Fracture, Ap, Lat FINDINGS: Left femur is intact. No acute fracture. 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 IMPRESSION: No acute fracture. 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 Interpreted by: Deon Webb MD Signed by: Deon Webb MD 01/05/24 Final result XR ELBOW LEFT (MIN 3 VIEWS) Observed: 01/05/2024 11:05 PM Status: F Source: [facility] EXAMINATION: THREE XRAY VIEWS OF THE LEFT [...] by: Deon Webb MD 01/05/24 Final result XR SHOULDER LEFT (MIN 2 VIEWS) Observed: 01/05/2024 11:04 PM Status: F Source: [facility] EXAMINATION: 3 XRAY VIEWS OF THE LEFT [...] by: Deon Webb MD 01/05/24 Final result XR KNEE RIGHT (3 VIEWS) Observed: 2023 11:03 PM Status: F Source: [facility] EXAMINATION: THREE XRAY VIEWS OF THE RIGHT [...] by: Deon Webb MD 01/05/24 Final result XR FEMUR RIGHT (MIN 2 VIEWS) Observed: 01/05/2024 11:00 PM Status: F Source: [facility] EXAMINATION: 2 XRAY VIEWS OF THE RIGHT [...] by: Deon Webb MD 01/05/24 Final result LACTIC ACID Collected: 9:05 PM Status: F Source: [facility] TYPE CODE TESTS RESULT OUT OF RANGE REFERENCE UNITS LAB LACWB(LOINC) Lactic Acid,Whole Bl 7.0 High 0.7-2.1 mmol/L Performed By: #### LACTIC, A LCB #### [facility] [address] [place] [address] [phone] Cnc Maintenance Technician: Sarath Olivera MD ETHANOL ALCOHOL Collected: 01/05/2024 9:05 PM Status : F Source: [facility] TYPE CODE TESTS RESULT OUT OF RANGE REFERENCE UNITS LAB ALC(LOINC) Ethanol <10 <10 mg/dL LAB ETP(LOINC) Ethanol percent <0.010 <0.010 % Performed By: #### LACTIC, A LCB #### [facility] [address] [place] [address] [phone] Cnc Maintenance Technician: Sarath Olivera MD URINALYSIS W/ MICRO Collected: 01/05/20 24 8:17 PM Status: F Source: [facility] TYPE CODE TESTS RESULT OUT OF RANGE REFERENCE UNITS LAB UCO(LOINC) Color Dark Yellow Abnormal YEL LAB UTU(LOINC) Clarity, Urine Turbid Abnormal CLEAR LAB UGL(LOINC) Glucose,Semi-q nt,Ur TRACE Abnormal NEG mg/dL LAB UBI(LOINC) Bilirubin, SemiQt,Ur NEGATIVE Verified by ictotest. Abnormal NEG LAB UKE(LOINC) Ketones, Urine NEGATIVE NEG mg/dL LAB USG(LOINC) Spec. Cisco,Ur 1.022 1.005-1.030 LAB UHB(LOINC) Blood, Urine MODERATE Abnormal NEG LAB UPH(LOINC) PH,Ur 5.0 5.0-8.0 LAB UPR(LOINC) Protein, Semi-qnt,Ur 2+ Abnormal NEG mg/dL LAB UUR(LOINC) Urobilinogen,U r Normal 0.0-1.0 EU/dL LAB UNI(LOINC) Nitrite,Ur NEGATIVE NEG LAB ULE(LOINC) Leukocyte Esterase TRACE Abnormal NEG LAB UWBC(LOINC) Urine WBC's 20 TO 50 0-5 /HPF LAB URBC(LOINC) Urine RBC's 0 TO 2 0-2 /HPF LAB CAST(LOINC) Casts 5 TO 10 0-2 /LPF Result Comment: HYALINE LAB EPITH(LOINC) Epithelial cells 20 TO 50 0-5 /HPF LAB MUC(LOINC) Mucus Strands 1+ Performed By: #### CLARENCE, UAWV C #### [facility] [address] [place] [phone] Cnc Maintenance Technician: Sarath Olivera MD DRUG SCR, ABUSE, UR Collected: 01/05/20 24 8:17 PM Status: F Source: [facility] TYPE CODE TESTS RESULT OUT OF RANGE REFERENCE UNITS LAB AMPH(LOINC) Amphetamine(s), Ur NEGATIVE NEG Result Comment: Cutoff: 1000 ng/mL LAB NADER(LOINC) Barbiturate(s), Ur NEGATIVE NEG Result Comment: Cutoff: 200 ng/ml LAB JOSH(LOINC) Benzodiazepine( s) NEGATIVE NEG Result Comment: Cutoff: 200 ng/ml LAB BE(LOINC) Cocaine Metabolite NEGATIVE NEG Result Comment: Cutoff: 300 ng/ml LAB METH(LOINC) Methadone NEGATIVE NEG Result Comment: Cutoff: 300 ng/ml LAB OPIA(LOINC) Opiate(s), Ur POSITIVE Abnormal NEG Result Comment: Cutoff: 300 ng/ml LAB PCP(LOINC) Phencyclidine, Ur NEGATIVE NEG Result Comment: Cutoff: 25 n g/ml LAB THC(LOINC) Cannabinoid(s), Ur NEGATIVE NEG Result Comment: Cutoff: 50 n g/ml LAB UOXY(LOINC) Oxycodone, Urine Sent to reference laboratory. Separate report to follow. Abnormal NEG Result Comment: OZZIE MELO NOT IFIED (Positive cutoff 100 ng/mL) LAB UFENT(LOINC) Fentanyl, Urine Sent to reference laboratory. Separate report to follow. Abnormal NEG Result Comment: OZZIE MELO NOT IFIED (Positive cutoff 5 ng/ml) LAB DAUII(LOINC) Interpretive Info Assay provides rapid clinical screening only. Presumptive positive results for Result Comment: legal purpos es should be confirmed by another method. To request confirmation, please call the lab within 7 days of sample submission. Performed By: #### CLARENCE, UAMI C #### [facility] [address] [place] [id number] Cnc Maintenance Technician: Sarath Olivera MD OPIATES,UR CONFIRM Collected: 4 8:17 PM Status: F Source: [facility] TYPE CODE TESTS RESULT OUT OF RANGE REFERENCE UNITS LAB HYDCUA(LOINC) Hydrocodone, Ur <20 ng/mL LAB OXCUA(LOINC) Oxycodone, Ur <20 ng/mL LAB OXMUA(LOINC) Oxymorphone, Ur <20 ng/mL LAB HYDMUA(LOINC) Hydromorphon e, Ur <20 ng/mL LAB CODUA(LOINC) Codeine, Ur <20 ng/mL LAB MIKE(LOINC) Morphine, Ur 331 ng/mL LAB O6UA(LOINC) Opiates, 6 AM Ur <10 ng/mL Result Comment: (NOTE) INTERPRETIVE INFORMATION: Opiates, Urine, Quantitative Methodology: Quantitative [...] developed and its performance characteristics determined by [facility]. It has not been cleared or approved by the [place] Food and Drug Administration. This test was performed in a CLIA certified laboratory and is intended for clinical purposes. LAB NOXCUA(LOINC) Noroxycodone , Ur <20 ng/mL LAB NOXMUA(LOINC) Noroxymorpho ne,U <20 ng/mL LAB NOHCUA(LOINC) Norhydrocodo ne, U <20 ng/mL Result Comment: (NOTE) Performed By: [facility] [address] [place] [id number] Motorized Squad Captain: Taco Chang MD, PhD CLIA Number: [id number] Performed By: #### Estevan CHAMBERS [facility]ICO #### [facility] [address] [address] Cnc Maintenance Technician: Claude Peter MD FENTANYL, URINE Collected: 4 8:17 PM Status: F Source: [facility] TYPE CODE TESTS RESULT OUT OF RANGE REFERENCE UNITS LAB FENTUA(LOINC) Fentanyl/Met ab Ur 21.9 ng/mL Result Comment: (NOTE) INTERPRETIVE INFORMATION: Fentanyl and Metabolite, Urine Methodology: [...] developed and its performance characteristics determined by [facility]. It has not been cleared or approved by the [place] Food and Drug Administration. This test was performed in a CLIA certified laboratory and is intended for clinical purposes. LAB NFENTU(LOINC) Norfentanyl, Ur See Note ng/mL Result Comment: (NOTE) Unable to identify due to interfering substance(s) in the specimen. Performed By: [facility] [address] [place] [address] Motorized Squad Captain: Taco Chang MD, PhD CLIA Number: [id number] Performed By: #### Estevan CHAMBERS OPICO #### [facility] [address] [place] [address] Cnc Maintenance Technician: Claude Peter MD CT THORACIC SPINE BONY RECONSTRUCTION Observed: 01/05/2024 7:36 PM Status: F Source: [facility] EXAMINATION: CT OF THE CHEST, ABDOMEN, AND [...] small amount of high density pelvic fluid. Peritoneum/Retroperitoneum: The abdominal aorta is not aneurysmal. There [...] by: Amol Martínez MD 01/05/[address] LUMBAR SPINE BONY RECONSTRUCTION Observed: 01/05/2024 7:36 PM Status: F Source: [facility] EXAMINATION: CT OF THE CHEST, ABDOMEN, AND [...] small amount of high density pelvic fluid. Peritoneum/Retroperitoneum: The abdominal aorta is not aneurysmal. There [...] by: Amol Martínez MD 01/05/[address] CHEST ABDOMEN PELVIS WO CONTRAST Observed: 01/05/2024 7:36 PM Status: F Source: [facility] EXAMINATION: CT OF THE CHEST, ABDOMEN, AND [...] small amount of high density pelvic fluid. Peritoneum/Retroperitoneum: The abdominal aorta is not aneurysmal. There [...] by: Amol Martínez MD 01/05/24 Final result CBC Collected: 4 6:49 PM Status: F Source: [facility] TYPE CODE TESTS RESULT OUT OF RANGE REFERENCE UNITS LAB WBC(LOINC) WBC Count 22.0 High 3.5-11.3 k/uL LAB RBC(LOINC) RBC Count 3.17 Low 3.95-5.11 m/uL LAB HGB(LOINC) Hemoglobin 9.9 Low 11.9-15.1 g/dL LAB HCT(LOINC) Hematocrit 31.8 Low 36.3-47.1 % LAB MCV(LOINC) MCV 100.3 82.6-102.9 fL LAB MCH(LOINC) MCH 31.2 25.2-33.5 pg LAB MCHC(LOINC) MCHC 31.1 28.4-34.8 g/dL LAB RDW(LOINC) RDW 14.4 11.8-14.4 % LAB PLT(LOINC) Platelet Count 146 138-453 k/uL LAB MPVX(LOINC) MPV 12.8 8.1-13.5 fL LAB NRBCS(LOINC) NRBC Automated 0.0 0.0 per 100 WBC Performed By: #### PT, CBC # ### [address] [id number] Cnc Maintenance Technician: Sarath Olivera MD PT Collected: 01/05/2024 6:49 PM Status: F Source: [facility] TYPE CODE TESTS RESULT OUT OF RANGE REFERENCE UNITS LAB PTR(LOINC) Prothrombin Time 16.6 High 11.7-14.9 se c LAB INR(LOINC) INR 1.4 Result Comment: Therapeutic Range: Moderate Anticoagulant Intensity: INR = 2.0-3.0 High Anticoagulant Intensity: INR = 2.5-3.5 Performed By: #### PT, CBC # ### [address] [id number] Cnc Maintenance Technician: Sarath Olivera MD LACTATE, SEPSIS Collected: 6:14 PM Status: F Source: [facility] TYPE CODE TESTS RESULT OUT OF RANGE REFERENCE UNITS LAB LACSWB(LOINC) Lactic Acid,Sep Wbld 7.9 High 0.5-1.9 mmol/L Performed By: #### LACDS ### # [address] [id number] Cnc Maintenance Technician: Sarath Olivera MD BASIC METABOLIC PROF Collected: 01/05/2024 6:14 PM S tatus: F Source: [facility] TYPE CODE TESTS RESULT OUT OF RANGE REFERENCE UNITS LAB NA(LOINC) NA (Sodium) 144 136-145 mmol/L LAB K(LOINC) K (Potassium) 3.4 Low 3.7-5.3 mmol/L Result Comment: SPECIMEN SLI GHTLY HEMOLYZED, RESULTS MAY BE ADVERSELY AFFECTED. LAB CL(LOINC) Chloride 115 High 98-107 mmol/L LAB HCO(LOINC) CO2 13 Low 20-31 mmol/L LAB GAP(LOINC) Anion Gap 16 9-16 mmol/L LAB GLU(LOINC) Glucose 174 High 74-99 mg/dL LAB BUN(LOINC) BUN (Urea N) 23 8-23 mg/dL LAB CRE(LOINC) Creatinine 1.3 High 0.50-0.90 mg/dL LAB EGFR(LOINC) eGFR 29 Low >60 mL/min/1. 73m2 Result Comment: These results are not intended [...] following therapy that affects renal tubular secretion. LAB CA(LOINC) Calcium 6.3 Low 8.6-10.4 mg/dL Performed By: #### BMP, CK, KAYODE #### [facility] [address] [place] [address] [id number] Cnc Maintenance Technician: Sarath Olivera MD CREATINE KINASE Collected: 01/05/2024 6:14 PM Status : F Source: [facility] TYPE CODE TESTS RESULT OUT OF RANGE REFERENCE UNITS LAB CK(LOINC) Creatine Kinase 725 High 26-192 U/L Performed By: #### BMP, CK, KAYODE #### [facility] [address] [place] [address] [id number] Cnc Maintenance Technician: Sarath Olivera MD MYOGLOBIN Collected: 6:14 PM Status: F Source: [facility] TYPE CODE TESTS RESULT OUT OF RANGE REFERENCE UNITS LAB KAYODE(LOINC) Myoglobin 3228 High 25-58 ng/mL Performed By: #### BMP, CK, KAYODE #### [facility] [address] [place] [address] [id number] Cnc Maintenance Technician: Sarath Olivera MD CULT, BLOOD Observed: 01/05/2024 5:58 PM Status: F Source: [facility] Specimen Description .BLOOD Special Requests RT HAND NO MLS GIVEN Culture NO GROWTH 5 DAYS Report Status FINAL 01/10/2024 Performed By: #### BCUL2 ### # [address] [id number] Cnc Maintenance Technician: Sarath Olivera MD CULT,BLOOD Observed: 01/05/2024 5:56 PM Status: F Source: [facility] Specimen Description .BLOOD Special Requests RT AC 10ML Culture NO GROWTH 5 DAYS Report Status FINAL 01/10/2024 Performed By: #### BC #### [address] [id number] Cnc Maintenance Technician: Sarath Olivera MD TYPE + SCREEN Observed: 01/05/2024 5:19 PM Status: F Source: [facility] Sample Expiration 01/08/2024 ,2359 Arm Band Number [id number] ABO/Rh(D) O POSITIVE Antibody Screen NEGATIVE Unit Number [id number] Blood Component Type Leukocyte Reduced Red Cell Unit Division 00 Status of Unit TRANSFUSED Transfusion Status OK TO TRANSFUSE Crossmatch Result COMPATIBLEUnit Number [id number] Blood Component Type Leukocyte Reduced Red Cell Unit Division 00 Status of Unit TRANSFUSED Transfusion Status OK TO TRANSFUSE Crossmatch Result COMPATIBLE Performed By: #### TYS #### [address] [id number] Cnc Maintenance Technician: Sarath Olivera MD TRAUMA PROFILE Collected: 5:14 PM Status: F Source: [facility] TYPE CODE TESTS RESULT OUT OF RANGE REFERENCE UNITS LAB ALC(LOINC) Ethanol <10 <10 mg/dL LAB ETP(LOINC) Ethanol percent <0.010 <0.010 % LAB BBANK(INC) Blood Bank BILL FOR SERVICES PERFORMED LAB BUN(LOINC) BUN (Urea N) 26 High 8-23 mg/dL LAB WBC(LOINC) WBC Count 22.6 High 3.5-11.3 k/uL LAB RBC(LOINC) RBC Count 3.12 Low 3.95-5.11 m/uL LAB HGB(LOINC) Hemoglobin 9.8 Low 11.9-15.1 g/dL LAB HCT(LOINC) Hematocrit 32.6 Low 36.3-47.1 % LAB MCV(LOINC) MCV 104.5 High 82.6-102.9 fL LAB MCH(LOINC) MCH 31.4 25.2-33.5 pg LAB MCHC(LOINC) MCHC 30.1 28.4-34.8 g/dL LAB RDW(LOINC) RDW 14.4 11.8-14.4 % LAB PLT(LOINC) Platelet Count 140 138-453 k/uL LAB MPVX(LOINC) MPV 12.6 8.1-13.5 fL LAB NRBCS(LOINC) NRBC Automated 0.0 0.0 per 100 WBC LAB CRE(LOINC) Creatinine 1.5 High 0.50-0.90 mg/dL LAB EGFR(LOINC) eGFR 23 Low >60 mL/min/1 .73m2 Result Comment: These results are not intended [...] following therapy that affects renal tubular secretion. LAB GLU(LOINC) Glucose 191 High 74-99 mg/dL LAB HCG(LOINC) HCG Screen, Blood NEGATIVE NEG Result Comment: Specimens wi th hCG levels near the threshold of the test (25 mIU/mL) may give a negative or indeterminate result. In such cases, another test should be performed with a new specimen in 48-72 hours. If early is suspected clinically in this setting, correlation with quantitative serum b-hCG level is suggested. [facility] has confirmed the use of plasma for this test. This has not been cleared or approved by the U.S. Food and Drug Administration. The FDA has determined that such clearance is not necessary. LAB NA(LOINC) NA (Sodium) 143 136-145 mmol/L LAB K(LOINC) K (Potassium) 3.6 Low 3.7-5.3 mmol/L LAB CL(LOINC) Chloride 111 High 98-107 mmol/L LAB HCO(LOINC) CO2 17 Low 20-31 mmol/L LAB GAP(LOINC) Anion Gap 15 9-16 mmol/L LAB PTR(LOINC) Prothrombin Time 40.5 High 11.7-14.9 sec LAB INR(LOINC) INR 4.4 Result Comment: Therapeutic Range: Moderate Anticoagulant Intensity: INR = 2.0-3.0 High Anticoagulant Intensity: INR = 2.5-3.5 LAB PTTR(LOINC) PTT 28.7 23.0-36.5 sec Result Comment: IV Heparin Therapy Range: 66.0-92.0 sec LAB VPHGAS(LOINC) pH 7.205 Low alert 7.320-7.420 LAB PCO2V(LOINC) pCO2 45.1 39-55 mm Hg LAB PO2V(LOINC) pO2 41.3 30-50 mm Hg LAB VHCO3V(LOINC) HCO3 17.2 Low 24-30 mmol/L LAB VNBEX(LOINC) Negative Base Excess 9.9 High 0.0-2.0 mmol/L LAB O2SATV(LOINC) O2 Saturation 65.9 60.0-85.0 % LAB COHB(LOINC) Carboxy Hgb 2.7 0-5 % Result Comment: Reference Range: Non-Smokers 0-2% Average Smoker 2-4% Heavy Smoker <10% LAB TEMP(LOINC) Body Temp. 37.0 LAB FIO2(LOINC) FIO2 INFORMATION NOT PROVIDED Performed By: #### ERTPF, B1 2, GHTEG #### [facility] [place] [address] Cnc Maintenance Technician: Sarath Olivera MD GLOBAL HEMOSTASIS(TEG 6S) Collected: 5:14 PM Status: F Source: [facility] TYPE CODE TESTS RESULT OUT OF RANGE REFERENCE UNITS LAB RTEG(LOINC) R(Reaction Time) TEG 4.7 4.6-9.1 min LAB KTEG(LOINC) K (Kinetics) TEG 1.1 0.8-2.1 min LAB ATEG(LOINC) Angle TEG 75.0 63.0-78.0 deg LAB MATEG(LOINC) MA (Max Clot) TEG 65.4 52.0-69.0 mm LAB RTEGH(LOINC) R TEG w/Hep 4.6 4.3-8.3 min LAB MARTEG(LOINC) MA Rapid TEG 65.2 52.0-70 mm LAB MAFF(LOINC) Fibrinogen, Func TEG 23.0 15.0-32.0 mm Performed By: #### ERTPF, B1 2, GHTEG #### [facility] [address] [place] [address] Cnc Maintenance Technician: Sarath Olivera MD VITAMIN B12 Collected: 4 5:14 PM Status: F Source: [facility] TYPE CODE TESTS RESULT OUT OF RANGE REFERENCE UNITS LAB B12([facility]) Vitamin B12 335 354-8191 pg/mL Performed By: #### ERTPF, B1 2, GHTEG #### [facility] [address] [place] [address] Cnc Maintenance Technician: Sarath Olivera MD ALLERGIES No Allergies Records Found ENCOUNTERS ADMIT/DISCHARGE ACCOUNT NUMBER ADMITTING ENCOUNTER CLASS LOCATION SOURCE 11/29/2024/ 5 [id number] Ambulatory Building:[facility] 11/15/2024/ 5 [id number] Ambulatory Building:[facility] 05/17/2024/ 4 [id number] Ambulatory Building:[facility] 03/15/2024/ 4 [id number] Ambulatory Building:[facility] 02/17/2024/ 4 [id number] AUSTIN ZEE Inpatient Encounter Building[facility] [address] [place] [address] 02/09/2024/ 4 [id number] Ambulatory Building:[facility] 02/02/2024/ 4 [id number] Ambulatory Building:[facility] 01/26/2024/ 4 [id number] Ambulatory Building:[facility] 01/23/2024/ 4 [id number] Ambulatory Building:[facility] 01/19/2024/ 4 [id number] Ambulatory Building:[facility] 01/15/2024/ 4 [id number] Ambulatory Building:[facility] 01/05/2024/ 4 [id number] BECKY FOLEY Inpatient Encounter Building:[facility] Room: 044ed: [address] [place] [address] PAYERS ENCOUNTER GUARANTOR PAYER SUBSCRIBER SOURCE 11/29/2024 MARIA GUADALUPE Barney MASONDOB: [facility] [address], [place] [address]Rch: (HP) Primary Insurance:[place] [facility] MEDICAREPolicy Number: [id number] Date:[id number] [address], [place] [address]SZ: MARIA GUADALUPE S MASONDOB: [id number] [facility] [address], [place] [address]Mli: (HP) [facility] 11/15/2024 MARIA GUADALUPE S MASONDOB: [facility] [address], [place] [address]Qck: (HP) Primary Insurance:[place] [facility] MEDICAREPolicy Number: [id number] Date:1164-65-26[address], [place] [address]YN: MARIA GUADALUPE S MASONDOB: [id number] [facility] [address], [place] [address]Ida: (HP) [facility] 05/17/2024 MARIA GUADALUPE S MASONDOB: [facility] [address], [place] [address]Zcl: (HP) Primary Insurance:[facility] MEDICAREPolicy Number: [id number] Date:2023-08-04 MARIA GUADALUPE S MASONDOB: [id number] [facility] [address], [place] [address]Mlm: (HP) [facility] 05/17/2024 Secondary Insurance:[facility] MEDICAREPolicy Number: [id number] Date:2023-08-04 MARIA GUADALUPE Barney MASONDOB: [id number] [facility] [address], [place] [address]Rxt: (HP) [facility] 03/15/2024 MARIA GUDAALUPE Barney MASONDOB: [facility] [address], [place] [address]Jcy: (HP) Primary Insurance:BS MEDICAREPolicy Number: [id number] Date:2023-08-04 MARIA GUADALUPE Barney MASONDOB: [id number] [facility] [address], [place] [address]Mmh: (HP) [facility] 03/15/2024 Secondary Insurance:[facility] MEDICAREPolicy Number: [id number] Date:2023-08-04 MARIA GUADALUPE Barney MASONDOB: [id number] [facility] [address], [place] [address]Anl: (HP) [facility] 02/17/2024 MARIA GUADALUPE Barney MASONDOB: [facility] [address], [place] [address]Urw: (HP) Primary Insurance:[facility] MEDICAREPolicy Number: [id number] Date:2023-08-04 MARIA GUADALUPE Barney MASONDOB: [id number] [facility] [address], [place] [address]Nvx: (HP) [facility] 02/09/2024 MARIA GUADALUPE Barney MASONDOB: [facility] [address], [place] [address]Pek: (HP) Primary Insurance:[facility] MEDICAREPolicy Number: [id number] Date:2023-08-04 MARIA GUADALUPE Barney MASONDOB: [id number], [place] [address]Fij: (HP) [facility] 02/09/2024 Secondary Insurance:[facility] MEDICAREPolicy Number: [id number] Date:2023-08-04 MARIA GUADALUPE Barney MASONDOB: [id number], [place] [address]Auv: (HP) [facility] 02/02/2024 MARIA GUADALUPE Barney MASONDOB: [address], [place] [address]Lcg: (HP) Primary Insurance:[facility] MEDICAREPolicy Number: [id number] Date:2023-08-04 MARIA GUADALUPE Barney MASONDOB: [id number], [place] [address]Rgm: (HP) [facility] 01/26/2024 MARIA GUADALUPE Barney MASONDOB: [address], [place] [address]Avw: (HP) Primary Insurance:[facility] MEDICAREPolSev[employer].y Number: [id number] Date:2023-08-04 MARIA GUADALUPE Barney MASONDOB: [id number], [place] [address]Ftp: (HP) [facility] 01/23/2024 MARIA GUADALUPE Barney MASONDOB: [address], [place] [address]Klh: (HP) Primary Insurance:[facility] MEDICAREPolicy Number: [id number] Date:2023-08-04 MARIA GUADALUPE Barney MASONDOB: [id number], [place] [address]Csq: (HP) [facility] 01/19/2024 MARIA GUADALUPE Barney MASONDOB: [address], [place] [address]Fsk: (HP) Primary Insurance:[employer] MEDICAREPolicy Number: [id number] Date:2023-08-04 MARIA GUADALUPE Barney MASONDOB: [id number] [address], [place] [address]Sdu: (HP) [facility] 01/15/2024 MARIA GUADALUPE Barney MASONDOB: [place] [place], [place] [address]Ewy: (HP) Primary Insurance:[employer] MEDICAREPolicy Number: [id number] Date:2023-08-04 MARIA GUADALUPE Barney MASONDOB: [id number] [place] [place] [address]Sjd: (HP) [facility] 01/05/2024 MARIA GUADALUPE MASONDOB: [place] [place] [address]Heu: (HP) Primary Insurance:[employer] MEDICAREPolicy Number: [id number] Date:2023-08-04 MARIA GUADALUPE ROBLEDOONDOB: [id number] [place] [place], [place] [address]Nsk: (HP) [facility]
[2024-12-26] VITALS (8 sets, daily range): BP systolic 99–156; BP diastolic 77–91; PULSE 80–113; TEMP 36.5–37.1; O2SAT 92–98; BMI 25.5; BMI 25.4
--- OUTSIDE RECORDS SUMMARY | 2024-12-26 02:26 | XMS_ITS | Clinical Summary ---
Author Organization [facility] Address [address] [place] [id number] Care Team Providers Care Laboratory Specialist Name Role Phone Miley Chadwick MD Primary Care Provider [phone] Allergies Active Allergy Reactions Criticality Noted Date Comments Sulfa (Sulfonamide Antibiotics) Mental Status Change 04/24/2016 Medications diltiazem CD (CARDIZEM CD) 180 mg 24 hr capsule Take 180 mg by mouth once daily. Active metoprolol tartrate, short acting, (LOPRESSOR) 50 mg tablet Take 50 mg by mouth twice daily. Active warfarin (COUMADIN) 2.5 mg tablet Take 2.5 mg by mouth daily as directed. 1 tablet Friday, Friday, Friday, and 1.5 tablet Fri, Fri, and Friday Active simvastatin (ZOCOR) 10 mg tablet Take 10 mg by mouth daily at bedtime. Active aspirin, enteric coated (ASPIRIN, ENTERIC COATED) 81 mg EC tablet Take 81 mg by mouth once daily. Active alendronate (FOSAMAX) 70 mg tablet Take 70 mg by mouth once each week. Active Active Problems No known active problems Social History Tobacco Use Types Packs/Day Years Used Date Smoking Tobacco: Never Alcohol Use Standard Drinks/Week Comments No 0 (1 standard drink = 0.6 oz pur e alcohol) Comments No Sex and Gender Information Value Date Recorded Sex Assigned at Not on file Legal Sex Female 9:05 AM EDT Gender Identity Not on file Sexual Orientation Not on file Last Filed Vital Signs Vital Sign Reading Time Taken Comments Blood Pressure 129/85 05/14/2016 10:53 AM EDT Pulse 60 05/14/2016 10:53 AM EDT Temperature - - Respiratory Rate 18 05/14/2016 10:53 AM EDT Oxygen Saturation 96% 05/14/2016 10:53 AM EDT Inhaled Oxygen Concentration - - Weight 83.5 kg (184 lb) 05/14/2016 10:53 AM EDT Height 172.7 cm (5' 8 ) 05/14/2016 10:53 AM EDT Body Mass Index 27.98 05/14/2016 10:53 AM EDT Plan of Treatment Health Maintenance Due Date Last Done Comments Anxiety Screening 1958 Depression Screening 1958 DTaP,Tdap,Td Vaccine (1 - Tdap) 1958 Diabetes Screening 1984 Pneumococcal Vaccine: 50+ (1 of 1 - PCV) 1989 Shingrix Vaccine (1 of 2) 1989 Bone Density Screening 2004 RSV Vaccine (1 - 1-dose 75+ series) 2014 Covid-19 Vaccine ( - season) 2024 Advance Directive Discussion 08/04/2024 Influenza Vaccine (Season Ended) 2025 Insurance [facility] PPO Care Teams Laboratory Specialist Relationship Specialty Start Date End Date Miley Chadwick MD [address] [place] [id number] PCP - General Family Medicine 08/04/15
--- OUTSIDE RECORDS SUMMARY | 2024-12-26 02:26 | XMS_ITS | Clinical Summary ---
Author Organization [facility] Address [address] [place] [address] Care Team Providers Care Casket Liner Name Role Phone Unavailable Primary Care Provider Unavailabl e Social History Tobacco Use Types Packs/Day Years Used Date Smoking Tobacco: Never Assessed Comments Unknown Sex and Gender Information Value Date Recorded Sex Assigned at Not on file Legal Sex Female 6:36 PM EDT Gender Identity Not on file Sexual Orientation Not on file Last Filed Vital Signs Vital Sign Reading Time Taken Comments Blood Pressure 125/73 09/21/2018 12:00 PM EST Pulse - - Temperature - - Respiratory Rate - - Oxygen Saturation - - Inhaled Oxygen Concentration - - Weight 81.6 kg (180 lb) 07/25/2021 12:00 PM EST Height 163.8 cm (5' 4.5 ) 07/25/2021 12:00 PM ES T Body Mass Index 30.42 07/25/2021 12:00 PM EST Plan of Treatment Health Maintenance Due Date Last Done Comments Pneumococcal Vaccine: 65+ Years (2 of 2 - PCV) 016 04/12/2015 Influenza Vaccine (Season Ended) 2025 05/13/20 18 Insurance [facility] MEDIC[facility]
--- OUTSIDE RECORDS SUMMARY | 2024-12-26 02:27 | XMS_ITS | Clinical Summary ---
Author Organization [facility] Address [address] [place] [address] Care Team Providers Care Bone Puller Name Role Phone Fatmata Adams POULTRY BONER - KNUCKLE BENDER Primary Care Provide r Allergies Active Allergy Reactions Criticality Noted Date Comments Penicillins 01/05/2024 Sulfa Antibiotics Other (See Comments) Medium 01/05/20 24 Mental status changes pulled in from [facility] Medications dilTIAZem (CARDIZEM) 90 MG tablet Take 1 tablet by mouth daily 120 tablet 3 4 Active Additional Information Patient taking differently:90 mg OralDAILY WITH BREAKFAST, Reported on 02/16/2024 senna (SENOKOT) 8.8 MG/5ML SYRP syrup Take 5 mLs by mouth nightly 105 mL 4 Active bisacodyl (DULCOLAX) [address] 1 suppository rectally daily as needed for Constipation Active Calcium Carbonate Antacid (CALCIUM CARBONATE PO) Take 750 mg by mouth every 6 hours as needed (GI upset) Active sodium phosphate (FLEET) 7-19 GM/118ML Place 1 enema rectally daily as needed Active loperamide (IMODIUM) 2 MG capsule Take 1 capsule by mouth daily as needed for Diarrhea Active magnesium hydroxide (MILK OF MAGNESIA) 400 MG/5ML suspension Take 5 mLs by mouth daily as needed for Constipation Active polyethylene glycol (MIRALAX) 17 g PACK packet Take 17 g by mouth daily Active aluminum & magnesium hydroxide-simet hicone (MAALOX) 200-200-20 MG/5ML SUSP suspension Take 5 mLs by mouth every 6 hours as needed for Indigestion Active metoprolol tartrate (LOPRESSOR) 25 MG tablet Take 0.5 tablets by mouth 2 times daily 60 tablet Active warfarin (COUMADIN) 1 MG tablet Take 1 tablet by mouth at bedtime 30 tablet 3 4 Active Hospital, Clinic, or Other Facility Administered Medication Ordered Dose Route Frequency Start Date End Date Status methylPREDNISolone acetate (DEPO-MEDROL) injection 80 mgIndications:Lumbar pain 80 mg IX ONCE 11/30/2024 12/03/2024 Ended BUPivacaine (MARCAINE) 0.25 % injection 5 mgIndications:Lumbar pain 5 mg IX ONCE 11/30/2024 12/03/2024 Ended Active Problems Problem Noted Date Diagnosed Date Osteoarthritis of left shoul donis, unspecified osteoarthritis type 02/17/2024 Atrial fibrillation 02/17/2024 Primary hypertension 02/17/2024 History of DVT (deep vein thrombosis) 02/17/2024 ACP (advance care planning) 01/07/2024 Palliative care encounter 01/07/2024 DNR (do not resuscitate) discussion 01/07/2024 Septicemia 01/06/2024 Closed fracture of left proximal humerus 024 Closed fracture of shaft of right femur 01/06/20 SDH (subdural hematoma) 01/05/2024 Encounters Date Type Department Care Team Description 12/14/2024 Telephone [facility] [address] [phone] Yaneli Lui LPN Other 12/07/2024 Telephone [facility] [address] [phone] Austin Zee, requesting callback, patient in pain 12/02/2024 Telephone [facility] [address] [phone] Austin Zee, Other (Records needed) 11/29/2024 2:55 PM EDT Ancillary Procedure [facility] [address] [place] [address] [address] [place] [address] Lumbar pain 11/29/2024 2:15 PM EDT Office Visit [facility] [address] [place] [address] Austin Zee DO Lumbar pain (Primary Dx) 11/23/2024 Telephone [facility] [address] [facility] [address] [place] [address] Isaiah Bueno PA PT Referral 11/15/2024 10:30 AM EDT Office Visit [facility] [address] [place] [address] Isaiah Bueno PA Pain; Closed fracture of shaft of right femur with routine healing, unspecified fracture morphology, subsequent encounter; Closed fracture of proximal end of left humerus with routine healing, unspecified fracture morphology, subsequent encounter 11/15/2024 10:20 AM EDT Ancillary Procedure [facility] [address] [place] [address] Pain; Closed fracture of shaft of right femur with routine healing, unspecified fracture morphology, subsequent encounter; Closed fracture of proximal end of left humerus with routine healing, unspecified fracture morphology, subsequent encounter from Last 3 Months Family History Medical History Relation Name Comments No Known Problems Father No Known Problems Mother Relation Name Status Comments Father Mother Social History Tobacco Use Types Packs/Day Years Used Date Smoking Tobacco: Never Smokeless Tobacco: Never Tobacco Cessation:Counseling Given: Not Answered Interpersonal Safety Domain Source: IP Abuse Scr eening Answer Date Recorded Physical abuse Denies 01/05/2024 Verbal abuse Denies 01/05/2024 Emotional abuse Denies 01/05/2024 Financial abuse Denies 01/05/2024 Sexual abuse Denies 01/05/2024 Comments No Sex and Gender Information Value Date Recorded Sex Assigned at Not on file Legal Sex Female 2:48 PM EST Gender Identity Not on file Sexual Orientation Not on file Last Filed Vital Signs Vital Sign Reading Time Taken Comments Blood Pressure 158/80 02/23/2024 7:34 AM EDT Pulse 102 02/23/2024 7:34 AM EDT Temperature 36.7 C (98.1 F) 02/23/2024 7:34 AM EDT Respiratory Rate 14 11/29/2024 2:24 PM EDT Oxygen Saturation 93% 02/23/2024 7:34 AM EDT Inhaled Oxygen Concentration - - Weight 72.6 kg (160 lb) 11/29/2024 2:24 PM EDT Height 172.7 cm (5' 7.99 ) 11/29/2024 2:24 PM ED T Body Mass Index 24.33 11/29/2024 2:24 PM EDT Plan of Treatment Upcoming Encounters Date Type Department Care Team (Late st Contact Info) Description 02/16/2025 10:30 AM EDT Office Visit [facility] [address] [facility] [address] [place] [address] Isaiah Bueno PA [facility] [facility] [address] [place], [place] [id number] 3mfu Lt shoulder, rt femur Health Maintenance Due Date Last Done Comments Depression Screen 1952 DTaP/Tdap/Td vaccine (1 - Tdap) 1958 DEXA (modify frequency per FRAX score) 1994 Respiratory Syncytial Virus (RSV) or age 60 yrs+ (1 - 1-dose 75+ series) 2014 COVID-19 Vaccine ( season) 2024 08/15/2021, 10/11/2020, 09/20/2020 Annual Wellness Visit (Medicare Advantage) 08/04/2024 Flu vaccine (Season Ended) 03/04/202504/25, 06/05/2020, 05/13/2018, Additional history exists Pneumococcal 50+ years Vaccine Completed 04/25/2023, 04/12/2015 Shingles vaccine Completed 04/25/2023, 02/24/2023 Hepatitis A vaccine Aged Out No longe r eligible based on patient's age to complete this topic Hepatitis B vaccine Aged Out No longe r eligible based on patient's age to complete this topic Hib vaccine Aged Out No longer eligi ble based on patient's age to complete this topic Meningococcal (ACWY) vaccine Aged Out No longer eligible based on patient's age to complete this topic Meningococcal B vaccine Aged Out No l onger eligible based on patient's age to complete this topic Polio vaccine Aged Out No longer elig ible based on patient's age to complete this topic Medical Devices Implanted Type Area Ict Systems Test Engineer Device Identifier Shelf Expiration Date Model / Serial / Lot Screw Peripheral 38mm - [id number] Implanted:Qty: 1 on 02/18/2024 by Austin Zee, DO at [facility] Shoulde r/Arm/W rist/Niño nd Left: Shoulder [employer]-PMM [id number] / / Nail Im Fem [id number] Mm Rt Greater Trochanteric Strl T2 Alpha - [id number] Implanted:Qty: 1 on 01/06/2024 [facility] [employer] [id number] 07/03/2031 [id number] / / [id number] Screw Bne L90mm Dia6.5mm Canc Fem Ti Lag Rory Saad Partially - [id number] Implanted:Qty: 1 on 01/06/2024 by Austin Zee, DO at [facility] ORTHOPEDICS [employer] [id number] 09/03/2027 [id number] / / [id number] Screw Bne L90mm Dia6.5mm Canc Fem Ti Lag Rory Saad Partially - [id number] Implanted:Qty: 1 on 01/06/2024 [facility] [employer] [id number] 09/03/2027 [id number] / / [id number] Screw Lk St 6a541ar - [id number] Implanted:Qty: 1 on 01/06/2024 [facility] [employer] [id number] 05/03/2033 [id number] / / [id number] Screw Bne L50mm Dia5mm Saad For T2 Alpha Nailing Sys - [id number] Implanted:Qty: 1 on 01/06/2024 [facility] [id number] 01/31/2033 [id number] / / [id number] Screw Bne Lck 5x45 Mm Adv Strl Alpha - [id number] Implanted:Qty: 1 on 01/06/2024 by Austin Zee, DO at [facility] [employer] [facility] [id number] / / Sphere Alvin [id number] Std Reversed Aequalis Perform - [id number] Implanted:Qty: 1 on 02/18/2024 by Austin Zee, DO at [facility] Left: Shoulder [facility] 11/19/2028 [id number] / [id number] / Baseplate Alvin [id number] +3mm Lat Offset Augmented Aequalis - [id number] Implanted:Qty: 1 on 02/18/2024 by Austin Zee, DO at [facility] Left: Shoulder [facility] 12/18/2028 [id number] / [id number] / Retractor James 24mm For Shldr Sys Aequalis Reversed Ii - [id number] Implanted:Qty: 1 on 02/18/2024 by Austin Zee, DO at [facility] Left: Shoulder [facility] 07/01/2028 [id number] / [id number] / Stem Hum H130mm Dia7mm Yel Co Chrome Ally Niño James For - [id number] Implanted:Qty: 1 on 02/18/2024 by Austin Zee, DO at [facility] Left: Shoulder [facility] 06/22/2028 [id number] / [id number] / Cement Bone 40gm Hi Visc Palacos R - [id number] Implanted:Qty: 1 on 02/18/2024 by Austin Zee, DO at [facility] Left: Shoulder [facility] 06/03/2028 [id number] / / [id number] Insert Hum [id number] Thk+6mm Lat Reversed Frac Shldr Sys - [id number] Implanted:Qty: 1 on 02/18/2024 by Austin Zee, DO at [facility] Left: Shoulder [employer] 10/12/2027 [id number] / / [id number] Screw Bone L35mm Dia6.5mm Ti St Full Thrd Ctrl For Alvin - [id number] Implanted:Qty: 1 on 02/18/2024 by Austin Zee, DO at [facility] Left: Shoulder [employer] [id number] / / Screw Bone L22mm Dia5mm Ti St Full Thrd Periph For Alvin - [id number] Implanted:Qty: 1 on 02/18/2024 by Austin Zee, DO at [facility] Left: Shoulder [employer] [id number] / / Impl Capped Shoulder S3 Total Adv Reverse [employer] - [id number] Implanted:Qty: 1 on 02/18/2024 by Austin Zee, DO at [facility] Left: Shoulder [employer] [id number] EDICAL / / Explanted Type Area Ict Systems Test Engineer Device Identifier Shelf Expiration Date Model / Serial / Lot Kwire Drill Tip Recon [id number] - [id number] Explanted:Qty: 1 on 01/06/2024 by Austin Zee, DO at [facility] Right: Femur [employer] [id number] / / Kwire Thrd Recon [id number] - [id number] Explanted:Qty: 1 on 01/06/2024 by Austin Zee, DO at [facility] Right: Femur [employer] [id number] / / Kwire Drill Tip Recon [id number] - [id number] Explanted:Qty: 1 on 01/06/2024 by Austin Zee, DO at [facility] Right: Femur [employer] [id number] / / Guidewire Orthopedic 2.5x220 Mm Alvin Aequalis Perform - [id number] Explanted:Qty: 1 on 02/18/2024 by Austin Zee DO at [facility] Left: Shoulder [employer] 11/25/2028 [id number] / / [id number] Procedures Procedure Name Priority Date/Time Associated Diagnosis Comments DRAIN/INJECT LARGE JOINT/BURSA Routine 11/30/2024 5:15 AM EDT Lumbar pain XR SHOULDER LEFT (MIN 2 VIEWS) Routine 11/15/2024 10:25 AM EDT Pain Closed fracture of shaft of right femur with routine healing, unspecified fracture morphology, subsequent encounter Closed fracture of proximal end of left humerus with routine healing, unspecified fracture morphology, subsequent encounter Procedure Note - Isaiah Bueno PA - 11/15/2024 10:25 AM EDTThis note is in progress. History: 83 y.o. year old female status post intramedullary fixation Rightfemur Comparison: 05/17/2024 Findings: 2 views of the Right femur (AP/lateral) in a skeletally maturepatient showing redemonstration of orthopedic hardware in the form ofintramedullary nail to Right femur. No signs of hardware failure orloosening. Unchanged alignment. Interval callus formation when comparedto prior films. No new acute osseous abnormalities. No radiopaqueforeign bodies. Impression: Stable hardware Right femur History: 83-year-old female status post left reverse shoulderarthroplasty Comparison: 05/17/2024 Findings: 3 views of left shoulder (AP/Grashey/scapular Y) in a skeletallymature individual showing redemonstration of the left shoulderarthroplasty without any acute complication. No subluxations ordislocations visualized. Multiple bony ossicles consistent with proximalhumerus fracture once again visualized, but no change in alignment. Impression: Stable arthroplasty left proximal humerus XR FEMUR RIGHT (MIN 2 VIEWS) Routine 11/15/2024 10:25 AM EDT Pain Closed fracture of shaft of right femur with routine healing, unspecified fracture morphology, subsequent encounter Closed fracture of proximal end of left humerus with routine healing, unspecified fracture morphology, subsequent encounter Procedure Note - Isaiah Bueno PA - 11/15/2024 10:25 AM EDTThis note is in progress. History: 83 y.o. year old female status post intramedullary fixation Rightfemur Comparison: 05/17/2024 Findings: 2 views of the Right femur (AP/lateral) in a skeletally maturepatient showing redemonstration of orthopedic hardware in the form ofintramedullary nail to Right femur. No signs of hardware failure orloosening. Unchanged alignment. Interval callus formation when comparedto prior films. No new acute osseous abnormalities. No radiopaqueforeign bodies. Impression: Stable hardware Right femur History: 83-year-old female status post left reverse shoulderarthroplasty Comparison: 05/17/2024 Findings: 3 views of left shoulder (AP/Grashey/scapular Y) in a skeletallymature individual showing redemonstration of the left shoulderarthroplasty without any acute complication. No subluxations ordislocations visualized. Multiple bony ossicles consistent with proximalhumerus fracture once again visualized, but no change in alignment. Impression: Stable arthroplasty left proximal humerus from Last 3 Months Insurance [facility] MEDICARE Advance Directives * Full Code (Latest Code Status on File) Date Activated Date Inactivated Comments 02/17/2024 8:10 AM 02/23/2024 4:59 PM * Full Code Date Activated Date Inactivated Comments 01/05/2024 7:14 PM 01/13/2024 11:31 PM Healthcare Agents on File Name Relationship Healthcare Agent Relationshi p Communication Chava Diallo Spouse Primary Decision Maker Care Teams Bone Puller Relationship Specialty Start Date End Date Fatmata Adams, POULTRY BONER - KNUCKLE BENDER [address] [place] [address] PCP - General 01/06/24
--- OUTSIDE RECORDS SUMMARY | 2024-12-26 02:27 | XMS_ITS | Encounter Summary ---
Author Organization [facility] Address [address] [place] [address] Care Team Providers Care Emr Trainer Name Role Phone Fatmata Adams BEADING MACHINE OPERATOR - TECHNICIAN ANATOMIC PATHOLOGY Primary Care Provide r Reason for Visit * Reason Onset Date Comments Other 12/14/2024 Encounter Details Date Type Department Care Team (Late st Contact Info) Description 12/14/2024 Telephone [facility] [address] [facility] [address] [place] [phone] Yaneli Lui LPN Other Social History Tobacco Use Types Packs/Day Years Used Date Smoking Tobacco: Never Smokeless Tobacco: Never Interpersonal Safety Domain Source: IP Abuse Scr eening Answer Date Recorded Physical abuse Denies 01/05/2024 Verbal abuse Denies 01/05/2024 Emotional abuse Denies 01/05/2024 Financial abuse Denies 01/05/2024 Sexual abuse Denies 01/05/2024 Comments No Sex and Gender Information Value Date Recorded Sex Assigned at Not on file Legal Sex Female 2:48 PM EST Gender Identity Not on file Sexual Orientation Not on file documented as of this encounter Plan of Treatment Upcoming Encounters Date Type Department Care Team (Late st Contact Info) Description 02/16/2025 10:30 AM EDT Office Visit [facility] [address] [facility] [address] [place] [address] Isaiah Bueno PA [address] [facility] [address] [place] [address] 3mfu Lt shoulder, rt femur documented as of this encounter Visit Diagnoses Not on filedocumented in this encounter Care Teams Emr Trainer Relationship Specialty Start Date End Date Fatmata Adams, BEADING MACHINE OPERATOR - TECHNICIAN ANATOMIC PATHOLOGY [address] [place], [place] [phone] PCP - General 01/06/24 documented as of this encounter
--- OUTSIDE RECORDS SUMMARY | 2024-12-26 02:27 | XMS_ITS | Encounter Summary ---
Author Organization [facility] Address [address] [place] [address] Care Team Providers Care Laundry Manager Name Role Phone Fatmata Adams APRN [facility] Primary Care Provide r Reason for Referral * Imaging (Routine) - Closed Specialty Diagnoses / Procedures Referred By Brianna christensen Referred To Contact Radiology Diagnoses Nonintractable headache, unspecified chronicity pattern, unspecified headache type Procedures MRI BRAIN WO CONTRAST Fatmata Adams APRN - GIMP TACKER [address] [place] [address] Phone: tel: fax: Referral ID Status Reason Start Date Expiration Date Visits Re quested Visits Authorized [id number] Closed 08/09/2022 08/09/2023 1 1 Encounter Details Date Type Department Care Team (Latest Contact Info) Description 08/09/2022 Transcribe Orders Chin Pre Access [address] [place] [address] [phone] Fatmata Adams, PRIVACY ANALYST - [facility] [address] [place] [address] Nonintractable headache, unspecified chronicity pattern, unspecified headache type (Primary Dx) Social History Tobacco Use Types Packs/Day Years [...] Description 02/16/2025 10:30 AM EDT Office Visit [facility] [address] [facility] [address] [place] [address] Isaiah Bueno PA [address] [facility] [address] [place] [address] 3mfu Lt shoulder, rt femur Scheduled Orders Name Type Priority Associated Diagnoses Orde r Schedule MRI BRAIN WO CONTRAST Imaging Routine Nonintractable headache, unspecified chronicity pattern, unspecified headache type Expected: 08/09/2022, Expires: 08/09/2023 documented as of this encounter Visit Diagnoses Diagnosis Nonintractable headache, unspecified chronicity pattern, unspecified headache type- Primary documented in this encounter Care Teams Laundry Manager Relationship Specialty Start Date End Date Fatmata Adams, PRIVACY ANALYST - GIMP TACKER [address] [place] [phone] PCP - General 01/06/24 documented as of this encounter
--- NOTE | 2024-12-26 02:40 | PC.NURSE ---
this patient complains of chronic lower back pain, was seen here a couple days ago for this lower back pain no recent falls, injury or trauma to cause this lower back pain this patient requested to remain in the wheel chair
--- NOTE | 2024-12-26 03:08 | ED.BACK1 ---
HPI HPI - Back Pain/Injury General Chief Complaint: Back Pain/Injury Stated Complaint: back pain Time Seen by Provider: 12/26/24 02:30 Source: patient Mode of arrival: Wheelchair Limitations: no limitations History of Present Illness HPI Narrative: cc - intractable back pain This 84-year-old female had a fall 11 months ago resulting in a subdural hematoma and a fracture of the midshaft of the right femur for which she underwent open reduction and internal fixation.? A few months after that she started noticing right gluteal and lateral right hip and thigh pain.? She has been treated for this on and off and was seen in this emergency department on December 22, 2024.? Prior to that she had been evaluated on December 14, 2024.? She was placed on steroids, gabapentin and diclofenac before eventually being told to stop the diclofenac and being placed on opiates and Colace.? She had an MRI of the lumbar spine in mid December which showed extensive degenerative changes and evidence of right-sided nerve impingement, as well as disc herniation in the lower lumbar spine.? A right iliopsoas muscle surface mass was also reported.? The patient was scheduled to see an orthopedist in [place] in January, but she is trying to get in with one of the orthopedists associated with Dr[facility] if she can get in sooner.? Patient presents with acute exacerbation of her chronic underlying low back pain. This is her third emergency department visit in the last 2 weeks. On the last one, she was offered admission but declined. Dr. Rayo told her to return to the ED if she did not receive improvement with home medications. She has not improved and now has returned for reevaluation and expectation of admission. No relief in her symptoms despite taking opiates, which have now caused some constipation. She did pass a small amount of stool in the last 12 hours. No nausea, vomiting or abdominal pain. She has decreased appetite for solid foods but she is able to take in fluids normally. No urinary symptoms. No fever or chills. No cough or URI symptoms. Related Data Home Medications ?Medication ?Instructions ?Recorded ?Confirmed simvastatin 10 mg tablet 10 mg PO DAILY 01/05/24 12/22/24 warfarin 2.5 mg tablet 2.5 mg PO DAILY 01/05/24 12/22/24 alendronate 70 mg tablet 70 mg PO .weekly 12/13/24 12/22/24 diclofenac sodium 75 mg 75 mg PO BID PRN pain 12/13/24 12/22/24 tablet,delayed release diltiazem HCl 60 mg tablet 60 mg PO DAILY 12/13/24 12/22/24 metoprolol tartrate 25 mg tablet 12.5 mg PO BID 12/13/24 12/22/24 ascorbic acid (vitamin C) 500 mg 500 mg PO DAILY 12/22/24 12/22/24 tablet gabapentin 100 mg capsule 100 mg PO .QHS 12/22/24 12/22/24 Previous Rx's ?Medication ?Instructions ?Recorded hydrocodone 5 mg-acetaminophen 325 1 tab PO TID PRN pain #15 tabs 12/22/24 mg tablet Allergies Allergy/AdvReac Type Severity Reaction Status Date / Time Sulfa (Sulfonamide Allergy Unknown Verified 12/26/24 02:36 Antibiotics) Opioid HPI Opioid Management Most Recent Opioid Data: Last Pain Scale 4 Today, 06:04 Last ED Pain Assessment Today, 06:04 Last MAR Pain Assessment Today, 03:33 [facility] Social History Little interest or pleasure in doing things: not at all Feeling down, depressed, or hopeless: not at all Exam Narrative Exam Narrative: General: Alert, no acute distress, patient resting comfortably Skin: warm, intact, no pallor noted Head: Normocephalic, atraumatic HEENT: Slightly dry oral mucosa Cardiovascular: Regular Rate and Rhythm without murmur, gallop or rub. Respiratory: No acute distress Abdomen: Normal bowel sounds, soft, nontender, no masses detected. No rebound, guarding, or rigidity noted. Back: inspection of the back shows no obvious deformity, no swelling, no ecchymosis, contusion, abrasion, swelling, erythema, fluctuance or induration. Tenderness noted to right paralumbar area. Straight leg raise testing is limited due to the size of the patient's legs in her position in the wheelchair in which she is currently sitting. She does not want to get into the ED cot No CVA tenderness noted bilaterally. Musculoskeletal: No deformity noted to bilateral lower extremities. no cyanosis or mottling noted. 1+ pitting bilateral lower extremity edema. Normal sensation noted to both lower extremities. Neurological: AAOx4, normal sensory and motor observed. L5-S1 reflexes intact symmetrically. DTR 2+ at patellar bilaterally. Psychiatric: Cooperative and interactive. Constitutional Vital Signs, click to edit/add: Last Vital Signs Temp 98.8 F 12/26/24 02:36 Pulse 87 12/26/24 04:18 Resp 19 12/26/24 04:18 BP 124/82 12/26/24 04:52 Pulse Ox 96 12/26/24 04:18 O2 Del Method Room Air 12/26/24 02:36 Course Vital Signs Vital signs: Vital Signs Temperature 98.8 F 12/26/24 02:36 Pulse Rate 113 H 12/26/24 02:36 Respiratory Rate 21 H 12/26/24 02:36 Blood Pressure 156/77 H 12/26/24 02:36 Pulse Oximetry 98 12/26/24 02:36 Oxygen Delivery Method Room Air 12/26/24 02:36 Temperature 98.8 F 12/26/24 02:36 Pulse Rate 87 12/26/24 04:18 Respiratory Rate 19 12/26/24 04:18 Blood Pressure 124/82 12/26/24 04:52 Pulse Oximetry 96 12/26/24 04:18 Oxygen Delivery Method Room Air 12/26/24 02:36 MDM - Back Pain/Injury MDM Narrative Medical decision making narrative: Patient presents with acute exacerbation of her chronic underlying low back pain. This is her third emergency department visit in the last 2 weeks. On the last 1, she was offered admission but declined. Dr. Rayo told her to return to the ED if she did not receive improvement with home medications. She has not improved and now has returned for reevaluation and expectation of admission. No relief in her symptoms despite taking opiates, which have now caused some constipation. She did pass a small amount of stool in the last 12 hours. No nausea, vomiting or abdominal pain. She has decreased appetite for solid foods but she is able to take in fluids normally. No urinary symptoms. No fever or chills. No cough or URI symptoms. Peripheral IV established and blood drawn and sent for testing. She was ordered to receive IV Zofran so that she would not have any nausea when she received the IV morphine that I ordered for her. This is a chronic condition with acute exacerbation and she has undergone numerous testing modalities for this including recent MRI. There is no benefit to getting x-ray or CT scan at this time. She was found to have tachycardia and therefore lactate and blood cultures were ordered for this patient. After review of labs, she will be admitted upstairs to Dr. Rayo's service for intractable low back pain secondary to sciatica. Patient stated that she was unable to give us a urine sample. White blood cell count was normal but lactate was elevated. I ordered the patient to receive IV Rocephin for coverage of potential sepsis. Urine was once again requested and the patient was unable to give a sample. Pain was initially controlled with morphine but it started to return and @ 0450 she requested more pain medicine. I ordered IV Dilaudid and IV Solu-medrol to be given. @ 0530 She was brought to the bathroom to get a urine sample - UA was negative for infection. @[address] Rayo to discuss admission. he is familiar with this patient and [facility] Data Attestation: I reviewed the patient's lab results. Labs: Lab Results 12/26/24 12/26/24 Range/Units 03:25 05:28 WBC 6.5 (4.0-11.0) 10^3/uL RBC 4.01 L (4.20-5.40) 10^6/uL Hgb 12.2 (12.0-16.0) g/dL Hct 37.2 (36.0-48.0) % MCV 92.8 (81.0-99.0) fL MCH 30.4 (26.7-34.0) pg MCHC 32.8 (29.9-35.2) g/dL RDW 16.7 H (11.0-15.0) % Plt Count 220 (150-450) 10^3/uL MPV 11.7 (9.5-13.5) fL Neut % (Auto) 70.4 (43.0-75.0) % Lymph % (Auto) 15.7 L (20.5-60.0) % Dent % (Auto) 11.6 (1.7-12.0) % Eos % (Auto) 1.6 (0.9-7.0) % Baso % (Auto) 0.5 (0.2-2.0) % Neut # (Auto) 4.6 (1.4-6.5) 10^3/uL Lymph # (Auto) 1.0 L (1.2-3.8) 10^3/uL Dent # (Auto) 0.8 (0.3-0.8) 10^3/uL Eos # (Auto) 0.1 (0.0-0.7) 10^3/uL Baso # (Auto) 0.0 (0.0-0.1) 10^3/uL Abs Immat Gran (auto) 0.01 (0.00-0.03) 10^3/uL Imm/Tot Granulo (auto) 0.2 (0.0-0.5) % Sodium 141 (136-145) mmol/L Potassium 4.2 (3.5-5.1) mmol/L Chloride 106 (98-107) mmol/L Carbon Dioxide 27.8 (21.0-32.0) mmol/L Anion Gap 11.4 BUN 18.0 (7.0-18.0) mg/dL Creatinine 0.90 (0.55-1.02) mg/dL Est GFR ( Amer) >60 (>=60 mL/min/1.73m^2) Est GFR (Non-Af Amer) 60 (>=60 mL/min/1.73m^2) BUN/Creatinine Ratio 20.0 Glucose 112 H (74-106) mg/dL Lactate 2.7 H* (0.4-2.0) mmol/L Calcium 9.3 (8.5-10.1) mg/dL Urine Color Yellow (YELLOW) Urine Clarity Clear (CLEAR) Urine pH 6.0 (5.0-9.0) Ur Specific [place] 1.025 (1.005-1.025) Urine Protein Negative (NEG/TRACE) mg/dL Urine Glucose (UA) Negative (NEGATIVE) mg/dL Urine Ketones Negative (NEGATIVE) mg/dL Urine Occult Blood Negative (NEGATIVE) Urine Nitrite Negative (NEGATIVE) Urine Bilirubin Negative (NEGATIVE) Urine Urobilinogen 0.2 (0.2-1.0) EU/dL Ur Leukocyte Esterase Negative (NEGATIVE) Discharge Plan Discharge Chief Complaint: Back Pain/Injury Clinical Impression: Intractable low back pain, Sepsis, Acute right-sided back pain with sciatica, Right lumbar radiculopathy Patient Disposition: Admitted As Inpatient Time of Disposition Decision: 03:15
[2024-12-26] MEDS: ONDANSETRON PF 4 MG/2 ML VIAL IV (03:33)
[2024-12-26] MEDS: MORPHINE SULFATE 4 MG/ML VIAL IV (03:33)
[2024-12-26 03:36] LABS: Basophils Percent Auto 0.5 % (0.2-2.0); Eosinophils Absolute Auto 0.1 10^3/uL (0.0-0.7); Eosinophils Percent Auto 1.6 % (0.9-7.0); Hematocrit 37.2 % (36.0-48.0); Hemoglobin 12.2 g/dL (12.0-16.0); Immature Granulocytes Abs Auto 0.01 10^3/uL (0.00-0.03); Immature Granulocytes Pct Auto 0.2 % (0.0-0.5); Lymphocytes Percent Auto 15.7 % (20.5-60.0); Mean Corpuscular HGB Conc 32.8 g/dL (29.9-35.2); Mean Corpuscular Hemoglobin 30.4 pg (26.7-34.0); Mean Corpuscular Volume 92.8 fL (81.0-99.0); Mean Platelet Volume 11.7 fL (9.5-13.5); Monocytes Absolute Auto 0.8 10^3/uL (0.3-0.8); Monocytes Percent Auto 11.6 % (1.7-12.0); Neutrophils Absolute Auto 4.6 10^3/uL (1.4-6.5); Neutrophils Percent Auto 70.4 % (43.0-75.0); Platelet Count 220 10^3/uL (150-450); Red Blood Count 4.01 10^6/uL (4.20-5.40); Red Cell Distribution Width 16.7 % (11.0-15.0); White Blood Count 6.5 10^3/uL (4.0-11.0)
[2024-12-26 03:57] LABS: Anion Gap 11.4; Calcium 9.3 mg/dL (8.5-10.1); Carbon Dioxide 27.8 mmol/L (21.0-32.0); Chloride 106 mmol/L (98-107); Estimated GFR (African America >60 (>=60 mL/min/1.73m^2); Estimated GFR (Non-African Ame 60 (>=60 mL/min/1.73m^2); Glucose 112 mg/dL (74-106); Potassium 4.2 mmol/L (3.5-5.1); Sodium 141 mmol/L (136-145)
[2024-12-26 04:17] LABS: Lactate/Lactic Acid 2.7 mmol/L (0.4-2.0)
[2024-12-26] MEDS: 0.9 % SODIUM CHLORIDE 1,000 ML 250 ML IV (04:20)
[2024-12-26] MEDS: CEFTRIAXONE 1,000 MG in 0.9 % SODIUM CHLORIDE 50 ML 100 MG IV (05:02)
[2024-12-26] MEDS: HYDROMORPHONE HCL 1 MG/ML CARTRIDGE IVP (05:30)
[2024-12-26] MEDS: METHYLPREDNISOLONE SOD SUCC PF 125 MG/2 ML VIAL IVP ×4 (05:31→22:17)
[2024-12-26 05:41] LABS: Bilirubin Urine NEGATIVE (NEGATIVE); Blood Urine NEGATIVE (NEGATIVE); Clarity Urine CLEAR (CLEAR); Color Urine YELLOW (YELLOW); Glucose Urine UA NEGATIVE (NEGATIVE); Ketones Urine NEGATIVE (NEGATIVE); Leukocyte Esterase Urine NEGATIVE (NEGATIVE); Nitrite Urine NEGATIVE (NEGATIVE); Protein Urine NEGATIVE (NEG/TRACE); Specific Gravity Urine 1.025 (1.005-1.025); Urobilinogen Urine 0.2 EU/dL (0.2-1.0)
[2024-12-26 05:42] LABS: Urine Microscopic Indicated NO
[2024-12-26 06:53] LABS: Lactate/Lactic Acid 2.4 mmol/L (0.4-2.0)
--- NOTE | 2024-12-26 06:53 | PC.NURSE ---
this patient and her son informed that the patient's room number will be 230, and Alta will call me when she is ready for you. this patient and her son voices no concerns and this patient shows no signs of distress
[2024-12-26 08:54] LABS: Alanine Aminotransferase 26 U/L (14-59); Albumin Globulin Ratio 0.9; Albumin Level 2.8 g/dL (3.4-5.0); Alkaline Phosphatase 87 U/L (46-116); Aspartate Amino Transferase 23 U/L (15-37); Bilirubin Direct 0.3 mg/dL (0.0-0.2); Bilirubin Total 0.9 mg/dL (0.2-1.0); Globulin 3.2 g/dL; Magnesium 1.5 mg/dL (1.8-2.4); Thyroid Stimulating Hormone 4.911 uIU/mL (0.358-3.740)
[2024-12-26 08:57] LABS: Troponin I High Sensitivity 12.8 pg/mL (4.0-51.3)
[2024-12-26 08:58] LABS: INR 1.36; Partial Thromboplastin Time 27.6 sec (22.3-36.2)
[2024-12-26] MEDS: KETOROLAC TROMETHAMINE 30 MG/ML VIAL 15 MG IVP ×3 (09:54→20:43)
[2024-12-26] MEDS: ENSURE HP 237 ML LIQUID PO ×2 (09:54→13:42)
[2024-12-26] MEDS: GABAPENTIN 100 MG CAPSULE PO (09:54)
[2024-12-26] MEDS: DILTIAZEM HCL 60 MG TABLET PO (09:54)
[2024-12-26] MEDS: METOPROLOL TARTRATE 25 MG TABLET 12.5 MG PO ×2 (09:54→20:43)
[2024-12-26] MEDS: ORPHENADRINE 60 MG/2 ML VIAL 30 MG IV ×2 (09:55→20:43)
--- NOTE | 2024-12-26 10:50 | P.HP_ITS ---
HPI H&P: HPI History of Present Illness Chief complaint: back pain, INTRACTABLE BACK PAIN Narrative: Patient was seen and evaluated in the emergency room a few days ago, due to increasing back pain, she was given medication there was some improvement and she was able to ambulate in the emergency room, we discussed increasing her gabapentin, and then continuing to pursue outpatient evaluation which she has a visit with Dr. Hayes coming up in a week and a half, but at home her pain continued to deteriorate, she decreased her oral intake secondary to not wanting to wanting to go to the bathroom, with the pain worsening especially right lower extremity with now progressing to some weakness secondary to the pain, she Gloria presented to the emergency room for evaluation, MRI scan was reviewed patient will be admitted for workup and treatment of same I saw patient up in the medical surgical floor, resting comfortably in bed, does have pain with any movement, especially focusing on the right side of her back and down into her right leg, denies any other complaints, she does have a positive lactate from the ER as well as an elevated BNP the patient denies chest pain or shortness of breath she does have significant peripheral edema however Opioid HPI Opioid Management Most Recent Pain and Opioid Data: Last Pain Scale 5 Today, 10:10 Last Pain Assessment Today, 09:28 Last ED Pain Assessment Today, 06:04 Last MAR Pain Assessment Today, 03:33 Last ORT Total Score 0 Today, 09:25 Last ORT Risk Category Low Risk Today, 09:25 Review of Systems ROS Status of ROS 10 or more systems reviewed and unremark able except as noted in history and below PFS PFS Medical History (Updated 12/26/24 @ 12:05 by James Rayo MD) High cholesterol ?E78.00 - Pure hypercholesterolemia, unspecified (ICD-10) Atrial fibrillation ?I48.91 - Unspecified atrial fibrillation (ICD-10) Hypertension ?I10 - Essential (primary) hypertension (ICD-10) Surgical History (Updated 12/26/24 @ 09:21 by Alta Culp RN) 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.612 - Presence of left artificial shoulder joint (ICD-10) History of hysterectomy ?Z90.710 - Acquired absence of both cervix and uterus (ICD-10) Family History (Updated 12/26/24 @ 09:22 by Alta Culp RN) Father Family history of myocardial infarction Social History (Updated 12/26/24 @ 09:23 by Alta Culp RN) Within the past year, how often did you have a drink containing alcohol: 2-4 times a month Smoking status: Former smoker Non-prescribed substance use: denies use Highest level of school completed/degree received: GED or equivalent Little interest or pleasure in doing things: not at all Feeling down, depressed, or hopeless: not at all Meds Home Medications and Allergies Home Medications ?Medication ?Instructions ?Recorded ?Confirmed ?Type simvastatin 10 mg tablet 10 mg PO QPM 01/05/24 History warfarin 2.5 mg tablet 2.5 mg PO DAILY 01/05/24 History alendronate 70 mg tablet 70 mg PO .weekly 12/13/24 History diclofenac sodium 75 mg 75 mg PO BID PRN pain 12/26/24 History tablet,delayed release diltiazem HCl 60 mg tablet 60 mg PO DAILY 12/13/24 History metoprolol tartrate 25 mg tablet 12.5 mg PO BID 12/26/24 History gabapentin 100 mg capsule 100 mg PO .QHS 12/22/2412/03 History cholecalciferol (vitamin D3) 50 50 mcg PO DAILY 12/26/24 History mcg (2,000 unit) tablet hydrocodone 5 mg-acetaminophen 325 1 tab PO Q8H PRN pa in 12/26/24 12/26/24 History mg tablet ondansetron HCl 4 mg tablet 4 mg PO Q6H PRN nausea and vomiting 12/26/24 12/26/24 History Allergies Allergy/AdvReac Type Severity Reaction Status Date / Time Sulfa (Sulfonamide Allergy Unknown Verified 12/26/24 02:36 Antibiotics) Exam Constitutional Vital Signs, click to edit/add: Last Vital Signs Temp 98.8 F 12/26/24 02:36 Pulse 87 12/26/24 04:18 Resp 19 12/26/24 04:18 BP 124/82 12/26/24 04:52 Pulse Ox 96 12/26/24 04:18 O2 Del Method Room Air 12/26/24 02:36 Documenting provider has reviewed patient's vital signs: yes Common normals: apparent distress (Moderate painful distress with any movement) Chest Common normals: inspection of chest normal Respiratory Common normals: normal respiratory effort and no retractions Cardio Common normals: no murmurs Rate: tachycardic Rhythm: abnormal rhythm GI Common normals: Normal to inspection, nondistended, normoactive bowel sounds present, soft to palpation and non-tender Extremity Common normals: abnormal to inspection (3 + edema) Neuro Common normals: oriented x3, CN's II-XII intact bilaterally and moves all extremities Sensorium/orientation: oriented to person, oriented to place and oriented to time Results Labs Labs: Short CBC 12/26/24 Range/Units 03:25 WBC 6.5 (4.0-11.0) 10^3/uL Hgb 12.2 (12.0-16.0) g/dL Hct 37.2 (36.0-48.0) % Plt Count 220 (150-450) 10^3/uL BMP 12/26/24 03:25 Sodium 141 Potassium 4.2 Chloride 106 Carbon Dioxide 27.8 BUN 18.0 Creatinine 0.90 Glucose 112 H Calcium 9.3 Liver Function 12/26/24 Range/Units 03:25 Total Bilirubin 0.9 (0.2-1.0) mg/dL Direct Bilirubin 0.3 H (0.0-0.2) mg/dL AST 23 (15-37) U/L ALT 26 (14-59) U/L Alkaline Phosphatase 87 (46-116) U/L Albumin 2.8 L (3.4-5.0) g/dL Urine 12/26/24 Range/Units 05:28 Urine Color Yellow (YELLOW) Urine Clarity Clear (CLEAR) Urine pH 6.0 (5.0-9.0) Ur Specific [place] 1.025 (1.005-1.025) Urine Protein Negative (NEG/TRACE) mg/dL Urine Glucose (UA) Negative (NEGATIVE) mg/dL Assessment and Plan Assessment and Plan (1) Acute right-sided back pain with sciatica: (2) Intractable low back pain: (3) Right lumbar radiculopathy: (4) Atrial fibrillation: (5) Hypertension: (6) High cholesterol: (7) Acute diastolic heart failure: (8) Hypomagnesemia: (9) Lactic acidosis: Plan Admission findings: Sinus tachycardia and respiratory distress secondary to pain secondary to lumbar radiculopathy with right lower extremity radiculopathy and some weakness secondary to the pain with movement, in ER also found to have significant lactic acidosis without infectious etiology but acute diastolic heart failure L5 radiculopathy-steroids, low-dose Toradol and Norflex, IV pain medication for pain control, physical therapy to evaluate patient, if not improving may need to consider transfer for urgent surgical intervention Acute diastolic heart failure-diuresed today, compression hose, repeat labs in a.m. troponin negative Atrial fibrillation with: Controlled ventricular response but INR is low, give extra dose today Hypomagnesemia-supplement Lactic acidosis-uncertain etiology, monitor for symptoms, patient started on antibiotics in ER will maintain Hypercholesterolemia maintain home medications Admission status: Patient mated with intractable low back pain after failed outpatient treatment and frequent ER visit, significant radiculopathy with weakness secondary to pain of right lower extremity, medically necessary treatment will span 2 midnights. Inpatient status. IV pain medication needed continue close monitoring of vital signs
[2024-12-26] MEDS: POLYETHYLENE GLYCOL 3350 17 GM POWDER PACKET PO (12:30)
[2024-12-26] MEDS: FUROSEMIDE 40 MG/4 ML VIAL IVP ×2 (12:30→22:17)
[2024-12-26] MEDS: WARFARIN SODIUM 5 MG TABLET PO (16:27)
[2024-12-26] MEDS: MAGNESIUM OXIDE 400 MG TABLET PO (20:43)
[2024-12-26] MEDS: GABAPENTIN 300 MG CAPSULE PO (22:16)
[2024-12-27] VITALS (9 sets, daily range): BP systolic 101–139; BP diastolic 64–91; PULSE 63–104; TEMP 36.4–36.6; O2SAT 91–97
[2024-12-27] MEDS: KETOROLAC TROMETHAMINE 30 MG/ML VIAL 15 MG IVP ×4 (04:12→21:08)
[2024-12-27] MEDS: METHYLPREDNISOLONE SOD SUCC PF 125 MG/2 ML VIAL IVP (04:12)
[2024-12-27] MEDS: CEFTRIAXONE 1,000 MG in 0.9 % SODIUM CHLORIDE 50 ML 100 MG IV (04:13)
[2024-12-27] MEDS: LEVOTHYROXINE SODIUM 25 MCG TABLET PO (05:56)
[2024-12-27 07:17] LABS: Hematocrit 31.1 % (36.0-48.0); Hemoglobin 10.4 g/dL (12.0-16.0); Mean Corpuscular HGB Conc 33.4 g/dL (29.9-35.2); Mean Corpuscular Hemoglobin 30.7 pg (26.7-34.0); Mean Corpuscular Volume 91.7 fL (81.0-99.0); Platelet Count 221 10^3/uL (150-450); Red Blood Count 3.39 10^6/uL (4.20-5.40); Red Cell Distribution Width 16.5 % (11.0-15.0); White Blood Count 7.9 10^3/uL (4.0-11.0)
[2024-12-27 07:38] LABS: Anion Gap 13.6; BUN Creatinine Ratio 28.1; Calcium 8.6 mg/dL (8.5-10.1); Carbon Dioxide 29.3 mmol/L (21.0-32.0); Chloride 106 mmol/L (98-107); Estimated GFR (African America >60 (>=60 mL/min/1.73m^2); Estimated GFR (Non-African Ame 55 (>=60 mL/min/1.73m^2); Glucose 163 mg/dL (74-106); Potassium 3.9 mmol/L (3.5-5.1); Sodium 145 mmol/L (136-145)
[2024-12-27 07:39] LABS: INR 1.34; Prothrombin Time 13.8 sec (9.0-11.6)
[2024-12-27 07:58] LABS: Band Neutrophils Absolute 0.1 10^3/uL (0.0-0.3); Lymphocytes Absolute Manual 0.23 10^3/uL (1.20-3.80); Monocytes Absolute Manual 0.15 10^3/uL (0.30-0.80); Segmented Neut Absolute Manual 7.42 10^3/uL (1.4-6.5)
[2024-12-27 07:59] LABS: Anisocytosis 1+
--- NOTE | 2024-12-27 08:07 | P.PN_ITS ---
Exam Constitutional Vital Signs, click to edit/add: Last Vital Signs Temp 97.8 F 12/27/24 07:53 Pulse 89 12/27/24 07:53 Resp 18 12/27/24 07:53 BP 131/83 12/27/24 07:53 Pulse Ox 96 12/27/24 07:53 O2 Del Method Room Air 12/27/24 07:53 Progress Note: Objective Labs Labs: Short CBC 12/27/24 Range/Units 06:44 WBC 7.9 (4.0-11.0) 10^3/uL Hgb 10.4 L (12.0-16.0) g/dL Hct 31.1 L (36.0-48.0) % Plt Count 221 (150-450) 10^3/uL BMP 12/27/24 06:44 Sodium 145 Potassium 3.9 Chloride 106 Carbon Dioxide 29.3 BUN 27.0 H Creatinine 0.96 Glucose 163 H Calcium 8.6 Liver Function 12/26/24 Range/Units 03:25 Total Bilirubin 0.9 (0.2-1.0) mg/dL Direct Bilirubin 0.3 H (0.0-0.2) mg/dL AST 23 (15-37) U/L ALT 26 (14-59) U/L Alkaline Phosphatase 87 (46-116) U/L Albumin 2.8 L (3.4-5.0) g/dL Progress Note: A&P Assessment and Plan (1) Acute right-sided back pain with sciatica: (2) Intractable low back pain: (3) Right lumbar radiculopathy: (4) Atrial fibrillation: (5) Hypertension: (6) High cholesterol: (7) Acute diastolic heart failure: (8) Hypomagnesemia: (9) Lactic acidosis: Plan Admission findings: Sinus tachycardia and respiratory distress secondary to pain secondary to lumbar radiculopathy with right lower extremity radiculopathy and some weakness secondary to the pain with movement, in ER also found to have significant lactic acidosis without infectious etiology but acute diastolic heart failure L5 radiculopathy-steroids, low-dose Toradol and Norflex, IV pain medication for pain control, physical therapy to evaluate patient, so far with current treatment pain is improving, physical therapy to evaluate patient tomorrow, likely needs rehab Acute diastolic heart failure-IV Lasix given twice daily yesterday without any significant improvement with only 1 L diuresed BNP is higher today we will try patient on Bumex drip, echocardiogram in a.m. Atrial fibrillation with: Controlled ventricular response but INR is low, give extra dose again today Iron deficiency anemia-monitor daily Hypomagnesemia-supplement Lactic acidosis-uncertain etiology, monitor for symptoms, patient started on antibiotics in ER will maintain Hypercholesterolemia maintain home medications Admission status: Patient with acute diastolic heart failure not responding to IV therapy will require IV Bumex drip today, echocardiogram tomorrow, medically necessary treatment spanning more than 2 midnights. Inpatient status ?
[2024-12-27] MEDS: METOPROLOL TARTRATE 25 MG TABLET 12.5 MG PO ×2 (09:17→21:07)
[2024-12-27] MEDS: DILTIAZEM HCL 60 MG TABLET PO (09:17)
[2024-12-27] MEDS: PANTOPRAZOLE SODIUM 40 MG TABLET.DR PO (09:18)
[2024-12-27] MEDS: MAGNESIUM OXIDE 400 MG TABLET PO ×2 (09:18→21:07)
[2024-12-27] MEDS: ORPHENADRINE 60 MG/2 ML VIAL 30 MG IV ×2 (09:18→21:07)
[2024-12-27] MEDS: ENSURE HP 237 ML LIQUID PO ×2 (09:19→14:20)
[2024-12-27] MEDS: BUMETANIDE 10 MG in 0.9 % SODIUM CHLORIDE 160 ML 20 MG IV (09:19)
[2024-12-27] MEDS: POLYETHYLENE GLYCOL 3350 17 GM POWDER PACKET PO (09:19)
[2024-12-27] MEDS: GABAPENTIN 100 MG CAPSULE PO (09:24)
[2024-12-27] MEDS: METHYLPREDNISOLONE SOD SUCC PF 125 MG/2 ML VIAL 60 MG IVP ×3 (11:23→23:32)
[2024-12-27] MEDS: WARFARIN SODIUM 5 MG TABLET PO (16:45)
[2024-12-27] MEDS: GABAPENTIN 300 MG CAPSULE PO (21:07)
[2024-12-28] VITALS (8 sets, daily range): BP systolic 105–143; BP diastolic 60–87; PULSE 55–81; TEMP 36.4–36.7; O2SAT 92–98
[2024-12-28] MEDS: KETOROLAC TROMETHAMINE 30 MG/ML VIAL 15 MG IVP (03:56)
[2024-12-28] MEDS: CEFTRIAXONE 1,000 MG in 0.9 % SODIUM CHLORIDE 50 ML 100 MG IV (04:15)
[2024-12-28] MEDS: METHYLPREDNISOLONE SOD SUCC PF 125 MG/2 ML VIAL 60 MG IVP (04:15)
[2024-12-28 05:18] LABS: Basophils Percent Auto 0.1 % (0.2-2.0); Hemoglobin 11.2 g/dL (12.0-16.0); Immature Granulocytes Abs Auto 0.03 10^3/uL (0.00-0.03); Immature Granulocytes Pct Auto 0.3 % (0.0-0.5); Lymphocytes Absolute Auto 0.5 10^3/uL (1.2-3.8); Mean Corpuscular HGB Conc 32.9 g/dL (29.9-35.2); Mean Corpuscular Hemoglobin 30.3 pg (26.7-34.0); Mean Corpuscular Volume 91.9 fL (81.0-99.0); Mean Platelet Volume 11.9 fL (9.5-13.5); Monocytes Absolute Auto 0.3 10^3/uL (0.3-0.8); Monocytes Percent Auto 2.6 % (1.7-12.0); Neutrophils Absolute Auto 10.9 10^3/uL (1.4-6.5); Platelet Count 231 10^3/uL (150-450); Red Cell Distribution Width 16.8 % (11.0-15.0); White Blood Count 11.7 10^3/uL (4.0-11.0)
[2024-12-28 05:29] LABS: Anion Gap 12.2; Calcium 8.6 mg/dL (8.5-10.1); Carbon Dioxide 34.1 mmol/L (21.0-32.0); Chloride 105 mmol/L (98-107); Estimated GFR (African America 57 (>=60 mL/min/1.73m^2); Estimated GFR (Non-African Ame 47 (>=60 mL/min/1.73m^2); Glucose 146 mg/dL (74-106); Potassium 3.3 mmol/L (3.5-5.1); Prothrombin Time 19.8 sec (9.0-11.6); Sodium 148 mmol/L (136-145)
[2024-12-28] MEDS: LEVOTHYROXINE SODIUM 25 MCG TABLET PO (05:33)
--- NOTE | 2024-12-28 06:00 | CA_ITS ---
Patient Name: MARIA GUADALUPE JAIN MR#: [id number] : 1940 Exam Date: 12/28/2024 Ordering Doctor: DR MOISES SANCHEZ . ECHOCARDIOGRAM REPORT PROCEDURE: CA ECHO DOPPLER COMPLETE INDICATIONS: elevated bnp, atrial fibrillation, hypertension COMPARISON: None. DESCRIPTION: COMPLETE ECHOCARDIOGRAM Real-time transthoracic echocardiography with 2D, M-mode, spectral and color flow Doppler performed. QUALITY: Technical quality was good. LEFT VENTRICLE: Normal chamber size. Thickened septal wall. Systolic function is at the lower limits of normal. LV EF: Lower limits of normal left ventricular ejection fraction, (50-55%). DIASTOLIC: Not adequately assessed due to heart rhythm. ATRIAL SEPTUM: Visually appears intact. LEFT ATRIUM: Moderate dilatation. RIGHT ATRIUM: Severe dilatation. RIGHT VENTRICLE: Moderate dilatation. Mildly reduced right ventricular systolic function. TRICUSPID VALVE: Normal mobility and thickness. No stenosis with moderate to severe regurgitation. Doppler studies reveal moderately (45-60) elevated right sided pressures. RVSP 49 mmHg MITRAL VALVE: Normal mobility and thickness. No evidence of mitral valve stenosis. There is no mitral annular calcification. Mild mitral regurgitation. AORTIC VALVE: Normal trileaflet appearance. Mildly calcified aortic valve. Normal leaflet mobility. No evidence of aortic valve stenosis. Trivial aortic regurgitation. AORTIC ROOT: Normal diameter and appearance, measuring 3.2 cm. PULMONIC VALVE: Normal thickness and mobility. No stenosis. Mild regurgitation. PERICARDIUM: No evidence of pericardial effusion. IVC: IVC is normal in size, does not collapse. PLEURA: CONCLUSION: 1. The left ventricular is normal in size and exhibits low normal systolic function. Estimated LVEF is 50 to 55%. 2. Moderately dilated right ventricle with mildly reduced systolic function. 3. Moderate left and severe right atrial dilatation. 4. Moderate to severe tricuspid regurgitation. 5. Mild mitral and pulmonic regurgitation. 6. Moderately elevated right-sided pressures. RVSP is 49 mmHg. Adult Echocardiography Procedure Report Left Ventricle LVEDD (3.7 - 5.6 cm): 5.12 cm LVESD (2.2 - 4.0 cm): 3.62 cm LVIVS thickness (0.6 - 1.2 cm): 1.12 cm LVPW thickness (0.5 - 1.0 cm): 0.94 cm LVOT Max Gradient: 1.36 mm[Hg], 1.38 mm[Hg], 1.91 mm[Hg] LVOT Area (cm2): 0.62 m/s Peak Velocity (LVOT): 0.58 m/s, 0.59 m/s, 0.69 m/s LVOT Diameter 1.95 cm Left Atrium LA Volume Index (2D A2C): 45.41 ml/m2 Left Atrium Systolic Dimension: 4.47 cm Mitral Valve Mitral Valve E-Wave Peak Velocity: 0.92 m/s Right Ventricle Aorta AO Root Diam: 3.21 cm Aortic Valve AoV Area (Peak Ryan): 1.79 cm2, 1.67 cm2, 1.72 cm2 Peak Velocity(Antegrade Flow): 1.05 m/s, 1.02 m/s Peak Gradient(Antegrade Flow): 4.38 mm[Hg], 4.18 mm[Hg] Tricuspid Valve Peak Velocity (Regurgitant Flow): 2.85 m/s, 3.17 m/s, 3.24 m/s Pulmonic Valve Peak Velocity: 1.33 m/s Peak Gradient: 7.12 mm[Hg] Right Atrium Right Atrium Systolic Pressure: 107.90 ml, 107.90 ml Dictated by: Tello Jiménez M.D. on 12/28/2024 at 13:19 Approved by: Tello Jiménez M.D. on 12/28/2024 at 13:23
--- NOTE | 2024-12-28 07:37 | P.DS_ITS ---
DS: Providers Provider Date of admission: 12/26/24 08:00 Primary care physician: LIGIA BELLAMY Consults: 12/26/24 Consult to Dietitian Routine Reason for consultation: Weight loss 12/26/24 08:17 Consult to Pharmacy Routine Consulting Provider: Reason for consultation: Please [place] me when Med Rec is Updated Has provider been notified: No Occupational Therapy Eval and Treat Routine Reason for consultation: Only if needed for Rehab Has provider been notified: No Physical Therapy Eval and Treat Routine Reason for consultation: Eval and Treat Has provider been notified: No 12/26/24 10:49 Consult to Digital Advertising Analyst Routine Has provider been notified: No Reason for consult:: Care Home DS: Diagnosis Discharge Diagnosis (1) Acute right-sided back pain with sciatica: (2) Intractable low back pain: (3) Right lumbar radiculopathy: (4) Atrial fibrillation: (5) Hypertension: (6) High cholesterol: (7) Acute diastolic heart failure: (8) Hypomagnesemia: (9) Lactic acidosis: Plan Admission findings: Sinus tachycardia and respiratory distress secondary to pain secondary to lumbar radiculopathy with right lower extremity radiculopathy and some weakness secondary to the pain with movement, in ER also found to have significant lactic acidosis without infectious etiology but acute diastolic heart failure L5 radiculopathy-steroids, low-dose Toradol and Norflex, IV pain medication for pain control, physical therapy to evaluate patient, so far with current treatment pain is improving, physical therapy to evaluate patient tomorrow, likely needs rehab Acute diastolic heart failure-IV Lasix given twice daily yesterday without any significant improvement with only 1 L diuresed BNP is higher today we will try patient on Bumex drip, echocardiogram in a.m. Atrial fibrillation with: Controlled ventricular response but INR is low, give extra dose again today Iron deficiency anemia-monitor daily Hypomagnesemia-supplement Lactic acidosis-uncertain etiology, monitor for symptoms, patient started on antibiotics in ER will maintain Hypercholesterolemia maintain home medications Admission status: Patient with acute diastolic heart failure not responding to IV therapy will require IV Bumex drip today, echocardiogram tomorrow, medically necessary treatment spanning more than 2 midnights. Inpatient status ? DS: Summary Time Spent with Patient Time attestation: Total time spent providing and/or coordinating discharge services: Exam Constitutional Vital Signs, click to edit/add: Last Vital Signs Temp 97.5 F L 12/28/24 04:21 Pulse 81 12/28/24 04:21 Resp 18 12/28/24 04:21 BP 140/87 12/28/24 04:21 Pulse Ox 96 12/28/24 04:21 O2 Del Method Room Air 12/28/24 04:21 DS: Data Data Completed and Pending Labs on day of discharge: Labs from last 24 hours 12/28/24 12/27/24 04:57 06:44 WBC 11.7 H RBC 3.70 L Hgb 11.2 L Hct 34.0 L MCV 91.9 MCH 30.3 MCHC 32.9 RDW 16.8 H Plt Count 231 MPV 11.9 Neut % (Auto) 93.0 H Lymph % (Auto) 4.0 L [place] % (Auto) 2.6 Eos % (Auto) 0.0 L Baso % (Auto) 0.1 L Neut # (Auto) 10.9 H Lymph # (Auto) 0.5 L [place] # (Auto) 0.3 Eos # (Auto) 0.0 Baso # (Auto) 0.0 Abs Immat Gran (auto) 0.03 Seg Neuts % (Manual) 94.0 H Band Neutrophils % 1.0 Lymphocytes % (Manual) 3.0 L Monocytes % (Manual) 2.0 Eosinophils % (Manual) 0.0 L Basophils % (Manual) 0.0 L Imm/Tot Granulo (auto) 0.3 Neutrophils # (Manual) 7.42 H Band Neutrophils # 0.1 Lymphocytes # (Manual) 0.23 L Monocytes # (Manual) 0.15 L Eosinophils # (Manual) 0.00 Basophils # (Manual) 0.00 Anisocytosis 1+ PT 19.8 H 13.8 H INR 2.00 1.34 Sodium 148 H 145 Potassium 3.3 L 3.9 Chloride 105 106 Carbon Dioxide 34.1 H 29.3 Anion Gap 12.2 13.6 BUN 33.0 H 27.0 H Creatinine 1.10 H 0.96 Est GFR ( Amer) 57 L >60 Est GFR (Non-Af Amer) 47 L 55 L BUN/Creatinine Ratio 30.0 28.1 Glucose 146 H 163 H Calcium 8.6 8.6 NT-Pro-B Natriuret Pep 5214.0 H* 4092.0 H* Discharge Plan Discharge Discharge Medications: No Action alendronate 70 mg tablet 70 mg PO .weekly Rx Instructions: mondays diclofenac sodium 75 mg tablet,delayed release (DR/EC) 75 mg PO BID PRN (Reason: pain) diltiazem HCl 60 mg tablet 60 mg PO DAILY metoprolol tartrate 25 mg tablet 12.5 mg PO BID gabapentin 100 mg capsule 100 mg PO .QHS hydrocodone-acetaminophen 5-325 mg tablet 1 tab PO Q8H PRN (Reason: pain) ondansetron HCl 4 mg tablet 4 mg PO Q6H PRN (Reason: nausea and vomiting) cholecalciferol (vitamin D3) 50 mcg (2,000 unit) tablet 50 mcg PO DAILY simvastatin 10 mg tablet 10 mg PO QPM warfarin 2.5 mg tablet 2.5 mg PO DAILY Patient Comments: FRIDAY THRU FRIDAY Print Language: Scottish
[2024-12-28] MEDS: POLYETHYLENE GLYCOL 3350 17 GM POWDER PACKET PO (09:33)
[2024-12-28] MEDS: METOPROLOL TARTRATE 25 MG TABLET 12.5 MG PO ×2 (09:33→21:55)
[2024-12-28] MEDS: DILTIAZEM HCL 60 MG TABLET PO (09:33)
[2024-12-28] MEDS: POTASSIUM CHLORIDE 10 MEQ ER TABLET 20 MEQ PO ×2 (09:33→21:55)
[2024-12-28] MEDS: PANTOPRAZOLE SODIUM 40 MG TABLET.DR PO (09:33)
[2024-12-28] MEDS: GABAPENTIN 100 MG CAPSULE PO (09:33)
[2024-12-28] MEDS: MAGNESIUM OXIDE 400 MG TABLET PO ×2 (09:33→21:55)
[2024-12-28] MEDS: ACETAMINOPHEN 500 MG TABLET 1000 MG PO (12:08)
[2024-12-28] MEDS: METHYLPREDNISOLONE SOD SUCC PF 125 MG/2 ML VIAL 40 MG IVP ×3 (12:08→23:20)
--- NOTE | 2024-12-28 13:35 | SWNOTE1 ---
SW met with pt. Pt currently goes to [facility] for outpatient therapy. Pt has walker at home to use if needed. OT recommends rehab and SW discussed this with pt. Pt voiced wanting to return home at discharge. SW advised pt of the differences between rehab and home health. Pt voiced having been to rehab at the [facility] and getting home health in the past. Pt came in room during conversation, SW explained we are talking about discharge planning. Pt felt she should go to rehab. He spoke about her pain and she has a follow up on January 07 with ortho. SW recommended pt goes to rehab for short term stay for safety. PT will assess this afternoon and SW to stop back in.
--- NOTE | 2024-12-28 13:43 | SWNOTE1 ---
Important Message from Medicare reviewed and discussed with patient. Pt. verbalized understanding and signed the form. Original given to patient and copy placed in patient?s chart.
[2024-12-28] MEDS: BUMETANIDE 10 MG in 0.9 % SODIUM CHLORIDE 160 ML IV (13:54)
[2024-12-28] MEDS: SACUBITRIL/VALSARTAN 24 MG-26 MG TABLET 1 TAB PO ×2 (13:55→21:55)
--- NOTE | 2024-12-28 16:02 | SWNOTE1 ---
SW stopped back in room and spoke with pt and . PT had not been in to evaluate. SW asked pt and if they discussed rehab. She voiced she was having some pain again. Pt's voiced that he truly recommends she goes to rehab for a short time as he is concerned about her coming home and having pain and he is not able to help. Pt is tearful and stated last summer she was at [facility] and 2 rehab places and he understands she wants to go home, but concerned about her. SW let pt know it will not be detention and hopeful she will get some answers at her ortho follow up. Her appointment is January 07. SW asked pt if she was alright with SW sending referral to facility since she is a precert. This will allow SW to get plan started and if she does not end up needing rehab, then SW can cancel. Pt and in agreement. They voiced they want the [facility] since she has been there in past and is going to outpt therapy there. Referral sent to [facility]. Referral included face sheet, ED note, H&P, provider notes, case management report,nursing notes, diagnostic imaging, med list, and PT/OT notes.
[2024-12-28] MEDS: WARFARIN SODIUM 2.5 MG TABLET PO (18:23)
[2024-12-28] MEDS: LACTULOSE 10 GM/15 ML BOTTLE 237 ML 30 GM PO (21:55)
[2024-12-28] MEDS: GABAPENTIN 300 MG CAPSULE PO (21:55)
[2024-12-29] VITALS (7 sets, daily range): BP systolic 92–145; BP diastolic 46–84; PULSE 54–77; TEMP 36.3–36.9; O2SAT 92–96; BMI 24.6
[2024-12-29] MEDS: ONDANSETRON PF 4 MG/2 ML VIAL IV (01:31)
[2024-12-29 05:46] LABS: Basophils Percent Auto 0.1 % (0.2-2.0); Hematocrit 39.2 % (36.0-48.0); Immature Granulocytes Abs Auto 0.05 10^3/uL (0.00-0.03); Immature Granulocytes Pct Auto 0.4 % (0.0-0.5); Lymphocytes Absolute Auto 0.4 10^3/uL (1.2-3.8); Lymphocytes Percent Auto 3.1 % (20.5-60.0); Mean Corpuscular HGB Conc 33.2 g/dL (29.9-35.2); Mean Corpuscular Hemoglobin 30.4 pg (26.7-34.0); Mean Corpuscular Volume 91.8 fL (81.0-99.0); Mean Platelet Volume 11.8 fL (9.5-13.5); Monocytes Absolute Auto 0.8 10^3/uL (0.3-0.8); Monocytes Percent Auto 6.2 % (1.7-12.0); Neutrophils Absolute Auto 11.2 10^3/uL (1.4-6.5); Neutrophils Percent Auto 90.2 % (43.0-75.0); Platelet Count 263 10^3/uL (150-450); Red Blood Count 4.27 10^6/uL (4.20-5.40); Red Cell Distribution Width 16.8 % (11.0-15.0); White Blood Count 12.4 10^3/uL (4.0-11.0)
[2024-12-29] MEDS: METHYLPREDNISOLONE SOD SUCC PF 125 MG/2 ML VIAL 40 MG IVP (05:54)
[2024-12-29] MEDS: CEFTRIAXONE 1,000 MG in 0.9 % SODIUM CHLORIDE 50 ML 100 MG IV (05:54)
[2024-12-29] MEDS: LEVOTHYROXINE SODIUM 25 MCG TABLET PO (05:54)
[2024-12-29 06:06] LABS: Prothrombin Time 39.8 sec (9.0-11.6)
[2024-12-29 06:12] LABS: Anion Gap 13.7; BUN Creatinine Ratio 27.1; Calcium 8.6 mg/dL (8.5-10.1); Carbon Dioxide 34.3 mmol/L (21.0-32.0); Chloride 103 mmol/L (98-107); Estimated GFR (African America 48 (>=60 mL/min/1.73m^2); Estimated GFR (Non-African Ame 39 (>=60 mL/min/1.73m^2); Glucose 166 mg/dL (74-106); Sodium 148 mmol/L (136-145)
[2024-12-29 06:22] LABS: INR 4.34
--- NOTE | 2024-12-29 06:49 | CM.NOTE ---
Zeke txt sent to Dr. Rayo regarding PT recommendation for home with family, Dr. Rayo will see how pt does with PT today for discharge planning.
--- NOTE | 2024-12-29 07:00 | US_ITS ---
[address] [address] Patient Name: MARIA GUADALUPE JAIN MRN: [id number] date: 1940 Sex: F Assigned Patient Location: [place] Current Patient Location: [place] Accession/Order Number: [id number] Exam Date: 12/29/2024 08:35 Report Date: 12/29/2024 08:38 At the request of: MOISES SANCHEZ MD Procedure: US aorta ULTRASOUND OF THE ABDOMINAL AORTA COMPARISON: 12/15/2024 Real-time ultrasound evaluation of the abdominal aorta was performed. The proximal AP diameter is 2.2 and the width is 1.8. Through the midsegment, the aorta measure 1.6 and the width is 1.6. Distally, the diameter measures 1.7 and the width measures 1.5. No aneurysm is seen. The bifurcation is visualized and the iliac arteries are normal caliber. There is no periaortic fluid. 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 There is internal blood flow on color Doppler imaging. US/US aorta IMPRESSION: NO AORTIC ANEURYSM. 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 There is internal blood flow on color Doppler imaging. Impression dictated by: Rohith Harris M.D. 12/29/2024 8:38 AM Dictation Location: [place] [address] Electronically authenticated by: [id number] Y Date: 12/29/2024 08:38
--- NOTE | 2024-12-29 08:05 | P.PN_ITS ---
Progress Note: Subjective Subjective Interval history: Patient denies any dyspnea, denies pain but she does have pain noted with activity Exam Constitutional Vital Signs, click to edit/add: Last Vital Signs Temp 97.7 F 12/29/24 04:00 Pulse 77 12/29/24 04:00 Resp 16 12/29/24 04:00 BP 130/62 12/29/24 04:00 Pulse Ox 96 12/29/24 04:00 O2 Del Method Room Air 12/29/24 04:00 Documenting provider has reviewed patient's vital signs: yes Common normals: no apparent distress (Minimal pain with movement) Chest Common normals: inspection of chest normal Respiratory Common normals: normal respiratory effort and no retractions Cardio Common normals: regular rate and no murmurs Rhythm: abnormal rhythm GI Common normals: Normal to inspection, nondistended, normoactive bowel sounds present, soft to palpation and non-tender Back & Pelvis Common normals: CVA tenderness (Tenderness in paralumbar sacral area) Extremity Common normals: abnormal to inspection (3 + edema) Neuro Common normals: oriented x3, CN's II-XII intact bilaterally and moves all extremities Sensorium/orientation: oriented to person, oriented to place and oriented to time Progress Note: Objective Labs Labs: Short CBC 12/29/24 Range/Units 05:31 WBC 12.4 H (4.0-11.0) 10^3/uL Hgb 13.0 (12.0-16.0) g/dL Hct 39.2 (36.0-48.0) % Plt Count 263 (150-450) 10^3/uL BMP 12/29/24 05:31 Sodium 148 H Potassium 3.0 L Chloride 103 Carbon Dioxide 34.3 H BUN 35.0 H Creatinine 1.29 H Glucose 166 H Calcium 8.6 Progress Note: A&P Assessment and Plan (1) Acute right-sided back pain with sciatica: (2) Intractable low back pain: (3) Right lumbar radiculopathy: (4) Atrial fibrillation: (5) Hypertension: (6) High cholesterol: (7) Acute diastolic heart failure: (8) Hypomagnesemia: (9) Lactic acidosis: Plan Admission findings: Sinus tachycardia and respiratory distress secondary to pain secondary to lumbar radiculopathy with right lower extremity radiculopathy and some weakness secondary to the pain with movement, in ER also found to have significant lactic acidosis without infectious etiology but acute diastolic heart failure L5 radiculopathy-cut back on steroids, physical therapy to evaluate patient today for possible rehabilitation Acute diastolic heart failure-repeat diuresis again today, consult to cardiology, echocardiogram pending Atrial fibrillation with: Heart rate control is improved today, INR still low adjusting dose Iron deficiency anemia-monitor daily Hypomagnesemia-supplement mod severe constipation -lactulose and MiraLAX Lactic acidosis-uncertain etiology, monitor for symptoms, patient started on antibiotics in ER will maintain Hypercholesterolemia maintain home medications Admission status: Patient with acute diastolic heart failure not responding to IV therapy will require IV Bumex drip today, echocardiogram tomorrow, medically necessary treatment spanning more than 2 midnights. Inpatient status ? Urinary Catheter Management Urinary Catheter Management Pure Wirobyn: Cath placed during this visit: no
--- NOTE | 2024-12-29 08:06 | P.DS_ITS ---
DS: Providers Provider Date of admission: 12/26/24 08:00 Primary care physician: FATMATA BELLAMY Consults: 12/26/24 Consult to Dietitian Routine Reason for consultation: Weight loss 12/26/24 08:17 Consult to Pharmacy Routine Consulting Provider: Reason for consultation: Please [place] me when Med Rec is Updated Has provider been notified: No Occupational Therapy Eval and Treat Routine Reason for consultation: Only if needed for Rehab Has provider been notified: No Physical Therapy Eval and Treat Routine Reason for consultation: Eval and Treat Has provider been notified: No 12/26/24 10:49 Consult to Cook Pressure Routine Has provider been notified: No Reason for consult:: Correction 12/28/24 Consult to Cardiology Routine Reason for consultation: Elevated BNP 12/29/24 07:32 Physical Therapy Eval and Treat Routine Reason for consultation: re-eval - needs to ambulate 100feet unassisted or change to needs rehab Has provider been notified: No DS: Diagnosis Discharge Diagnosis (1) Acute right-sided back pain with sciatica: (2) Intractable low back pain: (3) Right lumbar radiculopathy: (4) Atrial fibrillation: (5) Hypertension: (6) High cholesterol: (7) Acute diastolic heart failure: (8) Hypomagnesemia: (9) Lactic acidosis: Plan Admission findings: Sinus tachycardia and respiratory distress secondary to pain secondary to lumbar radiculopathy with right lower extremity radiculopathy and some weakness secondary to the pain with movement, in ER also found to have significant lactic acidosis without infectious etiology but acute diastolic heart failure L5 radiculopathy-improved at the time of discharge Acute diastolic heart failure-BNP still elevated at the time of discharge but edema is improved at the time of discharge Atrial fibrillation with: Heart rate control is improved today, continue to follow INRs as an outpatient Coumadin toxicity today-holding Coumadin today, restart tomorrow and Coumadin clinic to take over dosing tomorrow Iron deficiency anemia-follow Hypomagnesemia-supplement mod severe constipation -lactulose and MiraLAX Lactic acidosis-uncertain etiology, no focal signs or symptoms from an infection standpoint continue dosing antibiotics Hypercholesterolemia maintain home medications Admission status: Patient with acute diastolic heart failure not responding to IV therapy will require IV Bumex drip today, echocardiogram tomorrow, medically necessary treatment spanning more than 2 midnights. Inpatient status ? DS: Summary Hospital Course Hospital Course: Patient was seen and evaluated in the emergency room 3 or 4 days prior to coming in, treated in the ER and felt improved and was sent home, at that time I saw her down in the ER he increased her gabapentin it does not sound like she did that. She Gloria presented to the emergency with increasing back pain and unable to ambulate secondary to pain. Also found to have peripheral edema laboratory workup confirmed acute diastolic heart failure, medications were adjusted added Carol Chapa, patient already on a beta-lluvia, so far tolerating those meds well her edema is improved, her BNP is elevated her echocardiogram shows a good ejection fraction, consultation with cardiology they reviewed the case we will discuss that further just prior to being discharged but at this point she is improved to the point from a pain standpoint and the diastolic heart failure standpoint that she can be discharged to home in improving condition. Medications see list. See us in the office next year or 2 or next week Time Spent with Patient Time attestation: Total time spent providing and/or coordinating discharge services: Exam Constitutional Vital Signs, click to edit/add: Last Vital Signs Temp 97.7 F 12/29/24 04:00 Pulse 77 12/29/24 04:00 Resp 16 12/29/24 04:00 BP 130/62 12/29/24 04:00 Pulse Ox 96 12/29/24 04:00 O2 Del Method Room Air 12/29/24 04:00 Documenting provider has reviewed patient's vital signs: yes Common normals: no apparent distress (Minimal pain with movement) Chest Common normals: inspection of chest normal Respiratory Common normals: normal respiratory effort and no retractions Cardio Common normals: regular rate and no murmurs Rhythm: abnormal rhythm GI Common normals: Normal to inspection, nondistended, normoactive bowel sounds present, soft to palpation and non-tender Back & Pelvis Common normals: CVA tenderness (Tenderness in paralumbar sacral area) Extremity Common normals: abnormal to inspection (1+ edema-improved edema) Neuro Common normals: oriented x3, CN's II-XII intact bilaterally and moves all extremities Sensorium/orientation: oriented to person, oriented to place and oriented to time DS: Data Data Completed and Pending Labs on day of discharge: Labs from last 24 hours 12/29/24 05:31 WBC 12.4 H RBC 4.27 Hgb 13.0 Hct 39.2 MCV 91.8 MCH 30.4 MCHC 33.2 RDW 16.8 H Plt Count 263 MPV 11.8 Neut % (Auto) 90.2 H Lymph % (Auto) 3.1 L [place] % (Auto) 6.2 Eos % (Auto) 0.0 L Baso % (Auto) 0.1 L Neut # (Auto) 11.2 H Lymph # (Auto) 0.4 L [place] # (Auto) 0.8 Eos # (Auto) 0.0 Baso # (Auto) 0.0 Abs Immat Gran (auto) 0.05 H Imm/Tot Granulo (auto) 0.4 PT 39.8 H INR 4.34 H* Sodium 148 H Potassium 3.0 L Chloride 103 Carbon Dioxide 34.3 H Anion Gap 13.7 BUN 35.0 H Creatinine 1.29 H Est GFR ( Amer) 48 L Est GFR (Non-Af Amer) 39 L BUN/Creatinine Ratio 27.1 Glucose 166 H Calcium 8.6 NT-Pro-B Natriuret Pep 2985.0 H* Preliminary micro results at discharge 12/26/24 03:50 Blood Culture Result 2 - Preliminary Blood - Right Antecubital NO GROWTH AT 36-48 HOURS. FINAL TO FOLLOW. 12/26/24 03:25 Blood Culture Result 1 - Preliminary Blood - Left Antecubital NO GROWTH AT 36-48 HOURS. FINAL TO FOLLOW. Discharge Plan Discharge Disposition: Home, Self-Care Discharge Medications: New cefdinir 300 mg capsule 600 mg PO DAILY Qty: 14 0RF furosemide 40 mg Tablet 40 mg PO QD Qty: 30 11RF isosorbide mononitrate 30 mg Tablet Extended Release 24 Hr 30 mg PO QD Qty: 30 11RF magnesium oxide 400 mg (241.3 mg magnesium) Tablet 400 mg PO BID Qty: 60 11RF gabapentin 300 mg Capsule 300 mg PO QHS Qty: 30 11RF Rx Instructions: Plus the 100 mg in the am tramadol 50 mg Tablet 50 mg PO Q8H PRN (Reason: Pain Scale 7-10) 7 Days Qty: 21 0RF levothyroxine 25 mcg Tablet 25 mcg PO ACB Qty: 30 11RF pantoprazole 40 mg Tablet,Delayed Release (Dr/Ec) 40 mg PO DAILY Qty: 30 11RF Entresto 24-26 mg Tablet 1 tab PO BID Qty: 60 11RF prednisone 10 mg tablet 30 mg PO DAILY Qty: 20 0RF Rx Instructions: 3/day for 3 days, 2/day for 3 days, 1/day for 3 days, 1/2 /day for 4 days Continued alendronate 70 mg tablet 70 mg PO .weekly Rx Instructions: mondays diclofenac sodium 75 mg tablet,delayed release (DR/EC) 75 mg PO BID PRN (Reason: pain) diltiazem HCl 60 mg tablet 60 mg PO DAILY metoprolol tartrate 25 mg tablet 12.5 mg PO BID gabapentin 100 mg capsule 100 mg PO .QHS hydrocodone-acetaminophen 5-325 mg tablet 1 tab PO Q8H PRN (Reason: pain) ondansetron HCl 4 mg tablet 4 mg PO Q6H PRN (Reason: nausea and vomiting) cholecalciferol (vitamin D3) 50 mcg (2,000 unit) tablet 50 mcg PO DAILY simvastatin 10 mg tablet 10 mg PO QPM warfarin 2.5 mg tablet 2.5 mg PO DAILY Patient Comments: FRIDAY THRU FRIDAY Print Language: Hungarian Forms: Portal Instructions Follow Up Appointments: January 04 @ 10:30am with Fatmata Bellamy NP [phone]
--- NOTE | 2024-12-29 08:27 | CM.NOTE ---
Faxed PT notes to [facility].
[2024-12-29] MEDS: PREDNISONE 20 MG TABLET 30 MG PO (09:18)
[2024-12-29] MEDS: SACUBITRIL/VALSARTAN 24 MG-26 MG TABLET 1 TAB PO (09:18)
[2024-12-29] MEDS: MAGNESIUM OXIDE 400 MG TABLET PO (09:18)
[2024-12-29] MEDS: DILTIAZEM HCL 60 MG TABLET PO (09:18)
[2024-12-29] MEDS: GABAPENTIN 100 MG CAPSULE PO (09:18)
[2024-12-29] MEDS: PANTOPRAZOLE SODIUM 40 MG TABLET.DR PO (09:19)
[2024-12-29] MEDS: POTASSIUM CHLORIDE 10 MEQ ER TABLET 20 MEQ PO (09:19)
[2024-12-29] MEDS: ISOSORBIDE MONONITRATE 30 MG TAB.ER.24H PO (09:19)
[2024-12-29] MEDS: ENSURE HP 237 ML LIQUID PO (09:19)
[2024-12-29] MEDS: POTASSIUM CHLORIDE 40 MEQ in 0.9 % SODIUM CHLORIDE 250 ML 67.5 MEQ IV (09:20)
[2024-12-29] MEDS: ACETAMINOPHEN 500 MG TABLET 1000 MG PO (09:20)
--- NOTE | 2024-12-29 11:12 | PT.DAILY ---
Physical Therapy Daily Note PT Daily Note/Assess Start: 12/29/24 10:56 Freq: Status: Active Protocol: Document 12/29/24 10:57 NIESHA (Rec: 12/29/24 11:12 NIESHA [id number]) Physical Therapy Daily Note/Assessment Time In/Time Out Time In 10:15 Time Out 10:40 Pain In Pain N/A Pain Out Pain N/A Subjective Subjective Pt sitting in recliner upon arrival. Reports overly tired today from being up all night using toilet. Denies pain in R hip currently but is medicated. Agreeable to PT. Therapeutic Exercise Time Therapeutic Exercise 5 Minutes (minutes) Therapeutic Exercise 0 Units Therapeutic Exercise Treatment Therapeutic Exercise Pt instructed to perform bilat LE strengthening ex in Treatment BS chair to improve functional mobility prior to gait and transfers. Therapeutic Activity Time Therapeutic Activity 13 Minutes (minutes) Therapeutic Activity 1 Units Therapeutic Activity Treatment Chair Transfer Modified Independent Ability Therapeutic Activity Sit>stand Patricio due to IV pole. Assistance needed to Comments harish lópez. Pt amb 100' with RW, SBA with assist for IV pole. Pt demonstrates slow pawan and minimal antalgia. C/o leg weakness and needing to turn around to head back to room. Easily fatigued with gait. Returned to recliner with call light in reach and needs met. Total Physical Therapy Time Total Therapy 18 Minutes Total Physical 1 Therapy Units Summary Daily Note Summary Low pain in R hip as she was medicated for this. Functional transfers pt is Patricio due to having IV. Pt does fatigue quickly with gait/dynamic standing activities. Pt would benefit from SNF to regain strength and endurance -while addressing R hip pain.
--- NOTE | 2024-12-29 11:57 | CM.NOTE ---
Talked with pt after PT evaluation, pt continues to want to return home with outpatient PT services. Discussed with pt safety issues and concerns of pain returning. Pt continues to refuse skilled at this time. Zeke txt sent to Dr. Rayo for update on pt's PT note and pt's wishes. Zeke txt also about going home with Ultram per pt's request and also outpatient pain management. No orders will be given at discharge for Ultram or outpatient pain clinic. Pt will f/u in office with Debra Douglass.
--- NOTE | 2024-12-29 12:15 | CM.NOTE ---
Updated Mayra kay [place] that pt has decided to return home and do outpatient PT.
--- NOTE | 2024-12-29 19:34 | PM.CACN ---
History of Present Illness History of Present Illness Chief complaint: back pain, INTRACTABLE BACK PAIN Narrative: This 84-year-old female has a history of afib, HTN, HFpEF, a fall 11 months ago resulting in a subdural hematoma and a right midshaft femur fracture, for which she underwent open reduction and internal fixation. Several months later, she began experiencing right gluteal, lateral hip, and thigh pain. She has had intermittent treatment, including steroids, gabapentin, and diclofenac (later discontinued), and is currently on opioids and Colace. She was evaluated in this ED on December 22, 2024, and previously on December 14, 2024. A lumbar spine MRI in mid-December revealed extensive degenerative changes with right-sided nerve impingement, lower lumbar disc herniation, and a right iliopsoas muscle surface mass. She is scheduled to see orthopedics in [place] in January but is attempting to be seen sooner through Dr. Trevino?s group. On admission, she was found to be in sinus tachycardia and respiratory distress, attributed to severe pain from lumbar radiculopathy involving the right lower extremity. She also had weakness with movement due to pain. Labs revealed significant lactic acidosis without evidence of infection, and imaging/labs suggested acute decompensated diastolic heart failure. Pt is seen and examined at the bedside today, accompanied by her son. She denies chest pain, SOB, palpitations, lightheadedness or dizziness, or LE edema. Review of Systems ROS Status of ROS 10 or more systems reviewed and unremarkable except as noted in history and below [facility] Medical History (Updated 12/26/24 @ 14:14 by Alta Culp RN) History of CVA (cerebrovascular accident) ?Z86.73 - Personal history of transient ischemic attack (TIA), and cerebral infarction without residual deficits (ICD-10) High cholesterol ?E78.00 - Pure hypercholesterolemia, unspecified (ICD-10) Atrial fibrillation ?I48.91 - Unspecified atrial fibrillation (ICD-10) Hypertension ?I10 - Essential (primary) hypertension (ICD-10) Surgical History (Updated 12/26/24 @ 09:21 by Alta Culp RN) 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.612 - Presence of left artificial shoulder joint (ICD-10) History of hysterectomy ?Z90.710 - Acquired absence of both cervix and uterus (ICD-10) Family History (Updated 12/26/24 @ 09:22 by Alta Culp RN) Father Family history of myocardial infarction Social History (Updated 12/26/24 @ 09:23 by Alta Culp RN) Within the past year, how often did you have a drink containing alcohol: 2-4 times a month Smoking status: Former smoker Non-prescribed substance use: denies use Highest level of school completed/degree received: GED or equivalent Little interest or pleasure in doing things: not at all Feeling down, depressed, or hopeless: not at all Meds Home Medications and Allergies Home Medications ?Medication ?Instructions ?Recorded ?Confirmed ?Type simvastatin 10 mg tablet 10 mg PO QPM 01/05/24 12/26/24 History warfarin 2.5 mg tablet 2.5 mg PO DAILY 01/05/24 12/26/24 History alendronate 70 mg tablet 70 mg PO .weekly 12/13/24 12/26/24 History diclofenac sodium 75 mg 75 mg PO BID PRN pain 12/13/24 12/26/24 History tablet,delayed release diltiazem HCl 60 mg tablet 60 mg PO DAILY 12/13/24 12/26/24 History metoprolol tartrate 25 mg tablet 12.5 mg PO BID 12/13/24 12/26/24 History gabapentin 100 mg capsule 100 mg PO .QHS 12/22/24 12/26/24 History cholecalciferol (vitamin D3) 50 50 mcg PO DAILY 12/26/24 12/26/24 History mcg (2,000 unit) tablet hydrocodone 5 mg-acetaminophen 325 1 tab PO Q8H PRN pain 12/26/24 12/26/24 History mg tablet ondansetron HCl 4 mg tablet 4 mg PO Q6H PRN nausea and vomiting 12/26/24 12/26/24 History cefdinir 300 mg capsule 600 mg (2 x 300 mg) PO DAILY #14 12/29/24 Rx caps furosemide 40 mg tablet 40 mg PO QD #30 tabs 12/29/24 Rx gabapentin 300 mg capsule 300 mg PO QHS #30 caps 12/29/24 Rx isosorbide mononitrate 30 mg 30 mg PO QD #30 tabs 12/29/24 Rx tablet,extended release 24 hr levothyroxine 25 mcg tablet 25 mcg PO ACB #30 tabs 12/29/24 Rx magnesium oxide 400 mg (241.3 mg 400 mg PO BID #60 tabs 12/29/24 Rx magnesium) tablet pantoprazole 40 mg tablet,delayed 40 mg PO DAILY #30 tabs 12/29/24 Rx release prednisone 10 mg tablet 30 mg (3 x 10 mg) PO DAILY #20 tabs 12/29/24 Rx sacubitril 24 mg-valsartan 26 mg 1 tab PO BID #60 tabs 12/29/24 Rx tablet (Entresto) tramadol 50 mg tablet 50 mg PO Q8H PRN Pain Scale 7-10 7 12/29/24 Rx days #21 tabs Allergies Allergy/AdvReac Type Severity Reaction Status Date / Time Sulfa (Sulfonamide Allergy Unknown Verified 12/26/24 02:36 Antibiotics) Exam Constitutional Vital Signs, click to edit/add: Last Vital Signs Temp 97.4 F L 12/29/24 16:21 Pulse 60 12/29/24 16:21 Resp 18 12/29/24 16:21 BP 92/46 L 12/29/24 16:21 Pulse Ox 94 L 12/29/24 16:21 O2 Del Method Room Air 12/29/24 16:21 Common normals: no apparent distress General appearance: cooperative Orientation/consciousness: Yes awake, Yes oriented to person, Yes oriented to place and Yes oriented to time Chest Common normals: inspection of chest normal Respiratory Common normals: normal respiratory effort Effort & inspection: able to speak in complete sentences Auscultation: clear to auscultation bilaterally Cardio Common normals: no JVD and peripheral pulses 2+ throughout Heart sounds: S1 normal and S2 normal Peripheral pulses: pulses 2+ throughout Results Labs and Meds Lab results: Coagulation 12/29/24 Range/Units 05:31 PT 39.8 H (9.0-11.6) sec CBC 12/29/24 Range/Units 05:31 WBC 12.4 H (4.0-11.0) 10^3/uL RBC 4.27 (4.20-5.40) 10^6/uL Hgb 13.0 (12.0-16.0) g/dL Hct 39.2 (36.0-48.0) % Plt Count 263 (150-450) 10^3/uL Neut # (Auto) 11.2 H (1.4-6.5) 10^3/uL Lymph # (Auto) 0.4 L (1.2-3.8) 10^3/uL Pine # (Auto) 0.8 (0.3-0.8) 10^3/uL Eos # (Auto) 0.0 (0.0-0.7) 10^3/uL Baso # (Auto) 0.0 (0.0-0.1) 10^3/uL Comprehensive Metabolic Panel 12/29/24 Range/Units 05:31 Sodium 148 H (136-145) mmol/L Potassium 3.0 L (3.5-5.1) mmol/L Chloride 103 (98-107) mmol/L Carbon Dioxide 34.3 H (21.0-32.0) mmol/L BUN 35.0 H (7.0-18.0) mg/dL Creatinine 1.29 H (0.55-1.02) mg/dL Glucose 166 H (74-106) mg/dL Calcium 8.6 (8.5-10.1) mg/dL Intake and Output 12/29/24 12/29/24 12/29/24 07:59 15:59 23:59 Intake Total 50 / 650 970.000 / 970.000 Balance 50 / 200 970.000 / 970.000 Intake: Oral 500 / 500 IV 50 / 50 470.000 / 470.000 Bumetanide 10 mg In 0.9 % 200 / 200 Sodium Chloride 160 ml @ 10 mls /hr IV ONCE ONE Rx#:[id number] Ceftriaxone 1,000 mg In 0.9 % 50 / 50 Sodium Chloride 50 ml @ 100 mls /hr IV Q24H FAIZA Rx#:[id number] Potassium Chloride 40 meq In 0. 270.000 / 270.000 9 % Sodium Chloride 250 ml @ 67 .5 mls/hr IV Q6H PRN Rx#: [id number] Other: # Voids 4 2 # Bowel Movements 1 Weight 73.4 kg Assessment and Plan Assessment and Plan (1) Acute right-sided back pain with sciatica: (2) Intractable low back pain: (3) Right lumbar radiculopathy: (4) Atrial fibrillation: (5) Hypertension: (6) High cholesterol: (7) Acute diastolic heart failure: (8) Hypomagnesemia: (9) Lactic acidosis: Plan #HFpEF NYHA Class I symptoms. Euvolemic and clinically compensated. On admission, she had +3 lower extremity edema (initially on Bumex gtt), now improved to trace. Pro-BNP peaked at 52,140, indicating significant cardiac strain. TTE on 12/28/24 demonstrated LVEF 50?55%, moderate to severe tricuspid regurgitation, and an RVSP of 49 mmHg, consistent with elevated right-sided pressures. Overall findings are consistent with volume-overload heart failure now medically optimized. ? Continue furosemide 40 mg daily ? Continue Entresto BID ? Initiate SGLT2 inhibitor (e.g., dapagliflozin 10 mg daily), pending renal function and tolerance ? Monitor daily weights, I/O, and reassess volume status regularly #Atrial Fibrillation CHADS2-VASc score is at least 6 (HTN, HF, female sex, age >75, prior CVA), placing her at high thromboembolic risk. Rhythm is currently rate-controlled and stable without recent episodes of rapid ventricular response. ? Continue metoprolol tartrate 12.5 mg BID ? Continue diltiazem 60 mg daily ? Warfarin on hold due to supratherapetic INR of 4.34 today 12/29/2024 #Hyperlipidemia Lipid levels are currently at goal. No reported statin intolerance. ? Continue simvastatin 10 mg daily Plan Overview: ? Maintain euvolemia with diuretics and guideline-directed therapy for HFpEF ? Continue rate control for atrial fibrillation ? Recommend SGLT2 inhibitor unless contraindicated to improve heart failure outcomes ? Maintain statin therapy for vascular protection Peter Cole, [facility] Cardiovascular Medicine
--- NOTE | 2024-12-30 14:53 | CM.DCFOLLOWU ---
1st attempt. No answer
--- NOTE | 2025-01-04 14:56 | CM.DCFOLLOWU ---
Person spoke with: patient How are you feeling? having pain on and off How is your pain? it is alright, worse at night Did you understand your discharge instructions?yes Do you have any questions about your discharge instructions? no Were you given any prescriptions at discharge?yes Were you able to get your prescriptions filled?yes Do you understand how to take your medications as ordered?yes Do you have any questions about your follow up appointment and do you plan to keep your follow up appointment? no questions, had follow up today Is there anything else that you would like to discuss?no Questions/Comments/Concerns/Other:N/A
== END 2024-12-29 18:29 | disposition home or self-care (01) | DRG 291 ==
LOC: ER 03:15 → MS 08:04
PROVIDERS: Admitting Provider Family Medicine; Emergency Provider Emergency Medicine; PCP Nurse Practitioner Family; Visit Provider Family Medicine
DX: I11.0 Hypertensive heart disease with heart failure (principal); I50.31 Acute diastolic (congestive) heart failure; E87.20 Acidosis, unspecified; M54.41 Lumbago with sciatica, right side; E78.00 Pure hypercholesterolemia, unspecified; I48.91 Unspecified atrial fibrillation; M54.16 Radiculopathy, lumbar region; Z79.891 Long term (current) use of opiate analgesic; Z96.612 Presence of left artificial shoulder joint; Z90.710 Acquired absence of both cervix and uterus; Z87.891 Personal history of nicotine dependence; Z79.01 Long term (current) use of anticoagulants; E83.42 Hypomagnesemia; R06.03 Acute respiratory distress; D50.9 Iron deficiency anemia, unspecified; G89.29 Other chronic pain; K59.00 Constipation, unspecified; T45.515A Adverse effect of anticoagulants, initial encounter; Z91.81 History of falling; Z86.73 Personal history of transient ischemic attack (TIA), and cerebral infarction without residual deficits; Z79.899 Other long term (current) drug therapy; I07.1 Rheumatic tricuspid insufficiency
CPT/HCPCS: 36415; 76706; 80048; 80076; 81003; 83605; 83735; 83880; 84436; 84443; 84484; 85007; 85025; 85027; 85610; 85730; 87040; 93306; 94761; 96365; 96375; 97165; 97530; 97535; 99285; J0696; J1171; J1885; J1938; J2270; J2360; J2405; J2919; J3480; J7512

== ENCOUNTER 2025-01-02 23:47 | Emergency (ER) | payer MEDICARE, SELFPAY ==
--- OUTSIDE RECORDS SUMMARY | 2025-01-02 23:53 | XMS_ITS | Encounter Summary ---
Author Organization [facility] Address [address] [place] [address] Care Team Providers Care Satellite Tv Technician Name Role Phone Fatmata Adams APRN [facility] Primary Care Provide r Reason for Referral * Imaging (Routine) - Closed Specialty Diagnoses / Procedures Referred By Brianna christensen Referred To Contact Radiology Diagnoses Nonintractable headache, unspecified chronicity pattern, unspecified headache type Procedures MRI BRAIN WO CONTRAST Fatmata Adams, KARISSA - RAIL MAINTENANCE WORKER [address] [place] [address] Phone: tel: fax: Referral ID Status Reason Start Date Expiration Date Visits Re quested Visits Authorized [id number] Closed 08/09/2022 08/09/2023 1 1 Encounter Details Date Type Department Care Team (Latest Contact Info) Description 08/09/2022 Transcribe Orders Chin Pre Access [address] [place] [address] [id number] Fatmata Adams, ELIGIBILITY SPECIALIST - [facility] [address] [place] [address] Nonintractable headache, unspecified chronicity pattern, unspecified headache [...] Description 02/16/2025 10:30 AM EDT Office Visit [facility] [address] [facility] [address] [place] [address] Isaiah Bueno PA [address] [place] [address] 3mfu Lt shoulder, rt femur Scheduled Orders Name Type Priority Associated Diagnoses Orde r Schedule MRI BRAIN WO CONTRAST Imaging Routine Nonintractable headache, unspecified chronicity pattern, unspecified headache type Expected: 08/09/2022, Expires: 08/09/2023 documented as of this encounter Visit Diagnoses Diagnosis Nonintractable headache, unspecified chronicity pattern, unspecified headache type- Primary documented in this encounter Care Teams Satellite Tv Technician Relationship Specialty Start Date End Date Fatmata Adams, ELIGIBILITY SPECIALIST - RAIL MAINTENANCE WORKER [address] [place] [id number] PCP - General 01/06/24 documented as of this encounter
--- OUTSIDE RECORDS SUMMARY | 2025-01-02 23:53 | XMS_ITS | CCD ---
Author Organization [facility] CliniSyde Care Team Providers Care Education Professional Name Role Phone DANIEL ., DR DE [...] Unavailable PAY ., DR BAEZ Attending Unavailable WILLOWBROOK, DR CONCEPCIÓN Wang Consulting Unavailable PAY ., DR BAEZ Consulting Unavailable YVONNE CHANDLER Consulting Unavailable JOSESITO, FATMATA Admitting Unavailable JOSESITO, FATMATA Attending Unavailable JOSESITO, FATMATA Primary Care Unavailable HOY ., DR DE LEON Admitting Unavailable HOY ., DR DE LEON Attending Unavailable JOSESITO, FATMATA Primary Care Unavailable HOY ., DR DE LEON Consulting Unavailable JOSESITO, FATMATA Admitting Unavailable JOSESITO, FATMATA Attending Unavailable JOSESITO, FATAMTA Primary Care Unavailable DR BERTO ALEJO Consulting Unavailable JOSESITO, FATMATA Consulting Unavailable Josesito METER MAINTENANCE PERSON - QC TECH, Fatmata S Primary Care Provide r TAE [...] Primary Care Unavailable AUSTIN ZEE Referring Unavailable JOSESTIO, FATMATA S Primary Care Unavailable JOSESITO, FATMATA [...] Sulfonamides (Antibiotic) Drug allergy (disorder) 3 [facility] (3 sources) Penicillins Propensity to adverse reactions to drug 4 [facility] (3 sources) Sulfonamides (Antibiotic) Propensity to adverse reactions to drug 4 [facility] Medications Current Medications Medication Drug Class(es) [...] 15 tablet 0 01/14/2024 02/13/2024 Active sennosides, penitentiary 1.76 mg/ml oral solution (3 sources) Start: [...] Onset: 03-01-2022 Episodic Other aftercare (1 source) manager pediatric (current) use of anticoagulants; Translations: [LONGTERM CURRNT USE ANTICOAGULANTS] Onset: 08-12-2022 Episodic Other aftercare (1 source) detention (current) use of aspirin; Translations: [LONGTERM CURRENT USE OF ASPIRIN] Onset: 08-12-2022 Episodic Other aftercare (2 sources) 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; Translations: [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] Onset: 07-03-2023 Episodic Other [...] by: Mary Gilmore PA Preliminary result Normal [facility] XR SHOULDER LEFT (MIN 2 VIEW [...] by: Mary Gilmore PA Preliminary result Normal [facility] XR FEMUR RIGHT (MIN 2 VIEWS) [...] Austin Zee DO 06/02/24 Final result Normal [facility] XR SHOULDER LEFT (MIN 2 VIEW [...] by: Austin Zee, 06/02/24 Final result Normal [facility] XR FEMUR RIGHT (MIN 2 VIEWS) [...] by: Austin Zee, 03/17/24 Final result Normal [facility] XR SHOULDER LEFT (MIN 2 VIEW [...] by: Austin Zee, 03/17/24 Final result Normal [facility] XR FEMUR RIGHT (MIN 2 VIEWS) [...] by: Austin Zee, 02/25/24 Final result Normal [facility] XR SHOULDER LEFT (MIN 2 VIEW [...] by: Austin Zee, 02/25/24 Final result Normal [facility] Basic Metab w/rfx MGon 02-22 Anion gap [Moles/Vol] 6 mmol/L Low 9-16 [facility] Comment on above: Performed By: #### B C #### [employer] [address] [place] [address] Rail Bender: Sarath Olivera MD Calcium [Mass/Vol] 8.6 mg/dL Normal 8.6-10.4 [facility] Comment on above: Performed By: #### B C #### [employer] [address] [place], [place] [phone] Rail Bender: Sarath Olivera MD Chloride [Moles/Vol] 108 mmol/L High 98-107 [facility] Comment on above: Performed By: #### B C #### [address] [address] Rail Bender: Sarath Olivera MD CO2 [Moles/Vol] 30 mmol/L Normal 20-31 [facility] Comment on above: Performed By: #### B C #### [address] [address] Rail Bender: Sarath Olivera MD Creatinine [Mass/Vol] 0.7 mg/dL Normal 0.50-0.90 [facility] Comment on above: Performed By: #### B C #### [address] [address] Rail Bender: Sarath Olivera MD GFR/1.73 sq M.predicted among non-blacks MDRD (S/P/Bld) [Vol rate/Area] 86 mL/min/{1.73_m2} Normal >60 [facility] Comment on above: Result Comment: These [...] secretion. Performed By: #### B C #### [address] [address] Rail Bender: Sarath Olivera MD Glucose [Mass/Vol] 91 mg/dL Normal 74-99 [facility] Comment on above: Performed By: #### B C #### [address] [address] Rail Bender: Sarath Olivrea MD Potassium [Moles/Vol] 3.9 mmol/L Normal 3.7-5.3 [facility] Comment on above: Performed By: #### B C #### [address] [address] Rail Bender: Sarath Olivera MD Sodium [Moles/Vol] 144 mmol/L Normal 136-145 [facility] Comment on above: Performed By: #### B C #### [address] [address] Rail Bender: Sarath Olivera MD Urea nitrogen [Mass/Vol] 20 mg/dL Normal 8-23 [facility] Comment on above: Performed By: #### B C #### [address] [address] Rail Bender: Sarath Olivera MD CBCon 02-23-2024 Erythrocyte distribution width (RBC) [Ratio] 17.4 % High 11.8-14.4 [facility] Comment on above: Performed By: #### B C #### [address] [address] Rail Bender: Sarath Olivera MD Hematocrit (Bld) [Volume fraction] 35.7 % Low 36.3-47.1 [facility] Comment on above: Performed By: #### B C #### [address] [address] Rail Bender: Sarath Olivera MD Hemoglobin (Bld) [Mass/Vol] 10.5 g/dL Low 11.9-15.1 [facility] Comment on above: Performed By: #### B C #### [address] [address] Rail Bender: Sarath Olivera MD MCH (RBC) [Entitic mass] 30.0 pg Normal 25.2-33.5 [facility] Comment on above: Performed By: #### B C #### [address] [address] Rail Bender: Sarath Olivera MD MCHC (RBC) [Mass/Vol] 29.4 g/dL Normal 28.4-34.8 [facility] Comment on above: Performed By: #### B C #### [address] [address] Rail Bender: Sarath Olivera MD MCV (RBC) [Entitic vol] 102.0 fL Normal 82.6-102.9 [facility] Comment on above: Performed By: #### B C #### [address] [address] Rail Bender: Sarath Olivera MD NRBC Automated 0.0 per 100 WBC Normal 0.0 [facility] Comment on above: Performed By: #### B C #### [address] [address] Rail Bender: Sarath Olivera MD Platelet mean volume (Bld) [Entitic vol] 11.8 fL Normal 8.1-13.5 [facility] Comment on above: Performed By: #### B C #### [address] [address] Rail Bender: Sarath Olivera MD Platelets (Bld) [#/Vol] 181 10*3/uL Normal 138-453 [facility] Comment on above: Performed By: #### B C #### [address] [address] Rail Bender: Sarath Olivera MD RBC (Bld) [#/Vol] 3.50 10*6/uL Low 3.95-5.11 [facility] Comment on above: Performed By: #### B C #### [address] [address] Rail Bender: Sarath Olivera MD WBC (Bld) [#/Vol] 5.8 10*3/uL Normal 3.5-11.3 [facility] Comment on above: Performed By: #### B C #### [address] [address] Rail Bender: Sarath Olivera MD PTon 02-23-2024 INR Coag (PPP) [Relative time] 1.6 {INR} Normal [facility] Comment on above: Result Comment: Therapeutic Range: Moderate Anticoagulant Intensity: INR = 2.0-3.0 High Anticoagulant Intensity: INR = 2.5-3.5 Performed By: #### B C #### [address] [address] Rail Bender: Sarath Olivera MD PT Coag (PPP) [Time] 18.8 s High 11.7-14.9 [facility] Comment on above: Performed By: #### B C #### [address] [address] Rail Bender: Sarath Olivera MD Basic Metab w/rfx MGon 02-21 Anion gap [Moles/Vol] 7 mmol/L Low 9-16 [facility] Comment on above: Performed By: #### B C #### [address] [address] Rail Bender: Sarath Olivera MD Calcium [Mass/Vol] 8.3 mg/dL Low 8.6-10.4 [facility] Comment on above: Performed By: #### B C #### [address] [address] Rail Bender: Sarath Olivera MD Chloride [Moles/Vol] 107 mmol/L Normal 98-107 [facility] Comment on above: Performed By: #### B C #### [address] [address] Rail Bender: Sarath Olivera MD CO2 [Moles/Vol] 28 mmol/L Normal 20-31 [facility] Comment on above: Performed By: #### B C #### [facility] [employer] [address] [place] [address] Rail Bender: Sarath Olivera MD Creatinine [Mass/Vol] 0.9 mg/dL Normal 0.50-0.90 [facility] Comment on above: Performed By: #### B C #### [facility] [employer] [address] [place] [address] Rail Bender: Sarath Olivera MD GFR/1.73 sq M.predicted among non-blacks MDRD (S/P/Bld) [Vol rate/Area] 67 mL/min/{1.73_m2} Normal >60 [facility] Comment on above: Result Comment: These [...] secretion. Performed By: #### B C #### [facility] [employer] [address] [place] [address] Rail Bender: Sarath Olivera MD Glucose [Mass/Vol] 105 mg/dL High 74-99 [facility] Comment on above: Performed By: #### B C #### [facility] [employer] [address] [place] [address] Rail Bender: Sarath Olivera MD Potassium [Moles/Vol] 4.0 mmol/L Normal 3.7-5.3 [facility] Comment on above: Performed By: #### B C #### [facility] [employer] [address] [place] [address] Rail Bender: Sarath Olivera MD Sodium [Moles/Vol] 142 mmol/L Normal 136-145 [facility] Comment on above: Performed By: #### B C #### [address] [address] Rail Bender: Sarath Olivera MD Urea nitrogen [Mass/Vol] 24 mg/dL High 8- [facility] Comment on above: Performed By: #### B C #### [address] [address] Rail Bender: Sarath Olivera MD CBCon 02-22-2024 Erythrocyte distribution width (RBC) [Ratio] 17.2 % High 11.8-14.4 [facility] Comment on above: Performed By: #### B C #### [address] [address] Rail Bender: Sarath Olivera MD Hematocrit (Bld) [Volume fraction] 32.6 % Low 36.3-47.1 [facility] Comment on above: Performed By: #### B C #### [address] [address] Rail Bender: Sarath Olivera MD Hemoglobin (Bld) [Mass/Vol] 9.9 g/dL Low 11.9-15.1 [facility] Comment on above: Performed By: #### B C #### [address] [address] Rail Bender: Sarath Olivera MD MCH (RBC) [Entitic mass] 30.6 pg Normal 25.2-33.5 [facility] Comment on above: Performed By: #### B C #### [address] [address] Rail Bender: Sarath Olivera MD MCHC (RBC) [Mass/Vol] 30.4 g/dL Normal 28.4-34.8 [facility] Comment on above: Performed By: #### B C #### [address] [address] Rail Bender: Sarath Olivera MD MCV (RBC) [Entitic vol] 100.6 fL Normal 82.6-102.9 [facility] Comment on above: Performed By: #### B C #### [address] [address] Rail Bender: Sarath Olivera MD NRBC Automated 0.0 per 100 WBC Normal 0.0 [facility] Comment on above: Performed By: #### B C #### [address] [address] Rail Bender: Sarath Olivera MD Platelet mean volume (Bld) [Entitic vol] 12.0 fL Normal 8.1-13.5 [facility] Comment on above: Performed By: #### B C #### [address] [address] Rail Bender: Sarath Olivera MD Platelets (Bld) [#/Vol] 192 10*3/uL Normal 138-453 [facility] Comment on above: Performed By: #### B C #### [address] [address] Rail Bender: Sarath Olivera MD RBC (Bld) [#/Vol] 3.24 10*6/uL Low 3.95-5.11 [facility] Comment on above: Performed By: #### B C #### [address] [address] Rail Bender: Sarath Olivera MD WBC (Bld) [#/Vol] 8.0 10*3/uL Normal 3.5-11.3 [facility] Comment on above: Performed By: #### B C #### [address] [address] Rail Bender: Sarath Olivera MD PTon 02-22-2024 INR Coag (PPP) [Relative time] 1.6 {INR} Normal [facility] Comment on above: Result Comment: Therapeutic Range: Moderate Anticoagulant Intensity: INR = 2.0-3.0 High Anticoagulant Intensity: INR = 2.5-3.5 Performed By: #### D BOOKER UAMIC #### [facility] [address] [place] [address] Rail Bender: Sarath Olivera MD PT Coag (PPP) [Time] 18.6 s High 11.7-14.9 [facility] Comment on above: Performed By: #### D BOOKER UAMIC #### [facility] [employer] [address] [place] [address] Rail Bender: Sarath Olivera MD Basic Metab w/rfx MGon 02-20 Anion gap [Moles/Vol] 6 mmol/L Low 9-16 [facility] Comment on above: Performed By: #### B MPX, PT, CBC ####[facility] [address] [place], [place] [address])[phone] Director: Sarath Olivera MD Calcium [Mass/Vol] 8.5 mg/dL Low 8.6-10.4 [facility] Comment on above: Performed By: #### B MPX, PT, CBC ####[facility] [address] [place], [place] [phone] Director: Sarath Olivera MD Chloride [Moles/Vol] 108 mmol/L High 98-107 [facility] Comment on above: Performed By: #### B MPX, PT, CBC ####[facility] [address] [place], [place] [phone] Director: Sarath Olivera MD CO2 [Moles/Vol] 29 mmol/L Normal 20-31 [facility] Comment on above: Performed By: #### B MPX, PT, CBC ####[facility] [address] [place], [place] [address])[phone] Director: Sarath Olivera MD Creatinine [Mass/Vol] 0.7 mg/dL Normal 0.50-0.90 [facility] Comment on above: Performed By: #### B MPX, PT, CBC ####[facility] [address] [place] [address] Lab Director: Sarath Olivera MD GFR/1.73 sq M.predicted among non-blacks MDRD (S/P/Bld) [Vol rate/Area] 81 mL/min/{1.73_m2} Normal >60 [facility] Comment on above: Result Comment: These [...] Performed By: #### B MPX, PT, CBC ####[facility] [address] [place] [address] [phone] Director: Sarath Olivera MD Glucose [Mass/Vol] 122 mg/dL High 74-99 [facility] Comment on above: Performed By: #### B MPX, PT, CBC ####[facility] [address] [place] [address] [phone] Director: Sarath Olivera MD Potassium [Moles/Vol] 4.2 mmol/L Normal 3.7-5.3 [facility] Comment on above: Performed By: #### B MPX, PT, CBC ####[facility] [address] [place] [address] [phone] Director: Sarath Olivera MD Sodium [Moles/Vol] 143 mmol/L Normal 136-145 [facility] Comment on above: Performed By: #### B MPX, PT, CBC ####[facility] [address] [place] [address] Lab Director: Sarath Olivera MD Urea nitrogen [Mass/Vol] 22 mg/dL Normal 8-23 [facility] Comment on above: Performed By: #### B MPX, PT, CBC ####[facility] [address] [place], [place] [phone] Director: Sarath Olivera MD CBCon 02-21-2024 Erythrocyte distribution width (RBC) [Ratio] 17.5 % High 11.8-14.4 [facility] Comment on above: Performed By: #### B MPX, PT, CBC ####[facility] [address] [place], [place] [phone] Director: Sarath Olivera MD Hematocrit (Bld) [Volume fraction] 32.1 % Low 36.3-47.1 [facility] Comment on above: Performed By: #### B MPX, PT, CBC ####[facility] [address] [place], [place] [phone] Director: Sarath Olivera MD Hemoglobin (Bld) [Mass/Vol] 9.7 g/dL Low 11.9-15.1 [facility] Comment on above: Performed By: #### B MPX, PT, CBC ####[facility] [address] [place], [place] [phone] Director: Sarath Oilvera MD MCH (RBC) [Entitic mass] 30.5 pg Normal 25.2-33.5 [facility] Comment on above: Performed By: #### B MPX, PT, CBC ####[facility] [address] [place], [place] [phone] Director: Sarath Olivera MD MCHC (RBC) [Mass/Vol] 30.2 g/dL Normal 28.4-34.8 [facility] Comment on above: Performed By: #### B MPX, PT, CBC ####[facility] [address]ty[address] [place], [place] [phone] Director: Sarath Olivera MD MCV (RBC) [Entitic vol] 100.9 fL Normal 82.6-102.9 [facility] Comment on above: Performed By: #### B MPX, PT, CBC ####[facility] [address] [place] [address] [phone] Director: Sarath Olivera MD NRBC Automated 0.0 per 100 WBC Normal 0.0 [facility] Comment on above: Performed By: #### B MPX, PT, CBC ####[address] [phone] Director: Sarath Olivera MD Platelet mean volume (Bld) [Entitic vol] 11.8 fL Normal 8.1-13.5 [facility] Comment on above: Performed By: #### B MPX, PT, CBC ####[facility] [address] [place] [address] [phone] Director: Sarath Olivera MD Platelets (Bld) [#/Vol] 183 10*3/uL Normal 138-453 [facility] Comment on above: Performed By: #### B MPX, PT, CBC ####[address] [phone] Director: Sartah Olivera MD RBC (Bld) [#/Vol] 3.18 10*6/uL Low 3.95-5.11 [facility] Comment on above: Performed By: #### B MPX, PT, CBC ####[facility] [address] [place] [address] [phone] Director: Sarath Olivera MD WBC (Bld) [#/Vol] 10.7 10*3/uL Normal 3.5-11.3 [facility] Comment on above: Performed By: #### B MPX, PT, CBC ####[facility] [address] Lab Director: Sarath Olivera MD PTon 02-21-2024 INR Coag (PPP) [Relative time] 1.6 {INR} Normal [facility] Comment on above: Result Comment: Therapeutic Range: Moderate Anticoagulant Intensity: INR = 2.0-3.0 High Anticoagulant Intensity: INR = 2.5-3.5 Performed By: #### B MPX, PT, CBC ####[address] [address] Lab Director: Sarath Olivera MD PT Coag (PPP) [Time] 18.8 s High 11.7-14.9 [facility] Comment on above: Performed By: #### B MPX, PT, CBC ####[facility] [address] [place] [address] Lab Director: Sarath Olivera MD Basic Metab w/rfx MGon 02-19 Anion gap [Moles/Vol] 6 mmol/L Low 9-16 [facility] Comment on above: Performed By: #### P T, BMPX, CBC ####[facility] [address] [place] [address] Lab Director: Sarath Olivera MD Calcium [Mass/Vol] 8.6 mg/dL Normal 8.6-10.4 [facility] Comment on above: Performed By: #### P T, BMPX, CBC ####[facility] [address] [place] [address] Lab Director: Sarath Olivera MD Chloride [Moles/Vol] 107 mmol/L Normal 98-107 [facility] Comment on above: Performed By: #### P T, BMPX, CBC ####[facility] [address] [place] [address] Lab Director: Sarath Olivera MD CO2 [Moles/Vol] 30 mmol/L Normal 20-31 [facility] Comment on above: Performed By: #### P T, BMPX, CBC ####[facility] [address] [place] [address] Lab Director: Sarath Olivera MD Creatinine [Mass/Vol] 0.9 mg/dL Normal 0.50-0.90 [facility] Comment on above: Performed By: #### P T, BMPX, CBC ####[facility] [address] [place] [address] Lab Director: Sarath Olivera MD GFR/1.73 sq M.predicted among non-blacks MDRD (S/P/Bld) [Vol rate/Area] 64 mL/min/{1.73_m2} Normal >60 [facility] Comment on above: Result Comment: These [...] By: #### P T, BMPX, CBC ####[facility] [address] [place] [address] Lab Director: Sarath Olivera MD Glucose [Mass/Vol] 143 mg/dL High 74-99 [facility] Comment on above: Performed By: #### P T, BMPX, CBC ####[facility] [address] [place] [address] Lab Director: Sarath Olivera MD Potassium [Moles/Vol] 4.2 mmol/L Normal 3.7-5.3 [facility] Comment on above: Performed By: #### P T, BMPX, CBC ####[facility] [address] [place] [address] Lab Director: Sarath Olivera MD Sodium [Moles/Vol] 143 mmol/L Normal 136-145 [facility] Comment on above: Performed By: #### P T, BMPX, CBC ####[facility] [address] [place] [address] Lab Director: Sarath Olivera MD Urea nitrogen [Mass/Vol] 20 mg/dL Normal 8-23 [facility] Comment on above: Performed By: #### P T, BMPX, CBC ####[facility] [address] [place] [address] Lab Director: Sarath Olivera MD CBCon 02-20-2024 Erythrocyte distribution width (RBC) [Ratio] 17.4 % High 11.8-14.4 [facility] Comment on above: Performed By: #### P T, BMPX, CBC ####[facility] [address] [place] [address] Lab Director: Sarath Olivera MD Hematocrit (Bld) [Volume fraction] 32.6 % Low 36.3-47.1 [facility] Comment on above: Performed By: #### P T, BMPX, CBC ####[facility] [address] [place] [address] Lab Director: Saraht Olivera MD Hemoglobin (Bld) [Mass/Vol] 9.9 g/dL Low 11.9-15.1 [facility] Comment on above: Performed By: #### P T, BMPX, CBC ####[facility] [address] [place] [address] Lab Director: Sarath Olivera MD MCH (RBC) [Entitic mass] 30.7 pg Normal 25.2-33.5 [facility] Comment on above: Performed By: #### P T, BMPX, CBC ####[facility] [address] [place] [address] Lab Director: Sarath Olivera MD MCHC (RBC) [Mass/Vol] 30.4 g/dL Normal 28.4-34.8 [facility] Comment on above: Performed By: #### P T, BMPX, CBC ####[facility] [address] [place] [address] [phone] Director: Sarath Olivera MD MCV (RBC) [Entitic vol] 100.9 fL Normal 82.6-102.9 [facility] Comment on above: Performed By: #### P T, BMPX, CBC ####[facility] [address] [place] [address] [phone] Director: Sarath Olivera MD NRBC Automated 0.0 per 100 WBC Normal 0.0 [facility] Comment on above: Performed By: #### P T, BMPX, CBC ####[address] [phone] Director: Sarath Olivera MD Platelet mean volume (Bld) [Entitic vol] 11.6 fL Normal 8.1-13.5 [facility] Comment on above: Performed By: #### P T, BMPX, CBC ####[address] [phone] Director: Sarath Olivera MD Platelets (Bld) [#/Vol] 176 10*3/uL Normal 138-453 [facility] Comment on above: Performed By: #### P T, BMPX, CBC ####[facility] [address] [place] [address] [phone] Director: Sarath Olivera MD RBC (Bld) [#/Vol] 3.23 10*6/uL Low 3.95-5.11 [facility] Comment on above: Performed By: #### P T, BMPX, CBC ####[facility] [address] [place] [address] [phone] Director: Sarath Olivera MD WBC (Bld) [#/Vol] 12.8 10*3/uL High 3.5-11.3 [facility] Comment on above: Performed By: #### P T, BMPX, CBC ####[facility] [address] [place] [address] Lab Director: Sarath Olivera MD PTon 02-20-2024 INR Coag (PPP) [Relative time] 1.7 {INR} Normal [facility] Comment on above: Result Comment: Therapeutic Range: Moderate Anticoagulant Intensity: INR = 2.0-3.0 High Anticoagulant Intensity: INR = 2.5-3.5 Performed By: #### P T, BMPX, CBC ####[facility] [address] [place] [address] Lab Director: Sarath Olivera MD PT Coag (PPP) [Time] 19.9 s High 11.7-14.9 [facility] Comment on above: Performed By: #### P T, BMPX, CBC ####[facility] [address]20[address] [place] [address] Lab Director: Sarath Olivera MD Basic Metab w/rfx MGon 02-18 Anion gap [Moles/Vol] 7 mmol/L Low 9-16 [facility] Comment on above: Performed By: #### C BC, PT, BMPX ####[facility] [address] [place] [address] Lab Director: aSrath Olivera MD Calcium [Mass/Vol] 8.3 mg/dL Low 8.6-10.4 [facility] Comment on above: Performed By: #### C BC, PT, BMPX ####[facility] [address] [place] [address] Lab Director: Sarath Olivera MD Chloride [Moles/Vol] 106 mmol/L Normal 98-107 [facility] Comment on above: Performed By: #### C BC, PT, BMPX ####[facility] [address] [place] [address] Lab Director: Sarath Olivera MD CO2 [Moles/Vol] 27 mmol/L Normal 20-31 [facility] Comment on above: Performed By: #### C BC, PT, BMPX ####[address] [address] Lab Director: Sarath Olivera MD Creatinine [Mass/Vol] 0.8 mg/dL Normal 0.50-0.90 [facility] Comment on above: Performed By: #### C PAOLA, PT, BMPX ####[address] [address] Lab Director: Sarath Olivera MD GFR/1.73 sq M.predicted among non-blacks MDRD (S/P/Bld) [Vol rate/Area] 78 mL/min/{1.73_m2} Normal >60 [facility] Comment on above: Result Comment: These [...] Performed By: #### C PAOLA PT, BMPX ####[facility] [address] [place] [address] Lab Director: Sarath Olivera MD Glucose [Mass/Vol] 174 mg/dL High 74-99 [facility] Comment on above: Performed By: #### C BC PT, BMPX ####[facility] [address] [place] [address] Lab Director: Sarath Olivera MD Potassium [Moles/Vol] 4.3 mmol/L Normal 3.7-5.3 [facility] Comment on above: Performed By: #### C BC, PT, BMPX ####[facility] [address] [place], [place] [phone] Director: Sarath Olivera MD Sodium [Moles/Vol] 140 mmol/L Normal 136-145 [facility] Comment on above: Performed By: #### C BC, PT, BMPX ####[facility] [address] [place], [place] [phone] Director: Sarath Olivera MD Urea nitrogen [Mass/Vol] 14 mg/dL Normal 8-23 [facility] Comment on above: Performed By: #### C BC, PT, BMPX ####[facility] [address] [place], [place] [phone] Director: Sarath Olivera MD CBCon 02-19-2024 Erythrocyte distribution width (RBC) [Ratio] 17.8 % High 11.8-14.4 [facility] Comment on above: Performed By: #### C BC, PT, BMPX ####[facility] [address] [place], [place] [address])[phone] Director: Sarath Olivera MD Hematocrit (Bld) [Volume fraction] 33.5 % Low 36.3-47.1 [facility] Comment on above: Performed By: #### C BC, PT, BMPX ####[facility] [address] [place], [place] [address])[phone] Director: Sarath Olivera MD Hemoglobin (Bld) [Mass/Vol] 9.7 g/dL Low 11.9-15.1 [facility] Comment on above: Performed By: #### C BC, PT, BMPX ####[facility] [address] [place], [place] [phone] Director: Sarath Olivera MD MCH (RBC) [Entitic mass] 31.1 pg Normal 25.2-33.5 [facility] Comment on above: Performed By: #### C BC, PT, BMPX ####[facility] [address] [place], [place] [phone] Director: Sarath Olivera MD MCHC (RBC) [Mass/Vol] 29.0 g/dL Normal 28.4-34.8 [facility] Comment on above: Performed By: #### C BC, PT, BMPX ####[facility] [address] [place], [place] [phone])[phone] Director: Sarath Olivera MD MCV (RBC) [Entitic vol] 107.4 fL High 82.6-102.9 [facility] Comment on above: Performed By: #### C BC, PT, BMPX ####[facility] [address] [place], [place] [phone] Director: Sarath Olivera MD NRBC Automated 0.0 per 100 WBC Normal 0.0 [facility] Comment on above: Performed By: #### C BC, PT, BMPX ####[facility] [address] [place] [address] [phone] Director: Sarath Olivera MD Platelet mean volume (Bld) [Entitic vol] 11.5 fL Normal 8.1-13.5 [facility] Comment on above: Performed By: #### C BC, PT, BMPX ####[facility] [address] [place] [address] [phone] Director: Sarath Olivera MD Platelets (Bld) [#/Vol] 165 10*3/uL Normal 138-453 [facility] Comment on above: Performed By: #### C BC, PT, BMPX ####[facility] [address] [place], [place] [id number])[phone] Director: Sarath Olivera MD RBC (Bld) [#/Vol] 3.12 10*6/uL Low 3.95-5.11 [facility] Comment on above: Performed By: #### C BC, PT, BMPX ####[facility] [address] [place], [place] [phone] Director: Sarath Olivera MD WBC (Bld) [#/Vol] 10.3 10*3/uL Normal 3.5-11.3 [facility] Comment on above: Performed By: #### C BC, PT, BMPX ####[facility] [address] [place], [place] [address])[phone] Director: Sarath Olivera MD PTon 6 INR Coag (PPP) [Relative time] 1.7 {INR} Normal [facility] Comment on above: Result Comment: Therapeutic Range: Moderate Anticoagulant Intensity: INR = 2.0-3.0 High Anticoagulant Intensity: INR = 2.5-3.5 Performed By: #### C BC, PT, BMPX ####[place], [place] [address])[phone] Director: Sarath Olivera MD PT Coag (PPP) [Time] 19.3 s High 11.7-14.9 [facility] Comment on above: Performed By: #### C BC, PT, BMPX ####[place], [place] [address])[phone] Director: Sarath Olivera MD CBC with Diffon Abs. Basophil <0.03 Normal 0.00-0.20 [facility] Comment on above: Performed By: #### B C #### [facility] [employer] [address] [place] [address] Rail Bender: Sarath Olivera MD Abs. Eosinophil <0.03 Normal 0.00-0.44 [facility] Comment on above: Performed By: #### B C #### [facility] [address] [place] [address] Rail Bender: Sarath Olivera MD Abs.Imm.Granulocyte 0.06 k/uL Normal 0.00-0.30 [facility] Comment on above: Performed By: #### B C #### [address] [address] Rail Bender: Sarath Olivera MD Abs.Neutrophil (Seg) 9.40 k/uL High 1.50-8.10 [facility] Comment on above: Performed By: #### B C #### [address] [address] Rail [employer]: Sarath Olivera MD Basophils/100 WBC (Bld) 0 % Normal 0-2 [facility] Comment on above: Performed By: #### B C #### [address] [address] Rail Bender: Sarath Olivera MD Eosinophils/100 WBC (Bld) 0 % Low 1-4 [facility] Comment on above: Performed By: #### B C #### [address] [address] Rail Bender: Sarath Olivera MD Erythrocyte distribution width (RBC) [Ratio] 17.9 % High 11.8-14.4 [facility] Comment on above: Performed By: #### B C #### [address] [address] Rail [employer]ender: Sarath Olivera MD Hematocrit (Bld) [Volume fraction] 39.2 % Normal 36.3-47.1 [facility] Comment on above: Performed By: #### B C #### [address] [address] Rail [employer]ender: Sarath Olivera MD Hemoglobin (Bld) [Mass/Vol] 11.9 g/dL Normal 11.9-15.1 [facility] Comment on above: Performed By: #### B C #### [address] [address] Rail [employer]ender: Sarath Olivera MD Immature granulocytes/100 WBC (Bld) 1 % High 0 [facility] Comment on above: Performed By: #### B C #### [address] [address] Rail [employer]ender: Sarath Olivera MD Lymphocytes (Bld) [#/Vol] 1.51 10*3/uL Normal 1.10-3.70 [facility] Comment on above: Performed By: #### B C #### [address] [address] Rail Bender: Sarath Olivera MD Lymphocytes/100 WBC (Bld) 13 % Low 24-43 [facility] Comment on above: Performed By: #### B C #### [address] [address] Rail Bender: Sarath Olivera MD MCH (RBC) [Entitic mass] 30.9 pg Normal 25.2-33.5 [facility] Comment on above: Performed By: #### B C #### [place] [address] [employer]: Sarath Olivera MD MCHC (RBC) [Mass/Vol] 30.4 g/dL Normal 28.4-34.8 [facility] Comment on above: Performed By: #### B C #### [address] [address] Rail [employer]: Sarath Olivera MD MCV (RBC) [Entitic vol] 101.8 fL Normal 82.6-102.9 [facility] Comment on above: Performed By: #### B C #### [address] [address] Rail Bender: Sarath Olivera MD Monocytes (Bld) [#/Vol] 0.50 10*3/uL Normal 0.10-1.20 [facility] Comment on above: Performed By: #### B C #### [address] [address] Rail Bender: Sarath Olivera MD Monocytes/100 WBC (Bld) 4 % Normal 3-12 [facility] Comment on above: Performed By: #### B C #### [address] [address] Rail Bender: Sarath Olivera MD Neutrophil (Seg) 82 % High 36-65 [facility] Comment on above: Performed By: #### B C #### [address] [address] Rail [employer]: Sarath Olivera MD NRBC Automated 0.0 per 100 WBC Normal 0.0 [facility] Comment on above: Performed By: #### B C #### [address] [address] Rail [employer]: Sarath Olivera MD Platelet mean volume (Bld) [Entitic vol] 11.2 fL Normal 8.1-13.5 [facility] Comment on above: Performed By: #### B C #### [address] [address] Rail [employer]: Sarath Olivera MD Platelets (Bld) [#/Vol] 254 10*3/uL Normal 138-453 [facility] Comment on above: Performed By: #### B C #### [address] [address] Rail Bender: Sarath Olivera MD RBC (Bld) [#/Vol] 3.85 10*6/uL Low 3.95-5.11 [facility] Comment on above: Performed By: #### B C #### [address] [address] Rail Bender: Sarath Olivera MD RBC morphology finding Nom (Bld) ANISOCYTOSIS PRESENT Normal [facility] Comment on above: Performed By: #### B C #### [address] [address] Rail [employer]: Sarath Olivera MD WBC (Bld) [#/Vol] 11.5 10*3/uL High 3.5-11.3 [facility] Comment on above: Performed By: #### B C #### [address] [address] Rail B[employer]: Sarath Olivera MD Comp Metabolic Pr/rfx MGon 0 - Albumin [Mass/Vol] 3.6 g/dL Normal 3.5-5.2 [facility] Comment on above: Performed By: #### B C #### [address] [address] Rail B[employer]: Sarath Olivera MD Albumin/Glob Ratio 1.0 Normal 1.0-2.5 [facility] Comment on above: Performed By: #### B C #### [address] [address] Rail [employer]: Sarath Olivera MD Alkaline Phos 131 U/L High 35-104 [facility] Comment on above: Performed By: #### B C #### [address] [address] Rail [employer]: Sarath Olivera MD ALT [Catalytic activity/Vol] 7 U/L Low 10-35 [facility] Comment on above: Performed By: #### B C #### [address] [address] Rail [employer]: Sarath Olivera MD Anion gap [Moles/Vol] 13 mmol/L Normal 9-16 [facility] Comment on above: Performed By: #### B C #### [address] [address] Rail [employer]: Sarath Olivera MD AST [Catalytic activity/Vol] 26 U/L Normal 10-35 [facility] Comment on above: Performed By: #### B C #### [address] [address] Rail [employer]ender: Sarath Olivera MD Bilirubin [Mass/Vol] 0.5 mg/dL Normal 0.00-1.20 [facility] Comment on above: Performed By: #### B C #### [address] [address] Rail B[employer]: Sarath Olivera MD Calcium [Mass/Vol] 9.0 mg/dL Normal 8.6-10.4 [facility] Comment on above: Performed By: #### B C #### [address] [address] Rail Bender: Sarath Olivera MD Chloride [Moles/Vol] 103 mmol/L Normal 98-107 [facility] Comment on above: Performed By: #### B C #### [address] [address] Rail [employer]: Sarath Olivera MD CO2 [Moles/Vol] 27 mmol/L Normal 20-31 [facility] Comment on above: Performed By: #### B C #### [address] [address] Rail Bender: Sarath Olivera MD Creatinine [Mass/Vol] 0.9 mg/dL Normal 0.50-0.90 [facility] Comment on above: Performed By: #### B C #### [address] [address] Rail Bender: Sarath Olivera MD GFR/1.73 sq M.predicted among non-blacks MDRD (S/P/Bld) [Vol rate/Area] 61 mL/min/{1.73_m2} Normal >60 [facility] Comment on above: Result Comment: These [...] secretion. Performed By: #### B C #### [facility] [employer] [address] [place] [address] Rail [employer]: Sarath Olivera MD Glucose [Mass/Vol] 240 mg/dL High 74-99 [facility] Comment on above: Performed By: #### B C #### [address] [address] Rail Bender: Sarath Olivera MD Potassium [Moles/Vol] 4.4 mmol/L Normal 3.7-5.3 [facility] Comment on above: Performed By: #### B C #### [facility] [employer] [address] [place] [address] Rail [employer]ender: Sarath Olivera MD Protein [Mass/Vol] 6.4 g/dL Low 6.6-8.7 [facility] Comment on above: Performed By: #### B C #### [facility] [employer] [address] [place] [address] Rail Bender: Sarath Olivera MD Sodium [Moles/Vol] 143 mmol/L Normal 136-145 [facility] Comment on above: Performed By: #### B C #### [address] [address] Rail [employer]: Sarath Olivera MD Urea nitrogen [Mass/Vol] 10 mg/dL Normal 8-23 [facility] Comment on above: Performed By: #### B C #### [address] [address] Rail Bender: Sarath Olivera MD PTon 02-18-2024 INR Coag (PPP) [Relative time] 1.4 {INR} Normal [facility] Comment on above: Result Comment: Therapeutic Range: Moderate Anticoagulant Intensity: INR = 2.0-3.0 High Anticoagulant Intensity: INR = 2.5-3.5 Performed By: #### B C #### [address] [address] Rail Bender: Sarath Olivera MD PT Coag (PPP) [Time] 17.1 s High 11.7-14.9 [facility] Comment on above: Performed By: #### B C #### [address] [address] Rail Bender: Sarath Olivera MD Type + Screenon 02-18-2024 Type + Screen Sample Expiration 02/20/2024,2359 Arm Band Number [id number] ABO/Rh(D) O POSITIVE Antibody Screen NEGATIVE Unit Number [id number] Blood Component Type Leukocyte Reduced Red Cell Unit Division 00 Status of Unit REL FROM ALLOC Transfusion Status OK TO TRANSFUSE Crossmatch Result COMPATIBLE Unit Number [id number] Blood Component Type Leukocyte Reduced Red Cell Unit Division 00 Status of Unit REL FROM ALLOC Transfusion Status OK TO TRANSFUSE Crossmatch Result COMPATIBLE Normal [facility] Comment on above: Performed By: #### T YS #### [address] [address] Rail B[employer]: Sarath Olivera MD XR SHOULDER LEFT (MIN [...] Lucian Dee MD 02/18/24 Final result Normal [facility] APTTon 02-17-2024 aPTT Coag (Bld) [Time] 28.7 s Normal 23.0-36.5 [facility] Comment on above: Result Comment: IV Heparin Therapy Range: 66.0-92.0 sec Performed By: #### D AU, UAMIC #### [address] [address] Rail B[employer]: Sarath Olivera MD aPTT Coag (Bld) [Time] 30.9 s Normal 23.0-36.5 [facility] Comment on above: Result Comment: IV Heparin Therapy Range: 66.0-92.0 sec Performed By: #### B C #### [address] [address] Rail Bender: Sarath Olivera MD FFP, Transfuseon 02-17-2024 FFP, Transfuse Unit Number [id number] Blood Component Type FRESH PLASMA Unit Division 00 Status of Unit TRANSFUSED Transfusion Status OK TO TRANSFUSE [facility] Comment on above: Performed By: #### B C #### [address] [address] Rail Bender: Sarath Olivera MD FFP, Transfuse Unit Number [id number] Blood Component Type FRESH PLASMA Unit Division 00 Status of Unit TRANSFUSED Transfusion Status OK TO TRANSFUSE [facility] Comment on above: Performed By: #### T FFP #### [address] [address] Rail Bender: Sarath Olivera MD PTon 02-17-2024 INR Coag (PPP) [Relative time] 1.5 {INR} Normal [facility] Comment on above: Result Comment: Therapeutic Range: Moderate Anticoagulant Intensity: INR = 2.0-3.0 High Anticoagulant Intensity: INR = 2.5-3.5 Performed By: #### D CECY CELESTE #### [facility] [address] [place] [address] Rail Bender: Sarath Olivera MD PT Coag (PPP) [Time] 17.4 s High 11.7-14.9 [facility] Comment on above: Performed By: #### D CECY CELESTE #### [facility] [address] [place] [address] Rail Bender: Sarath Olivera MD INR Coag (PPP) [Relative time] 1.7 {INR} Normal [facility] Comment on above: Result Comment: Therapeutic Range: Moderate Anticoagulant Intensity: INR = 2.0-3.0 High Anticoagulant Intensity: INR = 2.5-3.5 Performed By: #### B C #### [facility] [address] [place] [address] Rail Bender: Sarath Olivera MD PT Coag (PPP) [Time] 19.8 s High 11.7-14.9 [facility] Comment on above: Performed By: #### B C #### [facility] [address] [place] [address] Rail Bender: Sarath Olivera MD PT (Whole Blood)on 4 Intl. Normal. Ratio 2.0 Normal [facility] Comment on above: Result Comment: Therapeutic Range: Moderate Anticoagulant Intensity: INR = 2.0-3.0 High Anticoagulant Intensity: INR = 2.5-3.5 PT Coag (PPP) [Time] 23.6 s High 10.4-14.2 [facility] CBC with Auto Differentialon 02-02-2024 Basophils (Bld) [#/Vol] [employer] Basophils/100 WBC (Bld) 0 % 0 - 2 % [employer] Eosinophils (Bld) [#/Vol] 0.08 10*3/uL [employer] Eosinophils/100 WBC (Bld) 1 % 1 - 4 % [facility] Erythrocyte distribution width (RBC) [Ratio] 16.1 % High 11.8 - 14.4 % [facility] Hematocrit (Bld) [Volume fraction] 33.7 % Low 36.3 - 47.1 % [facility] Hemoglobin (Bld) [Mass/Vol] 10.4 g/dL Low 11.9 - 15.1 g/dL [facility] Immature granulocytes (Bld) [#/Vol] [facility] Immature granulocytes/100 WBC (Bld) 0 % 0 [facility] Interpretation and review of laboratory results Abnormal [facility] Lymphocytes/100 WBC (Bld) 34 % 24 - 43 % [facility] Lymphocytes/100 WBC (Bld) 1.89 % [facility] MCH (RBC) [Entitic mass] 30.6 pg 25.2 - 33.5 pg [facility] MCHC (RBC) [Mass/Vol] 30.9 g/dL 28.4 - 34.8 g/dL [facility] MCV (RBC) [Entitic vol] 99.1 fL 82.6 - 102.9 fL [facility] Monocytes/100 WBC (Bld) 8 % 3 - 12 % [facility] Monocytes/100 WBC (Bld) 0.44 % [facility] Neutrophils/100 WBC (Bld) 57 % 36 - 65 % [facility] Nucleated RBC/100 WBC (Bld) [Ratio] 0.0 % 0.0 per 100 WBC [facility] Platelet mean volume (Bld) [Entitic vol] 11.6 fL 8.1 - 13.5 fL [facility] Platelets (Bld) [#/Vol] 250 10*3/uL [facility] RBC (Bld) [#/Vol] 3.40 10*6/uL Low 3.95 - 5.1 1 m/uL [facility] Segmented neutrophils/100 WBC (Bld) 3.17 % [facility] WBC other (Bld) [#/Vol] 5.6 [facility] CBC with Diffon 02-02-2024 Abs. Basophil <0.03 Normal 0.00-0.20 [facility] Comment on above: Performed By: #### C P, CDP #### [facility] [address] [place], [place] 849[address]83 Rail Bender: Concepción De La Torre MD Abs.Imm.Granulocyte <0.03 Normal 0.00-0.30 [facility] Comment on above: Performed By: #### C P, CDP #### [facility] [address] [place], [place] [address] Rail Bender: Concepción De La Torre MD Abs.Neutrophil (Seg) 3.17 k/uL Normal 1.50-8.10 [facility] Comment on above: Performed By: #### C P, CDP #### [facility] [address] [place], [facility] Rail Bender: Concepción De La Torre MD Basophils/100 WBC (Bld) 0 % Normal 0-2 [facility] Comment on above: Performed By: #### C P, CDP #### [facility] [address] [place] [address] Dr[address] [place], [place] 8558783 [employer]: Concepción De La Torre MD Eosinophils (Bld) [#/Vol] 0.08 10*3/uL Normal 0.00-0.44 [facility] Comment on above: Performed By: #### C P, CDP #### [facility] [address] [place], [place] 813[address]83 [employer]: Concepción De La Torre MD Eosinophils/100 WBC (Bld) 1 % Normal 1-4 [facility] Comment on above: Performed By: #### C P, CDP #### [address] [place], [place] 1596683 [employer]: Concepción De La Torre MD Erythrocyte distribution width (RBC) [Ratio] 16.1 % High 11.8-14.4 [facility] Comment on above: Performed By: #### C P, CDP #### [facility] [address] [place], [place] [phone] [employer]ender: Concepción De LaT orre MD Hematocrit (Bld) [Volume fraction] 33.7 % Low 36.3-47.1 [facility] Comment on above: Performed By: #### C P, CDP #### [facility] [address] [place], [facility] Rail [employer]ender: Concepción De La Torre MD Hemoglobin (Bld) [Mass/Vol] 10.4 g/dL Low 11.9-15.1 [facility] Comment on above: Performed By: #### C P, CDP #### [address] [place], [place] [phone] [employer]: Concepción De La Torre MD Immature granulocytes/100 WBC (Bld) 0 % Normal 0 [facility] Comment on above: Performed By: #### C P, CDP #### [address] [place], [place] [phone] [employer]: Concepción De La Torre MD Lymphocytes (Bld) [#/Vol] 1.89 10*3/uL Normal 1.10-3.70 [facility] Comment on above: Performed By: #### C P, CDP #### [facility] [address] [place] [address] Dr[address] [place], [place] [address] Rail Bender: Concepción De La Torre MD Lymphocytes/100 WBC (Bld) 34 % Normal 24-43 [facility] Comment on above: Performed By: #### C P, CDP #### [address] [place], [facility] Rail B[employer]: Concepción De La Torre MD MCH (RBC) [Entitic mass] 30.6 pg Normal 25.2-33.5 [facility] Comment on above: Performed By: #### C P, CDP #### [address] [place], [place] 7493283 Rail [employer]: Concepción De La Torre MD MCHC (RBC) [Mass/Vol] 30.9 g/dL Normal 28.4-34.8 [facility] Comment on above: Performed By: #### C P, CDP #### [address] [place], [place] 6121583 Rail [employer]: Concepción De La Torre MD MCV (RBC) [Entitic vol] 99.1 fL Normal 82.6-102.9 [facility] Comment on above: Performed By: #### C P, CDP #### [address] [place], [place] [phone] [employer]: Concepción De La Torre MD Monocytes (Bld) [#/Vol] 0.44 10*3/uL Normal 0.10-1.20 [facility] Comment on above: Performed By: #### C P, CDP #### [address] [place], [place] 8655083 [employer]: Concepción De La Torre MD Monocytes/100 WBC (Bld) 8 % Normal 3-12 [facility] Comment on above: Performed By: #### C P, CDP #### [address] [place], [place] [phone] [employer]: Concepción De La Torre MD Neutrophil (Seg) 57 % Normal 36-65 [facility] Comment on above: Performed By: #### C P, CDP #### [address] [place], [place] 1260183 Rail [employer]: Concepción De La Torre MD NRBC Automated 0.0 per 100 WBC Normal 0.0 [facility] Comment on above: Performed By: #### C P, CDP #### [address] [place], [place] 984[address]83 [employer]: Concepción De La Torre MD Platelet mean volume (Bld) [Entitic vol] 11.6 fL Normal 8.1-13.5 [facility] Comment on above: Performed By: #### C P, CDP #### [facility] [address] [place] [address] Rail Bender: Concepción De La Torre MD Platelets (Bld) [#/Vol] 250 10*3/uL Normal 138-453 [facility] Comment on above: Performed By: #### C P, CDP #### [facility] [address] [place] [address] Dr[address] [place], [place] 2305083 Rail [employer]: Concepción De La Torre MD RBC (Bld) [#/Vol] 3.40 10*6/uL Low 3.95-5.11 [facility] Comment on above: Performed By: #### C P, CDP #### [address] [place], [place] 0271283 [employer]: Concepción De La Torre MD WBC (Bld) [#/Vol] 5.6 10*3/uL Normal 3.5-11.3 [facility] Comment on above: Performed By: #### C P, CDP #### [address] [place], [place] 5281083 Rail [employer]: Concepción De La Torre MD Comp Metabolic Profon 2023 Albumin [Mass/Vol] 2.7 g/dL Low 3.5-5.2 [facility] Comment on above: Performed By: #### C P, CDP #### [facility] [address] [place] [address] Dr[address] [place], [place] [phone] Rail [employer]: Concepción De La Torre MD Albumin/Glob Ratio 1.0 Normal 1.0-2.5 [facility] Comment on above: Performed By: #### C P, CDP #### [facility] [address] [place] [address] [place] [address] Rail Bender: Concepción De La Torre MD Alkaline Phos 116 U/L High 35-104 [facility] Comment on above: Performed By: #### C P, CDP #### [facility] [address] [place], [place] 6181783 Rail [employer]: Concepción De La Torre MD ALT [Catalytic activity/Vol] 10 U/L Normal 5-33 [facility] Comment on above: Performed By: #### C P, CDP #### [facility] [address] [place], [place] [phone] Rail B[employer]: Concepción De La Torre MD Anion gap [Moles/Vol] 11 mmol/L Normal 9-17 [facility] Comment on above: Performed By: #### C P, CDP #### [facility] [address] [place], [place] [phone] Rail Bender: Concepción De La Torre MD AST [Catalytic activity/Vol] 21 U/L Normal <32 [facility] Comment on above: Performed By: #### C P, CDP #### [facility] [address] [place], [place] 6172983 Rail [employer]ender: Concepción De La Torre MD Bilirubin [Mass/Vol] 0.4 mg/dL Normal 0.3-[facility].2 [facility] [facility] Comment on above: Performed By: #### C P, CDP #### [facility] [address] [place], [place] [id number] Rail Bender: Concepción De La Torre MD BUN/CRE Ratio 15 Normal 9-20 [facility] Comment on above: Performed By: #### C P, CDP #### [facility] [address] [place], [place] [id number] Rail Bender: Concepción De La Torre MD Calcium [Mass/Vol] 7.8 mg/dL Low 8.6-10.4 [facility] Comment on above: Performed By: #### C P, CDP #### [facility] [address] [place], [place] [id number] Rail Bender: Concepción De La Torre MD Chloride [Moles/Vol] 108 mmol/L High 98-107 [facility] Comment on above: Performed By: #### C P, CDP #### [facility] [address] [place], [place] [id number] Rail Bender: Concepción De La Torre MD CO2 [Moles/Vol] 24 mmol/L Normal 20-31 [facility] Comment on above: Performed By: #### C P, CDP #### [facility] [address] [place], [place] [id number] Rail Bender: Concepción De La Torre MD Creatinine [Mass/Vol] 0.8 mg/dL Normal 0.5-0.9 [facility] Comment on above: Performed By: #### C P, CDP #### [facility] [address] [place] [address] Rail Bender: Concepción De La Torre MD GFR/1.73 sq M.predicted among non-blacks MDRD (S/P/Bld) [Vol rate/Area] 73 mL/min/{1.73_m2} Normal >60 [facility] Comment on above: Result Comment: These results [...] Performed By: #### C P, CDP #### [facility] [address] [place], [place] [id number] Rail Bender: Concepción De La Torre MD Glucose [Mass/Vol] 123 mg/dL High 70-99 [facility] Comment on above: Performed By: #### C P, CDP #### [facility] [address] [place] [address] Rail Bender: Concepción De La Torre MD Potassium [Moles/Vol] 4.0 mmol/L Normal 3.7-5.3 [facility] Comment on above: Performed By: #### C P, CDP #### [facility] [address] [place] [address] Rail Bender: Concepción De La Torre MD Protein [Mass/Vol] 5.4 g/dL Low 6.4-8.3 [facility] Comment on above: Performed By: #### C P, CDP #### [facility] [address] [place] [address] Rail Bender: Concepción De La Torre MD Sodium [Moles/Vol] 143 mmol/L Normal 135-144 [facility] Comment on above: Performed By: #### C P, CDP #### [facility] [address] [place], [place] [phone] Rail Bender: Concepción De La Torre MD Urea nitrogen [Mass/Vol] 12 mg/dL Normal 8-23 [facility] Comment on above: Performed By: #### C P, CDP #### [facility] [address] [place] [address] Rail Bender: Concepción De La Torre MD Comprehensive Metabolic Pane [facility] 02-02-2024 Albumin [Mass/Vol] 2.7 g/dL Low 3.5 - 5.2 g/dL [facility] Albumin/Globulin [Mass ratio] 1.0 {ratio} 1.0 - 2.5 [facility] ALP [Catalytic activity/Vol] 116 U/L High 35 - 104 U/L [facility] ALT [Catalytic activity/Vol] 10 U/L 5 - 33 U/L [facility] Anion gap [Moles/Vol] 11 mmol/L 9 - 17 mmol/L [facility] AST [Catalytic activity/Vol] 21 U/L NINF - 32 U/L [facility] Bilirubin [Mass/Vol] 0.4 mg/dL 0.3 - 1 .2 mg/dL [facility] Calcium [Mass/Vol] 7.8 mg/dL Low 8.6 - 10. 4 mg/dL [facility] Chloride [Moles/Vol] 108 mmol/L High 98 - 10 7 mmol/L [facility] CO2 [Moles/Vol] 24 mmol/L 20 - 31 mmol/L [facility] Creatinine [Mass/Vol] 0.8 mg/dL 0.5 - 0.9 mg/dL [facility] Est, Glom Filt Rate 73 - PINF [facility] S [facility] Comment on above: These results are [...] 123 mg/dL High 70 - 99 mg/dL [facility] Interpretation and review of laboratory results Abnormal [facility] Potassium [Moles/Vol] 4.0 mmol/L 3.7 - 5.3 mmol/L [facility] Protein [Mass/Vol] 5.4 g/dL Low 6.4 - 8.3 g/dL [facility] Sodium [Moles/Vol] 143 mmol/L 135 - 144 mmol/L [facility] Urea nitrogen [Mass/Vol] 12 mg/dL 8 - 23 mg/dL [facility] Urea nitrogen/Creatinine [Mass ratio] 15 mg/mg 9 - [address] [facility] [address] HEAD WO CONTRASTon 2023 CT [...] PROVIDED HISTORY: SDH (subdural hematoma) ([facility]) TECHNOLOGIST PROVIDED HISTORY: F/U SDH FINDINGS: BRAIN/VENTRICLES: [...] Renny Rodriguez MD 01/27/24 Final result Normal [facility] CBC with Diffon 01-26-2024 Abs. Basophil <0.03 Normal 0.00-0.20 [facility] Comment on above: Performed By: #### C SCHUYLER CMPF #### [address] [place] [id number] Rail Bender: Concepción De La Torre MD Abs.Imm.Granulocyte 0.03 k/uL Normal 0.00-0.30 [facility] Comment on above: Performed By: #### C SCHUYLER CMPF #### [address] [place], [id number] Rail Bender: Concepción De La Torre MD Abs.Neutrophil (Seg) 2.15 k/uL Normal 1.50-8.10 [facility] Comment on above: Performed By: #### C SCHUYLER CMPF #### [address] [place], [id number] Rail Bender: Concepción De La Torre MD Basophils/100 WBC (Bld) 1 % Normal 0-2 [facility] Comment on above: Performed By: #### C SCHUYLER CMPF #### [address] [place] [address] Rail Bender: Concepción De La Torre MD Eosinophils (Bld) [#/Vol] 0.04 10*3/uL Normal 0.00-0.44 [facility] Comment on above: Performed By: #### C SCHUYLER CMPF #### [facility] [address] [place], [place] [phone] Rail Bender: Concepción De La Torre MD Eosinophils/100 WBC (Bld) 1 % Normal 1-4 [facility] Comment on above: Performed By: #### C DP, CMPF #### [address] [place], [place] 3653883 Rail Bender: Concepción De La Torre MD Erythrocyte distribution width (RBC) [Ratio] 16.3 % High 11.8-14.4 [facility] Comment on above: Performed By: #### C DP, CMPF #### [address] [place], [place] 9649083 Rail [employer]ender: Concepción De La Torre MD Hematocrit (Bld) [Volume fraction] 30.9 % Low 36.3-47.1 [facility] Comment on above: Performed By: #### C DP, CMPF #### [address] [place], [place] 2371783 Rail Bender: Concepción De La Torre MD Hemoglobin (Bld) [Mass/Vol] 9.7 g/dL Low 11.9-15.1 [facility] Comment on above: Performed By: #### C DP, CMPF #### [address] [place], [place] 7852583 Rail Bender: Concepción De La Torre MD Immature granulocytes/100 WBC (Bld) 1 % High 0 [facility] Comment on above: Performed By: #### C DP, CMPF #### [address] [place], [place] 1991283 Rail Bender: Concepción De La Torre MD Lymphocytes (Bld) [#/Vol] 0.79 10*3/uL Low 1.10-3.70 [facility] Comment on above: Performed By: #### C DP, CMPF #### [address] [place] [address] Rail Bender: Concepción De La Torre MD Lymphocytes/100 WBC (Bld) 22 % Low 24-43 [facility] Comment on above: Performed By: #### C DP, CMPF #### [facility] [address] [place] [address] Rail Bender: Concepción De La Torre MD MCH (RBC) [Entitic mass] 31.4 pg Normal 25.2-33.5 [facility] Comment on above: Performed By: #### C DP, CMPF #### [facility] [address] [place], [id number] Rail Bender: Concepción De La Torre MD MCHC (RBC) [Mass/Vol] 31.4 g/dL Normal 28.4-34.8 [facility] Comment on above: Performed By: #### C DP, CMPF #### [address] [place], [id number] Rail Bender: Concepción De La Torre MD MCV (RBC) [Entitic vol] 100.0 fL Normal 82.6-102.9 [facility] Comment on above: Performed By: #### C DP, CMPF #### [address] [place], [place] 1405083 Rail Bender: Concepción De La Torre MD Monocytes (Bld) [#/Vol] 0.49 10*3/uL Normal 0.10-1.20 [facility] Comment on above: Performed By: #### C DP, CMPF #### [facility] [address] [place] [address] Rail Bender: Concepción De La Torre MD Monocytes/100 WBC (Bld) 14 % High 3-12 [facility] Comment on above: Performed By: #### C DP, CMPF #### [facility] [address] [place], [place] [phone] Rail Bender: Concepción De La Torre MD Neutrophil (Seg) 61 % Normal 36-65 [facility] Comment on above: Performed By: #### C DP, CMPF #### [facility] [address] [place] [address] Rail Bender: Concepción De La Torre MD NRBC Automated 0.0 per 100 WBC Normal 0.0 [facility] Comment on above: Performed By: #### C DP, CMPF #### [facility] [address] [place] [address] Rail Bender: Concepción De La Torre MD Platelet mean volume (Bld) [Entitic vol] 11.5 fL Normal 8.1-13.5 [facility] Comment on above: Performed By: #### C DP, CMPF #### [address] [place] [address] Rail Bender: Concepción De La Torre MD Platelets (Bld) [#/Vol] 271 10*3/uL Normal 138-453 [facility] Comment on above: Performed By: #### C DP, CMPF #### [address] [place], [place] 3337683 Rail Bender: Concepción De La Torre MD RBC (Bld) [#/Vol] 3.09 10*6/uL Low 3.95-5.11 [facility] Comment on above: Performed By: #### C DP, CMPF #### [address] [place] [address] Rail Bender: Concepción De La Torre MD WBC (Bld) [#/Vol] 3.5 10*3/uL Normal 3.5-11.3 [facility] Comment on above: Performed By: #### C DP, CMPF #### [facility] [address] [place] [address] Rail Bender: Concepción De La Torre MD Comp Metabol,Fastingon 01-25 Albumin [Mass/Vol] 2.6 g/dL Low 3.5-5.2 [facility] Comment on above: Performed By: #### C DP, CMPF #### [facility] [address] [place], [place] 2524583 Rail Bender: Concepción De La Torre MD Albumin/Glob Ratio 1.1 Normal 1.0-2.5 [facility] Comment on above: Performed By: #### C DP, CMPF #### [facility] [address] [place], [place] 2136583 Rail Bender: Concepción De La Torre MD Alkaline Phos 92 U/L Normal 35-104 [facility] Comment on above: Performed By: #### C DP, CMPF #### [facility] [address] [place], [place] [phone] Rail Bender: Concepción De La Torre MD ALT [Catalytic activity/Vol] 18 U/L Normal 5-33 [facility] Comment on above: Performed By: #### C DP, CMPF #### [facility] [address] [place] [address] Dr. [place], [place] 9650183 Rail Bender: Concepción De La Torre MD Anion gap [Moles/Vol] 8 mmol/L Low 9-17 [facility] Comment on above: Performed By: #### C DP, CMPF #### [facility] [address] [place] [address] Dr. [place], [place] 8392283 Rail Bender: Concepción De La Torre MD AST [Catalytic activity/Vol] 23 U/L Normal <32 [facility] Comment on above: Performed By: #### C DP, CMPF #### [facility] [address] [place] [address] Dr. [place], [place] [id number] Rail Bender: Concepción De La Torre MD Bilirubin [Mass/Vol] 0.5 mg/dL Normal 0.3-1.2 [facility] Comment on above: Performed By: #### C DP, CMPF #### [facility] [address] [place] [address] [place] [address] Rail Bender: Concepción De La Torre MD BUN/CRE Ratio 19 Normal 9-20 [facility] Comment on above: Performed By: #### C DP, CMPF #### [facility] [address] [place], [place] 2262083 Rail Bender: Concepción De La Torre MD Calcium [Mass/Vol] 7.9 mg/dL Low 8.6-10.4 [facility] Comment on above: Performed By: #### C DP, CMPF #### [facility] [address] [place], [place] [phone] Rail Bender: Concepción De La Torre MD Chloride [Moles/Vol] 105 mmol/L Normal 98-107 [facility] Comment on above: Performed By: #### C DP, CMPF #### [facility] [address] [place], [place] 2541683 Rail Bender: Concepción De La Torre MD CO2 [Moles/Vol] 27 mmol/L Normal 20-31 [facility] Comment on above: Performed By: #### C DP, CMPF #### [facility] [address] [place], [place] 0560783 Rail Bender: Concepción De La Torre MD Creatinine [Mass/Vol] 0.8 mg/dL Normal 0.5-0.9 [facility] Comment on above: Performed By: #### C DP, CMPF #### [facility] [address] [place] [address] Rail Bender: Concepción De La Torre MD GFR/1.73 sq M.predicted among non-blacks MDRD (S/P/Bld) [Vol rate/Area] 73 mL/min/{1.73_m2} Normal >60 [facility] Comment on above: Result Comment: These results [...] Performed By: #### C SCHUYLER, CMPF #### [facility] [address] [place] [address] Dr. [place], [place] 1065983 Rail Bender: Concepción De La Torre MD Glucose [Mass/Vol] 90 mg/dL Normal 70-99 [facility] Comment on above: Performed By: #### C DP, CMPF #### [facility] [address] [place] [address] Rail Bender: Concepción De La Torre MD Potassium [Moles/Vol] 4.1 mmol/L Normal 3.7-5.3 [facility] Comment on above: Performed By: #### C SCHUYLER, CMPF #### [address] [place] [address] Rail Bender: Concepción De La Torre MD Protein [Mass/Vol] 5.0 g/dL Low 6.4-8.3 [facility] Comment on above: Performed By: #### C SCHUYLER, CMPF #### [address] [place] [address] Rail Bender: Concepción De La Torre MD Sodium [Moles/Vol] 140 mmol/L Normal 135-144 [facility] Comment on above: Performed By: #### C DP, CMPF #### [facility] [address] [place] [address] [place] [address] Rail Bender: Concepción De La Torre MD Urea nitrogen [Mass/Vol] 15 mg/dL Normal 8-23 [facility] Comment on above: Performed By: #### C DP, CMPF #### [address] [place], [place] 5125683 Rail Bender: Concepción De La Torre MD CBC with Diffon 01-19-2024 Abs. Basophil 0.03 k/uL Normal 0.00-0.20 [facility] Comment on above: Performed By: #### C DP, CP #### [address] [place] [address] Rail Bender: Concepción De La Torre MD Abs.Imm.Granulocyte 0.05 k/uL Normal 0.00-0.30 [facility] Comment on above: Performed By: #### C DP, CP #### [address] [place] [address] Rail Bender: Concepción De La Torre MD Abs.Neutrophil (Seg) 5.33 k/uL Normal 1.50-8.10 [facility] Comment on above: Performed By: #### C DP, CP #### [address] [place] [address] Rail Bender: Concepción De La Torre MD Basophils/100 WBC (Bld) 0 % Normal 0-2 [facility] Comment on above: Performed By: #### C DP, CP #### [address] [place] [address] Rail Bender: Concepción De La Torre MD Eosinophils (Bld) [#/Vol] 0.07 10*3/uL Normal 0.00-0.44 [facility] Comment on above: Performed By: #### C DP, CP #### [address] [place], [place] [address] Rail Bender: Concepción De La Torre MD Eosinophils/100 WBC (Bld) 1 % Normal 1-4 [facility] Comment on above: Performed By: #### C DP, CP #### [address] [place] [address] Rail Bender: Concepción De La Torre MD Erythrocyte distribution width (RBC) [Ratio] 16.6 % High 11.8-14.4 [facility] Comment on above: Performed By: #### C DP, CP #### [place] [address] [place], [place] 5731583 Rail Bender: Concepción De La Torre MD Hematocrit (Bld) [Volume fraction] 30.7 % Low 36.3-47.1 [facility] Comment on above: Performed By: #### C DP, CP #### [facility] [address] [place], [id number] Rail Bender: Concepción De La Torre MD Hemoglobin (Bld) [Mass/Vol] 9.7 g/dL Low 11.9-15.1 [facility] Comment on above: Performed By: #### C DP, CP #### [address] [place], [id number] Rail Bender: Concepción De La Torre MD Immature granulocytes/100 WBC (Bld) 1 % High 0 [facility] Comment on above: Performed By: #### C DP, CP #### [facility] [address] [place] [address] Dr. [place], [id number] Rail Bender: Concepción De La Torre MD Lymphocytes (Bld) [#/Vol] 1.11 10*3/uL Normal 1.10-3.70 [facility] Comment on above: Performed By: #### C DP, CP #### [address] [place], [id number] Rail Bender: Concepicón De La Torre MD Lymphocytes/100 WBC (Bld) 15 % Low 24-43 [facility] Comment on above: Performed By: #### C DP, CP #### [facility] [address] [place], [id number] Rail Bender: Concepción De La Torre MD MCH (RBC) [Entitic mass] 31.1 pg Normal 25.2-33.5 [facility] Comment on above: Performed By: #### C DP, CP #### [facility] [address] [place] [address] Dr. [place], [id number] Rail Bender: Concepción De La Torre MD MCHC (RBC) [Mass/Vol] 31.6 g/dL Normal 28.4-34.8 [facility] Comment on above: Performed By: #### C DP, CP #### [facility] [address] [place], [place] 3447083 Rail Bender: Concepción De La Torre MD MCV (RBC) [Entitic vol] 98.4 fL Normal 82.6-102.9 [facility] Comment on above: Performed By: #### C DP, CP #### [address] [place] [address] Rail Bender: Concepción De La Torre MD Monocytes (Bld) [#/Vol] 0.95 10*3/uL Normal 0.10-1.20 [facility] Comment on above: Performed By: #### C DP, CP #### [address] [place] [address] Rail Bender: Concepción De La Torre MD Monocytes/100 WBC (Bld) 13 % High 3-12 [facility] Comment on above: Performed By: #### C DP, CP #### [address] [place] [address] Rail Bender: Concepción De La Torre MD Neutrophil (Seg) 71 % High 36-65 [facility] Comment on above: Performed By: #### C DP, CP #### [address] [place], [place] 1749983 Rail Bender: Concepción De La Torre MD NRBC Automated 0.0 per 100 WBC Normal 0.0 [facility] Comment on above: Performed By: #### C DP, CP #### [address] [place], [place] 4149383 Rail Bender: Concepción De La Torre MD Platelet mean volume (Bld) [Entitic vol] 11.9 fL Normal 8.1-13.5 [facility] Comment on above: Performed By: #### C DP, CP #### [facility] [address] [place], [place] 5826083 Rail Bender: Concepción De La Torre MD Platelets (Bld) [#/Vol] 249 10*3/uL Normal 138-453 [facility] Comment on above: Performed By: #### C DP, CP #### [facility] [address] [place] [address] Rail Bender: Concepción De La Torre MD RBC (Bld) [#/Vol] 3.12 10*6/uL Low 3.95-5.11 [facility] Comment on above: Performed By: #### C DP, CP #### [facility] [address] [place], [place] 3472183 Rail Bender: Concepción De La Torre MD WBC (Bld) [#/Vol] 7.5 10*3/uL Normal 3.5-11.3 [facility] Comment on above: Performed By: #### C DP, CP #### [facility] [address] [place], [place] 5055483 Rail Bender: Concepción De La Torre MD Comp Metabolic Profon 2023 Albumin [Mass/Vol] 2.6 g/dL Low 3.5-5.2 [facility] Comment on above: Performed By: #### C DP, CP #### [facility] [address] [place], [place] 9821183 Rail Bender: Concepción De La Torre MD Albumin/Glob Ratio 1.2 Normal 1.0-2.5 [facility] Comment on above: Performed By: #### C DP, CP #### [facility] [address] [place] [address] Rail Bender: Concepción De La Torre MD Alkaline Phos 78 U/L Normal 35-104 [facility] Comment on above: Performed By: #### C DP, CP #### [facility] [address] [place], [place] 0454283 Rail Bender: Concepción De La Torre MD ALT [Catalytic activity/Vol] 42 U/L High 5-33 [facility] Comment on above: Performed By: #### C DP, CP #### [facility] [address] [place], [place] 5439983 Rail Bender: Concepción De La Torre MD Anion gap [Moles/Vol] 5 mmol/L Low 9-17 [facility] Comment on above: Performed By: #### C DP, CP #### [facility] [address] [place], [place] 8407183 Rail Bender: Concepción De La Torre MD AST [Catalytic activity/Vol] 43 U/L High <32 [facility] Comment on above: Performed By: #### C DP, CP #### [facility] [address] [place], [place] [phone] Rail Bender: Concepción De La oTrre MD Bilirubin [Mass/Vol] 1.2 mg/dL Normal 0.3-1.2 [facility] Comment on above: Performed By: #### C DP, CP #### [facility] [address] [place], [place] 7646283 Rail Bender: Concepción De La Torre MD BUN/CRE Ratio 27 High 9-20 [facility] Comment on above: Performed By: #### C DP, CP #### [facility] [address] [place], [place] 8229883 Rail Bender: Concepción De La oTrre MD Calcium [Mass/Vol] 7.6 mg/dL Low 8.6-10.4 [facility] Comment on above: Performed By: #### C DP, CP #### [facility] [address] [place], [place] [phone] Rail Bender: Concepción De La Torre MD Chloride [Moles/Vol] 100 mmol/L Normal 98-107 [facility] Comment on above: Performed By: #### C DP, CP #### [facility] [address] [place] [address] Rail Bender: Concepción De La Torre MD CO2 [Moles/Vol] 30 mmol/L Normal 20-31 [facility] Comment on above: Performed By: #### C DP, CP #### [facility] [address] [place] [address] Rail Bender: Concepción De La Torre MD Creatinine [Mass/Vol] 0.7 mg/dL Normal 0.5-0.9 [facility] Comment on above: Performed By: #### C DP, CP #### [facility] [address] [place] [address] Rail Bender: Concepción De La Torre MD GFR/1.73 sq M.predicted among non-blacks MDRD (S/P/Bld) [Vol rate/Area] 85 mL/min/{1.73_m2} Normal >60 [facility] Comment on above: Result Comment: These results [...] Performed By: #### C DP, CP #### [facility] [address] [place] [address] Rail Bender: Concepción De La Torre MD Glucose [Mass/Vol] 98 mg/dL Normal 70-99 [facility] Comment on above: Performed By: #### C DP, CP #### [facility] [address] [place] [address] Rail Bender: Concepción De La Torre MD Potassium [Moles/Vol] 3.8 mmol/L Normal 3.7-5.3 [facility] Comment on above: Performed By: #### C DP, CP #### [facility] [address] [place] [address] Rail Bender: Concepción De La Torre MD Protein [Mass/Vol] 4.8 g/dL Low 6.4-8.3 [facility] Comment on above: Performed By: #### C DP, CP #### [facility] [address] [place] [address] Rail Bender: Concepción De La Torre MD Sodium [Moles/Vol] 135 mmol/L Normal 135-144 [facility] Comment on above: Performed By: #### C DP, CP #### [facility] [address] [place] [address] Rail Bender: Concepción De La Torre MD Urea nitrogen [Mass/Vol] 19 mg/dL Normal 8-23 [facility] Comment on above: Performed By: #### C DP, CP #### [facility] [address] [place] [address] Rail Bender: Concepción De La Torre MD CBC with Auto Differentialon 01-15-2024 Basophils (Bld) [#/Vol] 0.03 10*3/uL [facility] Basophils/100 WBC (Bld) 0 % 0 - 2 % [facility] Eosinophils (Bld) [#/Vol] 0.05 10*3/uL [facility] Eosinophils/100 WBC (Bld) 0 % Low 1 - 4 % [facility] Erythrocyte distribution width (RBC) [Ratio] 15.9 % High 11.8 - 14.4 % [facility] Hematocrit (Bld) [Volume fraction] 31.7 % Low 36.3 - 47.1 % [facility] Hemoglobin (Bld) [Mass/Vol] 10.3 g/dL Low 11.9 - 15.1 g/dL [facility] Immature granulocytes (Bld) [#/Vol] 0.09 10*3/uL [facility] [facility] Immature granulocytes/100 WBC (Bld) 1 % High 0 [facility] Interpretation and review of laboratory results Abnormal [facility] Lymphocytes/100 WBC (Bld) 7 % Low 24 - 43 % [facility] Lymphocytes/100 WBC (Bld) 0.83 % Low [facility] MCH (RBC) [Entitic mass] 31.1 pg 25.2 - 33.5 pg [facility] MCHC (RBC) [Mass/Vol] 32.5 g/dL 28.4 - 34.8 g/dL [facility] MCV (RBC) [Entitic vol] 95.8 fL 82.6 - 102.9 fL [facility] Monocytes/100 WBC (Bld) 11 % 3 - 12 % [facility] Monocytes/100 WBC (Bld) 1.30 % High [facility] Neutrophils/100 WBC (Bld) 81 % High 36 - 65 % [facility] Nucleated RBC/100 WBC (Bld) [Ratio] 0.0 % 0.0 per 100 WBC [facility] Platelet mean volume (Bld) [Entitic vol] 11.8 fL 8.1 - 13.5 fL [facility] Platelets (Bld) [#/Vol] 176 10*3/uL [facility] RBC (Bld) [#/Vol] 3.31 10*6/uL Low 3.95 - 5.1 1 m/uL [facility] Segmented neutrophils/100 WBC (Bld) 9.73 % High [facility] WBC other (Bld) [#/Vol] 12.0 High [facility] CBC with Diffon 01-15-2024 Abs. Basophil 0.03 k/uL Normal 0.00-0.20 [facility] Comment on above: Performed By: #### C SCHUYLER, CP #### [facility] [address] [place] [address] Rail Bender: Concepción De La Torre MD Abs.Imm.Granulocyte 0.09 k/uL Normal 0.00-0.30 [facility] Comment on above: Performed By: #### C SCHUYLER, CP #### [facility] [address] [place], [place] [phone] Rail Bender: Concepción De La Torre MD Abs.Neutrophil (Seg) 9.73 k/uL High 1.50-8.10 [facility] Comment on above: Performed By: #### C DP, CP #### [address] [place], [id number] Rail Bender: Concepción De La Torre MD Basophils/100 WBC (Bld) 0 % Normal 0-2 [facility] Comment on above: Performed By: #### C DP, CP #### [address] [place] [address] [employer]: Concepción De La Torre MD Eosinophils (Bld) [#/Vol] 0.05 10*3/uL Normal 0.00-0.44 [facility] Comment on above: Performed By: #### C DP, CP #### [address] [place], [id number] Rail Bender: Concepción De La Torre MD Eosinophils/100 WBC (Bld) 0 % Low 1-4 [facility] Comment on above: Performed By: #### C DP, CP #### [address] [place], [id number] Rail Bender: Concepción De La Torre MD Erythrocyte distribution width (RBC) [Ratio] 15.9 % High 11.8-14.4 [facility] Comment on above: Performed By: #### C DP, CP #### [address] [place], [id number] Rail Bender: Concepción De La Torre MD Hematocrit (Bld) [Volume fraction] 31.7 % Low 36.3-47.1 [facility] Comment on above: Performed By: #### C DP, CP #### [address] [place], [id number] Rail Bender: Concepción De La Torre MD Hemoglobin (Bld) [Mass/Vol] 10.3 g/dL Low 11.9-15.1 [facility] Comment on above: Performed By: #### C DP, CP #### [address] [place] [address] Rail [employer]ender: Concepción De La Torre MD Immature granulocytes/100 WBC (Bld) 1 % High 0 [facility] Comment on above: Performed By: #### C DP, CP #### [facility] [address] [place] [address] Dr. [place], [place] [id number] Rail [employer]ender: Concepción De La Torre MD Lymphocytes (Bld) [#/Vol] 0.83 10*3/uL Low 1.10-3.70 [facility] Comment on above: Performed By: #### C DP, CP #### [address] [place], [id number] Rail Bender: Concepción De La Torre MD Lymphocytes/100 WBC (Bld) 7 % Low 24-43 [facility] Comment on above: Performed By: #### C DP, CP #### [address] [place], [place] [id number] Rail [employer]: Concepción De La Torre MD MCH (RBC) [Entitic mass] 31.1 pg Normal 25.2-33.5 [facility] Comment on above: Performed By: #### C DP, CP #### [address] [place], [place] 6[address]83 Rail [employer]: Concepción De La Torre MD MCHC (RBC) [Mass/Vol] 32.5 g/dL Normal 28.4-34.8 [facility] Comment on above: Performed By: #### C DP, CP #### [address] [place] [address] Rail Bender: Concepción De La Torre MD MCV (RBC) [Entitic vol] 95.8 fL Normal 82.6-102.9 [facility] Comment on above: Performed By: #### C DP, CP #### [facility] [address] [place], [place] [phone] Rail Bender: Concepción De La Torre MD Monocytes (Bld) [#/Vol] 1.30 10*3/uL High 0.10-1.20 [facility] Comment on above: Performed By: #### C DP, CP #### [facility] [address] [place], [place] [phone] Rail [employer]ender: Concepción De La Torre MD Monocytes/100 WBC (Bld) 11 % Normal 3-12 [facility] Comment on above: Performed By: #### C DP, CP #### [address] [place], [id number] Rail Bender: Concepción De La Torre MD Neutrophil (Seg) 81 % High 36-65 [facility] Comment on above: Performed By: #### C DP, CP #### [address] [place], [place] [phone] Rail Bender: Concepción De La Torre MD NRBC Automated 0.0 per 100 WBC Normal 0.0 [facility] Comment on above: Performed By: #### C DP, CP #### [address] [place], [id number] Rail Bender: Concepción De La Torre MD Platelet mean volume (Bld) [Entitic vol] 11.8 fL Normal 8.1-13.5 [facility] Comment on above: Performed By: #### C DP, CP #### [address] [place], [place] [id number] Rail [employer]: Concepción De La Torre MD Platelets (Bld) [#/Vol] 176 10*3/uL Normal 138-453 [facility] Comment on above: Performed By: #### C DP, CP #### [address] [place], [place] 4753483 Rail Bender: Concepción De La Trore MD RBC (Bld) [#/Vol] 3.31 10*6/uL Low 3.95-5.11 [facility] Comment on above: Performed By: #### C DP, CP #### [facility] [address] [place], [place] [phone] Rail [employer]ender: Concepción De La Torre MD WBC (Bld) [#/Vol] 12.0 10*3/uL High 3.5-11.3 [facility] Comment on above: Performed By: #### C DP, CP #### [address] [place] [address] Rail Bender: Concepción De La Torre MD Comp Metabolic Profon 2023 Albumin [Mass/Vol] 2.8 g/dL Low 3.5-5.2 [facility] Comment on above: Performed By: #### C DP, CP #### [facility] [address] [place] [address] Dr. [place], [place] [phone] Rail [employer]ender: Concepción De La Torre MD Albumin/Glob Ratio 1.2 Normal 1.0-2.5 [facility] Comment on above: Performed By: #### C DP, CP #### [address] [place], [place] 9170483 Rail [employer]: Concepción De La Torre MD Alkaline Phos 74 U/L Normal 35-104 [facility] Comment on above: Performed By: #### C DP, CP #### [facility] [address] [place], [place] [phone] Rail Bender: Concepción De La Torre MD ALT [Catalytic activity/Vol] 22 U/L Normal 5-33 [facility] Comment on above: Performed By: #### C DP, CP #### [facility] [address] [place], [place] [phone] Rail Bender: Concepción De La Torre MD Anion gap [Moles/Vol] 10 mmol/L Normal 9-17 [facility] Comment on above: Performed By: #### C DP, CP #### [facility] [address] [place], [place] 4843683 Rail [employer]ender: Concepción De La Torre MD AST [Catalytic activity/Vol] 36 U/L High <32 [facility] Comment on above: Performed By: #### C DP, CP #### [facility] [address] [place], [place] 5285383 Rail Bender: Concepción De La Torre MD Bilirubin [Mass/Vol] 1.3 mg/dL High 0.3-1.2 [facility] Comment on above: Performed By: #### C DP, CP #### [facility] [address] [place], [place] [phone] Rail Bender: Concepción De La Torre MD BUN/CRE Ratio 34 High 9-20 [facility] Comment on above: Performed By: #### C DP, CP #### [address] [place], [place] 0782283 Rail [employer]: Concepción De La Torre MD Calcium [Mass/Vol] 8.2 mg/dL Low 8.6-10.4 [facility] Comment on above: Performed By: #### C DP, CP #### [facility] [address] [place], [place] [phone] Rail Bender: Concepción De La Torre MD Chloride [Moles/Vol] 101 mmol/L Normal 98-107 [facility] Comment on above: Performed By: #### C DP, CP #### [facility] [address] [place] [address] Rail Bender: Concepción De La Torre MD CO2 [Moles/Vol] 26 mmol/L Normal 20-31 [facility] Comment on above: Performed By: #### C DP, CP #### [facility] [address] [place] [address] [place] [address] [employer]: Concepción De La Torre MD Creatinine [Mass/Vol] 0.8 mg/dL Normal 0.5-0.9 [facility] Comment on above: Performed By: #### C DP, CP #### [address] [place] [address] Rail [employer]: Concepción De La Torre MD GFR/1.73 sq M.predicted among non-blacks MDRD (S/P/Bld) [Vol rate/Area] 73 mL/min/{1.73_m2} Normal >60 [facility] Comment on above: Result Comment: These results [...] Performed By: #### C DP, CP #### [address] [place] [address] [employer]: Concepción De La Torre MD Glucose [Mass/Vol] 101 mg/dL High 70-99 [facility] Comment on above: Performed By: #### C DP, CP #### [address] [place] [address] [employer]ender: Concepción De La Torre MD Potassium [Moles/Vol] 4.6 mmol/L Normal 3.7-5.3 [facility] Comment on above: Performed By: #### C DP, CP #### [address] [place] [address] Rail Bender: Concepción De La Torre MD Protein [Mass/Vol] 5.2 g/dL Low 6.4-8.3 [facility] Comment on above: Performed By: #### C DP, CP #### [facility] [address] [place], [place] 052[address]83 Rail [employer]ender: Concepción De La Torre MD Sodium [Moles/Vol] 137 mmol/L Normal 135-144 [facility] Comment on above: Performed By: #### C DP, CP #### [facility] [address] [place], [place] 8709083 Rail [employer]: Concecpión De La Torre MD Urea nitrogen [Mass/Vol] 27 mg/dL High 8-23 [facility] Comment on above: Performed By: #### C DP, CP #### [facility] [address] [place] [address] Rail Bender: Concepción De La Torre MD Comprehensive Metabolic Pane [facility] 01-15-2024 Albumin [Mass/Vol] 2.8 g/dL Low 3.5 - 5.2 g/dL [facility] Albumin/Globulin [Mass ratio] 1.2 {ratio} 1.0 - 2.5 [facility] ALP [Catalytic activity/Vol] 74 U/L 35 - 104 U/L [facility] ALT [Catalytic activity/Vol] 22 U/L 5 - 33 U/L [facility] Anion gap [Moles/Vol] 10 mmol/L 9 - 17 mmol/L [facility] AST [Catalytic activity/Vol] 36 U/L High NINF - 32 U/L [facility] Bilirubin [Mass/Vol] 1.3 mg/dL High 0.3 - 1 .2 mg/dL [facility] Calcium [Mass/Vol] 8.2 mg/dL Low 8.6 - 10. 4 mg/dL [facility] Chloride [Moles/Vol] 101 mmol/L 98 - 10 7 mmol/L [facility] CO2 [Moles/Vol] 26 mmol/L 20 - 31 mmol/L [facility] Creatinine [Mass/Vol] 0.8 mg/dL 0.5 - 0.9 mg/dL [facility] Est, Glom Filt Rate 73 - PINF [facility] Comment on above: These results are [...] 101 mg/dL High 70 - 99 mg/dL [facility] Interpretation and review of laboratory results Abnormal [facility] Potassium [Moles/Vol] 4.6 mmol/L 3.7 - 5.3 mmol/L [facility] Protein [Mass/Vol] 5.2 g/dL Low 6.4 - 8.3 g/dL [facility] Sodium [Moles/Vol] 137 mmol/L 135 - 144 mmol/L [facility] Urea nitrogen [Mass/Vol] 27 mg/dL High 8 - 23 mg/dL [facility] Urea nitrogen/Creatinine [Mass ratio] 34 mg/mg High 9 - 20 [facility] PTon 01-13-2024 INR Coag (PPP) [Relative time] 1.3 {INR} Normal [facility] Comment on above: Result Comment: Therapeutic Range: Moderate Anticoagulant Intensity: INR = 2.0-3.0 High Anticoagulant Intensity: INR = 2.5-3.5 Performed By: #### P T ####[id number] [place], [place] [id number] Lab Director: Sarath Olivera MD PT Coag (PPP) [Time] 15.6 s High 11.7-14.9 [facility] Comment on above: Performed By: #### P T ####[employer] [id number] [place], [place] [address] Lab Director: Sarath Olivera MD Basic Metab w/rfx MGon 01-11 Anion gap [Moles/Vol] 9 mmol/L Normal 9-16 [facility] Comment on above: Performed By: #### B C #### [address] [address] [employer]ender: Sarath Olivera MD Calcium [Mass/Vol] 8.3 mg/dL Low 8.6-10.4 [facility] Comment on above: Performed By: #### B C #### [address] [address] Rail [employer]: Sarath Olivera MD Chloride [Moles/Vol] 103 mmol/L Normal 98-107 [facility] Comment on above: Performed By: #### B C #### [address] [address] [employer]ender: Sarath Olivera MD CO2 [Moles/Vol] 25 mmol/L Normal 20-31 [facility] Comment on above: Performed By: #### B C #### [address] [address] [employer]: Sarath Olivera MD Creatinine [Mass/Vol] 0.8 mg/dL Normal 0.50-0.90 [facility] Comment on above: Performed By: #### B C #### [address] [address] Rail [employer]: Sarath Olivera MD GFR/1.73 sq M.predicted among non-blacks MDRD (S/P/Bld) [Vol rate/Area] 78 mL/min/{1.73_m2} Normal >60 [facility] Comment on above: Result Comment: These [...] secretion. Performed By: #### B C #### [address] [address] Rail [employer]: Sarath Olivera MD Glucose [Mass/Vol] 92 mg/dL Normal 74-99 [facility] Comment on above: Performed By: #### B C #### [address] [address] [employer]ender: Sarath Olivera MD Potassium [Moles/Vol] 4.5 mmol/L Normal 3.7-5.3 [facility] Comment on above: Performed By: #### B C #### [address] [address] Rail [employer]: Sarath Olivera MD Sodium [Moles/Vol] 137 mmol/L Normal 136-145 [facility] Comment on above: Performed By: #### B C #### [address] [address] Rail Bender: Sarath Olivera MD Urea nitrogen [Mass/Vol] 28 mg/dL High 8-23 [facility] Comment on above: Performed By: #### B C #### [address] [address] Rail [employer]ender: Sarath Olivera MD CBC with Diffon 01-12-2024 Abs. Basophil 0.03 k/uL Normal 0.00-0.20 [facility] Comment on above: Performed By: #### B C #### [address] [address] Rail [employer]ender: Sarath Olivera MD Abs.Imm.Granulocyte 0.24 k/uL Normal 0.00-0.30 [facility] Comment on above: Performed By: #### B C #### [address] [address] Rail [employer]: Sarath Olivera MD Abs.Neutrophil (Seg) 6.54 k/uL Normal 1.50-8.10 [facility] Comment on above: Performed By: #### B C #### [address] [address] Rail [employer]: Sarath Olivera MD Basophils/100 WBC (Bld) 0 % Normal 0-2 [facility] Comment on above: Performed By: #### B C #### [address] [address] Rail [employer]: Sarath Olivera MD Eosinophils (Bld) [#/Vol] 0.19 10*3/uL Normal 0.00-0.44 [facility] Comment on above: Performed By: #### B C #### [address] [address] Rail [employer]: Sarath Olivera MD Eosinophils/100 WBC (Bld) 2 % Normal 1-4 [facility] Comment on above: Performed By: #### B C #### [address] [address] Rail [employer]: Sarath Olivera MD Erythrocyte distribution width (RBC) [Ratio] 15.8 % High 11.8-14.4 [facility] Comment on above: Performed By: #### B C #### [address] [address] [employer]: Sarath Olivera MD Hematocrit (Bld) [Volume fraction] 29.8 % Low 36.3-47.1 [facility] Comment on above: Performed By: #### B C #### [address] [address] [employer]: Sarath Olivera MD Hemoglobin (Bld) [Mass/Vol] 9.3 g/dL Low 11.9-15.1 [facility] Comment on above: Performed By: #### B C #### [address] [address] Rail Bender: Sarath Olivera MD Immature granulocytes/100 WBC (Bld) 3 % High 0 [facility] Comment on above: Performed By: #### B C #### [address] [address] Rail [employer]ender: Sarath Olivera MD Lymphocytes (Bld) [#/Vol] 1.23 10*3/uL Normal 1.10-3.70 [facility] Comment on above: Performed By: #### B C #### [address] [address] [employer]: Sarath Olivera MD Lymphocytes/100 WBC (Bld) 13 % Low 24-43 [facility] Comment on above: Performed By: #### B C #### [place] [address] [employer]: Sarath Olivera MD MCH (RBC) [Entitic mass] 30.9 pg Normal 25.2-33.5 [facility] Comment on above: Performed By: #### B C #### [address] [address] Rail [employer]: Sarath Olivera MD MCHC (RBC) [Mass/Vol] 31.2 g/dL Normal 28.4-34.8 [facility] Comment on above: Performed By: #### B C #### [place] [address] [employer]: Sarath Olivera MD MCV (RBC) [Entitic vol] 99.0 fL Normal 82.6-102.9 [facility] Comment on above: Performed By: #### B C #### [place] [address] [employer]: Sarath Olivera MD Monocytes (Bld) [#/Vol] 1.19 10*3/uL Normal 0.10-1.20 [facility] Comment on above: Performed By: #### B C #### [address] [address] Rail [employer]: Sarath Olivera MD Monocytes/100 WBC (Bld) 13 % High 3-12 [facility] Comment on above: Performed By: #### B C #### [address] [address] Rail [employer]ender: Sarath Olivera MD Neutrophil (Seg) 69 % High 36-65 [facility] Comment on above: Performed By: #### B C #### [address] [address] Rail Bender: Sarath Olivera MD NRBC Automated 0.5 per 100 WBC High 0.0 [facility] Comment on above: Performed By: #### B C #### [address] [address] Rail [employer]ender: Sarath Olivera MD Platelet mean volume (Bld) [Entitic vol] 12.4 fL Normal 8.1-13.5 [facility] Comment on above: Performed By: #### B C #### [address] [address] Rail [employer]: Sarath Olivera MD Platelets (Bld) [#/Vol] 140 10*3/uL Normal 138-453 [facility] Comment on above: Performed By: #### B C #### [address] [address] [employer]: Sarath Olivera MD RBC (Bld) [#/Vol] 3.01 10*6/uL Low 3.95-5.11 [facility] Comment on above: Performed By: #### B C #### [address] [address] Rail [employer]: Sarath Olivera MD RBC morphology finding Nom (Bld) ANISOCYTOSIS PRESENT Normal [facility] Comment on above: Performed By: #### B C #### [address] [address] Rail [employer]ender: Sarath Olivera MD WBC (Bld) [#/Vol] 9.4 10*3/uL Normal 3.5-11.3 [facility] Comment on above: Performed By: #### B C #### [address] [address] Rail [employer]: Sarath Olivera MD PTon 01-12-2024 INR Coag (PPP) [Relative time] 1.2 {INR} Normal [facility] Comment on above: Result Comment: Therapeutic Range: Moderate Anticoagulant Intensity: INR = 2.0-3.0 High Anticoagulant Intensity: INR = 2.5-3.5 Performed By: #### B C #### [address] [address] Rail [employer]: Sarath Olivera MD PT Coag (PPP) [Time] 14.6 s Normal 11.7-14.9 [facility] Comment on above: Performed By: #### B C #### [address] [address] Rail [employer]: Sarath Olivera MD XR CHEST PORTABLEon 01-12-20 [...] Deon Webb MD 01/12/24 Final result Normal [facility] Basic Metab w/rfx MGon 01-10 Anion gap [Moles/Vol] 7 mmol/L Low 9-16 [facility] Comment on above: Performed By: #### L ACTIC ALCB #### [address] [address] Rail [employer]: Sarath Olivera MD Calcium [Mass/Vol] 8.0 mg/dL Low 8.6-10.4 [facility] Comment on above: Performed By: #### L ACTIC ALCB #### [facility] [employer] [address] [place] [address] Rail [employer]: Sarath Olivera MD Chloride [Moles/Vol] 104 mmol/L Normal 98-107 [facility] Comment on above: Performed By: #### L ACTIC ALCB #### [facility] [employer] [address] [place] [address] Rail [employer]ender: Sarath Olivera MD CO2 [Moles/Vol] 24 mmol/L Normal 20-31 [facility] Comment on above: Performed By: #### L ACTIC ALCB #### [facility] [employer] [address] [place] [address] Rail [employer]: Sarath Olivera MD Creatinine [Mass/Vol] 0.8 mg/dL Normal 0.50-0.90 [facility] Comment on above: Performed By: #### L ACTMARILIN ALCB #### [facility] [employer] [address] [place] [address] Rail [employer]: Sarath Olivera MD GFR/1.73 sq M.predicted among non-blacks MDRD (S/P/Bld) [Vol rate/Area] 70 mL/min/{1.73_m2} Normal >60 [facility] Comment on above: Result Comment: These [...] Performed By: #### L MARY ALCB #### [facility] [employer] [address] [place] [address] [employer]: Sarath Olivera MD Glucose [Mass/Vol] 106 mg/dL High 74-99 [facility] Comment on above: Performed By: #### L MARY ALCB #### [facility] [employer] [address] [place] [address] [employer]: Sarath Olivera MD Potassium [Moles/Vol] 4.7 mmol/L Normal 3.7-5.3 [facility] Comment on above: Performed By: #### L MARY ALCB #### [address] [address] Rail [employer]ender: Sarath Olivera MD Sodium [Moles/Vol] 135 mmol/L Low 136-145 [facility] Comment on above: Performed By: #### L MARY ALCB #### [facility] [employer] [address] [place] [address] Rail [employer]: Sarath Olivera MD Urea nitrogen [Mass/Vol] 28 mg/dL High 8-23 [facility] Comment on above: Performed By: #### L MARY ALCB #### [facility] [employer] [address] [place] [address] Rail [employer]: Sarath Olivera MD CBC with Diffon 01-10-2023 Abs. Basophil <0.03 Normal 0.00-0.20 [facility] Comment on above: Performed By: #### L MARY ALCB #### [address] [place] [place] [address] Rail [employer]: Sarath Olivera MD Abs.Imm.Granulocyte 0.23 k/uL Normal 0.00-0.30 [facility] Comment on above: Performed By: #### L ACTIC, ALCB #### [facility] [employer] [address] [place] [address] Rail [employer]: Sarath Olivera MD Abs.Neutrophil (Seg) 7.27 k/uL Normal 1.50-8.10 [facility] Comment on above: Performed By: #### L ACTIC, ALCB #### [facility] [employer] [address] [place] [address] [employer]: Sarath Olivera MD Basophils/100 WBC (Bld) 0 % Normal 0-2 [facility] Comment on above: Performed By: #### L ACTIC, ALCB #### [facility] [employer] [address] [place] [address] Rail [employer]: Sarath Olivera MD Eosinophils (Bld) [#/Vol] 0.11 10*3/uL Normal 0.00-0.44 [facility] Comment on above: Performed By: #### L ACTIC, ALCB #### [facility] [employer] [address] [place] [address] Rail [employer]: Sarath Olivera MD Eosinophils/100 WBC (Bld) 1 % Normal 1-4 [facility] Comment on above: Performed By: #### L ACTIC, ALCB #### [facility] [employer] [address] [place] [address] Rail [employer]: Sarath Olivera MD Erythrocyte distribution width (RBC) [Ratio] 15.6 % High 11.8-14.4 [facility] Comment on above: Performed By: #### L ACTIC, ALCB #### [facility] [employer] [address] [place] [address] [employer]: Sarath Olivera MD Hematocrit (Bld) [Volume fraction] 28.4 % Low 36.3-47.1 [facility] Comment on above: Performed By: #### L ACTIC, ALCB #### [facility] [employer] [address] [place] [address] [employer]: Sarath Olivera MD Hemoglobin (Bld) [Mass/Vol] 8.9 g/dL Low 11.9-15.1 [facility] Comment on above: Performed By: #### L ACTIC, ALCB #### [address] [address] Rail [employer]: Sarath Olivera MD Immature granulocytes/100 WBC (Bld) 2 % High 0 [facility] Comment on above: Performed By: #### L ACTIC, ALCB #### [facility] [employer] [address] [place] [address] Rail [employer]: Sarath Olivera MD Lymphocytes (Bld) [#/Vol] 1.31 10*3/uL Normal 1.10-3.70 [facility] Comment on above: Performed By: #### L ACTIC, ALCB #### [facility] [employer] [address] [place] [address] Rail Bender: Sarath Olivera MD Lymphocytes/100 WBC (Bld) 13 % Low 24-43 [facility] Comment on above: Performed By: #### L ACTIC, ALCB #### [facility] [address] [place] [address] Rail Bender: Sarath Olivera MD MCH (RBC) [Entitic mass] 30.9 pg Normal 25.2-33.5 [facility] Comment on above: Performed By: #### L ACTIC, ALCB #### [facility] [employer] [address] [place] [address] Rail Bender: Sarath Olivera MD MCHC (RBC) [Mass/Vol] 31.3 g/dL Normal 28.4-34.8 [facility] Comment on above: Performed By: #### L MARY ALCB #### [address] [address] Rail Bender: Sarath Olivera MD MCV (RBC) [Entitic vol] 98.6 fL Normal 82.6-102.9 [facility] Comment on above: Performed By: #### L MARY ALCB #### [address] [address] Rail Bender: Sarath Olivera MD Monocytes (Bld) [#/Vol] 1.42 10*3/uL High 0.10-1.20 [facility] Comment on above: Performed By: #### Abel HERNANDEZ ALCB #### [address] [address] Rail Bender: Sarath Olivera MD Monocytes/100 WBC (Bld) 14 % High 3-12 [facility] Comment on above: Performed By: #### L MARY ALCB #### [address] [address] Rail Bender: Sarath Olivera MD Neutrophil (Seg) 70 % High 36-65 [facility] Comment on above: Performed By: #### L MARY ALCB #### [address] [address] Rail Bender: Sarath Olivera MD NRBC Automated 1.3 per 100 WBC High 0.0 [facility] Comment on above: Performed By: #### L MARY ALCB #### [address] [address] Rail Bender: Sarath Olivera MD Platelet mean volume (Bld) [Entitic vol] 12.1 fL Normal 8.1-13.5 [facility] Comment on above: Performed By: #### L ACTIC, ALCB #### [address] [address] Rail Bender: Sarath Olivera MD Platelets (Bld) [#/Vol] 109 10*3/uL Low 138-453 [facility] Comment on above: Performed By: #### L ACTIC, ALCB #### [address] [address] Rail Bender: Sarath Olivera MD RBC (Bld) [#/Vol] 2.88 10*6/uL Low 3.95-5.11 [facility] Comment on above: Performed By: #### L ACTIC, ALCB #### [address] [address] Rail Bender: Sarath Olivera MD RBC morphology finding Nom (Bld) ANISOCYTOSIS PRESENT Normal [facility] Comment on above: Performed By: #### L ACTMARILIN, ALCB #### [address] [address] Rail Bender: Sarath Olivera MD WBC (Bld) [#/Vol] 10.4 10*3/uL Normal 3.5-11.3 [facility] Comment on above: Performed By: #### L ACTMARILIN, ALCB #### [address] [address] Rail Bender: Sarath Olivera MD Basic Metab w/rfx MGon 01-09 Anion gap [Moles/Vol] 7 mmol/L Low 9-16 [facility] Comment on above: Performed By: #### B C #### [address] [address] Rail Bender: Sarath Olivera MD Calcium [Mass/Vol] 8.4 mg/dL Low 8.6-10.4 [facility] Comment on above: Performed By: #### B C #### [facility] [employer] [address] [place] [address] Rail Bender: Sarath Olivera MD Chloride [Moles/Vol] 109 mmol/L High 98-107 [facility] Comment on above: Performed By: #### B C #### [facility] [employer] [address] [place] [address] Rail Bender: Sarath Olivera MD CO2 [Moles/Vol] 25 mmol/L Normal 20-31 [facility] Comment on above: Performed By: #### B C #### [facility] [employer] [address] [place] [address] Rail Bender: Sarath Olivera MD Creatinine [Mass/Vol] 0.8 mg/dL Normal 0.50-0.90 [facility] Comment on above: Performed By: #### B C #### [address] [address] Rail Bender: Sarath Olivera MD GFR/1.73 sq M.predicted among non-blacks MDRD (S/P/Bld) [Vol rate/Area] 68 mL/min/{1.73_m2} Normal >60 [facility] Comment on above: Result Comment: These [...] secretion. Performed By: #### B C #### [facility] [employer] [address] [place] [address] Rail Bender: Sarath Olivera MD Glucose [Mass/Vol] 96 mg/dL Normal 74-99 [facility] Comment on above: Performed By: #### B C #### [address] [address] Rail Bender: Sarath Olivera MD Potassium [Moles/Vol] 4.9 mmol/L Normal 3.7-5.3 [facility] Comment on above: Performed By: #### B C #### [address] [address] Rail Bender: Sarath Olivera MD Sodium [Moles/Vol] 141 mmol/L Normal 136-145 [facility] Comment on above: Performed By: #### B C #### [address] [address] Rail Bender: Sarath Olivera MD Urea nitrogen [Mass/Vol] 31 mg/dL High 8-23 [facility] Comment on above: Performed By: #### B C #### [address] [address] Rail Bender: Sarath Olivera MD CBC with Diffon 01-10-2024 Abs. Basophil <0.03 Normal 0.00-0.20 [facility] Comment on above: Performed By: #### B C #### [address] [address] Rail Bender: Sarath Olivera MD Abs. Eosinophil <0.03 Normal 0.00-0.44 [facility] Comment on above: Performed By: #### B C #### [address] [address] Rail Bender: Sarath Olivera MD Abs.Imm.Granulocyte 0.12 k/uL Normal 0.00-0.30 [facility] Comment on above: Performed By: #### B C #### [address] [address] Rail Bender: Sarath Olivera MD Abs.Neutrophil (Seg) 7.01 k/uL Normal 1.50-8.10 [facility] Comment on above: Performed By: #### B C #### [address] [address] Rail Bender: Sarath Olivera MD Basophils/100 WBC (Bld) 0 % Normal 0-2 [facility] Comment on above: Performed By: #### B C #### [address] [address] Rail Bender: Sarath Olivera MD Eosinophils/100 WBC (Bld) 0 % Low 1-4 [facility] Comment on above: Performed By: #### B C #### [address] [address] Rail Bender: Sarath Olivera MD Erythrocyte distribution width (RBC) [Ratio] 15.7 % High 11.8-14.4 [facility] Comment on above: Performed By: #### B C #### [address] [address] Rail Bender: Sarath Olivera MD Hematocrit (Bld) [Volume fraction] 28.2 % Low 36.3-47.1 [facility] Comment on above: Performed By: #### B C #### [address] [address] Rail Bender: Sarath Olivera MD Hemoglobin (Bld) [Mass/Vol] 9.0 g/dL Low 11.9-15.1 [facility] Comment on above: Performed By: #### B C #### [address] [address] Rail Bender: Sarath Olivera MD Immature granulocytes/100 WBC (Bld) 1 % High 0 [facility] Comment on above: Performed By: #### B C #### [address] [address] Rail Bender: Sarath Olivera MD Lymphocytes (Bld) [#/Vol] 1.46 10*3/uL Normal 1.10-3.70 [facility] Comment on above: Performed By: #### B C #### [address] [address] Rail Bender: Sarath Olivera MD Lymphocytes/100 WBC (Bld) 15 % Low 24-43 [facility] Comment on above: Performed By: #### B C #### [address] [address] Rail Bender: Sarath Olivera MD MCH (RBC) [Entitic mass] 30.8 pg Normal 25.2-33.5 [facility] Comment on above: Performed By: #### B C #### [address] [address] Rail Bender: Sarath Olivera MD MCHC (RBC) [Mass/Vol] 31.9 g/dL Normal 28.4-34.8 [facility] Comment on above: Performed By: #### B C #### [address] [address] Rail Bender: Sarath Olivera MD MCV (RBC) [Entitic vol] 96.6 fL Normal 82.6-102.9 [facility] Comment on above: Performed By: #### B C #### [address] [address] Rail Bender: Sarath Olivera MD Monocytes (Bld) [#/Vol] 1.28 10*3/uL High 0.10-1.20 [facility] Comment on above: Performed By: #### B C #### [address] [address] Rail Bender: Sarath Olivera MD Monocytes/100 WBC (Bld) 13 % High 3-12 [facility] Comment on above: Performed By: #### B C #### [address] [address] Rail Bender: Sarath Olivera MD Neutrophil (Seg) 71 % High 36-65 [facility] Comment on above: Performed By: #### B C #### [address] [address] Rail Bender: Sarath Olivera MD NRBC Automated 1.1 per 100 WBC High 0.0 [facility] Comment on above: Performed By: #### B C #### [address] [address] Rail Bender: Sarath Olivera MD Platelet mean volume (Bld) [Entitic vol] 12.7 fL Normal 8.1-13.5 [facility] Comment on above: Performed By: #### B C #### [address] [address] Rail Bender: Sarath Olivera MD Platelets (Bld) [#/Vol] 102 10*3/uL Low 138-453 [facility] Comment on above: Performed By: #### B C #### [address] [address] Rail Bender: Sarath Olivera MD RBC (Bld) [#/Vol] 2.92 10*6/uL Low 3.95-5.11 [facility] Comment on above: Performed By: #### B C #### [address] [address] Rail Bender: Sarath Olivera MD RBC morphology finding Nom (Bld) ANISOCYTOSIS PRESENT Normal [facility] Comment on above: Performed By: #### B C #### [address] [address] Rail Bender: Sarath Olivera MD WBC (Bld) [#/Vol] 9.9 10*3/uL Normal 3.5-11.3 [facility] Comment on above: Performed By: #### B C #### [address] [address] Rail Bender: Sarath Olivera MD Cult, Bloodon 01-10-2024 Cult, Blood Specimen Description .BLOOD Special Requests RT HAND NO MLS GIVEN Culture NO GROWTH 5 DAYS Report Status FINAL 01/10/2024 Normal [facility] Comment on above: Performed By: #### B C #### [address] [address] Rail Bender: Sarath Olivera MD Cult,Bloodon 01-10-2024 Cult,Blood Specimen Description .BLOOD Special Requests RT AC 10ML Culture NO GROWTH 5 DAYS Report Status FINAL 01/10/2024 [facility] Comment on above: Performed By: #### B C #### [address] [address] Rail Bender: Sarath Olivera MD Fentanyl, Urineon 01-10-2024 Fentanyl/Metab Ur 21.9 ng/mL Normal [facility] Comment on above: Result Comment: (NOT [...] developed and its performance characteristics determined by [facility]. It has not been cleared or approved by the [place] Food and Drug Administration. This test was performed in a CLIA certified laboratory and is intended for clinical purposes. Performed By: #### D AU, UAMIC #### [address] [address] Rail Bender: Sarath Olivera MD Norfentanyl, Ur See Note Normal [facility] Comment on above: Result Comment: (NOT E) Unable to identify due to interfering substance(s) in the specimen. Performed By: [facility] [address] [place] [address] Early Childhood Coordinator: Taco Chang MD, PhD CLIA Number: [id number] Performed By: #### D AU, UAMIC #### [address] [address] Rail Bender: Sarath Olivera MD Opiates,Ur Confirmon 024 Codeine, Ur <20 Normal [facility] Comment on above: Performed By: #### D AU, UAMIC #### [address] [address] Rail Bender: Sarath Olivera MD Hydrocodone, Ur <20 Normal [facility] Comment on above: Performed By: #### D AU, UAMIC #### [address] [address] Rail Bender: Sarath Olivera MD Hydromorphone, Ur <20 Normal [facility] Comment on above: Performed By: #### D AU, UAMIC #### [address] [address] Rail Bender: Sarath Olivera MD Morphine, Ur 331 ng/mL Normal [facility] Comment on above: Performed By: #### D AU, UAMIC #### [address] [address] Rail Bender: Sarath Olivera MD Norhydrocodone, U <20 Normal [facility] Comment on above: Result Comment: (NOT E) Performed By: [facility] [address] [place] [address] Early Childhood Coordinator: Taco Chang MD, PhD CLIA Number: [id number] Performed By: #### D AU, UAMIC #### [facility] [address] [place] [address] Rail Bender: Sarath Olivera MD Noroxycodone, Ur <20 Normal [facility] Comment on above: Performed By: #### D AU, UAMIC #### [facility] [address] [place] [address] Rail Bender: Sarath Olivera MD Noroxymorphone,U <20 Normal [facility] Comment on above: Performed By: #### D AU, UAMIC #### [facility] [address] [place] [address] Rail Bender: Sarath Olivera MD Opiates, 6 AM Ur <10 Normal [facility] Comment on [...] developed and its performance characteristics determined by [facility]. It has not been cleared or approved by the [place] Food and Drug Administration. This test was performed in a CLIA certified laboratory and is intended for clinical purposes. Performed By: #### D AU, UAMIC #### [facility] [employer] [address] [place] [address] Rail Bender: Sarath Olivera MD Oxycodone, Ur <20 Normal [facility] Comment on above: Performed By: #### D BOOKER UAMIC #### [address] [address] Rail Bender: Sarath Olivera MD Oxymorphone, Ur <20 Normal [facility] Comment on above: Performed By: #### D BOOKER UAMIC #### [address] [address] Rail Bender: Sarath Olivera MD Basic Metab w/rfx MGon 01-08 Anion gap [Moles/Vol] 7 mmol/L Low 9-16 [facility] Comment on above: Performed By: #### B C #### [address] [address] Rail Bender: Sarath Olivera MD Calcium [Mass/Vol] 8.0 mg/dL Low 8.6-10.4 [facility] Comment on above: Performed By: #### B C #### [address] [address] Rail Bender: Sarath Olivera MD Chloride [Moles/Vol] 113 mmol/L High 98-107 [facility] Comment on above: Performed By: #### B C #### [address] [address] Rail Bender: Sarath Olivera MD CO2 [Moles/Vol] 23 mmol/L Normal 20-31 [facility] Comment on above: Performed By: #### B C #### [address] [address] Rail Bender: Sarath Olivera MD Creatinine [Mass/Vol] 0.9 mg/dL Normal 0.50-0.90 [facility] Comment on above: Performed By: #### B C #### [facility] [employer] [address] [place] [address] Rail Bender: Sarath Olivera MD GFR/1.73 sq M.predicted among non-blacks MDRD (S/P/Bld) [Vol rate/Area] 61 mL/min/{1.73_m2} Normal >60 [facility] Comment on above: Result Comment: These [...] secretion. Performed By: #### B C #### [address] [address] Rail Bender: Sarath Olivera MD Glucose [Mass/Vol] 112 mg/dL High 74-99 [facility] Comment on above: Performed By: #### B C #### [address] [address] Rail Bender: Sarath Olivera MD Potassium [Moles/Vol] 5.1 mmol/L Normal 3.7-5.3 [facility] Comment on above: Performed By: #### B C #### [facility] [employer] [address] [place] [address] Rail Bender: Sarath Olivera MD Sodium [Moles/Vol] 143 mmol/L Normal 136-145 [facility] Comment on above: Performed By: #### B C #### [facility] [employer] [address] [place] [address] Rail Bender: Sarath Olivera MD Urea nitrogen [Mass/Vol] 31 mg/dL High 8-23 [facility] Comment on above: Performed By: #### B C #### [facility] [address] Rail Bender: Sarath Olivera MD CBC with Diffon 01-09-2024 Platelet, Fluoresc. 84 k/uL Low 138-453 [facility] Comment on above: Performed By: #### B C #### [place] [address] Rail Bender: Sarath Olivera MD PLT, Immature Fract. 11.1 % High 1.1-10.3 [facility] Comment on above: Performed By: #### B C #### [place] [address] Rail Bender: Sarath Olivera MD Abs. Basophil <0.03 Normal 0.00-0.20 [facility] Comment on above: Performed By: #### B C #### [place] [address] Rail Bender: Sarath Olivera MD Abs. Eosinophil <0.03 Normal 0.00-0.44 [facility] Comment on above: Performed By: #### B C #### [address] [address] Rail Bender: Sarath Olivera MD Abs.Imm.Granulocyte 0.09 k/uL Normal 0.00-0.30 [facility] Comment on above: Performed By: #### B C #### [place] [address] Rail Bender: Sarath lOivera MD Abs.Neutrophil (Seg) 9.66 k/uL High 1.50-8.10 [facility] Comment on above: Performed By: #### B C #### [address] [address] Rail Bender: Sarath Olivera MD Basophils/100 WBC (Bld) 0 % Normal 0-2 [facility] Comment on above: Performed By: #### B C #### [address] [address] Rail Bender: Sarath Olivera MD Eosinophils/100 WBC (Bld) 0 % Low 1-4 [facility] Comment on above: Performed By: #### B C #### [address] [address] Rail Bender: Sarath Olivera MD Immature granulocytes/100 WBC (Bld) 1 % High 0 [facility] Comment on above: Performed By: #### B C #### [address] [address] Rail Bender: Sarath Olivera MD Lymphocytes (Bld) [#/Vol] 0.83 10*3/uL Low 1.10-3.70 [facility] Comment on above: Performed By: #### B C #### [address] [address] Rail Bender: Sarath Olivera MD Lymphocytes/100 WBC (Bld) 7 % Low 24-43 [facility] Comment on above: Performed By: #### B C #### [address] [address] Rail Bender: Sarath Olivera MD Monocytes (Bld) [#/Vol] 1.03 10*3/uL Normal 0.10-1.20 [facility] Comment on above: Performed By: #### B C #### [address] [address] Rail Bender: Sarath Olivera MD Monocytes/100 WBC (Bld) 9 % Normal 3-12 [facility] Comment on above: Performed By: #### B C #### [address] [address] Rail Bender: Sarath Olivera MD Neutrophil (Seg) 83 % High 36-65 [facility] Comment on above: Performed By: #### B C #### [address] [address] Rail Bender: Sarath Olivera MD Erythrocyte distribution width (RBC) [Ratio] 16.0 % High 11.8-14.4 [facility] Comment on above: Performed By: #### B C #### [place] [address] Rail Bender: Sarath Olivera MD Hematocrit (Bld) [Volume fraction] 28.1 % Low 36.3-47.1 [facility] Comment on above: Performed By: #### B C #### [place] [address] Rail Bender: Sarath Olivera MD Hemoglobin (Bld) [Mass/Vol] 8.5 g/dL Low 11.9-15.1 [facility] Comment on above: Performed By: #### B C #### [place] [address] Rail Bender: Sarath Olivera MD MCH (RBC) [Entitic mass] 30.0 pg Normal 25.2-33.5 [facility] Comment on above: Performed By: #### B C #### [place] [address] Rail Bender: Sarath Olivera MD MCHC (RBC) [Mass/Vol] 30.2 g/dL Normal 28.4-34.8 [facility] Comment on above: Performed By: #### B C #### [address] [address] Rail Bender: Sarath Olivera MD MCV (RBC) [Entitic vol] 99.3 fL Normal 82.6-102.9 [facility] Comment on above: Performed By: #### B C #### [address] [address] Rail Bender: Sarath Olivera MD NRBC Automated 0.9 per 100 WBC High 0.0 [facility] Comment on above: Performed By: #### B C #### [address] [address] Rail Bender: Sarath Olivera MD Platelet Count See Reflexed IPF Result Normal 138-453 [facility] Comment on above: Performed By: #### B C #### [address] [address] Rail Bender: Sarath Olivera MD RBC (Bld) [#/Vol] 2.83 10*6/uL Low 3.95-5.11 [facility] Comment on above: Performed By: #### B C #### [address] [address] Rail Bender: Sarath Olivera MD RBC morphology finding Nom (Bld) ANISOCYTOSIS PRESENT Normal [facility] Comment on above: Performed By: #### B C #### [address] [address] Rail Bender: Sarath Olivera MD WBC (Bld) [#/Vol] 11.6 10*3/uL High 3.5-11.3 [facility] Comment on above: Performed By: #### B C #### [address] [address] Rail Bender: Sarath Olivera MD Basic Metab w/rfx MGon 01-07 Anion gap [Moles/Vol] 8 mmol/L Low 9-16 [facility] Comment on above: Performed By: #### B C #### [address] [address] Rail Bender: Sarath Olivera MD Calcium [Mass/Vol] 7.6 mg/dL Low 8.6-10.4 [facility] Comment on above: Performed By: #### B C #### [facility] [address] [place] [address] Rail Bender: Sarath Olivera MD Chloride [Moles/Vol] 114 mmol/L High 98-107 [facility] Comment on above: Performed By: #### B C #### [facility] [address] [place] [address] Rail Bender: Sarath Olivera MD CO2 [Moles/Vol] 20 mmol/L Normal 20-31 [facility] Comment on above: Performed By: #### B C #### [address] [address] Rail Bender: Sarath Olivera MD Creatinine [Mass/Vol] 1.1 mg/dL High 0.50-0.90 [facility] Comment on above: Performed By: #### B C #### [address] [address] Rail Bender: Sarath Olivera MD GFR/1.73 sq M.predicted among non-blacks MDRD (S/P/Bld) [Vol rate/Area] 48 mL/min/{1.73_m2} Low >60 [facility] Comment on above: Result Comment: These [...] secretion. Performed By: #### B C #### [address] [address] Rail Bender: Sarath Olivera MD Glucose [Mass/Vol] 158 mg/dL High 74-99 [facility] Comment on above: Performed By: #### B C #### [address] [address] Rail Bender: Sarath Olivera MD Potassium [Moles/Vol] 5.1 mmol/L Normal 3.7-5.3 [facility] Comment on above: Performed By: #### B C #### [address] [address] Rail Bender: Sarath Olivera MD Sodium [Moles/Vol] 142 mmol/L Normal 136-145 [facility] Comment on above: Performed By: #### B C #### [address] [address] Rail Bender: Sarath Olivera MD Urea nitrogen [Mass/Vol] 31 mg/dL High 8-23 [facility] Comment on above: Performed By: #### B C #### [address] [address] Rail Bender: Sarath Olivera MD CBC with Diffon 01-08-2024 Abs. Basophil 0.00 k/uL Normal 0.0-0.2 [facility] Comment on above: Performed By: #### B C #### [address] [address] Rail Bender: Sarath Olivera MD Abs.Imm.Granulocyte 0.13 k/uL Normal 0.00-0.30 [facility] Comment on above: Performed By: #### B C #### [address] [address] Rail Bender: Sarath Olivera MD Abs.Neutrophil (Seg) 10.66 k/uL High 1.8-7.7 [facility] Comment on above: Performed By: #### B C #### [address] [id number] Rail Bender: Sarath Olivera MD Basophils/100 WBC (Bld) 0 % Normal 0-2 [facility] Comment on above: Performed By: #### B C #### [address] [address] Rail Bender: Sarath Olivera MD Eosinophils (Bld) [#/Vol] 0.00 10*3/uL Normal 0.0-0.4 [facility] Comment on above: Performed By: #### B C #### [address] [address] Rail Bender: Sarath Olivera MD Eosinophils/100 WBC (Bld) 0 % Low 1-4 [facility] Comment on above: Performed By: #### B C #### [address] [address] Rail Bender: Sarath Olivera MD Immature granulocytes/100 WBC (Bld) 1 % High 0 [facility] Comment on above: Performed By: #### B C #### [address] [address] Rail Bender: Sarath Olivera MD Lymphocytes (Bld) [#/Vol] 0.51 10*3/uL Low 1.0-4.8 [facility] Comment on above: Performed By: #### B C #### [address] [address] Rail Bender: Sarath Olivera MD Lymphocytes/100 WBC (Bld) 4 % Low 24-44 [facility] Comment on above: Performed By: #### B C #### [address] [address] Rail Bender: Sarath Olivera MD Monocytes (Bld) [#/Vol] 1.40 10*3/uL High 0.1-0.8 [facility] Comment on above: Performed By: #### B C #### [address] [address] Rail Bender: Sarath Olivera MD Monocytes/100 WBC (Bld) 11 % High 1-7 [facility] Comment on above: Performed By: #### B C #### [address] [address] Rail Bender: Sarath Olivera MD Morphology Manoj (Bld) [Interp] ANISOCYTOSIS PRESENT Normal [facility] Comment on above: Performed By: #### B C #### [address] [address] Rail Bender: Sarath Olivera MD Neutrophil (Seg) 84 % High 36-66 [facility] Comment on above: Performed By: #### B C #### [address] [address] Rail Bender: Sarath Olivera MD Erythrocyte distribution width (RBC) [Ratio] 15.8 % High 11.8-14.4 [facility] Comment on above: Performed By: #### B C #### [address] [address] Rail Bender: Sarath Olivera MD Hematocrit (Bld) [Volume fraction] 26.2 % Low 36.3-47.1 [facility] Comment on above: Performed By: #### B C #### [address] [address] Rail Bender: Sarath Olivera MD Hemoglobin (Bld) [Mass/Vol] 8.4 g/dL Low 11.9-15.1 [facility] Comment on above: Performed By: #### B C #### [address] [address] Rail Bender: Sarath Olivera MD MCH (RBC) [Entitic mass] 29.8 pg Normal 25.2-33.5 [facility] Comment on above: Performed By: #### B C #### [address] [address] Rail Bender: Sarath Olivera MD MCHC (RBC) [Mass/Vol] 32.1 g/dL Normal 28.4-34.8 [facility] Comment on above: Performed By: #### B C #### [address] [address] Rail Bender: Sarath Olivera MD MCV (RBC) [Entitic vol] 92.9 fL Normal 82.6-102.9 [facility] Comment on above: Performed By: #### B C #### [address] [address] Rail Bender: Sarath Olivera MD NRBC Automated 0.3 per 100 WBC High 0.0 [facility] Comment on above: Performed By: #### B C #### [address] [address] Rail Bender: Sarath Olivera MD Platelet Count See Reflexed IPF Result Normal [address] [place] [address] Comment on above: Performed By: #### B C #### [address] [address] Rail Bender: Sarath Olivera MD Platelet, Fluoresc. 65 k/uL Low 138-296 [facility] Comment on above: Performed By: #### B C #### [address] [address] Rail Bender: Sarath Olivera MD PLT, Immature Fract. 11.2 % High 1.1-10.3 [facility] Comment on above: Performed By: #### B C #### [address] [address] Rail Bender: Sarath Olivera MD RBC (Bld) [#/Vol] 2.82 10*6/uL Low 3.95-5.11 [facility] Comment on above: Performed By: #### B C #### [facility] [address] [place] [address] Rail Bender: Sarath Olivera MD WBC (Bld) [#/Vol] 12.7 10*3/uL High 3.5-11.3 [facility] Comment on above: Performed By: #### B C #### [address] [address] Rail Bender: Sarath Olivera MD Calcium, Ionicon 01-08-2024 Calcium [Moles/Vol] 1.12 mmol/L Low 1.13-1.33 [facility] Comment on above: Performed By: #### B C #### [address] [address] Rail Bender: Sarath Olivera MD Magnesiumon 01-08-2024 Magnesium [Mass/Vol] 2.0 mg/dL Normal 1.6-2.4 [facility] Comment on above: Performed By: #### B C #### [address] [address] Rail Bender: Sarath Olivera MD Phosphorus, Inorg.on 024 Phosphorus, Inorg. 1.9 mg/dL Low 2.5-4.5 [facility] Comment on above: Performed By: #### B C #### [address] [address] Rail Bender: Sarath Olivera MD XR CHEST PORTABLEon 01-08-20 [...] Berhane Pressley MD 01/08/24 Final result Normal [facility] Arterial Bld Gas,POCon 01-06 FIO2 60.0 Normal [facility] HCO3 (Bld) [Moles/Vol] 20.2 mmol/L Low 21.0-28.0 [facility] Negative Base Excess (calc) 4.5 mmol/L High 0.0-2.0 [facility] Oxygen saturation in Blood 99.4 % High 94.0-98.0 [facility] pCO2, Arterial 34.6 mm Hg Low 35.0-48.0 [facility] pH, Arterial 7.374 Normal 7.350-7.450 [facility] pO2, Arterial 155.4 mm Hg High 83.0-108.0 [facility] Site Drawn Arterial Line Normal [facility] FIO2 70.0 Normal [facility] HCO3 (Bld) [Moles/Vol] 21.2 mmol/L Normal 21.0-28.0 [facility] Negative Base Excess (calc) 4.4 mmol/L High 0.0-2.0 [facility] Oxygen saturation in Blood 97.4 % Normal 94.0-98.0 [facility] pCO2, Arterial 39.8 mm Hg Normal 35.0-48.0 [facility] pH, Arterial 7.333 Low 7.350-7.450 [facility] pO2, Arterial 100.9 mm Hg Normal 83.0-108.0 [facility] FIO2 80.0 Normal [facility] HCO3 (Bld) [Moles/Vol] 21.0 mmol/L Normal 21.0-28.0 [facility] Negative Base Excess (calc) 4.1 mmol/L High 0.0-2.0 [facility] Oxygen saturation in Blood 97.2 % Normal 94.0-98.0 [facility] pCO2, Arterial 37.9 mm Hg Normal 35.0-48.0 [facility] pH, Arterial 7.353 Normal 7.350-7.450 [facility] pO2, Arterial 96.9 mm Hg Normal 83.0-108.0 [facility] Site Drawn Arterial Line Normal [facility] Basic Metab w/rfx MGon 01-06 Anion gap [Moles/Vol] 8 mmol/L Low 9-16 [facility] Comment on above: Performed By: #### B C #### [facility] [employer] [address] [place] [address] Rail Bender: Sarath Olivera MD Calcium [Mass/Vol] 7.7 mg/dL Low 8.6-10.4 [facility] Comment on above: Performed By: #### B C #### [facility] [employer] [address] [place] [address] Rail Bender: Sarath Olivera MD Chloride [Moles/Vol] 115 mmol/L High 98-107 [facility] Comment on above: Performed By: #### B C #### [facility] [employer] [address] [place] [address] Rail Bender: Sarath Olivera MD CO2 [Moles/Vol] 20 mmol/L Normal 20-31 [facility] Comment on above: Performed By: #### B C #### [facility] [employer] [address] [place] [address] [phone] Rail Bender: Sarath Olivera MD Creatinine [Mass/Vol] 1.3 mg/dL High 0.50-0.90 [facility] Comment on above: Performed By: #### B C #### [address] [address] Rail Bender: Sarath Olivera MD GFR/1.73 sq M.predicted among non-blacks MDRD (S/P/Bld) [Vol rate/Area] 41 mL/min/{1.73_m2} Low >60 [facility] Comment on above: Result Comment: These [...] secretion. Performed By: #### B C #### [address] [address] Rail Bender: Sarath Olivera MD Glucose [Mass/Vol] 150 mg/dL High 74-99 [facility] Comment on above: Performed By: #### B C #### [facility] [employer] [address] [place] [address] Rail Bender: Sarath Olivera MD Potassium [Moles/Vol] 4.2 mmol/L Normal 3.7-5.3 [facility] Comment on above: Performed By: #### B C #### [facility] [employer] [address] [place] [address] Rail Bender: Sarath Olivera MD Sodium [Moles/Vol] 143 mmol/L Normal 136-145 [facility] Comment on above: Performed By: #### B C #### [address] [address] Rail Bender: Sarath Olivera MD Urea nitrogen [Mass/Vol] 36 mg/dL High 8-23 [facility] Comment on above: Performed By: #### B C #### [address] [address] Rail Bender: Sarath Olivera MD CBC with Diffon 01-07-2024 Abs. Basophil 0.00 k/uL Normal 0.0-0.2 [facility] Comment on above: Performed By: #### B C #### [address] [address] Rail Bender: Sarath Olivera MD Abs.Imm.Granulocyte 0.00 k/uL Normal 0.00-0.30 [facility] Comment on above: Performed By: #### B C #### [address] [address] Rail Bender: Sarath Olivera MD Abs.Neutrophil (Seg) 8.81 k/uL High 1.8-7.7 [facility] Comment on above: Performed By: #### B C #### [address] [address] Rail Bender: Sarath Olivera MD Basophils/100 WBC (Bld) 0 % Normal 0-2 [facility] Comment on above: Performed By: #### B C #### [address] [address] Rail Bender: Sarath Olivera MD Eosinophils (Bld) [#/Vol] 0.00 10*3/uL Normal 0.0-0.4 [facility] Comment on above: Performed By: #### B C #### [address] [address] Rail Bender: Sarath Olivera MD Eosinophils/100 WBC (Bld) 0 % Low 1-4 [facility] Comment on above: Performed By: #### B C #### [address] [address] Rail Bender: Sarath Olivera MD Immature granulocytes/100 WBC (Bld) 0 % Normal 0 [facility] Comment on above: Performed By: #### B C #### [address] [address] Rail Bender: Sarath Olivera MD Lymphocytes (Bld) [#/Vol] 0.69 10*3/uL Low 1.0-4.8 [facility] Comment on above: Performed By: #### B C #### [address] [address] Rail Bender: Sarath Olivera MD Lymphocytes/100 WBC (Bld) 7 % Low 24-44 [facility] Comment on above: Performed By: #### B C #### [address] [address] Rail Bender: Sarath Olivera MD Monocytes (Bld) [#/Vol] 0.40 10*3/uL Normal 0.1-0.8 [facility] Comment on above: Performed By: #### B C #### [address] [address] Rail Bender: Sarath Olivera MD Monocytes/100 WBC (Bld) 4 % Normal 1-7 [facility] Comment on above: Performed By: #### B C #### [address] [address] Rail Bender: Sarath Olivera MD Morphology Manoj (Bld) [Interp] ANISOCYTOSIS PRESENT Normal [facility] Comment on above: Result Comment: INCR EASED BANDS PRESENT Performed By: #### B C #### [address] [address] Rail Bender: Sarath Olivera MD Neutrophil (Seg) 89 % High 36-66 [facility] Comment on above: Performed By: #### B C #### [address] [address] Rail Bender: Sarath Olivera MD Erythrocyte distribution width (RBC) [Ratio] 14.8 % High 11.8-14.4 [facility] Comment on above: Performed By: #### B C #### [address] [address] Rail Bender: Sarath Olivera MD Hematocrit (Bld) [Volume fraction] 25.3 % Low 36.3-47.1 [facility] Comment on above: Performed By: #### B C #### [address] [address] Rail Bender: Sarath Olivera MD Hemoglobin (Bld) [Mass/Vol] 8.3 g/dL Low 11.9-15.1 [facility] Comment on above: Performed By: #### B C #### [address] [address] Rail Bender: Sarath Olivera MD MCH (RBC) [Entitic mass] 30.3 pg Normal 25.2-33.5 [facility] Comment on above: Performed By: #### B C #### [address] [address] Rail Bender: Sarath Olivera MD MCHC (RBC) [Mass/Vol] 32.8 g/dL Normal 28.4-34.8 [facility] Comment on above: Performed By: #### B C #### [address] [address] Rail Bender: Sarath Olivera MD MCV (RBC) [Entitic vol] 92.3 fL Normal 82.6-102.9 [facility] Comment on above: Performed By: #### B C #### [address] [address] Rail Bender: Sarath Olivera MD NRBC Automated 0.0 per 100 WBC Normal 0.0 [facility] Comment on above: Performed By: #### B C #### [address] [address] Rail Bender: Sarath Olivera MD Platelet Count See Reflexed IPF Result Normal 138-453 [facility] Comment on above: Performed By: #### B C #### [address] [address] Rail Bender: Sarath Olivera MD Platelet, Fluoresc. 70 k/uL Low 138-453 [facility] Comment on above: Performed By: #### B C #### [address] [address] Rail Bender: Sarath Olivera MD PLT, Immature Fract. 10.5 % High 1.1-10.3 [facility] Comment on above: Performed By: #### B C #### [address] [address] Rail Bender: Sarath Olivera MD RBC (Bld) [#/Vol] 2.74 10*6/uL Low 3.95-5.11 [facility] Comment on above: Performed By: #### B C #### [address] [address] Rail Bender: Sarath Olivera MD WBC (Bld) [#/Vol] 9.9 10*3/uL Normal 3.5-11.3 [facility] Comment on above: Performed By: #### B C #### [address] [address] Rail Bender: Sarath Olivera MD Calcium, Ionicon 01-07-2024 Calcium [Moles/Vol] 1.13 mmol/L Normal 1.13-1.33 [facility] Comment on above: Performed By: #### I OCAL ####[address] [address] Lab Director: Sarath Olivera MD Cult,Urineon 01-07-2024 Cult,Urine Specimen Description .CLEAN CATCH URINE Special Requests Site: Urine Culture NO GROWTH Report Status FINAL 01/07/2024 Normal [facility] Comment on above: Performed By: #### B C #### [address] [address] Rail Bender: Sarath Olivera MD Gl Hemostasis TEG w/Lysison 01-07-2024 Fibrinogen, Func TEG 17.9 mm Normal 15.0-32.0 [facility] Comment on above: Performed By: #### B C #### [address] [address] Rail Bender: Sarath Olivera MD LY30 (Lysis) TEG 1.0 % Normal 0.0-2.6 [facility] Comment on above: Performed By: #### B C #### [address] [address] Rail Bender: Sarath Olivera MD MA Rapid TEG 54.9 mm Normal 52.0-70 [facility] Comment on above: Performed By: #### B C #### [address] [address] Rail Bender: Sarath Olivera MD R(Reaction Time) TEG 5.7 min Normal 4.6-9.1 [facility] Comment on above: Performed By: #### B C #### [address] [address] Rail Bender: Sarath Olivera MD Glucose (POC)on 01-07-2024 Glucose [Mass/Vol] 161 mg/dL High 74-100 [facility] Glucose [Mass/Vol] 143 mg/dL High 74-100 [facility] Glucose [Mass/Vol] 157 mg/dL High 74-100 [facility] Glucose,Whole Bloodon 2023 Glucose [Mass/Vol] 142 mg/dL High 65-105 [facility] Glucose [Mass/Vol] 145 mg/dL High 65-105 [facility] Lactic Acid (POC)on 01-07-20 24 Lactate [Moles/Vol] 1.0 mmol/L Normal 0.56-1.39 [facility] Lactate [Moles/Vol] 1.0 mmol/L Normal 0.56-1.39 [facility] Lactate [Moles/Vol] 1.1 mmol/L Normal 0.56-1.39 [facility] Magnesiumon 01-07-2024 Magnesium [Mass/Vol] 1.9 mg/dL Normal 1.6-2.4 [facility] Comment on above: Performed By: #### B C #### [employer] [address] [place] [address] Rail Bender: Sarath Olivera MD Phosphorus, Inorg.on 024 Phosphorus, Inorg. 3.1 mg/dL Normal 2.5-4.5 [facility] Comment on above: Performed By: #### B C #### [employer] [address] [place] [address] [phone] Rail Bender: Sarath Olivera MD XR CHEST PORTABLEon 01-07-20 [...] Mayelin Reynolds MD 01/07/24 Final result Normal [facility] XR CHEST PORTABLE EXAMINATION: ONE XRAY [...] Deon Webb MD 01/07/24 Final result Normal [facility] Albuminon 01-06-2024 Albumin [Mass/Vol] 2.8 g/dL Low 3.5-5.2 [facility] Comment on above: Performed By: #### A LB, FT4, TSHX, GLYHGB, HH, VD25 ####[facility] [address] [place] [address] [facility] Director: Sarath Olivera MD Arterial Bld Gas,POCon 01-05 FIO2 100.0 Normal [facility] HCO3 (Bld) [Moles/Vol] 20.7 mmol/L Low 21.0-28.0 [facility] Negative Base Excess (calc) 3.5 mmol/L High 0.0-2.0 [facility] Oxygen saturation in Blood 99.5 % High 94.0-98.0 [facility] pCO2, Arterial 32.9 mm Hg Low 35.0-48.0 [facility] pH, Arterial 7.406 Normal 7.350-7.450 [facility] pO2, Arterial 164.9 mm Hg High 83.0-108.0 [facility] Site Drawn Arterial Line Normal [facility] FIO2 100.0 Normal [facility] HCO3 (Bld) [Moles/Vol] 19.1 mmol/L Low 21.0-28.0 [facility] Negative Base Excess (calc) 4.6 mmol/L High 0.0-2.0 [facility] Oxygen saturation in Blood 99.3 % High 94.0-98.0 [facility] pCO2, Arterial 29.3 mm Hg Low 35.0-48.0 [facility] pH, Arterial 7.421 Normal 7.350-7.450 [facility] pO2, Arterial 142.4 mm Hg High 83.0-108.0 [facility] Site Drawn Arterial Line Normal [facility] FIO2 3.0 Normal [facility] HCO3 (Bld) [Moles/Vol] 18.8 mmol/L Low 21.0-28.0 [facility] Negative Base Excess (calc) 5.5 mmol/L High 0.0-2.0 [facility] O2 Device Cannula Normal [facility] Oxygen saturation in Blood 90.0 % Low 94.0-98.0 [facility] pCO2, Arterial 30.6 mm Hg Low 35.0-48.0 [facility] pH, Arterial 7.395 Normal 7.350-7.450 [facility] pO2, Arterial 57.8 mm Hg Low 83.0-108.0 [facility] Site Drawn Right Radial Artery Normal [facility] FIO2 5.0 Normal [facility] HCO3 (Bld) [Moles/Vol] 12.6 mmol/L Low 21.0-28.0 [facility] Negative Base Excess (calc) 14.2 mmol/L High 0.0-2.0 [facility] Oxygen saturation in Blood 94.6 % Normal 94.0-98.0 [facility] pCO2, Arterial 32.3 mm Hg Low 35.0-48.0 [facility] pH, Arterial 7.199 Critically low 7.350-7.450 [facility] pO2, Arterial 88.8 mm Hg Normal 83.0-108.0 [facility] Site Drawn Right Radial Artery Normal [facility] Basic Metab w/rfx MGon 01-05 Anion gap [Moles/Vol] 18 mmol/L High 9-16 [facility] Comment on above: Performed By: #### Ashley CELESTE UAMIC #### [facility] [employer] [address] [place] [address] Rail Bender: Sarath Olivera MD Calcium [Mass/Vol] 7.7 mg/dL Low 8.6-10.4 [facility] Comment on above: Performed By: #### Ashley CELESTE UAMIC #### [facility] [employer] [address] [place] [address] Rail Bender: Sarath Olivera MD Chloride [Moles/Vol] 110 mmol/L High 98-107 [facility] Comment on above: Performed By: #### Ashley CELESTE UAMIC #### [facility] [address] [place] [address] Rail Bender: Sarath Olivera MD CO2 [Moles/Vol] 15 mmol/L Low 20-31 [facility] Comment on above: Performed By: #### Ashley CELESTE UAMIC #### [employer] [address] [place] [address] Rail Bender: Sarath Olivera MD Creatinine [Mass/Vol] 1.9 mg/dL High 0.50-0.90 [facility] Comment on above: Performed By: #### Ashley CELESTE UAMIC #### [facility] [address] [place] [address] Rail Bender: Sarath Olivera MD GFR/1.73 sq M.predicted among non-blacks MDRD (S/P/Bld) [Vol rate/Area] 26 mL/min/{1.73_m2} Low >60 [facility] Comment on above: Result Comment: These [...] #### Ashley CELESTE, UAMIC #### [facility] [address] [place] [address] Rail Bender: Sarath Olivera MD Glucose [Mass/Vol] 173 mg/dL High 74-99 [facility] Comment on above: Performed By: #### Ashley CELESTE, UAMIC #### [facility] [employer] [address] [place] [address] Rail Bender: aSrath Olivera MD Potassium [Moles/Vol] 4.6 mmol/L Normal 3.7-5.3 [facility] Comment on above: Performed By: #### Ashley AU, UAMIC #### [facility] [address] [place] [address] Rail Bender: Sarath Olivera MD Sodium [Moles/Vol] 143 mmol/L Normal 136-145 [facility] Comment on above: Performed By: #### Ashley AU, UAMIC #### [facility] [address] [place] [address] Rail Bender: Sarath Olivera MD Urea nitrogen [Mass/Vol] 32 mg/dL High 8-23 [facility] Comment on above: Performed By: #### Ashley AU, UAMIC #### [facility] [address] [place] [address] Rail Bender: Sarath Olivera MD Anion gap [Moles/Vol] 21 mmol/L High 9-16 [facility] Comment on above: Performed By: #### B C #### [address] [address] Rail Bender: Sarath Olivera MD Calcium [Mass/Vol] 7.6 mg/dL Low 8.6-10.4 [facility] Comment on above: Performed By: #### B C #### [address] [address] Rail Bender: Sarath Olivera MD Chloride [Moles/Vol] 113 mmol/L High 98-107 [facility] Comment on above: Performed By: #### B C #### [address] [address] Rail Bender: Sarath Olivera MD CO2 [Moles/Vol] 9 mmol/L Critically low 20-31 [facility] Comment on above: Performed By: #### B C #### [address] [address] Rail Bender: Sarath Olivera MD Creatinine [Mass/Vol] 1.7 mg/dL High 0.50-0.90 [facility] Comment on above: Performed By: #### B C #### [address] [address] Rail Bender: Sarath Olivera MD GFR/1.73 sq M.predicted among non-blacks MDRD (S/P/Bld) [Vol rate/Area] 20 mL/min/{1.73_m2} Low >60 [facility] Comment on above: Result Comment: These [...] secretion. Performed By: #### B C #### [facility] [employer] [address] [place] [address] Rail Bender: Sarath Olivera MD Glucose [Mass/Vol] 184 mg/dL High 74-99 [facility] Comment on above: Performed By: #### B C #### [address] [address] Rail Bender: Sarath Olivera MD Potassium [Moles/Vol] 4.7 mmol/L Normal 3.7-5.3 [facility] Comment on above: Performed By: #### B C #### [address] [address] Rail Bender: Sarath Olivera MD Sodium [Moles/Vol] 143 mmol/L Normal 136-145 [facility] Comment on above: Performed By: #### B C #### [address] [address] Rail Bender: Sarath lOivera MD Urea nitrogen [Mass/Vol] 30 mg/dL High 8-23 [facility] Comment on above: Performed By: #### B C #### [address] [address] Rail Bender: Sarath Olivera MD Basic Metabolic Profon 01-05 Anion gap [Moles/Vol] 9 mmol/L Normal 9-16 [facility] Comment on above: Performed By: #### B MP, IOCAL, CDP, PT, MG, SRAVANTHI ####[facility] [address] [place] [address])[phone] Director: Sarath Olivera MD Calcium [Mass/Vol] 8.0 mg/dL Low 8.6-10.4 [facility] Comment on above: Performed By: #### B MP, IOCAL, CDP, PT, MG, SRAVANTHI ####[facility] [address] [place] [address] Lab Director: Sarath Olivera MD Chloride [Moles/Vol] 114 mmol/L High 98-107 [facility] Comment on above: Performed By: #### B MP, IOCAL, CDP, PT, MG, SRAVANTHI ####[facility] [address] [place] [address] Lab Director: Sarath Olivera MD CO2 [Moles/Vol] 19 mmol/L Low 20-31 [facility] Comment on above: Performed By: #### B MP, IOCAL, CDP, PT, MG, SRAVANTHI ####[address] [address] Lab Director: Sarath Olivera MD Creatinine [Mass/Vol] 1.4 mg/dL High 0.50-0.90 [facility] Comment on above: Performed By: #### B MP, IOCAL, CDP, PT, MG, SRAVANTHI ####[address] Lab Director: Sarath Olivera MD GFR/1.73 sq M.predicted among non-blacks MDRD (S/P/Bld) [Vol rate/Area] 38 mL/min/{1.73_m2} Low >60 [facility] Comment on above: Result Comment: These [...] B MP, IOCAL, CDP, PT, MG, SRAVANTHI ####[facility] [address] [place] [address] Lab Director: Sarath Olivera MD Glucose [Mass/Vol] 147 mg/dL High 74-99 [facility] Comment on above: Performed By: #### B MP, IOCAL, CDP, PT, MG, SRAVANTHI ####[facility] [address] [place], [place] [address])[phone] Director: Sarath Olivera MD Potassium [Moles/Vol] 4.4 mmol/L Normal 3.7-5.3 [facility] Comment on above: Performed By: #### B MP, IOCAL, CDP, PT, MG, SRAVANTHI ####[facility] [address] [place], [place] [address])[phone] Director: Sarath Olivera MD Sodium [Moles/Vol] 142 mmol/L Normal 136-145 [facility] Comment on above: Performed By: #### B MP, IOCAL, CDP, PT, MG, SRAVANTHI ####[facility] [address] [place], [place] [address])[phone] Director: Sarath Olivera MD Urea nitrogen [Mass/Vol] 36 mg/dL High 8-23 [facility] Comment on above: Performed By: #### B MP, IOCAL, CDP, PT, MG, SRAVANTHI ####[facility] [address] [place], [place] [address])[phone] Director: Sarath Olivera MD CBC with Diffon 01-06-2024 Abs. Basophil 0.00 k/uL Normal 0.0-0.2 [facility] Comment on above: Performed By: #### B MP, IOCAL, CDP, PT, MG, SRAVANTHI ####[facility] [address] [place], [place] [address])[phone] Director: Sarath Olivera MD Abs.Imm.Granulocyte 0.00 k/uL Normal 0.00-0.30 [facility] Comment on above: Performed By: #### B MP, IOCAL, CDP, PT, MG, SRAVANTHI ####[facility] [address] [place], [place] [address])[phone] Director: Sarath Olivera MD Abs.Neutrophil (Seg) 9.26 k/uL High 1.8-7.7 [facility] Comment on above: Performed By: #### B MP, IOCAL, CDP, PT, MG, SRAVANTHI ####[address] [address])[phone] Director: Sarath Olivera MD Basophils/100 WBC (Bld) 0 % Normal 0-2 [facility] Comment on above: Performed By: #### B MP, IOCAL, CDP, PT, MG, SRAVANTHI ####[facility] [address] [place] [address] Lab Director: Sarath Olivera MD Eosinophils (Bld) [#/Vol] 0.00 10*3/uL Normal 0.0-0.4 [facility] Comment on above: Performed By: #### B MP, IOCAL, CDP, PT, MG, SRAVANTHI ####[address] [address])[phone] Director: Sarath Olivera MD Eosinophils/100 WBC (Bld) 0 % Low 1-4 [facility] Comment on above: Performed By: #### B MP, IOCAL, CDP, PT, MG, SRAVANTHI ####[address] [address])[phone] Director: Sarath Olivera MD Immature granulocytes/100 WBC (Bld) 0 % Normal 0 [facility] Comment on above: Performed By: #### B MP, IOCAL, CDP, PT, MG, SRAVANTHI ####[facility] [address] [place] [address])[phone] Director: Sarath Olivera MD Lymphocytes (Bld) [#/Vol] 0.52 10*3/uL Low 1.0-4.8 [facility] Comment on above: Performed By: #### B MP, IOCAL, CDP, PT, MG, SRAVANTHI ####[facility] [address] [place] [address])[phone] Director: Sarath Olivera MD Lymphocytes/100 WBC (Bld) 5 % Low 24-44 [facility] Comment on above: Performed By: #### B MP, IOCAL, CDP, PT, MG, SRAVANTHI ####[address] [phone] Director: Sarath Olivera MD Monocytes (Bld) [#/Vol] 0.52 10*3/uL Normal 0.1-0.8 [facility] Comment on above: Performed By: #### B MP, IOCAL, CDP, PT, MG, SRAVANTHI ####[place], [place] [address])[phone] Director: Sarath Olivera MD Monocytes/100 WBC (Bld) 5 % Normal 1-7 [facility] Comment on above: Performed By: #### B MP, IOCAL, CDP, PT, MG, SRAVANTHI ####[place], [place] [address])[phone] Director: Sarath Olivera MD Morphology Manoj (Bld) [Interp] Normal Normal [facility] Comment on above: Performed By: #### B MP, IOCAL, CDP, PT, MG, SRAVANTHI ####[address] [id number])[phone] Director: Sarath Olivera MD Neutrophil (Seg) 90 % High 36-66 [facility] Comment on above: Performed By: #### B MP, IOCAL, CDP, PT, MG, SRAVANTHI ####[address] [address])[phone] Director: Sarath Olivera MD Erythrocyte distribution width (RBC) [Ratio] 14.5 % High 11.8-14.4 [facility] Comment on above: Performed By: #### B MP, IOCAL, CDP, PT, MG, SRAVANTHI ####[address] [place] [address] Lab Director: Sarath Olivera MD Hematocrit (Bld) [Volume fraction] 26.9 % Low 36.3-47.1 [facility] Comment on above: Performed By: #### B MP, IOCAL, CDP, PT, MG, SRAVANTHI ####[facility] [address] [place] [address] Lab Director: Sarath Olivera MD Hemoglobin (Bld) [Mass/Vol] 9.0 g/dL Low 11.9-15.1 [facility] Comment on above: Performed By: #### B MP, IOCAL, CDP, PT, MG, SRAVANTHI ####[place] [address] Lab Director: Sarath Olivera MD MCH (RBC) [Entitic mass] 30.8 pg Normal 25.2-33.5 [facility] Comment on above: Performed By: #### B MP, IOCAL, CDP, PT, MG, SRAVANTHI ####[facility] [address] [place] [address] Lab Director: Sarath Olivera MD MCHC (RBC) [Mass/Vol] 33.5 g/dL Normal 28.4-34.8 [facility] Comment on above: Performed By: #### B MP, IOCAL, CDP, PT, MG, SRAVANTHI ####[facility] [address] [place] [address] Lab Director: Sarath Olivera MD MCV (RBC) [Entitic vol] 92.1 fL Normal 82.6-102.9 [facility] Comment on above: Performed By: #### B MP, IOCAL, CDP, PT, MG, SRAVANTHI ####[facility] [address] [place] [address] Lab Director: Sarath Olivera MD NRBC Automated 0.0 per 100 WBC Normal 0.0 [facility] Comment on above: Performed By: #### B MP, IOCAL, CDP, PT, MG, SRAVANTHI ####[address] [address])[phone] Director: Sarath Olivera MD Platelet mean volume (Bld) [Entitic vol] 12.9 fL Normal 8.1-13.5 [facility] Comment on above: Performed By: #### B MP, IOCAL, CDP, PT, MG, SRAVANTHI ####[address] [address])[phone] Director: Sarath Olivera MD Platelets (Bld) [#/Vol] 66 10*3/uL Low 138-453 [facility] Comment on above: Performed By: #### B MP, IOCAL, CDP, PT, MG, SRAVANTHI ####[place], [place] [address])[phone] Director: Sarath Olivera MD RBC (Bld) [#/Vol] 2.92 10*6/uL Low 3.95-5.11 [facility] Comment on above: Performed By: #### B MP, IOCAL, CDP, PT, MG, SRAVANTHI ####[place], [place] [address])[phone] Director: Sarath Olivera MD WBC (Bld) [#/Vol] 10.3 10*3/uL Normal 3.5-11.3 [facility] Comment on above: Performed By: #### B MP, IOCAL, CDP, PT, MG, SRAVANTHI ####[address] [address])[phone] Director: Sarath Olivera MD Abs. Basophil 0.00 k/uL Normal 0.00-0.20 [facility] Comment on above: Performed By: #### C DP ####[address] [address])[phone] Director: Sarath Olivera MD Abs.Imm.Granulocyte 0.00 k/uL Normal 0.00-0.30 [facility] Comment on above: Performed By: #### C DP ####[place], [place] [address])[phone] Director: Sarath Olivera MD Abs.Neutrophil (Seg) 12.38 k/uL High 1.50-8.10 [facility] Comment on above: Performed By: #### C DP ####[place], [place] [address])[phone] Director: Sarath Olivera MD Basophils/100 WBC (Bld) 0 % Normal 0-2 [facility] Comment on above: Performed By: #### C DP ####[place], [place] [address])[phone] Director: Sarath Olivera MD Eosinophils (Bld) [#/Vol] 0.00 10*3/uL Normal 0.00-0.44 [facility] Comment on above: Performed By: #### C DP ####[place], [place] [address])[phone] Director: Sarath Olivera MD Eosinophils/100 WBC (Bld) 0 % Low 1-4 [facility] Comment on above: Performed By: #### C DP ####[place], [place] [address])[phone] Director: Sarath Olivera MD Immature granulocytes/100 WBC (Bld) 0 % Normal 0 [facility] Comment on above: Performed By: #### C DP ####[place], [place] [address])[phone] Director: Sarath Olivera MD Lymphocytes (Bld) [#/Vol] 0.91 10*3/uL Low 1.10-3.70 [facility] Comment on above: Performed By: #### C DP ####[address], [place] [address]2419)[phone] Director: Sarath Olivera MD Lymphocytes/100 WBC (Bld) 6 % Low 24-43 [facility] Comment on above: Performed By: #### C DP ####[address] [id number])[phone] Director: Sarath Olivera MD Monocytes (Bld) [#/Vol] 1.81 10*3/uL High 0.10-1.20 [facility] Comment on above: Performed By: #### C DP ####[address] [id number])[phone] Director: Sarath Olivera MD Monocytes/100 WBC (Bld) 12 % Normal 3-12 [facility] Comment on above: Performed By: #### C DP ####[address] [address])[phone] Director: Sarath Olivera MD Morphology Manoj (Bld) [Interp] ANISOCYTOSIS PRESENT Normal [facility] Comment on above: Performed By: #### C DP ####[address] [id number])[phone] Director: Sarath Olivera MD Neutrophil (Seg) 82 % High 36-65 [facility] Comment on above: Performed By: #### C DP ####[address] [address])[phone] Director: Sarath Olivera MD Erythrocyte distribution width (RBC) [Ratio] 14.9 % High 11.8-14.4 [facility] Comment on above: Performed By: #### C DP ####[address] [address])[phone] Director: Sarath Olivera MD Hematocrit (Bld) [Volume fraction] 25.3 % Low 36.3-47.1 [facility] Comment on above: Performed By: #### C DP ####[address] [address] Lab Director: Sarath Olivera MD Hemoglobin (Bld) [Mass/Vol] 7.7 g/dL Low 11.9-15.1 [facility] Comment on above: Performed By: #### C DP ####[place], [place] [address])[phone] Director: Sarath Olivera MD MCH (RBC) [Entitic mass] 30.8 pg Normal 25.2-33.5 [facility] Comment on above: Performed By: #### C DP ####[place], [place] [address])[phone] Director: Sarath Olivera MD MCHC (RBC) [Mass/Vol] 30.4 g/dL Normal 28.4-34.8 [facility] Comment on above: Performed By: #### C DP ####[address] [address])[phone] Director: Sarath Olivera MD MCV (RBC) [Entitic vol] 101.2 fL Normal 82.6-102.9 [facility] Comment on above: Performed By: #### C DP ####[place], [place] [address])[phone] Director: Sarath Olivera MD NRBC Automated 0.0 per 100 WBC Normal 0.0 [facility] Comment on above: Performed By: #### C DP ####[place], [place] [address])[phone] Director: Sarath Olivera MD Platelet mean volume (Bld) [Entitic vol] 12.7 fL Normal 8.1-13.5 [facility] Comment on above: Performed By: #### C DP ####[place], [place] [address])[phone] Director: Sarath Olivera MD Platelets (Bld) [#/Vol] 97 10*3/uL Low 138-453 [facility] Comment on above: Performed By: #### C DP ####[address] [id number])[phone] Director: Sarath Olivera MD RBC (Bld) [#/Vol] 2.50 10*6/uL Low 3.95-5.11 [facility] Comment on above: Performed By: #### C DP ####[address] [address])[phone] Director: Sarath Olivera MD WBC (Bld) [#/Vol] 15.1 10*3/uL High 3.5-11.3 [facility] Comment on above: Performed By: #### C DP ####[address] [address])[phone] Director: Sarath Olivera MD Abs. Basophil 0.00 k/uL Normal 0.0-0.2 [facility] Comment on above: Performed By: #### JOSIE RUSSELLMIC #### [facility] [employer] [address] [place] [address] Rail B[employer]: Sarath Olivera MD Abs.Imm.Granulocyte 0.00 k/uL Normal 0.00-0.30 [facility] Comment on above: Performed By: #### Ashley CELESTE UAMIC #### [facility] [employer] [address] [place] [address] [employer]: Sarath Olivera MD Abs.Neutrophil (Seg) 17.28 k/uL High 1.8-7.7 [facility] Comment on above: Performed By: #### Ashley CELESTE UAMIC #### [facility] [employer] [address] [place] [address] [employer]: Sarath Olivera MD Basophils/100 WBC (Bld) 0 % Normal 0-2 [facility] Comment on above: Performed By: #### Ashley CELESTE UAMIC #### [address] [address] [employer]: Sarath Olivera MD Eosinophils (Bld) [#/Vol] 0.00 10*3/uL Normal 0.0-0.4 [facility] Comment on above: Performed By: #### Ashley CELESTE UAMIC #### [address] [address] [employer]: Sarath Olivera MD Eosinophils/100 WBC (Bld) 0 % Low 1-4 [facility] Comment on above: Performed By: #### Ashley CELESTE UAMIC #### [address] [address] [employer]: Sarath Olivera MD Immature granulocytes/100 WBC (Bld) 0 % Normal 0 [facility] Comment on above: Performed By: #### Ashley CELESTE UAMIC #### [address] [address] [employer]: Sarath Olivera MD Lymphocytes (Bld) [#/Vol] 1.41 10*3/uL Normal 1.0-4.8 [facility] Comment on above: Performed By: #### Ashley CELESTE UAMIC #### [address] [address] [employer]: Sarath Olivera MD Lymphocytes/100 WBC (Bld) 7 % Low 24-44 [facility] Comment on above: Performed By: #### Ashley CELESTE, UAMIC #### [address] [address] [employer]: Sarath Olivera MD Monocytes (Bld) [#/Vol] 1.41 10*3/uL High 0.1-0.8 [facility] Comment on above: Performed By: #### Ahsley AU, UAMIC #### [address] [address] [employer]: Sarath Olivera MD Monocytes/100 WBC (Bld) 7 % Normal 1-7 [facility] Comment on above: Performed By: #### Ashley AU, UAMIC #### [address] [address] [employer]: Sarath Olivera MD Morphology Manoj (Bld) [Interp] Normal Normal [facility] Comment on above: Performed By: #### Ashley AU, UAMIC #### [address] [address] [employer]: Sarath Olivera MD Neutrophil (Seg) 86 % High 36-66 [facility] Comment on above: Performed By: #### Ashley CELESTE, UAMIC #### [address] [address] [employer]: Sarath Olivera MD Platelet, Fluoresc. Platelet clumps present, count appears decreased. Normal 138-453 [facility] Comment on above: Performed By: #### Ashley AU, UAMIC #### [address] [address] [employer]: Sarath Olivera MD Erythrocyte distribution width (RBC) [Ratio] 14.6 % High 11.8-14.4 [facility] Comment on above: Performed By: #### Ashley AU, UAMIC #### [facility] [employer] [address] [place] [address] Rail [employer]: Sarath Olivera MD Hematocrit (Bld) [Volume fraction] 29.0 % Low 36.3-47.1 [facility] Comment on above: Performed By: #### Ashley AU, UAMIC #### [facility] [employer] [address] [place] [address] Rail Bender: Sarath Olivera MD Hemoglobin (Bld) [Mass/Vol] 9.2 g/dL Low 11.9-15.1 [facility] Comment on above: Performed By: #### Ashley CELESTE UAMIC #### [address] [address] Rail [employer]: Sarath Olivera MD MCH (RBC) [Entitic mass] 31.0 pg Normal 25.2-33.5 [facility] Comment on above: Performed By: #### Ashley CELESTE UAMIC #### [address] [address] [employer]: Sarath Olivera MD MCHC (RBC) [Mass/Vol] 31.7 g/dL Normal 28.4-34.8 [facility] Comment on above: Performed By: #### Ashley CELESTE UAMIC #### [address] [address] Rail B[employer]: Sarath Olivera MD MCV (RBC) [Entitic vol] 97.6 fL Normal 82.6-102.9 [facility] Comment on above: Performed By: #### Ashley CELESTE UAMIC #### [address] [address] Rail [employer]: Sarath Olivera MD NRBC Automated 0.0 per 100 WBC Normal 0.0 [facility] Comment on above: Performed By: #### Ashley CELESTE UAMIC #### [address] [address] Rail [employer]ender: Sarath Olivera MD Platelet Count See Reflexed IPF Result Normal 138-453 [facility] Comment on above: Performed By: #### Ashley CELESTE UAMIC #### [address] [address] Rail [employer]: Sarath Olivera MD RBC (Bld) [#/Vol] 2.97 10*6/uL Low 3.95-5.11 [facility] Comment on above: Performed By: #### D BOOKER UAMIC #### [place] [address] [employer]: Sarath Olivera MD WBC (Bld) [#/Vol] 20.1 10*3/uL High 3.5-11.3 [facility] Comment on above: Performed By: #### D BOOKER UAMIC #### [place] [address] [employer]: Sarath Olivera MD Abs. Basophil 0.00 k/uL Normal 0.0-0.2 [facility] Comment on above: Performed By: #### B C #### [place] [address] [employer] Bender: Sarath Olivera MD Abs.Imm.Granulocyte 0.00 k/uL Normal 0.00-0.30 [facility] Comment on above: Performed By: #### B C #### [place] [address] [employer]: Sarath Olivera MD Abs.Neutrophil (Seg) 16.68 k/uL High 1.8-7.7 [facility] Comment on above: Performed By: #### B C #### [place] [address] [employer]: Sarath Olivera MD Basophils/100 WBC (Bld) 0 % Normal 0-2 [facility] Comment on above: Performed By: #### B C #### [place] [address] [employer]: Sarath Olivera MD Eosinophils (Bld) [#/Vol] 0.00 10*3/uL Normal 0.0-0.4 [facility] Comment on above: Performed By: #### B C #### [address] [address] Rail Bender: Sarath Olivera MD Eosinophils/100 WBC (Bld) 0 % Low 1-4 [facility] Comment on above: Performed By: #### B C #### [address] [address] Rail Bender: Sarath Olivera MD Immature granulocytes/100 WBC (Bld) 0 % Normal 0 [facility] Comment on above: Performed By: #### B C #### [address] [address] Rail [employer]: Sarath Olivera MD Lymphocytes (Bld) [#/Vol] 1.01 10*3/uL Normal 1.0-4.8 [facility] Comment on above: Performed By: #### B C #### [address] [address] Rail [employer]ender: Sarath Olivera MD Lymphocytes/100 WBC (Bld) 5 % Low 24-44 [facility] Comment on above: Performed By: #### B C #### [address] [address] Rail Bender: Sarath Olivera MD Monocytes (Bld) [#/Vol] 2.41 10*3/uL High 0.1-0.8 [facility] Comment on above: Performed By: #### B C #### [address] [address] Rail Bender: Sarath Olivera MD Monocytes/100 WBC (Bld) 12 % High 1-7 [facility] Comment on above: Performed By: #### B C #### [address] [address] Rail Bender: Sarath Olivera MD Morphology Manoj (Bld) [Interp] MACROCYTOSIS PRESENT Normal [facility] Comment on above: Performed By: #### B C #### [address] [address] Rail [employer]: Sarath Olivera MD Neutrophil (Seg) 83 % High 36-66 [facility] Comment on above: Performed By: #### B C #### [address] [address] Rail Bender: Sarath Olivera MD Erythrocyte distribution width (RBC) [Ratio] 14.5 % High 11.8-14.4 [facility] Comment on above: Performed By: #### B C #### [address] [address] Rail Bender: Sarath Olivera MD Hematocrit (Bld) [Volume fraction] 34.4 % Low 36.3-47.1 [facility] Comment on above: Performed By: #### B C #### [address] [address] Rail Bender: Sarath Olivera MD Hemoglobin (Bld) [Mass/Vol] 10.2 g/dL Low 11.9-15.1 [facility] Comment on above: Performed By: #### B C #### [address] [address] Rail Bender: Sarath Olivera MD MCH (RBC) [Entitic mass] 31.2 pg Normal 25.2-33.5 [facility] Comment on above: Performed By: #### B C #### [address] [address] Rail Bender: Sarath Olivera MD MCHC (RBC) [Mass/Vol] 29.7 g/dL Normal 28.4-34.8 [facility] Comment on above: Performed By: #### B C #### [address] [address] Rail Bender: Sarath Olivera MD MCV (RBC) [Entitic vol] 105.2 fL High 82.6-102.9 [facility] Comment on above: Performed By: #### B C #### [address] [address] Rail Bender: Sarath Olivera MD NRBC Automated 0.0 per 100 WBC Normal 0.0 [facility] Comment on above: Performed By: #### B C #### [address] [address] Rail Bender: Sarath Olivera MD Platelet mean volume (Bld) [Entitic vol] 12.8 fL Normal 8.1-13.5 [facility] Comment on above: Performed By: #### B C #### [address] [address] Rail Bender: Sarath Olivera MD Platelets (Bld) [#/Vol] 126 10*3/uL Low 138-453 [facility] Comment on above: Performed By: #### B C #### [address] [address] Rail Bender: Sarath Olivera MD RBC (Bld) [#/Vol] 3.27 10*6/uL Low 3.95-5.11 [facility] Comment on above: Performed By: #### B C #### [address] [address] Rail Bender: Sarath Olivera MD WBC (Bld) [#/Vol] 20.1 10*3/uL High 3.5-11.3 [facility] Comment on above: Performed By: #### B C #### [address] [address] Rail Bender: Sarath Olivera MD CT CHEST ABDOMEN PELVIS [facility] 01-06-2024 CT CHEST ABDOMEN PELVIS WO CONTRAST [...] Pierre Cao MD 01/06/24 Final result Normal [facility] CT CYSTOGRAM W CONTRASTon CT CYSTOGRAM [...] Jose Todd MD 01/06/24 Final result Normal [facility] CT HEAD WO CONTRASTon 2023 CT [...] Lucian Dee MD 01/06/24 Final result Normal [facility] Calcium, Ionicon 01-06-2024 Calcium [Moles/Vol] 1.14 mmol/L Normal 1.13-1.33 [facility] Comment on above: Performed By: #### B MP, IOCAL, CDP, PT, MG, SRAVANTHI ####[facility] [address] [place], [place] [id number] Lab Director: Sarath Olivera MD Calcium [Moles/Vol] 1.45 mmol/L High 1.13-1.33 [facility] Comment on above: Performed By: #### I OCAL, LACTIC, OHP ####[facility] [address] [place], [place] [id number] Lab Director: Sarath Olivera MD Calcium [Moles/Vol] 1.07 mmol/L Low 1.13-1.33 [facility] Comment on above: Performed By: #### B C #### [address] [address] Rail Bender: Sarath Olivera MD Calcium [Moles/Vol] 1.07 mmol/L Low 1.13-1.33 [facility] Comment on above: Performed By: #### I OCAL ####[address] [address] Lab Director: Sarath Olivera MD Calcium [Moles/Vol] 1.09 mmol/L Low 1.13-1.33 [facility] Comment on above: Performed By: #### B C #### [address] [address] Rail Bender: Sarath Olivera MD Creatinine,Random Uron 01-05 Creatinine [Mass/Vol] 155.0 mg/dL Normal 28.0-217.0 [facility] Comment on above: Performed By: #### U RNA, URCRE, CLARENCE ####[address] [address] Lab Director: Sarath Olivera MD Drug Scr, Abuse, Uron 2023 Fentanyl, Urine Sent to reference laboratory. Separate report to follow. Abnormal NEG [facility] Comment on above: Performed By: #### U RNA, URCRE, CLARENCE ####[address] [address] Lab Director: Sarath Olivera MD Interpretive Info Assay provides rapid clinical screening only. Presumptive positive results for Normal [facility] Comment on above: Result Comment: lega l purposes should be confirmed by another method. To request confirmation, please call the lab within 7 days of sample submission. Performed By: #### U RNA, URCRE, CLARENCE ####[address] [address] Lab Director: Sarath Olivera MD Opiate(s), Ur Positive Abnormal NEG [facility] Comment on above: Result Comment: Cuto ff: 300 ng/ml Performed By: #### U RNA, URCRE, CLARENCE ####[facility] [address] [place] [address] Lab Director: Sarath Olivera MD Oxycodone, Urine Sent to reference laboratory. Separate report to follow. Abnormal NEG [facility] Comment on above: Performed By: #### U RNA, URCRE, CLARENCE ####[facility] [address] [place] [address] Lab Director: Sarath Olivera MD Amphetamine(s),Ur Negative Normal NEG [facility] Comment on above: Result Comment: Cuto ff: 1000 ng/mL Performed By: #### U RNA, URCRE, CLARENCE ####[facility] [address] [place] [address] Lab Director: Sarath Olivera MD Barbiturate(s),Ur Negative Normal NEG [facility] Comment on above: Result Comment: Cuto ff: 200 ng/ml Performed By: #### U RNA, URCRE, CLARENCE ####[facility] [address] [place] [address] Lab Director: Sarath Olivera MD Benzodiazepine(s) Negative Normal NEG [facility] Comment on above: Result Comment: Cuto ff: 200 ng/ml Performed By: #### U RNA, URCRE, CLARENCE ####[facility] [address] [place] [address] Lab Director: Sarath Olivera MD Cannabinoid(s),Ur Negative Normal NEG [facility] Comment on above: Result Comment: Cuto ff: 50 ng/ml Performed By: #### U RNA, URCRE, CLARENCE ####[facility] [address] [place] [address] Lab Director: Sarath Olivera MD Cocaine Metabolite Negative Normal NEG [facility] Comment on above: Result Comment: Cuto ff: 300 ng/ml Performed By: #### U RNA, URCRE, CLARENCE ####[facility] [address] [place] [address] Lab Director: Sarath Olivera MD Methadone Ql (U) Negative Normal NEG [facility] Comment on above: Result Comment: Cuto ff: 300 ng/ml Performed By: #### U RNA, URCRE, CLARENCE ####[address] [address] Lab Director: Sarath Olivera MD Phencyclidine, Ur Negative Normal NEG [facility] Comment on above: Result Comment: Cuto ff: 25 ng/ml Performed By: #### U RNA, URCRE, CLARENCE ####[facility] [address] [place] [address] Lab Director: Sarath Olivera MD FLUORO FOR SURGICAL PROCEDUR ESon 01-06-2024 FLUORO FOR SURGICAL PROCEDURES Radiology exam is complete. No Radiologist dictation. Please follow up with ordering provider. Final result Normal [facility] Gl Hemostasis TEG w/Lysison 01-06-2024 Fibrinogen, Func TEG 20.5 mm Normal 15.0-32.0 [facility] Comment on above: Performed By: #### D AU UAMIC #### [facility] [employer] [address] [place] [address] Rail Bender: Sarath Olivera MD LY30 (Lysis) TEG 0.4 % Normal 0.0-2.6 [facility] Comment on above: Performed By: #### D AU, UAMIC #### [facility] [employer] [address] [place] [address] Rail Bender: Sarath Olivera MD MA Rapid TEG 61.6 mm Normal 52.0-70 [facility] Comment on above: Performed By: #### D AU, UAMIC #### [address] [address] Rail Bender: Sarath Olivera MD R(Reaction Time) TEG 6.0 min Normal 4.6-9.1 [facility] Comment on above: Performed By: #### D AU, UAMIC #### [address] [address] Rail Bender: Sarath Olivera MD Fibrinogen, Func TEG 21.6 mm Normal 15.0-32.0 [facility] Comment on above: Performed By: #### B C #### [address] [address] Rail Bender: Sarath Olivera MD LY30 (Lysis) TEG 0.1 % Normal 0.0-2.6 [facility] Comment on above: Performed By: #### B C #### [address] [address] Rail Bender: Sarath Olivera MD MA Rapid TEG 62.3 mm Normal 52.0-70.0 [facility] Comment on above: Performed By: #### B C #### [address] [address] Rail Bender: Sarath Olivera MD R(Reaction Time) TEG 5.7 min Normal 4.6-9.1 [facility] Comment on above: Performed By: #### B C #### [address] [address] Rail Bender: Sarath Olivera MD Glucose (POC)on 01-06-2024 Glucose [Mass/Vol] 150 mg/dL High 74-100 [facility] Glucose [Mass/Vol] 146 mg/dL High 74-100 [facility] Glucose [Mass/Vol] 164 mg/dL High 74-100 [facility] Glucose,Whole Bloodon 2023 Glucose [Mass/Vol] 155 mg/dL High 65-105 [facility] Hemoglobin A1Con 01-06-2024 Glucose [Mass/Vol] 111 mg/dL Normal [facility] Comment on above: Result Comment: The ADA and AACC recommend providing the estimated average glucose result to permit better patient understanding of their HBA1c result. Performed By: #### D BOOKER UAMIC #### [employer] [address] [place] [address] Rail Bender: Sarath Olivera MD HbA1c (Bld) [Mass fraction] 5.5 % Normal 4.0-6.0 [facility] Comment on above: Performed By: #### D BOOKER UAMIC #### [employer] [address] [place] [address] Rail Bender: Sarath Olivera MD Hgb/Hcton 01-06-2024 Hematocrit (Bld) [Volume fraction] 29.1 % Low 36.3-47.1 [facility] Comment on above: Performed By: #### A LB, FT4, TSHX, GLYHGB, HH, VD25 ####[employer] [address] [place] [address] Lab Director: Sarath Olivera MD Hemoglobin (Bld) [Mass/Vol] 8.6 g/dL Low 11.9-15.1 [facility] Comment on above: Performed By: #### A LB, FT4, TSHX, GLYHGB, HH, VD25 ####[facility] [address] [place] [address] Lab Director: Sarath Olivera MD Lactate, Sepsison 01-06-2024 Lactic Acid,Sep Wbld 7.4 mmol/L High 0.5-1.9 [facility] Comment on above: Performed By: #### B C #### [employer] [address] [place] [address] Rail Bender: Sarath Olivera MD Lactic Acidon 01-06-2024 Lactic Acid,Whole Bl 2.8 mmol/L High 0.7-2.1 [facility] Comment on above: Performed By: #### I OCAL LACTIC, OHP ####[facility] [address] [place], [place] [phone] Lab Director: Sarath Olivera MD Lactic Acid,Whole Bl 1.8 mmol/L Normal 0.7-2.1 [facility] Comment on above: Performed By: #### B C #### [facility] [employer] [address] [place] [address] Rail Bender: Sarath Olivera MD Lactic Acid (POC)on 01-06-20 24 Lactate [Moles/Vol] 1.3 mmol/L Normal 0.56-1.39 [facility] Lactate [Moles/Vol] 1.5 mmol/L High 0.56-1.39 [facility] Lactate [Moles/Vol] 1.7 mmol/L High 0.56-1.39 [facility] Lactate [Moles/Vol] 7.2 mmol/L High 0.56-1.39 [facility] Liver Profileon 01-06-2024 Albumin [Mass/Vol] 3.0 g/dL Low 3.5-5.2 [facility] Comment on above: Performed By: #### L MARY ALCB #### [employer] [address] [place] [address] Rail Bender: Sarath Olivera MD Albumin/Glob Ratio 2.0 Normal 1.0-2.5 [facility] Comment on above: Performed By: #### L ACTMARILIN ALCB #### [employer] [address] [place] [address] Rail Bender: Sarath Olivera MD Alkaline Phos 61 U/L Normal 35-104 [facility] Comment on above: Performed By: #### L ACTMARILIN, ALCB #### [facility] [employer] [address] [place] [address] Rail Bender: Sarath Olivera MD ALT [Catalytic activity/Vol] 19 U/L Normal [address] [place] [address] Comment on above: Performed By: #### L ACTIC, ALCB #### [facility] [employer] [address] [place] [address] Rail Bender: Sarath Olivera MD AST [Catalytic activity/Vol] 62 U/L High 10-35 [facility] Comment on above: Performed By: #### L ACTIC, ALCB #### [facility] [employer] [address] [place] [address] Rail Bender: Sarath Olivera MD Bilirubin [Mass/Vol] 0.3 mg/dL Normal 0.00-1.20 [facility] Comment on above: Performed By: #### L ACTIC, ALCB #### [facility] [employer] [address] [place] [address] Rail Bender: Sarath Olivera MD Bilirubin, Indirect Can not be calculated Normal 0.0-1 .0 [facility] Comment on above: Performed By: #### L ACTIC, ALCB #### [facility] [employer] [address] [place] [address] Rail Bender: Sarath Olivera MD Bilirubin.indirect [Mass/Vol] mg/dL Normal 0.00-0.30 [facility] Comment on above: Performed By: #### L ACTIC, ALCB #### [facility] [employer] [address] [place] [address] Rail Bender: Sarath Olivera MD Globulin (S) [Mass/Vol] 1.8 g/dL Normal [facility] Comment on above: Performed By: #### L ACTIC, ALCB #### [facility] [employer] [address] [place] [address] Rail Bender: Sarath Olivera MD Protein [Mass/Vol] 4.8 g/dL Low 6.6-8.7 [facility] Comment on above: Performed By: #### L ACTIC, ALCB #### [facility] [address] [place] [address] Rail Bender: Sarath Olivera MD Magnesiumon 7 Magnesium [Mass/Vol] 1.9 mg/dL Normal 1.6-2.4 [facility] Comment on above: Performed By: #### B MP, IOCAL, CDP, PT, MG, SRAVANTHI ####[facility] [address] [place] [address])[phone] Director: Sarath Olivera MD Magnesium [Mass/Vol] 1.6 mg/dL Normal 1.6-2.4 [facility] Comment on above: Performed By: #### D AU, UAMIC #### [facility] [employer] [address] [place] [address] Rail Bender: Sarath Olivera MD Magnesium [Mass/Vol] 1.8 mg/dL Normal 1.6-2.4 [facility] Comment on above: Result Comment: QA F LAGS AND/OR RANGES MODIFIED BY DEMOGRAPHIC UPDATE ON 01/05 AT 0131 Performed By: #### B C #### [facility] [employer] [facility] [place] [address] Rail Bender: Sarath Olivera MD Open Heart Panelon 4 Jerrell Test INFORMATION NOT PROVIDED Normal [facility] Comment on above: Performed By: #### I OCAL, LACTIC, OHP ####[facility] [address] [place], [place] [phone] Director: Sarath Olivera MD Body Temp. 37.0 Normal [facility] Comment on above: Performed By: #### I OCAL, LACTIC, OHP ####[facility] [address] [place] [address] Lab Director: Sarath Olivera MD Carboxy Hgb 0.8 % Normal 0-5 [facility] Comment on above: Result Comment: Reference Range: Non-Smokers 0-2% Average Smoker 2-4% Heavy Smoker <10% Performed By: #### I OCAL, LACTIC, OHP ####[facility] [address] [place], [place] [phone] Director: Sarath Olivera MD Chloride [Moles/Vol] 116 mmol/L High 98-110 [facility] Comment on above: Performed By: #### I OCAL, LACTIC, OHP ####[facility] [address] [place], [place] [phone] Director: Sarath Olivera MD FIO2 50% Normal [facility] Comment on above: Performed By: #### I OCAL, LACTIC, OHP ####[facility] [address] [place], [place] [phone] Director: Sarath Olivera MD Glucose [Mass/Vol] 138 mg/dL High 65-105 [facility] Comment on above: Performed By: #### I OCAL, LACTIC, OHP ####[facility] [address] [place], [place] [phone] Director: Sarath Olivera MD HCO3 (Bld) [Moles/Vol] 19.3 mmol/L Low 22-27 [facility] Comment on above: Performed By: #### I OCAL, LACTIC, OHP ####[facility] [address] [place], [place] [phone] Director: Sarath Olivera MD Hematocrit (Bld) [Volume fraction] 25.5 % Low 36.3-47.1 [facility] Comment on above: Performed By: #### I OCAL, LACTIC, OHP ####[facility] [address] [place] [address] Lab Director: Sarath Olivera MD Hemoglobin (Bld) [Mass/Vol] 8.2 g/dL Low 11.9-15.1 [facility] Comment on above: Performed By: #### I OCAL, LACTIC, OHP ####[facility] [address] [place], [place] [phone] Director: Sarath Olivera MD Negative Base Excess 6.1 mmol/L High 0.0-2.0 [facility] Comment on above: Performed By: #### I OCAL, LACTIC, OHP ####[facility] [address] [place], [place] [phone] Director: Sarath Olivera MD Oxygen (Bld) [Partial pressure] 106.0 mm[Hg] High 75-95 [facility] Comment on above: Performed By: #### I OCAL, LACTIC, OHP ####[facility] [address] [place], [place] [phone] Director: Sarath Olivera MD Oxygen saturation in Blood 97.7 % Normal 94-100 [facility] Comment on above: Performed By: #### I OCAL, LACTIC, OHP ####[facility] [address] [place], [place] [phone] Director: Sarath Olivera MD pCO2 40.0 mmHg Normal 32-45 [facility] Comment on above: Performed By: #### I OCAL, LACTIC, OHP ####[facility] [address] [place], [place] [phone] Director: Sarath Olivera MD pH (Bld) 7.304 [pH] Low 7.350-7.450 [facility] Comment on above: Performed By: #### I OCAL, LACTIC, OHP ####[facility] [address] [place], [place] [phone] Director: Sarath Olivera MD Potassium [Moles/Vol] 4.6 mmol/L Normal 3.6-5.0 [facility] Comment on above: Performed By: #### I OCAL, LACTIC, OHP ####[facility] [address] [place] [address] Lab Director: Sarath Olivera MD Sodium [Moles/Vol] 142 mmol/L Normal 136-145 [facility] Comment on above: Performed By: #### I OCAL, LACTIC, OHP ####[address] [address] Lab Director: Sarath Olivera MD Jerrell Test INFORMATION NOT PROVIDED [facility] Comment on above: Performed By: #### B C #### [address] [address] Rail Bender: Sarath Olivera MD Body Temp. 36.0 Normal [facility] Comment on above: Performed By: #### B C #### [address] [address] Rail Bender: Sarath Olivera MD Carboxy Hgb 1.6 % Normal 0-5 [facility] Comment on above: Result Comment: Reference Range: Non-Smokers 0-2% Average Smoker 2-4% Heavy Smoker <10% Performed By: #### B C #### [address] [address] Rail Bender: Sarath Olivera MD Chloride [Moles/Vol] 115 mmol/L High 98-110 [facility] Comment on above: Performed By: #### B C #### [address] [address] Rail Bender: Sarath Olivera MD FIO2 70% Normal [facility] Comment on above: Performed By: #### B C #### [address] [address] Rail Bender: Sarath Olivera MD Glucose [Mass/Vol] 138 mg/dL High 65-105 [facility] Comment on above: Performed By: #### B C #### [address] [address] Rail Bender: Sarath Olivera MD HCO3 (Bld) [Moles/Vol] 17.8 mmol/L Low 22-27 [facility] Comment on above: Performed By: #### B C #### [address] [address] Rail Bender: Sarath Olivera MD Hematocrit (Bld) [Volume fraction] 25.6 % Low 36.3-47.1 [facility] Comment on above: Performed By: #### B C #### [address] [address] Rail Bender: Sarath Olivera MD Hemoglobin (Bld) [Mass/Vol] 8.2 g/dL Low 11.9-15.1 [facility] Comment on above: Performed By: #### B C #### [address] [address] Rail Bender: Sarath Olivera MD Negative Base Excess 8.4 mmol/L High 0.0-2.0 [facility] Comment on above: Performed By: #### B C #### [address] [address] Rail Bender: Sarath Olivera MD Oxygen (Bld) [Partial pressure] 102.0 mm[Hg] High 75-95 [facility] Comment on above: Performed By: #### B C #### [address] [address] Rail Bender: Sarath Olivera MD Oxygen saturation in Blood 96.8 % Normal 94-100 [facility] Comment on above: Performed By: #### B C #### [address] [address] Rail Bender: Sarath Olivera MD pCO2 42.6 mmHg Normal 32-45 [facility] Comment on above: Performed By: #### B C #### [address] [address] Rail Bender: Sarath Olivera MD pH (Bld) 7.246 [pH] Low 7.350-7.450 [facility] Comment on above: Performed By: #### B C #### [address] [address] Rail Bender: Sarath Olivera MD Potassium [Moles/Vol] 4.5 mmol/L Normal 3.6-5.0 [facility] Comment on above: Performed By: #### B C #### [address] [address] Rail Bender: Sarath Olivera MD Sodium [Moles/Vol] 140 mmol/L Normal 136-145 [facility] Comment on above: Performed By: #### B C #### [address] [address] Rail Bender: Sarath Olivera MD PTon 01-06-2024 INR Coag (PPP) [Relative time] 1.4 {INR} Normal [facility] Comment on above: Result Comment: Therapeutic Range: Moderate Anticoagulant Intensity: INR = 2.0-3.0 High Anticoagulant Intensity: INR = 2.5-3.5 Performed By: #### B MP, IOCAL, CDP, PT, MG, SRAVANTHI ####[address] [address] Lab Director: Sarath Olivera MD PT Coag (PPP) [Time] 17.3 s High 11.7-14.9 [facility] Comment on above: Performed By: #### B MP, IOCAL, CDP, PT, MG, SRAVANTHI ####[place] [address] [place] [address] Lab Director: Sarath Olivera MD INR Coag (PPP) [Relative time] 1.6 {INR} Normal [facility] Comment on above: Result Comment: Therapeutic Range: Moderate Anticoagulant Intensity: INR = 2.0-3.0 High Anticoagulant Intensity: INR = 2.5-3.5 Performed By: #### RIOS SANZ #### [facility] [address] [place] [address] Rail Bender: Sarath Olivera MD PT Coag (PPP) [Time] 18.4 s High 11.7-14.9 [facility] Comment on above: Performed By: #### L MELANY HERNANDEZB #### [facility] [address] [place] [address] Rail Bender: Sarath Olivera MD INR Coag (PPP) [Relative time] 1.5 {INR} Normal [facility] Comment on above: Result Comment: Therapeutic Range: Moderate Anticoagulant Intensity: INR = 2.0-3.0 High Anticoagulant Intensity: INR = 2.5-3.5 Performed By: #### Ashley CELESTE UAMIC #### [facility] [employer] [address] [place] [address] Rail Bender: Sarath Olivera MD PT Coag (PPP) [Time] 17.8 s High 11.7-14.9 [facility] Comment on above: Performed By: #### D BOOKER UAMIC #### [facility] [address] [place] [address] Rail Bender: Sarath Olivera MD Phosphorus, Inorg.on 024 Phosphorus, Inorg. 3.2 mg/dL Normal 2.5-4.5 [facility] Comment on above: Performed By: #### B MP, IOCAL, CDP, PT, MG, SRAVANTHI ####[facility] [address] [place] [address] Lab Director: Sarath Olivera MD Phosphorus, Inorg. 4.7 mg/dL High 2.5-4.5 [facility] Comment on above: Performed By: #### D AU, UAMIC #### [facility] [address] [place] [address] Rail Bender: Sarath Olivera MD Phosphorus, Inorg. 4.7 mg/dL High 2.5-4.5 [facility] Comment on above: Performed By: #### B C #### [facility] [employer] [facility] [place] [address] Rail Bender: Sarath Olivera MD Sodium, Random Uron 01-06-20 24 Sodium (U) [Moles/Vol] 25 mmol/L Normal [facility] Comment on above: Result Comment: No n ormal range established. Performed By: #### U RNA, URCRE, CLARENCE ####[facility] [address] [place] [address] Lab Director: Sarath Olivera MD TSH w/reflex to FT4on 2023 Thyroid Stim. Horm. 3.13 uIU/mL Normal 0.27-4.20 [facility] Comment on above: Performed By: #### A LB, FT4, TSHX, GLYHGB, HH, VD25 ####[facility] [address] [place] [address] Lab Director: Sarath Olivera MD Thyroxine, Freeon 01-06-2024 Thyroxine, Free 0.9 ng/dL Low 0.92-1.68 [facility] Comment on above: Performed By: #### A LB, FT4, TSHX, GLYHGB, HH, VD25 ####[facility] [address] [place] [address] Lab Director: Sarath Olivera MD Troponinon 01-06-2024 Troponin, High Sens 114 ng/L Critically high 0-14 [facility] Comment on above: Result Comment: High Sensitivity Troponin values cannot be compared with other Troponin methodologies. Performed By: #### L MELANY HERNANDEZB #### [facility] [employer] [address] [place] [address] Rail B[employer]: Sarath Olivera MD Type + Screenon 01-06-2024 Type + Screen Sample Expiration 01/08/2024,2359 Arm Band Number [id number] ABO/Rh(D) O POSITIVE Antibody Screen NEGATIVE Unit Number [id number] Blood Component Type Leukocyte Reduced Red Cell Unit Division 00 Status of Unit TRANSFUSED Transfusion Status OK TO TRANSFUSE Crossmatch Result COMPATIBLE Unit Number [id number] Blood Component Type Leukocyte Reduced Red Cell Unit Division 00 Status of Unit TRANSFUSED Transfusion Status OK TO TRANSFUSE Crossmatch Result COMPATIBLE Normal [facility] Comment on above: Performed By: #### B C #### [facility] [employer] [address] [place] [address] Rail B[employer]: Sarath Olivera MD Vitamin B12on 01-06-2024 Cobalamin (Vitamin B12) [Mass/Vol] 253 pg/mL Normal 232-1245 [facility] Comment on above: Performed By: #### B C #### [facility] [employer] [address] [place] [address] Rail Bender: Sarath Olivera MD Vitamin D 25 OHon 01-06-2024 Vitamin D 25 [place] 34.7 ng/mL Normal 30.0-100.0 [facility] Comment on above: Result Comment: Reference Range: Vitamin D status Range Deficiency <20 ng/mL Mild Deficiency 20-30 ng/mL Sufficiency 30-100 ng/mL Toxicity >100 ng/mL Performed By: #### D AU, UAMIC #### [address] [address] Rail Bender: Sarath Olivera MD Vitamin D 25 [place] 34.3 ng/mL Normal 30.0-100.0 [facility] Comment on above: Result Comment: Reference Range: Vitamin D status Range Deficiency <20 ng/mL Mild Deficiency 20-30 ng/mL Sufficiency 30-100 ng/mL Toxicity >100 ng/mL Performed By: #### L ACTIC, ALCB #### [facility] [employer] [facility] [place] [phone] Rail Bender: Sarath Olivera MD XR CHEST PORTABLEon 01-06-20 [...] Chevy Parra MD 01/06/24 Final result Normal [facility] XR CHEST PORTABLE EXAMINATION: ONE XRAY [...] Concepción Godoy MD 01/06/24 Final result Normal [facility] XR FEMUR RIGHT (MIN 2 VIEWS) [...] Chevy Parra MD 01/06/24 Final result Normal [facility] XR SHOULDER LEFT (MIN 2 VIEW [...] Chevy Parra MD 01/06/24 Final result Normal [facility] Basic Metabolic Profon 01-04 Anion gap [Moles/Vol] 16 mmol/L Normal 9-16 [facility] Comment on above: Performed By: #### D AU, UAMIC #### [facility] [employer] [facility] [place] [address] Rail Bender: Sarath Olivera MD Calcium [Mass/Vol] 6.3 mg/dL Low 8.6-10.4 [facility] Comment on above: Performed By: #### D AU, UAMIC #### [facility] [address] [place] [address] Rail Bender: Sarath Olivera MD Chloride [Moles/Vol] 115 mmol/L High 98-107 [facility] Comment on above: Performed By: #### D AU, UAMIC #### [facility] [address] [place] [address] Rail Bender: Sarath Olivera MD CO2 [Moles/Vol] 13 mmol/L Low 20-31 [facility] Comment on above: Performed By: #### Ashley CELESTE, UAMIC #### [facility] [address] [place] [address] Rail Bender: Sarath Olivera MD Creatinine [Mass/Vol] 1.3 mg/dL High 0.50-0.90 [facility] Comment on above: Performed By: #### Ashley CELESTE, UAMIC #### [address] [address] Rail Bender: Sarath Olivera MD GFR/1.73 sq M.predicted among non-blacks MDRD (S/P/Bld) [Vol rate/Area] 29 mL/min/{1.73_m2} Low >60 [facility] Comment on above: Result Comment: These [...] Performed By: #### Ashley AU, UAMIC #### [address] [address] Rail Bender: Sarath Olivera MD Glucose [Mass/Vol] 174 mg/dL High 74-99 [facility] Comment on above: Performed By: #### Ashlye CELESTE UAMIC #### [facility] [employer] [address] [place] [address] Rail Bender: Sarath Olivera MD Potassium [Moles/Vol] 3.4 mmol/L Low 3.7-5.3 [facility] Comment on above: Result Comment: SPEC IMEN SLIGHTLY HEMOLYZED, RESULTS MAY BE ADVERSELY AFFECTED. Performed By: #### Ashley CELESTE UAMIC #### [facility] [employer] [address] [place] [address] Rail Bender: Sarath Olivera MD Sodium [Moles/Vol] 144 mmol/L Normal 136-145 [facility] Comment on above: Performed By: #### Ashley CELESTE UAMIC #### [facility] [employer] [address] [place] [address] Rail Bender: Sarath Olivera MD Urea nitrogen [Mass/Vol] 23 mg/dL Normal 8-23 [facility] Comment on above: Performed By: #### Ashley CELESTE UAMIC #### [facility] [employer] [address] [place] [address] Rail Bender: Sarath Olivera MD CBCon 01-05-2024 Erythrocyte distribution width (RBC) [Ratio] 14.4 % Normal 11.8-14.4 [facility] Comment on above: Performed By: #### B C #### [facility] [employer] [address] [place] [address] Rail Bender: Sarath Olivera MD Hematocrit (Bld) [Volume fraction] 31.8 % Low 36.3-47.1 [facility] Comment on above: Performed By: #### B C #### [facility] [employer] [address] [place] [address] Rail Bender: Sarath Olivera MD Hemoglobin (Bld) [Mass/Vol] 9.9 g/dL Low 11.9-15.1 [facility] Comment on above: Performed By: #### B C #### [address] [address] Rail Bender: Sarath Olivera MD MCH (RBC) [Entitic mass] 31.2 pg Normal 25.2-33.5 [facility] Comment on above: Performed By: #### B C #### [address] [address] Rail Bender: Sarath Olivera MD MCHC (RBC) [Mass/Vol] 31.1 g/dL Normal 28.4-34.8 [facility] Comment on above: Performed By: #### B C #### [address] [address] Rail Bender: Sarath Olivera MD MCV (RBC) [Entitic vol] 100.3 fL Normal 82.6-102.9 [facility] Comment on above: Performed By: #### B C #### [address] [address] Rail Bender: Sarath Olivera MD NRBC Automated 0.0 per 100 WBC Normal 0.0 [facility] Comment on above: Performed By: #### B C #### [address] [address] Rail Bender: Sarath Olivera MD Platelet mean volume (Bld) [Entitic vol] 12.8 fL Normal 8.1-13.5 [facility] Comment on above: Performed By: #### B C #### [address] [address] Rail Bender: Sarath Olivera MD Platelets (Bld) [#/Vol] 146 10*3/uL Normal 138-453 [facility] Comment on above: Performed By: #### B C #### [address] [address] Rail Bender: Sarath Olivera MD RBC (Bld) [#/Vol] 3.17 10*6/uL Low 3.95-5.11 [facility] Comment on above: Performed By: #### B C #### [employer] [address] [place], [place] [phone] Rail Bender: Sarath Olivera MD WBC (Bld) [#/Vol] 22.0 10*3/uL High 3.5-11.3 [facility] Comment on above: Performed By: #### B C #### [employer] [address] [place], [place] [phone] Rail Bender: Sarath Olivera MD CT CHEST ABDOMEN PELVIS [...] Amol Martínez MD 01/05/24 Final result Normal [facility] CT LUMBAR SPINE BONY RECONST RUCTIONon [...] Amol Martínez MD 01/05/24 Final result Normal [facility] CT THORACIC SPINE BONY RECON STRUCTIONon [...] Amol Martínez MD 01/05/24 Final result Normal [facility] Creatine Kinaseon 01-05-2024 CK [Catalytic activity/Vol] 725 U/L High 26-192 [facility] Comment on above: Performed By: #### Ashley CELESTE UAMIC #### [facility] [address] [place] [address] Rail Bender: Sarath Olivera MD Drug Scr, Abuse, Uron 2023 Fentanyl, Urine Sent to reference laboratory. Separate report to follow. Abnormal NEG [facility] Comment on above: Result Comment: OZZIE CHRISTINE NOTIFIED (Positive cutoff 5 ng/ml) Performed By: #### Ashley CELESTE UAMIC #### [facility] [employer] [address] [place] [address] [phone] Rail Bender: Sarath Olivera MD Oxycodone, Urine Sent to reference laboratory. Separate report to follow. Abnormal NEG [facility] Comment on above: Result Comment: OZZIE CHRISTINE NOTIFIED (Positive cutoff 100 ng/mL) Performed By: #### Ashley AU, UAMIC #### [employer] [address] [place] [address] Rail Bender: Sarath Olivera MD Interpretive Info Assay provides rapid clinical screening only. Presumptive positive results for Normal [facility] Comment on above: Result Comment: lega l purposes should be confirmed by another method. To request confirmation, please call the lab within 7 days of sample submission. Performed By: #### Ashley AU, UAMIC #### [employer] [address] [place] [address] Rail Bender: Sarath Olivera MD Opiate(s), Ur Positive Abnormal NEG [facility] Comment on above: Result Comment: Cuto ff: 300 ng/ml Performed By: #### Ashley AU, UAMIC #### [employer] [address] [place] [address] Rail Bender: Sarath Olivera MD Amphetamine(s),Ur Negative Normal NEG [facility] Comment on above: Result Comment: Cuto ff: 1000 ng/mL Performed By: #### Ashley AU, UAMIC #### [employer] [address] [place] [address] Rail Bender: Sarath Olivera MD Barbiturate(s),Ur Negative Normal NEG [facility] Comment on above: Result Comment: Cuto ff: 200 ng/ml Performed By: #### Ashley AU, UAMIC #### [employer] [address] [place] [address] Rail Bender: Sarath Olivera MD Benzodiazepine(s) Negative Normal NEG [facility] Comment on above: Result Comment: Cuto ff: 200 ng/ml Performed By: #### D AU, UAMIC #### [employer] [address] [place] [address] Rail Bender: Sarath Olivera MD Cannabinoid(s),Ur Negative Normal NEG [facility] Comment on above: Result Comment: Cuto ff: 50 ng/ml Performed By: #### Ashley AU, UAMIC #### [address] [address] Rail Bender: Sarath Olivera MD Cocaine Metabolite Negative Normal NEG [facility] Comment on above: Result Comment: Cuto ff: 300 ng/ml Performed By: #### Ashley CELESTE, UAMIC #### [address] [address] Rail Bender: Sarath Olivera MD Methadone Ql (U) Negative Normal NEG [facility] Comment on above: Result Comment: Cuto ff: 300 ng/ml Performed By: #### Ashley CELESTE, UAMIC #### [address] [address] Rail Bender: Sarath Olivera MD Phencyclidine, Ur Negative Normal NEG [facility] Comment on above: Result Comment: Cuto ff: 25 ng/ml Performed By: #### Ashley CELESTE, UAMIC #### [address] [address] Rail Bender: Sarath Olivera MD Ethanol Alcoholon 01-05-2024 Ethanol [Mass/Vol] mg/dL Normal <10 [facility] Comment on above: Performed By: #### B C #### [address] [address] Rail Bender: Sarath Olivera MD Ethanol percent <0.010 Normal <0.010 [facility] Comment on above: Performed By: #### B C #### [facility] [employer] [address] [place] [address] Rail Bender: Sarath Oilvera MD Global Hemostasis(TEG 6S)on 01-05-2024 Angle TEG 75.0 deg Normal 63.0-78.0 [facility] Comment on above: Performed By: #### B C #### [address] [address] Rail Bender: Sarath Olivera MD Fibrinogen, Func TEG 23.0 mm Normal 15.0-32.0 [facility] Comment on above: Performed By: #### B C #### [address] [address] Rail Bender: Sarath Olivera MD K (Kinetics) TEG 1.1 min Normal 0.8-2.1 [facility] Comment on above: Performed By: #### B C #### [address] [address] Rail Bender: Sarath Olivera MD MA (Max Clot) TEG 65.4 mm Normal 52.0-69.0 [facility] Comment on above: Performed By: #### B C #### [address] [address] Rail Bender: Sarath Olivera MD MA Rapid TEG 65.2 mm Normal 52.0-70 [facility] Comment on above: Performed By: #### B C #### [address] [address] Rail Bender: Sarath Olivera MD R TEG w/Hep 4.6 min Normal 4.3-8.3 [facility] Comment on above: Performed By: #### B C #### [address] [address] Rail Bender: Sarath Olivera MD R(Reaction Time) TEG 4.7 min Normal 4.6-9.1 [facility] Comment on above: Performed By: #### B C #### [address] [address] Rail Bender: Sarath Olivera MD Lactate, Sepsison 01-05-2024 Lactic Acid,Sep Wbld 7.9 mmol/L High 0.5-1.9 [facility] Comment on above: Performed By: #### Ashley CELESTE UAMIC #### [address] [address] Rail Bender: Sarath Olivera MD Lactic Acidon 01-05-2024 Lactic Acid,Whole Bl 7.0 mmol/L High 0.7-2.1 [facility] Comment on above: Performed By: #### L ACTIC, ALCB #### [facility] [address] [place] [address] Rail Bender: Sarath Olivera MD Myoglobinon 01-05-2024 Myoglobin [Mass/Vol] 3228 ng/mL High 25-58 [facility] Comment on above: Performed By: #### Ashley CELESTE UAMIC #### [address] [address] Rail Bender: Sarath Olivera MD PTon 01-05-2024 INR Coag (PPP) [Relative time] 1.4 {INR} Normal [facility] Comment on above: Result Comment: Therapeutic Range: Moderate Anticoagulant Intensity: INR = 2.0-3.0 High Anticoagulant Intensity: INR = 2.5-3.5 Performed By: #### B C #### [address] [address] Rail Bender: Sarath Olivera MD PT Coag (PPP) [Time] 16.6 s High 11.7-14.9 [facility] Comment on above: Performed By: #### B C #### [address] [address] Rail Bender: Sarath Olivera MD Trauma Profileon 01-05-2024 Anion gap [Moles/Vol] 15 mmol/L Normal 9-16 [facility] Comment on above: Performed By: #### B C #### [address] [address] Rail Bender: Sarath Olivera MD Chloride [Moles/Vol] 111 mmol/L High 98-107 [facility] Comment on above: Performed By: #### B C #### [address] [address] Rail Bender: Sarath Olivera MD CO2 [Moles/Vol] 17 mmol/L Low 20-31 [facility] Comment on above: Performed By: #### B C #### [address] [address] Rail Bender: Sarath Olivera MD Creatinine [Mass/Vol] 1.5 mg/dL High 0.50-0.90 [facility] Comment on above: Performed By: #### B C #### [address] [address] Rail Bender: Sarath Olivera MD Ethanol [Mass/Vol] mg/dL Normal <10 [facility] Comment on above: Performed By: #### B C #### [address] [address] Rail Bender: Sarath Olivera MD Ethanol percent <0.010 Normal <0.010 [facility] Comment on above: Performed By: #### B C #### [address] [address] Rail Bender: Sarath Olivera MD GFR/1.73 sq M.predicted among non-blacks MDRD (S/P/Bld) [Vol rate/Area] 23 mL/min/{1.73_m2} Low >60 [facility] Comment on above: Result Comment: These [...] secretion. Performed By: #### B C #### [address] [address] Rail Bender: Sarath Olivera MD Glucose [Mass/Vol] 191 mg/dL High 74-99 [facility] Comment on above: Performed By: #### B C #### [address] [address] Rail Bender: Sarath Olivera MD Potassium [Moles/Vol] 3.6 mmol/L Low 3.7-5.3 [facility] Comment on above: Performed By: #### B C #### [address] [address] Rail Bender: Sarath Olivera MD Sodium [Moles/Vol] 143 mmol/L Normal 136-145 [facility] Comment on above: Performed By: #### B C #### [address] [address] Rail Bender: Sarath Olivera MD Urea nitrogen [Mass/Vol] 26 mg/dL High 8-23 [facility] Comment on above: Performed By: #### B C #### [address] [address] Rail Bender: Sarath Olivera MD HCG Screen, Blood Negative Normal NEG [facility] Comment on above: Result Comment: Spec imens with hCG levels near the threshold of the test (25 mIU/mL) may give a negative or indeterminate result. In such cases, another test should be performed with a new specimen in 48-72 hours. If early is suspected clinically in this setting, correlation with quantitative serum b-hCG level is suggested. [facility] has confirmed the use of plasma for this test. This has not been cleared or approved by the U.S. Food and Drug Administration. The FDA has determined that such clearance is not necessary. Performed By: #### B C #### [address] [address] Rail Bender: Sarath Oilvera MD aPTT Coag (Bld) [Time] 28.7 s Normal 23.0-36.5 [facility] Comment on above: Result Comment: IV Heparin Therapy Range: 66.0-92.0 sec Performed By: #### B C #### [address] [address] Rail Bender: Sarath Olivera MD INR Coag (PPP) [Relative time] 4.4 {INR} Normal [facility] Comment on above: Result Comment: Therapeutic Range: Moderate Anticoagulant Intensity: INR = 2.0-3.0 High Anticoagulant Intensity: INR = 2.5-3.5 Performed By: #### B C #### [address] [address] Rail Bender: Sarath Olivera MD PT Coag (PPP) [Time] 40.5 s High 11.7-14.9 [facility] Comment on above: Performed By: #### B C #### [address] [address] Rail Bender: Sarath Olivera MD Body Temp. 37.0 Normal [facility] Comment on above: Performed By: #### B C #### [address] [address] Rail Bender: Sarath Olivera MD Carboxy Hgb 2.7 % Normal 0-5 [facility] Comment on above: Result Comment: Reference Range: Non-Smokers 0-2% Average Smoker 2-4% Heavy Smoker <10% Performed By: #### B C #### [address] [address] Rail Bender: Sarath Olivera MD Erythrocyte distribution width (RBC) [Ratio] 14.4 % Normal 11.8-14.4 [facility] Comment on above: Performed By: #### B C #### [address] [address] Rail Bender: Sarath Olivera MD FIO2 INFORMATION NOT PROVIDED [facility] Comment on above: Performed By: #### B C #### [address] [address] Rail Bender: Sarath Olivera MD HCO3 (Bld) [Moles/Vol] 17.2 mmol/L Low 24-30 [facility] Comment on above: Performed By: #### B C #### [address] [address] Rail Bender: Sarath Olivera MD Hematocrit (Bld) [Volume fraction] 32.6 % Low 36.3-47.1 [facility] Comment on above: Performed By: #### B C #### [address] [address] Rail Bender: Sarath Olivera MD Hemoglobin (Bld) [Mass/Vol] 9.8 g/dL Low 11.9-15.1 [facility] Comment on above: Performed By: #### B C #### [address] [address] Rail Bender: Sarath Olivera MD MCH (RBC) [Entitic mass] 31.4 pg Normal 25.2-33.5 [facility] Comment on above: Performed By: #### B C #### [address] [address] Rail Bender: Sarath Olivera MD MCHC (RBC) [Mass/Vol] 30.1 g/dL Normal 28.4-34.8 [facility] Comment on above: Performed By: #### B C #### [address] [address] Rail Bender: Sarath Olivera MD MCV (RBC) [Entitic vol] 104.5 fL High 82.6-102.9 [facility] Comment on above: Performed By: #### B C #### [address] [address] Rail Bender: Sarath Olivera MD Negative Base Excess 9.9 mmol/L High 0.0-2.0 [facility] Comment on above: Performed By: #### B C #### [address] [address] Rail Bender: Sarath Olivera MD NRBC Automated 0.0 per 100 WBC Normal 0.0 [facility] Comment on above: Performed By: #### B C #### [address] [address] Rail Bender: Sarath Olivera MD Oxygen saturation in Blood 65.9 % Normal 60.0-85.0 [facility] Comment on above: Performed By: #### B C #### [address] [address] Rail Bender: Sarath Olivera MD pCO2 45.1 mm Hg Normal 39-55 [facility] Comment on above: Performed By: #### B C #### [address] [address] Rail Bender: Sarath Olivera MD pH (Bld) 7.205 [pH] Critically low 7.320-7.420 [facility] Comment on above: Performed By: #### B C #### [address] [address] Rail Bender: Sarath Olivera MD Platelet mean volume (Bld) [Entitic vol] 12.6 fL Normal 8.1-13.5 [facility] Comment on above: Performed By: #### B C #### [address] [place] [address] Rail Bender: Sarath Olivera MD Platelets (Bld) [#/Vol] 140 10*3/uL Normal 138-453 [facility] Comment on above: Performed By: #### B C #### [address] [address] Rail Bender: Sarath Olivera MD pO2 41.3 mm Hg Normal 30-50 [facility] Comment on above: Performed By: #### B C #### [address] [address] Rail Bender: Sarath Olivera MD RBC (Bld) [#/Vol] 3.12 10*6/uL Low 3.95-5.11 [facility] Comment on above: Performed By: #### B C #### [address] [address] Rail Bender: Sarath Olivera MD WBC (Bld) [#/Vol] 22.6 10*3/uL High 3.5-11.3 [facility] Comment on above: Performed By: #### B C #### [address] [address] Rail Bender: Sarath Olivera MD Blood Bank BILL FOR SERVICES PERFORMED Normal [facility] Comment on above: Performed By: #### B C #### [address] [address] Rail Bender: Sarath Olivera MD Urinalysis w/ Microon 2023 Bilirubin, SemiQt,Ur Negative Abnormal NEG [facility] Comment on above: Performed By: #### D AU, UAMIC #### [address] [address] Rail Bender: Sarath Olivera MD Casts 5 TO 10 Normal 0-2 [facility] Comment on above: Result Comment: HYAL INE Performed By: #### Ashley AU, UAMIC #### [address] [address] Rail Bender: Sarath Olivera MD Epithelial cells LM Ql (Urine sed) 20 TO 50 Normal 0-5 [facility] Comment on above: Performed By: #### Ashley CELESTE, UAMIC #### [address] [address] Rail Bender: Sarath Olivera MD Mucus Strands 1+ Normal [facility] Comment on above: Performed By: #### Ashley CELESTE, UAMIC #### [address] [address] Rail Bender: Sarath Olivera MD Urine RBC's 0 TO 2 Normal 0-2 [facility] Comment on above: Performed By: #### Ashley CELESTE, UAMIC #### [facility] [employer] [address] [place] [address] Rail Bender: Sarath Olivera MD Urine WBC's 20 TO 50 Normal 0-5 [facility] Comment on above: Performed By: #### Ashley AU, UAMIC #### [address] [address] Rail Bender: Sarath Olivera MD Blood, Urine MODERATE Abnormal NEG [facility] Comment on above: Performed By: #### Ashley AU, UAMIC #### [facility] [employer] [address] [place] [address] Rail Bender: Sarath Olivera MD Clarity (U) Turbid Abnormal CLEAR [facility] Comment on above: Performed By: #### Ashley AU, UAMIC #### [facility] [employer] [address] [place] [address] Rail Bender: Sarath Olivera MD Color (U) Dark Yellow Abnormal YEL [facility] Comment on above: Performed By: #### Ashley AU, UAMIC #### [address] [address] Rail Bender: Sarath Olivera MD Glucose Ql (U) TRACE Abnormal NEG [facility] Comment on above: Performed By: #### Ashley AU, UAMIC #### [address] [address] Rail Bender: Sarath Olivera MD Ketones Ql (U) Negative Normal NEG [facility] Comment on above: Performed By: #### Ashley AU, UAMIC #### [address] [address] Rail Bender: Sarath Olivera MD Leukocyte esterase Test strip Ql (U) TRACE Abnormal NEG [facility] Comment on above: Performed By: #### Ashley CELESTE, UAMIC #### [address] [address] Rail Bender: Sarath Olivera MD Nitrite,Ur Negative Normal NEG [facility] Comment on above: Performed By: #### Ashley CELESTE, UAMIC #### [address] [address] Rail Bender: Sarath Olivera MD PH,Ur 5.0 Normal 5.0-8.0 [facility] Comment on above: Performed By: #### Ashley CELESTE, UAMIC #### [address] [address] Rail Bender: Sarath Olivera MD Protein Ql (U) 2+ mg/dL Abnormal NEG [facility] Comment on above: Performed By: #### Ashley AU, UAMIC #### [address] [address] Rail Bender: Sarath Olivera MD Spec. [place],Ur 1.022 Normal 1.005-1.030 [facility] Comment on above: Performed By: #### D AU, UAMIC #### [facility] [address] [place] [address] Rail Bender: Sarath Olivera MD Urobilinogen,Ur Normal Normal 0.0-1.0 [facility] Comment on above: Performed By: #### D AU, UAMIC #### [facility] [employer] [address] [place] [address] Rail Bender: Sarath Olivera MD XR ELBOW LEFT (MIN [...] Deon Webb MD 01/05/24 Final result Normal [facility] XR FEMUR LEFT (MIN 2 VIEWS)o [...] Deon Webb MD 01/05/24 Final result Normal [facility] XR FEMUR RIGHT (MIN 2 VIEWS) [...] Deon Webb MD 01/05/24 Final result Normal [facility] XR FEMUR RIGHT (MIN 2 VIEWS) [...] Deon Webb MD 01/05/24 Final result Normal [facility] XR KNEE RIGHT (1-2 VIEWS)on 01-05-2024 [...] Deon Webb MD 01/05/24 Final result Normal [facility] XR KNEE RIGHT (3 VIEWS)on XR [...] Deon Webb MD 01/05/24 Final result Normal [facility] XR SHOULDER LEFT (MIN 2 VIEW [...] Deon Webb MD 01/05/24 Final result Normal [facility] CBC AUTO DIFFon 12-10-2022 BASO # 0.0 103/ul Normal 0.0-0.1 [facility] Comment on above: Performed By: #### C BC ####[facility] [address] [place] [id number]. Sofiya Lozano Basophils/100 WBC (Bld) 0.4 % Normal 0.2-2.0 [facility] Comment on above: Performed By: #### C BC ####[facility] [address] [place] [id number]. Yilan Lozano EO # 0.0 103/ul Normal 0.0-0.7 [facility] Comment on above: Performed By: #### C BC ####[facility] [address] [place] [id number]. Yilan Lozano Eosinophils/100 WBC (Bld) 0.8 % Critically low 0.9-7.0 [facility] Comment on above: Performed By: #### C BC ####[facility] [address] [place] [address]Dr. Sofiya Lozano Erythrocyte distribution width (RBC) [Ratio] 13.6 % Normal 11.0-15.0 [facility] Comment on above: Performed By: #### C BC ####[facility] [address] [place], [place] [address]Dr. Sofiya Lozano Hematocrit (Bld) [Volume fraction] 41.0 % Normal 36.0-48.0 [facility] Comment on above: Performed By: #### C BC ####[facility] If[address] [place], [place] [address]Dr. Sofiya Lozano Hemoglobin (Bld) [Mass/Vol] 13.0 g/dL Normal 12.0-16.0 [facility] Comment on above: Performed By: #### C BC ####[facility] [address] [place], [place] [address]Dr. Sofiya Lozano IG # 0.00 10e3/ul Normal 0.00-0.03 [facility] Comment on above: Performed By: #### C BC ####[facility] [address] [place], [place] [address]Dr. Sofiya Lozano IG % 0.0 % Normal 0.0-0.5 [facility] Comment on above: Performed By: #### C BC ####[facility] [address] [place], [place] [address]Dr. Sofiya Lozano LYMPH # 1.5 103/ul Normal 1.2-3.8 [facility] Comment on above: Performed By: #### C BC ####[facility] [address] [place], [place] [address]Dr. Sofiya Lozano Lymphocytes/100 WBC (Bld) 27.9 % Normal 20.5-60.0 [facility] Comment on above: Performed By: #### C BC ####[facility] [address] [place], [place] [address]Dr. Sofiya Lozano MANUAL DIFF REQ NO Normal [facility] Comment on above: Performed By: #### C BC ####[facility] [address] [place] [id number]. Sofiya Lozano MCH (RBC) [Entitic mass] 30.0 pg Normal 26.7-34.0 [facility] Comment on above: Performed By: #### C BC ####[facility] [address] [place] [phone]. Sofiya Lozano MCHC (RBC) [Mass/Vol] 31.7 g/dL Normal 29.9-35.2 [facility] Comment on above: Performed By: #### C BC ####[facility] [address] [place] [phone]. Sofiya Blake MCV (RBC) [Entitic vol] 94.5 fL Normal 81.0-99.0 [facility] Comment on above: Performed By: #### C BC ####[facility] [address] [place], [place] [address]Dr. Sofiya Lozano MONO # 0.5 103/ul Normal 0.3-0.8 [facility] Comment on above: Performed By: #### C BC ####[facility] [address] [place], [place] [address]Dr. Landyjonathan Lozano Monocytes/100 WBC (Bld) 8.6 % Normal 1.7-12.0 [facility] Comment on above: Performed By: #### C BC ####[facility] [address] [place], [place] [address]Dr. Landyjonathan Lozano NEUT # 3.3 103/ul Normal 1.4-6.5 [facility] Comment on above: Performed By: #### C BC ####[facility] [address] [place], [place] [id number]. Sofiya Lozano Neutrophils/100 WBC (Bld) 62.3 % Normal 43.0-75.0 [facility] Comment on above: Performed By: #### C BC ####[facility] [address] [place], [place] [address]Dr. Sofiya Lozano Platelet mean volume (Bld) [Entitic vol] 11.9 fL Normal 9.5-13.5 [facility] Comment on above: Performed By: #### C BC ####[facility] [address] [place], [place] [address]Yf. Sofiya Lozano PLT 166 103/ul Normal 150-450 [facility] Comment on above: Performed By: #### C BC ####[facility] [address] [place], [place] [address]Wh. Sofiya Lozano RBC 4.34 106/ul Normal 4.20-5.40 [facility] Comment on above: Performed By: #### C BC ####[facility] [address] [place], [place] [address]Eb. Sofiya Lozano WBC 5.2 103/ul Normal 4.0-11.0 [facility] Comment on above: Performed By: #### C BC ####[facility] [address] [place], [place] [address]Mq. Landyjonathan Blake FREE THYROXINE INDEX T7on FTI 2.50 Normal 1.30-4.50 [facility] Comment on above: Performed By: #### C MP, TSH, LIPID, T7 ####[facility] [address] [place], [place] [address]Ms. Sofiya Blake T3U 32.0 % Normal 30.0-39.0 [facility] Comment on above: Performed By: #### C MP, TSH, LIPID, T7 ####[facility] [address] [place], [place] [address]Tv. Sofiya Blake T4 [Mass/Vol] 7.80 ug/dL Normal 4.80-13.90 [facility] Comment on above: Performed By: #### C MP, TSH, LIPID, T7 ####[facility] [address] [place], [place] [address]Ge. Sofiya Blake GLYCOHEMOGLOBIN A1Con 2022 ADA RECOMMENDATION SEE BELOW Normal [facility] Comment on above: Result Comment: ADA RECOMMENDED LIMIT 4.0 - 6.0 ADA THERAPEUTIC TARGET < 7.0 ACTION SUGGESTED > 7.0 Performed By: #### A 1C #### [facility] [address] [place], [place] [address] Dr. Sofiya Lozano Glucose [Mass/Vol] 117 mg/dL Normal [facility] Comment on above: Performed By: #### A 1C #### [facility] [address] [place] [address] [address] Sofiya Lozano HbA1c (Bld) [Mass fraction] 5.7 % Normal 4.5-6.2 [facility] Comment on above: Performed By: #### A 1C #### [facility] [address] [place] [address] [address] Sofiya Lozano LIPID PROFILEon 12-10-2022 CHOL-HDL RATIO NORM SEE BELOW Normal [facility] Comment on above: Result Comment: 3.3 - 4.4 LOW RISK 4.4 - 7.1 AVERAGE RISK 7.1 - 11.0 MODERATE RISK >11.0 HIGH RISK Performed By: #### C MP, TSH, LIPID, T7 ####[facility] [address] [place] [address]Dr. Sofiya Lozano Cholesterol [Mass/Vol] 155 mg/dL Normal <=200 [facility] Comment on above: Performed By: #### C MP, TSH, LIPID, T7 ####[facility] [address] [place] [address]DrSandi Lozano Cholesterol in HDL [Mass/Vol] 61 mg/dL Critically high 40-60 [facility] Comment on above: Performed By: #### C MP, TSH, LIPID, T7 ####[facility] [address] [place] [phone]. Sofiya Lozano Cholesterol in LDL [Mass/Vol] 75.6 mg/dL Normal [facility] Comment on above: Performed By: #### C MP, TSH, LIPID, T7 ####[facility] [address] [place] [phone] Lozano Cholesterol.total/Cho lesterol in HDL [Mass ratio] 2.5 {ratio} Normal [facility] Comment on above: Performed By: #### C MP, TSH, LIPID, T7 ####[facility] [address]acid[address] [place] [phone]. Sofiya Lozano HDL NORMAL > or = 60 mg/dl - LO W CARDIOVASCULAR RISK <40 mg/dl - HIGH CARDIOVASCULAR RISK Normal [facility] Comment on above: Performed By: #### C MP, TSH, LIPID, T7 ####[facility] [address] [place] [address]Dr. Sofiya Lozano LDL CALC NORMAL SEE BELOW Normal [facility] Comment on above: Result Comment: <100 mg/dl OPTIMAL 100 - 129 mg/dl NEAR OR ABOVE OPTIMAL 130 - 159 mg/dl BORDERLINE HIGH 160 - 189 mg/dl HIGH >190 mg/dl VERY HIGH Performed By: #### C MP, TSH, LIPID, T7 ####[facility] [address] [place] [address]Dr. Sofiya Lozano Triglyceride [Mass/Vol] 92 mg/dL Normal <=150 [facility] Comment on above: Performed By: #### C MP, TSH, LIPID, T7 ####[facility] [address] [place] [address]Dr. Sofiya Lozano VLDL CALC 18.4 mg/dL Normal [facility] Comment on above: Performed By: #### C MP, TSH, LIPID, T7 ####[facility] [address] [place] [address]Dr. Sofiya Lozano PROF 14(COMP METB)on 023 Albumin [Mass/Vol] 3.4 g/dL Normal 3.4-5.0 [facility] Comment on above: Performed By: #### C MP, TSH, LIPID, T7 ####[facility] [address] [place] [address]Dr. Sofiya Lozano Albumin/Globulin [Mass ratio] 1.0 {ratio} Normal [facility] Comment on above: Performed By: #### C MP, TSH, LIPID, T7 ####[facility] [address] [place] [address]Dr. Sofiya Lozano ALP [Catalytic activity/Vol] 85 U/L Normal 46-116 [facility] Comment on above: Performed By: #### C MP, TSH, LIPID, T7 ####[facility] [address] [place] [address]Dr. Sofiya Lozano ALT [Catalytic activity/Vol] 21 U/L Normal 14-59 [facility] Comment on above: Performed By: #### C MP, TSH, LIPID, T7 ####[facility] [address] [place] [address]Dr. Sofiya Loznao Anion gap [Moles/Vol] 9.0 mmol/L Normal [facility] Comment on above: Performed By: #### C MP, TSH, LIPID, T7 ####[facility] [address] [place] [address]Dr. Sofiya Lozano AST [Catalytic activity/Vol] 18 U/L Normal 15-37 [facility] Comment on above: Performed By: #### C MP, TSH, LIPID, T7 ####[facility] [address]kg[address] [place] [address]Dr. Sofiya Lozano Bilirubin [Mass/Vol] 0.4 mg/dL Normal 0.2-1.0 [facility] Comment on above: Performed By: #### C MP, TSH, LIPID, T7 ####[facility] [address] [place], [place] [address]Dr. Sofiya Lozano Calcium [Mass/Vol] 9.0 mg/dL Normal 8.5-10.1 [facility] Comment on above: Performed By: #### C MP, TSH, LIPID, T7 ####[facility] [address] [place] [address]Dr. Sofiya Lozano Chloride [Moles/Vol] 109 mmol/L Critically high 98-107 [facility] Comment on above: Performed By: #### C MP, TSH, LIPID, T7 ####[facility] [address] [place] [address]Dr. Sofiya Lozano CO2 [Moles/Vol] 31.0 mmol/L Normal 21.0-32.0 [facility] Comment on above: Performed By: #### C MP, TSH, LIPID, T7 ####[facility] [address] [place] [address]Dr. Sofiya Lozano Creatinine [Mass/Vol] 1.10 mg/dL Critically high 0.55-1.02 [facility] Comment on above: Performed By: #### C MP, TSH, LIPID, T7 ####[facility] [address] [place] [address]Dr. Sofiya Lozano EGFR-AF MOLDOVAN 57 mL/min/1.73m2 Critically low >=60 [facility] Comment on above: Performed By: #### C MP, TSH, LIPID, T7 ####[facility] [address] [place] [address]Dr. Sofiya Lozano EGFR-NON AF MOLDOVAN 47 mL/min/1.73m2 Critically low >=60 [facility] Comment on above: Performed By: #### C MP, TSH, LIPID, T7 ####[facility] [address] [place] [address]Dr. Sofiya Lozano Globulin (S) [Mass/Vol] 3.4 g/dL Normal [facility] Comment on above: Performed By: #### C MP, TSH, LIPID, T7 ####[facility] [address] [place] [address]Dr. Sofiya Lozano Glucose [Mass/Vol] 109 mg/dL Critically high 74-106 [facility] Comment on above: Performed By: #### C MP, TSH, LIPID, T7 ####[facility] [address]or[address] [place] [address]Dr. Sofiya Lozano Potassium [Moles/Vol] 4.0 mmol/L Normal 3.5-5.1 [facility] Comment on above: Performed By: #### C MP, TSH, LIPID, T7 ####[facility] [address] [place] [address]Dr. Sofiya Lozano Protein [Mass/Vol] 6.8 g/dL Normal 6.4-8.2 [facility] Comment on above: Performed By: #### C MP, TSH, LIPID, T7 ####[facility] [address] [place] [address]Dr. Sofiya Lozano Sodium [Moles/Vol] 145 mmol/L Normal 136-145 [facility] Comment on above: Performed By: #### C MP, TSH, LIPID, T7 ####[facility] [address] [place] [id number]. Sofiya Lozano Urea nitrogen [Mass/Vol] 21.0 mg/dL Critically high 7.0-18.0 [facility] Comment on above: Performed By: #### C MP, TSH, LIPID, T7 ####[facility] [address] [place] [id number]. Sofiya Lozano Urea nitrogen/Creatinine [Mass ratio] 19.1 mg/mg Normal [facility] Comment on above: Performed By: #### C MP, TSH, LIPID, T7 ####[facility] [address] [place] [address]DrSandi Lozano TSHon 12-10-2022 TSH 3.603 uIU/mL Normal 0.358-3.740 [facility] Comment on above: Performed By: #### C MP, TSH, LIPID, T7 ####[facility] [address] [place] [address]Dr. Sofiya Lozano CBC AUTO DIFFon 08-09-2022 BASO # 0.0 103/ul Normal 0.0-0.1 [facility] Comment on above: Performed By: #### C BC #### [facility] [address] [place] [address] Dr. Sofiya Lozano Basophils/100 WBC (Bld) 0.2 % Normal 0.2-2.0 [facility] Comment on above: Performed By: #### C BC #### [facility] [address] [place] [address] Dr. Sofiya Lozano EO # 0.0 103/ul Normal 0.0-0.7 [facility] Comment on above: Performed By: #### C BC #### [facility] [address] [place] [address] Dr. Sofiya Lozano Eosinophils/100 WBC (Bld) 0.8 % Critically low 0.9-7.0 [facility] Comment on above: Performed By: #### C BC #### [facility] [address] [address] [address] Sofiya Lozano Erythrocyte distribution width (RBC) [Ratio] 13.7 % Normal 11.0-15.0 [facility] Comment on above: Performed By: #### C BC #### [facility] [address] [place] [address] Dr. Sofiya Lozano Hematocrit (Bld) [Volume fraction] 39.0 % Normal 36.0-48.0 [facility] Comment on above: Performed By: #### C BC #### [facility] [address] [place] [address] Dr. Sofiya Lozano Hemoglobin (Bld) [Mass/Vol] 13.0 g/dL Normal 12.0-16.0 [facility] Comment on above: Performed By: #### C BC #### [facility] [address] [place] [address] Dr. Sofiya Lozano IG # 0.01 10e3/ul Normal 0.00-0.03 [facility] Comment on above: Performed By: #### C BC #### [facility] [address] [place] [address] Dr. Sofiya Lozano IG % 0.2 % Normal 0.0-0.5 [facility] Comment on above: Performed By: #### C BC #### [facility] [address] [place] [address] Dr. Sofiya Lozano LYMPH # 0.9 103/ul Critically low 1.2-3.8 [facility] Comment on above: Performed By: #### C BC #### [facility] [address] [place] [address] Dr. Sofiya Lozano Lymphocytes/100 WBC (Bld) 19.1 % Critically low 20.5-60.0 [facility] Comment on above: Performed By: #### C BC #### [facility] [address] [place] [address] Dr. Sofiya Lozano MANUAL DIFF REQ NO Normal [facility] Comment on above: Performed By: #### C BC #### [facility] [address] [place] [address] Dr. Sofiya Lozano MCH (RBC) [Entitic mass] 30.6 pg Normal 26.7-34.0 [facility] Comment on above: Performed By: #### C BC #### [facility] [address] [place] [address] Dr. Sofiya Lozano MCHC (RBC) [Mass/Vol] 33.3 g/dL Normal 29.9-35.2 [facility] Comment on above: Performed By: #### C BC #### [facility] [address] [place] [address] Dr. Sofiya Lozano MCV (RBC) [Entitic vol] 91.8 fL Normal 81.0-99.0 [facility] Comment on above: Performed By: #### C BC #### [facility] [address] [place] [address] Dr. Sofiya Lozano MONO # 0.5 103/ul Normal 0.3-0.8 [facility] Comment on above: Performed By: #### C BC #### [facility] [address] [place] [address] Dr. Sofiya Lozano Monocytes/100 WBC (Bld) 10.5 % Normal 1.7-12.0 [facility] Comment on above: Performed By: #### C BC #### [facility] [address] [place] [address] Dr. Sofiya Lozano NEUT # 3.4 103/ul Normal 1.4-6.5 [facility] Comment on above: Performed By: #### C BC #### [facility] [address] [place] [address] Dr. Sofiya Lozano Neutrophils/100 WBC (Bld) 69.2 % Normal 43.0-75.0 [facility] Comment on above: Performed By: #### C BC #### [facility] [address] [place] [address] Dr. Sofiya Lozano Platelet mean volume (Bld) [Entitic vol] 11.7 fL Normal 9.5-13.5 [facility] Comment on above: Performed By: #### C BC #### [facility] [address] [place] [address] Dr. Sofiya Lozano PLT 158 103/ul Normal 150-450 [facility] Comment on above: Performed By: #### C BC #### [facility] [address] [place] [address] Dr. Sofiya Lozano RBC 4.25 106/ul Normal 4.20-5.40 [facility] Comment on above: Performed By: #### C BC #### [facility] [address] [place] [address] Dr. Sofiya Lozano WBC 4.9 103/ul Normal 4.0-11.0 [facility] Comment on above: Performed By: #### C BC #### [facility] [address] [place] [address] Dr. Sofiya Lozano PROF CHEM 8 (BAS METB)on Anion gap [Moles/Vol] 10.1 mmol/L Normal [facility] Comment on above: Performed By: #### B MP #### [facility] [address] [place] [address] Dr. Sofiya Lozano Calcium [Mass/Vol] 8.5 mg/dL Normal 8.5-10.1 [facility] Comment on above: Performed By: #### B MP #### [facility] [address] [place] [address] Dr. Sofiya Lozano Chloride [Moles/Vol] 102 mmol/L Normal 98-107 [facility] Comment on above: Performed By: #### B MP #### [facility] [address] [place] [address] Dr. Sofiya Lozano CO2 [Moles/Vol] 28.1 mmol/L Normal 21.0-32.0 [facility] Comment on above: Performed By: #### B MP #### [facility] [address] [place] [address] Dr. Sofiya Lozano Creatinine [Mass/Vol] 0.97 mg/dL Normal 0.55-1.02 [facility] Comment on above: Performed By: #### B MP #### [facility] [address] [place] [address] Dr. Sofiya Lozano EGFR-AF MOLDOVAN >60 Normal >=60 [facility] Comment on above: Performed By: #### B MP #### [facility] [address] [address] [address] Sofiya Lozano EGFR-NON AF MOLDOVAN 55 mL/min/1.73m2 Critically low >=60 [facility] Comment on above: Performed By: #### B MP #### [facility] [address] [address] [address] Sofiya Lozano Glucose [Mass/Vol] 128 mg/dL Critically high 74-106 [facility] Comment on above: Performed By: #### B MP #### [facility] [address] [address] [address] Sofiya Lozano Potassium [Moles/Vol] 4.2 mmol/L Normal 3.5-5.1 [facility] Comment on above: Performed By: #### B MP #### [facility] [address] [address] [address] Sofiya Lozano Sodium [Moles/Vol] 136 mmol/L Normal 136-145 [facility] Comment on above: Performed By: #### B MP #### [facility] [address] [address] [address] Sofiya Lozano Urea nitrogen [Mass/Vol] 20.0 mg/dL Critically high 7.0-18.0 [facility] Comment on above: Performed By: #### B MP #### [facility] [address] [address] [address] Sofiya Lozano Urea nitrogen/Creatinine [Mass ratio] 20.6 mg/mg Normal [facility] Comment on above: Performed By: #### B MP #### [facility] [address] [address] [address] Sofiya Lozano PROTIMEon 08-09-2022 INR Coag (PPP) [Relative time] 2.00 {INR} Normal [facility] Comment on above: Performed By: #### P TT, PT #### [facility] [address] [address] [address] Sofiya Lozano INR GUIDELINES SEE BELOW Normal [facility] Comment on above: Result Comment: FIGUEROA RED INR: 2.0 - 3.0 CONDITIONS NOT LISTED BELOW 2.5 - 3.5 FOR PROSTHETIC HEART VALVE REPLACEMENT 2.5 - 3.5 RECURRENT THROMBOSIS Performed By: #### P TT, PT #### [facility] [address] [address] [address] Sofiya Lozano PT Coag (PPP) [Time] 20.6 s Critically high 9.0-11.6 [facility] Comment on above: Performed By: #### P TT, PT #### [facility] [address] [address] [address] Sofiya Lozano PTTon 08-09-2022 aPTT Coag (Bld) [Time] 38.5 s Critically high 22.3-36.2 [facility] Comment on above: Performed By: #### P TT, PT ####[facility] [address] [place] [address]Dr. Sofiya Lozano US VENOUS DOPPLER L Isabel [...] CONCEPCIÓN WOMACK Date: 2022-08-09 15:59 Normal [facility] PROTIMEon 05-13-2022 INR Coag (PPP) [Relative time] 2.76 {INR} Normal [facility] Comment on above: Performed By: #### P T #### [facility] [address] [address] [address] Sofiya Lozano INR GUIDELINES SEE BELOW Normal [facility] Comment on above: Result Comment: FIGUEROA RED INR: 2.0 - 3.0 CONDITIONS NOT LISTED BELOW 2.5 - 3.5 FOR PROSTHETIC HEART VALVE REPLACEMENT 2.5 - 3.5 RECURRENT THROMBOSIS Performed By: #### P T #### [facility] [address] [address] [address] Sofiya Lozano PT Coag (PPP) [Time] 27.9 s Critically high 9.0-11.6 [facility] Comment on above: Performed By: #### P T #### [facility] [address] [address] [address] Sofiya Lozano PROTIMEon 04-15-2022 INR Coag (PPP) [Relative time] 2.18 {INR} Normal [facility] Comment on above: Performed By: #### P T #### [facility] [address] [address] [address] Sofiya Lozano INR GUIDELINES SEE BELOW Normal [facility] Comment on above: Result Comment: FIGUEROA RED INR: 2.0 - 3.0 CONDITIONS NOT LISTED BELOW 2.5 - 3.5 FOR PROSTHETIC HEART VALVE REPLACEMENT 2.5 - 3.5 RECURRENT THROMBOSIS Performed By: #### P T #### [facility] [address] [address] [address] Sofiya Lozano PT Coag (PPP) [Time] 22.4 s Critically high 9.0-11.6 [facility] Comment on above: Performed By: #### P T #### [facility] [address] [address] [address] Sofiya Lozano VIT D 25-OH LABCORPon 2021 Vitamin D, 25-Hydroxy 23.7 ng/mL Critically low 30.0-100.0 [facility] Comment on above: Result Comment: Jailyn min D deficiency has been defined by the [place] of [employer] and an Endocrine Society practice guideline as a level of serum 25-OH vitamin D less than 20 ng/mL (1,2). The Endocrine Society went on to further define vitamin D insufficiency as a level between 21 and 29 ng/mL (2). 1. IOM ([place] of [employer]). 2010. Dietary reference intakes for calcium and D. [place]: The National Academies Press. 2. Negin MATSON, Francisco CUNNINGHAM, Summer FERNANDEZ, et al. Evaluation, treatment, and prevention of vitamin D deficiency: an Endocrine Society clinical practice guideline. JCEM. 2010; 96(7):1911-30. Performed By: #### V ITADLC #### [facility] [address] [address] [address] Sofiya Lozano VITAMIN B12on 03-01-2022 Cobalamin (Vitamin B12) [Mass/Vol] 258.0 pg/mL Normal 193.0-986.0 [facility] Comment on above: Performed By: #### V ITB12 #### [facility] [address] [address] [address] Sofiya Lozano PROTIMEon 12-24-2021 INR Coag (PPP) [Relative time] 1.79 {INR} Normal [facility] Comment on above: Performed By: #### P T #### [facility] [address] [address] [address] Sofiya Lozano INR GUIDELINES SEE BELOW Normal [facility] Comment on above: Result Comment: FIGUEROA RED INR: 2.0 - 3.0 CONDITIONS NOT LISTED BELOW 2.5 - 3.5 FOR PROSTHETIC HEART VALVE REPLACEMENT 2.5 - 3.5 RECURRENT THROMBOSIS Performed By: #### P T #### [facility] [address] [address] [address] Sofiya Lozano PT Coag (PPP) [Time] 18.6 s Critically high 9.0-11.6 [facility] Comment on above: Performed By: #### P T #### [facility] [address] [address] [address] Sofiya Lozano Encounters Encounter Date Encounter Type Care Provider Facility Start: 11-29-2024 End: 11-29-2024 ambulatory STEPHANY HARGROVE [facility] Start: 11-15-2024 End: 11-15-2024 ambulatory MARY GILMORE [facility] Start: 05-17-2024 End: 05-17-2024 ambulatory [facility] Start: 03-15-2024 End: 03-15-2024 ambulatory [facility] Start: 02-17-2024 End: 02-23-2024 Evaluation and management of inpatient [facility] Start: 02-09-2024 End: 02-09-2024 ambulatory FATMATA BELLAMY [facility] Start: 02-02-2024 End: 02-02-2024 ambulatory [facility] Start: 02-02-2024 End: 02-02-2024 Subsequent hospital visit by physician Fatmata Bellamy APRN - QC TECH Work Phone: [facility] Start: 01-26-2024 End: 01-26-2024 ambulatory [facility] Start: 01-23-2024 End: 01-25-2024 ambulatory GER [facility] Start: 01-23-2024 End: 01-25-2024 Subsequent hospital visit by physician Dima [facility] Scan Room [facility] CT Scan Comment on above: SDH (subdural hemato ma) ([facility]) Start: 01-19-2024 End: 01-19-2024 ambulatory [facility] Start: 01-15-2024 End: 01-15-2024 [facility]ulatory [facility] Start: 01-15-2024 End: 01-15-2024 Subsequent hospital visit by physician Fatmata Bellamy APRN - QC TECH Work Phone: [facility] Start: 01-05-2024 End: 01-13-2024 Evaluation and management of inpatient FATMATA BELLAMY [facility] Start: 07-03-2023 End: 07-03-2023 ambulatory MOISES SANCHEZ [facility] Start: 12-14-2022 Encounter for genera l adult medical examination without abnormal findings DR MOISES SANCHEZ . [facility] Start: 12-10-2022 End: 12-11-[address] MOISES [...] vaccination Flu vaccine (# 1) ANTOINE D[facility]N [facility] Start: 02-19-2024 End: 02-19-2024 Patient encounter procedure 02/19/2024 10:30 AM EDT Office Visit [facility] [address] [place] [address] [place] [address] Celina Diaz, DO [address] [facility] [address] [place] [address] Follow up with Sylvia or Adelina in two weeks with CTH prior to appointment for SDH [facility] Comment on above: Follow up with Sylvia or Adelina in two weeks with CTH prior to appointment for SDH Start: 02-09-2024 End: 02-09-2024 Patient encounter procedure 02/09/2024 11:30 AM EDT Office Visit [facility] [address] [place] [address] [place] [address] Austin Zee, DO [address] [place], [place] [id number] LEFT PROX HUMERUS/ RIGHT TIB COMING FORM [facility]. R/S w/Deisy due to Covid [phone] [facility] Comment on above: LEFT PROX HUMERUS/ R IGHT TIB COMING FORM [facility]. R/S w/Deisy due to Covid [phone] Start: 02-02-2024 End: 02-02-2024 Patient encounter procedure 02/02/2024 10:15 AM EDT Office Visit [facility] [address] [facility] [address] [place] [id number] Austin Zee, DO [address] [facility] [address] [place] [address] LEFT PROX HUMERUS/ RIGHT TIB COMING FORM [facility] Comment on above: LEFT PROX HUMERUS/ R IGHT TIB COMING FOR[facility] Start: 01-21-2024 End: 01-21-2024 Patient encounter procedure 01/21/2024 3:15 PM EDT Office Visit [facility] [address] [facility] [address] [place] [phone] Austin Zee, DO [address] [facility] [address] [place] [address] R fem IMN, closed tx left proximal humerus [facility] Comment on above: R fem IMN, closed tx left proximal humerus Start: 01-21-2024 End: 01-21-2024 Patient encounter procedure 01/21/2024 11:30 AM EDT Office Visit [facility] [address] [facility] [address] Floor, [address] [place] [phone] Sylvia Malone W, METER MAINTENANCE PERSON - QC TECH [address] [facility] [address] [place], [place] [id number] Follow up with Sylvia or Adelina in two weeks with CTH prior to appointment for SDH [facility] Comment on above: Follow up with Sylvia or Adelina in two weeks with CTH prior to appointment for SDH Start: 08-04-2023 Annual Wellness Visi t (Medicare Advantage) Annual Wellness Visit (Medicare Advantage) [facility] Start: 04-04-2023 COVID-19 Vaccine ( season) COVID-19 Vaccine ( season) [facility] Start: 1999 Respiratory Syncytia l Virus (RSV) or age 60 yrs+ (1 - 1-dose 60+ series) Respiratory Syncytial Virus (RSV) or age 60 yrs+ (1 - 1-dose 60+ series) [facility] Start: 1994 Screening for osteoporosis DEXA (modify frequency per FRAX score) [facility] Start: 1958 DTaP/Tdap/Td vaccine (1 - Tdap) DTaP/Tdap/Td vaccine (1 - Tdap) [facility] Start: 1951 Depression Screen Depression Screen [facility] End: 01-23-2024 CT Head WO contrast [facility] Work Phone: Comment on above: 1 Occurrences starti ng 01/23/2024 until 01/23/2024 Payers Date Payer Category Payer Self-pay [id number] Unknown [id number] 1940 Unknown [id number] 2.16.84 [id number] 1939 Unknown [id number] 2.16.84 0.1.080018.3.579.2.593 1939 Unknown [id number] 2.16.84 0.1.485349.3.579.2.593 1939 Unknown [id number] 2.16.84 0.1.776089.3.579.2.593 1939 Unknown [id number] 2.16.84 0.1.640979.3.579.2.593 1939 Unknown [id number] 2.16.84 0.1.121016.3.579.2.593 1939 Unknown [id number] 2.16.84 0.1.911053.3.579.2.593 1939 Unknown [id number] 2.16.8 40.1.289397.3.579.2.173 1939 Unknown [id number] 2.16.8 40.1.322599.3.579.2.173 1939 Unknown [id number] 2.16.8 40.1.596708.3.579.2.173 1939 Unknown [id number] 2.16.8 40.1.582597.3.579.2.173 1939 Unknown [id number] 2.16.8 40.1.998429.3.579.2.173 1939 Unknown [id number] 2.16. 840.1.822702.3.579.2.175 1939 Unknown [id number] 2.16. 840.1.503858.3.579.2.175 1939 Unknown [id number] 2.16. 840.1.327002.3.579.2.175 1939 Unknown [id number] 2.16. 840.1.566409.3.579.2.175 1939 Unknown [id number] 2.16. 840.1.736686.3.579.2.175 1939 Unknown [id number] 2.16. 840.1.222597.3.579.2.175 1939 Unknown [id number] 2.16. 840.1.512672.3.579.2.175 Social History Date Type Detail Facility Start: 01-10-2024 Tobacco smoking stat [facility] Never smoked tobacco [facility] Start: 01-10-2024 Tobacco use and exposure Smokeless tobacco non-user [facility] Start: 01-05-2024 End: 01-10-2024 History of Social function [facility] Start: 01-05-2024 End: 01-10-2024 Tobacco use panel [facility] Physical abuse Denies [facility] Start: 1940 Sex Assigned At Not on file B ON [facility] Medical Equipment Procedure Code Equipment Code Equipment Origin al Text Equipment Identifier Dates Nail Im Fem 12x4 20 Mm Rt Greater Trochanteric Strl T2 Alpha - [id number], [id number] FDA Start: 01-06-2024 Screw Bne L90mm Dia6.5mm Canc Fem Ti Lag Rory Saad Partially - [id number] [id number], [id number] FDA Start: 01-06-2024 Screw Bne L90mm Dia6.5mm Canc Fem Ti Lag Rory Saad Partially - [id number] ()[id number] [id number], [id number] FDA Start: 01-06-[address] 5x37 5mm - [id number] ()[id number] [id number], [id number] FDA Start: 01-06-2024 Screw Bne L50mm Dia5mm Saad For T2 Alpha Nailing Sys - [id number] [id number], [id number] FDA Start: 01-06-2024 Screw Bne Lck 5x 45 Mm Adv Strl Alpha - [id number] Start: 01-06-2024 Clinical Note 03-01-2022 Note [...] by: BERTO ALEJO Date: 2022-03-01 17:38 [facility] Evaluation note Note Date & Type Note Facility Evaluation note Diagnosis SDH (subdural hematoma) (HCC) Subdural hemorrhage documented in this encounter [facility] Summary Purpose Family History No Family [...] Procedures CT HEAD WO CONTRAST Ger Guzman, METER MAINTENANCE PERSON - QC TECH [address] [address] Referral ID Status Reason Start Date Expiration Date Visits Re quested Visits Authorized [id number] Closed 01/20/2024 04/18/2024 1 1 Additional Source Comments INFORMATION SOURCE (unrecogn ized section and content) DATE CREATED AUTHOR 12/15/2022 [facility] DATE CREATED AUTHOR AUTHOR'S ORGANIZ ATION 02/03/2024 [facility] DATE CREATED AUTHOR AUTHOR'S ORGANIZ ATION 12/02/2024 [facility] Care Teams (unrecognized sec tion and content) Education Professional Relationship Specialty Start Date End Date Fatmata Bellamy APRN - QC TECH [address] [place] [id number] PCP - General 01/06/24 Education Professional Relationship Specialty Start Date End Date Fatmata BellamyKARISSA - MARLIN [address] [place] [address] [place] [address] PCP - General 01/06/24 Education Professional Relationship Specialty Start Date End Date Fatmata BellamyKARISSA - QC TECH [address] [facility] [place] [address] PCP - General 01/06/24 Reason for Visit (unrecogniz ed section and content) Specialty Diagnoses / Procedures Referred By Contac t Referred To Contact Radiology Diagnoses SDH (subdural hematoma) (HCC) Procedures CT HEAD WO CONTRAST Ger Guzman, KARISSA - MARLNI [address] [facility] [address] [place] [address] Referral ID Status Reason Start Date Expiration Date Visits Re quested Visits Authorized [id number] Closed 01/20/2024 04/18/2024 1 1 FOR RECORDS [...] BE BASED ON THE PRIMARY CLINICAL RECORDS. [facility] [employer] provides no warranty or guarantee of the accuracy or completeness of information in this document.
[2025-01-03 00:06] VITALS: BP 110/90; PULSE 58; TEMP 36.5; O2SAT 98; BMI 26.5
--- NOTE | 2025-01-03 00:35 | ED.LOWEXI1 ---
HPI HPI - Extremity Injury (Lower) General Chief Complaint: Extremity Injury, Lower Stated Complaint: BACK PAIN, R LEG PAIN Time Seen by Provider: 01/03/25 00:16 Source: patient Mode of arrival: walk-in Limitations: no limitations History of Present Illness HPI Narrative: presents complaining of right sciatica pain. States was admitted here for 5 days for pain. Has appointment with pain specialist at the end of this week. No leg weakness. No loss of control of bowel or bladder Related Data Home Medications ?Medication ?Instructions ?Recorded ?Confirmed simvastatin 10 mg tablet 10 mg PO QPM 01/05/24 01/03/25 warfarin 2.5 mg tablet 2.5 mg PO DAILY 01/05/24 01/03/25 alendronate 70 mg tablet 70 mg PO .weekly 12/13/24 01/03/25 diclofenac sodium 75 mg 75 mg PO BID PRN pain 12/13/24 01/03/25 tablet,delayed release diltiazem HCl 60 mg tablet 60 mg PO DAILY 12/13/24 01/03/25 metoprolol tartrate 25 mg tablet 12.5 mg PO BID 12/13/24 01/03/25 gabapentin 100 mg capsule 100 mg PO .QHS 12/22/24 01/03/25 cholecalciferol (vitamin D3) 50 50 mcg PO DAILY 12/26/24 01/03/25 mcg (2,000 unit) tablet hydrocodone 5 mg-acetaminophen 325 1 tab PO Q8H PRN pain 12/26/24 01/03/25 mg tablet ondansetron HCl 4 mg tablet 4 mg PO Q6H PRN nausea and vomiting 12/26/24 01/03/25 Previous Rx's ?Medication ?Instructions ?Recorded cefdinir 300 mg capsule 600 mg (2 x 300 mg) PO DAILY #14 12/29/24 caps furosemide 40 mg tablet 40 mg PO QD #30 tabs 12/29/24 gabapentin 300 mg capsule 300 mg PO QHS #30 caps 12/29/24 isosorbide mononitrate 30 mg 30 mg PO QD #30 tabs 12/29/24 tablet,extended release 24 hr levothyroxine 25 mcg tablet 25 mcg PO ACB #30 tabs 12/29/24 magnesium oxide 400 mg (241.3 mg 400 mg PO BID #60 tabs 12/29/24 magnesium) tablet pantoprazole 40 mg tablet,delayed 40 mg PO DAILY #30 tabs 12/29/24 release prednisone 10 mg tablet 30 mg (3 x 10 mg) PO DAILY #20 tabs 12/29/24 sacubitril 24 mg-valsartan 26 mg 1 tab PO BID #60 tabs 12/29/24 tablet (Entresto) tramadol 50 mg tablet 50 mg PO Q8H PRN Pain Scale 7-10 7 12/29/24 days #21 tabs Allergies Allergy/AdvReac Type Severity Reaction Status Date / Time Sulfa (Sulfonamide Allergy Unknown Verified 01/03/25 00:05 Antibiotics) Opioid HPI Opioid Management Most Recent Pain and Opioid Data: Last Pain Scale 10 Today, 01:14 Last Pain Assessment 12/27/24, 03:00 Last MAR Pain Assessment Today, 01:14 Last ORT Total Score 0 12/26/24, 09:25 Last ORT Risk Category Low Risk 12/26/24, 09:25 Review of Systems ROS Status of ROS 10 or more systems reviewed and unremarkable except as noted in history and below [facility] Medical History (Updated 01/03/25 @ 02:45 by Leonardo Holden MD) Acute diastolic heart failure ?I50.31 - Acute diastolic (congestive) heart failure (ICD-10) Hypomagnesemia ?E83.42 - Hypomagnesemia (ICD-10) Lactic acidosis ?E87.20 - Acidosis, unspecified (ICD-10) Sepsis ?A41.9 - Sepsis, unspecified organism (ICD-10) Acute right-sided back pain with sciatica ?M54.41 - Lumbago with sciatica, right side (ICD-10) Intractable low back pain ?M54.59 - Other low back pain (ICD-10) Right lumbar radiculopathy ?M54.16 - Radiculopathy, lumbar region (ICD-10) History of CVA (cerebrovascular accident) ?Z86.73 - Personal history of transient ischemic attack (TIA), and cerebral infarction without residual deficits (ICD-10) High cholesterol ?E78.00 - Pure hypercholesterolemia, unspecified (ICD-10) Atrial fibrillation ?I48.91 - Unspecified atrial fibrillation (ICD-10) Hypertension ?I10 - Essential (primary) hypertension (ICD-10) Surgical History (Updated 12/26/24 @ 09:21 by Alta Culp RN) 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.612 - Presence of left artificial shoulder joint (ICD-10) History of hysterectomy ?Z90.710 - Acquired absence of both cervix and uterus (ICD-10) Family History (Updated 12/26/24 @ 09:22 by Alta Culp RN) Father Family history of myocardial infarction Social History (Updated 12/26/24 @ 09:23 by Alta Culp RN) Within the past year, how often did you have a drink containing alcohol: 2-4 times a month Smoking status: Former smoker Non-prescribed substance use: denies use Highest level of school completed/degree received: GED or equivalent Little interest or pleasure in doing things: not at all Feeling down, depressed, or hopeless: not at all Exam Constitutional Vital Signs, click to edit/add: Last Vital Signs Temp 97.7 F 01/03/25 00:06 Pulse 58 L 01/03/25 00:06 Resp 20 01/03/25 00:06 BP 110/90 01/03/25 00:06 Pulse Ox 98 01/03/25 00:06 O2 Del Method Room Air 01/03/25 00:06 Common normals: no apparent distress, average body habitus, oriented x3, no limitations, healthy appearing, alert and well nourished [facility] Common normals: normocephalic Eye Common normals: PERRL, EOMs intact bilaterally and conjunctivae normal Respiratory Common normals: normal respiratory effort, no retractions and no use of accessory muscles Cardio Common normals: regular rate, regular rhythm, S1 normal heart sound and S2 normal heart sound Extremity Common normals: normal to inspection and full ROM Neuro Common normals: oriented x3, CN's II-XII intact bilaterally and moves all extremities Psych Appearance: grossly normal Course Vital Signs Vital signs: Vital Signs Temperature 97.7 F 01/03/25 00:06 Pulse Rate 58 L 01/03/25 00:06 Respiratory Rate 20 01/03/25 00:06 Blood Pressure 110/90 01/03/25 00:06 Pulse Oximetry 98 01/03/25 00:06 Oxygen Delivery Method Room Air 01/03/25 00:06 Temperature 97.7 F 01/03/25 00:06 Pulse Rate 58 L 01/03/25 00:06 Respiratory Rate 20 01/03/25 00:06 Blood Pressure 110/90 01/03/25 00:06 Pulse Oximetry 98 01/03/25 00:06 Oxygen Delivery Method Room Air 01/03/25 00:06 MDM - Extremity Injury (Lower) MDM Narrative Medical decision making narrative: patient presents with right sciatica pain. no associated weakness or bowel/bladder issues. Ongoing pain for several weeks. Has upcoming appointment this Friday with pain clinic. Medicated in the department with magnesium, solumedrol and morphine and is feeling better. Discharged with a prescription for prednisone Discharge Plan Discharge Chief Complaint: Extremity Injury, Lower Clinical Impression: Sciatica Patient Disposition: Home, Self-Care Prescriptions / Home Meds: No Action alendronate 70 mg tablet 70 mg PO .weekly Rx Instructions: mondays diclofenac sodium 75 mg tablet,delayed release (DR/EC) 75 mg PO BID PRN (Reason: pain) diltiazem HCl 60 mg tablet 60 mg PO DAILY metoprolol tartrate 25 mg tablet 12.5 mg PO BID gabapentin 100 mg capsule 100 mg PO .QHS hydrocodone-acetaminophen 5-325 mg tablet 1 tab PO Q8H PRN (Reason: pain) ondansetron HCl 4 mg tablet 4 mg PO Q6H PRN (Reason: nausea and vomiting) cholecalciferol (vitamin D3) 50 mcg (2,000 unit) tablet 50 mcg PO DAILY cefdinir 300 mg capsule 600 mg PO DAILY Qty: 14 0RF furosemide 40 mg Tablet 40 mg PO QD Qty: 30 11RF isosorbide mononitrate 30 mg Tablet Extended Release 24 Hr 30 mg PO QD Qty: 30 11RF magnesium oxide 400 mg (241.3 mg magnesium) Tablet 400 mg PO BID Qty: 60 11RF gabapentin 300 mg Capsule 300 mg PO QHS Qty: 30 11RF Rx Instructions: Plus the 100 mg in the am tramadol 50 mg Tablet 50 mg PO Q8H PRN (Reason: Pain Scale 7-10) 7 Days Qty: 21 0RF levothyroxine 25 mcg Tablet 25 mcg PO ACB Qty: 30 11RF pantoprazole 40 mg Tablet,Delayed Release (Dr/Ec) 40 mg PO DAILY Qty: 30 11RF Entresto 24-26 mg Tablet 1 tab PO BID Qty: 60 11RF prednisone 10 mg tablet 30 mg PO DAILY Qty: 20 0RF Rx Instructions: 3/day for 3 days, 2/day for 3 days, 1/day for 3 days, 1/2 /day for 4 days simvastatin 10 mg tablet 10 mg PO QPM warfarin 2.5 mg tablet 2.5 mg PO DAILY Patient Comments: FRIDAY THRU FRIDAY Print Language: Icelandic Instructions: Sciatica (ED) Additional Instructions: follow up with your doctor this week for recheck Referrals: LIGIA BELLAMY [Primary Care Provider, Family Practice] - 1 week
[2025-01-03] MEDS: MAGNESIUM SULFATE IN WATER 2 GM/50 ML PREMIX IV (01:13)
[2025-01-03 01:14] LABS: Basophils Percent Auto 0.1 % (0.2-2.0); Eosinophils Percent Auto 0.3 % (0.9-7.0); Hematocrit 37.8 % (36.0-48.0); Hemoglobin 12.4 g/dL (12.0-16.0); Immature Granulocytes Abs Auto 0.07 10^3/uL (0.00-0.03); Immature Granulocytes Pct Auto 0.7 % (0.0-0.5); Lymphocytes Absolute Auto 1.3 10^3/uL (1.2-3.8); Lymphocytes Percent Auto 13.8 % (20.5-60.0); Mean Corpuscular HGB Conc 32.8 g/dL (29.9-35.2); Mean Corpuscular Hemoglobin 30.5 pg (26.7-34.0); Mean Corpuscular Volume 92.9 fL (81.0-99.0); Mean Platelet Volume 11.9 fL (9.5-13.5); Monocytes Absolute Auto 1.1 10^3/uL (0.3-0.8); Monocytes Percent Auto 11.1 % (1.7-12.0); Neutrophils Absolute Auto 7.1 10^3/uL (1.4-6.5); Platelet Count 257 10^3/uL (150-450); Red Blood Count 4.07 10^6/uL (4.20-5.40); Red Cell Distribution Width 16.6 % (11.0-15.0); White Blood Count 9.6 10^3/uL (4.0-11.0)
[2025-01-03] MEDS: MORPHINE SULFATE 2 MG/ML SYRINGE IV (01:14)
[2025-01-03] MEDS: METHYLPREDNISOLONE SOD SUCC PF 125 MG/2 ML VIAL IVP (01:14)
[2025-01-03 01:26] LABS: Anion Gap 9.7; BUN Creatinine Ratio 31.1; C Reactive Protein 4.07 mg/dL (<=0.50); Calcium 9.9 mg/dL (8.5-10.1); Chloride 105 mmol/L (98-107); Estimated GFR (African America 52 (>=60 mL/min/1.73m^2); Estimated GFR (Non-African Ame 43 (>=60 mL/min/1.73m^2); Glucose 129 mg/dL (74-106); Potassium 3.7 mmol/L (3.5-5.1); Sodium 144 mmol/L (136-145)
[2025-01-03 01:27] LABS: INR 1.76; Prothrombin Time 17.6 sec (9.0-11.6)
[2025-01-03 02:00] VITALS: PULSE 121; O2SAT 96
[2025-01-03 03:13] VITALS: BP 117/90; PULSE 112; O2SAT 98
== END 2025-01-03 03:14 | disposition home or self-care (01) ==
PROVIDERS: Emergency Provider Internal Medicine; PCP Nurse Practitioner Family
DX: M54.31 Sciatica, right side (principal); Z96.612 Presence of left artificial shoulder joint; Z90.710 Acquired absence of both cervix and uterus; Z87.891 Personal history of nicotine dependence; Z79.01 Long term (current) use of anticoagulants
CPT/HCPCS: 36415; 80048; 85025; 85610; 86140; 96365; 96375; 99285; J2270; J2919; J3475

== ENCOUNTER 2025-01-05 01:30 | Emergency (ER) | payer MEDICARE, SELFPAY ==
[2025-01-05 01:40] VITALS: BP 137/89; PULSE 86; TEMP 36.5; O2SAT 98; BMI 24.3
--- OUTSIDE RECORDS SUMMARY | 2025-01-05 01:41 | XMS_ITS | CCD ---
Author Organization [facility] CliniSyut Care Team Providers Care Airline Station Agent Name Role Phone DANIEL ., DR DE [...] Unavailable PAY ., DR BAEZ Attending Unavailable [place], DR CONCEPCIÓN Wang Consulting Unavailable PAY ., [...] Consulting Unavailable JOSESITO, FATMATA Consulting Unavailable Josesito SENIOR SALES ASSOCIATE - INFORMATION SYSTEMS SPECIALIST, Fatmata S Primary Care Provide r TAE [...] Sulfonamides (Antibiotic) Drug allergy (disorder) 3 [facility] (3 sources) Penicillins Propensity to adverse reactions to drug 4 [facility] (3 sources) Sulfonamides (Antibiotic) Propensity to adverse reactions to drug 4 [facility] Medications Current Medications Medication Drug Class(es) [...] 15 tablet 0 01/14/2024 02/13/2024 Active sennosides, nursing home 1.76 mg/ml oral solution (3 sources) Start: [...] Onset: 03-01-2022 Episodic Other aftercare (1 source) 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; Translations: [INTERMEDIATE CURRNT USE ANTICOAGULANTS] Onset: 08-12-2022 Episodic Other aftercare (1 source) prison (current) use of aspirin; Translations: [INTERMEDIATE CURRENT USE OF ASPIRIN] Onset: 08-12-2022 Episodic Other aftercare (2 sources) Other 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 (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 therapy; Translations: [Other watermaster (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 therapy] Onset: 07-03-2023 Episodic Other [...] by: Mary Gilmore PA Preliminary result Normal [facility] XR SHOULDER LEFT (MIN 2 VIEW [...] by: Mary Gilmore PA Preliminary result Normal [facility] XR FEMUR RIGHT (MIN 2 VIEWS) [...] Austin Zee DO 06/02/24 Final result Normal [facility] XR SHOULDER LEFT (MIN 2 VIEW [...] by: Austin Zee, 06/02/24 Final result Normal [facility] XR FEMUR RIGHT (MIN 2 VIEWS) [...] by: Austin Zee, 03/17/24 Final result Normal [facility] XR SHOULDER LEFT (MIN 2 VIEW [...] by: Austin Zee, 03/17/24 Final result Normal [facility] XR FEMUR RIGHT (MIN 2 VIEWS) [...] by: Austin Zee, 02/25/24 Final result Normal [facility] XR SHOULDER LEFT (MIN 2 VIEW [...] by: Austin Zee, 02/25/24 Final result Normal [facility] Basic Metab w/rfx MGon 02-22 Anion gap [Moles/Vol] 6 mmol/L Low 9-16 [facility] Comment on above: Performed By: #### B C #### [facility] [address] [place] [address] Rib Matcher And Fitter: Sarath Olivera MD Calcium [Mass/Vol] 8.6 mg/dL Normal 8.6-10.4 [facility] Comment on above: Performed By: #### B C #### [facility] [address] [place], [place] [phone] Rib Matcher And Fitter: Sarath Olivera MD Chloride [Moles/Vol] 108 mmol/L High 98-107 [facility] Comment on above: Performed By: #### B C #### [address] [address] Rib Matcher And Fitter: Sarath Olivera MD CO2 [Moles/Vol] 30 mmol/L Normal 20-31 [facility] Comment on above: Performed By: #### B C #### [address] [address] Rib Matcher And Fitter: Sarath Olivera MD Creatinine [Mass/Vol] 0.7 mg/dL Normal 0.50-0.90 [facility] Comment on above: Performed By: #### B C #### [address] [address] Rib Matcher And Fitter: Sarath Olivera MD GFR/1.73 sq M.predicted among non-blacks MDRD (S/P/Bld) [Vol rate/Area] 86 mL/min/{1.73_m2} Normal >60 [facility] Comment on above: Result Comment: These [...] secretion. Performed By: #### B C #### [address] [address] Rib Matcher And Fitter: Sarath Olivera MD Glucose [Mass/Vol] 91 mg/dL Normal 74-99 [facility] Comment on above: Performed By: #### B C #### [address] [address] Rib Matcher And Fitter: Sarath Olivera MD Potassium [Moles/Vol] 3.9 mmol/L Normal 3.7-5.3 [facility] Comment on above: Performed By: #### B C #### [address] [address] Rib Matcher And Fitter: Sarath Olivera MD Sodium [Moles/Vol] 144 mmol/L Normal 136-145 [facility] Comment on above: Performed By: #### B C #### [address] [address] Rib Matcher And Fitter: Sarath Olivera MD Urea nitrogen [Mass/Vol] 20 mg/dL Normal 8-23 [facility] Comment on above: Performed By: #### B C #### [address] [address] Rib Matcher And Fitter: Sarath Olivera MD CBCon 02-23-2024 Erythrocyte distribution width (RBC) [Ratio] 17.4 % High 11.8-14.4 [facility] Comment on above: Performed By: #### B C #### [address] [address] Rib Matcher And Fitter: Sarath Olivera MD Hematocrit (Bld) [Volume fraction] 35.7 % Low 36.3-47.1 [facility] Comment on above: Performed By: #### B C #### [address] [address] Rib Matcher And Fitter: Sarath Olivera MD Hemoglobin (Bld) [Mass/Vol] 10.5 g/dL Low 11.9-15.1 [facility] Comment on above: Performed By: #### B C #### [address] [address] Rib Matcher And Fitter: Sarath Olivera MD MCH (RBC) [Entitic mass] 30.0 pg Normal 25.2-33.5 [facility] Comment on above: Performed By: #### B C #### [address] [address] Rib Matcher And Fitter: Sarath Olivera MD MCHC (RBC) [Mass/Vol] 29.4 g/dL Normal 28.4-34.8 [facility] Comment on above: Performed By: #### B C #### [address] [address] Rib Matcher And Fitter: Sarath Olivera MD MCV (RBC) [Entitic vol] 102.0 fL Normal 82.6-102.9 [facility] Comment on above: Performed By: #### B C #### [address] [address] Rib Matcher And Fitter: Sarath Olivera MD NRBC Automated 0.0 per 100 WBC Normal 0.0 [facility] Comment on above: Performed By: #### B C #### [address] [address] Rib Matcher And Fitter: Sarath Olivera MD Platelet mean volume (Bld) [Entitic vol] 11.8 fL Normal 8.1-13.5 [facility] Comment on above: Performed By: #### B C #### [address] [address] Rib Matcher And Fitter: Sarath Olivera MD Platelets (Bld) [#/Vol] 181 10*3/uL Normal 138-453 [facility] Comment on above: Performed By: #### B C #### [address] [address] Rib Matcher And Fitter: Sarath Olivera MD RBC (Bld) [#/Vol] 3.50 10*6/uL Low 3.95-5.11 [facility] Comment on above: Performed By: #### B C #### [address] [address] Rib Matcher And Fitter: Sarath Olivera MD WBC (Bld) [#/Vol] 5.8 10*3/uL Normal 3.5-11.3 [facility] Comment on above: Performed By: #### B C #### [address] [address] Rib Matcher And Fitter: Sarath Olivera MD PTon 02-23-2024 INR Coag (PPP) [Relative time] 1.6 {INR} Normal [facility] Comment on above: Result Comment: Therapeutic Range: Moderate Anticoagulant Intensity: INR = 2.0-3.0 High Anticoagulant Intensity: INR = 2.5-3.5 Performed By: #### B C #### [address] [address] Rib Matcher And Fitter: Sarath Olivera MD PT Coag (PPP) [Time] 18.8 s High 11.7-14.9 [facility] Comment on above: Performed By: #### B C #### [address] [address] Rib Matcher And Fitter: Sarath Olivera MD Basic Metab w/rfx MGon 02-21 Anion gap [Moles/Vol] 7 mmol/L Low 9-16 [facility] Comment on above: Performed By: #### B C #### [address] [address] Rib Matcher And Fitter: Sarath Olivera MD Calcium [Mass/Vol] 8.3 mg/dL Low 8.6-10.4 [facility] Comment on above: Performed By: #### B C #### [address] [address] Rib Matcher And Fitter: Sarath Olivera MD Chloride [Moles/Vol] 107 mmol/L Normal 98-107 [facility] Comment on above: Performed By: #### B C #### [address] [address] Rib Matcher And Fitter: Sarath Olivera MD CO2 [Moles/Vol] 28 mmol/L Normal 20-31 [facility] Comment on above: Performed By: #### B C #### [facility] VENNCOMM [address] [place] [address] Rib Matcher And Fitter: Sarath Olivera MD Creatinine [Mass/Vol] 0.9 mg/dL Normal 0.50-0.90 [facility] Comment on above: Performed By: #### B C #### [facility] [address] [place] [address] Rib Matcher And Fitter: Sarath Olivera MD GFR/1.73 sq M.predicted among non-blacks MDRD (S/P/Bld) [Vol rate/Area] 67 mL/min/{1.73_m2} Normal >60 [facility] Comment on above: Result Comment: These [...] secretion. Performed By: #### B C #### [facility] [address] [place] [address] Rib Matcher And Fitter: Sarath Olivera MD Glucose [Mass/Vol] 105 mg/dL High 74-99 [facility] Comment on above: Performed By: #### B C #### [facility] [address] [place] [address] Rib Matcher And Fitter: Sarath Olivera MD Potassium [Moles/Vol] 4.0 mmol/L Normal 3.7-5.3 [facility] Comment on above: Performed By: #### B C #### [facility] [address] [place] [address] Rib Matcher And Fitter: Sarath Olivera MD Sodium [Moles/Vol] 142 mmol/L Normal 136-145 [facility] Comment on above: Performed By: #### B C #### [address] [address] Rib Matcher And Fitter: Sarath Olivera MD Urea nitrogen [Mass/Vol] 24 mg/dL High 8- [facility] Comment on above: Performed By: #### B C #### [address] [address] Rib Matcher And Fitter: Sarath Olivera MD CBCon 02-22-2024 Erythrocyte distribution width (RBC) [Ratio] 17.2 % High 11.8-14.4 [facility] Comment on above: Performed By: #### B C #### [address] [address] Rib Matcher And Fitter: Sarath Olivera MD Hematocrit (Bld) [Volume fraction] 32.6 % Low 36.3-47.1 [facility] Comment on above: Performed By: #### B C #### [address] [address] Rib Matcher And Fitter: Sarath Olivera MD Hemoglobin (Bld) [Mass/Vol] 9.9 g/dL Low 11.9-15.1 [facility] Comment on above: Performed By: #### B C #### [address] [address] Rib Matcher And Fitter: Sarath Olivera MD MCH (RBC) [Entitic mass] 30.6 pg Normal 25.2-33.5 [facility] Comment on above: Performed By: #### B C #### [address] [address] Rib Matcher And Fitter: Sarath Olivera MD MCHC (RBC) [Mass/Vol] 30.4 g/dL Normal 28.4-34.8 [facility] Comment on above: Performed By: #### B C #### [address] [address] Rib Matcher And Fitter: Sarath Olivera MD MCV (RBC) [Entitic vol] 100.6 fL Normal 82.6-102.9 [facility] Comment on above: Performed By: #### B C #### [address] [address] Rib Matcher And Fitter: Sarath Olivera MD NRBC Automated 0.0 per 100 WBC Normal 0.0 [facility] Comment on above: Performed By: #### B C #### [address] [address] Rib Matcher And Fitter: Sarath Olivera MD Platelet mean volume (Bld) [Entitic vol] 12.0 fL Normal 8.1-13.5 [facility] Comment on above: Performed By: #### B C #### [address] [address] Rib Matcher And Fitter: Sarath Olivera MD Platelets (Bld) [#/Vol] 192 10*3/uL Normal 138-453 [facility] Comment on above: Performed By: #### B C #### [address] [address] Rib Matcher And Fitter: Sarath Olivera MD RBC (Bld) [#/Vol] 3.24 10*6/uL Low 3.95-5.11 [facility] Comment on above: Performed By: #### B C #### [address] [address] Rib Matcher And Fitter: Sarath Olivera MD WBC (Bld) [#/Vol] 8.0 10*3/uL Normal 3.5-11.3 [facility] Comment on above: Performed By: #### B C #### [address] [address] Rib Matcher And Fitter: Sarath Olivera MD PTon 02-22-2024 INR Coag (PPP) [Relative time] 1.6 {INR} Normal [facility] Comment on above: Result Comment: Therapeutic Range: Moderate Anticoagulant Intensity: INR = 2.0-3.0 High Anticoagulant Intensity: INR = 2.5-3.5 Performed By: #### D BOOKER UAMIC #### [facility] [address] [place] [address] Rib Matcher And Fitter: Sarath Olivera MD PT Coag (PPP) [Time] 18.6 s High 11.7-14.9 [facility] Comment on above: Performed By: #### D BOOKER UAMIC #### [facility] [address] [place] [address] Rib Matcher And Fitter: Sarath Olivera MD Basic Metab w/rfx MGon 02-20 Anion gap [Moles/Vol] 6 mmol/L Low 9-16 [facility] Comment on above: Performed By: #### B MPX, PT, CBC ####[facility] [address] [place], [place] [address])[phone] Director: Sarath Olivera MD Calcium [Mass/Vol] 8.5 mg/dL Low 8.6-10.4 [facility] Comment on above: Performed By: #### B MPX, PT, CBC ####[facility] [address] [place], [place] [phone] Director: Sarath Olivera MD Chloride [Moles/Vol] 108 mmol/L High 98-107 [facility] Comment on above: Performed By: #### B MPX, PT, CBC ####[facility] [address] [place], [place] [phone] Director: Sarath Olivera MD CO2 [Moles/Vol] 29 mmol/L Normal 20-31 [facility] Comment on above: Performed By: #### B MPX, PT, CBC ####[facility] [address] [place], [place] [address])[phone] Director: Sarath Olivera MD Creatinine [Mass/Vol] 0.7 mg/dL Normal 0.50-0.90 [facility] Comment on above: Performed By: #### B MPX, PT, CBC ####[facility] [address] [place] [address] Lab Director: Sarath Olivera MD GFR/1.73 sq M.predicted among non-blacks MDRD (S/P/Bld) [Vol rate/Area] 81 mL/min/{1.73_m2} Normal >60 [facility] Comment on above: Result Comment: These [...] MPX, PT, CBC ####[facility] [address] [place] [address] [phone] Director: Sarath Olivera MD Glucose [Mass/Vol] 122 mg/dL High 74-99 [facility] Comment on above: Performed By: #### B MPX, PT, CBC ####[facility] [address] [place] [address] [phone] Director: Sarath Olivera MD Potassium [Moles/Vol] 4.2 mmol/L Normal 3.7-5.3 [facility] Comment on above: Performed By: #### B MPX, PT, CBC ####[facility] [address] [place] [address] [phone] Director: Sarath Olivera MD Sodium [Moles/Vol] 143 mmol/L Normal 136-145 [facility] Comment on above: Performed By: #### B MPX, PT, CBC ####[facility] [address] [place] [address] Lab Director: Sarath Olivera MD Urea nitrogen [Mass/Vol] 22 mg/dL Normal 8-23 [facility] Comment on above: Performed By: #### B MPX, PT, CBC ####[facility] [address] [place], [place] [phone] Director: Sarath Olivera MD CBCon 02-21-2024 Erythrocyte distribution width (RBC) [Ratio] 17.5 % High 11.8-14.4 [facility] Comment on above: Performed By: #### B MPX, PT, CBC ####[facility] [address] [place], [place] [phone] Director: Sarath Olivera MD Hematocrit (Bld) [Volume fraction] 32.1 % Low 36.3-47.1 [facility] Comment on above: Performed By: #### B MPX, PT, CBC ####[facility] [address] [place], [place] [phone] Director: Sarath Olivera MD Hemoglobin (Bld) [Mass/Vol] 9.7 g/dL Low 11.9-15.1 [facility] Comment on above: Performed By: #### B MPX, PT, CBC ####[facility] [address] [place], [place] [phone] Director: Sarath Olivera MD MCH (RBC) [Entitic mass] 30.5 pg Normal 25.2-33.5 [facility] Comment on above: Performed By: #### B MPX, PT, CBC ####[facility] [address] [place], [place] [phone] Director: Sarath Olivera MD MCHC (RBC) [Mass/Vol] 30.2 g/dL Normal 28.4-34.8 [facility] Comment on above: Performed By: #### B MPX, PT, CBC ####[facility] [address] [place], [place] [phone] Director: Sarath Olivera MD MCV (RBC) [Entitic vol] 100.9 fL Normal 82.6-102.9 [facility] Comment on above: Performed By: #### B MPX, PT, CBC ####[facility] [address] [place] [address] [phone] Director: Sarath Olivera MD NRBC Automated 0.0 per 100 WBC Normal 0.0 [facility] Comment on above: Performed By: #### B MPX, PT, CBC ####[address] [phone] Director: Sarath Olivera MD Platelet mean volume (Bld) [Entitic vol] 11.8 fL Normal 8.1-13.5 [facility] Comment on above: Performed By: #### B MPX, PT, CBC ####[facility] [address] [place] [address] [phone] Director: Sarath Olivera MD Platelets (Bld) [#/Vol] 183 10*3/uL Normal 138-453 [facility] Comment on above: Performed By: #### B MPX, PT, CBC ####[address] [phone] Director: Sarath Olivera MD RBC (Bld) [#/Vol] 3.18 10*6/uL Low 3.95-5.11 [facility] Comment on above: Performed By: #### B MPX, PT, CBC ####[facility] [address] [place] [address] [phone] Director: Sarath Olivera MD WBC (Bld) [#/Vol] 10.7 10*3/uL Normal 3.5-11.3 [facility] Comment on above: Performed By: #### B MPX, PT, CBC ####[facility] [address] Lab Director: Sarath Olivera MD PTon 02-21-2024 INR Coag (PPP) [Relative time] 1.6 {INR} Normal [facility] Comment on above: Result Comment: Therapeutic Range: Moderate Anticoagulant Intensity: INR = 2.0-3.0 High Anticoagulant Intensity: INR = 2.5-3.5 Performed By: #### B MPX, PT, CBC ####[address] [address] Lab Director: Sarath Olivera MD PT Coag (PPP) [Time] 18.8 s High 11.7-14.9 [facility] Comment on above: Performed By: #### B MPX, PT, CBC ####[facility] [address] [place] [address] Lab Director: Sarath Olivera MD Basic Metab w/rfx MGon 02-199 Anion gap [Moles/Vol] 6 mmol/L Low 9-16 [facility] Comment on above: Performed By: #### P T, BMPX, CBC ####[facility] [address] [place] [address] Lab Director: Sarath Olivera MD Calcium [Mass/Vol] 8.6 mg/dL Normal 8.6-10.4 [facility] Comment on above: Performed By: #### P T, BMPX, CBC ####[facility] [address] [place] [address] Lab Director: Sarath Olivera MD Chloride [Moles/Vol] 107 mmol/L Normal 98-107 [facility] Comment on above: Performed By: #### P T, BMPX, CBC ####[facility] [address] [place] [address] Lab Director: Sarath Olivera MD CO2 [Moles/Vol] 30 mmol/L Normal 20-31 [facility] Comment on above: Performed By: #### P T, BMPX, CBC ####[facility] [address] [place] [address] Lab Director: Sarath Olivera MD Creatinine [Mass/Vol] 0.9 mg/dL Normal 0.50-0.90 [facility] Comment on above: Performed By: #### P T, BMPX, CBC ####[facility] [address] [place] [address] Lab Director: Sarath Olivera MD GFR/1.73 sq M.predicted among non-blacks MDRD (S/P/Bld) [Vol rate/Area] 64 mL/min/{1.73_m2} Normal >60 [facility] Comment on above: Result Comment: These [...] By: #### P T, BMPX, CBC ####[facility] [address] [place] [address] Lab Director: Sarath Olivera MD Glucose [Mass/Vol] 143 mg/dL High 74-99 [facility] Comment on above: Performed By: #### P T, BMPX, CBC ####[facility] [address] [place] [address] Lab Director: Sarath Olivera MD Potassium [Moles/Vol] 4.2 mmol/L Normal 3.7-5.3 [facility] Comment on above: Performed By: #### P T, BMPX, CBC ####[facility] [address] [place] [address] Lab Director: Sarath Olivera MD Sodium [Moles/Vol] 143 mmol/L Normal 136-145 [facility] Comment on above: Performed By: #### P T, BMPX, CBC ####[facility] [address] [place] [address] Lab Director: Sarath Olivera MD Urea nitrogen [Mass/Vol] 20 mg/dL Normal 8-23 [facility] Comment on above: Performed By: #### P T, BMPX, CBC ####[facility] [address] [place] [address] Lab Director: Sarath Olivera MD CBCon 02-20-2024 Erythrocyte distribution width (RBC) [Ratio] 17.4 % High 11.8-14.4 [facility] Comment on above: Performed By: #### P T, BMPX, CBC ####[facility] [address] [place] [address] Lab Director: Sarath Olivera MD Hematocrit (Bld) [Volume fraction] 32.6 % Low 36.3-47.1 [facility] Comment on above: Performed By: #### P T, BMPX, CBC ####[facility] [address] [place] [address] Lab Director: Sarath Olivera MD Hemoglobin (Bld) [Mass/Vol] 9.9 g/dL Low 11.9-15.1 [facility] Comment on above: Performed By: #### P T, BMPX, CBC ####[facility] [address] [place] [address] Lab Director: Sarath Olivera MD MCH (RBC) [Entitic mass] 30.7 pg Normal 25.2-33.5 [facility] Comment on above: Performed By: #### P T, BMPX, CBC ####[facility] [address] [place] [address] Lab Director: Sarath Olivera MD MCHC (RBC) [Mass/Vol] 30.4 g/dL Normal 28.4-34.8 [facility] Comment on above: Performed By: #### P T, BMPX, CBC ####[facility] [address] [place] [address] [phone] Director: Sarath Olivera MD MCV (RBC) [Entitic vol] 100.9 fL Normal 82.6-102.9 [facility] Comment on above: Performed By: #### P T, BMPX, CBC ####[facility] [address] [place] [address] [phone] Director: Sarath Olivera MD NRBC Automated 0.0 per 100 WBC Normal 0.0 [facility] Comment on above: Performed By: #### P T, BMPX, CBC ####[address] [phone] Director: Sarath Olivera MD Platelet mean volume (Bld) [Entitic vol] 11.6 fL Normal 8.1-13.5 [facility] Comment on above: Performed By: #### P T, BMPX, CBC ####[address] [phone] Director: Sarath Olivera MD Platelets (Bld) [#/Vol] 176 10*3/uL Normal 138-453 [facility] Comment on above: Performed By: #### P T, BMPX, CBC ####[facility] [address] [place] [address] [phone] Director: Sarath Olivera MD RBC (Bld) [#/Vol] 3.23 10*6/uL Low 3.95-5.11 [facility] Comment on above: Performed By: #### P T, BMPX, CBC ####[facility] [address] [place] [address] [phone] Director: Sarath Olivera MD WBC (Bld) [#/Vol] 12.8 10*3/uL High 3.5-11.3 [facility] Comment on above: Performed By: #### P T, BMPX, CBC ####[facility] [address] [place] [address] Lab Director: Sarath Olivera MD PTon 02-20-2024 INR Coag (PPP) [Relative time] 1.7 {INR} Normal [facility] Comment on above: Result Comment: Therapeutic Range: Moderate Anticoagulant Intensity: INR = 2.0-3.0 High Anticoagulant Intensity: INR = 2.5-3.5 Performed By: #### P T, BMPX, CBC ####[facility] [address] [place] [address] Lab Director: Sarath Olivera MD PT Coag (PPP) [Time] 19.9 s High 11.7-14.9 [facility] Comment on above: Performed By: #### P T, BMPX, CBC ####[facility] [address] [place] [address] Lab Director: Sarath Olivera MD Basic Metab w/rfx MGon 02-18 Anion gap [Moles/Vol] 7 mmol/L Low 9-16 [facility] Comment on above: Performed By: #### C BC, PT, BMPX ####[facility] [address] [place] [address] Lab Director: Sarath Olivera MD Calcium [Mass/Vol] 8.3 mg/dL Low 8.6-10.4 [facility] Comment on above: Performed By: #### C BC, PT, BMPX ####[facility] [address] [place] [address] Lab Director: Sarath Olivera MD Chloride [Moles/Vol] 106 mmol/L Normal 98-107 [facility] Comment on above: Performed By: #### C BC, PT, BMPX ####[facility] [address] [place] [address] Lab Director: Sarath Olivera MD CO2 [Moles/Vol] 27 mmol/L Normal 20-31 [facility] Comment on above: Performed By: #### C BC, PT, BMPX ####[address] [address] Lab Director: Sarath Olivera MD Creatinine [Mass/Vol] 0.8 mg/dL Normal 0.50-0.90 [facility] Comment on above: Performed By: #### C PAOLA, PT, BMPX ####[address] [address] Lab Director: Sarath Olivera MD GFR/1.73 sq M.predicted among non-blacks MDRD (S/P/Bld) [Vol rate/Area] 78 mL/min/{1.73_m2} Normal >60 [facility] Comment on above: Result Comment: These [...] Performed By: #### C PAOLA PT, BMPX ####[facility] [address] [place] [address] Lab Director: Sarath Olivera MD Glucose [Mass/Vol] 174 mg/dL High 74-99 [facility] Comment on above: Performed By: #### C BC PT, BMPX ####[facility] [address] [place] [address] Lab Director: Sarath Olivera MD Potassium [Moles/Vol] 4.3 mmol/L Normal 3.7-5.3 [facility] Comment on above: Performed By: #### C BC, PT, BMPX ####[facility] [address] [place], [place] [phone] Director: Sarath Olivera MD Sodium [Moles/Vol] 140 mmol/L Normal 136-145 [facility] Comment on above: Performed By: #### C BC, PT, BMPX ####[facility] [address] [place], [place] [phone] Director: Sarath Olivera MD Urea nitrogen [Mass/Vol] 14 mg/dL Normal 8-23 [facility] Comment on above: Performed By: #### C BC, PT, BMPX ####[facility] [address] [place], [place] [phone] Director: Sarath Olivera MD CBCon 02-19-2024 Erythrocyte distribution width (RBC) [Ratio] 17.8 % High 11.8-14.4 [facility] Comment on above: Performed By: #### C BC, PT, BMPX ####[facility] [address] [place], [place] [address])[phone] Director: Sarath Olivera MD Hematocrit (Bld) [Volume fraction] 33.5 % Low 36.3-47.1 [facility] Comment on above: Performed By: #### C BC, PT, BMPX ####[facility] [address] [place], [place] [address])[phone] Director: Sarath Olivera MD Hemoglobin (Bld) [Mass/Vol] 9.7 g/dL Low 11.9-15.1 [facility] Comment on above: Performed By: #### C BC, PT, BMPX ####[facility] [address] [place], [place] [phone])[phone] Director: Sarath Olivera MD MCH (RBC) [Entitic mass] 31.1 pg Normal 25.2-33.5 [facility] Comment on above: Performed By: #### C BC, PT, BMPX ####[facility] [address] [place], [place] [phone] Director: Sarath Olivera MD MCHC (RBC) [Mass/Vol] 29.0 g/dL Normal 28.4-34.8 [facility] Comment on above: Performed By: #### C BC, PT, BMPX ####[facility] [address] [place], [place] [phone] Director: Sarath Olivera MD MCV (RBC) [Entitic vol] 107.4 fL High 82.6-102.9 [facility] Comment on above: Performed By: #### C BC, PT, BMPX ####[facility] [address] [place], [place] [phone] Director: Sarath Olivera MD NRBC Automated 0.0 per 100 WBC Normal 0.0 [facility] Comment on above: Performed By: #### C BC, PT, BMPX ####[facility] [address] [place] [address] [phone] Director: Sarath Olivera MD Platelet mean volume (Bld) [Entitic vol] 11.5 fL Normal 8.1-13.5 [facility] Comment on above: Performed By: #### C BC, PT, BMPX ####[facility] [address] [place] [address] [phone])[phone] Director: Sarath Olivera MD Platelets (Bld) [#/Vol] 165 10*3/uL Normal 138-453 [facility] Comment on above: Performed By: #### C BC, PT, BMPX ####[facility] [address] [place], [place] [phone] Director: Sarath Olivera MD RBC (Bld) [#/Vol] 3.12 10*6/uL Low 3.95-5.11 [facility] Comment on above: Performed By: #### C BC, PT, BMPX ####[facility] [address] [place], [place] [phone] Director: Sarath Olivera MD WBC (Bld) [#/Vol] 10.3 10*3/uL Normal 3.5-11.3 [facility] Comment on above: Performed By: #### C BC, PT, BMPX ####[facility] [address] [place], [place] [address])[phone] Director: Sarath Olivera MD PTon 7 INR Coag (PPP) [Relative time] 1.7 {INR} Normal [facility] Comment on above: Result Comment: Therapeutic Range: Moderate Anticoagulant Intensity: INR = 2.0-3.0 High Anticoagulant Intensity: INR = 2.5-3.5 Performed By: #### C BC, PT, BMPX ####[place], [place] [address])[phone] Director: Sarath Olivera MD PT Coag (PPP) [Time] 19.3 s High 11.7-14.9 [facility] Comment on above: Performed By: #### C BC, PT, BMPX ####[place], [place] [address])[phone] Director: Sarath Olivera MD CBC with Diffon 8 Abs. Basophil <0.03 Normal 0.00-0.20 [facility] Comment on above: Performed By: #### B C #### [facility] [address] [place] [address] [employer]: Sarath Olivera MD Abs. Eosinophil <0.03 Normal 0.00-0.44 [facility] Comment on above: Performed By: #### B C #### [facility] [address] [place] [address] [employer]: Sarath Olivera MD Abs.Imm.Granulocyte 0.06 k/uL Normal 0.00-0.30 [facility] Comment on above: Performed By: #### B C #### [address] [address] [employer]: Sarath Olivera MD Abs.Neutrophil (Seg) 9.40 k/uL High 1.50-8.10 [facility] Comment on above: Performed By: #### B C #### [address] [address] [employer]: Sarath Olivera MD Basophils/100 WBC (Bld) 0 % Normal 0-2 [facility] Comment on above: Performed By: #### B C #### [address] [address] [employer]: Sarath Olivera MD Eosinophils/100 WBC (Bld) 0 % Low 1-4 [facility] Comment on above: Performed By: #### B C #### [address] [address] [employer]: Sarath Olivera MD Erythrocyte distribution width (RBC) [Ratio] 17.9 % High 11.8-14.4 [facility] Comment on above: Performed By: #### B C #### [address] [address] [employer]: Sarath Olivera MD Hematocrit (Bld) [Volume fraction] 39.2 % Normal 36.3-47.1 [facility] Comment on above: Performed By: #### B C #### [address] [address] [employer]: Sarath Olivera MD Hemoglobin (Bld) [Mass/Vol] 11.9 g/dL Normal 11.9-15.1 [facility] Comment on above: Performed By: #### B C #### [address] [address] [employer]: Sarath Olivera MD Immature granulocytes/100 WBC (Bld) 1 % High 0 [facility] Comment on above: Performed By: #### B C #### [address] [address] [employer]: Sarath Olivera MD Lymphocytes (Bld) [#/Vol] 1.51 10*3/uL Normal 1.10-3.70 [facility] Comment on above: Performed By: #### B C #### [address] [address] [employer]: Sarath Olivera MD Lymphocytes/100 WBC (Bld) 13 % Low 24-43 [facility] Comment on above: Performed By: #### B C #### [address] [address] [employer]: Sarath Olivera MD MCH (RBC) [Entitic mass] 30.9 pg Normal 25.2-33.5 [facility] Comment on above: Performed By: #### B C #### [place] [address] [employer]: Sarath Olivera MD MCHC (RBC) [Mass/Vol] 30.4 g/dL Normal 28.4-34.8 [facility] Comment on above: Performed By: #### B C #### [address] [address] [employer]: Sarath Olivera MD MCV (RBC) [Entitic vol] 101.8 fL Normal 82.6-102.9 [facility] Comment on above: Performed By: #### B C #### [address] [address] [employer]: Sarath Olivera MD Monocytes (Bld) [#/Vol] 0.50 10*3/uL Normal 0.10-1.20 [facility] Comment on above: Performed By: #### B C #### [address] [address] [employer]: Sarath Olivera MD Monocytes/100 WBC (Bld) 4 % Normal 3-12 [facility] Comment on above: Performed By: #### B C #### [address] [address] [employer]: Sarath Olivera MD Neutrophil (Seg) 82 % High 36-65 [facility] Comment on above: Performed By: #### B C #### [address] [address] [employer]: Sarath Olivera MD NRBC Automated 0.0 per 100 WBC Normal 0.0 [facility] Comment on above: Performed By: #### B C #### [address] [address] [employer]: Sarath Olivera MD Platelet mean volume (Bld) [Entitic vol] 11.2 fL Normal 8.1-13.5 [facility] Comment on above: Performed By: #### B C #### [address] [address] [employer]: Sarath Olivera MD Platelets (Bld) [#/Vol] 254 10*3/uL Normal 138-453 [facility] Comment on above: Performed By: #### B C #### [address] [address] [employer]: Sarath Olivera MD RBC (Bld) [#/Vol] 3.85 10*6/uL Low 3.95-5.11 [facility] Comment on above: Performed By: #### B C #### [address] [address] [employer]: Sarath Olivera MD RBC morphology finding Nom (Bld) ANISOCYTOSIS PRESENT Normal [facility] Comment on above: Performed By: #### B C #### [address] [address] [employer]: Sarath Olivera MD WBC (Bld) [#/Vol] 11.5 10*3/uL High 3.5-11.3 [facility] Comment on above: Performed By: #### B C #### [address] [address] [employer]: Sarath Olivera MD Comp Metabolic Pr/rfx MGon 0 - Albumin [Mass/Vol] 3.6 g/dL Normal 3.5-5.2 [facility] Comment on above: Performed By: #### B C #### [address] [address] [employer]: Sarath Olivera MD Albumin/Glob Ratio 1.0 Normal 1.0-2.5 [facility] Comment on above: Performed By: #### B C #### [address] [address] [employer]: Sarath Olivear MD Alkaline Phos 131 U/L High 35-104 [facility] Comment on above: Performed By: #### B C #### [address] [address] [employer]: Sarath Olivera MD ALT [Catalytic activity/Vol] 7 U/L Low 10-35 [facility] Comment on above: Performed By: #### B C #### [address] [address] [employer]: Sarath Olivera MD Anion gap [Moles/Vol] 13 mmol/L Normal 9-16 [facility] Comment on above: Performed By: #### B C #### [address] [address] [employer]: Sarath Olivera MD AST [Catalytic activity/Vol] 26 U/L Normal 10-35 [facility] Comment on above: Performed By: #### B C #### [address] [address] [employer]: Sarath Olivera MD Bilirubin [Mass/Vol] 0.5 mg/dL Normal 0.00-1.20 [facility] Comment on above: Performed By: #### B C #### [address] [address] [employer]: Sarath Olivera MD Calcium [Mass/Vol] 9.0 mg/dL Normal 8.6-10.4 [facility] Comment on above: Performed By: #### B C #### [address] [address] [employer]: Sarath Olivera MD Chloride [Moles/Vol] 103 mmol/L Normal 98-107 [facility] Comment on above: Performed By: #### B C #### [address] [address] [employer]: Sarath Olivera MD CO2 [Moles/Vol] 27 mmol/L Normal 20-31 [facility] Comment on above: Performed By: #### B C #### [address] [address] [employer]: Sarath Olivera MD Creatinine [Mass/Vol] 0.9 mg/dL Normal 0.50-0.90 [facility] Comment on above: Performed By: #### B C #### [address] [address] [employer]: Sarath Olivera MD GFR/1.73 sq M.predicted among non-blacks MDRD (S/P/Bld) [Vol rate/Area] 61 mL/min/{1.73_m2} Normal >60 [facility] Comment on above: Result Comment: These [...] secretion. Performed By: #### B C #### [facility] [address] [place] [address] [employer]: Sarath Olivera MD Glucose [Mass/Vol] 240 mg/dL High 74-99 [facility] Comment on above: Performed By: #### B C #### [address] [address] [employer]: Sarath Olivera MD Potassium [Moles/Vol] 4.4 mmol/L Normal 3.7-5.3 [facility] Comment on above: Performed By: #### B C #### [facility] [address] [place] [address] [employer]: Sarath Olivera MD Protein [Mass/Vol] 6.4 g/dL Low 6.6-8.7 [facility] Comment on above: Performed By: #### B C #### [facility] [address] [place] [address] [employer]: Sarath Olivera MD Sodium [Moles/Vol] 143 mmol/L Normal 136-145 [facility] Comment on above: Performed By: #### B C #### [address] [address] [employer]: Sarath Olivera MD Urea nitrogen [Mass/Vol] 10 mg/dL Normal 8-23 [facility] Comment on above: Performed By: #### B C #### [address] [address] [employer]: Sarath Olivera MD PTon 02-18-2024 INR Coag (PPP) [Relative time] 1.4 {INR} Normal [facility] Comment on above: Result Comment: Therapeutic Range: Moderate Anticoagulant Intensity: INR = 2.0-3.0 High Anticoagulant Intensity: INR = 2.5-3.5 Performed By: #### B C #### [address] [address] [employer]: Sarath Olivera MD PT Coag (PPP) [Time] 17.1 s High 11.7-14.9 [facility] Comment on above: Performed By: #### B C #### [address] [address] [employer]: Sarath Olivera MD Type + Screenon 02-18-2024 Type + Screen Sample Expiration 02/20/2024,2359 Arm Band Number [id number] ABO/Rh(D) O POSITIVE Antibody Screen NEGATIVE Unit Number [id number] Blood Component Type Leukocyte Reduced Red Cell Unit Division 00 Status of Unit REL FROM ALLOC Transfusion Status OK TO TRANSFUSE Crossmatch Result COMPATIBLE Unit Number [id number] Blood Component Type Leukocyte Reduced Red Cell Unit Division 00 Status of Unit REL FROM ALLOC Transfusion Status OK TO TRANSFUSE Crossmatch Result COMPATIBLE Normal [facility] Comment on above: Performed By: #### T YS #### [address] [address] [employer]: Sarath Olivera MD XR SHOULDER LEFT (MIN [...] Lucian Dee MD 02/18/24 Final result Normal [facility] APTTon 02-17-2024 aPTT Coag (Bld) [Time] 28.7 s Normal 23.0-36.5 [facility] Comment on above: Result Comment: IV Heparin Therapy Range: 66.0-92.0 sec Performed By: #### D AU, UAMIC #### [address] [address] [employer]: Sarath Olivera MD aPTT Coag (Bld) [Time] 30.9 s Normal 23.0-36.5 [facility] Comment on above: Result Comment: IV Heparin Therapy Range: 66.0-92.0 sec Performed By: #### B C #### [address] [address] [employer]: Sarath Olivera MD FFP, Transfuseon 02-17-2024 FFP, Transfuse Unit Number [id number] Blood Component Type FRESH PLASMA Unit Division 00 Status of Unit TRANSFUSED Transfusion Status OK TO TRANSFUSE [facility] Comment on above: Performed By: #### B C #### [address] [address] [employer]: Sarath Olivera MD FFP, Transfuse Unit Number [id number] Blood Component Type FRESH PLASMA Unit Division 00 Status of Unit TRANSFUSED Transfusion Status OK TO TRANSFUSE [facility] Comment on above: Performed By: #### T FFP #### [address] [address] [employer]: Sarath Olivera MD PTon 02-17-2024 INR Coag (PPP) [Relative time] 1.5 {INR} Normal [facility] Comment on above: Result Comment: Therapeutic Range: Moderate Anticoagulant Intensity: INR = 2.0-3.0 High Anticoagulant Intensity: INR = 2.5-3.5 Performed By: #### D CECY CELESTE #### [facility] [address] [place] [address] [employer]: Sarath Olivera MD PT Coag (PPP) [Time] 17.4 s High 11.7-14.9 [facility] Comment on above: Performed By: #### D CECY CELESTE #### [facility] [address] [place] [address] [employer]: Sraath Olivera MD INR Coag (PPP) [Relative time] 1.7 {INR} Normal [facility] Comment on above: Result Comment: Therapeutic Range: Moderate Anticoagulant Intensity: INR = 2.0-3.0 High Anticoagulant Intensity: INR = 2.5-3.5 Performed By: #### B C #### [facility] [address] [place] [address] [employer]: Sarath Olivera MD PT Coag (PPP) [Time] 19.8 s High 11.7-14.9 [facility] Comment on above: Performed By: #### B C #### [facility] [address] [place] [address] [employer]: Sarath Olivera MD PT (Whole Blood)on 4 Intl. Normal. Ratio 2.0 Normal [facility] Comment on above: Result Comment: Therapeutic Range: Moderate Anticoagulant Intensity: INR = 2.0-3.0 High Anticoagulant Intensity: INR = 2.5-3.5 PT Coag (PPP) [Time] 23.6 s High 10.4-14.2 [facility] CBC with Auto Differentialon 02-02-2024 Basophils (Bld) [#/Vol] BON [employer] Basophils/100 WBC (Bld) 0 % 0 - 2 % [employer] Eosinophils (Bld) [#/Vol] 0.08 10*3/uL [employer] Eosinophils/100 WBC (Bld) 1 % 1 - 4 % [facility] Erythrocyte distribution width (RBC) [Ratio] 16.1 % High 11.8 - 14.4 % [facility] Hematocrit (Bld) [Volume fraction] 33.7 % Low 36.3 - 47.1 % [facility] Hemoglobin (Bld) [Mass/Vol] 10.4 g/dL Low 11.9 - 15.1 g/dL [facility] Immature granulocytes (Bld) [#/Vol] [facility] Immature granulocytes/100 WBC (Bld) 0 % 0 [facility] Interpretation and review of laboratory results Abnormal [facility] Lymphocytes/100 WBC (Bld) 34 % 24 - 43 % [facility] Lymphocytes/100 WBC (Bld) 1.89 % [facility] MCH (RBC) [Entitic mass] 30.6 pg 25.2 - 33.5 pg [facility] MCHC (RBC) [Mass/Vol] 30.9 g/dL 28.4 - 34.8 g/dL [facility] MCV (RBC) [Entitic vol] 99.1 fL 82.6 - 102.9 fL [facility] Monocytes/100 WBC (Bld) 8 % 3 - 12 % [facility] Monocytes/100 WBC (Bld) 0.44 % [facility] Neutrophils/100 WBC (Bld) 57 % 36 - 65 % [facility] Nucleated RBC/100 WBC (Bld) [Ratio] 0.0 % 0.0 per 100 WBC [facility] Platelet mean volume (Bld) [Entitic vol] 11.6 fL 8.1 - 13.5 fL [facility] Platelets (Bld) [#/Vol] 250 10*3/uL [facility] RBC (Bld) [#/Vol] 3.40 10*6/uL Low 3.95 - 5.1 1 m/uL [facility] Segmented neutrophils/100 WBC (Bld) 3.17 % [facility] WBC other (Bld) [#/Vol] 5.6 [facility] CBC with Diffon 02-02-2024 Abs. Basophil <0.03 Normal 0.00-0.20 [facility] Comment on above: Performed By: #### C P, CDP #### [facility] [address] [place], [place] [phone] [employer]: Concepción De La Torre MD Abs.Imm.Granulocyte <0.03 Normal 0.00-0.30 [facility] Comment on above: Performed By: #### C P, CDP #### [facility] [address] [place], [place] [address] [employer]: Concepción De La Torre MD Abs.Neutrophil (Seg) 3.17 k/uL Normal 1.50-8.10 [facility] Comment on above: Performed By: #### C P, CDP #### [facility] [address] [place], [facility]83 [employer]: Concepción De La Torre MD Basophils/100 WBC (Bld) 0 % Normal 0-2 [facility] Comment on above: Performed By: #### C P, CDP #### [facility] [address] [place] [address] [place] [place], [place] [phone] [employer]: Concepción De La Torre MD Eosinophils (Bld) [#/Vol] 0.08 10*3/uL Normal 0.00-0.44 [facility] Comment on above: Performed By: #### C P, CDP #### [facility] [address] [place], [place] [phone] [employer]: Concepción De La Torre MD Eosinophils/100 WBC (Bld) 1 % Normal 1-4 [facility] Comment on above: Performed By: #### C P, CDP #### [address] [place], [place] [phone] [employer]: Concepción De La Torre MD Erythrocyte distribution width (RBC) [Ratio] 16.1 % High 11.8-14.4 [facility] Comment on above: Performed By: #### C P, CDP #### [facility] [address] [place], [place] [phone] [employer]: Concepción De La Torre MD Hematocrit (Bld) [Volume fraction] 33.7 % Low 36.3-47.1 [facility] Comment on above: Performed By: #### C P, CDP #### [facility] [address] [place], [facility] [employer]: Concepción De La Torre MD Hemoglobin (Bld) [Mass/Vol] 10.4 g/dL Low 11.9-15.1 [facility] Comment on above: Performed By: #### C P, CDP #### [address] [place], [place] [phone] [employer]: Concepción De La Torre MD Immature granulocytes/100 WBC (Bld) 0 % Normal 0 [facility] Comment on above: Performed By: #### C P, CDP #### [address] [place], [place] [phone] [employer]: Concepción De La Torre MD Lymphocytes (Bld) [#/Vol] 1.89 10*3/uL Normal 1.10-3.70 [facility] Comment on above: Performed By: #### C P, CDP #### [facility] [address] [place] [address] Dr[place], [place] [address] Rib Matcher And Fitter: Concepción De La Torre MD Lymphocytes/100 WBC (Bld) 34 % Normal 24-43 [facility] Comment on above: Performed By: #### C P, CDP #### [address] [place], [facility]83 Rib Matcher And Fitter: Concepción De La Torre MD MCH (RBC) [Entitic mass] 30.6 pg Normal 25.2-33.5 [facility] Comment on above: Performed By: #### C P, CDP #### [address] [place], [place] [phone] Rib Matcher And Fitter: Concepción De La Torre MD MCHC (RBC) [Mass/Vol] 30.9 g/dL Normal 28.4-34.8 [facility] Comment on above: Performed By: #### C P, CDP #### [address] [place], [place] [phone] Rib Matcher And Fitter: Concepción De La Torre MD MCV (RBC) [Entitic vol] 99.1 fL Normal 82.6-102.9 [facility] Comment on above: Performed By: #### C P, CDP #### [address] [place], [place] [phone] Rib Matcher And Fitter: Concepción De La Torre MD Monocytes (Bld) [#/Vol] 0.44 10*3/uL Normal 0.10-1.20 [facility] Comment on above: Performed By: #### C P, CDP #### [address] [place], [place] [phone] Rib Matcher And Fitter: Concepción De La Torre MD Monocytes/100 WBC (Bld) 8 % Normal 3-12 [facility] Comment on above: Performed By: #### C P, CDP #### [address] [place], [place] [phone] Rib Matcher And Fitter: Concepción De La Torre MD Neutrophil (Seg) 57 % Normal 36-65 [facility] Comment on above: Performed By: #### C P, CDP #### [address] [place], [place] [phone] Rib Matcher And Fitter: Concepción De La Torer MD NRBC Automated 0.0 per 100 WBC Normal 0.0 [facility] Comment on above: Performed By: #### C P, CDP #### [address] [place], [place] [phone] Rib Matcher And Fitter: Concepción De La Torre MD Platelet mean volume (Bld) [Entitic vol] 11.6 fL Normal 8.1-13.5 [facility] Comment on above: Performed By: #### C P, CDP #### [facility] [address] [place] [address] Rib Matcher And Fitter: Concepción De La Torre MD Platelets (Bld) [#/Vol] 250 10*3/uL Normal 138-453 [facility] Comment on above: Performed By: #### C P, CDP #### [facility] [address] [place] [address] Dr. [place], [place] [phone] Rib Matcher And Fitter: Concepción De La Torre MD RBC (Bld) [#/Vol] 3.40 10*6/uL Low 3.95-5.11 [facility] Comment on above: Performed By: #### C P, CDP #### [address] [place], [place] [phone] Rib Matcher And Fitter: Concepción De La Torre MD WBC (Bld) [#/Vol] 5.6 10*3/uL Normal 3.5-11.3 [facility] Comment on above: Performed By: #### C P, CDP #### [address] [place], [place] [phone] Rib Matcher And Fitter: Concepción De La Torre MD Comp Metabolic Profon 2023 Albumin [Mass/Vol] 2.7 g/dL Low 3.5-5.2 [facility] Comment on above: Performed By: #### C P, CDP #### [facility] [address] [place] [address] Dr. [place], [place] [phone] Rib Matcher And Fitter: Concepción De La Torre MD Albumin/Glob Ratio 1.0 Normal 1.0-2.5 [facility] Comment on above: Performed By: #### C P, CDP #### [facility] [address] [place] [address] [place] [address] Rib Matcher And Fitter: Concepción De La Torre MD Alkaline Phos 116 U/L High 35-104 [facility] Comment on above: Performed By: #### C P, CDP #### [facility] [address] [place], [place] [phone] Rib Matcher And Fitter: Concepción De La Torre MD ALT [Catalytic activity/Vol] 10 U/L Normal 5-33 [facility] Comment on above: Performed By: #### C P, CDP #### [facility] [address] [place], [place] [phone] Rib Matcher And Fitter: Concepción De La Torre MD Anion gap [Moles/Vol] 11 mmol/L Normal 9-17 [facility] Comment on above: Performed By: #### C P, CDP #### [facility] [address] [place], [place] [phone] Rib Matcher And Fitter: Concepción De La Torre MD AST [Catalytic activity/Vol] 21 U/L Normal <32 [facility] Comment on above: Performed By: #### C P, CDP #### [facility] [address] [place], [place] [phone] Rib Matcher And Fitter: Concepción De La Torre MD Bilirubin [Mass/Vol] 0.4 mg/dL Normal 0.3-1.2 [facility] Comment on above: Performed By: #### C P, CDP #### [facility] [address] [place], [place] [phone] Rib Matcher And Fitter: Concepción De La Torre MD BUN/CRE Ratio 15 Normal 9-20 [facility] Comment on above: Performed By: #### C P, CDP #### [facility] [address] [place], [place] [phone] Rib Matcher And Fitter: Concepción De La Torre MD Calcium [Mass/Vol] 7.8 mg/dL Low 8.6-10.4 [facility] Comment on above: Performed By: #### C P, CDP #### [facility] [address] [place], [place] [phone] Rib Matcher And Fitter: Concepción De La Torre MD Chloride [Moles/Vol] 108 mmol/L High 98-107 [facility] Comment on above: Performed By: #### C P, CDP #### [facility] [address] [place], [place] [phone] Rib Matcher And Fitter: Concepción De La Torre MD CO2 [Moles/Vol] 24 mmol/L Normal 20-31 [facility] Comment on above: Performed By: #### C P, CDP #### [facility] [address] [place], [place] [phone] Rib Matcher And Fitter: Concepción De La Torre MD Creatinine [Mass/Vol] 0.8 mg/dL Normal 0.5-0.9 [facility] Comment on above: Performed By: #### C P, CDP #### [facility] [address] [place] [address] Rib Matcher And Fitter: Concepción De La Torre MD GFR/1.73 sq M.predicted among non-blacks MDRD (S/P/Bld) [Vol rate/Area] 73 mL/min/{1.73_m2} Normal >60 [facility] Comment on above: Result Comment: [...] Performed By: #### C P, CDP #### [facility] [address] [place], [place] [phone] Rib Matcher And Fitter: Concepción De La Torre MD Glucose [Mass/Vol] 123 mg/dL High 70-99 [facility] Comment on above: Performed By: #### C P, CDP #### [facility] [address] [place] [address] Rib Matcher And Fitter: Concepción De La Torre MD Potassium [Moles/Vol] 4.0 mmol/L Normal 3.7-5.3 [facility] Comment on above: Performed By: #### C P, CDP #### [facility] [address] [place] [address] Rib Matcher And Fitter: Concepción De La Torre MD Protein [Mass/Vol] 5.4 g/dL Low 6.4-8.3 [facility] Comment on above: Performed By: #### C P, CDP #### [facility] [address] [place] [address] Rib Matcher And Fitter: Concepción De La Torre MD Sodium [Moles/Vol] 143 mmol/L Normal 135-144 [facility] Comment on above: Performed By: #### C P, CDP #### [facility] [address] [place], [place] [phone] Rib Matcher And Fitter: Concepción De La Torre MD Urea nitrogen [Mass/Vol] 12 mg/dL Normal 8-23 [facility] Comment on above: Performed By: #### C P, CDP #### [facility] [address] [place] [address] Rib Matcher And Fitter: Concepción De La Torre MD Comprehensive Metabolic Pane [facility] 02-02-2024 Albumin [Mass/Vol] 2.7 g/dL Low 3.5 - 5.2 g/dL [facility] Albumin/Globulin [Mass ratio] 1.0 {ratio} 1.0 - 2.5 [facility] ALP [Catalytic activity/Vol] 116 U/L High 35 - 104 U/L [facility] ALT [Catalytic activity/Vol] 10 U/L 5 - 33 U/L [facility] Anion gap [Moles/Vol] 11 mmol/L 9 - 17 mmol/L [facility] AST [Catalytic activity/Vol] 21 U/L NINF - 32 U/L [facility] Bilirubin [Mass/Vol] 0.4 mg/dL 0.3 - 1 .2 mg/dL [facility] Calcium [Mass/Vol] 7.8 mg/dL Low 8.6 - 10. 4 mg/dL [facility] Chloride [Moles/Vol] 108 mmol/L High 98 - 10 7 mmol/L [facility] CO2 [Moles/Vol] 24 mmol/L 20 - 31 mmol/L [facility] Creatinine [Mass/Vol] 0.8 mg/dL 0.5 - 0.9 mg/dL [facility] Est, Glom Filt Rate 73 - [facility] Comment on above: These results are [...] 123 mg/dL High 70 - 99 mg/dL [facility] Interpretation and review of laboratory results Abnormal [facility] Potassium [Moles/Vol] 4.0 mmol/L 3.7 - 5.3 mmol/L [facility] Protein [Mass/Vol] 5.4 g/dL Low 6.4 - 8.3 g/dL [facility] Sodium [Moles/Vol] 143 mmol/L 135 - 144 mmol/L [facility] Urea nitrogen [Mass/Vol] 12 mg/dL 8 - 23 mg/dL [facility] Urea nitrogen/Creatinine [Mass ratio] 15 mg/mg 9 - [address] [facility] [address] HEAD WO CONTRASTon 2023 CT HEAD [...] ORDERING SYSTEM PROVIDED HISTORY: SDH (subdural hematoma) ([facility]) TECHNOLOGIST PROVIDED HISTORY: F/U SDH FINDINGS: BRAIN/VENTRICLES: [...] Renny Rodriguez MD 01/27/24 Final result Normal [facility] CBC with Diffon 01-26-2024 Abs. Basophil <0.03 Normal 0.00-0.20 [facility] Comment on above: Performed By: #### C SCHUYLER CMPF #### [address] [place] [phone] Rib Matcher And Fitter: Concepción De La Torre MD Abs.Imm.Granulocyte 0.03 k/uL Normal 0.00-0.30 [facility] Comment on above: Performed By: #### C SCHUYLER CMPF #### [address] [place], [facility]83 Rib Matcher And Fitter: Concepción De La Torre MD Abs.Neutrophil (Seg) 2.15 k/uL Normal 1.50-8.10 [facility] Comment on above: Performed By: #### C SCHUYLER CMPF #### [address] [place], [facility]83 Rib Matcher And Fitter: Concepción De La Torre MD Basophils/100 WBC (Bld) 1 % Normal 0-2 [facility] Comment on above: Performed By: #### C SCHUYLER CMPF #### [address] [place] [address] Rib Matcher And Fitter: Concepción De La Torre MD Eosinophils (Bld) [#/Vol] 0.04 10*3/uL Normal 0.00-0.44 [facility] Comment on above: Performed By: #### C SCHUYLER CMPF #### [facility] [address] [place], [place] [phone] Rib Matcher And Fitter: Concepción De La Torre MD Eosinophils/100 WBC (Bld) 1 % Normal 1-4 [facility] Comment on above: Performed By: #### C DP, CMPF #### [address] [place], [place] [phone] Rib Matcher And Fitter: Concepción De La Torre MD Erythrocyte distribution width (RBC) [Ratio] 16.3 % High 11.8-14.4 [facility] Comment on above: Performed By: #### C DP, CMPF #### [address] [place], [place] [phone] Rib Matcher And Fitter: Concepción De La Torre MD Hematocrit (Bld) [Volume fraction] 30.9 % Low 36.3-47.1 [facility] Comment on above: Performed By: #### C DP, CMPF #### [address] [place], [place] [phone] Rib Matcher And Fitter: Concepción De La Torre MD Hemoglobin (Bld) [Mass/Vol] 9.7 g/dL Low 11.9-15.1 [facility] Comment on above: Performed By: #### C DP, CMPF #### [address] [place], [place] [phone] Rib Matcher And Fitter: Concepción De La Torre MD Immature granulocytes/100 WBC (Bld) 1 % High 0 [facility] Comment on above: Performed By: #### C DP, CMPF #### [address] [place], [place] [phone] Rib Matcher And Fitter: Concepción De La Torre MD Lymphocytes (Bld) [#/Vol] 0.79 10*3/uL Low 1.10-3.70 [facility] Comment on above: Performed By: #### C DP, CMPF #### [address] [place] [address] Rib Matcher And Fitter: Concepción De La Torre MD Lymphocytes/100 WBC (Bld) 22 % Low 24-43 [facility] Comment on above: Performed By: #### C DP, CMPF #### [facility] [address] [place] [address] Rib Matcher And Fitter: Concepción De La Torre MD MCH (RBC) [Entitic mass] 31.4 pg Normal 25.2-33.5 [facility] Comment on above: Performed By: #### C DP, CMPF #### [facility] [address] [place], [facility]83 Rib Matcher And Fitter: Concepción De La Torre MD MCHC (RBC) [Mass/Vol] 31.4 g/dL Normal 28.4-34.8 [facility] Comment on above: Performed By: #### C DP, CMPF #### [address] [place], [facility]83 Rib Matcher And Fitter: Concepción De La Torre MD MCV (RBC) [Entitic vol] 100.0 fL Normal 82.6-102.9 [facility] Comment on above: Performed By: #### C DP, CMPF #### [address] [place], [place] [phone] Rib Matcher And Fitter: Concepción De La Torre MD Monocytes (Bld) [#/Vol] 0.49 10*3/uL Normal 0.10-1.20 [facility] Comment on above: Performed By: #### C DP, CMPF #### [facility] [address] [place] [address] Rib Matcher And Fitter: Concepción De La Torre MD Monocytes/100 WBC (Bld) 14 % High 3-12 [facility] Comment on above: Performed By: #### C DP, CMPF #### [facility] [address] [place], [place] [phone] Rib Matcher And Fitter: Concepción De La Torre MD Neutrophil (Seg) 61 % Normal 36-65 [facility] Comment on above: Performed By: #### C DP, CMPF #### [facility] [address] [place] [address] Rib Matcher And Fitter: Concepción De La Torre MD NRBC Automated 0.0 per 100 WBC Normal 0.0 [facility] Comment on above: Performed By: #### C DP, CMPF #### [facility] [address] [place] [address] Rib Matcher And Fitter: Concepción De La Torre MD Platelet mean volume (Bld) [Entitic vol] 11.5 fL Normal 8.1-13.5 [facility] Comment on above: Performed By: #### C DP, CMPF #### [address] [place] [address] Rib Matcher And Fitter: Concepción De La Torre MD Platelets (Bld) [#/Vol] 271 10*3/uL Normal 138-453 [facility] Comment on above: Performed By: #### C DP, CMPF #### [address] [place], [place] [phone] Rib Matcher And Fitter: Concepción De La Torre MD RBC (Bld) [#/Vol] 3.09 10*6/uL Low 3.95-5.11 [facility] Comment on above: Performed By: #### C DP, CMPF #### [address] [place] [address] Rib Matcher And Fitter: Concepción De La Torre MD WBC (Bld) [#/Vol] 3.5 10*3/uL Normal 3.5-11.3 [facility] Comment on above: Performed By: #### C DP, CMPF #### [facility] [address] [place] [address] Rib Matcher And Fitter: Concepción De La Torre MD Comp Metabol,Fastingon 01-25 Albumin [Mass/Vol] 2.6 g/dL Low 3.5-5.2 [facility] Comment on above: Performed By: #### C DP, CMPF #### [facility] [address] [place], [place] [phone] Rib Matcher And Fitter: Concepción De La Torre MD Albumin/Glob Ratio 1.1 Normal 1.0-2.5 [facility] Comment on above: Performed By: #### C DP, CMPF #### [facility] [address] [place], [place] [phone] Rib Matcher And Fitter: Concepción De La Torre MD Alkaline Phos 92 U/L Normal 35-104 [facility] Comment on above: Performed By: #### C DP, CMPF #### [facility] [address] [place], [place] 1988283 Rib Matcher And Fitter: Concepción De La Torre MD ALT [Catalytic activity/Vol] 18 U/L Normal 5-33 [facility] Comment on above: Performed By: #### C DP, CMPF #### [facility] [address] [place] [address] Dr. [place], [place] [phone] Rib Matcher And Fitter: Concepción De La Torre MD Anion gap [Moles/Vol] 8 mmol/L Low 9-17 [facility] Comment on above: Performed By: #### C DP, CMPF #### [facility] [address] [place] [address] Dr. [place], [place] [phone] Rib Matcher And Fitter: Concepción De La Torre MD AST [Catalytic activity/Vol] 23 U/L Normal <32 [facility] Comment on above: Performed By: #### C DP, CMPF #### [facility] [address] [place] [address] Dr. [place], [place] [phone] Rib Matcher And Fitter: Concepción De La Torre MD Bilirubin [Mass/Vol] 0.5 mg/dL Normal 0.3-1.2 [facility] Comment on above: Performed By: #### C DP, CMPF #### [facility] [address] [place] [address] [place] [address] Rib Matcher And Fitter: Concepción De La Torre MD BUN/CRE Ratio 19 Normal 9-20 [facility] Comment on above: Performed By: #### C DP, CMPF #### [facility] [address] [place], [place] [phone] Rib Matcher And Fitter: Concepción De La Torre MD Calcium [Mass/Vol] 7.9 mg/dL Low 8.6-10.4 [facility] Comment on above: Performed By: #### C DP, CMPF #### [facility] [address] [place], [place] [phone] Rib Matcher And Fitter: Concepción De La Torre MD Chloride [Moles/Vol] 105 mmol/L Normal 98-107 [facility] Comment on above: Performed By: #### C DP, CMPF #### [facility] [address] [place], [place] [phone] Rib Matcher And Fitter: Concepción De La Torre MD CO2 [Moles/Vol] 27 mmol/L Normal 20-31 [facility] Comment on above: Performed By: #### C DP, CMPF #### [facility] [address] [place], [place] [phone] Rib Matcher And Fitter: Concepción De La Torre MD Creatinine [Mass/Vol] 0.8 mg/dL Normal 0.5-0.9 [facility] Comment on above: Performed By: #### C DP, CMPF #### [facility] [address] [place] [address] Rib Matcher And Fitter: Concepción De La Torre MD GFR/1.73 sq M.predicted among non-blacks MDRD (S/P/Bld) [Vol rate/Area] 73 mL/min/{1.73_m2} Normal >60 [facility] Comment on above: Result Comment: [...] Performed By: #### C SCHUYLER, CMPF #### [facility] [address] [place] [address] Dr. [place], [place] [phone] Rib Matcher And Fitter: Concepción De La Torre MD Glucose [Mass/Vol] 90 mg/dL Normal 70-99 [facility] Comment on above: Performed By: #### C DP, CMPF #### [facility] [address] [place] [address] Rib Matcher And Fitter: Concepción De La Torre MD Potassium [Moles/Vol] 4.1 mmol/L Normal 3.7-5.3 [facility] Comment on above: Performed By: #### C SCHUYLER, CMPF #### [address] [place] [address] Rib Matcher And Fitter: Concepción De La Torre MD Protein [Mass/Vol] 5.0 g/dL Low 6.4-8.3 [facility] Comment on above: Performed By: #### C SCHUYLER, CMPF #### [address] [place] [address] Rib Matcher And Fitter: Concepción De La Torre MD Sodium [Moles/Vol] 140 mmol/L Normal 135-144 [facility] Comment on above: Performed By: #### C DP, CMPF #### [facility] [address] [place] [address] [place] [address] Rib Matcher And Fitter: Concepción De La Torre MD Urea nitrogen [Mass/Vol] 15 mg/dL Normal 8-23 [facility] Comment on above: Performed By: #### C DP, CMPF #### [address] [place], [place] 0887383 Rib Matcher And Fitter: Concepción De La Torre MD CBC with Diffon 01-19-2024 Abs. Basophil 0.03 k/uL Normal 0.00-0.20 [facility] Comment on above: Performed By: #### C DP, CP #### [address] [place] [address] Rib Matcher And Fitter: Concepción De La Torre MD Abs.Imm.Granulocyte 0.05 k/uL Normal 0.00-0.30 [facility] Comment on above: Performed By: #### C DP, CP #### [address] [place] [address] Rib Matcher And Fitter: Concepción De La Torre MD Abs.Neutrophil (Seg) 5.33 k/uL Normal 1.50-8.10 [facility] Comment on above: Performed By: #### C DP, CP #### [address] [place] [address] Rib Matcher And Fitter: Concepción De La Torre MD Basophils/100 WBC (Bld) 0 % Normal 0-2 [facility] Comment on above: Performed By: #### C DP, CP #### [address] [place] [address] Rib Matcher And Fitter: Concepción De La Torre MD Eosinophils (Bld) [#/Vol] 0.07 10*3/uL Normal 0.00-0.44 [facility] Comment on above: Performed By: #### C DP, CP #### [address] [place], [place] [address] Rib Matcher And Fitter: Concepción De La Torre MD Eosinophils/100 WBC (Bld) 1 % Normal 1-4 [facility] Comment on above: Performed By: #### C DP, CP #### [address] [place] [address] Rib Matcher And Fitter: Concepción De La Torre MD Erythrocyte distribution width (RBC) [Ratio] 16.6 % High 11.8-14.4 [facility] Comment on above: Performed By: #### C DP, CP #### [place] [address] [place], [place] [phone] Rib Matcher And Fitter: Concepción De La Torre MD Hematocrit (Bld) [Volume fraction] 30.7 % Low 36.3-47.1 [facility] Comment on above: Performed By: #### C DP, CP #### [facility] [address] [place], [facility]83 Rib Matcher And Fitter: Concepción De La Torre MD Hemoglobin (Bld) [Mass/Vol] 9.7 g/dL Low 11.9-15.1 [facility] Comment on above: Performed By: #### C DP, CP #### [address] [place], [facility]83 Rib Matcher And Fitter: Concepción De La Torre MD Immature granulocytes/100 WBC (Bld) 1 % High 0 [facility] Comment on above: Performed By: #### C DP, CP #### [facility] [address] [place] [address] Dr. [place], [facility]83 Rib Matcher And Fitter: Concepción De La Torre MD Lymphocytes (Bld) [#/Vol] 1.11 10*3/uL Normal 1.10-3.70 [facility] Comment on above: Performed By: #### C DP, CP #### [address] [place], [facility]83 Rib Matcher And Fitter: Concepción De La Torre MD Lymphocytes/100 WBC (Bld) 15 % Low 24-43 [facility] Comment on above: Performed By: #### C DP, CP #### [facility] [address] [place], [facility]83 Rib Matcher And Fitter: Concepción De La Torre MD MCH (RBC) [Entitic mass] 31.1 pg Normal 25.2-33.5 [facility] Comment on above: Performed By: #### C DP, CP #### [facility] [address] [place] [address] Dr. [place], [facility]83 Rib Matcher And Fitter: Concepción De La Torre MD MCHC (RBC) [Mass/Vol] 31.6 g/dL Normal 28.4-34.8 [facility] Comment on above: Performed By: #### C DP, CP #### [facility] [address] [place], [place] [phone] Rib Matcher And Fitter: Concepción De La Torre MD MCV (RBC) [Entitic vol] 98.4 fL Normal 82.6-102.9 [facility] Comment on above: Performed By: #### C DP, CP #### [address] [place] [address] Rib Matcher And Fitter: Concepción De L aTorre MD Monocytes (Bld) [#/Vol] 0.95 10*3/uL Normal 0.10-1.20 [facility] Comment on above: Performed By: #### C DP, CP #### [address] [place] [address] Rib Matcher And Fitter: Concepción De La Torre MD Monocytes/100 WBC (Bld) 13 % High 3-12 [facility] Comment on above: Performed By: #### C DP, CP #### [address] [place] [address] Rib Matcher And Fitter: Concepción De La Torre MD Neutrophil (Seg) 71 % High 36-65 [facility] Comment on above: Performed By: #### C DP, CP #### [address] [place], [place] [phone] Rib Matcher And Fitter: Concepción De La Torre MD NRBC Automated 0.0 per 100 WBC Normal 0.0 [facility] Comment on above: Performed By: #### C DP, CP #### [address] [place], [place] [phone] Rib Matcher And Fitter: Concepción De La Torre MD Platelet mean volume (Bld) [Entitic vol] 11.9 fL Normal 8.1-13.5 [facility] Comment on above: Performed By: #### C DP, CP #### [facility] [address] [address]. [place], [place] [id number] [employer]: Concepción De La Torre MD Platelets (Bld) [#/Vol] 249 10*3/uL Normal 138-453 [facility] Comment on above: Performed By: #### C DP, CP #### [facility] [address] [place] [address] [employer]: Concepción De La Torre MD RBC (Bld) [#/Vol] 3.12 10*6/uL Low 3.95-5.11 [facility] Comment on above: Performed By: #### C DP, CP #### [facility] [address] [place], [place] [id number] [employer]: Concepción De La Torre MD WBC (Bld) [#/Vol] 7.5 10*3/uL Normal 3.5-11.3 [facility] Comment on above: Performed By: #### C DP, CP #### [facility] [address] [place], [place] [phone] [employer]itter: Concepción De La Torre MD Comp Metabolic Profon 2023 Albumin [Mass/Vol] 2.6 g/dL Low 3.5-5.2 [facility] Comment on above: Performed By: #### C DP, CP #### [facility] [address] [place], [place] [phone] [employer]: Concepción De La Torre MD Albumin/Glob Ratio 1.2 Normal 1.0-2.5 [facility] Comment on above: Performed By: #### C DP, CP #### [facility] [address] [place] [address] [employer]cher [employer]itter: Concepción De La Torre MD Alkaline Phos 78 U/L Normal 35-104 [facility] Comment on above: Performed By: #### C DP, CP #### [facility] [address] [place], [place] [phone] [employer]cher [employer]itter: Concepción De La Torre MD ALT [Catalytic activity/Vol] 42 U/L High 5-33 [facility] Comment on above: Performed By: #### C DP, CP #### [facility] [address] [place], [place] [phone] [employer]: Concepción De La Torre MD Anion gap [Moles/Vol] 5 mmol/L Low 9-17 [facility] Comment on above: Performed By: #### C DP, CP #### [facility] [address] [place], [place] 1002783 [employer]: Concepción De La Torre MD AST [Catalytic activity/Vol] 43 U/L High <32 [facility] Comment on above: Performed By: #### C DP, CP #### [facility] [address] [place], [place] [phone] [employer]: Concepción De La Torre MD Bilirubin [Mass/Vol] 1.2 mg/dL Normal 0.3-1.2 [facility] Comment on above: Performed By: #### C DP, CP #### [facility] [address] [place], [place] [phone] [employer]cher [employer]itter: Concepción De La Torre MD BUN/CRE Ratio 27 High 9-20 [facility] Comment on above: Performed By: #### C DP, CP #### [facility] [address] [place], [place] [phone] [employer]cher [employer]itter: Concepción De La Torre MD Calcium [Mass/Vol] 7.6 mg/dL Low 8.6-10.4 [facility] Comment on above: Performed By: #### C DP, CP #### [facility] [address] [place], [place] 2348483 [employer]itter: Concepción De La Torre MD Chloride [Moles/Vol] 100 mmol/L Normal 98-107 [facility] Comment on above: Performed By: #### C DP, CP #### [facility] [address] [place] [address] [employer]cher [employer]itter: Concepción De La Torre MD CO2 [Moles/Vol] 30 mmol/L Normal 20-31 [facility] Comment on above: Performed By: #### C DP, CP #### [facility] [address] [place] [address] [employer]cher [employer]itter: Concepción De La Torre MD Creatinine [Mass/Vol] 0.7 mg/dL Normal 0.5-0.9 [facility] Comment on above: Performed By: #### C DP, CP #### [facility] [address] [place] [address] [employer]: Concepción De La Torre MD GFR/1.73 sq M.predicted among non-blacks MDRD (S/P/Bld) [Vol rate/Area] 85 mL/min/{1.73_m2} Normal >60 [facility] Comment on above: Result Comment: [...] Performed By: #### C DP, CP #### [facility] [address] [place] [address] [employer]itter: Concepción De La Torre MD Glucose [Mass/Vol] 98 mg/dL Normal 70-99 [facility] Comment on above: Performed By: #### C DP, CP #### [facility] [address] [place] [address] [employer]cher [employer]itter: Concepción De La Torre MD Potassium [Moles/Vol] 3.8 mmol/L Normal 3.7-5.3 [facility] Comment on above: Performed By: #### C DP, CP #### [facility] [address] [place] [address] [employer]cher [employer]: Concepción De La Torre MD Protein [Mass/Vol] 4.8 g/dL Low 6.4-8.3 [facility] Comment on above: Performed By: #### C DP, CP #### [facility] [address] [place] [address] [employer]: Concepción De La Torre MD Sodium [Moles/Vol] 135 mmol/L Normal 135-144 [facility] Comment on above: Performed By: #### C DP, CP #### [facility] [address] [place] [address] [employer]cher [employer]itter: Concepción De La Torre MD Urea nitrogen [Mass/Vol] 19 mg/dL Normal 8-23 [facility] Comment on above: Performed By: #### C DP, CP #### [facility] [address] [place] [address] [employer]cher [employer]itter: Concepción De La Torre MD CBC with Auto Differentialon 01-15-2024 Basophils (Bld) [#/Vol] 0.03 10*3/uL [facility] Basophils/100 WBC (Bld) 0 % 0 - 2 % [facility] Eosinophils (Bld) [#/Vol] 0.05 10*3/uL [facility] Eosinophils/100 WBC (Bld) 0 % Low 1 - 4 % [facility] Erythrocyte distribution width (RBC) [Ratio] 15.9 % High 11.8 - 14.4 % [facility] Hematocrit (Bld) [Volume fraction] 31.7 % Low 36.3 - 47.1 % [facility] Hemoglobin (Bld) [Mass/Vol] 10.3 g/dL Low 11.9 - 15.1 g/dL [facility] Immature granulocytes (Bld) [#/Vol] 0.09 10*3/uL [facility] Immature granulocytes/100 WBC (Bld) 1 % High 0 [facility] Interpretation and review of laboratory results Abnormal [facility] Lymphocytes/100 WBC (Bld) 7 % Low 24 - 43 % [facility] Lymphocytes/100 WBC (Bld) 0.83 % Low [facility] MCH (RBC) [Entitic mass] 31.1 pg 25.2 - 33.5 pg [facility] MCHC (RBC) [Mass/Vol] 32.5 g/dL 28.4 - 34.8 g/dL [facility] MCV (RBC) [Entitic vol] 95.8 fL 82.6 - 102.9 fL [facility] Monocytes/100 WBC (Bld) 11 % 3 - 12 % [facility] Monocytes/100 WBC (Bld) 1.30 % High [facility] Neutrophils/100 WBC (Bld) 81 % High 36 - 65 % [facility] Nucleated RBC/100 WBC (Bld) [Ratio] 0.0 % 0.0 per 100 WBC [facility] Platelet mean volume (Bld) [Entitic vol] 11.8 fL 8.1 - 13.5 fL [facility] Platelets (Bld) [#/Vol] 176 10*3/uL [facility] RBC (Bld) [#/Vol] 3.31 10*6/uL Low 3.95 - 5.1 1 m/uL [facility] Segmented neutrophils/100 WBC (Bld) 9.73 % High [facility] WBC other (Bld) [#/Vol] 12.0 High [facility] CBC with Diffon 01-15-2024 Abs. Basophil 0.03 k/uL Normal 0.00-0.20 [facility] Comment on above: Performed By: #### C SCHUYLER, CP #### [facility] [address] [place] [address] [employer]cher [employer]itter: Concepción De La Torre MD Abs.Imm.Granulocyte 0.09 k/uL Normal 0.00-0.30 [facility] Comment on above: Performed By: #### C SCHUYLER, CP #### [facility] [address] [place], [place] [phone] [employer]cher [employer]itter: Concepción De La Torre MD Abs.Neutrophil (Seg) 9.73 k/uL High 1.50-8.10 [facility] Comment on above: Performed By: #### C DP, CP #### [address] [place], [facility]83 [employer]cher [employer]itter: Concepción De La Torre MD Basophils/100 WBC (Bld) 0 % Normal 0-2 [facility] Comment on above: Performed By: #### C DP, CP #### [address] [place] [address] [employer] Matcher [employer]itter: Concepción De La Torre MD Eosinophils (Bld) [#/Vol] 0.05 10*3/uL Normal 0.00-0.44 [facility] Comment on above: Performed By: #### C DP, CP #### [address] [place], [facility]83 [employer]itter: Concepción De La Torre MD Eosinophils/100 WBC (Bld) 0 % Low 1-4 [facility] Comment on above: Performed By: #### C DP, CP #### [address] [place], [facility]83 [employer]: Concepción De La Torre MD Erythrocyte distribution width (RBC) [Ratio] 15.9 % High 11.8-14.4 [facility] Comment on above: Performed By: #### C DP, CP #### [address] [place], [facility]83 [employer]: Concepción De La Torre MD Hematocrit (Bld) [Volume fraction] 31.7 % Low 36.3-47.1 [facility] Comment on above: Performed By: #### C DP, CP #### [address] [place], [facility]83 [employer]cher [employer]: Concepción De La Torre MD Hemoglobin (Bld) [Mass/Vol] 10.3 g/dL Low 11.9-15.1 [facility] Comment on above: Performed By: #### C DP, CP #### [address] [place] [address] [employer]cher [employer]itter: Concepción De La Torre MD Immature granulocytes/100 WBC (Bld) 1 % High 0 [facility] Comment on above: Performed By: #### C DP, CP #### [facility] [address] [place] [address] [place]. [place], [place] [phone] [employer]cher [employer]itter: Concepción De La Torre MD Lymphocytes (Bld) [#/Vol] 0.83 10*3/uL Low 1.10-3.70 [facility] Comment on above: Performed By: #### C DP, CP #### [address] [place], [facility]83 [employer] Matcher [employer]itter: Concepción De La Torre MD Lymphocytes/100 WBC (Bld) 7 % Low 24-43 [facility] Comment on above: Performed By: #### C DP, CP #### [address] [place], [place] [phone] [employer] Matcher [employer]itter: Concepción De La Torre MD MCH (RBC) [Entitic mass] 31.1 pg Normal 25.2-33.5 [facility] Comment on above: Performed By: #### C DP, CP #### [address] [place], [place] [phone] [employer]cher [employer]itter: Concepción De La Torre MD MCHC (RBC) [Mass/Vol] 32.5 g/dL Normal 28.4-34.8 [facility] Comment on above: Performed By: #### C DP, CP #### [address] [place] [address] [employer]cher [employer]itter: Concepción De La Torre MD MCV (RBC) [Entitic vol] 95.8 fL Normal 82.6-102.9 [facility] Comment on above: Performed By: #### C DP, CP #### [facility] [address] [place], [place] [phone] [employer]cher [employer]itter: Concepción De La Torre MD Monocytes (Bld) [#/Vol] 1.30 10*3/uL High 0.10-1.20 [facility] Comment on above: Performed By: #### C DP, CP #### [facility] [address] [place], [place] [phone] [employer] Matcher [employer]itter: Concepción De La Torre MD Monocytes/100 WBC (Bld) 11 % Normal 3-12 [facility] Comment on above: Performed By: #### C DP, CP #### [address] [place], [facility]83 [employer] Matcher [employer]itter: Concepción De La Torre MD Neutrophil (Seg) 81 % High 36-65 [facility] Comment on above: Performed By: #### C DP, CP #### [address] [place], [place] [phone] [employer] Matcher [employer]itter: Concepción De La Torre MD NRBC Automated 0.0 per 100 WBC Normal 0.0 [facility] Comment on above: Performed By: #### C DP, CP #### [address] [place], [facility]83 [employer]cher [employer]itter: Concepción De La Torre MD Platelet mean volume (Bld) [Entitic vol] 11.8 fL Normal 8.1-13.5 [facility] Comment on above: Performed By: #### C DP, CP #### [address] [place], [place] [phone] [employer]cher [employer]itter: Concepción De La Torre MD Platelets (Bld) [#/Vol] 176 10*3/uL Normal 138-453 [facility] Comment on above: Performed By: #### C DP, CP #### [address] [place], [place] [phone] [employer]cher [employer]itter: Concepción De La Torre MD RBC (Bld) [#/Vol] 3.31 10*6/uL Low 3.95-5.11 [facility] Comment on above: Performed By: #### C DP, CP #### [facility] [address] [place], [place] [phone] [employer]cher [employer]itter: Concepción De La Torre MD WBC (Bld) [#/Vol] 12.0 10*3/uL High 3.5-11.3 [facility] Comment on above: Performed By: #### C DP, CP #### [address] [place] [address] [employer] Matcher And Fitter: Concepción De La Torre MD Comp Metabolic Profon 2023 Albumin [Mass/Vol] 2.8 g/dL Low 3.5-5.2 [facility] Comment on above: Performed By: #### C DP, CP #### [facility] [address] [place] [address] [place]. [place], [place] [phone] [employer]cher [employer]itter: Concepción De La Torre MD Albumin/Glob Ratio 1.2 Normal 1.0-2.5 [facility] Comment on above: Performed By: #### C DP, CP #### [address] [place], [place] [phone] [employer]cher [employer]itter: Concepción De La Torre MD Alkaline Phos 74 U/L Normal 35-104 [facility] Comment on above: Performed By: #### C DP, CP #### [facility] [address] [place], [place] [phone] [employer] Matcher [employer]itter: Concepción De La Torre MD ALT [Catalytic activity/Vol] 22 U/L Normal 5-33 [facility] Comment on above: Performed By: #### C DP, CP #### [facility] [address] [place], [place] [phone] [employer] Matcher [employer]itter: Concepción De La Torre MD Anion gap [Moles/Vol] 10 mmol/L Normal 9-17 [facility] Comment on above: Performed By: #### C DP, CP #### [facility] [address] [place], [place] [phone] [employer] Matcher [employer]itter: Concepción De La Torre MD AST [Catalytic activity/Vol] 36 U/L High <32 [facility] Comment on above: Performed By: #### C DP, CP #### [facility] [address] [place], [place] [phone] [employer]cher [employer]itter: Concepción De La Torre MD Bilirubin [Mass/Vol] 1.3 mg/dL High 0.3-1.2 [facility] Comment on above: Performed By: #### C DP, CP #### [facility] [address] [place], [place] [phone] [employer] Matcher [employer]itter: Concepción De La Torre MD BUN/CRE Ratio 34 High 9-20 [facility] Comment on above: Performed By: #### C DP, CP #### [address] [place], [place] [phone] [employer]cher [employer]itter: Concepción De La Torre MD Calcium [Mass/Vol] 8.2 mg/dL Low 8.6-10.4 [facility] Comment on above: Performed By: #### C DP, CP #### [facility] [address] [place], [place] [phone] [employer]cher [employer]itter: Concepción De La Torre MD Chloride [Moles/Vol] 101 mmol/L Normal 98-107 [facility] Comment on above: Performed By: #### C DP, CP #### [facility] [address] [place] [address] [employer] Matcher And Fitter: Concepción De La Torre MD CO2 [Moles/Vol] 26 mmol/L Normal 20-31 [facility] Comment on above: Performed By: #### C DP, CP #### [facility] [address] [place] [address] [place] [address] [employer]cher And [employer]itter: Concepción De La Torre MD Creatinine [Mass/Vol] 0.8 mg/dL Normal 0.5-0.9 [facility] Comment on above: Performed By: #### C DP, CP #### [address] [place] [address] [employer] Matcher And Fitter: Concepción De La Torre MD GFR/1.73 sq M.predicted among non-blacks MDRD (S/P/Bld) [Vol rate/Area] 73 mL/min/{1.73_m2} Normal >60 [facility] Comment on above: Result Comment: [...] Performed By: #### C DP, CP #### [address] [place] [address] [employer] Matcher And [employer]itter: Concepción De La Torre MD Glucose [Mass/Vol] 101 mg/dL High 70-99 [facility] Comment on above: Performed By: #### C DP, CP #### [address] [place] [address] Rib Matcher And Fitter: Concepción eD La Torre MD Potassium [Moles/Vol] 4.6 mmol/L Normal 3.7-5.3 [facility] Comment on above: Performed By: #### C DP, CP #### [address] [place] [address] [employer] Matcher And Fitter: Concepción De La Torre MD Protein [Mass/Vol] 5.2 g/dL Low 6.4-8.3 [facility] Comment on above: Performed By: #### C DP, CP #### [facility] [address] [place], [place] [phone] [employer] Matcher [employer]itter: Concepción De La Torre MD Sodium [Moles/Vol] 137 mmol/L Normal 135-144 [facility] Comment on above: Performed By: #### C DP, CP #### [facility] [address] [place], [place] [phone] [employer]cher [employer]itter: Concepción De La Torre MD Urea nitrogen [Mass/Vol] 27 mg/dL High 8-23 [facility] Comment on above: Performed By: #### C DP, CP #### [facility] [address] [place] [address] [employer] Matcher And Fitter: Concepción De La Torre MD Comprehensive Metabolic Pane [facility] 01-15-2024 Albumin [Mass/Vol] 2.8 g/dL Low 3.5 - 5.2 g/dL [facility] Albumin/Globulin [Mass ratio] 1.2 {ratio} 1.0 - 2.5 [facility] ALP [Catalytic activity/Vol] 74 U/L 35 - 104 U/L [facility] ALT [Catalytic activity/Vol] 22 U/L 5 - 33 U/L [facility] Anion gap [Moles/Vol] 10 mmol/L 9 - 17 mmol/L [facility] AST [Catalytic activity/Vol] 36 U/L High NINF - 32 U/L [facility] Bilirubin [Mass/Vol] 1.3 mg/dL High 0.3 - 1 .2 mg/dL [facility] Calcium [Mass/Vol] 8.2 mg/dL Low 8.6 - 10. 4 mg/dL [facility] Chloride [Moles/Vol] 101 mmol/L 98 - 10 7 mmol/L [facility] CO2 [Moles/Vol] 26 mmol/L 20 - 31 mmol/L [facility] Creatinine [Mass/Vol] 0.8 mg/dL 0.5 - 0.9 mg/dL [facility] Est, Glom Filt Rate 73 - PINF [facility] Comment on above: These results are not [...] 101 mg/dL High 70 - 99 mg/dL [facility] Interpretation and review of laboratory results Abnormal [facility] Potassium [Moles/Vol] 4.6 mmol/L 3.7 - 5.3 mmol/L [facility] Protein [Mass/Vol] 5.2 g/dL Low 6.4 - 8.3 g/dL [facility] Sodium [Moles/Vol] 137 mmol/L 135 - 144 mmol/L [facility] Urea nitrogen [Mass/Vol] 27 mg/dL High 8 - 23 mg/dL [facility] Urea nitrogen/Creatinine [Mass ratio] 34 mg/mg High 9 - 20 [facility] PTon 01-13-2024 INR Coag (PPP) [Relative time] 1.3 {INR} Normal [facility] Comment on above: Result Comment: Therapeutic Range: Moderate Anticoagulant Intensity: INR = 2.0-3.0 High Anticoagulant Intensity: INR = 2.5-3.5 Performed By: #### P T ####[id number] [place], [place] [id number] Lab Director: Sarath Olivera MD PT Coag (PPP) [Time] 15.6 s High 11.7-14.9 [facility] Comment on above: Performed By: #### P T ####[id number] [place], [place] 3010[address] Lab Director: Sarath Olivera MD Basic Metab w/rfx MGon 01-11 Anion gap [Moles/Vol] 9 mmol/L Normal 9-16 [facility] Comment on above: Performed By: #### B C #### [address] [address] [employer]itter: Sarath Olivera MD Calcium [Mass/Vol] 8.3 mg/dL Low 8.6-10.4 [facility] Comment on above: Performed By: #### B C #### [address] [address] [employer] Matcher [employer]itter: Sarath Olivera MD Chloride [Moles/Vol] 103 mmol/L Normal 98-107 [facility] Comment on above: Performed By: #### B C #### [address] [address] [employer]cher [employer]itter: Sarath Olivera MD CO2 [Moles/Vol] 25 mmol/L Normal 20-31 [facility] Comment on above: Performed By: #### B C #### [address] [address] [employer]cher [employer]itter: Sarath Olivera MD Creatinine [Mass/Vol] 0.8 mg/dL Normal 0.50-0.90 [facility] Comment on above: Performed By: #### B C #### [address] [address] [employer]cher [employer]itter: Sarath Olivera MD GFR/1.73 sq M.predicted among non-blacks MDRD (S/P/Bld) [Vol rate/Area] 78 mL/min/{1.73_m2} Normal >60 [facility] Comment on above: Result Comment: These [...] secretion. Performed By: #### B C #### [address] [address] [employer]cher [employer]itter: Sarath Olivera MD Glucose [Mass/Vol] 92 mg/dL Normal 74-99 [facility] Comment on above: Performed By: #### B C #### [address] [address] [employer]cher [employer]itter: Sarath Olivera MD Potassium [Moles/Vol] 4.5 mmol/L Normal 3.7-5.3 [facility] Comment on above: Performed By: #### B C #### [address] [address] [employer]itter: Sarath Olivera MD Sodium [Moles/Vol] 137 mmol/L Normal 136-145 [facility] Comment on above: Performed By: #### B C #### [address] [address] [employer]itter: Sarath Olivera MD Urea nitrogen [Mass/Vol] 28 mg/dL High 8-23 [facility] Comment on above: Performed By: #### B C #### [address] [address] [employer]cher [employer]itter: Sarath Olivera MD CBC with Diffon 01-12-2024 Abs. Basophil 0.03 k/uL Normal 0.00-0.20 [facility] Comment on above: Performed By: #### B C #### [address] [address] [employer] Matcher [employer]itter: Sarath Olivera MD Abs.Imm.Granulocyte 0.24 k/uL Normal 0.00-0.30 [facility] Comment on above: Performed By: #### B C #### [address] [address] [employer] Matcher [employer]itter: Sarath Olivera MD Abs.Neutrophil (Seg) 6.54 k/uL Normal 1.50-8.10 [facility] Comment on above: Performed By: #### B C #### [address] [address] [employer]cher [employer]itter: Sarath Olivera MD Basophils/100 WBC (Bld) 0 % Normal 0-2 [facility] Comment on above: Performed By: #### B C #### [address] [address] [employer]cher [employer]itter: Sarath Olivera MD Eosinophils (Bld) [#/Vol] 0.19 10*3/uL Normal 0.00-0.44 [facility] Comment on above: Performed By: #### B C #### [address] [address] [employer]cher [employer]itter: Sarath Olivera MD Eosinophils/100 WBC (Bld) 2 % Normal 1-4 [facility] Comment on above: Performed By: #### B C #### [address] [address] [employer]itter: Sarath Olivera MD Erythrocyte distribution width (RBC) [Ratio] 15.8 % High 11.8-14.4 [facility] Comment on above: Performed By: #### B C #### [address] [address] [employer]itter: Sarath Olivera MD Hematocrit (Bld) [Volume fraction] 29.8 % Low 36.3-47.1 [facility] Comment on above: Performed By: #### B C #### [address] [address] [employer]itter: Sarath Olivera MD Hemoglobin (Bld) [Mass/Vol] 9.3 g/dL Low 11.9-15.1 [facility] Comment on above: Performed By: #### B C #### [address] [address] [employer]cher [employer]itter: Sarath Olivera MD Immature granulocytes/100 WBC (Bld) 3 % High 0 [facility] Comment on above: Performed By: #### B C #### [address] [address] [employer]itter: Sarath Olivera MD Lymphocytes (Bld) [#/Vol] 1.23 10*3/uL Normal 1.10-3.70 [facility] Comment on above: Performed By: #### B C #### [address] [address] [employer]cher [employer]itter: Sarath Olivera MD Lymphocytes/100 WBC (Bld) 13 % Low 24-43 [facility] Comment on above: Performed By: #### B C #### [place] [address] [employer]itter: Sarath Olivera MD MCH (RBC) [Entitic mass] 30.9 pg Normal 25.2-33.5 [facility] Comment on above: Performed By: #### B C #### [address] [address] [employer]cher [employer]itter: Sarath Olivera MD MCHC (RBC) [Mass/Vol] 31.2 g/dL Normal 28.4-34.8 [facility] Comment on above: Performed By: #### B C #### [place] [address] [employer]itter: Sarath Olivera MD MCV (RBC) [Entitic vol] 99.0 fL Normal 82.6-102.9 [facility] Comment on above: Performed By: #### B C #### [place] [address] [employer]: Sarath Olivera MD Monocytes (Bld) [#/Vol] 1.19 10*3/uL Normal 0.10-1.20 [facility] Comment on above: Performed By: #### B C #### [address] [address] [employer]: Sarath Olivera MD Monocytes/100 WBC (Bld) 13 % High 3-12 [facility] Comment on above: Performed By: #### B C #### [address] [address] [employer]: Sarath Olivera MD Neutrophil (Seg) 69 % High 36-65 [facility] Comment on above: Performed By: #### B C #### [address] [address] [employer]: Sarath Olivera MD NRBC Automated 0.5 per 100 WBC High 0.0 [facility] Comment on above: Performed By: #### B C #### [address] [address] [employer]: Sarath Olivera MD Platelet mean volume (Bld) [Entitic vol] 12.4 fL Normal 8.1-13.5 [facility] Comment on above: Performed By: #### B C #### [address] [address] [employer]: Sarath Olivera MD Platelets (Bld) [#/Vol] 140 10*3/uL Normal 138-453 [facility] Comment on above: Performed By: #### B C #### [address] [address] [employer]: Sarath Olivera MD RBC (Bld) [#/Vol] 3.01 10*6/uL Low 3.95-5.11 [facility] Comment on above: Performed By: #### B C #### [address] [address] [employer]: Sarath Olivera MD RBC morphology finding Nom (Bld) ANISOCYTOSIS PRESENT Normal [facility] Comment on above: Performed By: #### B C #### [address] [address] [employer]: Sarath Olivera MD WBC (Bld) [#/Vol] 9.4 10*3/uL Normal 3.5-11.3 [facility] Comment on above: Performed By: #### B C #### [address] [address] [employer]: Sarath Olivera MD PTon 01-12-2024 INR Coag (PPP) [Relative time] 1.2 {INR} Normal [facility] Comment on above: Result Comment: Therapeutic Range: Moderate Anticoagulant Intensity: INR = 2.0-3.0 High Anticoagulant Intensity: INR = 2.5-3.5 Performed By: #### B C #### [address] [address] [employer]: Sarath Olivera MD PT Coag (PPP) [Time] 14.6 s Normal 11.7-14.9 [facility] Comment on above: Performed By: #### B C #### [address] [address] [employer]: Sarath Olivera MD XR CHEST PORTABLEon 01-12-20 [...] Deon Webb MD 01/12/24 Final result Normal [facility] Basic Metab w/rfx MGon 01-10 Anion gap [Moles/Vol] 7 mmol/L Low 9-16 [facility] Comment on above: Performed By: #### L ACTIC ALCB #### [address] [address] [employer]: Sarath Olivera MD Calcium [Mass/Vol] 8.0 mg/dL Low 8.6-10.4 [facility] Comment on above: Performed By: #### L ACTIC ALCB #### [facility] [address] [place] [address] [employer]: Sarath Olivera MD Chloride [Moles/Vol] 104 mmol/L Normal 98-107 [facility] Comment on above: Performed By: #### L ACTIC ALCB #### [facility] [address] [place] [address] [employer]: Sarath Olivera MD CO2 [Moles/Vol] 24 mmol/L Normal 20-31 [facility] Comment on above: Performed By: #### L ACTIC ALCB #### [facility] [address] [place] [address] [employer]: Sarath Olivera MD Creatinine [Mass/Vol] 0.8 mg/dL Normal 0.50-0.90 [facility] Comment on above: Performed By: #### L ACTMARILIN ALCB #### [facility] [address] [place] [address] [employer]: Sarath Olivera MD GFR/1.73 sq M.predicted among non-blacks MDRD (S/P/Bld) [Vol rate/Area] 70 mL/min/{1.73_m2} Normal >60 [facility] Comment on above: Result Comment: These [...] Performed By: #### L MARY ALCB #### [facility] [address] [place] [address] [employer]: Sarath Olivera MD Glucose [Mass/Vol] 106 mg/dL High 74-99 [facility] Comment on above: Performed By: #### L MARY ALCB #### [facility] [address] [place] [address] [employer]: Sarath Olivera MD Potassium [Moles/Vol] 4.7 mmol/L Normal 3.7-5.3 [facility] Comment on above: Performed By: #### L MARY ALCB #### [address] [address] [employer]: Sarath Olivera MD Sodium [Moles/Vol] 135 mmol/L Low 136-145 [facility] Comment on above: Performed By: #### L MARY ALCB #### [facility] [address] [place] [address] [employer]: Sarath Olivera MD Urea nitrogen [Mass/Vol] 28 mg/dL High 8-23 [facility] Comment on above: Performed By: #### L MARY ALCB #### [facility] [address] [place] [address] [employer]: Sarath Olivera MD CBC with Diffon 01-10-2023 Abs. Basophil <0.03 Normal 0.00-0.20 [facility] Comment on above: Performed By: #### L MARY ALCB #### [address] [place] [address] [employer]: Sarath Olivera MD Abs.Imm.Granulocyte 0.23 k/uL Normal 0.00-0.30 [facility] Comment on above: Performed By: #### L ACTIC, ALCB #### [facility] [address] [place] [address] [employer]: Sarath Olivera MD Abs.Neutrophil (Seg) 7.27 k/uL Normal 1.50-8.10 [facility] Comment on above: Performed By: #### L ACTIC, ALCB #### [facility] [address] [place] [address] [employer]: Sarath Olivera MD Basophils/100 WBC (Bld) 0 % Normal 0-2 [facility] Comment on above: Performed By: #### L ACTIC, ALCB #### [facility] [address] [place] [address] [employer]: Sarath Olivera MD Eosinophils (Bld) [#/Vol] 0.11 10*3/uL Normal 0.00-0.44 [facility] Comment on above: Performed By: #### L ACTIC, ALCB #### [facility] [address] [place] [address] [employer]: Sarath Olivera MD Eosinophils/100 WBC (Bld) 1 % Normal 1-4 [facility] Comment on above: Performed By: #### L ACTIC, ALCB #### [facility] [address] [place] [address] [employer]: Sarath Olivera MD Erythrocyte distribution width (RBC) [Ratio] 15.6 % High 11.8-14.4 [facility] Comment on above: Performed By: #### L ACTIC, ALCB #### [facility] [address] [place] [address] [employer]: Sarath Olivera MD Hematocrit (Bld) [Volume fraction] 28.4 % Low 36.3-47.1 [facility] Comment on above: Performed By: #### L ACTIC, ALCB #### [facility] [address] [place] [address] [employer]: Sarath Olivera MD Hemoglobin (Bld) [Mass/Vol] 8.9 g/dL Low 11.9-15.1 [facility] Comment on above: Performed By: #### L ACTIC, ALCB #### [address] [address] [employer]: Sarath Olivera MD Immature granulocytes/100 WBC (Bld) 2 % High 0 [facility] Comment on above: Performed By: #### L ACTIC, ALCB #### [facility] [address] [place] [address] [employer]: Sarath Olivera MD Lymphocytes (Bld) [#/Vol] 1.31 10*3/uL Normal 1.10-3.70 [facility] Comment on above: Performed By: #### L ACTIC, ALCB #### [facility] [address] [place] [address] [employer]: Sarath Olivera MD Lymphocytes/100 WBC (Bld) 13 % Low 24-43 [facility] Comment on above: Performed By: #### L ACTIC, ALCB #### [facility] [address] [place] [address] [employer]: Sarath Olivera MD MCH (RBC) [Entitic mass] 30.9 pg Normal 25.2-33.5 [facility] Comment on above: Performed By: #### L ACTIC, ALCB #### [facility] [address] [place] [address] [employer]: Sarath Olivera MD MCHC (RBC) [Mass/Vol] 31.3 g/dL Normal 28.4-34.8 [facility] Comment on above: Performed By: #### L MARY ALCB #### [address] [address] [employer]: Sarath Olivera MD MCV (RBC) [Entitic vol] 98.6 fL Normal 82.6-102.9 [facility] Comment on above: Performed By: #### L MARY ALCB #### [address] [address] [employer]: Sarath Olivera MD Monocytes (Bld) [#/Vol] 1.42 10*3/uL High 0.10-1.20 [facility] Comment on above: Performed By: #### Abel HERNANDEZ ALCB #### [address] [address] [employer]: Sarath Olivera MD Monocytes/100 WBC (Bld) 14 % High 3-12 [facility] Comment on above: Performed By: #### L MARY ALCB #### [address] [address] [employer]: Sarath Olivera MD Neutrophil (Seg) 70 % High 36-65 [facility] Comment on above: Performed By: #### L MARY ALCB #### [address] [address] [employer]: Sarath Olivera MD NRBC Automated 1.3 per 100 WBC High 0.0 [facility] Comment on above: Performed By: #### L MARY ALCB #### [address] [address] [employer]: Sarath Olivera MD Platelet mean volume (Bld) [Entitic vol] 12.1 fL Normal 8.1-13.5 [facility] Comment on above: Performed By: #### L ACTIC, ALCB #### [address] [address] [employer]: Sarath Olivera MD Platelets (Bld) [#/Vol] 109 10*3/uL Low 138-453 [facility] Comment on above: Performed By: #### L ACTIC, ALCB #### [address] [address] [employer]: Sarath Olivera MD RBC (Bld) [#/Vol] 2.88 10*6/uL Low 3.95-5.11 [facility] Comment on above: Performed By: #### L ACTIC, ALCB #### [address] [address] [employer]: Sarath Olivera MD RBC morphology finding Nom (Bld) ANISOCYTOSIS PRESENT Normal [facility] Comment on above: Performed By: #### L ACTMARILIN, ALCB #### [address] [address] [employer]: Sarath Olivera MD WBC (Bld) [#/Vol] 10.4 10*3/uL Normal 3.5-11.3 [facility] Comment on above: Performed By: #### L ACTMARILIN, ALCB #### [address] [address] [employer]: Sarath Olivera MD Basic Metab w/rfx MGon 01-09 Anion gap [Moles/Vol] 7 mmol/L Low 9-16 [facility] Comment on above: Performed By: #### B C #### [address] [address] [employer]: Sarath Olivera MD Calcium [Mass/Vol] 8.4 mg/dL Low 8.6-10.4 [facility] Comment on above: Performed By: #### B C #### [facility] [address] [place] [address] [employer]: Sarath Olivera MD Chloride [Moles/Vol] 109 mmol/L High 98-107 [facility] Comment on above: Performed By: #### B C #### [facility] [address] [place] [address] [employer]: Sarath Olivera MD CO2 [Moles/Vol] 25 mmol/L Normal 20-31 [facility] Comment on above: Performed By: #### B C #### [facility] [address] [place] [address] [employer]: Sarath Olivera MD Creatinine [Mass/Vol] 0.8 mg/dL Normal 0.50-0.90 [facility] Comment on above: Performed By: #### B C #### [address] [address] [employer]: Sarath Olivera MD GFR/1.73 sq M.predicted among non-blacks MDRD (S/P/Bld) [Vol rate/Area] 68 mL/min/{1.73_m2} Normal >60 [facility] Comment on above: Result Comment: These [...] secretion. Performed By: #### B C #### [facility] [address] [place] [address] [employer]: Sarath Olivera MD Glucose [Mass/Vol] 96 mg/dL Normal 74-99 [facility] Comment on above: Performed By: #### B C #### [address] [address] [employer]: Sarath Olivera MD Potassium [Moles/Vol] 4.9 mmol/L Normal 3.7-5.3 [facility] Comment on above: Performed By: #### B C #### [address] [address] [employer]: Sarath Olivera MD Sodium [Moles/Vol] 141 mmol/L Normal 136-145 [facility] Comment on above: Performed By: #### B C #### [address] [address] [employer]: Sarath Olivera MD Urea nitrogen [Mass/Vol] 31 mg/dL High 8-23 [facility] Comment on above: Performed By: #### B C #### [address] [address] [employer]: Sarath Olivera MD CBC with Diffon 01-10-2024 Abs. Basophil <0.03 Normal 0.00-0.20 [facility] Comment on above: Performed By: #### B C #### [address] [address] [employer]: Sarath Olivera MD Abs. Eosinophil <0.03 Normal 0.00-0.44 [facility] Comment on above: Performed By: #### B C #### [address] [address] [employer]: Sarath Olivera MD Abs.Imm.Granulocyte 0.12 k/uL Normal 0.00-0.30 [facility] Comment on above: Performed By: #### B C #### [address] [address] [employer]: Sarath Olivera MD Abs.Neutrophil (Seg) 7.01 k/uL Normal 1.50-8.10 [facility] Comment on above: Performed By: #### B C #### [address] [address] [employer]: Sarath Olivera MD Basophils/100 WBC (Bld) 0 % Normal 0-2 [facility] Comment on above: Performed By: #### B C #### [address] [address] [employer]: Sarath Olivera MD Eosinophils/100 WBC (Bld) 0 % Low 1-4 [facility] Comment on above: Performed By: #### B C #### [address] [address] [employer]: Sarath Olivera MD Erythrocyte distribution width (RBC) [Ratio] 15.7 % High 11.8-14.4 [facility] Comment on above: Performed By: #### B C #### [address] [address] [employer]: Sarath Olivera MD Hematocrit (Bld) [Volume fraction] 28.2 % Low 36.3-47.1 [facility] Comment on above: Performed By: #### B C #### [address] [address] [employer]: Sarath Olivera MD Hemoglobin (Bld) [Mass/Vol] 9.0 g/dL Low 11.9-15.1 [facility] Comment on above: Performed By: #### B C #### [address] [address] [employer]itter: Sarath Olivera MD Immature granulocytes/100 WBC (Bld) 1 % High 0 [facility] Comment on above: Performed By: #### B C #### [address] [address] [employer]itter: Saarth Olivera MD Lymphocytes (Bld) [#/Vol] 1.46 10*3/uL Normal 1.10-3.70 [facility] Comment on above: Performed By: #### B C #### [address] [address] [employer]: Sarath Olivera MD Lymphocytes/100 WBC (Bld) 15 % Low 24-43 [facility] Comment on above: Performed By: #### B C #### [address] [address] [employer]: Sarath Olivera MD MCH (RBC) [Entitic mass] 30.8 pg Normal 25.2-33.5 [facility] Comment on above: Performed By: #### B C #### [address] [address] [employer]: Sarath Olivera MD MCHC (RBC) [Mass/Vol] 31.9 g/dL Normal 28.4-34.8 [facility] Comment on above: Performed By: #### B C #### [address] [address] [employer]itter: Sarath Olivera MD MCV (RBC) [Entitic vol] 96.6 fL Normal 82.6-102.9 [facility] Comment on above: Performed By: #### B C #### [address] [address] [employer]: Sarath Olivera MD Monocytes (Bld) [#/Vol] 1.28 10*3/uL High 0.10-1.20 [facility] Comment on above: Performed By: #### B C #### [address] [address] [employer]: Sarath Olivera MD Monocytes/100 WBC (Bld) 13 % High 3-12 [facility] Comment on above: Performed By: #### B C #### [address] [address] [employer]: Sarath Olivera MD Neutrophil (Seg) 71 % High 36-65 [facility] Comment on above: Performed By: #### B C #### [address] [address] [employer]itter: Sarath Olivera MD NRBC Automated 1.1 per 100 WBC High 0.0 [facility] Comment on above: Performed By: #### B C #### [address] [address] [employer]: Sarath Olivera MD Platelet mean volume (Bld) [Entitic vol] 12.7 fL Normal 8.1-13.5 [facility] Comment on above: Performed By: #### B C #### [address] [address] [employer]itter: Sarath Olivera MD Platelets (Bld) [#/Vol] 102 10*3/uL Low 138-453 [facility] Comment on above: Performed By: #### B C #### [address] [address] [employer]itter: Sarath Olivera MD RBC (Bld) [#/Vol] 2.92 10*6/uL Low 3.95-5.11 [facility] Comment on above: Performed By: #### B C #### [address] [address] [employer]: Sarath Olivera MD RBC morphology finding Nom (Bld) ANISOCYTOSIS PRESENT Normal [facility] Comment on above: Performed By: #### B C #### [address] [address] [employer]itter: Sarath Olivera MD WBC (Bld) [#/Vol] 9.9 10*3/uL Normal 3.5-11.3 [facility] Comment on above: Performed By: #### B C #### [address] [address] [employer]: Sarath Olivera MD Cult, Bloodon 01-10-2024 Cult, Blood Specimen Description .BLOOD Special Requests RT HAND NO MLS GIVEN Culture NO GROWTH 5 DAYS Report Status FINAL 01/10/2024 Normal [facility] Comment on above: Performed By: #### B C #### [address] [address] [employer]itter: Sarath Olivera MD Cult,Bloodon 01-10-2024 Cult,Blood Specimen Description .BLOOD Special Requests RT AC 10ML Culture NO GROWTH 5 DAYS Report Status FINAL 01/10/2024 [facility] Comment on above: Performed By: #### B C #### [address] [address] [employer]itter: Sarath Olivera MD Fentanyl, Urineon 01-10-2024 Fentanyl/Metab Ur 21.9 ng/mL Normal [facility] Comment on above: Result Comment: (NOT E) [...] developed and its performance characteristics determined by [employer]. It has not been cleared or approved by the [place] Food and Drug Administration. This test was performed in a CLIA certified laboratory and is intended for clinical purposes. Performed By: #### D AU, UAMIC #### [address] [address] [employer]: Sarath Olivera MD Norfentanyl, Ur See Note Normal [facility] Comment on above: Result Comment: (NOT E) Unable to identify due to interfering substance(s) in the specimen. Performed By: [employer] [address] [place] [address] Laboratory Manager: Taco Chang MD, PhD CLIA Number: [id number] Performed By: #### D AU, UAMIC #### [address] [address] [employer]: Sarath Olivera MD Opiates,Ur Confirmon 024 Codeine, Ur <20 Normal [facility] Comment on above: Performed By: #### D AU, UAMIC #### [address] [address] [employer]itter: Sarath Olivera MD Hydrocodone, Ur <20 Normal [facility] Comment on above: Performed By: #### D AU, UAMIC #### [address] [address] [employer]itter: Sarath Olivera MD Hydromorphone, Ur <20 Normal [facility] Comment on above: Performed By: #### D AU, UAMIC #### [address] [address] [employer]itter: Sarath Olivera MD Morphine, Ur 331 ng/mL Normal [facility] Comment on above: Performed By: #### D AU, UAMIC #### [address] [address] [employer]: Sarath Olivera MD Norhydrocodone, U <20 Normal [facility] Comment on above: Result Comment: (NOT E) Performed By: [employer] [address] [place] [address] Laboratory Manager: Taco Chang MD, PhD CLIA Number: [id number] Performed By: #### D AU, UAMIC #### [facility] [address] [place] [address] [employer]: Sarath Olivera MD Noroxycodone, Ur <20 Normal [facility] Comment on above: Performed By: #### D AU, UAMIC #### [facility] [address] [place] [address] [employer]itter: Sarath Olivera MD Noroxymorphone,U <20 Normal [facility] Comment on above: Performed By: #### D AU, UAMIC #### [facility] [address] [place] [address] [employer]: Sarath Olivera MD Opiates, 6 AM Ur <10 Normal [facility] Comment on above: Result Comment: (NOT [...] developed and its performance characteristics determined by [employer]. It has not been cleared or approved by the [place] Food and Drug Administration. This test was performed in a CLIA certified laboratory and is intended for clinical purposes. Performed By: #### D AU, UAMIC #### [facility] [address] [place] [address] [employer]: Sarath Olivera MD Oxycodone, Ur <20 Normal [facility] Comment on above: Performed By: #### D BOOKER UAMIC #### [address] [address] [employer]: Sarath Olivera MD Oxymorphone, Ur <20 Normal [facility] Comment on above: Performed By: #### D BOOKER UAMIC #### [address] [address] [employer]: Sarath Olivera MD Basic Metab w/rfx MGon 01-08 Anion gap [Moles/Vol] 7 mmol/L Low 9-16 [facility] Comment on above: Performed By: #### B C #### [address] [address] [employer]: Sarath Olivera MD Calcium [Mass/Vol] 8.0 mg/dL Low 8.6-10.4 [facility] Comment on above: Performed By: #### B C #### [address] [address] [employer]: Sarath Olivera MD Chloride [Moles/Vol] 113 mmol/L High 98-107 [facility] Comment on above: Performed By: #### B C #### [address] [address] [employer]: Sarath Olivera MD CO2 [Moles/Vol] 23 mmol/L Normal 20-31 [facility] Comment on above: Performed By: #### B C #### [address] [address] [employer]: Sarath Olivera MD Creatinine [Mass/Vol] 0.9 mg/dL Normal 0.50-0.90 [facility] Comment on above: Performed By: #### B C #### [facility] [address] [place] [address] [employer]: Sarath Olivera MD GFR/1.73 sq M.predicted among non-blacks MDRD (S/P/Bld) [Vol rate/Area] 61 mL/min/{1.73_m2} Normal >60 [facility] Comment on above: Result Comment: These [...] secretion. Performed By: #### B C #### [address] [address] [employer]: Sarath Olivera MD Glucose [Mass/Vol] 112 mg/dL High 74-99 [facility] [facility] Comment on above: Performed By: #### B C #### [address] [address] [employer]: Sarath Olivera MD Potassium [Moles/Vol] 5.1 mmol/L Normal 3.7-5.3 [facility] Comment on above: Performed By: #### B C #### [facility] [address] [place] [address] [employer]: Sarath Olivera MD Sodium [Moles/Vol] 143 mmol/L Normal 136-145 [facility] Comment on above: Performed By: #### B C #### [facility] [address] [place] [address] [employer]: Sarath Olivera MD Urea nitrogen [Mass/Vol] 31 mg/dL High 8-23 [facility] Comment on above: Performed By: #### B C #### [address] [address] [employer]: Sarath Olivera MD CBC with Diffon 01-09-2024 Platelet, Fluoresc. 84 k/uL Low 138-453 [facility] Comment on above: Performed By: #### B C #### [place] [address] [employer]: Sarath Olivera MD PLT, Immature Fract. 11.1 % High 1.1-10.3 [facility] Comment on above: Performed By: #### B C #### [place] [address] [employer]: Sarath Olivera MD Abs. Basophil <0.03 Normal 0.00-0.20 [facility] Comment on above: Performed By: #### B C #### [place] [address] [employer]: Sarath Olivera MD Abs. Eosinophil <0.03 Normal 0.00-0.44 [facility] Comment on above: Performed By: #### B C #### [address] [address] [employer]: Sarath Olivera MD Abs.Imm.Granulocyte 0.09 k/uL Normal 0.00-0.30 [facility] Comment on above: Performed By: #### B C #### [place] [address] [employer]: Sarath Olivera MD Abs.Neutrophil (Seg) 9.66 k/uL High 1.50-8.10 [facility] Comment on above: Performed By: #### B C #### [address] [address] [employer]: Sarath Olivera MD Basophils/100 WBC (Bld) 0 % Normal 0-2 [facility] Comment on above: Performed By: #### B C #### [address] [address] [employer]: Sarath Olivera MD Eosinophils/100 WBC (Bld) 0 % Low 1-4 [facility] Comment on above: Performed By: #### B C #### [address] [address] [employer]: Sarath Olivera MD Immature granulocytes/100 WBC (Bld) 1 % High 0 [facility] Comment on above: Performed By: #### B C #### [address] [address] [employer]: Sarath Olivera MD Lymphocytes (Bld) [#/Vol] 0.83 10*3/uL Low 1.10-3.70 [facility] Comment on above: Performed By: #### B C #### [address] [address] [employer]: Sarath Olivera MD Lymphocytes/100 WBC (Bld) 7 % Low 24-43 [facility] Comment on above: Performed By: #### B C #### [address] [address] [employer]: Sarath Olivera MD Monocytes (Bld) [#/Vol] 1.03 10*3/uL Normal 0.10-1.20 [facility] Comment on above: Performed By: #### B C #### [address] [address] [employer]: Sarath Olivera MD Monocytes/100 WBC (Bld) 9 % Normal 3-12 [facility] Comment on above: Performed By: #### B C #### [address] [address] [employer]: Sarath Olivera MD Neutrophil (Seg) 83 % High 36-65 [facility] Comment on above: Performed By: #### B C #### [address] [address] [employer]: Sarath Olivera MD Erythrocyte distribution width (RBC) [Ratio] 16.0 % High 11.8-14.4 [facility] Comment on above: Performed By: #### B C #### [place] [address] [employer]: Sarath Olivera MD Hematocrit (Bld) [Volume fraction] 28.1 % Low 36.3-47.1 [facility] Comment on above: Performed By: #### B C #### [place] [address] [employer]: Sarath Olivera MD Hemoglobin (Bld) [Mass/Vol] 8.5 g/dL Low 11.9-15.1 [facility] Comment on above: Performed By: #### B C #### [place] [address] [employer]: Sarath Olivera MD MCH (RBC) [Entitic mass] 30.0 pg Normal 25.2-33.5 [facility] Comment on above: Performed By: #### B C #### [place] [address] [employer]: Sarath Olivera MD MCHC (RBC) [Mass/Vol] 30.2 g/dL Normal 28.4-34.8 [facility] Comment on above: Performed By: #### B C #### [address] [address] [employer]: Sarath Olivera MD MCV (RBC) [Entitic vol] 99.3 fL Normal 82.6-102.9 [facility] Comment on above: Performed By: #### B C #### [address] [address] [employer]: Sarath Olivera MD NRBC Automated 0.9 per 100 WBC High 0.0 [facility] Comment on above: Performed By: #### B C #### [address] [address] [employer]: Sarath Olivera MD Platelet Count See Reflexed IPF Result Normal 138-453 [facility] Comment on above: Performed By: #### B C #### [address] [address] [employer]: Sarath Olivera MD RBC (Bld) [#/Vol] 2.83 10*6/uL Low 3.95-5.11 [facility] Comment on above: Performed By: #### B C #### [address] [address] [employer]: Sarath Olivera MD RBC morphology finding Nom (Bld) ANISOCYTOSIS PRESENT Normal [facility] Comment on above: Performed By: #### B C #### [address] [address] [employer]: Sarath Olivera MD WBC (Bld) [#/Vol] 11.6 10*3/uL High 3.5-11.3 [facility] Comment on above: Performed By: #### B C #### [address] [address] [employer]: Sarath Olivera MD Basic Metab w/rfx MGon 01-07 Anion gap [Moles/Vol] 8 mmol/L Low 9-16 [facility] Comment on above: Performed By: #### B C #### [address] [address] [employer]: Sarath Olivera MD Calcium [Mass/Vol] 7.6 mg/dL Low 8.6-10.4 [facility] Comment on above: Performed By: #### B C #### [facility] [address] [place] [address] [employer]: Sarath Olivera MD Chloride [Moles/Vol] 114 mmol/L High 98-107 [facility] Comment on above: Performed By: #### B C #### [facility] [address] [place] [address] [employer]: Sarath Olivera MD CO2 [Moles/Vol] 20 mmol/L Normal 20-31 [facility] Comment on above: Performed By: #### B C #### [address] [address] [employer]: Sarath Olivera MD Creatinine [Mass/Vol] 1.1 mg/dL High 0.50-0.90 [facility] Comment on above: Performed By: #### B C #### [address] [address] [employer]: Sarath Olivera MD GFR/1.73 sq M.predicted among non-blacks MDRD (S/P/Bld) [Vol rate/Area] 48 mL/min/{1.73_m2} Low >60 [facility] Comment on above: Result Comment: These [...] secretion. Performed By: #### B C #### [address] [address] [employer]: Sarath Olivera MD Glucose [Mass/Vol] 158 mg/dL High 74-99 [facility] Comment on above: Performed By: #### B C #### [address] [address] [employer]: Sarath Olivera MD Potassium [Moles/Vol] 5.1 mmol/L Normal 3.7-5.3 [facility] Comment on above: Performed By: #### B C #### [address] [address] [employer]: Sarath Olivera MD Sodium [Moles/Vol] 142 mmol/L Normal 136-145 [facility] Comment on above: Performed By: #### B C #### [address] [address] [employer]: Sarath Olivera MD Urea nitrogen [Mass/Vol] 31 mg/dL High 8-23 [facility] Comment on above: Performed By: #### B C #### [address] [address] [employer]: Sarath Olivera MD CBC with Diffon 01-08-2024 Abs. Basophil 0.00 k/uL Normal 0.0-0.2 [facility] Comment on above: Performed By: #### B C #### [address] [address] [employer]: Sarath Olivera MD Abs.Imm.Granulocyte 0.13 k/uL Normal 0.00-0.30 [facility] Comment on above: Performed By: #### B C #### [address] [address] [employer]: Sarath Olivera MD Abs.Neutrophil (Seg) 10.66 k/uL High 1.8-7.7 [facility] Comment on above: Performed By: #### B C #### [address] [id number] [employer]: Sarath Olivera MD Basophils/100 WBC (Bld) 0 % Normal 0-2 [facility] Comment on above: Performed By: #### B C #### [address] [address] [employer]: Sarath Olivera MD Eosinophils (Bld) [#/Vol] 0.00 10*3/uL Normal 0.0-0.4 [facility] Comment on above: Performed By: #### B C #### [address] [address] [employer]: Sarath Olivera MD Eosinophils/100 WBC (Bld) 0 % Low 1-4 [facility] Comment on above: Performed By: #### B C #### [address] [address] [employer]: Sarath Olivera MD Immature granulocytes/100 WBC (Bld) 1 % High 0 [facility] Comment on above: Performed By: #### B C #### [address] [address] [employer]: Sarath Olivera MD Lymphocytes (Bld) [#/Vol] 0.51 10*3/uL Low 1.0-4.8 [facility] Comment on above: Performed By: #### B C #### [address] [address] [employer]: Sarath Olivera MD Lymphocytes/100 WBC (Bld) 4 % Low 24-44 [facility] Comment on above: Performed By: #### B C #### [address] [address] [employer]: Sarath Olivera MD Monocytes (Bld) [#/Vol] 1.40 10*3/uL High 0.1-0.8 [facility] Comment on above: Performed By: #### B C #### [address] [address] [employer]: Sarath Olivera MD Monocytes/100 WBC (Bld) 11 % High 1-7 [facility] Comment on above: Performed By: #### B C #### [address] [address] [employer]: Sarath Olivera MD Morphology Manoj (Bld) [Interp] ANISOCYTOSIS PRESENT Normal [facility] Comment on above: Performed By: #### B C #### [address] [address] [employer]: Sarath Olivera MD Neutrophil (Seg) 84 % High 36-66 [facility] Comment on above: Performed By: #### B C #### [address] [address] [employer]: Sarath Olivera MD Erythrocyte distribution width (RBC) [Ratio] 15.8 % High 11.8-14.4 [facility] Comment on above: Performed By: #### B C #### [address] [address] [employer]: Sarath Olivera MD Hematocrit (Bld) [Volume fraction] 26.2 % Low 36.3-47.1 [facility] Comment on above: Performed By: #### B C #### [address] [address] [employer]: Sarath Olivera MD Hemoglobin (Bld) [Mass/Vol] 8.4 g/dL Low 11.9-15.1 [facility] Comment on above: Performed By: #### B C #### [address] [address] [employer]: Sarath Olivera MD MCH (RBC) [Entitic mass] 29.8 pg Normal 25.2-33.5 [facility] Comment on above: Performed By: #### B C #### [address] [address] [employer]: Sarath Olivera MD MCHC (RBC) [Mass/Vol] 32.1 g/dL Normal 28.4-34.8 [facility] Comment on above: Performed By: #### B C #### [address] [address] [employer]: Sarath Olivera MD MCV (RBC) [Entitic vol] 92.9 fL Normal 82.6-102.9 [facility] Comment on above: Performed By: #### B C #### [address] [address] [employer]: Sarath Olivera MD NRBC Automated 0.3 per 100 WBC High 0.0 [facility] Comment on above: Performed By: #### B C #### [address] [address] [employer]: Sarath Olivera MD Platelet Count See Reflexed IPF Result Normal [address] [place] [address] Comment on above: Performed By: #### B C #### [address] [address] [employer]: Sarath Olivera MD Platelet, Fluoresc. 65 k/uL Low 138-521 [facility] Comment on above: Performed By: #### B C #### [address] [address] [employer]: aSrath Olivera MD PLT, Immature Fract. 11.2 % High 1.1-10.3 [facility] Comment on above: Performed By: #### B C #### [address] [address] [employer]: Sarath Olivera MD RBC (Bld) [#/Vol] 2.82 10*6/uL Low 3.95-5.11 [facility] Comment on above: Performed By: #### B C #### [facility] [address] [place] [address] [employer]: Sarath Olivera MD WBC (Bld) [#/Vol] 12.7 10*3/uL High 3.5-11.3 [facility] Comment on above: Performed By: #### B C #### [address] [address] [employer]: Sarath Olivera MD Calcium, Ionicon 01-08-2024 Calcium [Moles/Vol] 1.12 mmol/L Low 1.13-1.33 [facility] Comment on above: Performed By: #### B C #### [address] [address] [employer]: Sarath Olivera MD Magnesiumon 01-08-2024 Magnesium [Mass/Vol] 2.0 mg/dL Normal 1.6-2.4 [facility] Comment on above: Performed By: #### B C #### [address] [address] [employer]: Sarath Olivera MD Phosphorus, Inorg.on 024 Phosphorus, Inorg. 1.9 mg/dL Low 2.5-4.5 [facility] Comment on above: Performed By: #### B C #### [address] [address] [employer]: Sarath Olivera MD XR CHEST PORTABLEon 01-08-20 [...] Berhane Pressley MD 01/08/24 Final result Normal [facility] Arterial Bld Gas,POCon 01-06 FIO2 60.0 Normal [facility] HCO3 (Bld) [Moles/Vol] 20.2 mmol/L Low 21.0-28.0 [facility] Negative Base Excess (calc) 4.5 mmol/L High 0.0-2.0 [facility] Oxygen saturation in Blood 99.4 % High 94.0-98.0 [facility] pCO2, Arterial 34.6 mm Hg Low 35.0-48.0 [facility] pH, Arterial 7.374 Normal 7.350-7.450 [facility] pO2, Arterial 155.4 mm Hg High 83.0-108.0 [facility] Site Drawn Arterial Line Normal [facility] FIO2 70.0 Normal [facility] HCO3 (Bld) [Moles/Vol] 21.2 mmol/L Normal 21.0-28.0 [facility] Negative Base Excess (calc) 4.4 mmol/L High 0.0-2.0 [facility] Oxygen saturation in Blood 97.4 % Normal 94.0-98.0 [facility] pCO2, Arterial 39.8 mm Hg Normal 35.0-48.0 [facility] pH, Arterial 7.333 Low 7.350-7.450 [facility] pO2, Arterial 100.9 mm Hg Normal 83.0-108.0 [facility] FIO2 80.0 Normal [facility] HCO3 (Bld) [Moles/Vol] 21.0 mmol/L Normal 21.0-28.0 [facility] Negative Base Excess (calc) 4.1 mmol/L High 0.0-2.0 [facility] Oxygen saturation in Blood 97.2 % Normal 94.0-98.0 [facility] pCO2, Arterial 37.9 mm Hg Normal 35.0-48.0 [facility] pH, Arterial 7.353 Normal 7.350-7.450 [facility] pO2, Arterial 96.9 mm Hg Normal 83.0-108.0 [facility] Site Drawn Arterial Line Normal [facility] Basic Metab w/rfx MGon 01-06 Anion gap [Moles/Vol] 8 mmol/L Low 9-16 [facility] Comment on above: Performed By: #### B C #### [facility] [address] [place] [address] [employer]: Sarath Olivera MD Calcium [Mass/Vol] 7.7 mg/dL Low 8.6-10.4 [facility] Comment on above: Performed By: #### B C #### [facility] [address] [place] [address] [employer]: Sarath Olivera MD Chloride [Moles/Vol] 115 mmol/L High 98-107 [facility] Comment on above: Performed By: #### B C #### [facility] [address] [place] [address] [employer]: Sarath Olivera MD CO2 [Moles/Vol] 20 mmol/L Normal 20-31 [facility] Comment on above: Performed By: #### B C #### [facility] [address] [place] [phone] [employer]: Sarath Olivera MD Creatinine [Mass/Vol] 1.3 mg/dL High 0.50-0.90 [facility] Comment on above: Performed By: #### B C #### [address] [address] [employer]: Sarath Olivera MD GFR/1.73 sq M.predicted among non-blacks MDRD (S/P/Bld) [Vol rate/Area] 41 mL/min/{1.73_m2} Low >60 [facility] Comment on above: Result Comment: These [...] secretion. Performed By: #### B C #### [address] [address] [employer]: Sarath Olivera MD Glucose [Mass/Vol] 150 mg/dL High 74-99 [facility] Comment on above: Performed By: #### B C #### [facility] [address] [place] [address] [employer]: Sarath Olivera MD Potassium [Moles/Vol] 4.2 mmol/L Normal 3.7-5.3 [facility] Comment on above: Performed By: #### B C #### [facility] [address] [place] [address] [employer]: Sarath Olivera MD Sodium [Moles/Vol] 143 mmol/L Normal 136-145 [facility] Comment on above: Performed By: #### B C #### [address] [address] [employer]: Sarath Olivera MD Urea nitrogen [Mass/Vol] 36 mg/dL High 8-23 [facility] Comment on above: Performed By: #### B C #### [address] [address] [employer]: Sarath Olivera MD CBC with Diffon 01-07-2024 Abs. Basophil 0.00 k/uL Normal 0.0-0.2 [facility] Comment on above: Performed By: #### B C #### [address] [address] [employer]: Sarath Olivera MD Abs.Imm.Granulocyte 0.00 k/uL Normal 0.00-0.30 [facility] Comment on above: Performed By: #### B C #### [address] [address] [employer]: Sarath Olivera MD Abs.Neutrophil (Seg) 8.81 k/uL High 1.8-7.7 [facility] Comment on above: Performed By: #### B C #### [address] [address] [employer]: Sarath Olivera MD Basophils/100 WBC (Bld) 0 % Normal 0-2 [facility] Comment on above: Performed By: #### B C #### [address] [address] [employer]: Sarath Olivera MD Eosinophils (Bld) [#/Vol] 0.00 10*3/uL Normal 0.0-0.4 [facility] Comment on above: Performed By: #### B C #### [address] [address] [employer]: Sarath Olivera MD Eosinophils/100 WBC (Bld) 0 % Low 1-4 [facility] Comment on above: Performed By: #### B C #### [address] [address] [employer]: Sarath Olivera MD Immature granulocytes/100 WBC (Bld) 0 % Normal 0 [facility] Comment on above: Performed By: #### B C #### [address] [address] [employer]: Sarath Olivera MD Lymphocytes (Bld) [#/Vol] 0.69 10*3/uL Low 1.0-4.8 [facility] Comment on above: Performed By: #### B C #### [address] [address] [employer]: Sarath Olivera MD Lymphocytes/100 WBC (Bld) 7 % Low 24-44 [facility] Comment on above: Performed By: #### B C #### [address] [address] [employer]: Sarath Olivera MD Monocytes (Bld) [#/Vol] 0.40 10*3/uL Normal 0.1-0.8 [facility] Comment on above: Performed By: #### B C #### [address] [address] [employer]: Sarath Olivera MD Monocytes/100 WBC (Bld) 4 % Normal 1-7 [facility] Comment on above: Performed By: #### B C #### [address] [address] [employer]: Sarath Olivera MD Morphology Manoj (Bld) [Interp] ANISOCYTOSIS PRESENT Normal [facility] Comment on above: Result Comment: INCR EASED BANDS PRESENT Performed By: #### B C #### [address] [address] [employer]: Sarath Olivera MD Neutrophil (Seg) 89 % High 36-66 [facility] Comment on above: Performed By: #### B C #### [address] [address] [employer]: Sarath Olivera MD Erythrocyte distribution width (RBC) [Ratio] 14.8 % High 11.8-14.4 [facility] Comment on above: Performed By: #### B C #### [address] [address] [employer]: Sarath Olivera MD Hematocrit (Bld) [Volume fraction] 25.3 % Low 36.3-47.1 [facility] Comment on above: Performed By: #### B C #### [address] [address] [employer]: Sarath Olivera MD Hemoglobin (Bld) [Mass/Vol] 8.3 g/dL Low 11.9-15.1 [facility] Comment on above: Performed By: #### B C #### [address] [address] [employer]: Sarath Olivera MD MCH (RBC) [Entitic mass] 30.3 pg Normal 25.2-33.5 [facility] Comment on above: Performed By: #### B C #### [address] [address] [employer]: Sarath Olivera MD MCHC (RBC) [Mass/Vol] 32.8 g/dL Normal 28.4-34.8 [facility] Comment on above: Performed By: #### B C #### [address] [address] [employer]: Sarath Olivera MD MCV (RBC) [Entitic vol] 92.3 fL Normal 82.6-102.9 [facility] Comment on above: Performed By: #### B C #### [address] [address] [employer]: Sarath Olivera MD NRBC Automated 0.0 per 100 WBC Normal 0.0 [facility] Comment on above: Performed By: #### B C #### [address] [address] [employer]: Sarath Olivera MD Platelet Count See Reflexed IPF Result Normal 138-453 [facility] Comment on above: Performed By: #### B C #### [address] [address] [employer]: Sarath Olivera MD Platelet, Fluoresc. 70 k/uL Low 138-453 [facility] Comment on above: Performed By: #### B C #### [address] [address] [employer]: Sarath Olivera MD PLT, Immature Fract. 10.5 % High 1.1-10.3 [facility] Comment on above: Performed By: #### B C #### [address] [address] [employer]: Sarath Olivera MD RBC (Bld) [#/Vol] 2.74 10*6/uL Low 3.95-5.11 [facility] Comment on above: Performed By: #### B C #### [address] [address] [employer]: Sarath Olivera MD WBC (Bld) [#/Vol] 9.9 10*3/uL Normal 3.5-11.3 [facility] Comment on above: Performed By: #### B C #### [address] [address] [employer]: Sarath Olivera MD Calcium, Ionicon 01-07-2024 Calcium [Moles/Vol] 1.13 mmol/L Normal 1.13-1.33 [facility] Comment on above: Performed By: #### I OCAL ####[address] [address] Lab Director: Sarath Olivera MD Cult,Urineon 01-07-2024 Cult,Urine Specimen Description .CLEAN CATCH URINE Special Requests Site: Urine Culture NO GROWTH Report Status FINAL 01/07/2024 Normal [facility] Comment on above: Performed By: #### B C #### [address] [address] [employer]: Sarath Olivera MD Gl Hemostasis TEG w/Lysison 01-07-2024 Fibrinogen, Func TEG 17.9 mm Normal 15.0-32.0 [facility] Comment on above: Performed By: #### B C #### [address] [address] [employer]: Sarath Olivera MD LY30 (Lysis) TEG 1.0 % Normal 0.0-2.6 [facility] Comment on above: Performed By: #### B C #### [address] [address] [employer]: Sarath Olivera MD MA Rapid TEG 54.9 mm Normal 52.0-70 [facility] Comment on above: Performed By: #### B C #### [address] [address] [employer]: Sarath Olivera MD R(Reaction Time) TEG 5.7 min Normal 4.6-9.1 [facility] Comment on above: Performed By: #### B C #### [address] [address] [employer]: Sarath Olivera MD Glucose (POC)on 01-07-2024 Glucose [Mass/Vol] 161 mg/dL High 74-100 [facility] Glucose [Mass/Vol] 143 mg/dL High 74-100 [facility] Glucose [Mass/Vol] 157 mg/dL High 74-100 [facility] Glucose,Whole Bloodon 2023 Glucose [Mass/Vol] 142 mg/dL High 65-105 [facility] Glucose [Mass/Vol] 145 mg/dL High 65-105 [facility] Lactic Acid (POC)on 01-07-20 24 Lactate [Moles/Vol] 1.0 mmol/L Normal 0.56-1.39 [facility] Lactate [Moles/Vol] 1.0 mmol/L Normal 0.56-1.39 [facility] Lactate [Moles/Vol] 1.1 mmol/L Normal 0.56-1.39 [facility] Magnesiumon 01-07-2024 Magnesium [Mass/Vol] 1.9 mg/dL Normal 1.6-2.4 [facility] Comment on above: Performed By: #### B C #### [employer] [address] [place] [address] [employer]: Sarath Olivera MD Phosphorus, Inorg.on 024 Phosphorus, Inorg. 3.1 mg/dL Normal 2.5-4.5 [facility] Comment on above: Performed By: #### B C #### [employer] [address] [place] [address] [phone] [employer]: Sarath Olivera MD XR CHEST PORTABLEon 01-07-20 [...] Mayelin Reynolds MD 01/07/24 Final result Normal [facility] XR CHEST PORTABLE EXAMINATION: ONE XRAY [...] Deon Webb MD 01/07/24 Final result Normal [facility] Albuminon 01-06-2024 Albumin [Mass/Vol] 2.8 g/dL Low 3.5-5.2 [facility] Comment on above: Performed By: #### A LB, FT4, TSHX, GLYHGB, HH, VD25 ####[facility] [address] [place] [address] [facility] Director: Sarath Olivera MD Arterial Bld Gas,POCon 01-05 FIO2 100.0 Normal [facility] HCO3 (Bld) [Moles/Vol] 20.7 mmol/L Low 21.0-28.0 [facility] Negative Base Excess (calc) 3.5 mmol/L High 0.0-2.0 [facility] Oxygen saturation in Blood 99.5 % High 94.0-98.0 [facility] pCO2, Arterial 32.9 mm Hg Low 35.0-48.0 [facility] pH, Arterial 7.406 Normal 7.350-7.450 [facility] pO2, Arterial 164.9 mm Hg High 83.0-108.0 [facility] Site Drawn Arterial Line Normal [facility] FIO2 100.0 Normal [facility] HCO3 (Bld) [Moles/Vol] 19.1 mmol/L Low 21.0-28.0 [facility] Negative Base Excess (calc) 4.6 mmol/L High 0.0-2.0 [facility] Oxygen saturation in Blood 99.3 % High 94.0-98.0 [facility] pCO2, Arterial 29.3 mm Hg Low 35.0-48.0 [facility] pH, Arterial 7.421 Normal 7.350-7.450 [facility] pO2, Arterial 142.4 mm Hg High 83.0-108.0 [facility] Site Drawn Arterial Line Normal [facility] FIO2 3.0 Normal [facility] HCO3 (Bld) [Moles/Vol] 18.8 mmol/L Low 21.0-28.0 [facility] Negative Base Excess (calc) 5.5 mmol/L High 0.0-2.0 [facility] O2 Device Cannula Normal [facility] Oxygen saturation in Blood 90.0 % Low 94.0-98.0 [facility] pCO2, Arterial 30.6 mm Hg Low 35.0-48.0 [facility] pH, Arterial 7.395 Normal 7.350-7.450 [facility] pO2, Arterial 57.8 mm Hg Low 83.0-108.0 [facility] Site Drawn Right Radial Artery Normal [facility] FIO2 5.0 Normal [facility] HCO3 (Bld) [Moles/Vol] 12.6 mmol/L Low 21.0-28.0 [facility] Negative Base Excess (calc) 14.2 mmol/L High 0.0-2.0 [facility] Oxygen saturation in Blood 94.6 % Normal 94.0-98.0 [facility] pCO2, Arterial 32.3 mm Hg Low 35.0-48.0 [facility] pH, Arterial 7.199 Critically low 7.350-7.450 [facility] pO2, Arterial 88.8 mm Hg Normal 83.0-108.0 [facility] Site Drawn Right Radial Artery Normal [facility] Basic Metab w/rfx MGon 01-05 Anion gap [Moles/Vol] 18 mmol/L High 9-16 [facility] Comment on above: Performed By: #### Ashley CELESTE UAMIC #### [facility] VENNCOMM [address] [place] [address] [employer]: Sarath Olivera MD Calcium [Mass/Vol] 7.7 mg/dL Low 8.6-10.4 [facility] Comment on above: Performed By: #### Ashley CELESTE UAMIC #### [facility] [address] [place] [address] [employer]: Sarath Olivera MD Chloride [Moles/Vol] 110 mmol/L High 98-107 [facility] Comment on above: Performed By: #### Ashley CELESTE UAMIC #### [facility] [address] [place] [address] [employer]: Sarath Olivera MD CO2 [Moles/Vol] 15 mmol/L Low 20-31 [facility] Comment on above: Performed By: #### Ashley CELESTE UAMIC #### [facility] [address] [place] [address] [employer]: Sarath Olivera MD Creatinine [Mass/Vol] 1.9 mg/dL High 0.50-0.90 [facility] Comment on above: Performed By: #### Ashley CELESTE UAMIC #### [facility] [address] [place] [address] [employer]: Sarath Olivera MD GFR/1.73 sq M.predicted among non-blacks MDRD (S/P/Bld) [Vol rate/Area] 26 mL/min/{1.73_m2} Low >60 [facility] Comment on above: Result Comment: These [...] Performed By: #### Ashley CELESTE, UAMIC #### [facility] [address] [place] [address] [employer]: Sarath Olivera MD Glucose [Mass/Vol] 173 mg/dL High 74-99 [facility] Comment on above: Performed By: #### Ashley CELESTE, UAMIC #### [facility] [address] [place] [address] [employer]: Sarath Olivera MD Potassium [Moles/Vol] 4.6 mmol/L Normal 3.7-5.3 [facility] Comment on above: Performed By: #### Ashley AU, UAMIC #### [facility] [address] [place] [address] [employer]: Sarath Olivera MD Sodium [Moles/Vol] 143 mmol/L Normal 136-145 [facility] Comment on above: Performed By: #### Ashley AU, UAMIC #### [facility] [address] [place] [address] [employer]: Sarath Olivera MD Urea nitrogen [Mass/Vol] 32 mg/dL High 8-23 [facility] Comment on above: Performed By: #### Ashley AU, UAMIC #### [facility] [address] [place] [address] [employer]: Sarath Olivera MD Anion gap [Moles/Vol] 21 mmol/L High 9-16 [facility] Comment on above: Performed By: #### B C #### [address] [address] [employer]: Sarath Olivera MD Calcium [Mass/Vol] 7.6 mg/dL Low 8.6-10.4 [facility] Comment on above: Performed By: #### B C #### [address] [address] [employer]: Sarath Olivera MD Chloride [Moles/Vol] 113 mmol/L High 98-107 [facility] Comment on above: Performed By: #### B C #### [address] [address] [employer]: Sarath Olivera MD CO2 [Moles/Vol] 9 mmol/L Critically low 20-31 [facility] Comment on above: Performed By: #### B C #### [address] [address] [employer]: Sarath Olivera MD Creatinine [Mass/Vol] 1.7 mg/dL High 0.50-0.90 [facility] Comment on above: Performed By: #### B C #### [address] [address] [employer]: Saraht Olivera MD GFR/1.73 sq M.predicted among non-blacks MDRD (S/P/Bld) [Vol rate/Area] 20 mL/min/{1.73_m2} Low >60 [facility] Comment on above: Result Comment: These [...] secretion. Performed By: #### B C #### [facility] [address] [place] [address] [employer]: Sarath Olivera MD Glucose [Mass/Vol] 184 mg/dL High 74-99 [facility] Comment on above: Performed By: #### B C #### [address] [address] [employer]: Sarath Olivera MD Potassium [Moles/Vol] 4.7 mmol/L Normal 3.7-5.3 [facility] Comment on above: Performed By: #### B C #### [address] [address] [employer]: Sarath Olivera MD Sodium [Moles/Vol] 143 mmol/L Normal 136-145 [facility] Comment on above: Performed By: #### B C #### [address] [address] [employer]: Sarath Olivera MD Urea nitrogen [Mass/Vol] 30 mg/dL High 8-23 [facility] Comment on above: Performed By: #### B C #### [address] [address] [employer]: Sarath Olivera MD Basic Metabolic Profon 01-05 Anion gap [Moles/Vol] 9 mmol/L Normal 9-16 [facility] Comment on above: Performed By: #### B MP, IOCAL, CDP, PT, MG, SRAVANTHI ####[facility] [address] [place] [address])[phone] Director: Sarath Olivera MD Calcium [Mass/Vol] 8.0 mg/dL Low 8.6-10.4 [facility] Comment on above: Performed By: #### B MP, IOCAL, CDP, PT, MG, SRAVANTHI ####[facility] [address] [place] [address] Lab Director: Sarath Olivera MD Chloride [Moles/Vol] 114 mmol/L High 98-107 [facility] Comment on above: Performed By: #### B MP, IOCAL, CDP, PT, MG, SRAVANTHI ####[facility] [address] [place] [address] Lab Director: Sarath Olivera MD CO2 [Moles/Vol] 19 mmol/L Low 20-31 [facility] Comment on above: Performed By: #### B MP, IOCAL, CDP, PT, MG, SRAVANTHI ####[address] [address] Lab Director: Sarath Olivera MD Creatinine [Mass/Vol] 1.4 mg/dL High 0.50-0.90 [facility] Comment on above: Performed By: #### B MP, IOCAL, CDP, PT, MG, SRAVANTHI ####[address] [address] Lab Director: Sarath Olivera MD GFR/1.73 sq M.predicted among non-blacks MDRD (S/P/Bld) [Vol rate/Area] 38 mL/min/{1.73_m2} Low >60 [facility] Comment on above: Result Comment: These [...] B MP, IOCAL, CDP, PT, MG, SRAVANTHI ####[facility] [address] [place] [address] Lab Director: Sarath Olivera MD Glucose [Mass/Vol] 147 mg/dL High 74-99 [facility] Comment on above: Performed By: #### B MP, IOCAL, CDP, PT, MG, SRAVANTHI ####[facility] [address] [place], [place] [address])[phone] Director: Sarath Olivera MD Potassium [Moles/Vol] 4.4 mmol/L Normal 3.7-5.3 [facility] Comment on above: Performed By: #### B MP, IOCAL, CDP, PT, MG, SRAVANTHI ####[facility] [address] [place], [place] [address])[phone] Director: Sarath Olivera MD Sodium [Moles/Vol] 142 mmol/L Normal 136-145 [facility] Comment on above: Performed By: #### B MP, IOCAL, CDP, PT, MG, SRAVANTHI ####[facility] [address] [place], [place] [address])[phone] Director: Sarath Olivera MD Urea nitrogen [Mass/Vol] 36 mg/dL High 8-23 [facility] Comment on above: Performed By: #### B MP, IOCAL, CDP, PT, MG, SRAVANTHI ####[facility] [address] [place], [place] [address])[phone] Director: Sarath Olivera MD CBC with Diffon 01-06-2024 Abs. Basophil 0.00 k/uL Normal 0.0-0.2 [facility] Comment on above: Performed By: #### B MP, IOCAL, CDP, PT, MG, SRAVANTHI ####[facility] [address] [place], [place] [address])[phone] Director: Sarath Olivera MD Abs.Imm.Granulocyte 0.00 k/uL Normal 0.00-0.30 [facility] Comment on above: Performed By: #### B MP, IOCAL, CDP, PT, MG, SRAVANTHI ####[facility] [address] [place], [place] [address])[phone] Director: Sarath Olivera MD Abs.Neutrophil (Seg) 9.26 k/uL High 1.8-7.7 [facility] Comment on above: Performed By: #### B MP, IOCAL, CDP, PT, MG, SRAVANTHI ####[address] [address])[phone] Director: Sarath Olivera MD Basophils/100 WBC (Bld) 0 % Normal 0-2 [facility] Comment on above: Performed By: #### B MP, IOCAL, CDP, PT, MG, SRAVANTHI ####[facility] [address] [place] [address] Lab Director: Sarath Olivera MD Eosinophils (Bld) [#/Vol] 0.00 10*3/uL Normal 0.0-0.4 [facility] Comment on above: Performed By: #### B MP, IOCAL, CDP, PT, MG, SRAVANTHI ####[address] [address])[phone] Director: Sarath Olivera MD Eosinophils/100 WBC (Bld) 0 % Low 1-4 [facility] Comment on above: Performed By: #### B MP, IOCAL, CDP, PT, MG, SRAVANTHI ####[address] [address])[phone] Director: Sarath Olivera MD Immature granulocytes/100 WBC (Bld) 0 % Normal 0 [facility] Comment on above: Performed By: #### B MP, IOCAL, CDP, PT, MG, SRAVANTHI ####[facility] [address] [place] [address])[phone] Director: Sarath Olivera MD Lymphocytes (Bld) [#/Vol] 0.52 10*3/uL Low 1.0-4.8 [facility] Comment on above: Performed By: #### B MP, IOCAL, CDP, PT, MG, SRAVANTHI ####[facility] [address] [place] [address])[phone] Director: Sarath Olivera MD Lymphocytes/100 WBC (Bld) 5 % Low 24-44 [facility] Comment on above: Performed By: #### B MP, IOCAL, CDP, PT, MG, SRAVANTHI ####[address] [phone] Director: Sarath Olivera MD Monocytes (Bld) [#/Vol] 0.52 10*3/uL Normal 0.1-0.8 [facility] Comment on above: Performed By: #### B MP, IOCAL, CDP, PT, MG, SRAVANTHI ####[place], [place] [address])[phone] Director: Sarath Olivera MD Monocytes/100 WBC (Bld) 5 % Normal 1-7 [facility] Comment on above: Performed By: #### B MP, IOCAL, CDP, PT, MG, SRAVANTHI ####[place], [place] [address])[phone] Director: Sarath Olivera MD Morphology Manoj (Bld) [Interp] Normal Normal [facility] Comment on above: Performed By: #### B MP, IOCAL, CDP, PT, MG, SRAVANTHI ####[address] [phone] Director: Sarath Olivera MD Neutrophil (Seg) 90 % High 36-66 [facility] Comment on above: Performed By: #### B MP, IOCAL, CDP, PT, MG, SRAVANTHI ####[address] [address])[phone] Director: Sarath Olivera MD Erythrocyte distribution width (RBC) [Ratio] 14.5 % High 11.8-14.4 [facility] Comment on above: Performed By: #### B MP, IOCAL, CDP, PT, MG, SRAVANTHI ####[address] [place] [address] Lab Director: Sarath Olivera MD Hematocrit (Bld) [Volume fraction] 26.9 % Low 36.3-47.1 [facility] Comment on above: Performed By: #### B MP, IOCAL, CDP, PT, MG, SRAVANTHI ####[facility] [address] [place] [address] Lab Director: Sarath Olivera MD Hemoglobin (Bld) [Mass/Vol] 9.0 g/dL Low 11.9-15.1 [facility] Comment on above: Performed By: #### B MP, IOCAL, CDP, PT, MG, SRAVANTHI ####[place] [address] Lab Director: Sarath Olivera MD MCH (RBC) [Entitic mass] 30.8 pg Normal 25.2-33.5 [facility] Comment on above: Performed By: #### B MP, IOCAL, CDP, PT, MG, SRAVANTHI ####[facility] [address] [place] [address] Lab Director: Sarath Olivera MD MCHC (RBC) [Mass/Vol] 33.5 g/dL Normal 28.4-34.8 [facility] Comment on above: Performed By: #### B MP, IOCAL, CDP, PT, MG, SRAVANTHI ####[facility] [address] [place] [address] Lab Director: Sarath Olivera MD MCV (RBC) [Entitic vol] 92.1 fL Normal 82.6-102.9 [facility] Comment on above: Performed By: #### B MP, IOCAL, CDP, PT, MG, SRAVANTHI ####[facility] [address] [place] [address] Lab Director: Sarath Olivera MD NRBC Automated 0.0 per 100 WBC Normal 0.0 [facility] Comment on above: Performed By: #### B MP, IOCAL, CDP, PT, MG, SRAVANTHI ####[address] [address])[phone] Director: Sarath Olivera MD Platelet mean volume (Bld) [Entitic vol] 12.9 fL Normal 8.1-13.5 [facility] Comment on above: Performed By: #### B MP, IOCAL, CDP, PT, MG, SRAVANTHI ####[address] [address])[phone] Director: Sarath Olivera MD Platelets (Bld) [#/Vol] 66 10*3/uL Low 138-453 [facility] Comment on above: Performed By: #### B MP, IOCAL, CDP, PT, MG, SRAVANTHI ####[place], [place] [address])[phone] Director: Sarath Olivera MD RBC (Bld) [#/Vol] 2.92 10*6/uL Low 3.95-5.11 [facility] Comment on above: Performed By: #### B MP, IOCAL, CDP, PT, MG, SRAVANTHI ####[place], [place] [address])[phone] Director: Sarath Olivera MD WBC (Bld) [#/Vol] 10.3 10*3/uL Normal 3.5-11.3 [facility] Comment on above: Performed By: #### B MP, IOCAL, CDP, PT, MG, SRAVANTHI ####[address] [address])[phone] Director: Sarath Olivera MD Abs. Basophil 0.00 k/uL Normal 0.00-0.20 [facility] Comment on above: Performed By: #### C DP ####[address] [address])[phone] Director: Sarath Olivera MD Abs.Imm.Granulocyte 0.00 k/uL Normal 0.00-0.30 [facility] Comment on above: Performed By: #### C DP ####[place], [place] [address])[phone] Director: Sarath Olivera MD Abs.Neutrophil (Seg) 12.38 k/uL High 1.50-8.10 [facility] Comment on above: Performed By: #### C DP ####[place], [place] [address])[phone] Director: Sarath Olivera MD Basophils/100 WBC (Bld) 0 % Normal 0-2 [facility] Comment on above: Performed By: #### C DP ####[place], [place] [address])[phone] Director: Sarath Olivera MD Eosinophils (Bld) [#/Vol] 0.00 10*3/uL Normal 0.00-0.44 [facility] Comment on above: Performed By: #### C DP ####[place], [place] [address])[phone] Director: Sarath Olivera MD Eosinophils/100 WBC (Bld) 0 % Low 1-4 [facility] Comment on above: Performed By: #### C DP ####[place], [place] [address])[phone] Director: Sarath Olivera MD Immature granulocytes/100 WBC (Bld) 0 % Normal 0 [facility] Comment on above: Performed By: #### C DP ####[place], [place] [address])[phone] Director: Sarath Olivera MD Lymphocytes (Bld) [#/Vol] 0.91 10*3/uL Low 1.10-3.70 [facility] Comment on above: Performed By: #### C DP ####[address], [place] [phone] Director: Sarath Olivera MD Lymphocytes/100 WBC (Bld) 6 % Low 24-43 [facility] Comment on above: Performed By: #### C DP ####[address] [phone] Director: Sarath Olivera MD Monocytes (Bld) [#/Vol] 1.81 10*3/uL High 0.10-1.20 [facility] Comment on above: Performed By: #### C DP ####[address] [phone] Director: Sarath Olivera MD Monocytes/100 WBC (Bld) 12 % Normal 3-12 [facility] Comment on above: Performed By: #### C DP ####[address] [address])[phone] Director: Sarath Olivera MD Morphology Manoj (Bld) [Interp] ANISOCYTOSIS PRESENT Normal [facility] Comment on above: Performed By: #### C DP ####[address] [phone] Director: Sarath Olivera MD Neutrophil (Seg) 82 % High 36-65 [facility] Comment on above: Performed By: #### C DP ####[address] [address])[phone] Director: Sarath Olivera MD Erythrocyte distribution width (RBC) [Ratio] 14.9 % High 11.8-14.4 [facility] Comment on above: Performed By: #### C DP ####[address] [address])[phone] Director: Sarath Olivera MD Hematocrit (Bld) [Volume fraction] 25.3 % Low 36.3-47.1 [facility] Comment on above: Performed By: #### C DP ####[address] [address] Lab Director: Sarath Olivera MD Hemoglobin (Bld) [Mass/Vol] 7.7 g/dL Low 11.9-15.1 [facility] Comment on above: Performed By: #### C DP ####[place], [place] [address])[phone] Director: Sarath Olivera MD MCH (RBC) [Entitic mass] 30.8 pg Normal 25.2-33.5 [facility] Comment on above: Performed By: #### C DP ####[place], [place] [address])[phone] Director: Sarath Olivera MD MCHC (RBC) [Mass/Vol] 30.4 g/dL Normal 28.4-34.8 [facility] Comment on above: Performed By: #### C DP ####[address] [address])[phone] Director: Sarath Olivera MD MCV (RBC) [Entitic vol] 101.2 fL Normal 82.6-102.9 [facility] Comment on above: Performed By: #### C DP ####[place], [place] [address])[phone] Director: Sarath Olivera MD NRBC Automated 0.0 per 100 WBC Normal 0.0 [facility] Comment on above: Performed By: #### C DP ####[place], [place] [address])[phone] Director: Sarath Olivera MD Platelet mean volume (Bld) [Entitic vol] 12.7 fL Normal 8.1-13.5 [facility] Comment on above: Performed By: #### C DP ####[place], [place] [address])[phone] Director: Sarath Olivera MD Platelets (Bld) [#/Vol] 97 10*3/uL Low 138-453 [facility] Comment on above: Performed By: #### C DP ####[address] [phone] Director: Sarath Olivera MD RBC (Bld) [#/Vol] 2.50 10*6/uL Low 3.95-5.11 [facility] Comment on above: Performed By: #### C DP ####[address] [address])[phone] Director: Sarath Olivera MD WBC (Bld) [#/Vol] 15.1 10*3/uL High 3.5-11.3 [facility] Comment on above: Performed By: #### C DP ####[address] [address])[phone] Director: Sarath Olivera MD Abs. Basophil 0.00 k/uL Normal 0.0-0.2 [facility] Comment on above: Performed By: #### JOSIE RUSSELLMIC #### [facility] V[facility] [address] [place] [address] [employer]: Sarath Olivera MD Abs.Imm.Granulocyte 0.00 k/uL Normal 0.00-0.30 [facility] Comment on above: Performed By: #### Ashley CELESTE UAMIC #### [facility] V[facility] [address] [place] [address] [employer]: Sarath Olivera MD Abs.Neutrophil (Seg) 17.28 k/uL High 1.8-7.7 [facility] Comment on above: Performed By: #### Ashley CELESTE UAMIC #### [facility] V[facility] [address] [place] [address] [employer]: Sarath Olivera MD Basophils/100 WBC (Bld) 0 % Normal 0-2 [facility] Comment on above: Performed By: #### Ashley CELESTE UAMIC #### [address] [address] [employer]: Sarath Olivera MD Eosinophils (Bld) [#/Vol] 0.00 10*3/uL Normal 0.0-0.4 [facility] Comment on above: Performed By: #### Ashley CELESTE UAMIC #### [address] [address] [employer]: Sarath Olivera MD Eosinophils/100 WBC (Bld) 0 % Low 1-4 [facility] Comment on above: Performed By: #### Ashley CELESTE UAMIC #### [address] [address] [employer]: Sarath Olivera MD Immature granulocytes/100 WBC (Bld) 0 % Normal 0 [facility] Comment on above: Performed By: #### Ashley CELESTE UAMIC #### [address] [address] [employer]: Sarath Olivera MD Lymphocytes (Bld) [#/Vol] 1.41 10*3/uL Normal 1.0-4.8 [facility] Comment on above: Performed By: #### Ashley CELESTE UAMIC #### [address] [address] [employer]: Sarath Olivera MD Lymphocytes/100 WBC (Bld) 7 % Low 24-44 [facility] Comment on above: Performed By: #### Ashley CELESTE, UAMIC #### [address] [address] [employer]: Sarath Olivera MD Monocytes (Bld) [#/Vol] 1.41 10*3/uL High 0.1-0.8 [facility] Comment on above: Performed By: #### Ashley AU, UAMIC #### [address] [address] [employer]: Sarath Olivera MD Monocytes/100 WBC (Bld) 7 % Normal 1-7 [facility] Comment on above: Performed By: #### Ashley AU, UAMIC #### [address] [address] [employer]: Sarath Olivera MD Morphology Manoj (Bld) [Interp] Normal Normal [facility] Comment on above: Performed By: #### Ashley AU, UAMIC #### [address] [address] [employer]: Sarath Olivera MD Neutrophil (Seg) 86 % High 36-66 [facility] Comment on above: Performed By: #### Ashley CELESTE, UAMIC #### [address] [address] [employer]: Sarath Olivera MD Platelet, Fluoresc. Platelet clumps present, count appears decreased. Normal 138-453 [facility] Comment on above: Performed By: #### Ashley AU, UAMIC #### [address] [address] [employer]: Sarath Olivera MD Erythrocyte distribution width (RBC) [Ratio] 14.6 % High 11.8-14.4 [facility] Comment on above: Performed By: #### Ashley AU, UAMIC #### [facility] [address] [place] [address] [employer]: Sarath Olivera MD Hematocrit (Bld) [Volume fraction] 29.0 % Low 36.3-47.1 [facility] Comment on above: Performed By: #### Ashley AU, UAMIC #### [facility] [address] [place] [address] [employer]: Sarath Olivera MD Hemoglobin (Bld) [Mass/Vol] 9.2 g/dL Low 11.9-15.1 [facility] Comment on above: Performed By: #### Ashley CELESTE UAMIC #### [address] [address] [employer]: Sarath Olivera MD MCH (RBC) [Entitic mass] 31.0 pg Normal 25.2-33.5 [facility] Comment on above: Performed By: #### Ashley CELESTE UAMIC #### [address] [address] [employer]: Sarath Olivera MD MCHC (RBC) [Mass/Vol] 31.7 g/dL Normal 28.4-34.8 [facility] Comment on above: Performed By: #### Ashley CELESTE UAMIC #### [address] [address] [employer]: Sarath Olivera MD MCV (RBC) [Entitic vol] 97.6 fL Normal 82.6-102.9 [facility] Comment on above: Performed By: #### Ashley CELESTE UAMIC #### [address] [address] [employer]: Sarath Olivera MD NRBC Automated 0.0 per 100 WBC Normal 0.0 [facility] Comment on above: Performed By: #### Ashley CELESTE UAMIC #### [address] [address] [employer]: Sarath Olivera MD Platelet Count See Reflexed IPF Result Normal 138-453 [facility] Comment on above: Performed By: #### Ashley CELESTE UAMIC #### [address] [address] [employer]: Sarath Olivera MD RBC (Bld) [#/Vol] 2.97 10*6/uL Low 3.95-5.11 [facility] Comment on above: Performed By: #### D BOOKER UAMIC #### [place] [address] [employer]: Sarath Olivera MD WBC (Bld) [#/Vol] 20.1 10*3/uL High 3.5-11.3 [facility] Comment on above: Performed By: #### D BOOKER UAMIC #### [place] [address] [employer]: Sarath Olivera MD Abs. Basophil 0.00 k/uL Normal 0.0-0.2 [facility] Comment on above: Performed By: #### B C #### [place] [address] [employer]: Sarath Olivera MD Abs.Imm.Granulocyte 0.00 k/uL Normal 0.00-0.30 [facility] Comment on above: Performed By: #### B C #### [place] [address] [employer]: Sarath Olivera MD Abs.Neutrophil (Seg) 16.68 k/uL High 1.8-7.7 [facility] Comment on above: Performed By: #### B C #### [place] [address] [employer]: Sarath Olivera MD Basophils/100 WBC (Bld) 0 % Normal 0-2 [facility] Comment on above: Performed By: #### B C #### [place] [address] [employer]: Sarath Olivera MD Eosinophils (Bld) [#/Vol] 0.00 10*3/uL Normal 0.0-0.4 [facility] Comment on above: Performed By: #### B C #### [address] [address] [employer]: Sarath Olivera MD Eosinophils/100 WBC (Bld) 0 % Low 1-4 [facility] Comment on above: Performed By: #### B C #### [address] [address] [employer]: Sarath Olivera MD Immature granulocytes/100 WBC (Bld) 0 % Normal 0 [facility] Comment on above: Performed By: #### B C #### [address] [address] [employer]: Sarath Olivera MD Lymphocytes (Bld) [#/Vol] 1.01 10*3/uL Normal 1.0-4.8 [facility] Comment on above: Performed By: #### B C #### [address] [address] [employer]cher [employer]itter: Sarath Olivera MD Lymphocytes/100 WBC (Bld) 5 % Low 24-44 [facility] Comment on above: Performed By: #### B C #### [address] [address] [employer]: Sarath Olivera MD Monocytes (Bld) [#/Vol] 2.41 10*3/uL High 0.1-0.8 [facility] Comment on above: Performed By: #### B C #### [address] [address] [employer]cher [employer]itter: Sarath Olivera MD Monocytes/100 WBC (Bld) 12 % High 1-7 [facility] Comment on above: Performed By: #### B C #### [address] [address] [employer]: Sarath Olivera MD Morphology Manoj (Bld) [Interp] MACROCYTOSIS PRESENT Normal [facility] Comment on above: Performed By: #### B C #### [address] [address] [employer]itter: Sarath Olivera MD Neutrophil (Seg) 83 % High 36-66 [facility] Comment on above: Performed By: #### B C #### [address] [address] [employer]: Sarath Olivera MD Erythrocyte distribution width (RBC) [Ratio] 14.5 % High 11.8-14.4 [facility] Comment on above: Performed By: #### B C #### [address] [address] [employer]: Sarath Olivera MD Hematocrit (Bld) [Volume fraction] 34.4 % Low 36.3-47.1 [facility] Comment on above: Performed By: #### B C #### [address] [address] [employer]itter: Sarath Olivera MD Hemoglobin (Bld) [Mass/Vol] 10.2 g/dL Low 11.9-15.1 [facility] Comment on above: Performed By: #### B C #### [address] [address] [employer]itter: Sarath Olivera MD MCH (RBC) [Entitic mass] 31.2 pg Normal 25.2-33.5 [facility] Comment on above: Performed By: #### B C #### [address] [address] [employer]: Sarath Olivera MD MCHC (RBC) [Mass/Vol] 29.7 g/dL Normal 28.4-34.8 [facility] Comment on above: Performed By: #### B C #### [address] [address] [employer]itter: Sarath Olivera MD MCV (RBC) [Entitic vol] 105.2 fL High 82.6-102.9 [facility] Comment on above: Performed By: #### B C #### [address] [address] [employer]: Sarath Olivera MD NRBC Automated 0.0 per 100 WBC Normal 0.0 [facility] Comment on above: Performed By: #### B C #### [address] [address] [employer]: Sarath Olivera MD Platelet mean volume (Bld) [Entitic vol] 12.8 fL Normal 8.1-13.5 [facility] Comment on above: Performed By: #### B C #### [address] [address] [employer]: Sarath Olivera MD Platelets (Bld) [#/Vol] 126 10*3/uL Low 138-453 [facility] Comment on above: Performed By: #### B C #### [address] [address] [employer]itter: Sarath Olivera MD RBC (Bld) [#/Vol] 3.27 10*6/uL Low 3.95-5.11 [facility] Comment on above: Performed By: #### B C #### [address] [address] [employer]: Sarath Olivera MD WBC (Bld) [#/Vol] 20.1 10*3/uL High 3.5-11.3 [facility] Comment on above: Performed By: #### B C #### [address] [address] [employer]itter: Sarath Olivera MD CT CHEST ABDOMEN PELVIS [facility] 01-06-2024 CT CHEST ABDOMEN PELVIS WO CONTRAST [...] Pierre Cao MD 01/06/24 Final result Normal [facility] CT CYSTOGRAM W CONTRASTon CT CYSTOGRAM [...] Jose Todd MD 01/06/24 Final result Normal [facility] CT HEAD WO CONTRASTon 2023 CT [...] Lucian Dee MD 01/06/24 Final result Normal [facility] Calcium, Ionicon 01-06-2024 Calcium [Moles/Vol] 1.14 mmol/L Normal 1.13-1.33 [facility] Comment on above: Performed By: #### B MP, IOCAL, CDP, PT, MG, SRAVANTHI ####[employer] [id number] [place], [place] [id number] Lab Director: Sarath Olivera MD Calcium [Moles/Vol] 1.45 mmol/L High 1.13-1.33 [facility] Comment on above: Performed By: #### I OCAL, LACTIC, OHP ####[employer] [address] [place], [place] [id number] Lab Director: Sarath Olivera MD Calcium [Moles/Vol] 1.07 mmol/L Low 1.13-1.33 [facility] Comment on above: Performed By: #### B C #### [address] [address] [employer]: Sarath Olivera MD Calcium [Moles/Vol] 1.07 mmol/L Low 1.13-1.33 [facility] Comment on above: Performed By: #### I OCAL ####[address] [address] Lab Director: Sarath Olivera MD Calcium [Moles/Vol] 1.09 mmol/L Low 1.13-1.33 [facility] Comment on above: Performed By: #### B C #### [address] [address] [employer]itter: Sarath Olivera MD Creatinine,Random Uron 01-05 Creatinine [Mass/Vol] 155.0 mg/dL Normal 28.0-217.0 [facility] Comment on above: Performed By: #### U RNA, URCRE, CLARENCE ####[address] [address] Lab Director: Sarath Olivera MD Drug Scr, Abuse, Uron 2023 Fentanyl, Urine Sent to reference laboratory. Separate report to follow. Abnormal NEG [facility] Comment on above: Performed By: #### U RNA, URCRE, CLARENCE ####[address] [address] Lab Director: Sarath Olivera MD Interpretive Info Assay provides rapid clinical screening only. Presumptive positive results for Normal [facility] Comment on above: Result Comment: lega l purposes should be confirmed by another method. To request confirmation, please call the lab within 7 days of sample submission. Performed By: #### U RNA, URCRE, CLARENCE ####[address] [address] Lab Director: Sarath Olivera MD Opiate(s), Ur Positive Abnormal NEG [facility] Comment on above: Result Comment: Cuto ff: 300 ng/ml Performed By: #### U RNA, URCRE, CLARENCE ####[facility] [address] [place] [address] Lab Director: Sarath Olivera MD Oxycodone, Urine Sent to reference laboratory. Separate report to follow. Abnormal NEG [facility] Comment on above: Performed By: #### U RNA, URCRE, CLARENCE ####[facility] [id number] [place] [address] Lab Director: Sarath Olivera MD Amphetamine(s),Ur Negative Normal NEG [facility] Comment on above: Result Comment: Cuto ff: 1000 ng/mL Performed By: #### U RNA, URCRE, CLARENCE ####[facility] [address] [place] [address] Lab Director: Sarath Olivera MD Barbiturate(s),Ur Negative Normal NEG [facility] Comment on above: Result Comment: Cuto ff: 200 ng/ml Performed By: #### U RNA, URCRE, CLARENCE ####[facility] [address] [place] [address] Lab Director: Sarath Olivera MD Benzodiazepine(s) Negative Normal NEG [facility] Comment on above: Result Comment: Cuto ff: 200 ng/ml Performed By: #### U RNA, URCRE, CLARENCE ####[facility] [address] [place] [address] Lab Director: Sarath Olivera MD Cannabinoid(s),Ur Negative Normal NEG [facility] Comment on above: Result Comment: Cuto ff: 50 ng/ml Performed By: #### U RNA, URCRE, CLARENCE ####[facility] [address] [place] [address] Lab Director: Sarath Olivera MD Cocaine Metabolite Negative Normal NEG [facility] Comment on above: Result Comment: Cuto ff: 300 ng/ml Performed By: #### U RNA, URCRE, CLARENCE ####[facility] [address] [place] [address] Lab Director: Sarath Olivera MD Methadone Ql (U) Negative Normal NEG [facility] Comment on above: Result Comment: Cuto ff: 300 ng/ml Performed By: #### U RNA, URCRE, CLARENCE ####[address] [address] Lab Director: Sarath Olivera MD Phencyclidine, Ur Negative Normal NEG [facility] Comment on above: Result Comment: Cuto ff: 25 ng/ml Performed By: #### U RNA, URCRE, CLARENCE ####[facility] [id number] [place] [address] Lab Director: Sarath Olivera MD FLUORO FOR SURGICAL PROCEDUR ESon 01-06-2024 FLUORO FOR SURGICAL PROCEDURES Radiology exam is complete. No Radiologist dictation. Please follow up with ordering provider. Final result Normal [facility] Gl Hemostasis TEG w/Lysison 01-06-2024 Fibrinogen, Func TEG 20.5 mm Normal 15.0-32.0 [facility] Comment on above: Performed By: #### D AU UAMIC #### [facility] [address] [place] [address] [employer]: Sarath Olivera MD LY30 (Lysis) TEG 0.4 % Normal 0.0-2.6 [facility] Comment on above: Performed By: #### D AU, UAMIC #### [facility] [address] [place] [address] [employer]: Sarath Olivera MD MA Rapid TEG 61.6 mm Normal 52.0-70 [facility] Comment on above: Performed By: #### D AU, UAMIC #### [address] [address] [employer]: Sarath Olivera MD R(Reaction Time) TEG 6.0 min Normal 4.6-9.1 [facility] Comment on above: Performed By: #### D AU, UAMIC #### [address] [address] [employer]cher [employer]itter: Sarath Olivera MD Fibrinogen, Func TEG 21.6 mm Normal 15.0-32.0 [facility] Comment on above: Performed By: #### B C #### [address] [address] [employer]cher [employer]itter: Sarath Olivera MD LY30 (Lysis) TEG 0.1 % Normal 0.0-2.6 [facility] Comment on above: Performed By: #### B C #### [address] [address] [employer]: Sarath Olivera MD MA Rapid TEG 62.3 mm Normal 52.0-70.0 [facility] Comment on above: Performed By: #### B C #### [address] [address] [employer]: Sarath Olivera MD R(Reaction Time) TEG 5.7 min Normal 4.6-9.1 [facility] Comment on above: Performed By: #### B C #### [address] [address] [employer]: Sarath Olivera MD Glucose (POC)on 01-06-2024 Glucose [Mass/Vol] 150 mg/dL High 74-100 [facility] Glucose [Mass/Vol] 146 mg/dL High 74-100 [facility] Glucose [Mass/Vol] 164 mg/dL High 74-100 [facility] Glucose,Whole Bloodon 2023 Glucose [Mass/Vol] 155 mg/dL High 65-105 [facility] Hemoglobin A1Con 01-06-2024 Glucose [Mass/Vol] 111 mg/dL Normal [facility] Comment on above: Result Comment: The ADA and AACC recommend providing the estimated average glucose result to permit better patient understanding of their HBA1c result. Performed By: #### D BOOKER UAMIC #### [facility] [address] [place] [address] [employer]: Sarath Olivera MD HbA1c (Bld) [Mass fraction] 5.5 % Normal 4.0-6.0 [facility] Comment on above: Performed By: #### D BOOKER UAMIC #### [facility] [address] [place] [address] [employer]itter: Sarath Olivera MD Hgb/Hcton 01-06-2024 Hematocrit (Bld) [Volume fraction] 29.1 % Low 36.3-47.1 [facility] Comment on above: Performed By: #### A LB, FT4, TSHX, GLYHGB, HH, VD25 ####[facility] [address] [place] [address] Lab Director: Sarath Olivera MD Hemoglobin (Bld) [Mass/Vol] 8.6 g/dL Low 11.9-15.1 [facility] Comment on above: Performed By: #### A LB, FT4, TSHX, GLYHGB, HH, VD25 ####[facility] [address] [place] [address] Lab Director: Sarath Olivera MD Lactate, Sepsison 01-06-2024 Lactic Acid,Sep Wbld 7.4 mmol/L High 0.5-1.9 [facility] Comment on above: Performed By: #### B C #### [facility] [address] [place] [address] [employer]: Sarath Olivera MD Lactic Acidon 01-06-2024 Lactic Acid,Whole Bl 2.8 mmol/L High 0.7-2.1 [facility] Comment on above: Performed By: #### I OCAL LACTIC, OHP ####[facility] [address] [place], [place] [id number] Lab Director: Sarath Olivera MD Lactic Acid,Whole Bl 1.8 mmol/L Normal 0.7-2.1 [facility] Comment on above: Performed By: #### B C #### [facility] [address] [address] [place] [address] [employer]: Sarath Olivera MD Lactic Acid (POC)on 01-06-20 24 Lactate [Moles/Vol] 1.3 mmol/L Normal 0.56-1.39 [facility] Lactate [Moles/Vol] 1.5 mmol/L High 0.56-1.39 [facility] Lactate [Moles/Vol] 1.7 mmol/L High 0.56-1.39 [facility] Lactate [Moles/Vol] 7.2 mmol/L High 0.56-1.39 [facility] Liver Profileon 01-06-2024 Albumin [Mass/Vol] 3.0 g/dL Low 3.5-5.2 [facility] Comment on above: Performed By: #### L MARY ALCB #### [facility] [address] [place] [address] [employer]: Sarath Olivera MD Albumin/Glob Ratio 2.0 Normal 1.0-2.5 [facility] Comment on above: Performed By: #### L ACTMARILIN ALCB #### [facility] [address] [place] [address] [employer]cher [employer]itter: Sarath Olivera MD Alkaline Phos 61 U/L Normal 35-104 [facility] Comment on above: Performed By: #### L ACTMARILIN, ALCB #### [facility] [address] [place] [address] [employer]cher [employer]itter: Sarath Olivera MD ALT [Catalytic activity/Vol] 19 U/L Normal [address] [place] [address] Comment on above: Performed By: #### L ACTIC, ALCB #### [facility] [address] [place] [address] [employer]cher [employer]itter: Sarath Olivera MD AST [Catalytic activity/Vol] 62 U/L High 10-35 [facility] Comment on above: Performed By: #### L ACTIC, ALCB #### [facility] [address] [place] [address] [employer]cher [employer]itter: Sarath Olivera MD Bilirubin [Mass/Vol] 0.3 mg/dL Normal 0.00-1.20 [facility] Comment on above: Performed By: #### L ACTIC, ALCB #### [facility] [address] [place] [address] [employer]itter: Sarath Olivera MD Bilirubin, Indirect Can not be calculated Normal 0.0-1 .0 [facility] Comment on above: Performed By: #### L ACTIC, ALCB #### [facility] [address] [place] [address] [employer]cher [employer]itter: Sarath Olivera MD Bilirubin.indirect [Mass/Vol] mg/dL Normal 0.00-0.30 [facility] Comment on above: Performed By: #### L ACTIC, ALCB #### [facility] [address] [place] [address] [employer]itter: Sarath Olivera MD Globulin (S) [Mass/Vol] 1.8 g/dL Normal [facility] Comment on above: Performed By: #### L ACTIC, ALCB #### [facility] [address] [place] [address] [employer]cher [employer]itter: Sarath Olivera MD Protein [Mass/Vol] 4.8 g/dL Low 6.6-8.7 [facility] Comment on above: Performed By: #### L ACTIC, ALCB #### [facility] [address] [place] [address] [employer]cher [employer]itter: Sarath Olivera MD Magnesiumon 3 Magnesium [Mass/Vol] 1.9 mg/dL Normal 1.6-2.4 [facility] Comment on above: Performed By: #### B MP, IOCAL, CDP, PT, MG, SRAVANTHI ####[facility] [address] [place] [phone])[phone] Director: Sarath Olivera MD Magnesium [Mass/Vol] 1.6 mg/dL Normal 1.6-2.4 [facility] Comment on above: Performed By: #### D AU, UAMIC #### [facility] VENNCOMM [address] [place] [address] [employer]: Sarath Olivera MD Magnesium [Mass/Vol] 1.8 mg/dL Normal 1.6-2.4 [facility] Comment on above: Result Comment: QA F LAGS AND/OR RANGES MODIFIED BY DEMOGRAPHIC UPDATE ON 01/05 AT 0131 Performed By: #### B C #### [facility] VENNCOMM [facility] [place] [address] [employer] Matcher [employer] Fitter: Sarath Olivera MD Open Heart Panelon 4 Jerrell Test INFORMATION NOT PROVIDED Normal [facility] Comment on above: Performed By: #### I OCAL, LACTIC, OHP ####[facility] [address] [place], [place] [phone] Director: Sarath Olivera MD Body Temp. 37.0 Normal [facility] Comment on above: Performed By: #### I OCAL, LACTIC, OHP ####[facility] [address] [place] [address] Lab Director: Sarath Olivera MD Carboxy Hgb 0.8 % Normal 0-5 [facility] Comment on above: Result Comment: Reference Range: Non-Smokers 0-2% Average Smoker 2-4% Heavy Smoker <10% Performed By: #### I OCAL, LACTIC, OHP ####[facility] [address] [place], [place] [phone] Director: Sarath Olivera MD Chloride [Moles/Vol] 116 mmol/L High 98-110 [facility] Comment on above: Performed By: #### I OCAL, LACTIC, OHP ####[facility] [address] [place], [place] [phone] Director: Sarath Olivera MD FIO2 50% Normal [facility] Comment on above: Performed By: #### I OCAL, LACTIC, OHP ####[facility] [address] [place], [place] [phone] Director: Sarath Olivera MD Glucose [Mass/Vol] 138 mg/dL High 65-105 [facility] Comment on above: Performed By: #### I OCAL, LACTIC, OHP ####[facility] [address] [place], [place] [phone] Director: Sarath Olivera MD HCO3 (Bld) [Moles/Vol] 19.3 mmol/L Low 22-27 [facility] Comment on above: Performed By: #### I OCAL, LACTIC, OHP ####[facility] [address] [place], [place] [phone] Director: Sarath Olivera MD Hematocrit (Bld) [Volume fraction] 25.5 % Low 36.3-47.1 [facility] Comment on above: Performed By: #### I OCAL, LACTIC, OHP ####[facility] [address] [place] [address] Lab Director: Sarath Olivera MD Hemoglobin (Bld) [Mass/Vol] 8.2 g/dL Low 11.9-15.1 [facility] Comment on above: Performed By: #### I OCAL, LACTIC, OHP ####[facility] [address] [place], [place] [phone] Director: Sarath Olivera MD Negative Base Excess 6.1 mmol/L High 0.0-2.0 [facility] Comment on above: Performed By: #### I OCAL, LACTIC, OHP ####[facility] [address] [place], [place] [phone] Director: Sarath Olivera MD Oxygen (Bld) [Partial pressure] 106.0 mm[Hg] High 75-95 [facility] Comment on above: Performed By: #### I OCAL, LACTIC, OHP ####[facility] [address] [place], [place] [phone] Director: Sarath Olivera MD Oxygen saturation in Blood 97.7 % Normal 94-100 [facility] Comment on above: Performed By: #### I OCAL, LACTIC, OHP ####[facility] [address] [place], [place] [phone] Director: Sarath Olivera MD pCO2 40.0 mmHg Normal 32-45 [facility] Comment on above: Performed By: #### I OCAL, LACTIC, OHP ####[facility] [address] [place], [place] [phone] Director: Sarath Olivera MD pH (Bld) 7.304 [pH] Low 7.350-7.450 [facility] Comment on above: Performed By: #### I OCAL, LACTIC, OHP ####[facility] [address] [place], [place] [phone] Director: Sarath Olivera MD Potassium [Moles/Vol] 4.6 mmol/L Normal 3.6-5.0 [facility] Comment on above: Performed By: #### I OCAL, LACTIC, OHP ####[facility] [address] [place] [address] Lab Director: Sarath Olivera MD Sodium [Moles/Vol] 142 mmol/L Normal 136-145 [facility] Comment on above: Performed By: #### I OCAL, LACTIC, OHP ####[address] [address] Lab Director: Sarath Olivera MD Jerrell Test INFORMATION NOT PROVIDED [facility] Comment on above: Performed By: #### B C #### [address] [address] [employer]: Sarath Olivera MD Body Temp. 36.0 Normal [facility] Comment on above: Performed By: #### B C #### [address] [address] [employer]itter: Sarath Olivera MD Carboxy Hgb 1.6 % Normal 0-5 [facility] Comment on above: Result Comment: Reference Range: Non-Smokers 0-2% Average Smoker 2-4% Heavy Smoker <10% Performed By: #### B C #### [address] [address] [employer]: Sarath Olivera MD Chloride [Moles/Vol] 115 mmol/L High 98-110 [facility] Comment on above: Performed By: #### B C #### [address] [address] [employer]: Sarath Olivera MD FIO2 70% Normal [facility] Comment on above: Performed By: #### B C #### [address] [address] [employer]: Sarath Olivera MD Glucose [Mass/Vol] 138 mg/dL High 65-105 [facility] Comment on above: Performed By: #### B C #### [address] [address] [employer]: Sarath Olivera MD HCO3 (Bld) [Moles/Vol] 17.8 mmol/L Low 22-27 [facility] Comment on above: Performed By: #### B C #### [address] [address] [employer]: Sarath Olivera MD Hematocrit (Bld) [Volume fraction] 25.6 % Low 36.3-47.1 [facility] Comment on above: Performed By: #### B C #### [address] [address] [employer]: Sarath Olivera MD Hemoglobin (Bld) [Mass/Vol] 8.2 g/dL Low 11.9-15.1 [facility] Comment on above: Performed By: #### B C #### [address] [address] [employer]: Sarath Olivera MD Negative Base Excess 8.4 mmol/L High 0.0-2.0 [facility] Comment on above: Performed By: #### B C #### [address] [address] [employer]: Sarath Olivera MD Oxygen (Bld) [Partial pressure] 102.0 mm[Hg] High 75-95 [facility] Comment on above: Performed By: #### B C #### [address] [address] [employer]itter: Sarath Olivera MD Oxygen saturation in Blood 96.8 % Normal 94-100 [facility] Comment on above: Performed By: #### B C #### [address] [address] [employer]itter: Sarath Olivera MD pCO2 42.6 mmHg Normal 32-45 [facility] Comment on above: Performed By: #### B C #### [address] [address] [employer]itter: Sarath Olivera MD pH (Bld) 7.246 [pH] Low 7.350-7.450 [facility] Comment on above: Performed By: #### B C #### [address] [address] [employer]itter: Sarath Olivera MD Potassium [Moles/Vol] 4.5 mmol/L Normal 3.6-5.0 [facility] Comment on above: Performed By: #### B C #### [address] [address] [employer]itter: Sarath Olivera MD Sodium [Moles/Vol] 140 mmol/L Normal 136-145 [facility] Comment on above: Performed By: #### B C #### [address] [address] [employer]: Sarath Olivera MD PTon 01-06-2024 INR Coag (PPP) [Relative time] 1.4 {INR} Normal [facility] Comment on above: Result Comment: Therapeutic Range: Moderate Anticoagulant Intensity: INR = 2.0-3.0 High Anticoagulant Intensity: INR = 2.5-3.5 Performed By: #### B MP, IOCAL, CDP, PT, MG, SRAVANTHI ####[address] [address] Lab Director: Sarath Olivera MD PT Coag (PPP) [Time] 17.3 s High 11.7-14.9 [facility] Comment on above: Performed By: #### B MP, IOCAL, CDP, PT, MG, SRAVANTHI ####[place] [address] [place] [address] Lab Director: Sarath Olivera MD INR Coag (PPP) [Relative time] 1.6 {INR} Normal [facility] Comment on above: Result Comment: Therapeutic Range: Moderate Anticoagulant Intensity: INR = 2.0-3.0 High Anticoagulant Intensity: INR = 2.5-3.5 Performed By: #### RIOS SANZ #### [facility] [address] [place] [address] [employer]: Sarath Olivera MD PT Coag (PPP) [Time] 18.4 s High 11.7-14.9 [facility] Comment on above: Performed By: #### L MELANY HERNANDEZB #### [facility] [address] [place] [address] [employer]itter: Sarath Olivera MD INR Coag (PPP) [Relative time] 1.5 {INR} Normal [facility] Comment on above: Result Comment: Therapeutic Range: Moderate Anticoagulant Intensity: INR = 2.0-3.0 High Anticoagulant Intensity: INR = 2.5-3.5 Performed By: #### Ashley CELESTE UAMIC #### [facility] [address] [place] [address] [employer]itter: Sarath Olivera MD PT Coag (PPP) [Time] 17.8 s High 11.7-14.9 [facility] Comment on above: Performed By: #### D BOOKER UAMIC #### [facility] [address] [place] [address] [employer]itter: Sarath Olivera MD Phosphorus, Inorg.on 024 Phosphorus, Inorg. 3.2 mg/dL Normal 2.5-4.5 [facility] Comment on above: Performed By: #### B MP, IOCAL, CDP, PT, MG, SRAVANTHI ####[facility] [address] [place] [address] Lab Director: Sarath Olivera MD Phosphorus, Inorg. 4.7 mg/dL High 2.5-4.5 [facility] Comment on above: Performed By: #### D AU, UAMIC #### [facility] [address] [place] [address] [employer] Matcher And Fitter: Sarath Olivera MD Phosphorus, Inorg. 4.7 mg/dL High 2.5-4.5 [facility] Comment on above: Performed By: #### B C #### [facility]M [facility] [place] [address] [employer]cher [employer]itter: Sarath Olivera MD Sodium, Random Uron 01-06-20 24 Sodium (U) [Moles/Vol] 25 mmol/L Normal [facility] Comment on above: Result Comment: No n ormal range established. Performed By: #### U RNA, URCRE, CLARENCE ####[facility] [address] [place] [address] Lab Director: Sarath Olivera MD TSH w/reflex to FT4on 2023 Thyroid Stim. Horm. 3.13 uIU/mL Normal 0.27-4.20 [facility] Comment on above: Performed By: #### A LB, FT4, TSHX, GLYHGB, HH, VD25 ####[facility] [address] [place] [address] Lab Director: Sarath Olivera MD Thyroxine, Freeon 01-06-2024 Thyroxine, Free 0.9 ng/dL Low 0.92-1.68 [facility] Comment on above: Performed By: #### A LB, FT4, TSHX, GLYHGB, HH, VD25 ####[facility] [address] [place] [address] Lab Director: Sarath Olivera MD Troponinon 01-06-2024 Troponin, High Sens 114 ng/L Critically high 0-14 [facility] Comment on above: Result Comment: High Sensitivity Troponin values cannot be compared with other Troponin methodologies. Performed By: #### L MELANY HERNANDEZB #### [facility] [address] [place] [address] [employer]: Sarath Olivera MD Type + Screenon 01-06-2024 Type + Screen Sample Expiration 01/08/2024,2359 Arm Band Number [id number] ABO/Rh(D) O POSITIVE Antibody Screen NEGATIVE Unit Number [id number] Blood Component Type Leukocyte Reduced Red Cell Unit Division 00 Status of Unit TRANSFUSED Transfusion Status OK TO TRANSFUSE Crossmatch Result COMPATIBLE Unit Number [id number] Blood Component Type Leukocyte Reduced Red Cell Unit Division 00 Status of Unit TRANSFUSED Transfusion Status OK TO TRANSFUSE Crossmatch Result COMPATIBLE Normal [facility] Comment on above: Performed By: #### B C #### [facility] [address] [place] [address] [employer]: Sarath Olivera MD Vitamin B12on 01-06-2024 Cobalamin (Vitamin B12) [Mass/Vol] 253 pg/mL Normal 232-1245 [facility] Comment on above: Performed By: #### B C #### [facility] [address] [place] [address] [employer]cher [employer]itter: Sarath Olivera MD Vitamin D 25 OHon 01-06-2024 Vitamin D 25 [place] 34.7 ng/mL Normal 30.0-100.0 [facility] Comment on above: Result Comment: Reference Range: Vitamin D status Range Deficiency <20 ng/mL Mild Deficiency 20-30 ng/mL Sufficiency 30-100 ng/mL Toxicity >100 ng/mL Performed By: #### D AU, UAMIC #### [address] [address] [employer]cher [employer]itter: Sarath Olivera MD Vitamin D 25 [place] 34.3 ng/mL Normal 30.0-100.0 [facility] Comment on above: Result Comment: Reference Range: Vitamin D status Range Deficiency <20 ng/mL Mild Deficiency 20-30 ng/mL Sufficiency 30-100 ng/mL Toxicity >100 ng/mL Performed By: #### L ACTIC, ALCB #### [facility]M [facility] [place] [phone] [employer]cher [employer]itter: Sarath Olivera MD XR CHEST PORTABLEon 01-06-20 [...] Chevy Parra MD 01/06/24 Final result Normal [facility] XR CHEST PORTABLE EXAMINATION: ONE XRAY [...] Concepción Godoy MD 01/06/24 Final result Normal [facility] XR FEMUR RIGHT (MIN 2 VIEWS) [...] Chevy Parra MD 01/06/24 Final result Normal [facility] XR SHOULDER LEFT (MIN 2 VIEW [...] Chevy Parra MD 01/06/24 Final result Normal [facility] Basic Metabolic Profon 01-04 Anion gap [Moles/Vol] 16 mmol/L Normal 9-16 [facility] Comment on above: Performed By: #### D AU, UAMIC #### [facility] [place] [address] [employer]cher [employer]itter: Sarath Olivera MD Calcium [Mass/Vol] 6.3 mg/dL Low 8.6-10.4 [facility] Comment on above: Performed By: #### D AU, UAMIC #### [facility] [address] [place] [address] [employer]cher [employer]itter: Sarath Olivera MD Chloride [Moles/Vol] 115 mmol/L High 98-107 [facility] Comment on above: Performed By: #### D AU, UAMIC #### [facility] [address] [place] [address] [employer]cher [employer] Fitter: Sarath Olivera MD CO2 [Moles/Vol] 13 mmol/L Low 20-31 [facility] Comment on above: Performed By: #### Ashley CELESTE, UAMIC #### [facility] [address] [place] [address] [employer]cher [employer]itter: Sarath Olivera MD Creatinine [Mass/Vol] 1.3 mg/dL High 0.50-0.90 [facility] Comment on above: Performed By: #### Ashley CELESTE, UAMIC #### [address] [address] [employer] Matcher [employer] Fitter: Sarath Olivera MD GFR/1.73 sq M.predicted among non-blacks MDRD (S/P/Bld) [Vol rate/Area] 29 mL/min/{1.73_m2} Low >60 [facility] Comment on above: Result Comment: These [...] Performed By: #### Ashley AU, UAMIC #### [address] [address] [employer] Matcher [employer] Fitter: Sarath Olivera MD Glucose [Mass/Vol] 174 mg/dL High 74-99 [facility] Comment on above: Performed By: #### Ashley CELESTE UAMIC #### [facility] [address] [place] [address] [employer]cher [employer] Fitter: Sarath Olivera MD Potassium [Moles/Vol] 3.4 mmol/L Low 3.7-5.3 [facility] Comment on above: Result Comment: SPEC IMEN SLIGHTLY HEMOLYZED, RESULTS MAY BE ADVERSELY AFFECTED. Performed By: #### Ashley CELESTE UAMIC #### [facility] [address] [place] [address] [employer]cher [employer]itter: Sarath Olivera MD Sodium [Moles/Vol] 144 mmol/L Normal 136-145 [facility] Comment on above: Performed By: #### Ashley CELESTE UAMIC #### [facility] [address] [place] [address] [employer]cher [employer]itter: Sarath Olivera MD Urea nitrogen [Mass/Vol] 23 mg/dL Normal 8-23 [facility] Comment on above: Performed By: #### Ashley CELESTE UAMIC #### [facility] [address] [place] [address] [employer]: Sarath Olivera MD CBCon 01-05-2024 Erythrocyte distribution width (RBC) [Ratio] 14.4 % Normal 11.8-14.4 [facility] Comment on above: Performed By: #### B C #### [facility] [address] [place] [address] [employer]itter: Sarath Olivera MD Hematocrit (Bld) [Volume fraction] 31.8 % Low 36.3-47.1 [facility] Comment on above: Performed By: #### B C #### [facility] [address] [place] [address] [employer]cher [employer]itter: Sarath Olivera MD Hemoglobin (Bld) [Mass/Vol] 9.9 g/dL Low 11.9-15.1 [facility] Comment on above: Performed By: #### B C #### [address] [address] [employer]cher [employer]itter: Sarath Olivera MD MCH (RBC) [Entitic mass] 31.2 pg Normal 25.2-33.5 [facility] Comment on above: Performed By: #### B C #### [address] [address] [employer]cher [employer]itter: Sarath Olivera MD MCHC (RBC) [Mass/Vol] 31.1 g/dL Normal 28.4-34.8 [facility] Comment on above: Performed By: #### B C #### [address] [address] [employer] Matcher [employer] Fitter: Sarath Olivera MD MCV (RBC) [Entitic vol] 100.3 fL Normal 82.6-102.9 [facility] Comment on above: Performed By: #### B C #### [address] [address] [employer]cher [employer] Fitter: Sarath Olivera MD NRBC Automated 0.0 per 100 WBC Normal 0.0 [facility] Comment on above: Performed By: #### B C #### [address] [address] [employer]cher [employer]itter: Sarath Olivera MD Platelet mean volume (Bld) [Entitic vol] 12.8 fL Normal 8.1-13.5 [facility] Comment on above: Performed By: #### B C #### [address] [address] [employer]cher [employer]itter: Sarath Olivera MD Platelets (Bld) [#/Vol] 146 10*3/uL Normal 138-453 [facility] Comment on above: Performed By: #### B C #### [address] [address] [employer]cher [employer] Fitter: Sarath Olivera MD RBC (Bld) [#/Vol] 3.17 10*6/uL Low 3.95-5.11 [facility] Comment on above: Performed By: #### B C #### [facility] [address] [place], [place] [phone] [employer]cher [employer] Fitter: Sarath Olivera MD WBC (Bld) [#/Vol] 22.0 10*3/uL High 3.5-11.3 [facility] Comment on above: Performed By: #### B C #### [facility] [address] [place], [place] [phone] [employer]cher [employer] Fitter: Sarath Olivera MD CT CHEST ABDOMEN PELVIS [...] Amol Martínez MD 01/05/24 Final result Normal [facility] CT LUMBAR SPINE BONY RECONST RUCTIONon [...] Amol Martínez MD 01/05/24 Final result Normal [facility] CT THORACIC SPINE BONY RECON STRUCTIONon [...] Amol Martínez MD 01/05/24 Final result Normal [facility] Creatine Kinaseon 01-05-2024 CK [Catalytic activity/Vol] 725 U/L High 26-192 [facility] Comment on above: Performed By: #### Ashley CELESTE UAMIC #### [facility] [address] [place] [address] [employer]cher [employer] Fitter: Sarath Olivera MD Drug Scr, Abuse, Uron 2023 Fentanyl, Urine Sent to reference laboratory. Separate report to follow. Abnormal NEG [facility] Comment on above: Result Comment: OZZIE CHRISTINE NOTIFIED (Positive cutoff 5 ng/ml) Performed By: #### Ashley CELESTE UAMIC #### [facility] [address] [place] [address] [phone] [employer]cher [employer] Fitter: Sarath Olivera MD Oxycodone, Urine Sent to reference laboratory. Separate report to follow. Abnormal NEG [facility] Comment on above: Result Comment: OZZIE CHRISTINE NOTIFIED (Positive cutoff 100 ng/mL) Performed By: #### Ashley AU, UAMIC #### [facility] [address] [place] [address] [employer]cher [employer] Fitter: Sarath Olivera MD Interpretive Info Assay provides rapid clinical screening only. Presumptive positive results for Normal [facility] Comment on above: Result Comment: lega l purposes should be confirmed by another method. To request confirmation, please call the lab within 7 days of sample submission. Performed By: #### Ashley AU, UAMIC #### [facility] [address] [place] [address] [employer]cher [employer] Fitter: Sarath Olivera MD Opiate(s), Ur Positive Abnormal NEG [facility] Comment on above: Result Comment: Cuto ff: 300 ng/ml Performed By: #### Ashley AU, UAMIC #### [facility] [address] [place] [address] [employer]cher [employer] Fitter: Sarath Olivera MD Amphetamine(s),Ur Negative Normal NEG [facility] Comment on above: Result Comment: Cuto ff: 1000 ng/mL Performed By: #### Ashley AU, UAMIC #### [facility] [address] [place] [address] [employer]cher [employer] Fitter: Sarath Olivera MD Barbiturate(s),Ur Negative Normal NEG [facility] Comment on above: Result Comment: Cuto ff: 200 ng/ml Performed By: #### Ashley AU, UAMIC #### [facility] [address] [place] [address] [employer]cher [employer] Fitter: Sarath Olivera MD Benzodiazepine(s) Negative Normal NEG [facility] Comment on above: Result Comment: Cuto ff: 200 ng/ml Performed By: #### D AU, UAMIC #### [facility] [address] [place] [address] [employer]cher [employer]itter: Sarath Olivera MD Cannabinoid(s),Ur Negative Normal NEG [facility] Comment on above: Result Comment: Cuto ff: 50 ng/ml Performed By: #### Ashley AU, UAMIC #### [address] [address] [employer]cher [employer] Fitter: Sarath Olivera MD Cocaine Metabolite Negative Normal NEG [facility] Comment on above: Result Comment: Cuto ff: 300 ng/ml Performed By: #### Ashley CELESTE, UAMIC #### [address] [address] [employer] Matcher [employer] Fitter: Sarath Olivera MD Methadone Ql (U) Negative Normal NEG [facility] Comment on above: Result Comment: Cuto ff: 300 ng/ml Performed By: #### Ashley CELESTE, UAMIC #### [address] [address] [employer]cher [employer] Fitter: Sarath Olivera MD Phencyclidine, Ur Negative Normal NEG [facility] Comment on above: Result Comment: Cuto ff: 25 ng/ml Performed By: #### Ashley CELESTE, UAMIC #### [address] [address] [employer]cher [employer] Fitter: Sarath Olivera MD Ethanol Alcoholon 01-05-2024 Ethanol [Mass/Vol] mg/dL Normal <10 [facility] Comment on above: Performed By: #### B C #### [address] [address] [employer]cher [employer]itter: Sarath Olivera MD Ethanol percent <0.010 Normal <0.010 [facility] Comment on above: Performed By: #### B C #### [facility] [address] [place] [address] [id number] [employer]: Sarath Olivera MD Global Hemostasis(TEG 6S)on 01-05-2024 Angle TEG 75.0 deg Normal 63.0-78.0 [facility] Comment on above: Performed By: #### B C #### [address] [address] [employer]: Sarath Olivera MD Fibrinogen, Func TEG 23.0 mm Normal 15.0-32.0 [facility] Comment on above: Performed By: #### B C #### [address] [address] [employer]: Sarath Olivera MD K (Kinetics) TEG 1.1 min Normal 0.8-2.1 [facility] Comment on above: Performed By: #### B C #### [address] [address] [employer]: Sarath Olivera MD MA (Max Clot) TEG 65.4 mm Normal 52.0-69.0 [facility] [place] Comment on above: Performed By: #### B C #### [address] [address] [employer]: Sarath Olivera MD MA Rapid TEG 65.2 mm Normal 52.0-70 [facility] Comment on above: Performed By: #### B C #### [address] [address] [employer]: Sarath Olivera MD R TEG w/Hep 4.6 min Normal 4.3-8.3 [facility] Comment on above: Performed By: #### B C #### [address] [address] [employer]: Sarath Olivera MD R(Reaction Time) TEG 4.7 min Normal 4.6-9.1 [facility] Comment on above: Performed By: #### B C #### [address] [address] [employer]: Sarath Olivera MD Lactate, Sepsison 01-05-2024 Lactic Acid,Sep Wbld 7.9 mmol/L High 0.5-1.9 [facility] Comment on above: Performed By: #### Ashley CELESTE UAMIC #### [address] [address] [employer]: Sarath Olivera MD Lactic Acidon 01-05-2024 Lactic Acid,Whole Bl 7.0 mmol/L High 0.7-2.1 [facility] Comment on above: Performed By: #### L ACTIC, ALCB #### [facility] [address] [place] [address] [employer]: Sarath Olivera MD Myoglobinon 01-05-2024 Myoglobin [Mass/Vol] 3228 ng/mL High 25-58 [facility] Comment on above: Performed By: #### Ashley CELESTE UAMIC #### [address] [address] [employer]: Sarath Olivera MD PTon 01-05-2024 INR Coag (PPP) [Relative time] 1.4 {INR} Normal [facility] Comment on above: Result Comment: Therapeutic Range: Moderate Anticoagulant Intensity: INR = 2.0-3.0 High Anticoagulant Intensity: INR = 2.5-3.5 Performed By: #### B C #### [address] [address] [employer]: Sarath Olivera MD PT Coag (PPP) [Time] 16.6 s High 11.7-14.9 [facility] Comment on above: Performed By: #### B C #### [address] [address] [employer]: Sarath Olivera MD Trauma Profileon 01-05-2024 Anion gap [Moles/Vol] 15 mmol/L Normal 9-16 [facility] Comment on above: Performed By: #### B C #### [address] [address] [employer]: Sarath Olivera MD Chloride [Moles/Vol] 111 mmol/L High 98-107 [facility] Comment on above: Performed By: #### B C #### [address] [address] [employer]: Sarath Olivera MD CO2 [Moles/Vol] 17 mmol/L Low 20-31 [facility] Comment on above: Performed By: #### B C #### [address] [address] [employer]: Sarath Olivera MD Creatinine [Mass/Vol] 1.5 mg/dL High 0.50-0.90 [facility] Comment on above: Performed By: #### B C #### [address] [address] [employer]: Sarath Olivera MD Ethanol [Mass/Vol] mg/dL Normal <10 [facility] Comment on above: Performed By: #### B C #### [address] [address] [employer]: Sarath Olivera MD Ethanol percent <0.010 Normal <0.010 [facility] Comment on above: Performed By: #### B C #### [address] [address] [employer]: Sarath Olivera MD GFR/1.73 sq M.predicted among non-blacks MDRD (S/P/Bld) [Vol rate/Area] 23 mL/min/{1.73_m2} Low >60 [facility] Comment on above: Result Comment: These [...] secretion. Performed By: #### B C #### [address] [address] [employer]: Sarath Olivera MD Glucose [Mass/Vol] 191 mg/dL High 74-99 [facility] Comment on above: Performed By: #### B C #### [address] [address] [employer]: Sarath Olivera MD Potassium [Moles/Vol] 3.6 mmol/L Low 3.7-5.3 [facility] Comment on above: Performed By: #### B C #### [address] [address] [employer]: Sarath Olivera MD Sodium [Moles/Vol] 143 mmol/L Normal 136-145 [facility] Comment on above: Performed By: #### B C #### [address] [address] [employer]: Sarath Olivera MD Urea nitrogen [Mass/Vol] 26 mg/dL High 8-23 [facility] Comment on above: Performed By: #### B C #### [address] [address] [employer]: Sarath Olivera MD HCG Screen, Blood Negative Normal NEG [facility] [place] Comment on above: Result Comment: Spec imens with hCG levels near the threshold of the test (25 mIU/mL) may give a negative or indeterminate result. In such cases, another test should be performed with a new specimen in 48-72 hours. If early is suspected clinically in this setting, correlation with quantitative serum b-hCG level is suggested. [facility] has confirmed the use of plasma for this test. This has not been cleared or approved by the U.S. Food and Drug Administration. The FDA has determined that such clearance is not necessary. Performed By: #### B C #### [address] [address] [employer]: Sarath Olivera MD aPTT Coag (Bld) [Time] 28.7 s Normal 23.0-36.5 [facility] Comment on above: Result Comment: IV Heparin Therapy Range: 66.0-92.0 sec Performed By: #### B C #### [address] [address] [employer]: Sarath Olivera MD INR Coag (PPP) [Relative time] 4.4 {INR} Normal [facility] Comment on above: Result Comment: Therapeutic Range: Moderate Anticoagulant Intensity: INR = 2.0-3.0 High Anticoagulant Intensity: INR = 2.5-3.5 Performed By: #### B C #### [address] [address] [employer]: Sarath Olivera MD PT Coag (PPP) [Time] 40.5 s High 11.7-14.9 [facility] Comment on above: Performed By: #### B C #### [address] [address] [employer]: Sarath Olivera MD Body Temp. 37.0 Normal [facility] Comment on above: Performed By: #### B C #### [address] [address] [employer]: Sarath Olivera MD Carboxy Hgb 2.7 % Normal 0-5 [facility] Comment on above: Result Comment: Reference Range: Non-Smokers 0-2% Average Smoker 2-4% Heavy Smoker <10% Performed By: #### B C #### [address] [address] [employer]: Sarath Olivera MD Erythrocyte distribution width (RBC) [Ratio] 14.4 % Normal 11.8-14.4 [facility] Comment on above: Performed By: #### B C #### [address] [address] [employer]: Sarath Olivera MD FIO2 INFORMATION NOT PROVIDED [facility] Comment on above: Performed By: #### B C #### [address] [address] [employer]: Sarath Olivera MD HCO3 (Bld) [Moles/Vol] 17.2 mmol/L Low 24-30 [facility] Comment on above: Performed By: #### B C #### [address] [address] [employer]: Sarath Olivera MD Hematocrit (Bld) [Volume fraction] 32.6 % Low 36.3-47.1 [facility] Comment on above: Performed By: #### B C #### [address] [address] [employer]: Sarath Olivera MD Hemoglobin (Bld) [Mass/Vol] 9.8 g/dL Low 11.9-15.1 [facility] Comment on above: Performed By: #### B C #### [address] [address] [employer]: Sarath Olivera MD MCH (RBC) [Entitic mass] 31.4 pg Normal 25.2-33.5 [facility] Comment on above: Performed By: #### B C #### [address] [address] [employer]: Sarath Olivera MD MCHC (RBC) [Mass/Vol] 30.1 g/dL Normal 28.4-34.8 [facility] Comment on above: Performed By: #### B C #### [address] [address] [employer]: Sarath Olivera MD MCV (RBC) [Entitic vol] 104.5 fL High 82.6-102.9 [facility] Comment on above: Performed By: #### B C #### [address] [address] [employer]: Sarath Olivera MD Negative Base Excess 9.9 mmol/L High 0.0-2.0 [facility] Comment on above: Performed By: #### B C #### [address] [address] [employer]: Sarath Olivrea MD NRBC Automated 0.0 per 100 WBC Normal 0.0 [facility] Comment on above: Performed By: #### B C #### [address] [address] [employer]: Sarath Olivera MD Oxygen saturation in Blood 65.9 % Normal 60.0-85.0 [facility] Comment on above: Performed By: #### B C #### [address] [address] [employer]: Sarath Olivera MD pCO2 45.1 mm Hg Normal 39-55 [facility] Comment on above: Performed By: #### B C #### [address] [address] [employer]: Sarath Olivera MD pH (Bld) 7.205 [pH] Critically low 7.320-7.420 [facility] Comment on above: Performed By: #### B C #### [address] [address] [employer]: Sarath Olivera MD Platelet mean volume (Bld) [Entitic vol] 12.6 fL Normal 8.1-13.5 [facility] Comment on above: Performed By: #### B C #### [address] [place] [address] [employer]: Sarath Olivera MD Platelets (Bld) [#/Vol] 140 10*3/uL Normal 138-453 [facility] Comment on above: Performed By: #### B C #### [address] [address] [employer]: Sarath Olivera MD pO2 41.3 mm Hg Normal 30-50 [facility] Comment on above: Performed By: #### B C #### [address] [address] [employer]: Sarath Olivera MD RBC (Bld) [#/Vol] 3.12 10*6/uL Low 3.95-5.11 [facility] Comment on above: Performed By: #### B C #### [address] [address] [employer]: Sarath Olivera MD WBC (Bld) [#/Vol] 22.6 10*3/uL High 3.5-11.3 [facility] Comment on above: Performed By: #### B C #### [address] [address] [employer]cher [employer]: Sarath Olivera MD Blood Bank BILL FOR SERVICES PERFORMED Normal [facility] Comment on above: Performed By: #### B C #### [address] [address] [employer]: Sarath Olivera MD Urinalysis w/ Microon 2023 Bilirubin, SemiQt,Ur Negative Abnormal NEG [facility] Comment on above: Performed By: #### D AU, UAMIC #### [address] [address] [employer]cher [employer]: Sarath Olivera MD Casts 5 TO 10 Normal 0-2 [facility] Comment on above: Result Comment: HYAL INE Performed By: #### Ashley AU, UAMIC #### [address] [address] [employer]: Sarath Olivera MD Epithelial cells LM Ql (Urine sed) 20 TO 50 Normal 0-5 [facility] Comment on above: Performed By: #### Ashley CELESTE, UAMIC #### [address] [address] [employer]cher [employer]: Sarath Olivera MD Mucus Strands 1+ Normal [facility] Comment on above: Performed By: #### Ashley CELESTE, UAMIC #### [address] [address] [employer]: Sarath Olivera MD Urine RBC's 0 TO 2 Normal 0-2 [facility] Comment on above: Performed By: #### Ashley CELESTE, UAMIC #### [facility] [address] [place] [address] [employer]: Sarath Olivera MD Urine WBC's 20 TO 50 Normal 0-5 [facility] Comment on above: Performed By: #### Ashley AU, UAMIC #### [address] [address] [employer]: Sarath Olivera MD Blood, Urine MODERATE Abnormal NEG [facility] Comment on above: Performed By: #### Ashley AU, UAMIC #### [facility] [address] [place] [address] [employer]cher [employer]: Sarath Olivera MD Clarity (U) Turbid Abnormal CLEAR [facility] Comment on above: Performed By: #### Ashley AU, UAMIC #### [facility] [address] [place] [address] [employer]: Sarath Olivera MD Color (U) Dark Yellow Abnormal YEL [facility] Comment on above: Performed By: #### Ashley AU, UAMIC #### [address] [address] [employer]: Sarath Olivera MD Glucose Ql (U) TRACE Abnormal NEG [facility] Comment on above: Performed By: #### Ashley AU, UAMIC #### [address] [address] [employer]: Sarath Olivera MD Ketones Ql (U) Negative Normal NEG [facility] Comment on above: Performed By: #### Ashley AU, UAMIC #### [address] [address] [employer]: Sarath Olivera MD Leukocyte esterase Test strip Ql (U) TRACE Abnormal NEG [facility] Comment on above: Performed By: #### Ashley CELESTE, UAMIC #### [address] [address] [employer]: Sarath Olivera MD Nitrite,Ur Negative Normal NEG [facility] Comment on above: Performed By: #### Ashley CELESTE, UAMIC #### [address] [address] [employer]: Sarath Olivera MD PH,Ur 5.0 Normal 5.0-8.0 [facility] Comment on above: Performed By: #### Ashley CELESTE, UAMIC #### [address] [address] [employer]: Sarath Olivera MD Protein Ql (U) 2+ mg/dL Abnormal NEG [facility] Comment on above: Performed By: #### Ashley AU, UAMIC #### [address] [address] [employer]: Sarath Olivera MD Spec. [place],Ur 1.022 Normal 1.005-1.030 [facility] [place] Comment on above: Performed By: #### D AU, UAMIC #### [facility] [address] [place] [address] [employer]: Sarath Olivera MD Urobilinogen,Ur Normal Normal 0.0-1.0 [facility] Comment on above: Performed By: #### D AU, UAMIC #### [facility] [address] [place] [address] [employer]: Sarath Olivera MD XR ELBOW LEFT (MIN [...] Deon Webb MD 01/05/24 Final result Normal [facility] XR FEMUR LEFT (MIN 2 VIEWS)o [...] Deon Webb MD 01/05/24 Final result Normal [facility] XR FEMUR RIGHT (MIN 2 VIEWS) [...] Deon Webb MD 01/05/24 Final result Normal [facility] XR FEMUR RIGHT (MIN 2 VIEWS) [...] Deon Webb MD 01/05/24 Final result Normal [facility] XR KNEE RIGHT (1-2 VIEWS)on 01-05-2024 [...] Deon Webb MD 01/05/24 Final result Normal [facility] XR KNEE RIGHT (3 VIEWS)on XR [...] Deon Webb MD 01/05/24 Final result Normal [facility] XR SHOULDER LEFT (MIN 2 VIEW [...] Deon Webb MD 01/05/24 Final result Normal [facility] CBC AUTO DIFFon 12-10-2022 BASO # 0.0 103/ul Normal 0.0-0.1 [facility] Comment on above: Performed By: #### C BC ####[facility] [address] [place] [id number]. Sofiya Lozano Basophils/100 WBC (Bld) 0.4 % Normal 0.2-2.0 [facility] Comment on above: Performed By: #### C BC ####[facility] [address] [place] [id number]. Yilan Lozano EO # 0.0 103/ul Normal 0.0-0.7 [facility] Comment on above: Performed By: #### C BC ####[facility] [address] [place] [phone]. Yilan Lozano Eosinophils/100 WBC (Bld) 0.8 % Critically low 0.9-7.0 [facility] Comment on above: Performed By: #### C BC ####[facility] [address] [place] [address]Dr. Sofiya Lozano Erythrocyte distribution width (RBC) [Ratio] 13.6 % Normal 11.0-15.0 [facility] Comment on above: Performed By: #### C BC ####[facility] [address] [place], [place] [address]Dr. Sofiya Lozano Hematocrit (Bld) [Volume fraction] 41.0 % Normal 36.0-48.0 [facility] Comment on above: Performed By: #### C BC ####[facility] [address] [place], [place] [address]Dr. Sofiya Lozano Hemoglobin (Bld) [Mass/Vol] 13.0 g/dL Normal 12.0-16.0 [facility] Comment on above: Performed By: #### C BC ####[facility] [address] [place], [place] [address]Dr. Sofiya Lozano IG # 0.00 10e3/ul Normal 0.00-0.03 [facility] Comment on above: Performed By: #### C BC ####[facility] [address] [place], [place] [address]Dr. Sofiya Lozano IG % 0.0 % Normal 0.0-0.5 [facility] Comment on above: Performed By: #### C BC ####[facility] [address] [place], [place] [address]Dr. Sofiya Lozano LYMPH # 1.5 103/ul Normal 1.2-3.8 [facility] Comment on above: Performed By: #### C BC ####[facility] [address] [place], [place] [address]Dr. Sofiya Lozano Lymphocytes/100 WBC (Bld) 27.9 % Normal 20.5-60.0 [facility] Comment on above: Performed By: #### C BC ####[facility] [address] [place], [place] [address]Dr. Sofiya Lozano MANUAL DIFF REQ NO Normal [facility] Comment on above: Performed By: #### C BC ####[facility] [address] [place] [phone]. Sofiya Lozano MCH (RBC) [Entitic mass] 30.0 pg Normal 26.7-34.0 [facility] Comment on above: Performed By: #### C BC ####[facility] [address] [place] [phone]. Sofiya Lozano MCHC (RBC) [Mass/Vol] 31.7 g/dL Normal 29.9-35.2 [facility] Comment on above: Performed By: #### C BC ####[facility] [address] [place] [phone]. Sofiya Blake MCV (RBC) [Entitic vol] 94.5 fL Normal 81.0-99.0 [facility] Comment on above: Performed By: #### C BC ####[facility] [address] [place], [place] [address]Dr. Sofiya Lozano MONO # 0.5 103/ul Normal 0.3-0.8 [facility] Comment on above: Performed By: #### C BC ####[facility] [address] [place], [place] [address]Dr. Landyjonathan Lozano Monocytes/100 WBC (Bld) 8.6 % Normal 1.7-12.0 [facility] Comment on above: Performed By: #### C BC ####[facility] [address] [place], [place] [address]Dr. Landyjonathan Lozano NEUT # 3.3 103/ul Normal 1.4-6.5 [facility] Comment on above: Performed By: #### C BC ####[facility] [address] [place], [place] [address]Dr. Sofiya Lozano Neutrophils/100 WBC (Bld) 62.3 % Normal 43.0-75.0 [facility] Comment on above: Performed By: #### C BC ####[facility] [address] [place], [place] [address]Dr. Sofiya Lozano Platelet mean volume (Bld) [Entitic vol] 11.9 fL Normal 9.5-13.5 [facility] Comment on above: Performed By: #### C BC ####[facility] [address] [place], [place] [address]Di. Sofiya Lozano PLT 166 103/ul Normal 150-450 [facility] Comment on above: Performed By: #### C BC ####[facility] [address] [place], [place] [address]Ed. Sofiya Lozano RBC 4.34 106/ul Normal 4.20-5.40 [facility] Comment on above: Performed By: #### C BC ####[facility] [address] [place], [place] [address]Qy. Sofiya Lozano WBC 5.2 103/ul Normal 4.0-11.0 [facility] Comment on above: Performed By: #### C BC ####[facility] [address] [place], [place] [address]Cn. Landyjonathan Blake FREE THYROXINE INDEX T7on FTI 2.50 Normal 1.30-4.50 [facility] Comment on above: Performed By: #### C MP, TSH, LIPID, T7 ####[facility] [address] [place], [place] [address]Om. Sofiya Blake T3U 32.0 % Normal 30.0-39.0 [facility] Comment on above: Performed By: #### C MP, TSH, LIPID, T7 ####[facility] [address] [place], [place] [address]Ca. Sofiya Blake T4 [Mass/Vol] 7.80 ug/dL Normal 4.80-13.90 [facility] Comment on above: Performed By: #### C MP, TSH, LIPID, T7 ####[facility] [address] [place], [place] [address]Aw. Sofiya Blake GLYCOHEMOGLOBIN A1Con 2022 ADA RECOMMENDATION SEE BELOW Normal [facility] Comment on above: Result Comment: ADA RECOMMENDED LIMIT 4.0 - 6.0 ADA THERAPEUTIC TARGET < 7.0 ACTION SUGGESTED > 7.0 Performed By: #### A 1C #### [facility] [address] [place], [place] [address] Dr. Sofiya Lozano Glucose [Mass/Vol] 117 mg/dL Normal [facility] Comment on above: Performed By: #### A 1C #### [facility] [address] [place] [address] [address] Sofiya Lozano HbA1c (Bld) [Mass fraction] 5.7 % Normal 4.5-6.2 [facility] Comment on above: Performed By: #### A 1C #### [facility] [address] [place] [address] [address] Sofiya Lozano LIPID PROFILEon 12-10-2022 CHOL-HDL RATIO NORM SEE BELOW Normal [facility] Comment on above: Result Comment: 3.3 - 4.4 LOW RISK 4.4 - 7.1 AVERAGE RISK 7.1 - 11.0 MODERATE RISK >11.0 HIGH RISK Performed By: #### C MP, TSH, LIPID, T7 ####[facility] [address] [place] [address]Dr. Sofiya Lozano Cholesterol [Mass/Vol] 155 mg/dL Normal <=200 [facility] Comment on above: Performed By: #### C MP, TSH, LIPID, T7 ####[facility] [address] [place] [address]DrSandi Lozano Cholesterol in HDL [Mass/Vol] 61 mg/dL Critically high 40-60 [facility] Comment on above: Performed By: #### C MP, TSH, LIPID, T7 ####[facility] [address] [place] [phone]. Sofiya Lozano Cholesterol in LDL [Mass/Vol] 75.6 mg/dL Normal [facility] Comment on above: Performed By: #### C MP, TSH, LIPID, T7 ####[facility] [address] [place] [phone] Lozano Cholesterol.total/Cho lesterol in HDL [Mass ratio] 2.5 {ratio} Normal [facility] Comment on above: Performed By: #### C MP, TSH, LIPID, T7 ####[facility] [address] [place] [phone]. Sofiya Lozano HDL NORMAL > or = 60 mg/dl - LO W CARDIOVASCULAR RISK <40 mg/dl - HIGH CARDIOVASCULAR RISK Normal [facility] Comment on above: Performed By: #### C MP, TSH, LIPID, T7 ####[facility] [address] [place] [address]Dr. Sofiya Lozano LDL CALC NORMAL SEE BELOW Normal [facility] Comment on above: Result Comment: <100 mg/dl OPTIMAL 100 - 129 mg/dl NEAR OR ABOVE OPTIMAL 130 - 159 mg/dl BORDERLINE HIGH 160 - 189 mg/dl HIGH >190 mg/dl VERY HIGH Performed By: #### C MP, TSH, LIPID, T7 ####[facility] [address] [place] [address]Dr. Sofiya Lozano Triglyceride [Mass/Vol] 92 mg/dL Normal <=150 [facility] Comment on above: Performed By: #### C MP, TSH, LIPID, T7 ####[facility] [address] [place] [address]Dr. Sofiya Lozano VLDL CALC 18.4 mg/dL Normal [facility] Comment on above: Performed By: #### C MP, TSH, LIPID, T7 ####[facility] [address] [place] [address]Dr. Sofiya Lozano PROF 14(COMP METB)on 023 Albumin [Mass/Vol] 3.4 g/dL Normal 3.4-5.0 [facility] Comment on above: Performed By: #### C MP, TSH, LIPID, T7 ####[facility] [address] [place] [address]Dr. Sofiya Lozano Albumin/Globulin [Mass ratio] 1.0 {ratio} Normal [facility] Comment on above: Performed By: #### C MP, TSH, LIPID, T7 ####[facility] [address] [place] [address]Dr. Sofiya Lozano ALP [Catalytic activity/Vol] 85 U/L Normal 46-116 [facility] Comment on above: Performed By: #### C MP, TSH, LIPID, T7 ####[facility] [address] [place] [address]Dr. Sofiya Lozano ALT [Catalytic activity/Vol] 21 U/L Normal 14-59 [facility] Comment on above: Performed By: #### C MP, TSH, LIPID, T7 ####[facility] [address] [place] [address]Dr. Sofiya Lozano Anion gap [Moles/Vol] 9.0 mmol/L Normal [facility] Comment on above: Performed By: #### C MP, TSH, LIPID, T7 ####[facility] [address] [place] [address]Dr. Sofiya Lozano AST [Catalytic activity/Vol] 18 U/L Normal 15-37 [facility] Comment on above: Performed By: #### C MP, TSH, LIPID, T7 ####[facility] [address] [place] [address]Dr. Sofiya Lozano Bilirubin [Mass/Vol] 0.4 mg/dL Normal 0.2-1.0 [facility] Comment on above: Performed By: #### C MP, TSH, LIPID, T7 ####[facility] [address] [place], [place] [address]Dr. Sofiya Lozano Calcium [Mass/Vol] 9.0 mg/dL Normal 8.5-10.1 [facility] Comment on above: Performed By: #### C MP, TSH, LIPID, T7 ####[facility] [address] [place] [address]Dr. Sofiya Lozano Chloride [Moles/Vol] 109 mmol/L Critically high 98-107 [facility] Comment on above: Performed By: #### C MP, TSH, LIPID, T7 ####[facility] [address] [place] [address]Dr. Sofiya Lozano CO2 [Moles/Vol] 31.0 mmol/L Normal 21.0-32.0 [facility] Comment on above: Performed By: #### C MP, TSH, LIPID, T7 ####[facility] [address] [place] [address]Dr. Sofiya Lozano Creatinine [Mass/Vol] 1.10 mg/dL Critically high 0.55-1.02 [facility] Comment on above: Performed By: #### C MP, TSH, LIPID, T7 ####[facility] [address] [place] [address]Dr. Sofiya Lozano EGFR-AF FRENCH 57 mL/min/1.73m2 Critically low >=60 [facility] Comment on above: Performed By: #### C MP, TSH, LIPID, T7 ####[facility] [address] [place] [address]Dr. Sofiya Lozano EGFR-NON AF FRENCH 47 mL/min/1.73m2 Critically low >=60 [facility] Comment on above: Performed By: #### C MP, TSH, LIPID, T7 ####[facility] [address] [place] [address]Dr. Sofiya Lozano Globulin (S) [Mass/Vol] 3.4 g/dL Normal [facility] Comment on above: Performed By: #### C MP, TSH, LIPID, T7 ####[facility] [address] [place] [address]Dr. Sofiya Lozano Glucose [Mass/Vol] 109 mg/dL Critically high 74-106 [facility] Comment on above: Performed By: #### C MP, TSH, LIPID, T7 ####[facility] [address] [place] [address]Dr. Sofiya Lozano Potassium [Moles/Vol] 4.0 mmol/L Normal 3.5-5.1 [facility] Comment on above: Performed By: #### C MP, TSH, LIPID, T7 ####[facility] [address] [place] [address]Dr. Sofiya Lozano Protein [Mass/Vol] 6.8 g/dL Normal 6.4-8.2 [facility] Comment on above: Performed By: #### C MP, TSH, LIPID, T7 ####[facility] [address] [place] [address]Dr. Sofiya Lozano Sodium [Moles/Vol] 145 mmol/L Normal 136-145 [facility] Comment on above: Performed By: #### C MP, TSH, LIPID, T7 ####[facility] [address] [place] [address]Dr. Sofiya Lozano Urea nitrogen [Mass/Vol] 21.0 mg/dL Critically high 7.0-18.0 [facility] Comment on above: Performed By: #### C MP, TSH, LIPID, T7 ####[facility] [address] [place] [address]Dr. Sofiya Lozano Urea nitrogen/Creatinine [Mass ratio] 19.1 mg/mg Normal [facility] Comment on above: Performed By: #### C MP, TSH, LIPID, T7 ####[facility] [address] [place] [address]DrSandi Lozano TSHon 12-10-2022 TSH 3.603 uIU/mL Normal 0.358-3.740 [facility] Comment on above: Performed By: #### C MP, TSH, LIPID, T7 ####[facility] [address] [place] [address]Dr. Sofiya Lozano CBC AUTO DIFFon 08-09-2022 BASO # 0.0 103/ul Normal 0.0-0.1 [facility] Comment on above: Performed By: #### C BC #### [facility] [address] [place] [address] Dr. Sofiya Lozano Basophils/100 WBC (Bld) 0.2 % Normal 0.2-2.0 [facility] Comment on above: Performed By: #### C BC #### [facility] [address] [place] [address] Dr. Sofiya Lozano EO # 0.0 103/ul Normal 0.0-0.7 [facility] Comment on above: Performed By: #### C BC #### [facility] [address] [place] [address] Dr. Sofiya Lozano Eosinophils/100 WBC (Bld) 0.8 % Critically low 0.9-7.0 [facility] Comment on above: Performed By: #### C BC #### [facility] [address] [address] [address] Sofiya Lozano Erythrocyte distribution width (RBC) [Ratio] 13.7 % Normal 11.0-15.0 [facility] Comment on above: Performed By: #### C BC #### [facility] [address] [place] [address] Dr. Sofiya Loazno Hematocrit (Bld) [Volume fraction] 39.0 % Normal 36.0-48.0 [facility] Comment on above: Performed By: #### C BC #### [facility] [address] [place] [address] Dr. Sofiya Lozano Hemoglobin (Bld) [Mass/Vol] 13.0 g/dL Normal 12.0-16.0 [facility] Comment on above: Performed By: #### C BC #### [facility] [address] [place] [address] Dr. Sofiya Lozano IG # 0.01 10e3/ul Normal 0.00-0.03 [facility] Comment on above: Performed By: #### C BC #### [facility] [address] [place] [address] Dr. Sofiya Lozano IG % 0.2 % Normal 0.0-0.5 [facility] Comment on above: Performed By: #### C BC #### [facility] [address] [place] [address] Dr. Sofiya Lozano LYMPH # 0.9 103/ul Critically low 1.2-3.8 [facility] Comment on above: Performed By: #### C BC #### [facility] [address] [place] [address] Dr. Sofiya Lozano Lymphocytes/100 WBC (Bld) 19.1 % Critically low 20.5-60.0 [facility] Comment on above: Performed By: #### C BC #### [facility] [address] [place] [address] Dr. Sofiya Lozano MANUAL DIFF REQ NO Normal [facility] Comment on above: Performed By: #### C BC #### [facility] [address] [place] [address] Dr. Sofiya Lozano MCH (RBC) [Entitic mass] 30.6 pg Normal 26.7-34.0 [facility] Comment on above: Performed By: #### C BC #### [facility] [address] [place] [address] Dr. Sofiya Lozano MCHC (RBC) [Mass/Vol] 33.3 g/dL Normal 29.9-35.2 [facility] Comment on above: Performed By: #### C BC #### [facility] [address] [place] [address] Dr. Sofiya Lozano MCV (RBC) [Entitic vol] 91.8 fL Normal 81.0-99.0 [facility] Comment on above: Performed By: #### C BC #### [facility] [address] [place] [address] Dr. Sofiya Lozano MONO # 0.5 103/ul Normal 0.3-0.8 [facility] Comment on above: Performed By: #### C BC #### [facility] [address] [place] [address] Dr. Sofiya Lozano Monocytes/100 WBC (Bld) 10.5 % Normal 1.7-12.0 [facility] Comment on above: Performed By: #### C BC #### [facility] [address] [place] [address] Dr. Sofiya Lozano NEUT # 3.4 103/ul Normal 1.4-6.5 [facility] Comment on above: Performed By: #### C BC #### [facility] [address] [place] [address] Dr. Sofiya Lzoano Neutrophils/100 WBC (Bld) 69.2 % Normal 43.0-75.0 [facility] Comment on above: Performed By: #### C BC #### [facility] [address] [place] [address] Dr. Sofiya Lozano Platelet mean volume (Bld) [Entitic vol] 11.7 fL Normal 9.5-13.5 [facility] Comment on above: Performed By: #### C BC #### [facility] [address] [place] [address] Dr. Sofiya Lozano PLT 158 103/ul Normal 150-450 [facility] Comment on above: Performed By: #### C BC #### [facility] [address] [place] [address] Dr. Sofiya Lozano RBC 4.25 106/ul Normal 4.20-5.40 [facility] Comment on above: Performed By: #### C BC #### [facility] [address] [place] [address] Dr. Sofiya Lozano WBC 4.9 103/ul Normal 4.0-11.0 [facility] Comment on above: Performed By: #### C BC #### [facility] [address] [place] [address] Dr. Sofiya Lozano PROF CHEM 8 (BAS METB)on Anion gap [Moles/Vol] 10.1 mmol/L Normal [facility] Comment on above: Performed By: #### B MP #### [facility] [address] [place] [address] Dr. Sofiya Lozano Calcium [Mass/Vol] 8.5 mg/dL Normal 8.5-10.1 [facility] Comment on above: Performed By: #### B MP #### [facility] [address] [place] [address] Dr. Sofiya Lozano Chloride [Moles/Vol] 102 mmol/L Normal 98-107 [facility] Comment on above: Performed By: #### B MP #### [facility] [address] [place] [address] Dr. Sofiya Lozano CO2 [Moles/Vol] 28.1 mmol/L Normal 21.0-32.0 [facility] Comment on above: Performed By: #### B MP #### [facility] [address] [place] [address] Dr. Sofiya Lozano Creatinine [Mass/Vol] 0.97 mg/dL Normal 0.55-1.02 [facility] Comment on above: Performed By: #### B MP #### [facility] [address] [place] [address] Dr. Sofiya Lozano EGFR-AF FRENCH >60 Normal >=60 [facility] Comment on above: Performed By: #### B MP #### [facility] [address] [address] [address] Sofiya Lozano EGFR-NON AF FRENCH 55 mL/min/1.73m2 Critically low >=60 [facility] Comment on above: Performed By: #### B MP #### [facility] [address] [place] [address] [address] Sofiya Lozano Glucose [Mass/Vol] 128 mg/dL Critically high 74-106 [facility] Comment on above: Performed By: #### B MP #### [facility] [address] [address] [address] Sofiya Lozano Potassium [Moles/Vol] 4.2 mmol/L Normal 3.5-5.1 [facility] Comment on above: Performed By: #### B MP #### [facility] [address] [address] [address] Sofiya Lozano Sodium [Moles/Vol] 136 mmol/L Normal 136-145 [facility] Comment on above: Performed By: #### B MP #### [facility] [address] [address] [address] Sofiya Lozano Urea nitrogen [Mass/Vol] 20.0 mg/dL Critically high 7.0-18.0 [facility] Comment on above: Performed By: #### B MP #### [facility] [address] [address] [address] Sofiya Lozano Urea nitrogen/Creatinine [Mass ratio] 20.6 mg/mg Normal [facility] Comment on above: Performed By: #### B MP #### [facility] [address] [address] [address] Sofiya Lozano PROTIMEon 08-09-2022 INR Coag (PPP) [Relative time] 2.00 {INR} Normal [facility] Comment on above: Performed By: #### P TT, PT #### [facility] [address] [address] [address] Sofiya Lozano INR GUIDELINES SEE BELOW Normal [facility] Comment on above: Result Comment: FIGUEROA RED INR: 2.0 - 3.0 CONDITIONS NOT LISTED BELOW 2.5 - 3.5 FOR PROSTHETIC HEART VALVE REPLACEMENT 2.5 - 3.5 RECURRENT THROMBOSIS Performed By: #### P TT, PT #### [facility] [address] [address] [address] Sofiya Lozano PT Coag (PPP) [Time] 20.6 s Critically high 9.0-11.6 [facility] Comment on above: Performed By: #### P TT, PT #### [facility] [address] [address] [address] Sofiya Lozano PTTon 08-09-2022 aPTT Coag (Bld) [Time] 38.5 s Critically high 22.3-36.2 [facility] Comment on above: Performed By: #### P TT, PT ####[facility] [address] [place] [address]Dr. Sofiya Lozano US VENOUS DOPPLER L Isabel [...] T #### [facility] [address] [address] [address] Sofiya Lozano INR GUIDELINES SEE BELOW Normal [facility] Comment on above: Result Comment: FIGUEROA RED INR: 2.0 - 3.0 CONDITIONS NOT LISTED BELOW 2.5 - 3.5 FOR PROSTHETIC HEART VALVE REPLACEMENT 2.5 - 3.5 RECURRENT THROMBOSIS Performed By: #### P T #### [facility] [address] [address] [address] Sofiya Lozano PT Coag (PPP) [Time] 27.9 s Critically high 9.0-11.6 [facility] Comment on above: Performed By: #### P T #### [facility] [address] [address] [address] Sofiya Lozano PROTIMEon 04-15-2022 INR Coag (PPP) [Relative time] 2.18 {INR} Normal [facility] Comment on above: Performed By: #### P T #### [facility] [address] [address] [address] Sofiya Lozano INR GUIDELINES SEE BELOW Normal [facility] Comment on above: Result Comment: FIGUEROA RED INR: 2.0 - 3.0 CONDITIONS NOT LISTED BELOW 2.5 - 3.5 FOR PROSTHETIC HEART VALVE REPLACEMENT 2.5 - 3.5 RECURRENT THROMBOSIS Performed By: #### P T #### [facility] [address] [address] [address] Sofiya Lozano PT Coag (PPP) [Time] 22.4 s Critically high 9.0-11.6 [facility] Comment on above: Performed By: #### P T #### [facility] [address] [address] [address] Sofiya Lozano VIT D 25-OH LABCORPon 2021 Vitamin D, 25-Hydroxy 23.7 ng/mL Critically low 30.0-100.0 [facility] Comment on above: Result Comment: Jailyn min D deficiency has been defined by the [place] of [employer] and an Endocrine Society practice guideline as a level of serum 25-OH vitamin D less than 20 ng/mL (1,2). The Endocrine Society went on to further define vitamin D insufficiency as a level between 21 and 29 ng/mL (2). 1. IOM ([place] of [employer]). 2010. Dietary reference intakes for calcium and D. [place]: The National Academies Press. 2. Negin MATSON, Francisco CUNNINGHAM, Summer FERNANDEZ, et al. Evaluation, treatment, and prevention of vitamin D deficiency: an Endocrine Society clinical practice guideline. JCEM. 2010; 96(7):1911-30. Performed By: #### V ITADLC #### [facility] [address] [address] [address] Sofiya Lozano VITAMIN B12on 03-01-2022 Cobalamin (Vitamin B12) [Mass/Vol] 258.0 pg/mL Normal 193.0-986.0 [facility] Comment on above: Performed By: #### V ITB12 #### [facility] [address] [address] [address] Sofiya Lozano PROTIMEon 12-24-2021 INR Coag (PPP) [Relative time] 1.79 {INR} Normal [facility] Comment on above: Performed By: #### P T #### [facility] [address] [address] [address] Sofiya Lozano INR GUIDELINES SEE BELOW Normal [facility] Comment on above: Result Comment: FIGUEROA RED INR: 2.0 - 3.0 CONDITIONS NOT LISTED BELOW 2.5 - 3.5 FOR PROSTHETIC HEART VALVE REPLACEMENT 2.5 - 3.5 RECURRENT THROMBOSIS Performed By: #### P T #### [facility] [address] [address] [address] Sofiya Lozano PT Coag (PPP) [Time] 18.6 s Critically high 9.0-11.6 [facility] Comment on above: Performed By: #### P T #### [facility] [address] [address] [address] Sofiya Lozano Encounters Encounter Date Encounter Type Care Provider Facility Start: 11-29-2024 End: 11-29-2024 ambulatory STEPHANY HARGROVE [facility] Start: 11-15-2024 End: 11-15-2024 ambulatory MARY GILMORE [facility] Start: 05-17-2024 End: 05-17-2024 ambulatory [facility] Start: 03-15-2024 End: 03-15-2024 ambulatory [facility] Start: 02-17-2024 End: 02-23-2024 Evaluation and management of inpatient [facility] Start: 02-09-2024 End: 02-09-2024 ambulatory FATMATA BELLAMY [facility] Start: 02-02-2024 End: 02-02-2024 ambulatory [facility] Start: 02-02-2024 End: 02-02-2024 Subsequent hospital visit by physician Fatmata Bellamy APRN - INFORMATION SYSTEMS SPECIALIST Work Phone: [facility] Start: 01-26-2024 End: 01-26-2024 ambulatory [facility] Start: 01-23-2024 End: 01-25-2024 ambulatory GER [facility] Start: 01-23-2024 End: 01-25-2024 Subsequent hospital visit by physician Dima [facility] Scan Room [facility] CT Scan Comment on above: SDH (subdural hemato ma) ([facility]) Start: 01-19-2024 End: 01-19-2024 ambulatory [facility] Start: 01-15-2024 End: 01-15-2024 ambulatory [facility] Start: 01-15-2024 End: 01-15-2024 Subsequent hospital visit by physician Fatmata Bellamy APRN - INFORMATION SYSTEMS SPECIALIST Work Phone: [facility] Start: 01-05-2024 End: 01-13-2024 Evaluation and management of inpatient FATMATA BELLAMY [facility] Start: 07-03-2023 End: 07-03-2023 ambulatory MOISES SANCHEZ [facility] Start: 12-14-2022 Encounter for genera [...] Clinician Start: 02-02-2024 Comprehensive metabo lic panel Tea Lawrence MD Work Phone: Start: 01-15-2024 Comprehensive metabo lic panel Tae Lawrence MD Work Phone: Plan of Treatment Date Care Activity Detail Author Start: 03-04-2024 Influenza vaccination Flu vaccine (# 1) [facility]TOINE [facility]N [facility] Start: 02-19-2024 End: 02-19-2024 Patient encounter procedure 02/19/2024 10:30 AM EDT Office Visit [facility] Neurosurgery [address] [place] [address] [place] [address] Celina Diaz, DO [address] [facility] [address] [place] [address] Follow up with Sylvia or Adelina in two weeks with CTH prior to appointment for SDH [facility] Comment on above: Follow up with Sylvia or Adelina in two weeks with CTH prior to appointment for SDH Start: 02-09-2024 End: 02-09-2024 Patient encounter procedure 02/09/2024 11:30 AM EDT Office Visit [facility] Orthopedics and Sports Medicine [address] [place] [address] [place] [address] Austin Zee, DO [address] [place], [place] [address] LEFT PROX HUMERUS/ RIGHT TIB COMING FORM [facility]. R/S w/Deisy due to Covid [phone] [facility] Comment on above: LEFT PROX HUMERUS/ R IGHT TIB COMING FORM [facility]. R/S w/Deisy due to Covid [phone] Start: 02-02-2024 End: 02-02-2024 Patient encounter procedure 02/02/2024 10:15 AM EDT Office Visit [facility] [address] [facility] [address] [place] [phone] Austin Zee, DO [address] [facility] [address] [place] [address] LEFT PROX HUMERUS/ RIGHT TIB COMING FORM [facility] Comment on above: LEFT PROX HUMERUS/ R IGHT TIB COMING FORM [facility] Start: 01-21-2024 End: 01-21-2024 Patient encounter procedure 01/21/2024 3:15 PM EDT Office Visit [facility] [address] [facility] 10 [place] [phone] Austin Zee, DO [address] [facility] 10 [place] [address] R fem IMN, closed tx left proximal humerus [facility] Comment on above: R fem IMN, closed tx left proximal humerus Start: 01-21-2024 End: 01-21-2024 Patient encounter procedure 01/21/2024 11:30 AM EDT Office Visit [facility] [address] [facility] [address], [address] [place] [phone] Sylvia Malone W, SENIOR SALES ASSOCIATE - INFORMATION SYSTEMS SPECIALIST [address] [facility] [address] [place], [place] [id number] Follow up with Sylvia or Adelina in two weeks with CTH prior to appointment for SDH [facility] Comment on above: Follow up with Sylvia or Adelina in two weeks with CTH prior to appointment for SDH Start: 08-04-2023 Annual Wellness Visi t (Medicare Advantage) Annual Wellness Visit (Medicare Advantage) [facility] Start: 04-04-2023 COVID-19 Vaccine ( season) COVID-19 Vaccine ( season) [facility] Start: 1999 Respiratory Syncytia l Virus (RSV) or age 60 yrs+ (1 - 1-dose 60+ series) Respiratory Syncytial Virus (RSV) or age 60 yrs+ (1 - 1-dose 60+ series) [facility] Start: 1994 Screening for osteoporosis DEXA (modify frequency per FRAX score) [facility] Start: 1958 DTaP/Tdap/Td vaccine (1 - Tdap) DTaP/Tdap/Td vaccine (1 - Tdap) [facility] Start: 1951 Depression Screen Depression Screen [facility] End: 01-23-2024 CT Head WO contrast [facility] Work Phone: Comment on above: 1 Occurrences starti ng 01/23/2024 until 01/23/2024 Payers Date Payer Category Payer Self-pay [id number] 1960 Unknown [id number] 1940 Unknown [id number] 2.16.84 [id number] 1940 Unknown [id number] 2.16.84 0.1.620252.3.579.2.593 1939 Unknown [id number] 2.16.84 0.1.281059.3.579.2.593 1939 Unknown [id number] 2.16.84 0.1.404817.3.579.2.593 1939 Unknown [id number] 2.16.84 0.1.488282.3.579.2.593 1939 Unknown [id number] 2.16.84 0.1.733816.3.579.2.593 1939 Unknown [id number] 2.16.84 0.1.717034.3.579.2.593 1939 Unknown [id number] 2.16.8 40.1.191148.3.579.2.173 1939 Unknown [id number] 2.16.8 40.1.290177.3.579.2.173 1939 Unknown [id number] 2.16.8 40.1.473487.3.579.2.173 1939 Unknown [id number] 2.16.8 40.1.089000.3.579.2.173 1939 Unknown [id number] 2.16.8 40.1.368075.3.579.2.173 1939 Unknown [id number] 2.16. 840.1.906666.3.579.2.175 1939 Unknown [id number] 2.16. 840.1.471535.3.579.2.175 1939 Unknown [id number] 2.16. 840.1.080791.3.579.2.175 1939 Unknown [id number] 2.16. 840.1.128995.3.579.2.175 1939 Unknown [id number] 2.16. 840.1.522556.3.579.2.175 1939 Unknown [id number] 2.16. 840.1.313117.3.579.2.175 1939 Unknown [id number] 2.16. 840.1.872488.3.579.2.175 Social History Date Type Detail Facility Start: 01-10-2024 Tobacco smoking stat [facility] Never smoked tobacco [facility] Start: 01-10-2024 Tobacco use and exposure Smokeless tobacco non-user [facility] Start: 01-05-2024 End: 01-10-2024 History of Social function [facility] Start: 01-05-2024 End: 01-10-2024 Tobacco use panel [facility] Physical abuse Denies [facility] Start: 1940 Sex Assigned At Not on file B ON [facility] Medical Equipment Procedure Code Equipment Code Equipment Origin al Text Equipment Identifier Dates Nail Im Fem 12x4 20 Mm Rt Greater Trochanteric Strl T2 Alpha - [id number] ()[id number], [id number] FDA Start: 01-06-2024 Screw Bne L90mm Dia6.5mm Canc Fem Ti Lag Rory Saad Partially - [id number] ()[id number] [id number], [id number] FDA Start: 01-06-2024 Screw Bne L90mm Dia6.5mm Canc Fem Ti Lag Rory Saad Partially - [id number] ()[id number] [id number], [id number] FDA Start: 01-06-[address] 5x37 5mm - [id number] ()[id number] [id number], [id number] FDA Start: 01-06-2024 Screw Bne L50mm Dia5mm Saad For T2 Alpha Nailing Sys - [id number] ()[id number] [id number], [id number] FDA Start: 01-06-2024 Screw Bne Lck 5x 45 Mm Adv Strl Alpha - [id number] Start: 01-06-2024 Clinical Note 03-01-2022 Note [...] (HCC) Subdural hemorrhage documented in this encounter [facility] Summary Purpose Family History No Family [...] Procedures CT HEAD WO CONTRAST Ger Guzman, SENIOR SALES ASSOCIATE - INFORMATION SYSTEMS SPECIALIST [address] [address] Referral ID Status Reason Start Date Expiration Date Visits Re quested Visits Authorized [id number] Closed 01/20/2024 04/18/2024 1 1 Additional Source Comments INFORMATION SOURCE (unrecogn ized section and content) DATE CREATED AUTHOR 12/15/2022 [facility] DATE CREATED AUTHOR AUTHOR'S ORGANIZ ATION 02/03/2024 [facility] DATE CREATED AUTHOR AUTHOR'S ORGANIZ ATION 12/02/2024 [facility] Teams (unrecognized sec tion and content) Airline Station Agent Relationship Specialty Start Date End Date Fatmata Bellamy APRN - INFORMATION SYSTEMS SPECIALIST [address] [place] [id number] PCP - General 01/06/24 Airline Station Agent Relationship Specialty Start Date End Date Fatmata BellamyKARISSA - MARLIN [address] [place] [address] [place] [address] PCP - General 01/06/24 Airline Station Agent Relationship Specialty Start Date End Date Fatmata BellamyKARISSA - INFORMATION SYSTEMS SPECIALIST [address] [facility] [place] [address] PCP - General 01/06/24 Reason for Visit (unrecogniz ed section and content) Specialty Diagnoses / Procedures Referred By Contac t Referred To Contact Radiology Diagnoses SDH (subdural hematoma) (HCC) Procedures CT HEAD WO CONTRAST Ger Guzman, KARISSA - MARLIN [address] [facility] [address] [place] [address] Referral ID Status Reason Start Date Expiration Date Visits Re quested Visits Authorized [id number] Closed 01/20/2024 04/18/2024 1 1 FOR RECORDS [...] BE BASED ON THE PRIMARY CLINICAL RECORDS. [facility] [employer] provides no warranty or guarantee of the accuracy or completeness of information in this document.
--- NOTE | 2025-01-05 01:58 | ED.BACK1 ---
HPI HPI - Back Pain/Injury General Chief Complaint: Back Pain/Injury Stated Complaint: SEVERE BACK PAIN Time Seen by Provider: 01/05/25 01:35 Source: patient Mode of arrival: Wheelchair Limitations: no limitations History of Present Illness HPI Narrative: This 84-year-old female who has been seen in this emergency department multiple times recently for right sided back pain with sciatica and also admitted due to intractable back pain presents for evaluation of ongoing right sided low back pain that radiates down to her right knee. She denies any recent falls but did have a fall in August. She has no new weakness or numbness. She has not had any loss of bowel or bladder control. She denies any chest pain or shortness of breath. She did recently have an MRI of the lumbar spine which showed a bilobed mass involving the right iliopsoas and posterior paraspinous musculature measuring at least 9.4 x 5.7 x 8.3 cm in greatest dimension. This abuts the lateral margin of the L3 vertebral body on the right also approximating the exiting right L3 nerve roots and the lateral margin of the right L3-L4 neural foramen. There was no definite tension into the spinal canal. There was also noted 2 mm of retrolisthesis of L2 upon L3 with 3 mm of anterolisthesis of L4 upon L5 with preservation of vertebral body heights. Disc desiccation and mild disc height loss at L2-L3 and L3-L4. There is disc desiccation and moderate to severe disc height loss at L5-S1. There is fatty endplate degenerative change at L5-S1. No epidural or paraspinous fluid collection was appreciated. The patient's states they were aware of the mass that was seen on the MRI. This has not been addressed formally or biopsied at this time. I did review the MRI at length with them. The patient was doing fairly well earlier in the day and around midnight started having increasing pain. Her gave her an Advil and gabapentin at that time without significant improvement. She is scheduled to see Dr Gutierrez and/or Dr Trevino on Friday. Related Data Home Medications ?Medication ?Instructions ?Recorded ?Confirmed simvastatin 10 mg tablet 10 mg PO QPM 01/05/24 01/03/25 warfarin 2.5 mg tablet 2.5 mg PO DAILY 01/05/24 01/03/25 alendronate 70 mg tablet 70 mg PO .weekly 12/13/24 01/03/25 diclofenac sodium 75 mg 75 mg PO BID PRN pain 12/13/24 01/03/25 tablet,delayed release diltiazem HCl 60 mg tablet 60 mg PO DAILY 12/13/24 01/03/25 metoprolol tartrate 25 mg tablet 12.5 mg PO BID 12/13/24 01/03/25 gabapentin 100 mg capsule 100 mg PO .QHS 12/22/24 01/03/25 cholecalciferol (vitamin D3) 50 50 mcg PO DAILY 12/26/24 01/03/25 mcg (2,000 unit) tablet hydrocodone 5 mg-acetaminophen 325 1 tab PO Q8H PRN pain 12/26/24 01/03/25 mg tablet ondansetron HCl 4 mg tablet 4 mg PO Q6H PRN nausea and vomiting 12/26/24 01/03/25 Previous Rx's ?Medication ?Instructions ?Recorded cefdinir 300 mg capsule 600 mg (2 x 300 mg) PO DAILY #14 12/29/24 caps furosemide 40 mg tablet 40 mg PO QD #30 tabs 12/29/24 gabapentin 300 mg capsule 300 mg PO QHS #30 caps 12/29/24 isosorbide mononitrate 30 mg 30 mg PO QD #30 tabs 12/29/24 tablet,extended release 24 hr levothyroxine 25 mcg tablet 25 mcg PO ACB #30 tabs 12/29/24 magnesium oxide 400 mg (241.3 mg 400 mg PO BID #60 tabs 12/29/24 magnesium) tablet pantoprazole 40 mg tablet,delayed 40 mg PO DAILY #30 tabs 12/29/24 release prednisone 10 mg tablet 30 mg (3 x 10 mg) PO DAILY #20 tabs 12/29/24 sacubitril 24 mg-valsartan 26 mg 1 tab PO BID #60 tabs 12/29/24 tablet (Entresto) tramadol 50 mg tablet 50 mg PO Q8H PRN Pain Scale 7-10 7 12/29/24 days #21 tabs Allergies Allergy/AdvReac Type Severity Reaction Status Date / Time Sulfa (Sulfonamide Allergy Unknown Verified 01/03/25 00:05 Antibiotics) Opioid HPI Opioid Management Most Recent Opioid Data: Last Pain Scale 10 Today, 01:48 Last Pain Assessment 12/29/24, 05:00 Last MAR Pain Assessment 01/03/25, 01:14 Last ORT Total Score 0 12/26/24, 09:25 Last ORT Risk Category Low Risk 12/26/24, 09:25 Review of Systems ROS Status of ROS 10 or more systems reviewed and unremarkable except as noted in history and below [facility] Medical History (Updated 01/05/25 @ 04:46 by Selam Reno MD) Acute diastolic heart failure ?I50.31 - Acute diastolic (congestive) heart failure (ICD-10) Hypomagnesemia ?E83.42 - Hypomagnesemia (ICD-10) Lactic acidosis ?E87.20 - Acidosis, unspecified (ICD-10) Sepsis ?A41.9 - Sepsis, unspecified organism (ICD-10) Acute right-sided back pain with sciatica ?M54.41 - Lumbago with sciatica, right side (ICD-10) Intractable low back pain ?M54.59 - Other low back pain (ICD-10) Right lumbar radiculopathy ?M54.16 - Radiculopathy, lumbar region (ICD-10) History of CVA (cerebrovascular accident) ?Z86.73 - Personal history of transient ischemic attack (TIA), and cerebral infarction without residual deficits (ICD-10) High cholesterol ?E78.00 - Pure hypercholesterolemia, unspecified (ICD-10) Atrial fibrillation ?I48.91 - Unspecified atrial fibrillation (ICD-10) Hypertension ?I10 - Essential (primary) hypertension (ICD-10) Surgical History (Updated 12/26/24 @ 09:21 by Alta Culp RN) 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.612 - Presence of left artificial shoulder joint (ICD-10) History of hysterectomy ?Z90.710 - Acquired absence of both cervix and uterus (ICD-10) Family History (Updated 12/26/24 @ 09:22 by Alta Culp RN) Father Family history of myocardial infarction Social History (Updated 12/26/24 @ 09:23 by Alta Culp RN) Within the past year, how often did you have a drink containing alcohol: 2-4 times a month Smoking status: Former smoker Non-prescribed substance use: denies use Highest level of school completed/degree received: GED or equivalent Little interest or pleasure in doing things: not at all Feeling down, depressed, or hopeless: not at all Exam Narrative Exam Narrative: Vital signs and Nursing Notes reviewed: Patient is afebrile with a normal pulse, blood pressure is mildly elevated 137/89, she is not hypoxic with pulse ox of 98% on room air General: Awake, alert, oriented, comfortable appearing elderly female, she is lying on her left side to relieve pressure from her right buttock area, no respiratory distress HEENT: Normocephalic atraumatic, mucous membranes are moist and pink, eyes are clear, normal conjunctiva, vision is grossly intact Chest: Lungs are clear to auscultation with good air entry, there is no wheezing rhonchi or rales appreciated no accessory muscle use, patient is speaking in complete sentences-no chest wall tenderness to palpation CVS: Regular rate and rhythm S1-S2, no murmurs rubs or gallops, pulses are brisk and equal bilaterally ABD: Soft, nondistended, nontender, no rebound guarding or rigidity, bowel sounds are normal, no pulsatile masses appreciated Extremities: Moving all extremities, healed incision over the right greater trochanteric area of the right hip. There is tenderness in the right buttock and over the psoas muscle. I do not appreciate the mass that was seen on MRI. Patient is able to flex and extend her knee without difficulty. 1-2+ pitting edema is present in both lower extremities without calf swelling or tenderness noted. Skin: Normal in appearance without rash,pallor, petechiae or purpura Neuro: No focal deficits, physical ther strength is intact, there is no saddle anesthesia. Lower extremity push and pull is normal. DTRs were generally decreased but equal bilaterally Constitutional Vital Signs, click to edit/add: Last Vital Signs Temp 97.7 F 01/05/25 01:40 Pulse 86 01/05/25 01:40 Resp 18 01/05/25 01:40 BP 137/89 01/05/25 01:40 Pulse Ox 98 01/05/25 01:40 O2 Del Method Room Air 01/05/25 01:40 Course Vital Signs Vital signs: Vital Signs Temperature 97.7 F 01/05/25 01:40 Pulse Rate 86 01/05/25 01:40 Respiratory Rate 18 01/05/25 01:40 Blood Pressure 137/89 01/05/25 01:40 Pulse Oximetry 98 01/05/25 01:40 Oxygen Delivery Method Room Air 01/05/25 01:40 Temperature 97.7 F 01/05/25 01:40 Pulse Rate 86 01/05/25 01:40 Respiratory Rate 18 01/05/25 01:40 Blood Pressure 137/89 01/05/25 01:40 Pulse Oximetry 98 01/05/25 01:40 Oxygen Delivery Method Room Air 01/05/25 01:40 MDM - Back Pain/Injury MDM Narrative Medical decision making narrative: This 84-year-old female with a history of right sided sciatica and chronic back pain as well as cardiac disease who is on Coumadin presents for evaluation of ongoing right sided low back pain that radiates down the right leg. She did recently have an MRI that showed a large bilobed mass involving the right iliopsoas and posterior paraspinous musculature measuring at least 9.4 x 5.7 x 8.3 cm in greatest dimension. This was noted to abut the lateral margin of the L3 vertebral body and the right also approximating the exiting right L3 nerve roots and the lateral margin of the right L3 and L4 neural foramen. I discussed the results of the MRI with the patient and her . The patient did have a fall in August and may have sustained a hematoma in this area at that time as she states she had a large lump there that was bruised and tender. She has not had any recent falls. Her neuro exam is normal. She has had some opiate related constipation but states she is having bowel movements now and is on stool softeners. She was recently admitted at this facility for intractable back pain. She was discharged home with a prescription for tramadol and gabapentin. Her states that when her pain started around midnight he gave her gabapentin and Advil. Apparently she is out of the tramadol. The is very demanding that she be medicated for her pain. She has an appointment with outpatient orthopedics on Friday. I did review her [facility] report. She does have prescription pain medication prescribed on 12/14/2024 12/22/2024 and 12/29/2024 most recently tramadol and gabapentin. She was medicated emergency department with a dose of morphine without significant improvement in her pain and was given an oral Percocet. Her states she isnt any better despite these medications and he cant take her home like this I explained to him that giving her stronger narcotic medications puts her at a risk of falls especially at night when she has to get up and use the bathroom. The patient states that she is not staying in the hospital. I will give her a short course of take-home medications and refill a short course of narcotic analgesics for her until she can be seen later this week by orthopedics. I do suspect that the mass in her iliopsoas and paraspinal muscles may be causing compression on the nerve roots in her back in addition to her chronic back pain. In addition to seeing orthopedics later this week she is supposed to be seen by pain management. She was given IM Valium to help with muscle spasm/relaxation and fell asleep. Upon my walking back into the room she was sleeping and I awakened her although her states she has not had any relief of her pain. I again explained that I feel like the mass in her iliopsoas and paraspinal muscles are causing her pain and she needs a formal workup probably including a biopsy of this area to further evaluate what the mass is and whether or not it can be treated. I explained that we do not have anybody at this facility at this time to perform a biopsy or further management of the large mass that she has. The patient's states they are not going to [place] it is too far and accuses this [facility] of not being a hospital anymore. I explained to him we do not have neurosurgery or anybody to biopsy this mass or treated accordingly after biopsy results. At this point the patient refuses transfer because she does not want to miss her appointments with Dr Gutierrez and Belinda later this week. I left the room so the patient and her could discuss her options, which again I suggested transfer as the most reasonable option to get a diagnosis of the mass seen on MRI. Her came out several minutes later stating that they were going home. Discharge Plan Discharge Chief Complaint: Back Pain/Injury Clinical Impression: Chronic low back pain, Mass of iliopsoas muscle group, Lumbar radiculopathy Patient Disposition: Home, Self-Care Time of Disposition Decision: 03:29 Condition: Fair Prescriptions / Home Meds: No Action alendronate 70 mg tablet 70 mg PO .weekly Rx Instructions: mondays diclofenac sodium 75 mg tablet,delayed release (DR/EC) 75 mg PO BID PRN (Reason: pain) diltiazem HCl 60 mg tablet 60 mg PO DAILY metoprolol tartrate 25 mg tablet 12.5 mg PO BID gabapentin 100 mg capsule 100 mg PO .QHS hydrocodone-acetaminophen 5-325 mg tablet 1 tab PO Q8H PRN (Reason: pain) ondansetron HCl 4 mg tablet 4 mg PO Q6H PRN (Reason: nausea and vomiting) cholecalciferol (vitamin D3) 50 mcg (2,000 unit) tablet 50 mcg PO DAILY cefdinir 300 mg capsule 600 mg PO DAILY Qty: 14 0RF furosemide 40 mg Tablet 40 mg PO QD Qty: 30 11RF isosorbide mononitrate 30 mg Tablet Extended Release 24 Hr 30 mg PO QD Qty: 30 11RF magnesium oxide 400 mg (241.3 mg magnesium) Tablet 400 mg PO BID Qty: 60 11RF gabapentin 300 mg Capsule 300 mg PO QHS Qty: 30 11RF Rx Instructions: Plus the 100 mg in the am tramadol 50 mg Tablet 50 mg PO Q8H PRN (Reason: Pain Scale 7-10) 7 Days Qty: 21 0RF levothyroxine 25 mcg Tablet 25 mcg PO ACB Qty: 30 11RF pantoprazole 40 mg Tablet,Delayed Release (Dr/Ec) 40 mg PO DAILY Qty: 30 11RF Entresto 24-26 mg Tablet 1 tab PO BID Qty: 60 11RF prednisone 10 mg tablet 30 mg PO DAILY Qty: 20 0RF Rx Instructions: 3/day for 3 days, 2/day for 3 days, 1/day for 3 days, 1/2 /day for 4 days simvastatin 10 mg tablet 10 mg PO QPM warfarin 2.5 mg tablet 2.5 mg PO DAILY Patient Comments: FRIDAY THRU FRIDAY Print Language: Rwandan Instructions: Pain Management in Older Adults (DC), Chronic Pain (ED), Narcotic Safety (ED) Referrals: LIGIA BELLAMY [Primary Care Provider, Family Practice] - 1 week
[2025-01-05] MEDS: ONDANSETRON 4 MG RAPDIS TABLET SL (02:04)
[2025-01-05] MEDS: MORPHINE SULFATE 4 MG/ML VIAL IM (02:04)
[2025-01-05] MEDS: OXYCODONE HCL/ACETAMINOPHEN 5MG/325MG 1 TAB PO (02:52)
[2025-01-05] MEDS: KETOROLAC TROMETHAMINE 30 MG/ML VIAL 15 MG IM (04:08)
[2025-01-05] MEDS: DIAZEPAM 10 MG/2 ML SYRINGE 5 MG IM (04:09)
[2025-01-05] MEDS: HYDROCODONE/ACET 5-325 MG TABLET PO (04:53)
[2025-01-05 05:06] VITALS: BP 134/73; PULSE 71; O2SAT 96
== END 2025-01-05 05:08 | disposition home or self-care (01) ==
PROVIDERS: Emergency Provider Emergency Medicine; PCP Nurse Practitioner Family
DX: M54.16 Radiculopathy, lumbar region (principal); M54.50 Low back pain, unspecified; Z91.81 History of falling; Z96.612 Presence of left artificial shoulder joint; Z90.710 Acquired absence of both cervix and uterus; Z87.891 Personal history of nicotine dependence; Z79.01 Long term (current) use of anticoagulants; R22.2 Localized swelling, mass and lump, trunk; G89.29 Other chronic pain
CPT/HCPCS: 96372; 99284; J1885; J2270; J3360; Q0162

== ENCOUNTER 2025-01-11 02:29 | Emergency (ER) | payer MEDICARE, SELFPAY ==
--- OUTSIDE RECORDS SUMMARY | 2024-12-29 15:39 | XMS_ITS ---
Author Organization [facility] [place] Address [address] [place] [address] Care Team Providers Care Journalists And Other Writers Name Role Phone Denilson Rayo Primary Care Provider REASON FOR VISIT needs f/u appt Encounters Encounter Location Date Provider Diagnosis [facility] [address] [place] [address] 12/29/2024 Denilson Rayo Plan Of Treatment No Information Progress Notes * Margaret JAIN SDOB:1940 (84 yo F)Acc No.[id number]:12/29/2024 Patient: Margaret SCHMITT :1940 A ge:84 Y S ex:Female Address:[address] [place] [id number] * true * Date: Generated for Printi ng/Faxing/eTransmitting on: 0 01/11/2025 02:40 AM EDT
--- OUTSIDE RECORDS SUMMARY | 2025-01-04 07:00 | XMS_ITS ---
Author Organization [facility] [place] Address [address] [place] [address] Care Team Providers Care Medical Appointment Clerk Name Role Phone Denilson Rayo Primary Care Provider Allergies Allergen (clinical drug ingredient) Drug/Non Drug Allergy documented on EMR Reaction Allergy Type Onset Date Status Substance with sulfonamide structure and antibacterial mechanism of action (substance) Sulfa Antibiotics panic Drug Allergy Active REASON FOR VISIT TCM D/C [facility] 12/29 Back Pain- was back in ER yesterday due to the pain- has appointment with on Friday, Pain goes from middle of spine and down the right side to her knee, Has been taking diclofenac, gabapentin and hydrocodone for the pain, Discuss warfarin dosing- she was released from [facility] with Warfarin 2.5mg - just had INR done 12/31- patient said has not been taking her med box normally though, Discuss prednisone dosing- has two different scripts from admit and ER visits Medications Medication SIG (Take, Route, Frequency, Duration) Notes Start Date End Date Status HYDROcodone-Acetaminophen 5-325 MG 1/2 tablet as needed Orally every 4-6 hrs 01/04/2025 Active Levothyroxine Sodium 25 MCG 1 tablet in the morning on an empty stomach Orally Once a day 01/04/2025 Active Isosorbide Mononitrate ER 30 MG 1 tablet in the morning Orally Once a day 01/04/2025 Active Magnesium Oxide 400 MG 1 tablet with leida d Orally twice daily 01/04/2025 Active Aspirin 81 81 MG 1 tablet Orally Once a day Active dilTIAZem HCl 60 MG Take 1 tablet by once daily for 30 days for 30 Active Furosemide 40 MG 1 tablet Orally Once a day 01/04/2025 Active Entresto 24-26 MG 1 tablet Orally Twic e a day 01/04/2025 Active Gabapentin 300 MG 1 capsue Orally bid for 30 days 12/14/2024 Active Alendronate Sodium 70 MG Take 1 tablet b y mouth once a week for 28 Active Wheelchair ht 5'8 wt 180 18x16 seat size 04/02/2024 Active Warfarin Sodium 1 MG 2 tablet Orally Sat and 1mg Friday for 90 days Active Wheelchair Cushion - as directed 04/02/2024 Active Pantoprazole Sodium 40 MG 1 tablet 1/2 t o 1 hour before morning meal Orally Once a day 01/04/2025 Active Simvastatin 10 MG Take 1 tablet by clare th once daily for 90 Active predniSONE 10 MG as directed Orally 5tab/3days; 4tab/3days: 3tab/3days:2tab/3days; 1tab/3days: 1/2tab/3 days 01/04/2025 Active Vitamin D (Cholecalciferol) 50 MCG (1999) Take 1 capsule by mouth once daily for 30 Active Metoprolol Tartrate 25 MG 1/2 tablet with food Orally Twice a day for 90 days 08/05 tab Active Ondansetron 4 MG 1 tablet on the tong ue and allow to dissolve Orally Once a day 01/04/2025 Active Social History Tobacco Use: Social History Observation Description Date Details (start date - stop date) Never Smoker NA - NA Tobacco Use/Smoking Question Answer Notes Patient is a nonsmoker Problems Problem Type SNOMED Code ICD Code Onset Dates Problem Status W/U Status Risk Notes Problem Lumbar radiculopathy (M54.16) Active confirmed Problem Chronic kidney disease stage 3B (disorder) ([id number]) Chronic kidney disease, stage 3b (N18.32) Active confirmed Vital Signs Weight 166.6 lbs 01/04/2025 Height 68 in 01/04/2025 Blood pressure systolic 112 mm Hg 01/05/20 25 Blood pressure diastolic 70 mm Hg 025 BMI 25.33 kg/m2 01/04/2025 Encounters Encounter Location Date Provider Diagnosis [facility] [address] [place] [address] 01/04/2025 Denilson Hoy Subdural hemorrhage I62.00 ; Chronic kidney disease, stage 3b N18.32 and Lumbar radiculopathy M54.16 Assessments Encounter Date Diagnosis (ICD Code) Assessment Notes Treatment Notes Treatment Clinical Notes Section Notes 01/04/2025 Subdural hemorrhage (ICD-10 - I62.00) 01/04/2025 Chronic kidney disease, stage 3b (ICD-10 - N18.32) 01/04/2025 Lumbar radiculopathy (ICD-10 - M54.16) Plan Of Treatment Medication Medication Name Sig Start Date Stop Date Notes Gabapentin 300 MG 1 capsue Orally bid for 30 days 12/15/19 25 Progress Notes * Margaret JAIN SDOB:1940 (84 yo F)Acc No.[id number]:01/04/2025 Progress Note Patient: Margaret SCHMITT Provider: Ashley Rayo ([facility])MD :1940 A ge:84 Y S ex:Female Date:01/04/2025 Address:[address] [place] [address] Check In:10:25 AM ESTCheck O ut:11:31 AM EST Subjective: * Chief Complaints: * T CM D/C [facility] 12/29 Back Pain- was back in ER yesterday due to the pain- has appointment with on FridayPain goes from middle of spine and down the right side to her kneeHas been taking diclofenac, gabapentin and hydrocodone for the painDiscuss warfarin dosing- she was released from [facility] with Warfarin 2.5mg - just had INR done 12/31- patient said has not been taking her med box normally thoughDiscuss prednisone dosing- has two different scripts from admit and ER visits * Active Problem List J11.89 Influenza due to uni dentified influenza virus with other manifestations Modified On:01/03/2023U Status:confirmed L98.9 Skin lesion Modified On:01/03/2023 Status:confirmed Z51.81 Medication monitorin g encounter Modified On:01/03/2023U Status:confirmed M79.606 Leg pain Modified On:01/03/2023U Status:confirmed M25.562 Knee pain, left Modified On:01/03/2023 Status:confirmed J02.9 Sore throat Modified On:01/03/2023 Status:confirmed E66.3 Overweight (BMI 25.0 -29.9) Modified On:01/03/2023 Status:confirmed M79.672 Left foot pain Modified On:01/03/2023 Status:confirmed Z00.00 Wellness examination Modified On:01/03/2023 Status:confirmed Z91.81 At risk for falls Modified On:01/03/2023 Status:confirmed R51.9 Headache, unspecifie d Modified On:01/03/2023 Status:confirmed I63.9 Stroke Modified On:01/03/2023 Status:confirmed J40 Bronchitis Modified On:01/03/2023 Status:confirmed J01.90 Acute sinusitis Modified On:01/03/2023 Status:confirmed G47.00 Insomnia, unspecifie d Modified On:12/09/2022 Status:confirmed R53.82 Chronic fatigue, uns pecified Modified On:12/09/2022 Status:confirmed E55.9 Vitamin D deficiency , unspecified Modified On:12/25/2022 Status:confirmed M51.36 Other intervertebral disc degeneration, lumbar region Modified On:12/25/2022 Status:confirmed M54.50 Low back pain, unspe cified Modified On:12/25/2022 Status:confirmed R60.0 Localized edema Modified On:12/25/2022 Status:confirmed I87.2 Venous insufficiency (chronic) (peripheral) Modified On:12/25/2022 Status:confirmed M25.551 Pain in right hip Modified On:05/02/2023 Status:confirmed I48.91 Unspecified atrial f ibrillation Modified On:10/17/2023 Status:confirmed Z79.899 Other alf (cur rent) drug therapy Modified On:12/25/2022 Status:confirmed K57.30 Diverticulosis of la rge intestine without perforation or abscess without bleeding Modified On:05/24/2023W/U Status:confirmed J30.2 Other seasonal aller gic rhinitis Modified On:05/02/2023 Status:confirmed 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, left shoulder Modified On:02/27/2024 Status:confirmed K59.00 Constipation, unspec ified Modified On:02/27/2024 Status:confirmed I10 Essential (primary) hypertension Modified On:02/27/2024 Status:confirmed 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 Modified On:03/15/2024 Status:confirmed S42.392K Other fracture of sh aft of left humerus, subsequent encounter for fracture with nonunion Modified On:03/15/2024 Status:confirmed E78.5 Hyperlipidemia Modified On:04/02/2024 Status:confirmed J31.0 Non-allergic rhiniti s Modified On:08/06/2024 Status:confirmed J30.9 Allergic rhinitis Modified On:10/04/2024 Status:confirmed I62.00 Subdural hemorrhage Modified On:12/01/2024 Status:confirmed 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 Modified On:12/02/2024 Status:confirmed M53.9 Sciatica associated with disorder of lumbar spine Modified On:12/07/2024 Status:confirmed 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 Modified On:12/07/2024 Status:confirmed M43.16 Spondylolisthesis at L4-L5 level Modified On:12/14/2024 Status:confirmed M43.16 Anterolisthesis of l umbar spine Modified On:12/14/2024 Status:confirmed M54.30 Sciatica Modified On:12/14/2024 Status:confirmed N18.32 Chronic kidney disea se, stage 3b Modified On:01/04/2025 Status:confirmed M54.16 Lumbar radiculopathy Modified On:01/04/2025 Status:confirmed * Medical History: * Surgical History: L eft Shoulder- repair Right leg with pin- post fall * Hospitalization/Major Diagno stic Procedure: F all ack pain- uncontrolled pain 12/2024 * Family History: F ather: 78 yrs. M other: 78 yrs. B rother(s): . S ister(s): alive. S on(s): alive. 2 brother(s) , 2 sister(s) . 3 son(s) - healthy. . * Social History: T obacco Use: T obacco Use/Smoking P atient is a n onsmoker * Medications: T akingAlendronate Sodium 70 MG Tablet Take 1 tablet by mouth once a week Aspirin 81(Aspirin) 81 MG Tablet Delayed Release 1 tablet Orally Once a day dilTIAZem HCl 60 MG Tablet Take 1 tablet by mouth once daily for 30 days Entresto(Sacubitril-Valsartan) 24-26 MG Tablet 1 tablet Orally Twice a day Furosemide 40 MG Tablet 1 tablet Orally Once a day Gabapentin 300 MG Capsule 1 capsule at bedtime Orally Once a day- 100mg in AM HYDROcodone-Acetaminophen 5-325 MG Tablet 1/2 tablet as needed Orally every 4-6 hrs Isosorbide Mononitrate ER 30 MG Tablet Extended Release 24 Hour 1 tablet in the morning Orally Once a day Levothyroxine Sodium 25 MCG Tablet 1 tablet in the morning on an empty stomach Orally Once a day Magnesium Oxide 400 MG Tablet 1 tablet with food Orally twice daily Metoprolol Tartrate 25 MG Tablet 1/2 tablet with food Orally Twice a day 1/2 tabOndansetron 4 MG Tablet Disintegrating 1 tablet on the tongue and allow to dissolve Orally Once a day Pantoprazole Sodium 40 MG Tablet Delayed Release 1 tablet 1/2 to 1 hour before morning meal Orally Once a day predniSONE 10 MG Tablet as directed Orally 5tab/3days; 4tab/3days: 3tab/3days:2tab/3days; 1tab/3days: 1/2tab/3 days Simvastatin 10 MG Tablet Take 1 tablet by mouth once daily Vitamin D (Cholecalciferol) 50 MCG (1999 UT) Capsule Take 1 capsule by mouth once daily Warfarin Sodium 1 MG Tablet 2 tablet Orally Friday and 1mg Friday Wheelchair ht 5'8 wt 180 18x16 seat size Wheelchair Cushion - Miscellaneous as directed Taking Alendronate Sodium 70 MG Tablet Take 1 tablet by mouth once a week Taking Aspirin 81(Aspirin) 81 MG Tablet Delayed Release 1 tablet Orally Once a day Taking dilTIAZem HCl 60 MG Tablet Take 1 tablet by mouth once daily for 30 days Taking Entresto(Sacubitril-Valsartan) 24-26 MG Tablet 1 tablet Orally Twice a day Taking Furosemide 40 MG Tablet 1 tablet Orally Once a day Taking Gabapentin 300 MG Capsule 1 capsule at bedtime Orally Once a day- 100mg in AM Taking HYDROcodone-Acetaminophen 5-325 MG Tablet 1/2 tablet as needed Orally every 4-6 hrs Taking Isosorbide Mononitrate ER 30 MG Tablet Extended Release 24 Hour 1 tablet in the morning Orally Once a day Taking Levothyroxine Sodium 25 MCG Tablet 1 tablet in the morning on an empty stomach Orally Once a day Taking Magnesium Oxide 400 MG Tablet 1 tablet with food Orally twice daily Taking Metoprolol Tartrate 25 MG Tablet 1/2 tablet with food Orally Twice a day 1/2 tabTaking Ondansetron 4 MG Tablet Disintegrating 1 tablet on the tongue and allow to dissolve Orally Once a day Taking Pantoprazole Sodium 40 MG Tablet Delayed Release 1 tablet 1/2 to 1 hour before morning meal Orally Once a day Taking predniSONE 10 MG Tablet as directed Orally 5tab/3days; 4tab/3days: 3tab/3days:2tab/3days; 1tab/3days: 1/2tab/3 days Taking Simvastatin 10 MG Tablet Take 1 tablet by mouth once daily Taking Vitamin D (Cholecalciferol) 50 MCG (1999) Capsule Take 1 capsule by mouth once daily Taking Warfarin Sodium 1 MG Tablet 2 tablet Orally Friday and 1mg Friday Taking Wheelchair ht 5'8 wt 180 18x16 seat size Taking Wheelchair Cushion - Miscellaneous as directed DiscontinuedAllergy (Cetirizine)(Cetirizine HCl) 10 MG Tablet 1 tablet Orally Once a day Diclofenac Sodium 75 MG Tablet Delayed Release 1 tablet as needed Orally Twice a day Fluticasone Propionate 50 MCG/ACT Suspension 1 spray in each nostril Nasally Twice a day Gabapentin 100 MG Capsule 1 capsule Orally every morning- 300mg at HS Ipratropium Christiana 0.03 % Solution 2 sprays in each nostril Nasally Twice a day , Notes to Pharmacist: Intranasal (0.03% solution): Two sprays (21 mcg/spray) in each nostril 2 times dailypredniSONE 20 MG Tablet 2 tablet Orally Once a day traMADol HCl 50 MG Tablet 1 tablet Orally every 8 hours as needed Warfarin Sodium 2.5 MG Tablet TAKE 1 TABLET BY MOUTH ONCE DAILY FRIDAY THRFriday Medication List reviewed and reconciled with the patientDiscontinued Allergy (Cetirizine)(Cetirizine HCl) 10 MG Tablet 1 tablet Orally Once a day Discontinued Diclofenac Sodium 75 MG Tablet Delayed Release 1 tablet as needed Orally Twice a day Discontinued Fluticasone Propionate 50 MCG/ACT Suspension 1 spray in each nostril Nasally Twice a day Discontinued Gabapentin 100 MG Capsule 1 capsule Orally every morning- 300mg at HS Discontinued Ipratropium Christiana 0.03 % Solution 2 sprays in each nostril Nasally Twice a day , Notes to Pharmacist: Intranasal (0.03% solution): Two sprays (21 mcg/spray) in each nostril 2 times dailyDiscontinued predniSONE 20 MG Tablet 2 tablet Orally Once a day Discontinued traMADol HCl 50 MG Tablet 1 tablet Orally every 8 hours as needed Discontinued Warfarin Sodium 2.5 MG Tablet TAKE 1 TABLET BY MOUTH ONCE DAILY Friday Medication List reviewed and reconciled with the patient * Allergies: S ulfa Antibiotics: panic - Allergyno[Allergies Verified] Objective: * Vitals: W t:166.6lbs, Ht: 68 in, BP:112/70mm Hg, BMI:25.33Index, Ht-cm: 172.72 cm, Wt-k.57 kg. Assessment: * Assessment: 1. S ubdural hemorrhage - I62.00 (Primary) 2 . C hronic kidney disease, stage 3b - N18.32 3 . L umbar radiculopathy - M54.16 Plan: * Treatment: * Procedure Codes: 9 [id number] TRANSITIONAL CARE MGMT SV * Preventive Medicine: Screenings/Counseling: B DE ACTION PLAN Above Normal BMI Follow-up D ietary management education, guidance, and counseling * * Sign off status: Completed Visit Status: C HK (Check Out) true * Provider: Ashley Rayo ([facility])MD Date: 01/04/2025 Generated for Rafati ng/Olamide/eTransmitting on: 01/11/2025 02:40 AM EDT
--- OUTSIDE RECORDS SUMMARY | 2025-01-06 11:15 | XMS_ITS ---
Author Organization [facility] Address [address] [place] [address] Care Team Providers Care Security Systems Technician Name Role Phone James Rayo Primary [facility] Provider [facility] Sandeep Rodriguez Unavailable [phone] Kranthi Alvarado Unavailable [phone] REASON FOR VISIT RIGHT L4-L5 TFESI Encounters Encounter Location Date Provider Diagnosis [facility]ural [address] [place] [address] 01/06/2025 Kranthi Alvarado Plan Of Treatment Next Appt Details Provider Name:Zhen Sosa, 02/18/2025 01:30:00 PM, [address], [place], [address], Progress Notes * CRISTOBALHIEU DUONGJA SDOB:1940 (84 yo F)Acc No.[id number]:01/06/2025 Patient: MARIA GUADALUPE SCHMITT Provider: Estevan Alvarado MD :1940 A ge:84 Y S ex:Female Date:01/06/2025 Address:[address] [place], [place] [id number] Pcp:James Rayo * Images: * Electronic signature of Kranthi Alvarado MD on 01/11/2025 at 02:41 AM EDT Sign off status: Pending * Provider: Estevan Alvarado MD Date: 0 01/06/2025 Generated for Printi ng/Faxing/eTransmitting on: 01/11/2025 02:41 AM EDT
--- OUTSIDE RECORDS SUMMARY | 2025-01-06 11:42 | XMS_ITS ---
Author Organization [facility] Address [facility] [place] [address] [address] Care Team Providers Care Power Distribution Engineer Name Role Phone Girma James Primary Care Provider [facility] Neisha Gutierrezuriah Unavailable [phone] Kranthi Alvarado Unavailable [phone] Encounters Encounter Location Date Provider Diagnosis [place] [address] [place] [address] 01/06/2025 Kranthi Alvarado Plan Of Treatment Next Appt Details Provider Name:Zhen Sosa, 02/18/2025 01:30:00 PM, [address] [place], [address], Progress Notes * MARIA GUADALUPE JAIN SDOB:1940 (84 yo F)Acc No.[id number]:01/06/2025 Patient: MARIA GUADALUPE SCHMITT :1940 A ge:84 Y S ex:Female Address:[address] [place] [phone] * true * Date: Generated for Printi ng/Faxing/eTransmitting on: 0 01/11/2025 02:41 AM EDT
--- OUTSIDE RECORDS SUMMARY | 2025-01-07 06:50 | XMS_ITS ---
Author Organization [facility] Address [address] [place] [address] Care Team Providers Care Veneer Splicer Name Role Phone James Rayo Primary Care Provider UnavailSandeep Mobley Unavailable [phone] REASON FOR VISIT LOWER LUMBAR PAIN Encounters Encounter Location Date Provider Diagnosis [facility] [address] [place] [address] [place] [address] 01/07/2025 Sandeep Gutierrez Plan Of Treatment Next Appt Details Provider Name:Zhen Sosa, 02/18/2025 01:30:00 PM, [address] [place], [address], Progress Notes * MARIA GUADALUPE JAIN SDOB:1940 (84 yo F)Acc No.[id number]:01/07/2025 Patient: MARIA GUADALUPE SCHMITT Provider: Savita Langley MD, PhD :1940 A ge:84 Y S ex:Female Date:01/07/2025 Address:[address] [place], [place] [id number] Pcp:James Rayo Subjective: * Chief Complaints: * 1 . LOWER LUMBAR PAIN. * Medical History: Objective: * Vitals: Assessment: Plan: * Treatment: Forms: * Images: * Electronic signature of Mason Gutierrez MD, PHD on 01/11/2025 at 02:40 AM EDT Sign off status: Pending * Provider: Savita Langley MD, PhD Date: 0 01/07/2025 Generated for Veto rivera/Olamide/Stephanie on: 0 01/11/2025 02:40 AM KATHYT
[2025-01-11 02:34] VITALS: BP 134/80; PULSE 82; TEMP 36.7; O2SAT 96; BMI 25.2
--- OUTSIDE RECORDS SUMMARY | 2025-01-11 02:40 | XMS_ITS | Patient Health Record ---
Author Organization [facility] Address [address] [place] [address] Care Team Providers Care College Service Officer Name Role Phone James Rayo Primary Care Provider Unavailabl Sandeep Rodriguez Unavailable [phone] Kaden Blanco Unavailable [phone] Kranthi Kahn Unavailable [phone] Reason For Referral Reason APPROVED...............................01/06/25..............................JOSEPH Bowen [facility] REFERRAL DR KAHN FOR RIGHTL3-L4 AND L4-5 TFESI Diagnos is 1 Degeneration of intervertebral disc of l umbar region with discogenic back pain and lower extremity pain (M51.362) Diagnos is 2 Lumbar stenosis with neurogenic claudica tion (M48.062) [facility] Referri ng Provide r First Name Kelindao Referri nicole Provide r Last Name [facility] Frank rivera Provide r Special ity Orthopedic Surgery Referre d [facility] IOS - Epidural Referre d Address [address],[place], [place],[address],[place] Procedu re 1 INJ FORAMEN EPIDURAL L/S ([id number]) General Notes Ashley Amaya 01/06/2025 02:27:42 PM >, Morena Ribeiro 01/06/2025 02:51:38 PM > 01.06.2025, F/U WITH Josh SINGLETARY Kayla 01/06/2025 02:55:13 PM > AUTHORIZATION # [id number] APPROVED AND VALID 01/07/25-01/20/25 PER AIM. SCANNED INTO CHART., Quintin Morena 01/06/2025 03:10:27 PM > HE IS CHANGING THE LEVELS AND YOU RUN THIS AGAIN?, Dariana Moreno 01/06/2025 03:18:57 PM > I CAN'T RUN AGAIN THIS IS A MEDICARE PLAN AND ONCE DETERMINATION HAS BEEN MADE THEY WON'T ALLOW ANOTHER AUTHORIZATION TO BE SUBMITTED FOR SAME DOS. CODES WILL BE BILLED OUT THE SAME SO WE ARE GOOD THERE. HE JUST NEEDS TO DOCUMENT WHY HE CHANGED LEVELS FROM WHAT WAS PLANNED. AUTHORIZATION DATE UPDATED THOUGH I REALIZED I RAN THIS 01/07/25 AND NOT 01/06/25. AUTHORIZATION NOW VALID 01/06/25-01/19/25. SCANNED INTO CHART. Yolanda [place] 01/06/2025 03:02:52 PM >01/06/25 ADD ON Referra l Priorit y Stat Medications Medication SIG (Take, Route, Fr equency, Duration) Notes Start Date End Date Status magnesium oxide Acti ve Metoprolol Tartrate Active isosorbide mononitrate Active levothyroxine Active furosemide Active HYDROcodone Active Vitamin D2 Active warfarin Active Entresto Active simvastatin Active aspirin Active dilTIAZem Active ondansetron Active gabapentin Active pantoprazole Active alendronate Active Social History Tobacco Use: Social History Observation Description Date Details (start date - stop date) Current Smoker NA - NA AUDIT-C (Standard) Question Answer Notes Did you have a drink containing alcohol in the p ast year? No Points 0 Interpretation Negative Tobacco Control (Standard) Question Answer Notes Tobacco use: Current smoker Problems Problem Type SNOMED Code ICD Code Onset Dates Problem Status W/U Status Risk Notes Problem 362130768 Lumbar radiculopathy (M54.16) Active confirmed Problem 81443387 Lumbar stenosis with neurogenic claudication (M48.062) Active confirmed Vital Signs Height 5'8 in 01/06/2025 Weight 166 lbs 01/06/2025 BMI 25.24 01/06/2025 Encounters Encounter Location Date Provider Diagnosis [facility] [place] [address] [place] [address] 01/06/2025 Kaden Blanco Degeneration of intervertebral disc of lumbar region with discogenic back pain and lower extremity pain M51.362 ; Lumbar radiculopathy M54.16 and Lumbar stenosis with neurogenic claudication M48.062 IOS - Epidural [address] [place] [address] 01/06/2025 Kranthi Kahn [facility] [address] [place] [address] 01/06/2025 Kranthi Kahn Assessments Encounter Date Diagnosis (ICD Code) Assessment Notes Treatment Notes Treatment Clinical Notes Section Notes 01/06/2025 Lumbar radiculopathy (ICD-10 - M54.16) 1. L4-5 spondylolisthes is, grade 1 2. L3-S1 degenerative disc disease with stenosis and radiculopathy 3. Right iliopsoas mass 01/06/2025 Degeneration of intervertebral disc of lumbar region with discogenic back pain and lower extremity pain (ICD-10 - M51.362) 1. L4-5 spondylolisthes is, grade 1 2. L3-S1 degenerative disc disease with stenosis and radiculopathy 3. Right iliopsoas mass 01/06/2025 Lumbar stenosis with neurogenic claudication (ICD-10 - M48.062) 1. L4-5 spondylolisthes is, grade 1 2. L3-S1 degenerative disc disease with stenosis and radiculopathy 3. Right iliopsoas mass 01/06/2025 Other Plan established by Dr. Langley. MRI imaging reviewed and discussed with the patient. He is recommending an epidural steroid injection at L4-[address]-guided or fluoroscopy guided. Given patient's significant amount of pain, she is planning to go over to our pain management physician today for the injection. Patient is already scheduled for a biopsy of the mass and recommend definitely proceeding with this. We will see her back for a symptom recheck following the injection. The patient is very much in agreement with the treatment and/or diagnostic plan set forth and all questions were answered to the patient's satisfaction. Thanks once again. If we can be of further service to your patients with disorders of the spine, cervical, thoracic, or lumbar, please do not hesitate to contact Dr. Langley. 1. L4-5 spondylolisthes is, grade 1 2. L3-S1 degenerative disc disease with stenosis and radiculopathy 3. Right iliopsoas mass Plan Of Treatment Pending Test Test Name Order Date Lumbar spine, 4v flex ext - 39351 2024 Epidural injection - lumbar 01/06/2025 Next Appt Details Provider Name:Zhen Sosa, 02/18/2025 01:30:00 PM, [address], [place], [address], Insurance Providers Payer Name Payer Address Payer Phone Subscriber Number Group Number Insured Name Patient Relationship to Insured Coverage Start Date Coverage End Date Medicare [employer] [address] [place] [address] [id number] [facility] MARIA GUADALUPE JAIN Self - patient is the insured 5
--- OUTSIDE RECORDS SUMMARY | 2025-01-11 02:40 | XMS_ITS | Clinical Summary ---
Author Organization [facility] Address [address] [place] [address] Care Team Providers Care Final Assembly And Packing Supervisor Name Role Phone Fatmata Adams FUMIGATOR AND STERILIZER - MINE ENGINEERING SUPERINTENDENT Primary Care Provide r Allergies Active Allergy Reactions Criticality Noted Date Comments Penicillins 01/05/2024 Sulfa Antibiotics Other (See Comments) Medium 01/05/20 24 Mental status changes pulled in from [facility] Medications dilTIAZem (CARDIZEM) 90 MG tablet [...] at bedtime 30 tablet 3 4 Active Active Problems Problem Noted Date Diagnosed Date [...] Type Department Care Team Description 12/14/2024 Telephone [facility] [address] [place] [phone] Yaneli Lui LPN Other 12/07/2024 Telephone [facility] [address] [place] [phone] Austin Zee, requesting callback, patient in pain 12/02/2024 Telephone [facility] [address] [place] [address] [phone] Austin Zee, Other (Records needed) 11/29/2024 2:55 PM EDT Ancillary Procedure [facility] [address] [place] [address] [place] [phone] Lumbar pain 11/29/2024 2:15 PM EDT Office Visit [facility] [address] [place] [address] [place] [address] [phone] Austin Zee, Lumbar pain (Primary Dx) 11/23/2024 Telephone [facility] [address] [place] [phone] Isaiah Bueno PA PT Referral 11/15/2024 10:30 AM EDT Office Visit [facility] [id number] [place] [address] [place] [address] Isaiah Bueno PA Pain; Closed fracture of shaft of right femur with routine healing, unspecified fracture morphology, subsequent encounter; Closed fracture of proximal end of left humerus with routine healing, unspecified fracture morphology, subsequent encounter 11/15/2024 10:20 AM EDT Ancillary Procedure [facility] [address] [place] [phone] Pain; Closed fracture of shaft of right [...] 10:30 AM EDT Office Visit [facility] [address] [facility] [address] [place] [address] Iasiah Bueno PA [address] [facility] [address] [place], [place] [id number] 3mfu Lt shoulder, rt femur Health Maintenance [...] this topic Medical Devices Implanted Type Area Insurance Advisor Device Identifier Shelf Expiration Date Model / Serial / Lot Screw Peripheral 38mm - [id number] Implanted:Qty: 1 on 02/18/2024 by Austin Zee, DO at [facility] Shoulde r/Arm/W rist/Niño nd Left: Shoulder [employer]-PMM [id number] / / Nail Im Fem [id number] Mm Rt Greater Trochanteric Strl T2 Alpha - [id number] Implanted:Qty: 1 on 01/06/2024 [facility] [id number] 07/03/2031 [id number] / / [id number] Screw Bne L90mm Dia6.5mm Canc Fem Ti Lag Rory Saad Partially - [id number] Implanted:Qty: 1 on 01/06/2024 by Austin [facility] [employer] [id number] 09/03/2027 [id number] / / [id number] Screw Bne L90mm Dia6.5mm Canc Fem Ti Lag Rory Saad Partially - [id number] Implanted:Qty: 1 on 01/06/2024 by Austin Z[facility] [id number] 09/03/2027 [id number] / / [id number] Screw Lk St 6t098wx - [id number] Implanted:Qty: 1 on 01/06/2024 by Austin [facility], [facility] [employer] [id number] 05/03/2033 [id number] / / [id number] Screw Bne L50mm Dia5mm Saad For T2 Alpha Nailing Sys - [id number] Implanted:Qty: 1 on 01/06/2024 by Austin [facility]ee[facility] [id number] 01/31/2033 [id number] / / [id number] Screw Bne Lck 5x45 Mm Adv Strl Alpha - [id number] Implanted:Qty: 1 on 01/06/2024 by Austin Zee, DO at [facility] [employer] [facility] [id number] / / Sphere Alvin [id number] Std Reversed Aequalis Perform - [id number] Implanted:Qty: 1 on 02/18/2024 by Austin Zee, DO at [facility] Left: Shoulder [employer]- 11/19/2028 [id number] / [id number] / Baseplate Alvin Drn26uc +3mm Lat Offset Augmented Aequalis - [id number] Implanted:Qty: 1 on 02/18/2024 by Austin Zee, DO at [facility] Left: [facility] 12/18/2028 [id number] / [id number] / Retractor James 24mm For Shldr Sys Aequalis Reversed Ii - [id number] Implanted:Qty: 1 on 02/18/2024 by Austin Zee, DO at [facility] Left: [facility]er [facility] 07/01/2028 [id number] / [id number] / Stem Hum H130mm Dia7mm Yel Co Chrome Ally Niño James For - [id number] Implanted:Qty: 1 on 02/18/2024 by Austin Zee, DO at [facility] Left: [facility] 06/22/2028 [id number] / [id number] / Cement Bone 40gm Hi Visc Palacos R - [id number] Implanted:Qty: 1 on 02/18/2024 by Austin Zee, DO at [facility] Left: Shoulder [facility] 06/03/2028 [id number] / / [id number] Insert Hum [id number] Thk+6mm Lat Reversed Frac Shldr Sys - [id number] Implanted:Qty: 1 on 02/18/2024 by Austin Zee, DO at [facility] Left: [facility] [employer]- 10/12/2027 [id number] / / [id number] Screw Bone L35mm Dia6.5mm Ti St Full Thrd Ctrl For Alvin - [id number] Implanted:Qty: 1 on 02/18/2024 by Austin Zee, DO at [facility] Left: Shoulder [employer] [id number] / / Screw Bone L22mm Dia5mm Ti St Full Thrd Periph For Alvin - [id number] Implanted:Qty: 1 on 02/18/2024 by Austin Zee, DO at [facility] Left: Shoulder [employer] [id number] / / Impl Capped Shoulder S3 Total Adv Reverse [employer] - [id number] Implanted:Qty: 1 on 02/18/2024 by Austin Zee, DO at [facility] Left: Shoulder [employer] [id number] EDICAL / / Explanted Type Area Insurance Advisor Device Identifier Shelf Expiration Date Model / Serial / Lot Kwire Drill Tip Recon [id number] - [id number] Explanted:Qty: 1 on 01/06/2024 by Austin Zee, DO at [facility] Right: Femur [employer] Applico- [id number] / / Kwire Thrd Recon [id number] - [id number] Explanted:Qty: 1 on 01/06/2024 by Austin Zee, DO at [facility] Right: Femur [employer] [id number] / / Kwire Drill Tip Recon [id number] - [id number] Explanted:Qty: 1 on 01/06/2024 by Austin Zee, DO at [facility] Right: Femur [employer] Applico- [id number] / / Guidewire Orthopedic 2.5x220 Mm Alvin Aequalis Perform - [id number] Explanted:Qty: 1 on 02/18/2024 by Austin Zee, DO at [facility] Left: Shoulder [employer] [facility]- 11/25/2028 [id number] / / [id number] Procedures Procedure Name Priority [...] routine healing, unspecified fracture morphology, subsequent encounter XR FEMUR RIGHT (MIN 2 VIEWS) Routine 11/15/2024 10:25 AM EDT Pain Closed fracture of shaft of right femur with routine healing, unspecified fracture morphology, subsequent encounter Closed fracture of proximal end of left humerus with routine healing, unspecified fracture morphology, subsequent encounter from Last 3 Months Results * XR SHOULDER LEFT (MIN 2 VIEWS) (11/15/2024 10:25 AM EDT) Anatomical Region Laterality Modality Shoulder, Chest, Arm Computed Ra diography Narrative 01/09/2025 8:32 AM EDT History: 83 y.o. year old female status [...] alignment. Impression: Stable arthroplasty left proximal humerus Isaiah ROCHA IMG DIAGNOSTIC IMAGING ORDERABL ES Final Result * XR FEMUR RIGHT (MIN 2 VIEWS) (11/15/2024 10:25 AM EDT) Anatomical Region Laterality Modality Hip, Thigh, Knee Computed Radiog henrique Narrative 01/09/2025 8:32 AM EDT History: 83 y.o. year old female status [...] alignment. Impression: Stable arthroplasty left proximal humerus Isaiah ROCHA IMG DIAGNOSTIC IMAGING ORDERABL ES Final Result from Last 3 Months Insurance [facility] MEDICARE Advance Directives * Full Code (Latest Code Status on File) Date Activated Date Inactivated Comments 02/17/2024 8:10 AM 02/23/2024 4:59 PM * Full Code Date Activated Date Inactivated Comments 01/05/2024 7:14 PM 01/13/2024 11:31 PM Healthcare Agents on File Name Relationship Healthcare Agent Relationshi p Communication Chava Diallo Spouse Primary Decision Maker Care Teams Final Assembly And Packing Supervisor Relationship Specialty Start Date End Date Fatmata Adams, FUMIGATOR AND STERILIZER - MINE ENGINEERING SUPERINTENDENT [address] [place] [address] [place] [address] PCP - General 01/06/24
--- OUTSIDE RECORDS SUMMARY | 2025-01-11 02:40 | XMS_ITS | CCD ---
Author Organization [facility] [employer] Care Team Providers Care Director Of Instructional Technology Name Role Phone DANIEL ., DR DE [...] Unavailable PAY ., DR BAEZ Attending Unavailable DALMATIA, DR CONCEPCIÓN Wang Consulting Unavailable PAY ., [...] Consulting Unavailable JOSESITO, FATMATA Consulting Unavailable Josesito INCOME TAX ADMINISTRATOR - WATERWORKS SUPERVISOR, Fatmata S Primary Care Provide r TAE [...] ZEE Admitting Unavailable AUSTIN ZEE Attending Unavailable ADELINE BURLESON Consulting Unavailable EDITH GOMEZ Consulting Unavailable DELVINSTEPHANY Referring Unavailable JOSESITO, FATMATA S Primary Care Unavailable Allergies Allergy Classification Reported Allergen(s) Allergy Type Date of Onset Reaction(s) Facility (2 sources) Sulfonamides (Antibiotic) Drug allergy (disorder) 3 [facility] (3 sources) Penicillins Propensity to adverse reactions to drug 4 [facility] (3 sources) Sulfonamides (Antibiotic) Propensity to adverse reactions to drug 4 [facility] Medications Current Medications Medication Drug Class(es) [...] source) Pain, unspecified; Translations: [Pain, unspecified] Onset: 5 Episodic Septicemia (except in labor) (3 sources) Infectious agent in bloodstream; Translations: [Sepsis, unspecified organism] Onset: 4 01-06-2024 Episodic Unclassified (1 source) Traumatic subdural hemorrhage with loss of consciousness [...] fracture] Onset: 01-06-2024 01-06-2024 Episodic Fracture of upper limb (6 sources) Closed fracture of proximal left humerus; Translations: [Unspecified fracture of upper end of left humerus, initial encounter for closed fracture] Onset: 01-06-2024 01-06-2024 Episodic Malaise and fatigue (4 sources) Other fatigue; Translations: [OTHER FATIGUE] Onset: 03-01-2022 Episodic Other aftercare (1 source) [facility] (current) use of anticoagulants; Translations: [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] Onset: 08-12-2022 Episodic Other aftercare (1 source) [facility] (current) use of aspirin; Translations: [GROUP HOME CURRENT USE OF ASPIRIN] Onset: 08-12-2022 Episodic Other aftercare (2 sources) Other [facility] (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 therapy; Translations: [Other [facility] (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 therapy] Onset: 07-03-2023 Episodic Other [...] XR FEMUR RIGHT (MIN 2 VIEWS) on 01-09-2025 XR FEMUR RIGHT (MIN 2 VIEWS) History: [...] proximal humerus Interpreted by: Mary Gilmore PA Phillips, Seth A, DO Signed by: Francisco Zhao DO 01/09/25 Final result Normal [facility] XR SHOULDER LEFT (MIN 2 VIEW S)on 01-09-2025 XR SHOULDER LEFT (MIN 2 VIEWS) History: [...] proximal humerus Interpreted by: Mary Gilmore PA Phillips, Seth A, DO Signed by: Francisco Zhao DO 01/09/25 Final result Normal [facility] [...] Anion gap [Moles/Vol] 6 mmol/L Low 9-16 [facility] Comment on above: Performed By: #### P T, CMPX, CDP #### [place] [address] Call Box Wirer: Sarath Olivera MD Calcium [Mass/Vol] 8.6 mg/dL Normal 8.6-10.4 [facility] Comment on above: Performed By: #### P T, CMPX, CDP #### [facility] [address] [place] [address] Call Box Wirer: Sarath Olivera MD Chloride [Moles/Vol] 108 mmol/L High 98-[address] [facility] Comment on above: Performed By: #### P T, CMPX, CDP #### [facility] [address] [place] [address] Call Box Wirer: Sarath Olivera MD CO2 [Moles/Vol] 30 mmol/L Normal 20-31 [facility] Comment on above: Performed By: #### P T, CMPX, CDP #### [facility] [address] [place] [address] 20905 Call Box Wirer: Sarath Olivera MD Creatinine [Mass/Vol] 0.7 mg/dL Normal 0.50-0.90 [facility] Comment on above: Performed By: #### P T, CMPX, CDP #### [facility] [address] [place] [address] Call Box Wirer: Sarath Olivera MD GFR/1.73 sq M.predicted among [...] Performed By: #### P T, CMPX, CDP #### [facility] [address] [place] [address] Call Box Wirer: Sarath Olivera MD Glucose [Mass/Vol] 91 mg/dL Normal 74-99 [facility] Comment on above: Performed By: #### P T, CMPX, CDP #### [facility] [address] [place] [address] Call Box Wirer: Sarath Olivera MD Potassium [Moles/Vol] 3.9 mmol/L Normal 3.7-5.3 [facility] Comment on above: Performed By: #### P T, CMPX, CDP #### [facility] [address] [place] [address] 82093 Call Box Wirer: Sarath Olivera MD Sodium [Moles/Vol] 144 mmol/L Normal 136-145 [facility] Comment on above: Performed By: #### P T, CMPX, CDP #### [facility] [address] [place] [address] Call Box Wirer: Sarath Olivera MD Urea nitrogen [Mass/Vol] 20 mg/dL Normal 8-23 [facility] Comment on above: Performed By: #### P T, CMPX, CDP #### [address] [address] Call Box Wirer: Sarath Olivera MD CBCon 02-23-2024 Erythrocyte distribution width (RBC) [Ratio] 17.4 % High 11.8-14.4 [facility] Comment on above: Performed By: #### P T, CMPX, CDP #### [facility] [address] [place] [address] Call Box Wirer: Sarath Olivera MD Hematocrit (Bld) [Volume fraction] 35.7 % Low 36.3-47.1 [facility] Comment on above: Performed By: #### P T, CMPX, CDP #### [facility] [address] [place] [address] Call Box Wirer: Sarath Olivera MD Hemoglobin (Bld) [Mass/Vol] 10.5 g/dL Low 11.9-15.1 [facility] Comment on above: Performed By: #### P T, CMPX, CDP #### [facility] [address] [place] [address] Call Box Wirer: Sarath Olivera MD MCH (RBC) [Entitic mass] 30.0 pg Normal 25.2-33.5 [facility] Comment on above: Performed By: #### P T, CMPX, CDP #### [facility] [address] [place] [address] Call Box Wirer: Sarath Olivera MD MCHC (RBC) [Mass/Vol] 29.4 g/dL Normal 28.4-34.8 [facility] Comment on above: Performed By: #### P T, CMPX, CDP #### [address] [address] Call Box Wirer: Sarath Olivera MD MCV (RBC) [Entitic vol] 102.0 fL Normal 82.6-102.9 [facility] Comment on above: Performed By: #### P T, CMPX, CDP #### [address] [address] Call Box Wirer: Sarath Olivera MD NRBC Automated 0.0 per 100 WBC Normal 0.0 [facility] Comment on above: Performed By: #### P T, CMPX, CDP #### [address] [address] Call Box Wirer: Sarath Olivera MD Platelet mean volume (Bld) [Entitic vol] 11.8 fL Normal 8.1-13.5 [facility] Comment on above: Performed By: #### P T, CMPX, CDP #### [facility] [address] [place] [address] Call Box Wirer: Sarath Olivera MD Platelets (Bld) [#/Vol] 181 10*3/uL Normal 138-453 [facility] Comment on above: Performed By: #### P T, CMPX, CDP #### [address] [address] Call Box Wirer: Sarath Olivera MD RBC (Bld) [#/Vol] 3.50 10*6/uL Low 3.95-5.11 [facility] Comment on above: Performed By: #### P T, CMPX, CDP #### [address] [address] Call Box Wirer: Sarath Olivera MD WBC (Bld) [#/Vol] 5.8 10*3/uL Normal 3.5-11.3 [facility] Comment on above: Performed By: #### P T, CMPX, CDP #### [facility] [address] [place] [address] Call Box Wirer: Sarath Olivera MD PTon 02-23-2024 INR Coag (PPP) [Relative time] 1.6 {INR} Normal [facility] Comment on above: Result Comment: Therapeutic Range: Moderate Anticoagulant Intensity: INR = 2.0-3.0 High Anticoagulant Intensity: INR = 2.5-3.5 Performed By: #### P T, CMPX, CDP #### [facility] [address] [place] [address] Call Box Wirer: Sarath Olivera MD PT Coag (PPP) [Time] 18.8 s High 11.7-14.[address] [facility] Comment on above: Performed By: #### P T, CMPX, CDP #### [facility] [address] [place] [address] Call Box Wirer: Sarath Olivera MD Basic Metab w/rfx MGon 02-213 Anion gap [Moles/Vol] 7 mmol/L Low 9-16 [facility] Comment on above: Performed By: #### Damir BC, BMPX #### [address] [address] Call Box Wirer: Sarath Olivera MD Calcium [Mass/Vol] 8.3 mg/dL Low 8.6-10.4 [facility] Comment on above: Performed By: #### C BC, BMPX #### [facility] [address] [place] [address] Call Box Wirer: Sarath Olivera MD Chloride [Moles/Vol] 107 mmol/L Normal 98-[address] [facility] Comment on above: Performed By: #### C BC, BMPX #### [facility] [address] [place] [address] Call Box Wirer: Sarath Olivera MD CO2 [Moles/Vol] 28 mmol/L Normal 20-31 [facility] Comment on above: Performed By: #### C BC, BMPX #### [facility] [address] [place] [phone] Call Box Wirer: Sarath Olivera MD Creatinine [Mass/Vol] 0.9 mg/dL Normal 0.50-0.90 [facility] Comment on above: Performed By: #### C BC, BMPX #### [facility] [address] [place] [address] Call Box Wirer: Sarath Olivera MD GFR/1.73 sq M.predicted among [...] renal tubular secretion. Performed By: #### C PAOLA, BMPX #### [address] [address] Call Box Wirer: Sarath Olivera MD Glucose [Mass/Vol] 105 mg/dL High 74-99 [facility] Comment on above: Performed By: #### C PAOLA, BMPX #### [facility] [address] [place] [address] Call Box Wirer: Sarath Olivera MD Potassium [Moles/Vol] 4.0 mmol/L Normal 3.7-5.3 [facility] Comment on above: Performed By: #### C BC, BMPX #### [facility] [address] [place] [address] 31117 Call Box Wirer: Sarath Olivera MD Sodium [Moles/Vol] 142 mmol/L Normal 136-145 [facility] Comment on above: Performed By: #### C BC, BMPX #### [facility] [address] [place] [address] 81875 Call Box Wirer: Sarath Olivera MD Urea nitrogen [Mass/Vol] 24 mg/dL High 8-23 [facility] Comment on above: Performed By: #### C BC, BMPX #### [facility] [address] [place] [address]42 Call Box Wirer: Sarath Olivera MD CBCon 02-22-2024 Erythrocyte distribution width (RBC) [Ratio] 17.2 % High 11.8-14.4 [facility] Comment on above: Performed By: #### C BC, BMPX #### [facility] [address] [place] [address] Call Box Wirer: Sarath Olivera MD Hematocrit (Bld) [Volume fraction] 32.6 % Low 36.3-47.1 [facility] Comment on above: Performed By: #### C BC, BMPX #### [address] [address] Call Box Wirer: Sarath Olivera MD Hemoglobin (Bld) [Mass/Vol] 9.9 g/dL Low 11.9-15.1 [facility] Comment on above: Performed By: #### C BC, BMPX #### [facility] [address] [place] [address] Call Box Wirer: Sarath Olivera MD MCH (RBC) [Entitic mass] 30.6 pg Normal 25.2-33.5 [facility] Comment on above: Performed By: #### C BC, BMPX #### [facility] [address] [place] [address] Call Box Wirer: Sarath Olivera MD MCHC (RBC) [Mass/Vol] 30.4 g/dL Normal 28.4-34.8 [facility] Comment on above: Performed By: #### C BC, BMPX #### [address] [address] Call Box Wirer: Sarath Olivera MD MCV (RBC) [Entitic vol] 100.6 fL Normal 82.6-102.9 [facility] Comment on above: Performed By: #### C BC, BMPX #### [address] [address] Call Box Wirer: Sarath Olivera MD NRBC Automated 0.0 per 100 WBC Normal 0.0 [facility] Comment on above: Performed By: #### C BC, BMPX #### [address] [address] Call Box Wirer: Sarath Olivera MD Platelet mean volume (Bld) [Entitic vol] 12.0 fL Normal 8.1-13.5 [facility] Comment on above: Performed By: #### C BC, BMPX #### [address] [address] Call Box Wirer: Sarath Olivera MD Platelets (Bld) [#/Vol] 192 10*3/uL Normal 138-453 [facility] Comment on above: Performed By: #### C BC, BMPX #### [address] [address] Call Box Wirer: Sarath Olivera MD RBC (Bld) [#/Vol] 3.24 10*6/uL Low 3.95-5.11 [facility] Comment on above: Performed By: #### C BC, BMPX #### [address] [address] Call Box Wirer: Sarath Olivera MD WBC (Bld) [#/Vol] 8.0 10*3/uL Normal 3.5-11.3 [facility] Comment on above: Performed By: #### C BC, BMPX #### [address] [address] Call Box Wirer: Sarath Olivera MD PTon 02-22-2024 INR Coag (PPP) [Relative time] 1.6 {INR} Normal [facility] Comment on above: Result Comment: Therapeutic Range: Moderate Anticoagulant Intensity: INR = 2.0-3.0 High Anticoagulant Intensity: INR = 2.5-3.5 Performed By: #### P T #### [facility] [address] [place] [address] Call Box Wirer: Sarath Olivera MD PT Coag (PPP) [Time] 18.6 s High 11.7-14.[address] [facility] Comment on above: Performed By: #### P T #### [address] [address] Call Box Wirer: Sarath Olivera MD Basic Metab w/rfx MGon 02-20 Anion gap [Moles/Vol] 6 mmol/L Low 9-16 [facility] Comment on above: Performed By: #### P T, CMPX, CDP #### [facility] [address] [place] [address]56 Call Box Wirer: Sarath Olivera MD Calcium [Mass/Vol] 8.5 mg/dL Low 8.6-10.4 [facility] Comment on above: Performed By: #### P T, CMPX, CDP #### [facility] [address] [place] [address] Call Box Wirer: Sarath Olivera MD Chloride [Moles/Vol] 108 mmol/L High 98-[address] [facility] Comment on above: Performed By: #### P T, CMPX, CDP #### [facility] [address] [place] [address] Call Box Wirer: Sarath Olivera MD CO2 [Moles/Vol] 29 mmol/L Normal 20-31 [facility] Comment on above: Performed By: #### P T, CMPX, CDP #### [facility] [address] [place] [address] Call Box Wirer: Sarath Olivera MD Creatinine [Mass/Vol] 0.7 mg/dL Normal 0.50-0.90 [facility] Comment on above: Performed By: #### P T, CMPX, CDP #### [facility] [address] [place] [address] 213[address] Call Box Wirer: Sarath Olivera MD GFR/1.73 sq M.predicted among [...] Performed By: #### P T, CMPX, CDP #### [facility] [address] [place] [address] 345[address] Call Box Wirer: Sarath Olivera MD Glucose [Mass/Vol] 122 mg/dL High 74-99 [facility] Comment on above: Performed By: #### P T, CMPX, CDP #### [facility] [address] [place] [address] 97653 Call Box Wirer: Sarath Olivera MD Potassium [Moles/Vol] 4.2 mmol/L Normal 3.7-5.3 [facility] Comment on above: Performed By: #### P T, CMPX, CDP #### [facility] [address] [place] [address] Call Box Wirer: Sarath Olivera MD Sodium [Moles/Vol] 143 mmol/L Normal 136-145 [facility] Comment on above: Performed By: #### P T, CMPX, CDP #### [facility] [address] [place] [address] Call Box Wirer: Sarath Olivera MD Urea nitrogen [Mass/Vol] 22 mg/dL Normal 8-23 [facility] Comment on above: Performed By: #### P T, CMPX, CDP #### [facility] [address] [place] [address] Call Box Wirer: Sarath Olivera MD CBCon 02-21-2024 Erythrocyte distribution width (RBC) [Ratio] 17.5 % High 11.8-14.4 [facility] Comment on above: Performed By: #### P T, CMPX, CDP #### [facility] [address] [place] [address]51 Call Box Wirer: Sarath Olivera MD Hematocrit (Bld) [Volume fraction] 32.1 % Low 36.3-47.1 [facility] Comment on above: Performed By: #### P T, CMPX, CDP #### [facility] [address] [place] [address]31 Call Box Wirer: Sarath Olivera MD Hemoglobin (Bld) [Mass/Vol] 9.7 g/dL Low 11.9-15.1 [facility] Comment on above: Performed By: #### P T, CMPX, CDP #### [facility] [address] [place] [address]79 Call Box Wirer: Sarath Olivera MD MCH (RBC) [Entitic mass] 30.5 pg Normal 25.2-33.5 [facility] Comment on above: Performed By: #### P T, CMPX, CDP #### [facility] [address] [place] [address] Call Box Wirer: Sarath Olivera MD MCHC (RBC) [Mass/Vol] 30.2 g/dL Normal 28.4-34.8 [facility] Comment on above: Performed By: #### P T, CMPX, CDP #### [address] [address] Call Box Wirer: Sarath Olivera MD MCV (RBC) [Entitic vol] 100.9 fL Normal 82.6-102.9 [facility] Comment on above: Performed By: #### P T, CMPX, CDP #### [address] [address] Call Box Wirer: Sarath Olivera MD NRBC Automated 0.0 per 100 WBC Normal 0.0 [facility] Comment on above: Performed By: #### P T, CMPX, CDP #### [address] [address] Call Box Wirer: Sarath Olivera MD Platelet mean volume (Bld) [Entitic vol] 11.8 fL Normal 8.1-13.5 [facility] Comment on above: Performed By: #### P T, CMPX, CDP #### [address] [address] Call Box Wirer: Sarath Olivera MD Platelets (Bld) [#/Vol] 183 10*3/uL Normal 138-453 [facility] Comment on above: Performed By: #### P T, CMPX, CDP #### [address] [address] Call Box Wirer: Sarath Olivera MD RBC (Bld) [#/Vol] 3.18 10*6/uL Low 3.95-5.11 [facility] Comment on above: Performed By: #### P T, CMPX, CDP #### [address] [address] Call Box Wirer: Sarath Olivera MD WBC (Bld) [#/Vol] 10.7 10*3/uL Normal 3.5-11.3 [facility] Comment on above: Performed By: #### P T, CMPX, CDP #### [address] [address] Call Box Wirer: Sarath Olivera MD PTon 02-21-2024 INR Coag (PPP) [Relative time] 1.6 {INR} Normal [facility] Comment on above: Result Comment: Therapeutic Range: Moderate Anticoagulant Intensity: INR = 2.0-3.0 High Anticoagulant Intensity: INR = 2.5-3.5 Performed By: #### P T CMPX, CDP #### [facility] [address] [place] [address] Call Box Wirer: Sarath Olivera MD PT Coag (PPP) [Time] 18.8 s High 11.7-14.[address] [facility] Comment on above: Performed By: #### P T, CMPX, CDP #### [facility] [address] [place] [address]06 Call Box Wirer: Sarath Olivera MD Basic Metab w/rfx MGon 02-19 Anion gap [Moles/Vol] 6 mmol/L Low 9-16 [facility] Comment on above: Performed By: #### P T, CMPX, CDP #### [facility] [address] [place] [address] 23882 Call Box Wirer: Sarath Olivera MD Calcium [Mass/Vol] 8.6 mg/dL Normal 8.6-10.4 [facility] Comment on above: Performed By: #### P T, CMPX, CDP #### [facility] [address] [place] [address]20 Call Box Wirer: Sarath Olivera MD Chloride [Moles/Vol] 107 mmol/L Normal 98-[address] [facility] Comment on above: Performed By: #### P T, CMPX, CDP #### [facility] [address] [place] [address] Call Box Wirer: Sarath Olivera MD CO2 [Moles/Vol] 30 mmol/L Normal 20-31 [facility] Comment on above: Performed By: #### P T, CMPX, CDP #### [facility] [address] [place] [address]11 Call Box Wirer: Sarath Olivera MD Creatinine [Mass/Vol] 0.9 mg/dL Normal 0.50-0.90 [facility] Comment on above: Performed By: #### P T, CMPX, CDP #### [facility] [address] [place] [address]11 Call Box Wirer: Sarath Olivera MD GFR/1.73 sq M.predicted among [...] Performed By: #### P T, CMPX, CDP #### [facility] [address] [place] [address] 99098 Call Box Wirer: Sarath Olivera MD Glucose [Mass/Vol] 143 mg/dL High 74-99 [facility] Comment on above: Performed By: #### P T, CMPX, CDP #### [facility] [address] [place] [address]85 Call Box Wirer: Sarath Olivera MD Potassium [Moles/Vol] 4.2 mmol/L Normal 3.7-5.3 [facility] Comment on above: Performed By: #### P T, CMPX, CDP #### [facility] [address] [place] [address] Call Box Wirer: Sarath Olivera MD Sodium [Moles/Vol] 143 mmol/L Normal 136-145 [facility] Comment on above: Performed By: #### P T, CMPX, CDP #### [facility] [address] [place] [address]64 Call Box Wirer: Sarath Olivera MD Urea nitrogen [Mass/Vol] 20 mg/dL Normal 8-23 [facility] Comment on above: Performed By: #### P T, CMPX, CDP #### [facility] [address] [place] [address]365 Call Box Wirer: Sarath Olivera MD CBCon 02-20-2024 Erythrocyte distribution width (RBC) [Ratio] 17.4 % High 11.8-14.4 [facility] Comment on above: Performed By: #### P T, CMPX, CDP #### [facility] [address] [place] [address]79 Call Box Wirer: Sarath Olivera MD Hematocrit (Bld) [Volume fraction] 32.6 % Low 36.3-47.1 [facility] Comment on above: Performed By: #### P T, CMPX, CDP #### [facility] [address] [place] [address]376 Call Box Wirer: Sarath Olivera MD Hemoglobin (Bld) [Mass/Vol] 9.9 g/dL Low 11.9-15.1 [facility] Comment on above: Performed By: #### P T, CMPX, CDP #### [facility] [address] [place] [address] Call Box Wirer: Sarath Olivera MD MCH (RBC) [Entitic mass] 30.7 pg Normal 25.2-33.5 [facility] Comment on above: Performed By: #### P T, CMPX, CDP #### [address] [address] Call Box Wirer: Sarath Olivera MD MCHC (RBC) [Mass/Vol] 30.4 g/dL Normal 28.4-34.8 [facility] Comment on above: Performed By: #### P T, CMPX, CDP #### [address] [address] Call Box Wirer: Sarath Olivera MD MCV (RBC) [Entitic vol] 100.9 fL Normal 82.6-102.9 [facility] Comment on above: Performed By: #### P T, CMPX, CDP #### [address] [address] Call Box Wirer: Sarath Olivera MD NRBC Automated 0.0 per 100 WBC Normal 0.0 [facility] Comment on above: Performed By: #### P T, CMPX, CDP #### [address] [address] Call Box Wirer: Sarath Olivera MD Platelet mean volume (Bld) [Entitic vol] 11.6 fL Normal 8.1-13.5 [facility] Comment on above: Performed By: #### P T, CMPX, CDP #### [address] [address] Call Box Wirer: Sarath Olivera MD Platelets (Bld) [#/Vol] 176 10*3/uL Normal 138-453 [facility] Comment on above: Performed By: #### P T, CMPX, CDP #### [address] [address] Call Box Wirer: Sarath Olivera MD RBC (Bld) [#/Vol] 3.23 10*6/uL Low 3.95-5.11 [facility] Comment on above: Performed By: #### P T, CMPX, CDP #### [facility] [address] [place] [address]642 Call Box Wirer: Sarath Olivera MD WBC (Bld) [#/Vol] 12.8 10*3/uL High 3.5-11.3 [facility] Comment on above: Performed By: #### P T, CMPX, CDP #### [facility] [address] [place] [address]285 Call Box Wirer: Sarath Olivera MD PTon 02-20-2024 INR Coag (PPP) [Relative time] 1.7 {INR} Normal [facility] Comment on above: Result Comment: Therapeutic Range: Moderate Anticoagulant Intensity: INR = 2.0-3.0 High Anticoagulant Intensity: INR = 2.5-3.5 Performed By: #### P T, CMPX, CDP #### [facility] [address] [place] [phone] Call Box Wirer: Sarath Olivera MD PT Coag (PPP) [Time] 19.9 s High 11.7-14.[address] [facility] Comment on above: Performed By: #### P T, CMPX, CDP #### [facility] [address] [place] [address] Call Box Wirer: Sarath Olivera MD Basic Metab w/rfx MGon 02-18 Anion gap [Moles/Vol] 7 mmol/L Low 9-16 [facility] Comment on above: Performed By: #### P T, CMPX, CDP #### [facility] [address] [place] [address] [phone] Call Box Wirer: Sarath Olivera MD Calcium [Mass/Vol] 8.3 mg/dL Low 8.6-10.4 [facility] Comment on above: Performed By: #### P T, CMPX, CDP #### [facility] [address] [place] [address] 65607 Call Box Wirer: Sarath Olivera MD Chloride [Moles/Vol] 106 mmol/L Normal 98-[address] [facility] Comment on above: Performed By: #### P T, CMPX, CDP #### [facility] [address] [place] [address] 40833 Call Box Wirer: Sarath Olivera MD CO2 [Moles/Vol] 27 mmol/L Normal 20-31 [facility] Comment on above: Performed By: #### P T, CMPX, CDP #### [facility] [address] [place] [address] 08302 Call Box Wirer: Sarath Olivera MD Creatinine [Mass/Vol] 0.8 mg/dL Normal 0.50-0.90 [facility] Comment on above: Performed By: #### P T, CMPX, CDP #### [address] [address] Call Box Wirer: Sarath Olivera MD GFR/1.73 sq M.predicted among [...] Performed By: #### P T, CMPX, CDP #### [facility] [address] [place] [address] 47558 Call Box Wirer: Sarath Olivera MD Glucose [Mass/Vol] 174 mg/dL High 74-99 [facility] Comment on above: Performed By: #### P T, CMPX, CDP #### [facility] [address] [place] [address] 49729 Call Box Wirer: Sarath Olivera MD Potassium [Moles/Vol] 4.3 mmol/L Normal 3.7-5.3 [facility] Comment on above: Performed By: #### P T, CMPX, CDP #### [facility] [address] [place] [address] 97293 Call Box Wirer: Sarath Olivera MD Sodium [Moles/Vol] 140 mmol/L Normal 136-145 [facility] Comment on above: Performed By: #### P T, CMPX, CDP #### [facility] [address] [place] [address] 73282 Call Box Wirer: Sarath Olivera MD Urea nitrogen [Mass/Vol] 14 mg/dL Normal 8-23 [facility] Comment on above: Performed By: #### P T, CMPX, CDP #### [facility] [address] [place] [address] 87026 Call Box Wirer: Sarath Olivera MD CBCon 02-19-2024 Erythrocyte distribution width (RBC) [Ratio] 17.8 % High 11.8-14.4 [facility] Comment on above: Performed By: #### P T, CMPX, CDP #### [facility] [address] [place] [address] 76803 Call Box Wirer: Sarath Olivera MD Hematocrit (Bld) [Volume fraction] 33.5 % Low 36.3-47.1 [facility] Comment on above: Performed By: #### P T, CMPX, CDP #### [facility] [address] [place] [address] 97359 Call Box Wirer: Sarath Olivera MD Hemoglobin (Bld) [Mass/Vol] 9.7 g/dL Low 11.9-15.1 [facility] Comment on above: Performed By: #### P T, CMPX, CDP #### [facility] [address] [place] [phone] Call Box Wirer: aSrath Olivera MD MCH (RBC) [Entitic mass] 31.1 pg Normal 25.2-33.5 [facility] Comment on above: Performed By: #### P T, CMPX, CDP #### [address] [address] Call Box Wirer: Sarath Olivera MD MCHC (RBC) [Mass/Vol] 29.0 g/dL Normal 28.4-34.8 [facility] Comment on above: Performed By: #### P T, CMPX, CDP #### [address] [address] Call Box Wirer: Sarath Olivera MD MCV (RBC) [Entitic vol] 107.4 fL High 82.6-102.9 [facility] Comment on above: Performed By: #### P T, CMPX, CDP #### [address] [phone] Call Box Wirer: Sarath Olivera MD NRBC Automated 0.0 per 100 WBC Normal 0.0 [facility] Comment on above: Performed By: #### P T, CMPX, CDP #### [address] [address] Call Box Wirer: Sarath Olivera MD Platelet mean volume (Bld) [Entitic vol] 11.5 fL Normal 8.1-13.5 [facility] Comment on above: Performed By: #### P T, CMPX, CDP #### [address] [address] Call Box Wirer: Sarath Olivera MD Platelets (Bld) [#/Vol] 165 10*3/uL Normal 138-453 [facility] Comment on above: Performed By: #### P T, CMPX, CDP #### [address] [address] Call Box Wirer: Sarath Olivera MD RBC (Bld) [#/Vol] 3.12 10*6/uL Low 3.95-5.11 [facility] Comment on above: Performed By: #### P T, CMPX, CDP #### [facility] [address] [place] [address] 7[address]60 Call Box Wirer: Sarath Olivera MD WBC (Bld) [#/Vol] 10.3 10*3/uL Normal 3.5-11.3 [facility] Comment on above: Performed By: #### P T, CMPX, CDP #### [place] [address] Call Box Wirer: Sarath Olivera MD PTon 1 INR Coag (PPP) [Relative time] 1.7 {INR} Normal [facility] Comment on above: Result Comment: Therapeutic Range: Moderate Anticoagulant Intensity: INR = 2.0-3.0 High Anticoagulant Intensity: INR = 2.5-3.5 Performed By: #### P T, CMPX, CDP #### [place] [address] Call Box Wirer: Sarath Olivera MD PT Coag (PPP) [Time] 19.3 s High 11.7-14.[address] [facility] Comment on above: Performed By: #### P T, CMPX, CDP #### [facility] [address] [place] [address] Call Box Wirer: Sarath Olivera MD CBC with Diffon 02-18-2024 Abs. Basophil <0.03 Normal 0.00-0.20 [facility] Comment on above: Performed By: #### P T, CMPX, CDP #### [facility] [address] [place] [address]604 Call Box Wirer: Sarath Olivera MD Abs. Eosinophil <0.03 Normal 0.00-0.44 [facility] Comment on above: Performed By: #### P T, CMPX, CDP #### [facility] [address] [place] [address] 50194 Call Box Wirer: Sarath Olivera MD Abs.Imm.Granulocyte 0.06 k/uL Normal 0.00-0.30 [facility] Comment on above: Performed By: #### P T, CMPX, CDP #### [facility] [address] [place] [address] 47882 Call Box Wirer: Sarath Olivera MD Abs.Neutrophil (Seg) 9.40 k/uL High 1.50-8.[address] [facility] Comment on above: Performed By: #### P T, CMPX, CDP #### [facility] [address] [place] [address] 26491 Call Box Wirer: Sarath Olivera MD Basophils/100 WBC (Bld) 0 % Normal 0-2 [facility] Comment on above: Performed By: #### P T, CMPX, CDP #### [facility] [address] [place] [address] 11638 Call Box Wirer: Sarath Olivera MD Eosinophils/100 WBC (Bld) 0 % Low 1-4 [facility] Comment on above: Performed By: #### P T, CMPX, CDP #### [facility] [address] [place] [address] 22889 Call Box Wirer: Sarath Olivera MD Erythrocyte distribution width (RBC) [Ratio] 17.9 % High 11.8-14.4 [facility] Comment on above: Performed By: #### P T, CMPX, CDP #### [facility] [address] [place] [address] 49841 Call Box Wirer: Sarath Olivera MD Hematocrit (Bld) [Volume fraction] 39.2 % Normal 36.3-47.1 [facility] Comment on above: Performed By: #### P T, CMPX, CDP #### [address] [address] Call Box Wirer: Sarath Olivera MD Hemoglobin (Bld) [Mass/Vol] 11.9 g/dL Normal 11.9-15.1 [facility] Comment on above: Performed By: #### P T, CMPX, CDP #### [address] [address] Call Box Wirer: Sarath Olivera MD Immature granulocytes/100 WBC (Bld) 1 % High 0 [facility] Comment on above: Performed By: #### P T, CMPX, CDP #### [address] [address] Call Box Wirer: Sarath Olivera MD Lymphocytes (Bld) [#/Vol] 1.51 10*3/uL Normal 1.10-3.70 [facility] Comment on above: Performed By: #### P T, CMPX, CDP #### [address] [address] Call Box Wirer: Sarath Olivera MD Lymphocytes/100 WBC (Bld) 13 % Low 24-43 [facility] Comment on above: Performed By: #### P T, CMPX, CDP #### [address] [address] Call Box Wirer: Sarath Olivera MD MCH (RBC) [Entitic mass] 30.9 pg Normal 25.2-33.5 [facility] Comment on above: Performed By: #### P T, CMPX, CDP #### [address] [address] Call Box Wirer: Sarath Olivera MD MCHC (RBC) [Mass/Vol] 30.4 g/dL Normal 28.4-34.8 [facility] Comment on above: Performed By: #### P T, CMPX, CDP #### [address] [place] [address] Call Box Wirer: Sarath Olivera MD MCV (RBC) [Entitic vol] 101.8 fL Normal 82.6-102.9 [facility] Comment on above: Performed By: #### P T, CMPX, CDP #### [address] [address] Call Box Wirer: Sarath Olivera MD Monocytes (Bld) [#/Vol] 0.50 10*3/uL Normal 0.10-1.20 [facility] Comment on above: Performed By: #### P T, CMPX, CDP #### [address] [address] Call Box Wirer: Sarath Olivera MD Monocytes/100 WBC (Bld) 4 % Normal 3-12 [facility] Comment on above: Performed By: #### P T, CMPX, CDP #### [address] [address] Call Box Wirer: Sarath Olivera MD Neutrophil (Seg) 82 % High 36-65 [facility] Comment on above: Performed By: #### P T, CMPX, CDP #### [facility] [address] [place] [address] 8[address]37 Call Box Wirer: Sarath Olivera MD NRBC Automated 0.0 per 100 WBC Normal 0.0 [facility] Comment on above: Performed By: #### P T, CMPX, CDP #### [facility] [address] [place] [address] 41457 Call Box Wirer: Sarath Olivera MD Platelet mean volume (Bld) [Entitic vol] 11.2 fL Normal 8.1-13.5 [facility] Comment on above: Performed By: #### P T, CMPX, CDP #### [address] [address] Call Box Wirer: Sarath Olivera MD Platelets (Bld) [#/Vol] 254 10*3/uL Normal 138-453 [facility] Comment on above: Performed By: #### P T, CMPX, CDP #### [address] [address] Call Box Wirer: Sarath Olivera MD RBC (Bld) [#/Vol] 3.85 10*6/uL Low 3.95-5.11 [facility] Comment on above: Performed By: #### P T, CMPX, CDP #### [facility] [address] [place] [address] 56673 Call Box Wirer: Sarath Olivera MD RBC morphology finding Nom (Bld) ANISOCYTOSIS PRESENT Normal [facility] Comment on above: Performed By: #### P T, CMPX, CDP #### [address] [address] Call Box Wirer: Sarath Olivera MD WBC (Bld) [#/Vol] 11.5 10*3/uL High 3.5-11.3 [facility] Comment on above: Performed By: #### P T, CMPX, CDP #### [facility] [address] [place] [address] 83097 Call Box Wirer: Sarath Olivera MD Comp Metabolic Pr/rfx MGon 0 - Albumin [Mass/Vol] 3.6 g/dL Normal 3.5-5.2 [facility] Comment on above: Performed By: #### P T, CMPX, CDP #### [address] [address] Call Box Wirer: Sarath Olivera MD Albumin/Glob Ratio 1.0 Normal 1.0-2.5 [facility] Comment on above: Performed By: #### P T, CMPX, CDP #### [address] [address] Call Box Wirer: Sarath Olivera MD Alkaline Phos 131 U/L High 35-104 [facility] Comment on above: Performed By: #### P T, CMPX, CDP #### [facility] [address] [place] [address] 57242 Call Box Wirer: Sarath Olivera MD ALT [Catalytic activity/Vol] 7 U/L Low 10-35 [facility] Comment on above: Performed By: #### P T, CMPX, CDP #### [facility] [address] [place] [address] 91708 Call Box Wirer: Sarath Olivera MD Anion gap [Moles/Vol] 13 mmol/L Normal 9-16 [facility] Comment on above: Performed By: #### P T, CMPX, CDP #### [facility] [address] [place] [address] 22703 Call Box Wirer: Sarath Olivera MD AST [Catalytic activity/Vol] 26 U/L Normal 10-35 [facility] Comment on above: Performed By: #### P T, CMPX, CDP #### [facility] [address] [place] [address] 51277 Call Box Wirer: Sarath Olivera MD Bilirubin [Mass/Vol] 0.5 mg/dL Normal 0.00-1.[address] [facility] Comment on above: Performed By: #### P T, CMPX, CDP #### [facility] [address] [place] [address] 83510 Call Box Wirer: Sarath Olivera MD Calcium [Mass/Vol] 9.0 mg/dL Normal 8.6-10.4 [facility] Comment on above: Performed By: #### P T, CMPX, CDP #### [facility] [address] [place] [address] 42718 Call Box Wirer: Sarath Olivera MD Chloride [Moles/Vol] 103 mmol/L Normal 98-[address] [facility] Comment on above: Performed By: #### P T, CMPX, CDP #### [facility] [address] [place] [address] 97294 Call Box Wirer: Sarath Olivera MD CO2 [Moles/Vol] 27 mmol/L Normal 20-31 [facility] Comment on above: Performed By: #### P T, CMPX, CDP #### [facility] [address] [place] [address] 32683 Call Box Wirer: Sarath Olivera MD Creatinine [Mass/Vol] 0.9 mg/dL Normal 0.50-0.90 [facility] Comment on above: Performed By: #### P T, CMPX, CDP #### [address] [address] Call Box Wirer: Sarath Olivera MD GFR/1.73 sq M.predicted among [...] Performed By: #### P T, CMPX, CDP #### [facility] [address] [place] [address] 70708 Call Box Wirer: Sarath Olivera MD Glucose [Mass/Vol] 240 mg/dL High 74-99 [facility] Comment on above: Performed By: #### P T, CMPX, CDP #### [facility] [address] [place] [address] 93337 Call Box Wirer: Sarath Olivera MD Potassium [Moles/Vol] 4.4 mmol/L Normal 3.7-5.3 [facility] Comment on above: Performed By: #### P T, CMPX, CDP #### [facility] [address] [place] [address] 14690 Call Box Wirer: Sarath Olivera MD Protein [Mass/Vol] 6.4 g/dL Low 6.6-8.7 [facility] Comment on above: Performed By: #### P T, CMPX, CDP #### [facility] [address] [place] [address] 12605 Call Box Wirer: Sarath Olivera MD Sodium [Moles/Vol] 143 mmol/L Normal 136-145 [facility] Comment on above: Performed By: #### P T, CMPX, CDP #### [facility] [address] [place] [address]204 Call Box Wirer: Sarath Olivera MD Urea nitrogen [Mass/Vol] 10 mg/dL Normal 8-23 [facility] Comment on above: Performed By: #### P T, CMPX, CDP #### [facility] [address] [place] [address] 17670 Call Box Wirer: Sarath Olivera MD PTon 02-18-2024 INR Coag (PPP) [Relative time] 1.4 {INR} Normal [facility] Comment on above: Result Comment: Therapeutic Range: Moderate Anticoagulant Intensity: INR = 2.0-3.0 High Anticoagulant Intensity: INR = 2.5-3.5 Performed By: #### P T, CMPX, CDP #### [facility] [address] [place] [address] 87172 Call Box Wirer: Sarath Olivera MD PT Coag (PPP) [Time] 17.1 s High 11.7-14.[address] [facility] Comment on above: Performed By: #### P T, CMPX, CDP #### [facility] [address] [place] [address] 10152 Call Box Wirer: Sarath Olivera MD Type + Screenon 02-18-2024 Type + Screen Sample Expiration 02/20/2024,2359 Arm Band Number [id number] ABO/Rh(D) O POSITIVE Antibody Screen NEGATIVE Unit Number [id number] Blood Component Type Leukocyte Reduced Red Cell Unit Division 00 Status of Unit REL FROM ALLOC Transfusion Status OK TO TRANSFUSE Crossmatch Result COMPATIBLE Unit Number [id number] Blood Component Type Leukocyte Reduced Red Cell Unit Division 00 Status of Unit REL FROM ALLOC Transfusion Status OK TO TRANSFUSE Crossmatch Result COMPATIBLE Normal [facility] Comment on above: Performed By: #### P T, CMPX, CDP #### [address] [address] Call Box Wirer: Sarath Olivera MD XR SHOULDER LEFT (MIN [...] sec Performed By: #### P T, PTT #### [facility] [address] [place] [address] Call Box Wirer: Sarath Olivera MD aPTT Coag (Bld) [Time] 30.9 s Normal 23.0-36.5 [facility] Comment on above: Result Comment: IV Heparin Therapy Range: 66.0-92.0 sec Performed By: #### T FFP #### [address] [address] Call Box Wirer: Sarath Olivera MD FFP, Transfuseon 02-17-2024 FFP, Transfuse Unit Number [id number] Blood Component Type FRESH PLASMA Unit Division 00 Status of Unit TRANSFUSED [facility] Comment on above: Performed By: #### T FFP #### [place] [address] Call Box Wirer: Sarath Olivera MD FFP, Transfuse Unit Number [id number] Blood Component Type FRESH PLASMA Unit Division 00 Status of Unit TRANSFUSED [facility] Status [facility] Comment on above: Performed By: #### P T, CMPX, CDP #### [place] [address] Call Box Wirer: Sarath Olivera MD PTon 02-17-2024 INR Coag (PPP) [Relative time] 1.5 {INR} Normal [facility] Comment on above: Result Comment: Therapeutic Range: Moderate Anticoagulant Intensity: INR = 2.0-3.0 High Anticoagulant Intensity: INR = 2.5-3.5 Performed By: #### P T, PTT #### [place] [address] Call Box Wirer: Sarath Olivera MD PT Coag (PPP) [Time] 17.4 s High 11.7-14.[address] [facility] Comment on above: Performed By: #### P T, PTT #### [place] [address] Call Box Wirer: Sarath Olivera MD INR Coag (PPP) [Relative time] 1.7 {INR} Normal [facility] Comment on above: Result Comment: Therapeutic Range: Moderate Anticoagulant Intensity: INR = 2.0-3.0 High Anticoagulant Intensity: INR = 2.5-3.5 Performed By: #### T FFP #### [facility] [address] [place] [address] Call Box Wirer: Sarath Olivera MD PT Coag (PPP) [Time] 19.8 s High 11.7-14.[address] [facility] Comment on above: Performed By: #### T FFP #### [facility] [address] [place], [place] [phone] Call Box Wirer: Sarath Olivera MD PT (Whole Blood)on 4 Intl. Normal. Ratio 2.0 Normal [facility] Comment on above: Result Comment: Therapeutic Range: Moderate Anticoagulant Intensity: INR = 2.0-3.0 High Anticoagulant Intensity: INR = 2.5-3.5 PT Coag (PPP) [Time] 23.6 s High 10.4-14.[address] [facility] CBC with Auto Differentialon 02-02-2024 Basophils (Bld) [#/Vol] [facility] Basophils/100 WBC (Bld) 0 % 0 - 2 % [facility] Eosinophils (Bld) [#/Vol] 0.08 10*3/uL [facility] [place] [facility] Eosinophils/100 WBC (Bld) 1 % 1 - 4 % [facility] [place] [facility] Erythrocyte distribution width (RBC) [Ratio] 16.1 % High 11.8 - 14.4 % [facility] Hematocrit (Bld) [Volume fraction] 33.7 % Low 36.3 - 47.1 % [facility] [place] [facility] Hemoglobin (Bld) [Mass/Vol] 10.4 g/dL Low 11.9 - 15.1 g/dL [facility] [place] [facility] Immature granulocytes (Bld) [#/Vol] [facility] Immature granulocytes/100 WBC (Bld) 0 % 0 [facility] [place] [facility] Interpretation and review of laboratory results Abnormal [facility] [place] [facility] Lymphocytes/100 WBC (Bld) 34 % 24 - 43 % [facility] [place] [facility] Lymphocytes/100 WBC (Bld) 1.89 % [facility] [place] [facility] MCH (RBC) [Entitic mass] 30.6 pg 25.2 - 33.5 pg [facility] MCHC (RBC) [Mass/Vol] 30.9 g/dL 28.4 - 34.8 g/dL [facility] MCV (RBC) [Entitic vol] 99.1 fL 82.6 - 102.9 fL [facility] Monocytes/100 WBC (Bld) 8 % 3 - 12 % [facility] Monocytes/100 WBC (Bld) 0.44 % [facility] Neutrophils/100 WBC (Bld) 57 % 36 - 65 % [facility] Nucleated RBC/100 WBC (Bld) [Ratio] 0.0 % 0.0 per 100 WBC [facility] Platelet mean volume (Bld) [Entitic vol] 11.6 fL 8.1 - 13.5 fL [facility] Platelets (Bld) [#/Vol] 250 10*3/uL [facility] RBC (Bld) [#/Vol] 3.40 10*6/uL Low 3.95 - 5.1 1 m/uL [facility] Segmented neutrophils/100 WBC (Bld) 3.17 % [facility] WBC other (Bld) [#/Vol] 5.6 [facility] CBC with Diffon 02-02-2024 Abs. Basophil <0.03 Normal 0.00-0.20 [facility] Comment on above: Performed By: #### C P, CDP #### [facility] [address] [place] [address] [place] [address] Call Box Wirer: Concepción De La Torre MD Abs.Imm.Granulocyte <0.03 Normal 0.00-0.30 [facility] Comment on above: Performed By: #### C P, CDP #### [address] [place] [address] Call Box Wirer: Concepción De La Torre MD Abs.Neutrophil (Seg) 3.17 k/uL Normal 1.50-8.10 [facility] Comment on above: Performed By: #### C P, CDP #### [facility] [address] [place] [address] Dr. Mendez, [facility] Call Box Wirer: Concepción De La Torre MD Basophils/100 WBC (Bld) 0 % Normal 0-2 [facility] Comment on above: Performed By: #### C P, CDP #### [address] [place], [place] [phone] Call Box Wirer: Concepción De La Torre MD Eosinophils (Bld) [#/Vol] 0.08 10*3/uL Normal 0.00-0.44 [facility] Comment on above: Performed By: #### C P, CDP #### [address] [place]endez, [place] [address] Call Box Wirer: Concepción De La Torre MD Eosinophils/100 WBC (Bld) 1 % Normal 1-4 [facility] Comment on above: Performed By: #### C P, CDP #### [address] Mendez, [facility]83 Call Box Wirer: Concepción De La Torre MD Erythrocyte distribution width (RBC) [Ratio] 16.1 % High 11.8-14.4 [facility] Comment on above: Performed By: #### C P, CDP #### [address] Mendez, [facility]83 Call Box Wirer: Concepción De La Torre MD Hematocrit (Bld) [Volume fraction] 33.7 % Low 36.3-47.1 [facility] Comment on above: Performed By: #### C P, CDP #### [address] Mendez, [facility]83 Call Box Wirer: Concepción De La Torre MD Hemoglobin (Bld) [Mass/Vol] 10.4 g/dL Low 11.9-15.1 [facility] Comment on above: Performed By: #### C P, CDP #### [address] Mendez, [facility]83 Call Box Wirer: Concepción De La Torre MD Immature granulocytes/100 WBC (Bld) 0 % Normal 0 [facility] Comment on above: Performed By: #### C P, CDP #### [facility] [address] [place], [place] [phone] Call Box Wirer: Concepción De La Torre MD Lymphocytes (Bld) [#/Vol] 1.89 10*3/uL Normal 1.10-3.70 [facility] Comment on above: Performed By: #### C P, CDP #### [facility] [address] [place] [address] Call Box Wirer: Concepción De La Torre MD Lymphocytes/100 WBC (Bld) 34 % Normal 24-43 [facility] Comment on above: Performed By: #### C P, CDP #### [address] [place], [place] [phone] Call Box Wirer: Concepción De La Torre MD MCH (RBC) [Entitic mass] 30.6 pg Normal 25.2-33.5 [facility] Comment on above: Performed By: #### C P, CDP #### [address] [place] [address] Call Box Wirer: Concepción De La Torre MD MCHC (RBC) [Mass/Vol] 30.9 g/dL Normal 28.4-34.8 [facility] Comment on above: Performed By: #### C P, CDP #### [facility] [address] [place] [address] Dr. [place], [place] [phone] Call Box Wirer: Concepción De La Torre MD MCV (RBC) [Entitic vol] 99.1 fL Normal 82.6-102.9 [facility] Comment on above: Performed By: #### C P, CDP #### [address] [place] [address] Call Box Wirer: Concepción De La Torre MD Monocytes (Bld) [#/Vol] 0.44 10*3/uL Normal 0.10-1.20 [facility] Comment on above: Performed By: #### C P, CDP #### [facility] [address] [place], [place] [phone] Call Box Wirer: Concepción De La Torre MD Monocytes/100 WBC (Bld) 8 % Normal 3-12 [facility] Comment on above: Performed By: #### C P, CDP #### [facility] [address] [place], [facility]83 Call Box Wirer: Concepción De La Torre MD Neutrophil (Seg) 57 % Normal 36-65 [facility] Comment on above: Performed By: #### C P, CDP #### [facility] [address] [place], [place] [phone] Call Box Wirer: Concepción De La Torre MD NRBC Automated 0.0 per 100 WBC Normal 0.0 [facility] Comment on above: Performed By: #### C P, CDP #### [facility] [address] [place], [facility]83 Call Box Wirer: Concepción De La Torre MD Platelet mean volume (Bld) [Entitic vol] 11.6 fL Normal 8.1-13.5 [facility] Comment on above: Performed By: #### C P, CDP #### [address] [place], [place] [phone] Call Box Wirer: Concepción De La Torre MD Platelets (Bld) [#/Vol] 250 10*3/uL Normal 138-453 [facility] Comment on above: Performed By: #### C P, CDP #### [facility] [address] [place], [place] [phone] Call Box Wirer: Concepción De La Torre MD RBC (Bld) [#/Vol] 3.40 10*6/uL Low 3.95-5.11 [facility] Comment on above: Performed By: #### C P, CDP #### [facility] [address] [place], [place] [phone] Call Box Wirer: Concepción De La Torre MD WBC (Bld) [#/Vol] 5.6 10*3/uL Normal 3.5-11.3 [facility] Comment on above: Performed By: #### C P, CDP #### [facility] [address] [place], [place] [phone] Call Box Wirer: Concepción De La Torre MD Comp Metabolic Profon 2023 Albumin [Mass/Vol] 2.7 g/dL Low 3.5-5.2 [facility] Comment on above: Performed By: #### C P, CDP #### [facility] [address] [place] [address] Dr. [place], [place] [phone] Call Box Wirer: Concepción De La Torre MD Albumin/Glob Ratio 1.0 Normal 1.0-2.5 [facility] Comment on above: Performed By: #### C P, CDP #### [facility] [address] [place] [address] Dr. [place], [place] [phone] Call Box Wirer: Concepción De La Torre MD Alkaline Phos 116 U/L High 35-104 [facility] Comment on above: Performed By: #### C P, CDP #### [facility] [address] [place] [address] Dr[address] [place], [place] [phone] Call Box Wirer: Concepción De La Torre MD ALT [Catalytic activity/Vol] 10 U/L Normal 5-33 [facility] Comment on above: Performed By: #### C P, CDP #### [facility] [address] [place], [place] [phone] Call Box Wirer: Concepción De La Torre MD Anion gap [Moles/Vol] 11 mmol/L Normal 9-17 [facility] Comment on above: Performed By: #### C P, CDP #### [facility] [address] [place], [place] [phone] Call Box Wirer: Concepción De La Torre MD AST [Catalytic activity/Vol] 21 U/L Normal <32 [facility] Comment on above: Performed By: #### C P, CDP #### [facility] [address] [place], [place] [phone] Call Box Wirer: Concepción De La Torre MD Bilirubin [Mass/Vol] 0.4 mg/dL Normal 0.3-1.2 [facility] Comment on above: Performed By: #### C P, CDP #### [facility] [address] [place], [place] [phone] Call Box Wirer: Concepción De La Torre MD BUN/CRE Ratio 15 Normal 9-20 [facility] Comment on above: Performed By: #### C P, CDP #### [facility] [address] [place], [place] [phone] Call Box Wirer: Concepción De La Torre MD Calcium [Mass/Vol] 7.8 mg/dL Low 8.6-10.4 [facility] Comment on above: Performed By: #### C P, CDP #### [facility] [address] [place] [address] Dr[place], [place] [phone] Call Box Wirer: Concepción De La Torre MD Chloride [Moles/Vol] 108 mmol/L High 98-107 [facility] Comment on above: Performed By: #### C P, CDP #### [facility] [address] [place] [address] Dr[address] [place], [place] [phone] Call Box Wirer: Concepción De La Torre MD CO2 [Moles/Vol] 24 mmol/L Normal 20-31 [facility] Comment on above: Performed By: #### C P, CDP #### [facility] [address] [place], [place] [phone] Call Box Wirer: Concepción De La Torre MD Creatinine [Mass/Vol] 0.8 mg/dL Normal 0.5-0.9 [facility] Comment on above: Performed By: #### C P, CDP #### [facility] [address] [place] [address] Call Box Wirer: Concepción De La Torre MD GFR/1.73 sq M.predicted among non-blacks MDRD (S/P/Bld) [Vol rate/Area] 73 mL/min/{1.73_m2} Normal >60 [facility] Comment on above: Result Comment: These results [...] Performed By: #### C P, CDP #### [address] [place] [address] Call Box Wirer: Concepción De La Torre MD Glucose [Mass/Vol] 123 mg/dL High 70-99 [facility] Comment on above: Performed By: #### C P, CDP #### [address] [place] [address] Call Box Wirer: Concepción De La Torre MD Potassium [Moles/Vol] 4.0 mmol/L Normal 3.7-5.3 [facility] Comment on above: Performed By: #### C P, CDP #### [address] [place] [address] Call Box Wirer: Concepción De La Torre MD Protein [Mass/Vol] 5.4 g/dL Low 6.4-8.3 [facility] Comment on above: Performed By: #### C P, CDP #### [facility] [address] [place] [address] [place] [address] Call Box Wirer: Concepción De La Torre MD Sodium [Moles/Vol] 143 mmol/L Normal 135-144 [facility] Comment on above: Performed By: #### C P, CDP #### [facility] [address] [place] [address] [place] [address] Call Box Wirer: Concepción De La Torre MD Urea nitrogen [Mass/Vol] 12 mg/dL Normal 8-23 [facility] Comment on above: Performed By: #### C P, CDP #### [facility] [address] [place] [address] Call Box Wirer: Concepción De La Torre MD Comprehensive Metabolic Pane marivel 02-02-2024 Albumin [Mass/Vol] 2.7 g/dL Low 3.5 - 5.2 g/dL [facility] Albumin/Globulin [Mass ratio] 1.0 {ratio} 1.0 - 2.5 [facility] ALP [Catalytic activity/Vol] 116 U/L High 35 - 104 U/L [facility] ALT [Catalytic activity/Vol] 10 U/L 5 - 33 U/L [facility] Anion gap [Moles/Vol] 11 mmol/L 9 - 17 mmol/L [facility] AST [Catalytic activity/Vol] 21 U/L NINF - 32 U/L [facility] Bilirubin [Mass/Vol] 0.4 mg/dL 0.3 - 1 .2 mg/dL [facility] Calcium [Mass/Vol] 7.8 mg/dL Low 8.6 - 10. 4 mg/dL [facility] Chloride [Moles/Vol] 108 mmol/L High 98 - 10 7 mmol/L [facility] CO2 [Moles/Vol] 24 mmol/L 20 - 31 mmol/L [facility] Creatinine [Mass/Vol] 0.8 mg/dL 0.5 - 0.9 mg/dL [facility] Est, Glom Filt Rate 73 - PINF [facility] Comment on above: These results [...] 123 mg/dL High 70 - 99 mg/dL [facility] Interpretation and review of laboratory results Abnormal [facility] Potassium [Moles/Vol] 4.0 mmol/L 3.7 - 5.3 mmol/L [facility] Protein [Mass/Vol] 5.4 g/dL Low 6.4 - 8.3 g/dL [facility] Sodium [Moles/Vol] 143 mmol/L 135 - 144 mmol/L [facility] Urea nitrogen [Mass/Vol] 12 mg/dL 8 - 23 mg/dL [facility] Urea nitrogen/Creatinine [Mass ratio] 15 mg/mg [...] ORDERING SYSTEM PROVIDED HISTORY: SDH (subdural hematoma) ([facility]) TECHNOLOGIST PROVIDED HISTORY: F/U SDH FINDINGS: BRAIN/VENTRICLES: [...] Renny Rodriguez MD 01/27/24 Final result Normal [facility] CBC with Diffon 01-26-2024 Abs. Basophil <0.03 Normal 0.00-0.20 [facility] Comment on above: Performed By: #### C DP, CMPF #### [facility] [address] [place] [address] Call Box Wirer: Concepción De La Torre MD Abs.Imm.Granulocyte 0.03 k/uL Normal 0.00-0.30 [facility] Comment on above: Performed By: #### C DP, CMPF #### [facility] [address] [place] [address] [place] [address] Call Box Wirer: Concepción De La Torre MD Abs.Neutrophil (Seg) 2.15 k/uL Normal 1.50-8.10 [facility] Comment on above: Performed By: #### C DP, CMPF #### [address] [place], [place] [phone] Call Box Wirer: Concepción De La Torre MD Basophils/100 WBC (Bld) 1 % Normal 0-2 [facility] Comment on above: Performed By: #### C DP, CMPF #### [address] [place], [facility]83 Call Box Wirer: Concepción De La Torre MD Eosinophils (Bld) [#/Vol] 0.04 10*3/uL Normal 0.00-0.44 [facility] Comment on above: Performed By: #### C SCHUYLER, CMPF #### [address] [place], [place] [phone] Call Box Wirer: Concepción De La Torre MD Eosinophils/100 WBC (Bld) 1 % Normal 1-4 [facility] Comment on above: Performed By: #### C DP, CMPF #### [address] [place], [facility]83 Call Box Wirer: Concepción De La Torre MD Erythrocyte distribution width (RBC) [Ratio] 16.3 % High 11.8-14.4 [facility] Comment on above: Performed By: #### C DP, CMPF #### [address] [place], [place] [phone] Call Box Wirer: Concepción De La Torre MD Hematocrit (Bld) [Volume fraction] 30.9 % Low 36.3-47.1 [facility] Comment on above: Performed By: #### C DP, CMPF #### [facility] [address] [place] [address] Dr. [place], [place] [address] Call Box Wirer: Concepción De La Torre MD Hemoglobin (Bld) [Mass/Vol] 9.7 g/dL Low 11.9-15.1 [facility] Comment on above: Performed By: #### C DP, CMPF #### [facility] [address] [place] [address] Dr. [place], [place] [address] Call Box Wirer: Concepción De La Torre MD Immature granulocytes/100 WBC (Bld) 1 % High 0 [facility] Comment on above: Performed By: #### C DP, CMPF #### [address] [place], [facility]83 Call Box Wirer: Concepción De La Torre MD Lymphocytes (Bld) [#/Vol] 0.79 10*3/uL Low 1.10-3.70 [facility] Comment on above: Performed By: #### C DP, CMPF #### [address] [place], [facility]83 Call Box Wirer: Concepción De La Torre MD Lymphocytes/100 WBC (Bld) 22 % Low 24-43 [facility] Comment on above: Performed By: #### C DP, CMPF #### [facility] [address] [place] [address] Dr. [place], [facility]83 Call Box Wirer: Concepción De La Torre MD MCH (RBC) [Entitic mass] 31.4 pg Normal 25.2-33.5 [facility] Comment on above: Performed By: #### C DP, CMPF #### [facility] [address] [place] [address] [place] [address] Call Box Wirer: Concepción De La Torre MD MCHC (RBC) [Mass/Vol] 31.4 g/dL Normal 28.4-34.8 [facility] Comment on above: Performed By: #### C DP, CMPF #### [facility] [address] [place], [place] [phone] Call Box Wirer: Concepción De La Torre MD MCV (RBC) [Entitic vol] 100.0 fL Normal 82.6-102.9 [facility] Comment on above: Performed By: #### C DP, CMPF #### [facility] [address] [place], [place] 2020383 Call Box Wirer: Concepción De La Torre MD Monocytes (Bld) [#/Vol] 0.49 10*3/uL Normal 0.10-1.20 [facility] Comment on above: Performed By: #### C DP, CMPF #### [address] [place], [place] [phone] Call Box Wirer: Concepción De La Torre MD Monocytes/100 WBC (Bld) 14 % High 3-12 [facility] Comment on above: Performed By: #### C DP, CMPF #### [address] [place], [place] [phone] Call Box Wirer: Concepción De La Torre MD Neutrophil (Seg) 61 % Normal 36-65 [facility] Comment on above: Performed By: #### C DP, CMPF #### [address] [place] [address] Call Box Wirer: Concepción De La Torre MD NRBC Automated 0.0 per 100 WBC Normal 0.0 [facility] Comment on above: Performed By: #### C DP, CMPF #### [facility] [address] [place] [address] Dr. [place], [place] [phone] Call Box Wirer: Concepción De La Torre MD Platelet mean volume (Bld) [Entitic vol] 11.5 fL Normal 8.1-13.5 [facility] Comment on above: Performed By: #### C DP, CMPF #### [address] [place], [place] [phone] Call Box Wirer: Concepción De La Torre MD Platelets (Bld) [#/Vol] 271 10*3/uL Normal 138-453 [facility] Comment on above: Performed By: #### C DP, CMPF #### [facility] [address] [place], [place] [phone] Call Box Wirer: Concepción De La Torre MD RBC (Bld) [#/Vol] 3.09 10*6/uL Low 3.95-5.11 [facility] Comment on above: Performed By: #### C DP, CMPF #### [facility] [address] [place], [place] [phone] Call Box Wirer: Concepción De La Torre MD WBC (Bld) [#/Vol] 3.5 10*3/uL Normal 3.5-11.3 [facility] Comment on above: Performed By: #### C DP, CMPF #### [facility] [address] [place], [place] [phone] Call Box Wirer: Concepción De La Torre MD Comp Metabol,Fastingon 01-25 -2023 Albumin [Mass/Vol] 2.6 g/dL Low 3.5-5.2 [facility] Comment on above: Performed By: #### C DP, CMPF #### [facility] [address] [place], [place] [phone] Call Box Wirer: Concepción De La Torre MD Albumin/Glob Ratio 1.1 Normal 1.0-2.5 [facility] Comment on above: Performed By: #### C DP, CMPF #### [facility] [address] [place], [place] [phone] Call Box Wirer: Concepción De La Torre MD Alkaline Phos 92 U/L Normal 35-104 [facility] Comment on above: Performed By: #### C DP, CMPF #### [facility] [address] [place], [place] [phone] Call Box Wirer: Concepción De La Torre MD ALT [Catalytic activity/Vol] 18 U/L Normal 5-33 [facility] Comment on above: Performed By: #### C DP, CMPF #### [facility] [address] [place], [place] [phone] Call Box Wirer: Concepción De La Torre MD Anion gap [Moles/Vol] 8 mmol/L Low 9-17 [facility] Comment on above: Performed By: #### C DP, CMPF #### [facility] [address] [place], [place] [phone] Call Box Wirer: Concepción De La Torre MD AST [Catalytic activity/Vol] 23 U/L Normal <32 [facility] Comment on above: Performed By: #### C DP, CMPF #### [address] [place], [place] [phone] Call Box Wirer: Concepción De La Torre MD Bilirubin [Mass/Vol] 0.5 mg/dL Normal 0.3-1.2 [facility] Comment on above: Performed By: #### C DP, CMPF #### [facility] [address] [place] [address] [place]. [place], [place] [phone] Call Box Wirer: Concepción De La Torre MD BUN/CRE Ratio 19 Normal 9-20 [facility] Comment on above: Performed By: #### C DP, CMPF #### [facility] [address] [place] [address] [place]. [place], [place] [phone] Call Box Wirer: Concepción De La Torre MD Calcium [Mass/Vol] 7.9 mg/dL Low 8.6-10.4 [facility] Comment on above: Performed By: #### C DP, CMPF #### [facility] [address] [place] [address] [place]. [place], [place] [phone] Call Box Wirer: Concepción De La Torre MD Chloride [Moles/Vol] 105 mmol/L Normal 98-107 [facility] Comment on above: Performed By: #### C DP, CMPF #### [facility] [address] [place] [address] [place] [address] Call Box Wirer: Concepción De La Torre MD CO2 [Moles/Vol] 27 mmol/L Normal 20-31 [facility] Comment on above: Performed By: #### C DP, CMPF #### [facility] [address] [place] [address] [place] [address] Call Box Wirer: Concepción De La Torre MD Creatinine [Mass/Vol] 0.8 mg/dL Normal 0.5-0.9 [facility] Comment on above: Performed By: #### C DP, CMPF #### [address] [place] [address] Call Box Wirer: Concepción De La Torre MD GFR/1.73 sq M.predicted among non-blacks MDRD (S/P/Bld) [Vol rate/Area] 73 mL/min/{1.73_m2} Normal >60 [facility] Comment on above: Result Comment: These results [...] Performed By: #### C DP, CMPF #### [facility] [address] [place] [address] [place] [address] Call Box Wirer: Concepción De La Torre MD Glucose [Mass/Vol] 90 mg/dL Normal 70-99 [facility] Comment on above: Performed By: #### C DP, CMPF #### [address] [place] [address] Call Box Wirer: Concepción De La Torre MD Potassium [Moles/Vol] 4.1 mmol/L Normal 3.7-5.3 [facility] Comment on above: Performed By: #### C DP, CMPF #### [facility] [address] [place], [place] 5383283 Call Box Wirer: Concepción De La Torre MD Protein [Mass/Vol] 5.0 g/dL Low 6.4-8.3 [facility] Comment on above: Performed By: #### C DP, CMPF #### [facility] [address] [place], [place] 8054983 Call Box Wirer: Concepción De La Torre MD Sodium [Moles/Vol] 140 mmol/L Normal 135-144 [facility] Comment on above: Performed By: #### C DP, CMPF #### [address] [place], [place] [phone] Call Box Wirer: Concepción De La Torre MD Urea nitrogen [Mass/Vol] 15 mg/dL Normal 8-23 [facility] Comment on above: Performed By: #### C DP, CMPF #### [address] [place], [place] [phone] Call Box Wirer: Concepción De La Torre MD CBC with Diffon 01-19-2024 Abs. Basophil 0.03 k/uL Normal 0.00-0.20 [facility] Comment on above: Performed By: #### C DP, CP #### [address] [place], [place] 3607783 Call Box Wirer: Concepción De La Torre MD Abs.Imm.Granulocyte 0.05 k/uL Normal 0.00-0.30 [facility] Comment on above: Performed By: #### C DP, CP #### [facility] [address] [place] [address] [place]. [place], [place] [phone] Call Box Wirer: Concepción De La Torre MD Abs.Neutrophil (Seg) 5.33 k/uL Normal 1.50-8.10 [facility] Comment on above: Performed By: #### C DP, CP #### [facility] [address] [place] [address] [place]. [place], [place] [phone] Call Box Wirer: Concepción De La Torre MD Basophils/100 WBC (Bld) 0 % Normal 0-2 [facility] Comment on above: Performed By: #### C DP, CP #### [facility] [address] [place] [address] [place], [place] [phone] Call Box Wirer: Concepción De La Torre MD Eosinophils (Bld) [#/Vol] 0.07 10*3/uL Normal 0.00-0.44 [facility] Comment on above: Performed By: #### C DP, CP #### [facility] [address] [place] [address] [place] [address] Call Box Wirer: Concepción De La Torre MD Eosinophils/100 WBC (Bld) 1 % Normal 1-4 [facility] Comment on above: Performed By: #### C DP, CP #### [address] [place], [facility]83 Call Box Wirer: Concepción De La Torre MD Erythrocyte distribution width (RBC) [Ratio] 16.6 % High 11.8-14.4 [facility] Comment on above: Performed By: #### C DP, CP #### [address] [place], [place] [phone] Call Box Wirer: Concepción De La Torre MD Hematocrit (Bld) [Volume fraction] 30.7 % Low 36.3-47.1 [facility] Comment on above: Performed By: #### C DP, CP #### [address] [place], [facility]83 Call Box Wirer: Concepción De La Torre MD Hemoglobin (Bld) [Mass/Vol] 9.7 g/dL Low 11.9-15.1 [facility] Comment on above: Performed By: #### C DP, CP #### [address] [place], [place] [phone] Call Box Wirer: Concepción De La Torre MD Immature granulocytes/100 WBC (Bld) 1 % High 0 [facility] Comment on above: Performed By: #### C DP, CP #### [address] [place] [address] Call Box Wirer: Concepción De La Torre MD Lymphocytes (Bld) [#/Vol] 1.11 10*3/uL Normal 1.10-3.70 [facility] Comment on above: Performed By: #### C DP, CP #### [address] [place], [facility]83 Call Box Wirer: Concepción De La Torre MD Lymphocytes/100 WBC (Bld) 15 % Low 24-43 [facility] Comment on above: Performed By: #### C DP, CP #### [address] [place], [facility]83 Call Box Wirer: Concepción De La Torre MD MCH (RBC) [Entitic mass] 31.1 pg Normal 25.2-33.5 [facility] Comment on above: Performed By: #### C DP, CP #### [address] [place], [facility]83 Call Box Wirer: Concepción De La Torre MD MCHC (RBC) [Mass/Vol] 31.6 g/dL Normal 28.4-34.8 [facility] Comment on above: Performed By: #### C DP, CP #### [address] [place], [facility]83 Call Box Wirer: Concepción De La Torre MD MCV (RBC) [Entitic vol] 98.4 fL Normal 82.6-102.9 [facility] Comment on above: Performed By: #### C DP, CP #### [address] [place] [address] Call Box Wirer: Concepción De La Torre MD Monocytes (Bld) [#/Vol] 0.95 10*3/uL Normal 0.10-1.20 [facility] Comment on above: Performed By: #### C DP, CP #### [facility] [address] [place], [place] [phone] Call Box Wirer: Concepción De La Torre MD Monocytes/100 WBC (Bld) 13 % High 3-12 [facility] Comment on above: Performed By: #### C DP, CP #### [facility] [address] [place], [place] [phone] Call Box Wirer: Concepción De La Torre MD Neutrophil (Seg) 71 % High 36-65 [facility] Comment on above: Performed By: #### C DP, CP #### [facility] [address] [place], [place] [phone] Call Box Wirer: Concepción De La Torre MD NRBC Automated 0.0 per 100 WBC Normal 0.0 [facility] Comment on above: Performed By: #### C DP, CP #### [facility] [address] [place], [place] [phone] Call Box Wirer: Concepción De La Torre MD Platelet mean volume (Bld) [Entitic vol] 11.9 fL Normal 8.1-13.5 [facility] Comment on above: Performed By: #### C DP, CP #### [address] [place], [place] [phone] Call Box Wirer: Concepción De La Torre MD Platelets (Bld) [#/Vol] 249 10*3/uL Normal 138-453 [facility] Comment on above: Performed By: #### C DP, CP #### [facility] [address] [place] [address] [place] [address] Call Box Wirer: Concepción De La Torre MD RBC (Bld) [#/Vol] 3.12 10*6/uL Low 3.95-5.11 [facility] Comment on above: Performed By: #### C DP, CP #### [facility] [address] [place], [place] [phone] Call Box Wirer: Concepción De La Torre MD WBC (Bld) [#/Vol] 7.5 10*3/uL Normal 3.5-11.3 [facility] Comment on above: Performed By: #### C DP, CP #### [facility] [address] [place], [place] [phone] Call Box Wirer: Concepción De La Torre MD Comp Metabolic Profon 2023 Albumin [Mass/Vol] 2.6 g/dL Low 3.5-5.2 [facility] Comment on above: Performed By: #### C DP, CP #### [facility] [address] [place], [place] 0250083 Call Box Wirer: Concepción De La Torre MD Albumin/Glob Ratio 1.2 Normal 1.0-2.5 [facility] Comment on above: Performed By: #### C DP, CP #### [facility] [address] [place] [address] Call Box Wirer: Concepción De La Torre MD Alkaline Phos 78 U/L Normal 35-104 [facility] Comment on above: Performed By: #### C DP, CP #### [facility] [address] [place], [place] [phone] Call Box Wirer: Concepción De La Torre MD ALT [Catalytic activity/Vol] 42 U/L High 5-33 [facility] Comment on above: Performed By: #### C DP, CP #### [facility] [address] [place] [address] [address] Call Box Wirer: Concepción De La Torre MD Anion gap [Moles/Vol] 5 mmol/L Low 9-17 [facility] Comment on above: Performed By: #### C DP, CP #### [facility] [address] [place], [place] [phone] Call Box Wirer: Concepción De La Torre MD AST [Catalytic activity/Vol] 43 U/L High <32 [facility] Comment on above: Performed By: #### C DP, CP #### [facility] [address] [place], [place] [phone] Call Box Wirer: Concepción De La Torre MD Bilirubin [Mass/Vol] 1.2 mg/dL Normal 0.3-1.2 [facility] Comment on above: Performed By: #### C DP, CP #### [facility] [address] [place], [place] [phone] Call Box Wirer: Concepción De La Torre MD BUN/CRE Ratio 27 High 9-20 [facility] Comment on above: Performed By: #### C DP, CP #### [facility] [address] [place], [place] [phone] Call Box Wirer: Concepción De La Torre MD Calcium [Mass/Vol] 7.6 mg/dL Low 8.6-10.4 [facility] Comment on above: Performed By: #### C DP, CP #### [facility] [address] [place] [address] Call Box Wirer: Concepción De La Torre MD Chloride [Moles/Vol] 100 mmol/L Normal 98-107 [facility] Comment on above: Performed By: #### C DP, CP #### [facility] [address] [place], [place] [phone] Call Box Wirer: Concepción De La Torre MD CO2 [Moles/Vol] 30 mmol/L Normal 20-31 [facility] Comment on above: Performed By: #### C DP, CP #### [facility] [address] [place] [address] Call Box Wirer: Concepción De La Torre MD Creatinine [Mass/Vol] 0.7 mg/dL Normal 0.5-0.9 [facility] Comment on above: Performed By: #### C DP, CP #### [facility] [address] [place], [place] [phone] Call Box Wirer: Concepción De La Torre MD GFR/1.73 sq M.predicted among non-blacks MDRD (S/P/Bld) [Vol rate/Area] 85 mL/min/{1.73_m2} Normal >60 [facility] Comment on above: Result Comment: These results [...] Performed By: #### C DP, CP #### [facility] [address] [place] [address] [place] [address] Call Box Wirer: Concepción De La Torre MD Glucose [Mass/Vol] 98 mg/dL Normal 70-99 [facility] Comment on above: Performed By: #### C DP, CP #### [address] [place] [address] Call Box Wirer: Concepción De La Torre MD Potassium [Moles/Vol] 3.8 mmol/L Normal 3.7-5.3 [facility] Comment on above: Performed By: #### C DP, CP #### [address] [place] [address] Call Box Wirer: Concepción De La Torre MD Protein [Mass/Vol] 4.8 g/dL Low 6.4-8.3 [facility] Comment on above: Performed By: #### C DP, CP #### [facility] [address] [place] [address] [place] [place], [place] [phone] Call Box Wirer: Concepción De La Torre MD Sodium [Moles/Vol] 135 mmol/L Normal 135-144 [facility] Comment on above: Performed By: #### C DP, CP #### [address] [place] [address] Call Box Wirer: Concepción De La Torre MD Urea nitrogen [Mass/Vol] 19 mg/dL Normal 8-23 [facility] Comment on above: Performed By: #### C DP, CP #### [facility] [address] [place] [address] Call Box Wirer: Concepción De La Torre MD CBC with Auto Differentialon 01-15-2024 Basophils (Bld) [#/Vol] 0.03 10*3/uL [facility] Basophils/100 WBC (Bld) 0 % 0 - 2 % [facility] Eosinophils (Bld) [#/Vol] 0.05 10*3/uL [facility] Eosinophils/100 WBC (Bld) 0 % Low 1 - 4 % [facility] Erythrocyte distribution width (RBC) [Ratio] 15.9 % High 11.8 - 14.4 % [facility] Hematocrit (Bld) [Volume fraction] 31.7 % Low 36.3 - 47.1 % [facility] Hemoglobin (Bld) [Mass/Vol] 10.3 g/dL Low 11.9 - 15.1 g/dL [facility] Immature granulocytes (Bld) [#/Vol] 0.09 10*3/uL [facility] Immature granulocytes/100 WBC (Bld) 1 % High 0 [facility] Interpretation and review of laboratory results Abnormal [facility] Lymphocytes/100 WBC (Bld) 7 % Low 24 - 43 % [facility] Lymphocytes/100 WBC (Bld) 0.83 % Low [facility] MCH (RBC) [Entitic mass] 31.1 pg 25.2 - 33.5 pg [facility] MCHC (RBC) [Mass/Vol] 32.5 g/dL 28.4 - 34.8 g/dL [facility] MCV (RBC) [Entitic vol] 95.8 fL 82.6 - 102.9 fL [facility] Monocytes/100 WBC (Bld) 11 % 3 - 12 % [facility] Monocytes/100 WBC (Bld) 1.30 % High [facility] Neutrophils/100 WBC (Bld) 81 % High 36 - 65 % [facility] Nucleated RBC/100 WBC (Bld) [Ratio] 0.0 % 0.0 per 100 WBC [facility] Platelet mean volume (Bld) [Entitic vol] 11.8 fL 8.1 - 13.5 fL [facility] Platelets (Bld) [#/Vol] 176 10*3/uL [facility] RBC (Bld) [#/Vol] 3.31 10*6/uL Low 3.95 - 5.1 1 m/uL [facility] Segmented neutrophils/100 WBC (Bld) 9.73 % High [facility] WBC other (Bld) [#/Vol] 12.0 High [facility] CBC with Diffon 01-15-2024 Abs. Basophil 0.03 k/uL Normal 0.00-0.20 [facility] Comment on above: Performed By: #### C SCHUYLER, CP #### [facility] [address] [place] [address] [place] [address] Call Box Wirer: Concepción De La Torre MD Abs.Imm.Granulocyte 0.09 k/uL Normal 0.00-0.30 [facility] Comment on above: Performed By: #### C SCHUYLER, CP #### [address] [place] [address] Call Box Wirer: Concepción De La Torre MD Abs.Neutrophil (Seg) 9.73 k/uL High 1.50-8.10 [facility] Comment on above: Performed By: #### C DP, CP #### [address] [place], [facility]83 Call Box Wirer: Concepción De La Torre MD Basophils/100 WBC (Bld) 0 % Normal 0-2 [facility] Comment on above: Performed By: #### C DP, CP #### [address] [place], [facility]83 Call Box Wirer: Concepción De La Torre MD Eosinophils (Bld) [#/Vol] 0.05 10*3/uL Normal 0.00-0.44 [facility] Comment on above: Performed By: #### C DP, CP #### [facility] [address] [place], [place] [address] Call Box Wirer: Concepción De La Torre MD Eosinophils/100 WBC (Bld) 0 % Low 1-4 [facility] Comment on above: Performed By: #### C DP, CP #### [facility] [address] [place], [place] [address] Call Box Wirer: Concepción De La Torre MD Erythrocyte distribution width (RBC) [Ratio] 15.9 % High 11.8-14.4 [facility] Comment on above: Performed By: #### C DP, CP #### [address] [place] [phone] Call Box Wirer: Concepción De La Torre MD Hematocrit (Bld) [Volume fraction] 31.7 % Low 36.3-47.1 [facility] Comment on above: Performed By: #### C DP, CP #### [address] [place], [facility]83 Call Box Wirer: Concepción De La Torre MD Hemoglobin (Bld) [Mass/Vol] 10.3 g/dL Low 11.9-15.1 [facility] Comment on above: Performed By: #### C DP, CP #### [address] [place], [place] [address] Call Box Wirer: Concepción De La Torre MD Immature granulocytes/100 WBC (Bld) 1 % High 0 [facility] Comment on above: Performed By: #### C DP, CP #### [address] [place] [phone] Call Box Wirer: Concepción De La Torre MD Lymphocytes (Bld) [#/Vol] 0.83 10*3/uL Low 1.10-3.70 [facility] Comment on above: Performed By: #### C DP, CP #### [facility] [address] [place], [place] [phone] Call Box Wirer: Concepción De La Torre MD Lymphocytes/100 WBC (Bld) 7 % Low 24-43 [facility] Comment on above: Performed By: #### C DP, CP #### [facility] [address] [place] [address] Call Box Wirer: Concepción De La Torre MD MCH (RBC) [Entitic mass] 31.1 pg Normal 25.2-33.5 [facility] Comment on above: Performed By: #### C DP, CP #### [facility] [address] [place] [address] Call Box Wirer: Concepción De La Torre MD MCHC (RBC) [Mass/Vol] 32.5 g/dL Normal 28.4-34.8 [facility] Comment on above: Performed By: #### C DP, CP #### [facility] [address] [place] [address] Dr. [place], [facility]83 Call Box Wirer: Concepción De La Torre MD MCV (RBC) [Entitic vol] 95.8 fL Normal 82.6-102.9 [facility] Comment on above: Performed By: #### C DP, CP #### [address] [place], [facility]83 Call Box Wirer: Concepción De La Torre MD Monocytes (Bld) [#/Vol] 1.30 10*3/uL High 0.10-1.20 [facility] Comment on above: Performed By: #### C DP, CP #### [facility] [address] [place], [place] [phone] Call Box Wirer: Concepción De La Torre MD Monocytes/100 WBC (Bld) 11 % Normal 3-12 [facility] Comment on above: Performed By: #### C DP, CP #### [facility] [address] [place], [facility]83 Call Box Wirer: Concepción De La Torre MD Neutrophil (Seg) 81 % High 36-65 [facility] Comment on above: Performed By: #### C DP, CP #### [facility] [address] [place], [place] [phone] Call Box Wirer: Concepción De La Torre MD NRBC Automated 0.0 per 100 WBC Normal 0.0 [facility] Comment on above: Performed By: #### C DP, CP #### [facility] [address] [place] [address] Call Box Wirer: Concepción De La Torre MD Platelet mean volume (Bld) [Entitic vol] 11.8 fL Normal 8.1-13.5 [facility] Comment on above: Performed By: #### C DP, CP #### [address] [place], [place] [phone] Call Box Wirer: Concepción De La Torre MD Platelets (Bld) [#/Vol] 176 10*3/uL Normal 138-453 [facility] Comment on above: Performed By: #### C DP, CP #### [address] [place], [place] [phone] ([address] Call Box Wirer: Concepción De La Torre MD RBC (Bld) [#/Vol] 3.31 10*6/uL Low 3.95-5.11 [facility] Comment on above: Performed By: #### C DP, CP #### [facility] [address] [place] [address] [place] [address] Call Box Wirer: Concepción De La Torre MD WBC (Bld) [#/Vol] 12.0 10*3/uL High 3.5-11.3 [facility] Comment on above: Performed By: #### C DP, CP #### [address] [place], [place] [phone] Call Box Wirer: Concepción De La Torre MD Comp Metabolic Profon 2023 Albumin [Mass/Vol] 2.8 g/dL Low 3.5-5.2 [facility] Comment on above: Performed By: #### C DP, CP #### [facility] [address] [place], [place] [phone] Call Box Wirer: Concepción De La Torre MD Albumin/Glob Ratio 1.2 Normal 1.0-2.5 [facility] Comment on above: Performed By: #### C DP, CP #### [facility] [address] [place] [address] Call Box Wirer: Concepción De La Torre MD Alkaline Phos 74 U/L Normal 35-104 [facility] Comment on above: Performed By: #### C DP, CP #### [facility] [address] [place], [place] [phone] Call Box Wirer: Concepción De La Torre MD ALT [Catalytic activity/Vol] 22 U/L Normal 5-33 [facility] Comment on above: Performed By: #### C DP, CP #### [facility] [address] [place] [address] Call Box Wirer: Concepción De La Torre MD Anion gap [Moles/Vol] 10 mmol/L Normal 9-17 [facility] Comment on above: Performed By: #### C DP, CP #### [facility] [address] [place], [place] [phone] Call Box Wirer: Concepción De La Torre MD AST [Catalytic activity/Vol] 36 U/L High <32 [facility] Comment on above: Performed By: #### C DP, CP #### [facility] [address] [place] [address] Call Box Wirer: Concepción De La Torre MD Bilirubin [Mass/Vol] 1.3 mg/dL High 0.3-1.2 [facility] Comment on above: Performed By: #### C DP, CP #### [facility] [address] [place], [place] [phone] Call Box Wirer: Concepción De La Torre MD BUN/CRE Ratio 34 High 9-20 [facility] Comment on above: Performed By: #### C DP, CP #### [facility] [address] [place], [place] [phone] Call Box Wirer: Concepción De La Torre MD Calcium [Mass/Vol] 8.2 mg/dL Low 8.6-10.4 [facility] Comment on above: Performed By: #### C DP, CP #### [facility] [address] [place], [place] [phone] Call Box Wirer: Concepción De La Torre MD Chloride [Moles/Vol] 101 mmol/L Normal 98-107 [facility] Comment on above: Performed By: #### C DP, CP #### [facility] [address] [place], [place] [phone] Call Box Wirer: Concepción De La Torre MD CO2 [Moles/Vol] 26 mmol/L Normal 20-31 [facility] Comment on above: Performed By: #### C DP, CP #### [facility] [address] [place], [place] [phone] Call Box Wirer: Concepción De La Torre MD Creatinine [Mass/Vol] 0.8 mg/dL Normal 0.5-0.9 [facility] Comment on above: Performed By: #### C DP, CP #### [facility] [address] [place], [place] [phone] Call Box Wirer: Concepción De La Torre MD GFR/1.73 sq M.predicted among non-blacks MDRD (S/P/Bld) [Vol rate/Area] 73 mL/min/{1.73_m2} Normal >60 [facility] Comment on above: Result Comment: These results [...] Performed By: #### C DP, CP #### [facility] [address] [place], [place] [phone] Call Box Wirer: Concepción De La Torre MD Glucose [Mass/Vol] 101 mg/dL High 70-99 [facility] Comment on above: Performed By: #### C DP, CP #### [facility] [address] [place], [place] [phone] Call Box Wirer: Concepción De La Torre MD Potassium [Moles/Vol] 4.6 mmol/L Normal 3.7-5.3 [facility] Comment on above: Performed By: #### C DP, CP #### [facility] [address] [place], [place] [phone] Call Box Wirer: Concepción De La Torre MD Protein [Mass/Vol] 5.2 g/dL Low 6.4-8.3 [facility] Comment on above: Performed By: #### C DP, CP #### [facility] [address] [place] [address] Call Box Wirer: Concepción De La Torre MD Sodium [Moles/Vol] 137 mmol/L Normal 135-144 [facility] Comment on above: Performed By: #### C DP, CP #### [facility] [address] [place] [address] Call Box Wirer: Concepción De La Torre MD Urea nitrogen [Mass/Vol] 27 mg/dL High 8-23 [facility] Comment on above: Performed By: #### C DP, CP #### [facility] [address] [place], [place] [phone] Call Box Wirer: Concepción De La Torre MD Comprehensive Metabolic Pane [facility] 01-15-2024 Albumin [Mass/Vol] 2.8 g/dL Low 3.5 - 5.2 g/dL [facility] Albumin/Globulin [Mass ratio] 1.2 {ratio} 1.0 - 2.5 [facility] ALP [Catalytic activity/Vol] 74 U/L 35 - 104 U/L [facility] ALT [Catalytic activity/Vol] 22 U/L 5 - 33 U/L [facility] Anion gap [Moles/Vol] 10 mmol/L 9 - 17 mmol/L [facility] AST [Catalytic activity/Vol] 36 U/L High NINF - 32 U/L [facility] Bilirubin [Mass/Vol] 1.3 mg/dL High 0.3 - 1 .2 mg/dL [facility] Calcium [Mass/Vol] 8.2 mg/dL Low 8.6 - 10. 4 mg/dL [facility] Chloride [Moles/Vol] 101 mmol/L 98 - 10 7 mmol/L [facility] CO2 [Moles/Vol] 26 mmol/L 20 - 31 mmol/L [facility] Creatinine [Mass/Vol] 0.8 mg/dL 0.5 - 0.9 mg/dL [facility] Est, Glom Filt Rate 73 - PINF [facility] Comment on above: These results [...] 101 mg/dL High 70 - 99 mg/dL [facility] Interpretation and review of laboratory results Abnormal [facility] Potassium [Moles/Vol] 4.6 mmol/L 3.7 - 5.3 mmol/L [facility] Protein [Mass/Vol] 5.2 g/dL Low 6.4 - 8.3 g/dL [facility] Sodium [Moles/Vol] 137 mmol/L 135 - 144 mmol/L [facility] Urea nitrogen [Mass/Vol] 27 mg/dL High 8 - 23 mg/dL [facility] Urea nitrogen/Creatinine [Mass ratio] 34 mg/mg High 9 - 20 [facility] PTon 01-13-2024 INR Coag (PPP) [Relative time] 1.3 {INR} Normal [facility] Comment on above: Result Comment: Therapeutic Range: Moderate Anticoagulant Intensity: INR = 2.0-3.0 High Anticoagulant Intensity: INR = 2.5-3.5 Performed By: #### P T, CMPX, CDP #### [facility] [address] [place] [address] Call Box Wirer: Sarath Olivera MD PT Coag (PPP) [Time] 15.6 s High 11.7-14.[address] [facility] Comment on above: Performed By: #### P T, CMPX, CDP #### [facility] [address] [place] [phone] Call Box Wirer: Sarath Olivera MD Basic Metab w/rfx MGon 01-111 Anion gap [Moles/Vol] 9 mmol/L Normal 9-16 [facility] Comment on above: Performed By: #### P T, CMPX, CDP #### [facility] [address] [place] [address] Call Box Wirer: Sarath Olivera MD Calcium [Mass/Vol] 8.3 mg/dL Low 8.6-10.4 [facility] Comment on above: Performed By: #### P T, CMPX, CDP #### [facility] [address] [place] [address] Call Box Wirer: Sarath Olivera MD Chloride [Moles/Vol] 103 mmol/L Normal 98-[address] [facility] Comment on above: Performed By: #### P T, CMPX, CDP #### [facility] [address] [place] [address] Call Box Wirer: Sarath Olivera MD CO2 [Moles/Vol] 25 mmol/L Normal 20-31 [facility] Comment on above: Performed By: #### P T, CMPX, CDP #### [facility] [address] [place] [address] Call Box Wirer: Sarath Olivera MD Creatinine [Mass/Vol] 0.8 mg/dL Normal 0.50-0.90 [facility] Comment on above: Performed By: #### P T, CMPX, CDP #### [facility] [address] [place] [address] Call Box Wirer: Sarath Olivera MD GFR/1.73 sq M.predicted among [...] Performed By: #### P T, CMPX, CDP #### [facility] [address] [place] [address] Call Box Wirer: Sarath Olivera MD Glucose [Mass/Vol] 92 mg/dL Normal 74-99 [facility] Comment on above: Performed By: #### P T, CMPX, CDP #### [facility] [address] [place] [address] Call Box Wirer: Sarath Olivera MD Potassium [Moles/Vol] 4.5 mmol/L Normal 3.7-5.3 [facility] Comment on above: Performed By: #### P T, CMPX, CDP #### [facility] [address] [place] [address] Call Box Wirer: Sarath Olivera MD Sodium [Moles/Vol] 137 mmol/L Normal 136-145 [facility] Comment on above: Performed By: #### P T, CMPX, CDP #### [address] [address] Call Box Wirer: Sarath Olivera MD Urea nitrogen [Mass/Vol] 28 mg/dL High 8-23 [facility] Comment on above: Performed By: #### P T, CMPX, CDP #### [facility] [address] [place] [address] Call Box Wirer: Sarath Olivera MD CBC with Diffon 01-12-2024 Abs. Basophil 0.03 k/uL Normal 0.00-0.20 [facility] Comment on above: Performed By: #### P T, CMPX, CDP #### [place] [address] Call Box Wirer: Sarath Olivera MD Abs.Imm.Granulocyte 0.24 k/uL Normal 0.00-0.30 [facility] Comment on above: Performed By: #### P T, CMPX, CDP #### [place] [address] Call Box Wirer: Sarath Olivera MD Abs.Neutrophil (Seg) 6.54 k/uL Normal 1.50-8.[address] [facility] Comment on above: Performed By: #### P T, CMPX, CDP #### [facility] [address] [place] [address] Call Box Wirer: Sarath Olivera MD Basophils/100 WBC (Bld) 0 % Normal 0-2 [facility] Comment on above: Performed By: #### P T, CMPX, CDP #### [facility] [address] [place] [address] Call Box Wirer: Sarath Olivera MD Eosinophils (Bld) [#/Vol] 0.19 10*3/uL Normal 0.00-0.44 [facility] Comment on above: Performed By: #### P T, CMPX, CDP #### [place] [address] Call Box Wirer: Sarath Olivera MD Eosinophils/100 WBC (Bld) 2 % Normal 1-4 [facility] Comment on above: Performed By: #### P T, CMPX, CDP #### [place] [address] Call Box Wirer: Sarath Olivera MD Erythrocyte distribution width (RBC) [Ratio] 15.8 % High 11.8-14.4 [facility] Comment on above: Performed By: #### P T, CMPX, CDP #### [place] [address] Call Box Wirer: Sarath Olivera MD Hematocrit (Bld) [Volume fraction] 29.8 % Low 36.3-47.1 [facility] Comment on above: Performed By: #### P T, CMPX, CDP #### [place] [address] Call Box Wirer: Sarath Olivera MD Hemoglobin (Bld) [Mass/Vol] 9.3 g/dL Low 11.9-15.1 [facility] Comment on above: Performed By: #### P T, CMPX, CDP #### [place] [address] Call Box Wirer: Sarath Olivera MD Immature granulocytes/100 WBC (Bld) 3 % High 0 [facility] Comment on above: Performed By: #### P T, CMPX, CDP #### [place] [address] Call Box Wirer: Sarath Olivera MD Lymphocytes (Bld) [#/Vol] 1.23 10*3/uL Normal 1.10-3.70 [facility] Comment on above: Performed By: #### P T, CMPX, CDP #### [address] [address] Call Box Wirer: Sarath Olivera MD Lymphocytes/100 WBC (Bld) 13 % Low 24-43 [facility] Comment on above: Performed By: #### P T, CMPX, CDP #### [address] [address] Call Box Wirer: Sarath Olivera MD MCH (RBC) [Entitic mass] 30.9 pg Normal 25.2-33.5 [facility] Comment on above: Performed By: #### P T, CMPX, CDP #### [address] [address] Call Box Wirer: Sarath Olivera MD MCHC (RBC) [Mass/Vol] 31.2 g/dL Normal 28.4-34.8 [facility] Comment on above: Performed By: #### P T, CMPX, CDP #### [address] [address] Call Box Wirer: Sarath Olivera MD MCV (RBC) [Entitic vol] 99.0 fL Normal 82.6-102.9 [facility] Comment on above: Performed By: #### P T, CMPX, CDP #### [address] [address] Call Box Wirer: Sarath Olivera MD Monocytes (Bld) [#/Vol] 1.19 10*3/uL Normal 0.10-1.20 [facility] Comment on above: Performed By: #### P T, CMPX, CDP #### [address] [address] Call Box Wirer: Sarath Olivera MD Monocytes/100 WBC (Bld) 13 % High 3-12 [facility] Comment on above: Performed By: #### P T, CMPX, CDP #### [address] [address] Call Box Wirer: Sarath Olivera MD Neutrophil (Seg) 69 % High 36-65 [facility] Comment on above: Performed By: #### P T, CMPX, CDP #### [address] [address] Call Box Wirer: Sarath Olivera MD NRBC Automated 0.5 per 100 WBC High 0.0 [facility] Comment on above: Performed By: #### P T, CMPX, CDP #### [address] [address] Call Box Wirer: Sarath Olivera MD Platelet mean volume (Bld) [Entitic vol] 12.4 fL Normal 8.1-13.5 [facility] Comment on above: Performed By: #### P T, CMPX, CDP #### [address] [address] Call Box Wirer: Sarath Olivera MD Platelets (Bld) [#/Vol] 140 10*3/uL Normal 138-453 [facility] Comment on above: Performed By: #### P T, CMPX, CDP #### [address] [address] Call Box Wirer: Sarath Olivera MD RBC (Bld) [#/Vol] 3.01 10*6/uL Low 3.95-5.11 [facility] Comment on above: Performed By: #### P T, CMPX, CDP #### [address] [address] Call Box Wirer: Sarath Olivera MD RBC morphology finding Nom (Bld) ANISOCYTOSIS PRESENT Normal [facility] Comment on above: Performed By: #### P T, CMPX, CDP #### [facility] [address] [place] [address] Call Box Wirer: Sarath Olivera MD WBC (Bld) [#/Vol] 9.4 10*3/uL Normal 3.5-11.3 [facility] Comment on above: Performed By: #### P T, CMPX, CDP #### [address] [address] Call Box Wirer: Sarath Olivera MD PTon 01-12-2024 INR Coag (PPP) [Relative time] 1.2 {INR} Normal [facility] Comment on above: Result Comment: Therapeutic Range: Moderate Anticoagulant Intensity: INR = 2.0-3.0 High Anticoagulant Intensity: INR = 2.5-3.5 Performed By: #### P T #### [address] [address] Call Box Wirer: Sarath Olivera MD PT Coag (PPP) [Time] 14.6 s Normal 11.7-14.[address] [facility] Comment on above: Performed By: #### P T #### [address] [address] Call Box Wirer: Sarath Olivera MD XR CHEST PORTABLEon 01-12-20 [...] Anion gap [Moles/Vol] 7 mmol/L Low 9-16 [facility] Comment on above: Performed By: #### P T, CMPX, CDP #### [address] [address] Call Box Wirer: Sarath Olivera MD Calcium [Mass/Vol] 8.0 mg/dL Low 8.6-10.4 [facility] Comment on above: Performed By: #### P T, CMPX, CDP #### [address] [address] Call Box Wirer: Sarath Olivera MD Chloride [Moles/Vol] 104 mmol/L Normal 98-[address] [facility] Comment on above: Performed By: #### P T, CMPX, CDP #### [facility] [address] [place] [address] Call Box Wirer: Sarath Olivera MD CO2 [Moles/Vol] 24 mmol/L Normal 20-31 [facility] Comment on above: Performed By: #### P T, CMPX, CDP #### [facility] [address] [place] [address] Call Box Wirer: Sarath Olivera MD Creatinine [Mass/Vol] 0.8 mg/dL Normal 0.50-0.90 [facility] Comment on above: Performed By: #### P T, CMPX, CDP #### [facility] [address] [place] [address] Call Box Wirer: Sarath Olivera MD GFR/1.73 sq M.predicted among [...] Performed By: #### P T, CMPX, CDP #### [facility] [address] [place] [address] Call Box Wirer: Sarath Olivera MD Glucose [Mass/Vol] 106 mg/dL High 74-99 [facility] Comment on above: Performed By: #### P T, CMPX, CDP #### [facility] [address] [place] [address] Call Box Wirer: Sarath Olivera MD Potassium [Moles/Vol] 4.7 mmol/L Normal 3.7-5.3 [facility] Comment on above: Performed By: #### P T, CMPX, CDP #### [facility] [address] [place] [address] Call Box Wirer: Sarath Olivera MD Sodium [Moles/Vol] 135 mmol/L Low 136-145 [facility] Comment on above: Performed By: #### P T, CMPX, CDP #### [facility] [address] [place] [address] Call Box Wirer: Sarath Olivera MD Urea nitrogen [Mass/Vol] 28 mg/dL High 8-23 [facility] Comment on above: Performed By: #### P T, CMPX, CDP #### [facility] [address] [place] [address] Call Box Wirer: Sarath Olivera MD CBC with Diffon 01-11-2024 Abs. Basophil <0.03 Normal 0.00-0.20 [facility] Comment on above: Performed By: #### P T, CMPX, CDP #### [facility] [address] [place] [address] Call Box Wirer: Sarath Olivera MD Abs.Imm.Granulocyte 0.23 k/uL Normal 0.00-0.30 [facility] Comment on above: Performed By: #### P T, CMPX, CDP #### [facility] [address] [place] [address] Call Box Wirer: Sarath Olivera MD Abs.Neutrophil (Seg) 7.27 k/uL Normal 1.50-8.[address] [facility] Comment on above: Performed By: #### P T, CMPX, CDP #### [address] [address] Call Box Wirer: Sarath Olivera MD Basophils/100 WBC (Bld) 0 % Normal 0-2 [facility] Comment on above: Performed By: #### P T, CMPX, CDP #### [place] [address] Call Box Wirer: Sarath Olivera MD Eosinophils (Bld) [#/Vol] 0.11 10*3/uL Normal 0.00-0.44 [facility] Comment on above: Performed By: #### P T, CMPX, CDP #### [facility] [address] [place] [address] Call Box Wirer: Sarath Olivera MD Eosinophils/100 WBC (Bld) 1 % Normal 1-4 [facility] Comment on above: Performed By: #### P T, CMPX, CDP #### [facility] [address] [place] [address] Call Box Wirer: Sarath Olivera MD Erythrocyte distribution width (RBC) [Ratio] 15.6 % High 11.8-14.4 [facility] Comment on above: Performed By: #### P T, CMPX, CDP #### [facility] [address] [place] [address] Call Box Wirer: Sarath Olivera MD Hematocrit (Bld) [Volume fraction] 28.4 % Low 36.3-47.1 [facility] Comment on above: Performed By: #### P T, CMPX, CDP #### [address] [address] Call Box Wirer: Sarath Olivera MD Hemoglobin (Bld) [Mass/Vol] 8.9 g/dL Low 11.9-15.1 [facility] Comment on above: Performed By: #### P T, CMPX, CDP #### [address] [address] Call Box Wirer: Sarath Olivera MD Immature granulocytes/100 WBC (Bld) 2 % High 0 [facility] Comment on above: Performed By: #### P T, CMPX, CDP #### [address] [address] Call Box Wirer: Sarath Olivera MD Lymphocytes (Bld) [#/Vol] 1.31 10*3/uL Normal 1.10-3.70 [facility] Comment on above: Performed By: #### P T, CMPX, CDP #### [facility] [address] [place] [address] Call Box Wirer: Sarath Olivera MD Lymphocytes/100 WBC (Bld) 13 % Low 24-43 [facility] Comment on above: Performed By: #### P T, CMPX, CDP #### [facility] [address] [place] [address] Call Box Wirer: Sarath Olivera MD MCH (RBC) [Entitic mass] 30.9 pg Normal 25.2-33.5 [facility] Comment on above: Performed By: #### P T, CMPX, CDP #### [facility] [address] [place] [address] Call Box Wirer: Sarath Olivera MD MCHC (RBC) [Mass/Vol] 31.3 g/dL Normal 28.4-34.8 [facility] Comment on above: Performed By: #### P T, CMPX, CDP #### [address] [address] Call Box Wirer: Sarath Olivera MD MCV (RBC) [Entitic vol] 98.6 fL Normal 82.6-102.9 [facility] Comment on above: Performed By: #### P T, CMPX, CDP #### [address] [address] Call Box Wirer: Sarath Olivera MD Monocytes (Bld) [#/Vol] 1.42 10*3/uL High 0.10-1.20 [facility] Comment on above: Performed By: #### P T, CMPX, CDP #### [address] [address] Call Box Wirer: Sarath Olivera MD Monocytes/100 WBC (Bld) 14 % High 3-12 [facility] Comment on above: Performed By: #### P T, CMPX, CDP #### [address] [address] Call Box Wirer: Sarath Olivera MD Neutrophil (Seg) 70 % High 36-65 [facility] Comment on above: Performed By: #### P T, CMPX, CDP #### [address] [address] Call Box Wirer: Sarath Olivera MD NRBC Automated 1.3 per 100 WBC High 0.0 [facility] Comment on above: Performed By: #### P T, CMPX, CDP #### [address] [address] Call Box Wirer: Sarath Olivera MD Platelet mean volume (Bld) [Entitic vol] 12.1 fL Normal 8.1-13.5 [facility] Comment on above: Performed By: #### P T, CMPX, CDP #### [address] [address] Call Box Wirer: Sarath Olivera MD Platelets (Bld) [#/Vol] 109 10*3/uL Low 138-453 [facility] Comment on above: Performed By: #### P T, CMPX, CDP #### [place] [address] Call Box Wirer: Sarath Olivera MD RBC (Bld) [#/Vol] 2.88 10*6/uL Low 3.95-5.11 [facility] Comment on above: Performed By: #### P T, CMPX, CDP #### [place] [address] Call Box Wirer: Sarath Olivera MD RBC morphology finding Nom (Bld) ANISOCYTOSIS PRESENT Normal [facility] Comment on above: Performed By: #### P T, CMPX, CDP #### [place] [address] Call Box Wirer: Sarath Olivera MD WBC (Bld) [#/Vol] 10.4 10*3/uL Normal 3.5-11.3 [facility] Comment on above: Performed By: #### P T, CMPX, CDP #### [place] [address] Call Box Wirer: Sartah Olivera MD CBC AUTO DIFFon 12-10-2022 BASO # 0.0 103/ul Normal 0.0-0.1 [facility] Comment on above: Performed By: #### C BC ####[facility] [address] [place], [place] [address]KiSandi Lozano Basophils/100 WBC (Bld) 0.4 % Normal 0.2-2.0 [facility] Comment on above: Performed By: #### C BC ####[facility] [address] [place] [phone]. Sofiya Lozano EO # 0.0 103/ul Normal 0.0-0.7 [facility] Comment on above: Performed By: #### C BC ####[facility] [address] [place] [phone]. Sofiya Lozano Eosinophils/100 WBC (Bld) 0.8 % Critically low 0.9-7.0 [facility] Comment on above: Performed By: #### C BC ####[facility] [address] [place], [place] [address]Dr. Sofiya Lozano Erythrocyte distribution width (RBC) [Ratio] 13.6 % Normal 11.0-15.0 [facility] Comment on above: Performed By: #### C BC ####[facility] [address] [place], [place] [address]Dr. Sofiya Lozano Hematocrit (Bld) [Volume fraction] 41.0 % Normal 36.0-48.0 [facility] Comment on above: Performed By: #### C BC ####[facility] [address] [place], [place] [address]Dr. Sofiya Lozano Hemoglobin (Bld) [Mass/Vol] 13.0 g/dL Normal 12.0-16.0 [facility] Comment on above: Performed By: #### C BC ####[facility] [address] [place], [place] [address]Dr. Sofiya Lozano IG # 0.00 10e3/ul Normal 0.00-0.03 [facility] Comment on above: Performed By: #### C BC ####[facility] [address] [place], [place] [address]Dr. Sofiya Lozano IG % 0.0 % Normal 0.0-0.5 [facility] Comment on above: Performed By: #### C BC ####[facility] [address] [place], [place] [address]Dr. Sofiya Lozano LYMPH # 1.5 103/ul Normal 1.2-3.8 [facility] Comment on above: Performed By: #### C BC ####[facility] [address] [place] [phone]. Sofiya Loznao Lymphocytes/100 WBC (Bld) 27.9 % Normal 20.5-60.0 [facility] Comment on above: Performed By: #### C BC ####[facility] [address] [place] [phone]. Landyjonathan Lozano MANUAL DIFF REQ NO Normal [facility] Comment on above: Performed By: #### C BC ####[facility] [address] [place] [phone]. Sofiya Blake MCH (RBC) [Entitic mass] 30.0 pg Normal 26.7-34.0 [facility] Comment on above: Performed By: #### C BC ####[facility] [address] [place], [place] [id number]. Sofiya Blake MCHC (RBC) [Mass/Vol] 31.7 g/dL Normal 29.9-35.2 [facility] Comment on above: Performed By: #### C BC ####[facility] [address] [place] [phone]. oSfiya Lozano MCV (RBC) [Entitic vol] 94.5 fL Normal 81.0-99.0 [facility] Comment on above: Performed By: #### C BC ####[facility] [address] [place] [address]Dr. Landyjonathan Blake MONO # 0.5 103/ul Normal 0.3-0.8 [facility] Comment on above: Performed By: #### C BC ####[facility] [address] [place] [phone]. Sofiya Blake Monocytes/100 WBC (Bld) 8.6 % Normal 1.7-12.0 [facility] Comment on above: Performed By: #### C BC ####[facility] [address] [place], [place] [phone]. Sofiya Lozano NEUT # 3.3 103/ul Normal 1.4-6.5 [facility] Comment on above: Performed By: #### C BC ####[facility] [address] [place] [phone]. Sofiya Lozano Neutrophils/100 WBC (Bld) 62.3 % Normal 43.0-75.0 [facility] Comment on above: Performed By: #### C BC ####[facility] [address] [place] [phone]. Sofiya Lozano Platelet mean volume (Bld) [Entitic vol] 11.9 fL Normal 9.5-13.5 [facility] Comment on above: Performed By: #### C BC ####[facility] [address] [place] [phone]. Sofiya Lozano PLT 166 103/ul Normal 150-450 [facility] Comment on above: Performed By: #### C BC ####[facility] [address] [place] [phone]. Sofiya Lozano RBC 4.34 106/ul Normal 4.20-5.40 [facility] Comment on above: Performed By: #### C BC ####[facility] [address] [place] [phone]. Sofiya Lozano WBC 5.2 103/ul Normal 4.0-11.0 [facility] Comment on above: Performed By: #### C BC ####[facility] [address] [place] [phone]. Sofiya Lozano FREE THYROXINE INDEX T7on FTI 2.50 Normal 1.30-4.50 [facility] Comment on above: Performed By: #### C MP, TSH, LIPID, T7 ####[facility] [address] [place] [phone]. Sofiya Lozano T3U 32.0 % Normal 30.0-39.0 [facility] Comment on above: Performed By: #### C MP, TSH, LIPID, T7 ####[facility] [address] [place] [phone]. Sofiya Lozano T4 [Mass/Vol] 7.80 ug/dL Normal 4.80-13.90 [facility] Comment on above: Performed By: #### C MP, TSH, LIPID, T7 ####[facility] [address] [place], [place] [address]WpDr. Sofiya Lozano GLYCOHEMOGLOBIN A1Con 2022 ADA RECOMMENDATION SEE BELOW Normal [facility] Comment on above: Result Comment: ADA RECOMMENDED LIMIT 4.0 - 6.0 ADA THERAPEUTIC TARGET < 7.0 ACTION SUGGESTED > 7.0 Performed By: #### A 1C #### [facility] [address] [place] [address] [address] Sofiya Lozano Glucose [Mass/Vol] 117 mg/dL Normal [facility] Comment on above: Performed By: #### A 1C #### [facility] [address] [place] [address] [address] Sofiya Lozano HbA1c (Bld) [Mass fraction] 5.7 % Normal 4.5-6.2 [facility] Comment on above: Performed By: #### A 1C #### [facility] [address] [address] [address] Sofiya Lozano LIPID PROFILEon 12-10-2022 CHOL-HDL RATIO NORM SEE BELOW Normal [facility] Comment on above: Result Comment: 3.3 - 4.4 LOW RISK 4.4 - 7.1 AVERAGE RISK 7.1 - 11.0 MODERATE RISK >11.0 HIGH RISK Performed By: #### C MP, TSH, LIPID, T7 ####[facility] [address] [place], [place] [address]DmSandi Lozano Cholesterol [Mass/Vol] 155 mg/dL Normal <=200 [facility] Comment on above: Performed By: #### C MP, TSH, LIPID, T7 ####[facility] [address] [place], [place] [address]MkSandi Lozano Cholesterol in HDL [Mass/Vol] 61 mg/dL Critically high 40-60 [facility] Comment on above: Performed By: #### C MP, TSH, LIPID, T7 ####[facility] [address] [place], [place] [address]ZlDr. Sofiya Lozano Cholesterol in LDL [Mass/Vol] 75.6 mg/dL Normal [facility] Comment on above: Performed By: #### C MP, TSH, LIPID, T7 ####[facility] [address] [place] [phone]. Sofiya Lozano Cholesterol.total/Ch olesterol in HDL [Mass ratio] 2.5 {ratio} Normal [facility] Comment on above: Performed By: #### C MP, TSH, LIPID, T7 ####[facility] [address] [place] [phone]. Sofiya Lozano HDL NORMAL > or = 60 mg/dl - LO W CARDIOVASCULAR RISK <40 mg/dl - HIGH CARDIOVASCULAR RISK Normal [facility] Comment on above: Performed By: #### C MP, TSH, LIPID, T7 ####[facility] [address] [place] [address]Dr. Sofiya Lozano LDL CALC NORMAL SEE BELOW Normal [facility] Comment on above: Result Comment: <100 mg/dl OPTIMAL 100 - 129 mg/dl NEAR OR ABOVE OPTIMAL 130 - 159 mg/dl BORDERLINE HIGH 160 - 189 mg/dl HIGH >190 mg/dl VERY HIGH Performed By: #### C MP, TSH, LIPID, T7 ####[facility] [address] [place] [address]Dr. Sofiya Lozano Triglyceride [Mass/Vol] 92 mg/dL Normal <=150 [facility] Comment on above: Performed By: #### C MP, TSH, LIPID, T7 ####[facility] [address] [place] [phone]. Sofiya Lozano VLDL CALC 18.4 mg/dL Normal [facility] Comment on above: Performed By: #### C MP, TSH, LIPID, T7 ####[facility] [address] [place] [phone]. Sofiya Lozano PROF 14(COMP METB)on 023 Albumin [Mass/Vol] 3.4 g/dL Normal 3.4-5.0 [facility] Comment on above: Performed By: #### C MP, TSH, LIPID, T7 ####[facility] [address] [place] [address]Dr. Sofiya Lozano Albumin/Globulin [Mass ratio] 1.0 {ratio} Normal [facility] Comment on above: Performed By: #### C MP, TSH, LIPID, T7 ####[facility] [address] [place] [address]Dr. Soifya Lozano ALP [Catalytic activity/Vol] 85 U/L Normal 46-116 [facility] Comment on above: Performed By: #### C MP, TSH, LIPID, T7 ####[facility] [address] [place] [address]Dr. Sofiya Lozano ALT [Catalytic activity/Vol] 21 U/L Normal 14-59 [facility] Comment on above: Performed By: #### C MP, TSH, LIPID, T7 ####[facility] [address] [place], [place] [address]Dr. Sofiya Lozano Anion gap [Moles/Vol] 9.0 mmol/L Normal [facility] Comment on above: Performed By: #### C MP, TSH, LIPID, T7 ####[facility] [address] [place], [place] [address]Dr. Sofiya Lozano AST [Catalytic activity/Vol] 18 U/L Normal 15-37 [facility] Comment on above: Performed By: #### C MP, TSH, LIPID, T7 ####[facility] [address] [place], [place] [address]Dr. Sofiya Lozano Bilirubin [Mass/Vol] 0.4 mg/dL Normal 0.2-1.0 [facility] Comment on above: Performed By: #### C MP, TSH, LIPID, T7 ####[facility] [address] [place], [place] [address]Dr. Sofiya Lozano Calcium [Mass/Vol] 9.0 mg/dL Normal 8.5-10.[address] [facility] Comment on above: Performed By: #### C MP, TSH, LIPID, T7 ####[facility] [address] [place] [address]Dr. Landyjonathan Lozano Chloride [Moles/Vol] 109 mmol/L Critically high 98-107 [facility] Comment on above: Performed By: #### C MP, TSH, LIPID, T7 ####[facility] [address] [place] [phone]. Sofiya Lozano CO2 [Moles/Vol] 31.0 mmol/L Normal 21.0-32.0 [facility] Comment on above: Performed By: #### C MP, TSH, LIPID, T7 ####[facility] [address] [place] [phone]. Sofiya Lozano Creatinine [Mass/Vol] 1.10 mg/dL Critically high 0.55-1.02 [facility] Comment on above: Performed By: #### C MP, TSH, LIPID, T7 ####[facility] [address] [place] [address]Dr. Sofiya Lozano EGFR-AF VIET[place]ESE 57 mL/min/1.73m2 Critically low >=60 [facility] Comment on above: Performed By: #### C MP, TSH, LIPID, T7 ####[facility] [address] [place] [address]Dr. Sofiya Lozano EGFR-NON AF VIETNAMESE 47 mL/min/1.73m2 Critically low >=60 [facility] Comment on above: Performed By: #### C MP, TSH, LIPID, T7 ####[facility] [address] [place], [place] [address]Dr. Sofiya Lozano Globulin (S) [Mass/Vol] 3.4 g/dL Normal [facility] Comment on above: Performed By: #### C MP, TSH, LIPID, T7 ####[facility] [address] [place] [address]Dr. Sofiya Lozano Glucose [Mass/Vol] 109 mg/dL Critically high 74-106 [facility] Comment on above: Performed By: #### C MP, TSH, LIPID, T7 ####[facility] [address] [place], [place] [address]Dr. Sofiya Lozano Potassium [Moles/Vol] 4.0 mmol/L Normal 3.5-5.1 [facility] Comment on above: Performed By: #### C MP, TSH, LIPID, T7 ####[facility] [address] [place] [address]Dr. Sofiya Lozano Protein [Mass/Vol] 6.8 g/dL Normal 6.4-8.[address] [facility] Comment on above: Performed By: #### C MP, TSH, LIPID, T7 ####[facility] [address] [place] [address]Dr. Sofiya Lozano Sodium [Moles/Vol] 145 mmol/L Normal 136-[address] [facility] Comment on above: Performed By: #### C MP, TSH, LIPID, T7 ####[facility] [address] [place] [address]Dr. Sofiya Lozano Urea nitrogen [Mass/Vol] 21.0 mg/dL Critically high 7.0-18.0 [facility] Comment on above: Performed By: #### C MP, TSH, LIPID, T7 ####[facility] [address] [place] [address]Dr. Sofiya Lozano Urea nitrogen/Creatinine [Mass ratio] 19.1 mg/mg Normal [facility] Comment on above: Performed By: #### C MP, TSH, LIPID, T7 ####[facility] [address] [place] [address]Dr. Sofiya Lozano TSHon 12-10-2022 TSH 3.603 uIU/mL Normal 0.358-3.740 [facility] Comment on above: Performed By: #### C MP, TSH, LIPID, T7 ####[facility] [address] [place] [address]Dr. Sofiya Lozano CBC AUTO DIFFon 08-09-2022 BASO # 0.0 103/ul Normal 0.0-0.1 [facility] Comment on above: Performed By: #### C BC #### [facility] [address] [place] [address] [address] Sofiya Lozano Basophils/100 WBC (Bld) 0.2 % Normal 0.2-2.0 [facility] Comment on above: Performed By: #### C BC #### [facility] [address] [place] [address] [address] Sofiya Lozano EO # 0.0 103/ul Normal 0.0-0.7 [facility] Comment on above: Performed By: #### C BC #### [facility] [address] [place] [address] Dr. Sofiya Lozano Eosinophils/100 WBC (Bld) 0.8 % Critically low 0.9-7.0 [facility] Comment on above: Performed By: #### C BC #### [facility] [address] [place] [address] Dr. Sofiya Lozano Erythrocyte distribution width (RBC) [Ratio] 13.7 % Normal 11.0-15.0 [facility] Comment on above: Performed By: #### C BC #### [facility] [address] [place] [address] Dr. Sofiya Lozano Hematocrit (Bld) [Volume fraction] 39.0 % Normal 36.0-48.0 [facility] Comment on above: Performed By: #### C BC #### [facility] [address] [place] [address] Dr. Sofiya Lozano Hemoglobin (Bld) [Mass/Vol] 13.0 g/dL Normal 12.0-16.0 [facility] Comment on above: Performed By: #### C BC #### [facility] [address] [place] [address] Dr. Sofiya Lozano IG # 0.01 10e3/ul Normal 0.00-0.03 [facility] Comment on above: Performed By: #### C BC #### [facility] [address] [place] [address] Dr. Sofiya Lozano IG % 0.2 % Normal 0.0-0.5 [facility] Comment on above: Performed By: #### C BC #### [facility] [address] [place] [address] Dr. Sofiya Lozano LYMPH # 0.9 103/ul Critically low 1.2-3.8 [facility] Comment on above: Performed By: #### C BC #### [facility] [address] [place] [address] Dr. Sofiya Lozano Lymphocytes/100 WBC (Bld) 19.1 % Critically low 20.5-60.0 [facility] Comment on above: Performed By: #### C BC #### [facility] [address] [place] [address] Dr. Sofiya Lozano MANUAL DIFF REQ NO Normal [facility] Comment on above: Performed By: #### C BC #### [facility] [address] [place] [address] Dr. Sofiya Lozano MCH (RBC) [Entitic mass] 30.6 pg Normal 26.7-34.0 [facility] Comment on above: Performed By: #### C BC #### [facility] [address] [place] [address] Dr. Sofiya Lozano MCHC (RBC) [Mass/Vol] 33.3 g/dL Normal 29.9-35.2 [facility] Comment on above: Performed By: #### C BC #### [facility] [address] [place] [address] Dr. Sofiya Lozano MCV (RBC) [Entitic vol] 91.8 fL Normal 81.0-99.0 [facility] Comment on above: Performed By: #### C BC #### [facility] [address] [place] [address] Dr. Sofiya Lozano MONO # 0.5 103/ul Normal 0.3-0.8 [facility] Comment on above: Performed By: #### C BC #### [facility] [address] [place] [address] Dr. Sofiya Lozano Monocytes/100 WBC (Bld) 10.5 % Normal 1.7-12.0 [facility] Comment on above: Performed By: #### C BC #### [facility] [address] [place] [address] Dr. Sofiya Lozano NEUT # 3.4 103/ul Normal 1.4-6.5 [facility] Comment on above: Performed By: #### C BC #### [facility] [address] [place] [address] Dr. Sofiya Lozano Neutrophils/100 WBC (Bld) 69.2 % Normal 43.0-75.0 [facility] Comment on above: Performed By: #### C BC #### [facility] [address] [address] [address] Sofiya Lozano Platelet mean volume (Bld) [Entitic vol] 11.7 fL Normal 9.5-13.5 [facility] Comment on above: Performed By: #### C BC #### [facility] [address] [address] [address] Sofiya Lozano PLT 158 103/ul Normal 150-450 [facility] Comment on above: Performed By: #### C BC #### [facility] [address] [address] [address] Sofiya Lozano RBC 4.25 106/ul Normal 4.20-5.40 [facility] Comment on above: Performed By: #### C BC #### [facility] [address] [place] [address] Dr. Sofiya Lozano WBC 4.9 103/ul Normal 4.0-11.0 [facility] Comment on above: Performed By: #### C BC #### [facility] [address] [place] [address] Dr. Sofiya Lozano PROF CHEM 8 (BAS METB)on Anion gap [Moles/Vol] 10.1 mmol/L Normal [facility] Comment on above: Performed By: #### B MP #### [facility] [address] [place] [address] Dr. Sofiya Lozano Calcium [Mass/Vol] 8.5 mg/dL Normal 8.5-10.1 [facility] Comment on above: Performed By: #### B MP #### [facility] [address] [place] [address] Dr. Sofiya Lozano Chloride [Moles/Vol] 102 mmol/L Normal 98-107 [facility] Comment on above: Performed By: #### B MP #### [facility] [address] [place] [address] Dr. Sofiya Lozano CO2 [Moles/Vol] 28.1 mmol/L Normal 21.0-32.0 [facility] Comment on above: Performed By: #### B MP #### [facility] [address] [address] [address] Sofiya Lozano Creatinine [Mass/Vol] 0.97 mg/dL Normal 0.55-1.02 [facility] Comment on above: Performed By: #### B MP #### [facility] [address] [address] [address] Sofiya Lozano EGFR-AF VIETNAMESE >60 Normal >=60 [facility] Comment on above: Performed By: #### B MP #### [facility] [address] [address] [address] Sofiya Lozano EGFR-NON AF VIETNAMESE 55 mL/min/1.73m2 Critically low >=60 [facility] Comment on above: Performed By: #### B MP #### [facility] [address] [address] [address] Sofiya Lozano Glucose [Mass/Vol] 128 mg/dL Critically high 74-106 [facility] Comment on above: Performed By: #### B MP #### [facility] [address] [address] [address] Sofiya Lozano Potassium [Moles/Vol] 4.2 mmol/L Normal 3.5-5.1 [facility] Comment on above: Performed By: #### B MP #### [facility] [address] [address] [address] Sofiya Lozano Sodium [Moles/Vol] 136 mmol/L Normal 136-145 [facility] Comment on above: Performed By: #### B MP #### [facility] [address] [address] [address] Sofiya Lozano Urea nitrogen [Mass/Vol] 20.0 mg/dL Critically high 7.0-18.0 [facility] Comment on above: Performed By: #### B MP #### [facility] [address] [address] [address] Sofiya Lozano Urea nitrogen/Creatinine [Mass ratio] 20.6 mg/mg Normal [facility] Comment on above: Performed By: #### B MP #### [facility] [address] [address] [address] Sofiya Lozano PROTIMEon 08-09-2022 INR Coag (PPP) [Relative time] 2.00 {INR} Normal [facility] Comment on above: Performed By: #### P TT, PT #### [facility] [address] [address] [address] Sofiya Lozano INR GUIDELINES SEE BELOW Normal [facility] Comment on above: Result Comment: FIGUEROA RED INR: 2.0 - 3.0 CONDITIONS NOT LISTED BELOW 2.5 - 3.5 FOR PROSTHETIC HEART VALVE REPLACEMENT 2.5 - 3.5 RECURRENT THROMBOSIS Performed By: #### P TT, PT #### [facility] [address] [address] [address] Sofiya Lozano PT Coag (PPP) [Time] 20.6 s Critically high 9.0-11.6 [facility] Comment on above: Performed By: #### P TT, PT #### [facility] [address] [address] [address] Sofiya Lozano PTTon 08-09-2022 aPTT Coag (Bld) [Time] 38.5 s Critically high 22.3-36.2 [facility] Comment on above: Performed By: #### P TT, PT ####[facility] [address] [address]Dr. Sofiya Lozano US VENOUS DOPPLER L Isabel [...] CONCEPCIÓN WOMACK Date: 2022-08-09 15:59 Normal [facility] PROTIMEon 05-13-2022 INR Coag (PPP) [Relative time] 2.76 {INR} Normal [facility] Comment on above: Performed By: #### P T #### [facility] [address] [address] [address] Sofiya Lozano INR GUIDELINES SEE BELOW Normal [facility] Comment on above: Result Comment: FIGUEROA RED INR: 2.0 - 3.0 CONDITIONS NOT LISTED BELOW 2.5 - 3.5 FOR PROSTHETIC HEART VALVE REPLACEMENT 2.5 - 3.5 RECURRENT THROMBOSIS Performed By: #### P T #### [facility] [address] [address] [address] Sofiya Lozano PT Coag (PPP) [Time] 27.9 s Critically high 9.0-11.6 [facility] Comment on above: Performed By: #### P T #### [facility] [address] [place] [address] Dr. Sofiya Lozano PROTIMEon 04-15-2022 INR Coag (PPP) [Relative time] 2.18 {INR} Normal [facility] Comment on above: Performed By: #### P T #### [facility] [address] [place] [address] Dr. Sofiya Lozano INR GUIDELINES SEE BELOW Normal [facility] Comment on above: Result Comment: FIGUEROA RED INR: 2.0 - 3.0 CONDITIONS NOT LISTED BELOW 2.5 - 3.5 FOR PROSTHETIC HEART VALVE REPLACEMENT 2.5 - 3.5 RECURRENT THROMBOSIS Performed By: #### P T #### [facility] [address] [place] [address] Dr. Sofiya Lozano PT Coag (PPP) [Time] 22.4 s Critically high 9.0-11.6 [facility] Comment on above: Performed By: #### P T #### [facility] [address] [place] [address] Dr. Sofiya Lozano VIT D 25-OH LABCORPon 2021 Vitamin D, 25-Hydroxy 23.7 ng/mL Critically low 30.0-100.0 [facility] Comment on above: Result Comment: Jailyn min D deficiency has been defined by the [place] of Medicine and an Endocrine Society practice guideline as a level of serum 25-OH vitamin D less than 20 ng/mL (1,2). The Endocrine Society went on to further define vitamin D insufficiency as a level between 21 and 29 ng/mL (2). 1. IOM ([place] of Medicine). 2010. Dietary reference intakes for calcium and D. [place]: The National Academies Press. 2. Negin MF, Francisco CUNNINGHAM, Summer FERNANDEZ, et al. Evaluation, treatment, and prevention of vitamin D deficiency: an Endocrine Society clinical practice guideline. JCEM. 2010; 96(7):1911-30. Performed By: #### V ITADLC #### [facility] [address] [address] [address] Sofiya Lozano VITAMIN B12on 03-01-2022 Cobalamin (Vitamin B12) [Mass/Vol] 258.0 pg/mL Normal 193.0-986.0 [facility] Comment on above: Performed By: #### V ITB12 #### [facility] [address] [address] [address] Sofiya Lozano PROTIMEon 12-24-2021 INR Coag (PPP) [Relative time] 1.79 {INR} Normal [facility] Comment on above: Performed By: #### P T #### [facility] [address] [address] [address] Sofiya Lozano INR GUIDELINES SEE BELOW Normal [facility] Comment on above: Result Comment: FIGUEROA RED INR: 2.0 - 3.0 CONDITIONS NOT LISTED BELOW 2.5 - 3.5 FOR PROSTHETIC HEART VALVE REPLACEMENT 2.5 - 3.5 RECURRENT THROMBOSIS Performed By: #### P T #### [facility] [address] [address] [address] Sofiya Lozano PT Coag (PPP) [Time] 18.6 s Critically high 9.0-11.6 [facility] Comment on above: Performed By: #### P T #### [facility] [address] [place] [address] Dr. Sofiya Lozano Encounters Encounter Date Encounter Type Care Provider Facility Start: 11-29-2024 End: 11-29-2024 ambulatory STEPHANY HARGROVE [facility] Start: 11-15-2024 End: 04-14-2025 ambulatory MARY GILMORE [facility] Start: 05-17-2024 End: 05-17-2024 [facility] Start: 03-15-2024 End: 03-15-2024 ambulatory FATMATA Barney [facility] Start: 02-17-2024 End: 02-23-2024 Evaluation and management of inpatient FATMATA S [facility] Start: 02-09-2024 End: 02-09-2024 [facility] Start: 02-02-2024 End: 02-02-2024 [facility] Start: 02-02-2024 End: 02-02-2024 Subsequent hospital visit by physician Fatmata Bellamy APRN - [facility] Start: 01-26-2024 End: 01-26-2024 ambulatory [facility] Start: 01-23-2024 End: 01-25-2024 ambulatory [facility]ER [facility] Start: 01-23-2024 End: 01-25-2024 Subsequent hospital visit by physician Dima Cat Scan Room [facility] CT Scan Comment on above: SDH (subdural hemato ma) ([facility]) Start: 01-19-2024 End: 01-19-2024 ambulatory [facility] Start: 01-15-2024 End: 01-15-2024 ambulatory [facility] Start: 01-15-2024 End: 01-15-2024 Subsequent hospital visit by physician Fatmata Bellamy APRN - [place] Work Phone[facility] Start: 07-03-2023 End: 07-03-2023 ambulatory MOISES Andrés SANCHEZ [facility] Start: 12-14-2022 Encounter for genera l adult medical examination without abnormal findings DR MOISES SANCHEZ . [facility] Start: 12-10-2022 End: 12-11-[address] MOISES SANCHEZ . Facility: Start: 12-10-2022 End: 12-11-2022 Encounter for general adult medical examination without abnormal findings DR MOISES SANCHEZ . Facility:[facility]1 Start: 08-12-2022 ambulatory FATMATA BELLAMY Facility: [facility]1 Start: 08-09-2022 End: 08-09-2022 ambulatory FATMATA DOMÍNGUEZMER Facility:[facility]1 Start: 05-13-2022 End: 06-03-[address] MOISES SANCHEZ . Facility:[facility]1 Start: 04-15-2022 End: 05-04-[address] MOISES SANCHEZ . Facility:[facility]1 Start: 03-01-2022 End: 03-02-2022 ambulatory FATMATAZULEMA BELLAMY Facility:[facility]1 Start: 12-24-2021 End: 01-01-[address] MOISES SANCHEZ . Facility:[facility]1 Procedures Date Procedure Procedure Detail Performing Clinician Start: 02-02-2024 Comprehensive metabo lic panel Tae Lawrence MD Work Phone: Start: 01-15-2024 Comprehensive metabo lic panel Tae Lawrence MD Work Phone: Plan of Treatment Date Care Activity Detail Author Start: 03-04-2024 Influenza vaccination Flu vaccine (# 1) [facility] Start: 02-19-2024 End: 02-19-2024 Patient encounter procedure 02/19/2024 10:30 AM EDT Office Visit [facility] [address] [place] [address] [phone] Emily Diaz DO [address] [facility] [address] [facility] [address] [place] [address] Follow up with Sylvia or Adelina in two weeks with CTH prior to appointment for SDH [facility] Comment on above: Follow up with Sylvia or Adelina in two weeks with CTH prior to appointment for SDH Start: 02-09-2024 End: 02-09-2024 Patient encounter procedure 02/09/2024 11:30 AM EDT Office Visit [facility] [address] [facility] [address] [place] [address] [phone] Austin Zee, DO [address] [facility] [address] [place] [address] LEFT PROX HUMERUS/ RIGHT TIB COMING FORM [facility]. R/S w/Deisy due to Covid [phone] [facility] Comment on above: LEFT PROX HUMERUS/ R IGHT TIB COMING FORM [facility]. R/S w/Deisy due to Covid [phone] Start: 02-02-2024 End: 02-02-2024 Patient encounter procedure 02/02/2024 10:15 AM EDT Office Visit [facility] [address] [facility] [address] [place] [phone] Austin Zee, DO [address] [address] LEFT PROX HUMERUS/ RIGHT TIB COMING FORM [facility] Comment on above: LEFT PROX HUMERUS/ R IGHT TIB COMING FORM [facility] Start: 01-21-2024 End: 01-21-2024 Patient encounter procedure 01/21/2024 3:15 PM EDT Office Visit [facility] [address] [phone] Austin Zee, DO [address] [phone] R fem IMN, closed tx left proximal humerus [facility] Comment on above: R fem IMN, closed tx left proximal humerus Start: 01-21-2024 End: 01-21-2024 Patient encounter procedure 01/21/2024 11:30 AM EDT Office Visit [facility] [address] [place] [address] [address] - [address] Floor, [address] [place] [phone] Sylvia Malone W, INCOME TAX ADMINISTRATOR - WATERWORKS SUPERVISOR [address] [facility] [address] [place], [place] [address] Follow up with Sylvia or Adelina in two weeks with CTH prior to appointment for SDH [facility] Comment on above: Follow up with Sylvia or Adelina in two weeks with CTH prior to appointment for SDH Start: 08-04-2023 Annual Wellness Visi t (Medicare Advantage) Annual Wellness Visit (Medicare Advantage) [facility] Start: 04-04-2023 COVID-19 Vaccine ( season) COVID-19 Vaccine ( season) [facility] Start: 1999 Respiratory Syncytia l Virus (RSV) or age 60 yrs+ (1 - 1-dose 60+ series) Respiratory Syncytial Virus (RSV) or age 60 yrs+ (1 - 1-dose 60+ series) [facility] Start: 1994 Screening for osteoporosis DEXA (modify frequency per FRAX score) [facility] Start: 1958 DTaP/Tdap/Td vaccine (1 - Tdap) DTaP/Tdap/Td vaccine (1 - Tdap) [facility] Start: 1951 Depression Screen Depression Screen [facility] End: 01-23-2024 CT Head WO contrast [facility] Work Phone: Comment on above: 1 Occurrences starti ng 01/23/2024 until 01/23/2024 Payers Date Payer Category Payer Self-pay [id number] 1960 Unknown [id number] 1939 Unknown [id number] 2.16.84 [id number] 1939 Unknown [id number] 2.16.84 0.1.394085.3.579.2.593 1939 Unknown [id number] 2.16.84 0.1.954096.3.579.2.593 1939 Unknown [id number] 2.16.84 0.1.850201.3.579.2.593 1939 Unknown [id number] 2.16.84 0.1.567357.3.579.2.593 1939 Unknown [id number] 2.16.84 0.1.644050.3.579.2.593 1939 Unknown [id number] 2.16.84 0.1.051674.3.579.2.593 1939 Unknown [id number] 2.16.8 40.1.602665.3.579.2.173 1939 Unknown [id number] 2.16.8 40.1.713825.3.579.2.173 1939 Unknown [id number] 2.16.8 40.1.477731.3.579.2.173 1939 Unknown [id number] 2.16.8 40.1.975190.3.579.2.173 1939 Unknown [id number] 2.16.8 40.1.093998.3.579.2.173 1939 Unknown [id number] 2.16. 840.1.712456.3.579.2.175 1939 Unknown [id number] 2.16. 840.1.586563.3.579.2.175 1939 Unknown [id number] 2.16. 840.1.886867.3.579.2.175 1939 Unknown [id number] 2.16. 840.1.875066.3.579.2.175 1939 Unknown [id number] 2.16. 840.1.245764.3.579.2.175 1939 Unknown [id number] 2.16 840.1.568433.3.579.2.175 Social History Date Type Detail Facility Start: 01-10-2024 Tobacco smoking stat [facility] Never smoked tobacco [facility] Start: 01-10-2024 Tobacco use and exposure Smokeless tobacco non-user [facility] Start: 01-05-2024 End: 01-10-2024 History of Social function [employer] [employer] Start: 01-05-2024 End: 01-10-2024 Tobacco use panel [facility] [place] [facility] Physical abuse Denies [facility] [employer] [facility] Start: 1940 Sex Assigned At Not on file B [facility] [place] [facility] Medical Equipment Procedure Code Equipment Code Equipment Origin al Text Equipment Identifier Dates Nail Im Fem 12x4 20 Mm Rt Greater Trochanteric Strl T2 Alpha - [id number], [id number] FDA Start: 01-06-2024 Screw Bne L90mm Dia6.5mm Canc Fem Ti Lag Rory Saad Partially - [id number] ()[id number], [id number] FDA Start: 01-06-2024 Screw Bne L90mm Dia6.5mm Canc Fem Ti Lag Rory Saad Partially - [id number] ()[id number] [id number], [id number] FDA Start: 01-06-[address] 5x37 5mm - [id number] ()[id number] [id number], [id number] FDA Start: 01-06-2024 Screw Bne L50mm Dia5mm Saad For T2 Alpha Nailing Sys - [id number] ()[id number] [id number], [id number] FDA Start: 01-06-2024 Screw Bne Lck 5x 45 Mm Adv Strl Alpha - [id number] Start: 01-06-2024 Clinical Note 03-01-2022 Note [...] by: BERTO ALEJO Date: 2022-03-01 17:38 [facility] Evaluation note Note Date & Type Note Facility Evaluation note Diagnosis SDH (subdural hematoma) (HCC) Subdural hemorrhage documented in this encounter [facility] Summary Purpose Family History No Family [...] WO CONTRAST Ger Guzman APRN - CNP [address] [place] [address] Referral ID Status Reason Start Date Expiration Date Visits Re quested Visits Authorized [id number] Closed 01/20/2024 04/18/2024 1 1 Additional Source Comments INFORMATION SOURCE (unrecogn ized section and content) DATE CREATED AUTHOR 12/15/2022 [facility] DATE CREATED AUTHOR AUTHOR'S ORGANIZ ATION 02/03/2024 [facility] DATE CREATED AUTHOR AUTHOR'S ORGANIZ ATION 01/09/2025 [facility] Care Teams (unrecognized sec tion and content) Director Of Instructional Technology Relationship Specialty Start Date End Date Fatmata Bellamy APRN - CNP [address] [place] [address] [place] [address] PCP - General 01/06/24 Director Of Instructional Technology Relationship Specialty Start Date End Date Fatmata BellamyKARISSA [facility] [address] [facility] [place] [address] PCP - General 01/06/24 Director Of Instructional Technology Relationship Specialty Start Date End Date Fatmata Bellamy, KARISSA [facility] [address] [facility] [place] [address] PCP - General 01/06/24 Reason for Visit (unrecogniz ed section and content) Specialty Diagnoses / Procedures Referred By Contmarissa t Referred To Contact Radiology Diagnoses SDH (subdural hematoma) (HCC) Procedures CT HEAD WO Ger Parks, INCOME TAX ADMINISTRATOR - WATERWORKS SUPERVISOR [address] [address] Referral ID Status Reason Start Date Expiration Date Visits Re quested Visits Authorized [id number] Closed 01/20/2024 04/18/2024 1 1 FOR RECORDS [...] BE BASED ON THE PRIMARY CLINICAL RECORDS. [facility] [employer] provides no warranty or guarantee of the accuracy or completeness of information in this document.
--- OUTSIDE RECORDS SUMMARY | 2025-01-11 02:41 | XMS_ITS | Encounter Summary ---
Author Organization [facility] Address [address] [place] [address] Care Team Providers Care Caustic Room Operator Name Role Phone Fatmata Adams APRN [facility] Primary Care Provide r Reason for Referral * Imaging (Routine) - Closed Specialty Diagnoses / Procedures Referred By Brianna christensen Referred To Contact Radiology Diagnoses Nonintractable headache, unspecified chronicity pattern, unspecified headache type Procedures MRI BRAIN WO CONTRAST Fatmata Adams, KARISSA - COLLEGE SPORTS ASSISTANT [address] [place] [address] Phone: tel: fax: Referral ID Status Reason Start Date Expiration Date Visits Re quested Visits Authorized [id number] Closed 08/09/2022 08/09/2023 1 1 Encounter Details Date Type Department Care Team (Latest Contact Info) Description 08/09/2022 Transcribe Orders Chin Pre Access [address] [place] [address] [phone] Fatmata Adams, PUMP ROOM OPERATOR - [facility] [address] [place] [address] Nonintractable headache, unspecified chronicity pattern, unspecified headache [...] Description 02/16/2025 10:30 AM EDT Office Visit [facility] [address] [facility] [address] [place] [address] Isaiah Bueno PA [address] [facility] [address] [place] [address] 3mfu Lt shoulder, rt femur Scheduled Orders Name Type Priority Associated Diagnoses Orde r Schedule MRI BRAIN WO CONTRAST Imaging Routine Nonintractable headache, unspecified chronicity pattern, unspecified headache type Expected: 08/09/2022, Expires: 08/09/2023 documented as of this encounter Visit Diagnoses Diagnosis Nonintractable headache, unspecified chronicity pattern, unspecified headache type- Primary documented in this encounter Care Teams Caustic Room Operator Relationship Specialty Start Date End Date Fatmata Adams, PUMP ROOM OPERATOR - COLLEGE SPORTS ASSISTANT [address] [place] [id number] PCP - General 01/06/24 documented as of this encounter
--- OUTSIDE RECORDS SUMMARY | 2025-01-11 02:42 | XMS_ITS | Patient Health Record ---
Author Organization [facility] in [place] Address [address] [place] [address] Care Team Providers Care Security Messenger Name Role Phone Girma Denilson Primary Care Provider FATMATA BELLAMY Unavailable [phone] Fatmata Bellamy Unavailable [phone] Allergies Allergen (clinical drug ingredient) Drug/Non Drug Allergy documented on EMR Reaction Allergy Type Onset Date Status Substance with sulfonamide structure and antibacterial mechanism of action (substance) Sulfa Antibiotics panic Drug Allergy Active Results Component Value Reference Range Notes CBC AUTO DIFF Reviewed date:04/09/2024 04:00:26 PM Interpretation: Performing Lab: Notes/Report: [facility] , White Blood Count 6.3 4.0-11.0 10 3/uL Red Blood Count 4.18 4.20-5.40 10 6/uL Hemoglobin 12.3 12.0-16.0 g/dL Hematocrit 39.0 36.0-48.0 % Mean Corpuscular Volume 93.3 81.0-99.0 fL Mean Corpuscular Hemoglobin 29.4 26.7-34.0 pg Mean Corpuscular HGB Conc 31.5 29.9-35.2 g/dL Red Cell Distribution Width 15.7 11.0-15.0 % Platelet Count 216 150-450 10 3/uL Mean Platelet Volume 12.7 9.5-13.5 fL Neutrophils Percent Auto 55.8 43.0-75.0 % Lymphocytes Percent Auto 33.6 20.5-60.0 % Monocytes Percent Auto 8.4 1.7-12.0 % Eosinophils Percent Auto 1.4 0.9-7.0 % Basophils Percent Auto 0.5 0.2-2.0 % Immature Granulocytes Pct Auto 0.3 0.0-0.5 % Neutrophils Absolute Auto 3.5 1.4-6.5 10 3/uL Lymphocytes Absolute Auto 2.1 1.2-3.8 10 3/uL Monocytes Absolute Auto 0.5 0.3-0.8 10 3/uL Eosinophils Absolute Auto 0.1 0.0-0.7 10 3/uL Basophils Absolute Auto 0.0 0.0-0.1 10 3/uL Immature Granulocytes Abs Auto 0.02 0.00-0.03 10 3/uL Performing Lab: see note - [facility] FREE T4 Reviewed date:04/09/2024 04:00:26 PM Interpretation: Performing Lab: Notes/Report: [facility] , Free T4 1.00 0.76-1.46 ng/dL Performing Lab: see note [facility] GLYCOHEMOGLOBIN A1C Reviewed date:04/09/2024 04:00:26 PM Interpretation: Performing Lab: Notes/Report: [facility] , Glycohemoglobin A1C 5.2 4.5-6.2 % ADA RECOMMENDED LIMIT 4.0 - 6.0 ADA THERAPEUTIC TARGET < 7.0 ACTION SUGGESTED > 7.0 Estimated Average Glucose 103 Performing Lab: see note [facility] INSULIN Reviewed date:04/09/2024 04:00:26 PM Interpretation: Performing Lab: Notes/Report: [facility] , Insulin 43.0 2.6-24.9 uIU/mL Performed at: - [facility] [address] [id number] Special Investigation Unit Investigator: Hai Herman PhD, Phone: [phone] Performing Lab: see note - [facility] LB MR lumbar spine wo con Reviewed date:12/16/2024 10:19:57 AM Interpretation: Performing Lab: Notes/Report: Source Facility: [facility] [place] [address] [place] [address] Magnetic Resonance Report Signed Patient: MARGARET JAIN MR#: [id number] : 1940 Acct:[id number] Age/Sex: 84 / F ADM Date: 12/15/24 Loc: MRI Attending Dr: FATMATA BELLAMY Ordering Physician: FATMATA BELLAMY Date of Service: 12/15/24 Procedure(s): MR lumbar spine wo con Accession Number(s): [id number] cc: FATMATA BELLAMY [place] [id number] Patient Name: MARGARET JAIN MRN: [facility]:[id number] date: 1940 Sex: F Assigned Patient Location: MRI Current Patient Location: MRI Accession/Order Number: [id number] Exam Date: 12/15/2024 14:29 Report Date: 12/15/2024 14:36 At the request of: FATMATA BELLAMY Procedure: MR lumbar spine wo con MR lumbar spine wo con 12/15/2024 11:44 AM SIGNS AND SYMPTOMS: Low back pain radiating into right hip Spondylolisthesis PROTOCOL: Multiplanar multisequence MR images of the lumbar spine without IV contrast COMPARISON: 05/31/2021 FINDINGS: 2 mm of retrolisthesis of L2 upon L3. There is 3 mm of anterolisthesis of L4 upon L5.. There is preservation of vertebral body heights. There is disc desiccation and mild disc height loss at L2-L3 at L3-L4. There is disc desiccation and moderate to severe disc height loss at L5-S1. There is Modic type II fatty endplate degenerative change at L5-S1.. The marrow signal is within normal limits, otherwise. The conus terminates at the superior endplate of the L2 vertebral body level. No epidural or paraspinous fluid collection is appreciated. 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 This abuts the lateral margin of the L3 vertebral body on the right also approximating the exiting right L3 nerve roots in the lateral margin of the right elbow 3 L4 neural foramen. No definite extent into the spinal canal. Lesion appears to extend anteriorly and inferiorly along the iliopsoas off of the inferior margin of the exam. There is a large simple cyst in the right renal cortex. At T12-L1: There is a normal disc, central canal, and neural foramen. At L1-L2: There is a normal disc, central canal, and neural foramen. At L2-L3: There is a broad-based disc bulge with facet hypertrophy and ligament flavum thickening. There is mild narrowing of the spinal canal with moderate right neural foraminal stenosis. At L3-L4: There is a broad-based disc bulge with facet hypertrophy and ligament flavum thickening. There is moderate spinal canal stenosis. No significant neural foraminal narrowing is noted. At L4-L5: There is a broad-based disc bulge with facet hypertrophy. There is mild spinal canal stenosis with mild to moderate left and moderate neural foraminal narrowing. At L5-S1: There is a circumferential disc bulge with facet hypertrophy and ligamentum flavum thickening. There is mild spinal canal narrowing with moderate to severe right and moderate left neural foraminal narrowing. Is mild mass effect on the exiting right L5 nerve roots. 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 This abuts the lateral margin of the L3 vertebral body on the right also approximating the exiting right L3 nerve roots in the lateral margin of the right elbow 3 L4 neural foramen. No definite extent into the spinal canal. Lesion appears to extend anteriorly and inferiorly along the iliopsoas off of the inferior margin of the exam. Follow-up with contrast-enhanced MR images of the lumbar spine and contrast-enhanced CT of the abdomen and pelvis may be helpful in further defining this process. At L5-S1: There is a circumferential disc bulge with facet hypertrophy and ligamentum flavum thickening. There is mild spinal canal narrowing with moderate to severe right and moderate left neural foraminal narrowing. Is mild mass effect on the exiting right L5 nerve roots. Lesser degrees of degenerative changes are noted as above. Impression dictated by: Rohith Harris M.D. 12/15/2024 2:36 PM Dictation Location: [place] [address] Electronically authenticated by: [id number] Y Date: 12/15/2024 14:36 Dictated By: Rohith Harris M.D. Signed By: 12/15/24 1439 DD/ 1436 TD/TT: Hide Puller: The [place] [id number] Magnetic Resonance Report Signed Patient: MARGARET JAIN MR#: [id number] : 1940 Acct:[id number] Age/Sex: 84 / F ADM Date: 12/15/24 Loc: MRI Attending Dr: FATMATA BELLAMY Ordering Physician: FATMATA BELLAMY Date of Service: 12/15/24 Procedure(s): MR lum bar spine wo con Accession Number(s): [id number] cc: FATMATA BELLAMY [place] [address] Patient Name: MARGARET JAIN MRN: [facility]:[id number] date: 1940 Sex: F Assigned Patient Location: MRI Current Patient Location: MRI Accession/Order Numb er: [id number] Exam Date: 12/15/2024 14:29 Report Date: 12/15/2024 14:36 At the request of: FATMATA BELLAMY Procedure: MR lumbar spine wo con MR lumbar spine wo c on 12/15/2024 11:44 AM SIGNS AND SYMPTOMS: Low back pain radiating into right hip Spondylolisthesis PROTOCOL: Multiplana r multisequence MR images of the lumbar spine without IV contrast COMPARISON: 05/31/2021 FINDINGS: 2 mm of retrolisthesis of L2 upon L3. There is 3 mm of anterolisthesis of L 4 upon L5.. There is preservation of vertebral body heights. There is di sc desiccation and mild disc height loss at L2-L3 at L3-L4. There is disc desiccation and moderate to severe disc height loss at L5-S1. There is Lizet c type II fatty endplate degenerative change at L5-S1.. The marrow signal is within normal limits, otherwise. The conus terminates at the superior endplat e of the L2 vertebral body level. No epidural or paraspinous fluid collection is appreciated. 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 This abuts the lateral margin of the L3 vertebral body on the right also approximating the exiting right L3 nerve roots in the lateral margin of the right elbow 3 L4 neural foramen. No definite extent into the spinal canal. Lesion appears to extend anteriorly and inferiorly along the iliopsoas off of the inferior margin of the exam. There is a large simple cyst in the right renal cortex. At T12-L1: There is a normal disc, central canal, and neural foramen. At L1-L2: There is a normal disc, central canal, and neural foramen. At L2-L3: There is a broad-based disc bulge with facet hypertrophy and ligament flavum thickening. There is mild narrowing of the spinal canal with moderate right neura l foraminal stenosis. At L3-L4: There is a broad-based disc bulge with facet hypertrophy and ligament flavum thickening. There is moderate spinal canal stenosis. No significant neural foraminal narrowing is noted. At L4-L5: There is a broad-based disc bulge with facet hypertrophy. There is mild spinal canal stenosis with mild to moderate left and moderate neural foraminal narrowing. At L5-S1: There is a circumferential disc bulge with facet hypertrophy and ligamentum flavum thickening. There is mild spinal canal narrowing with moderate to severe r ight and moderate left neural foraminal narrowing. Is mild mass effect on the exiting right L5 nerve roots. M R/MR lumbar spine wo con IMPRESSION: There is a bilobed m ass involving the right iliopsoas and posterior paraspinous musculat ure measuring at least 9.4 x 5.7 x 8.3 cm in greatest dimension. This abut s the lateral margin of the L3 vertebral body on the right also approxima ting the exiting right L3 nerve roots in the lateral margin of the right elbow 3 L4 neural foramen. No definite extent into the spinal canal. Lesion appears to extend anteriorly and inferiorly along the iliopsoas off of the inferior margin of the exam. Follow-up with contrast-enhanced MR images of the lumbar spine and contrast-enhanced CT of the abdomen and pelv is may be helpful in further defining this process. At L5-S1: There is a circumferential disc bulge with facet hypertrophy and ligamentum flavum thickening. There is mild spinal canal narrowing with moderate to severe r ight and moderate left neural foraminal narrowing. Is mild mass effect on the exiting right L5 nerve roots. Lesser degrees of degenerative changes are noted as above. Impression dictated by: Rohith Harris M.D. 12/15/2024 2:36 PM Dictation Location: [place] [address] Electronically authenticated by: [id number] Y Date: 12/15/2024 14:36 Dictated By: Rohith Harris M.D. Signed By: 12/15/24 1439 DD/ 1436 TD/TT: Hide Puller: CBC AUTO DIFF Reviewed date:12/28/2024 09:18:42 AM Interpretation: Performing Lab: Notes/Report: [facility] , White Blood Count 6.5 4.0-11.0 10 3/uL Red Blood Count 4.01 4.20-5.40 10 6/uL Hemoglobin 12.2 12.0-16.0 g/dL Hematocrit 37.2 36.0-48.0 % Mean Corpuscular Volume 92.8 81.0-99.0 fL Mean Corpuscular Hemoglobin 30.4 26.7-34.0 pg Mean Corpuscular HGB Conc 32.8 29.9-35.2 g/dL Red Cell Distribution Width 16.7 11.0-15.0 % Platelet Count 220 150-450 10 3/uL Mean Platelet Volume 11.7 9.5-13.5 fL Neutrophils Percent Auto 70.4 43.0-75.0 % Lymphocytes Percent Auto 15.7 20.5-60.0 % Monocytes Percent Auto 11.6 1.7-12.0 % Eosinophils Percent Auto 1.6 0.9-7.0 % Basophils Percent Auto 0.5 0.2-2.0 % Immature Granulocytes Pct Auto 0.2 0.0-0.5 % Neutrophils Absolute Auto 4.6 1.4-6.5 10 3/uL Lymphocytes Absolute Auto 1.0 1.2-3.8 10 3/uL Monocytes Absolute Auto 0.8 0.3-0.8 10 3/uL Eosinophils Absolute Auto 0.1 0.0-0.7 10 3/uL Basophils Absolute Auto 0.0 0.0-0.1 10 3/uL Immature Granulocytes Abs Auto 0.01 0.00-0.03 10 3/uL Performing Lab: see note ML - [facility] LB PROF CHEM 8 (BAS METB) Reviewed date:12/28/2024 09:18:42 AM Interpretation: Performing Lab: Notes/Report: [facility] , Sodium 141 136-145 mmol/L Potassium 4.2 3.5-5.1 mmol/L Chloride 106 98-107 mmol/L Carbon Dioxide 27.8 21.0-32.0 mmol/L Anion Gap 11.4 Glucose 112 74-106 mg/dL Blood Urea Nitrogen 18.0 7.0-18.0 mg/dL Creatinine 0.90 0.55-1.02 mg/dL Estimated GFR ( Penny >60 >=60 mL/min/1.73m 2 Estimated GFR (Non- Anita 60 >=60 mL/min/1.73m 2 BUN Creatinine Ratio 20.0 Calcium 9.3 8.5-10.1 mg/dL Performing Lab: see note ML - [facility] LB UA (CLEAN or CATCH) HEAVY EQUIPMENT ENGINE MECHANIC or M ICRO IF IND. Reviewed date:12/28/2024 09:18:42 AM Interpretation: Performing Lab: Notes/Report: [facility] , Color Urine YELLOW YELLOW Clarity Urine CLEAR CLEAR Specific [place] Urine 1.025 1.005-1.025 pH Urine 6.0 5.0-9.0 Protein Urine NEGATIVE NEG/TRACE mg/dL Glucose Urine UA NEGATIVE NEGATIVE mg/dL Bilirubin Urine NEGATIVE NEGATIVE Ketones Urine NEGATIVE NEGATIVE mg/dL Blood Urine NEGATIVE NEGATIVE Nitrite Urine NEGATIVE NEGATIVE Urobilinogen Urine 0.2 0.2-1.0 EU/dL Leukocyte Esterase Urine NEGATIVE NEGATIVE Urine Microscopic Indicated NO Performing Lab: see note ML - [facility] LB LACTATE or LACTIC ACID Reviewed date:12/28/2024 09:18:42 AM Interpretation: Performing Lab: Notes/Report: [facility] , Lactate/Lactic Acid 2.4 0.4-2.0 mmol/L RESULT S CALLED TO amber clayton rn Performing Lab: see note ML - [facility] LB BNP Reviewed date:12/27/2024 03:28:37 PM Interpretation: Performing Lab: Notes/Report: [facility] , NT Pro B Type Natriuretic Pept 2019.0 <=1800.0 pg/mL RESULTS CALLED TO SALO DUNCAN RN Performing Lab: see note ML - [facility] LB LIVER PROFILE Reviewed date:12/27/2024 03:28:37 PM Interpretation: Performing Lab: Notes/Report: [facility] , Bilirubin Total 0.9 0.2-1.0 mg/dL Bilirubin Direct 0.3 0.0-0.2 mg/dL Aspartate Amino Transferase 23 15-37 U/L Alanine Aminotransferase 26 14-59 U/L Alkaline Phosphatase 87 46-116 U/L Total Protein 6.0 6.4-8.2 g/dL Albumin Level 2.8 3.4-5.0 g/dL Globulin 3.2 Albumin Globulin Ratio 0.9 Performing Lab: see note ML - [facility] LB MAGNESIUM Reviewed date:12/27/2024 03:28:37 PM Interpretation: Performing Lab: Notes/Report: [facility] , Magnesium 1.5 1.8-2.4 mg/dL Performing Lab: see note ML - [facility] LB PTT Reviewed date:12/27/2024 03:28:37 PM Interpretation: Performing Lab: Notes/Report: [facility] , Partial Thromboplastin Time 27.6 22.3-36.2 sec Performing Lab: see note ML - [facility] LB T4 Reviewed date:12/27/2024 03:28:37 PM Interpretation: Performing Lab: Notes/Report: [facility] , T4 Thyroxine 8.00 4.80-13.90 ug/dL Performing Lab: see note ML - [facility] LB TSH Reviewed date:12/27/2024 03:28:37 PM Interpretation: Performing Lab: Notes/Report: [facility] , Thyroid Stimulating Hormone 4.911 0.358-3.740 uIU/mL Performing Lab: see note ML - [facility] Prothrombin Time INR Reviewed date:12/27/2024 03:28:37 PM Interpretation: Performing Lab: Notes/Report: [facility] , Prothrombin Time 14.0 9.0-11.6 sec INR 1.36 DESIRED INR: 2.0-3.0 CONDITIONS NOT LISTED BELOW 2.5-3.5 FOR PROSTHETIC HEART VALVE REPLACEMENT 2.5-3.5 RECURRENT THROMBOSIS Performing Lab: see note ML - [facility] LB Troponin I High Sensitivity Reviewed date:12/27/2024 03:28:37 PM Interpretation: Performing Lab: Notes/Report: [facility] , Troponin I High Sensitivity 12.8 4.0-51.3 pg/mL CUT-OFF POINTS HAVE BEEN ESTABLISHED BASED ON THE FOURTH UNIVERSAL DEFINITION OF MYOCARDIAL INFARCTION. THE UPPER REFERENCE LIMIT (URL) OF TROPONIN, DEFINED THE 99TH PERCENTILE OF cTnI DISTRIBUTION IN A REFERENCE POPULATION, HAS BEEN CONFIRMED THE DECISION THRESHOLD FOR [place] DIAGNOSIS. 99TH PERCENTILE = 51.4 PG/ML NOTE: HIGH-SENSITIVITY TROPONIN ASSAY IS NOT INTENDED TO BE USED IN ISOLATION BUT SHOULD BE INTERPRETED IN CONJUNCTION WITH OTHER DIAGNOSTIC AND CLINICAL INFORMATION. Performing Lab: see note - [facility] LB BNP Reviewed date:12/28/2024 01:07:32 PM Interpretation: Performing Lab: Notes/Report: [facility] , NT Pro B Type Natriuretic Pept 5214.0 <=1800.0 pg/mL RESULTS CALLED TO JANELLE TOLEDO RN at 0721 Performing Lab: see note - [facility] LB CBC AUTO DIFF Reviewed date:12/28/2024 01:07:32 PM Interpretation: Performing Lab: Notes/Report: [facility] , White Blood Count 11.7 4.0-11.0 10 3/uL Red Blood Count 3.70 4.20-5.40 10 6/uL Hemoglobin 11.2 12.0-16.0 g/dL Hematocrit 34.0 36.0-48.0 % Mean Corpuscular Volume 91.9 81.0-99.0 fL Mean Corpuscular Hemoglobin 30.3 26.7-34.0 pg Mean Corpuscular HGB Conc 32.9 29.9-35.2 g/dL Red Cell Distribution Width 16.8 11.0-15.0 % Platelet Count 231 150-450 10 3/uL Mean Platelet Volume 11.9 9.5-13.5 fL Neutrophils Percent Auto 93.0 43.0-75.0 % Lymphocytes Percent Auto 4.0 20.5-60.0 % Monocytes Percent Auto 2.6 1.7-12.0 % Eosinophils Percent Auto 0.0 0.9-7.0 % Basophils Percent Auto 0.1 0.2-2.0 % Immature Granulocytes Pct Auto 0.3 0.0-0.5 % Neutrophils Absolute Auto 10.9 1.4-6.5 10 3/uL Lymphocytes Absolute Auto 0.5 1.2-3.8 10 3/uL Monocytes Absolute Auto 0.3 0.3-0.8 10 3/uL Eosinophils Absolute Auto 0.0 0.0-0.7 10 3/uL Basophils Absolute Auto 0.0 0.0-0.1 10 3/uL Immature Granulocytes Abs Auto 0.03 0.00-0.03 10 3/uL Performing Lab: see note - [facility] PROF CHEM 8 (BAS METB) Reviewed date:12/28/2024 01:07:32 PM Interpretation: Performing Lab: Notes/Report: [facility] , Sodium 148 136-145 mmol/L Potassium 3.3 3.5-5.1 mmol/L Chloride 105 98-107 mmol/L Carbon Dioxide 34.1 21.0-32.0 mmol/L Anion Gap 12.2 Glucose 146 74-106 mg/dL Blood Urea Nitrogen 33.0 7.0-18.0 mg/dL Creatinine 1.10 0.55-1.02 mg/dL Estimated GFR ( Penny 57 >=60 mL/min/1.73m 2 Estimated GFR (Non- Anita 47 >=60 mL/min/1.73m 2 BUN Creatinine Ratio 30.0 Calcium 8.6 8.5-10.1 mg/dL Performing Lab: see note ML - [facility] Prothrombin Time INR Reviewed date:12/28/2024 01:07:32 PM Interpretation: Performing Lab: Notes/Report: [facility] , Prothrombin Time 19.8 9.0-11.6 sec INR 2.00 DESIRED INR: 2.0-3.0 CONDITIONS NOT LISTED BELOW 2.5-3.5 FOR PROSTHETIC HEART VALVE REPLACEMENT 2.5-3.5 RECURRENT THROMBOSIS Performing Lab: see note ML - [facility] BNP Reviewed date:12/29/2024 07:40:54 PM Interpretation: Performing Lab: Notes/Report: [facility] , NT Pro B Type Natriuretic Pept 2985.0 <=1800.0 pg/mL RESULTS CALLED TO DMITRI NEWTON RN @BY Naomie Fischer at 0624 Performing Lab: see note - [facility] PROF CHEM 8 (BAS METB) Reviewed date:12/29/2024 07:40:54 PM Interpretation: Performing Lab: Notes/Report: [facility] , Sodium 148 136-145 mmol/L Potassium 3.0 3.5-5.1 mmol/L Chloride 103 98-107 mmol/L Carbon Dioxide 34.3 21.0-32.0 mmol/L Anion Gap 13.7 Glucose 166 74-106 mg/dL Blood Urea Nitrogen 35.0 7.0-18.0 mg/dL Creatinine 1.29 0.55-1.02 mg/dL Estimated GFR ( Penny 48 >=60 mL/min/1.73m 2 Estimated GFR (Non- Anita 39 >=60 mL/min/1.73m 2 BUN Creatinine Ratio 27.1 Calcium 8.6 8.5-10.1 mg/dL Performing Lab: see note ML - [facility] LB Prothrombin Time INR Reviewed date:12/29/2024 07:40:54 PM Interpretation: Performing Lab: Notes/Report: [facility] , Prothrombin Time 39.8 9.0-11.6 sec INR 4.34 RESULTS CALLED TO DMITRI NEWTON RN @BY Naomie Fischer at 0622 DESIRED INR: 2.0-3.0 CONDITIONS NOT LISTED BELOW 2.5-3.5 FOR PROSTHETIC HEART VALVE REPLACEMENT 2.5-3.5 RECURRENT THROMBOSIS Performing Lab: see note ML - [facility] LB CA echo doppler complete Reviewed date:12/28/2024 03:47:02 PM Interpretation: Performing Lab: Notes/Report: Source Facility: [place] [address] Cardiology Report Signed Patient: MARGARET JAIN MR#: [id number] : 1940 Acct:[id number] Age/Sex: 84 / F ADM Date: 12/26/24 Loc: MS 230-[address]: Moises Rayo M.D. Ordering Physician: Mioses Rayo M.D. Date of Service: 12/28/24 Procedure(s): CA echo doppler complete Accession Number(s): [id number] cc: FATMATA BELLAMY ; Moises Rayo M.D. Patient Name: MARGARET JAIN MR#: [id number] : 1940 Exam Date: 12/28/2024 Ordering Doctor: DR MOISES RAYO . ECHOCARDIOGRAM REPORT PROCEDURE: CA ECHO DOPPLER COMPLETE INDICATIONS: elevated bnp, atrial fibrillation, hypertension COMPARISON: None. DESCRIPTION: COMPLETE ECHOCARDIOGRAM Real-time transthoracic echocardiography with 2D, M-mode, spectral and color flow Doppler performed. QUALITY: Technical quality was good. LEFT VENTRICLE: Normal chamber size. Thickened septal wall. Systolic function is at the lower limits of normal. LV EF: Lower limits of normal left ventricular ejection fraction, (50-55%). DIASTOLIC: Not adequately assessed due to heart rhythm. ATRIAL SEPTUM: Visually appears intact. LEFT ATRIUM: Moderate dilatation. RIGHT ATRIUM: Severe dilatation. RIGHT VENTRICLE: Moderate dilatation. Mildly reduced right ventricular systolic function. TRICUSPID VALVE: Normal mobility and thickness. No stenosis with moderate to severe regurgitation. Doppler studies reveal moderately (45-60) elevated right sided pressures. RVSP 49 mmHg MITRAL VALVE: Normal mobility and thickness. No evidence of mitral valve stenosis. There is no mitral annular calcification. Mild mitral regurgitation. AORTIC VALVE: Normal trileaflet appearance. Mildly calcified aortic valve. Normal leaflet mobility. No evidence of aortic valve stenosis. Trivial aortic regurgitation. AORTIC ROOT: Normal diameter and appearance, measuring 3.2 cm. PULMONIC VALVE: Normal thickness and mobility. No stenosis. Mild regurgitation. PERICARDIUM: No evidence of pericardial effusion. IVC: IVC is normal in size, does not collapse. PLEURA: CONCLUSION: 1. The left ventricular is normal in size and exhibits low normal systolic function. Estimated LVEF is 50 to 55%. 2. Moderately dilated right ventricle with mildly reduced systolic function. 3. Moderate left and severe right atrial dilatation. 4. Moderate to severe tricuspid regurgitation. 5. Mild mitral and pulmonic regurgitation. 6. Moderately elevated right-sided pressures. RVSP is 49 mmHg. Adult Echocardiography Procedure Report Left Ventricle LVEDD (3.7 - 5.6 cm): 5.12 cm LVESD (2.2 - 4.0 cm): 3.62 cm LVIVS thickness (0.6 - 1.2 cm): 1.12 cm LVPW thickness (0.5 - 1.0 cm): 0.94 cm LVOT Max Gradient: 1.36 mm[Hg], 1.38 mm[Hg], 1.91 mm[Hg] LVOT Area (cm2): 0.62 m/s Peak Velocity (LVOT): 0.58 m/s, 0.59 m/s, 0.69 m/s LVOT Diameter 1.95 cm Left Atrium LA Volume Index (2D A2C): 45.41 ml/m2 Left Atrium Systolic Dimension: 4.47 cm Mitral Valve Mitral Valve E-Wave Peak Velocity: 0.92 m/s Right Ventricle Aorta AO Root Diam: 3.21 cm Aortic Valve AoV Area (Peak Ryan): 1.79 cm2, 1.67 cm2, 1.72 cm2 Peak Velocity(Antegrade Flow): 1.05 m/s, 1.02 m/s Peak Gradient(Antegrade Flow): 4.38 mm[Hg], 4.18 mm[Hg] Tricuspid Valve Peak Velocity (Regurgitant Flow): 2.85 m/s, 3.17 m/s, 3.24 m/s Pulmonic Valve Peak Velocity: 1.33 m/s Peak Gradient: 7.12 mm[Hg] Right Atrium Right Atrium Systolic Pressure: 107.90 ml, 107.90 ml Dictated by: Chuckie Stovall M.D. on 12/28/2024 at 13:19 Approved by: Chuckie Stovall M.D. on 12/28/2024 at 13:23 Dictated By: CHUCKIE STOVALL Signed By: 12/28/24 1325 DD/ 1323 TD/TT: Hide Puller: [place] [address] Cardiology Report Signed Patient: MARGARET JAIN MR#: [id number] : 1940 Acct:[id number] Age/Sex: 84 / F ADM Date: 12/26/24 Loc: MS 230-[address]: Ilda Rayo M.D. Ordering Physician: Moises Rayo M.D. Date of Service: 12/28/24 Procedure(s): CA ech o doppler complete Accession Number(s): [id number] cc: FATMATA BELLAMY Douglas M.D. Patient Name: MARGARET JAIN MR#: [id number] : 1940 Exam Date: 12/28/2024 Ordering Doctor: DR MOISES Junior ECHOCARDIOGRAM REPORT PROCEDURE: CA ECHO DOPPLER COMPLETE INDICATIONS: elevate d bnp, atrial fibrillation, hypertension COMPARISON: None. DESCRIPTION: COMPLET E ECHOCARDIOGRAM Real-time transthoracic echocardiography wit h 2D, M-mode, spectral and color flow Doppler performed. QUALITY: Technical quality was good. LEFT VENTRICLE: Norm al chamber size. Thickened septal wall. Systolic function is at the l ower limits of normal. LV EF: Lower limits of normal left ventricular ejection fraction, (50-55%). DIASTOLIC: Not adequately assessed due to heart rhythm. ATRIAL SEPTUM: Visua lly appears intact. LEFT ATRIUM: Moderat e dilatation. RIGHT ATRIUM: Severe dilatation. RIGHT VENTRICLE: Moderate dilatation. Mildly reduced right ventricular systolic function. TRICUSPID VALVE: Nor mal mobility and thickness. No stenosis with moderate to severe regurgitat ion. Doppler studies reveal moderately (45-60) elevated right sided pressure s. RVSP 49 mmHg MITRAL VALVE: Normal mobility and thickness. No evidence of mitral valve stenosis. There is n o mitral annular calcification. Mild mitral regurgitation. AORTIC VALVE: Normal trileaflet appearance. Mildly calcified aortic valve. Normal leaflet mobil ity. No evidence of aortic valve stenosis. Trivial aortic regurgitation. AORTIC ROOT: Normal diameter and appearance, measuring 3.2 cm. PULMONIC VALVE: Norm al thickness and mobility. No stenosis. Mild regurgitation. PERICARDIUM: No evid ence of pericardial effusion. IVC: IVC is normal i n size, does not collapse. PLEURA: CONCLUSION: 1. The left ventricu lar is normal in size and exhibits low normal systolic function. Estimated LVEF is 50 to 55%. 2. Moderately dilate d right ventricle with mildly reduced systolic function. 3. Moderate left and severe right atrial dilatation. 4. Moderate to sever e tricuspid regurgitation. 5. Mild mitral and pulmonic regurgitation. 6. Moderately elevat ed right-sided pressures. RVSP is 49 mmHg. Adult Echocardiograp hy Procedure Report Left Ventricle LVEDD (3.7 - 5.6 cm) : 5.12 cm LVESD (2.2 - 4.0 cm) : 3.62 cm LVIVS thickness (0.6 - 1.2 cm): 1.12 cm LVPW thickness (0.5 - 1.0 cm): 0.94 cm LVOT Max Gradient: 1 .36 mm[Hg], 1.38 mm[Hg], 1.91 mm[Hg] LVOT Area (cm2): 0.6 2 m/s Peak Velocity (LVOT) : 0.58 m/s, 0.59 m/s, 0.69 m/s LVOT Diameter 1.95 cm Left Atrium LA Volume Index (2D A2C): 45.41 ml/m2 Left Atrium Systolic Dimension: 4.47 cm Mitral Valve Mitral Valve E-Wave Peak Velocity: 0.92 m/s Right Ventricle Aorta AO Root Diam: 3.21 cm Aortic Valve AoV Area (Peak Ryan): 1.79 cm2, 1.67 cm2, 1.72 cm2 Peak Velocity(Antegr ghada Flow): 1.05 m/s, 1.02 m/s Peak Gradient(Antegr ghada Flow): 4.38 mm[Hg], 4.18 mm[Hg] Tricuspid Valve Peak Velocity (Regurgitant Flow): 2.85 m/s, 3.17 m/s, 3.24 m/s Pulmonic Valve Peak Velocity: 1.33 m/s Peak Gradient: 7.12 mm[Hg] Right Atrium Right Atrium Systoli c Pressure: 107.90 ml, 107.90 ml Dictated by: Chuckie Stovall M.D. on 12/28/2024 at 13:19 Approved by: Chuckie Stovall M.D. on 12/28/2024 at 13:23 Dictated By: CHUCKIE STOVALL Signed By: 12/28/24 1325 DD/ 22 TD/TT: Hide Puller: Manual Differential Reviewed date:12/27/2024 03:28:37 PM Interpretation: Performing Lab: Notes/Report: [facility] , Segmented Neutrophils % Manual 94.0 43.0-75.0 Band Neutrophils % 1.0 0-5 % Lymphocytes Percent Manual 3.0 20.5-60.0 % Monocytes Percent Manual 2.0 1.7-12.0 % Eosinophils Percent Manual 0.0 0.9-7.0 % Basophils Percent Manual 0.0 0.2-2.0 % Segmented Neut Absolute Manual 7.42 1.4-6.5 10 3/uL Band Neutrophils Absolute 0.1 0.0-0.3 10 3/uL Lymphocytes Absolute Manual 0.23 1.20-3.80 10 3/uL Monocytes Absolute Manual 0.15 0.30-0.80 10 3/uL Eosinophils Absolute Manual 0.00 0.00-0.70 10 3/uL Basophils Abs Manual 0.00 0.00-0.10 1 0 3/uL Anisocytosis 1+ Performing Lab: see note - [facility] Prothrombin Time INR Reviewed date:12/27/2024 03:28:37 PM Interpretation: Performing Lab: Notes/Report: [facility] , Prothrombin Time 13.8 9.0-11.6 sec INR 1.34 DESIRED INR: 2.0-3.0 CONDITIONS NOT LISTED BELOW 2.5-3.5 FOR PROSTHETIC HEART VALVE REPLACEMENT 2.5-3.5 RECURRENT THROMBOSIS Performing Lab: see note [facility] PROF CHEM 8 (BAS METB) Reviewed date:12/27/2024 03:28:37 PM Interpretation: Performing Lab: Notes/Report: [facility] , Sodium 145 136-145 mmol/L Potassium 3.9 3.5-5.1 mmol/L Chloride 106 98-107 mmol/L Carbon Dioxide 29.3 21.0-32.0 mmol/L Anion Gap 13.6 Glucose 163 74-106 mg/dL Blood Urea Nitrogen 27.0 7.0-18.0 mg/dL Creatinine 0.96 0.55-1.02 mg/dL Estimated GFR ( Penny >60 >=60 mL/min/1.73m 2 Estimated GFR (Non- Anita 55 >=60 mL/min/1.73m 2 BUN Creatinine Ratio 28.1 Calcium 8.6 8.5-10.1 mg/dL Performing Lab: see note - [facility] CBC AUTO DIFF Reviewed date:12/27/2024 03:28:37 PM Interpretation: Performing Lab: Notes/Report: [facility] , White Blood Count 7.9 4.0-11.0 10 3/uL Red Blood Count 3.39 4.20-5.40 10 6/uL Hemoglobin 10.4 12.0-16.0 g/dL Hematocrit 31.1 36.0-48.0 % Mean Corpuscular Volume 91.7 81.0-99.0 fL Mean Corpuscular Hemoglobin 30.7 26.7-34.0 pg Mean Corpuscular HGB Conc 33.4 29.9-35.2 g/dL Red Cell Distribution Width 16.5 11.0-15.0 % Platelet Count 221 150-450 10 3/uL Mean Platelet Volume 12.0 9.5-13.5 fL Performing Lab: see note - [facility] LB BNP Reviewed date:12/27/2024 03:28:37 PM Interpretation: Performing Lab: Notes/Report: [facility] , NT Pro B Type Natriuretic Pept 4092.0 <=1800.0 pg/mL RESULTS CALLED TO NIMA MEYERS RN AT 0753 Performing Lab: see note - [facility] Blood Culture 2 Reviewed date:12/31/2024 03:19:47 PM Interpretation: Performing Lab: Notes/Report: [facility] , Blood Culture 2 See Below For Report Blood Culture 2 NG5D NO GROWTH AT 5 DAYS.^NO GROWTH AT 5 DAYS. Performing Lab: see note - [facility] LB Blood Culture 1 Reviewed date:12/31/2024 03:19:59 PM Interpretation: Performing Lab: Notes/Report: [facility] , Blood Culture 1 See Below For Report Blood Culture 1 NG5D NO GROWTH AT 5 DAYS.^NO GROWTH AT 5 DAYS. Performing Lab: see note - [facility] LACTATE or LACTIC ACID Reviewed date:12/28/2024 09:18:42 AM Interpretation: Performing Lab: Notes/Report: [facility] , Lactate/Lactic Acid 2.7 0.4-2.0 mmol/L RESULT S CALLED TO VIVI PICKERING RN at 7660 Performing Lab: see note - [facility] Prothrombin Time INR Reviewed date:12/23/2024 02:12:59 PM Interpretation: Performing Lab: Notes/Report: [facility] , Prothrombin Time 38.2 9.0-11.6 sec INR 4.15 RESULTS CALLED TO LOAN MAY RN DESIRED INR: 2.0-3.0 CONDITIONS NOT LISTED BELOW 2.5-3.5 FOR PROSTHETIC HEART VALVE REPLACEMENT 2.5-3.5 RECURRENT THROMBOSIS Performing Lab: see note [facility] LB PROF 14(COMP METB) Reviewed date:12/23/2024 02:12:58 PM Interpretation: Performing Lab: Notes/Report: [facility] , Sodium 144 136-145 mmol/L Potassium 4.3 3.5-5.1 mmol/L Chloride 106 98-107 mmol/L Carbon Dioxide 28.4 21.0-32.0 mmol/L Anion Gap 13.9 Glucose 163 74-106 mg/dL Blood Urea Nitrogen 27.0 7.0-18.0 mg/dL Creatinine 1.04 0.55-1.02 mg/dL Estimated GFR ( Penny >60 >=60 mL/min/1.73m 2 Estimated GFR (Non- Anita 50 >=60 mL/min/1.73m 2 BUN Creatinine Ratio 26.0 Calcium 8.7 8.5-10.1 mg/dL Bilirubin Total 0.9 0.2-1.0 mg/dL Aspartate Amino Transferase 18 15-37 U/L Alanine Aminotransferase 32 14-59 U/L Alkaline Phosphatase 77 46-116 U/L Total Protein 5.7 6.4-8.2 g/dL Albumin Level 2.8 3.4-5.0 g/dL Globulin 2.9 Albumin Globulin Ratio 1.0 Performing Lab: see note ML - [facility] LB CBC AUTO DIFF Reviewed date:12/23/2024 02:12:58 PM Interpretation: Performing Lab: Notes/Report: [facility] , White Blood Count 8.2 4.0-11.0 10 3/uL Red Blood Count 4.12 4.20-5.40 10 6/uL Hemoglobin 12.4 12.0-16.0 g/dL Hematocrit 38.4 36.0-48.0 % Mean Corpuscular Volume 93.2 81.0-99.0 fL Mean Corpuscular Hemoglobin 30.1 26.7-34.0 pg Mean Corpuscular HGB Conc 32.3 29.9-35.2 g/dL Red Cell Distribution Width 16.9 11.0-15.0 % Platelet Count 208 150-450 10 3/uL Mean Platelet Volume 11.9 9.5-13.5 fL Neutrophils Percent Auto 81.0 43.0-75.0 % Lymphocytes Percent Auto 9.3 20.5-60.0 % Monocytes Percent Auto 9.1 1.7-12.0 % Eosinophils Percent Auto 0.2 0.9-7.0 % Basophils Percent Auto 0.2 0.2-2.0 % Immature Granulocytes Pct Auto 0.2 0.0-0.5 % Neutrophils Absolute Auto 6.6 1.4-6.5 10 3/uL Lymphocytes Absolute Auto 0.8 1.2-3.8 10 3/uL Monocytes Absolute Auto 0.7 0.3-0.8 10 3/uL Eosinophils Absolute Auto 0.0 0.0-0.7 10 3/uL Basophils Absolute Auto 0.0 0.0-0.1 10 3/uL Immature Granulocytes Abs Auto 0.02 0.00-0.03 10 3/uL Performing Lab: see note ML - [facility] LB XR hip RT min 2V Reviewed date:11/08/2024 03:15:21 PM Interpretation: Performing Lab: Notes/Report: Source Facility: [facility]-[address] [place] [address] XRay Report Signed Patient: MARGARET JAIN MR#: [id number] : 1940 Acct:[id number] Age/Sex: 84 / F ADM Date: 11/08/24 Loc: RAD Attending Dr: FATMATA BELLAMY Ordering Physician: FATMATA BELLAMY Date of Service: 11/08/24 Procedure(s): XR hip RT min 2V Accession Number(s): [id number] cc: FATMATA BELLAMY [place] [address] Patient Name: MARGARET JAIN MRN: [id number] date: 1940 Sex: F Assigned Patient Location: [facility] Current Patient Location: [facility] Accession/Order Number: [id number] Exam Date: 11/08/2024 13:19 Report Date: 11/08/2024 13:21 At the request of: FATMATA BELLAMY Procedure: XR hip RT min 2V 3 views right hip plain film COMPARISON: 09/26/2020 HISTORY: Acute right hip pain for 2 weeks. ACUTE FINDINGS: Healed/healing fracture of the proximal shaft of right femur DEGENERATIVE CHANGE: Similar mild right hip degeneration SOFT TISSUE FINDINGS: Unremarkable JOINT EFFUSION: None POSTOP CHANGES: No hardware complication. BONY MINERALIZATION: Adequate XR/XR hip RT min 2V IMPRESSION: Adequate visualized fixation hardware of the right hip. No acute bony findings. Leena/healing fracture of the proximal shaft of the right femur. Similar degenerative change Impression dictated by: Garfield Mathew M.D.11/08/2024 1:21 PM Dictation Location: [facility] Electronically authenticated by: [id number] Y Date: 11/08/2024 13:21 Dictated By: Garfield Mathew D.O. Signed By: 11/08/24 1323 DD/ 1321 TD/TT: Hide Puller: [place] [address] XRay Report Signed Patient: MARGARET JAIN MR#: [id number] : 1940 Acct:[id number] Age/Sex: 84 / F ADM Date: 11/08/24 Loc: ONOFRE Attending Dr: FATMATA BELLAMY Ordering Physician: FATMATA BELLAMY Date of Service: 11/08/24 Procedure(s): XR hip RT min 2V Accession Number(s): [id number] cc: FATMATA BELLAMY [place] [address] Patient Name: MARGARET JAIN MRN: [id number] date: 1940 Sex: F Assigned Patient Location: [facility] Current Patient Location: [facility] Accession/Order Numb er: [id number] Exam Date: 11/08/2024 13:19 Report Date: 11/08/2024 13:21 At the request of: FATMATA BELLAMY Procedure: XR hip RT min 2V [address] ain film COMPARISON: 09/26/2020 HISTORY: Acute right hip pain for 2 weeks. ACUTE FINDINGS: Healed/healing fracture of the proximal shaft of right femur DEGENERATIVE CHANGE: Similar mild right hip degeneration SOFT TISSUE FINDINGS : Unremarkable JOINT EFFUSION: None POSTOP CHANGES: No hardware complication. BONY MINERALIZATION: Adequate X R/XR hip RT min 2V IMPRESSION: Adequate visualized fixation hardware of the right hip. No acute bony findings. Leena/healing fracture of the proximal shaft of the right femur. Similar degenerative change Impression dictated by: Garfield Mathew M.D.11/08/2024 1:21 PM Dictation Location: [facility] Electronically authenticated by: [id number] Y Date: 11/08/2024 13:21 Dictated By: Garfield Mathew D.O. Signed By: 11/08/24 1323 DD/ 132 TD/TT: Hide Puller: [facility] Reviewed date:04/09/2024 04:00:26 PM Interpretation: Performing Lab: Notes/Report: [facility] , Thyroid Stimulating Hormone 3.942 0.358-3.740 uIU/mL Performing Lab: see note ML - [facility] LB PROF 14(COMP METB) Reviewed date:04/09/2024 04:00:26 PM Interpretation: Performing Lab: Notes/Report: [facility] , Sodium 139 136-145 mmol/L Potassium 3.7 3.5-5.1 mmol/L Chloride 102 98-107 mmol/L Carbon Dioxide 29.6 21.0-32.0 mmol/L Anion Gap 11.1 Glucose 145 74-106 mg/dL Blood Urea Nitrogen 15.0 7.0-18.0 mg/dL Creatinine 0.94 0.55-1.02 mg/dL Estimated GFR ( Penny >60 >=60 Estimated GFR (Non- Anita 57 >=60 BUN Creatinine Ratio 16.0 Calcium 8.9 8.5-10.1 mg/dL Bilirubin Total 0.5 0.2-1.0 mg/dL Aspartate Amino Transferase 12 15-37 U/L Alanine Aminotransferase 13 14-59 U/L Alkaline Phosphatase 122 46-116 U/L Total Protein 6.7 6.4-8.2 g/dL Albumin Level 2.9 3.4-5.0 g/dL Globulin 3.8 Albumin Globulin Ratio 0.8 Performing Lab: see note ML - [facility] LB LIPID PROFILE Reviewed date:04/09/2024 04:00:26 PM Interpretation: Performing Lab: Notes/Report: [facility] , Triglycerides 100 <=150 mg/dL Cholesterol 139 <=200 mg/dL HDL Cholesterol 55 40-60 mg/dL > or =60 mg/dl - LOW CARDIOVASCULAR RISK <40 mg/dl - HIGH CARDIOVASCULAR RISK LDL Cholesterol Calculated 64.0 <100 mg/dl OPTIMAL 100-129 mg/dl NEAR OR ABOVE OPTIMAL 130-159 mg/dl BORDERLINE HIGH 160-189 mg/dl HIGH >190 mg/dl VERY HIGH VLDL CHOLESTEROL 20.0 Chol HDL Ratio 2.5 3.3 - 4.4 LOW RISK 4.4 - 7.1 AVERAGE RISK 7.1 - 11.0 MODERATE RISK >11.0 HIGH RISK Performing Lab: see note - [facility] Prothrombin Time INR Reviewed date:04/12/2024 03:43:25 PM Interpretation: Performing Lab: Notes/Report: [facility] DROP OFF [facility] , Prothrombin Time 17.2 9.0-11.6 sec INR 1.71 DESIRED INR: 2.0-3.0 CONDITIONS NOT LISTED BELOW 2.5-3.5 FOR PROSTHETIC HEART VALVE REPLACEMENT 2.5-3.5 RECURRENT THROMBOSIS Performing Lab: see note - [facility] Prothrombin Time INR Reviewed date:04/08/2024 04:31:29 PM Interpretation: Performing Lab: Notes/Report: [facility] , Prothrombin Time 12.9 9.0-11.6 sec INR 1.24 DESIRED INR: 2.0-3.0 CONDITIONS NOT LISTED BELOW 2.5-3.5 FOR PROSTHETIC HEART VALVE REPLACEMENT 2.5-3.5 RECURRENT THROMBOSIS Performing Lab: see note - [facility] Prothrombin Time INR Reviewed date:01/03/2025 11:45:46 AM Interpretation: Performing Lab: Notes/Report: [facility] , Prothrombin Time 17.6 9.0-11.6 sec INR 1.76 DESIRED INR: 2.0-3.0 CONDITIONS NOT LISTED BELOW 2.5-3.5 FOR PROSTHETIC HEART VALVE REPLACEMENT 2.5-3.5 RECURRENT THROMBOSIS Performing Lab: see note [facility] PROF CHEM 8 (BAS METB) Reviewed date:01/03/2025 11:45:46 AM Interpretation: Performing Lab: Notes/Report: [facility] , Sodium 144 136-145 mmol/L Potassium 3.7 3.5-5.1 mmol/L Chloride 105 98-107 mmol/L Carbon Dioxide 33.0 21.0-32.0 mmol/L Anion Gap 9.7 Glucose 129 74-106 mg/dL Blood Urea Nitrogen 37.0 7.0-18.0 mg/dL Creatinine 1.19 0.55-1.02 mg/dL Estimated GFR ( Penny 52 >=60 mL/min/1.73m 2 Estimated GFR (Non- Anita 43 >=60 mL/min/1.73m 2 BUN Creatinine Ratio 31.1 Calcium 9.9 8.5-10.1 mg/dL Performing Lab: see note ML - [facility] LB CRP Reviewed date:01/03/2025 11:45:45 AM Interpretation: Performing Lab: Notes/Report: [facility] , C Reactive Protein 4.07 <=0.50 mg/dL Performing Lab: see note ML - [facility] LB CBC AUTO DIFF Reviewed date:01/03/2025 11:45:45 AM Interpretation: Performing Lab: Notes/Report: [facility] , White Blood Count 9.6 4.0-11.0 10 3/uL Red Blood Count 4.07 4.20-5.40 10 6/uL Hemoglobin 12.4 12.0-16.0 g/dL Hematocrit 37.8 36.0-48.0 % Mean Corpuscular Volume 92.9 81.0-99.0 fL Mean Corpuscular Hemoglobin 30.5 26.7-34.0 pg Mean Corpuscular HGB Conc 32.8 29.9-35.2 g/dL Red Cell Distribution Width 16.6 11.0-15.0 % Platelet Count 257 150-450 10 3/uL Mean Platelet Volume 11.9 9.5-13.5 fL Neutrophils Percent Auto 74.0 43.0-75.0 % Lymphocytes Percent Auto 13.8 20.5-60.0 % Monocytes Percent Auto 11.1 1.7-12.0 % Eosinophils Percent Auto 0.3 0.9-7.0 % Basophils Percent Auto 0.1 0.2-2.0 % Immature Granulocytes Pct Auto 0.7 0.0-0.5 % Neutrophils Absolute Auto 7.1 1.4-6.5 10 3/uL Lymphocytes Absolute Auto 1.3 1.2-3.8 10 3/uL Monocytes Absolute Auto 1.1 0.3-0.8 10 3/uL Eosinophils Absolute Auto 0.0 0.0-0.7 10 3/uL Basophils Absolute Auto 0.0 0.0-0.1 10 3/uL Immature Granulocytes Abs Auto 0.07 0.00-0.03 10 3/uL Performing Lab: see note ML - [facility] LB US aorta Reviewed date:12/29/2024 07:40:54 PM Interpretation: Performing Lab: Notes/Report: Source Facility: [facility]-[address] [place] [address] Ultrasound Report Signed Patient: MARGARET JAIN MR#: [id number] : 1940 Acct:[id number] Age/Sex: 84 / F ADM Date: 12/26/24 Loc: MS 230-[address]: Moises Rayo M.D. Ordering Physician: Moises Rayo M.D. Date of Service: 12/29/24 Procedure(s): US aorta Accession Number(s): [id number] cc: FATMATA BELLAMY ; Moises Rayo M.D. The [place] [address] Patient Name: MARGARET JAIN MRN: [id number] date: 1940 Sex: F Assigned Patient Location: [place] Current Patient Location: [place] Accession/Order Number: [id number] Exam Date: 12/29/2024 08:35 Report Date: 12/29/2024 08:38 At the request of: MOISES RAYO MD Procedure: US aorta ULTRASOUND OF THE ABDOMINAL AORTA COMPARISON: 12/15/2024 Real-time ultrasound evaluation of the abdominal aorta was performed. The proximal AP diameter is 2.2 and the width is 1.8. Through the midsegment, the aorta measure 1.6 and the width is 1.6. Distally, the diameter measures 1.7 and the width measures 1.5. No aneurysm is seen. The bifurcation is visualized and the iliac arteries are normal caliber. There is no periaortic fluid. 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 There is internal blood flow on color Doppler imaging. US/US aorta IMPRESSION: NO AORTIC ANEURYSM. 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 There is internal blood flow on color Doppler imaging. Impression dictated by: Rohith Harris M.D. 12/29/2024 8:38 AM Dictation Location: [place] [address] Electronically authenticated by: [id number] Y Date: 12/29/2024 08:38 Dictated By: Rohith Harris M.D. Signed By: 12/29/2441 DD/ 7 TD/TT: Hide Puller: [place] [address] Ultrasound Report Signed Patient: MARGARET JAIN MR#: [id number] : 1940 Acct:[id number] Age/Sex: 84 / F ADM Date: 12/26/24 Loc: MS 230-[address]: Ilda Rayo M.D. Ordering Physician: Moises Rayo M.D. Date of Service: 12/29/24 Procedure(s): US aorta Accession Number(s): [id number] cc: FATMATA BELLAMY ; Moises Rayo M.D. [address] [address] Patient Name: MARGARET JAIN MRN: [id number] date: 1940 Sex: F Assigned Patient Location: [place] Current Patient Location: [place] Accession/Order Numb er: [id number] Exam Date: 12/29/2024 08:35 Report Date: 12/29/2024 08:38 At the request of: MOISES RAYO MD Procedure: US aorta ULTRASOUND OF THE ABDOMINAL AORTA COMPARISON: 12/15/2024 Real-time ultrasound evaluation of the abdominal aorta was performed. The proximal AP diameter is 2.2 and the width is 1.8. Through the midsegment, the aorta measure 1.6 an d the width is 1.6. Distally, the diameter measures 1.7 and the width measur es 1.5. No aneurysm is seen. The bifurcation is visualized and the i liac arteries are normal caliber. There is no periaortic fluid. There is redemonstration of a heterogeneous mass in the retroperitoneum on t he right similar to that seen on the previous MRI measuring at least 1 2.7 x 8.2 x 5.9 cm in greatest dimension. There is internal blood flow on color Doppler imaging. U S/US aorta IMPRESSION: NO AORTIC ANEURYSM. There is redemonstra tion of a heterogeneous mass in the retroperitoneum on the right similar to karson t seen on the previous MRI measuring at least 12.7 x 8.2 x 5.9 cm in greatest dimension. There is internal blood flow on color Doppler imaging. Impression dictated by: Rohith Harris M.D. 12/29/2024 8:38 AM Dictation Location: [place] [address] Electronically authenticated by: [id number] Y Date: 12/29/2024 08:38 Dictated By: Rohith Harris M.D. Signed By: 12/29/24 0841 DD/ 0838 TD/TT: Hide Puller: CBC AUTO DIFF Reviewed date:12/29/2024 07:40:54 PM Interpretation: Performing Lab: Notes/Report: [facility] , White Blood Count 12.4 4.0-11.0 10 3/uL Red Blood Count 4.27 4.20-5.40 10 6/uL Hemoglobin 13.0 12.0-16.0 g/dL Hematocrit 39.2 36.0-48.0 % Mean Corpuscular Volume 91.8 81.0-99.0 fL Mean Corpuscular Hemoglobin 30.4 26.7-34.0 pg Mean Corpuscular HGB Conc 33.2 29.9-35.2 g/dL Red Cell Distribution Width 16.8 11.0-15.0 % Platelet Count 263 150-450 10 3/uL Mean Platelet Volume 11.8 9.5-13.5 fL Neutrophils Percent Auto 90.2 43.0-75.0 % Lymphocytes Percent Auto 3.1 20.5-60.0 % Monocytes Percent Auto 6.2 1.7-12.0 % Eosinophils Percent Auto 0.0 0.9-7.0 % Basophils Percent Auto 0.1 0.2-2.0 % Immature Granulocytes Pct Auto 0.4 0.0-0.5 % Neutrophils Absolute Auto 11.2 1.4-6.5 10 3/uL Lymphocytes Absolute Auto 0.4 1.2-3.8 10 3/uL Monocytes Absolute Auto 0.8 0.3-0.8 10 3/uL Eosinophils Absolute Auto 0.0 0.0-0.7 10 3/uL Basophils Absolute Auto 0.0 0.0-0.1 10 3/uL Immature Granulocytes Abs Auto 0.05 0.00-0.03 10 3/uL Performing Lab: see note ML - [facility] LB Reason For Referral Diagnosis 1 Pain in right hip (M 25.551) Referral Organization [facility] Referring Provider First Name Fatmata Referring Provider Last Name Angie Referring Provider [facility] marvin Referred Provider [facility], Physical Therap y Referred Provider Specialty Physical The rapist Referral Priority Routine Diagnosis 1 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) Referral Organization [facility] Referring Provider First Name Fatmata Referring Provider Last Name Angie Referring Provider [facility] marvin Referred Provider Specialty Neurological Surgery Referral Priority Routine Reason right sciatica Diagnosis 1 Sciatica (M54.30) Referral Organization [facility] Referring Provider First Name Fatmata Referring Provider Last Name Angie Referring Provider [facility] marvin Referred Provider Pain Management, [facility] Referred Provider Specialty Pain Medicin e Referral Priority Routine Medications Medication SIG (Take, Route, Frequency, Duration) Notes Start Date End Date Status Levothyroxine Sodium 25 MCG 1 tablet in the morning on an empty stomach Orally Once a day 01/04/2025 Active Wheelchair ht 5'8 wt 180 18x16 seat size 04/02/2024 Active Gabapentin 300 MG 1 capsue Orally bid for 30 days 12/14/2024 Active Isosorbide Mononitrate ER 30 MG 1 tablet in the morning Orally Once a day 01/04/2025 Active Warfarin Sodium 1 MG 2 tablet Orally Sat and 1mg Friday for 90 days Active Aspirin 81 81 MG 1 tablet Orally Once a day Active Metoprolol Tartrate 25 MG 1/2 tablet with food Orally Twice a day for 90 days 1/2 tab Active Alendronate Sodium 70 MG Take 1 tablet b y mouth once a week for 28 Active Magnesium Oxide 400 MG 1 tablet with leida d Orally twice daily 01/04/2025 Active Wheelchair Cushion - as directed 04/02/2024 Active dilTIAZem HCl 60 MG Take 1 tablet by clare th once daily for 30 days for 30 Active Pantoprazole Sodium 40 MG 1 tablet 1/2 t o 1 hour before morning meal Orally Once a day 01/04/2025 Active Ondansetron 4 MG 1 tablet on the tong ue and allow to dissolve Orally Once a day 01/04/2025 Active Furosemide 40 MG 1 tablet Orally Once a day 01/04/2025 Active Simvastatin 10 MG Take 1 tablet by clare th once daily for 90 Active Entresto 24-26 MG 1 tablet Orally Twic e a day 01/04/2025 Active predniSONE 10 MG as directed Orally 5tab/3days; 4tab/3days: 3tab/3days:2tab/3days; 1tab/3days: 1/2tab/3 days 01/04/2025 Active Vitamin D (Cholecalciferol) 50 MCG (1999 UT) Take 1 capsule by mouth once daily for 30 Active HYDROcodone-Acetaminophen 5-325 MG 1/2 tablet as needed Orally every 4-6 hrs 01/04/2025 Active Social History Tobacco Use: Social History Observation Description Date Details (start date - stop date) Never Smoker NA - NA Tobacco Use/Smoking Question Answer Notes Patient is a nonsmoker Problems Problem Type SNOMED Code ICD Code Onset Dates Problem Status W/U Status Risk Notes Problem 62308900 Essential (prima ry) hypertension (I10) Active confirmed Problem 70365727 Vitamin D deficiency, unspecified (E55.9) Active confirmed Problem 467315960 Insomnia, unspecified (G47.00) Active confirmed Problem 80714988 Unspecified atri al fibrillation (I48.91) Active confirmed Problem 81341197 Venous insufficiency (chronic) (peripheral) (I87.2) Active confirmed Problem Influenza (1708279) Influenza du e to unidentified influenza virus with other manifestations (J11.89) Active confirmed Problem 615434891 Other seasonal allergic rhinitis (J30.2) Active confirmed Problem 752983134 Diverticulosis o f large intestine without perforation or abscess without bleeding (K57.30) Active confirmed Problem 576783175 Constipation, unspecified (K59.00) Active confirmed Problem 161040142163005 Primary osteoarthritis, 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 confirmed Problem 574450993238190 Pain in right hi p (M25.551) Active confirmed Problem 52610168 Other intervertebral disc degeneration, lumbar region (M51.36) Active confirmed Problem 01040538 Chronic fatigue, unspecified (R53.82) Active confirmed Problem 524974709 Localized edema (R60.0) Active confirmed Problem 28222992 Other fracture o f shaft of left humerus, subsequent encounter for fracture with nonunion (S42.392K) Active confirmed 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) Active confirmed Problem 115315348 Other shelter (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 therapy (Z79.899) Active confirmed Problem Senile osteoporosis (99678147) 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) Active confirmed Problem Hyperlipidemia (47897668) Hyperlipidemia (E78.5) Active confirmed Problem Stroke (308260488) Stroke (I63.9) Active confir med Problem Lumbar radiculopathy (733805045) Lumbar radiculopathy (M54.16) Active confirmed Problem Bronchitis (51427958) Bronchitis (J40) Active confirmed Problem Acute sinusitis (73089581) Acute sinusitis (J01.90) Active confirmed Problem Allergic rhinitis (82974150) Allergic rhinitis (J30.9) Active confirmed Problem Non-allergic rhinitis (520094165000) 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) Active confirmed Problem Skin lesion (14639189) Skin lesion (L98.9) Active confirmed Problem Medication monitoring (093510097) Medication monitoring encounter (Z51.81) Active confirmed Problem Leg pain (36414139) Leg pain (M79.606) Active c onfirmed Problem Pain of left knee region (finding) (755312518408443) Knee pain, left (M25.562) Active confirmed Problem Sciatica (11041110) Sciatica (M54.30) Active co nfirmed Problem Sore throat (962361136) Sore throat (J02.9) Active confirmed Problem Overweight (805350356) Overweight (BMI 25.0-29.9) (E66.3) Active confirmed Problem Subdural hemorrhage (07254479) Subdural hemorrhage (I62.00) Active confirmed Problem Acquired spondylolisthesis (234300255) Spondylolisthesis at L4-L5 level (M43.16) Active confirmed Problem Pain in left foot (577627826236124) Left foot pain (M79.672) Active confirmed Problem Annual wellness visit (752680683705822) Wellness examination (Z00.00) Active confirmed Problem At risk for falls (140666370) At risk for falls (Z91.81) Active confirmed Problem Lumbago with sciatica (916520278) 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) Active confirmed Problem Arthritis of sacroiliac joint (disorder) (5398379013) 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33 kg/m2 01/04/2025 Encounters Encounter Location Date Provider Diagnosis [address] [address] 12/14/2024 Fatmata Bellamy Sciatica M54.30 ; Subdural hemorrhage I62.00 and Unspecified atrial fibrillation I48.[address] [address] 04/01/2024 Fatmata Bellamy Other fracture of sh aft of left humerus, subsequent encounter for fracture with nonunion S42.392K ; Medication monitoring encounter Z51.81 and Hyperlipidemia, unspecified E78.[address] [address] 08/06/2024 Fatmata Bellamy Non-allergic rhiniti s J31.0 and Weight loss R63.[address] [address] 10/04/2024 Fatmata Bellamy Allergic rhinitis J3 0.9 [facility] [address] [facility] [place] [address] 10/25/2024 Fatmatashamir Bellamy Back pain M54.9 [facility] [address] [facility] [place] [address] 12/07/2024 Fatmatashamir Bellamy Sciatica associated with disorder of lumbar spine M53.9 and SI joint arthritis M47.818 [facility] [address] [facility] [place] [address] 01/04/2025 Denilson Hoy Subdural hemorrhage I62.00 ; Chronic kidney disease, stage 3b N18.32 and Lumbar radiculopathy M54.16 [facility] [address] [facility] [place] [address] 12/21/2024 Fatmata Bellamy Sciatica M54.30 [facility] [address] [facility] [place] [address] 12/23/2024 Fatmata Bellamy [facility] [address] [facility] [place] [address] 12/29/2024 Fatmata Bellamy [facility] [address] [facility] [place] [address] 12/29/2024 Denilson Washingtony [facility] [address] [facility] [place] [address] 12/13/2024 Fatmata Bellamy [facility] [address] [facility] [place] [address] 12/14/2024 Fatmata Bellamy Sciatica associated with disorder of lumbar spine M53.9 [facility] [address] [facility] [place] [address] 12/14/2024 Fatmata Angie Sciatica associated with disorder of lumbar spine M53.9 [facility] [address] [facility] [place] [address] 12/14/2024 Fatmata Bellamy [facility] [address] [facility] [place] [address] 12/14/2024 Fatmata Angie [facility] [address] [place] [address] 12/16/2024 Fatmata Bellamy Sciatica associated with disorder of lumbar spine M53.9 ; Pain in right hip M25.551 and Back pain M54.9 [facility] [address] [place] [address] 11/22/2024 Fatmata Bellamy [facility] [address] [place] [address] 11/22/2024 Fatmata Bellamy [facility] [address] [place] [address] 12/01/2024 Fatmata Bellamy [facility] [address] [place] [address] 12/01/2024 Fatmata Bellamy Senile osteoporosis M81.0 [facility] [address] [facility] [place] [address] 12/03/2024 Fatmata Bellamy [facility] [address] [facility] [place] [address] 12/07/2024 Fatmata Bellamy [facility] [address] [facility] [place] [address] 09/27/2024 Fatmata Bellamy [facility] [address] [place] [address] 10/05/2024 Fatmata Bellamy [facility] [address] [place] [address] 10/28/2024 Fatamta Bellamy Hip pain, acute, rig ht M25.551 [facility] [address] [place] [address] 11/08/2024 Fatmata Bellamy Pain in right hip M25.551 [facility] [address] [place] [address] 11/08/2024 Fatmata Bellamy Pain in right hip M25.551 [facility] [address] [place] [address] 11/16/2024 Fatmata Bellamy [facility] [address] [place] [address] 06/16/2024 Fatmata Bellamy [facility] [address] [place] [address] 07/13/2024 Fatmata Bellamy [facility] [address] [place] [address] 08/16/2024 Fatmata Bellamy [facility] [address] [place] [address] 08/23/2024 Fatmata Bellamy [facility] [address] [place] [address] 08/25/2024 Fatmata Bellamy [facility] [address] [place] [address] 08/25/2024 Fatmata Bellamy [facility] [address] [place] [address] 05/07/2024 Fatmata Bellamy [facility] [address] [place] [address] 05/10/2024 Fatmata Bellamy [facility] [address] [place] [address] 05/18/2024 Fatmata Bellamy [facility] [address] [place] [address] 05/31/2024 Fatmata Bellamy [facility] [address] [place] [address] 06/02/2024 Fatmata Bellamy [facility] [address] [place] [address] 06/14/2024 Fatmata Bellamy 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 [address] [place] [address] 04/09/2024 Fatmata Bellamy [facility] [address] [place] [address] 04/12/2024 Fatmata Bellamy [facility] [address] [facility] [place] [address] 04/20/2024 Fatmata Bellamy [facility] [address] [facility] [place] [address] 04/27/2024 Fatmata Bellamy [facility] [address] [facility] [place] [address] 04/28/2024 Fatmata Bellamy [facility] [address] [facility] [place] [address] 03/24/2024 Fatmata Bellamy [facility] [address] [facility] [place] [address] 03/31/2024 Fatmata Bellamy [facility] [address] [facility] [place] [address] 04/02/2024 Fatmata Bellamy [facility] [address] [facility] [place] [address] 04/02/2024 Fatmata Bellamy [facility] [address] [facility] [place] [address] 04/02/2024 Fatmata Bellamy 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 [address] [facility] [place] [address] 02/19/2024 Fatmata Bellamy [facility] [address] [facility] [place] [address] 03/19/2024 Fatmata Bellamy [facility] [address] [facility] [place] [address] 03/22/2024 Fatmata Bellamy Assessments Encounter Date Diagnosis (ICD Code) Assessment Notes Treatment Notes Treatment Clinical Notes Section Notes 08/06/2024 Weight loss (ICD-10 - R63.4) admits to decreased appetite, eating less increase protein continue monitor, fu if continues lose 08/06/2024 Non-allergic rhinitis (ICD-10 - J31.0) 10/04/2024 Allergic rhinitis (ICD-10 - J30.9) Discussed referral to ENT as well as a new oral allergy medication and new nasal spray. Patient states she wished to try the new meds first and agrees to F/U with ENT if unsuccessful. 10/25/2024 Back pain (ICD-10 - M54.9) ibuprofen, heating pad discussed PT if urine negative 12/07/2024 Sciatica associated with disorder of lumbar spine (ICD-10 - M53.9) toradol 60 fu ortho specialist was referred to order MRI pain man referral? 12/07/2024 SI joint arthritis (ICD-10 - M47.818) PT dx this fu them, pain man? 04/01/2024 Other fracture of shaft of left humerus, subsequent encounter for fracture with nonunion (ICD-10 - S42.392K) needs manual WC with cushion A. Patient is unable to perform MRDALS d/t limitations with mobility. B. Patient is unable to use a cane or walker very far C. Patient's home provides adequate access between rooms and maneuvering space and surface for wheelchair. D. Wheelchair use will improve the ability to participate in MRDALs and patient will use it on a regular basis. 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) 10/28/2024 Hip pain, acute, right (ICD-10 - M25.551) 11/08/2024 Pain in right hip (ICD-10 - M25.551) 11/08/2024 Pain in right hip (ICD-10 - M25.551) 12/01/2024 Senile osteoporosis (ICD-10 - M81.0) 12/14/2024 Sciatica associated with disorder of lumbar spine (ICD-10 - M53.9) 12/14/2024 Sciatica associated with disorder of lumbar spine (ICD-10 - M53.9) 12/16/2024 Pain in right hip (ICD-10 - M25.551) 12/16/2024 Sciatica associated with disorder of lumbar spine (ICD-10 - M53.9) 12/21/2024 Sciatica (ICD-10 - M54.30) 12/16/2024 Back pain (ICD-10 - M54.9) 12/14/2024 Subdural hemorrhage (ICD-10 - I62.00) resolved 01/04/2025 Lumbar radiculopathy (ICD-10 - M54.16) 04/01/2024 Medication monitoring encounter (ICD-10 - Z51.81) PT INR on Fri, nurse to draw sounds like pt had not been taking coumadin recently has 2.5 mg at home, will start on that dose 12/14/2024 Unspecified atrial fibrillation (ICD-10 - I48.91) hx of on Cardizem, metoprolol, warfarin HR regular at this time 04/01/2024 Hyperlipidemia, unspecified (ICD-10 - E78.5) 08/06/2024 Other increase protein, continue monitor wt try nail and hair supplement Plan Of Treatment Pending Test Test Name Order Date CMP (COMPLETE METABOLIC PANEL) CMP (COMPLETE METABOLIC PANEL) UA (URINALYSIS, COMPLETE) 10/25/2024 HEMOGLOBIN A1C (GLYCO) 04/02/2024 HEMOGLOBIN A1C (GLYCO) 04/01/2024 INSULIN, TOTAL 04/01/2024 INSULIN, TOTAL 04/02/2024 LIPID PANEL (CHOL/TRIG/HDL/LDL) 04/02/20 LIPID PANEL (CHOL/TRIG/HDL/LDL) 04/01/20 CBC WITH DIFF 04/01/2024 CBC WITH DIFF 04/02/2024 PT (PROTIME), INR AND PTT (PT/INR AND PT T) 10/17/2023 MRI Lumbar Spine w/o contrast 12/14/2024 Urine Culture 10/25/2024 XR Hip 2-3 Views Right 11/08/2024 XR Hip 1 View Right 10/28/2024 THYROID PROFILE WITH TSH 12/06/2022 CT ABD and PELV W CON 12/16/2024 XR DEXA BONE DENSITY 12/01/2024 THYROID PANEL (T4/TSH/FREE T3) THYROID PANEL (T4/TSH/FREE T3) Prothrombin Time INR 04/01/2024 PROTIME-INR 08/12/2023 MRI LUMBAR SPINE W CONTRAST 12/16/2024 Insurance Providers Payer Name Payer Address Payer Phone Subscriber Number Group Number Insured Name Patient Relationship to Insured Coverage Start Date Coverage End Date [employer]AN [address] [place] [address] [id number] [id number] Self - patient is the insured Medications Administered Medication Instructions Date of Administration Dosage Notes Ketorolac Tromethamine 12/07/2024 60 mg Medical (General) History Medical History History ICD Code Overweight (BMI 25.0-29.9) E66.3 Headache, unspecified R51.9 Acute sinusitis J01.90 Skin lesion L98.9 Left foot pain M79.672 Leg pain M79.606 Knee pain, left M25.562 At risk for falls Z91.81 Influenza due to unidentified influenza virus with other manifestations J11.89 Medication monitoring encounter Z51.81 Bronchitis J40 Wellness examination Z00.00 Sore throat J02.9 Stroke I63.9 Surgical History Surgery Date(Month/Year) Left Shoulder- repair Right leg with pin- post fall Hospitalization History Reason Date(Month/Year) Back pain- uncontrolled pain 12/2024 Fall 01/2024
--- NOTE | 2025-01-11 02:46 | PC.NURSE ---
Pt presents to ER for a flare up of chronic back pain / sciatica Pt presents in wheelchair, left in wheelchair at bedside per pt's preference at bedside Pt states she just cannot tolerate the pain Pt states she had a procedure done to her back approximately 1 week ago, referred to this as an epidural Pts last pain medication at home was 1/2 of a [place] at 0130 this morning Pt taking Gabapentin, [place], and prednisone around the clock - presents with a sheet hand written in since January 08
--- NOTE | 2025-01-11 02:55 | ED.BACK1 ---
HPI HPI - Back Pain/Injury General Chief Complaint: Back Pain/Injury Stated Complaint: SCIATICA Time Seen by Provider: 01/11/25 02:33 Source: patient Mode of arrival: Wheelchair Limitations: no limitations History of Present Illness HPI Narrative: patient returns complaining of back pain. More pain of her right leg this visit. Was seen by pain specialist last week and had an injection right buttocks region. States pain improved for a day or so but did not last. No weakness of her legs or loss of control of bowel or bladder. Did have recent MRI L-spine that demonstrated spinal stenosis and disc bulge. Also demonstrated large right iliopsoas and posterior oparaspinous musculature mass that patient is aware of. No fever. She is here for relief of her pain. States morphine helps Related Data Home Medications ?Medication ?Instructions ?Recorded ?Confirmed simvastatin 10 mg tablet 10 mg PO QPM 01/05/24 01/03/25 warfarin 2.5 mg tablet 2.5 mg PO DAILY 01/05/24 01/03/25 alendronate 70 mg tablet 70 mg PO .weekly 12/13/24 01/03/25 diclofenac sodium 75 mg 75 mg PO BID PRN pain 12/13/24 01/03/25 tablet,delayed release diltiazem HCl 60 mg tablet 60 mg PO DAILY 12/13/24 01/03/25 metoprolol tartrate 25 mg tablet 12.5 mg PO BID 12/13/24 01/03/25 gabapentin 100 mg capsule 100 mg PO .QHS 12/22/24 01/03/25 cholecalciferol (vitamin D3) 50 50 mcg PO DAILY 12/26/24 01/03/25 mcg (2,000 unit) tablet hydrocodone 5 mg-acetaminophen 325 1 tab PO Q8H PRN pain 12/26/24 01/03/25 mg tablet ondansetron HCl 4 mg tablet 4 mg PO Q6H PRN nausea and vomiting 12/26/24 01/03/25 Previous Rx's ?Medication ?Instructions ?Recorded cefdinir 300 mg capsule 600 mg (2 x 300 mg) PO DAILY #14 12/29/24 caps furosemide 40 mg tablet 40 mg PO QD #30 tabs 12/29/24 gabapentin 300 mg capsule 300 mg PO QHS #30 caps 12/29/24 isosorbide mononitrate 30 mg 30 mg PO QD #30 tabs 12/29/24 tablet,extended release 24 hr levothyroxine 25 mcg tablet 25 mcg PO ACB #30 tabs 12/29/24 magnesium oxide 400 mg (241.3 mg 400 mg PO BID #60 tabs 12/29/24 magnesium) tablet pantoprazole 40 mg tablet,delayed 40 mg PO DAILY #30 tabs 12/29/24 release prednisone 10 mg tablet 30 mg (3 x 10 mg) PO DAILY #20 tabs 12/29/24 sacubitril 24 mg-valsartan 26 mg 1 tab PO BID #60 tabs 12/29/24 tablet (Entresto) tramadol 50 mg tablet 50 mg PO Q8H PRN Pain Scale 7-10 7 12/29/24 days #21 tabs Allergies Allergy/AdvReac Type Severity Reaction Status Date / Time Sulfa (Sulfonamide Allergy Unknown Verified 01/11/25 02:39 Antibiotics) Opioid HPI Opioid Management Most Recent Opioid Data: Last Pain Scale 10 Today, 03:20 Last ED Pain Assessment Today, 02:49 Last MAR Pain Assessment Today, 03:20 Last ORT Total Score 0 12/26/24, 09:25 Last ORT Risk Category Low Risk 12/26/24, 09:25 Review of Systems ROS Status of ROS 10 or more systems reviewed and unremarkable except as noted in history and below [facility] Medical History (Updated 01/11/25 @ 03:21 by Leonardo Holden MD) Acute diastolic heart failure ?I50.31 - Acute diastolic (congestive) heart failure (ICD-10) Hypomagnesemia ?E83.42 - Hypomagnesemia (ICD-10) Lactic acidosis ?E87.20 - Acidosis, unspecified (ICD-10) Sepsis ?A41.9 - Sepsis, unspecified organism (ICD-10) Acute right-sided back pain with sciatica ?M54.41 - Lumbago with sciatica, right side (ICD-10) Intractable low back pain ?M54.59 - Other low back pain (ICD-10) Right lumbar radiculopathy ?M54.16 - Radiculopathy, lumbar region (ICD-10) History of CVA (cerebrovascular accident) ?Z86.73 - Personal history of transient ischemic attack (TIA), and cerebral infarction without residual deficits (ICD-10) High cholesterol ?E78.00 - Pure hypercholesterolemia, unspecified (ICD-10) Atrial fibrillation ?I48.91 - Unspecified atrial fibrillation (ICD-10) Hypertension ?I10 - Essential (primary) hypertension (ICD-10) Surgical History (Updated 12/26/24 @ 09:21 by Alta Culp RN) 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.612 - Presence of left artificial shoulder joint (ICD-10) History of hysterectomy ?Z90.710 - Acquired absence of both cervix and uterus (ICD-10) Family History (Updated 12/26/24 @ 09:22 by Alta Culp RN) Father Family history of myocardial infarction Social History (Updated 12/26/24 @ 09:23 by Alta Culp RN) Within the past year, how often did you have a drink containing alcohol: 2-4 times a month Smoking status: Former smoker Non-prescribed substance use: denies use Highest level of school completed/degree received: GED or equivalent Little interest or pleasure in doing things: not at all Feeling down, depressed, or hopeless: not at all Exam Constitutional Vital Signs, click to edit/add: Last Vital Signs Temp 98.0 F 01/11/25 02:34 Pulse 82 01/11/25 02:34 Resp 14 01/11/25 02:34 BP 134/80 01/11/25 02:34 Pulse Ox 96 01/11/25 02:34 O2 Del Method Room Air 01/11/25 02:34 Common normals: no apparent distress, average body habitus, oriented x3, no limitations, healthy appearing, alert and well nourished [facility] Common normals: normocephalic and head/scalp atraumatic Eye Common normals: PERRL and EOMs intact bilaterally Respiratory Common normals: normal respiratory effort, no retractions, no use of accessory muscles and clear to auscultation bilaterally Cardio Common normals: regular rate, regular rhythm, S1 normal heart sound and S2 normal heart sound GI Common normals: Normal to inspection, nondistended, normoactive bowel sounds present, soft to palpation and non-tender Back & Pelvis Common normals: no CVA tenderness and thoracic and lumbar spine normal to inspection Extremity Common normals: normal to inspection and full ROM Neuro Common normals: oriented x3, CN's II-XII intact bilaterally, moves all extremities and no focal motor deficits Psych Appearance: grossly normal Course Vital Signs Vital signs: Vital Signs Temperature 98.0 F 01/11/25 02:34 Pulse Rate 82 01/11/25 02:34 Respiratory Rate 14 01/11/25 02:34 Blood Pressure 134/80 01/11/25 02:34 Pulse Oximetry 96 01/11/25 02:34 Oxygen Delivery Method Room Air 01/11/25 02:34 Temperature 98.0 F 01/11/25 02:34 Pulse Rate 82 01/11/25 02:34 Respiratory Rate 14 01/11/25 02:34 Blood Pressure 134/80 01/11/25 02:34 Pulse Oximetry 96 01/11/25 02:34 Oxygen Delivery Method Room Air 01/11/25 02:34 MDM - Back Pain/Injury MDM Narrative Medical decision making narrative: patient presents with chronic recurrent right sciatica pain. No neuro deficit. 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 patient and family aware of this mass. Plan to follow up with PCP. Here this AM requesting pain relief. Medicated with morphine and solumedrol. Feeling better and advised to follow up with PCP regarding pain and mass Lab Data Labs: Lab Results 01/11/25 Range/Units 03:14 ESR 9 (<=30) mm/hr Sodium 143 (136-145) mmol/L Potassium 4.1 (3.5-5.1) mmol/L Chloride 104 (98-107) mmol/L Carbon Dioxide 30.5 (21.0-32.0) mmol/L Anion Gap 12.6 BUN 28.0 H (7.0-18.0) mg/dL Creatinine 0.93 (0.55-1.02) mg/dL Est GFR ( Amer) >60 (>=60 mL/min/1.73m^2) Est GFR (Non-Af Amer) 57 L (>=60 mL/min/1.73m^2) BUN/Creatinine Ratio 30.1 Glucose 122 H (74-106) mg/dL Calcium 9.7 (8.5-10.1) mg/dL C-Reactive Protein 1.17 H (<=0.50) mg/dL Discharge Plan Discharge Chief Complaint: Back Pain/Injury Clinical Impression: Sciatica Patient Disposition: Home, Self-Care Prescriptions / Home Meds: No Action alendronate 70 mg tablet 70 mg PO .weekly Rx Instructions: mondays diclofenac sodium 75 mg tablet,delayed release (DR/EC) 75 mg PO BID PRN (Reason: pain) diltiazem HCl 60 mg tablet 60 mg PO DAILY metoprolol tartrate 25 mg tablet 12.5 mg PO BID gabapentin 100 mg capsule 100 mg PO .QHS hydrocodone-acetaminophen 5-325 mg tablet 1 tab PO Q8H PRN (Reason: pain) ondansetron HCl 4 mg tablet 4 mg PO Q6H PRN (Reason: nausea and vomiting) cholecalciferol (vitamin D3) 50 mcg (2,000 unit) tablet 50 mcg PO DAILY cefdinir 300 mg capsule 600 mg PO DAILY Qty: 14 0RF furosemide 40 mg Tablet 40 mg PO QD Qty: 30 11RF isosorbide mononitrate 30 mg Tablet Extended Release 24 Hr 30 mg PO QD Qty: 30 11RF magnesium oxide 400 mg (241.3 mg magnesium) Tablet 400 mg PO BID Qty: 60 11RF gabapentin 300 mg Capsule 300 mg PO QHS Qty: 30 11RF Rx Instructions: Plus the 100 mg in the am tramadol 50 mg Tablet 50 mg PO Q8H PRN (Reason: Pain Scale 7-10) 7 Days Qty: 21 0RF levothyroxine 25 mcg Tablet 25 mcg PO ACB Qty: 30 11RF pantoprazole 40 mg Tablet,Delayed Release (Dr/Ec) 40 mg PO DAILY Qty: 30 11RF Entresto 24-26 mg Tablet 1 tab PO BID Qty: 60 11RF prednisone 10 mg tablet 30 mg PO DAILY Qty: 20 0RF Rx Instructions: 3/day for 3 days, 2/day for 3 days, 1/day for 3 days, 1/2 /day for 4 days simvastatin 10 mg tablet 10 mg PO QPM warfarin 2.5 mg tablet 2.5 mg PO DAILY Patient Comments: FRIDAY THRU FRIDAY Print Language: Jordanian Instructions: Sciatica (ED) Additional Instructions: followup with Dr Rayo regarding your pain and mass seen on your MRI Referrals: James Rayo MD [Primary Care Provider, Family Practice] - 1 week Discharge Date/Time: 01/11/25 04:51
[2025-01-11] MEDS: MORPHINE SULFATE 4 MG/ML VIAL IV (03:20)
[2025-01-11] MEDS: METHYLPREDNISOLONE SOD SUCC PF 125 MG/2 ML VIAL IVP (03:20)
[2025-01-11 03:39] LABS: Erythrocyte Sedimentation Rate 9 mm/hr (<=30)
[2025-01-11 03:43] LABS: Anion Gap 12.6; BUN Creatinine Ratio 30.1; C Reactive Protein 1.17 mg/dL (<=0.50); Calcium 9.7 mg/dL (8.5-10.1); Carbon Dioxide 30.5 mmol/L (21.0-32.0); Chloride 104 mmol/L (98-107); Estimated GFR (African America >60 (>=60 mL/min/1.73m^2); Estimated GFR (Non-African Ame 57 (>=60 mL/min/1.73m^2); Glucose 122 mg/dL (74-106); Potassium 4.1 mmol/L (3.5-5.1); Sodium 143 mmol/L (136-145)
== END 2025-01-11 04:51 | disposition home or self-care (01) ==
PROVIDERS: Emergency Provider Internal Medicine; PCP Family Medicine
DX: M54.31 Sciatica, right side (principal); M79.604 Pain in right leg; R22.2 Localized swelling, mass and lump, trunk
CPT/HCPCS: 36415; 80048; 85652; 86140; 96374; 96375; 99284; J2270; J2919